=== PATIENT | female | born 1985 | race Caucasian/White ===

== ENCOUNTER → 2022-08-23 13:41 | Outpatient (BNVA) | payer OTHER, SELFPAY | PROVIDERS: PCP Internal Medicine; Visit Provider Student in an Organized Health Care Education/Training Program | DX: M79.7 Fibromyalgia (principal); M47.817 Spondylosis without myelopathy or radiculopathy, lumbosacral region | CPT/HCPCS: 99202 ==

== ENCOUNTER 2023-09-11 08:52 | Outpatient (AMB) | payer OTHER, SELFPAY ==
--- NOTE | 2023-09-11 08:56 | MHC.PC.OV ---
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 Patient also states it has been a while since she got diabetes checked. Patient states that shes been kind of hard of hearing lately and would like her ears checked. [employer] Required: No Accompanied by: Self / Same As Patient Allergies gabapentin [From NEURONTIN] Allergy (Unknown, Unverified 09/13/22 14:11) ANAPHYLAXIS midazolam [From VERSED] Allergy (Unknown, Unverified 09/13/22 14:11) ANAPHYLAXIS ketorolac [From Toradol] Adverse Reaction (Intermediate, Verified 09/13/22 14:11) Hives latex Adverse Reaction (Intermediate, Verified 09/13/22 14:11) Rash Sulfa (Sulfonamide Antibiotics) Adverse Reaction (Intermediate, Verified 09/11/23 09:24) Rash Tobacco use date assessed: 09/11/23 Dental Screening Dental Screen Date: 09/11/23 Did you have a dental visit in the last 12 months?: Yes Did you have a dental problem in the last 6 months where you did not have access to dental care?: No Was dental information given to patient?: Patient has dentist HPI HPI Comments History of Present Illness Details 37-year-old female presents to [facility]. She was last evaluated by her former PCP, [facility], in February 2023. She notes she has not had routine blood work done in over a year. She has past medical history significant for diabetes, hypertension, fibromyalgia, DJD of spine, IBS, bipolar, anxiety, depression, vitamin B deficiency, vitamin-D deficiency, and epilepsy. She has vagus nerve stimulator implanted in her left upper chest for epilepsy. She is followed by neurology at [facility] and requests a referral to [facility] neurology. She is also followed by [facility] GI and requests a referral to [facility] GI related to IBS. She notes that she is followed by a psychiatrist and therapist at [facility]. She sees her psychiatrist every three months and her therapist weekly. Her psychiatrists manages her psychotropic medications. She was followed by [facility] Rheumatology at [facility]. She has not seen a specialist for her DJD. She notes that she generally makes healthy dietary changes and walks daily for exercise. She states she lost 18 lb in the past 3 months. She wants to be referred to weight management. She notes that she was on metformin but experienced diarrhea, therefore, the medication was discontinued. [facility] Medical History (Updated 09/11/23 @ 12:01 by Preeti Souza CNP) Memory loss due to medical condition Hypertension High cholesterol C. difficile colitis Neuroforaminal stenosis of lumbar spine Hidradenitis suppurativa Degenerative joint disease of spine Bipolar disorder Depression Anxiety Type 2 diabetes mellitus Epilepsy Fibromyalgia, primary Migraine Surgical History (Updated 09/11/23 @ 09:34 by Harper Shannon [facility]) Status post surgical removal of malignant neoplasm of skin Status post placement of VNS (vagus nerve stimulation) device History of eye surgery Hx of endoscopy History of laparoscopic appendectomy H/O wisdom tooth extraction Hx of tubal ligation Hx of tonsillectomy History of total hysterectomy with bilateral salpingo-oophorectomy (BSO) Hx of colonoscopy Hx laparoscopic cholecystectomy History of fundoplication Hx of section Family History (Updated 09/11/23 @ 09:35 by Harper Shannon [facility]) Paternal Grandmother Rheumatoid arthritis Thyroid cancer Maternal Grandmother Arthritis Myocardial infarction Ovarian cyst Thyroid disease Cancer Paternal Uncle Colon cancer Mother Ovarian cyst Father Diabetes Depression Hypertension High cholesterol Skin cancer Maternal Grandfather FH: prostate cancer Paternal Grandfather Bipolar 1 disorder Social History Housing: Other ([place]) Patient Tobacco Use Status: Former Tobacco user e-Cigarette/Vaping Use: Never Used service: No Current occupational status: disabled Cognitive needs: No Hearing needs: Yes Vision needs: No Questionnaire PHQ-9 Over the last 2 weeks, how often have you been bothered by any of the following problems? 1. Little interest or pleasure in doing things: several days 2. Feeling down, depressed, or hopeless: several days 3. Trouble falling or staying asleep, or sleeping too much: several days 4. Feeling tired or having little energy: several days 5. Poor appetite or overeating: several days 6. Feeling bad about yourself - or that you are a failure or have let yourself or your family down: several days 7. Trouble concentrating on things, such as reading the newspaper or watching television: several days 8. Moving or speaking so slowly that other people could have noticed. Or the opposite - being so fidgety or restless that you have been moving around a lot more than usual: several days 9. Thoughts that you would be better off or of hurting yourself in some way: several days Total score: 9 Depression Screening Interpretation: Positive Depression Screening Follow-up: Existing condition and In treatment Depression Screening Done: Yes [id number] - PHQ-9 Billing: Yes Source: Developed by Drs. Ronnie Pelayo, Isabella Yadav, Jose A Can and colleagues, with an educational darline from [employer]. Thrive Questionnaire Date Thrive assessed: 09/11/23 I am a: Patient What is your living situation today?: I have a steady place to live Within the past 12 months, did the food you bought not last and you didn't have the money to get more?: Never true Within the past 12 months, did you worry whether your food would run out before you got money to buy more?: Never true Do you have trouble paying for medicines?: No Do you have trouble getting transportation to medical appointments?: Yes Do you have trouble paying your heating and electricity bill?: No Do you have trouble taking care of your child, family member or friend?: No Do you have trouble with day-to-day activities such as bathing, preparing meals, shopping, managing finances, etc.?: No Are you currently unemployed and looking for a job?: No Are you interested in more education?: No Please select the resources that you would like help with: None CONCEPCION-7 AMB Questionnaire CONCEPCION-7 Date CONCEPCION - 7 assessed: 09/11/23 Feeling nervous, anxious, or on edge: 1 = Several days Not being able to stop or control worryin = Several days Worrying too much about different things: 1 = Several days Trouble relaxin = Several days Being so restless that it is hard to sit still: 1 = Several days Becoming easily annoyed or irritable: 1 = Several days Feeling afraid as if something awful might happen: 1 = Several days Total CONCEPCION-7 score (0-4 normal; 5-9 mild; 10-14 moderate; 15-21 severe): 7 Source: Developed by Drs. Ronnie Pelayo, Isabella Yadav, Jose A Can and colleagues, with an educational darline from [employer]. CONCEPCION-7 Assessment Billing CONCEPCION-7 Assessment Tool: CONCEPCION-7 Assessment 96072 Review of Systems Const Details: Const Denies chills, Denies fatigue, Denies fever(s), Denies headache(s) and Denies weakness ENT Denies dizziness and Denies headache(s) Card Denies chest pain, Denies lightheadedness, Denies dyspnea and Denies other (Palpitations) Resp Denies cough, Denies dyspnea, Denies wheezing and Denies other ( shortness of breath) GI Denies abdominal pain, Denies melena, Denies hematochezia, Denies change in bowel habits, Denies dyspepsia and Denies nausea Denies hematuria and Denies dysuria Musc Denies abnormal gait, Denies myalgias, Denies arthralgias, Denies numbness and Denies tingling Skin/Breast Denies rash, Denies unusual bruising and Denies wounds Neuro Denies abnormal gait, Denies dizziness, Denies headache(s), Denies memory loss, Denies numbness, Denies Sensory deficit (Neuro), Denies tingling and Denies weakness Psych Denies anxiety, Denies depression, Denies memory loss Endo Denies cold intolerance, Denies fatigue, Denies heat intolerance, Denies polydipsia and Denies polyuria Aller/Immun Denies wheezing Physical exam (Primary Care) Vital Signs: Last Vital Signs Temp 97.6 F 09/11/23 08:59 Pulse 99 09/11/23 08:59 Resp 13 09/11/23 08:59 BP 128/78 09/11/23 08:59 Pulse Ox 98 09/11/23 08:59 Oxygen Delivery Method Room Air 09/11/23 08:59 BMI result Body Mass Index 52.9 Tobacco/Smoking Status: Tobacco use Status Tobacco use date assessed 09/11/23 09/11/23 09:26 Patient Tobacco Use Status Former Tobacco user 09/11/23 08:58 e-Cigarette/Vaping Use Never Used 09/11/23 09:26 PHQ-9: PHQ-9 Score PHQ-9: Total score 9 09/11/23 09:43 Depression Screening Interpretation: Positive Depression Screening Follow-up: Existing condition and In treatment Thrive Assessment: Date of Thrive Assessment Date Thrive assessed 09/11/23 09/11/23 09:28 Const Other: General: no acute distress and well developed Nutritional Appearance: well nourished Orientation/consciousness: patient oriented x3 HENMT Head is normocephalic Impacted cerumen of both ears occluding the TMs Nasal turbinates and oropharynx are pink and moist Sinuses are nontender with palpation No auricular or cervical lymphadenopathy Eyes General: appearance normal, both eyes and all related structures Pupils: Equal, round and reactive pupils present EOM: EOMs intact bilaterally Resp Effort & Inspection: normal respiratory effort Auscultation: clear to auscultation bilaterally Cardio Rate: regular rate Rhythm: regular rhythm Heart sounds: S1 normal heart sound present, S2 normal heart sound present, no gallops, no murmurs and no rubs GI Palpation (GI): No Abdominal aortic bruit present, Soft to palpation, nontender, No hepatosplenomegaly present and No Rebound tenderness present Auscultation: normal bowel sounds General: Yes no CVA tenderness Back/Spine/Pelvis Back: no CVA tenderness Cervical Spine: cervical ROM normal and No Cervical spine tenderness Thoracic/Lumbar Spine: thoraco-lumbar ROM normal, No pain with thoraco-lumbar ROM, No thoracic spinal tenderness and No lumbar spinal tenderness Extrem General: Yes normal to inspection, No edema and No calf tenderness Skin General: warm and dry. Normal skin color. Normal skin turgor Lesions: Skin tags to upper chest, back, and anterior and posterior neck Rashes: no rashes Trauma: no lacerations or abrasions Wounds: no wounds Nails: normal Neuro General: patient oriented x3, gait normal and no focal neuro deficit Cranial nerves: Yes Equal, round and reactive pupils present Cognition (Neuro): normal cognition Gait exam (Neuro): Normal gait present Sensory Exam: No Sensory deficit (Neuro) Psych Appearance: grossly normal Affect: normal affect Attitude: cooperative Thought process: Normal thought process present Results AMB Hemoglobin A1c AMB Hemoglobin A1c 8.8 % Last Edit by Harper Shannon CMA on 09/11/23 09:37 Results Reviewed Results Reviewed: Laboratory Last Values Hgb A1c (Clinic) 8.8 % (4.0-6.0) H 09/11/23 09:36 Assessment and Plan Assessment & Plan (1) Hypertension: Code(s): I10 - Essential (primary) hypertension Qualifiers: Hypertension type: primary hypertension Qualified Code(s): I10 - Essential (primary) hypertension Plan: BP is 128/78, within goal of less than 130/70 Continue to take Lisinopril as prescribed Low sodium diet encouraged Will continue to monitor Follow up in 1 month or return soon with symptoms or concerns Verbalized understanding and agreed with the treatment plan (2) Type 2 diabetes mellitus: Code(s): E11.9 - Type 2 diabetes mellitus without complications Qualifiers: Diabetes mellitus usp insulin use: without usp use Diabetes mellitus complication status: without complication Qualified Code(s): E11.9 - Type 2 diabetes mellitus without complications Plan: A1c is 8.8% today, above goal of less than 7.0% Trulicity increased from 0.75 mg weekly to 1.5 mg weekly. Administer as prescribed Continue with Lantus 34 units every night ADA diet and routine exercise encouraged Advised to monitor fasting and random glucose daily, record readings, and bring to next appointment Follow-up in 1 month or return sooner with symptoms or concerns Verbalized understanding and agreed with treatment plan. (3) High cholesterol: Code(s): E78.00 - Pure hypercholesterolemia, unspecified Plan: Continue to take fenofibrate as prescribed Will check lipid panel and make changes to her care plan as needed Advised to limit foods high in saturated fat and avoid foods high trans fat Routine exercise encouraged Verbalized understanding and agreed with treatment plan. (4) Epilepsy: Code(s): G40.909 - Epilepsy, unspecified, not intractable, without status epilepticus Plan: She has vagus nerve stimulator implanted in her left upper chest for epilepsy. She is also on lacosamide 150 mg twice Daily She is followed by neurology at [facility] and requests a referral to Dr. Reynolds, [facility] neurology, whom she previously followed. Continue with current treatment regimen Referred to [facility]. Reynolds at [facility] Return with symptoms or concerns Verbalized understanding and agreed with treatment plan. (5) Migraine: Code(s): G43.909 - Migraine, unspecified, not intractable, without status migrainosus Plan: Reports history of migraine. On naratriptan Continue with current treatment regimen Referred to Dr. Reynolds, [facility] Return with symptoms or concerns Verbalized understanding and agreed with treatment plan. (6) Fibromyalgia, primary: Code(s): M79.7 - Fibromyalgia Plan: Reports history of fibromyalgia, was followed by [facility] Rhe[facility] She takes ibuprofen and cyclobenzaprine with some improvement Advised to continue with current treatment regimen Cold/Warm compresses encouraged Return with worsening or new symptoms Verbalized understanding and agreed with treatment plan. (7) Degenerative joint disease of spine: Code(s): M47.9 - Spondylosis, unspecified Qualifiers: Spinal osteoarthritis complication: without myelopathy or radiculopathy Spinal region: lumbosacral Qualified Code(s): M47.817 - Spondylosis without myelopathy or radiculopathy, lumbosacral region Plan: Reports history of DJD of spine with constant pain throughout her spine. She has never been evaluated by career placement specialist Cervical, thoracic, and lumbar spine tenderness to palpation She takes ibuprofen and cyclobenzaprine with some improvement Advised to continue with current treatment regimen Cold/Warm compresses encouraged Referred to [facility] [place] Return with worsening or new symptoms Verbalized understanding and agreed with treatment plan. (8) Pernicious anemia: Code(s): D51.0 - Vitamin B12 deficiency anemia due to intrinsic factor deficiency Plan: Reports history of pernicious anemia. She is on vitamin B12 1000 mcg injection monthly Continue with current regimen Will check vitamin B12 and folate levels and make changes to her care plan as needed Verbalized understanding and agreed with treatment plan. (9) Vitamin D deficiency: Code(s): E55.9 - Vitamin D deficiency, unspecified Plan: Reports history of vitamin-D deficiency. She is on vitamin D3 2000 units daily Continue with current regimen Will check vitamin D3 level and make changes to her care plan as needed Verbalized understanding and agreed with treatment plan. (10) Anxiety: Code(s): F41.9 - Anxiety disorder, unspecified Plan: CONCEPCION-7 in PHQ-9 scores revealed mild anxiety and depression Risperidone, lorazepam, clonazepam, and escitalopram as prescribed Routine exercise encouraged Continue follow-up with psychiatrist and therapist as planned Return with worsening or new symptoms Verbalized understanding and agreed with treatment plan (11) Depression: Code(s): F32.A - Depression, unspecified Plan: As above (12) Bipolar disorder: Code(s): F31.9 - Bipolar disorder, unspecified Plan: As above (13) Impacted cerumen of both ears: Code(s): H61.23 - Impacted cerumen, bilateral Plan: Impacted cerumen of both ears occluding the TMs Reports decreased hearing of both ears. This is likely due to cerumen impaction Advised to schedule appointment to have cerumen removed Verbalized understanding and agreed with the plan. (14) IBS (irritable bowel syndrome): Code(s): K58.9 - Irritable bowel syndrome without diarrhea Plan: She request a referral to [facility] GI related to history of IBS. No acute symptoms Continue with dicyclomine, loperamide, and omeprazole as prescribed Referred to [facility] [place] Return with symptoms or concerns Verbalized understanding and agreed with treatment plan. (15) Morbid obesity with BMI of 50.0-59.9, adult: Code(s): E66.01 - Morbid (severe) obesity due to excess calories; Z68.43 - Body mass index [BMI] 50.0-59.9, adult Plan: She notes that she generally makes healthy dietary changes and walks daily for exercise. She states she lost 18 lb in the past 3 months. She currently weighs 348 lb, BMI is 52.9 Healthy diet and routine exercise instructed and encouraged Referred to [facility] [place] management Return with symptoms or concerns Verbalized understanding and agreed with treatment plan. (16) Laboratory tests ordered as part of a complete physical exam (CPE): Code(s): Z00.00 - Encounter for general adult medical examination without abnormal findings Plan: Fasting labs ordered as part of a complete physical exam. Advised to fast for at least 10 hours before getting labs drawn. May drink water Verbalized understanding and agreed with treatment plan. Orders: Orders TSH reflex Free T4 Today Z00.00 - Encounter for general adult medical examination without abnormal findings UA CC w/rflx Micro + Cult Today Z00.00 - Encounter for general adult medical examination without abnormal findings AMB Hemoglobin A1c Today Z13.9 - Encounter for screening, unspecified Vitamin D 25-OH Total Today E55.9 - Vitamin D deficiency, unspecified Complete Blood Count Auto Diff Today Z00.00 - Encounter for general adult medical examination without abnormal findings Comprehensive Coleman. Panel Fast Today Z00.00 - Encounter for general adult medical examination without abnormal findings Lipid Panel Today Z00.00 - Encounter for general adult medical examination without abnormal findings Vitamin B12 and Folate Today D51.0 - Vitamin B12 deficiency anemia due to intrinsic factor deficiency Referrals Neurology Referral G40.909 - Epilepsy, unspecified, not intractable, without status epilepticus, G43.909 - Migraine, unspecified, not intractable, without status migrainosus Gastroenterology Referral K58.9 - Irritable bowel syndrome without diarrhea Neurosurgery Referral M47.9 - Spondylosis, unspecified Medications: New syringe with needle, safety As directed 100 ea 0RF dulaglutide (Trulicity) 1.5 mg (0.5 mL) subcut QWEEK 2 mL 3RF 4 weeks cyanocobalamin (vitamin B-12) 1,000 mcg IM Q4W 2 mL 0RF 30 days omeprazole 40 mg PO DAILY 90 caps 1RF 90 days pen needle, diabetic (BD Ultra-Fine Short Pen Needle) As directed 100 ea 3RF promethazine 10-20 MLby mouth every 6 hours as needed(nausea). 12.5 mg (10 mL) PO Q6H PRN 473 mL 0RF nausea and vomiting Coding Level of Care Code New Pt Level 5 (43659) Diagnoses Primary hypertension I10 Hypertension type: primary hypertension Type 2 diabetes mellitus without complication, without long-term current use of insulin E11.9 Diabetes mellitus long term care phlebotomist insulin use: without long term care phlebotomist use Diabetes mellitus complication status: without complication High cholesterol E78.00 Epilepsy G40.909 Migraine G43.909 Fibromyalgia, primary M79.7 Spondylosis of lumbosacral region without myelopathy or radiculopathy M47.817 Spinal osteoarthritis complication: without myelopathy or radiculopathy Spinal region: lumbosacral Pernicious anemia D51.0 Vitamin D deficiency E55.9 Anxiety F41.9 Depression F32.A Bipolar disorder F31.9 Impacted cerumen of both ears H61.23 IBS (irritable bowel syndrome) K58.9 Morbid obesity with BMI of 50.0-59.9, adult E66.01; Z68.43 Laboratory tests ordered as part of a complete physical exam (CPE) Z00.00 Additional Codes CONCEPCION-7 Assessment Billing - CONCEPCION-7 Assessment Tool: CONCEPCION-7 Assessment 21199 ([id number])
[2023-09-11 08:59] VITALS: BP 128/78; PULSE 99; RESP 13; TEMP 36.4; O2SAT 98; BMI 52.9
== END 2023-09-11 10:02 | disposition home or self-care (01) ==
PROVIDERS: PCP Nurse Practitioner Family; Visit Provider Nurse Practitioner Family
DX: I10 Essential (primary) hypertension (principal); E11.9 Type 2 diabetes mellitus without complications; G40.909 Epilepsy, unspecified, not intractable, without status epilepticus; F31.9 Bipolar disorder, unspecified; E78.00 Pure hypercholesterolemia, unspecified; G43.909 Migraine, unspecified, not intractable, without status migrainosus; M79.7 Fibromyalgia; M47.817 Spondylosis without myelopathy or radiculopathy, lumbosacral region; D51.0 Vitamin B12 deficiency anemia due to intrinsic factor deficiency; E55.9 Vitamin D deficiency, unspecified; F41.9 Anxiety disorder, unspecified; F32.A Depression, unspecified
CPT/HCPCS: 83036; 99205

== ENCOUNTER 2023-10-13 08:33 | Emergency (ER) | payer OTHER, SELFPAY ==
[2023-10-13 08:58] VITALS: BP 137/76; PULSE 87; RESP 16; TEMP 37; O2SAT 98; BMI 54.0
[2023-10-13 10:27] LABS: MANUAL DIFF FLAG NO
[2023-10-13 10:35] LABS: Basophils Absolute Auto 0.1 X10*3/uL (0.0-0.2); Basophils Percent Auto 0.8 % (0-2); Eosinophils Absolute Auto 0.3 X10*3/uL (0.0-0.4); Hematocrit 37.5 % (37.0-47.0); Hemoglobin 12.1 g/dl (12.0-16.0); Imm Gran Abs Auto 0.08 X10*3/uL (0.00-0.03); Imm Gran Pct Auto 0.9 % (0.0-0.4); Mean Corpuscular HGB Conc 32.3 g/dl (31.0-35.0); Mean Corpuscular Hemoglobin 27.6 pg (27.0-33.0); Mean Corpuscular Volume 85.4 fL (80.0-98.0); Mean Platelet Volume 9.9 fL (9.4-12.3); Monocytes Absolute Auto 0.5 X10*3/uL (0.1-1.2); Monocytes Percent Auto 5.8 % (2-11); Neutrophils Absolute Auto 5.5 x10*3/uL (2.0-8.3); Neutrophils Percent Auto 65.5 % (45-73); Platelet Count 264 X10*3/uL (160-400); Red Blood Count 4.39 X10*6/uL (4.20-5.50); Red Cell Distribution Width 13.5 % (11.0-16.0); White Blood Count 8.5 X10*3/uL (4.8-10.8)
[2023-10-13 10:47] LABS: Anion Gap 13 (12-20); Blood Urea Nitrogen 9 mg/dL (9-16); Calcium 10.2 mg/dL (8.4-10.2); Carbon Dioxide 25 mmol/L (22-29); Chloride 105 mmol/L (96-108); Creatinine Clr Calc Pharmacy 160.7; Estimated Glomerular Filt Rate > 60; Glucose Random 137 mg/dL (60-115); Potassium 4.3 mmol/L (3.3-5.1); Sodium 139 mmol/L (135-145)
[2023-10-13 11:20] VITALS: BP 132/49; PULSE 104; RESP 20; TEMP 36.4; O2SAT 94
--- NOTE | 2023-10-13 11:38 | ED_ITS ---
HPI - Abdominal Pain General Chief Complaint: Abdominal Pain Stated Complaint: IBS/Vomiting Time Seen by Provider: 10/13/23 11:29 Source: patient Mode of arrival: ambulatory Limitations: no limitations History of Present Illness HPI narrative: Patient states she has IBS and cdiff and needs to be admitted. No vomiting although she states that she cant tolerate her oral medications MD elicited complaint: abdominal pain Pertinent past history: other (colitis) Onset (ago): day(s) Pain Consistency: constant Severity: moderate Quality: cramping Related Data Home Medications Medication Instructions Recorded Confirmed cyclobenzaprine 10 mg tablet 10 mg PO TID 08/23/22 08/23/22 dicyclomine 20 mg tablet 20 mg PO TID 08/23/22 08/23/22 escitalopram oxalate 10 mg tablet 10 mg PO DAILY 08/23/22 08/23/22 (Lexapro) lacosamide 150 mg tablet 150 mg PO BID 08/23/22 08/23/22 loperamide 2 mg tablet 2 mg PO Q6H PRN 08/23/22 08/23/22 clonazepam 0.5 mg tablet 0.5 mg PO DAILY PRN 09/13/22 albuterol sulfate 90 mcg/actuation inhalation 09/11/23 aerosol inhaler (Ventolin HFA) cholecalciferol (vitamin D3) 50 50 mcg PO DAILY 09/11/23 mcg (2,000 unit) capsule fenofibrate nanocrystallized 145 mg PO 09/11/23 mg tablet ibuprofen 600 mg tablet 600 mg PO Q8H PRN 09/11/23 insulin glargine 100 unit/mL (3 34 unit subcut QPM 09/11/23 mL) subcutaneous pen (Lantus Solostar U-100 Insulin) lorazepam 1 mg tablet 1 mg PO DAILY PRN 09/11/23 melatonin 3 mg tablet 6 mg PO BEDTIME PRN 09/11/23 naratriptan 1 mg tablet 1 mg PO DAILY PRN 09/11/23 risperidone 3 mg tablet 3 mg PO BEDTIME 09/11/23 Previous Rx's Medication Instructions Recorded cyanocobalamin (vitamin B-12) 1,000 mcg IM Q4W 30 days #2 mL 09/11/23 1,000 mcg/mL injection solution dulaglutide 1.5 mg/0.5 mL 1.5 mg (0.5 mL) subcut QWEEK 4 09/11/23 subcutaneous pen injector weeks #2 mL (Trulicity) omeprazole 40 mg capsule,delayed 40 mg PO DAILY 90 days #90 caps 09/11/23 release pen needle, diabetic 31 gauge x #100 ea 09/11/23 5/16 (BD Ultra-Fine Short Pen Needle) promethazine 6.25 mg/5 mL oral 12.5 mg (10 mL) PO Q6H PRN nausea 09/11/23 syrup and vomiting #473 mL syringe with needle, safety 3 mL #100 ea 09/11/23 23 gauge x 1 lisinopril 40 mg tablet 40 mg PO DAILY 90 days #90 tabs 09/25/23 pregabalin 100 mg capsule 200 mg (2 x 100 mg) PO BID 30 days 09/25/23 #120 caps ondansetron 4 mg disintegrating 4 mg PO Q8H 4 days #12 tabs 10/13/23 tablet Allergies Allergy/AdvReac Type Severity Reaction Status Date / Time gabapentin [From NEURONTIN] Allergy Unknown ANAPHYLAXIS Unverified 09/13/22 14:11 midazolam [From VERSED] Allergy Unknown ANAPHYLAXIS Unverified 09/13/22 14:11 ketorolac [From Toradol] AdvReac Intermediate Hives Verified 09/13/22 14:11 latex AdvReac Intermediate Rash Verified 09/13/22 14:11 Sulfa (Sulfonamide AdvReac Intermediate Rash Verified 09/11/23 09:24 Antibiotics) Review of Systems Review of Systems Yes all other systems are reviewed and are negative Denies Sensory deficit (Neuro) PMFSH Past Medical History Medical History Memory loss due to medical condition Hypertension High cholesterol C. difficile colitis Neuroforaminal stenosis of lumbar spine Hidradenitis suppurativa Degenerative joint disease of spine Bipolar disorder Depression Anxiety Type 2 diabetes mellitus Epilepsy Fibromyalgia, primary Migraine Surgical History Status post surgical removal of malignant neoplasm of skin Status post placement of VNS (vagus nerve stimulation) device History of eye surgery Hx of endoscopy History of laparoscopic appendectomy H/O wisdom tooth extraction Hx of tubal ligation Hx of tonsillectomy History of total hysterectomy with bilateral salpingo-oophorectomy (BSO) Hx of colonoscopy Hx laparoscopic cholecystectomy History of fundoplication Hx of section Family History Family History Paternal Grandmother Rheumatoid arthritis Thyroid cancer Maternal Grandmother Arthritis Myocardial infarction Ovarian cyst Thyroid disease Cancer Paternal Uncle Colon cancer Mother Ovarian cyst Father Diabetes Depression Hypertension High cholesterol Skin cancer Maternal Grandfather FH: prostate cancer Paternal Grandfather Bipolar 1 disorder Social History Housing: Other (Trailer) Patient Tobacco Use Status: Former Tobacco user e-Cigarette/Vaping Use: Never Used Advance Directives: No service: No Current occupational status: disabled Cognitive needs: No Hearing needs: Yes Vision needs: No Physical Exam ED Vital Signs: Vital Signs - 24 hr 10/13/23 08:58 10/13/23 11:20 10/13/23 12:04 Temperature 98.6 F 97.6 F Pulse Rate 87 104 H 95 Respiratory Rate 16 20 15 Blood Pressure 137/76 132/49 L 155/94 H Pulse Oximetry 98 94 96 Oxygen Delivery Method Room Air Room Air Room Air BMI result Body Mass Index 54.0 Const Other: obese female in no acute distress Orientation/consciousness: oriented to person and patient oriented x3 Limitations: no limitations HENMT Head: Yes normal to inspection Ears: external ears normal General nose exam: Normal external nose present Mouth: Normal oral and palatal mucosa present and oropharynx normal Throat: Yes posterior oropharynx normal Eyes General: appearance normal, both eyes and all related structures Neck Neck: Yes normal visual inspection Chest Chest palpation & inspection: normal inspection of the chest Resp Auscultation: clear to auscultation bilaterally Cardio Jugular venous distension: no JVD Rate: regular rate Rhythm: regular rhythm Heart sounds: S1 normal heart sound present and S2 normal heart sound present GI Inspection: Yes normal to inspection Palpation (GI): Soft to palpation, nontender and No hepatosplenomegaly present Auscultation: normal bowel sounds General: Yes no CVA tenderness Back/Spine/Pelvis Back: no CVA tenderness Skin General skin exam: no rashes or lesions noted Neuro General: oriented to person and patient oriented x3 Cranial nerves: Yes CN's II-XII intact bilaterally Motor exam (neuro): 5/5 motor strength present throughout Sensory Exam: No Sensory deficit (Neuro) Extrem General: Yes normal to inspection Psych Appearance: grossly normal Course Reevaluation(s) Reevaluation #1: Patient states she cant produce a bowel movement. Will send home with orders for GI panel and cdiff and discharge on zofran. Labs at this point look normal and abdominal exam normal with normal vitals Time: 13:25 Medical Decision Making Differential Diagnosis Differential Diagnoses: The differential diagnosis associated with the presentation includes (IBS flair, cdiff colitis, viral colitis were all considered) Admission/Observation Consideration of admission/observation: Escalation of care including admission/observation considered (upon arrival patient was considered for admission) Lab Data MDM Lab Attestation statement: I reviewed the patient's lab results. 10/13/23 10:16 10/13/23 10:16 Labs: Lab Results 10/13/23 10/13/23 Range/Units 10:16 11:59 WBC 8.5 (4.8-10.8) X10*3/uL RBC 4.39 (4.20-5.50) X10*6/uL Hgb 12.1 (12.0-16.0) g/dl Hct 37.5 (37.0-47.0) % MCV 85.4 (80.0-98.0) fL MCH 27.6 (27.0-33.0) pg MCHC 32.3 (31.0-35.0) g/dl RDW 13.5 (11.0-16.0) % Plt Count 264 (160-400) X10*3/uL MPV 9.9 (9.4-12.3) fL Immature Gran % (Auto) 0.9 H (0.0-0.4) % Neut % (Auto) 65.5 (45-73) % Lymph % (Auto) 24.0 (20-40) % [place] % (Auto) 5.8 (2-11) % Eos % (Auto) 3.0 (0-4) % Baso % (Auto) 0.8 (0-2) % Lymph # (Auto) 2.0 (1.2-4.9) X10*3/uL [place] # (Auto) 0.5 (0.1-1.2) X10*3/uL Eos # (Auto) 0.3 (0.0-0.4) X10*3/uL Baso # (Auto) 0.1 (0.0-0.2) X10*3/uL Abs Immat Gran (auto) 0.08 H (0.00-0.03) X10*3/uL Absolute Neuts (auto) 5.5 (2.0-8.3) x10*3/uL Absolute Nucleated RBC 0.000 (0.0-0.012) X10*3/uL Nucleated RBC % (auto) 0.0 (0.0-0.2) /100WBC Sodium 139 (135-145) mmol/L Potassium 4.3 (3.3-5.1) mmol/L Chloride 105 (96-108) mmol/L Carbon Dioxide 25 (22-29) mmol/L Anion Gap 13 (12-20) BUN 9 (9-16) mg/dL Creatinine 0.77 (0.5-1.4) mg/dL Estim Creat Clear Calc 160.7 Estimated GFR > 60 Random Glucose 137 H (60-115) mg/dL Calcium 10.2 (8.4-10.2) mg/dL Total Bilirubin 0.3 (0.0-1.0) mg/dL Direct Bilirubin 0.1 (0.0-0.5) mg/dL AST 26 (5-31) U/L ALT 28 (0-31) U/L Alkaline Phosphatase 82 (39-117) U/L Total Protein 7.1 (6.5-8.0) g/dL Albumin 4.0 (3.5-5.0) g/dL Lipase 12 (8-78) U/L Urine Color Yellow Urine Appearance Turbid Urine pH 5.5 (5.0-9.0) Ur Specific [place] 1.015 (1.005-1.025) Urine Protein Negative (Neg-Trace) mg/dL Urine Glucose (UA) Negative (Negative) mg/dL Urine Ketones Negative (Negative) mg/dL Urine Blood Negative (Negative) Urine Nitrite Negative (Negative) Ur Leukocyte Esterase Small (1+) H (Negative) Urine RBC 3-5 H (0-2) /HPF Urine WBC 21-50 H (0-5) /HPF Ur Squamous Epith Cells >20 (0-2) /HPF Urine Bacteria 4+ (None Seen) Hyaline Casts 3-5 (0-2) /LPF Tests considered The following testing was considered but not selected: CT of abdomen was considered but patient has normal vitals soft abdomen, normal labs. Prescription Management I considered prescription management with: Antibiotic (at this time no evidence of bacterial infection) Social Determinants Patient?s care significantly limited by Social Determinants of Health including: Other Social Determinant of Health (psychiatric illness/ anxiety) Medications Administered Discontinued Medications Generic Name Dose Route Start Last Admin Trade Name Freq PRN Reason Stop Dose Admin Acetaminophen 975 mg 10/13/23 11:39 10/13/23 11:52 Acetaminophen 325 Mg Tablet PO 10/13/23 11:40 975 mg ONCE ONE Administration Lacosamide 150 mg 10/13/23 11:42 10/13/23 11:52 Lacosamide 100 Mg Tablet PO 10/13/23 11:43 150 mg ONCE ONE Administration Ondansetron HCl 4 mg 10/13/23 11:39 10/13/23 11:52 Ondansetron Odt 4 Mg Tab.Rapdis TRANSLINGU 10/13/23 11:40 4 mg ONCE ONE Administration Discharge Plan Discharge Clinical Impression: Diarrhea, Enteritis Patient Disposition: Home, Self-Care Instructions: Acute Diarrhea (ED), Enteritis (ED) Prescriptions: New ondansetron 4 mg tablet,disintegrating 4 mg PO Q8H 4 Days Qty: 12 0RF No Action lisinopril 40 mg tablet 40 mg PO DAILY 90 Days Qty: 90 1RF pregabalin 100 mg capsule 200 mg PO BID 30 Days Qty: 120 0RF fenofibrate nanocrystallized 145 mg tablet PO ibuprofen 600 mg tablet 600 mg PO Q8H PRN albuterol sulfate [Ventolin HFA] 90 mcg/actuation HFA aerosol inhaler inhalation cholecalciferol (vitamin D3) 50 mcg (2,000 unit) capsule 50 mcg PO DAILY risperidone 3 mg tablet 3 mg PO BEDTIME lorazepam 1 mg tablet 1 mg PO DAILY PRN melatonin 3 mg tablet 6 mg PO BEDTIME PRN naratriptan 1 mg tablet 1 mg PO DAILY PRN Trulicity 1.5 mg/0.5 mL pen injector 1.5 mg subcut QWEEK 28 Days Qty: 2 3RF cyanocobalamin (vitamin B-12) 1,000 mcg/mL solution 1,000 mcg IM Q4W 30 Days Qty: 2 0RF omeprazole 40 mg capsule,delayed release(DR/EC) 40 mg PO DAILY 90 Days Qty: 90 1RF (DME) pen needle, diabetic [BD Ultra-Fine Short Pen Needle] 31 gauge x 5/16 needle See Rx Instructions .ROUTE .MEDSUPPLY Qty: 100 3RF Rx Instructions: As directed promethazine 6.25 mg/5 mL syrup 12.5 mg PO Q6H PRN (Reason: nausea and vomiting) Qty: 473 0RF Rx Instructions: 10-20 MLby mouth every 6 hours as needed(nausea). (DME) syringe with needle, safety 3 mL 23 gauge x 1 syringe See Rx Instructions .Route Qty: 100 0RF Rx Instructions: As directed cyclobenzaprine 10 mg tablet 10 mg PO TID escitalopram oxalate [Lexapro] 10 mg tablet 10 mg PO DAILY lacosamide 150 mg tablet 150 mg PO BID dicyclomine 20 mg tablet 20 mg PO TID loperamide 2 mg tablet 2 mg PO Q6H PRN clonazepam 0.5 mg tablet 0.5 mg PO DAILY PRN insulin glargine [Lantus Solostar U-100 Insulin] 100 unit/mL (3 mL) insulin pen 34 unit subcut QPM
--- OUTSIDE RECORDS SUMMARY | 2023-10-13 11:41 | XMS_ITS | Continuity of Care Document ---
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 Name Role Phone Christopher RIDDLE, Tom Choudhury Primary Care Physician [phone] Encounter [facility] Date(s): 06/30/23 - 07/30/23 [facility] [address], [address], [address] [place] [id number] Attending Physician: Josemanuel Galvez Admitting Physician: AdmtrJosemanuel Referring Physician: Admtr, Ar8 Allergies, Adverse Reactions, Alerts Substance Reaction Severity Status gabapentin Agitation Persistent Moderate Active sulfa drugs rash C/O: itching Persistent Severe Active Toradol C/O: a rash Active Versed 1 dyspnea aggitation throat closes up Persistent Severe Active Latex itchiness Active 1Does fine with Ativan, Valium, Klonopin Immunizations Given and Recorded Vaccine Date Status Refusal Reason pneumococcal 23-valent vaccine 1 08/26/22 Recorded pneumococcal 23-valent vaccine 04/10/17 Given [id number] 12y+ bivalent booster vax 2 08/26/22 Recorded SARS-CoV-2 (COVID-19) mRNA BNT-162b2 vac 10/19/21 Recorded SARS-CoV-2 (COVID-19) mRNA BNT-162b2 vac 04/07/21 Recorded SARS-CoV-2 (COVID-19) mRNA BNT-162b2 vac 03/17/21 Recorded influenza virus vaccine, inactivated 08/12/21 [place] rded 1Result Comment: .5ML IM/LD Lot [id number] [employer] D Exp 08.16.2023 [facility] [phone] 2Result Comment: .3Ml IM/ LD Lot [id number] Exp 10.01.2022 [facility] [phone] Medications Albuterol (Eqv-ProAir HFA) Inhalation, Every 6 hours, 0 Refills, Maintenance, 04/10/23 13:27:00 EDT, Partial fill upon patientrequest if the prescription is for a schedule II opioid drug. Start Date: 04/10/23 Status: Ordered dicyclomine 20 mg oral tablet 1 tablet, By Mouth, 3 times a day, # 90 tablet, 0 Refills, Maintenance, 07/02/23 13:53:00 EDT, [facility] STORE [id number], 173, cm, 05/07/23 13:17:00 EDT, Height, 163.7, kg, 05/07/23 13:17:00 EDT, Dry Weight Start Date: 07/02/23 Status: Ordered escitalopram 10 mg oral tablet 1 tablet = 10 mg, By Mouth, Daily in AM, Maintenance, 11/25/22 17:21:00 EST, Tablet, Partial fill upon patient request if the prescription is for a schedule II opioid drug. Start Date: 11/25/22 Status: Ordered fenofibrate 145 mg oral tablet 1 tablet = 145 mg, By Mouth, Daily in AM, 0 Refills, Maintenance, 02/08/23 10:17:00 EDT, Partial fill upon patient request if the prescription is for a schedule II opioid drug. Start Date: 02/08/23 Status: Ordered Flexeril 10 mg oral tablet 1, tablet, By Mouth, 3 times a day, PRN, Refills 0, Maintenance, for spasm, 04/04/22 22:32:00 EDT, Partial fill upon patient request if the prescription is for a schedule II opioid drug. Start Date: 04/04/22 Status: Ordered hydrOXYzine hydrochloride 25 mg oral tablet 1 tablet = 25 mg, By Mouth, 2 times a day, PRN for anxiety, # 40 tablet, 0 Refills, Maintenance, 04/10/23 13:26:00 EDT, Tablet, Partial fill upon patient request if the prescription is for a scheduleII opioid drug. Start Date: 04/10/23 Status: Ordered lacosamide 150 mg oral tablet See Instructions, TAKE 1 TABLET BY MOUTH TWICE A DAY, # 60 tablet, 1 Refills, Maintenance, 06/11/2313:31:00 EDT, [facility]/pharmacy #[id number], 173, cm, 05/07/23 13:17:00 EDT, Height, 163.7, kg, 05/07/23 13:17:00 EDT, Dry Weight Start Date: 06/11/23 Status: Ordered Lantus 100 u/ml subcutaneous solution = 38 units, Daily at bedtime, 0 Refills, Maintenance, 07/07/21 1:40:00 EDT, Solution, Partial fill upon patient request if the prescription is for a schedule II opioid drug. Start Date: 07/07/21 Status: Ordered lisinopril 40 mg oral tablet 1 tablet = 40 mg, By Mouth, Daily, # 30 tablet, 0 Refills, Maintenance, 04/10/23 13:27:00 EDT, Tablet, Partial fill upon patient request if the prescription is for a schedule II opioid drug. Start Date: 04/10/23 Status: Ordered loperamide 2 mg oral capsule 1, capsule, By Mouth, Every 4 hours, PRN, # 60 capsule, Refills 0, Tot. Refills 0, Maintenance, NEEDED FOR LOOSE STOOLS, 04/21/23 15:34:00 EDT, Route to Pharmacy Electronically, [facility]/pharmacy #[id number], 173, cm, 04/10/23 13:09:00 EDT, Height, 165, kg, 0... Start Date: 04/21/23 Status: Ordered Lyrica 50 mg oral capsule 1 capsule = 50 mg, By Mouth, 2 times a day, 0 Refills, Maintenance, 05/07/23 13:20:00 EDT, Partial fill upon patient request if the prescription is for a schedule II opioid drug. Start Date: 05/07/23 Status: Ordered Risperidone = 0.5 mg, By Mouth, Daily at bedtime, 0 Refills, Maintenance, 03/08/23 11:49:00 EDT, Partial fill upon patient request if the prescription is for a schedule II opioid drug. Start Date: 03/08/23 Status: Ordered risperiDONE 2 mg oral tablet 2 mg, 1, tablet, By Mouth, Daily at bedtime Start Date: 11/25/22 Status: Ordered rizatriptan 10 mg oral tablet See Instructions, TAKE 1 TABLET BY MOUTH ONCE NEEDED FOR MIGRAINE HEADACHES, MAY REPEAT IN 2 HOURS IF RESPONSE UNSATISFACTORY, # 12 tablet, 0 Refills, Maintenance, 07/28/23 8:45:00 EDT, [id number], 173, cm, 05/07/23 13:17:00 EDT, Height, 163.7... Start Date: 07/28/23 Status: Ordered Trulicity Pen 0.75 mg/0.5 mL subcutaneous solution 0.5 mL = 0.75 mg, Subcutaneous Injection, Every week, friday, 0 Refills, Maintenance, 03/08/23 11:42:00 EDT, Solution, Partial fill upon patient request if the prescription is for a schedule II opioid drug. Start Date: 03/08/23 Status: Ordered Vimpat 150 mg oral tablet 1 tablet = 150 mg, By Mouth, 2 times a day, MassPat checked., # 60 tablet, 1 Refills, Maintenance, 04/09/23 7:29:00 EDT, Tablet, [id number], 173, cm, 03/21/23 13:36:00 EDT, Height, 161, kg, 03/21/23 13:36:00 EDT, Dry Weight Start Date: 04/09/23 Stop Date: 06/08/23 Status: Ordered Problem List Condition Confirmation Course Effective Dates Status Health St atus Informant Depression Confirmed Active Intractable diarrhea Confirmed Active Epileptic seizures Confirmed Active Morbid obesity Confirmed Active Seizure Confirmed Active Severe obesity Confirmed Active Social History Social History Type Response Smoking Status Former smoker, quit more than 30 days ago; Interested in cessation: Yes; Patient wants NRT during admission Yes; Type: Cigarettes; Total pack years: 8; Started at age: 18; entered on: 05/06/22 Sex Patient Care team information Care Team Personnel Name: Michelle Fox RN Position: S RN Member Role: Primary Care Nurse Name: Nyasia Cadet NP Position: S Associate Professional Member Role: Primary Care Nurse Address: Address: [address] [place] [id number] Name: Roni Hunt RN Position: S RN Member Role: Primary Care Nurse Name: Roya Jaramillo RN Position: S RN Member Role: Primary Care Nurse Name: My Fonseca NP Position: S Associate Professional Member Role: Lifetime Consulting Provider Address: Address: [address] [place] [address] [address] [facility] [place] [address]- [place] Name: Gomez Daugherty RN Position: [facility] RN Member Role: Primary Care Nurse Name: Paolo Patterson RN Position: [facility] RN Member Role: Primary Care Nurse Name: Clarisa Mederos RN Position: [facility] RN Member Role: Primary Care Nurse Name: Loreta Pitts RN Position: [facility] RN Member Role: Primary Care Nurse Name: Tom White MD Position: Reference Physician Member Role: PCP Address: Address: [address] [place] [address] [place] [address]- [place] Name: Philomena Benavides RN Position: [facility] RN Member Role: Primary Care Nurse Name: Cortney Benavides RN Position: [facility] RN Member Role: Primary Care Nurse Name: Gloria Mims RN Position: [facility] RN Member Role: Primary Care Nurse Name: Stefany Lewis RN Position: [facility] ED RN W/OE and Tasks Member Role: Primary Care Nurse Name: Chiquita Cuevas RN Position: [facility] RN Member Role: Primary Care Nurse Name: Stefany Hamilton RN Position: [facility] Size Tester Member Role: Primary Care Nurse Name: Dee Davila RN Position: [facility] RN Member Role: Primary Care Nurse Name: Natalie Lopez RN Position: [facility] RN Member Role: Primary Care Nurse Name: Juan Diego Anguiano RN Position: [facility] RN Member Role: Primary Care Nurse Address: Address: [address] [place] [id number]- [place] Name: Iwona Jones RN Position: [facility] RN Member Role: Primary Care Nurse Name: Angelika Villa RN Position: [facility] RN Member Role: Primary Care Nurse Name: Brandi Holman RN Position: [facility] OB RN Member Role: Primary Care Nurse Name: Candi Moore RN Position: [facility] SN RN Member Role: Primary Care Nurse Name: Stacy Yadav RN Position: [facility] Size Tester Member Role: Primary Care Nurse Name: Kenney Hodge RN Position: [facility] SN RN Member Role: Primary Care Nurse Name: Lexis Byers RN Position: [facility] RN Member Role: Primary Care Nurse Care Team Related Persons Name: RAMÓN HARRELL Address: [address] [place] [address] Name: RAMÓN CARTAGENA Address: [place] [address] Name: LING WEIR Address: home [address] [place] [address]
--- OUTSIDE RECORDS SUMMARY | 2023-10-13 11:41 | XMS_ITS | Continuity of Care Document ---
Author Name Unknown Organization [facility] Address [address] [facility], [address]r d Floor, [address] [place] [address]- Care Team Providers Care Manufacturing Shift Supervisor Name Role Phone Christopher RIDDLE, Tom Choudhury Primary Care Physician [phone] [place] [facility] [place]22 [place] 12/19/22 [facility] [address], 3[address] Floor, [address] [place] [id number]- Allergies, Adverse Reactions, Alerts Substance Reaction Severity [...] 08/26/22 Recorded pneumococcal 23-valent vaccine 04/10/17 Given [id number] 12y+ bivalent booster vax 2 08/26/22 Recorded SARS-CoV-2 (COVID-19) mRNA BNT-162b2 vac 10/19/21 Recorded SARS-CoV-2 (COVID-19) mRNA BNT-162b2 vac 04/07/21 Recorded SARS-CoV-2 (COVID-19) mRNA BNT-162b2 vac 03/17/21 Recorded influenza virus vaccine, inactivated 08/12/21 Gentry rded Not Given Vaccine Date Status Refusal Reason influenza virus vaccine, inactivated 08/23/20 Not Given Parent Or Guardian Refuses 1Result Comment: .5ML IM/LD Lot [id number] [employer] D Exp 08.16.2023 [facility] [phone] 2Result Comment: .3Ml IM/ LD Lot [id number] Exp 10.01.2022 [facility] [phone] Medications budesonide 3 mg oral delayed release capsule 3 capsule = 9 mg, By Mouth, Daily in AM, Home taper: 3 tabs daily for 3 weeks 2 tabs daily for 3 weeks 1 tab daily for 2 weeks then stop, 0 Refills, Maintenance, 11/27/22 13:53:00 EST, Partial fill upon patient request if the prescription is fo... Start Date: 11/27/22 Status: Ordered busPIRone 7.5 mg oral tablet 1 tablet = 7.5 mg, By Mouth, 2 times a day Start Date: 11/25/22 Status: Ordered carBAMazepine 200 mg oral tablet, extended release By Mouth, Daily, 0 Refills, Maintenance, 11/27/22 13:43:00 EST, ER Tablet, Partial fill upon patient request if the prescription is for a schedule II opioid drug. Start Date: 11/27/22 Status: Ordered carBAMazepine 400 mg oral tablet, extended release By Mouth, Daily at bedtime, Refills 0, Maintenance, 11/27/22 13:42:00 EST, Partial fill upon patient request if the prescription is for a schedule II opioid drug. Start Date: 11/27/22 Status: Ordered dicyclomine 20 mg oral tablet 1 tablet, By Mouth, 3 times a day, # 90 tablet, 0 Refills, Maintenance, 12/09/22 14:29:00 EST, [facility]/pharmacy #1234, 175, cm, 11/27/22 15:01:00 EST, Height, 163.5, kg, 11/24/22 14:49:00 EST, Dry Weight Start Date: 12/09/22 Status: Ordered escitalopram 10 mg oral tablet 1 tablet = 10 mg, By Mouth, Daily in AM, Maintenance, 11/25/22 17:21:00 EST, Tablet, Partial fill upon patient request if the prescription is for a schedule II opioid drug. Start Date: 11/25/22 Status: Ordered ethosuximide 250 mg oral capsule 2 capsule = 500 mg, By Mouth, Daily at bedtime, 0 Refills, Maintenance, 11/25/22 17:22:00 EST, Capsule, Partial fill upon patient request if the prescription is for a schedule II opioid drug. Start Date: 11/25/22 Status: Ordered Flexeril 10 mg oral tablet 1, tablet, By Mouth, 3 times a day, PRN, Refills 0, Maintenance, for spasm, 04/04/22 22:32:00 EDT, Partial fill upon patient request if the prescription is for a schedule II opioid drug. Start Date: 04/04/22 Status: Ordered ibuprofen 600 mg oral tablet 600 mg, 1, tablet, By Mouth, Every 8 hours, PRN, as needed for pain Start Date: 11/25/22 Status: Ordered Lantus 100 u/ml subcutaneous solution = 30 units, Sublingual, Daily at bedtime, 0 Refills, Maintenance, 07/07/21 1:40:00 EDT, Solution, Partial fill upon patient request if the prescription is for a schedule II opioid drug. Start Date: 07/07/21 Status: Ordered lisinopril 20 mg oral tablet 20 mg, 1, tablet, By Mouth, Daily, # 30 tablet, Refills 0, Tot. Refills 0, Maintenance, 11/27/22 13:43:00 EST, Route to Pharmacy Electronically, [facility] In[facility] 3, Partial fill upon patient request if the prescription is for a schedule II opioi... Start Date: 11/27/22 Status: Ordered loperamide 2 mg oral capsule 1, capsule, By Mouth, Every 4 hours, PRN, # 60 capsule, Refills 0, Tot. Refills 0, Maintenance, NEEDED FOR LOOSE STOOLS, 12/09/22 14:29:00 EST, Route to Pharmacy Electronically, [facility]/pharmacy #[id number], 175, cm, 11/27/22 15:01:00 EST, Height, 163.5, kg,... Start Date: 12/09/22 Status: Ordered LORazepam 2 mg oral tablet 1 tablet = 2 mg, By Mouth, Daily at bedtime, for 30 days, MassPat checked, # 30 tablet, 5 Refills, Acute 03/24/23 18:15:00 EDT, 09/25/22 18:15:00 EST, [facility]/pharmacy #1234, 175, cm, 09/15/22 17:17:00 EDT, Height, 160.2, kg, 09/15/22 17:17:00 EDT, Dry We... Start Date: 09/25/22 Stop Date: 03/24/23 Status: Ordered Melatonin 3 mg oral tablet 1-2 tablet, By Mouth, Daily at bedtime Start Date: 11/25/22 Status: Ordered naratriptan 1 mg oral tablet See Instructions, TAKE 1 TABLET BY MOUTH AT ONSET OF HEADACHE, MAY REPEAT ONCE IN 4 HOURS IF NEEDED, # 9 tablet, 1 Refills, Maintenance, 08/26/22 8:54:00 EDT, [facility]/pharmacy #1234, 173, cm, 05/06/22 13:26:00 EDT, Height, 146, kg, 05/06/22 13:26:00 EDT,... Start Date: 08/26/22 Status: Ordered ondansetron 4 mg oral tablet 1 tablet = 4 mg, By Mouth, Every 8 hours, PRN Nausea & Vomiting, # 10 tablet, 0 Refills, Maintenance, 11/27/22 13:45:00 EST, Tablet, [facility] 3, Partial fill upon patient request ifthe prescription is for a schedule II opioid drug., 175... Start Date: 11/27/22 Status: Ordered risperiDONE 2 mg oral tablet 2 mg, 1, tablet, By Mouth, Daily at bedtime Start Date: 11/25/22 Status: Ordered Vimpat 150 mg oral tablet 1 tablet = 150 mg, By Mouth, 2 times a day, MassPat checked., # 60 tablet, 5 Refills, Maintenance, 09/23/22 14:32:00 EST, Tablet, [facility]/pharmacy #1234, 175, cm, 09/15/22 17:17:00 EDT, Height, 160.2, kg, 09/15/22 17:17:00 EDT, Dry Weight Start Date: 09/23/22 Stop Date: 03/22/23 Status: Ordered Vitamin B12 1000 mcg oral tablet 1 tablet = 1,000 mcg, By Mouth, Daily, Maintenance, 11/25/22 17:15:00 EST, Tablet, Partial fill upon patient request if the prescription is for a schedule II opioid drug. Start Date: 11/25/22 Status: Ordered Vitamin D3 2000 intl units oral capsule 1 capsule = 50 mcg, By Mouth, Daily, 0 Refills, Maintenance, 08/19/21 17:16:00 EDT, Capsule, Partial fill upon patient request if the prescription is for a schedule II opioid drug. Start Date: 08/19/21 Status: Ordered Problem List Condition Confirmation Course [...] Team Personnel Name: Michelle Fox RN Position: [facility] RN Member Role: Primary Care Nurse Name: Nyasia Cadet NP Position: [facility] Associate Professional Member Role: Primary Care Nurse Address: Address: [address] [place] [address]- Name: Roni Hunt RN Position: [facility] RN Member Role: Primary Care Nurse Name: Roya Jaramillo RN Position: [facility] RN Member Role: Primary Care Nurse Name: Steve Rose RN Position: [facility] RN Member Role: Primary Care Nurse Name: Tamika Mcguire RN Position: [facility] AMB Nurse Member Role: Primary Care Nurse Name: Gomez Daugherty RN Position: [facility] RN Member Role: Primary Care Nurse Name: Paolo Patterson RN Position: [facility] RN Member Role: Primary Care Nurse Name: Clarisa Mederos RN Position: [facility] RN Member Role: Primary Care Nurse Name: Loreta Pitts RN Position: [facility] RN Member Role: Primary Care Nurse Name: Tom White MD Position: Reference Physician Member Role: PCP Address: Address: [address] [place] [address] [place] [address]- Name: Philomena Benavides RN Position: [facility] RN Member Role: Primary Care Nurse Name: Cortney Benavides RN Position: [facility] RN Member Role: Primary Care Nurse Name: Stefany Lewis RN Position: [facility] [place]E RN W/OE and Tasks Member Role: Primary Care Nurse Name: Chiquita Cuevas RN Position: [facility] RN Member Role: Primary Care Nurse Name: Stefany Hamilton RN Position: [facility] Hospital Square Shear Operator Member Role: Primary Care Nurse Name: Dee Davila RN Position: [facility] RN Member Role: Primary Care Nurse Name: Natalie Lopez RN Position: [facility] RN Member Role: Primary Care Nurse Name: Juan Diego Anguiano RN Position: [facility] RN Member Role: Primary Care Nurse Address: Address: [address] [place] [address]- Name: Iwona Jones RN Position: [facility] RN Member Role: Primary Care Nurse Name: Angelika Villa RN Position: [facility] RN Member Role: Primary Care Nurse Name: Brandi Holman RN Position: [facility] RN Member Role: Primary Care Nurse Name: Candi Moore RN Position: [facility] SN RN Member Role: Primary Care Nurse Name: Stacy Yadav RN Position: [facility] Square Shear Operator Member Role: Primary Care Nurse Name: Kenney Hodge RN Position: [facility] SN RN Member Role: Primary Care Nurse Name: Lexis Byers Position: [facility] RN Member Role: Primary Care Nurse Care Team Related Persons Name: RAMÓN HARRELL Address: home [address] [place] [address] Name: RAMÓN CARTAGENA Address: [place] [address] Name: LING WEIR Address: home [address] [place] [address]
--- OUTSIDE RECORDS SUMMARY | 2023-10-13 11:41 | XMS_ITS | Continuity of Care Document ---
Author Name Unknown Organization [facility] Kelly sherrie Address [address] [place] [address] [address] [place] [address]- Care Team Providers Care Supervisor Kennel Name Role Phone Christopher RIDDLE, Tom Choudhury Primary Care Physician [phone] Encounter [facility] [place] Date(s): 04/11/23 - 05/11/23 [facility] [address] [place], [place] [address] Attending Physician: Josemaneul Galvez Admitting Physician: AdmtrJosemanuel Referring Physician: Admtr, [...] 08/26/22 Recorded pneumococcal 23-valent vaccine 04/10/17 Given [id number] 12y+ bivalent booster vax 2 08/26/22 Recorded SARS-CoV-2 (COVID-19) mRNA BNT-162b2 vac 10/19/21 Recorded SARS-CoV-2 (COVID-19) mRNA BNT-162b2 vac 04/07/21 Recorded SARS-CoV-2 (COVID-19) mRNA BNT-162b2 vac 03/17/21 Recorded influenza virus vaccine, inactivated 08/12/21 Gentry rded Not Given Vaccine Date Status Refusal Reason influenza virus vaccine, inactivated 08/23/20 Not Given Parent Or Guardian Refuses 1Result Comment: .5ML IM/LD Lot [id number] [facility] D Exp 08.16.2023 [facility] [phone] 2Result Comment: .3Ml IM/ LD Lot [id number] Exp 10.01.2022 [facility] [phone] Medications Albuterol (Eqv-ProAir HFA) Inhalation, Every 6 hours, 0 Refills, Maintenance, 04/10/23 13:27:00 EDT, Partial fill upon patientrequest if the prescription is for a schedule II opioid drug. Start Date: 04/10/23 Status: Ordered Augmentin 875 mg-125 mg oral tablet 1 tablet, By Mouth, Every 12 hours, for 10 days, # 20 tablet, 0 Refills, Acute 05/17/23 16:51:00 EDT, 05/07/23 16:51:00 EDT, Tablet, [id number], Partial fill upon patient request if the prescription is for a schedule II opioid drug., 173, cm,... Start Date: 05/07/23 Stop Date: 05/17/23 Status: Ordered dicyclomine 20 mg oral tablet 1 tablet, By Mouth, 3 times a day, # 90 tablet, 0 Refills, Maintenance, 04/15/23 8:59:00 EDT, [facility] STORE [id number], 173, cm, 04/10/23 13:09:00 EDT, Height, 165, kg, 04/10/23 13:09:00 EDT, Dry Weight Start Date: 04/15/23 Status: Ordered doxycycline hyclate 100 mg oral tablet 1 tablet = 100 mg, By Mouth, 2 times a day, for 10 days, # 20 tablet, 0 Refills, Acute 05/17/23 16:51:00 EDT, 05/07/23 16:51:00 EDT, Tablet, [facility]/pharmacy #1234, Partial fill upon patient request if the prescription is for a schedule II opioid drug., 1... Start Date: 05/07/23 Stop Date: 05/17/23 Status: Ordered escitalopram 10 mg oral tablet [...] opioid drug. Start Date: 04/10/23 Status: Ordered ibuprofen 600 mg oral tablet 600 mg, 1, tablet, By Mouth, 4 times a day, # 30 tablet, Refills 0, Tot. Refills 0, Acute 05/16/23 17:03:00 EDT, 05/07/23 17:02:00 EDT, Route to Pharmacy Electronically, [facility]/pharmacy #[id number], Partial fill upon patient request if the prescription is for... Start Date: 05/07/23 Stop Date: 05/16/23 Status: Ordered Lantus 100 u/ml subcutaneous solution [...] 04/21/23 15:34:00 EDT, Route to Pharmacy Electronically, [facility]/pharmacy #[id number], 173, cm, 04/10/23 13:09:00 [...] at bedtime Start Date: 11/25/22 Status: Ordered Trulicity Pen 0.75 mg/0.5 mL [...] 1 Refills, Maintenance, 04/09/23 7:29:00 EDT, Tablet, [facility]/pharmacy #1234, 173, cm, 03/21/23 13:36:00 EDT, Height, [...] Team Personnel Name: Michelle Fox RN Position: [facility] RN Member Role: Primary Care Nurse Name: Nyasia Cadet NP Position: [facility] Associate Professional Member Role: Primary Care Nurse Address: Address: [address] [place] [address]- [place] Name: Roni Hunt RN Position: [facility] RN Member Role: Primary Care Nurse Name: Roya Jaramillo RN Position: [facility] RN Member Role: Primary Care Nurse Name: Tamika Mcguire RN Position: [facility] AMB Nurse Member Role: Primary Care Nurse Name: My Fonseca NP Position: [facility] Associate Professional Member Role: Lifetime Consulting Provider Address: Address: [address] [place], [place] [address] [place] [address]- Name: Gomez Daugherty RN Position: [facility] RN Member Role: Primary Care Nurse Name: Paolo Patterson RN Position: [facility] RN Member Role: Primary Care Nurse Name: Clarisa Mederos RN Position: [facility] RN Member Role: Primary Care Nurse Name: Loreta Pitts RN Position: [facility] RN Member Role: Primary Care Nurse Name: Tom White MD Position: Reference Physician Member Role: PCP Address: Address: [address] [place] [address] [place] [address]- Name: Philomena Benavieds RN Position: [facility] RN Member Role: Primary Care Nurse Name: Cortney Benavides RN Position: [facility] RN Member Role: Primary Care Nurse Name: Gloria Mims RN Position: [facility] RN Member Role: Primary Care Nurse Name: Stefany Lewis RN Position: [facility] ED RN W/OE and Tasks Member Role: Primary Care Nurse Name: Chiquita Cuevas RN Position: [facility] RN Member Role: Primary Care Nurse Name: Stefany Hamilton RN Position: [facility] Sanding Machine Operator Member Role: Primary Care Nurse Name: Dee Davila RN Position: [facility] RN Member Role: Primary Care Nurse Name: Natalie Lopez RN Position: [facility] RN Member Role: Primary Care Nurse Name: Juan Diego Anguiano RN Position: [facility] RN Member Role: Primary Care Nurse Address: Address: [address] [place], [place] [address] [place] [address]- Name: Iwona Jones RN Position: [facility] RN Member Role: Primary Care Nurse Name: Angelika Villa RN Position: [facility] RN Member Role: Primary Care Nurse Name: Brandi Holman RN Position: [facility] OB RN Member Role: Primary Care Nurse Name: Candi Moore RN Position: [facility] SN RN Member Role: Primary Care Nurse Name: Stacy Yadav RN Position: [facility] Hospital Sanding Machine Operator Member Role: Primary Care Nurse Name: Kenney Hodge RN Position: [facility] SN RN Member Role: Primary Care Nurse Name: Lexis Byers RN Position: [facility] RN Member Role: Primary Care Nurse Care Team Related Persons Name: RAMÓN HARRELL Address: home [address] [place] [address] Name: RAMÓN CARTAGENA Address: [place] [address] Name: LING WEIR Address: home [address] [place] [address]
--- OUTSIDE RECORDS SUMMARY | 2023-10-13 11:41 | XMS_ITS | Continuity of Care Document ---
Author Name Unknown Organization [facility] Address [address] [facility], [address]r d Floor, [address] [place] [address]- Care Team Providers Care Supervisor Inspection And Testing Name Role Phone Christopher RIDDLE, Tom Choudhury Primary Care Physician Encounter [facility] [place] Date(s): 03/07/23 - 04/06/23 [facility] [address], [address], [address] [place] [id number] Allergies, Adverse Reactions, Alerts Substance Reaction Severity [...] 08/26/22 Recorded pneumococcal 23-valent vaccine 04/10/17 Given [id number] 12y+ bivalent booster vax 2 08/26/22 Recorded SARS-CoV-2 (COVID-19) mRNA BNT-162b2 vac 10/19/21 Recorded SARS-CoV-2 (COVID-19) mRNA BNT-162b2 vac 04/07/21 Recorded SARS-CoV-2 (COVID-19) mRNA BNT-162b2 vac 03/17/21 Recorded influenza virus vaccine, inactivated 08/12/21 Gentry rded Not Given Vaccine Date Status Refusal Reason influenza virus vaccine, inactivated 08/23/20 Not Given Parent Or Guardian Refuses 1Result Comment: .5ML IM/LD Lot [id number] [employer] D Exp 08.16.2023 [facility] [phone] 2Result Comment: .3Ml IM/ LD Lot [id number] Exp 10.01.2022 [facility] [phone] Medications budesonide 3 mg oral delayed release capsule See Instructions, TAKE 3 TABLETS DAILY X3 WEEKS THEN 2 TABS DAILY X3 WEEKS THEN 1 TAB DAILY X2 WEEKS THEN STOP, # 77 capsule, 2 Refills, Maintenance, 03/18/23 9:20:00 EDT, [facility] [id number], 173, cm, 03/12/23 12:51:00 EDT, Height, 161.8, kg, 03/12/23 12... Start Date: 03/18/23 Status: Ordered busPIRone 10 mg oral tablet 10 mg, 1, tablet, By Mouth, 3 times a day, Refills 0, Maintenance, 03/08/23 11:44:00 EDT, Partial fill upon patient request if the prescription is for a schedule II opioid drug. Start Date: 03/08/23 Status: Ordered dicyclomine 20 mg oral tablet 1 tablet, By Mouth, 3 times a day, # 90 tablet, 0 Refills, Maintenance, 02/24/23 8:38:00 EDT, [facility] STORE [id number], 173, cm, 01/27/23 8:03:00 EDT, Height, 164.8, kg, 02/11/23 10:22:00 EDT, Dry Weight Start Date: 02/24/23 Status: Ordered escitalopram 10 mg oral tablet [...] opioid drug. Start Date: 04/04/22 Status: Ordered Lantus 100 u/ml subcutaneous solution = 38 units, Daily at bedtime, 0 Refills, Maintenance, 07/07/21 1:40:00 EDT, Solution, Partial fill upon patient request if the prescription is for a schedule II opioid drug. Start Date: 07/07/21 Status: Ordered loperamide 2 mg oral capsule 1, capsule, By Mouth, Every 4 hours, PRN, # 60 capsule, Refills 0, Maintenance, NEEDED FOR LOOSESTOOLS, 02/24/23 15:54:00 EDT, Route to Pharmacy Electronically, [facility] [id number], 173, cm, 02/25/2312:35:00 EDT, Height, 164.8, kg, 02/11/23 10:22:00... Start Date: 02/24/23 Status: Ordered Lyrica 100 mg oral capsule 2 capsule = 200 mg, By Mouth, 2 times a day, 0 Refills, Maintenance, 02/08/23 10:37:00 EDT, Partialfill upon patient request if the prescription is for a schedule II opioid drug. Start Date: 02/08/23 Status: Ordered naratriptan 1 mg oral tablet See Instructions, TAKE 1 TABLET BY MOUTH AT ONSET OF HEADACHE, MAY REPEAT ONCE IN 4 HOURS IF NEEDED, # 9 tablet, 1 Refills, Maintenance, 08/26/22 8:54:00 EDT, [facility]/pharmacy #1234, 173, cm, 05/06/22 13:26:00 EDT, Height, 146, kg, 05/06/22 13:26:00 EDT,... Start Date: 08/26/22 Status: Ordered Risperidone = 0.5 mg, By [...] 5 Refills, Maintenance, 09/23/22 14:32:00 EST, Tablet, [facility], 175, cm, 09/15/22 17:17:00 EDT, Height, 160.2, kg, 09/15/22 17:17:00 EDT, Dry Weight Start Date: 09/23/22 Stop Date: 03/22/23 Status: Ordered Vitamin D3 50,000 intl units oral capsule 1 capsule = 1,250 mcg, By Mouth, Every Friday, 0 Refills, Maintenance, 02/08/23 10:18:00 EDT, Partial fill upon patient request if the prescription is for a schedule II opioid drug. Start Date: 02/08/23 Status: Ordered Problem List Condition Confirmation Course [...] Team Personnel Name: Michelle Fox RN Position: [facility] RN Member Role: Primary Care Nurse Name: Nyasia Cadet NP Position: [facility] Associate Professional Member Role: Primary Care Nurse Address: Address: [address] [place] [address]- Name: Roni Hunt RN Position: [facility] RN Member Role: Primary Care Nurse Name: Roya Jaramillo RN Position: [facility] RN Member Role: Primary Care Nurse Name: Tamika Mcguire RN Position: [facility] [place] Nurse Member Role: Primary Care Nurse Name: My Fonseca NP Position: S Associate Professional Member Role: Lifetime Consulting Provider Address: Address: [address] [place], [place] [address] [place] [address]- Name: Gomez Daugherty RN Position: [facility] RN Member Role: Primary Care Nurse Name: Paolo Patterson RN Position: [facility] RN Member Role: Primary Care Nurse Name: Clarisa Mederos RN Position: [facility] RN Member Role: Primary Care Nurse Name: Loreta Pitts RN Position: [facility] RN Member Role: Primary Care Nurse Name: Tom White MD Position: Reference Physician Member Role: PCP Address: Address: [address] [place] [address] [place] [address]- Name: Philomena Benavides RN Position: [facility] RN Member Role: Primary Care Nurse Name: Cortney Benavides RN Position: [facility] RN Member Role: Primary Care Nurse Name: Gloria Mims RN Position: [facility] RN Member Role: Primary Care Nurse Name: Stefany Lewis RN Position: [facility] ED RN W/OE and Tasks Member Role: Primary Care Nurse Name: Adia Cuevas RN Position: [facility] RN Member Role: Primary Care Nurse Name: Stefany Hamilton RN Position: [facility] Laborer Golf Course Member Role: Primary Care Nurse Name: Dee Davila RN Position: [facility] RN Member Role: Primary Care Nurse Name: Natalie Lopez RN Position: [facility] RN Member Role: Primary Care Nurse Name: Juan Diego Anguiano RN Position: [facility] RN Member Role: Primary Care Nurse Address: Address: [address] [place] [address]- Name: Iwona Jones RN Position: [facility] RN Member Role: Primary Care Nurse Name: Angelika Villa RN Position: [facility] RN Member Role: Primary Care Nurse Name: Brandi Holman RN Position: [facility] OB RN Member Role: Primary Care Nurse Name: Candi Moore RN Position: [facility] SN RN Member Role: Primary Care Nurse Name: Stacy Yadav RN Position: [facility] [employer]orer Golf Course Member Role: Primary Care Nurse Name: Kenney Hodge RN Position: [facility] SN RN Member Role: Primary Care Nurse Name: Lexis Byers RN Position: [facility] RN Member Role: Primary Care Nurse Care Team Related Persons Name: ADIA HARRELLBASSAM Address: home [address] [place] [address] Name: RAMÓN CARTAGENA Address: [place] [address] Name: LING WEIR Address: [address] [place] [address]
--- OUTSIDE RECORDS SUMMARY | 2023-10-13 11:42 | XMS_ITS | Continuity of Care Document ---
Author Name Unknown Organization [facility] Kelly sherrie Address [address] [place] [address] D[address] [place] [address]- Care Team Providers Care Senior Insight Manager Name Role Phone Christopher RIDDLE, Tom Choudhury Primary Care Physician [place] [facility] [place] [facility] [place]s): 12/11/22 - 05/11/23 [facility] [address] [place], [place] [address] Attending Physician: Carmen DC, Mary Cerda Allergies, Adverse Reactions, Alerts Substance Reaction Severity [...] 08/26/22 Recorded pneumococcal 23-valent vaccine 04/10/17 Given [id number] 12y+ bivalent booster vax 2 08/26/22 Recorded SARS-CoV-2 (COVID-19) mRNA BNT-162b2 vac 10/19/21 Recorded SARS-CoV-2 (COVID-19) mRNA BNT-162b2 vac 04/07/21 Recorded SARS-CoV-2 (COVID-19) mRNA BNT-162b2 vac 03/17/21 Recorded influenza virus vaccine, inactivated 08/12/21 Gentry rded Not Given Vaccine Date Status Refusal Reason influenza virus vaccine, inactivated 08/23/20 Not Given Parent Or Guardian Refuses 1Result Comment: .5ML IM/LD Lot [id number] [employer] D Exp 08.16.2023 [facility] [phone] 2Result Comment: .3Ml IM/ LD Lot [id number] Exp 10.01.2022 [facility] [phone] Medications Albuterol (Eqv-ProAir HFA) Inhalation, Every 6 hours, 0 Refills, Maintenance, 04/10/23 13:27:00 EDT, Partial fill upon patientrequest if the prescription is for a schedule II opioid drug. Start Date: 04/10/23 Status: Ordered Augmentin 875 mg-125 mg oral tablet 1 tablet, By Mouth, Every 12 hours, for 10 days, # 20 tablet, 0 Refills, Acute 05/17/23 16:51:00 EDT, 05/07/23 16:51:00 EDT, [id number] Partial fill upon patient request if the prescription is for a schedule II opioid drug., 173, cm,... Start Date: 05/07/23 Stop Date: 05/17/23 Status: Ordered dicyclomine 20 mg oral tablet 1 tablet, By Mouth, 3 times a day, # 90 tablet, 0 Refills, Maintenance, 04/15/23 8:59:00 EDT, [id number], 173, cm, 04/10/23 13:09:00 EDT, Height, 165, kg, 04/10/23 13:09:00 EDT, Dry Weight Start Date: 04/15/23 Status: Ordered doxycycline hyclate 100 mg oral tablet 1 tablet = 100 mg, By Mouth, 2 times a day, for 10 days, # 20 tablet, 0 Refills, Acute 05/17/23 16:51:00 EDT, 05/07/23 16:51:00 EDT, [facility], [id number] Partial fill upon patient request [...] 05/07/23 17:02:00 EDT, Route to Pharmacy Electronically, [facility][id number], Partial fill upon patient request if the [...] 04/21/23 15:34:00 EDT, Route to Pharmacy Electronically, [facility]1234, 173, cm, 04/10/23 13:09:00 EDT, Height, [...] 1 Refills, Maintenance, 04/09/23 7:29:00 EDT, Tablet, [facility] #1234, 173, cm, 03/21/23 13:36:00 EDT, Height, [...] Team Personnel Name: Michelle Fox RN [facility] RN Member Role: Primary Care Nurse Name: Nyasia Cadet NP Position: [facility] Associate Professional Member Role: Primary Care Nurse Address: Address: [address] [place] [address]- [place] Name: Roni Hunt RN Position: [facility] RN Member Role: Primary Care Nurse Name: Roya Jaramillo RN Position: [facility] RN Member Role: Primary Care Nurse Name: Tamika Mcguire RN Position: [facility] AMB Nurse Member Role: Primary Care Nurse Name: My Fonseca NP Position: [facility] Associate Professional Member Role: Lifetime Consulting Provider Address: Address: [address] [place], [place] [address] [place] [address]- [place] Name: Gomez Daugherty RN Position: [facility] RN Member Role: Primary Care Nurse Name: Paolo Patterson RN Position: [facility] RN Member Role: Primary Care Nurse Name: Clarisa Mederos RN Position: [facility] RN Member Role: Primary Care Nurse Name: Loreta Pitts RN Position: [facility] RN Member Role: Primary Care Nurse Name: Tom White MD Position: Reference Physician Member Role: PCP Address: Address: [address] [place] [address] [place] [address]- [place] Name: Philomena Benavides RN Position: [facility] RN Member Role: Primary Care Nurse Name: Cortney Benavides RN Position: [facility] RN Member Role: Primary Care Nurse Name: Gloria Mims RN Position: [facility] RN Member Role: Primary Care Nurse Name: Stefany Lewis RN Position: [facility] ED RN W/OE and Tasks Member Role: Primary Care Nurse Name: Chiquita Cuevas RN Position: [facility] RN Member Role: Primary Care Nurse Name: Stefany Hamilton RN Position: [facility] Ergonomics Consultant Member Role: Primary Care Nurse Name: Dee Davila RN Position: [facility] RN Member Role: Primary Care Nurse Name: Natalie Lopez RN Position: [facility] RN Member Role: Primary Care Nurse Name: Juan Diego Anguiano RN Position: [facility] RN Member Role: Primary Care Nurse Address: Address: [address] [place] [address]- [place] Name: Iwona Jones RN Position[facility] RN Member Role: Primary Care Nurse Name: Angelika Villa RN Position: [facility] RN Member Role: Primary Care Nurse Name: Brandi Holman RN Position: [facility] OB RN Member Role: Primary Care Nurse Name: Candi Moore RN Position: [facility] SN RN Member Role: Primary Care Nurse Name: Stacy Yadav RN Position: [facility] Hospital Ergonomics Consultant Member Role: Primary Care Nurse Name: Kenney Hodge RN Position: [facility] SN RN Member Role: Primary Care Nurse Name: Lexis Byers RN Position: [facility] RN Member Role: Primary Care Nurse Care Team Related Persons Name: RAMÓN HARRELL Address: home [address] [place] [address] Name: RAMÓN CARTAGENA Address: [place] [address] Name: LING WEIR Address: home [address] [address] [place] [address]
--- OUTSIDE RECORDS SUMMARY | 2023-10-13 11:42 | XMS_ITS | Continuity of Care Document ---
Author Name Unknown Organization [facility] Address [address] [place] [address] [address], [address] [place] [address]- Care Team Providers Care Special Machine Operator Name Role Phone Christopher RIDDLE, Tom Choudhury Primary Care Physician [place] [facility] [place]): 02/24/23 - 03/26/23 [facility] [address] [place] [address] Drive, [address] [place], [place] [address] Attending Physician: Admdany, Da8 Admitting Physician: Admtr, Ar8 Referring Physician: Admtr, Ar8 Allergies, Adverse Reactions, [...] 08/26/22 Recorded pneumococcal 23-valent vaccine 04/10/17 Given [id number] 12y+ bivalent booster vax 2 08/26/22 Recorded SARS-CoV-2 (COVID-19) mRNA BNT-162b2 vac 10/19/21 Recorded SARS-CoV-2 (COVID-19) mRNA BNT-162b2 vac 04/07/21 Recorded SARS-CoV-2 (COVID-19) mRNA BNT-162b2 vac 03/17/21 Recorded influenza virus vaccine, inactivated 08/12/21 Gentry rded Not Given Vaccine Date Status Refusal Reason influenza virus vaccine, inactivated 08/23/20 Not Given Parent Or Guardian Refuses 1Result Comment: .5ML IM/LD Lot [id number] [facility] D Exp 08.16.2023 [facility] [phone] 2Result Comment: .3Ml IM/ LD Lot [id number] Exp 10.01.2022 [facility] [phone] Medications budesonide 3 mg oral delayed release capsule See Instructions, TAKE 3 TABLETS DAILY X3 WEEKS THEN 2 TABS DAILY X3 WEEKS THEN 1 TAB DAILY X2 WEEKS THEN STOP, # 77 capsule, 2 Refills, Maintenance, 03/18/23 9:20:00 EDT, [id number], 173, cm, 03/12/23 12:51:00 EDT, Height, 161.8, [...] tablet, 0 Refills, Maintenance, 02/24/23 8:38:00 EDT, [facility], 173, cm, 01/27/23 8:03:00 EDT, Height, 164.8, [...] 02/24/23 15:54:00 EDT, Route to Pharmacy Electronically, [facility] ST[facility] 7[facility]27, 173, cm, 02/25/2312:35:00 EDT, Height, 164.8, kg, [...] tablet, 1 Refills, Maintenance, 08/26/22 8:54:00 EDT, [facility]acy #1234, 173, cm, 05/06/22 13:26:00 EDT, Height, [...] 5 Refills, Maintenance, 09/23/22 14:32:00 EST, Tablet, [facility]/pharmacy #1234, 175, cm, 09/15/22 17:17:00 EDT, Height, [...] Team Personnel Name: Michelle Fox RN Position: [facility] RN Member Role: Primary Care Nurse Name: Nyasia Cadet NP Position: [facility] Associate Professional Member Role: Primary Care Nurse Address: Address: [address] [place] [address] Name: Roni Hunt RN Position: [facility] RN Member Role: Primary Care Nurse Name: Roya Jaramillo RN Position: S RN Member Role: Primary Care Nurse Name: Tamika Mcguire RN Position: [facility] AMB Nurse Member Role: Primary Care Nurse Name: My Fonseca NP Position: [facility] Associate Professional Member Role: Lifetime Consulting Provider Address: Address: [address] [facility] [place] [address]- [place] Name: Gomez Daugherty RN Position: [facility] RN Member Role: Primary Care Nurse Name: Paolo Patterson RN Position: [facility] RN Member Role: Primary Care Nurse Name: Clarisa Mederos RN Position: [facility] RN Member Role: Primary Care Nurse Name: Loreta Pitts RN Position: [facility] RN Member Role: Primary Care Nurse Name: Tom White MD Position: Reference Physician Member Role: PCP Address: Address: [address] [place] [address] [place] [address]- [place] Name: Philomena Benavides RN Position: [facility] RN Member Role: Primary Care Nurse Name: Cortney Benavides RN Position: [facility] RN Member Role: Primary Care Nurse Name: Gloria Mims RN Position: [facility] RN Member Role: Primary Care Nurse Name: Stefany Lewis RN Position: [facility] ED RN W/OE and Tasks Member Role: Primary Care Nurse Name: Chiquita Cuevas RN Position: [facility] RN Member Role: Primary Care Nurse Name: Stefany Hamilton RN Position: [facility] Enrollment Clerk Member Role: Primary Care Nurse Name: Dee Davila RN Position: [facility] RN Member Role: Primary Care Nurse Name: Natalie Lopez RN Position: [facility] RN Member Role: Primary Care Nurse Name: Juan Diego Anguiano RN Position: [facility] RN Member Role: Primary Care Nurse Address: Address: [address] [place] [address]- Name: Iwona Jones RN Position: [facility] RN Member Role: Primary Care Nurse Name: Angelika Villa RN Position: [facility] RN Member Role: Primary Care Nurse Name: Brandi Holman RN Position: [facility] OB RN Member Role: Primary Care Nurse Name: Candi Moore RN Position: [facility] SN RN Member Role: Primary Care Nurse Name: Stacy Yadav RN Position: [facility] Enrollment Clerk Member Role: Primary Care Nurse Name: Kenney Hodge RN Position: [facility] SN RN Member Role: Primary Care Nurse Name: Lexis Byers RN Position: [facility] RN Member Role: Primary Care Nurse Care Team Related Persons Name: RAMÓN HARRELL Address: home [address] [place] [address] Name: RAMÓN CARTAGENA Address: [place] [address] Name: LING WEIR Address: home [address] [facility] [facility] [address] [place] [address]
--- OUTSIDE RECORDS SUMMARY | 2023-10-13 11:42 | XMS_ITS | Continuity of Care Document ---
Author Name Unknown Organization [facility] Address [address] [place], [place] [address]julio shin, [address] [place] [address]- Care Team Providers Care [employer]ric[employer] Supervisor Name Role Phone Christopher RIDDLE, Tom Choudhury Primary Care Physician [phone] [place] [facility] [place] 01/09/23 - 02/08/23 [facility] [address] [place] [address] Drive, [address] [place] [address]- Allergies, Adverse Reactions, Alerts Substance Reaction Severity [...] 08/26/22 Recorded pneumococcal 23-valent vaccine 04/10/17 Given [id number] 12y+ bivalent booster vax 2 08/26/22 Recorded SARS-CoV-2 (COVID-19) mRNA BNT-162b2 vac 10/19/21 Recorded SARS-CoV-2 (COVID-19) mRNA BNT-162b2 vac 04/07/21 Recorded SARS-CoV-2 (COVID-19) mRNA BNT-162b2 vac 03/17/21 Recorded influenza virus vaccine, inactivated 08/12/21 Gentry rded Not Given Vaccine Date Status Refusal Reason influenza virus vaccine, inactivated 08/23/20 Not Given Parent Or Guardian Refuses 1Result Comment: .5ML IM/LD Lot [id number] [facility] [employer] D Exp 08.16.2023 [facility] [phone] 2Result Comment: .3Ml IM/ LD Lot [id number] Exp 10.01.2022 [facility] [phone] Medications budesonide 3 mg oral delayed release capsule See Instructions, TAKE 3 TABLETS DAILY X3 WEEKS THEN 2 TABS DAILY X3 WEEKS THEN 1 TAB DAILY X2 WEEKS THEN STOP, # 77 capsule, 2 Refills, Maintenance, 12/24/22 8:57:00 EST, [facility] ST[facility] 34540, 175, cm, 12/22/22 3:33:00 EST, Height, 163.5, kg, 12/17/22 13:... Start Date: 12/24/22 Status: Ordered busPIRone 7.5 mg oral tablet 1 tablet = 7.5 mg, By Mouth, 2 times a day Start Date: 11/25/22 Status: Ordered dicyclomine 20 mg oral tablet 1 tablet, By Mouth, 3 times a day, # 90 tablet, 0 Refills, Maintenance, 12/09/22 14:29:00 EST, [facility]/pharmacy #1234, 175, cm, 11/27/22 15:01:00 EST, Height, 163.5, kg, 11/24/22 14:49:00 EST, Dry Weight Start Date: 12/09/22 Status: Ordered docusate sodium 100 mg oral capsule 100 mg, 1, capsule, By Mouth, 2 times a day, # 20 capsule, Refills 0, Tot. Refills 0, Maintenance, 01/07/23 16:27:00 EST, Route to Pharmacy Electronically, [facility], Partial fill uponpatient request if the prescription is for a schedu... Start Date: 01/07/23 Stop Date: 01/17/23 Status: Ordered escitalopram 10 mg oral tablet 1 tablet = 10 mg, By Mouth, Daily in AM, Maintenance, 11/25/22 17:21:00 EST, Tablet, Partial fill upon patient request if the prescription is for a schedule II opioid drug. Start Date: 11/25/22 Status: Ordered fenofibrate 145 mg oral tablet 1 tablet = 145 mg, By Mouth, Daily, 0 Refills, Maintenance, 02/08/23 10:17:00 EDT, Partial [...] 11/27/22 13:43:00 EST, Route to Pharmacy Electronically, [facility], Partial fill upon patient request if the prescription is for a schedule II opioi... Start Date: 11/27/22 Status: Ordered loperamide 2 mg oral capsule 1, capsule, By Mouth, Every 4 hours, PRN, # 60 capsule, Refills 0, Maintenance, NEEDED FOR LOOSESTOOLS, 01/21/23 16:35:00 EST, Route to Pharmacy Electronically, [facility]ORE [id number], 173, cm, 01/02/2317:14:00 EST, Height, 163.3, kg, 01/02/23 17:14:00... Start Date: 01/21/23 Status: Ordered LORazepam 2 mg oral tablet 1 tablet = 2 mg, By Mouth, Daily at bedtime, for 30 days, MassPat checked, # 30 tablet, 5 Refills, Acute 03/24/23 18:15:00 EDT, 09/25/22 18:15:00 EST, [facility]/pharmacy #1234, 175, cm, 09/15/22 17:17:00 EDT, Height, 160.2, kg, 09/15/22 17:17:00 EDT, Dry We... Start Date: 09/25/22 Stop Date: 03/24/23 Status: Ordered Lyrica 100 mg oral capsule 1 capsule = 100 mg, By Mouth, Daily, 0 Refills, Maintenance, 02/08/23 10:37:00 EDT, Partial fill upon patient request if the prescription is for a schedule II opioid drug. Start Date: 02/08/23 Status: Ordered Melatonin 3 mg oral tablet 1-2 tablet, By Mouth, Daily at bedtime Start Date: 11/25/22 Status: Ordered naratriptan 1 mg oral tablet See Instructions, TAKE 1 TABLET BY MOUTH AT ONSET OF HEADACHE, MAY REPEAT ONCE IN 4 HOURS IF NEEDED, # 9 tablet, 1 Refills, Maintenance, 08/26/22 8:54:00 EDT, [facility]/pharmacy #1234, 173, cm, 05/06/22 13:26:00 EDT, Height, 146, kg, 05/06/22 13:26:00 EDT,... Start Date: 08/26/22 Status: Ordered ondansetron 4 mg oral tablet 1 tablet = 4 mg, By Mouth, Every 8 hours, PRN Nausea & Vomiting, # 15 tablet, 0 Refills, Maintenance, 01/07/23 16:25:00 EST, Tablet, [facility] 3, Partial fill upon patient request ifthe prescription is for a schedule II opioid drug., 173... Start Date: 01/07/23 Stop Date: 01/12/23 Status: Ordered risperiDONE 2 mg oral tablet 2 mg, 1, tablet, By Mouth, Daily at bedtime Start Date: 11/25/22 Status: Ordered Vimpat 150 mg oral tablet 1 tablet = 150 mg, By Mouth, 2 times a day, MassPat checked., # 60 tablet, 5 Refills, Maintenance, 09/23/22 14:32:00 EST, Tablet, [facility]/pharmacy #1234, 175, cm, 09/15/22 17:17:00 EDT, [...] Start Date: 11/25/22 Status: Ordered Vitamin D3 50,000 intl units [...] Team Personnel Name: Michelle Fox RN Position: [facility] RN Member Role: Primary Care Nurse Name: Nyasia Cadet NP Position: [facility] Associate Professional Member Role: Primary Care Nurse Address: Address: [address] [place] [address]- Name: Roni Hunt RN Position: [facility] RN Member Role: Primary Care Nurse Name: Roya Jaramillo RN Position: [facility] RN Member Role: Primary Care Nurse Name: Steve Rose RN Position: [facility] RN Member Role: Primary Care Nurse Name: Tamika Mcguire RN Position: [facility] AMB Nurse Member Role: Primary Care Nurse Name: Gomez Daugherty RN Position: [facility] RN Member Role: Primary Care Nurse Name: Paolo Patterson RN Position: [facility] RN Member Role: Primary Care Nurse Name: Clarisa Mederos RN Position: [facility] RN Member Role: Primary Care Nurse Name: Loreta Pitts RN Position: [facility] RN Member Role: Primary Care Nurse Name: Tom White MD Position: Reference Physician Member Role: PCP Address: Address: [address] [place] [address] [place] [address]- Name: Philomena Benavides RN Position: [facility] RN Member Role: Primary Care Nurse Name: Cortney Benavides RN Position: [facility] RN Member Role: Primary Care Nurse Name: Stefany Lewis RN Position: [facility] ED RN W/OE and Tasks Member Role: Primary Care Nurse Name: Chiquita Cuevas RN Position: [facility] RN Member Role: Primary Care Nurse Name: Stefany Hamilton RN Position: [facility] Tunnel Inspector Member Role: Primary Care Nurse Name: Dee Davila RN Position: [facility] RN Member Role: Primary Care Nurse Name: Natalie Lopez RN Position: [facility] RN Member Role: Primary Care Nurse Name: Juan Diego Anguiano RN Position: [facility] RN Member Role: Primary Care Nurse Address: Address: [address] [place] [address]- Name: Iwona Jones RN Position: [facility] RN Member Role: Primary Care Nurse Name: Angelika Villa RN Position: [facility] RN Member Role: Primary Care Nurse Name: Brandi Holman RN Position: [facility] OB RN Member Role: Primary Care Nurse Name: Candi Moore RN Position: [facility] SN RN Member Role: Primary Care Nurse Name: Stacy Yadav RN Position: [facility] Tunnel Inspector Member Role: Primary Care Nurse Name: Kenney Hodge RN Position: [facility] SN RN Member Role: Primary Care Nurse Name: Lxeis Byers RN Position: [facility] RN Member Role: Primary Care Nurse Care Team Related Persons Name: RAMÓN HARRELL Address: home [address] [address] Name: RAMÓN CARTAGENA Address: [place] [address] Name: LING WEIR Address: home [address] [place] [address]
--- OUTSIDE RECORDS SUMMARY | 2023-10-13 11:42 | XMS_ITS | Continuity of Care Document ---
Author Name Unknown Organization [facility] Address [address] [facility], 3r d Floor, [address] [place] [address]- Care Team Providers Care Environmental Marketing Representative Name Role Phone Christopher RIDDLE, Tom Choudhury Primary [id number]): [facility] - 02/05/23 [facility] [address], 3[address] Floor, [address] [place] [address]- Attending Physician: Cecile Bledsoe NP Admitting Physician: Cecile Bledsoe NP Referring Physician: Tom White MD Allergies, Adverse Reactions, Alerts Substance Reaction Severity Status gabapentin Agitation Persistent Moderate Active Toradol C/O: a rash Active Versed 1 dyspnea aggitation throat closes up Persistent Severe Active Latex itchiness Active sulfa drugs rash C/O: itching Persistent Severe Active 1Does fine with Ativan, Valium, Klonopin Immunizations Given and Recorded Vaccine Date Status Refusal Reason pneumococcal 23-valent vaccine 1 08/26/22 Recorded pneumococcal 23-valent vaccine 04/10/17 Given [id number] 12y+ bivalent booster vax 2 08/26/22 Recorded SARS-CoV-2 (COVID-19) mRNA BNT-162b2 vac 10/19/21 Recorded SARS-CoV-2 (COVID-19) mRNA BNT-162b2 vac 04/07/21 Recorded SARS-CoV-2 (COVID-19) mRNA BNT-162b2 vac 03/17/21 Recorded influenza virus vaccine, inactivated 08/12/21 Gentry rded Not Given Vaccine Date Status Refusal Reason influenza virus vaccine, inactivated 08/23/20 Not Given Parent Or Guardian Refuses 1Result Comment: .5ML IM/LD Lot [id number] [facility] [employer] D Exp 08.16.2023 [facility] [phone] 2Result Comment: .3Ml IM/ LD Lot [id number] Exp 10.01.2022 [facility] [phone] Medications budesonide 3 mg oral delayed release capsule See Instructions, TAKE 3 TABLETS DAILY X3 WEEKS THEN 2 TABS DAILY X3 WEEKS THEN 1 TAB DAILY X2 WEEKS THEN STOP, # 77 capsule, 2 Refills, Maintenance, 12/24/22 8:57:00 EST, [facility] STORE [id number], 175, cm, 12/22/22 3:33:00 EST, Height, 163.5, kg, 12/17/22 13:... Start Date: 12/24/22 Status: Ordered busPIRone 7.5 mg oral tablet 1 tablet = 7.5 mg, By Mouth, 2 times a day Start Date: 11/25/22 Status: Ordered dicyclomine 20 mg oral tablet 1 tablet, By Mouth, 3 times a day, # 90 tablet, 0 Refills, Maintenance, 12/09/22 14:29:00 EST, [facility]/pharmacy #1234, 175, cm, 11/27/22 15:01:00 EST, Height, 163.5, kg, 11/24/22 14:49:00 EST, Dry Weight Start Date: 12/09/22 Status: Ordered docusate sodium 100 mg oral capsule 100 mg, 1, capsule, By Mouth, 2 times a day, # 20 capsule, Refills 0, Tot. Refills 0, Maintenance, 01/07/23 16:27:00 EST, Route to Pharmacy Electronically, [facility], Partial fill uponpatient request if the [...] 11/27/22 13:43:00 EST, Route to Pharmacy Electronically, [facility], Partial fill upon patient request if the prescription is for a schedule II opioi... Start Date: 11/27/22 Status: Ordered loperamide 2 mg oral capsule 1, capsule, By Mouth, Every 4 hours, PRN, # 60 capsule, Refills 0, Maintenance, NEEDED FOR LOOSESTOOLS, 01/21/23 16:35:00 EST, Route to Pharmacy Electronically, [facility] [id number], 173, cm, 01/02/2317:14:00 EST, Height, 163.3, kg, 01/02/23 17:14:00... Start Date: 01/21/23 Status: Ordered LORazepam 2 mg oral tablet 1 tablet = 2 mg, By Mouth, Daily at bedtime, for 30 days, MassPat checked, # 30 tablet, 5 Refills, Acute 03/24/23 18:15:00 EDT, 09/25/22 18:15:00 EST, [facility]/pharmacy #1234, 175, cm, 09/15/22 17:17:00 EDT, [...] tablet, 1 Refills, Maintenance, 08/26/22 8:54:00 EDT, [facility]/pharmacy #1234, 173, cm, 05/06/22 13:26:00 EDT, Height, 146, kg, 05/06/22 13:26:00 EDT,... Start Date: 08/26/22 Status: Ordered ondansetron 4 mg oral tablet 1 tablet = 4 mg, By Mouth, Every 8 hours, PRN Nausea & Vomiting, # 15 tablet, 0 Refills, Maintenance, 01/07/23 16:25:00 EST, Tablet, [facility], Partial fill upon patient request ifthe [...] 5 Refills, Maintenance, 09/23/22 14:32:00 EST, Tablet, [facility]/pharmacy #1234, 175, cm, 09/15/22 17:17:00 EDT, [...] Team Personnel Name: Michelle Fox RN Position: [facility] RN Member Role: Primary Care Nurse Name: Nyasia Cadet NP Position: [facility] Associate Professional Member Role: Primary Care Nurse Address: Address: [address] [place] [address]- [place] Name: Roni Hunt RN Position: [facility] RN Member Role: Primary Care Nurse Name: Roya Jaramillo RN Position: [facility] RN Member Role: Primary Care Nurse Name: Steve Rose RN Position: [facility] RN Member Role: Primary Care Nurse Name: Tamika Mcguire RN Position: [facility] AMB Nurse Member Role: Primary Care Nurse Name: Gomez Daugherty RN Position: [facility] RN Member Role: Primary Care Nurse Name: Paolo Patterson RN Position: [facility] RN Member Role: Primary Care Nurse Name: Clarisa Mederos RN Position: [facility] RN Member Role: Primary Care Nurse Name: Loreta Pitts RN Position: [facility] RN Member Role: Primary Care Nurse Name: Tom White MD Position: Reference Physician Member Role: PCP Address: Address: [address] [place] [address] [place] [address]- Name: Philomena Benavides RN Position: [facility] RN Member Role: Primary Care Nurse Name: Cortney Benavides RN Position: [facility] RN Member Role: Primary Care Nurse Name: Stefany Lewis RN Position: [facility] ED RN W/OE and Tasks Member Role: Primary Care Nurse Name: Chiquita Cuevas RN Position: [facility] RN Member Role: Primary Care Nurse Name: Stefany Hamilton RN Position: [facility] Hospital Synthetic Department Supervisor Member Role: Primary Care Nurse Name: Dee Davila RN Position: [facility] RN Member Role: Primary Care Nurse Name: Natalie Lopez RN Position: [facility] RN Member Role: Primary Care Nurse Name: Juan Diego Anguiano RN Position: [facility] RN Member Role: Primary Care Nurse Address: Address: [address] [place] [address]- [place] Name: Iwona Jones RN Position: [facility] RN Member Role: Primary Care Nurse Name: Angelika Villa RN Position: [facility] RN Member Role: Primary Care Nurse Name: Brandi Holman RN Position: [facility] OB RN Member Role: Primary Care Nurse Name: Candi Moore RN Position: [facility] SN RN Member Role: Primary Care Nurse Name: Stacy Yadav RN Position: [facility] Hospital Synthetic Department Supervisor Member Role: Primary Care Nurse Name: Kenney Hodge RN Position: [facility] SN RN Member Role: Primary Care Nurse Name: Lexis Byers RN Position: [facility] RN Member Role: Primary Care Nurse Care Team Related Persons Name: RAMÓN HARRELL Address: home [address] [place] [address] Name: RAMÓN CARTAGENA Address: [place] [address] Name: LING WEIR Address: home [address] [place] [address]
--- OUTSIDE RECORDS SUMMARY | 2023-10-13 11:42 | XMS_ITS | Continuity of Care Document ---
Author Name Unknown Organization [facility] Address [address] [place], [place] [address]julio shin, [address] [place] [address]- Care Team Providers Care Principal Web Developer Name Role Phone Christopher RIDDLE, Tom Choudhury Primary Care Physician [phone] Encounter [facility] Date(s): 01/24/23 - 03/26/23 [facility] [address] [place] [address] Drive, [address] [place], [place] [address] Attending Physician: [place] RIDDLE, Ronnie Redman Allergies, Adverse Reactions, Alerts Substance Reaction Severity Status gabapentin Agitation Persistent Moderate Active sulfa drugs rash C/O: itching Persistent Severe Active Toradol C/O: a rash Active Latex itchiness Active Versed 1 dyspnea aggitation throat closes up Persistent Severe Active 1Does fine with Ativan, Valium, Klonopin Immunizations Given and Recorded Vaccine Date Status Refusal Reason pneumococcal 23-valent vaccine 1 08/26/22 Recorded pneumococcal 23-valent vaccine 04/10/17 Given [id number] 12y+ bivalent booster vax 2 08/26/22 Recorded SARS-CoV-2 (COVID-19) mRNA BNT-162b2 vac 10/19/21 Recorded SARS-CoV-2 (COVID-19) mRNA BNT-162b2 vac 04/07/21 Recorded SARS-CoV-2 (COVID-19) mRNA BNT-162b2 vac 03/17/21 Recorded influenza virus vaccine, inactivated 08/12/21 Gentry rded Not Given Vaccine Date Status Refusal Reason influenza virus vaccine, inactivated 08/23/20 Not Given Parent Or Guardian Refuses 1Result Comment: .5ML IM/LD Lot [id number] [facility] [employer] D Exp 08.16.2023 [facility] [phone] 2Result Comment: .3Ml IM/ LD Lot [id number] Exp 10.01.2022 [facility] [phone] Medications budesonide 3 mg oral delayed release capsule See Instructions, TAKE 3 TABLETS DAILY X3 WEEKS THEN 2 TABS DAILY X3 WEEKS THEN 1 TAB DAILY X2 WEEKS THEN STOP, # 77 capsule, 2 Refills, Maintenance, 03/18/23 9:20:00 EDT, [facility] [id number], 173, cm, 03/12/23 12:51:00 EDT, Height, 161.8, [...] tablet, 0 Refills, Maintenance, 02/24/23 8:38:00 EDT, [facility] [id number], 173, cm, 01/27/23 8:03:00 EDT, Height, 164.8, [...] 02/24/23 15:54:00 EDT, Route to Pharmacy Electronically, [facility] STORE [id number], 173, cm, 02/25/2312:35:00 EDT, Height, 164.8, kg, [...] tablet, 1 Refills, Maintenance, 08/26/22 8:54:00 EDT, [facility]/pharmacy #1234, 173, cm, 05/06/22 13:26:00 EDT, [...] Team Personnel Name: Michelle Fox RN Position: [facility] RN Member Role: Primary Care Nurse Name: Nyasia Cadet NP Position: [facility] Associate Professional Member Role: Primary Care Nurse Address: Address: [address] [place] [address]- Name: Roni Hunt RN Position: S RN Member Role: Primary Care Nurse Name: Roya Jaramillo RN Position: S RN Member Role: Primary Care Nurse Name: Tamika Mcguire RN Position: [facility] [place] Nurse Member Role: Primary Care Nurse Name: My Fonseca NP Position: S Associate Professional Member Role: Lifetime Consulting Provider Address: Address: [address] [place] [address] [address] [facility] [place] [place] [address]- [place] Name: Gomez Daugherty RN Position: [facility] RN Member Role: Primary Care Nurse Name: Paolo Patterson RN Position: [facility] RN Member Role: Primary Care Nurse Name: Clarisa Mederos RN Position: [facility] RN Member Role: Primary Care Nurse Name: Loreta Pitts RN Position: [facility] RN Member Role: Primary Care Nurse Name: Tom White MD Position: Reference Physician Member Role: PCP Address: Address: [address] [place] [address] [place] [address]- [place] Name: Philomena Benavides RN Position: [facility] RN Member Role: Primary Care Nurse Name: Cortney Benavides RN Position: [facility] RN Member Role: Primary Care Nurse Name: Gloria Mims RN Position: [facility] RN Member Role: Primary Care Nurse Name: Stefany Lewis RN Position: [facility] ED RN W/OE and Tasks Member Role: Primary Care Nurse Name: Chiquita Cuevas RN Position: [facility] RN Member Role: Primary Care Nurse Name: Stefany Hamilton RN Position: [facility] Signals Intelligence Analysis Manager Member Role: Primary Care Nurse Name: Dee Davila RN Position: [facility] RN Member Role: Primary Care Nurse Name: Natalie Lopez RN Position: [facility] RN Member Role: Primary Care Nurse Name: Juan Diego Anguiano RN Position: [facility] RN Member Role: Primary Care Nurse Address: Address: [address] [place] [address]- [place] Name: Iwona Jones RN Position: [facility] RN Member Role: Primary Care Nurse Name: Angelika Villa RN Position: [facility] RN Member Role: Primary Care Nurse Name: Brandi Holman RN Position: [facility] OB RN Member Role: Primary Care Nurse Name: Candi Moore RN Position: [facility] SN RN Member Role: Primary Care Nurse Name: Stacy Yadav RN Position: [facility] Signals Intelligence Analysis Manager Member Role: Primary Care Nurse Name: Kenney Hodge RN Position: [facility] SN RN Member Role: Primary Care Nurse Name: Lexis Byers RN Position: [facility] RN Member Role: Primary Care Nurse Care Team Related Persons Name: JULIO CESAR RAMÓN Address: home [address] [place] [address] Name: RAMÓN CARTAGENA Address: [place] [address] Name: LING WIER Address: home [address] [place] [address]
--- OUTSIDE RECORDS SUMMARY | 2023-10-13 11:42 | XMS_ITS | Continuity of Care Document ---
Author Name Unknown Organization [facility] Address [address] [facility], 3r d Floor, [address] [place] [address]- Care Team Providers Care Public Information Coordinator Name Role Phone Christopher RIDDLE, Tom Choudhury Primary Care Physician [phone] Encounter [facility] Date(s): 01/06/23 - 02/05/23 [facility] [address], [address] Floor, [address] [place] [address] Attending Physician: Josemanuel Galvez Admitting Physician: AdmJosemanuel saenz Referring Physician: AdmtrJosemanuel Allergies, Adverse Reactions, Alerts Substance Reaction Severity [...] 08/26/22 Recorded pneumococcal 23-valent vaccine 04/10/17 Given [id number] 12y+ bivalent booster vax 2 08/26/22 Recorded SARS-CoV-2 (COVID-19) mRNA BNT-162b2 vac 10/19/21 Recorded SARS-CoV-2 (COVID-19) mRNA BNT-162b2 vac 04/07/21 Recorded SARS-CoV-2 (COVID-19) mRNA BNT-162b2 vac 03/17/21 Recorded influenza virus vaccine, inactivated 08/12/21 Gentry rded Not Given Vaccine Date Status Refusal Reason influenza virus vaccine, inactivated 08/23/20 Not Given Parent Or Guardian Refuses 1Result Comment: .5ML IM/LD Lot [id number] [facility] [employer] D Exp 08.16.2023 [facility] [phone] 2Result Comment: .3Ml IM/ LD Lot [id number] Exp 10.01.2022 [facility] [phone] Medications budesonide 3 mg oral delayed release capsule See Instructions, TAKE 3 TABLETS DAILY X3 WEEKS THEN 2 TABS DAILY X3 WEEKS THEN 1 TAB DAILY X2 WEEKS THEN STOP, # 77 capsule, 2 Refills, Maintenance, 12/24/22 8:57:00 EST, [facility] STORE [id number], 175, cm, 12/22/22 3:33:00 EST, Height, 163.5, kg, 12/17/22 13:... Start Date: 12/24/22 Status: Ordered busPIRone 7.5 mg oral tablet 1 tablet = 7.5 mg, By Mouth, 2 times a day Start Date: 11/25/22 Status: Ordered dicyclomine 20 mg oral tablet 1 tablet, By Mouth, 3 times a day, # 90 tablet, 0 Refills, Maintenance, 12/09/22 14:29:00 EST, [facility]/pharmacy #1234, 175, cm, 11/27/22 15:01:00 EST, Height, 163.5, kg, 11/24/22 14:49:00 EST, Dry Weight Start Date: 12/09/22 Status: Ordered docusate sodium 100 mg oral capsule 100 mg, 1, capsule, By Mouth, 2 times a day, # 20 capsule, Refills 0, Tot. Refills 0, Maintenance, 01/07/23 16:27:00 EST, Route to Pharmacy Electronically, [facility], Partial fill uponpatient request [...] 11/27/22 13:43:00 EST, Route to Pharmacy Electronically, [facility], Partial fill upon patient request if the prescription is for a schedule II opioi... Start Date: 11/27/22 Status: Ordered loperamide 2 mg oral capsule 1, capsule, By Mouth, Every 4 hours, PRN, # 60 capsule, Refills 0, Maintenance, NEEDED FOR LOOSESTOOLS, 01/21/23 16:35:00 EST, Route to Pharmacy Electronically, [facility] STORE [id number], 173, cm, 01/02/2317:14:00 EST, Height, 163.3, kg, 01/02/23 17:14:00... Start Date: 01/21/23 Status: Ordered LORazepam 2 mg oral tablet 1 tablet = 2 mg, By Mouth, Daily at bedtime, for 30 days, MassPat checked, # 30 tablet, 5 Refills, Acute 03/24/23 18:15:00 EDT, 09/25/22 18:15:00 EST, [facility]/pharmacy #1234, 175, cm, 09/15/22 17:17:00 EDT, Height, [...] tablet, 1 Refills, Maintenance, 08/26/22 8:54:00 EDT, [facility], 173, cm, 05/06/22 13:26:00 EDT, Height, 146, kg, 05/06/22 13:26:00 EDT,... Start Date: 08/26/22 Status: Ordered ondansetron 4 mg oral tablet 1 tablet = 4 mg, By Mouth, Every 8 hours, PRN Nausea & Vomiting, # 15 tablet, 0 Refills, Maintenance, 01/07/23 16:25:00 EST, Tablet, [facility], Partial fill upon patient [...] 5 Refills, Maintenance, 09/23/22 14:32:00 EST, Tablet, [facility]/pharmacy #1234, 175, cm, 09/15/22 17:17:00 EDT, Height, [...] Team Personnel Name: Michelle Fox RN Position: [facility] RN Member Role: Primary Care Nurse Name: Nyasia Cadet NP Position: [facility] Associate Professional Member Role: Primary Care Nurse Address: Address: [address] [place] [address]- [place] Name: Roni Hunt RN Position: [facility] RN Member Role: Primary Care Nurse Name: Roya Jaramillo RN Position: [facility] RN Member Role: Primary Care Nurse Name: Steve Rose RN Position: [facility] RN Member Role: Primary Care Nurse Name: Tamika Mcguire RN Position: [facility] AMB Nurse Member Role: Primary Care Nurse Name: Gomez Daugherty RN Position: [facility] RN Member Role: Primary Care Nurse Name: Paolo Patterson RN Position: [facility] RN Member Role: Primary Care Nurse Name: Clarisa Mederos RN Position: [facility] RN Member Role: Primary Care Nurse Name: Loreta Pitts RN Position: [facility] RN Member Role: Primary Care Nurse Name: Tom White MD Position: Reference Physician Member Role: PCP Address: Address: [address] [place] [address] [place] [address]- Name: Philomena Benavides RN Position: [facility] RN Member Role: Primary Care Nurse Name: Cortney Benavides RN Position: [facility] RN Member Role: Primary Care Nurse Name: Stefany Lewis RN Position: [facility] ED RN W/OE and Tasks Member Role: Primary Care Nurse Name: Chiquita Cuevas RN Position: [facility] RN Member Role: Primary Care Nurse Name: Stefany Hamilton RN Position: [facility] Hospital Intern Member Role: Primary Care Nurse Name: Dee Davila RN Position: [facility] RN Member Role: Primary Care Nurse Name: Natalie Lopez RN Position: [facility] RN Member Role: Primary Care Nurse Name: Juan Diego Anguiano RN Position: [facility] RN Member Role: Primary Care Nurse Address: Address: [address] [place] [address]- [place] Name: Iwona Jones RN Position: [facility] RN Member Role: Primary Care Nurse Name: Angelika Villa RN Position: [facility] RN Member Role: Primary Care Nurse Name: Brandi Holman RN Position: [facility] OB RN Member Role: Primary Care Nurse Name: Candi Moore RN Position: [facility] SN RN Member Role: Primary Care Nurse Name: Stacy Yadav RN Position: [facility] Hospital Intern Member Role: Primary Care Nurse Name: Naveen RN Hteekareginald Position: [facility] SN RN Member Role: Primary Care Nurse Name: Lexis Byers RN Position: [facility] RN Member Role: Primary Care Nurse Care Team Related Persons Name: RAMÓN HARRELL Address: [address] [place] [address] Name: RAMÓN CARTAGENA Address: [place] [address] Name: LING WEIR Address: home [address] [place] [address]
--- OUTSIDE RECORDS SUMMARY | 2023-10-13 11:42 | XMS_ITS | Continuity of Care Document ---
Author Name Unknown Organization [facility] ter Address [address] [place] [address]- Care Team Providers Care Textile Technologist Name Role Phone Kp RIDDLE, Marisela John Primary Care Physicia n [place] [facility] [place]12[place]23 - 03/12/[address] [address] Discharge Disposition: A-D/C Home Attending Physician: Osmany Garner MD Admitting Physician: Osmany Garner MD Referring Physician: sOmany Garner MD Allergies, Adverse Reactions, Alerts Substance Reaction [...] 08/26/22 Recorded pneumococcal 23-valent vaccine 04/10/17 Given [id number] 12y+ bivalent booster vax 2 08/26/22 Recorded SARS-CoV-2 (COVID-19) mRNA BNT-162b2 vac 10/19/21 Recorded SARS-CoV-2 (COVID-19) mRNA BNT-162b2 vac 04/07/21 Recorded SARS-CoV-2 (COVID-19) mRNA BNT-162b2 vac 03/17/21 Recorded influenza virus vaccine, inactivated 08/12/21 [place]entry rded Not Given Vaccine Date Status Refusal Reason influenza virus vaccine, inactivated 08/23/20 Not Given Parent Or Guardian Refuses 1Result Comment: .5ML IM/LD Lot [id number] [employer] D Exp 08.16.2023 [facility] [phone] 2Result Comment: .3Ml IM/ LD Lot [id number] Exp 10.01.2022 [facility] [phone] Medications Augmentin 875 mg-125 mg oral tablet 1 tablet, By Mouth, Every 12 hours, for 5 days, with food or milk, # 10 tablet, 0 Refills, Acute 03/17/23 14:28:00 EDT, 03/12/23 14:28:00 EDT, [facility]/pharmacy #1234, Partial fill upon patient request ifthe prescription is for a schedule II opioid drug.,... Start Date: 03/12/23 Stop Date: 03/17/23 Status: Ordered busPIRone 10 mg oral tablet [...] Refills, Maintenance, 02/24/23 8:38:00 EDT, [id number], 173, cm, 01/27/23 8:03:00 EDT, Height, 164.8, [...] 02/24/23 15:54:00 EDT, Route to Pharmacy Electronically, [id number], 173, cm, 02/25/2312:35:00 EDT, Height, 164.8, kg, 02/11/23 10:22:00... Start Date: 02/24/23 Status: Ordered LORazepam 2 mg oral tablet 1 tablet = 2 mg, By Mouth, Daily at bedtime, for 30 days, MassPat checked, # 30 tablet, 5 Refills, Acute 03/24/23 18:15:00 EDT, 09/25/22 18:15:00 EST, [facility]/pharmacy #1234, 175, cm, 09/15/22 17:17:00 EDT, [...] tablet, 1 Refills, Maintenance, 08/26/22 8:54:00 EDT, [facility]/pharmacy #1234, 173, cm, 05/06/22 13:26:00 EDT, Height, 146, kg, 05/06/22 13:26:00 EDT,... Start Date: 08/26/22 Status: Ordered oxyCODONE 5 mg oral tablet 5 mg, 1, tablet, By Mouth, Every 6 hours, PRN, # 7 tablet, Refills 0, Tot. Refills 0, Acute 03/19/23 17:00:00 EDT, for pain, 03/12/23 14:28:00 EDT, Route to Pharmacy Electronically, [facility]/pharmacy #1234, Partial fill upon patient request if the prescrip... Start Date: 03/12/23 Stop Date: 03/19/23 Status: Ordered Oxycodone 5mg Oral Tablet (PACU ONLY) 5 mg, Tablet, By Mouth, Once, in PACU ONLY, PRN for Pain , Moderate, Routine, 03/12/23 14:13:00 EDT Start Date: 03/12/23 Stop Date: 03/12/23 Status: Completed Risperidone = 0.5 mg, By Mouth, Daily [...] opioid drug. Start Date: 03/08/23 Status: Ordered Tylenol 325 mg oral tablet 650 mg, 2, tablet, By Mouth, Every 6 hours, PRN, not to exceed 4000 mg/day, # 120 tablet, Refills 0, Tot. Refills 0, Acute 03/19/23 17:00:00 EDT, for pain, 03/12/23 14:27:00 EDT, Route to Pharmacy Electronically, [facility]/pharmacy #1234, Partial fill upon... Start Date: 03/12/23 Stop Date: 03/19/23 Status: Ordered Vimpat 150 mg oral tablet 1 tablet = 150 mg, By Mouth, 2 times a day, MassPat checked., # 60 tablet, 5 Refills, Maintenance, 09/23/22 14:32:00 EST, Tablet, [facility]/pharmacy #1234, 175, cm, 09/15/22 17:17:00 EDT, [...] Seizure Confirmed Active Severe obesity Confirmed Active Vital Signs Most recent to oldest [Reference Range]: 1 2 3 Height 173 cm (03/12/23 12:51 PM) 173 cm (03/08/23 12:00 PM) 173 cm (01/02/23 5:14 PM) Weight 161.8 kg (03/12/23 12:51 PM) 163.5 kg (03/08/23 12:00 PM) 163.3 kg (01/02/23 5:14 PM) Oxygen Saturation [94-100 %] 95 % (03/12/23 3:30 PM) 93 % *L* (03/12/23 3:15 PM) 100 % (03/12/23 3:00 PM) Pulse Rate [55-90 bpm] 82 bpm (03/12/23 12:51 PM) Body Mass Index [18.5-24.99 kg/m2] 54.06 kg/m2 *>HHI* (03/12/23 12:51 PM) 54.63 kg/m2 *>HHI* (03/08/23 12:00 PM) 54.56 kg/m2 *>HHI* (01/02/23 5:14 PM) Blood Pressure [90-138/55-84 mm Hg] 114/94mm Hg (03/12/23 3:30 PM) 145/90mm Hg *H* (03/12/23 3:30 PM) 126/69mm Hg (03/12/23 3:15 PM) Respiratory Rate [16-30 br/min] 20 br/min (03/12/23 3:30 PM) 17 br/min (03/12/23 3:30 PM) 19 br/min (03/12/23 3:26 PM) Temperature [96.8-100.4 DegF] 98.2 DegF (03/12/23 3:30 PM) 98.2 DegF (03/12/23 2:45 PM) 98.4 DegF (03/12/23 12:51 PM) Mode of Delivery (Oxygen) Room air (03/12/23 3:30 PM) Room air (03/12/23 3:15 PM) Shovel mask (03/12/23 3:00 PM) Blood pressure sites Arm, left (03/12/23 3:30 PM) Arm, left (03/12/23 2:45 PM) Temperature Route Temporal (03/12/23 3:30 PM) Temporal (03/12/23 2:45 PM) Temporal (03/12/23 12:51 PM) Dry Weight 161.8 kg (03/12/23 12:51 PM) 163.5 kg (03/08/23 12:00 PM) 163.3 kg (01/02/23 5:14 PM) Weight Obtained Via Standing scale (03/12/23 12:51 PM) Patient/family stated (03/08/23 12:00 PM) Patient/family stated (01/02/23 5:14 PM) Dry Weight Obtained Via Patient/family s tated (03/08/23 12:00 PM) Patient/family stated (01/02/23 5:14 PM) Social History Social History Type Response Smoking Status Former smoker, quit more than 30 days ago; Interested in cessation: Yes; Patient wants NRT during admission Yes; Type: Cigarettes; Total pack years: 8; Started at age: 18; entered on: 05/06/22 Sex Note * Rosalva CORNELL, Charissa: PERFORM Event Display: Discharge/Transfer Note Hospital Authored Date: [id number] Nursing Discharge Note Entered On: 03/12/2023 15:54 EDT Performed On: 03/12/2023 15:53 EDT by Charissa Blackwell RN Nursing Discharge Note 2 Discharge Time : 03/12/2023 15:53 EDT Discharge Level of Care at Discharge : Home/Halfway/Foster Care Patient Left Unit Via : Wheelchair Patient Accompanied Off Unit with : Significant other DC Instructions Provided & Signed by Pt : Yes Patient Understands D/C Instructions : Yes Verbalized Understanding of D/C Plan By : Patient, Significant other Patient Instructions Discharge Signed : Yes Did Pt have Specialty Bed or Wound Vac : No Charissa Blackwell RN - 03/12/2023 15:54 EDT * Charissa Blackwell RN: PERFORM Event Display: Patient Education/Instruction Authored Date: [id number] Inpatient Adult Discharge Instructions [address] [address] Name: KIRILL WEIR : 1985 Visit: 03/12/2023 11:21:00 Current Date: 03/12/2023 15:13 Account: [id number] Inpatient Adult Discharge Instructions We would like to thank you for allowing us to assist you with your healthcare needs. The following includes patient education materials and information regarding your injury/illness. Our entire staffstrives to provide an excellent experience for our patients and their families. PLEASE ENSURE YOU FOLLOW-UP PER THE INSTRUCTIONS BELOW! ?? YOUR OPINION IS IMPORTANT TO US! Please complete the survey you may receive by mail or email. Your feedback will be used to make improvements to the healthcare experiences of our patients and their families. Surveys are administered by [employer] ?? If further treatment with your primary care physician or another doctor is recommended, it is important for you to keep the appointment. Call your primary care physician or return to the Emergency Department immediately if your condition worsens, fails to improve, or new symptoms develop. If you need to find a doctor, you can call [facility] for a referral at [phone] or toll free at [phone] or log in to [email or web address].. ?? You can view and manage your care through the patient portal or by using a health care erlinda of your choosing. [email or web address] is a website that allows you to securely view your medical information including your hospital discharge summary, office visit summaries, medications and follow-up visits. You can also request appointments, renew medications, and request access to your medical information using a health care erlinda of your choosing, or just ask a question. You can enroll at [email or web address] or register during your next office visit. You have been discharged from [facility], Patient Care Unit: [facility]. If you have any questions regarding these instructions after you leave, please call us and we will be happy to assist you. [facility] Your Care Team Attending Physician Osmany Garner MD Discharging Providers Pascual RIDDLE, Osmany Yun Reason for Your Visit LEFT UPPER EYELID BX CS DS Tests Performed Below is a partial list of the tests performed during your hospitalization. You may have had other tests and procedures not included in this list. Please discuss all test results with your provider. GLUCOSE POC Primary Care Provider pK RIDDLE, Marisela John Advance Directive . Discharge Vitals Temperature: 98.2 DegF Height: 173 cm Pulse Rate: 82 bpm Weight: 161.8 kg Respiratory Rate: 19 br/min Body Mass Index:??54.06 kg/m2??Critical Systolic Blood Pressure: 112 mm Hg Body surface area: 2.79 Diastolic Blood Pressure: 64 mm Hg ?? Oxygen Saturation: 100 % ?? Studies Pending All tests and labs ordered during this hospital stay have been completed unless listed below. Please discuss all pending results with your provider listed above in these instructions. ?? No incomplete studies found What to do next Instructions From Your Doctor Discharge Orders Instructions from your Care Team Can shower but avoid direct spray to the surgical site. ?? Head of bed elevated. ?? No icing the surgical site. ?? No strenuous activity. ?? Clean incisions gently/daily with warm soapy water and Qtip then apply THIN layer of Tobrex to the incision. ?? Follow up as instructed. ?? Prescriptions (Tylenol, oxycodone, Augmentin) sent to pharmacy on file. ? Scheduled Follow-Up Appointments Friday. 2022 10:30 AM EDT ?? With: Where: [facility] [address] [facility] 3rd Floor, [address] [place] [address]- Friday 2:00 PM EDT ?? With: Mary Morales NP Where: [facility] Plastic Surgery [address] [place] [address]- Friday 10:00 AM EDT ?? With: Mary Morales NP Where: [facility] Plastic Surgery [address] [place] [address]- Friday 9:40 AM EDT ?? With: Osmany Garner MD Where: [facility] Plastic Surgery [address] [place] [address]- You Need to Schedule the Following Appointments Follow Up with??Osmany Garner When?? Where: [address] [place] [address] [address] [place] [address]- Business (1) Follow Up with??Marisela Goodrich When??In 0 days Where: [address] [place] [address]- Business (1) Discharge Medications KIRILL WERI :1985 Visit Date:03/12/2023 Medications: Please continue your medications until treatment is completed or stopped by your provider. Medications not listed below should be discontinued. Discuss any questions related to medications with your provider. What How Much When Instructions Next Dose Changed Insulin Glargine (Lantus 100 u/ ml subcutaneous solution) 38 unit(s) Daily at Bedtime Unchanged Acetaminophen (Tylenol 325 mg oral tablet) 2 tab(s) Oral Every 6 hours as needed for for pain not to exceed 4000 mg/ day ?? Unchanged Amoxicillin-Clavulanate (Augmentin 875 mg-125 mg oral tablet) 1 tab(s) Oral Every 12 hours Duration: 5 Days with food or milk ?? Unchanged BusPIRone (busPIRone 10 mg oral tablet) 1 tab(s) Oral 3 times a day Unchanged Cholecalciferol (Vitamin D3 50,000 intl units oral capsule) 1 capsule Oral Every Friday Unchanged Cyclobenzaprine (Flexeril 10 mg oral tablet) 1 tab(s) Oral 3 times a day as needed for for spasm Unchanged Dicyclomine (dicyclomine 20 mg oral tablet) 1 tab(s) Oral 3 times a day Unchanged dulaglutide (Trulicity Pen 0.75 mg/ 0.5 mL subcutaneous solution) 0.5 Milliliter Subcutaneous Injection Every week friday ?? Unchanged Escitalopram (escitalopram 10 mg oral tablet) 1 tab(s) Oral Daily in the morning Unchanged Fenofibrate (fenofibrate 145 mg oral tablet) 1 tab(s) Oral Daily in the morning Unchanged Lacosamide (Vimpat 150 mg oral tablet) 1 tab(s) Oral Twice a day Duration: 30 Days MassPat checked. ?? Unchanged Loperamide (loperamide 2 mg oral capsule) 1 capsule Oral Every 4 hours as needed for NEEDED FOR LOOSE STOOLS Unchanged Lorazepam (LORazepam 2 mg oral tablet) 1 tab(s) Oral Daily at Bedtime Duration: 30 Days MassPat checked ?? Unchanged Naratriptan (naratriptan 1 mg oral tablet) See instructions TAKE 1 TABLET BY MOUTH AT ONSET OF HEADACHE, MAY REPEAT ONCE IN 4 HOURS IF NEEDED ?? Unchanged Oxycodone (oxyCODONE 5 mg oral tablet) 1 tab(s) Oral Every 6 hours as needed for for pain Unchanged Pregabalin (Lyrica 100 mg oral capsule) 2 capsule Oral Twice a day Unchanged Risperidone 0.5 Milligram Oral Daily at Bedtime Unchanged Risperidone (risperiDONE 2 mg oral tablet) 1 tab(s) Oral Daily at Bedtime Test Results Below is a partial list of the most recent Laboratory test results done prior to this discharge. You may have had other tests and procedures not included in this list. Please discuss all test resultswith your provider. GLUCOSE POC (03/12/2023) ???Glucose, POC - 92 mg/dL Allergies (NKA means No Known Allergies) Versed??(dyspnea, aggitation, throat closes up) gabapentin??(Agitation) sulfa drugs??(rash, C/O: itching) Latex??(itchiness) Toradol??(C/O: a rash) Problems Active Problems??(7) Biliary colic?? Depression?? Epileptic seizures?? Intractable diarrhea?? Morbid obesity?? Seizure?? Severe obesity?? Education Materials Below is the list of Educational Leaflet Providered with your Discharge Instructions. Surgery Medical Daystay Surgical Overnight Discharge Instructions?? Valuables and Belongings I fully understand and agree that [facility] accepts no responsibility for all my personal property including clothing, toilet articles, radios, jewelry, dentures, hearing aids, rings, money, or any other property that is in my possession or is brought to me after admission. I understand certain valuables may be placed in a hospital safe for a short period of time. I understand that the hospital is not liable for loss or damage due to accident, fire, or other natural occurrence while said property is in the safe. I accept full responsibility for any personal property that I keep with me, and will not hold the hospital responsible in case of loss or disappearance. I acknowledge that i have been encouraged to send valuables and belongings home. ?? Date for Pt to Sign Valuables/Belongings: 03/12/23 12:51:00 ?? Valuables & Belongings ?? Clothes Electronic devices Jewelry Monetary Items Personal devices Miscellaneous Medications (Valuables) Valuables at Bedside Jacket, Pants, Shirt, Shoes, Undergarments Cell phone ?? Purse ? Valuables Sent Home ? Valuables Sent to Security ? Other Discharge Information ? Pulmonary Rehab Status?? Pulmonary Rehab Discharge Status?? Respiratory Rate: 19 br/min ? Common Emergency Awareness Tips IS IT A STROKE? Act FAST and Check for these signs: FACE Does the face look uneven? ARM Does one arm drift down? SPEECH Does their speech sound strange? TIME Call at any sign of stroke ?? Heart Attack Signs Chest discomfort: Most heart attacks involve discomfort in the center of the chest and lasts more than a few minutes, or goes away and comes back. It can feel like uncomfortable pressure, squeezing, fullness or pain. Discomfort in upper body: Symptoms can include pain or discomfort in one or both arms, back, neck, jaw or stomach. Shortness of breath: With or without discomfort. Other signs: Breaking out in a cold sweat, nausea, or lightheaded. Remember, MINUTES DO MATTER. If you experience any of these heart attack warning signs, call to get immediate medical attention! ?? Smoking can increase your chances of developing chronic health problems and can cause harmful effects to other family members in your house. If you smoke, you are strongly encouraged to quit. Please call [facility] at [phone] or [phone] ([phone]) or log in to [email or web address] for referrals to smoking cessation programs. ?? 251 Suicide & Crisis Lifeline is available 09/06 if you or someone you know needs to find a reason to keep living. By calling 021 you'll be connected to a skilled, trained counselor at a crisis center in your area. INPATIENT DISCHARGE INSTRUCTIONS SIGNATURE PAGE KIRILL WEIR Location:[facility] Registration Date and Time:03/12/2023 11:21 EDT Primary Care Physician: Kp RIDDLE, Marisela John, I KIRILL WEIR, have received the above patient education materials/instructions and have verbalized understanding. If ambulance or transport services are being used I further acknowledge being given a choice of service. ?? If you need to contact me, please call me at this number: . Patient/Jewel Lathe Operator Name: Patient/Jewel Lathe Operator Signature: Relationship to Patient: Witness Name/Signature: Date: * Charissa Blackwell RN: PERFORM, SIGN, VERIFY Event Display: Patient Education Handout Authored Date: * Charissa Blackwell RN: PERFORM Event Display: Patient Education Leaflets Authored Date: Surgery Medical Daystay Surgical Overnight Discharge Instructions ?? 295 Medical Daystay/Surgical Overnight Discharge Instructions ? Since your coordination and judgment may be altered by medication and/or anesthesia, a responsible adult must drive you home from the hospital. ? If you have received medication for pain or sedation while under our care, you should not drive, operate machinery, drink alcohol, or sign any legal documents for 24 hours.?? You should have someone with you at home tonight. ? Remain at home the day of discharge.?? You may be up and about unless otherwise instructed by your physician. ? You may resume your daily prescription medication schedule.?? Any depressant medication should be avoided for 24 hours unless otherwise instructed by your surgeon or anesthesiologist. ? Call your physician for a follow-up appointment.? If you experience unusual or severe pain not relied by your pain medication, excessive bleedingor drainage, persistent nausea and vomiting, excessive swelling or redness, foul odor from incisionsite or fever over 100.6F, you need to call your physician. ? A follow-up phone call by a nurse will be made the day after your procedure.?? If you have stayed with us over night, you will not be receiving a follow-up phone call. ? Nausea and vomiting are a common side effect of prescription pain medication.?? We recommend that pills are not taken on an empty stomach.?? While taking any prescription pain medication you should not drive or drink alcohol. ? Patient Care team information Care Team Personnel Name: Michelle Fox RN Position: [facility] RN Member Role: Primary Care Nurse Name: Nyasia Cadet NP Position: [facility] Associate Professional Member Role: Primary Care Nurse Address: Address: [address] [place] [address]- Name: Roni Hunt RN Position: [facility] RN Member Role: Primary Care Nurse Name: Roya Jaramillo RN Position: [facility] RN Member Role: Primary Care Nurse Name: Steve Rose RN Position: [facility] RN Member Role: Primary Care Nurse Name: Tamika Mcguire RN Position: [facility] AMB Nurse Member Role: Primary Care Nurse Name: My Fonseca NP Position: [facility] Associate Professional Member Role: Lifetime Consulting Provider Address: Address: [address] [place] [address] [address] [facility] [place] [address]- Name: Gomez Daugherty RN Position: S RN Member Role: Primary Care Nurse Name: Paolo Patterson RN Position: S RN Member Role: Primary Care Nurse Name: Clarisa Mederos RN Position: S RN Member Role: Primary Care Nurse Name: Loreta Pitts RN Position: S RN Member Role: Primary Care Nurse Name: Philomena Benavides RN Position: S RN Member Role: Primary Care Nurse Name: Cortney Benavides RN Position: [facility] RN Member Role: Primary Care Nurse Name: Kp RIDDLE, Marisela John Position: Reference Physician Member Role: PCP Address: Address: [address] [place] [address]- [place] Name: Gloria Mims RN Position: [facility] RN Member Role: Primary Care Nurse Name: Stefany Lewis RN Position: [facility] ED RN W/OE and Tasks Member Role: Primary Care Nurse Name: hCiquita Cuevas RN Position: [facility] RN Member Role: Primary Care Nurse Name: Stefany Hamilton RN Position: [facility] Sales Agent Food Vending Service Member Role: Primary Care Nurse Name: Dee Davila RN Position: [facility] RN Member Role: Primary Care Nurse Name: Natalie Lopez RN Position: [facility] RN Member Role: Primary Care Nurse Name: Juan Diego Anguiano RN Position: [facility] RN Member Role: Primary Care Nurse Address: Address: [address] [place] [address]- [place] Name: Iwona Jones RN Position: [facility] RN Member Role: Primary Care Nurse Name: Angelika Villa RN Position: [facility] RN Member Role: Primary Care Nurse Name: Brandi Holman RN Position: [facility] OB RN Member Role: Primary Care Nurse Name: Candi Moore RN Position: [facility] SN RN Member Role: Primary Care Nurse Name: Stacy Yadav RN Position: [facility] Sales Agent Food Vending Service Member Role: Primary Care Nurse Name: Goran Hodge RNeekareginald Position: [facility] SN RN Member Role: Primary Care Nurse Name: Lexis Byers RN Position: [facility] RN Member Role: Primary Care Nurse Care Team Related Persons Name: RAMÓN HARRELL Address: home [address] [place] [address] Name: RAMÓN CARTAGENA Address: [place] [address] Name: LING WEIR Address: home [address] [place] [address]
--- OUTSIDE RECORDS SUMMARY | 2023-10-13 11:42 | XMS_ITS | Continuity of Care Document ---
Author Name Unknown Organization [facility] Address [address] [place] [address]- Care Team Providers Care Checker Loader Name Role Phone Jh RIDDLE, Alexandria Hendrix Primary Care Physic blaise Encounter [facility] [place] Date(s): 10/18/19 - 10/28/19 [facility] [address] [place] [address]- [facility] Attending Physician: Josemanuel Galvez Admitting Physician: AdmJosemanuel saenz Referring Physician: AdmJosemanuel saenz Allergies, Adverse Reactions, Alerts Substance Reaction Severity Status gabapentin Agitation Persistent Moderate Active sulfa drugs rash C/O: itching Persistent Severe Active Versed 1 dyspnea aggitation throat closes up Persistent Severe Active Latex itchiness Active 1Does fine with Ativan, Valium, Klonopin Immunizations Given and Recorded Vaccine Date Status Refusal Reason pneumococcal 23-valent vaccine 04/10/17 Given Medications carBAMazepine 100 mg oral tablet, extended release 100 mg, 1, tablet, By Mouth, Daily at bedtime, take with Carbamazepine 600mg for a total hs dose [id number], # 90 tablet, Refills 0, Tot. Refills 0, Maintenance, 07/27/19 15:39:13 EDT, Route to Pharmacy Electronically, [id number]... Start Date: 07/27/19 Stop Date: 10/25/19 Status: Ordered carBAMazepine 300 mg oral capsule, extended release 2 capsule = 600 mg, By Mouth, 2 times a day, take in addition to 100mg cap @night, # 360 capsule, 0Refills, Maintenance, 07/27/19 15:40:09 EDT, CR Capsule, Change to 90 Day Supply Start Date: 07/27/19 Stop Date: 10/25/19 Status: Ordered cyclobenzaprine 10 mg oral tablet 10 mg, 1, tablet, By Mouth, 3 times a day, PRN, # 30 tablet, Refills 0, Maintenance, for spasm, 01/18/19 11:14:20 EST Start Date: 01/18/19 Status: Ordered diazePAM 5 mg/5 mL oral solution 2 mL = 2 mg, By Mouth, 2 times a day, PRN as needed for anxiety, 0 Refills, Maintenance, 01/18/19 11:08:36 EST, Solution Start Date: 01/18/19 Status: Ordered fluconazole 150 mg oral tablet 1 tablet = 150 mg, By Mouth, Once, PRN As needed, Maintenance, 08/02/19 10:11:57 EDT, Tablet Start Date: 08/02/19 Status: Ordered Imitrex 50 mg oral tablet See Instructions, 1 tablet By Mouth at onset of headache. May repeat once in 2 hours. Not > 4/ week., # 9 tablet, 0 Refills, Maintenance, 10/22/19 16:07:58 EST, 178, cm, 10/15/19 18:31:25 EST, Height, 127, kg, 10/15/19 14:53:58 EST, Dry Weight Start Date: 10/22/19 Status: Ordered lacosamide 10 mg/mL oral solution 20 mL = 200 mg, By Mouth, 2 times a day, # 1,200 mL, 0 Refills, Maintenance, 03/26/19 12:03:02 EDT,Solution Start Date: 03/26/19 Status: Ordered lisinopril 10 mg oral tablet 10 mg, 1, tablet, By Mouth, Daily in AM, TAKE 1 TABLET BY MOUTH EVERY DAY Start Date: 04/06/18 Status: Ordered multivitamin Multiple Vitamins oral tablet, chewable 2 tablets, Chew, Daily, # 100 tablet, 0 Refills, Maintenance, 01/18/19 11:10:19 EST, Chew Tablet Start Date: 01/18/19 Status: Ordered Nicotine = 14 mg, Topically, Daily, 0 Refills, Maintenance, 06/22/19 18:31:20 EDT Start Date: 06/22/19 Status: Ordered oxyCODONE 5 mg oral tablet 5 mg, 1, tablet, By Mouth, Every 6 hours, PRN, Refills 0, Tot. Refills 0, Maintenance, for pain, 06/03/19 16:26:21 EDT, Partial fill upon patient request Start Date: 06/03/19 Status: Ordered Phenergan Liquid 5 mL, By Mouth, 4 times a day, PRN as needed for nausea/vomiting, 0 Refills, Maintenance, 01/18/19 11:05:53 EST Start Date: 01/18/19 Status: Ordered traZODone 50 mg oral tablet 100 mg, 2, tablet, By Mouth, Daily at bedtime Start Date: 04/06/18 Status: Ordered Vimpat 150 mg oral tablet 1 tablet = 150 mg, By Mouth, 2 times a day, MassPat checked, # 60 tablet, 0 Refills, Maintenance, 10/18/19 11:18:09 EST, Tablet Start Date: 10/18/19 Status: Ordered Vitamin B12 = 1,000 mcg, Intramuscular, Every 28 days, receives injection at PCP's office q month, Maintenance,10/29/16 12:36:17 Start Date: 10/29/16 Status: Ordered Vitamin D3 = 2,000 International_Units, By Mouth, Daily, 0 Refills, Maintenance, 11/18/16 12:23:35 Start Date: 11/18/16 Status: Ordered Zoloft 50 mg oral tablet 2 tablet = 100 mg, By Mouth, Daily at bedtime, 0 Refills, Maintenance, 06/22/19 18:30:22 EDT, Tablet Start Date: 06/22/19 Status: Ordered Problem List Condition Effective Dates Status Health Status Inform ant Epileptic seizures(Confirmed) Active Morbid obesity(Confirmed) Active Seizure(Confirmed) Active Social History Social History Type Response Smoking Status Former smoker, quit more than 30 days ago entered on: 08/02/19 Sex
--- OUTSIDE RECORDS SUMMARY | 2023-10-13 11:43 | XMS_ITS | Continuity of Care Document ---
Author Name Unknown Organization [facility] Address [address] [place], [place] [address]julio shin, [address] [place] [address]- Care Team Providers Care Furniture Duster Name Role Phone Christopher RIDDLE, Tom Choudhury Primary Care Physician Encounter [facility] [id number] Date(s): 01/22/23 - 01/29/23 [facility] [address] [place] [address] Drive, [address] [place] [address]- Attending Physician: Ronnie Boyle MD Allergies, Adverse Reactions, Alerts Substance Reaction [...] 08/26/22 Recorded pneumococcal 23-valent vaccine 04/10/17 Given [id number] 12y+ bivalent booster vax 2 08/26/22 Recorded SARS-CoV-2 (COVID-19) mRNA BNT-162b2 vac 10/19/21 Recorded SARS-CoV-2 (COVID-19) mRNA BNT-162b2 vac 04/07/21 Recorded SARS-CoV-2 (COVID-19) mRNA BNT-162b2 vac 03/17/21 Recorded influenza virus vaccine, inactivated 08/12/21 Gentry rded Not Given Vaccine Date Status Refusal Reason influenza virus vaccine, inactivated 08/23/20 Not Given Parent Or Guardian Refuses 1Result Comment: .5ML IM/LD Lot [id number] [employer] D Exp 08.16.2023 [facility] [phone] 2Result Comment: .3Ml IM/ LD Lot [id number] Exp 10.01.2022 [facility] [phone] Medications budesonide 3 mg oral delayed release capsule See Instructions, TAKE 3 TABLETS DAILY X3 WEEKS THEN 2 TABS DAILY X3 WEEKS THEN 1 TAB DAILY X2 WEEKS THEN STOP, # 77 capsule, 2 Refills, Maintenance, 12/24/22 8:57:00 EST, [facility] STORE [id number], 175, cm, 12/22/22 3:33:00 EST, Height, 163.5, kg, 12/17/22 13:... Start Date: 12/24/22 Status: Ordered busPIRone 7.5 mg oral tablet 1 tablet = 7.5 mg, By Mouth, 2 times a day Start Date: 11/25/22 Status: Ordered dicyclomine 20 mg oral tablet 1 tablet, By Mouth, 3 times a day, # 90 tablet, 0 Refills, Maintenance, 12/09/22 14:29:00 EST, [facility]/pharmacy #1234, 175, cm, 11/27/22 15:01:00 EST, Height, 163.5, kg, 11/24/22 14:49:00 EST, Dry Weight Start Date: 12/09/22 Status: Ordered docusate sodium 100 mg oral capsule 100 mg, 1, capsule, By Mouth, 2 times a day, # 20 capsule, Refills 0, Tot. Refills 0, Maintenance, 01/07/23 16:27:00 EST, Route to Pharmacy Electronically, [facility], Partial fill uponpatient request if the [...] 11/27/22 13:43:00 EST, Route to Pharmacy Electronically, [facility], Partial fill upon patient request if the prescription is for a schedule II opioi... Start Date: 11/27/22 Status: Ordered loperamide 2 mg oral capsule 1, capsule, By Mouth, Every 4 hours, PRN, # 60 capsule, Refills 0, Maintenance, NEEDED FOR LOOSESTOOLS, 01/21/23 16:35:00 EST, Route to Pharmacy Electronically, [facility] [id number], 173, cm, 01/02/2317:14:00 EST, Height, 163.3, kg, 01/02/23 17:14:00... Start Date: 01/21/23 Status: Ordered LORazepam 2 mg oral tablet 1 tablet = 2 mg, By Mouth, Daily at bedtime, for 30 days, MassPat checked, # 30 tablet, 5 Refills, Acute 03/24/23 18:15:00 EDT, 09/25/22 18:15:00 EST, [facility]/pharmacy #1234, 175, cm, 09/15/22 17:17:00 [...] tablet, 1 Refills, Maintenance, 08/26/22 8:54:00 EDT, [facility]/pharmacy #1234, 173, cm, 05/06/22 13:26:00 EDT, Height, 146, kg, 05/06/22 13:26:00 EDT,... Start Date: 08/26/22 Status: Ordered ondansetron 4 mg oral tablet 1 tablet = 4 mg, By Mouth, Every 8 hours, PRN Nausea & Vomiting, # 15 tablet, 0 Refills, Maintenance, 01/07/23 16:25:00 EST, Tablet, [facility], Partial fill upon patient request ifthe [...] 5 Refills, Maintenance, 09/23/22 14:32:00 EST, Tablet, [facility]/pharmacy #1234, 175, cm, 09/15/22 17:17:00 [...] Most recent to oldest [Reference Range]: 1 Height 173 cm (01/22/23 10:16 AM) Weight 156 kg (01/22/23 10:16 AM) Body Mass Index [18.5-24.99 kg/m2] 52.12 kg/m2 *>HHI* (01/22/23 10:16 AM) Social History Social History Type Response Smoking Status Former smoker, quit more than 30 days ago; Interested in cessation: Yes; Patient wants NRT during admission Yes; Type: Cigarettes; Total pack years: 8; Started at age: 18; entered on: 05/06/22 Sex Patient Care team information Care Team Personnel Name: Michelle Fox RN Position: [facility] RN Member Role: Primary Care Nurse Name: Nyasia Cadet NP Position: [facility] Associate Professional Member Role: Primary Care Nurse Address: Address: [address] [place] [address]- Name: Roni Hunt RN Position: [facility] RN Member Role: Primary Care Nurse Name: Roya Jaramillo RN Position: [facility] RN Member Role: Primary Care Nurse Name: Steve Rose RN Position: [facility] RN Member Role: Primary Care Nurse Name: Tamika Mcguire RN Position: [facility] AMB Nurse Member Role: Primary Care Nurse Name: Gomez Daugherty RN Position: [facility] RN Member Role: Primary Care Nurse Name: Paolo Patterson RN Position: [facility] RN Member Role: Primary Care Nurse Name: Clarisa Mederos RN Position: [facility] RN Member Role: Primary Care Nurse Name: Loreta Pitts RN Position: [facility] RN Member Role: Primary Care Nurse Name: Tom White MD Position: Reference Physician Member Role: PCP Address: Address: [address] [place] [address] [place] [address]- Name: Philomena Benavides RN Position: [facility] RN Member Role: Primary Care Nurse Name: Cortney Benavides RN Position: [facility] RN Member Role: Primary Care Nurse Name: Stefany Lewis RN Position: [facility] ED RN W/OE and Tasks Member Role: Primary Care Nurse Name: Chiquita Cuevas RN Position: [facility] RN Member Role: Primary Care Nurse Name: Stefany Hamilton RN Position: [facility] Hospital Chief Sustainability Officer Member Role: Primary Care Nurse Name: Dee Davila RN Position: [facility] RN Member Role: Primary Care Nurse Name: Natalie Lopez RN Position: [facility] RN Member Role: Primary Care Nurse Name: Juan Diego Anguiano RN Position: [facility] RN Member Role: Primary Care Nurse Address: Address: [address] [place] [address]- Name: Iwona Jones RN Position: [facility] RN Member Role: Primary Care Nurse Name: Angelika Villa RN Position: [facility] RN Member Role: Primary Care Nurse Name: Brandi Holman RN Position: [facility] RN Member Role: Primary Care Nurse Name: Candi Moore RN Position: [facility] SN RN Member Role: Primary Care Nurse Name: Stacy Yadav RN Position: [facility] Hospital Chief Sustainability Officer Member Role: Primary Care Nurse Name: Naveen RN [place] Position: [facility] SN RN Member Role: Primary Care Nurse Name: Lexis Byers RN Position: [facility] RN Member Role: Primary Care Nurse Care Team Related Persons Name: RAMÓN HARRELL Address: home [address] [address] Name: RAMÓN CARTAGENA Address: [place] [address] Name: LING WEIR Address: home [address] [place] [address]
--- OUTSIDE RECORDS SUMMARY | 2023-10-13 11:43 | XMS_ITS | Continuity of Care Document ---
Author Name Unknown Organization [facility] Address [address] [place], [place] [address]julio shin, [address] [place] [address]- Care Team Providers Care Insurance Solicitor Name Role Phone Christopher RIDDLE, Tom Choudhury Primary Care Physician [place] [facility] [place] 12/[place]/22 - 01/30/23 [facility] [address] [place] [address] Drive, [address] [place] [address]- Allergies, Adverse Reactions, Alerts Substance Reaction Severity [...] 08/26/22 Recorded pneumococcal 23-valent vaccine 04/10/17 Given [id number] 12y+ bivalent booster vax 2 08/26/22 Recorded SARS-CoV-2 (COVID-19) mRNA BNT-162b2 vac 10/19/21 Recorded SARS-CoV-2 (COVID-19) mRNA BNT-162b2 vac 04/07/21 Recorded SARS-CoV-2 (COVID-19) mRNA BNT-162b2 vac 03/17/21 Recorded influenza virus vaccine, inactivated 08/12/21 Gentry rded Not Given Vaccine Date Status Refusal Reason influenza virus vaccine, inactivated 08/23/20 Not Given Parent Or Guardian Refuses 1Result Comment: .5ML IM/LD Lot [id number] [facility] D Exp 08.16.2023 [facility] [phone] 2Result Comment: .3Ml IM/ LD Lot [id number] Exp 10.01.2022 [facility] [phone] Medications budesonide 3 mg oral delayed release capsule See Instructions, TAKE 3 TABLETS DAILY X3 WEEKS THEN 2 TABS DAILY X3 WEEKS THEN 1 TAB DAILY X2 WEEKS THEN STOP, # 77 capsule, 2 Refills, Maintenance, 12/24/22 8:57:00 EST, [facility] STORE [id number], 175, cm, 12/22/22 3:33:00 EST, Height, 163.5, kg, 12/17/22 13:... Start Date: 12/24/22 Status: Ordered busPIRone 7.5 mg oral tablet 1 tablet = 7.5 mg, By Mouth, 2 times a day Start Date: 11/25/22 Status: Ordered dicyclomine 20 mg oral tablet 1 tablet, By Mouth, 3 times a day, # 90 tablet, 0 Refills, Maintenance, 12/09/22 14:29:00 EST, [facility]/pharmacy #1234, 175, cm, 11/27/22 15:01:00 EST, Height, 163.5, kg, 11/24/22 14:49:00 EST, Dry Weight Start Date: 12/09/22 Status: Ordered docusate sodium 100 mg oral capsule 100 mg, 1, capsule, By Mouth, 2 times a day, # 20 capsule, Refills 0, Tot. Refills 0, Maintenance, 01/07/23 16:27:00 EST, Route to Pharmacy Electronically, [facility], Partial fill uponpatient request if [...] 11/27/22 13:43:00 EST, Route to Pharmacy Electronically, [facility], Partial fill upon patient request if the prescription is for a schedule II opioi... Start Date: 11/27/22 Status: Ordered loperamide 2 mg oral capsule 1, capsule, By Mouth, Every 4 hours, PRN, # 60 capsule, Refills 0, Maintenance, NEEDED FOR LOOSESTOOLS, 01/21/23 16:35:00 EST, Route to Pharmacy Electronically, [facility] STORE [id number], 173, cm, 01/02/2317:14:00 EST, Height, 163.3, kg, 01/02/23 17:14:00... Start Date: 01/21/23 Status: Ordered LORazepam 2 mg oral tablet 1 tablet = 2 mg, By Mouth, Daily at bedtime, for 30 days, MassPat checked, # 30 tablet, 5 Refills, Acute 03/24/23 18:15:00 EDT, 09/25/22 18:15:00 EST, [facility]/pharmacy #1234, 175, cm, 09/15/22 17:17:00 [...] 0 Refills, Maintenance, 01/07/23 16:25:00 EST, Tablet, [facility], Partial fill upon patient request ifthe [...] 5 Refills, Maintenance, 09/23/22 14:32:00 EST, Tablet, [facility]/pharmacy #1234, 175, cm, 09/15/22 17:17:00 [...] 8; Started at age: 18; entered on: 6/20/22 Sex Patient Care team information Care Team Personnel Name: Michelle Fox RN Position: [facility] RN Member Role: Primary Care Nurse Name: Nyasia Cadet NP Position: [facility] Associate Professional Member Role: Primary Care Nurse Address: Address: [address] [place] [address]- [place] Name: Roni Hunt RN Position: [facility] RN Member Role: Primary Care Nurse Name: Roya Jaramillo RN Position: [facility] RN Member Role: Primary Care Nurse Name: Steve Rose RN Position: [facility] RN Member Role: Primary Care Nurse Name: Tamika Mcguire RN Position: [facility] AMB Nurse Member Role: Primary Care Nurse Name: Gomez Daugherty RN Position: [facility] RN Member Role: Primary Care Nurse Name: Paolo Patterson RN Position: [facility] RN Member Role: Primary Care Nurse Name: Clarisa Mederos RN Position: [facility] RN Member Role: Primary Care Nurse Name: Loreta Pitts RN Position: [facility] RN Member Role: Primary Care Nurse Name: Tom White MD Position: Reference Physician Member Role: PCP Address: Address: [address] [place] [address]- [place] Name: Philomena Benavides RN Position: [facility] RN Member Role: Primary Care Nurse Name: Cortney Benavides RN Position: [facility] RN Member Role: Primary Care Nurse Name: Stefany Lewis RN Position: [facility] ED RN W/OE and Tasks Member Role: Primary Care Nurse Name: Chiquita Cuevas RN Position: [facility] RN Member Role: Primary Care Nurse Name: Stefany Hamilton RN Position: [facility] Neuropsychologist Member Role: Primary Care Nurse Name: Dee Davila RN Position: [facility] RN Member Role: Primary Care Nurse Name: Natalie Lopez RN Position: [facility] RN Member Role: Primary Care Nurse Name: Juan Diego Anguiano RN Position: [facility] RN Member Role: Primary Care Nurse Address: Address: [address] [place] [address]- [place] Name: Iwona Jones RN Position: [facility] RN Member Role: Primary Care Nurse Name: Angelika Villa RN Position: [facility] RN Member Role: Primary Care Nurse Name: Brandi Holman RN Position: [facility] RN Member Role: Primary Care Nurse Name: Candi Moore RN Position: [facility] SN RN Member Role: Primary Care Nurse Name: Stacy Yadav RN Position: [facility] Neuropsychologist Member Role: Primary Care Nurse Name: Naveen RNKenney Position: [facility] RN Member Role: Primary Care Nurse Name: Lexis Byers RN Position: [facility] RN Member Role: Primary Care Nurse Care Team Related Persons Name: RAMÓN HARRELL Address: [address] [place] [address] Name: RAMÓN CARTAGENA Address: [place] [address] Name: LING WEIR Address: home [address] [place] [address]
--- OUTSIDE RECORDS SUMMARY | 2023-10-13 11:43 | XMS_ITS | Continuity of Care Document ---
Author Name Unknown Organization [facility] Address [address] [place], [place] [address]julio shin, [address] [place] [address]- Care Team Providers Care Knot Cutter Name Role Phone Tom White MD Primary Care Physician [place] [facility] [id number] Date(s): 12/11/22 - 01/31/23 [facility] [address] [place] [address] Drive, [address] [place] [address]- Attending Physician: Ronnie Boyle MD Referring Physician: Tom White MD Allergies, Adverse [...] 08/26/22 Recorded pneumococcal 23-valent vaccine 04/10/17 Given [id number] 12y+ bivalent booster vax 2 08/26/22 Recorded SARS-CoV-2 (COVID-19) mRNA BNT-162b2 vac 10/19/21 Recorded SARS-CoV-2 (COVID-19) mRNA BNT-162b2 vac 04/07/21 Recorded SARS-CoV-2 (COVID-19) mRNA BNT-162b2 vac 03/17/21 Recorded influenza virus vaccine, inactivated 08/12/21 [place] rded Not Given Vaccine Date Status Refusal Reason influenza virus vaccine, inactivated 08/23/20 Not Given Parent Or Guardian Refuses 1Result Comment: .5ML IM/LD Lot [id number] [employer] D Exp 08.16.2023 [facility] [phone] 2Result Comment: .3Ml IM/ LD Lot [id number] Exp 10.01.2022 [facility] [phone] Medications budesonide 3 mg oral delayed release capsule See Instructions, TAKE 3 TABLETS DAILY X3 WEEKS THEN 2 TABS DAILY X3 WEEKS THEN 1 TAB DAILY X2 WEEKS THEN STOP, # 77 capsule, 2 Refills, Maintenance, 12/24/22 8:57:00 EST, [id number], 175, cm, 12/22/22 3:33:00 EST, Height, 163.5, kg, 12/17/22 13:... Start Date: 12/24/22 Status: Ordered busPIRone 7.5 mg oral tablet 1 tablet = 7.5 mg, By Mouth, 2 times a day Start Date: 11/25/22 Status: Ordered dicyclomine 20 mg oral tablet 1 tablet, By Mouth, 3 times a day, # 90 tablet, 0 Refills, Maintenance, 12/09/22 14:29:00 EST, [facility], 175, cm, 11/27/22 15:01:00 EST, Height, 163.5, kg, 11/24/22 14:49:00 EST, Dry Weight Start Date: 12/09/22 Status: Ordered docusate sodium 100 mg oral capsule 100 mg, 1, capsule, By Mouth, 2 times a day, # 20 capsule, Refills 0, Tot. Refills 0, Maintenance, 01/07/23 16:27:00 EST, Route to Pharmacy Electronically, [facility], Partial fill uponpatient request if [...] 11/27/22 13:43:00 EST, Route to Pharmacy Electronically, [facility], Partial fill upon patient request if the prescription is for a schedule II opioi... Start Date: 11/27/22 Status: Ordered loperamide 2 mg oral capsule 1, capsule, By Mouth, Every 4 hours, PRN, # 60 capsule, Refills 0, Maintenance, NEEDED FOR LOOSESTOOLS, 01/21/23 16:35:00 EST, Route to Pharmacy Electronically, [id number], 173, cm, 01/02/2317:14:00 EST, Height, 163.3, kg, 01/02/23 17:14:00... Start Date: 01/21/23 Status: Ordered LORazepam 2 mg oral tablet 1 tablet = 2 mg, By Mouth, Daily at bedtime, for 30 days, [facility] checked, # 30 tablet, 5 Refills, Acute 03/24/23 18:15:00 EDT, 09/25/22 18:15:00 EST, [facility], 175, cm, 09/15/22 17:17:00 EDT, [...] tablet, 1 Refills, Maintenance, 08/26/22 8:54:00 EDT, [facility], 173, cm, 05/06/22 13:26:00 EDT, Height, 146, kg, 05/06/22 13:26:00 EDT,... Start Date: 08/26/22 Status: Ordered ondansetron 4 mg oral tablet 1 tablet = 4 mg, By Mouth, Every 8 hours, PRN Nausea & Vomiting, # 15 tablet, 0 Refills, Maintenance, 01/07/23 16:25:00 EST, Tablet, [facility], Partial fill upon patient request [...] 5 Refills, Maintenance, 09/23/22 14:32:00 EST, Tablet, [facility], 175, cm, 09/15/22 17:17:00 EDT, Height, [...] Team Personnel Name: Michelle Fox RN Position: [facility] RN Member Role: Primary Care Nurse Name: Nyasia Cadet NP Position: [facility] Associate Professional Member Role: Primary Care Nurse Address: Address: [address] [place] [address]- [place] Name: Roni Hunt RN Position: [facility] RN Member Role: Primary Care Nurse Name: Roya Jaramillo RN Position: [facility] RN Member Role: Primary Care Nurse Name: Steve Rose RN Position: [facility] RN Member Role: Primary Care Nurse Name: Tamika Mcguire RN Position: [facility] AMB Nurse Member Role: Primary Care Nurse Name: Gomez Daugherty RN Position: [facility] RN Member Role: Primary Care Nurse Name: Paolo Patterson RN Position: [facility] RN Member Role: Primary Care Nurse Name: Clarisa Mederos RN Position: [facility] RN Member Role: Primary Care Nurse Name: Loreta Pitts RN Position: [facility] RN Member Role: Primary Care Nurse Name: Tom White MD Position: Reference Physician Member Role: PCP Address: Address: [address] [place] [address] [place] [address]- Name: Philomena Benavides RN Position: [facility] RN Member Role: Primary Care Nurse Name: Cortney Benavides RN Position: [facility] RN Member Role: Primary Care Nurse Name: Stefany Lewis RN Position: [facility] ED RN W/OE and Tasks Member Role: Primary Care Nurse Name: Chiquita Cuevas RN Position: [facility] RN Member Role: Primary Care Nurse Name: Stefany Hamilton RN Position: [facility] Hospital [place] Member Role: Primary Care Nurse Name: Dee Davila RN Position: [facility] RN Member Role: Primary Care Nurse Name: Natalie Lopez RN Position: [facility] RN Member Role: Primary Care Nurse Name: Juan Diego Anguiano RN Position: [facility] RN Member Role: Primary Care Nurse Address: Address: [address] [place] [address] [place] Name: Iwona Jones RN Position: [facility] RN Member Role: Primary Care Nurse Name: Angelika Villa RN Position: [facility] RN Member Role: Primary Care Nurse Name: Brandi Holman RN Position: [facility] RN Member Role: Primary Care Nurse Name: Candi Moore RN Position: [facility] SN RN Member Role: Primary Care Nurse Name: Stacy Yadav RN Position: [facility] [place] Member Role: Primary Care Nurse Name: Naveen RN [place] Position: [facility] SN RN Member Role: Primary Care Nurse Name: Lexis Byers RN Position: [facility] RN Member Role: Primary Care Nurse Care Team Related Persons Name: RAMÓN HARRELL Address: [address] [place] [address] Name: RAMÓN CARTAGENA Address: [place] [address] Name: LING WEIR Address: home [address] [place] [address]
--- OUTSIDE RECORDS SUMMARY | 2023-10-13 11:43 | XMS_ITS | Continuity of Care Document ---
Author Name Unknown Organization [facility] ter Address [address] [place] [id number] Care Team Providers Care Rn Enterostomal Name Role Phone Christopher RIDDLE, Tom Choudhury Primary Care Physician [phone] Encounter [facility] Date(s): 12/17/22 - 12/22/[address] [id number] Discharge Disposition: A-D/C Home Attending Physician: Sam Nobles MD Admitting Physician: Sam Nobles MD Referring Physician: Sam Nobles MD Allergies, Adverse Reactions, Alerts Substance Reaction [...] 08/26/22 Recorded pneumococcal 23-valent vaccine 04/10/17 Given [id number] 12y+ bivalent booster vax 2 08/26/22 Recorded SARS-CoV-2 (COVID-19) mRNA BNT-162b2 vac 10/19/21 Recorded SARS-CoV-2 (COVID-19) mRNA BNT-162b2 vac 04/07/21 Recorded SARS-CoV-2 (COVID-19) mRNA BNT-162b2 vac 03/17/21 Recorded influenza virus vaccine, inactivated 08/12/21 Gentry rded Not Given Vaccine Date Status Refusal Reason influenza virus vaccine, inactivated 08/23/20 Not Given Parent Or Guardian Refuses 1Result Comment: .5ML IM/LD Lot [id number] [employer] D Exp 9.30.2023 [facility] [phone] 2Result Comment: .3Ml IM/ LD Lot [id number] Exp 10.01.2022 [facility] [phone] Medications budesonide 3 mg oral delayed release [...] tablet, 0 Refills, Maintenance, 12/09/22 14:29:00 EST, [facility]/pharmacy #[id number], 175, cm, 11/27/22 15:01:00 EST, [...] opioid drug. Start Date: 04/04/22 Status: Ordered Flexeril 10 mg oral tablet 10 mg, Tablet, By Mouth, 3 times a day, PRN for Spasm, Routine, 12/19/22 11:31:00 EST Start Date: 12/19/22 Stop Date: 12/22/22 Status: Discontinued ibuprofen 600 mg oral tablet 600 mg, [...] 11/27/22 13:43:00 EST, Route to Pharmacy Electronically, [facility], Partial fill upon patient request if the prescription is for a schedule II opioi... Start Date: 11/27/22 Status: Ordered loperamide 2 mg oral capsule 1, capsule, By Mouth, Every 4 hours, PRN, # 60 capsule, Refills 0, Tot. Refills 0, Maintenance, NEEDED FOR LOOSE STOOLS, 12/09/22 14:29:00 EST, Route to Pharmacy Electronically, [facility]/pharmacy #[id number], 175, cm, 11/27/22 15:01:00 EST, Height, 163.5, kg,... Start Date: 12/09/22 Status: Ordered LORazepam 2 mg oral tablet 1 tablet = 2 mg, By Mouth, Daily at bedtime, for 30 days, MassPat checked, # 30 tablet, 5 Refills, Acute 03/24/23 18:15:00 EDT, 09/25/22 18:15:00 EST, [facility]/pharmacy #[id number], 175, cm, 09/15/22 17:17:00 EDT, [...] tablet, 1 Refills, Maintenance, 08/26/22 8:54:00 EDT, [facility]/pharmacy #[id number], 173, cm, 05/06/22 13:26:00 EDT, Height, 146, kg, 05/06/22 13:26:00 EDT,... Start Date: 08/26/22 Status: Ordered ondansetron 4 mg oral tablet 1 tablet = 4 mg, By Mouth, Every 8 hours, PRN Nausea & Vomiting, # 10 tablet, 0 Refills, Maintenance, 11/27/22 13:45:00 EST, Tablet, [facility] 3, Partial fill upon patient request ifthe [...] 5 Refills, Maintenance, 09/23/22 14:32:00 EST, Tablet, [facility]/pharmacy #[id number], 175, cm, 09/15/22 17:17:00 EDT, [...] oldest [Reference Range]: 1 2 3 Height 175 cm (12/22/22 3:33 AM) 175 cm (12/21/22 11:00 PM) 175 cm (12/21/22 7:00 PM) Weight 163.5 kg (12/17/22 12:50 PM) 163.8 kg (12/17/22 11:00 AM) Oxygen Saturation [94-100 %] 94 % (12/22/22 7:45 AM) 93 % *L* (12/22/22 3:33 AM) 100 % (12/21/22 11:00 PM) Pulse Rate [55-90 bpm] 88 bpm (12/22/22 7:45 AM) 92 bpm *H* (12/22/22 3:33 AM) 99 bpm *H* (12/21/22 11:00 PM) Body Mass Index [18.5-24.99 kg/m2] 53.39 kg/m2 *>HHI* (12/17/22 12:50 PM) Blood Pressure [90-138/55-84 mm Hg] 98/52mm Hg (12/22/22 7:45 AM) 131/51mm Hg (12/22/22 3:33 AM) 130/71mm Hg (12/21/22 11:00 PM) Respiratory Rate [16-30 br/min] 20 br/min (12/22/22 7:45 AM) 18 br/min (12/22/22 5:36 AM) 16 br/min (12/22/22 3:33 AM) Temperature [96.8-100.4 DegF] 97.3 DegF (12/22/22 7:45 AM) 98.2 DegF (12/22/22 3:33 AM) 97.5 DegF (12/21/22 11:00 PM) Mode of Delivery (Oxygen) Room air (12/22/22 7:45 AM) Room air (12/22/22 3:33 AM) Room air (12/21/22 11:00 PM) Blood pressure sites Arm, right (12/22/22 7:45 AM) Arm, left (12/22/22 3:33 AM) Arm, right (12/21/22 11:00 PM) Temperature Route Temporal (12/22/22 7:45 AM) Oral (12/22/22 3:33 AM) Oral (12/21/22 11:00 PM) Dry Weight 163.5 kg (12/17/22 12:50 PM) Weight Obtained Via Bed scale (12/17/22 11:00 AM) Social History Social History Type Response Smoking Status Former smoker, quit more than 30 days ago; Interested in cessation: Yes; Patient wants NRT during admission Yes; Type: Cigarettes; Total pack years: 8; Started at age: 18; entered on: 05/06/22 Sex Admission evaluation note * Getachew Dunlap: PERFORM Event Display: Admission Note Authored Date: Patient: ??KIRILL WEIR ? Age:??37 Years?Sex:??Female?:??1985?? Chief Complaint/Reason for Consultation VEEG elective History of Present Illness 37-year-old right-handed female with prior history of epilepsy since??the age of 9??where she was worked up at [facility] in??[facility]??and has been on medications since then??and was reportedly??diagnosed with epilepsy.?? She was on Depakote in??childhood.?? She had a reported??postictal??left-sided weakness??lasted for weeks.?? She is was also trialed on phenobarbital.?? She relates that her last??seizure??was a couple of nights ago??where she awakens and feels like she is drooling out one side of her face??with??stiffening of her body that lasts 30 seconds.?? She also has brief spells during the day which happen frequently where she feels like she dozes off??and then has a jerk??at??awakens her. ?? Patient relays that she has snoring at night??and sleeps through the night??with a negative??sleep study at [facility]??a couple of months ago. ?? Brain MRI was unrevealing a decade ago, Multiple VEEGs and AEEGs were either normal or captured multiple nocturnal seizures, unclear if partial or generalized onset, but given postictal Darrick's, likely partial onset.?From a 2012 VEEG report:?? The ictal semiology consisted of closed eyes, guttural or moaning or gasping sounds with??partial arousal with gasping or guttural sounds, with somenon-purposeful asymmetric arm and less obvious leg movements with mild head and body rocking, sometimes ending with her opening her eyes and getting up leaning on an elbow before quickly returning tosleep. ??The episodes were less than 30 seconds, and occurred multiple times an hour.? She was eventually stabilized on Depakote monotherapy??and was seizure free until 2003 when she may??had a relapse in her sleep. ??Over the years she???s had recurrent seizures and been on Keppra, Neurontin, Tegretol, vimpat, ethosuximide. ??A VNS was implanted, but she hasn???t felt it fire in years.?? The last interrogation was in 2016.?There is a plan to change her VNS battery??this . ?? In September,, lyrica was added for pain. ??Since then she???s had an increase in apparent myoclonic jerks during the day and an increase in nocturnal seizures, multiple a night.?? Last admissionshe was taken off of Lyrica??and concern that it was exacerbating??her??seizures??although the patient continue the med??and has been using it at??home for pain. ?? She has a??significant??psychiatric history. ??She has made more than one suicide attempt. ??A 2019Psychiatry consultation raised the possibility of??possible Munchausen/factitious??syndrome. ??She???s been treated for chronic C diff, but apparently was caught diluting her stool. Review of Systems No fever chills nausea vomiting or diarrhea. Objective Vital Signs?? Temperature: 97.7 DegF (12/17/22 12:50:00) Temperature Route: Temporal (12/17/22 12:50:00) Pulse Rate:??98 bpm??High (12/17/22 12:50:00) Respiratory Rate: 20 br/min (12/17/22 12:50:00) Systolic Blood Pressure: 138 mm Hg (12/17/22 12:50:00) Diastolic Blood Pressure: 78 mm Hg (12/17/22 12:50:00) Blood pressure sites: Arm, right (12/17/22 12:50:00) Mean Arterial Pressure: 98 mm Hg (12/17/22 12:50:00) Pulse Pressure: 60 mm Hg (12/17/22 12:50:00) Oxygen Saturation: 98 % (12/17/22 12:50:00) Mode of Delivery (Oxygen): Room air (12/17/22 12:50:00) Early Warning Score: 2 (12/17/22 13:14:39) ? Intake/Output? No Data Available ? Physical Exam Gen- NAD, obese CV- RRR no m/r/g lungs- CTA bilaterally abd- soft, NT, ND, positive BS extremities- no edema or ecchymosis ?? neuro- mentation- alert and oriented x person, place, time, and disposition. ??able to name simple objectssuch as watch and eyeglasses. ??able to follow simple and complex commands. ??no aphasia. ??good fund of knowledge. ??ST and LT memory intact. ?? eyes- PERRL, and mid gaze she has a slight esotropia of her right eye??which is chronic.?EOMI, no visual field deficits hearing- intact face- symmetric, sensation intact speech- clear, fluent shrug- symmetric tongue- midline ?? Motor- good muscle bulk and tone RUE- 5/5 ?? RLE- 5/5 LUE- 5/5 ?LLE- 5/5 ?? sensation-??intact to LT bilaterally ?? coordination- good fnf, heal to virgen, JANES ?? toes- mute ?? gait- symmetric ?? Assessment/Plan ??37-year-old right-handed female with prior history of epilepsy since??the age of 9??where she was worked up at [facility] in[facility]??and has been on medications since then??and was reportedly??diagnosed with epilepsy.?? She was on Depakote in??childhood.?? She had a reported??postictal??left-sided weakness??lasted for weeks.?? She is was also trialed on phenobarbital.?? She relates that her last??seizure??was a couple of nights ago??where she awakens and feels like she is drooling out one side of her face??with??stiffening of her body that lasts 30 seconds.?? She also has brief spells during the day which happen frequently where she feels like she dozes off??and then hasa jerks??awakens her. ?? possible epilepsy- failed multiple medications non-functioning VNS ?? plan VEEG telemetry check drug levels continue carbamazepine 600/700 vimpat 150mg BID ethosuxamide 500mg HS dr nobles will speak with Dr Avalos to see if VNS change , if so will need NPO and no motrin while here for bleeding risk ?? HTN- continue BP med ?? DM- on lantus ?? chronic pain on lyrica, patient relays she was not aware she was supposed to stop as it may exacerbate seizures,will continue for now tylenol PRN ?? chronic nausea- zofran PRN ? full code dispo: Friday d/w dr nobles Histories Allergies Allergies ?(Active and Proposed Allergies Only) Toradol? (Severity: Unknown severity, Onset: Unknown) ?Reactions: C/O: a rash Versed? (Severity: Persistent Severe, Onset: Unknown) ?Reactions: throat closes up, aggitation, dyspnea ?Comments: Does fine with Ativan, Valium, Klonopin Latex? (Severity: Unknown severity, Onset: Unknown) ?Reactions: itchiness sulfa drugs? (Severity: Persistent Severe, Onset: Unknown) ?Reactions: rash, C/O: itching gabapentin? (Severity: Persistent Moderate, Onset: Unknown) ?Reactions: Agitation ? Past Medical History/Problem List Active Problems??(7) Biliary colic Depression Epileptic seizures Intractable diarrhea Morbid obesity Seizure Severe obesity ? Past Surgical History Laparoscopic Toupet fundoplication: 01/25/19 Colonoscopy, flexible, proximal to splenic flexure; with biopsy, single or multiple: 07/15/18 Diagnostic endoscopy: 12/16/17 Colonoscopy: 12/16/17 Laparoscopic cholecystectomy: 12/16/16 Esophagogastroduodenoscopy: 12/15/16 BROCK ?? Social History Alcohol Details:??Use: Never. Employment/School Details:??Status: Retired. Home/Environment Details:??Living situation: Home/Independent. ??Lives with: Children, Spouse. Sexual Details:??Sexually involved in last 6 months: Yes. ??Gender identity: Identifies as female. Substance Abuse Details:??Use: Never. Tobacco Details:??Use: Former smoker, quit more than 30 days ago. ??Interested in cessation: Yes. ??Yes, Type: Cigarettes. ??Started at age: 18 Years. ??Previous treatment: Nicotine replacement. ??Cessation attempts: 3. ??Tobacco user in household: Yes. Details:??Use: Former smoker, quit more than 30 days ago. ??Interested in cessation: Yes. ??Yes, Type: Cigarettes. ??Total pack years: 8. ??Started at age: 18 Years. ? Family History Father: Anxiety; Depression; Diabetes mellitus; Hypertension ? Medications Home Medications Budesonide (budesonide 3 mg oral delayed release capsule)?3?capsule?9?Milligram?By Mouth?Daily in AM?Home taper:3 tabs daily for 3 weeks 2 tabs daily for 3 weeks 1 tab daily for 2 weeks then stop BusPIRone (busPIRone 7.5 mg oral tablet)?1?tab(s)?7.5?Milligram?By Mouth?2 times a day Carbamazepine (carBAMazepine 400 mg oral tablet, extended release)?By Mouth?Daily at bedtime Carbamazepine (carBAMazepine 200 mg oral tablet, extended release)?By Mouth?Daily Cholecalciferol (Vitamin D3 2000 intl units oral capsule)?1?capsule?50?Microgram?By Mouth?Daily Cyanocobalamin (Vitamin B12 1000 mcg oral tablet)?1?tab(s)?1,000?Microgram?By Mouth?Daily Cyclobenzaprine (Flexeril 10 mg oral tablet)?1?tablet?By Mouth?3 times a day?as needed?for spasm Dicyclomine (dicyclomine 20 mg oral tablet)?1?tab(s)?By Mouth?3 times a day Escitalopram (escitalopram 10 mg oral tablet)?1?tab(s)?10?Milligram?By Mouth?Daily in AM Ethosuximide (ethosuximide 250 mg oral capsule)?2?capsule?500?Milligram?By Mouth?Daily at bedtime Ibuprofen (ibuprofen 600 mg oral tablet)?600?Milligram?1?tablet?By Mouth?Every 8 hours?as needed?as needed for pain Insulin Glargine (Lantus 100 u/ml subcutaneous solution)?30?unit(s)?Sublingual?Daily atbedtime Lacosamide (Vimpat 150 mg oral tablet)?1?tab(s)?150?Milligram?By Mouth?2 times a day?for 30?Days?MassPat checked. Lisinopril (lisinopril 20 mg oral tablet)?20?Milligram?1?tablet?By Mouth?Daily Loperamide (loperamide 2 mg oral capsule)?1?capsule?By Mouth?Every 4 hours?as needed? NEEDED FOR LOOSE STOOLS Lorazepam (LORazepam 2 mg oral tablet)?1?tab(s)?2?Milligram?By Mouth?Daily at bedtime?for 30?Days?MassPat checked Melatonin (Melatonin 3 mg oral tablet)?1-2 tablet?By Mouth?Daily at bedtime Naratriptan (naratriptan 1 mg oral tablet)?See Instructions?TAKE 1 TABLET BY MOUTH AT ONSET OF HEADACHE, MAY REPEAT ONCE IN 4 HOURS IF NEEDED Ondansetron (ondansetron 4 mg oral tablet)?1?tab(s)?4?Milligram?By Mouth?Every 8 hours?as needed?Nausea & Vomiting Risperidone (risperiDONE 2 mg oral tablet)?2?Milligram?1?tablet?By Mouth?Daily atbedtime ? Inpatient Medications Medications (16) Active SCHEDULED: (12) BusPIRone (busPIRone 10 mg oral tablet) ??7.5 mg 0.75 tablet, By Mouth, 3 times a day Carbamazepine 100 mg XR Tablet (carBAMazepine 100 mg oral tablet, extended release) ??600 mg, By Mouth, Daily Carbamazepine 100 mg XR Tablet (carBAMazepine 400 mg oral tablet, extended release) ??700 mg, By Mouth, Daily at bedtime Cholecalciferol (cholecalciferol 1000 intl units oral tablet) ??50 mcg, By Mouth, Daily Dicyclomine 10 mg Capsule (dicyclomine 10 mg oral capsule) ??20 mg 2 capsule, By Mouth, 3 times a day Escitalopram 10 mg Tablet (escitalopram 10 mg oral tablet) ??10 mg, By Mouth, Daily in AM Insulin Glargine 100 units/mL Inj (Insulin Glargine Inj) ??30 units 0.3 mL, Sublingual, Daily at bedtime Lacosamide 50 mg Tablet (Lacosamide Tablet) ??150 mg, By Mouth, 2 times a day Lisinopril 20 mg Tablet (lisinopril 20 mg oral tablet) ??20 mg, By Mouth, Daily Melatonin 3 mg Tablet (Melatonin Tablet) ??3 mg, By Mouth, Daily at bedtime Risperidone 0.25 mg Tablet (risperiDONE 1 mg oral tablet) ??2.5 mg, By Mouth, Daily at bedtime Vitamin B-12 ??1000 mcg Tablet (cyanocobalamin 1000 mcg oral tablet) ??1,000 mcg, By Mouth, Daily CONTINUOUS: (0) PRN: (4) Cyclobenzaprine 10 mg Tablet (Flexeril 10 mg oral tablet) ??10 mg, By Mouth, 3 times a day Loperamide 2 mg Capsule (loperamide 2 mg oral capsule) ??2 mg, By Mouth, Every 4 hours Lorazepam 2 mg Inj Syringe (LORazepam Inj) ??2 mg, IV Push Slowly, Once Ondansetron 4 mg ODT (Ondansetron Inj) ??4 mg, By Mouth, Every 8 hours ? Results Recent Labs No labs resulted between 12/16/2022 00:00 and 12/17/2022 13:33? Abnormal Labs No lab data available. ? * Sam Nobles MD: PERFORM Event Display: Admission Note Authored Date: [id number] Attending PA/CIVIL ENGINEER Attestation:??I have seen and evaluated this patient in conjunction with the CIVIL ENGINEER/PA.??I have discussed the case and its management with the PA/CIVIL ENGINEER as documented in the PA/CIVIL ENGINEER note.? Hopefully we'll be able to clarify the types of spells she's having. Hospital Progress note * Sam Nobles MD: PERFORM Event Display: Progress Note Hospital Authored Date: [id number] INTRODUCTION: The patient is a 37 year old referred for a question of seizures. MEDICATIONS: Vimpat, tegretol, ethosuximide, others. CONDITION OF RECORDING: The patient underwent 5 days of digitally recorded video EEG monitoring beginning on 12/17/2022 at 3:02:14 PM and ending on at 08:41:09 AM, recorded with the patientawake, drowsy and asleep, reviewed with longitudinal and coronal bipolar montages, as well as average referential and anterior temporal montages with all electrodes applied in accordance with the International 10-20 System. Seizure and spike detection software was utilized throughout the recording.A single channel EKG lead was recorded as well to help identify artifact. The entire record was reviewed with special attention to button presses and diary entries. The patient was sleep deprived on the second night of recording. Any AEDs were tapered or stopped during the admission. INTERICTAL EEG DESCRIPTION: Cerebral electrical activity with the patient awake was characterized by a well organized background with an 8-9 Hz 10-20 uV posterior dominant reactive alpha rhythm. Diffuse or multifocal 25-50 uV theta and delta activity was admixed. Lower voltage frontal beta activitywas seen. Drowsiness was characterized by an increase in slow eye movements and a fragmentation of the alpha rhythm. Stage II sleep was recorded during which time synchronous and symmetric sleep spindles, vertex waves and K complexes were seen. There were apneic episodes up to 12 seconds with snoring arousals. Stage III sleep was seen with the expected increase in delta activity. REM was recordedas well. ICTAL EEG AND VIDEO DESCRIPTION: Day # 1: There were 2 button press events for patient feeling as if she had a seizure in sleep, neither with EEG or clinical correlate. Day # 2 : There was one button press for patient not responding. She was asleep, nurse called her name, she aroused slowly bur responded withing 15 seconds, no seizure seen. Day # 3 : No button press events, no seizures. Day # 4 : No button press events, no seizures. Day # 5 : No button press events, no seizures. IMPRESSION: The patient underwent 5 days of continuous intermodal customer service video EEG monitoring was recorded with the patient awake, drowsy and asleep, during which time no epileptiform activity, seizures or persistent focal asymmetries occurred. The 2 button presses for feeling as if she had a seizure had no EEG correlate. COMMENT: This study makes epileptic seizures as the cause of her spells very unlikely. There were apneic episodes up to 12 seconds with snoring arousals suggesting sleep apnea. * Sebastian Lew RN: PERFORM, SIGN, VERIFY, MODIFY, SIGN Event Display: Progress Note Hospital Authored Date: Patient: KIRILL WEIR Age: 37 years Sex: Female : 1985 Associated Diagnoses: None Author: Sebastian Lew RN Findings Problem Related to Alteration in Neurological : Alteration in Neurological Function/new 12/22/2022 8:00 EST Alteration in Neuro status Related to Seizure Goals & Outcomes, Neurological Pt will be Neurologically stable Interventions, Neurological Assess/monitor neurologic status, Assess/monitor VS per unit standards & prn, Call/Report variances in assessments to provider, Monitor for headaches, nausea, vomiting, Monitor speech fluency, aphasia, word finding difficulty, Physical assessment per unit standards Goals/Interventions, Neurological Yes Neurological, Problem Start 12/17/2022 14:00 Reviewed plan with, Neurological Patient Patient Progression, Neurological Pt progressing according to plan . Nursing Data Neurological Data. : Neurological Data. 12/22/2022 8:00 EST Level of Consciousness Full Consciousness Orientated to person, place, time Person, Place, Time, Event Facial Symmetry Intact Characteristics of Speech Clear and normal Pupil description, left Regular Pupil description, right Regular Pupil reaction, left Brisk Pupil reaction, right Brisk Pupil Size, Left 3 mm Pupil Size, Right 3 mm Strength LUE 5-Active movement against gravity & full resistance Strength RUE 5-Active movement against gravity & full resistance Strength LLE 5-Active movement against gravity & full resistance Strength RLE 5-Active movement against gravity & full resistance Tone LUE Normal Tone RUE Normal Tone LLE Normal Tone RLE Normal Sensation LUE Intact Sensation RUE Intact Sensation LLE Intact Sensation RLE Intact Movement LUE Spontaneous Movement RUE Spontaneous Movement LLE Spontaneous Movement RLE Spontaneous Response Eye Opening Spontaneously Motor Response-Adult Obeys commands Verbal Response-Adult Oriented and converses Marston Coma Score 15 Neuro WNL except Eyes and Movements Conjugate gaze: Move in same direction at same speed Memory Intact Swallow - Neuro Normal . Evaluation AO x 4, follows simple and complex commands, speech is clear, +PERRL EOM occassional dysconjugate gaze, pt states she has a lazy eye, visual woodson intact. PATEL strength 5/5, Lungs CTA on RA, +BS x 4 pt had x2 bowel movements this shift, she states she has irritable bowel syndrom. pt denies numbnessand tingling . pt is to be taken off of VEEG this morning for planned d/c, no apparent siezures noted so far this shift. bed locked, in lowest position, non slip footwear on, bed alarm on, call smith within reach, safety maintained. VEEG removed by tech. RN went over d/c instructions with pt both verbally and gave pt a written copy. Pt stated they understood and had on questions. PIV removed, tip intact. No s/s of infection. Pt brought down by staff by w/c where family was waiting. . * Marjorie Baca RN: PERFORM, SIGN, VERIFY Event Display: Progress Note Hospital Authored Date: Patient: KIRILL WEIR Age: 37 years Sex: Female : 1985 Associated Diagnoses: None Author: Marjorie Baca RN Findings Problem Related to Alteration in Neurological : Alteration in Neurological Function/new 12/22/2022 6:00 EST Alteration in Neuro status Related to Seizure Goals & Outcomes, Neurological Pt will be Neurologically stable Interventions, Neurological Assess/monitor facial symmetry and tongue deviation, Assess pt using NIHSS scale on admit & D/C, Bedside swallow eval on admission, Collaborate w/ provider to initiateStroke Protocol, Communicate oral intake orders/status to pt/s.o, Consult Speech Therapy as needed,DVT prophylaxis as ordered, Maintain oral suction at bedside, Review Speech Therapy recommendations for care, Teach aspiration precautions/diet modifications, Teach Pt/caregiver how to transfer position safely, Teach Pt/caregiver how to use adaptive equipment BH Goals/Interventions, Neurological Yes Neurological, Problem Start 12/17/2022 14:00 Reviewed plan with, Neurological Patient Patient Progression, Neurological Pt progressing according to plan . Evaluation P Sz I per care plan interventions Pt is alert to self place and time. Pti s stand by assist d/o seizure monitoring.. She c/o of having discomfort from chronic plain. Pt was medicated with flexril with good effect. No seizure activitynoted during the nifght. VSS and afebrile. SR -ST on tele monitor low 100s. Will anticipate discharge this am. Will conitnue to monitor. See cis for a complete assessment.. Note * Sebastian Lew RN: PERFORM Event Display: Discharge/Transfer Note Hospital Authored Date: Nursing Discharge Note Entered On: 12/22/2022 14:55 EST Performed On: 12/22/2022 14:54 EST by Sbeastian Lew RN Nursing Discharge Note 2 Discharge Time : 12/22/2022 11:08 EST Discharge Level of Care at Discharge : Home/Shelter/Foster Care Patient Left Unit Via : Wheelchair Patient Accompanied Off Unit with : Significant other DC Instructions Provided & Signed by Pt : Yes Patient Understands D/C Instructions : Yes Patient Instructions Discharge Signed : Yes Did Pt have Specialty Bed or Wound Vac : No Louann CORNELL, Sebastian - 12/22/2022 14:54 EST * Madelin DC, Maria Fernanda M: MODIFY, PERFORM, MODIFY, MODIFY, MODIFY Event Display: Discharge/Transfer Note Hospital Authored Date: Patient: ??KIRILL WEIR ? Age:??37 Years?Sex:??Female?:??1985?? Patient Information Discharge Location: [facility] Primary Care Physician: Tom White MD Admit Date/Time: 12/17/22 11:34 Discharge Disposition Discharge Disposition: Home: No Services Discharge Diagnosis Convulsions ?? _ Discharge Medications Budesonide (budesonide 3 mg oral delayed release capsule)?3?capsule?9?Milligram?By Mouth?Daily in AM?Home taper:3 tabs daily for 3 weeks 2 tabs daily for 3 weeks 1 tab daily for 2 weeks then stop BusPIRone (busPIRone 7.5 mg oral tablet)?1?tab(s)?7.5?Milligram?By Mouth?2 times a day Cholecalciferol (Vitamin D3 2000 intl units oral capsule)?1?capsule?50?Microgram?By Mouth?Daily Cyanocobalamin (Vitamin B12 1000 mcg oral tablet)?1?tab(s)?1,000?Microgram?By Mouth?Daily Cyclobenzaprine (Flexeril 10 mg oral tablet)?1?tablet?By Mouth?3 times a day?as needed?for spasm Dicyclomine (dicyclomine 20 mg oral tablet)?1?tab(s)?By Mouth?3 times a day Escitalopram (escitalopram 10 mg oral tablet)?1?tab(s)?10?Milligram?By Mouth?Daily in AM Ibuprofen (ibuprofen 600 mg oral tablet)?600?Milligram?1?tablet?By Mouth?Every 8 hours?as needed?as needed for pain Insulin Glargine (Lantus 100 u/ml subcutaneous solution)?30?unit(s)?Sublingual?Daily atbedtime Lacosamide (Vimpat 150 mg oral tablet)?1?tab(s)?150?Milligram?By Mouth?2 times a day?for 30?Days?MassPat checked. Lisinopril (lisinopril 20 mg oral tablet)?20?Milligram?1?tablet?By Mouth?Daily Loperamide (loperamide 2 mg oral capsule)?1?capsule?By Mouth?Every 4 hours?as needed? NEEDED FOR LOOSE STOOLS Lorazepam (LORazepam 2 mg oral tablet)?1?tab(s)?2?Milligram?By Mouth?Daily at bedtime?for 30?Days?MassPat checked Melatonin (Melatonin 3 mg oral tablet)?1-2 tablet?By Mouth?Daily at bedtime Naratriptan (naratriptan 1 mg oral tablet)?See Instructions?TAKE 1 TABLET BY MOUTH AT ONSET OF HEADACHE, MAY REPEAT ONCE IN 4 HOURS IF NEEDED Ondansetron (ondansetron 4 mg oral tablet)?1?tab(s)?4?Milligram?By Mouth?Every 8 hours?as needed?Nausea & Vomiting Risperidone (risperiDONE 2 mg oral tablet)?2?Milligram?1?tablet?By Mouth?Daily atbedtime ? Medications Discontinued Carbmazepine Ethosuximide ?? Allergies Allergies ?(Active and Proposed Allergies Only) Toradol? (Severity: Unknown severity, Onset: Unknown) ?Reactions: C/O: a rash Versed? (Severity: Persistent Severe, Onset: Unknown) ?Reactions: throat closes up, aggitation, dyspnea ?Comments: Does fine with Ativan, Valium, Klonopin Latex? (Severity: Unknown severity, Onset: Unknown) ?Reactions: itchiness sulfa drugs? (Severity: Persistent Severe, Onset: Unknown) ?Reactions: rash, C/O: itching gabapentin? (Severity: Persistent Moderate, Onset: Unknown) ?Reactions: Agitation ? Future Appointments Friday 1:30 PM EST ?? With: Daniel Sloan DO Where: [facility] [address] [facility] [address] [place] [address]- Friday 10:30 AM EST ?? With: Sam Nobles MD Where: [facility] [address] [facility] 3[address] Floor, [address] [place] [phone]- 2022 3:30 PM EST ?? With: Where: [facility] Friday 11:00 AM EDT ?? With: Mary Morales NP Where: [facility] Plastic Surgery [address] [place] [phone]- Friday 11:00 AM EDT ?? With: Mary Morales NP Where: [facility] Plastic Surgery [address] [place] [phone]- Hospital Course Patient presented for elective 5-day vEEG monitoring. During hospital course, vEEG was without??epileptiform??or??seizure activity and no persistent focal asymmetries noted.??Button press events werewithout??EEG correlate. Notably, had apneic episodes up to 12 seconds with snoring arousals suggestive of sleep apnea. ?? 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 Diff), who presented for elective 5- Day vEEG monitoring for nocturnal events. Notably, was worked up for epilepsy at age of 9??at [facility] in[facility] reportedly??diagnosed with epilepsy at that time.??She has been trialed on Depakote and probarbital, in addition to other AED medications.??Patient reports??her last??seizure??was a couple of nights??prior??where she??wakes and feels like she is drooling out one side of her face??with??stiffening of her body that lasts 30 seconds. She also has brief spells during the day which happen frequently where she feels like she dozes off??and then has a jerk that??awakens her. ? Assessment and Plan: ?? - Epilepsy vs PNES? - During hospital course, vEEG was without??epileptiform??or??seizure activity, and no persistent focal asymmetries were noted.??Button press events were without??EEG correlate. Notably, had apneic episodes up to 12 seconds with snoring arousals suggestive of sleep monitoring and evaluation advisor ea.? Plan: Carbamazepine and Ethosuximide have been discontinued, though she will continue on home??Vimpat 150mg BID. ? Plan for follow up with Dr. Nobles regarding VNS as well as set up for outpatient sleep study.? Chronic Medical Issues: ??- Hypertension Plan:??Please continue home??BP medications ?? - Diabetes Plan: ??Please continue home??Lantus ?Lifestyle modifications ?? - Chronic pain Plan: ??On??Lyrica at home and home??Robaxin ?? - Chronic nausea Plan:??Home PRN Zofran ?? Measurements?? Height: 175 cm (12/22/22) Weight: 163.5 kg (12/17/22) Dry Weight: 163.5 kg (12/17/22) Body Mass Index:??53.39 kg/m2??Critical (12/17/22) ? Vital Signs?? Temperature: 98.2 DegF (12/22/22 03:33:00) Temperature Route: Oral (12/22/22 03:33:00) Pulse Rate:??92 bpm??High (12/22/22 03:33:00) Respiratory Rate: 18 br/min (12/22/22 05:36:00) Systolic Blood Pressure: 131 mm Hg (12/22/22 03:33:00) Diastolic Blood Pressure:??51 mm Hg??Low (12/22/22 03:33:00) Blood pressure sites: Arm, left (12/22/22 03:33:00) Mean Arterial Pressure: 78 mm Hg (12/22/22 03:33:00) Pulse Pressure: 80 mm Hg (12/22/22 03:33:00) Oxygen Saturation:??93 %??Low (12/22/22 03:33:00) Mode of Delivery (Oxygen): Room air (12/22/22 03:33:00) Early Warning Score: 2 (12/22/22 06:46:28) ? Intake/Output? 12/17 11:34 12/22 07:00 12/21 07:00 12/20 07:00 12/19 07:00 ?? 12/22 07:06 02/05 07:06 02 06:59 02/04 06:59 / 06:59 Intake ? 5460 ?0 ? 2160 ? 1440 ?660 Output ?0 ?0 ?0 ?0 ?0 Net Total ? 5460 ?0 ? 2160 ? 1440 ?660 ? Urine Count ? 21 ?0 ?5 ?4 ?6 ? Precautions Seizure Precautions ? Genaro Coma Scale Marston Coma Score: 15 (12/21/22 22:10:00) Motor Response-Adult: Obeys commands (12/21/22 22:10:00) Response Eye Opening: Spontaneously (12/21/22 22:10:00) Verbal Response-Adult: Oriented and converses (12/21/22 22:10:00) ?? . Physical Exam General:?37-year-old female, who appears stated age. Calm and cooperative. Responds appropriately to questioning. Speech clear Integ: Skin is warm, dry and intact. No diaphoresis.?? HEENT: Amblyopia. Pupils 2mm, equally round, regular, and responsive to light. Extraocular eye movements intact. No nystagmus. Hearing grossly intact.?? Respiratory: Respirations even and unlabored. Cardiovascular: Heart sounds??with regular rate and rhythm GI: Abd obese and soft. Extremities: warm and perfused. Neurological: Mental status: A&O x3. Answers questions appropriately and follows commands. Cranial Nerves: II: Pupils 2mm equally round, regular and reactive to light III, IV, : EOM intact, no gaze preference or deviation. No nystagmus. VFF. V: Facial sensation intact to light touch in V1, V2, and V3 segments. VII: No facial weakness on activation VIII: Normal hearing to speech IX, X:??Normal palatal elevation, no uvular deviation.?? XI: Shoulder shrug intact bilaterally XII: Midline tongue protrusion Motor: Musculoskeletal development appropriate for age and gender. Moves extremities freely. No tremor. Nojerking movements. No increased tone or rigidity. Strength No pronator drift. Photography Assistant: L: 03/21 ? R: 03/21 Deltoids: L: 03/21 ? R:03/21 Biceps: ?? L: 03/21 ? R:03/21 Triceps: ?? L: 03/21 ? R:03/21 Knee extension: L: 03/21 ? R: 03/21 Dorsiflexion: ? L: 03/21 ? R: 03/21?? Sensory: Sensation intact to light touch in all limbs. No hemineglect, no extinction to double sided stimulation Coordination: Finger to nose without dysmetria Gait: Deferred. Pending Results COVID-19 (2019 Novel Coronavirus) PCR ordered on 12/17/2022 Home Health Face to Face ^HomeHealthFTF Results Discharge Labs CHEM GENERAL Potassium 4.4 mmol/L ()?? 12/17/2022 13:21 Glucose, POC 154 mg/dL (High)?? 12/22/2022 06:42 ?? TOXICOLOGY/TDM Carbamazepine Level 10.6 mg/L (High)?? 12/17/2022 13:21 Zarontin Level None Detected ()?? 12/17/2022 13:21 Lacosamide,Serum 2.6 (Low)?? 12/17/2022 13:21 ? VIROLOGY COVID-19 PCR Specimen Source NASAL ()?? 12/19/2022 01:56 COVID-19 PCR Result NEGATIVE ()?? 12/19/2022 01:56 ? Blood Glucose Trend Glucose, POC:??154 mg/dL??High (12/22/22 06:42:00) Glucose, POC:??147 mg/dL??High (12/21/22 20:58:00) Glucose, POC:??140 mg/dL??High (12/21/22 16:24:00) Glucose, POC:??142 mg/dL??High (12/21/22 11:49:00) ? Microbiology ?? COVID-19 (2019 Novel Coronavirus) PCR?? Completed?? Source: Nasal Body Site: Nose Collected Dt/Tm: 12/19/2022 02:55 Last Updated Dt/Tm: 12/19/2022 14:26 ? 30??minutes spent on discharge d/w Dr. Nobles * Louann CORNELL, Sebastian: PERFORM Event Display: Patient Education/Instruction Authored Date: [id number] Inpatient Adult Discharge Instructions [address] [address] Name: KIRILL WEIR : 1985 Visit: 12/17/2022 11:34:00 Current Date: 12/22/2022 10:39 Account: [id number] Inpatient Adult Discharge Instructions We would like [...] and their families. Surveys are administered by [employer] ?? If further treatment with your primary care physician or another doctor is recommended, it is important for you to keep the appointment. Call your primary care physician or return to the Emergency Department immediately if your condition worsens, fails to improve, or new symptoms develop. If you need to find a doctor, you can call [facility] [employer] for a referral at [phone] or toll free at [phone] [facility] [email or web address] ([phone]) or log in to [email or web address].. ?? You can view and manage your care through the patient portal or by using a [employer] care erlinda of your choosing. [employer] is a website that allows you to [...] office visit. You have been discharged from [facility], Patient Care Unit: D5A. If you have any questions regarding these instructions after you leave, please call us and we will be happy to assist you. [facility] Your Care Team Attending Physician Sam Nobles MD Discharging Providers Madelin DC, Maria Fernanda Edmondson Reason for Admission SEIZURES 5 DAY VEEG D5A Your Diagnosis Epileptic seizures Tests Performed Below is a partial list of the tests performed during your hospitalization. You may have had other tests and procedures not included in this list. Please discuss all test results with your provider. Carbamazepine Level COVID-19 (2019 Novel Coronavirus) PCR Ethosuximide Level GLUCOSE POC Lacosamide Level POTASSIUM Primary Care Provider Tom White MD Advance Directive Health Care Proxy on File Yes - Health Care Proxy Discharge Vitals Temperature: 97.3 DegF Height: 175 cm Pulse Rate: 88 bpm Weight: 163.5 kg Respiratory Rate: 20 br/min Body Mass Index:??53.39 kg/m2??Critical Systolic Blood Pressure: 98 mm Hg Body surface area: 2.82 Diastolic Blood Pressure:??52 mm Hg??Low ?? Oxygen Saturation: 94 % ?? Studies Pending All tests and labs ordered during this hospital stay have been completed unless listed below. Please discuss all pending results with your provider listed above in these instructions. ?? COVID-19 (2019 Novel Coronavirus) PCR What to do next Instructions From Your Doctor Discharge Orders Scheduled Follow-Up Appointments Friday 1:30 PM EST ?? With: Daniel Sloan DO Where: [facility] [address] [facility] [address] [place] [address]- Friday 10:30 AM EST ?? With: Sam Nobles MD Where: [facility] [address] [facility] [address], [address] [place] [address]- 2022 3:30 PM EST ?? With: Where: [facility] Friday 11:00 AM EDT ?? With: Mary Morales NP Where: [facility] Plastic Surgery [address] [place] [phone]- Friday 11:00 AM EDT ?? With: Mary Morales NP Where: [facility] Plastic Surgery [address] [place] [phone]- Discharge Medications KIRILL WEIR :1985 Visit Date:12/17/2022 Medications: Please continue your medications until treatment is completed or stopped by your provider. Medications not listed below should be discontinued. Discuss any questions related to medications with your provider. What How Much When Instructions Next Dose Unchanged Budesonide (budesonide 3 mg oral delayed release capsule) 3 capsule Oral Daily in the morning Home taper: 3 tabs daily for 3 weeks 2 tabs daily for 3 weeks 1 tab daily for 2 weeks then stop ?? as directed Unchanged BusPIRone (busPIRone 7.5 mg oral tablet) 1 tab(s) Oral Twice a day tomorrow 12/23/22 in the morning Unchanged Cholecalciferol (Vitamin D3 2000 intl units oral capsule) 1 capsule Oral Daily tomorrow 12/23/22 in the morning Unchanged Cyanocobalamin (Vitamin B12 1000 mcg oral tablet) 1 tab(s) Oral Daily tomorrow 12/23/22 in the morning Unchanged Cyclobenzaprine (Flexeril 10 mg oral tablet) 1 tab(s) Oral 3 times a day as needed for for spasm earliest next at noon today if needed Unchanged Dicyclomine (dicyclomine 20 mg oral tablet) 1 tab(s) Oral 3 times a day tomorrow 12/23/22 in the morning Unchanged Escitalopram (escitalopram 10 mg oral tablet) 1 tab(s) Oral Daily in the morning tomorrow 12/23/22 in the morning Unchanged Ibuprofen (ibuprofen 600 mg oral tablet) 1 tab(s) Oral Every 8 hours as needed for as needed for pain earliest next at noon today if needed Unchanged Insulin Glargine (Lantus 100 u/ ml subcutaneous solution) 30 unit(s) Sublingual Daily at Bedtime tonight as directed Unchanged Lacosamide (Vimpat 150 mg oral tablet) 1 tab(s) Oral Twice a day Duration: 30 Days MassPat checked. ?? as directed Unchanged Lisinopril (lisinopril 20 mg oral tablet) 1 tab(s) Oral Daily tomorrow 12/23/22 in the morning Unchanged Loperamide (loperamide 2 mg oral capsule) 1 capsule Oral Every 4 hours as needed for NEEDED FOR LOOSE STOOLS as directed, not given lately Unchanged Lorazepam (LORazepam 2 mg oral tablet) 1 tab(s) Oral Daily at Bedtime Duration: 30 Days MassPat checked ?? as directed Unchanged Melatonin (Melatonin 3 mg oral tablet) 1-2 tablet Oral Daily at Bedtime as directed Unchanged Naratriptan (naratriptan 1 mg oral tablet) See instructions TAKE 1 TABLET BY MOUTH AT ONSET OF HEADACHE, MAY REPEAT ONCE IN 4 HOURS IF NEEDED ?? as directed not given today Unchanged Ondansetron (ondansetron 4 mg oral tablet) 1 tab(s) Oral Every 8 hours as needed for Nausea & Vomiting as directed not given today Unchanged Risperidone (risperiDONE 2 mg oral tablet) 1 tab(s) Oral Daily at Bedtime as directed ?? What How Much When Comments Stop Taking Carbamazepine (carBAMazepine 200 mg oral tablet, extended release) Oral Daily Stop Taking Carbamazepine (carBAMazepine 400 mg oral tablet, extended release) Oral Daily at Bedtime Stop Taking Ethosuximide (ethosuximide 250 mg oral capsule) 2 capsule Oral Daily at Bedtime Test Results Below is a partial list of the most recent Laboratory test results done prior to this discharge. You may have had other tests and procedures not included in this list. Please discuss all test resultswith your provider. Carbamazepine Level (12/17/2022) ???Carbamazepine Level - 10.6 mg/L COVID-19 (2019 Novel Coronavirus) PCR (12/19/2022) ???COVID-19 PCR Specimen Source - NASAL???COVID-19 PCR Result - NEGATIVE Ethosuximide Level (12/17/2022) ???Zarontin Level - None Detected GLUCOSE POC (12/22/2022) ???Glucose, POC - 154 mg/dL Lacosamide Level (12/17/2022) ???Lacosamide,Serum - 2.6 POTASSIUM (12/17/2022) ???Potassium - 4.4 mmol/L Allergies (NKA means No Known Allergies) Versed??(dyspnea, aggitation, throat closes up) gabapentin??(Agitation) sulfa drugs??(rash, C/O: itching) Latex??(itchiness) Toradol??(C/O: a rash) Problems Active Problems??(7) Biliary colic?? Depression?? Epileptic seizures?? Intractable diarrhea?? Morbid obesity?? Seizure?? Severe obesity?? Education Materials Below is the list of Educational Leaflet Providered with your Discharge Instructions. Discharge Instructions for Epilepsy?? Valuables and Belongings I fully understand and agree that [facility] accepts no responsibility for all my personal [...] to send valuables and belongings home. ?? Review of Valuable and Belonging List: With patient Date for Pt to Sign Valuables/Belongings: 12/17/22 13:02:00 ?? Other Discharge Information ? Pulmonary Rehab Status?? Pulmonary Rehab Discharge Status?? Respiratory Rate: 20 br/min ? Common Emergency Awareness Tips IS [...] are strongly encouraged to quit. Please call [facility] [employer] at [phone] or [phone] ([phone]) or log in to [email or web address] for referrals to smoking cessation programs. ?? The National Suicide Prevention Hotline is available 09/06 if you or someone you know needs to find a reason to keep living. By calling 5-669-346-[employer] (7986) you'll be connected to a skilled, trained counselor at a crisis center in your area. INPATIENT DISCHARGE INSTRUCTIONS SIGNATURE TERELL KIRILL WEIR Location:[facility] Registration Date and Time:12/17/2022 11:34 EST Primary Care Physician: Christopher RIDDLE, Tom Choudhury, I CARMELLA, KIRILL, have received the above patient education materials/instructions and have verbalized understanding. If ambulance or transport services are being used I further acknowledge being given a choice of service. ?? If you need to contact me, please call me at this number: . Patient/Service Technician Copier Name: Patient/Service Technician Copier Signature: Relationship to Patient: Witness Name/Signature: Date: * Sebastian Lew RN: PERFORM Event Display: Patient Education Leaflets Authored Date: [id number] Discharge Instructions for Epilepsy ?? [id number] Discharge Instructions for Epilepsy You have been diagnosed with epilepsy, a disorder of recurring seizures. When you have a seizure,??an electrical disturbance??happens in your brain. There are different kinds of seizures, and each person may have one or many types of seizures. Here are some guidelines for you and your family. If you have a seizure Ask friends and family members to learn how to manage a seizure. Also tell them??to do the following if you have a seizure: ??? Clear the area to prevent injury. ??? Position you on a flat, carpeted surface, if possible. ??? Don???t try to restrain you. ??? Don???t put anything in your mouth. ??? Turn you onto your side if you start to vomit. ??? Keep track of the date and time the seizure started, how long it lasted, if you lost consciousness, a description of your body movements, what provoked the seizure (if known), and any injuries you suffered. Using a watch may help keep correct time of events.? Stay with you until you regain consciousness. ??? Call 911 if the seizure is longer than 5 minutes, if there are multiple seizures, or if you don't start to wake up after the seizure stops.? You'll will probably be confused and drowsy after the seizure. Rest until you feel recovered enoughto continue your pre-seizure activity. ?? Activities Following??are some things to consider: ??? Enjoy your normal activities. Most people with epilepsylead normal lives. ??? Don't do hazardous activities, such as mountain climbing or scuba diving. A seizure under these conditions could lead to a fatal accident. ??? Many other activities can be verydangerous if you were to have a seizure. If you are on a ladder or roof or operating heavy equipment or sharp tools, you could be seriously injured. Talk with your healthcare provider about any activities you are unsure of. ??? Don't swim alone or take part in other similar activities without others nearby. ??? Ask your healthcare provider about any restrictions on driving or other activities. ??? Check with your state department of public safety to learn whether there are any driving limits based on your condition. Each state has different laws on driving after seizures. ?? Other home care Other considerations: ??? Take your??medicine exactly as directed. Skipping doses can affect the way your body handles the medicine, which could cause you to have a seizure. ??? Don???t drink alcoholor use any??medicine without talking with your??provider??first. ??? Make sure all of your healthcare providers have a list of all your medicines.??Seizure medicines may interact with other medicines. ??? Ask your provider what to do if you take control pills. They may not work as well when taking seizure medicines. ? Think about how to keep small children safe if you are caring for them when you have a a seizure. ??? Wear a medical alert pendant or bracelet that alerts others to your condition. The ID should include any medicine allergies ??? Join a local support group. Ask your??provider??for names and phone numbers. ??? Talk with your provider if you are trying to become . Some medicines for treating epilepsy and seizures can cause defects when taken during . Folic acid may reduce the risk for some of these defects. Ask your provider if you should take folic acid or take other precautions. ?? Call 911 Tell your family members or friends to call 911 right away if you have: ??? Seizure that lasts morethan 5??minutes ??? Multiple seizures in a row ??? Not regained consciousness after the seizure stops ?? When to call your healthcare provider You or your family members or friends should call your??provider??right away if you have: ??? Seizures that are getting longer and worse ??? Seizures that are different from those you???ve had in thepast ??? Questions about missed medicines or medicine interactions ??? Seizures strong enough to cause injury ??? Medicine side effects ??? Skin rash ??? Fever of 100.4??F (38??C) or higher, or as directed by your provider ??? Symptoms get worse or you have new symptoms ?? Last Reviewed Date: 2021 ?? 6789-5617 [employer]. All rights reserved. This information is not intended as a substitute for professional medical care. Always follow your healthcare professional's instructions. ?? Patient Care team information Care Team Personnel Name: Michelle Fox RN Position: [facility] RN Member Role: Primary Care Nurse Name: Nyasia Cadet NP Position: [facility] Associate Professional Member Role: Primary Care Nurse Address: Address: [address] [place] [phone]- Name: Roni Hunt RN Position: [facility] RN Member Role: Primary Care Nurse Name: Roya Jaramillo RN Position: [facility] RN Member Role: Primary Care Nurse Name: Steve Rose RN Position: [facility] RN Member Role: Primary Care Nurse Name: Tamika Mcguire RN Position: [facility] AMB Nurse Member Role: Primary Care Nurse Name: Gomez Daugherty RN Position: [facility] RN Member Role: Primary Care Nurse Name: Paolo Patterson RN Position: [facility] RN Member Role: Primary Care Nurse Name: Clarisa Mederos RN Position: [facility] RN Member Role: Primary Care Nurse Name: Loreta Pitts RN Position: [facility] RN Member Role: Primary Care Nurse Name: Tom White MD Position: Reference Physician Member Role: PCP Address: Address: [address] [place] [address] [place] [address]- Name: Philomena Benavides RN Position: [facility] RN Member Role: Primary Care Nurse Name: Cortney Benavides RN Position: [facility] RN Member Role: Primary Care Nurse Name: Stefany Lewis RN Position: [facility] CYNDEE RN W/OE and Tasks Member Role: Primary Care Nurse Name: Chiquita Cuevas RN Position: [facility] RN Member Role: Primary Care Nurse Name: Stefany Hamilton RN Position: [facility] Welding Teacher Member Role: Primary Care Nurse Name: Dee Davila RN Position: [facility] RN Member Role: Primary Care Nurse Name: Natalie Lopez RN Position: [facility] RN Member Role: Primary Care Nurse Name: Juan Diego Virgen RN Position: [facility] RN Member Role: Primary Care Nurse Address: Address: [address] [place] [address]- Name: Iwona Jones RN Position: [facility] RN Member Role: Primary Care Nurse Name: Angelika Villa RN Position: [facility] RN Member Role: Primary Care Nurse Name: Brandi Holman RN Position: [facility] RN Member Role: Primary Care Nurse Name: Candi Moore RN Position: [facility] SN RN Member Role: Primary Care Nurse Name: Stacy Yadav RN Position: [facility] Welding Teacher Member Role: Primary Care Nurse Name: Kenney Hodge RN Position: [facility] SN RN Member Role: Primary Care Nurse Name: Lexis Byers Position: [facility] RN Member Role: Primary Care Nurse Care Team Related Persons Name: RAMÓN HARRELL Address: home [address] [address] Name: RAMÓN CARTAGENA Address: [place] [address] Name: LING WEIR Address: home [address] [place] [address]
--- OUTSIDE RECORDS SUMMARY | 2023-10-13 11:44 | XMS_ITS | Continuity of Care Document ---
Author Name Unknown Organization [facility] Address [address], [address] Floor, [address] [place] [address]- Care Team Providers Care Self Contained Behavior Unit Teacher Name Role Phone Christopher RIDDLE, Tom Choudhury Primary Care Physician [place] [facility] [place] 08/22/23 - 09/21/23 [facility] [address], [address], [address] [place] [address]- Allergies, Adverse Reactions, Alerts Substance Reaction Severity Status gabapentin Agitation Persistent Moderate Active Toradol C/O: a rash Active sulfa drugs rash C/O: itching Persistent Severe Active Versed 1 dyspnea aggitation throat closes up Persistent Severe Active Latex itchiness Active 1Does fine with Ativan, Valium, Klonopin Immunizations Given and Recorded Vaccine Date Status Refusal Reason pneumococcal 23-valent vaccine 1 08/26/22 Recorded pneumococcal 23-valent vaccine 04/10/17 Given [id number] 12y+ bivalent booster vax 2 08/26/22 Recorded SARS-CoV-2 (COVID-19) mRNA BNT-162b2 vac 10/19/21 Recorded SARS-CoV-2 (COVID-19) mRNA BNT-162b2 vac 04/07/21 Recorded SARS-CoV-2 (COVID-19) mRNA BNT-162b2 vac 03/17/21 Recorded influenza virus vaccine, inactivated 08/12/21 Gentry rded 1Result Comment: .5ML IM/LD Lot [id number] [facility] D Exp 08.16.2023 [facility] [phone] 2Result Comment: .3Ml IM/ LD Lot [id number] Exp 10.01.2022 [facility] [phone] Medications Albuterol (Eqv-ProAir HFA) Inhalation, Every 6 hours, 0 Refills, Maintenance, 04/10/23 13:27:00 EDT, Partial fill upon patientrequest if the prescription is for a schedule II opioid drug. Start Date: 04/10/23 Status: Ordered dicyclomine 20 mg oral tablet 1 tablet, By Mouth, 3 times a day, # 90 tablet, 0 Refills, Maintenance, 09/03/23 16:04:00 EDT, [id number], 173, cm, 05/07/23 13:17:00 EDT, Height, 163.7, kg, 05/07/23 13:17:00 EDT, Dry Weight Start Date: 09/03/23 Status: Ordered escitalopram 10 mg oral tablet [...] Status: Ordered lacosamide 150 mg oral tablet 1 tablet = 150 mg, By Mouth, 2 times a day, # 60 tablet, 5 Refills, Maintenance, 08/11/23 13:46:00 EDT, [facility]/pharmacy #1234, 173, cm, 05/07/23 13:17:00 EDT, Height, 163.7, kg, 05/07/23 13:17:00 EDT, Dry Weight Start Date: 08/11/23 Stop Date: 02/07/24 Status: Ordered Lantus 100 u/ml subcutaneous solution [...] 04/21/23 15:34:00 EDT, Route to Pharmacy Electronically, [facility]/pharmacy #1234, 173, cm, 04/10/23 13:09:00 EDT, [...] UNSATISFACTORY, # 12 tablet, 0 Refills, Maintenance, 09/15/23 9:00:00 EDT, [facility] STORE [id number], 173, cm, 05/07/23 13:17:00 EDT, Height, 163.7... Start Date: 09/15/23 Status: Ordered Trulicity Pen 0.75 mg/0.5 mL subcutaneous solution 0.5 mL = 0.75 mg, Subcutaneous Injection, Every week, friday, 0 Refills, Maintenance, 03/08/23 11:42:00 EDT, Solution, Partial fill upon patient request if the prescription is for a schedule II opioid drug. Start Date: 03/08/23 Status: Ordered Problem List Condition Confirmation Course [...] Team Personnel Name: Michelle Fox RN Position: [facility] RN Member Role: Primary Care Nurse Name: Nyasia Cadet NP Position: [facility] Associate Professional Member Role: Primary Care Nurse Address: Address: [address] [place] [address]- Name: Roni Hunt RN Position: S RN Member Role: Primary Care Nurse Name: Roya Jaramillo RN Position: S RN Member Role: Primary Care Nurse Name: My Fonseca NP Position: S Associate Professional Member Role: Lifetime Consulting Provider Address: Address: [address] [place], [place] [address] [place] [address]- Name: Gomez Daugherty RN Position: S RN Member Role: Primary Care Nurse Name: Paolo Patterson RN Position: S RN Member Role: Primary Care Nurse Name: Clarisa Mederos RN Position: S RN Member Role: Primary Care Nurse Name: Loreta Pitts RN Position: S RN Member Role: Primary Care Nurse Name: Tom White MD Position: Reference Physician Member Role: PCP Address: Address: [address] [place] [address] [place] [address]- [place] Name: Philomena Benavides NP Position: [facility] PCO Associate Professional Member Role: Primary Care Nurse Address: Address: [address] [place] [address]- [place] Name: Cortney Benavides RN Position: [facility] RN Member Role: Primary Care Nurse Name: Gloria Mims RN Position: [facility] RN Member Role: Primary Care Nurse Name: Stefany Lewis RN Position: [facility] ED RN W/OE and Tasks Member Role: Primary Care Nurse Name: Adia Cuevas RN Position: [facility] RN Member Role: Primary Care Nurse Name: Stefany Hamilton RN Position: [facility] Supervisor Bottle House Cleaners Member Role: Primary Care Nurse Name: Dee Davila RN Position: [facility] RN Member Role: Primary Care Nurse Name: Natalie Lopez RN Position: [facility] RN Member Role: Primary Care Nurse Name: Juan Diego Anguiano RN Position: [facility] RN Member Role: Primary Care Nurse Address: Address: [address] [place] [address]- [place] Name: Iwona Jones RN Position: [facility] RN Member Role: Primary Care Nurse Name: Angelika Villa RN Position: [facility] RN Member Role: Primary Care Nurse Name: Brandi Holman RN Position: [facility] OB RN Member Role: Primary Care Nurse Name: Candi Moore RN Position: [facility] SN RN Member Role: Primary Care Nurse Name: Stacy Yadav RN Position: [facility] Supervisor Bottle House Cleaners Member Role: Primary Care Nurse Name: Goran Hodge RNeekareginald Position: [facility] SN RN Member Role: Primary Care Nurse Name: Lexis Byers RN Position: [facility] RN Member Role: Primary Care Nurse Care Team Related Persons Name: JULIO CESAR ADIABASSAM Address: home [address] [place] [address] Name: RAMÓN CARTAGENA Address: home [place], [place] Name: LING WEIR Address: home [address] [place] [address]
--- OUTSIDE RECORDS SUMMARY | 2023-10-13 11:44 | XMS_ITS | Continuity of Care Document ---
Author Name Unknown Organization [facility] Address [address] [place], [place] [address]julio shin, [address] [place] [address]- Care Team Providers Care Sand Carrier Name Role Phone Christopher RIDDLE, Tom Choudhury Primary Care Physician [phone] Encounter [facility] Date(s): 12/26/22 - 01/25/23 [facility] [address] [place] [address] Drive, [address] [place] [address]- Allergies, Adverse Reactions, Alerts Substance Reaction Severity Status gabapentin Agitation Persistent Moderate Active sulfa drugs rash C/O: itching Persistent Severe Active Versed 1 dyspnea aggitation throat closes up Persistent Severe Active Latex itchiness Active Toradol C/O: a rash Active 1Does fine with Ativan, Valium, Klonopin Immunizations Given and Recorded Vaccine Date Status Refusal Reason pneumococcal 23-valent vaccine 1 08/26/22 Recorded pneumococcal 23-valent vaccine 04/10/17 Given [id number] 12y+ bivalent booster vax 2 08/26/22 Recorded SARS-CoV-2 (COVID-19) mRNA BNT-162b2 vac 10/19/21 Recorded SARS-CoV-2 (COVID-19) mRNA BNT-162b2 vac 04/07/21 Recorded SARS-CoV-2 (COVID-19) mRNA BNT-162b2 vac 03/17/21 Recorded influenza virus vaccine, inactivated 08/12/21 Gentry rded Not Given Vaccine Date Status Refusal Reason influenza virus vaccine, inactivated 08/23/20 Not Given Parent Or Guardian Refuses 1Result Comment: .5ML IM/LD Lot [id number] [facility] [employer] D Exp 08.16.2023 [facility] [phone] 2Result Comment: .3Ml IM/ LD Lot [id number] Exp 10.01.2022 [facility] [phone] Medications budesonide 3 mg oral delayed release capsule See Instructions, TAKE 3 TABLETS DAILY X3 WEEKS THEN 2 TABS DAILY X3 WEEKS THEN 1 TAB DAILY X2 WEEKS THEN STOP, # 77 capsule, 2 Refills, Maintenance, 12/24/22 8:57:00 EST, [facility] STORE [id number], 175, cm, 12/22/22 3:33:00 EST, Height, 163.5, kg, 12/17/22 13:... Start Date: 12/24/22 Status: Ordered busPIRone 7.5 mg oral tablet 1 tablet = 7.5 mg, By Mouth, 2 times a day Start Date: 11/25/22 Status: Ordered dicyclomine 20 mg oral tablet 1 tablet, By Mouth, 3 times a day, # 90 tablet, 0 Refills, Maintenance, 12/09/22 14:29:00 EST, [facility]/pharmacy #1234, 175, cm, 11/27/22 15:01:00 EST, Height, 163.5, kg, 11/24/22 14:49:00 EST, Dry Weight Start Date: 12/09/22 Status: Ordered docusate sodium 100 mg oral capsule 100 mg, 1, capsule, By Mouth, 2 times a day, # 20 capsule, Refills 0, Tot. Refills 0, Maintenance, 01/07/23 16:27:00 EST, Route to Pharmacy Electronically, [facility], Partial fill uponpatient request if [...] 11/27/22 13:43:00 EST, Route to Pharmacy Electronically, [facility] 3, Partial fill upon patient request if the prescription is for a schedule II opioi... Start Date: 11/27/22 Status: Ordered loperamide 2 mg oral capsule 1, capsule, By Mouth, Every 4 hours, PRN, # 60 capsule, Refills 0, Maintenance, NEEDED FOR LOOSESTOOLS, 01/21/23 16:35:00 EST, Route to Pharmacy Electronically, [facility] 430[facility], 173, cm, 01/02/2317:14:00 EST, Height, 163.3, kg, 01/02/23 17:14:00... Start Date: 01/21/23 Status: Ordered LORazepam 2 mg oral tablet 1 tablet = 2 mg, By Mouth, Daily at bedtime, for 30 days, MassPat checked, # 30 tablet, 5 Refills, Acute 03/24/23 18:15:00 EDT, 09/25/22 18:15:00 EST, [facility]/pharmacy #1234, 175, cm, 09/15/22 17:17:00 [...] 0 Refills, Maintenance, 01/07/23 16:25:00 EST, Tablet, [facility] 3, Partial fill upon patient request ifthe [...] 5 Refills, Maintenance, 09/23/22 14:32:00 EST, Tablet, [facility]/pharmacy #1234, 175, cm, 09/15/22 17:17:00 [...] Team Personnel Name: Michelle Fox RN Position: [facility] RN Member Role: Primary Care Nurse Name: Nyasia Cadet NP Position: [facility] Associate Professional Member Role: Primary Care Nurse Address: Address: [address] [place] [address]- [place] Name: Roni Hunt RN Position: [facility] RN Member Role: Primary Care Nurse Name: Roya Jaramillo RN Position: [facility] RN Member Role: Primary Care Nurse Name: Steve Rose RN Position: [facility] RN Member Role: Primary Care Nurse Name: Tamika Mcguire RN Position: [facility] AMB Nurse Member Role: Primary Care Nurse Name: Gomez Daugherty RN Position: [facility] RN Member Role: Primary Care Nurse Name: Paolo Patterson RN Position: [facility] RN Member Role: Primary Care Nurse Name: Clarisa Mederos RN Position: [facility] RN Member Role: Primary Care Nurse Name: Loreta Pitts RN Position: [facility] RN Member Role: Primary Care Nurse Name: Tom White MD Position: Reference Physician Member Role: PCP Address: Address: [address] [place] [address]- [place] Name: Philomena Benavides RN Position: [facility] RN Member Role: Primary Care Nurse Name: Cortney Benavides RN Position: [facility] RN Member Role: Primary Care Nurse Name: Stefany Lewis RN Position: [facility] ED RN W/OE and Tasks Member Role: Primary Care Nurse Name: Adia Cuevas RN Position: [facility] RN Member Role: Primary Care Nurse Name: Stefany Hamilton RN Position: [facility] Credit Processor Member Role: Primary Care Nurse Name: Dee Davila RN Position: [facility] RN Member Role: Primary Care Nurse Name: Natalie Lopez RN Position: [facility] RN Member Role: Primary Care Nurse Name: Juan Diego Anguiano RN Position: [facility] RN Member Role: Primary Care Nurse Address: Address: [address] [place] [address]- [place] Name: Iwona Jones RN Position: [facility] RN Member Role: Primary Care Nurse Name: Angelika Villa RN Position: [facility] RN Member Role: Primary Care Nurse Name: Brandi Holman RN Position: [facility] RN Member Role: Primary Care Nurse Name: Candi Moore RN Position: [facility] SN RN Member Role: Primary Care Nurse Name: Stacy Yadav RN Position: [facility] Credit Processor Member Role: Primary Care Nurse Name: Kenney Hodge RN Position: [facility] RN Member Role: Primary Care Nurse Care Team Related Persons Name: JULIO CESAR ADIABASSAM Address: home [address] [place] [address] Name: RAMÓN CARTAGENA Address: [place] [address] Name: LING WEIR Address: home [address] [place] [address]
--- OUTSIDE RECORDS SUMMARY | 2023-10-13 11:44 | XMS_ITS | Continuity of Care Document ---
Author Name Unknown Organization [facility] Address [address], [address], [address] [place] [address]- Care Team Providers Care Edge Trimmer Mechanic Name Role Phone Kp RIDDLE, Marisela John Primary Care Physicia n En[place] [facility] [place] Date(s): 02/10/23 - 03/12/23 [facility] [address], [address], [address] [place] [address]- Allergies, Adverse Reactions, Alerts Substance Reaction Severity [...] 08/26/22 Recorded pneumococcal 23-valent vaccine 04/10/17 Given [id number] 12y+ bivalent booster vax 2 08/26/22 Recorded SARS-CoV-2 (COVID-19) mRNA BNT-162b2 vac 10/19/21 Recorded SARS-CoV-2 (COVID-19) mRNA BNT-162b2 vac 04/07/21 Recorded SARS-CoV-2 (COVID-19) mRNA BNT-162b2 vac 03/17/21 Recorded influenza virus vaccine, inactivated 08/12/21 Gentry rded Not Given Vaccine Date Status Refusal Reason influenza virus vaccine, inactivated 08/23/20 Not Given Parent Or Guardian Refuses 1Result Comment: .5ML IM/LD Lot [id number] [facility] [employer] D Exp 08.16.2023 [facility] [phone] 2Result Comment: .3Ml IM/ LD Lot [id number] Exp 10.01.2022 [facility] [phone] Medications Augmentin 875 mg-125 mg oral tablet 1 tablet, By Mouth, Every 12 hours, for 5 days, with food or milk, # 10 tablet, 0 Refills, Acute 03/17/23 14:28:00 EDT, 03/12/23 14:28:00 EDT, [facility]/pharmacy #1234, Partial fill upon patient request [...] tablet, 0 Refills, Maintenance, 02/24/23 8:38:00 EDT, [facility] STORE [id number], 173, cm, 01/27/23 8:03:00 EDT, Height, 164.8, [...] 02/24/23 15:54:00 EDT, Route to Pharmacy Electronically, [facility] STORE [id number], 173, cm, 02/25/2312:35:00 EDT, Height, 164.8, kg, 02/11/23 10:22:00... Start Date: 02/24/23 Status: Ordered LORazepam 2 mg oral tablet 1 tablet = 2 mg, By Mouth, Daily at bedtime, for 30 days, MassPat checked, # 30 tablet, 5 Refills, Acute 03/24/23 18:15:00 EDT, 09/25/22 18:15:00 EST, [facility]/pharmacy #1234, 175, cm, 09/15/22 17:17:00 [...] tablet, 1 Refills, Maintenance, 08/26/22 8:54:00 EDT, [facility]/pharmacy #1234, 173, cm, 05/06/22 13:26:00 EDT, Height, 146, kg, 05/06/22 13:26:00 EDT,... Start Date: 08/26/22 Status: Ordered oxyCODONE 5 mg oral tablet 5 mg, 1, tablet, By Mouth, Every 6 hours, PRN, # 7 tablet, Refills 0, Tot. Refills 0, Acute 03/19/23 17:00:00 EDT, for pain, 03/12/23 14:28:00 EDT, Route to Pharmacy Electronically, [facility]/pharmacy #1234, Partial fill upon patient request if the prescrip... Start Date: 03/12/23 Stop Date: 03/19/23 Status: Ordered Risperidone = 0.5 mg, By [...] 03/12/23 14:27:00 EDT, Route to Pharmacy Electronically, [facility]/pharmacy #1234, Partial fill upon... Start Date: 03/12/23 Stop Date: 03/19/23 Status: Ordered Vimpat 150 mg oral tablet 1 tablet = 150 mg, By Mouth, 2 times a day, MassPat checked., # 60 tablet, 5 Refills, Maintenance, 09/23/22 14:32:00 EST, Tablet, [facility]/pharmacy #1234, 175, cm, 09/15/22 17:17:00 [...] Team Personnel Name: Michelle Fox RN Position: [facility] RN Member Role: Primary Care Nurse Name: Nyasia Cadet NP Position: [facility] Associate Professional Member Role: Primary Care Nurse Address: Address: [address] [place] [address]- Name: Roni Hunt RN Position: [facility] RN Member Role: Primary Care Nurse Name: Roya Jaramillo RN Position: [facility] RN Member Role: Primary Care Nurse Name: Steve Rose RN Position: [facility] RN Member Role: Primary Care Nurse Name: Tamika Mcguire RN Position: [facility] AMB Nurse Member Role: Primary Care Nurse Name: My Fonseca NP Position: [facility] Associate Professional Member Role: Lifetime Consulting Provider Address: Address: [address] [place], [place] [address] [place], [place] [address] Name: Gomez Daugherty RN Position: [facility] RN Member Role: Primary Care Nurse Name: Paolo Patterson RN Position: S RN Member Role: Primary Care Nurse Name: Clarisa Mederos RN Position: [facility] RN Member Role: Primary Care Nurse Name: Loreta Pitts RN Position: S RN Member Role: Primary Care Nurse Name: Philomena Benavides RN Position: S RN Member Role: Primary Care Nurse Name: Cortney Benavides RN Position: S RN Member Role: Primary Care Nurse Name: Marisela Goodrich MD Position: Reference Physician Member Role: PCP Address: Address: [address] [place] [address]- [place] Name: Gloria Mims RN Position: [facility] RN Member Role: Primary Care Nurse Name: Stefany Lewis RN Position: [facility] ED RN W/OE and Tasks Member Role: Primary Care Nurse Name: Adia Cuevas RN Position: [facility] RN Member Role: Primary Care Nurse Name: Stefany Hamilton RN Position: [facility] Secured Entrance Monitor Member Role: Primary Care Nurse Name: Dee Davila RN Position: [facility] RN Member Role: Primary Care Nurse Name: Natalie Lopez RN Position: [facility] RN Member Role: Primary Care Nurse Name: Juan Diego Anguiano RN Position: [facility] RN Member Role: Primary Care Nurse Address: Address: [address] [place] [address]- [place] Name: Iwona Jones RN Position: [facility] RN Member Role: Primary Care Nurse Name: Angelika Villa RN Position: [facility] RN Member Role: Primary Care Nurse Name: Brandi Holman RN Position: [facility] OB RN Member Role: Primary Care Nurse Name: Candi Moore RN Position: [facility] SN RN Member Role: Primary Care Nurse Name: Stacy Yadav RN Position: [facility] Secured Entrance Monitor Member Role: Primary Care Nurse Name: Kenney Hodge RN Position: [facility] SN RN Member Role: Primary Care Nurse Name: Lexis Byers RN Position: [facility] RN Member Role: Primary Care Nurse Care Team Related Persons Name: ADIA HARRELLBASSAM Address: home [address] [place] [address] Name: RAMÓN CARTAGENA Address: [place] [address] Name: LING WEIR Address: home [address] [place] [address]
--- OUTSIDE RECORDS SUMMARY | 2023-10-13 11:44 | XMS_ITS | Continuity of Care Document ---
Author Name Unknown Organization [facility] Address [address], [address] Floor, [address] [place] [id number]- Care Team Providers Care Health Associate Name Role Phone Christopher RIDDLE, Tom Choudhury Primary Care Physician [phone] Encounter [facility] Date(s): 10/28/22 - 11/27/22 [facility] [address], [address], [address] [place] [id number] Allergies, Adverse Reactions, Alerts Substance Reaction Severity [...] 08/26/22 Recorded pneumococcal 23-valent vaccine 04/10/17 Given [id number] 12y+ bivalent booster vax 2 08/26/22 Recorded SARS-CoV-2 (COVID-19) mRNA BNT-162b2 vac 10/19/21 Recorded SARS-CoV-2 (COVID-19) mRNA BNT-162b2 vac 04/07/21 Recorded SARS-CoV-2 (COVID-19) mRNA BNT-162b2 vac 03/17/21 Recorded influenza virus vaccine, inactivated 08/12/21 Gentry rded Not Given Vaccine Date Status Refusal Reason influenza virus vaccine, inactivated 08/23/20 Not Given Parent Or Guardian Refuses 1Result Comment: .5ML IM/LD Lot [id number] [facility] D Exp 08.16.2023 [facility] [phone] 2Result Comment: .3Ml IM/ LD Lot [id number] Exp 10.01.2022 [facility] Pharm[facility] [phone] Medications budesonide 3 mg oral delayed release [...] opioid drug. Start Date: 11/27/22 Status: Ordered cefdinir 300 mg oral capsule 1 capsule = 300 mg, By Mouth, Every 12 hours, for 1 days, # 2 capsule, 0 Refills, Acute 11/29/22 8:00:00 EST, 11/28/22 8:00:00 EST, Capsule, [facility], Partial fill upon patient request if the prescription is for a schedule II opioid . Start Date: 11/28/22 Stop Date: 11/29/22 Status: Ordered dicyclomine 20 mg oral tablet 1 tablet, By Mouth, 3 times a day, # 90 tablet, 0 Refills, Maintenance, 11/12/22 14:55:00 EST, [facility] STORE [id number], 173, cm, 10/13/22 7:56:00 EST, Height, 155, kg, 10/13/22 7:56:00 EST, Dry Weight Start Date: 11/12/22 Status: Ordered escitalopram 10 mg oral tablet [...] 11/27/22 13:43:00 EST, Route to Pharmacy Electronically, [facility], Partial fill upon patient request if the prescription is for a schedule II opioi... Start Date: 11/27/22 Status: Ordered loperamide 2 mg oral capsule 1, capsule, By Mouth, Every 4 hours, PRN, # 60 capsule, Refills 0, Maintenance, NEEDED FOR LOOSESTOOLS, 11/12/22 14:55:00 EST, Route to Pharmacy Electronically, [facility] STORE [id number], 173, cm, 227:56:00 EST, Height, 155, kg, 10/13/22 7:56:00 EST,... Start Date: 11/12/22 Status: Ordered LORazepam 2 mg oral tablet 1 tablet = 2 mg, By Mouth, Daily at bedtime, for 30 days, MassPat checked, # 30 tablet, 5 Refills, Acute 03/24/23 18:15:00 EDT, 09/25/22 18:15:00 EST, [facility]/pharmacy #[id number], 175, cm, 09/15/22 17:17:00 [...] tablet, 1 Refills, Maintenance, 08/26/22 8:54:00 EDT, [facility]/pharmacy #[id number], 173, cm, 05/06/22 13:26:00 EDT, Height, 146, kg, 05/06/22 13:26:00 EDT,... Start Date: 08/26/22 Status: Ordered ondansetron 4 mg oral tablet 1 tablet = 4 mg, By Mouth, Every 8 hours, PRN Nausea & Vomiting, # 10 tablet, 0 Refills, Maintenance, 11/27/22 13:45:00 EST, Tablet, [facility], Partial fill upon patient request ifthe prescription is for a schedule II opioid drug., 175... Start Date: 11/27/22 Status: Ordered oxyCODONE 5 mg oral tablet 5 mg, 1, tablet, By Mouth, Every 6 hours, PRN, for 3 days, # 12 tablet, Refills 0, Tot. Refills 0, Acute 11/30/22 13:44:00 EST, as needed for pain, 11/27/22 13:44:00 EST, Route to Pharmacy Electronically, [facility], Partial fill upon pa... Start Date: 11/27/22 Stop Date: 11/30/22 Status: Ordered risperiDONE 2 mg oral tablet [...] Team Personnel Name: Michelle Fox RN Position: [facility] RN Member Role: Primary Care Nurse Name: Nyasia Cadet NP Position: [facility] Associate Professional Member Role: Primary Care Nurse Address: Address: [address] [place] [id number] Name: Roni Hunt RN Position: [facility] RN Member Role: Primary Care Nurse Name: Roya Jaramillo RN Position: [facility] RN Member Role: Primary Care Nurse Name: Steve Rose RN Position: [facility] RN Member Role: Primary Care Nurse Name: Tamika Mcguire RN Position: [facility] AMB Nurse Member Role: Primary Care Nurse Name: Gomez Daugherty RN Position: [facility] RN Member Role: Primary Care Nurse Name: Paolo Patterson RN Position: [facility] RN Member Role: Primary Care Nurse Name: Clarisa Mederso RN Position: [facility] RN Member Role: Primary Care Nurse Name: Loreta Pitts RN Position: [facility] RN Member Role: Primary Care Nurse Name: Tom White MD Position: Reference Physician Member Role: PCP Address: Address: [address] [place] [address] [place] [address]- [place] Name: Philomena Benavides RN Position: [facility] RN Member Role: Primary Care Nurse Name: Cortney Benavides RN Position: [facility] RN Member Role: Primary Care Nurse Name: Stefany Lewis RN Position: [facility] ED RN W/OE and Tasks Member Role: Primary Care Nurse Name: Adia Cuevas RN Position: [facility] RN Member Role: Primary Care Nurse Name: Stefany Hamilton RN Position: [facility] Full Stack Developer Member Role: Primary Care Nurse Name: Dee Davila RN Position: [facility] RN Member Role: Primary Care Nurse Name: Natalie Lopez RN Position: [facility] RN Member Role: Primary Care Nurse Name: Juan Diego Anguiano RN Position: [facility] RN Member Role: Primary Care Nurse Address: Address: [address] [place] [address]- [place] Name: Iwona Jones RN Position: [facility] RN Member Role: Primary Care Nurse Name: Angelika Villa RN Position: [facility] RN Member Role: Primary Care Nurse Name: Brandi Holman RN Position: [facility] RN Member Role: Primary Care Nurse Name: Candi Moore RN Position: [facility] SN RN Member Role: Primary Care Nurse Name: Stacy Yadav RN Position: [facility] Full Stack Developer Member Role: Primary Care Nurse Name: Kenney Hodge RN Position: [facility] SN RN Member Role: Primary Care Nurse Name: Lexis Byers Position: [facility] RN Member Role: Primary Care Nurse Care Team Related Persons Name: ADIA HARRELLBASSAM Address: home [address] [place] [address] Name: RAMÓN CARTAGENA Address: [place] [address] Name: CARMELLALING LINK Address: home [address] [place] [address]
--- OUTSIDE RECORDS SUMMARY | 2023-10-13 11:44 | XMS_ITS | Continuity of Care Document ---
Author Name Unknown Organization [facility] Address [address] [place], [place] [address]julio shin, [address] [place] [address]- Care Team Providers Care Control Room Agent Name Role Phone Christopher RIDDLE, Tom Choudhury Primary Care Physician Encounter [facility] Date(s): 12/13/22 - 01/12/23 [facility] [address] [place] [address] Drive, [address] [place] [address]- Allergies, Adverse Reactions, Alerts Substance Reaction Severity [...] 08/26/22 Recorded pneumococcal 23-valent vaccine 04/10/17 Given [id number] 12y+ bivalent booster vax 2 08/26/22 Recorded SARS-CoV-2 (COVID-19) mRNA BNT-162b2 vac 10/19/21 Recorded SARS-CoV-2 (COVID-19) mRNA BNT-162b2 vac 04/07/21 Recorded SARS-CoV-2 (COVID-19) mRNA BNT-162b2 vac 03/17/21 Recorded influenza virus vaccine, inactivated 08/12/21 Gentry rded Not Given Vaccine Date Status Refusal Reason influenza virus vaccine, inactivated 08/23/20 Not Given Parent Or Guardian Refuses 1Result Comment: .5ML IM/LD Lot [id number] [facility] D Exp 08.16.2023 [facility] [phone] 2Result Comment: .3Ml IM/ LD Lot [id number] Exp 10.01.2022 [facility] Pharm[facility] [phone] Medications acetaminophen 325 mg oral tablet 975 mg, By Mouth, Every 6 hours, for 10 days, # 120 tablet, Refills 0, Tot. Refills 0, Acute 01/17/23 16:25:00 EST, 01/07/23 16:25:00 EST, Route to Pharmacy Electronically, [facility], Partial fill upon patient request if the prescriptio... Start Date: 01/07/23 Stop Date: 01/17/23 Status: Ordered budesonide 3 mg oral delayed release capsule See Instructions, TAKE 3 TABLETS DAILY X3 WEEKS THEN 2 TABS DAILY X3 WEEKS THEN 1 TAB DAILY X2 WEEKS THEN STOP, # 77 capsule, 2 Refills, Maintenance, 12/24/22 8:57:00 EST, [facility] STORE [id number], 175, cm, 12/22/22 3:33:00 EST, Height, 163.5, kg, 12/17/22 13:... Start Date: 12/24/22 Status: Ordered busPIRone 7.5 mg oral tablet 1 tablet = 7.5 mg, By Mouth, 2 times a day Start Date: 11/25/22 Status: Ordered dicyclomine 20 mg oral tablet 1 tablet, By Mouth, 3 times a day, # 90 tablet, 0 Refills, Maintenance, 12/09/22 14:29:00 EST, [facility]/pharmacy #1234, 175, cm, 11/27/22 15:01:00 EST, Height, 163.5, kg, 11/24/22 14:49:00 EST, Dry Weight Start Date: 12/09/22 Status: Ordered docusate sodium 100 mg oral capsule 100 mg, 1, capsule, By Mouth, 2 times a day, # 20 capsule, Refills 0, Tot. Refills 0, Maintenance, 01/07/23 16:27:00 EST, Route to Pharmacy Electronically, [facility], Partial fill uponpatient request [...] 11/27/22 13:43:00 EST, Route to Pharmacy Electronically, [facility], Partial fill upon patient request if the prescription is for a schedule II opioi... Start Date: 11/27/22 Status: Ordered loperamide 2 mg oral capsule 1, capsule, By Mouth, Every 4 hours, PRN, # 60 capsule, Refills 0, Tot. Refills 0, Maintenance, NEEDED FOR LOOSE STOOLS, 12/09/22 14:29:00 EST, Route to Pharmacy Electronically, [facility]/pharmacy #[id number], 175, cm, 11/27/22 15:01:00 EST, Height, 163.5, kg,... Start Date: 12/09/22 Status: Ordered LORazepam 2 mg oral tablet 1 tablet = 2 mg, By Mouth, Daily at bedtime, for 30 days, MassPat checked, # 30 tablet, 5 Refills, Acute 03/24/23 18:15:00 EDT, 09/25/22 18:15:00 EST, [facility]/pharmacy #1234, 175, cm, 09/15/22 17:17:00 EDT, Height, [...] tablet, 1 Refills, Maintenance, 08/26/22 8:54:00 EDT, [facility]/pharmacy #1234, 173, cm, 05/06/22 13:26:00 EDT, Height, 146, kg, 05/06/22 13:26:00 EDT,... Start Date: 08/26/22 Status: Ordered ondansetron 4 mg oral tablet 1 tablet = 4 mg, By Mouth, Every 8 hours, PRN Nausea & Vomiting, # 15 tablet, 0 Refills, Maintenance, 01/07/23 16:25:00 EST, Tablet, [facility], Partial fill upon patient request ifthe prescription is for a schedule II opioid drug., 173... Start Date: 01/07/23 Stop Date: 01/12/23 Status: Ordered oxyCODONE 5 mg oral tablet 5 mg, 1, tablet, By Mouth, Every 6 hours, PRN, for 7 days, # 28 tablet, Refills 0, Tot. Refills 0, Acute 01/14/23 16:27:00 EST, Pain , Moderate, 01/07/23 16:27:00 EST, Route to Pharmacy Electronically, [facility], Partial fill upon patie... Start Date: 01/07/23 Stop Date: 01/14/23 Status: Ordered risperiDONE 2 mg oral tablet 2 mg, 1, tablet, By Mouth, Daily at bedtime Start Date: 11/25/22 Status: Ordered Vimpat 150 mg oral tablet 1 tablet = 150 mg, By Mouth, 2 times a day, MassPat checked., # 60 tablet, 5 Refills, Maintenance, 09/23/22 14:32:00 EST, Tablet, [facility]/pharmacy #1234, 175, cm, 09/15/22 17:17:00 EDT, Height, [...] Team Personnel Name: Michelle Fox RN Position: [facility] RN Member Role: Primary Care Nurse Name: Nyasia Cadet NP Position: [facility] Associate Professional Member Role: Primary Care Nurse Address: Address: [address] [place] [address]- Name: Roni Hnut RN Position: [facility] RN Member Role: Primary Care Nurse Name: Roya Jaramillo RN Position: [facility] RN Member Role: Primary Care Nurse Name: Steve Rose RN Position: [facility] RN Member Role: Primary Care Nurse Name: Tamika Mcguire RN Position: [facility] AMB Nurse Member Role: Primary Care Nurse Name: Gomez Daugherty RN Position: [facility] RN Member Role: Primary Care Nurse Name: Paolo Patterson RN Position: [facility] RN Member Role: Primary Care Nurse Name: Clarisa Mederos RN Position: [facility] RN Member Role: Primary Care Nurse Name: Loreta Pitts RN Position: [facility] RN Member Role: Primary Care Nurse Name: Tom White MD Position: Reference Physician Member Role: PCP Address: Address: [address] [place] [address] [place] [address]- Name: Philomena Benavides RN Position: [facility] RN Member Role: Primary Care Nurse Name: Cortney Benavides RN Position: [facility] RN Member Role: Primary Care Nurse Name: Stefany Lewis RN Position: [facility] ED RN W/OE and Tasks Member Role: Primary Care Nurse Name: Chiquita Cuevas RN Position: [facility] RN Member Role: Primary Care Nurse Name: Stefany Hamilton RN Position: [facility] [employer] Review Nurse Member Role: Primary Care Nurse Name: Dee Davila RN Position: [facility] RN Member Role: Primary Care Nurse Name: Natalie Lopez RN Position: [facility] RN Member Role: Primary Care Nurse Name: Juan Diego Anguiano RN Position: [facility] RN Member Role: Primary Care Nurse Address: Address: [address] [place] [id number] Name: Iwona Jones RN Position: [facility] RN Member Role: Primary Care Nurse Name: Angelika Villa RN Position: [facility] RN Member Role: Primary Care Nurse Name: Brandi Holman RN Position: [facility] RN Member Role: Primary Care Nurse Name: Candi Moore RN Position: [facility] SN RN Member Role: Primary Care Nurse Name: Stacy Yadav RN Position: [facility] [employer] Review Nurse Member Role: Primary Care Nurse Name: Naveen CORNELL Hteekareginald Position: [facility] SN RN Member Role: Primary Care Nurse Name: Lexis Byers Position: [facility] RN Member Role: Primary Care Nurse Care Team Related Persons Name: XIOMARA HARRELLLUANN Address: home [address] [place] [address] Name: RAMÓN CARTAGENA Address: [place] [address] Name: LING WEIR Address: home [address] [place] [address]
--- OUTSIDE RECORDS SUMMARY | 2023-10-13 11:44 | XMS_ITS | Continuity of Care Document ---
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 Name Role Phone Christopher RIDDLE, Tom Choudhury Primary Care Physician Encounter [facility] [place] [facility] [place] [id number] Date(s): 01/07/23 - 01/07/[address] [address]- Discharge Disposition: A-D/C Home Attending Physician: Ronnie Boyle MD Admitting Physician: Ronnie Boyle MD Referring Physician: Ronnie Boyle MD Allergies, Adverse Reactions, [...] 08/26/22 Recorded pneumococcal 23-valent vaccine 04/10/17 Given [id number] 12y+ bivalent booster vax 2 08/26/22 Recorded SARS-CoV-2 (COVID-19) mRNA BNT-162b2 vac 10/19/21 Recorded SARS-CoV-2 (COVID-19) mRNA BNT-162b2 vac 04/07/21 Recorded SARS-CoV-2 (COVID-19) mRNA BNT-162b2 vac 03/17/21 Recorded influenza virus vaccine, inactivated 08/12/21 Gentry rded Not Given Vaccine Date Status Refusal Reason influenza virus vaccine, inactivated 08/23/20 Not Given Parent Or Guardian Refuses 1Result Comment: .5ML IM/LD Lot [id number] [employer] D Exp 9.30.2023 [facility] [phone] 2Result Comment: .3Ml IM/ LD Lot [id number] Exp 10.01.2022 [facility] [phone] Medications acetaminophen 325 mg oral tablet 975 mg, By Mouth, Every 6 hours, for 10 days, # 120 tablet, Refills 0, Tot. Refills 0, Acute 01/17/23 16:25:00 EST, 01/07/23 16:25:00 EST, Route to [facility] Electronically[facility] fill upon patient request if the prescriptio... Start Date: 01/07/23 Stop Date: 01/17/23 Status: Ordered budesonide 3 mg oral delayed release capsule See Instructions, TAKE 3 TABLETS DAILY X3 WEEKS THEN 2 TABS DAILY X3 WEEKS THEN 1 TAB DAILY X2 WEEKS THEN STOP, # 77 capsule, 2 Refills, Maintenance, 12/24/22 8:57:00 EST, [facility] STORE [id number], 175, cm, 12/22/22 3:33:00 EST, Height, 163.5, kg, 12/17/22 13:... Start Date: 12/24/22 Status: Ordered busPIRone 7.5 mg oral tablet 1 tablet = 7.5 mg, By Mouth, 2 times a day Start Date: 11/25/22 Status: Ordered dicyclomine 20 mg oral tablet 1 tablet, By Mouth, 3 times a day, # 90 tablet, 0 Refills, Maintenance, 12/09/22 14:29:00 EST, [facility]/pharmacy #1234, 175, cm, 11/27/22 15:01:00 EST, Height, 163.5, kg, 11/24/22 14:49:00 EST, Dry Weight Start Date: 12/09/22 Status: Ordered docusate sodium 100 mg oral capsule 100 mg, 1, capsule, By Mouth, 2 times a day, # 20 capsule, Refills 0, Tot. Refills 0, Maintenance, 01/07/23 16:27:00 EST, Route to Pharmacy Electronically, [facility], Partial fill uponpatient request if the prescription is for a schedu... Start Date: 01/07/23 Stop Date: 01/17/23 Status: Ordered escitalopram 10 mg oral tablet 1 tablet = 10 mg, By Mouth, Daily in AM, Maintenance, 11/25/22 17:21:00 EST, Tablet, Partial fill upon patient request if the prescription is for a schedule II opioid drug. Start Date: 11/25/22 Status: Ordered Fentanyl Inj (PACU ONLY) 25 mcg, Injection, IV Push Slowly, Every 5 minutes for 8 doses/times, in PACU ONLY, PRN for Pain , Moderate, Routine, 01/07/23 15:53:00 EST, Stop date Limited # of times Start Date: 01/07/23 Status: Ordered Flexeril 10 mg oral tablet [...] 11/27/22 13:43:00 EST, Route to Pharmacy Electronically, [facility], Partial fill upon patient request if the prescription is for a schedule II opioi... Start Date: 11/27/22 Status: Ordered loperamide 2 mg oral capsule 1, capsule, By Mouth, Every 4 hours, PRN, # 60 capsule, Refills 0, Tot. Refills 0, Maintenance, NEEDED FOR LOOSE STOOLS, 12/09/22 14:29:00 EST, Route to Pharmacy Electronically, [facility]/pharmacy #[id number], 175, cm, 11/27/22 15:01:00 EST, Height, 163.5, kg,... Start Date: 12/09/22 Status: Ordered LORazepam 2 mg oral tablet 1 tablet = 2 mg, By Mouth, Daily at bedtime, for 30 days, MassPat checked, # 30 tablet, 5 Refills, Acute 03/24/23 18:15:00 EDT, 09/25/22 18:15:00 EST, [facility]/pharmacy #1234, 175, cm, 09/15/22 17:17:00 [...] tablet, 1 Refills, Maintenance, 08/26/22 8:54:00 EDT, [facility]/pharmacy #1234, 173, cm, 05/06/22 13:26:00 EDT, Height, 146, kg, 05/06/22 13:26:00 EDT,... Start Date: 08/26/22 Status: Ordered ondansetron 4 mg oral tablet 1 tablet = 4 mg, By Mouth, Every 8 hours, PRN Nausea & Vomiting, # 15 tablet, 0 Refills, Maintenance, 01/07/23 16:25:00 EST, Tablet, [facility], Partial fill upon patient request ifthe [...] 01/07/23 16:27:00 EST, Route to Pharmacy Electronically, [facility], Partial fill upon patie... Start Date: 01/07/23 Stop Date: 01/14/23 Status: Ordered risperiDONE 2 mg oral tablet 2 mg, 1, tablet, By Mouth, Daily at bedtime Start Date: 11/25/22 Status: Ordered Vimpat 150 mg oral tablet 1 tablet = 150 mg, By Mouth, 2 times a day, MassPat checked., # 60 tablet, 5 Refills, Maintenance, 09/23/22 14:32:00 EST, Tablet, [facility]/pharmacy #1234, 175, cm, 09/15/22 17:17:00 [...] to oldest [Reference Range]: 1 2 3 Weight 156.1 kg (01/07/23 1:11 PM) Oxygen Saturation [94-100 %] 97 % (01/07/23 4:30 PM) 95 % (01/07/23 4:15 PM) 98 % (01/07/23 4:00 PM) Pulse Rate [55-90 bpm] 108 bpm *H* (01/07/23 1:11 PM) Blood Pressure [90-138/55-84 mm Hg] 142/94mm Hg *H* (01/07/23 4:30 PM) 148/86mm Hg *H* (01/07/23 4:15 PM) 132/82mm Hg (01/07/23 4:00 PM) Respiratory Rate [16-30 br/min] 37 br/min *H* (01/07/23 4:30 PM) 15 br/min *L* (01/07/23 4:15 PM) 16 br/min (01/07/23 4:01 PM) Temperature [96.8-100.4 DegF] 97.8 DegF (01/07/23 4:30 PM) 97.3 DegF (01/07/23 3:15 PM) 98.1 DegF (01/07/23 1:11 PM) Liters per Minute 6 L/min (01/07/23 3:15 PM) Mode of Delivery (Oxygen) Room air (01/07/23 4:30 PM) Room air (01/07/23 3:30 PM) Simple face mask (01/07/23 3:15 PM) Blood pressure sites Arm, left (01/07/23 4:30 PM) Arm, left (01/07/23 3:45 PM) Arm, left (01/07/23 3:15 PM) Temperature Route Temporal (01/07/23 4:30 PM) Temporal (01/07/23 3:15 PM) Temporal (01/07/23 1:11 PM) Weight Obtained Via Standing scale (01/07/23 1:11 PM) Social History Social History Type Response Smoking Status Former smoker, quit more than 30 days ago; Interested in cessation: Yes; Patient wants NRT during admission Yes; Type: Cigarettes; Total pack years: 8; Started at age: 18; entered on: 05/06/22 Sex Note * Nyasia Madden: PERFORM Event Display: Discharge/Transfer Note Hospital Authored Date: Nursing Discharge Note Entered On: 01/07/2023 17:13 EST Performed On: 01/07/2023 17:11 EST by Nyasia Madden Nursing Discharge Note 2 Discharge Time : 01/07/2023 16:45 EST Discharge Level of Care at Discharge : Home/Chcf/Foster Care Patient Left Unit Via : Wheelchair Patient Accompanied Off Unit with : Significant other DC Instructions Provided & Signed by Pt : Yes Patient Understands D/C Instructions : Yes Patient Instructions Discharge Signed : Yes Did Pt have Specialty Bed or Wound Vac : No Nyasia Mdaden - 01/07/2023 17:11 EST * Ronnie Boyle MD: SIGN Ronnie Boyle MD: SIGN, SIGN, VERIFY Event Display: Discharge/Transfer Note Hospital Authored Date: [id number] Patient: KIRILL WEIR Age: 37 years Sex: Female : 1985 Associated Diagnoses: None Author: Monse Tolentino Discharge Information Preoperative Diagnosis: LT VNS battery single lead, after intra-op interrogation a new discovery of high lead impedance was discovered Final Postoperative Diagnosis: LT VNS battery single lead, after intra- op interrogation a new discovery of high lead impedance was discovered Operation: replaced single lead battery with a new SENTIVA single lead battery; stored in pocket in-await for new VNS implant Patient is aware of diagnosis Discharge condition: good Functional Status: ambulatory Discharge Disposition Home: self care, family. Discharge Date 01/07/2023 Admission Date 01/07/2023 Hospital Course Ms. Weir is a 37 year old female with a PMHx significant for epilepsy s/p vagal nerve stimulator placement who was found to have an battery and underwent an elective VNS battery replacement on 01/07/[address] Boyle. Intra-operative interrogation revealed a new high lead impedance and surgery was otherwise unremarkable. The patient recovered in the PACU without complications. She is POD #1 and was educated regarding the new high lead impedance found on intra-operative interrogation, which results in a nonfunctioning system. She understands that she will need another surgery to replace the vagal nerve stimulator system. She has incisional pain and otherwise denies any additional chest pain, abdominal pain, weakness, fevers, or paresthesias. She is tolerating an oral diet, ambulating and voiding freely. Scripts for Tylenol, Colace, Zofran and oxycodone have been sent to [facility] electronically. Post op recovery and wound care were discussed, all questions answered. Temperature 97.3 (15:58) Systolic Blood Pressure 142 (16:28) Diastolic Blood Pressure 94 (16:28) Pulse 108 (16:28) SpO2 97 (16:28) Respiratory Rate 37 (16:28) General: Appears stated age, awake, alert and NAD HEENT: Normocephalic, trachea midline Respiratory: Breathing is even and nonlabored Extremities:?? Symmetric, no edema, no calf tenderness. Skin: no obvious rashes Neurologic: left anterior chest incision is covered with a clean, dry and intact bandage. No drainage or edema. Mental status: awake, alert oriented to location, date and self Speech is clear, fluent, and appropriate, follows simple and complex commands CN: no facial weakness hearing intact to voice Motor: normal bulk and tone Upper Extremities- Deltoid:? 5/5 right? 5/5 left Biceps:? 5/5 right? 5/5 left Triceps:? 5/5 right? 5/5 left Hand organizational effectiveness consultant:? 5/5 right? 5/5 left Lower Extremities- Hip Flexion:? 5/5 right? 5/5 left Knee Extension:? 5/5 right? 5/5 left Plantar flexion:?? 55 right? 5/5 left Dorsiflexion:? 5/5 right? 5/5 left EHL:? 5/5 right? 5/5 left Sensation: intact to light touch throughout upper and lower extremities no saddle anesthesia Discharge Plan Diet/Activity/Patient Education/Follow Up Follow Up with: Tom White; Ronnie Boyle 01/22/2023 10:30 AM. Discharge Disposition Discharge: home. MEDICATION LIST (Selected) Prescriptions Prescribed LORazepam 2 mg oral tablet: 1 tablet = 2 mg, By Mouth, Daily at bedtime, for 30 days, MassPat checked, # 30 tablet, 5 Refills, Acute 03/24/23 18:15:00 EDT, 09/25/22 18:15:00 EST, [facility], 175, cm, 09/15/22 17:17:00 EDT, Height, 160.2, kg, 09/15/22 17:17:00 EDT, Dry We... Vimpat 150 mg oral tablet: 1 tablet = 150 mg, By Mouth, 2 times a day, MassPat checked., # 60 tablet, 5 Refills, Maintenance, 09/23/22 14:32:00 EST, Tablet, [facility]/pharmacy #1234, 175, cm, 09/15/22 17:17:00 EDT, Height, 160.2, kg, 09/15/22 17:17:00 EDT, Dry Weight acetaminophen 325 mg oral tablet: 975 mg, By Mouth, Every 6 hours, for 10 days, # 120 tablet, Refills 0, Tot. Refills 0, Acute 01/17/23 16:25:00 EST, 01/07/23 16:25:00 EST, Route to Pharmacy Electronically, [facility], Partial fill upon patient request if the prescriptio... budesonide 3 mg oral delayed release capsule: See Instructions, TAKE 3 TABLETS DAILY X3 WEEKS THEN 2 TABS DAILY X3 WEEKS THEN 1 TAB DAILY X2 WEEKS THEN STOP, # 77 capsule, 2 Refills, Maintenance, 12/24/22 8:57:00 EST, [facility] STORE [id number], 175, cm, 12/22/22 3:33:00 EST, Height, 163.5, kg, 12/17/22 13:... dicyclomine 20 mg oral tablet: 1 tablet, By Mouth, 3 times a day, # 90 tablet, 0 Refills, Maintenance, 12/09/22 14:29:00 EST, [facility]/pharmacy #1234, 175, cm, 11/27/22 15:01:00 EST, Height, 163.5, kg, 11/24/22 14:49:00 EST, Dry Weight docusate sodium 100 mg oral capsule: 100 mg, 1, capsule, By Mouth, 2 times a day, # 20 capsule, Refills 0, Tot. Refills 0, Maintenance, 01/07/23 16:27:00 EST, Route to Pharmacy Electronically, [facility], Partial fill upon patient request if the prescription is for a schedu... lisinopril 20 mg oral tablet: 20 mg, 1, tablet, By Mouth, Daily, # 30 tablet, Refills 0, Tot. Refills 0, Maintenance, 11/27/22 13:43:00 EST, Route to Pharmacy Electronically, [facility], Partial fill upon patient request if the prescription is for a schedule II opioi... loperamide 2 mg oral capsule: 1, capsule, By Mouth, Every 4 hours, PRN, # 60 capsule, Refills 0, Tot. Refills 0, Maintenance, NEEDED FOR LOOSE STOOLS, 12/09/22 14:29:00 EST, [facility], cm, 11/27/22 15:01:00 EST, Height, 163.5, kg,... naratriptan 1 mg oral tablet: See Instructions, TAKE 1 TABLET BY MOUTH AT ONSET OF HEADACHE, MAY REPEAT ONCE IN 4 HOURS IF NEEDED, # 9 tablet, 1 Refills, Maintenance, 08/26/22 8:54:00 EDT, [facility]/pharmacy #1234, 173, cm, 05/06/22 13:26:00 EDT, Height, 146, kg, 05/06/22 13:26:00 EDT,... ondansetron 4 mg oral tablet: 1 tablet = 4 mg, By Mouth, Every 8 hours, PRN Nausea & Vomiting, # 15 tablet, 0 Refills, Maintenance, 01/07/23 16:25:00 EST, Tablet, [facility], Partial fill upon patient request if the prescription is for a schedule II opioid drug., 173... oxyCODONE 5 mg oral tablet: 5 mg, 1, tablet, By Mouth, Every 6 hours, PRN, for 7 days, # 28 tablet,Refills 0, Tot. Refills 0, Acute 01/14/23 16:27:00 EST, Pain , Moderate, 01/07/23 16:27:00 EST, Route to Pharmacy Electronically, [facility], Partial fill upon patie... Documented Medications Documented Flexeril 10 mg oral tablet: 1, tablet, By Mouth, 3 times a day, PRN, Refills 0, Maintenance, for spasm, 04/04/22 22:32:00 EDT, Partial fill upon patient request if the prescription is for a schedule II opioid drug. Lantus 100 u/ml subcutaneous solution: = 30 units, Sublingual, Daily at bedtime, 0 Refills, Maintenance, 07/07/21 1:40:00 EDT, Solution, Partial fill upon patient request if the prescription is for aschedule II opioid drug. Melatonin 3 mg oral tablet: 1-2 tablet, By Mouth, Daily at bedtime Vitamin B12 1000 mcg oral tablet: 1 tablet = 1,000 mcg, By Mouth, Daily, Maintenance, 11/25/22 17:15:00 EST, Tablet, Partial fill upon patient request if the prescription is for a schedule II opioid drug. Vitamin D3 2000 intl units oral capsule: 1 capsule = 50 mcg, By Mouth, Daily, 0 Refills, Maintenance, 08/19/21 17:16:00 EDT, Capsule, Partial fill upon patient request if the prescription is for a schedule II opioid drug. busPIRone 7.5 mg oral tablet: 1 tablet = 7.5 mg, By Mouth, 2 times a day escitalopram 10 mg oral tablet: 1 tablet = 10 mg, By Mouth, Daily in AM, Maintenance, 11/25/22 17:21:00 EST, Tablet, Partial fill upon patient request if the prescription is for a schedule II opioid drug. risperiDONE 2 mg oral tablet: 2 mg, 1, tablet, By Mouth, Daily at bedtime * Nyasia Madden: PERFORM, MODIFY Event Display: Patient Education/Instruction Authored Date: [id number] Inpatient Adult Discharge Instructions [address] [address] Name: KIRILL WEIR : 1985 Visit: 01/07/2023 12:31:00 Current Date: 01/07/2023 16:41 Account: [id number] Inpatient Adult Discharge Instructions We would like [...] and their families. Surveys are administered by [employer] ?? If further treatment with your primary care physician or another doctor is recommended, it is important for you to keep the appointment. Call your primary care physician or return to the Emergency Department immediately if your condition worsens, fails to improve, or new symptoms develop. If you need to find a doctor, you can call [facility] [employer] for a referral at [phone] or toll free at [phone] or log in to [email or web address].. ?? You can view and manage your care through the patient portal or by using a health care erlinda of your choosing. [employer] is a website that allows you to securely view your medical information including your hospital discharge summary, office visit summaries, medications and follow-up visits. You can also request appointments, renew medications, and request access to your medical information using a health care erlinda of your choosing, or just ask a question. You can enroll at [email or web address] or register during your next office visit. You have been discharged from [facility], Patient Care Unit: [facility]. If you have any questions regarding these instructions after you leave, please call us and we will be happy to assist you. [facility] Your Care Team Discharging Providers Monse Tolentino Reason for Admission BATTERY CHNG VGLNRV BATTERY DST COLE Tests Performed Below is a partial list of the tests performed during your hospitalization. You may have had other tests and procedures not included in this list. Please discuss all test results with your provider. GLUCOSE POC Primary Care Provider Tom White MD Advance Directive Health Care Proxy on File Yes - Health Care Proxy Discharge Vitals Temperature: 97.3 DegF Weight: 156.1 kg Pulse Rate:??108 bpm??High ?? Respiratory Rate:??37 br/min??High ?? Systolic Blood Pressure:??142 mm Hg??High ?? Diastolic Blood Pressure:??94 mm Hg??High ?? Oxygen Saturation: 97 % ?? Studies Pending All tests and labs ordered during this hospital stay have been completed unless listed below. Please discuss all pending results with your provider listed above in these instructions. ?? No incomplete studies found What to do next Instructions From Your Doctor Discharge Orders Scheduled Follow-Up Appointments Friday 10:30 AM EST ?? With: [place] RIDDLE, Ronnie Redman Where: [facility] [address] [place] [address] [place] [address] 2022 3:30 PM EST ?? With: Where: [facility] [place] Friday 11:00 AM EDT ?? With: Mary Morales NP Where: [facility] Plastic Surgery [address] [place] [address]- Friday 11:00 AM EDT ?? With: Mary Morales NP Where: [facility] Plastic Surgery [address] [place] [address]- You Need to Schedule the Following Appointments Follow Up with??Ronnie Boyle When??01/22/2023 10:30 AM EST Where: [address] [place] [address], [address] [place] [address]- Business (1) Follow Up with??Tom White When??In 0 days Where: [address] [place] [address]- Business (1) Discharge Medications KIRILL WEIR :1985 Visit Date:01/07/2023 Medications: Please continue your medications until treatment is completed or stopped by your provider. Medications not listed below should be discontinued. Discuss any questions related to medications with your provider. What How Much When Instructions Next Dose New Acetaminophen (acetaminophen 325 mg oral tablet) 975 Milligram Oral Every 6 hours Duration: 10 Days Pickup at [facility] 3 may take as needed not given in pacu New Docusate (docusate sodium 100 mg oral capsule) 1 capsule Oral Twice a day Duration: 10 Days Pickup at [place] [address] take with oxy New Oxycodone (oxyCODONE 5 mg oral tablet) 1 tab(s) Oral Every 6 hours as needed for Pain , Moderate Duration: 7 Days Pickup at [place] [address] may take as needed after 2144 Changed Ondansetron (ondansetron 4 mg oral tablet) 1 tab(s) Oral Every 8 hours as needed for Nausea & Vomiting Duration: 5 Days Pickup at [facility] 3 may take as needed for nausea Unchanged Budesonide (budesonide 3 mg oral delayed release capsule) See instructions TAKE 3 TABLETS DAILY X3 WEEKS THEN 2 TABS DAILY X3 WEEKS THEN 1 TAB DAILY X2 WEEKS THEN STOP ?? Unchanged BusPIRone (busPIRone 7.5 mg oral tablet) 1 tab(s) Oral Twice a day Unchanged Cholecalciferol (Vitamin D3 2000 intl units oral capsule) 1 capsule Oral Daily Unchanged Cyanocobalamin (Vitamin B12 1000 mcg oral tablet) 1 tab(s) Oral Daily Unchanged Cyclobenzaprine (Flexeril 10 mg oral tablet) 1 tab(s) Oral 3 times a day as needed for for spasm Unchanged Dicyclomine (dicyclomine 20 mg oral tablet) 1 tab(s) Oral 3 times a day Unchanged Escitalopram (escitalopram 10 mg oral tablet) 1 tab(s) Oral Daily in the morning Unchanged Insulin Glargine (Lantus 100 u/ ml subcutaneous solution) 30 unit(s) Sublingual Daily at Bedtime Unchanged Lacosamide (Vimpat 150 mg oral tablet) 1 tab(s) Oral Twice a day Duration: 30 Days MassPat checked. ?? Unchanged Lisinopril (lisinopril 20 mg oral tablet) 1 tab(s) Oral Daily Unchanged Loperamide (loperamide 2 mg oral capsule) 1 capsule Oral Every 4 hours as needed for NEEDED FOR LOOSE STOOLS Unchanged Lorazepam (LORazepam 2 mg oral tablet) 1 tab(s) Oral Daily at Bedtime Duration: 30 Days MassPat checked ?? Unchanged Melatonin (Melatonin 3 mg oral tablet) 1-2 tablet Oral Daily at Bedtime do not take tonight Unchanged Naratriptan (naratriptan 1 mg oral tablet) See instructions TAKE 1 TABLET BY MOUTH AT ONSET OF HEADACHE, MAY REPEAT ONCE IN 4 HOURS IF NEEDED ?? Unchanged Risperidone (risperiDONE 2 mg oral tablet) 1 tab(s) Oral Daily at Bedtime Pharmacy Information [facility] 3: [address], [place] [id number] [phone] ?? What How Much When Comments Stop Taking Ibuprofen (ibuprofen 600 mg oral tablet) 1 tab(s) Oral Every 8 hours as needed for as needed for pain Test Results Below is a partial list of the most recent Laboratory test results done prior to this discharge. You may have had other tests and procedures not included in this list. Please discuss all test resultswith your provider. GLUCOSE POC (01/07/2023) ???Glucose, POC - 106 mg/dL Allergies (NKA means No Known Allergies) [...] Belongings I fully understand and agree that [facility] accepts no responsibility for all my [...] of Valuable and Belonging List: With patient Disposition of Belongings: Other: PACU Date for Pt to Sign Valuables/Belongings: 01/07/23 13:11:00 ?? Valuables & Belongings ?? Clothes Electronic devices Jewelry Monetary Items Personal devices Miscellaneous Medications (Valuables) Valuables at Bedside Jacket, Pants, Shirt, Shoes, Undergarments Cell phone ?? Wallet ? Valuables Sent Home ? Valuables Sent to Security ? Other Discharge Information ? Pulmonary Rehab Status?? Pulmonary Rehab Discharge Status?? Respiratory Rate:??37 br/min??High ? Common Emergency Awareness Tips IS IT [...] are strongly encouraged to quit. Please call [facility] [employer] at [phone] or [phone]) or log in to [email or web address] for referrals to smoking cessation programs. ?? The National Suicide Prevention Hotline is available 09/06 if you or someone you know needs to find a reason to keep living. By calling 2-213-992-Sensum (3263) you'll be connected to a skilled, trained counselor at a crisis center in your area. INPATIENT DISCHARGE INSTRUCTIONS SIGNATURE PAGE KIRILL WEIR Location:[facility] Registration Date and Time:01/07/2023 12:31 EST Primary Care Physician: Christopher RIDDLE, Tom Choudhury, I KIRILL WEIR, have received the above patient education materials/instructions and have verbalized understanding. If ambulance or transport services are being used I further acknowledge being given a choice of service. ?? If you need to contact me, please call me at this number: . Patient/Staff Occupational Therapist Name: Patient/Staff Occupational Therapist Signature: Relationship to Patient: Witness Name/Signature: Date: * Monse Tolentino R: PERFORM, SIGN, VERIFY Event Display: Patient Education Handout Authored Date: [id number] * Nyasia Madden: PERFORM Event Display: Patient Education Leaflets Authored Date: [id number] Surgery Medical Daystay Surgical Overnight Discharge Instructions [...] Name: Michelle Fox RN Position: [facility] RN Member Role: Primary Care Nurse Name: Nyasia Cadet NP Position: [facility] [facility] Associate Professional Member Role: Primary Care Nurse Address: Address: [address] [place] [address]- Name: Roni Hunt RN Position: [facility] RN Member Role: Primary Care Nurse Name: Roya Jaramillo RN Position: [facility] RN Member Role: Primary Care Nurse Name: Steve Rose RN Position: [facility] RN Member Role: Primary Care Nurse Name: Tamika Mcguire RN Position: [facility] AMB Nurse Member Role: Primary Care Nurse Name: Gomez Daugherty RN Position: [facility] RN Member Role: Primary Care Nurse Name: Paolo Patterson RN Position: [facility] RN Member Role: Primary Care Nurse Name: Clarisa Mederos RN Position: [facility] RN Member Role: Primary Care Nurse Name: Loreta Pitts RN Position: [facility] RN Member Role: Primary Care Nurse Name: Tom White MD Position: Reference Physician Member Role: PCP Address: Address: [address] [place] [address] [place] [address]- Name: Philomena Benavides RN Position: [facility] RN Member Role: Primary Care Nurse Name: Cortney Benavides RN Position: [facility] RN Member Role: Primary Care Nurse Name: Stefany Lewis RN Position: [facility] ED RN W/OE and Tasks Member Role: Primary Care Nurse Name: Chiquita Cuevas RN Position: [facility] RN Member Role: Primary Care Nurse Name: Stefany Hamilton RN Position: [facility] Sounding Device Operator Member Role: Primary Care Nurse Name: Dee Davila RN Position: [facility] RN Member Role: Primary Care Nurse Name: Natalie Lopez RN Position: [facility] RN Member Role: Primary Care Nurse Name: Juan Diego Anguiano RN Position: [facility] RN Member Role: Primary Care Nurse Address: Address: [address] [place] [address]- Name: Iwona Jones RN Position: [facility] RN Member Role: Primary Care Nurse Name: Angelika Villa RN Position: [facility] RN Member Role: Primary Care Nurse Name: Brandi Holman RN Position: [facility] RN Member Role: Primary Care Nurse Name: Candi Moore RN Position: [facility] RN Member Role: Primary Care Nurse Name: Stacy Yadav RN Position: [facility] Sounding Device Operator Member Role: Primary Care Nurse Name: Kenney Hodge RN Position: [facility] SN RN Member Role: Primary Care Nurse Name: Lexis Byers Position: [facility] RN Member Role: Primary Care Nurse Care Team Related Persons Name: RAMÓN HARRELL Address: [address] [place] [address] Name: RAMÓN CARTAGENA Address: [place] [address] Name: LING WEIR Address: home [address] [place] [address]
--- OUTSIDE RECORDS SUMMARY | 2023-10-13 11:44 | XMS_ITS | Continuity of Care Document ---
Author Name Unknown Organization [facility] Kelly sherrie Address [address] [place] [address] [address] [place] [address]- Care Team Providers Care Annealing Furnace Operator Name Role Phone Christopher RIDDLE, Tom Choudhury Primary Care Physician Encounter [facility] [place] Date(s): 02/26/23 - 03/28/23 [facility] [address] [place] [address]- Allergies, Adverse Reactions, Alerts Substance Reaction Severity [...] 08/26/22 Recorded pneumococcal 23-valent vaccine 04/10/17 Given [id number] 12y+ bivalent booster vax 2 08/26/22 Recorded SARS-CoV-2 (COVID-19) mRNA BNT-162b2 vac 10/19/21 Recorded SARS-CoV-2 (COVID-19) mRNA BNT-162b2 vac 04/07/21 Recorded SARS-CoV-2 (COVID-19) mRNA BNT-162b2 vac 03/17/21 Recorded influenza virus vaccine, inactivated 08/12/21 Gentry rded Not Given Vaccine Date Status Refusal Reason influenza virus vaccine, inactivated 08/23/20 Not Given Parent Or Guardian Refuses 1Result Comment: .5ML IM/LD Lot [id number] [facility] D Exp 08.16.2023 [facility] [phone] 2Result Comment: .3Ml IM/ LD Lot [id number] Exp 10.01.2022 [facility] [phone] Medications budesonide 3 mg oral delayed release capsule See Instructions, TAKE 3 TABLETS DAILY X3 WEEKS THEN 2 TABS DAILY X3 WEEKS THEN 1 TAB DAILY X2 WEEKS THEN STOP, # 77 capsule, 2 Refills, Maintenance, 03/18/23 9:20:00 EDT, [facility] [id number], 173, cm, 03/12/23 12:51:00 EDT, Height, 161.8, [...] tablet, 0 Refills, Maintenance, 02/24/23 8:38:00 EDT, [facility] STORE [id number], 173, cm, 01/27/23 8:03:00 EDT, Height, 164.8, [...] 02/24/23 15:54:00 EDT, Route to Pharmacy Electronically, [facility] STORE [id number], 173, cm, 02/25/2312:35:00 EDT, Height, 164.8, kg, [...] tablet, 1 Refills, Maintenance, 08/26/22 8:54:00 EDT, [facility]/pharmacy #[id number], 173, cm, 05/06/22 13:26:00 EDT, [...] Confirmation Course Effective Dates Status Health St at Informant Depression Confirmed Active Intractable diarrhea Confirmed [...] Member Role: Primary Care Nurse Address: Address: [address] [place] [address]- Name: Roni Hunt RN Position: [facility] RN Member Role: Primary Care Nurse Name: Roya Jaramillo RN Position: [facility] RN Member Role: Primary Care Nurse Name: Tamika Mcguire RN Position: [facility] [place] Nurse Member Role: Primary Care Nurse Name: My Fonseca NP Position: [facility] Associate Professional Member Role: Lifetime Consulting Provider Address: Address: [address] [place], [place] [address] [place] [address]- Name: Gomez Daugherty RN Position: [facility] RN Member Role: Primary Care Nurse Name: Paolo Patterson RN Position: [facility] RN Member Role: Primary Care Nurse Name: Clarisa Mederos RN Position: [facility] RN Member Role: Primary Care Nurse Name: Loreta Pitts RN Position: [facility] RN Member Role: Primary Care Nurse Name: Tom White MD Position: Reference Physician Member Role: PCP Address: Address: [address] [place] [address] [place] [address]- Name: Philomena Benavides RN Position: [facility] RN Member Role: Primary Care Nurse Name: Cortney Benavides RN Position: [facility] RN Member Role: Primary Care Nurse Name: Gloria Mims RN Position: [facility] RN Member Role: Primary Care Nurse Name: Stefany Lewis RN Position: [facility] ED RN W/OE and Tasks Member Role: Primary Care Nurse Name: Adia Cuevas RN Position: [facility] RN Member Role: Primary Care Nurse Name: Stefany Hamilton RN Position: [facility] Golf Tournament Consultant Member Role: Primary Care Nurse Name: Dee Davila RN Position: [facility] RN Member Role: Primary Care Nurse Name: Natalie Lopez RN Position: [facility] RN Member Role: Primary Care Nurse Name: Juan Diego Anguiano RN Position: [facility] RN Member Role: Primary Care Nurse Address: Address: [address] [place] [id number]- Name: Iwona Jones RN Position: [facility] [...] Care Nurse Name: Stacy Yadav RN Position: [facility] Golf Tournament Consultant Member Role: Primary Care Nurse Name: Kenney Hodge RN Position: [facility] SN RN Member Role: Primary Care Nurse Name: Lexis Byers RN Position: [facility] RN Member Role: Primary Care Nurse Care Team Related Persons Name: ADIA HARRELLBASSAM Address: home [address] [place] [address] Name: RAMÓN CARTAGENA Address: [place] [address] Name: LING WEIR Address: [address] [place] [address]
--- OUTSIDE RECORDS SUMMARY | 2023-10-13 11:44 | XMS_ITS | Continuity of Care Document ---
Author Name Unknown Organization [facility] Address [address] [facility], [address] Floor, [address] [place] [address]- Care Team Providers Care Supply Chain Associate Name Role Phone Christopher RIDDLE, Tom Choudhury Primary Care Physician [place] [facility] [place] 01/25/23 [facility] [address], [address], [address] [place] [address]- Allergies, Adverse Reactions, Alerts Substance Reaction Severity [...] 08/26/22 Recorded pneumococcal 23-valent vaccine 04/10/17 Given [id number] 12y+ bivalent booster vax 2 08/26/22 Recorded SARS-CoV-2 (COVID-19) mRNA BNT-162b2 vac 10/19/21 Recorded SARS-CoV-2 (COVID-19) mRNA BNT-162b2 vac 04/07/21 Recorded SARS-CoV-2 (COVID-19) mRNA BNT-162b2 vac 03/17/21 Recorded influenza virus vaccine, inactivated 08/12/21 Gentry rded Not Given Vaccine Date Status Refusal Reason influenza virus vaccine, inactivated 08/23/20 Not Given Parent Or Guardian Refuses 1Result Comment: .5ML IM/LD Lot [id number] [facility] [employer] D Exp 08.16.2023 [facility] [phone] 2Result Comment: .3Ml IM/ LD Lot [id number] Exp 10.01.2022 [facility] [phone] Medications budesonide 3 mg oral delayed release capsule See Instructions, TAKE 3 TABLETS DAILY X3 WEEKS THEN 2 TABS DAILY X3 WEEKS THEN 1 TAB DAILY X2 WEEKS THEN STOP, # 77 capsule, 2 Refills, Maintenance, 12/24/22 8:57:00 EST, [facility] STORE [id number], 175, cm, 12/22/22 3:33:00 EST, Height, 163.5, kg, 12/17/22 13:... Start Date: 12/24/22 Status: Ordered busPIRone 7.5 mg oral tablet 1 tablet = 7.5 mg, By Mouth, 2 times a day Start Date: 11/25/22 Status: Ordered dicyclomine 20 mg oral tablet 1 tablet, By Mouth, 3 times a day, # 90 tablet, 0 Refills, Maintenance, 12/09/22 14:29:00 EST, [facility]/pharmacy #[id number], 175, cm, 11/27/22 15:01:00 EST, Height, 163.5, kg, 11/24/22 14:49:00 EST, Dry Weight Start Date: 12/09/22 Status: Ordered docusate sodium 100 mg oral capsule 100 mg, 1, capsule, By Mouth, 2 times a day, # 20 capsule, Refills 0, Tot. Refills 0, Maintenance, 01/07/23 16:27:00 EST, Route to Pharmacy Electronically, [facility], Partial fill uponpatient request [...] 11/27/22 13:43:00 EST, Route to Pharmacy Electronically, [facility], Partial fill upon patient request if the prescription is for a schedule II opioi... Start Date: 11/27/22 Status: Ordered loperamide 2 mg oral capsule 1, capsule, By Mouth, Every 4 hours, PRN, # 60 capsule, Refills 0, Maintenance, NEEDED FOR LOOSESTOOLS, 01/21/23 16:35:00 EST, Route to Pharmacy Electronically, [facility] STORE 66522, 173, cm, 01/02/2317:14:00 EST, Height, 163.3, kg, [...] 0 Refills, Maintenance, 01/07/23 16:25:00 EST, Tablet, [facility] 3, Partial fill upon patient request [...] Role: Primary Care Nurse Address: Address: [address] [place] [address]- [place] Name: Roni Hunt RN [facility] RN Member Role: Primary Care Nurse Name: Roya Jaramillo RN Position: [facility] RN Member Role: Primary Care Nurse Name: Steve Rose RN Position: [facility] RN Member Role: Primary Care Nurse Name: Tamika Mcguire RN Position: [facility] AMB Nurse Member Role: Primary Care Nurse Name: Gomez Daugherty RN [facility]: [facility] [...] Reference Physician Member Role: PCP Address: Address: [address] [place] [address]- [place] Name: Philomena Benavides RN Position: [facility] RN Member Role: Primary Care Nurse Name: Cortney Benavides RN Position: [facility] RN Member Role: Primary Care Nurse Name: Stefany Lewis RN Position: [facility] ED RN W/OE and Tasks Member Role: Primary Care Nurse Name: Adia Cuevas RN Position: [facility] RN Member Role: Primary Care Nurse Name: Stefany Hamilton RN Position: [facility] Pilot Member Role: Primary Care Nurse Name: Dee Davila RN Position: [facility] RN Member Role: Primary Care Nurse Name: Natalie Lopez RN Position: [facility] RN Member Role: Primary Care Nurse Name: Juan Diego Anguiano RN Position: [facility] RN Member Role: Primary Care Nurse Address: Address: [address] [place] [address]- [place] Name: Iwona Jones RN Position: [facility] RN Member Role: Primary Care Nurse Name: Angelika Villa RN Position: [facility] RN Member Role: Primary Care Nurse Name: Brandi Holman RN Position: [facility] RN Member Role: Primary Care Nurse Name: Candi Moore RN Position: [facility] SN RN Member Role: Primary Care Nurse Name: Stacy Yadav RN Position: [facility] Pilot Member Role: Primary Care Nurse Name: Kenney Hodge RN Position: [facility] RN Member Role: Primary Care Nurse Care Team Related Persons Name: JULIO CESAR ADIABASSAM Address: home [address] [place] [address] Name: RAMÓN CARTAGENA Address: [place] [address] Name: LING WEIR Address: home [address] [place] [address]"
--- OUTSIDE RECORDS SUMMARY | 2023-10-13 11:44 | XMS_ITS | Continuity of Care Document ---
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 Name Role Phone Christopher RIDDLE, Tom Choudhury Primary Care Physician [phone] Encounter [facility] [place] 11/22/22 - 11/27/[address] [id number]- Encounter Diagnosis Seizure(Final) - 11/22/22 Diarrhea(Final) - 11/22/22 Abdominal cramping(Final) - 11/22/22 Discharge Disposition: A-D/C Home Attending Physician: Casi Kincaid MD Admitting Physician: Gertrude Singh MD Referring Physician: Not on Staff, Referring MD Allergies, Adverse Reactions, Alerts Substance Reaction [...] 08/26/22 Recorded pneumococcal 23-valent vaccine 04/10/17 Given [id number] 12y+ bivalent booster vax 2 08/26/22 Recorded SARS-CoV-2 (COVID-19) mRNA BNT-162b2 vac 10/19/21 Recorded SARS-CoV-2 (COVID-19) mRNA BNT-162b2 vac 04/07/21 Recorded SARS-CoV-2 (COVID-19) mRNA BNT-162b2 vac 03/17/21 Recorded influenza virus vaccine, inactivated 08/12/21 Gentry rded Not Given Vaccine Date Status Refusal Reason influenza virus vaccine, inactivated 08/23/20 Not Given Parent Or Guardian Refuses 1Result Comment: .5ML IM/LD Lot [id number] [employer] D Exp 08.16.2023 [facility] [phone] 2Result Comment: .3Ml IM/ LD Lot [id number] Exp 10.01.2022 [facility] [phone] Medications budesonide 3 mg oral delayed release [...] 11/29/22 8:00:00 EST, 11/28/22 8:00:00 EST, Capsule, [facility], Partial fill upon patient request if the prescription is for a schedule II opioid drMerissa. Start Date: 11/28/22 Stop Date: 11/29/22 Status: Ordered dicyclomine 20 mg oral tablet 1 tablet, By Mouth, 3 times a day, # 90 tablet, 0 Refills, Maintenance, 11/12/22 14:55:00 EST, [id number], 173, cm, 10/13/22 7:56:00 EST, Height, 155, kg, 10/13/22 7:56:00 EST, Dry Weight Start Date: 11/12/22 Status: Ordered Dilaudid 2 mg oral tablet 2 mg, Tablet, By Mouth, Every 4 hours, PRN for Pain , Severe, Routine, 11/26/22 10:49:00 EST Start Date: 11/26/22 Stop Date: 11/28/22 Status: Discontinued escitalopram 10 mg oral tablet 1 tablet [...] 11/27/22 13:43:00 EST, Route to Pharmacy Electronically, [facility], Partial fill upon patient request if the prescription is for a schedule II opioi... Start Date: 11/27/22 Status: Ordered lisinopril 20 mg oral tablet 20 mg, Tablet, By Mouth, 11/27/22 9:00:00 EST Start Date: 11/27/22 Stop Date: 11/27/22 Status: Completed loperamide 2 mg oral capsule 1, capsule, By Mouth, Every 4 hours, PRN, # 60 capsule, Refills 0, Maintenance, NEEDED FOR LOOSESTOOLS, 11/12/22 14:55:00 EST, Route to Pharmacy Electronically, [facility]ORE [id number], 173, cm, 227:56:00 EST, Height, 155, kg, [...] 0 Refills, Maintenance, 11/27/22 13:45:00 EST, Tablet, [facility], Partial fill upon patient request ifthe prescription is for a schedule II opioid drug., 175... Start Date: 11/27/22 Status: Ordered oxyCODONE 5 mg oral tablet 5 mg, 1, tablet, By Mouth, Every 6 hours, PRN, for 3 days, # 12 tablet, Refills 0, Tot. Refills 0, Acute 11/30/22 13:44:00 EST, as needed for pain, 11/27/22 13:44:00 EST, Route to Pharmacy Electronically, [facility], Partial fill upon pa... Start Date: [...] Seizure Confirmed Active Severe obesity Confirmed Active Results Orders for Microbiology Reports Name Date Urine Culture (URINE CULTURE) 11/26/22 Microbiology Reports TEST:Urine Culture STATUS:Auth (Verified) BODY SITE: SOURCE:URINE COLLECTED DATE/TIME:11/26/22 11:26 AM Urine Culture SPECIMEN DESCRIPTION : URINE SPECIAL REQUESTS : NONE CULTURE : NO GROWTH REPORT STATUS : FINAL 11/27/2022 Vital Signs Most recent to oldest [Reference Range]: 1 2 3 Height 175 cm (11/27/22 11:00 AM) 175 cm (11/27/22 5:31 AM) 175 cm (11/26/22 10:16 PM) Weight 163.5 kg (11/24/22 2:49 PM) 159.5 kg (11/24/22 1:37 PM) 159.5 kg (11/24/22 8:03 AM) Oxygen Saturation [94-100 %] 94 % (11/27/22 11:00 AM) 95 % (11/27/22 5:31 AM) 91 % *L* (11/26/22 10:16 PM) Pulse Rate [55-90 bpm] 96 bpm *H* (11/27/22 11:00 AM) 98 bpm *H* (11/27/22 5:31 AM) 100 bpm *H* (11/26/22 10:16 PM) Body Mass Index [18.5-24.99 kg/m2] 53.39 kg/m2 *>HHI* (11/24/22 2:49 PM) 52.08 kg/m2 *>HHI* (11/24/22 1:37 PM) 52.08 kg/m2 *>HHI* (11/24/22 8:03 AM) Blood Pressure [90-138/55-84 mm Hg] 134/70mm Hg (11/27/22 11:00 AM) 111/93mm Hg (11/27/22 9:28 AM) 133/79mm Hg (11/27/22 5:31 AM) Respiratory Rate [16-30 br/min] 18 br/min (11/27/22 11:00 AM) 19 br/min (11/27/22 10:47 AM) 19 br/min (11/27/22 9:47 AM) Temperature [96.8-100.4 DegF] 98.1 DegF (11/27/22 11:00 AM) 97.2 DegF (11/27/22 5:31 AM) 98.3 DegF (11/26/22 10:16 PM) Liters per Minute 2 L/min (11/23/22 9:47 PM) 2 L/min (11/23/22 5:50 PM) 2 L/min (11/23/22 1:41 PM) Mode of Delivery (Oxygen) Room air (11/27/22 11:00 AM) Room air (11/27/22 5:31 AM) Room air (11/26/22 10:16 PM) Blood pressure sites Arm, left (11/27/22 11:00 AM) Arm, left (11/27/22 5:31 AM) Arm, right (11/26/22 10:16 PM) Temperature Route Oral (11/27/22 11:00 AM) Oral (11/27/22 5:31 AM) Oral (11/26/22 10:16 PM) Dry Weight 163.5 kg (11/24/22 2:49 PM) 159.5 kg (11/24/22 1:37 PM) 159.5 kg (11/24/22 8:03 AM) Social History Social History Type Response Smoking Status Former smoker, quit more than 30 days ago; Interested in cessation: Yes; Patient wants NRT during admission Yes; Type: Cigarettes; Total pack years: 8; Started at age: 18; entered on: 05/06/22 Sex Admission evaluation note [facility] Event Display: Admission Note Authored Date: [id number] Patient: ??SANDY WEIR ? Age:??37 Years?Sex:??Female?:??1985?? Chief Complaint/Reason for Consultation Diarrhea and increase in seizure frequency History of Present Illness Sandy is a 37-year-old right-handed female patient with known history of epilepsy that is managed by Dr. Tinsley from neurology, recurrent C. difficile infection, obesity, fibromyalgia, recent COVID-19 infection, microscopic colitis who presented to [facility] with complaints of increase in her seizure frequency as well as worsening diarrhea.?? Patient reports having 20 episodes ofseizures in the last 24 hours.?? Patient says that she is awake during these episodes and has had jerking/shaking of one extremity at the time.?? Reports compliance with her seizure medications.?? Patient reports having 10 episodes of diarrhea and now she has abdominal cramping no further diarrhea.?? Did have 1 episode of vomiting.?? Patient had COVID about a month ago and finished course of Paxlovid.?? Patient was seen by neurology earlier.?? Patient has been on Lyrica for pain since September 2022.?? Based on neurology note, patient has had increased myoclonic jerks since.?? Patient reports having increase significantly after.?? She is on Lyrica 100 twice daily.?? She has a VNS implanted as well.?? Also has psychiatric history.?? Based on neurology recommendation, patient might need video EEG in the morning.?? During my interview, patient is alert awake and oriented x4.?? Wants to be full code.?? When I arrived at bedside, patient is asking for multiple home medications to be resumed.?? List of medications, which is handwritten without dosage or frequency??while in the ER??was reviewed??with patient.?? She has Dilaudid written down??on the list??but??it does not appear on her PTAmeds or external fill history??and patient later??informs me that she has been getting it in the ERand wants it. ?? On review of vitals, noted to be afebrile, heart rate max 105, most recent blood pressure 120/61, few episodes of soft blood pressure, noted to have white count of 9.3, hemoglobin 13.4, platelets 324, sodium 139, potassium 4.6, glucose 151, LFT shows AST of 34, alk phos of 116, otherwise unremarkable, creatinine 0.7, initial glucose 151, lactate 2.1 which trended down to 1.4, carbamazepine level 9.1, ethosuximide level pending, urinalysis shows moderate bacteria with 12 WBCs, patient denies any urinary symptoms.?? She denies any cardiac or respiratory symptoms.?? She does have some abdominal cramping and rates her abdominal pain is 8/10 which is generalized, no more nausea.?? Patient hadEKG performed in the ER which showed normal sinus rhythm at rate of 91 with QTC of 435, nonspecificST changes Review of Systems General ROS:??negative for chills or fever, noted fatigue, no night sweats, no unexpained weight loss or weight gain Psychological ROS:negative for anxiety or depressive symptoms, no suicidal thoughts, appropriate insight into situation, mood appears appropriate for situation ENT ROS:??negative for nasal congestion, no sinus drainage, no nosebleeding, no sore throat, no dysphagia, no ear pain Hematological and Lymphatic ROS:??negative for bleeding problems, no history of blood clots, no recent increase in bruising, no noted swollen lymph nodes Endocrine ROS:??negative for polyuria/polydipsia?? Respiratory ROS:??negative for cough, no shortness of breath, no wheezing Cardiovascular ROS:??no chest pain, ??No dyspnea on exertion, ??No edema, no palpitations, no history of loss of consciousness, no orthopnea, no paroxysmal nocturnal dyspnea?? Gastrointestinal ROS:??negative for reflux, positive for nausea, vomiting, diarrhea and??abdominal pain, no black or bloody stools- also no history of constipation, heartburn or hematemesis Genito-Urinary ROS:??no dysuria, no trouble voiding, or hematuria Musculoskeletal ROS:??negative for worsening ongoing back pain, no worsening or chronic neck pain, no new or worsening joint pain, no calf swelling Neurological ROS:??no symptoms of confusion, no dizziness, no gait disturbance, no impaired coordination/balance, no memory loss, positive for increase in seizure frequency, no history of speech problems, no tremors , no visual changes. Objective Measurements?? Height: 175 cm (11/22/22) Weight: 159.5 kg (11/22/22) Dry Weight: 159.5 kg (11/22/22) Body Mass Index:??52.08 kg/m2??Critical (11/22/22) ? Vital Signs?? Temperature: 98.3 DegF (11/22/22 16:02:00) Temperature Route: Oral (11/22/22 18:15:00) Pulse Rate:??105 bpm??High (11/23/22 03:28:00) Respiratory Rate: 18 br/min (11/23/22 03:28:00) Systolic Blood Pressure: 120 mm Hg (11/23/22 03:28:00) Diastolic Blood Pressure: 61 mm Hg (11/23/22 03:28:00) Blood pressure sites: Arm, left (11/23/22 00:58:00) Mean Arterial Pressure: 80 mm Hg (11/22/22 18:15:00) Pulse Pressure: 55 mm Hg (11/22/22 18:15:00) Oxygen Saturation:??92 %??Low (11/23/22 03:28:00) Liters per Minute: 4 L/min (11/22/22 18:15:00) Mode of Delivery (Oxygen): Room air (11/23/22 00:58:00) Early Warning Score: 3 (11/23/22 05:35:55) ? Pain Scores 1 - 10 Pain Scale Score: 9 (13:58) ? Intake/Output? 11/22 20:04 11/23 07:00 11/22 07:00 11/21 07:00 11/20 07:00 ?? 11/23 05:51 11/23 05:51 11/23 06:59 11/22 06:59 11/21 06:59 Intake ?110 ?0 ?110 ?0 ?0 Output ?0 ?0 ?0 ?0 ?0 Net Total ?110 ?0 ?110 ?0 ?0 ? Genaro Coma Scale Genaro Coma Score: 15 (11/22/22 13:58:00) Motor Response-Adult: Obeys commands (11/22/22 13:58:00) Response Eye Opening: Spontaneously (11/22/22 13:58:00) Verbal Response-Adult: Oriented and converses (11/22/22 13:58:00) ? Physical Exam ?? General appearance- alert, cooperative, no distress, appears stated age, oriented to time, place and person,??morbidly obese Head- Normocephalic, without obvious abnormality, atraumatic Eyes-conjunctivae/corneas clear. PERRL, EOM's intact. Nose- Nares normal. Septum midline. Mucosa normal. No drainage or sinus tenderness. Throat-Lips, mucosa, and tongue normal. Neck- supple, symmetrical, trachea midline, no adenopathy, thyroid: not enlarged, symmetric, no tenderness/mass/nodules, no carotid bruit and no JVD Back- symmetric, no curvature.No CVA tenderness Lungs-??clear to auscultation bilaterally Chest wall- no tenderness, no skin rash or lesions or bruising, no crepitance Heart- regular rate and rhythm, S1, S2 normal, no click, rub or gallop Abdomen-??soft, generalized abdominal tenderness, no rebound, no guarding, no peritoneal signs,??bowel sounds normal. No masses,?? No organomegaly Extremities- extremities normal, atraumatic, no cyanosis or edema, warm and well perfused. Muscle tone is normal and equal bilaterally Pulses- 2+ and symmetric on dorsal pedal pulses, posterior tibial pulses, radial pulses Skin- Skin color, texture, turgor normal. No rashes or lesions Neurologic- Normal, nonfocal, no focal weakness ? Assessment/Plan ?? History of seizure disorder Increase in seizure frequency AED management??per neurology. ??Neurology on board Neurology considering video EEG this morning Reduced??Lyrica to 50 mg twice daily??at neurology recommendation Patient??requested to get??ethosuximide from home, not in formulary. ??Her will??bring it in the morning Seizure precautions Continue carbamazepine 600 in the morning and 700 at night Continue lacosamide 150 twice daily Continue Ativan 2 mg nightly??for seizures (based on patient's input) Ethosuximide levels pending Add on lacosamide levels as well Cardiac monitoring and continuous pulse ox monitoring in the interim ?? T2DM Hold Oral anti diabetics Start Insulin sliding scale medium dose with meals and bedtime Lantus 30 units nightly Hypoglycemia precautions Monitor POC Glucose closely and titrate insulin regimen accordingly ?? Hypertension Blood pressure been low normal in the ER,??will hold off on lisinopril ?? Increased abdominal cramping Diarrhea???improved Nausea??and vomiting???resolved ?Flare of microscopic colitis versus C. difficile infection Zofran as needed Encourage p.o. intake Lactate normal Lipase negative No leukocytosis or fever C. difficile and GI PCR pending,??empiric contact isolation in the interim If patient has another episode of diarrhea, will collect stool specimen If worsening symptoms,??will consider??abdominal imaging/GI consult Sparing use of opiates Continue home dose of Bentyl Holding Imodium till stool specimen is collected Will resume home dose of budesonide??when patient's ??brings??it??to the hospital Monitor temperature curve??and??trend white count ?? Anxiety/depression Continue home dose of psych meds??including Cymbalta ?? Morbid obesity Outpatient follow-up??with PCP ?? DVT prophylaxis???Heparin subcu ?? CODE STATUS???full code ?? Diet???cardiac/diabetic ?? Jaleesa Guardado MD [facility] Medicine Date-November 23, 2022.?? Patient seen at??02.45 AM ?? IMPORTANT: This document was created by voice recognition software. A conscious effort has been made to improve accuracy of the director telemetry. Any obvious errors or omissions should be clarified with the authorof this document. ?? Time spent providing and coordinating care for this patient???68 minutes, complexity high Histories Allergies Allergies ?(Active and Proposed Allergies [...] Colonoscopy: 12/16/17 Laparoscopic cholecystectomy: 12/16/16 Esophagogastroduodenoscopy: 12/15/16 ? Social History Alcohol Details:??Use: Never. Employment/School Details:??Status: [...] 8. ??Started at age: 18 Years. ? Psychosocial History ? Family History Father: Anxiety; Depression; Diabetes mellitus; Hypertension ? Travel History Travel Outside [facility]: No ?? Medications Home Medications Acetaminophen (acetaminophen 500 mg oral capsule)?2?capsule?1,000?Milligram?By Mouth?Every 6 hours?as needed?Pain Budesonide (budesonide 3 mg oral delayed release capsule)?3?capsule?9?Milligram?By Mouth?Daily in AM?for 8?week(s)?9 mg (3 tablets) for 3 weeks then6 mg (2 tablets for 3 weeks then3 mg (1 tablet) for 2 weeks then stop Carbamazepine (carBAMazepine 300 mg oral capsule, extended release)?2?capsule?By Mouth?2 times a day Carbamazepine (carBAMazepine 100 mg oral capsule, extended release)?1?capsule?By Mouth?Daily at bedtime Cholecalciferol (Vitamin D3 2000 intl units oral capsule)?1?capsule?50?Microgram?By Mouth?Daily Clonazepam (clonazePAM 0.5 mg oral tablet)?TAKE 1/2 TO 1 TABLET BY MOUTH EVERY DAY NEEDED FORANXIETY Cyanocobalamin?1,000?Microgram Cyclobenzaprine (Flexeril 10 mg oral tablet)?1?tablet?By Mouth?3 times a day?as needed?for spasm Dicyclomine (dicyclomine 20 mg oral tablet)?1?tab(s)?By Mouth?3 times a day Ethosuximide (Zarontin 250 mg oral capsule)?See Instructions?1 capsule By Mouth Daily x 1 week, then 2 qd Insulin Glargine (Lantus 100 u/ml subcutaneous solution)?See Instructions?36 units Subcutaneous Injection Daily at bedtime Lacosamide (Vimpat 150 mg oral tablet)?1?tab(s)?150?Milligram?By Mouth?2 times a day?for 30?Days?MassPat checked. Lisinopril?40?Milligram?By Mouth?Daily Loperamide (loperamide 2 mg oral capsule)?1?capsule?By Mouth?Every 4 hours?as needed? NEEDED FOR LOOSE STOOLS Lorazepam (LORazepam 2 mg oral tablet)?1?tab(s)?2?Milligram?By Mouth?Daily at bedtime?for 30?Days?MassPat checked Naratriptan (naratriptan 1 mg oral tablet)?See Instructions?TAKE 1 TABLET BY MOUTH AT ONSET OF HEADACHE, MAY REPEAT ONCE IN 4 HOURS IF NEEDED nirmatrelvir-ritonavir (Paxlovid 150 mg-100 mg oral tablet)?See Instructions?300mg nirmatrelvir (two 150mg tablets) with 100mg ritonavir (one tablet). ??All three tablets taken together twice daily for 5 days with or without food. Dispense 30 tablets Pregabalin (Lyrica 100 mg oral capsule)?1?capsule?100?Milligram?By Mouth?2 times a day ? Results Recent Labs BLOOD COUNT & DIFF WBC 9.3 k/mm3 ()?? 11/22/2022 14:05 RBC 4.69 m/mm3 ()?? 11/22/2022 14:05 Hgb 13.4 Gm/dL ()?? 11/22/2022 14:05 Hct 42.2 % ()?? 11/22/2022 14:05 MCV 90.0 femtoliters ()?? 11/22/2022 14:05 MCH 28.6 pg ()?? 11/22/2022 14:05 MCHC 31.8 g/dL (Low)?? 11/22/2022 14:05 Platelet Count 324 k/mm3 ()?? 11/22/2022 14:05 RDW-SD 45.1 femtoliters ()?? 11/22/2022 14:05 MPV 9.5 femtoliters ()?? 11/22/2022 14:05 Nucleated RBC (Automated) 0.0 #/100 WBC'S ()?? 11/22/2022 14:05 Abs. NRBC 0.0 k/mm3 ()?? 11/22/2022 14:05 Abs. Neut 6.0 k/mm3 ()?? 11/22/2022 14:05 Abs. Lymph 2.3 k/mm3 ()?? 11/22/2022 14:05 Abs. Robeson 0.6 k/mm3 ()?? 11/22/2022 14:05 Abs. Eo 0.2 k/mm3 ()?? 11/22/2022 14:05 Abs. Baso 0.1 k/mm3 ()?? 11/22/2022 14:05 Neut % 64.5 % ()?? 11/22/2022 14:05 Lymph % 24.5 % ()?? 11/22/2022 14:05 Robeson % 6.5 % ()?? 11/22/2022 14:05 Eos % 2.1 % ()?? 11/22/2022 14:05 Baso % 0.9 % ()?? 11/22/2022 14:05 Imm Gran 1.5 % ()?? 11/22/2022 14:05 Abs. Imm Gran 0.1 k/mm3 ()?? 11/22/2022 14:05 ?? CHEM GENERAL Sodium 139 mmol/L ()?? 11/22/2022 14:05 Potassium 4.6 mmol/L ()?? 11/22/2022 14:05 Chloride 100 mmol/L ()?? 11/22/2022 14:05 Bicarbonate Level 28 mmol/L ()?? 11/22/2022 14:05 Anion Gap 11 ()?? 11/22/2022 14:05 Glucose Level 151 mg/dL (High)?? 11/22/2022 14:05 BUN 15 mg/dL ()?? 11/22/2022 14:05 Creatinine-Blood 0.7 mg/dL ()?? 11/22/2022 14:05 Estimated GFR Creatinine 115 ML/MIN/1.73 M2 ()?? 11/22/2022 14:05 Calcium 9.7 mg/dL ()?? 11/22/2022 14:05 Protein, Total 7.0 Gm/dL ()?? 11/22/2022 14:05 Albumin 4.6 Gm/dL ()?? 11/22/2022 14:05 AG Ratio 1.9 ()?? 11/22/2022 14:05 Alkaline Phosphatase 116 units/L (High)?? 11/22/2022 14:05 Lipase 16 units/L ()?? 11/22/2022 14:05 AST (SGOT) 34 units/L (High)?? 11/22/2022 14:05 ALT (SGPT) 26 units/L ()?? 11/22/2022 14:05 Bilirubin, Total 0.2 mg/dL ()?? 11/22/2022 14:05 Lactate 1.4 mmol/L ()?? 11/23/2022 04:55 ?? HEME OTHER Hold Blue Top SPECIMEN DISCARDED AFTER 4 HOURS. ()?? 11/22/2022 14:05 ?? MISC. CHEMISTRY Hold Red Top SPECIMEN DISCARDED AFTER 1 WEEK ()?? 11/22/2022 15:26 Hold Gel Top SPECIMEN DISCARDED AFTER 1 WEEK ()?? 11/22/2022 15:26 ?? TOXICOLOGY/TDM Carbamazepine Level 9.1 mg/L ()?? 11/22/2022 14:59 ?? UA/URINALYSIS Appear/Color, Urine YELLOW ()?? 11/22/2022 22:00 Specific Boaz, Urine 1.030 ()?? 11/22/2022 22:00 pH, Urine 6.0 ()?? 11/22/2022 22:00 Albumin, Urine 1+ (Abnormal)?? 11/22/2022 22:00 Glucose, Urine NEGATIVE ()?? 11/22/2022 22:00 Ketones, Urine NEGATIVE ()?? 11/22/2022 22:00 Bilirubin, Urine NEGATIVE ()?? 11/22/2022 22:00 Hemoglobin, Urine NEGATIVE ()?? 11/22/2022 22:00 Nitrite, Urine NEGATIVE ()?? 11/22/2022 22:00 Leukocyte, Urine 1+ (Abnormal)?? 11/22/2022 22:00 Urobilinogen NORMAL mg/dL ()?? 11/22/2022 22:00 WBC's, Urine 12 /HPF (High)?? 11/22/2022 22:00 RBC's, Urine NONE SEEN /HPF ()?? 11/22/2022 22:00 Bacteria MODERATE HPF (Abnormal)?? 11/22/2022 22:00 Squamous Epith 81 /HPF (High)?? 11/22/2022 22:00 Mucus HEAVY /LPF ()?? 11/22/2022 22:00 Hold Urine Culture Testing available 48 hours from time of collection. ()?? 11/22/2022 22:00 ?? VIROLOGY COVID-19 POC Result NEGATIVE ()?? 11/22/2022 13:45 ? Abnormal Labs ?? BLOOD COUNT & DIFF ??Abs. Imm Gran ??0.1 k/mm3 () ??11/22/2022 14:05 ??Abs. NRBC ??0.0 k/mm3 () ??11/22/2022 14:05 ??Imm Gran ??1.5 % () ??11/22/2022 14:05 ??MCHC ??31.8 g/dL (Low) ??11/22/2022 14:05 ??Nucleated RBC (Automated) ??0.0 #/100 WBC'S () ??11/22/2022 14:05 ??RDW-SD ??45.1 femtoliters () ??11/22/2022 14:05 ? CHEM GENERAL ??AG Ratio ??1.9 () ??11/22/2022 14:05 ??AST (SGOT) ??34 units/L (High) ??11/22/2022 14:05 ??Alkaline Phosphatase ??116 units/L (High) ??11/22/2022 14:05 ??Estimated GFR Creatinine ??115 ML/MIN/1.73 M2 () ??11/22/2022 14:05 ??Glucose Level ??151 mg/dL (High) ??11/22/2022 14:05 ? HEME OTHER ??Hold Blue Top ??SPECIMEN DISCARDED AFTER 4 HOURS. () ??11/22/2022 14:05 ? MISC. CHEMISTRY ??Hold Gel Top ??SPECIMEN DISCARDED AFTER 1 WEEK () ??11/22/2022 15:26 ??Hold Red Top ??SPECIMEN DISCARDED AFTER 1 WEEK () ??11/22/2022 15:26 ? UA/URINALYSIS ??Albumin, Urine ??1+ (Abnormal) ??11/22/2022 22:00 ??Appear/Color, Urine ??YELLOW () ??11/22/2022 22:00 ??Bacteria ??MODERATE HPF (Abnormal) ??11/22/2022 22:00 ??Bilirubin, Urine ??NEGATIVE () ??11/22/2022 22:00 ??Glucose, Urine ??NEGATIVE () ??11/22/2022 22:00 ??Hemoglobin, Urine ??NEGATIVE () ??11/22/2022 22:00 ??Hold Urine Culture ??Testing available 48 hours from time of collection. () ??11/22/2022 22:00 ??Ketones, Urine ??NEGATIVE () ??11/22/2022 22:00 ??Leukocyte, Urine ??1+ (Abnormal) ??11/22/2022 22:00 ??Mucus ??HEAVY /LPF () ??11/22/2022 22:00 ??Nitrite, Urine ??NEGATIVE () ??11/22/2022 22:00 ??Squamous Epith ??81 /HPF (High) ??11/22/2022 22:00 ??Urobilinogen ??NORMAL mg/dL () ??11/22/2022 22:00 ??WBC's, Urine ??12 /HPF (High) ??11/22/2022 22:00 ? VIROLOGY ??COVID-19 POC Result ??NEGATIVE () ??11/22/2022 13:45 ? Note: Critical results are displayed in red. ? Blood Glucose Trend Glucose Level:??151 mg/dL??High (11/22/22 14:05:00) ? CBC, CBC w/Diff?? CBC?? Differential?? WBC: 9.3 k/mm3 (14:05) Abs. Neut: 6 k/mm3 (14:05) RBC: 4.69 m/mm3 (14:05) Abs. Lymph: 2.3 k/mm3 (14:05) Hct: 42.2 % (14:05) Abs. Robeson: 0.6 k/mm3 (14:05) RDW-SD: 45.1 femtoliters (14:05) Abs. Eo: 0.2 k/mm3 (14:05) Nucleated RBC (Automated): 0 #/100 WBC'S (14:05) Abs. Baso: 0.1 k/mm3 (14:05) Abs. NRBC: 0 k/mm3 (14:05) Neut %: 64.5 % (14:05) ?? Lymph %: 24.5 % (14:05) ?? Robeson %: 6.5 % (14:05) ?? Eos %: 2.1 % (14:05) ?? Baso %: 0.9 % (14:05) ?? Imm Gran: 1.5 % (14:05) ?? Abs. Imm Gran: 0.1 k/mm3 (14:05) ? BMP, Mg, and Phos Anion Gap: 11 (14:05) Bicarbonate Level: 28 mmol/L (14:05) BUN: 15 mg/dL (14:05) Calcium: 9.7 mg/dL (14:05) Chloride: 100 mmol/L (14:05) Creatinine-Blood: 0.7 mg/dL (14:05) Estimated GFR Creatinine: 115 ML/MIN/1.73 M2 (14:05) Glucose Level:??151 mg/dL??High (14:05) Potassium: 4.6 mmol/L (14:05) Sodium: 139 mmol/L (14:05) ?? Coagulation Profile?? No qualifying data available. ?? LFT Albumin: 4.6 Gm/dL (14:05) Alkaline Phosphatase:??116 units/L??High (14:05) ALT (SGPT): 26 units/L (14:05) AST (SGOT):??34 units/L??High (14:05) Bilirubin, Total: 0.2 mg/dL (14:05) ?? Urinalysis Albumin, Urine: 1+ Abnormal (22:00) Appear/Color, Urine: YELLOW (22:00) Bacteria: MODERATE Abnormal (22:00) Bilirubin, Urine: NEGATIVE (22:00) Glucose, Urine: NEGATIVE (22:00) Hemoglobin, Urine: NEGATIVE (22:00) Hold Urine Culture: Testing available 48 hours from time of collection. (22:00) Ketones, Urine: NEGATIVE (22:00) Leukocyte, Urine: 1+ Abnormal (22:00) Mucus: HEAVY (22:00) Nitrite, Urine: NEGATIVE (22:00) pH, Urine: 6 (22:00) RBC's, Urine: NONE SEEN (22:00) Specific Boaz, Urine: 1.03 (22:00) Squamous Epith:??81 /HPF??High (22:00) Urobilinogen: NORMAL (22:00) WBC's, Urine:??12 /HPF??High (22:00) ? Blood Gases?? No qualifying data available. ?? Uric/LDH?? No qualifying data available. ?? Hospital Progress note * Lexis Byers: PERFORM, SIGN, VERIFY Event Display: Progress Note Hospital Authored Date: [id number] Patient: SANDY WEIR Age: 37 years Sex: Female : 1985 Associated Diagnoses: None Author: Lexis Byers Findings Evaluation The patient is AAOX4. The patient is not in acute distress. The patient is able to make needs known. Safety check completed, hourly rounding in place, plan of care updated. See CIS for full biophysical assessment. Call smith is within reach.. Discharge Information Case Management Discharge Plan : Case Management Discharge Plan Data 11/26/2022 10:01 EST Discharge Level of Care at Discharge Home/Correction/Foster Care * Funmilayo Yadav RN: PERFORM, SIGN, VERIFY Event Display: Progress Note Hospital Authored Date: Patient: SANDY WEIR Age: 37 years Sex: Female : 1985 Associated Diagnoses: None Author: Funmilayo Yadav RN Findings Nursing Data Vital Signs : VITAL SIGNS SECTION 11/26/2022 22:16 EST Temperature 98.3 DegF Temperature Route Oral Pulse Rate 100 bpm H Respiratory Rate 16 br/min Systolic Blood Pressure 124 mm Hg Diastolic Blood Pressure 55 mm Hg Blood pressure sites Arm, right Mean Arterial Pressure 78 mm Hg Pulse Pressure 69 mm Hg Oxygen Saturation 91 % L Mode of Delivery (Oxygen) Room air . Narrative/Incidental Received patient alert and orientedx3 breathing freely on RA. C/o abdominal pain. JACK noted to Lt Hand same patent. Ambulates with a steady gait. Seizure precaution inplace. Reported having loose stool. Medicated as ordered.(See MAR). Hourly rounds in progress, bed in low position and call smith within reach. Care and observation continues.. Discharge Information Case Management Discharge Plan : Case Management Discharge Plan Data 11/26/2022 10:01 EST Discharge Level of Care at Discharge Home/Correction/Foster Care * Angélica Marcano: MODIFY Angélica Marcano: MODIFY, MODIFY Angélica Marcano: MODIFY, MODIFY Angélica Marcano: MODIFY, MODIFY Angélica Marcano: MODIFY, MODIFY Event Display: Progress Note Hospital Authored Date: [id number] Patient: ??SANDY WEIR ? Age:??37 Years?Sex:??Female?:??1985?? Subjective Patient seen and evaluated at bedside. Tearful this morning, reports restless night due to continued abdominal??cramping??and disruptive roommate. Abdominal pain radiates to ribs, improved with pain medications. Continues to have loose bowel movements. Reports decreased appetite. Reports no further seizure activity. Endorsing slight headache. Reports new burning with urination and foul smelling urination. Denies any fever, chills, blurry vision,??nausea, vomiting. Review of Systems Negative except for HPI as above. Past Medical History Active Problems??(7) Biliary colic Depression Epileptic seizures Intractable diarrhea Morbid obesity Seizure Severe obesity ? Objective Measurements?? Height: 175 cm (11/26/22) Weight: 163.5 kg (11/24/22) Dry Weight: 163.5 kg (11/24/22) Body Mass Index:??53.39 kg/m2??Critical (11/24/22) ? Vital Signs?? Temperature: 97.5 DegF (11/26/22 05:39:00) Temperature Route: Oral (11/26/22 05:39:00) Pulse Rate:??95 bpm??High (11/26/22 05:39:00) Respiratory Rate: 18 br/min (11/26/22 08:53:00) Systolic Blood Pressure: 124 mm Hg (11/26/22 05:39:00) Diastolic Blood Pressure: 76 mm Hg (11/26/22 05:39:00) Blood pressure sites: Arm, right (11/26/22 05:39:00) Mean Arterial Pressure: 92 mm Hg (11/26/22 05:39:00) Pulse Pressure: 48 mm Hg (11/26/22 05:39:00) Oxygen Saturation: 94 % (11/26/22 05:39:00) Mode of Delivery (Oxygen): Room air (11/26/22 05:39:00) Early Warning Score: 4 (11/26/22 08:53:54) ? Intake/Output? 11/22 20:04 11/26 07:00 11/25 07:00 11/24 07:00 11/23 07:00 ?? 11/26 11:15 11/26 11:15 11/26 06:59 11/25 06:59 11/24 06:59 Intake ? 1784 ?0 ? 1188 ?486 ?0 Output ?0 ?0 ?0 ?0 ?0 Net Total ? 1784 ?0 ? 1188 ?486 ?0 ? Urine Count ?7 ?0 ?6 ?1 ?0 ? Physical Exam Physical Exam General appearance- alert, cooperative,??appears tearful in mild??discomfort. Appears stated age, oriented to time, place and person,??morbidly obese. Head- Normocephalic, without obvious abnormality, atraumatic Eyes-conjunctivae/corneas clear. PERRL, EOM's intact. Neck- supple, symmetrical, trachea midline Back- symmetric, no curvature. Lungs-??clear to auscultation bilaterally Heart- regular rate and rhythm, S1, S2 normal, no click, rub or gallop Abdomen-??soft, nondistended, diffuse tenderness to light palpation, most??tender periumbilically. No masses. Abdominal striae noted. Extremities- extremities normal, atraumatic, no cyanosis or edema, warm and well perfused. Skin- Skin color, texture, turgor normal. No rashes or lesions Neurologic- Normal, nonfocal, no focal weakness _ Inpatient Medications Medications (26) Active SCHEDULED: (15) BusPIRone 10 mg Tablet (BuSpar 10 mg oral tablet) ??7.5 mg, By Mouth, 2 times a day Carbamazepine 100 mg XR Tablet (carBAMazepine 100 mg oral tablet, extended release) ??700 mg, By Mouth, Daily at bedtime Carbamazepine 100 mg XR Tablet (carBAMazepine 100 mg oral tablet, extended release) ??600 mg, By Mouth, Daily Ceftriaxone 1 Gm Inj (Ceftriaxone Inj) ??1 Gm, IVPB, Every 24 hours Dicyclomine 10 mg Capsule (dicyclomine 10 mg oral capsule) ??20 mg 2 capsule, By Mouth, 3 times a day Escitalopram 10 mg Tablet (Lexapro 10 mg oral tablet) ??10 mg, By Mouth, Daily Ethosuximide 250 mg capsule ??2 caps (500 mg), By Mouth, Every 24 hours Heparin 5000 units/mL Inj (1 mL) (Heparin Inj) ??5,000 units 1 mL, Subcutaneous Injection, 3 times a day Insulin Glargine 100 units/mL Inj (Insulin Glargine Inj) ??30 units 0.3 mL, Subcutaneous Injection,Daily at bedtime Lacosamide 50 mg Tablet (Vimpat Tablet) ??150 mg, By Mouth, 2 times a day Lisinopril 20 mg Tablet (lisinopril 20 mg oral tablet) ??20 mg, By Mouth, Daily Lorazepam 1 mg Tablet (LORazepam 1 mg oral tablet) ??2 mg, By Mouth, Daily at bedtime NaCl 0.9% Flush 3ml (NaCL 0.9% Flush) ??3 mL, IV Push, Every 8 hours PredniSONE 20 mg Tablet (predniSONE 20 mg oral tablet) ??20 mg, By Mouth, Daily Risperidone 1 mg Tablet (risperiDONE 1 mg oral tablet) ??2 mg, By Mouth, Daily at bedtime CONTINUOUS: (0) PRN: (11) Acetaminophen 325 mg Tablet (Acetaminophen Tablet) ??650 mg, By Mouth, Every 4 hours Cyclobenzaprine 10 mg Tablet (Flexeril 10 mg oral tablet) ??10 mg, By Mouth, 3 times a day Dextromethorphan-Guaifenesin 20 mg-200 mg/10 mL Liqu UD (Robitussin DM Liquid) ??10 mL, By Mouth, Every 4 hours HYDROmorphone 2 mg Tablet (Dilaudid 2 mg oral tablet) ??2 mg, By Mouth, Every 4 hours Lorazepam 2 mg Inj Syringe (Ativan Inj) ??2 mg, IV Push Slowly, Every 6 hours Melatonin 3 mg Tablet (Melatonin Tablet) ??3 mg, By Mouth, Daily at bedtime NaCl 0.9% Flush 3ml (NaCL 0.9% Flush) ??3 mL, IV Push, Every 8 hours Ondansetron 2mg/mL Inj (2mL Vial) (Zofran Inj) ??4 mg, IV Push, Every 6 hours Polyethylene Glycol 17 Gm Powder (MiraLax Powder) ??17 Gm 1 pack/packet, By Mouth, Daily Senna 8.6 mg / Docusate 50 mg tablet (Docusate/Senna Tablet) ??1 tablet, By Mouth, 2 times a day Simethicone 80 mg Chewable Tablet (Simethicone Tablet) ??80 mg, Chew, 3 times a day ? Results Recent Labs CHEM GENERAL Sodium 139 mmol/L ()?? 11/26/2022 01:12 Potassium 4.5 mmol/L ()?? 11/26/2022 01:12 Chloride 97 mmol/L (Low)?? 11/26/2022 01:12 Bicarbonate Level 26 mmol/L ()?? 11/26/2022 01:12 Anion Gap 16 ()?? 11/26/2022 01:12 Glucose Level 123 mg/dL (High)?? 11/26/2022 01:12 Glucose, POC 143 mg/dL (High)?? 11/25/2022 20:45 BUN 15 mg/dL ()?? 11/26/2022 01:12 Creatinine-Blood 0.7 mg/dL ()?? 11/26/2022 01:12 Estimated GFR Creatinine 112 ML/MIN/1.73 M2 ()?? 11/26/2022 01:12 Calcium 9.9 mg/dL ()?? 11/26/2022 01:12 ?? HEME OTHER Hold Lavender Top SPECIMEN DISCARDED AFTER 24 HOURS. ()?? 11/26/2022 01:12 ? Microbiology ?? C. difficile Rapid Toxin Assay?? Completed?? Source: Stool Body Site: ? Assessment/Plan Diagnoses 37-year-old,??right handed female with PMH significant for??epilepsy (maintained on Carbamazepine 600am/700XR at bedtime, Vimpat 150mg BID, and Ethosuximide 500mg daily), depression with prior suicide attempt and ?Munchausen/factitious??syndrome, as well as??morbid??obesity, and colitis?? (previously treated for chronic C. diff, but apparently was also caught diluting her stool) who presented forevaluation of reports of increased nocturnal seizure??and new daytime myoclonic arm jerks. ?? History of seizure disorder Increase in seizure frequency Patient known to neurologist, Dr. Tinsley Neurology on board, thinking of possible nocturnal frontal lobe epilepsy with complaint of increasing nocturnal seizures in the past few months and new daytime myoclonic arm jerks.?? The worsening seemed concomitant with starting Lyrica for pain.?? Nonepipetic events in DD. video eeg initiated on 11/23 and 11/24 day : no seizure activity noted AED management??per neurology. ?? Continue carbamazepine 600 in the morning and 700 at night Continue lacosamide 150 twice daily Patient??has her ethosuximide brought in from home, requested pharmacy to initiate at home dose of 500 mg daily at 8 pm night d/c lyrica??per neuro, ??patient agreeable Continue Ativan 2 mg nightly??for seizures (based on patient's input) carbamazepine level is 9.1 high normal but other AED level pending d/c radiation monitor Consult Dr. Tinsley about switching from ethosuximide to depakote, appreciate recommendations ?? T2DM Hold Oral anti diabetics Insulin sliding scale medium dose with meals and bedtime Lantus 30 units nightly Hypoglycemia precautions Monitor POC Glucose closely and titrate insulin regimen accordingly ?? Hypertension Restart home med lisinopril at half dose??because JULIANNA is??resolved and BP remains fairly controlled ?? Increased abdominal cramping Diarrhea???improved Nausea??and vomiting???resolved ?Flare of microscopic colitis versus C. difficile infection diarrhea has resolved but reports abdominal cramps and ??mucous discharge per rectum >>patient says it's not normal and wondering if she is having a flare on?? tapering dose of budesonide, she tells me she has been on 3 mg daily (extended duration by herGastroenterologist) but she ran out of it. Budesonide is nonformulary here, I am giving her prednisone at 20 mg and she feels it is helping her. Continue prednisone 20mg GI??saw her here??and offered further investigation with colonoscopy however patient at this time would rather want continue her budesonide and follow-up with GI as outpatient Monitor temperature curve??and??trend white count ?? UTI Send new urinalysis and urine culture Begin empiric 3 day course of ceftriaxone Send urine test today ?? JULIANNA likely prerenal in the setting of diarrhea- resolved Was given IV hydration with resolution ?? Anxiety/depression Continue home dose of psych meds??including Cymbalta SW consult due to tearfulness in hospital ?? Morbid obesity Outpatient follow-up??with PCP ?? DVT prophylaxis???change from heparin to LVNX ?? CODE STATUS???full code ?? Diet???cardiac/diabetic ?? Discharge planning:??possibly tomorrow to home ?? Patient was seen and note written with assistance of Angélica Marcano MS3.? * Sanjiv RIDDLE, Casi: PERFORM Event Display: Progress Note Hospital Authored Date: Attending Attestation:??I have seen and examined this patient on date of service. ??I have discussed the case and its management with the resident and agree with the findings and plan as documented in the resident???s note. Note * Lexis Byers: PERFORM Event Display: Discharge/Transfer Note Hospital Authored Date: [id number] Nursing Discharge Note Entered On: 11/27/2022 16:46 EST Performed On: 11/27/2022 16:46 EST by Lexis Byers Nursing Discharge Note 2 Discharge Time : 11/27/2022 15:45 EST Discharge Level of Care at Discharge : Home/Correction/Foster Care Patient Left Unit Via : Wheelchair Patient Accompanied Off Unit with : Significant other, Responsible adult DC Instructions Provided & Signed by Pt : Yes Patient Understands D/C Instructions : Yes Patient Instructions Discharge Signed : Yes Did Pt have Specialty Bed or Wound Vac : No Lexis Byers - 11/27/2022 16:46 EST * Alcira RIDDLE, Keli John: PERFORM Event Display: Discharge/Transfer Note Hospital Authored Date: [id number] Patient: ??SANDY WEIR ? Age:??37 Years?Sex:??Female?:??1985?? Patient Information Discharge Location: S2 Primary Care Physician: Tom White MD Admit Date/Time: 11/22/22 20:04 Discharge Disposition Discharge Disposition: Home: No Services Discharge Diagnosis Abdominal cramping (R10.9) Diarrhea (R19.7) Myoclonic pattern (G25.3) Seizure (R56.9) Microscopic Colitis UTI Diabetes mellitus Hypertension Morbid Obesity _ Discharge Medications Budesonide (budesonide 3 mg [...] 200 mg oral tablet, extended release)?By Mouth?Daily Cefdinir (cefdinir 300 mg oral capsule)?1?capsule?300?Milligram?By Mouth?Every 12hours?for 1?Days Cholecalciferol (Vitamin D3 2000 intl units oral [...] tablet)?1?tab(s)?4?Milligram?By Mouth?Every 8 hours?as needed?Nausea & Vomiting Oxycodone (oxyCODONE 5 mg oral tablet)?5?Milligram?1?tablet?By Mouth?Every 6 hours?as needed?for 3?Days?as needed for pain Risperidone (risperiDONE 2 mg oral tablet)?2?Milligram?1?tablet?By Mouth?Daily atbedtime ?? Medications Started Zofran 4mg PRN Oxycodone 5mg for 3 days Cefdinir Medications Discontinued Lyrica- in setting of contributing to seizures ?? Doses Changed Lisinopril 40mg to 20mg PCP Follow-Up/Heads-Up 1. Lyrica was discontinued in setting of likely contributing to seizure activity. Follow up with neurology and video EEG outpatient as indicated. 2. Patient will follow-up with gastroenterology to evaluate cramps and reported rectal mucous discharge 3. Patient complained of burning on urination with UA suggestive of UTI, ??so completed a course ofantibiotics. Future Appointments Friday 1:30 PM EST ?? With: Daniel Sloan DO Where: [facility] [address] [facility] [address] [place] [address]- 2022 3:30 PM EST ?? With: Where: 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 (previously treated for chronic C. diff, but apparently was also caught diluting her stool) who presented forevaluation of reports of increased nocturnal seizure??and new daytime myoclonic arm jerks. ?? History of seizure disorder Increase in seizure frequency Patient known to neurologist, Dr. Tinsley. Considered??possible nocturnal frontal lobe epilepsy with complaint of increasing nocturnal seizures in the past few months and new daytime myoclonic arm jerks.?? The worsening seemed concomitant with timing of starting Lyrica for pain.?? Video??EEG initiated on 11/23 and 11/24 day noted no seizure activity. AED management??as per neurology: - Continue home AEDs (Carbamazepine 600am/700XR at bedtime, Vimpat 150mg BID, and Ethosuximide 500mg daily) - Lyrica discontinued in setting of likely contributing to seizures - Continue Ativan 2 mg nightly??for seizures (based on patient's input) - f/u with??Dr. Tinsley about switching from Ethosuximide to Depakote ?? ?Flare of microscopic colitis vs. IBS Patient came in with complaints of diarrhea??which have??resolved but reports abdominal cramps and mucous discharge per rectum. Patient says??this is??not normal and believes she is having a flare. On??tapering dose of budesonide, she??reports she has??been on 3 mg daily (extended duration by her [place] stroenterologist)?? GI??consulted patient and??offered further investigation with colonoscopy, however patient rather wanted to continue her budesonide and follow-up with GI as outpatient - Follow up with gastroenterology outpatient - Oxy 5mg q6 PRN for pain, consider other medications for pain control outpatient - Zofran PRN for nausea and vomiting ?? UTI Patient complained of burning with urination and frequency. Urinalysis showed concerning for UTI. Was given??empiric??2 day course of ceftriaxone. - Complete course of antibiotics tomorrow with Cefdinir, stop date 11/28 ?? T2DM - Resume oral antidiabetic medication upon discharge ?? Hypertension Lisinopril dose was changed from 40mg to 20mg in setting of JULIANNA and normotension. - Resume lisinopril at half dose, up-titrate as necessary according to blood pressure readings ?? JULIANNA likely prerenal in the setting of diarrhea- resolved Was given IV hydration with resolution ?? Chronic Conditions Anxiety/depression- Continue home dose of psych meds,??including Escitalopram Morbid obesity- Outpatient follow-up??with PCP Increased abdominal cramping- improved Diarrhea???improved Nausea??and vomiting???resolved ? DVT prophylaxis???LVNX CODE STATUS???full code Diet???cardiac/diabetic ? Patient was seen??with attending physician, Dr. Kincaid ?? Objective . Physical Exam General: no acute distress, awake, alert HEENT: NCAT, EOM grossly intact, trachea midline CV: RRR Pulm: nonlabored breathing bilaterally Abd: soft, nontender, nondistended, no rebound or guarding Ext: moving all extremities spontaneously, no lower extremity edema Vasc: palpable radial and pedal pulses bilaterally Skin: no rash on limited exam, warm and well-perfused Neuro: answers questions appropriately, 5/5 strength in all extremities, sensation grossly intact, CN II-XII grossly intact Psych: appropriate Consultants Jignesh??MD Mynor- [employer] Sam Tinsley MD- Neurologist Patient Education Titles Recurrent Seizure (Adult)?? Follow-Up Appointments Added Follow Up ?Time Frame ?Comments Christopher RIDDLE, Tom Choudhury?1 week: call to discuss follow up visit Results Imaging(s) ?Video Monitoring EEG ?? 11/23/2022 13:58 ?The patient underwent 32 hours of continuous chcf video EEG monitoring was recorded with the patient awake, drowsy and asleep, during which time no epileptiform activity, seizures orpersistent focal asymmetries occurred. The two button press events for hand symptoms had no EEG correlate. EEG CLASSIFICATION: Normal EEG. ? Microbiology(s) ?Urine Culture ?? 11/26/2022 11:26 ?Micro Cultures: (33 cultures) ?? Culture/Event_id: Urine Culture/[id number] Collect date: 11/26/22 11:26 Result Status: Auth (Verified) Result Date: 11/27/22 12:36 ?? SPECIMEN DESCRIPTION : URINE ?? SPECIAL REQUESTS : NONE ?? CULTURE : NO GROWTH ?? REPORT STATUS : FINAL 11/27/2022 ? _ * Casi Kincaid MD: PERFORM Event Display: Discharge/Transfer Note Hospital Authored Date: Attending Attestation:??I have seen and examined this patient on date of discharge. ??I have discussed the case and its management with the resident and agree with the findings and plan as documentedin the resident???s note. * Lexis Byers: PERFORM Event Display: Patient Education/Instruction Authored Date: [id number] Inpatient Adult Discharge Instructions [address] [id number] Name: SANDY WEIR : 1985 Visit: 11/22/2022 20:04:00 Current Date: 11/27/2022 15:06 Account: [id number] Inpatient Adult Discharge Instructions We would like [...] and their families. Surveys are administered by [employer]. ?? If further treatment with your primary care physician or another doctor is recommended, it is important for you to keep the appointment. Call your primary care physician or return to the Emergency Department immediately if your condition worsens, fails to improve, or new symptoms develop. If you need to find a doctor, you can call [facility] [employer] for a referral at [phone] or toll free at [email or web address] ([phone]) or log in to [email or web address].. ?? You can view and manage your care through the patient portal or by using a health care erlinda of your choosing. [employer] is a website that allows you to securely view your medical information including your hospital discharge summary, office visit summaries, medications and follow-up visits. You can also request appointments, renew medications, and request access to your medical information using a health care erlinda of your choosing, or just ask a question. You can enroll at [email or web address] or register during your next office visit. You have been discharged from [facility], Patient Care Unit: S2. If you have any questions regarding these instructions after you leave, please call us and we will be happy to assist you. [facility] Your Care Team Attending Physician Sanjiv RIDDLE, Casi Consulting Providers Laureano RIDDLE, Sam Discharging Providers Alcira RIDDLE, Keli John Reason for Admission SEIZURES DIARRHEA Your Diagnosis Seizure Diarrhea Abdominal cramping Seizure Myoclonic pattern Tests Performed Below is a partial list of the tests performed during your hospitalization. You may have had other tests and procedures not included in this list. Please discuss all test results with your provider. Albumin Level Basic Metabolic Panel BUN C. difficile Rapid Toxin Assay Calcium Level Carbamazepine Level CBC CBC w/ Differential Comprehensive Metabolic Panel COVID-19 RNA POC Creatinine CRP Electrolytes ESR Ethosuximide Level FREE T4 GI Profile, Stool, PCR Glucose Level GLUCOSE POC Hold Blue Top Tube HOLD GEL TUBE HOLD LAVENDER TUBE HOLD RED TUBE Lacosamide Level Lactic Acid Level Lipase Magnesium Level Phosphorus Level Serum Qualitative TSH with T4 Reflex (Adults Only) Urinalysis w/hold for Urine Culture Primary Care Provider Tom White MD Advance Directive Health Care Proxy on File Yes - Health Care Proxy No qualifying data available. Discharge Vitals Temperature: 97.2 DegF Height: 175 cm Pulse Rate:??98 bpm??High Weight: 163.5 kg Respiratory Rate: 19 br/min Body Mass Index:??53.39 kg/m2??Critical Systolic Blood Pressure: 111 mm Hg Body surface area: 2.82 Diastolic Blood Pressure:??93 mm Hg??High ?? Oxygen Saturation: 95 % ?? Studies Pending All tests and labs ordered during this hospital stay have been completed unless listed below. Please discuss all pending results with your provider listed above in these instructions. ?? Add On Lab Order COVID-19 (2019 Novel Coronavirus) PCR Ova and Parasite Exam What to do next Instructions From Your Doctor keep up with neurology appointment seek medical attention if recurring seizures/seizure like activity follow up with GI for microscopic colitis and regarding continuation and or adjustment of budesonide dosing Discharge Orders Scheduled Follow-Up Appointments Friday 1:30 PM EST ?? With: Daniel Sloan DO Where: [facility] [address] [facility] [address] [place] [address] 2022 3:30 PM EST ?? With: Where: [facility] You Need to Schedule the Following Appointments Follow Up with??Tom White MD When??Within 1 week: call to discuss follow up visit Where: [address] [place] [address] [place] [address]- Discharge Medications SANDY WEIR :1985 Visit Date:11/22/2022 Medications: Please continue your medications until treatment is completed or stopped by your provider. Medications not listed below should be discontinued. Discuss any questions related to medications with your provider. What How Much When Instructions Next Dose New Cefdinir (cefdinir 300 mg oral capsule) 1 capsule Oral Every 12 hours Duration: 1 Days Pickup at [place] [address] Tonight at 9 pm New Ondansetron (ondansetron 4 mg oral tablet) 1 tab(s) Oral Every 8 hours as needed for Nausea & Vomiting Pickup at [place] [address] As needed New Oxycodone (oxyCODONE 5 mg oral tablet) 1 tab(s) Oral Every 6 hours as needed for as needed for pain Duration: 3 Days Pickup at [place] [address] As needed Changed Budesonide (budesonide 3 mg oral delayed release capsule) 3 capsule Oral Daily in the morning Home taper: 3 tabs daily for 3 weeks 2 tabs daily for 3 weeks 1 tab daily for 2 weeks then stop ?? Tomorrow morning Changed Carbamazepine (carBAMazepine 200 mg oral tablet, extended release) Oral Daily Tomorrow morning Changed Carbamazepine (carBAMazepine 400 mg oral tablet, extended release) Oral Daily at Bedtime At bedtime Changed Cyanocobalamin (Vitamin B12 1000 mcg oral tablet) 1 tab(s) Oral Daily Tomorrow morning Changed Ethosuximide (ethosuximide 250 mg oral capsule) 2 capsule Oral Daily at Bedtime At bedtime Changed Insulin Glargine (Lantus 100 u/ ml subcutaneous solution) 30 unit(s) Sublingual Daily at Bedtime At bedtime Changed Lisinopril (lisinopril 20 mg oral tablet) 1 tab(s) Oral Daily Pickup at [place] [id number] Tomorrow morning Unchanged BusPIRone (busPIRone 7.5 mg oral tablet) 1 tab(s) Oral Twice a day Tonight at 9 pm Unchanged Cholecalciferol (Vitamin D3 2000 intl units oral capsule) 1 capsule Oral Daily Tomorrow morning Unchanged Cyclobenzaprine (Flexeril 10 mg oral tablet) 1 tab(s) Oral 3 times a day as needed for for spasm As needed Unchanged Dicyclomine (dicyclomine 20 mg oral tablet) 1 tab(s) Oral 3 times a day Tonight at 9 pm Unchanged Escitalopram (escitalopram 10 mg oral tablet) 1 tab(s) Oral Daily in the morning Tomorrow morning Unchanged Ibuprofen (ibuprofen 600 mg oral tablet) 1 tab(s) Oral Every 8 hours as needed for as needed for pain As needed Unchanged Lacosamide (Vimpat 150 mg oral tablet) 1 tab(s) Oral Twice a day Duration: 30 Days MassPat checked. ?? Tonight at 9 pm Unchanged Loperamide (loperamide 2 mg oral capsule) 1 capsule Oral Every 4 hours as needed for NEEDED FOR LOOSE STOOLS As needed Unchanged Lorazepam (LORazepam 2 mg oral tablet) 1 tab(s) Oral Daily at Bedtime Duration: 30 Days MassPat checked ?? At bedtime Unchanged Melatonin (Melatonin 3 mg oral tablet) 1-2 tablet Oral Daily at Bedtime At bedtime Unchanged Naratriptan (naratriptan 1 mg oral tablet) See instructions TAKE 1 TABLET BY MOUTH AT ONSET OF HEADACHE, MAY REPEAT ONCE IN 4 HOURS IF NEEDED ?? See instructions Unchanged Risperidone (risperiDONE 2 mg oral tablet) 1 tab(s) Oral Daily at Bedtime At bedtime [facility] Information [facility]: [address], [place] [id number] [phone] ?? What How Much When Comments Stop Taking Pregabalin (Lyrica 100 mg oral capsule) 1 capsule Oral Twice a day Test Results Below is a partial list of the most recent Laboratory test results done prior to this discharge. You may have had other tests and procedures not included in this list. Please discuss all test resultswith your provider. Albumin Level (11/24/2022) ???Albumin - 4.2 Gm/dL Basic Metabolic Panel (11/26/2022) ???Sodium - 139 mmol/L???Potassium - 4.5 mmol/L???Chloride - 97 mmol/L???Bicarbonate Level - 26 mmol/L???Anion Gap - 16???Glucose Level - 123 mg/dL???BUN - 15 mg/dL???Creatinine-Blood - 0.7 mg/dL???Estimated GFR Creatinine - 112 ML/MIN/1.73 M2???Calcium - 9.9 mg/dL BUN (11/24/2022) ???BUN - 19 mg/dL C. difficile Rapid Toxin Assay (11/22/2022) ???C.difficile Toxin - Negative. C.Difficile bacterial antigen and toxin not detected. A Calcium Level (11/24/2022) ???Calcium - 9.7 mg/dL Carbamazepine Level (11/22/2022) ???Carbamazepine Level - 9.1 mg/L CBC (11/26/2022) ???WBC - 12.2 k/mm3???RBC - 4.24 m/mm3???Hgb - 12.3 Gm/dL???Hct - 38.4 %???MCV - 90.6 femtoliters???MCH - 29.0 pg???MCHC - 32.0 g/dL???Platelet Count - 277 k/mm3???RDW-SD - 46.3 femtoliters???MPV - 9.6 femtoliters???Nucleated RBC (Automated) - 0.0 #/100 WBC'S???Abs. NRBC - 0.0 k/mm3 CBC w/ Differential (11/23/2022) ???WBC - 11.1 k/mm3???RBC - 4.25 m/mm3???Hgb - 12.2 Gm/dL???Hct - 39.2 %???MCV - 92.2 femtoliters???MCH - 28.7 pg???MCHC - 31.1 g/dL???Platelet Count - 320 k/mm3???RDW-SD - 49.0 femtoliters???MPV - 9.5 femtoliters???Nucleated RBC (Automated) - 0.0 #/100 WBC'S???Abs. NRBC - 0.0 k/mm3???Abs. Neut - 7.0 k/mm3???Abs. Lymph - 2.7 k/mm3???Abs. Robeson - 0.8 k/mm3???Abs. Eo - 0.3 k/mm3???Abs. Baso - 0.1 k/mm3???Neut % - 63.4 %???Lymph % - 24.4 %???Robeson % - 7.0 %???Eos % - 2.5 %???Baso % - 1.0 %???Imm Gran - 1.7 %???Abs. Imm Gran - 0.2 k/mm3 Comprehensive Metabolic Panel (11/23/2022) ???Sodium - 137 mmol/L???Potassium - 5.1 mmol/L???Chloride - 97 mmol/L???Bicarbonate Level - 31 mmol/L???Anion Gap - 9???Glucose Level - 160 mg/dL???BUN - 16 mg/dL???Creatinine-Blood - 1.1 mg/dL???Estimated GFR Creatinine - 68 ML/MIN/1.73 M2???Calcium - 9.4 mg/dL???Protein, Total - 6.5 Gm/dL???Albumin - 4.2 Gm/dL???AG Ratio - 1.8???Alkaline Phosphatase - 108 units/L???AST (SGOT) - 28 units/L???ALT (SGPT) - 23 units/L???Bilirubin, Total - 0.2 mg/dL COVID-19 RNA POC (11/22/2022) ???COVID-19 POC Result - NEGATIVE Creatinine (11/24/2022) ???Creatinine-Blood - 0.7 mg/dL???Estimated GFR Creatinine - 108 ML/MIN/1.73 M2 CRP (11/23/2022) ???C-Reactive Protein - 4.4 mg/dL Electrolytes (11/24/2022) ???Sodium - 136 mmol/L???Potassium - 5.0 mmol/L???Chloride - 98 mmol/L???Bicarbonate Level - 26 mmol/L???Anion Gap - 12 ESR (11/23/2022) ???Sed Rate - 47 mm/hr Ethosuximide Level (11/22/2022) ???Zarontin Level - None Detected FREE T4 (11/23/2022) ???Free T4 - 0.93 ng/dL GI Profile, Stool, PCR (11/22/2022) ???GI PCR, Campylobacter - NEGATIVE???GI PCR, Plesiomonas shigelloides - NEGATIVE???GI PCR, Salmonella - NEGATIVE???GI PCR, Vibrio - NEGATIVE???GI PCR, Vibrio cholerae - NEGATIVE???GI PCR, Yersinia enterocolitica - NEGATIVE???GI PCR, Enteroaggregative E coli - NEGATIVE???GI PCR, Enteropathogenic E coli - NEGATIVE???GI PCR, Enterotoxigenic E coli - NEGATIVE???GI PCR, Gqbwc-khqof-ybrhjqhud E coli -NEGATIVE???GI PCR, Shigella/Enteroinvasive E coli - NEGATIVE???GI PCR, Cryptosporidium - NEGATIVE???GI PCR, Cyclospora cayetanensis - NEGATIVE???GI PCR, Entamoeba histolytica - NEGATIVE???GI PCR, Giardia lamblia - NEGATIVE???GI PCR, Adenovirus F 40/41 - NEGATIVE???GI PCR, Astrovirus - NEGATIVE???GIPCR, Norovirus GI/GII - NEGATIVE???GI PCR, Rotavirus A - NEGATIVE???GI PCR, Sapovirus - NEGATIVE Glucose Level (11/24/2022) ???Glucose Level - 150 mg/dL GLUCOSE POC (11/26/2022) ???Glucose, POC - 148 mg/dL Hold Blue Top Tube (11/22/2022) ???Hold Blue Top - SPECIMEN DISCARDED AFTER 4 HOURS. HOLD GEL TUBE (11/22/2022) ???Hold Gel Top - SPECIMEN DISCARDED AFTER 1 WEEK HOLD LAVENDER TUBE (11/26/2022) ???Hold Lavender Top - SPECIMEN DISCARDED AFTER 24 HOURS. HOLD RED TUBE (11/22/2022) ???Hold Red Top - SPECIMEN DISCARDED AFTER 1 WEEK Lacosamide Level (11/22/2022) ???Lacosamide,Serum - 3.0 Lactic Acid Level (11/23/2022) ???Lactate - 1.4 mmol/L Lipase (11/22/2022) ???Lipase - 16 units/L Magnesium Level (11/23/2022) ???Magnesium - 2.0 mg/dL Phosphorus Level (11/24/2022) ???Phosphorus - 4.2 mg/dL Serum Qualitative (11/26/2022) ??? Serum Qual - NEGATIVE TSH with T4 Reflex (Adults Only) (11/23/2022) ???TSH - 4.10 uIU/mL Urinalysis w/hold for Urine Culture (11/26/2022) ???Appear/Color, Urine - YELLOW???Specific Bo[place], Urine - 1.029???pH, Urine - 5.5???Albumin, Urine - TRACE???Glucose, Urine - NEGATIVE???Ketones, Urine - NEGATIVE???Bilirubin, Urine - NEGATIVE???Hemoglobin, Urine - NEGATIVE???Nitrite, Urine - NEGATIVE???Leukocyte, Urine - NEGATIVE???Urobilinogen - NORMAL???WBC's, Urine - 2 /HPF???RBC's, Urine - NONE SEEN???Squamous Epith - 14 /HPF???Mucus - MODERATE???Hold Urine Culture - Testing available 48 hours from time of collection. Allergies (NKA means No Known Allergies) Versed??(dyspnea, aggitation, throat closes up) gabapentin??(Agitation) sulfa drugs??(rash, C/O: itching) Latex??(itchiness) Toradol??(C/O: a rash) Problems Active Problems??(7) Biliary colic?? Depression?? Epileptic seizures?? Intractable diarrhea?? Morbid obesity?? Seizure?? Severe obesity?? Education Materials Below is the list of Educational Leaflet Providered with your Discharge Instructions. Recurrent Seizure (Adult)?? Valuables and Belongings I fully understand and agree that [facility] accepts no responsibility for all my personal [...] patient Date for Pt to Sign Valuables/Belongings: 11/24/22 14:59:00 ?? Other Discharge Information ? Case Management Discharge Plan?? Discharge Plan?? Discharge Level of Care at Discharge: Home/Correction/Foster Care ?? Pulmonary Rehab Status?? Pulmonary Rehab Discharge Status?? [...] are strongly encouraged to quit. Please call [facility] at [phone] or [phone] ([phone]) or log in to [email or web address] for referrals to smoking cessation programs. ?? The National Suicide Prevention Hotline is available 09/06 if you or someone you know needs to find a reason to keep living. By calling 1-059-655-[employer] (4857) you'll be connected to a skilled, trained counselor at a crisis center in your area. INPATIENT DISCHARGE INSTRUCTIONS SIGNATURE PAGE SANDY WEIR Location:[facility] Registration Date and Time:11/22/2022 20:04 [facility] Primary Care Physician: Christopher RIDDLE, Tom Choudhury, I SANDY WEIR, have received the above patient education materials/instructions and have verbalized understanding. If ambulance or transport services are being used I further acknowledge being given a choice of service. ?? If you need to contact me, please call me at this number: . Patient/Claim Attorney Name: Patient/Claim Attorney Signature: Relationship to Patient: Witness Name/Signature: Date: * Sola Baxter MD: PERFORM Event Display: Patient Education Leaflets Authored Date: [id number] Recurrent Seizure (Adult) ?? [id number] Recurrent Seizure (Adult) You have had another seizure today. A common cause of seizures that keep happening (recurrent seizures) is missing doses of seizure medicine. But sometimes seizures are hard to control even when you take the medicine correctly. If this is the case for you, your healthcare provider may need to increase your dosage. Or you may need to add or change to another medicine. Home care Follow these tips when caring for yourself at home. ??? Seizures aren???t predictable. So don't do anything that might cause danger to you or other people if you have another seizure. Until the seizures are under good control, take these safety steps:o Don???t drive, ride a motorcycle, or ride a bike. o Don???t operate dangerous equipment such as power tools. o Take showers instead of baths. o Don???t swim or climb ladders, trees, or roofs. ??? Tell your close friends and relatives about your seizure. Teach them what to do for you if it happensagain. ??? If medicine was prescribed to prevent seizures, take it exactly as directed. Missing doses will increase the risk of having another seizure. ??? If you miss a dose, take the missed dose assoon as you remember. If it's almost time for your next dose, skip the missed dose. Restart the medicine at your next scheduled time. Don???t take extra medicine to make up for the missed dose. ??? Wear a Medic-Alert bracelet to let emergency staff know about your condition. ??? Follow a regular sleep schedule so that you get at least 6 to 8 hours of restful sleep every night. This is especially important when you're sick with a cold or flu or another type of infection. ??? Alcohol and illegal drugs can cause you to have more seizures. Ask your provider if you are allowed to drink any alcohol at all. For future seizures, if you're alone: ??? If you feel a seizure coming on, lie down on a bed or on the floor with something soft under your head. This will keep you from falling. Lie on your left side, not on your back. This will let fluid drain out of your mouth and prevent choking. Be sure you are clear of any objects that might injure you during the seizure. Call for help if there is time. For future seizures, if someone is with you: ??? The person should help you get into a safe position and call for help. The person shouldn???t try to force anything in your mouth once the seizure begins. This could harm your teeth or jaw. ?? Follow-up care Follow up with your healthcare provider. Keep a seizure calendar to record how often you have a seizure. If you're being started on anti-seizure medicine, ask your provider if you need additional control. Seizure medicine can affect how well control pills work, and you could become . Some women who take seizure medicine also need certain vitamins. Tell your provider if you plan on getting or if you become . Don't drink alcohol until your provider tells you it???s OK. Each state has different laws that say when someone with seizures is allowed to drive. Some states require that a seizure disorder to be reported to the state. They don't allow you to drive until your seizures are controlled. Talk with your provider to see if this applies to you. ?? Important Don't drive until you've followed up with your healthcare provider and you've been cleared to drive. ?? When to get medical care Call your healthcare provider right away??if any of these occur: ??? Seizures happen more often or last longer than normal ??? A seizure lasts more than 5 minutes ??? You don???t wake up between seizures ??? Confusion that lasts more than 30 minutes after a seizure ??? Injury during a seizure ??? Fever of 100.4??F (38.0??C) or higher, or as advised by your provider ??? Unusual grouchiness, drowsiness, or confusion ??? Stiff or painful neck ??? Headache that gets worse? Last Reviewed Date: 2022 ?? 7194-4264 [employer]. All rights reserved. This information is not intended as a substitute for professional medical care. Always follow your healthcare professional's instructions. ?? Patient Care team information Care Team Personnel Name: Michelle Fox RN Position: [facility] RN Member Role: Primary Care Nurse Name: Nyasia Cadet NP Position: [facility] Associate Professional Member Role: Primary Care Nurse Address: Address: [address] [place] [address] Name: Roni Hunt RN Position: [facility] RN Member Role: Primary Care Nurse Name: Roya Jaramillo RN Position: [facility] RN Member Role: Primary Care Nurse Name: Steve oRse RN Position: [facility] RN Member Role: [...] Physician Member Role: PCP Address: Address: [address] [place] [address]- [place] Name: Philomena Benavides RN Position: [facility] RN Member Role: Primary Care Nurse Name: Cortney Benavides RN Position: [facility] RN Member Role: Primary Care Nurse Name: Stefany Lewis RN Position: [facility] ED RN W/OE and Tasks Member Role: Primary Care Nurse Name: Adia Cuevas RN Position: [facility] RN Member Role: Primary Care Nurse Name: Stefany Hamilton RN Position: [facility] Senior Reservoir Engineer Member Role: Primary Care Nurse Name: Dee Davila RN Position: [facility] RN Member Role: Primary Care Nurse Name: Natalie Lopez RN Position: [facility] RN Member Role: Primary Care Nurse Name: Juan Diego Anguiano RN Position: [facility] RN Member Role: Primary Care Nurse Address: Address: [address] [place] [address]- Name: Iwona Jones RN Position: [facility] RN Member Role: Primary Care Nurse Name: Angelika Villa RN Position: [facility] RN Member Role: Primary Care Nurse Name: Brandi Holman RN Position: [facility] RN Member Role: Primary Care Nurse Name: Candi Moore RN Position: [facility] SN RN Member Role: Primary Care Nurse Name: Stacy Yadav RN Position: [facility] Senior Reservoir Engineer Member Role: Primary Care Nurse Name: Kenney Hodge RN Position: [facility] SN RN Member Role: Primary Care Nurse Name: Lexis Byers Position: [facility] RN Member Role: Primary Care Nurse Name: Kaylin CONROY Attending Position: [facility] ED Medicine MD Name: Pawel Chun Position: [facility] ED [facility] Member Role: Milk Bottling Machine Operator Name: Isreal Parker Position: [facility] ED [facility] Member Role: Milk Bottling Machine Operator Name: Kristy Akhtar RN Position: [facility] ED RN W/OE and Tasks Member Role: Patient Care Provider Care Team Related Persons Name: ADIA HARRELLBASSAM Address: home [address] [place] [address] Name: RAMÓN CARTAGENA Address: home [place], [place] Name: LING WEIR Address: home [address] [place] [address]
--- OUTSIDE RECORDS SUMMARY | 2023-10-13 11:45 | XMS_ITS | Continuity of Care Document ---
Author Name Unknown Organization [facility] Address [address] [place] [address]- Care Team Providers Care Lead Presser Name Role Phone Christopher RIDDLE, Tom Choudhury Primary Care Physician [id number] Date(s): 10/18/22 - 11/17/22 [facility] [address] [place] [id number]- [place] Allergies, Adverse Reactions, Alerts Substance Reaction Severity [...] 08/26/22 Recorded pneumococcal 23-valent vaccine 04/10/17 Given [id number] 12y+ bivalent booster vax 2 08/26/22 Recorded SARS-CoV-2 (COVID-19) mRNA BNT-162b2 vac 10/19/21 Recorded SARS-CoV-2 (COVID-19) mRNA BNT-162b2 vac 04/07/21 Recorded SARS-CoV-2 (COVID-19) mRNA BNT-162b2 vac 03/17/21 Recorded influenza virus vaccine, inactivated 08/12/21 Gentry rded Not Given Vaccine Date Status Refusal Reason influenza virus vaccine, inactivated 08/23/20 Not Given Parent Or Guardian Refuses 1Result Comment: .5ML IM/LD Lot [id number] [facility] D Exp 08.16.2023 [facility] [phone] 2Result Comment: .3Ml IM/ LD Lot [id number] Exp 10.01.2022 [facility] [phone] Medications acetaminophen 500 mg oral capsule 2 capsule = 1,000 mg, By Mouth, Every 6 hours, PRN Pain, # 24 capsule, 0 Refills, Maintenance, 10/13/22 7:38:00 EST, [facility] #[id number], Partial fill upon patient request if the prescription is for aschedule II opioid drug., 173, cm, 10/13/22 4:44:00... Start Date: 10/13/22 Status: Ordered budesonide 3 mg oral delayed release capsule 3 capsule = 9 mg, By Mouth, Daily in AM, for 8 week(s), 9 mg (3 tablets) for 3 weeks then 6 mg (2 tablets for 3 weeks then 3 mg (1 tablet) for 2 weeks then stop, # 168 capsule, 0 Refills, Acute 11/26/22 7:52:00 EST, 10/01/22 7:52:00 EST, CR Capsule,... Start Date: 10/01/22 Stop Date: 11/26/22 Status: Ordered carBAMazepine 100 mg oral capsule, extended release 1 capsule, By Mouth, Daily at bedtime, # 30 capsule, 11 Refills, [facility], 173, cm, 05/06/2213:26:00 EDT, Height, 146, kg, 05/06/22 13:26:00 EDT, Dry Weight Start Date: 07/01/22 Status: Ordered carBAMazepine 300 mg oral capsule, extended release 2 capsule, By Mouth, 2 times a day, # 120 capsule, 11 Refills, [facility], 173, cm, 05/06/22 13:26:00 EDT, Height, 146, kg, 05/06/22 13:26:00 EDT, Dry Weight Start Date: 07/01/22 Status: Ordered clonazePAM 0.5 mg oral tablet TAKE 1/2 TO 1 TABLET BY MOUTH EVERY DAY NEEDED FOR ANXIETY Start Date: 08/19/21 Status: Ordered Cyanocobalamin = 1,000 mcg, 0 Refills, Maintenance, 09/27/22 17:07:00 EST, Partial fill upon patient request if the prescription is for a schedule II opioid drug. Start Date: 09/27/22 Status: Ordered dicyclomine 20 mg oral tablet 1 tablet, By Mouth, 3 times a day, # 90 tablet, 0 Refills, Maintenance, 10/18/22 16:12:00 EST, [facility], 173, cm, 10/13/22 7:56:00 EST, Height, 155, kg, 10/13/22 7:56:00 EST, Dry Weight Start Date: 10/18/22 Status: Ordered dicyclomine 20 mg oral tablet 1 tablet, By Mouth, 3 times a day, # 90 tablet, 0 Refills, Maintenance, 11/12/22 14:55:00 EST, [facility], 173, cm, 10/13/22 7:56:00 EST, Height, 155, kg, 10/13/22 7:56:00 EST, Dry Weight Start Date: 11/12/22 Status: Ordered Flexeril 10 mg oral tablet 1, tablet, By Mouth, 3 times a day, PRN, # 30 tablet, Refills 0, Maintenance, for spasm, 04/04/22 22:32:00 EDT, Partial fill upon patient request if the prescription is for a schedule II opioid drug. Start Date: 04/04/22 Status: Ordered Lantus 100 u/ml subcutaneous solution See Instructions, 36 units Subcutaneous Injection Daily at bedtime, 0 Refills, Maintenance, 07/07/21 1:40:00 EDT, Solution, Partial fill upon patient request if the prescription is for a schedule II opioid drug. Start Date: 07/07/21 Status: Ordered Lisinopril = 40 mg, By Mouth, Daily, 0 Refills, Maintenance, 09/27/22 17:09:00 EST, Partial fill upon patient request if the prescription is for a schedule II opioid drug. Start Date: 09/27/22 Status: Ordered loperamide 2 mg oral capsule 1, capsule, By Mouth, Every 4 hours, PRN, # 60 capsule, Refills 0, Maintenance, NEEDED FOR LOOSESTOOLS, 09/05/22 16:04:00 EDT, Route to [facility]acy Electronically, [id number], 173, cm, 05/06/2213:26:00 EDT, Height, 146, kg, 05/06/22 13:26:00 ED... Start Date: 09/05/22 Status: Ordered loperamide 2 mg oral capsule 1, capsule, By Mouth, Every 4 hours, PRN, # 60 capsule, Refills 0, Maintenance, NEEDED FOR LOOSESTOOLS, 11/12/22 14:55:00 EST, Route to Pharmacy Electronically, [facility] 240[facility], 173, cm, 227:56:00 EST, Height, 155, kg, 10/13/22 7:56:00 EST,... Start Date: 11/12/22 Status: Ordered LORazepam 2 mg oral tablet 1 tablet = 2 mg, By Mouth, Daily at bedtime, for 30 days, MassPat checked, # 30 tablet, 5 Refills, Acute 03/24/23 18:15:00 EDT, 09/25/22 18:15:00 EST, [facility]/pharmacy #1234, 175, cm, 09/15/22 17:17:00 EDT, Height, 160.2, kg, 09/15/22 17:17:00 EDT, Dry We... Start Date: 09/25/22 Stop Date: 03/24/23 Status: Ordered Lyrica 100 mg oral capsule 1 capsule = 100 mg, By Mouth, 2 times a day, # 60 capsule, 0 Refills, Maintenance, 09/27/22 17:10:00 EST, Capsule, Partial fill upon patient request if the prescription is for a schedule II opioid drug. Start Date: 09/27/22 Status: Ordered naratriptan 1 mg oral tablet See Instructions, TAKE 1 TABLET BY MOUTH AT ONSET OF HEADACHE, MAY REPEAT ONCE IN 4 HOURS IF NEEDED, # 9 tablet, 1 Refills, Maintenance, 08/26/22 8:54:00 EDT, [facility]/pharmacy #1234, 173, cm, 05/06/22 13:26:00 EDT, Height, 146, kg, 05/06/22 13:26:00 EDT,... Start Date: 08/26/22 Status: Ordered Paxlovid 150 mg-100 mg oral tablet See Instructions, 300mg nirmatrelvir (two 150mg tablets) with 100mg ritonavir (one tablet). All three tablets taken together twice daily for 5 days with or without food. Dispense 30 tablets, # 30 tablet, 0 Refills, Maintenance, 10/13/22 7:35:00 EST,... Start Date: 10/13/22 Status: Ordered Vimpat 150 mg oral tablet 1 tablet = 150 mg, By Mouth, 2 times a day, MassPat checked., # 60 tablet, 5 Refills, Maintenance, 09/23/22 14:32:00 EST, Tablet, [facility]/pharmacy #1234, 175, cm, 09/15/22 17:17:00 EDT, Height, 160.2, kg, 09/15/22 17:17:00 EDT, Dry Weight Start Date: 09/23/22 Stop Date: 03/22/23 Status: Ordered Vitamin D3 2000 intl units oral capsule 1 capsule = 50 mcg, By Mouth, Daily, # 60 capsule, 0 Refills, Maintenance, 08/19/21 17:16:00 EDT, Capsule, Partial fill upon patient request if the prescription is for a schedule II opioid drug. Start Date: 08/19/21 Status: Ordered Zarontin 250 mg oral capsule See Instructions, 1 capsule By Mouth Daily x 1 week, then 2 qd, # 60 tablet, 11 Refills, Maintenance, 02/07/22 15:14:00 EDT, Capsule, [facility]/pharmacy #1234, 175, cm, 01/25/22 8:53:00 EST, Height, 160.7,kg, 01/23/22 16:32:00 EST, Dry Weight Start Date: 02/07/22 Status: Ordered Problem List Condition Confirmation Course [...] Member Role: Primary Care Nurse Address: Address: [address] [place] [id number] Name: Roya Jaramillo RN Position: [facility] [...] Reference Physician Member Role: PCP Address: Address: [address] [place] [address] [place] [address]- [place] Name: Philomena Benavides RN Position: [facility] [...] Care Nurse Name: Stefany Hamilton RN Position: [facility] Front Elevator Operator Member Role: Primary Care Nurse Name: Dee Davila RN Position: [facility] RN Member Role: Primary Care Nurse Name: Natalie Lopez RN Position: [facility] RN Member Role: Primary Care Nurse Name: Juan Diego Anguiano RN Position: [facility] RN Member Role: Primary Care Nurse Address: Address: [address] [place] [address]- [place] Name: Iwona Jones RN Position: [facility] RN Member Role: Primary Care Nurse Name: Angelika Villa RN Position: [facility] RN Member Role: Primary Care Nurse Name: Brandi Holman RN Position: [facility] RN Member Role: Primary Care Nurse Name: Candi Moore RN Position: [facility] SN RN Member Role: Primary Care Nurse Name: Stacy Yadav RN Position: [facility] Front Elevator Operator Member Role: Primary Care Nurse Name: Naveen RNKenney Position: [facility] SN RN Member Role: Primary Care Nurse Care Team Related Persons Name: XIOMARA HARRELLLUANN Address: home [address] [place] [address] Name: RAMÓN CARTAGENA Address: home [place], [place] Name: LING WEIR Address: home [address] [place] [address]
--- OUTSIDE RECORDS SUMMARY | 2023-10-13 11:45 | XMS_ITS | Continuity of Care Document ---
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 Construction Teacher Name Role Phone Christopher RIDDLE, Tom Choudhury Primary Care Physician Encounter [facility] [place] Date(s): 12/12/22 - 01/18/[address] [address] Attending Physician: Ronnie Boyle MD Admitting Physician: Ronnie Boyle MD Allergies, Adverse Reactions, [...] 08/26/22 Recorded pneumococcal 23-valent vaccine 04/10/17 Given [id number] 12y+ bivalent booster vax 2 08/26/22 Recorded SARS-CoV-2 (COVID-19) mRNA BNT-162b2 vac 10/19/21 Recorded SARS-CoV-2 (COVID-19) mRNA BNT-162b2 vac 04/07/21 Recorded SARS-CoV-2 (COVID-19) mRNA BNT-162b2 vac 03/17/21 Recorded influenza virus vaccine, inactivated 08/12/21 Gentry rded Not Given Vaccine Date Status Refusal Reason influenza virus vaccine, inactivated 08/23/20 Not Given Parent Or Guardian Refuses 1Result Comment: .5ML IM/LD Lot [id number] [facility] [employer] D Exp 08.16.2023 [facility] [phone] 2Result Comment: .3Ml IM/ LD Lot [id number] Exp 10.01.2022 [facility] [phone] Medications budesonide 3 mg oral delayed release capsule See Instructions, TAKE 3 TABLETS DAILY X3 WEEKS THEN 2 TABS DAILY X3 WEEKS THEN 1 TAB DAILY X2 WEEKS THEN STOP, # 77 capsule, 2 Refills, Maintenance, 12/24/22 8:57:00 EST, [facility] STORE 01864, 175, cm, 12/22/22 3:33:00 EST, Height, 163.5, kg, 12/17/22 13:... Start Date: 12/24/22 Status: Ordered busPIRone 7.5 mg oral tablet 1 tablet = 7.5 mg, By Mouth, 2 times a day Start Date: 11/25/22 Status: Ordered dicyclomine 20 mg oral tablet 1 tablet, By Mouth, 3 times a day, # 90 tablet, 0 Refills, Maintenance, 12/09/22 14:29:00 EST, [facility]/pharmacy #1234, 175, cm, 11/27/22 15:01:00 EST, Height, 163.5, kg, 11/24/22 14:49:00 EST, Dry Weight Start Date: 12/09/22 Status: Ordered docusate sodium 100 mg oral capsule 100 mg, 1, capsule, By Mouth, 2 times a day, # 20 capsule, Refills 0, Tot. Refills 0, Maintenance, 01/07/23 16:27:00 EST, Route to Pharmacy Electronically, [facility], Partial fill uponpatient request [...] 11/27/22 13:43:00 EST, Route to Pharmacy Electronically, [facility], Partial fill upon patient request if the prescription is for a schedule II opioi... Start Date: 11/27/22 Status: Ordered loperamide 2 mg oral capsule 1, capsule, By Mouth, Every 4 hours, PRN, # 60 capsule, Refills 0, Tot. Refills 0, Maintenance, NEEDED FOR LOOSE STOOLS, 12/09/22 14:29:00 EST, Route to Pharmacy Electronically, [facility]/pharmacy #1234, 175, cm, 11/27/22 15:01:00 EST, Height, 163.5, kg,... Start Date: 12/09/22 Status: Ordered LORazepam 2 mg oral tablet 1 tablet = 2 mg, By Mouth, Daily at bedtime, for 30 days, MassPat checked, # 30 tablet, 5 Refills, Acute 03/24/23 18:15:00 EDT, 09/25/22 18:15:00 EST, [facility]/pharmacy #1234, 175, cm, 09/15/22 17:17:00 EDT, [...] tablet, 1 Refills, Maintenance, 08/26/22 8:54:00 EDT, [facility]/pharmacy #1234, 173, cm, 05/06/22 13:26:00 EDT, Height, 146, kg, 05/06/22 13:26:00 EDT,... Start Date: 08/26/22 Status: Ordered ondansetron 4 mg oral tablet 1 tablet = 4 mg, By Mouth, Every 8 hours, PRN Nausea & Vomiting, # 15 tablet, 0 Refills, Maintenance, 01/07/23 16:25:00 EST, Tablet, [facility], Partial fill upon patient request ifthe [...] 5 Refills, Maintenance, 09/23/22 14:32:00 EST, Tablet, [facility]/pharmacy #1234, 175, cm, 09/15/22 17:17:00 EDT, [...] Team Personnel Name: Michelle Fox RN Position: [facility] RN Member Role: Primary Care Nurse Name: Nyasia Cadet NP Position: [facility] Associate Professional Member Role: Primary Care Nurse Address: Address: [address] [place] [address]- [place] Name: Roni Hunt RN Position: [facility] RN Member Role: Primary Care Nurse Name: Roya Jaramillo RN Position: [facility] RN Member Role: Primary Care Nurse Name: Steve Rose RN Position: [facility] RN Member Role: Primary Care Nurse Name: Tamika Mcguire RN Position: [facility] AMB Nurse Member Role: Primary Care Nurse Name: Gomez Daugherty RN Position: [facility] RN Member Role: Primary Care Nurse Name: Paolo Patterson RN Position: [facility] RN Member Role: Primary Care Nurse Name: Clarisa Mederos RN Position: [facility] RN Member Role: Primary Care Nurse Name: Loreta Pitts RN Position: [facility] RN Member Role: Primary Care Nurse Name: Tom White MD Position: Reference Physician Member Role: PCP Address: Address: [address] [place] [address] [place] [address]- Name: Philomena Benavides RN Position: [facility] RN Member Role: Primary Care Nurse Name: Cortney Benavides RN Position: [facility] RN Member Role: Primary Care Nurse Name: Stefany Lewis RN Position: [facility] ED RN W/OE and Tasks Member Role: Primary Care Nurse Name: Chiquita Cuevas RN Position: [facility] RN Member Role: Primary Care Nurse Name: Stefany Hamilton RN Position: [facility] Hospital Market Investigator Member Role: Primary Care Nurse Name: Dee Davila RN Position: [facility] RN Member Role: Primary Care Nurse Name: Natalie Lopez RN Position: [facility] RN Member Role: Primary Care Nurse Name: Juan Diego Anguiano RN Position: [facility] RN Member Role: Primary Care Nurse Address: Address: [address] [place] [address]- [place] Name: Iwona Jones RN Position: [facility] RN Member Role: Primary Care Nurse Name: Angelika Villa RN Position: [facility] RN Member Role: Primary Care Nurse Name: Brandi Holman RN Position: [facility] RN Member Role: Primary Care Nurse Name: Candi Moore RN Position: [facility] SN RN Member Role: Primary Care Nurse Name: Stacy Yadav RN Position: [facility] Market Investigator Member Role: Primary Care Nurse Name: Naveen RN [place] Position: [facility] SN RN Member Role: Primary Care Nurse Name: Lexis Byers Position: [facility] RN Member Role: Primary Care Nurse Care Team Related Persons Name: RAMÓN HARRELL Address: home [address] [place] [address] Name: RAMÓN CARTAGENA Address: [place] [address] Name: LING WEIR Address: home [address] [place] [address]
--- OUTSIDE RECORDS SUMMARY | 2023-10-13 11:45 | XMS_ITS | Continuity of Care Document ---
Author Name Unknown Organization [facility] Address [address] [place] [address]- Care Team Providers Care Control Systems Specialist Name Role Phone Christopher RIDDLE, Tom Choudhury Primary Care Physician [phone] Encounter [facility] [place](s): 01/30/23 - 03/01/23 [facility] [address] [place], [place] [address] Attending Physician: Josemanuel Galvez Admitting Physician: AdmJosemanuel saenz Referring Physician: Admtr, Da8 Allergies, Adverse Reactions, Alerts Substance Reaction Severity [...] 08/26/22 Recorded pneumococcal 23-valent vaccine 04/10/17 Given [id number] 12y+ bivalent booster vax 2 08/26/22 Recorded SARS-CoV-2 (COVID-19) mRNA BNT-162b2 vac 10/19/21 Recorded SARS-CoV-2 (COVID-19) mRNA BNT-162b2 vac 04/07/21 Recorded SARS-CoV-2 (COVID-19) mRNA BNT-162b2 vac 03/17/21 Recorded influenza virus vaccine, inactivated 08/12/21 Gentry rded Not Given Vaccine Date Status Refusal Reason influenza virus vaccine, inactivated 08/23/20 Not Given Parent Or Guardian Refuses 1Result Comment: .5ML IM/LD Lot [id number] [facility] D Exp 08.16.2023 [facility] [phone] 2Result Comment: .3Ml IM/ LD Lot [id number] Exp 10.01.2022 [facility] [phone] Medications budesonide 3 mg oral delayed release capsule See Instructions, TAKE 3 TABLETS DAILY X3 WEEKS THEN 2 TABS DAILY X3 WEEKS THEN 1 TAB DAILY X2 WEEKS THEN STOP, # 77 capsule, 2 Refills, Maintenance, 12/24/22 8:57:00 EST, [facility], 175, cm, 12/22/22 3:33:00 EST, Height, 163.5, kg, 12/17/22 13:... Start Date: 12/24/22 Status: Ordered busPIRone 7.5 mg oral tablet 1 tablet = 7.5 mg, By Mouth, 2 times a day Start Date: 11/25/22 Status: Ordered dicyclomine 20 mg oral tablet 1 tablet, By Mouth, 3 times a day, # 90 tablet, 0 Refills, Maintenance, 02/24/23 8:38:00 EDT, [facility] 92435, 173, cm, 01/27/23 8:03:00 EDT, Height, 164.8, kg, 02/11/23 10:22:00 EDT, Dry Weight Start Date: 02/24/23 Status: Ordered docusate sodium 100 mg oral capsule 100 mg, 1, capsule, By Mouth, 2 times a day, # 20 capsule, Refills 0, Tot. Refills 0, Maintenance, 01/07/23 16:27:00 EST, Route to Pharmacy Electronically, [facility], Partial fill uponpatient request [...] 11/27/22 13:43:00 EST, Route to Pharmacy Electronically, [facility], Partial fill upon patient request if the prescription is for a schedule II opioi... Start Date: 11/27/22 Status: Ordered loperamide 2 mg oral capsule 1, capsule, By Mouth, Every 4 hours, PRN, # 60 capsule, Refills 0, Maintenance, NEEDED FOR LOOSESTOOLS, 02/24/23 15:54:00 EDT, Route to Pharmacy Electronically, [facility]ORE 55864, 173, cm, 02/25/2312:35:00 EDT, Height, 164.8, kg, 02/11/23 10:22:00... Start Date: 02/24/23 Status: Ordered LORazepam 2 mg oral tablet 1 tablet = 2 mg, By Mouth, Daily at bedtime, for 30 days, MassPat checked, # 30 tablet, 5 Refills, Acute 03/24/23 18:15:00 EDT, 09/25/22 18:15:00 EST, [facility]/pharmacy #1234, 175, cm, 09/15/22 17:17:00 [...] tablet, 1 Refills, Maintenance, 08/26/22 8:54:00 EDT, [facility] #1234, 173, cm, 05/06/22 13:26:00 EDT, Height, 146, kg, 05/06/22 13:26:00 EDT,... Start Date: 08/26/22 Status: Ordered ondansetron 4 mg oral tablet 1 tablet = 4 mg, By Mouth, Every 8 hours, PRN Nausea & Vomiting, # 15 tablet, 0 Refills, Maintenance, 01/07/23 16:25:00 EST, Tablet, [facility], Partial fill upon patient request [...] 5 Refills, Maintenance, 09/23/22 14:32:00 EST, Tablet, [facility] #1234, 175, cm, 09/15/22 17:17:00 [...] Team Personnel Name: Michelle Fox RN Position: [facility] RN Member Role: Primary Care Nurse Name: Nyasia Cadet NP Position: [facility] Associate Professional Member Role: Primary Care Nurse Address: Address: [address] [place] [address]- Name: Roni Hunt RN Position: [facility] RN Member Role: Primary Care Nurse Name: Roya Jaramillo RN Position: [facility] RN Member Role: Primary Care Nurse Name: Steve Rose RN Position: [facility] RN Member Role: Primary Care Nurse Name: Tamika Mcguire RN Position: [facility] AMB Nurse Member Role: Primary Care Nurse Name: My Fonseca NP Position: [facility] Associate Professional Member Role: Lifetime Consulting Provider Address: Address: [address] [place], [place] [address] [place] [address]- Name: Gomez Daugherty RN Position: [facility] RN Member Role: Primary Care Nurse Name: Paolo Patterson RN Position: [facility] RN Member Role: Primary Care Nurse Name: Clarisa Mederos RN Position: [facility] RN Member Role: Primary Care Nurse Name: Loreta Pitts RN Position: [facility] RN Member Role: Primary Care Nurse Name: Tom White MD Position: Reference Physician Member Role: PCP Address: Address: [address] [place] [address] [place] [address]- Name: Philomena Benavides RN Position: [facility] RN Member Role: Primary Care Nurse Name: Cortney Benavides RN Position: [facility] RN Member Role: Primary Care Nurse Name: Gloria Mims RN Position: [facility] RN Member Role: Primary Care Nurse Name: Stefany Lewis RN Position: [facility] ED RN W/OE and Tasks Member Role: Primary Care Nurse Name: Chiquita Cuevas RN Position: [facility] RN Member Role: Primary Care Nurse Name: Stefany Hamilton RN Position: [facility] Pattern Finisher Member Role: Primary Care Nurse Name: Dee Davila RN Position: [facility] RN Member Role: Primary Care Nurse Name: Natalie Lopez RN Position: [facility] RN Member Role: Primary Care Nurse Name: Juan Diego Anguiano RN Position: [facility] RN Member Role: Primary Care Nurse Address: Address: [address] [place] [id number] Name: Iwona Jones RN Position: [facility] RN Member Role: Primary Care Nurse Name: Angelika Villa RN Position: [facility] RN Member Role: Primary Care Nurse Name: Brandi Holman RN Position: [facility] OB RN Member Role: Primary Care Nurse Name: Candi Moore RN Position: [facility] SN RN Member Role: Primary Care Nurse Name: Stacy Yadav RN Position: [facility] Pattern Finisher Member Role: Primary Care Nurse Name: Kenney Hodge RN Position: [facility] SN RN Member Role: Primary Care Nurse Name: Lexis Byers RN Position: [facility] RN Member Role: Primary Care Nurse Care Team Related Persons Name: RAMÓN HARRELL Address: home [address] [place] [address] Name: RAMÓN CARTAGENA Address: [place] [address] Name: LING WEIR Address: home [address] [place] [address]
--- OUTSIDE RECORDS SUMMARY | 2023-10-13 11:45 | XMS_ITS | Continuity of Care Document ---
Author Name Unknown Organization [facility] ter Address [address] [place] [id number] Care Team Providers Care Catering Administrative Assistant Name Role Phone Christopher RIDDLE, Tom Choudhury Primary Care Physician Encounter [facility] R [id number] Date(s): 02/13/23 - 02/15/[address] [address] Discharge Disposition: A-D/C Home Attending Physician: Ellie Cat MD Admitting Physician: Ronnie Boyle MD Referring [...] 08/26/22 Recorded pneumococcal 23-valent vaccine 04/10/17 Given [id number] 12y+ bivalent booster vax 2 08/26/22 Recorded SARS-CoV-2 (COVID-19) mRNA BNT-162b2 vac 10/19/21 Recorded SARS-CoV-2 (COVID-19) mRNA BNT-162b2 vac 04/07/21 Recorded SARS-CoV-2 (COVID-19) mRNA BNT-162b2 vac 03/17/21 Recorded influenza virus vaccine, inactivated 08/12/21 [place] rded Not Given Vaccine Date Status Refusal Reason influenza virus vaccine, inactivated 08/23/20 Not Given Parent Or Guardian Refuses 1Result Comment: .5ML IM/LD Lot [id number] [employer] D Exp 08.16.2023 [facility] [phone] 2Result Comment: .3Ml IM/ LD Lot [id number] Exp 10.01.2022 [facility] [phone] Medications budesonide 3 mg oral delayed release capsule See Instructions, TAKE 3 TABLETS DAILY X3 WEEKS THEN 2 TABS DAILY X3 WEEKS THEN 1 TAB DAILY X2 WEEKS THEN STOP, # 77 capsule, 2 Refills, Maintenance, 12/24/22 8:57:00 EST, [facility] STORE [id number], 175, cm, 12/22/22 3:33:00 EST, Height, 163.5, kg, 12/17/22 13:... Start Date: 12/24/22 Status: Ordered busPIRone 7.5 mg oral tablet 1 tablet = 7.5 mg, By Mouth, 2 times a day Start Date: 11/25/22 Status: Ordered cefpodoxime 200 mg oral tablet 1 tablet = 200 mg, By Mouth, Every 12 hours, for 4 days, # 8 tablet, 0 Refills, Acute 02/19/23 13:53:00 EDT, 02/15/23 13:53:00 EDT, Tablet, [facility], Partial fill upon patient requestif the prescription is for a schedule II opioid madeline... Start Date: 02/15/23 Stop Date: 02/19/23 Status: Ordered dicyclomine 20 mg oral tablet 1 tablet, By Mouth, 3 times a day, # 90 tablet, 0 Refills, Maintenance, 12/09/22 14:29:00 EST, [facility]/pharmacy #[id number], 175, cm, 11/27/22 15:01:00 EST, Height, 163.5, kg, 11/24/22 14:49:00 EST, Dry Weight Start Date: 12/09/22 Status: Ordered docusate sodium 100 mg oral capsule 100 mg, 1, capsule, By Mouth, 2 times a day, # 20 capsule, Refills 0, Tot. Refills 0, Maintenance, 01/07/23 16:27:00 EST, Route to Pharmacy Electronically, [facility], Partial fill uponpatient request if the [...] 11/27/22 13:43:00 EST, Route to Pharmacy Electronically, [facility], Partial fill upon patient request if the prescription is for a schedule II opioi... Start Date: 11/27/22 Status: Ordered loperamide 2 mg oral capsule 1, capsule, By Mouth, Every 4 hours, PRN, # 60 capsule, Refills 0, Tot. Refills 0, Maintenance, NEEDED FOR LOOSE STOOLS, 02/10/23 9:19:00 EDT, Route to Pharmacy Electronically, [facility]/pharmacy #[id number],173, cm, 01/27/23 8:03:00 EDT, Height, 163.3, kg, 0... Start Date: 02/10/23 Status: Ordered LORazepam 2 mg oral tablet 1 tablet = 2 mg, By Mouth, Daily at bedtime, for 30 days, MassPat checked, # 30 tablet, 5 Refills, Acute 03/24/23 18:15:00 EDT, 09/25/22 18:15:00 EST, [facility]/pharmacy #[id number], 175, cm, 09/15/22 [...] tablet, 1 Refills, Maintenance, 08/26/22 8:54:00 EDT, [facility]/pharmacy #[id number], 173, cm, 05/06/22 13:26:00 EDT, Height, 146, kg, 05/06/22 13:26:00 EDT,... Start Date: 08/26/22 Status: Ordered ondansetron 4 mg oral tablet 1 tablet = 4 mg, By Mouth, Every 8 hours, PRN Nausea & Vomiting, # 15 tablet, 0 Refills, Maintenance, 01/07/23 16:25:00 EST, Tablet, [facility], Partial fill upon patient request ifthe prescription is for a schedule II opioid drug., 173... Start Date: 01/07/23 Stop Date: 01/12/23 Status: Ordered oxyCODONE 5 mg oral tablet 10 mg, Tablet, By Mouth, Every 4 hours, PRN for Pain , Severe, Routine, 02/11/23 18:41:00 EDT Start Date: 02/11/23 Stop Date: 02/16/23 Status: Discontinued risperiDONE 2 mg oral tablet 2 mg, 1, tablet, By Mouth, Daily at bedtime Start Date: 11/25/22 Status: Ordered Vimpat 150 mg oral tablet 1 tablet = 150 mg, By Mouth, 2 times a day, MassPat checked., # 60 tablet, 5 Refills, Maintenance, 09/23/22 14:32:00 EST, Tablet, [facility]/pharmacy #[id number], 175, cm, 09/15/22 [...] Confirmed Active Severe obesity Confirmed Active Results Radiology Reports * Exam Date Time Procedure Performing Provider Status 02/13/23 4:31 PM Chest 2 Views Frontal and Lat Susanne Shepard; Auth (Verified) Notes: (Chest 2 Views Frontal and Lat) Reason For Exam: F/u on previous XR, r/o pneumonia, atelactasis;Shortness of Breath RESULT: Chest 2 Views Frontal and Lat Chest 2 Views Frontal and Lat Reason: Shortness of Breath; F u on previous XR, r o pneumonia, atelactasis; Clinical Question(s): Pneumonia COMPARISON: 02/12/2023 FINDINGS: LINES AND TUBES: Device projects at the left chest with leads extending towards the left neck. LUNGS AND PLEURA: Diffuse prominence of the interstitium, slightly increased in the upper lungs. Asymmetric opacity in the left lower lobe has resolved, likely atelectasis. Trace right pleural fluid. No left pleural effusion. No pneumothorax. HEART, MEDIASTINUM AND SHAILESH: Cardiomegaly. Enlarged central pulmonary arteries. BONES AND SOFT TISSUES: No acute abnormality. IMPRESSION: Mild interstitial pulmonary edema, slightly increased. Trace right pleural effusion. WSN: [id number] Ordering Physician: Rohith Stephens Dictated By: Soni More MD Dictated Date/Time: 02/13/23 4:43 pm Reviewed By: Soni More MD Signed By: Soni More MD Signed Date/Time: 02/13/23 4:43 pm Transcribed By: DEION Transcribed Date/Time: 02/13/23 4:41 pm * Exam Date Time Procedure Performing Provider Status 02/12/23 10:32 PM Chest Portable Jose A Grove; Auth (V erified) Notes: (Chest Portable) Reason For Exam: Shortness of Breath RESULT: Chest Portable Chest Portable Reason: Shortness of Breath; Clinical Question(s): Other: COMPARISON: 01/22/2023 and 10/13/2022 FINDINGS: LINES AND TUBES: Left vagal nerve stimulator reidentified. LUNGS AND PLEURA: Increased density in the left lung base could be related to technique but underlying left basilar airspace disease cannot be excluded. Right lung is clear. HEART, MEDIASTINUM AND SHAILESH: Similar to the prior study. BONES AND SOFT TISSUES: No acute abnormality. IMPRESSION: Increased density in the left lung base could be artifactual due to technique but if there is concern for a left lower lobe consolidation, consider a lateral view. WSN: [id number] Ordering Physician: Maria Fernanda Vilchis Dictated By: Felipe Bautista MD Dictated Date/Time: 02/12/23 10:40 p Reviewed By: Felipe Bautista MD Signed By: Felipe Bautista MD Signed Date/Time: 02/12/23 10:40 pm Transcribed By: DEION Transcribed Date/Time: 02/12/23 10:39 pm Vital Signs Most recent to oldest [Reference Range]: 1 2 3 Weight 169.2 kg (02/14/23 6:00 PM) 164.8 kg (02/11/23 10:05 AM) Oxygen Saturation [94-100 %] 95 % (02/15/23 8:00 AM) 96 % (02/15/23 4:00 AM) 92 % *L* (02/15/23 12:00 AM) Pulse Rate [55-90 bpm] 87 bpm (02/15/23 8:00 AM) 77 bpm (02/15/23 4:00 AM) 77 bpm (02/15/23 12:00 AM) Blood Pressure [90-138/55-84 mm Hg] 140/82mm Hg *H* (02/15/23 8:00 AM) 159/90mm Hg *H* (02/15/23 4:00 AM) 157/83mm Hg *H* (02/15/23 12:00 AM) Respiratory Rate [16-30 br/min] 19 br/min (02/15/23 12:45 PM) 20 br/min (02/15/23 11:04 AM) 18 br/min (02/15/23 8:00 AM) Temperature [96.8-100.4 DegF] 97.5 DegF (02/15/23 8:00 AM) 98.2 DegF (02/15/23 4:00 AM) 97.7 DegF (02/15/23 12:00 AM) Liters per Minute 2 L/min (02/14/23 8:00 PM) 2 L/min (02/14/23 6:00 PM) 2 L/min (02/14/23 3:43 PM) Mode of Delivery (Oxygen) Room air (02/15/23 8:00 AM) Room air (02/15/23 4:00 AM) Room air (02/15/23 12:00 AM) Blood pressure sites Arm, left (02/15/23 8:00 AM) Arm, right (02/15/23 4:00 AM) Arm, right (02/15/23 12:00 AM) Temperature Route Oral (02/15/23 8:00 AM) Oral (02/15/23 4:00 AM) Oral (02/15/23 12:00 AM) Dry Weight 164.8 kg (02/11/23 10:05 AM) Weight Obtained Via Bed scale (02/14/23 6:00 PM) Standing scale (02/11/23 10:05 AM) Dry Weight Obtained Via Standing scale (02/11/23 10:05 AM) Social History Social History Type Response Smoking Status Former smoker, quit more than 30 days ago; Interested in cessation: Yes; Patient wants NRT during admission Yes; Type: Cigarettes; Total pack years: 8; Started at age: 18; entered on: 05/06/22 Sex History and physical note * Event Display: History and Physical Hospital Authored Date: Admission evaluation note * Angelo RIDDLE, [facility]: MODIFY, PERFORM, MODIFY, MODIFY, MODIFY, MODIFY, MODIFY Event Display: Admission Note Authored Date: Patient: ??KIRILL WEIR ? Age:??37 Years?Sex:??Female?:??1985?? Chief Complaint/Reason for Consultation Transfer from neurosurgery due to hypoxia, pain control, nausea dehydration and JLUIANNA, Low BP History of Present Illness Patient is a 37 year old female with PMH of epilepsy who is initially admitted for for VNS battery change. 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 diff, but apparently was also caught diluting her stool). ?? She underwent left VNS implant placed by Dr Boyle in 2016.??Originally found to have battery failure this November.??At the time of battery replacement, it was found that she had high impedance and had a whole system failure. ??She underwent VNA implant and battery replacement on 02/12 and her procedure was longer than expected. Post-surgery she was c/o spasms around neck due to vagal nerve irritation. ?? She is POD#1. Overnight she was not feeling well and was diaphoretic due to pain. Noticed to have low O2 on examination. EKGs obtained and revealed no acute ischemic abnormality. She was found to have JULIANNA with creatinine of 2.4 (baseline 0.7-.9). She was dehydrated on exam. Also was desaturatingto 70s on room air.??She had episode of vomiting this morning and remains on oxygen at 3 liters. Per nursing, there was attempt to wean O2 and patient desat to low 80s, upper 70s.??. XR done overnight shows increased density in the left lung base that could be artifactual vs left lower lobe consolidation. ?? When I saw her she is resting comfortably in bed, on oxygen via NC. At this time she denies any chest pain or shortness of breath. She has pain around neck.??She does say that she has suspected history of BIBIANA and was being further worked up for that and she does desat at night. She is to be admitted for acute hypoxic respiratory failure, JULIANNA, dehydration and pain control. Review of Systems General: No fever, chills or rigors, night sweats. HEENT: +neck pain, No headache, no blurred vision, no sorethroat Cardiac: No Chest pain, chest pressure, No palpitations, No light headedness, Orthopnea. Respiratory:??+Short of breath, no cough, Pleuritic chest pain, Wheezing. Abdomen: No diarrhea or constipation, +nausea or abdominal pain Nervous system: No headache, blurred vision, tingling or numbness or any weakness Genito urinary: No Urinary frequency, urgency or dysuria Musculoskeletal/ Extremities: No Bilateral Leg edema , no weakness, swelling or pain Skin: no rash , denies itching.?? Endocrine: No reports of sweating. No cold or heat intolerance. No polyuria or polydipsia. Allergic: No fever, itching, runny nose, sneezing Objective Measurements?? Weight: 164.8 kg (02/11/23) Dry Weight: 164.8 kg (02/11/23) ? Vital Signs?? Temperature: 98.1 DegF (02/13/23 07:38:00) Temperature Route: Oral (02/13/23 07:38:00) Pulse Rate:??104 bpm??High (02/13/23 07:38:00) Respiratory Rate: 18 br/min (02/13/23 09:34:00) Systolic Blood Pressure:??89 mm Hg??Low (02/13/23 07:38:00) Diastolic Blood Pressure:??36 mm Hg??Low (02/13/23 07:38:00) Blood pressure sites: Arm, right (02/13/23 07:38:00) Mean Arterial Pressure: 54 mm Hg (02/13/23 07:38:00) Pulse Pressure: 53 mm Hg (02/13/23 07:38:00) Oxygen Saturation:??90 %??Low (02/13/23 07:38:00) Liters per Minute: 2 L/min (02/13/23 07:38:00) Mode of Delivery (Oxygen): Nasal cannula (02/13/23 07:38:00) Early Warning Score: 7 (02/13/23 09:35:25) ? Physical Exam General: middle aged morbidly obese, sitting comfortably in bed, AAOx3. She is pleasant Neck: surgical dressing is intact, no JVD HEENT: oral membranes dry Heart: regular rhythm, S1 and S2 heard, no MRGs Lungs: diminished bilaterally elysia in bases but clear breath sounds,??Patient not in respiratory distress Abdomen: soft, non-tender, non-distended, +BS in all quadrants. No organomegaly Extremities: Warm, no edema b/l. Neuro: speaking in full sentences, CN 2-12 grossly intact Psych: appropriate mood, calm, cooperative Assessment/Plan Diagnoses ?? Patient is a 37 year old female with PMH of epilepsy who is initially admitted for for VNS battery change. 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 diff, but apparently was also caught diluting her stool). She is s/p VNA implant and battery replacement on 02/12. Transferred to medicine team due to hypoxia, pain control, nausea dehydration and JULIANNA. ?? Acute hypoxic respiratory failure Likely due to post-op atelactasis vs Pneumonia Underlying BIBIANA Repeat XR with lateral views to r/o pneumonia. I have added Pro-shazia to the labs Hold antibiotics at this time She needs aggressive incentive spirometry as her surgery was longer than expected she is morbidly obese Wean off oxygen as tolerated I will hold CTA at this time since she has JULIANNA and low output D-dimer ordered CPAP at night We will keep an eye on her blood pressure, last one /38 ?? Acute kidney injury Dehydration creatinine of 2.4 (baseline 0.7-.9) Reportedly low output At this time will hold any contrast studies??unless absolutely needed Will hydrate with LR 100 cc/hr Repeat labs pending Nuerosurgery consulted nephrology ?? History of epilepsy S/p VNA implant and battery change on 02/12 doing well post op but has spasm like pain in neck continue Lacosamide 150 mg BID Pain management as per neurosurgery. Pain is better this morning when I saw her Currently on oxycodone, Dilaudid??and Pregabalin ?? Leukocytosis likely reactive to surgery No fevers Repeat CXR to r/o pneumonia Hold off antibiotics at this time ?? Hx depression with prior suicide attempt Continue home meds: BuSpar 7.5 mg BID Escitalopram 10 mg in the morning Risperidone??2 mg at bedtime Valium 5 mg TID as needed for anxiety ?? Insulin dependent type II DM Lantus 30 units with sliding scale POC glucose check ?? Essential HTN BP on lower side Hold Lisinopril ?? IBS Dicyclomine 10 mg 20 mg,??3 times a day ?? CODE: Full code Diet: diabetic Med rec: completed DVT prophylaxis: SubQ lovenox ?? Total admission time:??82 minutes which included chart review of vitals, lab/radiology data, in person examination, coordination of care and note writing. Histories Allergies Allergies ?(Active and Proposed Allergies Only) Toradol? (Severity: Unknown severity, Onset: Unknown) ?Reactions: C/O: a rash Latex? (Severity: Unknown severity, Onset: Unknown) ?Reactions: itchiness Versed? (Severity: Persistent Severe, Onset: Unknown) ?Reactions: throat closes up, aggitation, dyspnea ?Comments: Does fine with Ativan, Valium, Klonopin sulfa drugs? (Severity: Persistent Severe, Onset: Unknown) [...] Budesonide (budesonide 3 mg oral delayed release capsule)?See Instructions?TAKE 3 TABLETS DAILY X3 WEEKS THEN 2 TABS DAILY X3 WEEKS THEN 1 TAB DAILY X2 WEEKS THEN STOP BusPIRone (busPIRone 7.5 mg oral tablet)?1?tab(s)?7.5?Milligram?By Mouth?2 times a day Cholecalciferol (Vitamin D3 50,000 intl units oral capsule)?1?capsule?1,250?Microgram?By Mouth?Every Friday Cyanocobalamin (Vitamin B12 1000 mcg oral tablet)?1?tab(s)?1,000?Microgram?By Mouth?Daily Cyclobenzaprine (Flexeril 10 mg oral tablet)?1?tablet?By Mouth?3 times a day?as needed?for spasm Dicyclomine (dicyclomine 20 mg oral tablet)?1?tab(s)?By Mouth?3 times a day Docusate (docusate sodium 100 mg oral capsule)?100?Milligram?1?capsule?By Mouth?2times a day?for 10?Days Escitalopram (escitalopram 10 mg oral tablet)?1?tab(s)?10?Milligram?By Mouth?Daily in AM Fenofibrate (fenofibrate 145 mg oral tablet)?1?tab(s)?145?Milligram?By Mouth?Daily Insulin Glargine (Lantus 100 u/ml subcutaneous solution)?30?unit(s)?Sublingual?Daily [...] oral tablet)?1?tab(s)?4?Milligram?By Mouth?Every 8 hours?as needed?Nausea & Vomiting?for 5?Days Pregabalin (Lyrica 100 mg oral capsule)?1?capsule?100?Milligram?By Mouth?Daily Risperidone (risperiDONE 2 mg oral tablet)?2?Milligram?1?tablet?By Mouth?Daily atbedtime ? Inpatient Medications Medications (25) Active SCHEDULED: (14) BusPIRone 10 mg Tablet (busPIRone 10 mg oral tablet) ??7.5 mg, By Mouth, 2 times a day CeFAZolin 3 Gm / 100 mL NS (premix) (ceFAZolin Inj) ??3 Gm 100 mL, IVPB, Once Dicyclomine 10 mg Capsule (dicyclomine 10 mg oral capsule) ??20 mg 2 capsule, By Mouth, 3 times a day Docusate Sodium 100 mg Capsule (Colace Capsule) ??100 mg 1 capsule, By Mouth, 2 times a day Escitalopram 10 mg Tablet (escitalopram 10 mg oral tablet) ??10 mg, By Mouth, Daily in AM Heparin 5000 units/mL Inj (1 mL) (Heparin Inj) ??5,000 units 1 mL, Subcutaneous Injection, 3 times a day Insulin Glargine 100 units/mL Inj (Insulin Glargine Inj) ??30 units 0.3 mL, Sublingual, Daily at bedtime Insulin Lispro 100 units/mL Inj (3mL) (Insulin LISPRO Sliding Scale) ??2-10 units, Subcutaneous Injection, 3 times a day before meals Lacosamide 50 mg Tablet (Lacosamide Tablet) ??150 mg, By Mouth, 2 times a day Lisinopril 20 mg Tablet (lisinopril 20 mg oral tablet) ??20 mg, By Mouth, Daily Melatonin 3 mg Tablet (Melatonin Tablet) ??3 mg, By Mouth, Daily at bedtime Pregabalin 50 mg Capsule (Lyrica 50 mg oral capsule) ??100 mg, By Mouth, Daily Risperidone 1 mg Tablet (risperiDONE 1 mg oral tablet) ??2 mg, By Mouth, Daily at bedtime Senna 8.6 mg / Docusate 50 mg tablet (Docusate/Senna Tablet) ??2 tablet, By Mouth, Daily CONTINUOUS: (1) Lactated Ringers (1000 mL) Cont IV 1000 mL (LR 1000 mL) ??1,000 mL, IV Infusion, 30 mL/hr PRN: (10) Acetaminophen 325 mg Tablet (Tylenol Tablet) ??975 mg, By Mouth, Every 6 hours Bisacodyl 10 mg Suppository (Bisacodyl Supp) ??10 mg 1 supp, Rectally, Daily Chloraseptic Lozenge ??1 lozenge, By Mouth, Every 3 hours Chloraseptic Throat Hiram (Chloraseptic Hiram) ??1 sprays, By Mouth, Every 4 hours Diazepam 5 mg Tablet (Valium 5 mg oral tablet) ??5 mg, By Mouth, 3 times a day HYDROmorphone 1 mg/mL Inj Syringe (Dilaudid Inj) ??1 mg 1 mL, IV Push Slowly, Every 3 hours Magnesium Hydroxide 8% Susp UD (Milk of Magnesia Liquid) ??30 mL, By Mouth, Daily Ondansetron 2mg/mL Inj (2mL Vial) (Ondansetron Inj) ??4 mg, IV Push, Every 6 hours Ondansetron 4 mg ODT (ondansetron 8 mg oral tablet, disintegrating) ??8 mg, By Mouth, Every 6 hours OxyCODONE 5 mg IR Tablet (oxyCODONE 5 mg oral tablet) ??10 mg, By Mouth, Every 4 hours ? Results Recent Labs BLOOD COUNT & DIFF WBC 18.2 k/mm3 (High)?? 02/12/2023 21:18 RBC 4.14 m/mm3 (Low)?? 02/12/2023 21:18 Hgb 11.6 Gm/dL (Low)?? 02/12/2023 21:18 Hct 38.0 % ()?? 02/12/2023 21:18 MCV 91.8 femtoliters ()?? 02/12/2023 21:18 MCH 28.0 pg ()?? 02/12/2023 21:18 MCHC 30.5 g/dL (Low)?? 02/12/2023 21:18 Platelet Count 383 k/mm3 ()?? 02/12/2023 21:18 RDW-SD 52.8 femtoliters (High)?? 02/12/2023 21:18 MPV 9.7 femtoliters ()?? 02/12/2023 21:18 Nucleated RBC (Automated) 0.0 #/100 WBC'S ()?? 02/12/2023 21:18 Abs. NRBC 0.0 k/mm3 ()?? 02/12/2023 21:18 ?? CHEM GENERAL Sodium 136 mmol/L ()?? 02/12/2023 21:18 Potassium 5.1 mmol/L ()?? 02/12/2023 21:18 Chloride 96 mmol/L (Low)?? 02/12/2023 21:18 Bicarbonate Level 29 mmol/L ()?? 02/12/2023 21:18 Anion Gap 11 ()?? 02/12/2023 21:18 Glucose, POC 153 mg/dL (High)?? 02/13/2023 07:34 BUN 24 mg/dL (High)?? 02/12/2023 21:18 Creatinine-Blood 2.4 mg/dL (High)?? 02/12/2023 21:18 Estimated GFR Creatinine 27 ML/MIN/1.73 M2 ()?? 02/12/2023 21:18 Calcium 9.3 mg/dL ()?? 02/12/2023 21:18 Magnesium 2.3 mg/dL ()?? 02/12/2023 21:18 Lactate 1.6 mmol/L ()?? 02/13/2023 00:31 ? Note * Lynnette Maharaj RN: PERFORM Event Display: Discharge/Transfer Note Hospital Authored Date: [id number] Nursing Discharge Note Entered On: 02/15/2023 14:47 EDT Performed On: 02/15/2023 14:46 EDT by Lynnette Maharaj RN Nursing Discharge Note 2 Discharge Time : 02/15/2023 14:40 EDT Discharge Level of Care at Discharge : Home/Intermediate/Foster Care Patient Left Unit Via : Wheelchair Patient Accompanied Off Unit with : Significant other DC Instructions Provided & Signed by Pt : Yes Patient Understands D/C Instructions : Yes Patient Instructions Discharge Signed : Yes Did Pt have Specialty Bed or Wound Vac : No Lynnette Maharaj RN - 02/15/2023 14:46 EDT * Stephania RIDDLE, Ellie: PERFORM, MODIFY Event Display: Discharge/Transfer Note Hospital Authored Date: [id number] Patient: ??KIRILL WEIR ? Age:??37 Years?Sex:??Female?:??1985?? Patient Information Discharge Location: [facility] Primary Care Physician: Tom White MD Admit Date/Time: 02/13/23 14:57 Discharge Disposition Discharge Disposition: Home: No Services Discharge Diagnosis Acute hypoxemic respiratory failure (J96.01) Hyperkalemia (E87.5) ?? _ Discharge Medications Budesonide (budesonide 3 mg oral delayed release capsule)?See Instructions?TAKE 3 TABLETS DAILY X3 WEEKS THEN 2 TABS DAILY X3 WEEKS THEN 1 TAB DAILY X2 WEEKS THEN STOP BusPIRone (busPIRone 7.5 mg oral tablet)?1?tab(s)?7.5?Milligram?By Mouth?2 times a day Cefpodoxime (cefpodoxime 200 mg oral tablet)?1?tab(s)?200?Milligram?By Mouth?Every 12 hours?for 4?Days Cholecalciferol (Vitamin D3 50,000 intl units oral capsule)?1?capsule?1,250?Microgram?By Mouth?Every Friday Cyanocobalamin (Vitamin B12 1000 mcg oral tablet)?1?tab(s)?1,000?Microgram?By Mouth?Daily Cyclobenzaprine (Flexeril 10 mg oral tablet)?1?tablet?By Mouth?3 times a day?as needed?for spasm Dicyclomine (dicyclomine 20 mg oral tablet)?1?tab(s)?By Mouth?3 times a day Docusate (docusate sodium 100 mg oral capsule)?100?Milligram?1?capsule?By Mouth?2times a day?for 10?Days Escitalopram (escitalopram 10 mg oral tablet)?1?tab(s)?10?Milligram?By Mouth?Daily in AM Fenofibrate (fenofibrate 145 mg oral tablet)?1?tab(s)?145?Milligram?By Mouth?Daily Insulin Glargine (Lantus 100 u/ml subcutaneous solution)?30?unit(s)?Sublingual?Daily [...] oral tablet)?1?tab(s)?4?Milligram?By Mouth?Every 8 hours?as needed?Nausea & Vomiting?for 5?Days Pregabalin (Lyrica 100 mg oral capsule)?1?capsule?100?Milligram?By Mouth?Daily Risperidone (risperiDONE 2 mg oral tablet)?2?Milligram?1?tablet?By Mouth?Daily atbedtime ? 72 Hour Antibiotic History Active Antibiotics Calendar Day Last Administered First Administered Ceftriaxone??1 Gm, 100 mL/hr, IVPB, Every 24 hours ?2 02/14/2023 18:52 02/14/2023 18:52 ? Medications Started cefpodoxime PCP Follow-Up/Heads-Up - Repeated blood work - Follow-up on discharge. - Please review list of medications. Future Appointments Friday 10:00 AM EDT ?? With: Where: [facility] Neurology [address] [facility] 3rd Floor, [address] [place] [id number]- Friday 2:30 PM EDT ?? With: [place] RIDDLE, Ronnie Redman Where: [facility] Neurosurgery [address] [place] [address] Drive [address] [place] [address]- Friday 1:30 PM EDT ?? With: Where: [facility] Friday 2:00 PM EDT ?? With: Carmen DC, Mary Cerda Where: [facility] Plastic Surgery [address] [place] [address] - Friday 10:00 AM EDT ?? With: Carmen DC, Mary Prashant Where: [facility] Plastic Surgery [address] [place] [id number]- Hospital Course 37 YOF with pertinent PMH of epilepsy, Insulin dependent type II DM, HTN, depression with prior suicide attempt, suspected Munchausen/factitious syndrome, morbid obesity, and colitis (previously treated for chronic C. diff, but apparently was also caught diluting her stool). She is s/p VNA implant and battery replacement on 02/12. Transferred to medicine team due to hypoxia, pain control, nausea dehydration and JULIANNA. ?? Hypoxia most likely multifactorial in nature including possible obesity hypoventilation, BIBIANA and possible atelectasis however noted to have elevated procalcitonin and leukocytosis, treatment for possible pneumonia was started. X- ray was also concerning for mild interstitial pulmonary edema and trace right pleural effusion. Improvement in hypoxia with antibiotics and incentive spirometry. Supplemental O2 was??titrated off. ?? Acute kidney injury is most likely prerenal, nephrology consult was requested. All contrast studieswere held. IV hydration was continued and subsequent improvement in renal function was seen. Also noted to have hypokalemia which responded well to Lokelma. ?? The remaining of her medications were continued as such. Please see progress note for detailed course of hospitalization. ?? Given she was close to her baseline mentation, decision was taken to discharge home. She is recommended to continue taking antibiotics to complete the course. She needs to follow the primary care physician repeat set of blood work including renal function, electrolytes. Also recommended to obtain sleep study as an outpatient. ?? Patient expresses understanding agrees with plan. ?? Objective . Physical Exam General: middle aged morbidly obese, sitting comfortably in bed, AAOx3. She is pleasant Neck: surgical dressing is intact, no JVD Heart: regular rhythm, S1 and S2 heard, no MRGs Lungs: diminished bilaterally elysia in bases but clear breath sounds,??Patient not in respiratory distress Abdomen: soft, non-tender, non-distended, +BS in all quadrants. No organomegaly Extremities: Warm, no edema b/l. Neuro: speaking in full sentences, CN 2-12 grossly intact Psych: appropriate mood, calm, cooperative Surgical Procedures Placement Vagus Nerve Stimulator 02/11/2023 12:24 Pending Results Add On Lab Order ordered on 02/13/2023 Add On Lab Order ordered on 02/13/2023 Add On Lab Order ordered on 02/14/2023 Basic Metabolic Panel ordered on 02/14/2023 CBC ordered on 02/14/2023 Magnesium Level ordered on 02/14/2023 Phosphorus Level ordered on 02/14/2023 Patient Education Titles Neurosurgery-Lumbar Discharge Instructions?? Follow-Up Appointments Added Follow Up ?Time Frame ?Comments Christopher RIDDLE, Tom Choudhury Patient Instructions ??? Please follow-up with primary care physician for repeat set of blood including renal function, electrolytes??and??reviewing list of medications. ??? Please??consider obtaining sleep study as an outpatient ?Please present to the emergency department if you have any of the following symptoms includingbut not limited to,??worsening shortness of breath, increasing fevers. Post Discharge Care Discharge ?02/15/23 13:55:00 EDT Home Health Face to Face ^HomeHealthFTF Results Discharge Labs BLOOD COUNT & DIFF WBC 8.3 k/mm3 ()?? 02/15/2023 05:42 RBC 3.67 m/mm3 (Low)?? 02/15/2023 05:42 Hgb 10.0 Gm/dL (Low)?? 02/15/2023 05:42 Hct 33.3 % (Low)?? 02/15/2023 05:42 MCV 90.7 femtoliters ()?? 02/15/2023 05:42 MCH 27.2 pg ()?? 02/15/2023 05:42 MCHC 30.0 g/dL (Low)?? 02/15/2023 05:42 Platelet Count 231 k/mm3 ()?? 02/15/2023 05:42 RDW-SD 50.1 femtoliters (High)?? 02/15/2023 05:42 MPV 10.4 femtoliters ()?? 02/15/2023 05:42 Nucleated RBC (Automated) 0.4 #/100 WBC'S ()?? 02/15/2023 05:42 Abs. NRBC 0.0 k/mm3 ()?? 02/15/2023 05:42 ?? CHEM GENERAL Sodium 142 mmol/L ()?? 02/15/2023 05:42 Potassium 5.1 mmol/L ()?? 02/15/2023 05:42 Chloride 106 mmol/L ()?? 02/15/2023 05:42 Bicarbonate Level 28 mmol/L ()?? 02/15/2023 05:42 Anion Gap 8 ()?? 02/15/2023 05:42 Glucose Level 129 mg/dL (High)?? 02/15/2023 05:42 Glucose, POC 120 mg/dL (High)?? 02/15/2023 12:02 BUN 19 mg/dL ()?? 02/15/2023 05:42 Creatinine-Blood 0.7 mg/dL ()?? 02/15/2023 05:42 Estimated GFR Creatinine 106 ML/MIN/1.73 M2 ()?? 02/15/2023 05:42 Calcium 8.9 mg/dL ()?? 02/15/2023 05:42 Phosphorus 1.7 mg/dL (Low)?? 02/15/2023 05:42 Magnesium 2.1 mg/dL ()?? 02/15/2023 05:42 Lactate 1.6 mmol/L ()?? 02/13/2023 00:31 ?? MISC. CHEMISTRY Procalcitonin 0.34 ng/mL ()?? 02/13/2023 09:09 ? VIROLOGY COVID-19 PCR Specimen Source NASAL ()?? 02/13/2023 10:00 COVID-19 PCR Result NEGATIVE ()?? 02/13/2023 10:00 ? 31??minutes spent on discharge * Chiquis CORNELL, Calista: PERFORM Event Display: Patient Education/Instruction Authored Date: [id number] Inpatient Adult Discharge Instructions [address] [address] Name: KIRILL WEIR : 1985 Visit: 02/13/2023 14:57:00 Current Date: 02/15/2023 14:24 Account: [id number] Inpatient Adult Discharge Instructions We would like [...] and their families. Surveys are administered by [employer]. ?? If further treatment with your primary care physician or another doctor is recommended, it is important for you to keep the appointment. Call your primary care physician or return to the Emergency Department immediately if your condition worsens, fails to improve, or new symptoms develop. If you need to find a doctor, you can call [facility] [employer] for a referral at [phone] or toll free at [phone]) or log in to [email or web address].. ?? You can view and manage your care through the patient portal or by using a health care erlinda of your choosing. [employer] is a website that allows you to securely view your medical information including your hospital discharge summary, office visit summaries, medications and follow-up visits. You can also request appointments, renew medications, and request access to your medical information using a health care erlinda of your choosing, or just ask a question. You can enroll at [email or web address] or register during your next office visit. You have been discharged from [facility], Patient Care Unit: D6B. If you have any questions regarding these instructions after you leave, please call us and we will be happy to assist you. [facility] Your Care Team Attending Physician Stephania RIDDLE, Ellie Consulting Providers Tyson Varner MD Discharging Providers Stephania RIDDLE, Ellie Reason for Admission VNS LEAD FAILURE PLACEMENVAGUS NERV STIM OVN COLE Your Diagnosis Acute hypoxemic respiratory failure Hyperkalemia Tests Performed Below is a partial list of the tests performed during your hospitalization. You may have had other tests and procedures not included in this list. Please discuss all test results with your provider. Basic Metabolic Panel BUN Calcium Level CBC COVID-19 (NOVEL CORONAVIRUS) PCR Creatinine Electrolytes GLUCOSE POC Lactate Level Magnesium Level Phosphorus Level Potassium Level PROCALCITONIN, SERUM CXR Portable XR Chest 2 Views Frontal and Lat Primary Care Provider Tom White MD Advance Directive Health Care Proxy on File Yes - Health Care Proxy Discharge Vitals Temperature: 97.5 DegF Weight: 169.2 kg Pulse Rate: 87 bpm ?? Respiratory Rate: 20 br/min ?? Systolic Blood Pressure:??140 mm Hg??High ?? Diastolic Blood Pressure: 82 mm Hg ?? Oxygen Saturation: 95 % ?? Studies Pending All tests and labs ordered during this hospital stay have been completed unless listed below. Please discuss all pending results with your provider listed above in these instructions. ?? Add On Lab Order Basic Metabolic Panel CBC Magnesium Level Phosphorus Level What to do next Instructions From Your Doctor ??? Please follow-up with primary care physician for repeat set of blood including renal function, electrolytes??and??reviewing list of medications. ??? Please??consider obtaining sleep study as an outpatient ?Please present to the emergency department if you have any of the following symptoms includingbut not limited to,??worsening shortness of breath, increasing fevers. Discharge Orders Scheduled Follow-Up Appointments Friday 10:00 AM EDT ?? With: Where: [facility] Neurology [address], [address] [place], [place] - Friday 2:30 PM EDT ?? With: Ronnie Boyle MD Where: [facility] Neurosurgery [address] [place] [address] Drive [address] [place], [place] - Friday 1:30 PM EDT ?? With: Where: [facility] Friday 2:00 PM EDT ?? With: Mary Morales NP Where: [facility] Plastic Surgery [address] [place] [address] - Friday 10:00 AM EDT ?? With: Mary Morales NP Where: [facility] Plastic Surgery [address] [place] [id number]- You Need to Schedule the Following Appointments Follow Up with??Christopher RIDDLE, Tom Choudhury When?? Where: [address] [place] [address] MEENU Luis [id number]- Discharge Medications KIRILL WEIR :1985 Visit Date:02/13/2023 Medications: Please continue your medications until treatment is completed or stopped by your provider. Medications not listed below should be discontinued. Discuss any questions related to medications with your provider. What How Much When Instructions Next Dose New Cefpodoxime (cefpodoxime 200 mg oral tablet) 1 tab(s) Oral Every 12 hours Duration: 4 Days [facility] [address] 02/16/23 Unchanged Budesonide (budesonide 3 mg oral delayed release capsule) See instructions TAKE 3 TABLETS DAILY X3 WEEKS THEN 2 TABS DAILY X3 WEEKS THEN 1 TAB DAILY X2 WEEKS THEN STOP ?? 02/16/23 Unchanged BusPIRone (busPIRone 7.5 mg oral tablet) 1 tab(s) Oral Twice a day 9pm tonight Unchanged Cholecalciferol (Vitamin D3 50,000 intl units oral capsule) 1 capsule Oral Every Friday every friday Unchanged Cyanocobalamin (Vitamin B12 1000 mcg oral tablet) 1 tab(s) Oral Daily 02/16/23 Unchanged Cyclobenzaprine (Flexeril 10 mg oral tablet) 1 tab(s) Oral 3 times a day as needed for for spasm as needed Unchanged Dicyclomine (dicyclomine 20 mg oral tablet) 1 tab(s) Oral 3 times a day 3pm, 9pm??today Unchanged Docusate (docusate sodium 100 mg oral capsule) 1 capsule Oral Twice a day Duration: 10 Days 9pm tonight Unchanged Escitalopram (escitalopram 10 mg oral tablet) 1 tab(s) Oral Daily in the morning 02/16/23 Unchanged Fenofibrate (fenofibrate 145 mg oral tablet) 1 tab(s) Oral Daily 02/16/23 Unchanged Insulin Glargine (Lantus 100 u/ ml subcutaneous solution) 30 unit(s) Sublingual Daily at Bedtime 9pm tonight Unchanged Lacosamide (Vimpat 150 mg oral tablet) 1 tab(s) Oral Twice a day Duration: 30 Days [employer] checked. ?? 9pm tonight Unchanged Lisinopril (lisinopril 20 mg oral tablet) 1 tab(s) Oral Daily 02/16/23 Unchanged Loperamide (loperamide 2 mg oral capsule) 1 capsule Oral Every 4 hours as needed for NEEDED FOR LOOSE STOOLS as needed Unchanged Lorazepam (LORazepam 2 mg oral tablet) 1 tab(s) Oral Daily at Bedtime Duration: 30 Days [employer] checked ?? 9pm tonight Unchanged Melatonin (Melatonin 3 mg oral tablet) 1-2 tablet Oral Daily at Bedtime 9pm tonight Unchanged Naratriptan (naratriptan 1 mg oral tablet) See instructions TAKE 1 TABLET BY MOUTH AT ONSET OF HEADACHE, MAY REPEAT ONCE IN 4 HOURS IF NEEDED ?? as needed Unchanged Ondansetron (ondansetron 4 mg oral tablet) 1 tab(s) Oral Every 8 hours as needed for Nausea & Vomiting Duration: 5 Days as needed Unchanged Pregabalin (Lyrica 100 mg oral capsule) 1 capsule Oral Daily 02/16/23 Unchanged Risperidone (risperiDONE 2 mg oral tablet) 1 tab(s) Oral Daily at Bedtime 9pm tonight Pharmacy Information [facility] [address]: [address] [place], [place] [id number] [phone] Test Results Below is a partial list of the most recent Laboratory test results done prior to this discharge. You may have had other tests and procedures not included in this list. Please discuss all test resultswith your provider. Basic Metabolic Panel (02/15/2023) ???Sodium - 142 mmol/L???Potassium - 5.1 mmol/L???Chloride - 106 mmol/L???Bicarbonate Level - 28 mmol/L???Anion Gap - 8???Glucose Level - 129 mg/dL???BUN - 19 mg/dL???Creatinine-Blood - 0.7 mg/dL???Estimated GFR Creatinine - 106 ML/MIN/1.73 M2???Calcium - 8.9 mg/dL BUN (02/12/2023) ???BUN - 24 mg/dL Calcium Level (02/12/2023) ???Calcium - 9.3 mg/dL CBC (02/15/2023) ???WBC - 8.3 k/mm3???RBC - 3.67 m/mm3???Hgb - 10.0 Gm/dL???Hct - 33.3 %???MCV - 90.7 femtoliters???MCH - 27.2 pg???MCHC - 30.0 g/dL???Platelet Count - 231 k/mm3???RDW-SD - 50.1 femtoliters???MPV - 10.4 femtoliters???Nucleated RBC (Automated) - 0.4 #/100 WBC'S???Abs. NRBC - 0.0 k/mm3 COVID-19 (NOVEL CORONAVIRUS) PCR (02/13/2023) ???COVID-19 PCR Specimen Source - NASAL???COVID-19 PCR Result - NEGATIVE Creatinine (02/12/2023) ???Creatinine-Blood - 2.4 mg/dL???Estimated GFR Creatinine - 27 ML/MIN/1.73 M2 Electrolytes (02/12/2023) ???Sodium - 136 mmol/L???Potassium - 5.1 mmol/L???Chloride - 96 mmol/L???Bicarbonate Level - 29 mmol/L???Anion Gap - 11 GLUCOSE POC (02/15/2023) ???Glucose, POC - 120 mg/dL Lactate Level (02/13/2023) ???Lactate - 1.6 mmol/L Magnesium Level (02/15/2023) ???Magnesium - 2.1 mg/dL Phosphorus Level (02/15/2023) ???Phosphorus - 1.7 mg/dL Potassium Level (02/14/2023) ???Potassium - 5.1 mmol/L PROCALCITONIN, SERUM (02/13/2023) ???Procalcitonin - 0.34 ng/mL Allergies (NKA means No Known Allergies) Versed??(dyspnea, aggitation, throat closes up) gabapentin??(Agitation) sulfa drugs??(rash, C/O: itching) Latex??(itchiness) Toradol??(C/O: a rash) Problems Active Problems??(7) Biliary colic?? Depression?? Epileptic seizures?? Intractable diarrhea?? Morbid obesity?? Seizure?? Severe obesity?? Education Materials Below is the list of Educational Leaflet Providered with your Discharge Instructions. Neurosurgery-Lumbar Discharge Instructions?? Valuables and Belongings I fully understand and agree that [facility] accepts no responsibility for all my [...] List: With patient Disposition of Belongings: Other: pacu closet Date for Pt to Sign Valuables/Belongings: 02/14/23 18:30:00 ?? Other Discharge Information ?? Wound Assessment?? Wound Assessment?? Wound Location I: Chest, left anterior ? Pulmonary Rehab Status?? Pulmonary Rehab Discharge [...] are strongly encouraged to quit. Please call [facility] [employer] at [phone] or [phone]) or log in to [email or web address] for referrals to smoking cessation programs. ?? The National Suicide Prevention Hotline is available 09/06 if you or someone you know needs to find a reason to keep living. By calling 6-911-891-Hiveoo (0664) you'll be connected to a skilled, trained counselor at a crisis center in your area. INPATIENT DISCHARGE INSTRUCTIONS SIGNATURE PAGE KIRILL WEIR Location:[facility] Registration Date and Time:02/13/2023 14:57 EDT Primary Care Physician: Christopher RIDDLE, Tom Choudhury, I KIRILL WEIR, have received the above patient education materials/instructions and have verbalized understanding. If ambulance or transport services are being used I further acknowledge being given a choice of service. ?? If you need to contact me, please call me at this number: . 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 205 Neurosurgery Discharge Instructions ?? Postoperative instructions vary due to many different types of surgery.?? Your specific needs may require modifications to these instructions by your surgeon. ?? Diet ??? You should resume your usual diet at home unless instructed otherwise ?? Medications ??? You will be provided with a medication reconciliation when you leave the hospital explaining which medications you should continue and which you should stop ??? You may be discharged home with prescriptions with new medications which should be explained to you prior to discharge ?? Bowel Regimen ??? Narcotic pain medications commonly cause constipation ??? You should use an rwql-[id number]-qkicylk stool softener, such as Colace or Senna, for as long as you are experiencing constipation ??? You should use an rlja-qri-cspeyzj oral laxative or rectal suppository if you do not have a bowel movement within 3 days after your surgery ?? Incision and Wound Care ??? You should remove your dressing on the 3rd postoperative day ??? You do not need to apply any other dressing or bandage ??? Do not apply creams, lotions, or ointments to the incision ??? If you have steri-strips, these will fall off on their own ??? * Remove after 2 weeks if they have not fallen off yet ??? If you have shanna/sutures, these will be removed at your follow up appointment ??? Yo u should call the office if you experience any of the following: ??? Redness, swelling, or increasing pain/tenderness of the surgical incision site ??? Discharge of pus, blood, or other fluid from the surgical incision site ??? Wound separation ??? Temperature greater than 101.5 F ?? Bathing ??? Do not shower or get your incision wet until the 3rd postoperative day ??? Do not soak the incision in a bath, pool or any other body of water for 4 weeks ??? You should gently pat the incision dry with a towel immediately after bathing ? Activity ??? Do not drive for 2 weeks unless instructed otherwise ??? Do not drive while taking narcotic pain medication or muscle relaxants ??? Do not lift more than 15 to 20 lbs until seen again by your surgeon ??? Do not perform any strenuous activities, exercises or movements until instructed otherwise ??? Do not resume sexual activity until you feel comfortable.?? Do not perform activities or positions that place stress on the operated area ??? _ ??? Call your primary care physician for all questions and problems not related to your surgery, such as chronic medical conditions, e.g., diabetes, hypertension, etc. ??? Call [facility] neurosurgery for any questions or problems related to your surgery??? _ [facility] Neurosurgery [address] [place] [address] , [address], [place], [place] [phone] _ ? * [employer] , CIS S: TRANSCRIBE Soni More MD: VERIFY Event Display: Result: Authored Date: Chest 2 Views Frontal and Lat Reason: Shortness of Breath; F u on previous XR, r o pneumonia, atelactasis; Clinical Question(s): Pneumonia COMPARISON: 02/12/2023 FINDINGS: LINES AND TUBES: Device projects at the left chest with leads extending towards the left neck. LUNGS AND PLEURA: Diffuse prominence of the interstitium, slightly increased in the upper lungs. Asymmetric opacity in the left lower lobe has resolved, likely atelectasis. Trace right pleural fluid. No left pleural effusion. No pneumothorax. HEART, MEDIASTINUM AND SHAILESH: Cardiomegaly. Enlarged central pulmonary arteries. BONES AND SOFT TISSUES: No acute abnormality. IMPRESSION: Mild interstitial pulmonary edema, slightly increased. Trace right pleural effusion. WSN: [id number] Ordering Physician: Rohith Stephens Dictated By: Soni More MD Dictated Date/Time: 02/13/23 4:43 pm Reviewed By: Soni More MD Signed By: Soni More MD Signed Date/Time: 02/13/23 4:43 pm Transcribed By: DEION Transcribed Date/Time: 02/13/23 4:41 pm * Event Display: Adult Preadmission Health Questionnaire Authored Date: * Event Display: Adult Preadmission Health Questionnaire Authored Date: EKG study * Event Display: ECG 12-Lead Authored Date: Please click on pdf link to open report * Event Display: ECG 12-Lead Authored Date: Ventricular Rate: 113 BPM Atrial Rate: 113 BPM P-R Interval: 134 ms QRS Duration: 76 ms Q-T Interval: 362 ms QTC Calculation(Bazett): 496 ms P Bowler: 60 degrees R Bowler: 55 degrees T Bowler: -12 degrees Sinus tachycardia Nonspecific ST and T wave abnormality Abnormal ECG When compared with ECG of 12-FEB-2023 20:22, Nonspecific T wave abnormality has replaced inverted T waves in Inferior leads Nonspecific T wave abnormality has replaced inverted T waves in Anterior leads Confirmed by GENEVIEVE COLIN ([id number]) on 02/14/2023 7:45:05 AM Orient: GENEVIEVE COLIN * Event Display: ECG 12-Lead Authored Date: Please click on pdf link to open report * Event Display: ECG 12-Lead Authored Date: Ventricular Rate: 110 BPM Atrial Rate: 110 BPM P-R Interval: 132 ms QRS Duration: 84 ms Q-T Interval: 370 ms QTC Calculation(Bazett): 500 ms P Bowler: 64 degrees R Bowler: 56 degrees T Bowler: -11 degrees Critical Test Result: Long QTc Sinus tachycardia Possible Left atrial enlargement ST and T wave abnormality, consider inferior ischemia ST and T wave abnormality, consider anterior ischemia Abnormal ECG When compared with ECG of 27-JAN-2023 07:56, ST now depressed in Lateral leads T wave inversion now evident in Anterior leads Confirmed by GENEVIEVE COLIN ([id number]) on 02/13/2023 1:54:50 PM Orient: GENEVIEVE COLIN Hospital Progress note * Lynnette Maharaj RN: PERFORM, SIGN, VERIFY Event Display: Progress Note Hospital Authored Date: Patient: KIRILL WEIR Age: 37 years Sex: Female : 1985 Associated Diagnoses: None Author: Lynnette Maharaj RN Findings Problem Related to Alteration in Comfort : Alteration in Comfort/new 02/15/2023 14:00 EDT Alteration in Comfort Related to Surgery Goals & Outcomes: Comfort Pt will report acceptable level of comfort & pain control, Pt will state importance of adhering to pain strategy regime, Pt will demonstrate necessary skills to manage pain, Non-verbal indicators will indicate comfort/pain control, Resolved problem, Goals/Outcomes met Interventions Implemented: Comfort Assess pain using appropriate pain scale/tools, Assess aggravating factors & prevent them accordingly, Assess alleviating factors & promote them accordingly Goals/Interventions, Comfort Yes Comfort, Problem Start 02/12/2023 21:00 Reviewed plan with, Comfort Patient Patient Progression, Comfort Pt progressing according to plan Comfort, Problem Ongoing Yes . Alteration in Neurological : Alteration in Neurological Function/new 02/15/2023 14:00 EDT Alteration in Neuro status Related to Neurology Procedure Goals & Outcomes, Neurological Lab studies/diagnostic tests within pt specific limits, Pt is safe with transfers & activities, Pt will be discharged without infection, Pt will be hemodynamically stable, Pt will be Neurologically stable, Pt will become pain free with appropriate intervention, Pt will maintain intact skin integrity, Pt will remain free from injury, Pt will resume/maintain ad equate cardiac output, Pt will state importance of adhering to medication regime, Pt/caregiver willreceive psychosocial support as needed, Pt/caregiver will state understanding of rehab plan, Pt/caregiver will state strategies to reduce risk factors, Pt/caregiver will state understanding aspiration precautions, Pt/caregiver will state understanding dietary modifications, Pt/caregiver will state understanding of disease process, Pt/caregiver will state understanding of plan/goals of care, Pt/caregiver will state understanding of the D/C plan Interventions, Neurological Assess/monitor for abnormal posturing, Assess/monitor neurologic status, Assess/monitor VS per unit standards & prn, Call/Report variances in assessments to provider, Maintain normothermia, report temp >101.5 F, Maintain patient safety if unsteady gait, Maintain strict intake & output, Monitor Fluid & Electrolytes, Serum Osmolarity, Monitor for headaches, nausea, vomiting, Monitor speech fluency, aphasia, word finding difficulty, Physical assessment per unit standards, Provide emotional support to Pt/caregiver, Minimize neuro stimulation Goals/Interventions, Neurological Yes Neurological, Problem Start 02/11/2023 17:34 Reviewed plan with, Neurological Patient Patient Progression, Neurological Pt progressing according to plan . Nursing Data Vital Signs : VITAL SIGNS SECTION 02/15/2023 8:00 EDT Temperature 97.5 DegF Temperature Route Oral Pulse Rate 87 bpm Respiratory Rate 18 br/min Systolic Blood Pressure 140 mm Hg H Diastolic Blood Pressure 82 mm Hg Blood pressure sites Arm, left Pulse Pressure 58 mm Hg Oxygen Saturation 95 % Mode of Delivery (Oxygen) Room air . Evaluation (Patient is A&O X4 - see biophysical for full assessment. Patient given Lokelma thisAM for potassium - see CIS. Patient is on a renal diet, tolerating well. No acute changes this shift. IV removed. Patient was discharged home without services - belongings sent with patient upon discharge.) Discharge Information Case Management Discharge Plan : Case Management Discharge Plan Data 02/15/2023 14:46 EDT Discharge Level of Care at Discharge Home/Intermediate/Foster Care * Tyson Varner MD: PERFORM, SIGN, VERIFY Event Display: Progress Note Hospital Authored Date: [id number] Patient: KIRILL WEIR Age: 37 years Sex: Female : 1985 Associated Diagnoses: None Author: Tyson Varner MD No new renal issues developed overnight. Review of Systems Review of Systems Constitutional: no complaints. Respiratory: no shortness of breath. Cardiovascular: no peripheral edema, no chest pain. Gastrointestinal: no abdominal pain. Physical Examination Vitals Vitals : VITAL SIGNS SECTION 02/15/2023 4:00 EDT Temperature 98.2 DegF Temperature Route Oral Pulse Rate 77 bpm Respiratory Rate 17 br/min Systolic Blood Pressure 159 mm Hg H Diastolic Blood Pressure 90 mm Hg H Blood pressure sites Arm, right Pulse Pressure 69 mm Hg Oxygen Saturation 96 % Mode of Delivery (Oxygen) Room air . General Appearance No apparent distress. HEENT Moist mucous membranes. Respiratory Lungs: no rhonchi. Cardiac No pericardial rub. Abdomen/GI Soft. Non-tender. Extremities Normal. Neurologic Alert. Results Review General results Most recent results All : ALL RESULT SECTIONS 02/15/2023 5:42 EDT Sodium 142 mmol/L Potassium 5.1 mmol/L Chloride 106 mmol/L Bicarbonate Level 28 mmol/L Anion Gap 8 Glucose Level 129 mg/dL H BUN 19 mg/dL Creatinine-Blood 0.7 mg/dL 02/14/2023 4:39 EDT Creatinine-Blood 2.4 mg/dL H 02/13/2023 9:09 EDT Creatinine-Blood 3.6 mg/dL H 02/12/2023 21:18 EDT Creatinine-Blood 2.4 mg/dL H Impression and Plan Ms. Weir is a 37-year-old female with a history of epilepsy, DM2, Fibromyalgia, Bipolar disorder, IBS, Migraines, and morbid obesity who presented to [facility] on 02/11 for VNS implant replacement complicated by acute kidney injury likely on the basis of hypoperfusion injury. At this point her currentmedical issues include 1. Acute kidney injury secondary to hypoperfusion-the patient remains nonoliguric with a rapid improvement in her renal function as noted by today's serum creatinine. At this point I do not feel the patient requires any significant additional renal intervention other than serial renal function measu res and determination of her serum potassium. I would ignore her minimal potassium elevation today and repeat tomorrow to ensure that there is no additional need for binder therapy. * Ada Newby RN: PERFORM, SIGN, VERIFY Event Display: Progress Note Hospital Authored Date: Patient: KIRILL WEIR Age: 37 years Sex: Female : 1985 Associated Diagnoses: None Author: Ada Newby RN Findings Narrative/Incidental Patiemt arrived on unit at 1819. Patient alert and oriented. Oriented to room and safety measures. 2 RN skin assessment completed with Prachi CORNELL. Slight redness noted under left breast and bilateral groin area. No open areas. Patient on 2L O2. No distress noted. Safety measures maintained.. Portable XR Chest Views * BHSPowerscribe , CIS S: TRANSCRIBE Felipe Bautista MD: VERIFY Event Display: Result: Authored Date: Chest Portable Reason: Shortness of Breath; Clinical Question(s): Other: COMPARISON: 01/22/2023 and 10/13/2022 FINDINGS: LINES AND TUBES: Left vagal nerve stimulator reidentified. LUNGS AND PLEURA: Increased density in the left lung base could be related to technique but underlying left basilar airspace disease cannot be excluded. Right lung is clear. HEART, MEDIASTINUM AND SHAILESH: Similar to the prior study. BONES AND SOFT TISSUES: No acute abnormality. IMPRESSION: Increased density in the left lung base could be artifactual due to technique but if there is concern for a left lower lobe consolidation, consider a lateral view. WSN: [id number] Ordering Physician: Maria Fernanda Vilchis Dictated By: Felipe Bautista MD Dictated Date/Time: 02/12/23 10:40 p Reviewed By: Felipe Bautista MD Signed By: Felipe Bautista MD Signed Date/Time: 02/12/23 10:40 pm Transcribed By: DEION Transcribed Date/Time: 02/12/23 10:39 pm Patient Care team information Care Team Personnel Name: Michelle Fox RN Position: S RN Member Role: Primary Care Nurse Name: Nyasia Cadet NP Position: [facility] Associate Professional Member Role: Primary Care Nurse Address: Address: [address] [place] [phone]- Name: Roni Hunt RN Position: S RN Member Role: Primary Care Nurse Name: Roya Jaramillo RN Position: S RN Member Role: Primary Care Nurse Name: Steve Rose RN Position: S RN Member Role: Primary Care Nurse Name: Tamika Mcguire RN Position: [facility] AMB Nurse Member Role: Primary Care Nurse Name: My Fonseca NP Position: [facility] Associate Professional Member Role: Lifetime Consulting Provider Address: Address: [address] [place] [address] [facility] [place] [address]- Name: Gomez Daugherty RN Position: S RN Member Role: Primary Care Nurse Name: Paolo Patterson RN Position: S RN Member Role: Primary Care Nurse Name: Clarisa Mederos RN Position: S RN Member Role: Primary Care Nurse Name: Loreta Pitts RN Position: S RN Member Role: Primary Care Nurse Name: Tom White MD Position: Reference Physician Member Role: PCP Address: Address: [address] [place] [address] [place] [address]- Name: Philomena Benavides RN Position: S RN Member Role: Primary Care Nurse Name: Cortney Benavides RN Position: S RN Member Role: Primary Care Nurse Name: Gloria Mims RN Position: [facility] RN Member Role: Primary Care Nurse Name: Stefany Lewis RN Position: [facility] ED RN W/OE and Tasks Member Role: Primary Care Nurse Name: Chiquita Cuevas RN Position: [facility] RN Member Role: Primary Care Nurse Name: Stefany Hamilton RN Position: [facility] Laser Beam Cutter Member Role: Primary Care Nurse Name: Dee Davila RN Position: [facility] RN Member Role: Primary Care Nurse Name: Natalie Lopez RN Position: [facility] RN Member Role: Primary Care Nurse Name: Juan Diego Anguiano RN Position: [facility] RN Member Role: Primary Care Nurse Address: Address: [address] [place] [id number] Name: Iwona Jones RN Position: [facility] RN Member Role: Primary Care Nurse Name: Angelika Villa RN Position: [facility] RN Member Role: Primary Care Nurse Name: Brandi Holman RN Position: [facility] OB RN Member Role: Primary Care Nurse Name: Candi Moore RN Position: [facility] SN RN Member Role: Primary Care Nurse Name: Stacy Yadav RN Position: [facility] Laser Beam Cutter Member Role: Primary Care Nurse Name: Naveen RN [place] Position: [facility] SN RN Member Role: Primary Care Nurse Name: Lexis Byers RN Position: [facility] RN Member Role: Primary Care Nurse Care Team Related Persons Name: XIOMARA HARRELLLUANN Address: home [address] [place] [address] Name: RAMÓN CARTAGENA Address: [place] [address] Name: LING WEIR Address: home [address] [place] [address]
--- OUTSIDE RECORDS SUMMARY | 2023-10-13 11:45 | XMS_ITS | Continuity of Care Document ---
Author Name Unknown Organization [facility] Address [address], [address] Floor, [address] [place] [address]- Care Team Providers Care Offal Trimmer Name Role Phone Christopher RIDDLE, Tom Choudhury Primary Care Physician Encounter [facility] Date(s): 09/25/22 - 10/25/22 [facility] [address], [address], [address] [place] [id number] Allergies, Adverse Reactions, Alerts Substance Reaction [...] 08/26/22 Recorded pneumococcal 23-valent vaccine 04/10/17 Given [id number] 12y+ bivalent booster vax 2 08/26/22 Recorded SARS-CoV-2 (COVID-19) mRNA BNT-162b2 vac 10/19/21 Recorded SARS-CoV-2 (COVID-19) mRNA BNT-162b2 vac 04/07/21 Recorded SARS-CoV-2 (COVID-19) mRNA BNT-162b2 vac 03/17/21 Recorded influenza virus vaccine, inactivated 08/12/21 Gentry rded Not Given Vaccine Date Status Refusal Reason influenza virus vaccine, inactivated 08/23/20 Not Given Parent Or Guardian Refuses 1Result Comment: .5ML IM/LD Lot [id number] [employer] D Exp 08.16.2023 [facility] [phone] 2Result Comment: .3Ml IM/ LD Lot [id number] Exp 10.01.2022 [facility] [phone] Medications acetaminophen 500 mg oral capsule 2 capsule = 1,000 mg, By Mouth, Every 6 hours, PRN Pain, # 24 capsule, 0 Refills, Maintenance, 10/13/22 7:38:00 EST, [facility]/pharmacy #1234, Partial fill upon patient request [...] at bedtime, # 30 capsule, 11 Refills, [facility] ST[facility] [id number], 173, cm, 05/06/2213:26:00 EDT, Height, 146, kg, 05/06/22 13:26:00 EDT, Dry Weight Start Date: 07/01/22 Status: Ordered carBAMazepine 300 mg oral capsule, extended release 2 capsule, By Mouth, 2 times a day, # 120 capsule, 11 Refills, [facility] ST[facility] 12032, 173, cm, 05/06/22 13:26:00 EDT, Height, 146, [...] tablet, 0 Refills, Maintenance, 10/18/22 16:12:00 EST, [facility] STORE [id number], 173, cm, 10/13/22 7:56:00 EST, Height, 155, kg, 10/13/22 7:56:00 EST, Dry Weight Start Date: 10/18/22 Status: Ordered Flexeril 10 mg oral tablet [...] 09/05/22 16:04:00 EDT, Route to Pharmacy Electronically, [facility] 13290, 173, cm, 05/06/2213:26:00 EDT, Height, 146, kg, 05/06/22 13:26:00 ED... Start Date: 09/05/22 Status: Ordered LORazepam 2 mg oral tablet 1 tablet = 2 mg, By Mouth, Daily at bedtime, for 30 days, MassPat checked, # 30 tablet, 5 Refills, Acute 03/24/23 18:15:00 EDT, 09/25/22 18:15:00 EST, [facility]/pharmacy #1234, 175, cm, 09/15/22 [...] tablet, 1 Refills, Maintenance, 08/26/22 8:54:00 EDT, [facility]/pharmacy #1234, 173, cm, 05/06/22 [...] 5 Refills, Maintenance, 09/23/22 14:32:00 EST, Tablet, [facility]/pharmacy #1234, 175, cm, 09/15/22 [...] 11 Refills, Maintenance, 02/07/22 15:14:00 EDT, Capsule, [facility], 175, cm, 01/25/22 8:53:00 EST, Height, [...] Personnel Name: Michelle Fox RN Position: [facility] RN Member Role: Primary Care Nurse Name: Nyasia Cadet NP Position: [facility] Associate Professional Member Role: Primary Care Nurse Address: Address: [address] [place] [address]- Name: Roya Jaramillo RN Position: [facility] RN Member Role: Primary Care Nurse Name: Steve Rose RN Position: [facility] RN Member Role: Primary Care Nurse Name: Tamika Mcguire RN Position: [facility] AMB Nurse Member Role: Primary Care Nurse Name: Gomez Daugherty RN Position: [facility] RN Member Role: Primary Care Nurse Name: Paolo Patterson RN Position: [facility] RN Member Role: Primary Care Nurse Name: Clarisa Mederos RN Position: [facility] RN Member Role: Primary Care Nurse Name: Loreta Pitts RN Position: [facility] RN Member Role: Primary Care Nurse Name: Tom White MD Position: Reference Physician Member Role: PCP Address: Address: [address] [place] [address] [place] [address]- Name: Philomena Benavides RN Position: [facility] RN Member Role: Primary Care Nurse Name: Cortney Benavides RN Position: [facility] RN Member Role: Primary Care Nurse Name: Stefany Lewis RN Position: [facility] ED RN W/OE and Tasks Member Role: Primary Care Nurse Name: Chiquita Cuevas RN Position: [facility] RN Member Role: Primary Care Nurse Name: Stefany Hamilton RN Position: [facility] Lime Burner Member Role: Primary Care Nurse Name: Dee Davila RN Position: [facility] RN Member Role: Primary Care Nurse Name: Natalie Lopez RN Position: [facility] RN Member Role: Primary Care Nurse Name: Juan Diego Anguiano RN Position: [facility] RN Member Role: Primary Care Nurse Address: Address: [address] [place] [id number] Name: Iwona Jones RN Position: [facility] RN Member Role: Primary Care Nurse Name: Angelika Villa RN Position: [facility] RN Member Role: Primary Care Nurse Name: Brandi Holman RN Position: [facility] RN Member Role: Primary Care Nurse Name: Candi Moore RN Position: [facility] SN RN Member Role: Primary Care Nurse Name: Stacy Yadav RN Position: [facility] Lime Burner Member Role: Primary Care Nurse Name: Kenney Hodge RN Position: [facility] SN RN Member Role: Primary Care Nurse Care Team Related Persons Name: RAMÓN HARRELL Address: home [address] [place] [address] Name: RAMÓN CARTAGENA Address: [place] [address] Name: LING WEIR Address: home [address] [place] [address]
--- OUTSIDE RECORDS SUMMARY | 2023-10-13 11:45 | XMS_ITS | Continuity of Care Document ---
Author Name Unknown Organization [facility] Address [address] [facility], [address] Floor, [address] [place] [id number]- Care Team Providers Care Water Quality Control Engineer Name Role Phone Christopher RIDDLE, Tom Choudhury Primary Care Physician [facility] [place]s[facility] 11/28/22 - 12/28/22 [facility] [address], [address], [address] [place] [id number] Allergies, Adverse Reactions, Alerts [...] 08/26/22 Recorded pneumococcal 23-valent vaccine 04/10/17 Given [id number] 12y+ bivalent booster vax 2 08/26/22 Recorded SARS-CoV-2 (COVID-19) mRNA BNT-162b2 vac 10/19/21 Recorded SARS-CoV-2 (COVID-19) mRNA BNT-162b2 vac 04/07/21 Recorded SARS-CoV-2 (COVID-19) mRNA BNT-162b2 vac 03/17/21 Recorded influenza virus vaccine, inactivated 08/12/21 Gentry rded Not Given Vaccine Date Status Refusal Reason influenza virus vaccine, inactivated 08/23/20 Not Given Parent Or Guardian Refuses 1Result Comment: .5ML IM/LD Lot [id number] [employer] D Exp 08.16.2023 [facility] [phone] 2Result Comment: .3Ml IM/ LD Lot [id number] Exp 10.01.2022 [facility] [phone] Medications budesonide 3 mg oral delayed release capsule See Instructions, TAKE 3 TABLETS DAILY X3 WEEKS THEN 2 TABS DAILY X3 WEEKS THEN 1 TAB DAILY X2 WEEKS THEN STOP, # 77 capsule, 2 Refills, Maintenance, 12/24/22 8:57:00 EST, [facility] STORE 19802, 175, cm, 12/22/22 3:33:00 EST, Height, 163.5, kg, 12/17/22 13:... Start Date: 12/24/22 Status: Ordered busPIRone 7.5 mg oral tablet 1 tablet = 7.5 mg, By Mouth, 2 times a day Start Date: 11/25/22 Status: Ordered dicyclomine 20 mg oral tablet 1 tablet, By Mouth, 3 times a day, # 90 tablet, 0 Refills, Maintenance, 12/09/22 14:29:00 EST, [facility]/pharmacy #1234, 175, cm, 11/27/22 15:01:00 EST, Height, [...] 11/27/22 13:43:00 EST, Route to Pharmacy Electronically, [facility], Partial fill upon patient request if the prescription is for a schedule II opioi... Start Date: 11/27/22 Status: Ordered loperamide 2 mg oral capsule 1, capsule, By Mouth, Every 4 hours, PRN, # 60 capsule, Refills 0, Tot. Refills 0, Maintenance, NEEDED FOR LOOSE STOOLS, 12/09/22 14:29:00 EST, Route to Pharmacy Electronically, [facility]/pharmacy #1234, 175, cm, 11/27/22 15:01:00 EST, Height, 163.5, kg,... Start Date: 12/09/22 Status: Ordered LORazepam 2 mg oral tablet 1 tablet = 2 mg, By Mouth, Daily at bedtime, for 30 days, MassPat checked, # 30 tablet, 5 Refills, Acute 03/24/23 18:15:00 EDT, 09/25/22 18:15:00 EST, [facility]/pharmacy #1234, 175, cm, 09/15/22 17:17:00 EDT, Height, [...] tablet, 1 Refills, Maintenance, 08/26/22 8:54:00 EDT, [facility]/pharmacy #1234, 173, cm, 05/06/22 13:26:00 EDT, Height, 146, kg, 05/06/22 13:26:00 EDT,... Start Date: 08/26/22 Status: Ordered ondansetron 4 mg oral tablet 1 tablet = 4 mg, By Mouth, Every 8 hours, PRN Nausea & Vomiting, # 10 tablet, 0 Refills, Maintenance, 11/27/22 13:45:00 EST, Tablet, [facility], Partial fill upon [...] 5 Refills, Maintenance, 09/23/22 14:32:00 EST, Tablet, [facility]/pharmacy #1234, 175, cm, 09/15/22 17:17:00 EDT, Height, [...] List Condition Confirmation Course Effective Dates Status [facility] Depression Confirmed Active Intractable diarrhea [...] Team Personnel Name: Michelle Fox RN Position: [facility] RN Member Role: Primary Care Nurse Name: Nyasia Cadet NP Position: [facility] Associate Professional Member Role: Primary Care Nurse Address: Address: [address] [place] [phone]- [place] Name: Roni Hunt RN Position: [facility] RN Member Role: Primary Care Nurse Name: Roya Jaramillo RN Position: [facility] RN Member Role: Primary Care Nurse Name: Steve Rose RN Position: [facility] RN Member Role: Primary Care Nurse Name: Tamika Mcguire RN Position: [facility] AMB Nurse Member Role: Primary Care Nurse Name: Gomez Daugherty RN Position: [facility] RN Member Role: Primary Care Nurse Name: Paolo Patterson RN Position: [facility] RN Member Role: Primary Care Nurse Name: Clarisa Mederos RN Position: [facility] RN Member Role: Primary Care Nurse Name: Loreta Pitts RN Position: [facility] RN Member Role: Primary Care Nurse Name: Tom White MD Position: Reference Physician Member Role: PCP Address: Address: [address] [place] [address]- Name: Philomena Benavides RN Position: [facility] RN Member Role: Primary Care Nurse Name: Cortney Benavides RN Position: [facility] RN Member Role: Primary Care Nurse Name: Stefany Lewis RN Position: [facility] ED RN W/OE and Tasks Member Role: Primary Care Nurse Name: Adia Cuevas RN Position: [facility] RN Member Role: Primary Care Nurse Name: Stefany Hamilton RN Position: [facility] Social Welfare Research Worker Member Role: Primary Care Nurse Name: Dee Davila RN Position: [facility] RN Member Role: Primary Care Nurse Name: Natalie Lopez RN Position: [facility] RN Member Role: Primary Care Nurse Name: Juan Diego Anguiano RN Position: [facility] RN Member Role: Primary Care Nurse Address: Address: [address] [place] [phone]- [place] Name: Iwona Jones RN Position: [facility] RN Member Role: Primary Care Nurse Name: Angelika Villa RN Position: [facility] RN Member Role: Primary Care Nurse Name: Brandi Holman RN Position: [facility] RN Member Role: Primary Care Nurse Name: Candi Moore RN Position: [facility] RN Member Role: Primary Care Nurse Name: Stacy Yadav RN Position: [facility] Social Welfare Research Worker Member Role: Primary Care Nurse Name: Kenney Hodge RN Position: [facility] SN RN Member Role: Primary Care Nurse Name: Lexis Byers Position: [facility] RN Member Role: Primary Care Nurse Care Team Related Persons Name: JULIO CESAR ADIABASSAM Address: home [address] [place] [address] Name: RAMÓN CARTAGENA Address: home [place], [place] Name: LING WEIR Address: home [address] [place] [address] [address] [place] [address]
--- OUTSIDE RECORDS SUMMARY | 2023-10-13 11:45 | XMS_ITS | Continuity of Care Document ---
Author Name Unknown Organization [facility] Address [address] [place] [address]- Care Team Providers Care Parking Assistant Name Role Phone Christopher RIDDLE, Tom Choudhury Primary Care Physician Encounter [facility] Date(s): 01/26/23 - 03/01/23 [facility] [address], [place] [address] Attending Physician: Danilo Solorio MD Admitting Physician: Danilo Solorio MD Referring Physician: Ronnie Boyle MD Allergies, [...] 08/26/22 Recorded pneumococcal 23-valent vaccine 04/10/17 Given [id number] 12y+ bivalent booster vax 2 08/26/22 Recorded SARS-CoV-2 (COVID-19) mRNA BNT-162b2 vac 10/19/21 Recorded SARS-CoV-2 (COVID-19) mRNA BNT-162b2 vac 04/07/21 Recorded SARS-CoV-2 (COVID-19) mRNA BNT-162b2 vac 03/17/21 Recorded influenza virus vaccine, inactivated 08/12/21 Gentry rded Not Given Vaccine Date Status Refusal Reason influenza virus vaccine, inactivated 08/23/20 Not Given Parent Or Guardian Refuses 1Result Comment: .5ML IM/LD Lot [id number] [facility] D Exp 9.30.2023 [facility] [phone] 2Result Comment: .3Ml IM/ LD Lot [id number] Exp 10.01.2022 [facility] [phone] Medications budesonide 3 mg oral delayed release capsule See Instructions, TAKE 3 TABLETS DAILY X3 WEEKS THEN 2 TABS DAILY X3 WEEKS THEN 1 TAB DAILY X2 WEEKS THEN STOP, # 77 capsule, 2 Refills, Maintenance, 12/24/22 8:57:00 EST, [email or web address] STORE 44186, 175, cm, 12/22/22 3:33:00 EST, Height, 163.5, kg, 12/17/22 13:... Start Date: 12/24/22 Status: Ordered busPIRone 7.5 mg oral tablet 1 tablet = 7.5 mg, By Mouth, 2 times a day Start Date: 11/25/22 Status: Ordered dicyclomine 20 mg oral tablet 1 tablet, By Mouth, 3 times a day, # 90 tablet, 0 Refills, Maintenance, 02/24/23 8:38:00 EDT, [facility] STORE 64742, 173, cm, 01/27/23 8:03:00 EDT, Height, 164.8, kg, 02/11/23 10:22:00 EDT, Dry Weight Start Date: 02/24/23 Status: Ordered docusate sodium 100 mg oral capsule 100 mg, 1, capsule, By Mouth, 2 times a day, # 20 capsule, Refills 0, Tot. Refills 0, Maintenance, 01/07/23 16:27:00 EST, Route to Pharmacy Electronically, [facility], Partial fill uponpatient [...] 11/27/22 13:43:00 EST, Route to Pharmacy Electronically, [facility] 3, Partial fill upon patient request if the prescription is for a schedule II opioi... Start Date: 11/27/22 Status: Ordered loperamide 2 mg oral capsule 1, capsule, By Mouth, Every 4 hours, PRN, # 60 capsule, Refills 0, Maintenance, NEEDED FOR LOOSESTOOLS, 02/24/23 15:54:00 EDT, Route to Pharmacy Electronically, [facility] STORE 84851, 173, cm, 02/25/2312:35:00 EDT, Height, 164.8, kg, 02/11/23 10:22:00... Start Date: 02/24/23 Status: Ordered LORazepam 2 mg oral tablet 1 tablet = 2 mg, By Mouth, Daily at bedtime, for 30 days, MassPat checked, # 30 tablet, 5 Refills, Acute 03/24/23 18:15:00 EDT, 09/25/22 18:15:00 EST, [facility]/pharmacy #1234, 175, cm, 09/15/22 17:17:00 EDT, Height, [...] tablet, 1 Refills, Maintenance, 08/26/22 8:54:00 EDT, [facility]/pharmacy #1234, 173, cm, 05/06/22 13:26:00 EDT, Height, 146, kg, 05/06/22 13:26:00 EDT,... Start Date: 08/26/22 Status: Ordered ondansetron 4 mg oral tablet 1 tablet = 4 mg, By Mouth, Every 8 hours, PRN Nausea & Vomiting, # 15 tablet, 0 Refills, Maintenance, 01/07/23 16:25:00 EST, Tablet, [facility] 3, Partial fill upon patient request ifthe [...] 5 Refills, Maintenance, 09/23/22 14:32:00 EST, Tablet, [facility]/pharmacy #1234, 175, cm, 09/15/22 17:17:00 EDT, Height, [...] Team Personnel Name: Michelle Fox RN Position: [facility] RN Member Role: Primary Care Nurse Name: Nyasia Cadet NP Position: [facility] Associate Professional Member Role: Primary Care Nurse Address: Address: [address] [place] [address]- Name: Roni Hunt RN Position: [facility] RN Member Role: Primary Care Nurse Name: Roya aJramillo RN Position: [facility] RN Member Role: Primary Care Nurse Name: Steve Rose RN Position: [facility] RN Member Role: Primary Care Nurse Name: Tamika Mcguire RN Position: [facility] [place]O Nurse Member Role: Primary Care Nurse Name: My Fonseca NP Position: [facility] Associate Professional Member Role: Lifetime Consulting Provider Address: Address: [address] [place], [place] [address] [place] [address]- Name: Gomez Daugherty RN Position: S RN Member Role: Primary Care Nurse Name: Paolo Patterson RN Position: [facility] RN Member Role: Primary Care Nurse Name: Clarisa Mederos RN Position: S RN Member Role: Primary Care Nurse Name: Loreta Pitts RN Position: [facility] RN Member Role: Primary Care Nurse Name: Tom White MD Position: Reference Physician Member Role: PCP Address: Address: [address] [place] [address] [place] [address]- Name: Philomena Benavides RN Position: [facility] RN Member Role: Primary Care Nurse Name: Cortney Benavides RN Position: [facility] RN Member Role: Primary Care Nurse Name: Gloria Mims RN Position: [facility] RN Member Role: Primary Care Nurse Name: Stefany Lewis RN Position: [facility] ED RN W/OE and Tasks Member Role: Primary Care Nurse Name: Chiquita Cuevas RN Position: [facility] RN Member Role: Primary Care Nurse Name: Stefany Hamilton RN Position: [facility] Protein Specialist Member Role: Primary Care Nurse Name: Dee Davila RN Position: [facility] RN Member Role: Primary Care Nurse Name: Natalie Lopez RN Position: [facility] RN Member Role: Primary Care Nurse Name: Juan Diego Anguiano RN Position: [facility] RN Member Role: Primary Care Nurse Address: Address: [address] [place] [address] Name: Iwona Jones RN Position: [facility] RN Member Role: Primary Care Nurse Name: Angelika Villa RN Position: [facility] RN Member Role: Primary Care Nurse Name: Brandi Holman RN Position: [facility] OB RN Member Role: Primary Care Nurse Name: Candi Moore RN Position: [facility] SN RN Member Role: Primary Care Nurse Name: Stacy Yadav RN Position: [facility] Protein Specialist Member Role: Primary Care Nurse Name: Kenney Hodge RN Position: [facility] SN RN Member Role: Primary Care Nurse Name: Lexis Byers RN Position: [facility] RN Member Role: Primary Care Nurse Care Team Related Persons Name: XIOMARA HARRELLLUANN Address: home [address] [place] [address] Name: RAMÓN CARTAGENA Address: [place] [address] Name: LING WEIR Address: home [address] [place] [address]
--- OUTSIDE RECORDS SUMMARY | 2023-10-13 11:46 | XMS_ITS | Continuity of Care Document ---
Author Name Unknown Organization [facility] Kelly sherrie Address [address] [place] [address] [address] [place] [address]- Care Team Providers Care Customer Service Attendant Name Role Phone Christopher RIDDLE, Tom Choudhury Primary Care Physician [phone] Encounter [facility] Date(s): 06/09/23 - 07/09/23 [facility] [address] [place], [place] [address] Attending Physician: Josemanuel Galvez Admitting Physician: AdmJosemanuel saenz Referring Physician: Admtr, Ar8 Allergies, Adverse Reactions, [...] 08/26/22 Recorded pneumococcal 23-valent vaccine 04/10/17 Given [id number] 12y+ bivalent booster vax 2 08/26/22 Recorded SARS-CoV-2 (COVID-19) mRNA BNT-162b2 vac 10/19/21 Recorded SARS-CoV-2 (COVID-19) mRNA BNT-162b2 vac 04/07/21 Recorded SARS-CoV-2 (COVID-19) mRNA BNT-162b2 vac 03/17/21 Recorded influenza virus vaccine, inactivated 08/12/21 Gentry rded 1Result Comment: .5ML IM/LD Lot [id number] [facility] D Exp 08.16.2023 [facility] [phone] 2Result Comment: .3Ml IM/ LD Lot [id number] Exp 10.01.2022 [facility] [phone] Medications Albuterol (Eqv-ProAir HFA) Inhalation, Every 6 hours, 0 Refills, Maintenance, 04/10/23 13:27:00 EDT, Partial fill upon patientrequest if the prescription is for a schedule II opioid drug. Start Date: 04/10/23 Status: Ordered dicyclomine 20 mg oral tablet 1 tablet, By Mouth, 3 times a day, # 90 tablet, 0 Refills, Maintenance, 07/02/23 13:53:00 EDT, [facility] STORE 48491, 173, cm, 05/07/23 13:17:00 EDT, Height, 163.7, [...] 60 tablet, 1 Refills, Maintenance, 06/11/2313:31:00 EDT, [facility]/pharmacy #1234, 173, cm, 05/07/23 13:17:00 EDT, [...] 04/21/23 15:34:00 EDT, Route to Pharmacy Electronically, [facility]/pharmacy #1234, 173, cm, 04/10/23 13:09:00 EDT, [...] UNSATISFACTORY, # 12 tablet, 0 Refills, Maintenance, 06/23/23 9:54:00 EDT, [facility], 173, cm, 05/07/23 13:17:00 EDT, Height, 163.7... Start Date: 06/23/23 Status: Ordered Trulicity Pen 0.75 mg/0.5 mL [...] Member Role: Primary Care Nurse Address: Address: [address] [place] [address] Name: Roni Hunt RN Position: S RN Member Role: Primary Care Nurse Name: Roya Jaramillo RN Position: S RN Member Role: Primary Care Nurse Name: My Fonseca NP Position: S Associate Professional Member Role: Lifetime Consulting Provider Address: Address: [address] [place] [address] [address] [facility] [place] [address]- [place] Name: Gomez Daugherty RN Position: [facility] RN Member Role: Primary Care Nurse Name: Paolo Patterson RN Position: [facility] RN Member Role: Primary Care Nurse Name: Clarisa Mederos RN Position: [facility] RN Member Role: Primary Care Nurse Name: Loreta Pitts RN Position: [facility] RN Member Role: Primary Care Nurse Name: Tom White MD Position: Reference Physician Member Role: PCP Address: Address: [address] [place] [address] [place] [address]- [place] Name: Philomena Benavides RN Position: [facility] RN Member Role: Primary Care Nurse Name: Cortney Benavides RN Position: [facility] RN Member Role: Primary Care Nurse Name: Gloria Mims RN Position: [facility] RN Member Role: Primary Care Nurse Name: Stefany Lewis RN Position: [facility] ED RN W/OE and Tasks Member Role: Primary Care Nurse Name: Chiquita Cuevas RN Position: [facility] RN Member Role: Primary Care Nurse Name: Stefany Hamilton RN Position: [facility] Senior Technical Manager Member Role: Primary Care Nurse Name: Dee Davila RN Position: [facility] RN Member Role: Primary Care Nurse Name: Natalie Lopez RN Position: [facility] RN Member Role: Primary Care Nurse Name: Juan Diego Anguiano RN Position: [facility] RN Member Role: Primary Care Nurse Address: Address: [address] [place] [address]- Name: Iwona Jones RN Position: [facility] RN Member Role: Primary Care Nurse Name: Angelika Villa RN Position: [facility] RN Member Role: Primary Care Nurse Name: Brandi Holman RN Position: [facility] OB RN Member Role: Primary Care Nurse Name: Candi Moore RN Position: [facility] SN RN Member Role: Primary Care Nurse Name: Stacy Yadav RN Position: [facility] Senior Technical Manager Member Role: Primary Care Nurse Name: Kenney Hodge RN Position: [facility] SN RN Member Role: Primary Care Nurse Name: Lexis Byers RN Position: [facility] RN Member Role: Primary Care Nurse Care Team Related Persons Name: RAMÓN HARRELL Address: home [address] [place] [address] Name: RAMÓN CARTAGENA Address: [place] [address] Name: LING WEIR Address: home [address] [place] [address]
--- OUTSIDE RECORDS SUMMARY | 2023-10-13 11:46 | XMS_ITS | Continuity of Care Document ---
Author Name Unknown Organization [facility] Address [address] [place] [address] [address] [place] [address]- Care Team Providers Care Telephone Technician Name Role Phone Christopher RIDDLE, Tom Choudhury Primary Care Physician Encounter [facility] ACCT R [id number] Date(s): 04/21/23 - 05/21/23 [facility] [address] [place], [place] [address] Attending Physician: Josemanuel Galvez Admitting [...] 08/26/22 Recorded pneumococcal 23-valent vaccine 04/10/17 Given [id number] 12y+ bivalent booster vax 2 08/26/22 Recorded SARS-CoV-2 (COVID-19) mRNA BNT-162b2 vac 10/19/21 Recorded SARS-CoV-2 (COVID-19) mRNA BNT-162b2 vac 04/07/21 Recorded SARS-CoV-2 (COVID-19) mRNA BNT-162b2 vac 03/17/21 Recorded influenza virus vaccine, inactivated 08/12/21 Gentry rded Not Given Vaccine Date Status Refusal Reason influenza virus vaccine, inactivated 08/23/20 Not Given Parent Or Guardian Refuses 1Result Comment: .5ML IM/LD Lot [id number] [facility] D Exp 08.16.2023 [facility] [phone] 2Result Comment: .3Ml IM/ LD Lot [id number] Exp 10.01.2022 [facility] [phone] Medications Albuterol (Eqv-ProAir HFA) Inhalation, Every 6 hours, 0 Refills, Maintenance, 04/10/23 13:27:00 EDT, Partial fill upon patientrequest if the prescription is for a schedule II opioid drug. Start Date: 04/10/23 Status: Ordered dicyclomine 20 mg oral tablet 1 tablet, By Mouth, 3 times a day, # 90 tablet, 0 Refills, Maintenance, 05/15/23 10:31:00 EDT, [facility] STORE 84853, 173, cm, 05/07/23 13:17:00 EDT, Height, 163.7, kg, 05/07/23 13:17:00 EDT, Dry Weight Start Date: 05/15/23 Status: Ordered escitalopram 10 mg oral tablet [...] opioid drug. Start Date: 04/10/23 Status: Ordered Lantus 100 u/ml subcutaneous solution [...] 04/21/23 15:34:00 EDT, Route to Pharmacy Electronically, [facility]/pharmacy #1234, 173, cm, 04/10/23 13:09:00 EDT, [...] Name: Michelle Fox RN Position: [facility] RN Member Role: Primary Care Nurse Name: Nyasia Cadet NP Position: [facility] Associate Professional Member Role: Primary Care Nurse Address: Address: [address] [place] [address]- Name: Roni Hunt RN Position: [facility] RN Member Role: Primary Care Nurse Name: Roya Jaramillo RN Position: [facility] RN Member Role: Primary Care Nurse Name: Tamika Mcguire RN Position: [facility] TE[place]OO Nurse Member Role: Primary Care Nurse Name: My Fonseca NP Position: [facility] Associate Professional Member Role: Lifetime Consulting Provider Address: Address: [address] [place] [address] [address] [facility] [place] [address]- Name: Gomez Daugherty RN Position: S RN Member Role: Primary Care Nurse Name: Paolo Patterson RN Position: [facility] RN Member Role: Primary Care Nurse Name: Clarisa Mederos RN Position: [facility] RN Member Role: Primary Care Nurse Name: Loreta Pitts RN Position: [facility] RN Member Role: Primary Care Nurse Name: Tom White MD Position: Reference Physician Member Role: PCP Address: Address: [address] [place] [address] [place] [address]- Name: Philomena Benavides RN Position: [facility] RN Member Role: Primary Care Nurse Name: Cortney Benavides RN Position: [facility] RN Member Role: Primary Care Nurse Name: Gloria Mims RN Position: [facility] RN Member Role: Primary Care Nurse Name: Stefany Lewis RN Position: [facility] ED RN W/OE and Tasks Member Role: Primary Care Nurse Name: Chiquita Cuevas RN Position: [facility] RN Member Role: Primary Care Nurse Name: Stefany Hamilton RN Position: [facility] Cafe Aide Member Role: Primary Care Nurse Name: Dee Davila RN Position: [facility] RN Member Role: Primary Care Nurse Name: Natalie Lopez RN Position: [facility] RN Member Role: Primary Care Nurse Name: Juan Diego Anguiano RN Position: [facility] RN Member Role: Primary Care Nurse Address: Address: [address] [place] [address] Name: Iwona Jones RN Position: [facility] RN Member Role: Primary Care Nurse Name: Angelika Villa RN Position: [facility] RN Member Role: Primary Care Nurse Name: Brandi Holman RN Position: [facility] OB RN Member Role: Primary Care Nurse Name: Candi Moore RN Position: [facility] SN RN Member Role: Primary Care Nurse Name: Stacy Yadav RN Position: [facility] Cafe Aide Member Role: Primary Care Nurse Name: Kenney Hodge RN Position: [facility] SN RN Member Role: Primary Care Nurse Name: Lexis Byers RN Position: [facility] RN Member Role: Primary Care Nurse Care Team Related Persons Name: XIOMARA HARRELLLUANN Address: home [address] [place] [address] Name: RAMÓN CARTAGENA Address: [place] [address] Name: LING WEIR Address: home [address] [place] [address]
--- OUTSIDE RECORDS SUMMARY | 2023-10-13 11:46 | XMS_ITS | Continuity of Care Document ---
Author Name Unknown Organization [facility] Address [address] [facility], [address] d Floor, [address] [place] [address]- Care Team Providers Care Elementary Librarian Name Role Phone Christopher RIDDLE, Tom Choudhury Primary Care Physician [phone] Encounter [facility] Date(s): 09/23/22 - 10/23/22 [facility] [address], [address], [address] [place] [address] Allergies, Adverse Reactions, Alerts Substance Reaction Severity [...] 08/26/22 Recorded pneumococcal 23-valent vaccine 04/10/17 Given [id number] 12y+ bivalent booster vax 2 08/26/22 Recorded SARS-CoV-2 (COVID-19) mRNA BNT-162b2 vac 10/19/21 Recorded SARS-CoV-2 (COVID-19) mRNA BNT-162b2 vac 04/07/21 Recorded SARS-CoV-2 (COVID-19) mRNA BNT-162b2 vac 03/17/21 Recorded influenza virus vaccine, inactivated 08/12/21 Gentry rded Not Given Vaccine Date Status Refusal Reason influenza virus vaccine, inactivated 08/23/20 Not Given Parent Or Guardian Refuses 1Result Comment: .5ML IM/LD Lot [id number] [facility] D Exp 08.16.2023 [facility] [phone] 2Result Comment: .3Ml IM/ LD Lot [id number] Exp 10.01.2022 [facility] [phone] Medications acetaminophen 500 mg oral capsule 2 capsule = 1,000 mg, By Mouth, Every 6 hours, PRN Pain, # 24 capsule, 0 Refills, Maintenance, 10/13/22 7:38:00 EST, [facility]/pharmacy #1234, Partial fill upon patient request [...] at bedtime, # 30 capsule, 11 Refills, [facility] STORE 45358, 173, cm, 05/06/2213:26:00 EDT, Height, 146, kg, 05/06/22 13:26:00 EDT, Dry Weight Start Date: 07/01/22 Status: Ordered carBAMazepine 300 mg oral capsule, extended release 2 capsule, By Mouth, 2 times a day, # 120 capsule, 11 Refills, [facility] STORE 06552, 173, cm, 05/06/22 13:26:00 EDT, Height, 146, [...] tablet, 0 Refills, Maintenance, 10/18/22 16:12:00 EST, [facility] STORE 34508, 173, cm, 10/13/22 7:56:00 EST, Height, 155, [...] 09/05/22 16:04:00 EDT, Route to Pharmacy Electronically, [facility] STORE 80884, 173, cm, 05/06/2213:26:00 EDT, Height, 146, kg, 05/06/22 13:26:00 ED... Start Date: 09/05/22 Status: Ordered LORazepam 2 mg oral tablet 1 tablet = 2 mg, By Mouth, Daily at bedtime, for 30 days, MassPat checked, # 30 tablet, 5 Refills, Acute 03/24/23 18:15:00 EDT, 09/25/22 18:15:00 EST, [facility]/pharmacy #1234, 175, cm, 09/15/22 17:17:00 EDT, [...] tablet, 1 Refills, Maintenance, 08/26/22 8:54:00 EDT, [facility]/pharmacy #1234, 173, cm, 05/06/22 13:26:00 EDT, [...] 5 Refills, Maintenance, 09/23/22 14:32:00 EST, Tablet, [facility]/pharmacy #1234, 175, cm, 09/15/22 17:17:00 EDT, [...] Team Personnel Name: Michelle Fox RN Position: [facility] RN Member Role: Primary Care Nurse Name: Nyasia Cadet NP Position: [facility] Associate Professional Member Role: Primary Care Nurse Address: Address: [address] [place] [address]- Name: Roya Jaramillo RN Position: [facility] RN Member Role: Primary Care Nurse Name: Steve Rose RN Position: [facility] RN Member Role: Primary Care Nurse Name: Tamika Mcguire RN Position: [facility] AMB Nurse Member Role: Primary Care Nurse Name: Gomez Daugherty RN Position: [facility] RN Member Role: Primary Care Nurse Name: Paolo Patterson RN Position: [facility] RN Member Role: Primary Care Nurse Name: Clarisa Mederos RN Position: [facility] RN Member Role: Primary Care Nurse Name: Loreta Pitts RN Position: [facility] RN Member Role: Primary Care Nurse Name: Tom White MD Position: Reference Physician Member Role: PCP Address: Address: [address] [place] [address] [place] [address]- Name: Philomena Benavides RN Position: [facility] RN Member Role: Primary Care Nurse Name: Cortney Benavides RN Position: [facility] RN Member Role: Primary Care Nurse Name: Stefany Lewis RN Position: [facility] ED RN W/OE and Tasks Member Role: Primary Care Nurse Name: Chiquita Cuevas RN Position: [facility] RN Member Role: Primary Care Nurse Name: Stefany Hamilton RN Position: [facility] Motor Generator Set Operator Member Role: Primary Care Nurse Name: Dee Davila RN Position: [facility] RN Member Role: Primary Care Nurse Name: Natalie Lopez RN Position: [facility] RN Member Role: Primary Care Nurse Name: Juan Diego Anguiano RN Position: [facility] RN Member Role: Primary Care Nurse Address: Address: [address] [place] [address] Name: Iwona Jones RN Position: [facility] RN Member Role: Primary Care Nurse Name: Angelika Villa RN Position: [facility] RN Member Role: Primary Care Nurse Name: Brandi [place] RN Position: [facility] RN Member Role: Primary Care Nurse Name: Candi Moore RN Position: [facility] SN RN Member Role: Primary Care Nurse Name: Stacy Yadav RN Position: [facility] Motor Generator Set Operator Member Role: Primary Care Nurse Name: Kenney Hodge RN Position: [facility] SN RN Member Role: Primary Care Nurse Care Team Related Persons Name: RAMÓN HARRELL Address: home [address] [place] [address] Name: RAMÓN CARTAGENA Address: [place] [address] Name: LING WEIR Address: home [address] [place] [address]
--- OUTSIDE RECORDS SUMMARY | 2023-10-13 11:46 | XMS_ITS | Continuity of Care Document ---
Author Name Unknown Organization [facility] Address [address], [address] Floor, [address] [place] [id number]- Care Team Providers Care System Administration Manager Name Role Phone Christopher RIDDLE, Tom Choudhury Primary Care Physician Encounter [facility] [place](s): 01/22/23 - 02/21/23 [facility] [address], [address], [address] [place] [address] Allergies, Adverse Reactions, Alerts Substance Reaction Severity [...] 08/26/22 Recorded pneumococcal 23-valent vaccine 04/10/17 Given [id number] 12y+ bivalent booster vax 2 08/26/22 Recorded SARS-CoV-2 (COVID-19) mRNA BNT-162b2 vac 10/19/21 Recorded SARS-CoV-2 (COVID-19) mRNA BNT-162b2 vac 04/07/21 Recorded SARS-CoV-2 (COVID-19) mRNA BNT-162b2 vac 03/17/21 Recorded influenza virus vaccine, inactivated 08/12/21 Gentry rded Not Given Vaccine Date Status Refusal Reason influenza virus vaccine, inactivated 08/23/20 Not Given Parent Or Guardian Refuses 1Result Comment: .5ML IM/LD Lot [id number] [employer] D Exp 08.16.2023 [facility] [phone] 2Result Comment: .3Ml IM/ LD Lot [id number] Exp 10.01.2022 [facility] [phone] Medications budesonide 3 mg oral delayed release capsule See Instructions, TAKE 3 TABLETS DAILY X3 WEEKS THEN 2 TABS DAILY X3 WEEKS THEN 1 TAB DAILY X2 WEEKS THEN STOP, # 77 capsule, 2 Refills, Maintenance, 12/24/22 8:57:00 EST, [facility] STORE [id number], 175, cm, 12/22/22 3:33:00 EST, Height, 163.5, kg, 12/17/22 13:... Start Date: 12/24/22 Status: Ordered busPIRone 7.5 mg oral tablet 1 tablet = 7.5 mg, By Mouth, 2 times a day Start Date: 11/25/22 Status: Ordered dicyclomine 20 mg oral tablet 1 tablet, By Mouth, 3 times a day, # 90 tablet, 0 Refills, Maintenance, 12/09/22 14:29:00 EST, [facility]/pharmacy #1234, 175, cm, 11/27/22 15:01:00 EST, Height, 163.5, kg, 11/24/22 14:49:00 EST, Dry Weight Start Date: 12/09/22 Status: Ordered docusate sodium 100 mg oral capsule 100 mg, 1, capsule, By Mouth, 2 times a day, # 20 capsule, Refills 0, Tot. Refills 0, Maintenance, 01/07/23 16:27:00 EST, Route to Pharmacy Electronically, [facility], Partial fill uponpatient request [...] 11/27/22 13:43:00 EST, Route to Pharmacy Electronically, [facility] 3, Partial fill upon patient request if the prescription is for a schedule II opioi... Start Date: 11/27/22 Status: Ordered loperamide 2 mg oral capsule 1, capsule, By Mouth, Every 4 hours, PRN, # 60 capsule, Refills 0, Tot. Refills 0, Maintenance, NEEDED FOR LOOSE STOOLS, 02/10/23 9:19:00 EDT, Route to Pharmacy Electronically, [facility]/pharmacy #[id number],173, cm, 01/27/23 8:03:00 EDT, Height, 163.3, kg, 0... Start Date: 02/10/23 Status: Ordered LORazepam 2 mg oral tablet 1 tablet = 2 mg, By Mouth, Daily at bedtime, for 30 days, MassPat checked, # 30 tablet, 5 Refills, Acute 03/24/23 18:15:00 EDT, 09/25/22 18:15:00 EST, [facility]/pharmacy #1234, 175, cm, 09/15/22 [...] tablet, 1 Refills, Maintenance, 08/26/22 8:54:00 EDT, [facility]/pharmacy #1234, 173, cm, 05/06/22 13:26:00 EDT, Height, 146, kg, 05/06/22 13:26:00 EDT,... Start Date: 08/26/22 Status: Ordered ondansetron 4 mg oral tablet 1 tablet = 4 mg, By Mouth, Every 8 hours, PRN Nausea & Vomiting, # 15 tablet, 0 Refills, Maintenance, 01/07/23 16:25:00 EST, Tablet, [facility] 3, Partial fill upon patient request ifthe [...] 5 Refills, Maintenance, 09/23/22 14:32:00 EST, Tablet, [facility]/pharmacy #1234, 175, cm, 09/15/22 [...] Team Personnel Name: Michelle Fox RN Position: [facility] RN Member Role: Primary Care Nurse Name: Nyasia Cadet NP Position: [facility] Associate Professional Member Role: Primary Care Nurse Address: Address: [address] [place] [address]- Name: Roni Hunt RN Position: [facility] RN Member Role: Primary Care Nurse Name: Roya Jaramillo RN Position: [facility] RN Member Role: Primary Care Nurse Name: Steve Rose RN Position: [facility] RN Member Role: Primary Care Nurse Name: Tamika Mcguire RN Position: [facility] AMB Nurse Member Role: Primary Care Nurse Name: My Fonseca NP Position: [facility] Associate Professional Member Role: Lifetime Consulting Provider Address: Address: [address] [place] [address] [facility] [place] [address]- Name: Gomez Daugherty RN Position: [facility] RN Member Role: Primary Care Nurse Name: Paolo Patterson RN Position: S RN Member Role: Primary Care Nurse Name: Clarisa Mederos RN Position: [facility] RN Member Role: Primary Care Nurse Name: Loreta Pitts RN Position: [facility] RN Member Role: Primary Care Nurse Name: Tom White MD Position: Reference Physician Member Role: PCP Address: Address: [address] [place] [address] [place] [address]- Name: Philomena Benavides RN Position: S RN Member Role: Primary Care Nurse Name: Cortney Benavides RN Position: S RN Member Role: Primary Care Nurse Name: Gloria Mims RN Position: [facility] RN Member Role: Primary Care Nurse Name: Stefany Lewis RN Position: [facility] ED RN W/OE and Tasks Member Role: Primary Care Nurse Name: Chiquita Cuevas RN Position: [facility] RN Member Role: Primary Care Nurse Name: Stefany Hamilton RN Position: [facility] Door Clamper Member Role: Primary Care Nurse Name: Dee Davila RN Position: [facility] RN Member Role: Primary Care Nurse Name: Natalie Lopez RN Position: [facility] RN Member Role: Primary Care Nurse Name: Juan Diego Anguiano RN Position: [facility] RN Member Role: Primary Care Nurse Address: Address: [address] [place] [id number] Name: Iwona Jones RN Position: [facility] RN Member Role: Primary Care Nurse Name: Angelika Villa RN Position: [facility] RN Member Role: Primary Care Nurse Name: Brandi Holman RN Position: [facility] OB RN Member Role: Primary Care Nurse Name: Candi Moore RN Position: [facility] SN RN Member Role: Primary Care Nurse Name: Stacy Yadav RN Position: [facility] Door Clamper Member Role: Primary Care Nurse Name: Naveen RN [place] Position: [facility] SN RN Member Role: Primary Care Nurse Name: Lexis Byers RN Position: [facility] RN Member Role: Primary Care Nurse Care Team Related Persons Name: XIOMARA HARRELLLUANN Address: home [address] [place] [address] Name: RAMÓN CARTAGENA Address: [place] [address] Name: LING WEIR Address: home [address] [place] [address]
--- OUTSIDE RECORDS SUMMARY | 2023-10-13 11:46 | XMS_ITS | Continuity of Care Document ---
Author Name Unknown Organization [facility] Address [address] [place], [place] [address]julio shin, [address] [place] [address]- Care Team Providers Care Psychic Reader Name Role Phone Christopher RIDDLE, Tom Choudhury Primary Care Physician [place] [facility] [place] 12/09[place]22 - 01/08/23 [facility] [address] [place] [address] Drive, [address] [place] [address]- Allergies, Adverse Reactions, Alerts Substance Reaction Severity [...] 08/26/22 Recorded pneumococcal 23-valent vaccine 04/10/17 Given [id number] 12y+ bivalent booster vax 2 08/26/22 Recorded SARS-CoV-2 (COVID-19) mRNA BNT-162b2 vac 10/19/21 Recorded SARS-CoV-2 (COVID-19) mRNA BNT-162b2 vac 04/07/21 Recorded SARS-CoV-2 (COVID-19) mRNA BNT-162b2 vac 03/17/21 Recorded influenza virus vaccine, inactivated 08/12/21 Gentry rded Not Given Vaccine Date Status Refusal Reason influenza virus vaccine, inactivated 08/23/20 Not Given Parent Or Guardian Refuses 1Result Comment: .5ML IM/LD Lot [id number] [employer] D Exp 08.16.2023 [facility] [phone] 2Result Comment: .3Ml IM/ LD Lot [id number] Exp 10.01.2022 [facility] [phone] Medications acetaminophen 325 mg oral tablet 975 mg, By Mouth, Every 6 hours, for 10 days, # 120 tablet, Refills 0, Tot. Refills 0, Acute 01/17/23 16:25:00 EST, 01/07/23 16:25:00 EST, Route to Pharmacy Electronically, [facility], Partial fill upon patient request if the prescriptio... Start Date: 01/07/23 Stop Date: 01/17/23 Status: Ordered budesonide 3 mg oral delayed release capsule See Instructions, TAKE 3 TABLETS DAILY X3 WEEKS THEN 2 TABS DAILY X3 WEEKS THEN 1 TAB DAILY X2 WEEKS THEN STOP, # 77 capsule, 2 Refills, Maintenance, 12/24/22 8:57:00 EST, [facility] STORE [id number], 175, cm, 12/22/22 3:33:00 EST, Height, 163.5, kg, 12/17/22 13:... Start Date: 12/24/22 Status: Ordered busPIRone 7.5 mg oral tablet 1 tablet = 7.5 mg, By Mouth, 2 times a day Start Date: 11/25/22 Status: Ordered dicyclomine 20 mg oral tablet 1 tablet, By Mouth, 3 times a day, # 90 tablet, 0 Refills, Maintenance, 12/09/22 14:29:00 EST, [facility]/pharmacy #1234, 175, cm, 11/27/22 15:01:00 EST, Height, 163.5, kg, 11/24/22 14:49:00 EST, Dry Weight Start Date: 12/09/22 Status: Ordered docusate sodium 100 mg oral capsule 100 mg, 1, capsule, By Mouth, 2 times a day, # 20 capsule, Refills 0, Tot. Refills 0, Maintenance, 01/07/23 16:27:00 EST, Route to Pharmacy Electronically, [facility], Partial fill uponpatient request [...] 11/27/22 13:43:00 EST, Route to Pharmacy Electronically, [facility] 3, Partial fill upon patient request if the prescription is for a schedule II opioi... Start Date: 11/27/22 Status: Ordered loperamide 2 mg oral capsule 1, capsule, By Mouth, Every 4 hours, PRN, # 60 capsule, Refills 0, Tot. Refills 0, Maintenance, NEEDED FOR LOOSE STOOLS, 12/09/22 14:29:00 EST, Route to Pharmacy Electronically, [facility]/pharmacy #1234, 175, cm, 11/27/22 15:01:00 EST, Height, 163.5, kg,... Start Date: 12/09/22 Status: Ordered LORazepam 2 mg oral tablet 1 tablet = 2 mg, By Mouth, Daily at bedtime, for 30 days, MassPat checked, # 30 tablet, 5 Refills, Acute 03/24/23 18:15:00 EDT, 09/25/22 18:15:00 EST, [facility]/pharmacy #1234, 175, cm, 09/15/22 17:17:00 EDT, Height, [...] tablet, 1 Refills, Maintenance, 08/26/22 8:54:00 EDT, [facility]/pharmacy #1234, 173, cm, 05/06/22 13:26:00 EDT, Height, 146, kg, 05/06/22 13:26:00 EDT,... Start Date: 08/26/22 Status: Ordered ondansetron 4 mg oral tablet 1 tablet = 4 mg, By Mouth, Every 8 hours, PRN Nausea & Vomiting, # 15 tablet, 0 Refills, Maintenance, 01/07/23 16:25:00 EST, Tablet, [facility] 3, Partial fill upon patient [...] 01/07/23 16:27:00 EST, Route to Pharmacy Electronically, [facility], Partial fill upon patie... Start Date: 01/07/23 Stop Date: 01/14/23 Status: Ordered risperiDONE 2 mg oral tablet 2 mg, 1, tablet, By Mouth, Daily at bedtime Start Date: 11/25/22 Status: Ordered Vimpat 150 mg oral tablet 1 tablet = 150 mg, By Mouth, 2 times a day, MassPat checked., # 60 tablet, 5 Refills, Maintenance, 09/23/22 14:32:00 EST, Tablet, [facility]/pharmacy #1234, 175, cm, 09/15/22 17:17:00 EDT, Height, [...] Team Personnel Name: Michelle Fox RN Position: [facility] RN Member Role: Primary Care Nurse Name: Nyasia Cadet NP Position: [facility] Associate Professional Member Role: Primary Care Nurse Address: Address: [address] [place] [id number]- Name: Roni Hunt RN Position: [facility] RN Member Role: Primary Care Nurse Name: Roya Jaramillo RN Position: [facility] RN Member Role: Primary Care Nurse Name: Steve Rose RN Position: [facility] RN Member Role: Primary Care Nurse Name: Tamika Mcguire RN Position: [facility] AMB Nurse Member Role: Primary Care Nurse Name: Gomez Daugherty RN Position: [facility] RN Member Role: Primary Care Nurse Name: Paolo Patterson RN Position: [facility] RN Member Role: Primary Care Nurse Name: Clarisa Mederos RN Position: [facility] RN Member Role: Primary Care Nurse Name: Loreta Pitts RN Position: [facility] RN Member Role: Primary Care Nurse Name: Tom White MD Position: Reference Physician Member Role: PCP Address: Address: [address] [place] [address] [place] [address]- Name: Philomena Benavides RN Position: [facility] RN Member Role: Primary Care Nurse Name: Cortney Benavides RN Position: [facility] RN Member Role: Primary Care Nurse Name: Stefany Lewis RN Position: [facility] ED RN W/OE and Tasks Member Role: Primary Care Nurse Name: Chiquita Cuevas RN Position: [facility] RN Member Role: Primary Care Nurse Name: Stefany Hamilton RN Position: [facility] Diver Tender Member Role: Primary Care Nurse Name: Dee Davila RN Position: [facility] RN Member Role: Primary Care Nurse Name: Natalie Lopez RN Position: [facility] RN Member Role: Primary Care Nurse Name: Juan Diego Anguiano RN Position: [facility] RN Member Role: Primary Care Nurse Address: Address: [address] [place] [id number] Name: Iwona Jones RN Position: [facility] RN Member Role: Primary Care Nurse Name: Angelika Villa RN Position: [facility] RN Member Role: Primary Care Nurse Name: Brandi Holman RN Position: [facility] RN Member Role: Primary Care Nurse Name: Candi Moore RN Position: [facility] SN RN Member Role: Primary Care Nurse Name: Stacy Yadav RN Position: [facility] Diver Tender Member Role: Primary Care Nurse Name: Naveen CORNELL Hteekareginald Position: [facility] SN RN Member Role: Primary Care Nurse Name: Lexis Byers Position: [facility] RN Member Role: Primary Care Nurse Care Team Related Persons Name: XIOMARA HARRELLLUANN Address: home [address] [address] Name: RAMÓN CARTAGENA Address: [place] [address] Name: LING WEIR Address: home [address] [place] [address]
--- OUTSIDE RECORDS SUMMARY | 2023-10-13 11:46 | XMS_ITS | Continuity of Care Document ---
Author Name Unknown Organization [facility] Kelly sherrie Address [address] [place] [address] [address] [place] [address]- Care Team Providers Care Switchboard Wirer Name Role Phone Christopher RIDDLE, Tom Choudhury Primary Care Physician Encounter [facility] [place] Date(s): 01/09/23 - 02/08/23 [facility] [address] [place] [address]- Allergies, Adverse Reactions, Alerts Substance Reaction Severity [...] 08/26/22 Recorded pneumococcal 23-valent vaccine 04/10/17 Given [id number] 12y+ bivalent booster vax 2 08/26/22 Recorded SARS-CoV-2 (COVID-19) mRNA BNT-162b2 vac 10/19/21 Recorded SARS-CoV-2 (COVID-19) mRNA BNT-162b2 vac 04/07/21 Recorded SARS-CoV-2 (COVID-19) mRNA BNT-162b2 vac 03/17/21 Recorded influenza virus vaccine, inactivated 08/12/21 Gentry rded Not Given Vaccine Date Status Refusal Reason influenza virus vaccine, inactivated 08/23/20 Not Given Parent Or Guardian Refuses 1Result Comment: .5ML IM/LD Lot [id number] [employer] D Exp 08.16.2023 [facility] [phone] 2Result Comment: .3Ml IM/ LD Lot [id number] Exp 10.01.2022 [facility] [phone] Medications budesonide 3 mg oral delayed release capsule See Instructions, TAKE 3 TABLETS DAILY X3 WEEKS THEN 2 TABS DAILY X3 WEEKS THEN 1 TAB DAILY X2 WEEKS THEN STOP, # 77 capsule, 2 Refills, Maintenance, 12/24/22 8:57:00 EST, [facility] STORE [id number], 175, cm, 12/22/22 3:33:00 EST, Height, 163.5, kg, 12/17/22 13:... Start Date: 12/24/22 Status: Ordered busPIRone 7.5 mg oral tablet 1 tablet = 7.5 mg, By Mouth, 2 times a day Start Date: 11/25/22 Status: Ordered dicyclomine 20 mg oral tablet 1 tablet, By Mouth, 3 times a day, # 90 tablet, 0 Refills, Maintenance, 12/09/22 14:29:00 EST, [facility]/pharmacy #1234, 175, cm, 11/27/22 15:01:00 EST, Height, 163.5, kg, 11/24/22 14:49:00 EST, Dry Weight Start Date: 12/09/22 Status: Ordered docusate sodium 100 mg oral capsule 100 mg, 1, capsule, By Mouth, 2 times a day, # 20 capsule, Refills 0, Tot. Refills 0, Maintenance, 01/07/23 16:27:00 EST, Route to Pharmacy Electronically, [facility], Partial fill uponpatient request [...] 11/27/22 13:43:00 EST, Route to Pharmacy Electronically, [facility] 3, Partial fill upon patient request if the prescription is for a schedule II opioi... Start Date: 11/27/22 Status: Ordered loperamide 2 mg oral capsule 1, capsule, By Mouth, Every 4 hours, PRN, # 60 capsule, Refills 0, Maintenance, NEEDED FOR LOOSESTOOLS, 01/21/23 16:35:00 EST, Route to Pharmacy Electronically, [facility] [id number], 173, cm, 01/02/2317:14:00 EST, Height, 163.3, kg, 01/02/23 17:14:00... Start Date: 01/21/23 Status: Ordered LORazepam 2 mg oral tablet 1 tablet = 2 mg, By Mouth, Daily at bedtime, for 30 days, MassPat checked, # 30 tablet, 5 Refills, Acute 03/24/23 18:15:00 EDT, 09/25/22 18:15:00 EST, [facility]/pharmacy #1234, 175, cm, 09/15/22 17:17:00 EDT, [...] 1 Refills, Maintenance, 08/26/22 8:54:00 EDT, [facility] #1234, 173, cm, 05/06/22 13:26:00 EDT, Height, 146, kg, 05/06/22 13:26:00 EDT,... Start Date: 08/26/22 Status: Ordered ondansetron 4 mg oral tablet 1 tablet = 4 mg, By Mouth, Every 8 hours, PRN Nausea & Vomiting, # 15 tablet, 0 Refills, Maintenance, 01/07/23 16:25:00 EST, Tablet, [facility] 3, Partial fill upon patient request ifthe [...] Refills, Maintenance, 09/23/22 14:32:00 EST, Tablet, [facility] #1234, 175, cm, 09/15/22 17:17:00 EDT, [...] RN Position: [facility] RN Member Role: Primary Care Nurse Name: Nyasia Cadet NP Position: [facility] Associate Professional Member Role: Primary Care Nurse Address: Address: [address] [place] [id number]- Name: Roni Hunt RN Position: [facility] RN Member Role: Primary Care Nurse Name: Roya Jaramillo RN Position: [facility] RN Member Role: Primary Care Nurse Name: Steve Rose RN Position: [facility] RN Member Role: Primary Care Nurse Name: Tamika Mcguire RN Position: [facility] AMB Nurse Member Role: Primary Care Nurse Name: Gomez Daugherty RN Position: [facility] RN Member Role: Primary Care Nurse Name: Paolo Patterson RN Position: [facility] RN Member Role: Primary Care Nurse Name: Clarisa Mederos RN Position: [facility] RN Member Role: Primary Care Nurse Name: Loreta Pitts RN Position: [facility] RN Member Role: Primary Care Nurse Name: Tom White MD Position: Reference Physician Member Role: PCP Address: Address: [address] [place] [address] [place] [address]- Name: Philomena Benavides RN Position: [facility] RN Member Role: Primary Care Nurse Name: Cortney Benavides RN Position: [facility] RN Member Role: Primary Care Nurse Name: Stefany Lewis RN Position: [facility] ED RN W/OE and Tasks Member Role: Primary Care Nurse Name: Chiquita Cuevas RN Position: [facility] RN Member Role: Primary Care Nurse Name: Stefany Hamilton RN Position: [facility] Manager Pulmonary Member Role: Primary Care Nurse Name: Dee Davila RN Position: [facility] RN Member Role: Primary Care Nurse Name: Natalie Lopez RN Position: [facility] RN Member Role: Primary Care Nurse Name: Juan Diego Anguiano RN Position: [facility] RN Member Role: Primary Care Nurse Address: Address: [address] [place] [id number]- Name: Iwona Jones RN Position: [facility] RN Member Role: Primary Care Nurse Name: Angelika Villa RN Position: [facility] RN Member Role: Primary Care Nurse Name: Brandi Holman RN Position: [facility] OB RN Member Role: Primary Care Nurse Name: Candi Moore RN Position: [facility] SN RN Member Role: Primary Care Nurse Name: Stacy Yadav RN Position: [facility] Manager Pulmonary Member Role: Primary Care Nurse Name: Kenney Hodge RN Position: [facility] SN RN Member Role: Primary Care Nurse Name: Lexis Byers RN Position: [facility] RN Member Role: Primary Care Nurse Care Team Related Persons Name: RAMÓN HARRELL Address: home [address] [place] [address] Name: RAMÓN CARTAGENA Address: [place] [address] Name: LING WEIR Address: home [address] [place] [address]
--- OUTSIDE RECORDS SUMMARY | 2023-10-13 11:46 | XMS_ITS | Continuity of Care Document ---
Author Name Unknown Organization [facility] Address [address] [facility], 3r d Floor, [address] [place] [phone]- Care Team Providers Care Business Banker Name Role Phone Christopher RIDDLE, Tom Choudhury Primary Care Physician Encounter [facility] Date(s): 04/08/23 - 07/30/23 [facility] [address], 3rd Floor, [address] [place] [id number] Attending Physician: Kristy Mena NP Admitting Physician: Kristy Mena NP Allergies, Adverse Reactions, Alerts Substance Reaction Severity [...] 08/26/22 Recorded pneumococcal 23-valent vaccine 04/10/17 Given [id number] 12y+ bivalent booster vax 2 08/26/22 Recorded SARS-CoV-2 (COVID-19) mRNA BNT-162b2 vac 10/19/21 Recorded SARS-CoV-2 (COVID-19) mRNA BNT-162b2 vac 04/07/21 Recorded SARS-CoV-2 (COVID-19) mRNA BNT-162b2 vac 03/17/21 Recorded influenza virus vaccine, inactivated 08/12/21 Gentry rded 1Result Comment: .5ML IM/LD Lot [id number] [facility] D Exp 08.16.2023 [facility] [phone] 2Result Comment: .3Ml IM/ LD Lot [id number] Exp 10.01.2022 [facility] [phone] Medications Albuterol (Eqv-ProAir HFA) Inhalation, Every 6 hours, 0 Refills, Maintenance, 04/10/23 13:27:00 EDT, Partial fill upon patientrequest if the prescription is for a schedule II opioid drug. Start Date: 04/10/23 Status: Ordered dicyclomine 20 mg oral tablet 1 tablet, By Mouth, 3 times a day, # 90 tablet, 0 Refills, Maintenance, 07/02/23 13:53:00 EDT, [facility] [id number], 173, cm, 05/07/23 13:17:00 EDT, Height, 163.7, [...] 60 tablet, 1 Refills, Maintenance, 06/11/2313:31:00 EDT, [facility]/pharmacy #[id number], 173, cm, 05/07/23 13:17:00 EDT, [...] 04/21/23 15:34:00 EDT, Route to Pharmacy Electronically, [facility]/pharmacy #[id number], 173, cm, 04/10/23 13:09:00 EDT, [...] Refills, Maintenance, 07/28/23 8:45:00 EDT, [id number], 173, cm, 05/07/23 13:17:00 EDT, Height, 163.7... [...] Member Role: Primary Care Nurse Address: Address: [address] [place] [id number] Name: Roni Hunt RN Position: S RN Member Role: Primary Care Nurse Name: Roya Jaramillo RN Position: S RN Member Role: Primary Care Nurse Name: My Fonseca NP Position: S Associate Professional Member Role: Lifetime Consulting Provider Address: Address: [address] [place] [address] [address] [facility] [place] [address]- [place] Name: Gomez Daugherty RN Position: [facility] RN Member Role: Primary Care Nurse Name: Paolo Patterson RN Position: [facility] RN Member Role: Primary Care Nurse Name: Clarisa Mederos RN Position: [facility] RN Member Role: Primary Care Nurse Name: Loreta Pitts RN Position: [facility] RN Member Role: Primary Care Nurse Name: Tom White MD Position: Reference Physician Member Role: PCP Address: Address: [address] [place] [address] [place] [address]- [place] Name: Philomena Benavides RN Position: [facility] RN Member Role: Primary Care Nurse Name: Cortney Benavides RN Position: [facility] RN Member Role: Primary Care Nurse Name: Gloria Mims RN Position: [facility] RN Member Role: Primary Care Nurse Name: Stefany Lewis RN Position: [facility] ED RN W/OE and Tasks Member Role: Primary Care Nurse Name: Chiquita Cuevas RN Position: [facility] RN Member Role: Primary Care Nurse Name: Stefany Hamilton RN Position: [facility] Aircraft Mechanic Electrical And [employer] Member Role: Primary Care Nurse Name: Dee Davila RN Position: [facility] RN Member Role: Primary Care Nurse Name: Natalie Lopez RN Position: [facility] RN Member Role: Primary Care Nurse Name: Juan Diego Anguiano RN Position: [facility] RN Member Role: Primary Care Nurse Address: Address: [address] [place] [address]- [place] Name: Iwona Jones RN Position: [facility] RN Member Role: Primary Care Nurse Name: Angelika Villa RN Position: [facility] RN Member Role: Primary Care Nurse Name: Brandi Holman RN Position: [facility] OB RN Member Role: Primary Care Nurse Name: Candi Moore RN Position: [facility] SN RN Member Role: Primary Care Nurse Name: Stacy Yadav RN Position: [facility] Aircraft Mechanic Electrical [employer] Member Role: Primary Care Nurse Name: Kenney Hodge RN Position: [facility] SN RN Member Role: Primary Care Nurse Name: Lexis Byers RN Position: [facility] RN Member Role: Primary Care Nurse Care Team Related Persons Name: RAMÓN HARRELL Address: home [address] [place] [address] Name: RAMÓN CARTAGENA Address: [place] [address] Name: LING WEIR Address: home [address] [place] [address]
--- OUTSIDE RECORDS SUMMARY | 2023-10-13 11:46 | XMS_ITS | Continuity of Care Document ---
Author Name Unknown Organization [facility] Kelly sherrie Address [address] [place] [address] [address] [place] [address]- Care Team Providers Care Coding Educator Name Role Phone Tom White MD Primary Care Physician Encounter [facility] Date(s): 11/19/22 - 11/26/22 [facility] [address] [place], [place] [address] Attending Physician: Osmany Garner MD Referring Physician: Tom White MD Allergies, [...] 08/26/22 Recorded pneumococcal 23-valent vaccine 04/10/17 Given [id number] 12y+ bivalent booster vax 2 08/26/22 Recorded SARS-CoV-2 (COVID-19) mRNA BNT-162b2 vac 10/19/21 Recorded SARS-CoV-2 (COVID-19) mRNA BNT-162b2 vac 04/07/21 Recorded SARS-CoV-2 (COVID-19) mRNA BNT-162b2 vac 03/17/21 Recorded influenza virus vaccine, inactivated 08/12/21 Gentry rded Not Given Vaccine Date Status Refusal Reason influenza virus vaccine, inactivated 08/23/20 Not Given Parent Or Guardian Refuses 1Result Comment: .5ML IM/LD Lot [id number] [facility] D Exp 9.30.2023 [facility] [phone] 2Result Comment: .3Ml IM/ LD Lot [id number] Exp 10.01.2022 [facility] [phone] Medications busPIRone 7.5 mg oral tablet 1 tablet = 7.5 mg, By Mouth, 2 times a day Start Date: 11/25/22 Status: Ordered carBAMazepine 100 mg oral capsule, extended release 1 capsule, By Mouth, Daily at bedtime, # 30 capsule, 11 Refills, [facility], 173, cm, 05/06/2213:26:00 EDT, Height, 146, kg, 05/06/22 13:26:00 EDT, Dry Weight Start Date: 07/01/22 Status: Ordered carBAMazepine 300 mg oral capsule, extended release 2 capsule, By Mouth, 2 times a day, # 120 capsule, 11 Refills, [facility], 173, cm, 05/06/22 13:26:00 EDT, Height, 146, kg, 05/06/22 13:26:00 EDT, Dry Weight Start Date: 07/01/22 Status: Ordered dicyclomine 20 mg oral tablet 1 tablet, By Mouth, 3 times a day, # 90 tablet, 0 Refills, Maintenance, 11/12/22 14:55:00 EST, [facility], 173, cm, 10/13/22 7:56:00 EST, Height, 155, [...] tablet = 40 mg, By Mouth, Daily, Maintenance, 11/25/22 17:17:00 EST, Tablet, Partial fill upon patient request if the prescription is for a schedule II opioid drug. Start Date: 11/25/22 Status: Ordered loperamide 2 mg oral capsule 1, capsule, By Mouth, Every 4 hours, PRN, # 60 capsule, Refills 0, Maintenance, NEEDED FOR LOOSESTOOLS, 11/12/22 14:55:00 EST, Route to Pharmacy Electronically, [facility] STORE [id number], 173, cm, 227:56:00 EST, Height, 155, kg, 10/13/22 7:56:00 EST,... Start Date: 11/12/22 Status: Ordered LORazepam 2 mg oral tablet 1 tablet = 2 mg, By Mouth, Daily at bedtime, for 30 days, MassPat checked, # 30 tablet, 5 Refills, Acute 03/24/23 18:15:00 EDT, 09/25/22 18:15:00 EST, [facility]/pharmacy #1234, 175, cm, 09/15/22 17:17:00 EDT, Height, 160.2, kg, 09/15/22 17:17:00 EDT, Dry We... Start Date: 09/25/22 Stop Date: 03/24/23 Status: Ordered Lyrica 100 mg oral capsule 1 capsule = 100 mg, By Mouth, 2 times a day, 0 Refills, Maintenance, 09/27/22 17:10:00 EST, Capsule, Partial fill upon patient request if the prescription is for a schedule II opioid drug. Start Date: 09/27/22 Status: Ordered Melatonin 3 mg oral tablet 1-2 tablet, By Mouth, Daily at bedtime Start Date: 11/25/22 Status: Ordered naratriptan 1 mg oral tablet See Instructions, TAKE 1 TABLET BY MOUTH AT ONSET OF HEADACHE, MAY REPEAT ONCE IN 4 HOURS IF NEEDED, # 9 tablet, 1 Refills, Maintenance, 08/26/22 8:54:00 EDT, [facility]/pharmacy #1234, 173, cm, 05/06/22 13:26:00 EDT, Height, 146, kg, 05/06/22 13:26:00 EDT,... Start Date: 08/26/22 Status: Ordered risperiDONE 2 mg oral tablet 2 mg, 1, tablet, By Mouth, Daily at bedtime Start Date: 11/25/22 Status: Ordered Vimpat 150 mg oral tablet 1 tablet = 150 mg, By Mouth, 2 times a day, MassPat checked., # 60 tablet, 5 Refills, Maintenance, 09/23/22 14:32:00 EST, Tablet, [facility]/pharmacy #1234, 175, cm, 09/15/22 17:17:00 EDT, [...] oldest [Reference Range]: 1 Height 173 cm (11/19/22 2:12 PM) Weight 154.54 kg (11/19/22 2:12 PM) Body Mass Index [18.5-24.99 kg/m2] 51.64 kg/m2 *>HHI* (11/19/22 2:12 PM) Temperature [96.8-100.4 DegF] 98.4 DegF (11/19/22 2:12 PM) Temperature Route Temporal (11/19/22 2:12 PM) Weight Obtained Via Standing scale (11/19/22 2:12 PM) Social History Social History Type Response Smoking Status Former smoker, quit more than 30 days ago; Interested in cessation: Yes; Patient wants NRT during admission Yes; Type: Cigarettes; Total pack years: 8; Started at age: 18; entered on: 05/06/22 Sex Patient Care team information Care Team Personnel Name: Michelle Fox RN Position: [facility] RN Member Role: Primary Care Nurse Name: Nyasia Cadet NP Position: [facility] Associate Professional Member Role: Primary Care Nurse Address: Address: [address] [place] [address]- Name: Roni Hunt RN Position: [facility] RN Member Role: Primary Care Nurse Name: Roya Jaramillo RN Position: [facility] RN Member Role: Primary Care Nurse Name: Steve Rose RN Position: [facility] RN Member Role: Primary Care Nurse Name: Tamika Mcguire RN Position: [facility] AMB Nurse Member Role: Primary Care Nurse Name: Gomez Daugherty RN Position: [facility] RN Member Role: Primary Care Nurse Name: Paolo Patterson RN Position: [facility] RN Member Role: Primary Care Nurse Name: Clarisa Mederos RN Position: [facility] RN Member Role: Primary Care Nurse Name: Loreta Pitts RN Position: [facility] RN Member Role: Primary Care Nurse Name: Tom White MD Position: Reference Physician Member Role: PCP Address: Address: [address] [place] [address] [place] [address]- Name: Philomena Benavides RN Position: [facility] RN Member Role: Primary Care Nurse Name: Cortney Benavides RN Position: S RN Member Role: Primary Care Nurse Name: Stefany Lewis RN Position: [facility] ED RN W/OE and Tasks Member Role: Primary Care Nurse Name: Chiquita Cuevas RN Position: [facility] RN Member Role: Primary Care Nurse Name: Stefany Hamilton RN Position: [facility] Spikemaking Supervisor Member Role: Primary Care Nurse Name: Dee Davila RN Position: [facility] RN Member Role: Primary Care Nurse Name: Natalie Lopez RN Position: [facility] RN Member Role: Primary Care Nurse Name: Juan Diego Anguiano RN Position: [facility] RN Member Role: Primary Care Nurse Address: Address: [address] [place] [address] Name: Iwona Jones RN Position: [facility] RN Member Role: Primary Care Nurse Name: Angelika Villa RN Position: [facility] RN Member Role: Primary Care Nurse Name: Brandi Holman RN Position: [facility] RN Member Role: Primary Care Nurse Name: Candi Moore RN Position: [facility] SN RN Member Role: Primary Care Nurse Name: Stacy Yadav RN Position: [facility] Spikemaking Supervisor Member Role: Primary Care Nurse Name: Naveen CORNELL Hteekahermilou Position: [facility] SN RN Member Role: Primary Care Nurse Care Team Related Persons Name: RAMÓN HARRELL Address: home [address] [place] [address] Name: RAMÓN CARTAGENA Address: [place] [address] Name: LING WEIR Address: home [address] [place] [address]
--- OUTSIDE RECORDS SUMMARY | 2023-10-13 11:47 | XMS_ITS | Continuity of Care Document ---
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 Name Role Phone Christopher RIDDLE, Tom Choudhury Primary Care Physician Encounter [facility] Date(s): 05/12/23 - 06/11/[address] [facility] [address], 3[address] Floor, [address] [place] [address]- Allergies, Adverse Reactions, Alerts Substance Reaction Severity Status gabapentin Agitation Persistent Moderate Active Toradol C/O: a rash Active Versed 1 dyspnea aggitation throat closes up Persistent Severe Active sulfa drugs rash C/O: itching Persistent Severe Active Latex itchiness Active 1Does fine with Ativan, Valium, Klonopin Immunizations Given and Recorded Vaccine Date Status Refusal Reason pneumococcal 23-valent vaccine 1 08/26/22 Recorded pneumococcal 23-valent vaccine 04/10/17 Given [id number] 12y+ bivalent booster vax 2 08/26/22 Recorded SARS-CoV-2 (COVID-19) mRNA BNT-162b2 vac 10/19/21 Recorded SARS-CoV-2 (COVID-19) mRNA BNT-162b2 vac 04/07/21 Recorded SARS-CoV-2 (COVID-19) mRNA BNT-162b2 vac 03/17/21 Recorded influenza virus vaccine, inactivated 08/12/21 Gentry rded Not Given Vaccine Date Status Refusal Reason influenza virus vaccine, inactivated 08/23/20 Not Given Parent Or Guardian Refuses 1Result Comment: .5ML IM/LD Lot [id number] [facility] D Exp 08.16.2023 [facility] [phone] 2Result Comment: .3Ml IM/ LD Lot [id number] Exp 10.01.2022 [facility] [phone] Medications Albuterol (Eqv-ProAir HFA) Inhalation, Every 6 hours, 0 Refills, Maintenance, 04/10/23 13:27:00 EDT, Partial fill upon patientrequest if the prescription is for a schedule II opioid drug. Start Date: 04/10/23 Status: Ordered dicyclomine 20 mg oral tablet 1 tablet, By Mouth, 3 times a day, # 90 tablet, 0 Refills, Maintenance, 06/09/23 9:38:00 EDT, [facility] 79227, 173, cm, 05/07/23 13:17:00 EDT, Height, 163.7, kg, 05/07/23 13:17:00 EDT, Dry Weight Start Date: 06/09/23 Status: Ordered escitalopram 10 mg oral tablet [...] 60 tablet, 1 Refills, Maintenance, 06/11/2313:31:00 EDT, [facility]/pharmacy #1234, 173, cm, 05/07/23 13:17:00 EDT, [...] 04/21/23 15:34:00 EDT, Route to Pharmacy Electronically, [facility]/pharmacy #1234, 173, cm, 04/10/23 13:09:00 EDT, [...] Status: Ordered rizatriptan 10 mg oral tablet 1 tablet = 10 mg, By Mouth, Once, PRN as needed for migraine headache, may repeat in 2 hours if response unsatisfactory, # 12 tablet, 0 Refills, Soft Stop, 05/23/23 15:21:00 EDT, Tablet, [facility], 173, cm, 05/07/23 13:17:00 EDT, Height, 163.... Start Date: 05/23/23 Status: Ordered Trulicity Pen 0.75 mg/0.5 mL [...] Team Personnel Name: Michelle Fox RN Position: [facility] RN Member Role: Primary Care Nurse Name: Nyasia Cadet NP Position: [facility] Associate Professional Member Role: Primary Care Nurse Address: Address: [address] [place] [address] Name: Roni Hunt RN Position: [facility] RN Member Role: Primary Care Nurse Name: Roya Jaramillo RN Position: [facility] RN Member Role: Primary Care Nurse Name: Tamika Mcguire RN Position: [facility] AMB Nurse Member Role: Primary Care Nurse Name: My Fonseca NP Position: [facility] Associate Professional Member Role: Lifetime Consulting Provider Address: Address: [address] [place], [place] [address]E [facility] [place] [address]- [place] Name: Gomez Daugherty RN Position: [facility] RN Member Role: Primary Care Nurse Name: Paolo Patterson RN Position: [facility] RN Member Role: Primary Care Nurse Name: Clarisa Mederos RN Position: [facility] RN Member Role: Primary Care Nurse Name: Loreta Pitts RN Position: [facility] RN Member Role: Primary Care Nurse Name: Tom White MD Position: Reference Physician Member Role: PCP Address: Address: [address] [place] [address] [place] [address]- [place] Name: Philomena Benavides RN Position: [facility] RN Member Role: Primary Care Nurse Name: Cortney Benavides RN Position: [facility] RN Member Role: Primary Care Nurse Name: Gloria Mims RN Position: [facility] RN Member Role: Primary Care Nurse Name: Stefany Lewis RN Position: [facility] ED RN W/OE and Tasks Member Role: Primary Care Nurse Name: Chiquita Cuevas RN Position: [facility] RN Member Role: Primary Care Nurse Name: Stefany Hamilton RN Position: [facility] Senior Analytical Chemist Member Role: Primary Care Nurse Name: Dee Davila RN Position: [facility] RN Member Role: Primary Care Nurse Name: Natalie Lopez RN Position: [facility] RN Member Role: Primary Care Nurse Name: Juan Diego Anguiano RN Position: [facility] RN Member Role: Primary Care Nurse Address: Address: [address] [place] [address]- [place] Name: Iwona Jones RN Position: [facility] RN Member Role: Primary Care Nurse Name: Angelika Villa RN Position: [facility] RN Member Role: Primary Care Nurse Name: Brandi Holman RN Position: [facility] OB RN Member Role: Primary Care Nurse Name: Candi Moore RN Position: [facility] SN RN Member Role: Primary Care Nurse Name: Stacy Yadav RN Position: [facility] Senior Analytical Chemist Member Role: Primary Care Nurse Name: Kenney Hodge RN Position: [facility] SN RN Member Role: Primary Care Nurse Name: Lexis Byers RN Position: [facility] RN Member Role: Primary Care Nurse Care Team Related Persons Name: RAMÓN HARRELL Address: home [address] [place] [address] Name: RAMÓN CARTAGENA Address: [place] [address] Name: LING WEIR Address: home [address] [place] [address]
--- OUTSIDE RECORDS SUMMARY | 2023-10-13 11:47 | XMS_ITS | Continuity of Care Document ---
Author Name Unknown Organization [facility] Neurosurger y Address [address] [place] [address] [address], [address] [place] [address]- Care Team Providers Care Plumbing Designer Name Role Phone Christopher RIDDLE, Tom Choudhury Primary Care Physician Encounter [facility] Date(s): 12/11/22 - 12/18/22 [facility] Neurosurgery [address] [place] [address] Drive, [address] [place], [place] [address] Attending Physician: Ronnie Boyle MD Referring Physician: Ronnie [...] 08/26/22 Recorded pneumococcal 23-valent vaccine 04/10/17 Given [id number] 12y+ bivalent booster vax 2 08/26/22 Recorded SARS-CoV-2 (COVID-19) mRNA BNT-162b2 vac 10/19/21 Recorded SARS-CoV-2 (COVID-19) mRNA BNT-162b2 vac 04/07/21 Recorded SARS-CoV-2 (COVID-19) mRNA BNT-162b2 vac 03/17/21 Recorded influenza virus vaccine, inactivated 08/12/21 Gentry rded Not Given Vaccine Date Status Refusal Reason influenza virus vaccine, inactivated 08/23/20 Not Given Parent Or Guardian Refuses 1Result Comment: .5ML IM/LD Lot [id number] [facility] D Exp 9.30.2023 [facility] [phone] 2Result Comment: .3Ml IM/ LD Lot [id number] Exp 10.01.2022 [facility] [phone] Medications budesonide 3 mg oral delayed release [...] 0 Refills, Maintenance, 12/09/22 14:29:00 EST, [facility]/pharmacy #1234, 175, cm, 11/27/22 15:01:00 EST, Height, [...] 11/27/22 13:43:00 EST, Route to Pharmacy Electronically, [facility], Partial fill upon patient request if the prescription is for a schedule II opioi... Start Date: 11/27/22 Status: Ordered loperamide 2 mg oral capsule 1, capsule, By Mouth, Every 4 hours, PRN, # 60 capsule, Refills 0, Tot. Refills 0, Maintenance, NEEDED FOR LOOSE STOOLS, 12/09/22 14:29:00 EST, Route to Pharmacy Electronically, [facility]/pharmacy #1234, 175, cm, 11/27/22 15:01:00 EST, Height, 163.5, kg,... Start Date: 12/09/22 Status: Ordered LORazepam 2 mg oral tablet 1 tablet = 2 mg, By Mouth, Daily at bedtime, for 30 days, MassPat checked, # 30 tablet, 5 Refills, Acute 03/24/23 18:15:00 EDT, 09/25/22 18:15:00 EST, [facility]/pharmacy #1234, 175, cm, 09/15/22 17:17:00 EDT, Height, [...] 1 Refills, Maintenance, 08/26/22 8:54:00 EDT, [facility]/pharmacy #1234, 173, cm, 05/06/22 13:26:00 EDT, Height, 146, kg, 05/06/22 13:26:00 EDT,... Start Date: 08/26/22 Status: Ordered ondansetron 4 mg oral tablet 1 tablet = 4 mg, By Mouth, Every 8 hours, PRN Nausea & Vomiting, # 10 tablet, 0 Refills, Maintenance, 11/27/22 13:45:00 EST, Tablet, [facility] 3, Partial fill upon patient request [...] Refills, Maintenance, 09/23/22 14:32:00 EST, Tablet, [facility]/pharmacy #1234, 175, cm, 09/15/22 17:17:00 EDT, Height, [...] recent to oldest [Reference Range]: 1 Height 175 cm (12/11/22 1:06 PM) Weight 163.5 kg (12/11/22 1:06 PM) Body Mass Index [18.5-24.99 kg/m2] 53.39 kg/m2 *>HHI* (12/11/22 1:06 PM) Social History Social History Type Response Smoking Status Former smoker, quit more than 30 days ago; Interested in cessation: Yes; Patient wants NRT during admission Yes; Type: Cigarettes; Total pack years: 8; Started at age: 18; entered on: 05/06/22 Sex Patient Care team information Care Team Personnel Name: Michelle Fox RN Position: [facility] RN Member Role: Primary Care Nurse Name: Nyasia Cadet NP Position: [facility] Associate Professional Member Role: Primary Care Nurse Address: Address: [address] [place] [address]- Name: Roni Hunt RN Position: [facility] RN Member Role: Primary Care Nurse Name: Roya Jaramillo RN Position: [facility] RN Member Role: Primary Care Nurse Name: Steve Rose RN Position: [facility] RN Member Role: Primary Care Nurse Name: Tamika Mcguire RN Position: [facility] AMB Nurse Member Role: Primary Care Nurse Name: Gomez Daugherty RN Position: [facility] RN Member Role: Primary Care Nurse Name: Paolo Patterson RN Position: [facility] RN Member Role: Primary Care Nurse Name: Clarisa Mederos RN Position: [facility] RN Member Role: Primary Care Nurse Name: Loreta Pitts RN Position: [facility] RN Member Role: Primary Care Nurse Name: Tom White MD Position: Reference Physician Member Role: PCP Address: Address: [address] [place] [address] [place] [address]- Name: Philomena Benavides RN Position: [facility] RN Member Role: Primary Care Nurse Name: Cortney Benavides RN Position: [facility] RN Member Role: Primary Care Nurse Name: Stefany Lewis RN Position: [facility] ED RN W/OE and Tasks Member Role: Primary Care Nurse Name: Chiquita Cuevas RN Position: [facility] RN Member Role: Primary Care Nurse Name: Stefany Hamilton RN Position: [facility] Billing Assistant Member Role: Primary Care Nurse Name: Dee Davila RN Position: [facility] RN Member Role: Primary Care Nurse Name: Natalie Lopez RN Position: [facility] RN Member Role: Primary Care Nurse Name: Juan Diego Anguiano RN Position: [facility] RN Member Role: Primary Care Nurse Address: Address: [address] [place] [address]- Name: Iwona Jones RN Position: [facility] RN Member Role: Primary Care Nurse Name: Angelika Villa RN Position: [facility] RN Member Role: Primary Care Nurse Name: Brandi Holman RN Position: [facility] RN Member Role: Primary Care Nurse Name: Candi Moore RN Position: [facility] SN RN Member Role: Primary Care Nurse Name: Stacy Yadav RN Position: [facility] Billing Assistant Member Role: Primary Care Nurse Name: Naveen RN [place] Position: [facility] SN RN Member Role: Primary Care Nurse Name: Lexis Byers Position: [facility] RN Member Role: Primary Care Nurse Care Team Related Persons Name: XIOMARA HARRELLLUANN Address: home [address] [place] [place] [address] Name: RAMÓN CARTAGENA Address: [place] [address] Name: LING WEIR Address: home [address] [place] [address]
--- OUTSIDE RECORDS SUMMARY | 2023-10-13 11:47 | XMS_ITS | Continuity of Care Document ---
Author Name Unknown Organization [facility] Plastic Kelly sherrie Address [address] [place] [address] [address] [place] [address]- Care Team Providers Care Action Finisher Name Role Phone Christopher RIDDLE, Tom Choudhury Primary Care Physician Encounter [facility] [place] Date(s): 03/21/23 - 03/28/23 [facility] [address] [place], [place] [address] Attending Physician: Carmen DC, Mary Cerda Allergies, [...] 08/26/22 Recorded pneumococcal 23-valent vaccine 04/10/17 Given [id number] 12y+ bivalent booster vax 2 08/26/22 Recorded SARS-CoV-2 (COVID-19) mRNA BNT-162b2 vac 10/19/21 Recorded SARS-CoV-2 (COVID-19) mRNA BNT-162b2 vac 04/07/21 Recorded SARS-CoV-2 (COVID-19) mRNA BNT-162b2 vac 03/17/21 Recorded influenza virus vaccine, inactivated 08/12/21 Gentry rded Not Given Vaccine Date Status Refusal Reason influenza virus vaccine, inactivated 08/23/20 Not Given Parent Or Guardian Refuses 1Result Comment: .5ML IM/LD Lot [id number] [employer] D Exp 08.16.2023 [facility] [phone] 2Result Comment: .3Ml IM/ LD Lot [id number] Exp 10.01.2022 [facility] [phone] Medications budesonide 3 mg oral delayed release capsule See Instructions, TAKE 3 TABLETS DAILY X3 WEEKS THEN 2 TABS DAILY X3 WEEKS THEN 1 TAB DAILY X2 WEEKS THEN STOP, # 77 capsule, 2 Refills, Maintenance, 03/18/23 9:20:00 EDT, [facility] 72773, 173, cm, 03/12/23 12:51:00 EDT, Height, 161.8, [...] tablet, 0 Refills, Maintenance, 02/24/23 8:38:00 EDT, [facility] STORE 90020, 173, cm, 01/27/23 8:03:00 EDT, Height, 164.8, [...] 02/24/23 15:54:00 EDT, Route to Pharmacy Electronically, [facility] STORE 01969, 173, cm, 02/25/2312:35:00 EDT, Height, 164.8, kg, [...] tablet, 1 Refills, Maintenance, 08/26/22 8:54:00 EDT, [facility]/pharmacy #1234, 173, cm, 05/06/22 13:26:00 [...] oldest [Reference Range]: 1 Height 173 cm (03/21/23 1:36 PM) Weight 161 kg (03/21/23 1:36 PM) Body Mass Index [18.5-24.99 kg/m2] 53.79 kg/m2 *>HHI* (03/21/23 1:36 PM) Dry Weight 161 kg (03/21/23 1:36 PM) Dry Weight Obtained Via Standing scale (03/21/23 1:36 PM) Social History Social History Type Response [...] Member Role: Primary Care Nurse Address: Address: [address] [place] [address]- [place] Name: Roni Hunt RN Position: [facility] RN Member Role: Primary Care Nurse Name: Roya Jaramillo RN Position: [facility] RN Member Role: Primary Care Nurse Name: Tamika Mcguire RN Position: [facility] AMB Nurse Member Role: Primary Care Nurse Name: My Fonseca NP Position: [facility] Associate Professional Member Role: Lifetime Consulting Provider Address: Address: [address] [place], [place] [address]E [facility] [place] [address]- Name: Gomez Daugherty RN Position: [facility] RN Member Role: Primary Care Nurse Name: Paolo Patterson RN Position: [facility] RN Member Role: Primary Care Nurse Name: Clarisa Mederos RN Position: [facility] RN Member Role: Primary Care Nurse Name: Loreta Pitts RN Position: [facility] RN Member Role: Primary Care Nurse Name: Tom White MD Position: Reference Physician Member Role: PCP Address: Address: [address] [place] [address] [place] [address]- Name: Philomena Benavides RN Position: [facility] RN Member Role: Primary Care Nurse Name: Cortney Benavides RN Position: [facility] RN Member Role: Primary Care Nurse Name: Gloria Mims RN Position: [facility] RN Member Role: Primary Care Nurse Name: Stefany Lewis RN Position: [facility] ED RN W/OE and Tasks Member Role: Primary Care Nurse Name: Adia Cuevas RN Position: [facility] RN Member Role: Primary Care Nurse Name: Stefany Hamilton RN Position: [facility] Hospital Rotary Peel Oven Tender Member Role: Primary Care Nurse Name: Dee Davila RN Position: [facility] RN Member Role: Primary Care Nurse Name: Natalie Lopez RN Position: [facility] RN Member Role: Primary Care Nurse Name: Juan Diego Anguiano RN Position: [facility] RN Member Role: Primary Care Nurse Address: Address: [address] [place] [address]- [place] Name: Iwona Jones RN Position: [facility] RN Member Role: Primary Care Nurse Name: Angelika Villa RN Position: [facility] RN Member Role: Primary Care Nurse Name: Brandi Holman RN Position: [facility] OB RN Member Role: Primary Care Nurse Name: Candi Moore RN Position: [facility] SN RN Member Role: Primary Care Nurse Name: Stacy Yadav RN Position: [facility] Rotary Peel Oven Tender Member Role: Primary Care Nurse Name: Kenney Hodge RN Position: [facility] RN Member Role: Primary Care Nurse Name: Lexis Byers RN Position: [facility] RN Member Role: Primary Care Nurse Care Team Related Persons Name: JULIO CESAR ADIABASSAM Address: home [address] [place] [address] Name: RAMÓN CARTAGENA Address: [place] [address] Name: LING WEIR Address: home [address] [place] [address]
--- OUTSIDE RECORDS SUMMARY | 2023-10-13 11:47 | XMS_ITS | Continuity of Care Document ---
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 Name Role Phone Christopher RIDDLE, Tom Choudhury Primary Care Physician [phone] Encounter [facility] Date(s): 03/11/23 - 07/09/23 [facility]astic [address] [place], [place] [address] Attending Physician: Osmany Garner MD Allergies, Adverse Reactions, Alerts Substance [...] 08/26/22 Recorded pneumococcal 23-valent vaccine 04/10/17 Given [id number] 12y+ bivalent booster vax 2 08/26/22 Recorded SARS-CoV-2 (COVID-19) mRNA BNT-162b2 vac 10/19/21 Recorded SARS-CoV-2 (COVID-19) mRNA BNT-162b2 vac 04/07/21 Recorded SARS-CoV-2 (COVID-19) mRNA BNT-162b2 vac 03/17/21 Recorded influenza virus vaccine, inactivated 08/12/21 Gentry rded 1Result Comment: .5ML IM/LD Lot [id number] [facility] [employer] D Exp 08.16.2023 [facility] [phone] 2Result Comment: .3Ml IM/ LD Lot [id number] Exp 10.01.2022 [facility] [phone] Medications Albuterol (Eqv-ProAir HFA) Inhalation, Every 6 hours, 0 Refills, Maintenance, 04/10/23 13:27:00 EDT, Partial fill upon patientrequest if the prescription is for a schedule II opioid drug. Start Date: 04/10/23 Status: Ordered dicyclomine 20 mg oral tablet 1 tablet, By Mouth, 3 times a day, # 90 tablet, 0 Refills, Maintenance, 07/02/23 13:53:00 EDT, [facility], 173, cm, 05/07/23 13:17:00 EDT, Height, 163.7, [...] 60 tablet, 1 Refills, Maintenance, 06/11/2313:31:00 EDT, [facility]/pharmacy #1234, 173, cm, 05/07/23 13:17:00 EDT, Height, [...] 04/21/23 15:34:00 EDT, Route to Pharmacy Electronically, [facility]/pharmacy #1234, 173, cm, 04/10/23 13:09:00 EDT, Height, [...] Refills, Maintenance, 06/23/23 9:54:00 EDT, [facility], 173, cm, 05/07/23 13:17:00 EDT, Height, 163.7... [...] Member Role: Primary Care Nurse Address: Address: [address] [place] [address]- Name: Roni Hunt RN Position: S RN Member Role: Primary Care Nurse Name: Roya Jaramillo RN Position: S RN Member Role: Primary Care Nurse Name: My Fonseca NP Position: S Associate Professional Member Role: Lifetime Consulting Provider Address: Address: [address] [place] [address] [address] [facility] [place] [address]- [place] Name: Gomez Daugherty RN Position: [facility] RN Member Role: Primary Care Nurse Name: Paolo Patterson RN Position: [facility] RN Member Role: Primary Care Nurse Name: Clarisa Mederos RN Position: [facility] RN Member Role: Primary Care Nurse Name: Loreta Pitts RN Position: [facility] RN Member Role: Primary Care Nurse Name: Tom White MD Position: Reference Physician Member Role: PCP Address: Address: [address] [place] [address] [place] [address]- [place] Name: Philomena Benavides RN Position: [facility] RN Member Role: Primary Care Nurse Name: Cortney Benavides RN Position: [facility] RN Member Role: Primary Care Nurse Name: Gloria Mims RN Position: [facility] RN Member Role: Primary Care Nurse Name: Stefany Lewis RN Position: [facility] ED RN W/OE and Tasks Member Role: Primary Care Nurse Name: Chiquita Cuevas RN Position: [facility] RN Member Role: Primary Care Nurse Name: Stefany Hamilton RN Position: [facility] Can Line Examiner Member Role: Primary Care Nurse Name: Dee Davila RN Position: [facility] RN Member Role: Primary Care Nurse Name: Natalie Lopez RN Position: [facility] RN Member Role: Primary Care Nurse Name: Juan Diego Anguiano RN Position: [facility] RN Member Role: Primary Care Nurse Address: Address: [address] [place] [address]- [place] Name: Iwona Jones RN Position: [facility] RN Member Role: Primary Care Nurse Name: Angelika Villa RN Position: [facility] RN Member Role: Primary Care Nurse Name: Brandi Holman RN Position: [facility] OB RN Member Role: Primary Care Nurse Name: Candi Moore RN Position: [facility] SN RN Member Role: Primary Care Nurse Name: Stacy Yadav RN Position: [facility] Can Line Examiner Member Role: Primary Care Nurse Name: Kenney Hodge RN Position: [facility] SN RN Member Role: Primary Care Nurse Name: Lexis Byers RN Position: [facility] RN Member Role: Primary Care Nurse Care Team Related Persons Name: RAMÓN HARRELL Address: [address] [place] [address] Name: RAMÓN CARTAGENA Address: [place] [address] Name: CARMELLA LING Address: home [address] [place] [address]
--- OUTSIDE RECORDS SUMMARY | 2023-10-13 11:47 | XMS_ITS | Continuity of Care Document ---
Author Name Unknown Organization [facility] Address [address] [facility], [address] Floor, [address] [place] [address]- Care Team Providers Care Manager Financial Systems Name Role Phone Christopher RIDDLE, Tom Choudhury Primary Care Physician [phone] [id number] Date[facility]s): 11/28/22 - 02/05/23 [facility] [address], 3[address] Floor, [address] [place] [address]- Attending Physician: Sam Tinsley MD Admitting Physician: Sam Tinsley MD Allergies, Adverse Reactions, Alerts Substance Reaction [...] 08/26/22 Recorded pneumococcal 23-valent vaccine 04/10/17 Given [id number] 12y+ bivalent booster vax 2 08/26/22 Recorded SARS-CoV-2 (COVID-19) mRNA BNT-162b2 vac 10/19/21 Recorded SARS-CoV-2 (COVID-19) mRNA BNT-162b2 vac 04/07/21 Recorded SARS-CoV-2 (COVID-19) mRNA BNT-162b2 vac 03/17/21 Recorded influenza virus vaccine, inactivated 08/12/21 Gentry rded Not Given Vaccine Date Status Refusal Reason influenza virus vaccine, inactivated 08/23/20 Not Given Parent Or Guardian Refuses 1Result Comment: .5ML IM/LD Lot [id number] [facility] D Exp 08.16.2023 [facility] [phone] 2Result Comment: .3Ml IM/ LD Lot [id number] Exp 10.01.2022 [facility] [phone] Medications budesonide 3 mg oral delayed release capsule See Instructions, TAKE 3 TABLETS DAILY X3 WEEKS THEN 2 TABS DAILY X3 WEEKS THEN 1 TAB DAILY X2 WEEKS THEN STOP, # 77 capsule, 2 Refills, Maintenance, 12/24/22 8:57:00 EST, [facility], 175, cm, 12/22/22 3:33:00 EST, Height, 163.5, kg, 12/17/22 13:... Start Date: 12/24/22 Status: Ordered busPIRone 7.5 mg oral tablet 1 tablet = 7.5 mg, By Mouth, 2 times a day Start Date: 11/25/22 Status: Ordered dicyclomine 20 mg oral tablet 1 tablet, By Mouth, 3 times a day, # 90 tablet, 0 Refills, Maintenance, 12/09/22 14:29:00 EST, [facility]/pharmacy #1234, 175, cm, 11/27/22 15:01:00 EST, Height, 163.5, kg, 11/24/22 14:49:00 EST, Dry Weight Start Date: 12/09/22 Status: Ordered docusate sodium 100 mg oral capsule 100 mg, 1, capsule, By Mouth, 2 times a day, # 20 capsule, Refills 0, Tot. Refills 0, Maintenance, 01/07/23 16:27:00 EST, Route to Pharmacy Electronically, [facility], Partial fill uponpatient request [...] 13:43:00 EST, Route to Pharmacy Electronically, [facility], Partial fill upon patient request if the prescription is for a schedule II opioi... Start Date: 11/27/22 Status: Ordered loperamide 2 mg oral capsule 1, capsule, By Mouth, Every 4 hours, PRN, # 60 capsule, Refills 0, Maintenance, NEEDED FOR LOOSESTOOLS, 01/21/23 16:35:00 EST, Route to Pharmacy Electronically, [facility] STORE 07002, 173, cm, 01/02/2317:14:00 EST, Height, 163.3, kg, 01/02/23 17:14:00... Start Date: 01/21/23 Status: Ordered LORazepam 2 mg oral tablet 1 tablet = 2 mg, By Mouth, Daily at bedtime, for 30 days, MassPat checked, # 30 tablet, 5 Refills, Acute 03/24/23 18:15:00 EDT, 09/25/22 18:15:00 EST, [facility]/pharmacy #1234, 175, cm, 09/15/22 17:17:00 EDT, Height, [...] Refills, Maintenance, 01/07/23 16:25:00 EST, Tablet, [facility] 3, Partial fill upon patient request [...] 5 Refills, Maintenance, 09/23/22 14:32:00 EST, Tablet, [facility]/pharmacy #1234, 175, cm, 09/15/22 17:17:00 EDT, Height, [...] oldest [Reference Range]: 1 Height 175 cm (12/31/22 9:02 AM) Weight 163.5 kg (12/31/22 9:02 AM) Social History Social History Type Response [...] Role: Primary Care Nurse Address: Address: [address] [place] [address]- Name: Roni Hunt RN Position: [facility] [...] Reference Physician Member Role: PCP Address: Address: [address] [place] [address]- Name: Philomena Benavides RN [facility] Care Nurse Name: Stefany Hamilton RN Position: [facility] Coiler Operator Member Role: Primary Care Nurse Name: Dee Davila RN Position: [facility] RN Member Role: Primary Care Nurse Name: Natalie Lopez RN Position: [facility] RN Member Role: Primary Care Nurse Name: Juan Diego Anguiano RN Position: [facility] RN Member Role: Primary Care Nurse Address: Address: [address] [place] [address]- Name: Iwona Jones RN [facility] Care Nurse Name: Stacy Yadav RN Position: [facility] Hospital Coiler Operator Member Role: Primary Care Nurse Name: Kenney Hodge RN Position: [facility] SN RN Member Role: Primary Care Nurse Name: Lexis Byers RN Position: [facility] RN Member Role: Primary Care Nurse Care Team Related Persons Name: RAMÓN HARRELL Address: home [address] [place] [address] Name: RAMÓN CARTAGENA Address: home [place], [place] Name: LING WEIR Address: home [address] [place] [address] [address] [place] [address]
--- OUTSIDE RECORDS SUMMARY | 2023-10-13 11:47 | XMS_ITS | Continuity of Care Document ---
Author Name Unknown Organization [facility] Address [address] [facility] [address], [address] d Floor, [address] [place] [address]- Care Team Providers Care Duck Farmer Name Role Phone Christopher RIDDLE, Tom Choudhury Primary Care Physician Encounter [facility] Date(s): 03/07/23 - 04/06/23 [facility] [address], 3[address] Floor, [address] [place] [id number] Allergies, Adverse Reactions, Alerts Substance [...] 08/26/22 Recorded pneumococcal 23-valent vaccine 04/10/17 Given [id number] 12y+ bivalent booster vax 2 08/26/22 Recorded SARS-CoV-2 (COVID-19) mRNA BNT-162b2 vac 10/19/21 Recorded SARS-CoV-2 (COVID-19) mRNA BNT-162b2 vac 04/07/21 Recorded SARS-CoV-2 (COVID-19) mRNA BNT-162b2 vac 03/17/21 Recorded influenza virus vaccine, inactivated 08/12/21 Gentry rded Not Given Vaccine Date Status Refusal Reason influenza virus vaccine, inactivated 08/23/20 Not Given Parent Or Guardian Refuses 1Result Comment: .5ML IM/LD Lot [id number] [employer] D Exp 08.16.2023 [facility] [phone] 2Result Comment: .3Ml IM/ LD Lot [id number] Exp 10.01.2022 [facility] [phone] Medications budesonide 3 mg oral delayed release capsule See Instructions, TAKE 3 TABLETS DAILY X3 WEEKS THEN 2 TABS DAILY X3 WEEKS THEN 1 TAB DAILY X2 WEEKS THEN STOP, # 77 capsule, 2 Refills, Maintenance, 03/18/23 9:20:00 EDT, [facility] [id number], 173, cm, 03/12/23 12:51:00 EDT, Height, 161.8, [...] 02/24/23 8:38:00 EDT, [facility] [id number], 173, cm, 01/27/23 8:03:00 EDT, Height, 164.8, [...] to Pharmacy Electronically, [facility] [id number], 173, cm, 02/25/2312:35:00 EDT, Height, 164.8, kg, [...] Team Personnel Name: Michelle Fox RN Position: [facility] RN Member Role: Primary Care Nurse Name: Nyasia Cadet NP Position: [facility] Associate Professional Member Role: Primary Care Nurse Address: Address: [address] [place] [address]- Name: Roni Hunt RN Position: [facility] RN Member Role: Primary Care Nurse Name: Roya Jaramillo RN Position: [facility] RN Member Role: Primary Care Nurse Name: Tamika Mcguire RN Position: [facility] [place] Nurse Member Role: Primary Care Nurse Name: My Fonseca NP Position: S Associate Professional Member Role: Lifetime Consulting Provider Address: Address: [address] [place], [place] [address] [place] [place] [address]- Name: Gomez Daugherty RN Position: [facility] RN Member Role: Primary Care Nurse Name: Paolo Patterson RN Position: [facility] RN Member Role: Primary Care Nurse Name: Clarisa Mederos RN Position: [facility] RN Member Role: Primary Care Nurse Name: Loreta Pitts RN Position: [facility] RN Member Role: Primary Care Nurse Name: Tom White MD Position: Reference Physician Member Role: PCP Address: Address: [address] [place] [address] [place] [address]- Name: Philomena Benavides RN Position: [facility] RN Member Role: Primary Care Nurse Name: Cortney Benavides RN Position: [facility] RN Member Role: Primary Care Nurse Name: Gloria Mims RN Position: [facility] RN Member Role: Primary Care Nurse Name: Stefany Lewis RN Position: [facility] ED RN W/OE and Tasks Member Role: Primary Care Nurse Name: Adia Cuevas RN Position: [facility] RN Member Role: Primary Care Nurse Name: Stefany Hamilton RN Position: [facility] Supervisor Paper Machine Member Role: Primary Care Nurse Name: Dee Davila RN Position: [facility] RN Member Role: Primary Care Nurse Name: Natalie Lopez RN Position: [facility] RN Member Role: Primary Care Nurse Name: Juan Diego Anguiano RN Position: [facility] RN Member Role: Primary Care Nurse Address: Address: [address] [place] [address]- Name: Iwona Jones RN Position: [facility] RN Member Role: Primary Care Nurse Name: Angelika Villa RN Position: [facility] RN Member Role: Primary Care Nurse Name: Brandi Holman RN Position: [facility] OB RN Member Role: Primary Care Nurse Name: Candi Moore RN Position: [facility] SN RN Member Role: Primary Care Nurse Name: Stacy Yadav RN Position: [facility] Supervisor Paper Machine Member Role: Primary Care Nurse Name: Kenney Hodge RN Position: [facility] SN RN Member Role: Primary Care Nurse Name: Lexis Byers RN Position: [facility] RN Member Role: Primary Care Nurse Care Team Related Persons Name: ADIA HARRELLBASSAM Address: home [address] [place] [address] Name: RAMÓN CARTAGENA Address: [place] [address] Name: LING WEIR Address: [address] [place] [address]
--- OUTSIDE RECORDS SUMMARY | 2023-10-13 11:47 | XMS_ITS | Continuity of Care Document ---
Author Name Unknown Organization [facility] Address [address] [facility], 3r d Floor, [address] [place] [address]- Care Team Providers Care Payroll And Benefits Manager Name Role Phone Christopher RIDDLE, Tom Choudhury Primary Care Physician Encounter [facility] [place] Date(s): 02/17/23 - 04/16/23 [facility] [address], [address] Floor, [address] [place] [address] Attending Physician: Not on Staff, Attending MD Allergies, Adverse Reactions, Alerts Substance Reaction [...] 08/26/22 Recorded pneumococcal 23-valent vaccine 04/10/17 Given [id number] 12y+ bivalent booster vax 2 08/26/22 Recorded SARS-CoV-2 (COVID-19) mRNA BNT-162b2 vac 10/19/21 Recorded SARS-CoV-2 (COVID-19) mRNA BNT-162b2 vac 04/07/21 Recorded SARS-CoV-2 (COVID-19) mRNA BNT-162b2 vac 03/17/21 Recorded influenza virus vaccine, inactivated 08/12/21 Gentry rded Not Given Vaccine Date Status Refusal Reason influenza virus vaccine, inactivated 08/23/20 Not Given Parent Or Guardian Refuses 1Result Comment: .5ML IM/LD Lot [id number] [employer] D Exp 08.16.2023 [facility] [phone] 2Result Comment: .3Ml IM/ LD Lot [id number] Exp 10.01.2022 [facility] [phone] Medications Albuterol (Eqv-ProAir HFA) Inhalation, Every 6 hours, 0 Refills, Maintenance, 04/10/23 13:27:00 EDT, Partial fill upon patientrequest if the prescription is for a schedule II opioid drug. Start Date: 04/10/23 Status: Ordered dicyclomine 20 mg oral tablet 1 tablet, By Mouth, 3 times a day, # 90 tablet, 0 Refills, Maintenance, 04/15/23 8:59:00 EDT, [facility] STORE [id number], 173, cm, 04/10/23 13:09:00 EDT, Height, 165, kg, 04/10/23 13:09:00 EDT, Dry Weight Start Date: 04/15/23 Status: Ordered escitalopram 10 mg oral tablet [...] 15:54:00 EDT, Route to Pharmacy Electronically, [facility] ST[facility] [id number], 173, cm, 02/25/2312:35:00 EDT, Height, 164.8, kg, 02/11/23 10:22:00... Start Date: 02/24/23 Status: Ordered ondansetron 4 mg oral tablet 1 tablet = 4 mg, By Mouth, Every 8 hours, PRN Nausea & Vomiting, # 10 tablet, 0 Refills, Acute 04/17/23 18:00:00 EDT, 04/10/23 17:40:00 EDT, Tablet, [facility]/pharmacy #[id number], Partial fill upon patient request if the prescription is for a schedule II opioid... Start Date: 04/10/23 Stop Date: 04/17/23 Status: Ordered Risperidone = 0.5 mg, By [...] Member Role: Primary Care Nurse Address: Address: [address] [place] [address]- Name: Roni Hunt RN Position: [facility] RN Member Role: Primary Care Nurse Name: Roya Jaramillo RN Position: S RN Member Role: Primary Care Nurse Name: Tamika Mcguire RN Position: [facility] AMB Nurse Member Role: Primary Care Nurse Name: My Fonseca NP Position: [facility] Associate Professional Member Role: Lifetime Consulting Provider Address: Address: [address] [place], [place] [address]E [facility] [place] [address]- Name: Gomez Daugherty RN Position: S RN Member Role: Primary Care Nurse Name: Paolo Patterson RN Position: S RN Member Role: Primary Care Nurse Name: Clarisa Mederos RN Position: S RN Member Role: Primary Care Nurse Name: Loreta Pitts RN Position: S RN Member Role: Primary Care Nurse Name: Tom White MD Position: Reference Physician Member Role: PCP Address: Address: [address] [place] [address]- [place] Name: Philomena Benavides RN Position: [facility] RN Member Role: Primary Care Nurse Name: Cortney Benavides RN Position: [facility] RN Member Role: Primary Care Nurse Name: Gloria Mims RN Position: [facility] RN Member Role: Primary Care Nurse Name: Stefany Lewis RN Position: [facility] ED RN W/OE and Tasks Member Role: Primary Care Nurse Name: Chiquita Cuevas RN Position: [facility] RN Member Role: Primary Care Nurse Name: Stefany Hamilton RN Position: [facility] Poultry Tender Member Role: Primary Care Nurse Name: Dee Davila RN Position: [facility] RN Member Role: Primary Care Nurse Name: Natalie Lopez RN Position: [facility] RN Member Role: Primary Care Nurse Name: Juan Diego Anguiano RN Position: [facility] RN Member Role: Primary Care Nurse Address: Address: [address] [place] [address]- Name: Iwona Jones RN Position: [facility] RN Member Role: Primary Care Nurse Name: Angelika Villa RN Position: [facility] RN Member Role: Primary Care Nurse Name: Brandi Holman RN Position: [facility] OB RN Member Role: Primary Care Nurse Name: Candi Moore RN Position: [facility] SN RN Member Role: Primary Care Nurse Name: Stacy Yadav RN Position: [facility] Poultry Tender Member Role: Primary Care Nurse Name: Naveen RN [place] Position: [facility] SN RN Member Role: Primary Care Nurse Name: Lexis Byers RN Position: [facility] RN Member Role: Primary Care Nurse Care Team Related Persons Name: RAMÓN HARRELL Address: home [address] [place] [address] Name: RAMÓN CARTAGENA Address: [place] [address] Name: LING WEIR Address: home [address] [place] [address]
--- OUTSIDE RECORDS SUMMARY | 2023-10-13 11:47 | XMS_ITS | Continuity of Care Document ---
Author Name Unknown Organization [facility] Address [address] [facility], [address]r d Floor, [address] [place] [address]- Care Team Providers Care Support Services Coordinator Name Role Phone Christopher RIDDLE, Tom Choudhury Primary Care Physician [phone] Encounter [facility] Date(s): 12/23/22 - 01/22/23 [facility] [address], 3[address], [address] [place] [address]- Allergies, Adverse Reactions, Alerts Substance Reaction Severity [...] 08/26/22 Recorded pneumococcal 23-valent vaccine 04/10/17 Given [id number] 12y+ bivalent booster vax 2 08/26/22 Recorded SARS-CoV-2 (COVID-19) mRNA BNT-162b2 vac 10/19/21 Recorded SARS-CoV-2 (COVID-19) mRNA BNT-162b2 vac 04/07/21 Recorded SARS-CoV-2 (COVID-19) mRNA BNT-162b2 vac 03/17/21 Recorded influenza virus vaccine, inactivated 08/12/21 Gentry rded Not Given Vaccine Date Status Refusal Reason influenza virus vaccine, inactivated 08/23/20 Not Given Parent Or Guardian Refuses 1Result Comment: .5ML IM/LD Lot [id number] [facility] D Exp 08.16.2023 [facility] [phone] 2Result Comment: .3Ml IM/ LD Lot [id number] Exp 10.01.2022 [facility] [phone] Medications budesonide 3 mg oral delayed release capsule See Instructions, TAKE 3 TABLETS DAILY X3 WEEKS THEN 2 TABS DAILY X3 WEEKS THEN 1 TAB DAILY X2 WEEKS THEN STOP, # 77 capsule, 2 Refills, Maintenance, 12/24/22 8:57:00 EST, [facility] STORE [id number], 175, cm, 12/22/22 3:33:00 EST, Height, 163.5, [...] Route to Pharmacy Electronically, [facility], Partial fill upon patient request if the prescription is for a schedule II opioi... Start Date: 11/27/22 Status: Ordered loperamide 2 mg oral capsule 1, capsule, By Mouth, Every 4 hours, PRN, # 60 capsule, Refills 0, Maintenance, NEEDED FOR LOOSESTOOLS, 01/21/23 16:35:00 EST, Route to Pharmacy Electronically, [facility] STORE [id number], 173, cm, 01/02/2317:14:00 EST, Height, 163.3, kg, [...] 01/07/23 16:25:00 EST, Tablet, [facility] 3, Partial fill upon patient request [...] Team Personnel Name: Michelle Fox RN Position: [facility] RN Member Role: Primary Care Nurse Name: Nyasia Cadet NP Position: [facility] Associate Professional Member Role: Primary Care Nurse Address: Address: [address] [place] [address]- [place] Name: Roni Hunt RN Position: [facility] RN Member Role: Primary Care Nurse Name: Roya Jaramillo RN Position: [facility] RN Member Role: Primary Care Nurse Name: Steve Rose RN Position: [facility] RN Member Role: Primary Care Nurse Name: Tamika Mcguire RN Position: [facility] AMB Nurse Member Role: Primary Care Nurse Name: Gomez Daugherty RN Position: [facility] RN Member Role: Primary Care Nurse Name: Paolo Patterson RN Position: [facility] RN Member Role: Primary Care Nurse Name: Clarisa Mederos RN Position: [facility] RN Member Role: Primary Care Nurse Name: Loreta Ptits RN Position: [facility] RN Member Role: Primary Care Nurse Name: Tom White MD Position: Reference Physician Member Role: PCP Address: Address: [address] [place] [address]- [place] Name: Philomena Benavides RN Position: [facility] RN Member Role: Primary Care Nurse Name: Cortney Benavides RN Position: [facility] RN Member Role: Primary Care Nurse Name: Stefany Lewis RN Position: [facility] ED RN W/OE and Tasks Member Role: Primary Care Nurse Name: Adia Cuevas RN Position: [facility] RN Member Role: Primary Care Nurse Name: Stefany Hamilton RN Position: [facility] Thermal Cutter Helper Member Role: Primary Care Nurse Name: Dee Davila RN Position: [facility] RN Member Role: Primary Care Nurse Name: Natalie Lopez RN Position: [facility] RN Member Role: Primary Care Nurse Name: Juan Diego Anguiano RN Position: [facility] RN Member Role: Primary Care Nurse Address: Address: [address] [place] [address]- [place] Name: Iwona Jones RN Position: [facility] RN Member Role: Primary Care Nurse Name: Angelika Villa RN Position: [facility] RN Member Role: Primary Care Nurse Name: Brandi Holman RN Position: [facility] RN Member Role: Primary Care Nurse Name: Candi Moore RN Position: [facility] SN RN Member Role: Primary Care Nurse Name: Stacy Yadav RN Position: [facility] Thermal Cutter Helper Member Role: Primary Care Nurse Name: Kenney [place] RN Position: [facility] RN Member Role: Primary Care Nurse Care Team Related Persons Name: JULIO CESAR ADIABASSAM Address: home [address] [place] [address] Name: RAMÓN CARTAGENA Address: [place] [address] Name: LING WEIR Address: home [address] [place] [address]
[2023-10-13 11:51] LABS: Alanine Aminotransferase 28 U/L (0-31); Alkaline Phosphatase 82 U/L (39-117); Aspartate Amino Transferase 26 U/L (5-31); Bilirubin Direct 0.1 mg/dL (0.0-0.5); Bilirubin Total 0.3 mg/dL (0.0-1.0); Lipase 12 U/L (8-78); Total Protein 7.1 g/dL (6.5-8.0)
[2023-10-13] MEDS: Lacosamide 100 MG TABLET 150 MG PO (11:52)
[2023-10-13] MEDS: Ondansetron ODT 4 MG TAB.RAPDIS TRANSLINGU (11:52)
[2023-10-13] MEDS: Acetaminophen 325 MG TABLET 975 MG PO (11:52)
[2023-10-13 12:04] VITALS: BP 155/94; PULSE 95; RESP 15; O2SAT 96
[2023-10-13 12:07] LABS: Appearance Urine Turbid; Color Urine Yellow; Glucose Urine UA Negative (Negative); Leukocyte Esterase Urine Small (1+) (Negative); Nitrite Urine Negative (Negative); PH 5.5 (5.0-9.0); Specific Gravity - Urine 1.015 (1.005-1.025); UMIC TRIGGER UACC YES; Urine Blood Negative (Negative); Urine Ketones Negative (Negative); Urine Protein Negative (Neg-Trace)
[2023-10-13 12:19] LABS: Bacteria Urine 4+ (None Seen); Squamous Epithelial Cell Urine >20 /HPF (0-2); UACC Culture Trigger YES; WBC Urine 21-50 /HPF (0-5)
--- NOTE | 2023-10-13 12:30 | PC.NURSE ---
reporting unable to have bowel movement. i'm cramping like I have to go .
== END 2023-10-13 13:52 | disposition home or self-care (01) ==
PROVIDERS: Nurse Practitioner Family; Emergency Provider Emergency Medicine; PCP Nurse Practitioner Family
DX: K52.9 Noninfective gastroenteritis and colitis, unspecified (principal); E11.9 Type 2 diabetes mellitus without complications; I10 Essential (primary) hypertension; E78.00 Pure hypercholesterolemia, unspecified; E66.9 Obesity, unspecified; Z68.43 Body mass index [BMI] 50.0-59.9, adult; Z79.4 Long term (current) use of insulin; Z79.899 Other long term (current) drug therapy; Z87.891 Personal history of nicotine dependence
CPT/HCPCS: 36415; 80048; 80076; 81001; 83690; 85025; 87086; 99283

== ENCOUNTER 2023-10-22 08:53 | Outpatient (REF) | payer OTHER, SELFPAY ==
[2023-10-22 11:17] LABS: MANUAL DIFF FLAG NO
[2023-10-22 11:22] LABS: Basophils Absolute Auto 0.1 X10*3/uL (0.0-0.2); Eosinophils Absolute Auto 0.3 X10*3/uL (0.0-0.4); Eosinophils Percent Auto 2.8 % (0-4); Hematocrit 38.5 % (37.0-47.0); Hemoglobin 12.5 g/dl (12.0-16.0); Imm Gran Abs Auto 0.19 X10*3/uL (0.00-0.03); Imm Gran Pct Auto 2.1 % (0.0-0.4); Lymphocytes Absolute Auto 2.2 X10*3/uL (1.2-4.9); Lymphocytes Percent Auto 23.9 % (20-40); Mean Corpuscular HGB Conc 32.5 g/dl (31.0-35.0); Mean Corpuscular Volume 86.3 fL (80.0-98.0); Mean Platelet Volume 10.3 fL (9.4-12.3); Monocytes Absolute Auto 0.5 X10*3/uL (0.1-1.2); Neutrophils Absolute Auto 5.8 x10*3/uL (2.0-8.3); Neutrophils Percent Auto 64.2 % (45-73); Platelet Count 332 X10*3/uL (160-400); Red Blood Count 4.46 X10*6/uL (4.20-5.50)
[2023-10-22 11:46] LABS: Alanine Aminotransferase 31 U/L (0-31); Albumin Level 4.2 g/dL (3.5-5.0); Alkaline Phosphatase 88 U/L (39-117); Anion Gap 14 (12-20); Aspartate Amino Transferase 24 U/L (5-31); Bilirubin Total 0.4 mg/dL (0.0-1.0); Blood Urea Nitrogen 18 mg/dL (9-16); Calcium 10.7 mg/dL (8.4-10.2); Carbon Dioxide 25 mmol/L (22-29); Chloride 103 mmol/L (96-108); Cholesterol 167 mg/dL (<200); Estimated Glomerular Filt Rate > 60; Glucose Fasting 170 mg/dL (60-99); HDL Cholesterol 28 mg/dL (>40); LDL Cholesterol Calculated 73 mg/dL (<100); Potassium 4.2 mmol/L (3.3-5.1); Sodium 138 mmol/L (135-145); Total Protein 7.4 g/dL (6.5-8.0); Triglycerides 330 mg/dL (<150)
[2023-10-22 11:53] LABS: TSH reflex Free T4 1.11 uIU/mL (0.32-4.0); Vitamin D 25-OH Total 33.1 ng/mL (>30)
[2023-10-22 12:09] LABS: Folate 6.5 ng/mL (> or = 4.0); Vitamin B12 704 pg/mL (200-900)
== END 2023-10-22 08:54 | disposition home or self-care (01) ==
LOC: HO.WFDLDS 08:53
PROVIDERS: Visit Provider Nurse Practitioner Family
DX: Z00.00 Encounter for general adult medical examination without abnormal findings (principal); D51.0 Vitamin B12 deficiency anemia due to intrinsic factor deficiency; E55.9 Vitamin D deficiency, unspecified
CPT/HCPCS: 36415; 80053; 80061; 82306; 82607; 82746; 84443; 85025

== ENCOUNTER 2023-10-31 15:13 | Outpatient (AMB) | payer OTHER, SELFPAY ==
--- NOTE | 2023-10-31 15:25 | A.OFFPC_ITS ---
Vital Signs 10/31/23 15:26 10/31/23 16:07 Height 5 ft 8 in Weight 349 lb 6 oz BMI 53.1 BP 136/74 120/66 Blood Pressure Location Rt brachial Rt brachial Position Sitting Sitting Respiration 13 Pulse 114 H Pulse Source Pulse Oximeter Temp 97.7 F Temp Source Temporal Artery Scan Pulse Oximetry (%) 98 Oxygen Delivery Method Room Air Intake Visit Reasons: 1 mos DM, HTN, labs review Intake Note: Last A1c was 8.8 on 09/11/23. 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 Bar And Segment Required: No Accompanied by: Self / Same As Patient Allergies gabapentin [From NEURONTIN] Allergy (Unknown, Verified 10/31/23 15:55) ANAPHYLAXIS midazolam [From VERSED] Allergy (Unknown, Verified 10/31/23 15:55) ANAPHYLAXIS ketorolac [From Toradol] Adverse Reaction (Intermediate, Verified 10/31/23 15:55) Hives latex Adverse Reaction (Intermediate, Verified 10/31/23 15:55) Rash Sulfa (Sulfonamide Antibiotics) Adverse Reaction (Intermediate, Verified 10/31/23 15:55) Rash Medication List - Last Reconciled 10/31/23 by Preeti Souza CNP albuterol sulfate 90 mcg/actuation (Ventolin HFA) inhalation cholecalciferol (vitamin D3) 50 mcg PO DAILY clonazepam 0.5 mg PO DAILY PRN cyanocobalamin (vitamin B-12) 1,000 mcg IM Q4W 30 days cyclobenzaprine 10 mg PO TID PRN dicyclomine 20 mg PO TID dulaglutide (Trulicity) 1.5 mg (0.5 mL) subcut QWEEK 4 weeks escitalopram oxalate (Lexapro) 10 mg PO DAILY fenofibrate nanocrystallized mg PO hydroxyzine HCl 50 mg PO BID PRN ibuprofen 600 mg PO Q8H PRN insulin glargine (Lantus Solostar U-100 Insulin) 34 units subcut QPM lacosamide 150 mg PO BID lisinopril 40 mg PO DAILY 90 days loperamide 2 mg PO Q6H PRN lorazepam 1 mg PO DAILY PRN melatonin 6 mg PO BEDTIME PRN naratriptan 1 mg PO DAILY PRN omeprazole 40 mg PO DAILY 90 days ondansetron 4 mg PO Q8H 4 days pen needle, diabetic (BD Ultra-Fine Short Pen Needle) As directed pregabalin 200 mg (2 x 100 mg) PO BID 30 days promethazine 12.5 mg (10 mL) PO Q6H PRN risperidone 3 mg PO BEDTIME syringe with needle, safety As directed Tobacco use date assessed: 09/11/23 Dental Screening Dental Screen Date: 10/31/23 Did you have a dental visit in the last 12 months?: Yes Did you have a dental problem in the last 6 months where you did not have access to dental care?: No Was dental information given to patient?: Patient has dentist HPI HPI Comments History of Present Illness Details 38-year-old female presents for diabetes and hypertension follow-up Her last A1c was 8.8% in June. She was advised to monitor blood glucose, record readings, and bring to this visit She reports fasting glucose between 145-165 and random glucose in the 170s She admits to taking her medications as prescribed without adverse reactions No acute symptoms at this time [facility] Medical History Memory loss due to medical condition Hypertension High cholesterol C. difficile colitis Neuroforaminal stenosis of lumbar spine Hidradenitis suppurativa Degenerative joint disease of spine Bipolar disorder Depression Anxiety Type 2 diabetes mellitus Epilepsy Fibromyalgia, primary Migraine Surgical History Status post surgical removal of malignant neoplasm of skin Status post placement of VNS (vagus nerve stimulation) device History of eye surgery Hx of endoscopy History of laparoscopic appendectomy H/O wisdom tooth extraction Hx of tubal ligation Hx of tonsillectomy History of total hysterectomy with bilateral salpingo-oophorectomy (BSO) Hx of colonoscopy Hx laparoscopic cholecystectomy History of fundoplication Hx of section Family History Paternal Grandmother Rheumatoid arthritis Thyroid cancer Maternal Grandmother Arthritis Myocardial infarction Ovarian cyst Thyroid disease Cancer Paternal Uncle Colon cancer Mother Ovarian cyst Father Diabetes Depression Hypertension High cholesterol Skin cancer Maternal Grandfather FH: prostate cancer Paternal Grandfather Bipolar 1 disorder Social History Housing: Other (Trailer) Patient Tobacco Use Status: Former Tobacco user e-Cigarette/Vaping Use: Never Used service: No Current occupational status: disabled Cognitive needs: No Hearing needs: No Vision needs: No Questionnaire Thrive Questionnaire Date Thrive assessed: 09/11/23 CONCEPCION-7 AMB Questionnaire CONCEPCION-7 Date CONCEPCION - 7 assessed: 09/11/23 Source: Developed by Drs. Ronnie Pelayo, Isabella Yadav, Jose A Can and colleagues, with an educational darline from [employer]. Review of Systems Const Details: Const Denies chills, Denies fatigue, Denies fever(s), Denies headache(s) and Denies weakness ENT Denies dizziness and Denies headache(s) Card Denies chest pain, Denies lightheadedness, Denies dyspnea and Denies other (Palpitations) Resp Denies cough, Denies dyspnea, Denies wheezing and Denies other ( shortness of breath) GI Denies abdominal pain, Denies melena, Denies hematochezia, Denies change in bowel habits, Denies dyspepsia and Denies nausea Denies hematuria and Denies dysuria Musc Denies abnormal gait, Denies myalgias, Denies arthralgias, Denies numbness and Denies tingling Skin/Breast Denies rash, Denies unusual bruising and Denies wounds Neuro Denies abnormal gait, Denies dizziness, Denies headache(s), Denies memory loss, Denies numbness, Denies Sensory deficit (Neuro), Denies tingling and Denies weakness Psych Denies anxiety, Denies depression, Denies memory loss Endo Denies cold intolerance, Denies fatigue, Denies heat intolerance, Denies polydipsia and Denies polyuria Aller/Immun Denies wheezing Physical exam (Primary Care) Vital Signs: Last Vital Signs Temp 97.7 F 10/31/23 15:26 Pulse 114 H 10/31/23 15:26 Resp 13 10/31/23 15:26 BP 136/74 10/31/23 15:26 Pulse Ox 98 10/31/23 15:26 Oxygen Delivery Method Room Air 10/31/23 15:26 BMI result Body Mass Index 53.1 Tobacco/Smoking Status: Tobacco use Status Tobacco use date assessed 09/11/23 10/31/23 15:25 Patient Tobacco Use Status Former Tobacco user 10/31/23 15:25 e-Cigarette/Vaping Use Never Used 10/31/23 15:25 Thrive Assessment: Date of Thrive Assessment Date Thrive assessed 09/11/23 10/31/23 15:25 Const Other: General: no acute distress and well developed Nutritional Appearance: well nourished Orientation/consciousness: patient oriented x3 HENMT Head: Yes normocephalic and Yes atraumatic Eyes General: appearance normal, both eyes and all related structures Pupils: Equal, round and reactive pupils present EOM: EOMs intact bilaterally Resp Effort & Inspection: normal respiratory effort Auscultation: clear to auscultation bilaterally Cardio Rate: regular rate Rhythm: regular rhythm Heart sounds: S1 normal heart sound present, S2 normal heart sound present, no gallops, no murmurs and no rubs GI Palpation (GI): No Abdominal aortic bruit present, Soft to palpation, nontender, No hepatosplenomegaly present and No Rebound tenderness present Auscultation: normal bowel sounds General: Yes no CVA tenderness Back/Spine/Pelvis Back: no CVA tenderness Cervical Spine: cervical ROM normal and No Cervical spine tenderness Thoracic/Lumbar Spine: thoraco-lumbar ROM normal, No pain with thoraco-lumbar ROM, No thoracic spinal tenderness and No lumbar spinal tenderness Extrem General: Yes normal to inspection, No edema and No calf tenderness Skin General: warm and dry. Normal skin color. Normal skin turgor Neuro General: patient oriented x3, gait normal and no focal neuro deficit Cranial nerves: Yes Equal, round and reactive pupils present Cognition (Neuro): normal cognition Gait exam (Neuro): Normal gait present Sensory Exam: No Sensory deficit (Neuro) Psych Appearance: grossly normal Affect: normal affect Attitude: cooperative Thought process: Normal thought process present Assessment and Plan Assessment & Plan (1) Type 2 diabetes mellitus: Code(s): E11.9 - Type 2 diabetes mellitus without complications Qualifiers: Diabetes mellitus [facility] insulin use: without [facility] use Diabetes mellitus complication status: without complication Qualified Code(s): E11.9 - Type 2 diabetes mellitus without complications Plan: Her last A1c was 8.8% in June She reports fasting glucose between 145-165 and random glucose in the 170s Continue current treatment regimen ADA diet and routine exercise encouraged Will recheck A1c next month Recent LDL was 73. Will recheck this as well Will check urine microalbumin/creatinine ratio Advised to get fasting blood work done before her next visit Follow-up next month. May perform an extended physical exam if time allows Return sooner with symptoms or concerns Verbalized understanding and agreed with treatment plan (2) Hypertension: Code(s): I10 - Essential (primary) hypertension Qualifiers: Hypertension type: primary hypertension Qualified Code(s): I10 - Essential (primary) hypertension Plan: Resting blood pressure is 120/66, within goal of less than 130/80 Continue current treatment regimen Low-sodium diet encouraged Will continue to monitor Verbalized understanding and agreed with the treatment plan (3) Dyslipidemia: Code(s): E78.5 - Hyperlipidemia, unspecified Plan: Recent triglyceride level is elevated, 330. HDL is low, 28 Continue to take fenofibrate as prescribed She notes that she has been making healthy dietary choices Healthy diet and routine exercise encouraged Will recheck lipid panel. Advised to get fasting blood work done before next visit She will follow-up in 1 month Verbalized understanding and agreed with treatment plan Orders: Orders Microalbumin, Random (w Creat) Today E11.9 - Type 2 diabetes mellitus without complications Lipid Panel Today E11.9 - Type 2 diabetes mellitus without complications Referrals Medical Weight Management Referral E66.01 - Morbid (severe) obesity due to excess calories, Z68.43 - Body mass index [BMI] 50.0-59.9, adult Coding Level of Care Code Est Pt Level 3 (22069) Diagnoses Type 2 diabetes mellitus without complication, without long-term current use of insulin E11.9 Diabetes mellitus terminal operator insulin use: without [facility] use Diabetes mellitus complication status: without complication Primary hypertension I10 Hypertension type: primary hypertension Dyslipidemia E78.5
[2023-10-31 15:26] VITALS: BP 136/74; PULSE 114; RESP 13; TEMP 36.5; O2SAT 98; BMI 53.1
[2023-10-31 16:07] VITALS: BP 120/66
== END 2023-10-31 16:27 | disposition home or self-care (01) ==
PROVIDERS: PCP Nurse Practitioner Family; Visit Provider Nurse Practitioner Family
DX: E11.9 Type 2 diabetes mellitus without complications (principal); I10 Essential (primary) hypertension; E78.5 Hyperlipidemia, unspecified
CPT/HCPCS: 99213

== ENCOUNTER 2023-11-18 14:30 | Outpatient (AMB) | payer OTHER, SELFPAY ==
[2023-11-18 14:35] VITALS: BP 118/72; PULSE 121; TEMP 36; O2SAT 95; BMI 53.7
--- NOTE | 2023-11-18 14:35 | A.OFFVIS_ITS ---
Intake Vital Signs 11/18/23 14:35 Height 5 ft 8 in Weight 353 lb 2.888 oz BMI 53.7 BP 118/72 Blood Pressure Location Lt brachial Position Sitting Pulse 121 H Pulse Source Pulse Oximeter Temp 96.8 F Temp Source Skin Pulse Oximetry (%) 95 Oxygen Delivery Method Room Air Intake Visit Reasons: FM Intake Note: Patient presents today for fibro flare and medication management. Requesting Flexeril and Lyrica refills. 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 Accompanied by: Self / Same As Patient Allergies gabapentin [From NEURONTIN] Allergy (Unknown, Verified 11/18/23 14:43) ANAPHYLAXIS midazolam [From VERSED] Allergy (Unknown, Verified 11/18/23 14:43) ANAPHYLAXIS ketorolac [From Toradol] Adverse Reaction (Intermediate, Verified 11/18/23 14:43) Hives latex Adverse Reaction (Intermediate, Verified 11/18/23 14:43) Rash Sulfa (Sulfonamide Antibiotics) Adverse Reaction (Intermediate, Verified 11/18/23 14:43) Rash Medication List - Last Reconciled 11/18/23 by Preeti Cr MD albuterol sulfate 90 mcg/actuation (Ventolin HFA) inhalation cholecalciferol (vitamin D3) 50 mcg PO DAILY clonazepam 0.5 mg PO DAILY PRN cyanocobalamin (vitamin B-12) 1,000 mcg IM Q4W 90 days cyclobenzaprine 10 mg PO TID PRN dicyclomine 20 mg PO TID dulaglutide (Trulicity) 1.5 mg (0.5 mL) subcut QWEEK 4 weeks escitalopram oxalate (Lexapro) 10 mg PO DAILY fenofibrate nanocrystallized mg PO hydroxyzine HCl 50 mg PO BID PRN ibuprofen 600 mg PO Q8H PRN insulin glargine (Lantus Solostar U-100 Insulin) 34 units subcut QPM lacosamide 150 mg PO BID lisinopril 40 mg PO DAILY 90 days loperamide 2 mg PO Q6H PRN lorazepam 1 mg PO DAILY PRN melatonin 6 mg PO BEDTIME PRN naratriptan 1 mg PO DAILY PRN omeprazole 40 mg PO DAILY 90 days ondansetron 4 mg PO Q8H 4 days pen needle, diabetic (BD Ultra-Fine Short Pen Needle) As directed pregabalin 200 mg (2 x 100 mg) PO BID 30 days promethazine 12.5 mg (10 mL) PO Q6H PRN risperidone 3 mg PO BEDTIME syringe with needle, safety As directed HPI HPI Comments History of Present Illness Details 38-year-old female with fibromyalgia returns for follow-up. States that she has been doing about the same overall. She is on pregabalin 200 mg Twice daily which helps sometimes. She also takes Flexeril as needed for muscle spasms. 2 months ago she had a sleep study which confirmed obstructive sleep apnea and now she is waiting for the CPAP machine. She does regular low-impact exercises which helped. Feels worse when she stops exercising. She has been complaining of bilateral knee pain. She takes ibuprofen 600 mg daily for her knee pain. [facility]LY [facility], [facility] Medical History Memory loss due to medical condition Hypertension High cholesterol C. difficile colitis Neuroforaminal stenosis of lumbar spine Hidradenitis suppurativa Degenerative joint disease of spine Bipolar disorder Depression Anxiety Type 2 diabetes mellitus Epilepsy Fibromyalgia, primary Migraine Surgical History Status post surgical removal of malignant neoplasm of skin Status post placement of VNS (vagus nerve stimulation) device History of eye surgery Hx of endoscopy History of laparoscopic appendectomy H/O wisdom tooth extraction Hx of tubal ligation Hx of tonsillectomy History of total hysterectomy with bilateral salpingo-oophorectomy (BSO) Hx of colonoscopy Hx laparoscopic cholecystectomy History of fundoplication Hx of section Family History Paternal Grandmother Rheumatoid arthritis Thyroid cancer Maternal Grandmother Arthritis Myocardial infarction Ovarian cyst Thyroid disease Cancer Paternal Uncle Colon cancer Mother Ovarian cyst Father Diabetes Depression Hypertension High cholesterol Skin cancer Maternal Grandfather FH: prostate cancer Paternal Grandfather Bipolar 1 disorder Social History Housing: Other (Trailer) Patient Tobacco Use Status: Former Tobacco user e-Cigarette/Vaping Use: Never Used service: No Current occupational status: disabled Cognitive needs: No Hearing needs: No Vision needs: No Review of Systems Const Reports fatigue and Reports weakness Musc Reports back pain, Reports myalgias, Reports joint swelling and Reports stiffness Neuro Details: Muscle spasm Reports weakness Psych Reports abnormal sleep pattern, Reports anxiety and Reports depression Endo Reports fatigue Physical Exam Vital Signs: Last Vital Signs Temp 96.8 F 11/18/23 14:35 Pulse 121 H 11/18/23 14:35 BP 118/72 11/18/23 14:35 Pulse Ox 95 11/18/23 14:35 Oxygen Delivery Method Room Air 11/18/23 14:35 BMI result Body Mass Index 53.7 Const General: cooperative Nutritional Appearance: obese morbidly obese Orientation/consciousness: patient oriented x3 Limitations: no limitations HEENT Head: Yes normocephalic and Yes atraumatic Resp Effort & Inspection: normal respiratory effort and able to speak in complete sentences Neuro General: patient oriented x3 Extrem Other: Normal nail fold capillaroscopy Numerous fibromyalgia tender points Bilateral lower back tenderness to palpation No active synovitis Normal nailfold capillaroscopy Psych Affect: Anxious affect present Results Reviewed Results Reviewed: Labs from 2009 BOBY 1-160 speckled RF negative ESR 11 Lyme screen negative Assessment & Plan Assessment & Plan (1) Fibromyalgia, primary: Code(s): M79.7 - Fibromyalgia Plan: this is a 38-year-old female with fibromyalgia who presents for follow-up. Patient follows up regularly with a psychiatrist and a psychotherapist. She was recently diagnosed with sleep apnea and is in the process of getting a CPAP machine. She exercises regularly. She is on pregabalin 200 mg Twice daily which is helpful but inconsistently. She also takes Flexeril as needed for muscle spasm. All are prescribed by PCP She is doing fairly well overall. Hopefully will her symptoms will improve once she is on CPAP regularly No need for follow-up with me. Follow-up with PCP. (2) Lumbar degenerative disc disease: Code(s): M51.36 - Other intervertebral disc degeneration, lumbar region Plan: Referred to PT (3) Bilateral primary osteoarthritis of knee: Code(s): M17.0 - Bilateral primary osteoarthritis of knee Plan: Referred to PT Patient takes 600 mg of ibuprofen daily. Advised patient to try to substitute the ibuprofen with Tylenol Arthritis and Voltaren gel. Use ibuprofen only as needed Plan I spent 27 minutes reviewing patient's chart, evaluating patient, placing orders, counseling patient and documenting in the chart Orders: Orders PT Evaluation and Treatment Today M17.0 - Bilateral primary osteoarthritis of knee, M47.9 - Spondylosis, unspecified, M51.36 - Other intervertebral disc degeneration, lumbar region Coding Level of Care Code Est Pt Level 4 (18055) Diagnoses Fibromyalgia, primary M79.7 Lumbar degenerative disc disease M51.36 Bilateral primary osteoarthritis of knee M17.0
== END 2023-11-18 14:53 | disposition home or self-care (01) ==
PROVIDERS: PCP Nurse Practitioner Family; Visit Provider Student in an Organized Health Care Education/Training Program
DX: M79.7 Fibromyalgia (principal); M51.36 Other intervertebral disc degeneration, lumbar region; M17.0 Bilateral primary osteoarthritis of knee
CPT/HCPCS: 99214

== ENCOUNTER → 2023-11-18 14:30 | Outpatient (BNVA) | payer OTHER, SELFPAY | PROVIDERS: PCP Nurse Practitioner Family; Visit Provider Student in an Organized Health Care Education/Training Program | DX: M79.7 Fibromyalgia (principal); M51.36 Other intervertebral disc degeneration, lumbar region; M17.0 Bilateral primary osteoarthritis of knee; Z79.899 Other long term (current) drug therapy | CPT/HCPCS: 99212 ==

== ENCOUNTER → 2023-12-12 17:19 | Outpatient (AMB) | payer OTHER, SELFPAY ==
[2023-12-12 17:20] VITALS: BP 116/76; PULSE 95; RESP 14; TEMP 36.2; O2SAT 98; BMI 54.4
--- NOTE | 2023-12-12 17:20 | MHC.PC.OV ---
Vital Signs 12/12/23 17:20 Height 5 ft 8 in Weight 357 lb 8 oz BMI 54.4 BP 116/76 Blood Pressure Location Rt brachial Position Sitting Respiration 14 Pulse 95 Pulse Source Pulse Oximeter Temp 97.1 F Temp Source Temporal Artery Scan Pulse Oximetry (%) 98 Oxygen Delivery Method Room Air Intake Visit Reasons: 1 Month DM /CPE Acidizer Required: No Accompanied by: Self / Same As Patient Allergies gabapentin [From NEURONTIN] Allergy (Unknown, Verified 12/12/23 17:33) ANAPHYLAXIS midazolam [From VERSED] Allergy (Unknown, Verified 12/12/23 17:33) ANAPHYLAXIS ketorolac [From Toradol] Adverse Reaction (Intermediate, Verified 12/12/23 17:33) Hives latex Adverse Reaction (Intermediate, Verified 12/12/23 17:33) Rash Sulfa (Sulfonamide Antibiotics) Adverse Reaction (Intermediate, Verified 12/12/23 17:33) Rash Medication List - Last Reconciled 12/12/23 by Preeti Souza CNP albuterol sulfate 90 mcg/actuation (Ventolin HFA) inhalation cholecalciferol (vitamin D3) 50 mcg PO DAILY 90 days clonazepam 0.5 mg PO DAILY PRN cyanocobalamin (vitamin B-12) 1,000 mcg IM Q4W 90 days cyclobenzaprine 10 mg PO TID PRN dicyclomine 20 mg PO TID escitalopram oxalate (Lexapro) 10 mg PO DAILY fenofibrate nanocrystallized mg PO hydroxyzine HCl 50 mg PO BID PRN ibuprofen 600 mg PO Q8H PRN insulin glargine (Lantus Solostar U-100 Insulin) 34 units subcut QPM lacosamide 150 mg PO BID lisinopril 40 mg PO DAILY 90 days loperamide 2 mg PO Q6H PRN lorazepam 1 mg PO DAILY PRN melatonin 6 mg PO BEDTIME PRN naratriptan 1 mg PO DAILY PRN omeprazole 40 mg PO DAILY 90 days ondansetron 4 mg PO Q8H 4 days pen needle, diabetic (BD Ultra-Fine Short Pen Needle) As directed pregabalin 200 mg (2 x 100 mg) PO BID 30 days promethazine 12.5 mg (10 mL) PO Q6H PRN risperidone 3 mg PO BEDTIME syringe with needle, safety As directed tirzepatide (Mounjaro) 2.5 mg (0.5 mL) subcut QWEEK 4 weeks Tobacco use date assessed: 12/12/23 Dental Screening Dental Screen Date: 12/12/23 Did you have a dental visit in the last 12 months?: Yes Did you have a dental problem in the last 6 months where you did not have access to dental care?: No Was dental information given to patient?: Patient has dentist HPI HPI Comments History of Present Illness Details 38 y/o female presents for an extended physical exam and diabetes follow up She admits to taking her medications as prescribed w/o adverse reactions Reports chronic low back and right knee pain She states that her health plan refused the mounjaro that was recently substituted for trulicity. She currently takes Lantus for her diabetes She took metformin in the past but stopped taking the medication due to diarrhea. However, she is willing to start taking Metformin again she her health plain is not covering the GLP-1 recently prescribed. She notes she had hysterectomy 3 years ago and no longer performs pap smear tests No family history of breast cancer [facility] Medical History Osteoarthritis Memory loss due to medical condition Hypertension High cholesterol C. difficile colitis Neuroforaminal stenosis of lumbar spine Hidradenitis suppurativa Degenerative joint disease of spine Bipolar disorder Depression Anxiety Type 2 diabetes mellitus Epilepsy Fibromyalgia, primary Migraine Surgical History Status post surgical removal of malignant neoplasm of skin Status post placement of VNS (vagus nerve stimulation) device History of eye surgery Hx of endoscopy History of laparoscopic appendectomy H/O wisdom tooth extraction Hx of tubal ligation Hx of tonsillectomy History of total hysterectomy with bilateral salpingo-oophorectomy (BSO) Hx of colonoscopy Hx laparoscopic cholecystectomy History of fundoplication Hx of section Family History (Updated 12/12/23 @ 17:26 by Gely Colindres MA) Paternal Grandmother Rheumatoid arthritis Thyroid cancer Maternal Grandmother Arthritis Myocardial infarction Ovarian cyst Thyroid disease Cancer Paternal Uncle Colon cancer Mother Ovarian cyst Father Diabetes Depression Hypertension High cholesterol Skin cancer Maternal Grandfather FH: prostate cancer Paternal Grandfather Bipolar 1 disorder Social History Housing: Other (Trailer) Patient Tobacco Use Status: Former Tobacco user e-Cigarette/Vaping Use: Never Used service: No Current occupational status: disabled Cognitive needs: No Hearing needs: No Vision needs: Yes Questionnaire PHQ-9 Over the last 2 weeks, how often have you been bothered by any of the following problems? 1. Little interest or pleasure in doing things: several days 2. Feeling down, depressed, or hopeless: not at all 3. Trouble falling or staying asleep, or sleeping too much: not at all 4. Feeling tired or having little energy: several days 5. Poor appetite or overeating: not at all 6. Feeling bad about yourself - or that you are a failure or have let yourself or your family down: not at all 7. Trouble concentrating on things, such as reading the newspaper or watching television: more than half the days 8. Moving or speaking so slowly that other people could have noticed. Or the opposite - being so fidgety or restless that you have been moving around a lot more than usual: not at all 9. Thoughts that you would be better off or of hurting yourself in some way: not at all Total score: 4 Depression Screening Interpretation: Negative Depression Screening Done: Yes 75417 - PHQ-9 Billing: Yes Source: Developed by Drs. Ronnie Pelayo, Isabella Yadav, Jose A Can and colleagues, with an educational darline from [employer]. Thrive Questionnaire Date Thrive assessed: 12/12/23 I am a: Patient What is your living situation today?: I have a steady place to live Within the past 12 months, did the food you bought not last and you didn't have the money to get more?: Never true Within the past 12 months, did you worry whether your food would run out before you got money to buy more?: Never true Do you have trouble paying for medicines?: No Do you have trouble getting transportation to medical appointments?: No Do you have trouble paying your heating and electricity bill?: No Do you have trouble taking care of your child, family member or friend?: No Do you have trouble with day-to-day activities such as bathing, preparing meals, shopping, managing finances, etc.?: No Are you currently unemployed and looking for a job?: No Are you interested in more education?: No Please select the resources that you would like help with: None Currently or been in a relationship where the following occur: no concerns reported THRIVE Score: 0 AUDIT C Alcohol Use Questionnaire (AUDIT-C) 1. How often do you have a drink containing alcohol?: Never 3. How often do you have six or more drinks on one occasion?: Never Total Score: 0 CONCEPCION-7 AMB Questionnaire CONCEPCION-7 Date CONCEPCION - 7 assessed: 12/12/23 Feeling nervous, anxious, or on edge: 3 = Nearly every day Not being able to stop or control worryin = More than half the days Worrying too much about different things: 3 = Nearly every day Trouble relaxin = Nearly every day Being so restless that it is hard to sit still: 0 = Not at all Becoming easily annoyed or irritable: 2 = More than half the days Feeling afraid as if something awful might happen: 1 = Several days Total CONCEPCION-7 score (0-4 normal; 5-9 mild; 10-14 moderate; 15-21 severe): 14 Source: Developed by Drs. Ronnie Pelayo, Isabella Yadav, Jose A Can and colleagues, with an educational darline from [employer]. CONCEPCION-7 Assessment Billing CONCEPCION-7 Assessment Tool: CONCEPCION-7 Assessment 10673 ACT Questionnaire In the past 4 weeks, how much of the time did your asthma keep you from getting as much done at work, school or at home?: None of the time During the past 4 weeks, how often have you had shortness of breath?: Not at all During the past 4 weeks, how often did your asthma symptoms wake you up at night or earlier than usual in the morning?: Not at all During the past 4 weeks, how often have you had to use your rescue inhaler or nebulizer medication?: Not at all How would you rate your asthma control during the past 4 weeks?: Well controlled ACT Interpretation: Positive Score: 24 Review of Systems Const Details: Denies chills, Denies fatigue, Denies fever(s), Denies headache(s) and Denies weakness HEENT Denies change in vision, Denies dizziness, Denies headache(s), Denies hearing loss, Denies nasal congestion, Denies sinus pain, Denies sinus pressure and Denies sore throat Card Denies chest pain, Denies lightheadedness, Denies dyspnea and Denies other (palpitations) Resp Denies cough, Denies dyspnea and Denies wheezing GI Denies abdominal pain, Denies melena, Denies hematochezia, Denies change in bowel habits, Denies dyspepsia and Denies nausea Denies hematuria and Denies dysuria Musc Reports as per HPI Skin/Breast Denies rash, Denies unusual bruising and Denies wounds Neuro Denies abnormal gait, Denies dizziness, Denies headache(s), Denies memory loss, Denies numbness, Denies Sensory deficit (Neuro), Denies tingling and Denies weakness Psych Denies anxiety, Denies depression and Denies memory loss Endo Denies cold intolerance, Denies fatigue, Denies heat intolerance, Denies polydipsia and Denies polyuria Harshad/Lymph Denies easy bleeding and Denies easy bruising Aller/Immun Denies wheezing Physical exam (Primary Care) Vital Signs: Last Vital Signs Temp 97.1 F 12/12/23 17:20 Pulse 95 12/12/23 17:20 Resp 14 12/12/23 17:20 BP 116/76 12/12/23 17:20 Pulse Ox 98 12/12/23 17:20 Oxygen Delivery Method Room Air 12/12/23 17:20 BMI result Body Mass Index 54.4 Tobacco/Smoking Status: Tobacco use Status Tobacco use date assessed 12/12/23 12/12/23 17:31 Patient Tobacco Use Status Former Tobacco user 12/12/23 17:23 e-Cigarette/Vaping Use Never Used 12/12/23 17:23 PHQ-9: PHQ-9 Score PHQ-9: Total score 4 12/15/23 09:53 Depression Screening Interpretation: Negative Thrive Assessment: Date of Thrive Assessment Date Thrive assessed 12/12/23 12/12/23 17:31 Currently or been in a relationship where the following occur: no concerns reported Const Other: General: no acute distress, well developed, alert and awake Nutritional Appearance: well nourished Orientation/consciousness: patient oriented x3 HENMT Head: Yes normocephalic and Yes atraumatic Ears: hearing grossly normal bilaterally and TM's normal bilaterally General nose exam: Normal external nose present and Normal nares present Mouth: Normal oral and palatal mucosa present and moist mucous membranes Teeth and gingiva: dentition normal Throat: Yes oropharynx normal Eyes Pupils: Equal, round and reactive pupils present and Pupil accommodation reflex normal EOM: EOMs intact bilaterally Neck Neck: Yes normal visual inspection, Yes no lymphadenopathy and Yes trachea midline Thyroid: Thyroid normal Carotids: no bruits Lymphatic: no lymphadenopathy noted Chest Chest palpation & inspection: normal inspection of the chest Resp Effort & Inspection: normal respiratory effort Auscultation: clear to auscultation bilaterally Cardio Rate: regular rate Rhythm: regular rhythm Heart sounds: S1 normal heart sound present, S2 normal heart sound present, no gallops, no murmurs and no rubs Bruits: no abdominal aortic bruits and no carotid bruits GI Palpation (GI): No Abdominal aortic bruit present, Soft to palpation, nontender, No hepatosplenomegaly present and No Rebound tenderness present Auscultation: normal bowel sounds General: Yes no CVA tenderness Back/Spine/Pelvis Back: no CVA tenderness Cervical Spine: cervical ROM normal and No Cervical spine tenderness Thoracic/Lumbar Spine: thoraco-lumbar ROM normal, No pain with thoraco-lumbar ROM, No thoracic spinal tenderness and lumbar spinal tenderness Skin General: warm and dry. Normal skin color. Normal skin turgor Lesions: no lesions Rashes: no rashes Trauma: no lacerations or abrasions Wounds: no wounds Nails: normal Neuro General: patient oriented x3, gait normal and CN's II-XI intact bilaterally Cranial nerves: Yes Equal, round and reactive pupils present Cognition (Neuro): normal cognition Gait exam (Neuro): Normal gait present Motor exam (neuro): 5/5 motor strength present throughout Sensory Exam: No Sensory deficit (Neuro) Deep tendon reflexes (DTR's): Right patellar reflex intensity grade: 2+ and Left patellar reflex intensity grade: 2+ Extrem General: Yes normal to inspection, No edema and No calf tenderness Psych Appearance: grossly normal Affect: normal affect Attitude: cooperative Thought process: Normal thought process present Results AMB Hemoglobin A1c AMB Hemoglobin A1c 8.4 % Last Edit by Gely Colindres MA on 12/12/23 17:57 Results Reviewed Results Reviewed: Laboratory Last Values Hgb A1c (Clinic) 8.4 % (4.0-6.0) H 12/12/23 17:53 Assessment and Plan Assessment & Plan (1) Normal physical examination, routine: Code(s): Z00.00 - Encounter for general adult medical examination without abnormal findings Plan: No significant physical restriction or limitation noted Continue current treatment regimen Follow up in 1 month for DM Return sooner with symptoms or concerns Verbalized understanding and agreed with the plan (2) Bilateral primary osteoarthritis of knee: Code(s): M17.0 - Bilateral primary osteoarthritis of knee Plan: Reports chronic low back and right knee pain Lumbar spine tender to palpation Ibuprofen as prescribed Warm/cold compresses encouraged Follow up with worsening and new symptoms Verbalized understanding and agreed with the treatment plan (3) Lumbar degenerative disc disease: Code(s): M51.36 - Other intervertebral disc degeneration, lumbar region Plan: As above Sas referred to [facility] neuro spine; awaiting CT scan before appointment can be made. MRI was denied by her health plan (4) Type 2 diabetes mellitus: Code(s): E11.9 - Type 2 diabetes mellitus without complications Qualifiers: Diabetes mellitus complication status: without complication Diabetes mellitus retirement insulin use: without retirement use Qualified Code(s): E11.9 - Type 2 diabetes mellitus without complications Plan: A1c is 8.4% today, above goal of less than 7.0%. Previous A1c is 8.8% Her health plan has declined recently prescribed trulicity and mounjaro She reports h/o diarrhea with taking Metformin but willing to try Metformin again Metformin 500mg ER BID ordered. Take as prescribed Advise to check blood glucose three times daily, record readings and bring to next appointment ADA diet and routine exercise encourage Follow up in 1 month or return sooner with symptoms or concerns Verbalized understanding and agreed with the plan Orders: Orders AMB Hemoglobin A1c 12/12/23 E11.9 - Type 2 diabetes mellitus without complications Medications: New metformin ER 500 mg PO BID 30 days 60 tabs 3RF Coding Level of Care Code Est Pt Level 4 (58419) Diagnoses Normal physical examination, routine Z00.00 Bilateral primary osteoarthritis of knee M17.0 Lumbar degenerative disc disease M51.36 Type 2 diabetes mellitus without complication, without long-term current use of insulin E11.9 Diabetes mellitus complication status: without complication Diabetes mellitus buyer assistant insulin use: without buyer assistant use Additional Codes CONCEPCION-7 Assessment Billing - CONCEPCION-7 Assessment Tool: CONCEPCION-7 Assessment [id number] ([id number])
== END ==
PROVIDERS: PCP Nurse Practitioner Family; Visit Provider Nurse Practitioner Family
DX: E11.9 Type 2 diabetes mellitus without complications (principal)
CPT/HCPCS: 83036; 99214; 99395

== ENCOUNTER 2024-01-05 16:47 | Outpatient (AMB) | payer OTHER, SELFPAY ==
[2024-01-05 17:02] VITALS: BP 126/80; PULSE 102; RESP 13; TEMP 36.4; O2SAT 99; BMI 53.6
--- NOTE | 2024-01-05 17:02 | MHC.PC.OV ---
Vital Signs 01/05/24 17:02 Height 5 ft 8 in Weight 352 lb 8 oz BMI 53.6 BP 126/80 Blood Pressure Location Rt brachial Position Sitting Respiration 13 Pulse 102 H Pulse Source Pulse Oximeter Temp 97.6 F Temp Source Temporal Artery Scan Pulse Oximetry (%) 99 Oxygen Delivery Method Room Air Intake Visit Reasons: Follow up diabetes Intake Note: Patient has not received her new diabetes meter. Information Services Manager Required: No Accompanied by: Self / Same As Patient Allergies gabapentin [From NEURONTIN] Allergy (Unknown, Verified 01/05/24 17:21) ANAPHYLAXIS midazolam [From VERSED] Allergy (Unknown, Verified 01/05/24 17:21) ANAPHYLAXIS ketorolac [From Toradol] Adverse Reaction (Intermediate, Verified 01/05/24 17:21) Hives latex Adverse Reaction (Intermediate, Verified 01/05/24 17:21) Rash Sulfa (Sulfonamide Antibiotics) Adverse Reaction (Intermediate, Verified 01/05/24 17:21) Rash Medication List - Last Reconciled 01/05/24 by Preeti Souza CNP albuterol sulfate 90 mcg/actuation (Ventolin HFA) inhalation blood sugar diagnostic ([employer] Verio test strips) As directed blood-glucose meter (ZadyTouch Verio Flex Meter) POC testing TID cholecalciferol (vitamin D3) 50 mcg PO DAILY 90 days clonazepam 0.5 mg PO DAILY PRN cyanocobalamin (vitamin B-12) 1,000 mcg IM Q4W 90 days cyclobenzaprine 10 mg PO TID PRN dicyclomine 20 mg PO TID escitalopram oxalate (Lexapro) 10 mg PO DAILY fenofibrate nanocrystallized mg PO hydroxyzine HCl 50 mg PO BID PRN ibuprofen 600 mg PO Q8H PRN insulin glargine (Lantus Solostar U-100 Insulin) 34 units subcut QPM lacosamide 150 mg PO BID lancets (ZadyTouch Delica Plus Lancet) As directed lisinopril 40 mg PO DAILY 90 days loperamide 2 mg PO Q6H PRN lorazepam 1 mg PO DAILY PRN melatonin 6 mg PO BEDTIME PRN metformin ER 500 mg PO BID 30 days naratriptan 1 mg PO DAILY PRN omeprazole 40 mg PO DAILY 90 days ondansetron 4 mg PO Q8H 4 days pen needle, diabetic (BD Ultra-Fine Short Pen Needle) As directed pregabalin 200 mg (2 x 100 mg) PO BID 30 days promethazine 12.5 mg (10 mL) PO Q6H PRN risperidone 3 mg PO BEDTIME syringe with needle, safety As directed tirzepatide (Mounjaro) 2.5 mg (0.5 mL) subcut QWEEK 4 weeks Tobacco use date assessed: 12/12/23 Dental Screening Dental Screen Date: 01/05/24 Did you have a dental visit in the last 12 months?: Yes Did you have a dental problem in the last 6 months where you did not have access to dental care?: No Was dental information given to patient?: Patient has dentist HPI HPI Comments History of Present Illness Details 38-year-old female presents for diabetes follow-up Her recent A1c last month was 8.4% She was started on metformin 500 mg twice daily because her health plan would not cover Mounjaro. She is also on Lantus 34 units daily at night She admits to taking her medications as prescribed without adverse reactions. She initially had GI upset with metformin tolerating well She was advised to check her blood glucose daily, record readings, and bring to next appointment. She notes that she has not received her new glucometer and therefore has not been able to monitor her blood glucose as instructed. She notes that her health plan did not approve the glucometer that was ordered She notes that she has not heard from [facility] weight management clinic She offers no complaints and denies acute symptoms at this time [facility] Medical History Osteoarthritis Memory loss due to medical condition Hypertension High cholesterol C. difficile colitis Neuroforaminal stenosis of lumbar spine Hidradenitis suppurativa Degenerative joint disease of spine Bipolar disorder Depression Anxiety Type 2 diabetes mellitus Epilepsy Fibromyalgia, primary Migraine Surgical History Status post surgical removal of malignant neoplasm of skin Status post placement of VNS (vagus nerve stimulation) device History of eye surgery Hx of endoscopy History of laparoscopic appendectomy H/O wisdom tooth extraction Hx of tubal ligation Hx of tonsillectomy History of total hysterectomy with bilateral salpingo-oophorectomy (BSO) Hx of colonoscopy Hx laparoscopic cholecystectomy History of fundoplication Hx of section Family History Paternal Grandmother Rheumatoid arthritis Thyroid cancer Maternal Grandmother Arthritis Myocardial infarction Ovarian cyst Thyroid disease Cancer Paternal Uncle Colon cancer Mother Ovarian cyst Father Diabetes Depression Hypertension High cholesterol Skin cancer Maternal Grandfather FH: prostate cancer Paternal Grandfather Bipolar 1 disorder Social History Housing: Other (Trailer) Patient Tobacco Use Status: Former Tobacco user e-Cigarette/Vaping Use: Never Used service: No Current occupational status: disabled Cognitive needs: No Hearing needs: No Vision needs: Yes Questionnaire Thrive Questionnaire Date Thrive assessed: 12/12/23 CONCEPCION-7 AMB Questionnaire CONCEPCION-7 Date CONCEPCION - 7 assessed: 12/12/23 Source: Developed by Drs. Ronnie Pelayo, Isabella Yadav, Jose A Can and colleagues, with an educational darline from [employer]. Review of Systems Const Details: Const Denies chills, Denies fatigue, Denies fever(s), Denies headache(s) and Denies weakness ENT Denies dizziness and Denies headache(s) Card Denies chest pain, Denies lightheadedness, Denies dyspnea and Denies other (Palpitations) Resp Denies cough, Denies dyspnea, Denies wheezing and Denies other ( shortness of breath) GI Denies abdominal pain, Denies melena, Denies hematochezia, Denies change in bowel habits, Denies dyspepsia and Denies nausea Denies hematuria and Denies dysuria Musc Denies abnormal gait, Denies myalgias, Denies arthralgias, Denies numbness and Denies tingling Skin/Breast Denies rash, Denies unusual bruising and Denies wounds Neuro Denies abnormal gait, Denies dizziness, Denies headache(s), Denies memory loss, Denies numbness, Denies Sensory deficit (Neuro), Denies tingling and Denies weakness Psych Denies anxiety, Denies depression, Denies memory loss Endo Denies cold intolerance, Denies fatigue, Denies heat intolerance, Denies polydipsia and Denies polyuria Aller/Immun Denies wheezing Physical exam (Primary Care) Vital Signs: Last Vital Signs Temp 97.6 F 01/05/24 17:02 Pulse 102 H 01/05/24 17:02 Resp 13 01/05/24 17:02 BP 126/80 01/05/24 17:02 Pulse Ox 99 01/05/24 17:02 Oxygen Delivery Method Room Air 01/05/24 17:02 BMI result Body Mass Index 53.6 Tobacco/Smoking Status: Tobacco use Status Tobacco use date assessed 12/12/23 01/05/24 17:06 Patient Tobacco Use Status Former Tobacco user 01/05/24 17:06 e-Cigarette/Vaping Use Never Used 01/05/24 17:06 Thrive Assessment: Date of Thrive Assessment Date Thrive assessed 12/12/23 01/05/24 17:06 Const Other: General: no acute distress and well developed Nutritional Appearance: well nourished Orientation/consciousness: patient oriented x3 HENMT Head: Yes normocephalic and Yes atraumatic Eyes General: appearance normal, both eyes and all related structures Pupils: Equal, round and reactive pupils present EOM: EOMs intact bilaterally Resp Effort & Inspection: normal respiratory effort Auscultation: clear to auscultation bilaterally Cardio Rate: regular rate Rhythm: regular rhythm Heart sounds: S1 normal heart sound present, S2 normal heart sound present, no gallops, no murmurs and no rubs GI Palpation (GI): No Abdominal aortic bruit present, Soft to palpation, nontender, No hepatosplenomegaly present and No Rebound tenderness present Auscultation: normal bowel sounds General: Yes no CVA tenderness Back/Spine/Pelvis Back: no CVA tenderness Cervical Spine: cervical ROM normal and No Cervical spine tenderness Thoracic/Lumbar Spine: thoraco-lumbar ROM normal, No pain with thoraco-lumbar ROM, No thoracic spinal tenderness and No lumbar spinal tenderness Extrem General: Yes normal to inspection, No edema and No calf tenderness Skin General: warm and dry. Normal skin color. Normal skin turgor Lesions: no lesions Rashes: no rashes Trauma: no lacerations or abrasions Wounds: no wounds Nails: normal Neuro General: patient oriented x3, gait normal and no focal neuro deficit Cranial nerves: Yes Equal, round and reactive pupils present Cognition (Neuro): normal cognition Gait exam (Neuro): Normal gait present Sensory Exam: No Sensory deficit (Neuro) Psych Appearance: grossly normal Affect: normal affect Attitude: cooperative Thought process: Normal thought process present Assessment and Plan Assessment & Plan (1) Type 2 diabetes mellitus: Code(s): E11.9 - Type 2 diabetes mellitus without complications Qualifiers: 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 Will order glucometer once verified Advised to check fasting and random glucose daily, record readings, and bring to next appointment Upon review, [facility] weight management clinic never contacted the patient. A copy of the referral was given to the patient to contact them directly for an appointment Follow-up in 1 month for diabetes and hypertension Return sooner with symptoms or concerns Verbalized understanding and agreed with treatment plan Medications: Discontinued tirzepatide (Mounjaro) Discontinued Reason: Doctor's Order 2.5 mg (0.5 mL) subcut QWEEK 4 weeks 2 mL 3RF Coding Level of Care Code Est Pt Level 4 (47738) Diagnoses Type 2 diabetes mellitus without complication, without long-term current use of insulin E11.9 Diabetes mellitus assisted insulin use: without assisted use Diabetes mellitus complication status: without complication
== END 2024-01-05 17:34 | disposition home or self-care (01) ==
PROVIDERS: PCP Nurse Practitioner Family; Visit Provider Nurse Practitioner Family
DX: E11.9 Type 2 diabetes mellitus without complications (principal)
CPT/HCPCS: 99214

== ENCOUNTER 2024-01-12 15:25 | Outpatient (AMB) | payer OTHER, SELFPAY ==
[2024-01-12 15:33] VITALS: BP 136/80; PULSE 113; RESP 13; TEMP 36.2; O2SAT 98; BMI 53.7
--- NOTE | 2024-01-12 15:33 | MHC.PC.OV ---
Vital Signs 01/12/24 15:33 Height 5 ft 8 in Weight 353 lb BMI 53.7 BP 136/80 Blood Pressure Location Rt brachial Position Sitting Respiration 13 Pulse 113 H Pulse Source Pulse Oximeter Temp 97.1 F Temp Source Temporal Artery Scan Pulse Oximetry (%) 98 Oxygen Delivery Method Room Air Intake Visit Reasons: Pre OP/[facility] surgery on 01/28/2024 Account Management Assistant Required: No Accompanied by: Self / Same As Patient Allergies gabapentin [From NEURONTIN] Allergy (Unknown, Verified 01/12/24 15:42) ANAPHYLAXIS midazolam [From VERSED] Allergy (Unknown, Verified 01/12/24 15:42) ANAPHYLAXIS ketorolac [From Toradol] Adverse Reaction (Intermediate, Verified 01/12/24 15:42) Hives latex Adverse Reaction (Intermediate, Verified 01/12/24 15:42) Rash Sulfa (Sulfonamide Antibiotics) Adverse Reaction (Intermediate, Verified 01/12/24 15:42) Rash Medication List - Last Reconciled 01/12/24 by Preeti Souza CNP albuterol sulfate 90 mcg/actuation (Ventolin HFA) inhalation blood sugar diagnostic ([employer] Verio test strips) As directed blood-glucose meter ([employer] Verio Flex Meter) POC testing TID cholecalciferol (vitamin D3) 50 mcg PO DAILY 90 days clonazepam 0.5 mg PO DAILY PRN cyanocobalamin (vitamin B-12) 1,000 mcg IM Q4W 90 days cyclobenzaprine 10 mg PO TID PRN dicyclomine 20 mg PO TID escitalopram oxalate (Lexapro) 10 mg PO DAILY fenofibrate nanocrystallized mg PO hydroxyzine HCl 50 mg PO BID PRN ibuprofen 600 mg PO Q8H PRN insulin glargine (Lantus Solostar U-100 Insulin) 34 units (0.34 mL) subcut QPM 30 days lacosamide 150 mg PO BID lancets (Melon #usemelonTouch Delica Plus Lancet) As directed lisinopril 40 mg PO DAILY 90 days loperamide 2 mg PO Q6H PRN lorazepam 1 mg PO DAILY PRN melatonin 6 mg PO BEDTIME PRN metformin ER 500 mg PO BID 30 days naratriptan 1 mg PO DAILY PRN omeprazole 40 mg PO DAILY 90 days ondansetron 4 mg PO Q8H 4 days pen needle, diabetic (BD Ultra-Fine Short Pen Needle) As directed pregabalin 200 mg (2 x 100 mg) PO BID 30 days promethazine 12.5 mg (10 mL) PO Q6H PRN risperidone 3 mg PO BEDTIME syringe with needle, safety As directed Tobacco use date assessed: 12/12/23 Dental Screening Dental Screen Date: 01/12/24 Did you have a dental visit in the last 12 months?: Yes Did you have a dental problem in the last 6 months where you did not have access to dental care?: No Was dental information given to patient?: Patient has dentist HPI HPI Comments History of Present Illness Details 38-year-old female presents for a preop visit for bilateral eye surgery scheduled at [facility] on 01/28/2024 to correct strabismus She offers no complaints and denies acute symptoms at this time [facility] Medical History Osteoarthritis Memory loss due to medical condition Hypertension High cholesterol C. difficile colitis Neuroforaminal stenosis of lumbar spine Hidradenitis suppurativa Degenerative joint disease of spine Bipolar disorder Depression Anxiety Type 2 diabetes mellitus Epilepsy Fibromyalgia, primary Migraine Surgical History Status post surgical removal of malignant neoplasm of skin Status post placement of VNS (vagus nerve stimulation) device History of eye surgery Hx of endoscopy History of laparoscopic appendectomy H/O wisdom tooth extraction Hx of tubal ligation Hx of tonsillectomy History of total hysterectomy with bilateral salpingo-oophorectomy (BSO) Hx of colonoscopy Hx laparoscopic cholecystectomy History of fundoplication Hx of section Family History Paternal Grandmother Rheumatoid arthritis Thyroid cancer Maternal Grandmother Arthritis Myocardial infarction Ovarian cyst Thyroid disease Cancer Paternal Uncle Colon cancer Mother Ovarian cyst Father Diabetes Depression Hypertension High cholesterol Skin cancer Maternal Grandfather FH: prostate cancer Paternal Grandfather Bipolar 1 disorder Social History Housing: Other (Trailer) Patient Tobacco Use Status: Former Tobacco user e-Cigarette/Vaping Use: Never Used service: No Current occupational status: disabled Cognitive needs: No Hearing needs: No Vision needs: Yes Questionnaire Thrive Questionnaire Date Thrive assessed: 12/12/23 CONCEPCION-7 AMB Questionnaire CONCEPCION-7 Date CONCEPCION - 7 assessed: 12/12/23 Source: Developed by Drs. Ronnie Pelayo, Isabella Yadav, Jose A Can and colleagues, with an educational darline from [employer]. Review of Systems Const Details: Const Denies chills, Denies fatigue, Denies fever(s), Denies headache(s) and Denies weakness ENT Denies dizziness and Denies headache(s) Card Denies chest pain, Denies lightheadedness, Denies dyspnea and Denies other (Palpitations) Resp Denies cough, Denies dyspnea, Denies wheezing and Denies other ( shortness of breath) GI Denies abdominal pain, Denies melena, Denies hematochezia, Denies change in bowel habits, Denies dyspepsia and Denies nausea Denies hematuria and Denies dysuria Musc Denies abnormal gait, Denies myalgias, Denies arthralgias, Denies numbness and Denies tingling Skin/Breast Denies rash, Denies unusual bruising and Denies wounds Neuro Denies abnormal gait, Denies dizziness, Denies headache(s), Denies memory loss, Denies numbness, Denies Sensory deficit (Neuro), Denies tingling and Denies weakness Psych Denies anxiety, Denies depression, Denies memory loss Endo Denies cold intolerance, Denies fatigue, Denies heat intolerance, Denies polydipsia and Denies polyuria Aller/Immun Denies wheezing Physical exam (Primary Care) Vital Signs: Last Vital Signs Temp 97.1 F 01/12/24 15:33 Pulse 113 H 01/12/24 15:33 Resp 13 01/12/24 15:33 BP 136/80 01/12/24 15:33 Pulse Ox 98 01/12/24 15:33 Oxygen Delivery Method Room Air 01/12/24 15:33 BMI result Body Mass Index 53.7 Tobacco/Smoking Status: Tobacco use Status Tobacco use date assessed 12/12/23 01/05/24 17:06 Patient Tobacco Use Status Former Tobacco user 01/05/24 17:06 e-Cigarette/Vaping Use Never Used 01/05/24 17:06 Thrive Assessment: Date of Thrive Assessment Date Thrive assessed 12/12/23 01/05/24 17:06 Const Other: General: no acute distress and well developed Nutritional Appearance: well nourished Orientation/consciousness: patient oriented x3 HENMT Head: Yes normocephalic and Yes atraumatic Eyes General: appearance normal, both eyes and all related structures Pupils: Equal, round and reactive pupils present EOM: EOMs intact bilaterally Resp Effort & Inspection: normal respiratory effort Auscultation: clear to auscultation bilaterally Cardio Rate: regular rate Rhythm: regular rhythm Heart sounds: S1 normal heart sound present, S2 normal heart sound present, no gallops, no murmurs and no rubs GI Palpation (GI): No Abdominal aortic bruit present, Soft to palpation, nontender, No hepatosplenomegaly present and No Rebound tenderness present Auscultation: normal bowel sounds General: Yes no CVA tenderness Back/Spine/Pelvis Back: no CVA tenderness Cervical Spine: cervical ROM normal and No Cervical spine tenderness Thoracic/Lumbar Spine: thoraco-lumbar ROM normal, No pain with thoraco-lumbar ROM, No thoracic spinal tenderness and No lumbar spinal tenderness Extrem General: Yes normal to inspection, No edema and No calf tenderness Skin General: warm and dry. Normal skin color. Normal skin turgor Neuro General: patient oriented x3, gait normal and no focal neuro deficit Cranial nerves: Yes Equal, round and reactive pupils present Cognition (Neuro): normal cognition Gait exam (Neuro): Normal gait present Sensory Exam: No Sensory deficit (Neuro) Psych Appearance: grossly normal Affect: normal affect Attitude: cooperative Thought process: Normal thought process present Assessment and Plan Assessment & Plan (1) Visit for pre-operative examination: Code(s): Z01.818 - Encounter for other preprocedural examination Plan: Patient has surgery to correct strabismus of both eyes next month Vital signs stable Heart regular rate and rhythm Physical exam is benign. No focal neuro deficits No apparent medical contraindications for eye surgery Advised to follow-up with PCP as planned Verbalized understanding and agreed with the plan (2) Strabismus: Code(s): H50.9 - Unspecified strabismus Plan: As above Coding Level of Care Code Est Pt Level 3 (12501) Diagnoses Visit for pre-operative examination Z01.818 Strabismus H50.9
== END 2024-01-12 15:51 | disposition home or self-care (01) ==
PROVIDERS: PCP Nurse Practitioner Family; Visit Provider Nurse Practitioner Family
DX: H50.9 Unspecified strabismus (principal); Z01.818 Encounter for other preprocedural examination
CPT/HCPCS: 99213

== ENCOUNTER 2024-01-28 09:04 | Day surgery (SDC) | payer OTHER, SELFPAY ==
[2024-01-23 08:52] VITALS: BMI 53.7
--- NOTE | 2024-01-27 09:12 | P.CONAN_ITS ---
Documented by User: Karolyn Handley NP 01/27/24 09:17 HPI - Anesthesia Eval Consult details Narrative: 38yo F for bilateral/lateral Eye Muscle Recession/Resection, right superior rectus recession Medically cleared (Trulicity on external med rec, but patient states she has not taken for 1.5 months) [facility] Active Problems Active Problems: All Active Problems (Updated 01/12/24 @ 15:56 by Preeti Souza CNP) Strabismus (Acute) Visit for pre-operative examination (Acute) Normal physical examination, routine (Acute) Lumbar degenerative disc disease (Acute) Bilateral primary osteoarthritis of knee (Acute) Dyslipidemia (Acute) Morbid obesity with BMI of 50.0-59.9, adult (Acute) Migraine (Acute) Vitamin D deficiency (Acute) IBS (irritable bowel syndrome) (Acute) Impacted cerumen of both ears (Acute) Bipolar disorder (Acute) Depression (Acute) Anxiety (Acute) Epilepsy (Acute) High cholesterol (Acute) Type 2 diabetes mellitus (Acute) Hypertension (Acute) Pernicious anemia (Acute) Laboratory tests ordered as part of a complete physical exam (CPE) (Acute) Otitis media, right (Acute) Degenerative joint disease of spine (Acute) Fibromyalgia, primary (Acute) Past Medical History Medical History Sleep apnea Osteoarthritis Memory loss due to medical condition Hypertension High cholesterol C. difficile colitis Neuroforaminal stenosis of lumbar spine Hidradenitis suppurativa Degenerative joint disease of spine Bipolar disorder Depression Anxiety Type 2 diabetes mellitus Epilepsy Fibromyalgia, primary Migraine Family History Family History Paternal Grandmother Rheumatoid arthritis Thyroid cancer Maternal Grandmother Arthritis Myocardial infarction Ovarian cyst Thyroid disease Cancer Paternal Uncle Colon cancer Mother Ovarian cyst Father Diabetes Depression Hypertension High cholesterol Skin cancer Maternal Grandfather FH: prostate cancer Paternal Grandfather Bipolar 1 disorder Surgical History Surgical History Status post surgical removal of malignant neoplasm of skin Status post placement of VNS (vagus nerve stimulation) device History of eye surgery Hx of endoscopy History of laparoscopic appendectomy H/O wisdom tooth extraction Hx of tubal ligation Hx of tonsillectomy History of total hysterectomy with bilateral salpingo-oophorectomy (BSO) Hx of colonoscopy Hx laparoscopic cholecystectomy History of fundoplication Hx of section Social History Social History Housing: Other (Trailer) Patient Tobacco Use Status: Former Tobacco user Quit Date: 2 yrs ago e-Cigarette/Vaping Use: Never Used Use of substances other than those prescribed or required for medical reasons: No Are you DNR?: No Advance Directives: No Advance Directives Information Provided: Yes service: No Current occupational status: disabled Cognitive needs: No Hearing needs: No Vision needs: Yes Meds Allergies Allergy/AdvReac Type Severity Reaction Status Date / Time gabapentin [From NEURONTIN] Allergy Severe ANAPHYLAXIS Verified 01/28/24 10:27 midazolam [From VERSED] Allergy Severe ANAPHYLAXIS Verified 01/28/24 10:27 ketorolac [From Toradol] AdvReac Intermediate Hives Verified 01/28/24 10:27 latex AdvReac Intermediate Rash Verified 01/28/24 10:27 Sulfa (Sulfonamide AdvReac Intermediate Rash Verified 01/28/24 10:27 Antibiotics) Home Medications Medication Instructions Recorded Confirmed Last Taken Type dicyclomine 20 mg tablet 20 mg PO TID 08/23/22 01/23/24 Unknown History escitalopram oxalate 10 mg tablet 10 mg PO DAILY 08/23/22 01/23/24 Unknown History (Lexapro) lacosamide 150 mg tablet 150 mg PO BID 08/23/22 01/23/24 01/28/24 06:00 History loperamide 2 mg tablet 2 mg PO Q6H PRN loose stools 08/23/22 01/23/24 Unknown History clonazepam 0.5 mg tablet 0.5 mg PO DAILY PRN Anxiety 09/13/22 01/23/24 01/28/24 06:00 History albuterol sulfate 90 mcg/actuation 1 inh inhalation Q4H PRN Shortness 09/11/23 01/23/24 Unknown History aerosol inhaler (Ventolin HFA) Of Breath Or Wheezing fenofibrate nanocrystallized 145 45 mg PO DAILY 09/11/23 01/23/24 Unknown History mg tablet lorazepam 1 mg tablet 1 mg PO DAILY PRN Anxiety 09/11/23 01/23/24 Unknown History risperidone 3 mg tablet 3 mg PO BEDTIME 09/11/23 01/23/24 Unknown History hydroxyzine HCl 50 mg tablet 50 mg PO BID PRN Anxiety 10/31/23 01/23/24 Unknown History rizatriptan 10 mg tablet mg PO 01/28/24 01/28/24 Unknown History Exam Height,Weight and Vital Signs: Height 5 ft 8 in Weight 160.118 kg Pertinent Lab Results Pertinent Lab Results: Laboratory Tests 10/22/23 08:55 WBC 9.0 Hgb 12.5 Hct 38.5 Plt Count 332 D Sodium 138 Potassium 4.2 Chloride 103 Carbon Dioxide 25 BUN 18 H Creatinine 0.76 Assessment and Plan Assessment Anesthesia Assessment: Chart Reviewed Documented by User: Sandra Shen MD 01/28/24 12:11 PMFSH Past Medical History Medical History Sleep apnea Osteoarthritis Memory loss due to medical condition Hypertension High cholesterol C. difficile colitis Neuroforaminal stenosis of lumbar spine Hidradenitis suppurativa Degenerative joint disease of spine Bipolar disorder Depression Anxiety Type 2 diabetes mellitus Epilepsy Fibromyalgia, primary Migraine Family History Family History Paternal Grandmother Rheumatoid arthritis Thyroid cancer Maternal Grandmother Arthritis Myocardial infarction Ovarian cyst Thyroid disease Cancer Paternal Uncle Colon cancer Mother Ovarian cyst Father Diabetes Depression Hypertension High cholesterol Skin cancer Maternal Grandfather FH: prostate cancer Paternal Grandfather Bipolar 1 disorder Surgical History Surgical History Status post surgical removal of malignant neoplasm of skin Status post placement of VNS (vagus nerve stimulation) device History of eye surgery Hx of endoscopy History of laparoscopic appendectomy H/O wisdom tooth extraction Hx of tubal ligation Hx of tonsillectomy History of total hysterectomy with bilateral salpingo-oophorectomy (BSO) Hx of colonoscopy Hx laparoscopic cholecystectomy History of fundoplication Hx of section History of Problems with Anesthesia: No Social History Social History Housing: Other (Trailer) Patient Tobacco Use Status: Former Tobacco user Quit Date: 2 yrs ago e-Cigarette/Vaping Use: Never Used Use of substances other than those prescribed or required for medical reasons: No Are you DNR?: No Advance Directives: No Advance Directives Information Provided: Yes service: No Current occupational status: disabled Cognitive needs: No Hearing needs: No Vision needs: Yes Meds Allergies Allergy/AdvReac Type Severity Reaction Status Date / Time gabapentin [From NEURONTIN] Allergy Severe ANAPHYLAXIS Verified 01/28/24 10:27 midazolam [From VERSED] Allergy Severe ANAPHYLAXIS Verified 01/28/24 10:27 ketorolac [From Toradol] AdvReac Intermediate Hives Verified 01/28/24 10:27 latex AdvReac Intermediate Rash Verified 01/28/24 10:27 Sulfa (Sulfonamide AdvReac Intermediate Rash Verified 01/28/24 10:27 Antibiotics) Home Medications Medication Instructions Recorded Confirmed Last Taken Type dicyclomine 20 mg tablet 20 mg PO TID 08/23/22 01/23/24 Unknown History escitalopram oxalate 10 mg tablet 10 mg PO DAILY 08/23/22 01/23/24 Unknown History (Lexapro) lacosamide 150 mg tablet 150 mg PO BID 08/23/22 01/23/24 01/28/24 06:00 History loperamide 2 mg tablet 2 mg PO Q6H PRN loose stools 08/23/22 01/23/24 Unknown History clonazepam 0.5 mg tablet 0.5 mg PO DAILY PRN Anxiety 09/13/22 01/23/24 01/28/24 06:00 History albuterol sulfate 90 mcg/actuation 1 inh inhalation Q4H PRN Shortness 09/11/23 01/23/24 Unknown History aerosol inhaler (Ventolin HFA) Of Breath Or Wheezing fenofibrate nanocrystallized 145 45 mg PO DAILY 09/11/23 01/23/24 Unknown History mg tablet lorazepam 1 mg tablet 1 mg PO DAILY PRN Anxiety 09/11/23 01/23/24 Unknown History risperidone 3 mg tablet 3 mg PO BEDTIME 09/11/23 01/23/24 Unknown History hydroxyzine HCl 50 mg tablet 50 mg PO BID PRN Anxiety 10/31/23 01/23/24 Unknown History rizatriptan 10 mg tablet mg PO 01/28/24 01/28/24 Unknown History Exam Airway Mallampati Class: III TM Dist: >3cm Neck ROM: Full Loose/Missing/Broken Teeth: No Heart: RRR Lungs: CTA Assessment and Plan Assessment Anesthesia Assessment: Anesthesia Plan Discussed Final Anesthetic Review History of Problems with Anesthesia: No NPO: Yes ASA Class: III Final Preanesthetic Review: Meds/Allgs Chart Reviewed, Consent Obtained/Reviewed and Anes Risks/Benef Reviewed Patient Risk: Intermediate Procedure Risk: Low Anesthetic Plan Anesthetic Plan: GA Disposition: Standard PACU
[2024-01-28] VITALS (8 sets, daily range): BP systolic 112–147; BP diastolic 54–85; PULSE 94–122; RESP 16–21; TEMP 36.6–36.9; O2SAT 93–97; BMI 54.0
[2024-01-28] MEDS: Lactated Ringers 1,000 ML 100 ML IVCONT (10:23)
[2024-01-28 10:29] LABS: Glucose, Whole Blood 186 mg/dL (60-115)
--- NOTE | 2024-01-28 13:42 | P.OPHTHAL_ITS ---
Ophthalmology Operative Note Date of Service: 01/28/24 Narrative: Diagnosis exotropia. Procedure bilateral medial rectus resection of 6 mm and recession of right superior rectus muscle [address] Franco. Anesthesia general. Complications none. The patient was brought to the operative room placed under general anesthesia. The eyes were prepped and draped in the usual sterile ophthalmic fashion. A lid speculum was placed in the right eye and incisions made at bare sclera around the medial rectus muscle. The muscle was hooked and dissected free of its overlying fascial attachments. It was grasped at its insertion with a muscle clamp and a 6 mm resection was marked off with cautery. The resection point was secured with a double-armed Vicryl suture and the distal muscle resected. The resection point was drawn forward to the original insertion using the Vicryl suture. The incision was then extended superiorly and the superior rectus muscle was hooked and secured with a double- armed Vicryl suture. It was disinserted from the globe and reattached to a position 2 mm behind the original insertion. Conjunctiva was closed with interrupted Vicryl sutures. An identical 6 mm resection was then carried out on the left medial rectus muscle only. The patient was then awoken from general anesthesia and discharged to postoperative recovery in good condition.
[2024-01-28] MEDS: oxyCODONE HCl Immed Release 5 MG TABLET PO (13:59)
[2024-01-28] MEDS: ondansetron HCL 4 MG/2 ML VIAL IVPUSH (14:16)
[2024-01-28] MEDS: Ibuprofen 200 MG TABLET 600 MG PO (14:24)
== END 2024-01-28 15:18 | disposition home or self-care (01) ==
PROVIDERS: PCP Nurse Practitioner Family; Visit Provider Ophthalmology
PROC: (CPT 67311; principal; 2024-01-28 11:50)
DX: H50.112 Monocular exotropia, left eye (principal); H50.111 Monocular exotropia, right eye; G40.909 Epilepsy, unspecified, not intractable, without status epilepticus; R41.3 Other amnesia; I10 Essential (primary) hypertension; E78.00 Pure hypercholesterolemia, unspecified; M79.7 Fibromyalgia; M19.90 Unspecified osteoarthritis, unspecified site; M47.9 Spondylosis, unspecified; F41.1 Generalized anxiety disorder; E11.9 Type 2 diabetes mellitus without complications; G43.909 Migraine, unspecified, not intractable, without status migrainosus; F32.A Depression, unspecified; F41.9 Anxiety disorder, unspecified; Z79.1 Long term (current) use of non-steroidal anti-inflammatories (NSAID); Z79.4 Long term (current) use of insulin; Z79.84 Long term (current) use of oral hypoglycemic drugs; Z79.899 Other long term (current) drug therapy; Z88.2 Allergy status to sulfonamides; Z88.8 Allergy status to other drugs, medicaments and biological substances; Z91.040 Latex allergy status; Z90.49 Acquired absence of other specified parts of digestive tract; Z98.890 Other specified postprocedural states; Z87.891 Personal history of nicotine dependence
CPT/HCPCS: 67311; 67314; 82947; J0131; J1100; J1596; J1885; J2250; J2371; J2405; J2704; J3010

== ENCOUNTER 2024-03-19 16:47 | Outpatient (AMB) | payer OTHER, SELFPAY ==
[2024-03-19 16:55] VITALS: BP 146/80; PULSE 99; RESP 14; TEMP 36.4; O2SAT 97; BMI 54.0
--- NOTE | 2024-03-19 16:55 | A.OFFPC_ITS ---
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 Maker Required: No Accompanied by: Self / Same As Patient Allergies gabapentin [From NEURONTIN] Allergy (Severe, Verified 03/19/24 17:23) ANAPHYLAXIS midazolam [From VERSED] Allergy (Severe, Verified 03/19/24 17:23) ANAPHYLAXIS ketorolac [From Toradol] Adverse Reaction (Intermediate, Verified 03/19/24 17:23) Hives latex Adverse Reaction (Intermediate, Verified 03/19/24 17:23) Rash Sulfa (Sulfonamide Antibiotics) Adverse Reaction (Intermediate, Verified 03/19/24 17:23) Rash Medication List - Last Reconciled 03/19/24 by Preeti Souza CNP albuterol sulfate 90 mcg/actuation (Ventolin HFA) 1 inh inhalation Q4H PRN blood sugar diagnostic (FreeStyle Lite Strips) POS testing TID blood-glucose meter (FreeStyle Lite Meter kit) As directed cholecalciferol (vitamin D3) 50 mcg PO DAILY 90 days clonazepam 0.5 mg PO DAILY PRN cyanocobalamin (vitamin B-12) 1,000 mcg IM Q4W 90 days cyclobenzaprine 10 mg PO TID PRN dicyclomine 20 mg PO TID escitalopram oxalate (Lexapro) 10 mg PO DAILY fenofibrate nanocrystallized 145 mg PO DAILY 30 days hydroxyzine HCl 50 mg PO BID PRN ibuprofen 600 mg PO Q8H PRN insulin glargine (Lantus Solostar U-100 Insulin) 34 units (0.34 mL) subcut QPM 30 days lacosamide 150 mg PO BID lancets (FreeStyle Lancets) POC testing TID lisinopril 40 mg PO DAILY 90 days loperamide 2 mg PO Q6H PRN lorazepam 1 mg PO DAILY PRN metformin ER 1,000 mg (2 x 500 mg) PO BID 30 days omeprazole 40 mg PO DAILY 90 days ondansetron 4 mg PO Q8H 4 days pen needle, diabetic (BD Ultra-Fine Short Pen Needle) As directed pregabalin 200 mg (2 x 100 mg) PO BID 30 days promethazine 12.5 mg (10 mL) PO Q6H PRN risperidone 3 mg PO BEDTIME rizatriptan mg PO syringe with needle, safety As directed Tobacco use date assessed: 12/12/23 Dental Screening Dental Screen Date: 03/19/24 Did you have a dental visit in the last 12 months?: Yes Did you have a dental problem in the last 6 months where you did not have access to dental care?: No Was dental information given to patient?: Patient has dentist HPI HPI Comments History of Present Illness Details 38-year-old female presents for diabetes follow-up She is currently on metformin 1000 mg twice daily and Lantus 34 units every night. She was on Mounjaro until her health plan recently denied coverage She reports significant daily diarrhea after taking each dose of metformin Denies hypoglycemic episodes She also reports a small painful abscess in her right armpit which has been present for the 3-4 days and has been draining pink to clear liquid. No fever, chills, body aches, fatigue, weakness PFSH Medical History Sleep apnea Osteoarthritis Memory loss due to medical condition Hypertension High cholesterol C. difficile colitis Neuroforaminal stenosis of lumbar spine Hidradenitis suppurativa Degenerative joint disease of spine Bipolar disorder Depression Anxiety Type 2 diabetes mellitus Epilepsy Fibromyalgia, primary Migraine Surgical History Status post surgical removal of malignant neoplasm of skin Status post placement of VNS (vagus nerve stimulation) device History of eye surgery Hx of endoscopy History of laparoscopic appendectomy H/O wisdom tooth extraction Hx of tubal ligation Hx of tonsillectomy History of total hysterectomy with bilateral salpingo-oophorectomy (BSO) Hx of colonoscopy Hx laparoscopic cholecystectomy History of fundoplication Hx of section Family History Paternal Grandmother Rheumatoid arthritis Thyroid cancer Maternal Grandmother Arthritis Myocardial infarction Ovarian cyst Thyroid disease Cancer Paternal Uncle Colon cancer Mother Ovarian cyst Father Diabetes Depression Hypertension High cholesterol Skin cancer Maternal Grandfather FH: prostate cancer Paternal Grandfather Bipolar 1 disorder Social History (Updated 03/19/24 @ 17:09 by PHIL Victor) Household Members: Family Both parents involved: No Caregiver staying overnight: No Housing: Other (Trailer) Are you a primary primary care pediatrician to a significant other at home: No Do you presently have visiting nurse or other home services: No 75 years or older and lives alone: No Alcohol intake: never Patient Tobacco Use Status: Former Tobacco user Quit Date: 2 yrs ago e-Cigarette/Vaping Use: Never Used Use of substances other than those prescribed or required for medical reasons: No Currently Displaying Signs/Symptoms of Drug Intoxication Withdrawal: No Have you been hit, kicked, punched, or otherwise hurt by someone within the past year? If so, by whom?: No Do you feel safe in your current relationship?: No Is there a partner from a previous relationship who is making you feel unsafe now?: No Are you made to feel afraid or neglected: No service: No Current occupational status: disabled Cognitive needs: No Hearing needs: No Vision needs: Yes Questionnaire Thrive Questionnaire Date Thrive assessed: 12/12/23 CONCEPCION-7 AMB Questionnaire CONCEPCION-7 Date CONCEPCION - 7 assessed: 12/12/23 Source: Developed by Drs. Ronnie Pelayo, Isabella Yadav, Jose A Can and colleagues, with an educational darline from [employer]. Review of Systems Const Details: Const Denies chills, Denies fatigue, Denies fever(s), Denies headache(s) and Denies weakness ENT Denies dizziness and Denies headache(s) Card Denies chest pain, Denies lightheadedness, Denies dyspnea and Denies other (Palpitations) Resp Denies cough, Denies dyspnea, Denies wheezing and Denies other ( shortness of breath) GI Denies abdominal pain, Denies melena, Denies hematochezia, Denies change in bowel habits, Denies dyspepsia and Denies nausea Denies hematuria and Denies dysuria Musc Denies abnormal gait, Denies myalgias, Denies arthralgias, Denies numbness and Denies tingling Skin/Breast Reports abscess Denies rash, Denies unusual bruising and Denies wounds Neuro Denies abnormal gait, Denies dizziness, Denies headache(s), Denies memory loss, Denies numbness, Denies Sensory deficit (Neuro), Denies tingling and Denies weakness Psych Denies anxiety, Denies depression, Denies memory loss Endo Denies cold intolerance, Denies fatigue, Denies heat intolerance, Denies abel ydipsia and Denies polyuria Aller/Immun Denies wheezing Physical exam (Primary Care) Vital Signs: Last Vital Signs Temp 97.5 F 03/19/24 16:55 Pulse 99 03/19/24 16:55 Resp 14 03/19/24 16:55 BP 136/70 03/19/24 17:29 Pulse Ox 97 03/19/24 16:55 Oxygen Delivery Method Room Air 03/19/24 16:55 BMI result Body Mass Index 54.0 Tobacco/Smoking Status: Tobacco use Status Tobacco use date assessed 12/12/23 03/19/24 17:05 Patient Tobacco Use Status Former Tobacco user 03/19/24 17:09 e-Cigarette/Vaping Use Never Used 03/19/24 17:09 Thrive Assessment: Date of Thrive Assessment Date Thrive assessed 12/12/23 03/19/24 17:05 Const Other: General: no acute distress and well developed Nutritional Appearance: well nourished Orientation/consciousness: patient oriented x3 HENMT Head: Yes normocephalic and Yes atraumatic Eyes General: appearance normal, both eyes and all related structures Pupils: Equal, round and reactive pupils present EOM: EOMs intact bilaterally Resp Effort & Inspection: normal respiratory effort Auscultation: clear to auscultation bilaterally Cardio Rate: regular rate Rhythm: regular rhythm Heart sounds: S1 normal heart sound present, S2 normal heart sound present, no gallops, no murmurs and no rubs GI Palpation (GI): No Abdominal aortic bruit present, Soft to palpation, nontender, No hepatosplenomegaly present and No Rebound tenderness present Auscultation: normal bowel sounds General: Yes no CVA tenderness Back/Spine/Pelvis Back: no CVA tenderness Cervical Spine: cervical ROM normal and No Cervical spine tenderness Thoracic/Lumbar Spine: thoraco-lumbar ROM normal, No pain with thoraco-lumbar ROM, No thoracic spinal tenderness and No lumbar spinal tenderness Extrem General: Yes normal to inspection, No edema and No calf tenderness Skin General: warm and dry. Normal skin color. Normal skin turgor Lesion: Small, slightly red, tender abscess to the right axilla. No active drainage Neuro General: patient oriented x3, gait normal and no focal neuro deficit Cranial nerves: Yes Equal, round and reactive pupils present Cognition (Neuro): normal cognition Gait exam (Neuro): Normal gait present Sensory Exam: No Sensory deficit (Neuro) Psych Appearance: grossly normal Affect: normal affect Attitude: cooperative Thought process: Normal thought process present Results AMB Hemoglobin A1c AMB Hemoglobin A1c 8.9 % Last Edit by PHIL Victor on 03/19/24 17:1 2 Results Reviewed Results Reviewed: Laboratory Last Values Hgb A1c (Clinic) 8.9 % (4.0-6.0) H 03/19/24 17:11 Assessment and Plan Assessment & Plan (1) Type 2 diabetes mellitus: Code(s): E11.9 - Type 2 diabetes mellitus without complications Qualifiers: Diabetes mellitus complication status: without complication Diabetes mellitus labor relations specialist insulin use: without labor relations specialist use Qualified Code(s): E11.9 - Type 2 diabetes mellitus without complications Plan: A1c today is 8.9%, above goal of less than 7.0%. Previous A1c was 8.4% Will decrease metformin ER to 1000 mg daily due to diarrhea Glipizide 5 mg daily ordered. Advised to take as prescribed. Restricted on risks, benefits, and potential adverse reactions of the medication Continue to take Lantus 34 units every night Healthy diet and routine exercise encouraged Will recheck A1c in 3 months Encouraged to contact her health plan to determine coverage for Trulicity or Ozempic and inform PCP Return sooner with symptoms or concerns Verbalized understanding and agreed with treatment (2) Hypertension: Code(s): I10 - Essential (primary) hypertension Qualifiers: Hypertension type: primary hypertension Qualified Code(s): I10 - Essential (primary) hypertension Plan: Resting blood pressure is 136/70, above goal of less than 130/80 Continue to take lisinopril 40 mg daily Denies high sodium diet. Low-sodium diet encouraged Follow-up in 1 month or return sooner with worsening or new symptoms Verbalized understanding and agreed with treatment plan (3) Abscess: Code(s): L02.91 - Cutaneous abscess, unspecified Plan: Reports small, painful abscess with pink to clear drainage in her right armpit. No constitutional symptoms Small, slightly red, tender abscess to the right axilla. No active drainage Cephalexin 500 mg twice daily x7 days ordered. Advised to take as prescribed. Instructed on the benefits, risks, and potential adverse reactions of the medication Warm compresses encouraged Follow-up with worsening or new symptoms Verbalized understanding and agreed with treatment plan Orders: Orders AMB Hemoglobin A1c Today E11.9 - Type 2 diabetes mellitus without complications Medications: New glipizide 5 mg PO DAILY 30 days 30 tabs 3RF cephalexin 500 mg PO BID 7 days 14 tabs 0RF Changed From metformin ER 1,000 mg (2 x 500 mg) PO BID 30 days 120 tabs 3RF To metformin ER 1,000 mg (2 x 500 mg) PO ONCE 30 days 60 tabs 3RF Coding Level of Care Code Est Pt Level 4 (65133) Complex EM visit Add On G2211 Diagnoses Type 2 diabetes mellitus without complication, without long-term current use of insulin E11.9 Diabetes mellitus complication status: without complication Diabetes mellitus labor relations specialist insulin use: without halfway use Primary hypertension I10 Hypertension type: primary hypertension Abscess L02.91
[2024-03-19 17:29] VITALS: BP 136/70
== END 2024-03-19 18:13 | disposition home or self-care (01) ==
PROVIDERS: PCP Nurse Practitioner Family; Visit Provider Nurse Practitioner Family
DX: E11.9 Type 2 diabetes mellitus without complications (principal); I10 Essential (primary) hypertension; L02.91 Cutaneous abscess, unspecified
CPT/HCPCS: 83036; 99214; G2211

== ENCOUNTER 2024-04-23 16:31 | Outpatient (AMB) | payer OTHER, SELFPAY ==
--- NOTE | 2024-04-23 16:34 | MHC.PC.OV ---
Vital Signs 04/23/24 16:35 Height 5 ft 8 in Weight 251 lb 3 oz BMI 38.2 BP 126/74 Blood Pressure Location Rt brachial Position Sitting Respiration 14 Pulse 99 Pulse Source Pulse Oximeter Temp 97.6 F Temp Source Temporal Artery Scan Pulse Oximetry (%) 98 Oxygen Delivery Method Room Air Intake Visit Reasons: Requesting Ozempic Intake Note: Patient would like 3 legg cane ordered. Accompanied by: Self / Same As Patient Allergies gabapentin [From NEURONTIN] Allergy (Severe, Verified 04/23/24 17:21) ANAPHYLAXIS midazolam [From VERSED] Allergy (Severe, Verified 04/23/24 17:21) ANAPHYLAXIS ketorolac [From Toradol] Adverse Reaction (Intermediate, Verified 04/23/24 17:21) Hives latex Adverse Reaction (Intermediate, Verified 04/23/24 17:21) Rash Sulfa (Sulfonamide Antibiotics) Adverse Reaction (Intermediate, Verified 04/23/24 17:21) Rash Medication List - Last Reconciled 04/23/24 by Preeti Souza CNP albuterol sulfate 90 mcg/actuation (Ventolin HFA) 1 inh inhalation Q4H PRN blood sugar diagnostic (FreeStyle Lite Strips) POS testing TID blood-glucose meter (FreeStyle Lite Meter kit) As directed cephalexin 500 mg PO BID 7 days cholecalciferol (vitamin D3) 50 mcg PO DAILY 90 days clonazepam 0.5 mg PO DAILY PRN cyanocobalamin (vitamin B-12) 1,000 mcg IM Q4W 90 days cyclobenzaprine 10 mg PO TID PRN dicyclomine 20 mg PO TID escitalopram oxalate (Lexapro) 10 mg PO DAILY fenofibrate nanocrystallized 145 mg PO DAILY 30 days glipizide 5 mg PO DAILY 30 days hydroxyzine HCl 50 mg PO BID PRN ibuprofen 600 mg PO Q8H PRN insulin glargine (Lantus Solostar U-100 Insulin) 34 units (0.34 mL) subcut QPM 30 days lacosamide 150 mg PO BID lancets (FreeStyle Lancets) POC testing TID lisinopril 40 mg PO DAILY 90 days loperamide 2 mg PO Q6H PRN lorazepam 1 mg PO DAILY PRN metformin ER 1,000 mg (2 x 500 mg) PO ONCE 30 days omeprazole 40 mg PO DAILY 90 days ondansetron 4 mg PO Q8H 4 days pen needle, diabetic (BD Ultra-Fine Short Pen Needle) As directed pregabalin 200 mg (2 x 100 mg) PO BID 30 days promethazine 12.5 mg (10 mL) PO Q6H PRN risperidone 3 mg PO BEDTIME rizatriptan mg PO syringe with needle, safety As directed Tobacco use date assessed: 12/12/23 Dental Screening Dental Screen Date: 03/19/24 HPI HPI Comments History of Present Illness Details 38-year-old female presents with request for Ozempic to help with weight management and diabetes. She notes that she found though her health plan covers Ozempic. He request an order for three-prong cane to help with strength and mobility. She has OA of the right knee and his followed by [facility]. She notes that they are considering total knee replacement of the right knee. She currently ambulates with a walker when experiencing severe knee pain, unsteady gait, and long distances. She thinks using a three-prong cane would be better that a walker. No acute symptoms at this time. [facility] Medical History (Updated 04/23/24 @ 17:35 by Preeti Souza CNP) Sleep apnea Osteoarthritis Memory loss due to medical condition Hypertension High cholesterol C. difficile colitis Neuroforaminal stenosis of lumbar spine Hidradenitis suppurativa Degenerative joint disease of spine Bipolar disorder Depression Anxiety Type 2 diabetes mellitus Epilepsy Fibromyalgia, primary Migraine Surgical History Status post surgical removal of malignant neoplasm of skin Status post placement of VNS (vagus nerve stimulation) device History of eye surgery Hx of endoscopy History of laparoscopic appendectomy H/O wisdom tooth extraction Hx of tubal ligation Hx of tonsillectomy History of total hysterectomy with bilateral salpingo-oophorectomy (BSO) Hx of colonoscopy Hx laparoscopic cholecystectomy History of fundoplication Hx of section Family History Paternal Grandmother Rheumatoid arthritis Thyroid cancer Maternal Grandmother Arthritis Myocardial infarction Ovarian cyst Thyroid disease Cancer Paternal Uncle Colon cancer Mother Ovarian cyst Father Diabetes Depression Hypertension High cholesterol Skin cancer Maternal Grandfather FH: prostate cancer Paternal Grandfather Bipolar 1 disorder Social History Household Members: Family Both parents involved: No Caregiver staying overnight: No Housing: Other (Trailer) Are you a primary career based intervention coordinator to a significant other at home: No Do you presently have visiting nurse or other home services: No 75 years or older and lives alone: No Alcohol intake: never Patient Tobacco Use Status: Former Tobacco user e-Cigarette/Vaping Use: Never Used service: No Current occupational status: disabled Cognitive needs: No Hearing needs: No Vision needs: Yes Questionnaire Thrive Questionnaire Date Thrive assessed: 12/12/23 CONCEPCION-7 AMB Questionnaire CONCEPCION-7 Date CONCEPCION - 7 assessed: 12/12/23 Source: Developed by Drs. Ronnie Pelayo, Isabella Yadav, Jose A Can and colleagues, with an educational darline from [employer]. Review of Systems Const Details: Const Denies chills, Denies fatigue, Denies fever(s), Denies headache(s) and Denies weakness ENT Denies dizziness and Denies headache(s) Card Denies chest pain, Denies lightheadedness, Denies dyspnea and Denies other (Palpitations) Resp Denies cough, Denies dyspnea, Denies wheezing and Denies other ( shortness of breath) GI Denies abdominal pain, Denies melena, Denies hematochezia, Denies change in bowel habits, Denies dyspepsia and Denies nausea Denies hematuria and Denies dysuria Musc Denies abnormal gait, Denies myalgias, Denies arthralgias, Denies numbness and Denies tingling Skin/Breast Denies rash, Denies unusual bruising and Denies wounds Neuro Denies abnormal gait, Denies dizziness, Denies headache(s), Denies memory loss, Denies numbness, Denies Sensory deficit (Neuro), Denies tingling and Denies weakness Psych Denies anxiety, Denies depression, Denies memory loss Endo Denies cold intolerance, Denies fatigue, Denies heat intolerance, Denies polydipsia and Denies polyuria Aller/Immun Denies wheezing Physical exam (Primary Care) Vital Signs: Last Vital Signs Temp 97.6 F 04/23/24 16:35 Pulse 99 04/23/24 16:35 Resp 14 04/23/24 16:35 BP 126/74 04/23/24 16:35 Pulse Ox 98 04/23/24 16:35 Oxygen Delivery Method Room Air 04/23/24 16:35 BMI result Body Mass Index 38.2 Tobacco/Smoking Status: Tobacco use Status Tobacco use date assessed 12/12/23 04/23/24 16:40 Patient Tobacco Use Status Former Tobacco user 04/23/24 16:40 e-Cigarette/Vaping Use Never Used 04/23/24 16:40 Thrive Assessment: Date of Thrive Assessment Date Thrive assessed 12/12/23 04/23/24 16:40 Const Other: General: no acute distress and well developed Nutritional Appearance: well nourished Orientation/consciousness: patient oriented x3 HENMT Head: Yes normocephalic and Yes atraumatic Eyes General: appearance normal, both eyes and all related structures Pupils: Equal, round and reactive pupils present EOM: EOMs intact bilaterally Resp Effort & Inspection: normal respiratory effort Auscultation: clear to auscultation bilaterally Cardio Rate: regular rate Rhythm: regular rhythm Heart sounds: S1 normal heart sound present, S2 normal heart sound present, no gallops, no murmurs and no rubs GI Palpation (GI): No Abdominal aortic bruit present, Soft to palpation, nontender, No hepatosplenomegaly present and No Rebound tenderness present Auscultation: normal bowel sounds General: Yes no CVA tenderness Back/Spine/Pelvis Back: no CVA tenderness Cervical Spine: cervical ROM normal and No Cervical spine tenderness Thoracic/Lumbar Spine: thoraco-lumbar ROM normal, No pain with thoraco-lumbar ROM, No thoracic spinal tenderness and No lumbar spinal tenderness Extrem General: Yes normal to inspection, No edema and No calf tenderness Skin General: warm and dry. Normal skin color. Normal skin turgor Neuro General: patient oriented x3, gait normal and no focal neuro deficit Cranial nerves: Yes Equal, round and reactive pupils present Cognition (Neuro): normal cognition Gait exam (Neuro): Normal gait present Sensory Exam: No Sensory deficit (Neuro) Psych Appearance: grossly normal Affect: normal affect Attitude: cooperative Thought process: Normal thought process present Assessment and Plan Assessment & Plan (1) Type 2 diabetes mellitus: Code(s): E11.9 - Type 2 diabetes mellitus without complications Qualifiers: Diabetes mellitus mcfp insulin use: without mcfp use Diabetes mellitus complication status: without complication Qualified Code(s): E11.9 - Type 2 diabetes mellitus without complications Plan: Her last A1c last month was 8.9%, above goal of less than 7.0% She is on glipizide 5 mg daily, metformin 1000 mg daily and Lantus 34 units every night Will start Ozempic 0.25 mg every week. Advised to take as prescribed. Instructed on the risks, benefits, and potential adverse reactions of the medication Encouraged to check her fasting random blood glucose daily, record readings, and bring to next appointment. Encouraged to report symptoms of hypoglycemia or fasting glucose persistently below 60 Follow-up as planned or return with symptoms or concerns Verbalized understanding and agreed with treatment plan (2) Morbid obesity with BMI of 50.0-59.9, adult: Code(s): E66.01 - Morbid (severe) obesity due to excess calories; Z68.43 - Body mass index [BMI] 50.0-59.9, adult Plan: She currently weighs 251 lb, BMI is 38.2 Healthy diet and routine exercise encouraged Take Ozempic as prescribed Verbalized understanding and agreed with treatment (3) Osteoarthritis: Comment: Right knee Code(s): M19.90 - Unspecified osteoarthritis, unspecified site Plan: She has OA of the right knee and his followed by [facility]. She notes that they are considering total knee replacement of the right knee. She currently ambulates with a walker when experiencing severe right knee pain, unsteady gait, and long distances. She thinks using a three-prong cane would be better that a walker. Three-prong cane ordered with instructions of use Follow-up with Ortho as planned or return with symptoms or concerns Verbalized understanding and agreed with treatment plan Medications: New semaglutide (Ozempic) for 4 weeks 0.25 mg (0.368 mL) subcut QWEEK 4 weeks 1.472 mL 1RF miscellaneous medical supply 3-prong cane for stability 1 ea 0RF miscellaneous medical supply 3-prong cane for stability 1 ea 0RF Coding Level of Care Code Est Pt Level 4 (41856) Complex EM visit Add On G2211 Diagnoses Type 2 diabetes mellitus without complication, without long-term current use of insulin E11.9 Diabetes mellitus mcfp insulin use: without termite helper use Diabetes mellitus complication status: without complication Morbid obesity with BMI of 50.0-59.9, adult E66.01; Z68.43 Osteoarthritis M19.90
[2024-04-23 16:35] VITALS: BP 126/74; PULSE 99; RESP 14; TEMP 36.4; O2SAT 98; BMI 38.2
== END 2024-04-23 17:48 | disposition home or self-care (01) ==
PROVIDERS: PCP Nurse Practitioner Family; Visit Provider Nurse Practitioner Family
DX: E11.9 Type 2 diabetes mellitus without complications (principal); E66.01 Morbid (severe) obesity due to excess calories; Z68.43 Body mass index [BMI] 50.0-59.9, adult; M19.90 Unspecified osteoarthritis, unspecified site
CPT/HCPCS: 99214; G2211

== ENCOUNTER 2024-08-05 15:03 | Outpatient (AMB) | payer OTHER, SELFPAY ==
--- NOTE | 2024-08-05 15:05 | MHC.PC.OV ---
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: No Is last menstrual period known: No Post menopausal: No Patient : No Allergies gabapentin [From NEURONTIN] Allergy (Severe, Verified 08/05/24 15:09) ANAPHYLAXIS midazolam [From VERSED] Allergy (Severe, Verified 08/05/24 15:09) ANAPHYLAXIS ketorolac [From Toradol] Adverse Reaction (Intermediate, Verified 08/05/24 15:09) Hives latex Adverse Reaction (Intermediate, Verified 08/05/24 15:09) Rash Sulfa (Sulfonamide Antibiotics) Adverse Reaction (Intermediate, Verified 08/05/24 15:09) Rash Tobacco use date assessed: 08/05/24 Dental Screening Dental Screen Date: 08/05/24 Did you have a dental visit in the last 12 months?: Yes Did you have a dental problem in the last 6 months where you did not have access to dental care?: No Was dental information given to patient?: Patient has dentist HPI HPI Comments History of Present Illness Details 38-year-old female presents for diabetes follow-up She admits to taking her medications as prescribed without adverse reactions No acute symptoms at this time [facility] Medical History (Updated 04/23/24 @ 17:35 by Preeti Souza CNP) Sleep apnea Osteoarthritis Memory loss due to medical condition Hypertension High cholesterol C. difficile colitis Neuroforaminal stenosis of lumbar spine Hidradenitis suppurativa Degenerative joint disease of spine Bipolar disorder Depression Anxiety Type 2 diabetes mellitus Epilepsy Fibromyalgia, primary Migraine Surgical History Status post surgical removal of malignant neoplasm of skin Status post placement of VNS (vagus nerve stimulation) device History of eye surgery Hx of endoscopy History of laparoscopic appendectomy H/O wisdom tooth extraction Hx of tubal ligation Hx of tonsillectomy History of total hysterectomy with bilateral salpingo-oophorectomy (BSO) Hx of colonoscopy Hx laparoscopic cholecystectomy History of fundoplication Hx of section Family History Paternal Grandmother Rheumatoid arthritis Thyroid cancer Maternal Grandmother Arthritis Myocardial infarction Ovarian cyst Thyroid disease Cancer Paternal Uncle Colon cancer Mother Ovarian cyst Father Diabetes Depression Hypertension High cholesterol Skin cancer Maternal Grandfather FH: prostate cancer Paternal Grandfather Bipolar 1 disorder Social History Household Members: Family Both parents involved: No Caregiver staying overnight: No Housing: Other (Trailer) Are you a primary geriatric personal care aide to a significant other at home: No Do you presently have visiting nurse or other home services: No 75 years or older and lives alone: No Alcohol intake: never Patient Tobacco Use Status: Former Tobacco user e-Cigarette/Vaping Use: Never Used Second Hand Smoke Exposure: No service: No Current occupational status: disabled Cognitive needs: No Hearing needs: No Vision needs: Yes Questionnaire Thrive Questionnaire Date Thrive assessed: 12/12/23 CONCEPCION-7 AMB Questionnaire CONCEPCION-7 Date CONCEPCION - 7 assessed: 12/12/23 Source: Developed by Drs. Ronnie Pelayo, Isabella Yadav, Jose A Can and colleagues, with an educational darline from [employer] Review of Systems Const Details: Const Denies chills, Denies fatigue, Denies fever(s), Denies headache(s) and Denies weakness ENT Denies dizziness and Denies headache(s) Card Denies chest pain, Denies lightheadedness, Denies dyspnea and Denies other (Palpitations) Resp Denies cough, Denies dyspnea, Denies wheezing and Denies other ( shortness of breath) GI Denies abdominal pain, Denies melena, Denies hematochezia, Denies change in bowel habits, Denies dyspepsia and Denies nausea Denies hematuria and Denies dysuria Musc Denies abnormal gait, Denies myalgias, Denies arthralgias, Denies numbness and Denies tingling Skin/Breast Denies rash, Denies unusual bruising and Denies wounds Neuro Denies abnormal gait, Denies dizziness, Denies headache(s), Denies memory loss, Denies numbness, Denies Sensory deficit (Neuro), Denies tingling and Denies weakness Psych Denies anxiety, Denies depression, Denies memory loss Endo Denies cold intolerance, Denies fatigue, Denies heat intolerance, Denies polydipsia and Denies polyuria Aller/Immun Denies wheezing Physical exam (Primary Care) Vital Signs: Last Vital Signs Temp 97.7 F 08/05/24 15:16 Pulse 110 H 08/05/24 15:16 Resp 16 08/05/24 15:16 BP 130/76 08/05/24 15:16 Pulse Ox 94 08/05/24 15:16 Oxygen Delivery Method Room Air 08/05/24 15:16 BMI result Body Mass Index 54.0 Tobacco/Smoking Status: Tobacco use Status Tobacco use date assessed 08/05/24 08/05/24 15:17 Patient Tobacco Use Status Former Tobacco user 08/05/24 15:07 e-Cigarette/Vaping Use Never Used 08/05/24 15:07 Thrive Assessment: Date of Thrive Assessment Date Thrive assessed 12/12/23 08/05/24 15:07 Const Other: General: no acute distress and well developed Nutritional Appearance: well nourished Orientation/consciousness: patient oriented x3 HENMT Head: Yes normocephalic and Yes atraumatic Eyes General: appearance normal, both eyes and all related structures Pupils: Equal, round and reactive pupils present EOM: EOMs intact bilaterally Resp Effort & Inspection: normal respiratory effort Auscultation: clear to auscultation bilaterally Cardio Rate: regular rate Rhythm: regular rhythm Heart sounds: S1 normal heart sound present, S2 normal heart sound present, no gallops, no murmurs and no rubs GI Palpation (GI): No Abdominal aortic bruit present, Soft to palpation, nontender, No hepatosplenomegaly present and No Rebound tenderness present Auscultation: normal bowel sounds General: Yes no CVA tenderness Back/Spine/Pelvis Back: no CVA tenderness Cervical Spine: cervical ROM normal and No Cervical spine tenderness Thoracic/Lumbar Spine: thoraco-lumbar ROM normal, No pain with thoraco-lumbar ROM, No thoracic spinal tenderness and No lumbar spinal tenderness Extrem General: Yes normal to inspection, No edema and No calf tenderness Skin General: warm and dry. Normal skin color. Normal skin turgor Neuro General: patient oriented x3, gait normal and no focal neuro deficit Cranial nerves: Yes Equal, round and reactive pupils present Cognition (Neuro): normal cognition Gait exam (Neuro): Normal gait present Sensory Exam: No Sensory deficit (Neuro) Psych Appearance: grossly normal Affect: normal affect Attitude: cooperative Thought process: Normal thought process present Results AMB Hemoglobin A1c AMB Hemoglobin A1c 8.3 % Last Edit by Glory Hinson on 08/05/24 15:53 Results Reviewed Results Reviewed: Laboratory Last Values Hgb A1c (Clinic) 8.3 % (4.0-6.0) H 08/05/24 15:24 Assessment and Plan Assessment & Plan (1) Type 2 diabetes mellitus: Code(s): E11.9 - Type 2 diabetes mellitus without complications Qualifiers: Diabetes mellitus complication status: without complication Diabetes mellitus longterm insulin use: without longterm use Qualified Code(s): E11.9 - Type 2 diabetes mellitus without complications Plan: A1c today is 8.3%, above goal of less than 7.0%. Previous A1c was 8.9% Start Trulicity 0.75 mg every week Continue to take metformin ER 1000 mg daily and glipizide 5 mg daily ADA diet and routine exercise encouraged She has not had lipid panel blood work done since 11/05/2023. Encouraged to get outstanding lipid panel blood work and urine creatinine/microalbumin ratio lab work done Follow-up in 3 months or sooner with symptoms or concerns Verbalized understanding and agreed with the treatment plan (2) Hypertension: Code(s): I10 - Essential (primary) hypertension Qualifiers: Hypertension type: primary hypertension Qualified Code(s): I10 - Essential (primary) hypertension Plan: Blood pressure is 130/76, slightly above goal of less than 130/80 Continue to take lisinopril as prescribed Low-sodium diet encouraged Follow-up in 3 months Verbalized understanding and agreed with the treatment plan Orders: Orders AMB Hemoglobin A1c Today Z13.9 - Encounter for screening, unspecified Medications: New dulaglutide (Trulicity) 0.75 mg (0.5 mL) subcut QWEEK 2 mL 3RF Coding Level of Care Code Est Pt Level 4 (17103) Diagnoses Type 2 diabetes mellitus without complication, without long-term current use of insulin E11.9 Diabetes mellitus complication status: without complication Diabetes mellitus director long term care insulin use: without longterm use Primary hypertension I10 Hypertension type: primary hypertension
[2024-08-05 15:16] VITALS: BP 130/76; PULSE 110; RESP 16; TEMP 36.5; O2SAT 94; BMI 54.0
== END 2024-08-05 15:33 | disposition home or self-care (01) ==
PROVIDERS: PCP Nurse Practitioner Family; Visit Provider Nurse Practitioner Family
DX: E11.9 Type 2 diabetes mellitus without complications (principal); I10 Essential (primary) hypertension; Z13.9 Encounter for screening, unspecified

== ENCOUNTER → 2024-08-05 15:03 | Outpatient (BNVA) | payer OTHER, SELFPAY | PROVIDERS: PCP Nurse Practitioner Family; Visit Provider Nurse Practitioner Family | DX: E11.9 Type 2 diabetes mellitus without complications (principal); I10 Essential (primary) hypertension; Z79.85 Long-term (current) use of injectable non-insulin antidiabetic drugs | CPT/HCPCS: 83036; 99212 ==

== ENCOUNTER 2024-08-21 09:59 | Outpatient (REF) | payer OTHER, SELFPAY ==
[2024-08-21 11:06] LABS: Appearance Urine Hazy; Color Urine Yellow; Glucose Urine UA Negative (Negative); Leukocyte Esterase Urine Negative (Negative); Nitrite Urine Negative (Negative); PH 5.5 (5.0-9.0); Specific Gravity - Urine >= 1.030 (1.005-1.025); Urine Blood Negative (Negative); Urine Ketones Trace mg/dL (Negative); Urine Protein Negative (Neg-Trace)
[2024-08-21 11:54] LABS: Cholesterol 174 mg/dL (<200); HDL Cholesterol 35 mg/dL (>40); Triglycerides 626 mg/dL (<150)
[2024-08-21 12:13] LABS: Creatinine Urine 250.06 mg/dL; Microalbum/Creatinine Ratio Ur 11.9 ug/mg cr (<30)
[2024-08-21 13:07] LABS: Estimated Average Glucose 174 mg/dL; Hemoglobin A1c % 7.7 % (<6.0); Total Hemoglobin (HGBA1C) 3245.2294 umol/L
== END 2024-08-21 10:00 | disposition home or self-care (01) ==
LOC: HO.LAB 09:59
PROVIDERS: PCP Nurse Practitioner Family; Referring Provider Nurse Practitioner Family; Visit Provider Registered Nurse
DX: Z00.00 Encounter for general adult medical examination without abnormal findings (principal); E11.9 Type 2 diabetes mellitus without complications; Z79.899 Other long term (current) drug therapy
CPT/HCPCS: 36415; 80061; 81003; 82043; 82570; 83036

== ENCOUNTER 2024-09-23 12:55 | Outpatient (AMB) | payer OTHER, SELFPAY ==
--- NOTE | 2024-09-23 12:57 | A.OFFPC_ITS ---
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 Is last menstrual period known: No Post menopausal: No Patient : No Allergies gabapentin [From NEURONTIN] Allergy (Severe, Verified 09/23/24 13:10) ANAPHYLAXIS midazolam [From VERSED] Allergy (Severe, Verified 09/23/24 13:10) ANAPHYLAXIS ketorolac [From Toradol] Adverse Reaction (Intermediate, Verified 09/23/24 13:10) Hives latex Adverse Reaction (Intermediate, Verified 09/23/24 13:10) Rash Sulfa (Sulfonamide Antibiotics) Adverse Reaction (Intermediate, Verified 09/23/24 13:10) Rash Medication List - Last Reconciled 09/23/24 by Preeti Souza CNP blood sugar diagnostic (FreeStyle Lite Strips) POS testing TID blood-glucose meter (FreeStyle Lite Meter kit) As directed cholecalciferol (vitamin D3) 50 mcg PO DAILY 90 days cyanocobalamin (vitamin B-12) 1,000 mcg IM Q4W 90 days cyclobenzaprine 10 mg PO TID PRN dicyclomine 20 mg PO TID dulaglutide (Trulicity) 0.75 mg (0.5 mL) subcut QWEEK escitalopram oxalate (Lexapro) 10 mg PO DAILY fenofibrate 160 mg PO DAILY 30 days glipizide 5 mg PO DAILY 90 days hydroxyzine HCl 50 mg PO BID PRN ibuprofen 600 mg PO Q8H PRN insulin glargine (Lantus Solostar U-100 Insulin) 34 units (0.34 mL) subcut QPM 30 days lacosamide 150 mg PO BID lancets (FreeStyle Lancets) POC testing TID lisinopril 40 mg PO DAILY 90 days loperamide 2 mg PO Q6H PRN lorazepam 1 mg PO DAILY PRN metformin ER 1,000 mg (2 x 500 mg) PO ONCE 30 days miscellaneous medical supply 3-prong cane for stability omega [id number]-fish oil 1,000 mg (120 mg-180 mg) (Fish Oil) 2 caps PO DAILY 30 days omeprazole 40 mg PO DAILY 90 days ondansetron 4 mg PO Q8H 4 days oxcarbazepine 600 mg PO BID pen needle, diabetic (BD Ultra-Fine Short Pen Needle) As directed promethazine 12.5 mg (10 mL) PO Q6H PRN risperidone 3 mg PO BEDTIME rizatriptan mg PO syringe with needle, safety As directed Tobacco use date assessed: 09/23/24 Dental Screening Dental Screen Date: 09/23/24 Did you have a dental visit in the last 12 months?: Yes Did you have a dental problem in the last 6 months where you did not have access to dental care?: No Was dental information given to patient?: Patient has dentist HPI HPI Comments History of Present Illness Details 38-year-old female presents for an ED [facility] follow-up visit. She was evaluated and treated at [facility] ED on 09/05/2024 for palpitations and chest pain x1 month. An external EKG showed evidence of prolonged QTC. Repeat EKG showed resolution of her QTC prolongation. Chest x- ray did not show any evidence of acute abnormality. D-dimer was negative. Labs were reassuring except for and elevated troponin at 12. Repeat troponin was flat at 10. Her condition was deemed likely costochondritis. She was advised to take OTC NSAIDs and Tylenol as needed. She has history of present sleep apnea and admits to using her CPAP machine every night. She has been on CPAP for over a year. Her last follow-up with sleep medicine was about 2 years ago. She notes that her palpitations have not resolved. She reports continued intermittent palpitations lasting about 20 seconds every 1-2 hours. Her last symptoms was about an hour ago. She denies associated anxiety symptoms. She denies drinking caffeinated beverages. She has not experienced chest pain since she was discharged from the hospital. She reports dyspnea on exertion at baseline. PENDING SALE TO [facility] Medical History (Updated 09/23/24 @ 14:35 by Preeti Souza CNP) Sleep apnea Osteoarthritis Memory loss due to medical condition Hypertension High cholesterol C. difficile colitis Neuroforaminal stenosis of lumbar spine Hidradenitis suppurativa Degenerative joint disease of spine Bipolar disorder Depression Anxiety Type 2 diabetes mellitus Epilepsy Fibromyalgia, primary Migraine Surgical History Status post surgical removal of malignant neoplasm of skin Status post placement of VNS (vagus nerve stimulation) device History of eye surgery Hx of endoscopy History of laparoscopic appendectomy H/O wisdom tooth extraction Hx of tubal ligation Hx of tonsillectomy History of total hysterectomy with bilateral salpingo-oophorectomy (BSO) Hx of colonoscopy Hx laparoscopic cholecystectomy History of fundoplication Hx of section Family History Paternal Grandmother Rheumatoid arthritis Thyroid cancer Maternal Grandmother Arthritis Myocardial infarction Ovarian cyst Thyroid disease Cancer Paternal Uncle Colon cancer Mother Ovarian cyst Father Diabetes Depression Hypertension High cholesterol Skin cancer Maternal Grandfather FH: prostate cancer Paternal Grandfather Bipolar 1 disorder Social History Household Members: Family Both parents involved: No Caregiver staying overnight: No Housing: Other (Trailer) Are you a primary healthcare science specialist to a significant other at home: No Do you presently have visiting nurse or other home services: No 75 years or older and lives alone: No Alcohol intake: never Patient Tobacco Use Status: Former Tobacco user e-Cigarette/Vaping Use: Never Used Second Hand Smoke Exposure: No Patient : No service: No Current occupational status: disabled Cognitive needs: No Hearing needs: No Vision needs: Yes Questionnaire Thrive Questionnaire Date Thrive assessed: 12/12/23 I am a: Patient What is your living situation today?: I have a steady place to live Within the past 12 months, did the food you bought not last and you didn't have the money to get more?: Never true Within the past 12 months, did you worry whether your food would run out before you got money to buy more?: I choose not to answer this question Do you have trouble paying for medicines?: I choose not to answer this question Do you have trouble getting transportation to medical appointments?: I choose not to answer this question Do you have trouble paying your heating and electricity bill?: I choose not to answer this question Do you have trouble taking care of your child, family member or friend?: I choose not to answer this question Do you have trouble with day-to-day activities such as bathing, preparing meals, shopping, managing finances, etc.?: I choose not to answer this question Are you currently unemployed and looking for a job?: I choose not to answer this question Are you interested in more education?: I choose not to answer this question Please select the resources that you would like help with: None Currently or been in a relationship where the following occur: No concerns reported THRIVE Score: 0 AUDIT C Alcohol Use Questionnaire (AUDIT-C) 1. How often do you have a drink containing alcohol?: Never Total Score: 0 CONCEPCION-7 AMB Questionnaire CONCEPCION-7 Date CONCEPCION - 7 assessed: 12/12/23 Feeling nervous, anxious, or on edge: 1 = Several days Not being able to stop or control worryin = Not at all Worrying too much about different things: 1 = Several days Trouble relaxin = Several days Being so restless that it is hard to sit still: 0 = Not at all Becoming easily annoyed or irritable: 1 = Several days Feeling afraid as if something awful might happen: 0 = Not at all Total CONCEPCION-7 score (0-4 normal; 5-9 mild; 10-14 moderate; 15-21 severe): 4 Source: Developed by Drs. Ronnie Pelayo, Isabella Yadav, Jose A Can and colleagues, with an educational darline from [employer]. Review of Systems Const Details: Const Denies chills, Denies fatigue, Denies fever(s), Denies headache(s) and Denies weakness ENT Denies dizziness and Denies headache(s) Card Denies chest pain, Denies lightheadedness, Reports dyspnea on exertion, Resp Denies cough, Reports dyspnea on exertion, Denies wheezing and Denies other ( shortness of breath) GI Denies abdominal pain, Denies melena, Denies hematochezia, Denies change in bowel habits, Denies dyspepsia and Denies nausea Denies hematuria and Denies dysuria Musc Denies abnormal gait, Denies myalgias, Denies arthralgias, Denies numbness and Denies tingling Skin/Breast Denies rash, Denies unusual bruising and Denies wounds Neuro Denies abnormal gait, Denies dizziness, Denies headache(s), Denies memory loss, Denies numbness, Denies Sensory deficit (Neuro), Denies tingling and Denies weakness Psych Denies anxiety, Denies depression, Denies memory loss Endo Denies cold intolerance, Denies fatigue, Denies heat intolerance, Denies polydipsia and Denies polyuria Aller/Immun Denies wheezing Physical exam (Primary Care) Vital Signs: Last Vital Signs Temp 98.4 F 09/23/24 13:03 Pulse 114 H 09/23/24 13:03 Resp 20 09/23/24 13:03 BP 138/70 09/23/24 13:03 Pulse Ox 96 09/23/24 13:03 Oxygen Delivery Method Room Air 09/23/24 13:03 BMI result Body Mass Index 54.0 Tobacco/Smoking Status: Tobacco use Status Tobacco use date assessed 09/23/24 09/23/24 13:06 Patient Tobacco Use Status Former Tobacco user 09/23/24 12:59 e-Cigarette/Vaping Use Never Used 09/23/24 12:59 Thrive Assessment: Date of Thrive Assessment Date Thrive assessed 12/12/23 09/23/24 12:59 Currently or been in a relationship where the following occur: No concerns reported Const Other: General: no acute distress and well developed Nutritional Appearance: well nourished Orientation/consciousness: patient oriented x3 [facility] Head: Yes normocephalic and Yes atraumatic Eyes General: appearance normal, both eyes and all related structures Pupils: Equal, round and reactive pupils present EOM: EOMs intact bilaterally Resp Effort & Inspection: normal respiratory effort Auscultation: clear to auscultation bilaterally Cardio Rate: regular rate Rhythm: regular rhythm Heart sounds: S1 normal heart sound present, S2 normal heart sound present, no gallops, no murmurs and no rubs GI Palpation (GI): No Abdominal aortic bruit present, Soft to palpation, nontender, No hepatosplenomegaly present and No Rebound tenderness present Auscultation: normal bowel sounds General: Yes no CVA tenderness Back/Spine/Pelvis Back: no CVA tenderness Extrem General: Yes normal to inspection, No edema and No calf tenderness Skin General: warm and dry. Normal skin color. Normal skin turgor Neuro General: patient oriented x3, gait normal and no focal neuro deficit Cranial nerves: Yes Equal, round and reactive pupils present Cognition (Neuro): normal cognition Gait exam (Neuro): Normal gait present Sensory Exam: No Sensory deficit (Neuro) Psych Appearance: grossly normal Affect: normal affect Attitude: cooperative Thought process: Normal thought process present Office Procedures EKG Details: NSR [id number], Complete Coding Level of Care Code Est Pt Level 4 (59062) Diagnoses Palpitations R00.2 Hospital discharge follow-up Z09 CPT Codes EKG - CPT: 08367-[id number], Complete ([id number]) Assessment & Plan Assessment & Plan (1) Palpitations: Code(s): R00.2 - Palpitations Category: Medical Plan: Patient was recently evaluated and treated in the ED for chest pain and palpitations. Labs and imaging were reassuring. She reports continued intermittent palpitations lasting about 20 seconds every 1-2 hours. Her last symptoms was about an hour ago. No anxiety. No chest pain order symptoms. EKG in the office today with normal sinus rhythm. Vital signs stable. Will order a Holter monitor test and make changes as needed. She has history of sleep apnea on CPAP but has not had a sleep study in a while. Encouraged to follow-up with sleep medicine for follow-up visit. Follow-up with PCP as planned or return sooner with worsening or new symptoms. Verbalized understanding and agreed with treatment plan. (2) Hospital discharge follow-up: Code(s): Z09 - Encounter for follow-up examination after completed treatment for conditions other than malignant neoplasm Category: Medical Plan: Plan as above Orders: Orders ECG holter monitor 24 hour Today R00.2 - Palpitations AMB EKG-In Office Today R00.2 - Palpitations
[2024-09-23 13:03] VITALS: BP 138/70; PULSE 114; RESP 20; TEMP 36.9; O2SAT 96; BMI 54.0
[2024-09-23 13:25] VITALS: PULSE 112
== END 2024-09-23 14:35 | disposition home or self-care (01) ==
LOC: HO.HMCFM 12:56
PROVIDERS: PCP Nurse Practitioner Family; Visit Provider Nurse Practitioner Family
DX: R00.2 Palpitations (principal); Z09 Encounter for follow-up examination after completed treatment for conditions other than malignant neoplasm

== ENCOUNTER → 2024-09-23 12:55 | Outpatient (BNVA) | payer OTHER, SELFPAY | PROVIDERS: PCP Nurse Practitioner Family; Visit Provider Nurse Practitioner Family | DX: Z09 Encounter for follow-up examination after completed treatment for conditions other than malignant neoplasm (principal); R00.2 Palpitations | CPT/HCPCS: 93005; 99212 ==

== ENCOUNTER 2024-11-11 10:33 | Outpatient (REF) | payer OTHER, SELFPAY ==
[2024-11-11 14:50] LABS: Cholesterol 173 mg/dL (<200); HDL Cholesterol 32 mg/dL (>40); Triglycerides 455 mg/dL (<150)
[2024-11-12 10:03] LABS: LDL Cholesterol Direct 86 mg/dL (<100)
== END 2024-11-11 10:34 | disposition home or self-care (01) ==
LOC: HO.WFDLDS 10:33
PROVIDERS: Visit Provider Nurse Practitioner Family
DX: E78.5 Hyperlipidemia, unspecified (principal)
CPT/HCPCS: 36415; 80061; 83721

== ENCOUNTER 2024-11-12 08:14 | Outpatient (AMB) | payer OTHER, SELFPAY ==
--- NOTE | 2024-11-12 08:18 | A.OFFPC_ITS ---
Vital Signs 11/12/24 08:25 11/12/24 08:44 Height 5 ft 8 in Weight 358 lb 2 oz BMI 54.4 BP 131/58 L 120/70 Blood Pressure Location Rt brachial Lt brachial Position Sitting Sitting Respiration 16 Pulse 86 Pulse Source Pulse Oximeter Temp 97.5 F Temp Source Oral Pulse Oximetry (%) 95 Oxygen Delivery Method Room Air Intake Visit Reasons: 3 mos HTN, DM Intake Note: patient here for follow up on HTN and DM Change Over Required: No Is last menstrual period known: No Post menopausal: No Patient : No Allergies gabapentin [From NEURONTIN] Allergy (Severe, Verified 11/12/24 08:32) ANAPHYLAXIS midazolam [From VERSED] Allergy (Severe, Verified 11/12/24 08:32) ANAPHYLAXIS ketorolac [From Toradol] Adverse Reaction (Intermediate, Verified 11/12/24 08:32) Hives latex Adverse Reaction (Intermediate, Verified 11/12/24 08:32) Rash Sulfa (Sulfonamide Antibiotics) Adverse Reaction (Intermediate, Verified 11/12/24 08:32) Rash Medication List - Last Reconciled 11/12/24 by Preeti Souza CNP blood sugar diagnostic (FreeStyle Lite Strips) POS testing TID blood-glucose meter (FreeStyle Lite Meter kit) As directed cholecalciferol (vitamin D3) 50 mcg PO DAILY 90 days cyanocobalamin (vitamin B-12) 1,000 mcg IM Q4W 90 days cyclobenzaprine 10 mg PO TID PRN dicyclomine 20 mg PO TID dulaglutide (Trulicity) 0.75 mg (0.5 mL) subcut QWEEK escitalopram oxalate (Lexapro) 10 mg PO DAILY fenofibrate 160 mg PO DAILY 30 days glipizide 5 mg PO DAILY 90 days hydroxyzine HCl 50 mg PO BID PRN ibuprofen 600 mg PO Q8H PRN insulin glargine (Lantus Solostar U-100 Insulin) 34 units (0.34 mL) subcut QPM 30 days lacosamide 150 mg PO BID lancets (FreeStyle Lancets) POC testing TID lisinopril 40 mg PO DAILY 90 days loperamide 2 mg PO Q6H PRN lorazepam 1 mg PO DAILY PRN metformin ER 1,000 mg (2 x 500 mg) PO ONCE 90 days miscellaneous medical supply 3-prong cane for stability omega 1-dpm-hmt-fish oil 1,000 (120-180) mg (Fish Oil) 2 caps PO DAILY 30 days omeprazole 40 mg PO DAILY 90 days ondansetron 4 mg PO Q8H 4 days oxcarbazepine 600 mg PO BID pen needle, diabetic (BD Ultra-Fine Short Pen Needle) As directed promethazine 12.5 mg (10 mL) PO Q6H PRN risperidone 3 mg PO BEDTIME rizatriptan mg PO syringe with needle, safety As directed Tobacco use date assessed: 11/12/24 Dental Screening Dental Screen Date: 11/12/24 Did you have a dental visit in the last 12 months?: Yes Did you have a dental problem in the last 6 months where you did not have access to dental care?: No Was dental information given to patient?: Patient has dentist HPI HPI Comments History of Present Illness Details 39-year-old female presents for hyperten donita and diabetes follow-up. She admits to taking her medications as prescribed without adverse reactions. She started going to the gym and has been exercising 3 days a week. She makes healthy dietary choices. She offers no complaints and denies acute symptoms at this time. [facility] Medical History (Updated 09/23/24 @ 14:35 by Preeit Souza CNP) Sleep apnea Osteoarthritis Memory loss due to medical condition Hypertension High cholesterol C. difficile colitis Neuroforaminal stenosis of lumbar spine Hidradenitis suppurativa Degenerative joint disease of spine Bipolar disorder Depression Anxiety Type 2 diabetes mellitus Epilepsy Fibromyalgia, primary Migraine Surgical History Status post surgical removal of malignant neoplasm of skin Status post placement of VNS (vagus nerve stimulation) device History of eye surgery Hx of endoscopy History of laparoscopic appendectomy H/O wisdom tooth extraction Hx of tubal ligation Hx of tonsillectomy History of total hysterectomy with bilateral salpingo-oophorectomy (BSO) Hx of colonoscopy Hx laparoscopic cholecystectomy History of fundoplication Hx of section Family History Paternal Grandmother Rheumatoid arthritis Thyroid cancer Maternal Grandmother Arthritis Myocardial infarction Ovarian cyst Thyroid disease Cancer Paternal Uncle Colon cancer Mother Ovarian cyst Father Diabetes Depression Hypertension High cholesterol Skin cancer Maternal Grandfather FH: prostate cancer Paternal Grandfather Bipolar 1 disorder Social History Household Members: Family Both parents involved: No Caregiver staying overnight: No Housing: Other (Trailer) Are you a primary intensive care medicine specialist to a significant other at home: No Do you presently have visiting nurse or other home services: No 75 years or older and lives alone: No Alcohol intake: never Patient Tobacco Use Status: Former Tobacco user e-Cigarette/Vaping Use: Never Used Second Hand Smoke Exposure: No Patient : No service: No Current occupational status: disabled Cognitive needs: No Hearing needs: No Vision needs: Yes Questionnaire Thrive Questionnaire Date Thrive assessed: 09/23/24 I am a: Patient What is your living situation today?: I have a steady place to live Within the past 12 months, did the food you bought not last and you didn't have the money to get more?: Never true Within the past 12 months, did you worry whether your food would run out before you got money to buy more?: I choose not to answer this question Do you have trouble paying for medicines?: I choose not to answer this question Do you have trouble getting transportation to medical appointments?: I choose not to answer this question Do you have trouble paying your heating and electricity bill?: I choose not to answer this question Do you have trouble taking care of your child, family member or friend?: I choose not to answer this question Do you have trouble with day-to-day activities such as bathing, preparing meals, shopping, managing finances, etc.?: I choose not to answer this question Are you currently unemployed and looking for a job?: I choose not to answer this question Are you interested in more education?: I choose not to answer this question Please select the resources that you would like help with: None Currently or been in a relationship where the following occur: No concerns reported THRIVE Score: 0 CONCEPCION-7 AMB Questionnaire CONCEPCION-7 Date CONCEPCION - 7 assessed: 12/12/23 Source: Developed by Drs. Ronnie Pelayo, Isabella Yadav, Jose A Can and colleagues, with an educational darline from [employer]. Review of Systems Const Details: Const Denies chills, Denies fatigue, Denies fever(s), Denies headache(s) and Denies weakness ENT Denies dizziness and Denies headache(s) Card Denies chest pain, Denies lightheadedness, Denies dyspnea and Denies other (Palpitations) Resp Denies cough, Denies dyspnea, Denies wheezing and Denies other ( shortness of breath) GI Denies abdominal pain, Denies melena, Denies hematochezia, Denies change in bowel habits, Denies dyspepsia and Denies nausea Denies hematuria and Denies dysuria Musc Denies abnormal gait, Denies myalgias, Denies arthralgias, Denies numbness and Denies tingling Skin/Breast Denies rash, Denies unusual bruising and Denies wounds Neuro Denies abnormal gait, Denies dizziness, Denies headache(s), Denies memory loss, Denies numbness, Denies Sensory deficit (Neuro), Denies tingling and Denies weakness Psych Denies anxiety, Denies depression, Denies memory loss Endo Denies cold intolerance, Denies fatigue, Denies heat intolerance, Denies polydipsia and Denies polyuria Aller/Immun Denies wheezing Physical exam (Primary Care) Vital Signs: Last Vital Signs Temp 97.5 F 11/12/24 08:25 Pulse 86 11/12/24 08:25 Resp 16 11/12/24 08:25 BP 131/58 L 11/12/24 08:25 Pulse Ox 95 11/12/24 08:25 Oxygen Delivery Method Room Air 11/12/24 08:25 BMI result Body Mass Index 54.4 Tobacco/Smoking Status: Tobacco use Status Tobacco use date assessed 11/12/24 11/12/24 08:28 Patient Tobacco Use Status Former Tobacco user 11/12/24 08:19 e-Cigarette/Vaping Use Never Used 11/12/24 08:19 Thrive Assessment: Date of Thrive Assessment Date Thrive assessed 09/23/24 11/12/24 08:19 Currently or been in a relationship where the following occur: No concerns reported Const Other: General: no acute distress and well developed Nutritional Appearance: well nourished Orientation/consciousness: patient oriented x3 HENMT Head: Yes normocephalic and Yes atraumatic Eyes General: appearance normal, both eyes and all related structures Pupils: Equal, round and reactive pupils present EOM: EOMs intact bilaterally Resp Effort & Inspection: normal respiratory effort Auscultation: clear to auscultation bilaterally Cardio Rate: regular rate Rhythm: regular rhythm Heart sounds: S1 normal heart sound present, S2 normal heart sound present, no gallops, no murmurs and no rubs GI Palpation (GI): No Abdominal aortic bruit present, Soft to palpation, nontender, No hepatosplenomegaly present and No Rebound tenderness present Auscultation: normal bowel sounds General: Yes no CVA tenderness Back/Spine/Pelvis Back: no CVA tenderness Cervical Spine: cervical ROM normal and No Cervical spine tenderness Thoracic/Lumbar Spine: thoraco-lumbar ROM normal, No pain with thoraco-lumbar ROM, No thoracic spinal tenderness and No lumbar spinal tenderness Extrem General: Yes normal to inspection, No edema and No calf tenderness Skin General: warm and dry. Normal skin color. Normal skin turgor Neuro General: patient oriented x3, gait normal and no focal neuro deficit Cranial nerves: Yes Equal, round and reactive pupils present Cognition (Neuro): normal cognition Gait exam (Neuro): Normal gait present Sensory Exam: No Sensory deficit (Neuro) Psych Appearance: grossly normal Affect: normal affect Attitude: cooperative Thought process: Normal thought process present Coding Level of Care Code Est Pt Level 4 (06600) Diagnoses Primary hypertension I10 Hypertension type: primary hypertension Type 2 diabetes mellitus without complication, without long-term current use of insulin E11.9 Diabetes mellitus assisted insulin use: without bed bug exterminator use Diabetes mellitus complication status: without complication Dyslipidemia E78.5 Vitamin D deficiency E55.9 Laboratory tests ordered as part of a complete physical exam (CPE) Z00.00 Assessment & Plan Assessment & Plan (1) Hypertension: Code(s): I10 - Essential (primary) hypertension Category: Medical Qualifiers: Hypertension type: primary hypertension Qualified Code(s): I10 - Essential (primary) hypertension Plan: Resting blood pressure is 120/70, within goal of less than 130/80. Continue current treatment regimen. Low-sodium diet encouraged. Advised to get fasting lab work done before next visit. Follow-up in 2 months for an extended physical exam and diabetes or sooner with symptoms or concerns. Verbalized understanding and agreed with treatment plan. (2) Type 2 diabetes mellitus: Code(s): E11.9 - Type 2 diabetes mellitus without complications Category: Medical Qualifiers: Diabetes mellitus assisted insulin use: without assisted use Diabetes mellitus complication status: without complication Qualified Code(s): E11.9 - Type 2 diabetes mellitus without complications Plan: Recent A1c on 08/21/2024 was 7.7%, slightly above goal of less than 7.0% Continue current treatment regimen. ADA diet and routine exercise encouraged. Will recheck A1c in 2 months. Verbalized understanding and agreed with treatment plan. (3) Dyslipidemia: Code(s): E78.5 - Hyperlipidemia, unspecified Category: Medical Plan: Recent triglyceride level with significant improvement, for 55; previous level was 626. HDL level is low, 32. LDL direct is pending. Continue current treatment regimen. Advised to limit foods high in saturated fat and avoid foods high in trans fat. Routine exercise encouraged. Perform fasting lipid panel blood work 2-3 days before her next visit. Verbalized understanding and agreed with plan. (4) Vitamin D deficiency: Code(s): E55.9 - Vitamin D deficiency, unspecified Category: Medical Plan: Continue current treatment regimen. Will check vitamin-D level and make changes as needed. Verbalized understanding and agreed with the plan. (5) Laboratory tests ordered as part of a complete physical exam (CPE): Code(s): Z00.00 - Encounter for general adult medical examination without abnormal findings Category: Medical Plan: Fasting labs ordered as part of a complete physical exam. Advised to fast for at least 10 hours before getting labs drawn. May drink water Verbalized understanding and agreed with treatment plan. Orders: Orders Complete Blood Count Auto Diff 2 Months Z00.00 - Encounter for general adult medical examination without abnormal findings Lipid Panel 2 Months Z00.00 - Encounter for general adult medical examination without abnormal findings Vitamin D 25-OH Total 2 Months E55.9 - Vitamin D deficiency, unspecified Comprehensive [place]. Panel Fast 2 Months Z00.00 - Encounter for general adult medical examination without abnormal findings TSH reflex Free T4 2 Months Z00.00 - Encounter for general adult medical examination without abnormal findings
[2024-11-12 08:25] VITALS: BP 131/58; PULSE 86; RESP 16; TEMP 36.4; O2SAT 95; BMI 54.4
[2024-11-12 08:44] VITALS: BP 120/70
== END 2024-11-12 09:07 | disposition home or self-care (01) ==
PROVIDERS: PCP Nurse Practitioner Family; Visit Provider Nurse Practitioner Family
DX: I10 Essential (primary) hypertension (principal); E11.9 Type 2 diabetes mellitus without complications; E78.5 Hyperlipidemia, unspecified; E55.9 Vitamin D deficiency, unspecified; Z00.00 Encounter for general adult medical examination without abnormal findings

== ENCOUNTER → 2024-11-12 08:14 | Outpatient (BNVA) | payer OTHER, SELFPAY | PROVIDERS: PCP Nurse Practitioner Family; Visit Provider Nurse Practitioner Family | DX: I10 Essential (primary) hypertension (principal); E11.9 Type 2 diabetes mellitus without complications; E78.5 Hyperlipidemia, unspecified; E55.9 Vitamin D deficiency, unspecified | CPT/HCPCS: 99212 ==

== ENCOUNTER 2024-12-03 12:51 | Outpatient (AMB) | payer OTHER, SELFPAY ==
--- NOTE | 2024-12-03 12:53 | A.OFFPC_ITS ---
Vital Signs 12/03/24 12:58 Height 5 ft 8 in Weight 353 lb BMI 53.7 BP 134/74 Blood Pressure Location Rt brachial Position Sitting Respiration 14 Pulse 93 Pulse Source Pulse Oximeter Pulse Oximetry (%) 94 Oxygen Delivery Method Room Air Intake Visit Reasons: EDF, pt of [place] Intake Note: ER discharge follow up Art Psychotherapist Or Therapist Required: No Allergies gabapentin [From NEURONTIN] Allergy (Severe, Verified 12/03/24 13:15) ANAPHYLAXIS midazolam [From VERSED] Allergy (Severe, Verified 12/03/24 13:15) ANAPHYLAXIS ketorolac [From Toradol] Adverse Reaction (Intermediate, Verified 12/03/24 13:15) Hives latex Adverse Reaction (Intermediate, Verified 12/03/24 13:15) Rash Sulfa (Sulfonamide Antibiotics) Adverse Reaction (Intermediate, Verified 12/03/24 13:15) Rash Medication List - Last Reconciled 12/03/24 by Rosalia Gan, TICKET BROKER- albuterol sulfate 90 mcg/actuation 2 puffs inhalation Q6H PRN blood sugar diagnostic (FreeStyle Lite Strips) POS testing TID blood-glucose meter (FreeStyle Lite Meter kit) As directed cholecalciferol (vitamin D3) 50 mcg PO DAILY 90 days cyanocobalamin (vitamin B-12) 1,000 mcg IM Q4W 90 days cyclobenzaprine 10 mg PO TID PRN dicyclomine 20 mg PO TID dulaglutide (Trulicity) 0.75 mg (0.5 mL) subcut QWEEK escitalopram oxalate (Lexapro) 10 mg PO DAILY fenofibrate 160 mg PO DAILY 30 days glipizide 5 mg PO DAILY 90 days hydroxyzine HCl 50 mg PO BID PRN ibuprofen 600 mg PO Q8H PRN insulin glargine (Lantus Solostar U-100 Insulin) 34 units (0.34 mL) subcut QPM 30 days lacosamide 150 mg PO BID lancets (FreeStyle Lancets) POC testing TID lisinopril 40 mg PO DAILY 90 days loperamide 2 mg PO Q6H PRN lorazepam 1 mg PO DAILY PRN metformin ER 1,000 mg (2 x 500 mg) PO ONCE 90 days miscellaneous medical supply 3-prong cane for stability omega 4-qne-qut-fish oil 1,000 (120-180) mg (Fish Oil) 2 caps PO DAILY 30 days omeprazole 40 mg PO DAILY 90 days ondansetron 4 mg PO Q8H 4 days oxcarbazepine 600 mg PO BID pen needle, diabetic (BD Ultra-Fine Short Pen Needle) As directed promethazine 12.5 mg (10 mL) PO Q6H PRN risperidone 3 mg PO BEDTIME rizatriptan mg PO syringe with needle, safety As directed Tobacco use date assessed: 11/12/24 Dental Screening Dental Screen Date: 11/12/24 HPI HPI Comments History of Present Illness Details [age] old female major depressive disorder, Bipolar, seizures, obesity, biliary colic, DM2, HLD, presents today for hospital discharge follow up. She was seen at the emergency room 11/18/2024. The hospital is [facility]. She presented with chest tightness. The workup did not reveal any acute findings. ACS, NSTEMI, PE in airway disease were all ruled out. Her troponins were flat. Her EKG was normal. Her random glucose was 200, mild elevation in WBCs of 12.9, chest x-ray showed no acute abnormality no findings of edema History of Present Illness The patient is a 39-year-old female presenting with asthma, characterized by chest tightness and wheezing exacerbated by physical activity. Symptoms have persisted for an extended period and episodes of heart palpitations have been alarming, prompting ER visits. Patient reports fatigue relieved by Albuterol which was provided during an ER visit. Albuterol usage reduces palpitations and chest tightness but needs it frequently. No current specialist care for pulmonary issues has been established. Additionally, the patient experiences significant allergy symptoms and reports reliance on Benadryl for relief. Patient notes aggravated symptoms with cold weather. An A1c test result has indicated substantial improvement since last assessment. Social History - Actively attempting weight loss throug h increased activity, although experiencing difficulty due to asthma symptoms. - Regular use of Benadryl for allergies. 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 Physical Exam Awake alert NAD RRR, 2/6 murmur RSB LS clear and dim throughout Results - A1c: 7.3 done in office today Plan - Refer patient to pulmonology for compr ehensive pulmonary function testing. - Initiate oral Cetirizine for allergy m anagement. - Prescribe Qvar inhaler for maintenance of asthma; instruct on use of spacer and mouth rinsing post-use. - Provide refill for Albuterol inhaler f or acute asthma symptom management. sparing use. - Schedule an echocardiogram to evaluate the heart murmur. - Administer flu and tetanus vaccination s. Patient was informed and verbally consented to the use of an ambient scribe for clinic note documentation during this visit. Discussion Notes I discussed with the patient the likely diagnosis of asthma contributing to their breathing difficulties and outlined the use of Qvar as a long-term inhaled steroid strategy. Risks, such as oral candidiasis, were explained, emphasizing the importance of mouth rinsing post-inhalation. I reviewed allergy symptoms possibly exacerbating asthma, prescribing Cetirizine and educating the patient on its utility for allergy-related symptom control. We established a pulmonology referral to further assess and refine asthma management. Discussed implications and necessity of echocardiogram for the heart murmur detected. Advised the patient to monitor symptoms and seek emergency care if Albuterol is ineffective during severe asthma exacerbations. Reviewed and commended the significant progress in diabetes management as evident by improved A1c. Patient was agreeable and expressed understanding of the treatment plan, follow-ups, and preventative measures. Total time spent caring for the patient today was 45 minutes. This includes time spent before the visit reviewing the chart, time spent during the visit, and time spent after the visit on documentation, reviewing laboratory results, diagnostic imaging, medications, performing a medically necessary evaluation, counseling on diagnoses, care coordination, ordering appropriate tests, ordering appropriate medications, review of tests performed by other providers, reporting test results with the patient, communication with other healthcare providers. [facility] Medical History (Updated 12/03/24 @ 13:18 by Rosalia Gan [facility]) Sleep apnea Osteoarthritis Memory loss due to medical condition Hypertension High cholesterol C. difficile colitis Neuroforaminal stenosis of lumbar spine Hidradenitis suppurativa Degenerative joint disease of spine Bipolar disorder Depression Anxiety Type 2 diabetes mellitus Epilepsy Fibromyalgia, primary Migraine Surgical History Status post surgical removal of malignant neoplasm of skin Status post placement of VNS (vagus nerve stimulation) device History of eye surgery Hx of endoscopy History of laparoscopic appendectomy H/O wisdom tooth extraction Hx of tubal ligation Hx of tonsillectomy History of total hysterectomy with bilateral salpingo-oophorectomy (BSO) Hx of colonoscopy Hx laparoscopic cholecystectomy History of fundoplication Hx of section Family History Paternal Grandmother Rheumatoid arthritis Thyroid cancer Maternal Grandmother Arthritis Myocardial infarction Ovarian cyst Thyroid disease Cancer Paternal Uncle Colon cancer Mother Ovarian cyst Father Diabetes Depression Hypertension High cholesterol Skin cancer Maternal Grandfather FH: prostate cancer Paternal Grandfather Bipolar 1 disorder Social History Household Members: Family Both parents involved: No Caregiver staying overnight: No Housing: Other (Trailer) Are you a primary child care development specialist to a significant other at home: No Do you presently have visiting nurse or other home services: No 75 years or older and lives alone: No Alcohol intake: never Patient Tobacco Use Status: Former Tobacco user e-Cigarette/Vaping Use: Never Used Second Hand Smoke Exposure: No service: No Current occupational status: disabled Cognitive needs: No Hearing needs: No Vision needs: Yes Questionnaire PHQ-9 Over the last 2 weeks, how often have you been bothered by any of the following problems? 1. Little interest or pleasure in doing things: not at all 2. Feeling down, depressed, or hopeless: not at all 3. Trouble falling or staying asleep, or sleeping too much: not at all 4. Feeling tired or having little energy: several days 5. Poor appetite or overeating: not at all 6. Feeling bad about yourself - or that you are a failure or have let yourself or your family down: not at all 7. Trouble concentrating on things, such as reading the newspaper or watching television: not at all 8. Moving or speaking so slowly that other people could have noticed. Or the opposite - being so fidgety or restless that you have been moving around a lot more than usual: not at all 9. Thoughts that you would be better off or of hurting yourself in some way: not at all Total score: 1 69017 - PHQ-9 Billing: Yes Source: Developed by Drs. Ronnie Pelayo, Isabella Yadav, Jose A Can and colleagues, with an educational darline from [employer]. Thrive Questionnaire Date Thrive assessed: 12/03/24 I am a: Patient What is your living situation today?: I have a steady place to live Within the past 12 months, did the food you bought not last and you didn't have the money to get more?: I choose not to answer this question Within the past 12 months, did you worry whether your food would run out before you got money to buy more?: I choose not to answer this question Do you have trouble paying for medicines?: I choose not to answer this question Do you have trouble getting transportation to medical appointments?: I choose not to answer this question Do you have trouble paying your heating and electricity bill?: I choose not to answer this question Do you have trouble taking care of your child, family member or friend?: I choose not to answer this question Do you have trouble with day-to-day activities such as bathing, preparing meals, shopping, managing finances, etc.?: I choose not to answer this question Are you currently unemployed and looking for a job?: I choose not to answer this question Are you interested in more education?: I choose not to answer this question Please select the resources that you would like help with: None Currently or been in a relationship where the following occur: No concerns reported THRIVE Score: 0 AUDIT C Alcohol Use Questionnaire (AUDIT-C) 1. How often do you have a drink containing alcohol?: Never Total Score: 0 CONCEPCION-7 AMB Questionnaire CONCEPCION-7 Date CONCEPCION - 7 assessed: 12/03/24 Feeling nervous, anxious, or on edge: 1 = Several days Not being able to stop or control worryin = Several days Worrying too much about different things: 1 = Several days Trouble relaxin = Not at all Being so restless that it is hard to sit still: 0 = Not at all Becoming easily annoyed or irritable: 0 = Not at all Feeling afraid as if something awful might happen: 0 = Not at all Total CONCEPCION-7 score (0-4 normal; 5-9 mild; 10-14 moderate; 15-21 severe): 3 Source: Developed by Drs. Ronnie Pelayo, Isabella Yadav, Jose A Can and colleagues, with an educational darline from [employer]. CONCEPCION-7 Assessment Billing CONCEPCION-7 Assessment Tool: CONCEPCION-7 Assessment 55143 Physical exam (Primary Care) Vital Signs: Last Vital Signs Pulse 93 12/03/24 12:58 Resp 14 12/03/24 12:58 BP 134/74 12/03/24 12:58 Pulse Ox 94 12/03/24 12:58 Oxygen Delivery Method Room Air 12/03/24 12:58 BMI result Body Mass Index 53.7 Tobacco/Smoking Status: Tobacco use Status Tobacco use date assessed 11/12/24 12/03/24 12:56 Patient Tobacco Use Status Former Tobacco user 12/03/24 12:56 e-Cigarette/Vaping Use Never Used 12/03/24 12:56 PHQ-9: PHQ-9 Score PHQ-9: Total score 1 12/03/24 16:38 Thrive Assessment: Date of Thrive Assessment Date Thrive assessed 12/03/24 12/03/24 12:56 Currently or been in a relationship where the following occur: No concerns reported Office Procedures Flu Questionnaire Does the patient have a severe egg allergy?: No Does the patient have severe life threatening allergies?: No Does the patient have a fever or illness today?: No Has the patient ever had Guillain-Tipton Syndrome?: No Has the patient ever had any past reaction to a flu shot?: No Results AMB Hemoglobin A1c AMB Hemoglobin A1c 7.3 % Last Edit by Jeanna Koenig MA on 12/03/24 13:16 Immunizations Fluarix Triv [id number] (PF) 45 mcg (15 mcg x 3)/0.5 mL IM syringe Performing Provider: CAMRYN Greenfield Performing [facility] [facility] Administered by: Rochelle Kothari CMA on 12/03/24 15:48 Dose Route Admin Location Dispensed Lot Number Expiration Date NDC Hone Operator 0.5 mL IM Right Deltoid 0.5 mL [id number] 05/16/25 90680-010-16 [employer] VIS Given Date VIS Provided VIS Publication Date 12/03/24 Single Vaccine 21 Eligibility Eligibility Date Funding Source Not [facility] Eligible 12/03/24 Private Boostrix Tdap 2.5 Lf unit-8 mcg-5 Lf/0.5 mL intramuscular syringe Performing Provider: CAMRYN Greenfield Performing Location: [facility] Administered by: Rochelle Kothari CMA on 12/03/24 15:48 Dose Route Admin Location Dispensed Lot Number Expiration Date NDC Hone Operator 0.5 mL IM Right Deltoid 0.5 mL [id number] 12/08/26 [id number] [employer] VIS Given Date VIS Provided VIS Publication Date 12/03/24 Single Vaccine 21 Eligibility Eligibility Date Funding Source Not [facility] Eligible 12/03/24 Private Results Reviewed Results Reviewed: Laboratory Last Values Hgb A1c (Clinic) 7.3 % (4.0-6.0) H 12/03/24 13:16 Coding Level of Care Code Est Pt Level 5 (58601) Complex EM visit Add On G2211 Diagnoses Hospital discharge follow-up Z09 Palpitations R00.2 Morbid obesity with BMI of 50.0-59.9, adult E66.01; Z68.43 Environmental allergies Z91.09 SOB (shortness of breath) R06.02 Heart murmur on physical examination R01.1 Influenza vaccination administered at current visit Z23 Need for Tdap vaccination Z23 Additional Codes CONCEPCION-7 Assessment Billing - CONCEPCION-7 Assessment Tool: CONCEPCION-7 Assessment 93206 ([id number]) PHQ-9 - 44363 - PHQ-9 Billing: Yes ([id number]) Assessment & Plan Assessment & Plan (1) Hospital discharge follow-up: Code(s): Z09 - Encounter for follow-up examination after completed treatment for conditions other than malignant neoplasm Category: Medical (2) Palpitations: Code(s): R00.2 - Palpitations Category: Medical (3) Morbid obesity with BMI of 50.0-59.9, adult: Code(s): E66.01 - Morbid (severe) obesity due to excess calories; Z68.43 - Body mass index [BMI] 50.0-59.9, adult Category: Medical (4) Environmental allergies: Code(s): Z91.09 - Other allergy status, other than to drugs and biological substances Category: Medical (5) SOB (shortness of breath): Code(s): R06.02 - Shortness of breath Category: Medical (6) Heart murmur on physical examination: Code(s): R01.1 - Cardiac murmur, unspecified Category: Medical (7) Influenza vaccination administered at current visit: Code(s): Z23 - Encounter for immunization (8) Need for Tdap vaccination: Code(s): Z23 - Encounter for immunization Plan . Orders: Orders PFT pulmonary function test Today R06.02 - Shortness of breath, Z91.09 - Other allergy status, other than to drugs and biological substances CA echo transthoracic complete Today R01.1 - Cardiac murmur, unspecified TDaP Immunization Today Z23 - Encounter for immunization AMB Hemoglobin A1c Today Z13.9 - Encounter for screening, unspecified Influenza [id number] Immunization Today Z23 - Encounter for immunization Referrals Pulmonology Referral R06.02 - Shortness of breath, Z91.09 - Other allergy status, other than to drugs and biological substances Medications: New cetirizine (Allergy Relief (cetirizine)) 10 mg PO DAILY 90 tabs 0RF beclomethasone dipropionate 40 mcg/actuation (Qvar RediHaler) 1 inh inhalation BID 30 days 10.6 grams 0RF albuterol sulfate 90 mcg/actuation 2 puffs inhalation Q6H PRN 6.7 grams 0RF bronchospasm Patient Instructions: Patient Instructions - Take Cetirizine once daily as prescribed for allergies. - Use Qvar inhaler twice daily; rinse mouth after each use. - Use Albuterol for acute asthma symptoms, but aim to decrease frequency with new regimen. - Attend pulmonology appointment for further evaluation of asthma. - Follow up on echocardiogram per cardiology recommendations. - Maintain scheduled appointment for diabetes management follow-up. 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 - Return for any worsening symptoms or if Albuterol fails to improve breathing difficulties. - Expect soreness post-tetanus vaccination.
[2024-12-03 12:58] VITALS: BP 134/74; PULSE 93; RESP 14; O2SAT 94; BMI 53.7
== END 2024-12-03 13:37 | disposition home or self-care (01) ==
PROVIDERS: PCP Nurse Practitioner Family; Visit Provider Nurse Practitioner Family
DX: R00.2 Palpitations (principal); Z09 Encounter for follow-up examination after completed treatment for conditions other than malignant neoplasm; E66.01 Morbid (severe) obesity due to excess calories; Z68.43 Body mass index [BMI] 50.0-59.9, adult; Z91.09 Other allergy status, other than to drugs and biological substances; R06.02 Shortness of breath; R01.1 Cardiac murmur, unspecified; Z23 Encounter for immunization

== ENCOUNTER → 2024-12-03 12:51 | Outpatient (BNVA) | payer OTHER, SELFPAY | PROVIDERS: PCP Nurse Practitioner Family; Visit Provider Nurse Practitioner Family | DX: Z09 Encounter for follow-up examination after completed treatment for conditions other than malignant neoplasm (principal); Z23 Encounter for immunization; R00.2 Palpitations; E66.01 Morbid (severe) obesity due to excess calories; Z68.43 Body mass index [BMI] 50.0-59.9, adult; R06.02 Shortness of breath; R00.1 Bradycardia, unspecified; Z91.09 Other allergy status, other than to drugs and biological substances | CPT/HCPCS: 83036; 90471; 90472; 90656; 90715; 96127; 99212 ==

== ENCOUNTER 2024-12-14 09:00 | Outpatient (AMB) | payer OTHER, SELFPAY ==
[2024-12-14 09:05] VITALS: BP 146/68; PULSE 96; O2SAT 98; BMI 53.5
--- NOTE | 2024-12-14 09:05 | MHC.OFFVIS ---
Vital Signs 12/14/24 09:05 Height 5 ft 8 in Weight 352 lb BMI 53.5 BP 146/68 H Blood Pressure Location Rt brachial Position Sitting Pulse 96 Pulse Source Pulse Oximeter Pulse Oximetry (%) 98 Oxygen Delivery Method Room Air Intake Visit Reasons: SOB/ Allergies Postpartum Nurse Required: No Allergies gabapentin [From NEURONTIN] Allergy (Severe, Verified 12/14/24 09:05) ANAPHYLAXIS midazolam [From VERSED] Allergy (Severe, Verified 12/14/24 09:05) ANAPHYLAXIS ketorolac [From Toradol] Adverse Reaction (Intermediate, Verified 12/14/24 09:05) Hives latex Adverse Reaction (Intermediate, Verified 12/14/24 09:05) Rash Sulfa (Sulfonamide Antibiotics) Adverse Reaction (Intermediate, Verified 12/14/24 09:05) Rash Medication List - Last Reconciled 12/14/24 by Bettina Guerra, FIL[employer] DEVELOPER albuterol sulfate 90 mcg/actuation 2 puffs inhalation Q6H PRN blood sugar diagnostic (FreeStyle Lite Strips) POS testing TID blood-glucose meter (FreeStyle Lite Meter kit) As directed cetirizine (Allergy Relief (cetirizine)) 10 mg PO DAILY cholecalciferol (vitamin D3) 50 mcg PO DAILY 90 days cyanocobalamin (vitamin B-12) 1,000 mcg IM Q4W 90 days cyclobenzaprine 10 mg PO TID PRN dicyclomine 20 mg PO TID dulaglutide (Trulicity) 0.75 mg (0.5 mL) subcut QWEEK escitalopram oxalate (Lexapro) 10 mg PO DAILY fenofibrate 160 mg PO DAILY 30 days glipizide 5 mg PO DAILY 90 days hydroxyzine HCl 50 mg PO BID PRN ibuprofen 600 mg PO Q8H PRN insulin glargine (Lantus Solostar U-100 Insulin) 34 units (0.34 mL) subcut QPM 30 days lacosamide 150 mg PO BID lancets (FreeStyle Lancets) POC testing TID lisinopril 40 mg PO DAILY 90 days loperamide 2 mg PO Q6H PRN lorazepam 1 mg PO DAILY PRN metformin ER 1,000 mg (2 x 500 mg) PO ONCE 90 days miscellaneous medical supply 3-prong cane for stability mometasone 100 mcg/actuation (Asmanex HFA) 1 inh inhalation BID omega 0-[id number]-hmc-fish oil 1,000 (120-180) mg (Fish Oil) 2 caps PO DAILY 30 days omeprazole 40 mg PO DAILY 90 days ondansetron 4 mg PO Q8H 4 days oxcarbazepine 600 mg PO BID pen needle, diabetic (BD Ultra-Fine Short Pen Needle) As directed promethazine 12.5 mg (10 mL) PO Q6H PRN risperidone 3 mg PO BEDTIME rizatriptan mg PO syringe with needle, safety As directed HPI HPI SOB/ Allergies: Details: Sandy is a pleasant 39 year old female, former smoker, quit 3+ years ago with less than 10 pack year history with underlying BIBIANA on CPAP, major depressive disorder, Bipolar, seizures, obesity, DM2, and HLD. She was referred by PCP for pulmonary evaluation. She reports progressively worsening dyspnea on exertion, wheezing and chest tightness over the last few years. She also notes allergies and post nasal drip contributing to cough. Over the last few days cough has been productive with green sputum. She reports prior h/o recurrent bronchitis. She was recently prescribed ICS and albuterol MDI which she has been using with moderate effect. She has a PFT and echo scheduled. She was seen at [facility] ED on multiple occasions for these symptoms, last on 11/18/2024. During evaluation no acute findings. Her troponins and Ddimer negative and EKG/CXR was unremarkable. She reports prior dx of exercise induced asthma many years ago. She reports seasonal allergies, no recent allergy testing. She has two cats at home. She has been using zyrtec with suboptimal effect, previously used benadryl and flonase. She denies any occupational exposures. She denies any pertinent family history. [facility] Medical History (Updated 12/03/24 @ 13:18 by THOMAS Greenfield-) Sleep apnea Osteoarthritis Memory loss due to medical condition Hypertension High cholesterol C. difficile colitis Neuroforaminal stenosis of lumbar spine Hidradenitis suppurativa Degenerative joint disease of spine Bipolar disorder Depression Anxiety Type 2 diabetes mellitus Epilepsy Fibromyalgia, primary Migraine Surgical History Status post surgical removal of malignant neoplasm of skin Status post placement of VNS (vagus nerve stimulation) device History of eye surgery Hx of endoscopy History of laparoscopic appendectomy H/O wisdom tooth extraction Hx of tubal ligation Hx of tonsillectomy History of total hysterectomy with bilateral salpingo-oophorectomy (BSO) Hx of colonoscopy Hx laparoscopic cholecystectomy History of fundoplication Hx of section Family History Paternal Grandmother Rheumatoid arthritis Thyroid cancer Maternal Grandmother Arthritis Myocardial infarction Ovarian cyst Thyroid disease Cancer Paternal Uncle Colon cancer Mother Ovarian cyst Father Diabetes Depression Hypertension High cholesterol Skin cancer Maternal Grandfather FH: prostate cancer Paternal Grandfather Bipolar 1 disorder Social History Household Members: Family Housing: Other (Trailer) Are you a primary life care planner to a significant other at home: No Do you presently have visiting nurse or other home services: No Alcohol intake: never Patient Tobacco Use Status: Former Tobacco user e-Cigarette/Vaping Use: Never Used Second Hand Smoke Exposure: No service: No Current occupational status: disabled Cognitive needs: No Hearing needs: No Vision needs: Yes Review of Systems Const Denies chills, Denies excessive sweating, Denies fever(s), Denies headache(s) and Denies night sweats Eyes Denies dry eyes and Reports itchy eyes ENT Reports Normal hearing present, Denies headache(s), Reports post nasal drip and Denies sore throat Card Denies chest pain, Denies chest pain at rest, Denies chest pain with activity, Denies claudication, Denies leg edema, Reports dyspnea on exertion, Denies orthopnea and Denies paroxysmal nocturnal dyspnea Resp Reports change in phlegm color, Denies chest congestion, Reports cough, Denies excessive phlegm production, Denies pain on inspiration, Denies pain with cough, Reports dyspnea on exertion, Denies stridor and Reports wheezing Musc Denies myalgias Neuro Reports Normal hearing present and Denies headache(s) Endo Denies excessive sweating Harshad/Lymph Denies lymphadenopathy Aller/Immun Reports itchy eyes, Reports seasonal rhinorrhea and Reports wheezing Physical Exam Vital Signs: Last Vital Signs Pulse 96 12/14/24 09:05 BP 146/68 H 12/14/24 09:05 Pulse Ox 98 12/14/24 09:05 Oxygen Delivery Method Room Air 12/14/24 09:05 BMI result Body Mass Index 53.5 Const General: cooperative, healthy appearing, comfortable, no acute distress, well developed and alert Nutritional Appearance: obese Orientation/consciousness: patient oriented x3 Limitations: no limitations HEENT Head: Yes normal to inspection, Yes normocephalic and Yes atraumatic Ears: hearing grossly normal bilaterally and external ears normal Eyes General: appearance normal, both eyes and all related structures Eyelids: Yes eyelids normal Sclerae: sclerae normal EOM: EOMs intact bilaterally Neck Neck: Yes normal visual inspection and Yes no lymphadenopathy Lymphatic: no lymphadenopathy noted Chest Chest palpation & inspection: normal inspection of the chest Resp Effort & Inspection: normal respiratory effort, able to speak in complete sentences, no audible wheezes, no cough, no stridor, not tachypneic, no tripod positioning and no use of accessory muscles Auscultation: clear to auscultation bilaterally Cardio Jugular venous distension: no JVD Rate: regular rate Rhythm: regular rhythm Skin Other: warm, dry General skin exam: no rashes or lesions noted Neuro General: patient oriented x3 Cranial nerves: Yes Normal hearing present Cognition (Neuro): normal cognition Gait exam (Neuro): Normal gait present Extrem General: Yes normal to inspection, Yes capillary refill normal, Yes no clubbing, cyanosis or edema and Yes no pedal edema Psych Appearance: grossly normal and well kempt Speech and movement: Normal speech and movement present and Clear speech present Affect: normal affect Attitude: cooperative Thought process: Normal thought process present Thought content: Normal thought content present Insight: Good insight present (Psych) Judgement: Good judgement present (Psych) Assessment & Plan Assessment & Plan (1) SOB (shortness of breath): Code(s): R06.02 - Shortness of breath Category: Medical (2) Environmental allergies: Code(s): Z91.09 - Other allergy status, other than to drugs and biological substances Category: Medical (3) Personal history of tobacco use: Code(s): Z87.891 - Personal history of nicotine dependence Category: Social Hx Plan Sandy presents for pulmonary evaluation for worsening dyspnea, likely multifactorial with pulmonary and obesity/deconditioning etiologies. She is working towards weight loss. She has a PFT scheduled and will send for RAST to assess for an allergic component. PCP also ordered echo. Advised to continue Asmanex and albuterol MDI as she recently received these prescriptions. Will also add Flonase. Patient previously had imaging at [facility], will attempt to obtain chest CT images. At this time she reports bronchitic symptoms, will treat with doxycycline. She is aware to call if symptoms do not improve. All questions were answered and patient is in agreement of plan. Will follow up in 4-6 weeks or sooner if needed. Orders: Orders Resp Allergy Profile Region I Today Z91.09 - Other allergy status, other than to drugs and biological substances Immunoglobulin E Today Z91.09 - Other allergy status, other than to drugs and biological substances Complete Blood Count Auto Diff Today Z91.09 - Other allergy status, other than to drugs and biological substances Medications: New doxycycline hyclate 100 mg PO BID 14 caps 0RF fluticasone propionate 50 mcg/actuation (Flonase Allergy Relief) administer into each nostril 2 sprays intranasal DAILY 16 grams 2RF Coding Level of Care Code New Pt Level 4 (01595) Diagnoses SOB (shortness of breath) R06.02 Environmental allergies Z91.09 Personal history of tobacco use Z87.891
--- OUTSIDE RECORDS SUMMARY | 2024-12-14 09:23 | XMS_ITS | Clinical Summary ---
Author Organization [facility] it Address [address] [place] [address] Care Team Providers Care Sports Management Internship Name Role Phone Marisela Goodrich MD Primary Care Pr ovider Allergies Active Allergy Reactions Criticality Noted Date Comments Gabapentin Weakness 11/30/2010 Ketorolac 09/18/2020 Other Reaction(s): Hives/Urticaria Latex 04/24/2018 Other Reaction(s): Rash/Dermatitis Midazolam 02/19/2012 Stop breathing Medications Medication Sig Dispensed Refills Start Date End Date Status cholecalciferol (VITAMIN D-3) 50 mcg (2,000 unit) capsule Take 1 capsule (2,000 Units total) by mouth 1 (one) time each day. 11/07/2023 Active dulaglutide (Trulicity) 0.75 mg/0.5 mL pen injector injection Inject 0.75 mg into the skin once a week. 08/18/2023 Active pregabalin (LYRICA) 100 mg capsule Take 2 Capsules by mouth 2 times daily. 09/23/2023 Active fenofibrate (TRICOR) 145 mg tablet Take 1 tablet (145 mg total) by mouth 1 (one) time each day. 08/11/2023 Active ibuprofen (ADVIL,MOTRIN) 600 mg tablet Take 1 Tablet by mouth every 8 hours as needed for Pain. 07/30/2023 Active cyclobenzaprine (FLEXERIL) 10 mg tablet Take 1 Tablet by mouth 3 times daily as needed for Muscle spasms. Medication may cause drowsiness, do not drive/operate machinery while taking 07/30/2023 Active insulin glargine (Lantus Solostar U-100 Insulin) 100 unit/mL (3 mL) injection pen Inject 34 Units into the skin at bedtime. 07/02/2023 Active albuterol HFA (PROAIR HFA ; PROVENTIL HFA ; VENTOLIN HFA) 90 mcg/actuation inhaler Inhale 2 Puffs into the lungs every 4 hours as needed for Cough, Wheezing or Shortness of Breath. 06/20/2023 Active lisinopril (PRINIVIL,ZESTRIL) 40 mg tablet Take 1 tablet (40 mg total) by mouth 1 (one) time each day. 03/28/2023 Active insulin syringe-needle U-100 0.5 mL 31 gauge x 5/16 syringe Insulin Pen Needle (B-D ULTRAFINE III SHORT PEN) 31G X 8 MM Misc Use to inject insulin once nightly at bedtime 03/19/2023 Active risperiDONE (RisperDAL) 2 mg tablet Take 1 tablet (2 mg total) by mouth 1 (one) time each day. 02/26/2023 Active busPIRone (BUSPAR) 7.5 mg tablet Take 1 tablet (7.5 mg total) by mouth 2 (two) times a day. 02/26/[address] (ENTOCORT EC) 3 mg 24 hr capsule Take by mouth. 02/26/2023 Active blood-glucose meter kit glucose monitoring kit (FREESTYLE) monitoring kit Use to check sugar daily 01/28/2023 Active FREESTYLE LANCETS MISC Use to check bood sugar bid as needed 01/28/2023 Active ergocalciferol (VITAMIN D-2) 1,250 mcg (50,000 unit) capsule Take 1 Capsule by mouth once a week. 01/27/2023 Active cyanocobalamin (VITAMIN B-12) 1,000 mcg tablet Take 1 tablet (1,000 mcg total) by mouth 1 (one) time each day. 12/09/2022 Active cyanocobalamin (VITAMIN B-12) 1,000 mcg/mL injection Inject 1 mL into the muscle every 30 days. 10/07/2022 Active melatonin 3 mg tablet TAKE 1 OR 2 TABLETS BY MOUTH DAILY AT BEDTIME 10/09/2022 Active escitalopram (LEXAPRO) 10 mg tablet Take 1 tablet (10 mg total) by mouth 1 (one) time each day. Active syringe with needle, safety (BD Safety-Alvaro Detachable Needl) 3 mL 23 gauge x 1 syringe Inject 1 Syringe into the skin daily. 09/06/2022 Active promethazine (PHENERGAN) 6.25 mg/5 mL syrup TAKE 10-20 ML BY MOUTH EVERY 6 HOURS NEEDED (NAUSEA). 08/13/2021 Active naratriptan (AMERGE) 1 mg tablet Take 1 Tab by mouth daily as needed (migraine). May repeat in 4 hrs 02/18/2020 Active lacosamide (VIMPAT) 150 mg tablet tablet Take 1 Tab by mouth every morning. 02/18/2020 Active blood glucose control high,low (FreeStyle Control) solution Use to check machine weekly 12/19/2020 Active blood sugar diagnostic (FreeStyle Lite Strips) test strip Use to check blood sugar bid as needed 01/28/2023 Active Active Problems Problem Noted Date Diagnosed Date Anxiety 11/12/2024 Fibromyalgia 11/12/2024 Morbid obesity with BMI of 40.0-44.9, adult 10/18 Bipolar disorder 02/26/2023 Hyperlipidemia 02/26/2023 Poorly controlled diabetes mellitus 09/24/2022 Nocturnal hypoxemia 04/08/2022 Overview (11/12/2024): [facility] diagnostic polysomnogram 03/14/2022 weight 320; BMI 49. AHI 4. Average oxygen saturation 90% with oxygen lashaun 80%. Nocturnal hypoxemia without sleep apnea diagnosed. PLMD also noted. PLMD (periodic limb movement disorder) Mild episode of recurrent major depressive disor nash 03/28/2021 Migraine headache 03/28/2020 Overview (11/12/2024): Onset childhood age 9. C. difficile colitis 06/30/2019 Overview (11/12/2024): 04/03; 03/05 07/05; 01/2021; GI and ID involved; 8 wks po vanco; to start vanco with any abx tx Morbid obesity 05/21/2019 Functional abdominal pain syndrome 04/07/2019 Overview (11/12/2024): See note from Dr. Davenport 04/02/2019 Neural foraminal stenosis of lumbar spine 2015 Chronic diarrhea 06/19/2016 Overview (11/12/2024): Onset approximately age [age] years old. Colonoscopy 07/03/2016; microscopic inflammation with eosinophils. See note Dr. 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 Throat symptoms eventually were diagnosed as part of the epilepsy syndrome. Manometry 05/04 w/ weak esophagus common in reflux; reflux study borderline nl; +sx correlation; stay on PPI; Dr. Adams 10/13/18 EGD w/ Grade B esophagitis Immunizations Name Administration Dates Next Due Influenza Quadravalent, MDCK , 0.5ml, preservative free (Flucelvax) 6mo and older 09/22/2018 Influenza Quadravalent, MDCK , 0.5ml, with preservative (Flucelvax) 6mo and older 09/29/2017 Influenza trivalent, with pr eservative (Fluzone; Afluria) 6mo and older 08/15/2020,09/18/2016,07/27/2015,08/18,08/14/2012,09/13/2011,09/05/2010 Pfizer (ages 12 & older) Biv alent, COVID-19 08/26/2022 Pneumococcal polysaccharide 23 valent (Pneumovax 23) 2yo and older 02/15/2014 Tdap Tetanus diptheria acell ular pertussis (Boostrix; Adacel) 7yo and older 04/09/2010 Surgical History Surgery Date Site/Laterality Comments SECTION 2007 PROCEDURE: [place] DELIVERY ONLY; COMMENT: x 1 WISDOM TOOTH EXTRACTION age 14 PROCEDURE: HISTORICAL WISDOM TEETH EXTRACTION OTHER SURGICAL HISTORY age 5 PROCEDURE: [place] STRABISMUS RECESSION/RESCJ 1 HRZNTL MUSC TUBAL LIGATION 02/08/2013 PROCEDURE: HISTORICAL TUBAL LIGATION; COMMENT: laporoscopic tubal banding with falope rings OTHER SURGICAL HISTORY 2014 PROCEDURE: LAPAROSCOPY, APPENDECTOMY; COMMENT: Frantz Acuna TONSILLECTOMY 01/2016 PROCEDURE: HISTORICAL TONSILLECTOMY; COMMENT: Dr. Alcala COLONOSCOPY 07/03/2016 PROCEDURE: HISTORICAL COLONOSCOPY; COMMENT: Microscopic inflammation with eosinophils but not indicative of microscopic colitis. OTHER SURGICAL HISTORY 10/2016 PROCEDURE: NERVE STIMULATOR FOR TX NV; COMMENT: vagal nerve; Dr. Boyle CHOLECYSTECTOMY 11/2016 PROCEDURE: HISTORICAL CHOLECYSTECTOMY; COMMENT: Jessica Dietz, laparoscopic ABDOMINAL SURGERY 01/25/2019 PROCEDURE: HISTORICAL ABDOMINAL SURGERY; COMMENT: Fundoplication; Dr. Joshi COLONOSCOPY 06/2018 PROCEDURE: HISTORICAL COLONOSCOPY; COMMENT: [facility]; visually normal, biopsies negative for microscopic colitis. COLONOSCOPY 11/2017 PROCEDURE: HISTORICAL COLONOSCOPY; COMMENT: [facility]; random biopsies negative for microscopic colitis, one diminutive tubular adenoma in the sigmoid colon. ROBOTIC ASSISTED HYSTERECTOMY 12/20/2019 PROCEDURE: HISTORICAL ROBOTIC HYSTERECTOMY WITH OR WITHOUT BSO; COMMENT: [facility] total hysterectomy with bilateral salpingectomy UPPER GASTROINTESTINAL ENDOSCOPY 02/25/2012 PROCEDURE: [place] UPPER GI ENDOSCOPY PERFORMED; COMMENT: Normal on PPI rx. UPPER GASTROINTESTINAL ENDOSCOPY 12/15/2016 PROCEDURE: [place] [facility]PPER [facility]FOR[facility], biopsy of a normal-appearing EG junction was negative for Vasquez's esophagus. Medical History Medical History Date Comments Joint pain DX:Joint pain Asthma DX:Asthma; COMME NT: exercise induced; URI Depression DX:Depression; C OMMENT: as a teenager Anemia DX:Anemia Seizure (CMS/HCC) age 10 DX:Seizure (HC C); COMMENT: nocturnal complex partial; [facility]. Hensley [facility] IBS (irritable bowel syndrome) D X:IBS (irritable bowel syndrome); COMMENT: intermittent Obesity 05/01/2010 DX:Obesity Gastric reflux 05/01/2010 DX:Gastric reflu x Anxiety DX:Anxiety Fibromyalgia DX:Fibromyalgia Vitamin B12 deficiency 04/08/2016 DX:Vitami n B12 deficiency Chronic diarrhea 06/19/2016 DX:Chronic diar cynthia; COMMENT: Onset approximately age [age] years old. Migraine headache 03/28/2020 DX:Migraine sandra abel; COMMENT: Onset childhood age 9. Family History Medical History Relation Name Comments Colon cancer Father's side great uncle, d ied at about age 60 Arthritis Maternal Grandmother Arthritis Paternal Grandmother said to have RA Relation Name Status Comments Father Alive dm, depression Father's side Maternal Grandfather prostat e ca Maternal Grandmother Alive ca, marcelo ast lump, ovarian cyst, heart problem, thyroid dz, ID age unknown Mother Alive ovarian cyst Paternal Grandfather bi suzie r Paternal Grandmother Alive thyroid ca, arthritis, RA Son Nasir Alive Nasir; 2007; a utistic Social History Tobacco Use Types Packs/Day Years Used Date Smoking Tobacco: Every Day Cigarettes Last attempted to quit: 01/14/2019 Smokeless Tobacco: Never Alcohol Use Standard Drinks/Week Comments No 0 (1 standard drink = 0.6 oz pur e alcohol) Sex and Gender Information Value Date Recorded Sex Assigned at Not on file Gender Identity Not on file Sexual Orientation Not on file Obstetrics History Last Filed Vital Signs Vital Sign Reading Time Taken Comments Blood Pressure 139/89 02/26/2023 1:17 PM EDT Pulse 93 02/26/2023 3:00 PM EDT Temperature - - Respiratory Rate - - Oxygen Saturation - - Inhaled Oxygen Concentration - - Weight 161 kg (354 lb) 02/26/2023 1:17 PM EDT Height 172.7 cm (5' 8 ) 02/26/2023 1:17 PM EDT Body Mass Index 53.83 02/26/2023 1:17 PM EDT Plan of Treatment Health Maintenance Due Date Last Done Comments Diabetes: Annual Foot Exam 1994 Diabetes: Annual Retina Eye Exam 1994 Hepatitis B Vaccines (1 of 3 - 19+ 3-dose series) 2003 Pneumococcal Vaccine: Pediatrics (0 to 5 Years) and At-Risk Patients (6 to 64 Years) (2 of 2 - PCV) 02/15/2015 02/15/2014 Breast Cancer Screening 10/14/2019 10/14/2017 DTaP,Tdap,and Td Vaccines (2 - Td or Tdap) 04/09/2020 04/09/2010 Depression Screening 10/19/2022 HIV Screening 10/19/2022 Hepatitis C Screening 10/19/2022 Social Influencers of Health Screening 10/19/2022 Diabetes: Blood Sugar Control Test (HGBA1C) 07/30/2023 01/27/2023 Diabetes: Annual Urine Albumin-Creatinine Ratio (uACR) 01/28/2024 01/27/2023 Diabetes: Annual GFR (Glomerular Filtration Rate) 02/27/2024 02/26/2023 Hypertension/CHF/CAD Annual BMP Blood Test 02/27/2024 02/26/2023 COVID-19 Vaccine ( season) 2024 08/26/2022, 10/19/2021, 04/07/2021, Additional history exists Influenza Vaccine (#1) 2024 , 09/22/2018, 09/29/2017, Additional history exists Colorectal Cancer Screening: Colonoscopy 01/17/2026 01/17/2021 Cholesterol Screening (Lipid Panel) 01/28/2028 01/27/2023 HIB Vaccines Aged Out No longer eligi ble based on patient's age to complete this topic HPV Vaccines Aged Out No longer eligi ble based on patient's age to complete this topic Hepatitis A Vaccines Aged Out No long er eligible based on patient's age to complete this topic IPV Vaccines Aged Out No longer eligi ble based on patient's age to complete this topic MMR Vaccines Aged Out No longer eligi ble based on patient's age to complete this topic Meningococcal ACWY Vaccine Aged Out N o longer eligible based on patient's age to complete this topic RSV Immunization Patients Under 20 months Aged Out No longer eligible based on patient's age to complete this topic Varicella Vaccines Aged Out No longer eligible based on patient's age to complete this topic Procedures Procedure Name Priority Date/Time Associated Diagnosis Comments HM ANNUAL BMP BLOOD TEST Routine 02/26/2023 HM URINE ALBUMIN CREATININE RATIO Routine 01/27/2023 HEMOGLOBIN A1C Routine 01/27/2023 LIPID PANEL Routine 01/27/2023 COLONOSCOPY Routine 01/17/2021 DX MAMMO INCL CAD BI Routine 10/14/2017 10:00 AM EST Unspecified lump in unspecified breast from Last 3 Months or Most Recently Relevant to Health Maintenance Results * Annual BMP Blood Test (02/26/2023) Pathologist [facility] Annual BMP Blood Test abstracted Historical Provider [facility] * Urine Albumin Creatinine Ratio (01/27/2023) [facility] Urine Albumin Creatinine Ratio abstracted [facility] * (ABNORMAL) Hemoglobin A1c (01/27/2023) [facility] Hemoglobin A1C 8.4(A) 6.5 % Blood Venous blood specimen / Unknown Historical Provider LAB BLOOD ORDERAB LES * (ABNORMAL) Lipid panel (01/27/2023) [facility] LDL/HDL Ratio 5(A) 0 - 4 Triglycerides 509(A) 0 - 150 mg/dL Cholesterol 173 0 - 200 mg/dL HDL 36(A) 40 mg/dL Blood Venous blood specimen / Unknown Historical Provider LAB BLOOD ORDERAB LES * Colonoscopy (01/17/2021) Pathologist [facility] Colonoscopy no interpretation , abstracted Anatomical Region Laterality Modality Other Historical Provider [facility] * DX MAMMO INCL CAD BI (10/14/2017 10:00 AM EST) Anatomical Region Laterality Modality Mammography 09/29/2017 1:35 PM EST Narrative 10/14/2017 4:22 PM EST This is a summary report. The complete report is available in the patient's medical record. If you cannot access the medical record, please contact the sending organization for a detailed fax or copy. Bilateral mammogram. 31 years old female complaining on pain in the left breast laterally to the nipple. No family history for breast cancer. Routine images of both breast were obtained with a marker placed over the area of palpable abnormality on the left. Additional spot compression views of the left breast in CC and MLO projections as well as straight lateral view were obtained. Breast tissue is of mixed density. No focal abnormalities are identified in the vicinity of the marker. Limited ultrasound of the left breast. Patient pointed the area of palpable abnormality at 6:00 in the anterior left breast. This area was evaluated. No cystic or solid masses or acoustic shadowing identified. Also the area marked during the palm mammographic exam was evaluated. No cystic or solid masses or acoustic shadowing identified. Conclusions: No mammographic evidence for malignancy. No focal abnormalities in the area of concern pointed by the patient. Management of palpable abnormality as well as decision about surgical consultation and biopsy should be based on clinical grounds. Follow-up mammogram is recommended at the age of 40 if not otherwise clinically indicated. BI-RADS 1, negative. Procedure Note Emma Mooney MD - 12/19/2023 This is a summary report. The complete report is available in thepatient's medical record. If you cannot access the medical record, pleasecontact the sending organization for a detailed fax or copy. Bilateral mammogram. 31 years old female complaining on pain in the left breast laterally tothe nipple. No family history for breast cancer. Routine images of both breast were obtained with a marker placed over thearea of palpable abnormality on the left. Additional spot compressionviews of the left breast in CC and MLO projections as well as straightlateral view were obtained. Breast tissue is of mixed density. No focalabnormalities are identified in the vicinity of the marker. Limited ultrasound of the left breast. Patient pointed the area ofpalpable abnormality at 6:00 in the anterior left breast. This area wasevaluated. No cystic or solid masses or acoustic shadowing identified.Also the area marked during the palm mammographic exam was evaluated. Nocystic or solid masses or acoustic shadowing identified. Conclusions: No mammographic evidence for malignancy. No focalabnormalities in the area of concern pointed by the patient. Management ofpalpable abnormality as well as decision about surgical consultation andbiopsy should be based on clinical grounds. Follow-up mammogram isrecommended at the age of 40 if not otherwise clinically indicated. BI-RADS 1, negative. Marli DEL CASTILLO IMG BI PROCEDURES from Last 3 Months or Most Recently Relevant to Health Maintenance Care Teams Sports Management Internship Relationship Specialty Start Date End Date Marisela Goodrich MD PCP - General 10/07/22
--- OUTSIDE RECORDS SUMMARY | 2024-12-14 09:23 | XMS_ITS | Clinical Summary ---
Author Organization [facility] Facility Address [address] [address] Care Team Providers Care Lan Analyst Name Role Phone Tom White MD Primary Care Provider Social History Tobacco Use Types Packs/Day Years Used Date Smoking Tobacco: Never Assessed Comments Unknown Sex and Gender Information Value Date Recorded Sex Assigned at Not on file Legal Sex Female 2:30 PM EDT Gender Identity Not on file Sexual Orientation Not on file Plan of Treatment Health Maintenance Due Date Last Done Comments Hepatitis B Vaccine (1 of 3 - 19+ 3-dose series) 2003 Diabetes: Ophthalmology Exam 02/16/2023 Diabetes: Pedal Pulse Checked 02/16/2023 Diabetes: Sensory Foot Exam 02/16/2023 Diabetes: Visual Foot Exam 02/16/2023 Diabetes: Hemoglobin A1C 04/29/2023 01/27/2023 Pneumococcal Vaccine: Pediat rics (0 to 5 Years) and At-Risk Patients (6 to 64 Years) (3 of 3 - PCV) 08/26/2023 08/26/2022, 04/10/2017, 02/15/2014 Influenza Vaccine (#1) 2024 09/22/2018, 2016 Insurance [place]ID [place] Care Teams Lan Analyst Relationship Specialty Start Date End Date Tom White MD [address] [place] [address] PCP - [facility] 02/14/23
== END 2024-12-14 09:45 | disposition home or self-care (01) ==
PROVIDERS: PCP Nurse Practitioner Family; Referring Provider Nurse Practitioner Family; Visit Provider Nurse Practitioner Family
DX: R06.02 Shortness of breath (principal); Z91.09 Other allergy status, other than to drugs and biological substances; Z87.891 Personal history of nicotine dependence
CPT/HCPCS: 99204

== ENCOUNTER → 2024-12-14 09:00 | Outpatient (BNVA) | payer OTHER, SELFPAY | PROVIDERS: PCP Nurse Practitioner Family; Referring Provider Nurse Practitioner Family; Visit Provider Nurse Practitioner Family | DX: R06.02 Shortness of breath (principal); E66.9 Obesity, unspecified; G47.33 Obstructive sleep apnea (adult) (pediatric); Z91.09 Other allergy status, other than to drugs and biological substances; Z99.89 Dependence on other enabling machines and devices; Z87.891 Personal history of nicotine dependence | CPT/HCPCS: 99202 ==

== ENCOUNTER 2024-12-14 09:54 | Outpatient (REF) | payer OTHER, SELFPAY ==
--- OUTSIDE RECORDS SUMMARY | 2024-12-14 10:32 | XMS_ITS | Encounter Summary ---
Author Organization [facility] Address [address] [place] [address] Care Team Providers Care Engineering Document Control Clerk Name Role Phone Alexandria Peñaloza MD Primary Care Provider Unava Kristy Rush MD Primary Care Provider Un available Alexandria Peñaloza MD Primary Care Provider Unava ilTom Toscano Primary Care Provider [phone] Marisela Goodrich MD Primary Care Provider + Encounter Details Date Type Department Care Team Description 10/21/2016 Web Page Developer Report Medical Records [address] [place] [id number] Ronnie Boyle MD Social History Tobacco Use Types Packs/Day Years Used Date Smoking Tobacco: Former Cigarettes 0.3 7 Q uit: 03/04/2013 Smokeless Tobacco: Never Alcohol Use Standard Drinks/Week Comments No 0 (1 standard drink = 0.6 oz pur e alcohol) Sex Assigned at Date Recorded Female 07/19/2020 10:28 AM EDT Job Start Date Occupation Industry Not on file Not on file Not on file documented as of this encounter Plan of Treatment Not on file documented as of this encounter Visit Diagnoses Not on filedocumented in this encounter Care Teams Engineering Document Control Clerk Relationship Specialty Start Date End Date Alexnadria Peñaloza MD PCP - General 03/26/10 07/24/20 Kristy Castrejon MD PCP - General Internal Medicine 07/25/20 1 Alexandria Peñaloza MD PCP - General Internal Medicine 11/21/20 05/13/22 Tom White [address] [place] [address] PCP - General Internal Medicine 05/14/22 10/06/22 Marisela Goodrich MD [address] [place] [address] PCP - General Internal Medicine 10/07/22 documented as of this encounter
--- OUTSIDE RECORDS SUMMARY | 2024-12-14 10:32 | XMS_ITS | Encounter Summary ---
Author Organization [facility] Address [address] [place] [address] Care Team Providers Care Control Room Operator Name Role Phone Alexandrai Peñaloza MD Primary Care Provider Unava Kristy Rush MD Primary Care Provider Un available Alexandria Peñaloza MD Primary Care Provider Unava Tom Booker Primary Care Provider [phone] Marisela Goodrich MD Primary Care Provider + Encounter Details Date Type Department Care Team Description 12/17/2018 Orders Only Medical Records [address] [place] [id number] Kristy Castrejon MD Social History Tobacco Use Types Packs/Day Years Used Date Smoking Tobacco: Every Day Cigarettes 0.3 7 Last attempted to quit: 03/04/2013 Smokeless Tobacco: Never Alcohol Use Standard Drinks/Week Comments No 0 (1 standard drink = 0.6 oz pur e alcohol) Sex Assigned at Date Recorded Female 07/19/2020 10:28 AM EDT Job Start Date Occupation Industry Not on file Not on file Not on file documented as of this encounter Plan of Treatment Not on file documented as of this encounter Procedures Procedure Name Priority Date/Time Associated Diagnosis Comments OUTSIDE SLEEP STUDY Routine 12/14/2018 documented in this encounter Results * OUTSIDE SLEEP STUDY (12/14/2018) Kristy Castrejon MD PULMONOLOGY documented in this encounter Visit Diagnoses Not on filedocumented in this encounter Care Teams Control Room Operator Relationship Specialty Start Date End Date Alexandria Peñaloza MD PCP - General 03/26/10 07/24/20 Kristy Castrejon MD PCP - General Internal Medicine 07/25/20 1 Alexandria Peñaloza MD PCP - General Internal Medicine 11/21/20 05/13/22 Tom White [address] [place], [place] [id number] PCP - General Internal Medicine 05/14/22 10/06/22 Marisela Goodrich MD [address] [place] [address] PCP - General Internal Medicine 10/07/22 documented as of this encounter
--- OUTSIDE RECORDS SUMMARY | 2024-12-14 10:32 | XMS_ITS | Encounter Summary ---
Author Organization [facility] Address [address] [place] [address] Care Team Providers Care Home Health Travel Ot Name Role Phone Alexandria Peñaloza MD Primary Care Provider Unava Kristy Rush MD Primary Care Provider Un available Alexandria Peñaloza MD Primary Care Provider Unava ilTom Toscano Primary Care Provider [phone] Marisela Goodrich MD Primary Care Provider + Encounter Details Date Type Department Care Team Description 05/23/2016 [facility] Medical Records [address] [place] [id number] Sam Tinsley MD Social History Tobacco Use Types Packs/Day Years Used Date Smoking Tobacco: Every Day Cigarettes 0.3 7 Last attempted to quit: 01/14/2019 Smokeless Tobacco: Never Comments:Patch Alcohol Use Standard Drinks/Week Comments No 0 [...] on filedocumented in this encounter Care Teams Home Health Travel Ot Relationship Specialty Start Date End Date Alexandria Peñaloza MD PCP - General 03/26/10 07/24/20 Kristy Castrejon MD PCP - General Internal Medicine 07/25/20 1 Alexandria Peñaloza MD PCP - General Internal Medicine 11/21/20 05/13/22 Tom White [address] [place] [address] PCP - General Internal Medicine 05/14/22 10/06/22 Marisela Goodrich MD [address] [place] [address] PCP - General Internal Medicine 10/07/22 documented as of this encounter
--- OUTSIDE RECORDS SUMMARY | 2024-12-14 10:32 | XMS_ITS | Encounter Summary ---
Author Organization [facility] Address [address] [place] [address] Care Team Providers Care Medical Scientist Name Role Phone Alexandria Peñaloza MD Primary Care Provider Unava Kristy Rush MD Primary Care Provider Un available Alexandria Peñaloza MD Primary Care Provider Unava ilable Tom White Primary Care Provider [phone] Marisela Goodrich MD Primary Care Provider + Reason for Referral * EXTERNAL (Urgent) - Authorized/Booked Specialty Diagnoses / Procedures Referred By Contac t Referred To Contact Neurosurgery Procedures REFERRAL TO NEUROSURGERY Alexandria Peñaloza MD [address] [place] [address] Callie Mahmood [address] [place] [id number] Referral ID Status Reason Start Date Expiration Date V isits Requested Visits Authorized SEE NOTE Authorized/B ooked 10/16/2016 01/15/2017 1 1 Reason for Visit * Reason Onset Date Comments Patient Relations Specialist Feedback 10/16/2016 Dr. Avalos Encounter Details Date Type Department Care Team Description 10/16/2016 Telephone Medicine/Pediatrics - [address] [phone] Alexandria Peñaloza MD Patient Relations Specialist Feedback (Dr. Avalos) Social History Tobacco Use Types Packs/Day Years [...] on file documented as of this encounter Miscellaneous Notes * Telephone Encounter - Seema Dailey - 10/16/2016 8:55 AM EST Please review this patients new referral request. The referral has been pended. Please complete thefollowing: If approved> sign order If denied>please give instructions and route to your practice nursing pool. Practice nurse should inform referrals and the patient if denied. * Telephone Encounter - Johanny Esposito - 10/16/2016 8:44 AM EST What insurance does the patient have today? - [id number] Effective 08/17/09: [employer] will not retro referral requests over 90 days. If request is for this please instruct patient to call the 800# on their insurance card to appeal. Do not submit a request. Referrals cannot be processed if the insurance is not accurate. If the insurance listed above in red is NO BILLING INFORMATION FOUND FOR THIS ENCOUTNER The patients correct insurance must be obtained and registered in [facility] or their referral can not be processed. Is this a retro request? NO. If yes for what date of service do you need the retro referral? Who is calling to request this referral? alex If the caller is not the patient, what is their name? N/A Ask the patient WHO referred them to this specialty: Not an initial visit; it is for follow up/continuation of care. Patients PCP is CM FIRST and LAST NAME of SPECIALIST PATIENT is seeing: callie mahmood - [phone] What specialty is this? Neuro surgery DIAGNOSIS Patient is being seen for (Not a body part or a procedure): epilepsy v and a replacement Have you seen this SPECIALIST for this PROBLEM/DX before?NO If YES, when: Have you checked REVIEW or the APPT DESK to see if this referral has already been done or has visits left? YES Is this visit:Initial Visit Address of Specialist: [address] [place] [address] [place] [address] Phone # of Specialist:[phone] Fax #: (if applicable):[phone] Does patient have an appointment scheduled?: YES Date of appointment- (including a retro-request): 10/21/2016 Is this appointment related to: Surgery documented in this encounter Plan of Treatment Not on file documented as of this encounter Visit Diagnoses Not on filedocumented in this encounter Care Teams Medical Scientist Relationship Specialty Start Date End Date Alexandria Peñaloza MD PCP - General 03/26/10 07/24/20 Kristy Castrejon MD PCP - General Internal Medicine 07/25/20 1 Alexandria Peñaloza MD PCP - General Internal Medicine 11/21/20 05/13/22 Tom White [address] [place] [address] PCP - General Internal Medicine 05/14/22 10/06/22 Marisela Goodrich MD [address] [place] [address] PCP - General Internal Medicine 10/07/22 documented as of this encounter
--- OUTSIDE RECORDS SUMMARY | 2024-12-14 10:32 | XMS_ITS | Encounter Summary ---
Author Organization [facility] Address [address] [place] [address] Care Team Providers Care Substation Operator Conversion Name Role Phone Alexandria Peñaloza MD Primary Care Provider UnaKristy Negro MD Primary Care Provider Un available Alexandria Peñaloza MD Primary Care Provider Unava Tom Booker Primary Care Provider [phone] Marisela Goodrich MD Primary Care Provider + Encounter Details Date Type Department Care Team Description 04/25/2016 [facility] Medical Records [address] [place] [address] Abstract, Provider Pneumonia of left lower lobe due to infectious organism Social History Tobacco Use Types Packs/Day Years [...] Procedure Name Priority Date/Time Associated Diagnosis Comments CHEST X-RAY, TWO VIEWS Routine 03/10/2016 Pneumonia of left lower lobe due to infectious organism documented in this encounter Results * CHEST X-RAY, TWO VIEWS (03/10/2016) Alexandria Peñaloza MD RADIOLOGY documented in this encounter Visit Diagnoses Diagnosis Pneumonia of left lower lobe due to infectious organism documented in this encounter Care Teams Substation Operator Conversion Relationship Specialty Start Date End Date Alexandria Peñaloza MD PCP - General 03/26/10 07/24/20 Kristy Castrejon MD PCP - General Internal Medicine 07/25/20 1 Alexandria Peñaloza MD PCP - General Internal Medicine 11/21/20 05/13/22 Tom White [address] [place], [place] [id number] PCP - General Internal Medicine 05/14/22 10/06/22 Marisela Goodrich MD [address] [place] [address] PCP - General Internal Medicine 10/07/22 documented as of this encounter
--- OUTSIDE RECORDS SUMMARY | 2024-12-14 10:32 | XMS_ITS | Encounter Summary ---
Author Organization [facility] Address [address] [place] [address] Care Team Providers Care Hi Lift Operator Name Role Phone Alexandria Peñaloza MD Primary Care Provider Unava Kristy Rush MD Primary Care Provider Un available Alexandria Peñaloza MD Primary Care Provider Unava Tom Booker Primary Care Provider [phone] Marisela Goodrich MD Primary Care Provider + Encounter Details Date Type Department Care Team Description 01/25/2019 Hospital Medical Records [address] [place] [address] Reji Joshi MD Social History Tobacco Use Types Packs/Day [...] on filedocumented in this encounter Care Teams Hi Lift Operator Relationship Specialty Start Date End Date Alexandria Peñaloza MD PCP - General 03/26/10 07/24/20 Kristy Castrejon MD PCP - General Internal Medicine 07/25/20 1 Alexandria Peñaloza MD PCP - General Internal Medicine 11/21/20 05/13/22 Tom White [address] [place] [address] PCP - General Internal Medicine 05/14/22 10/06/22 Marisela Goodrich MD [address] [place] [address] PCP - General Internal Medicine 10/07/22 documented as of this encounter
--- OUTSIDE RECORDS SUMMARY | 2024-12-14 10:32 | XMS_ITS | Encounter Summary ---
Author Organization [facility] Address [address] [place] [address] Care Team Providers Care Av Specialist Name Role Phone Alexandria Peñaloza MD Primary Care Provider Unava Kristy Rush MD Primary Care Provider Un available Alexandria Peñaloza MD Primary Care Provider Unava Tom Booker Primary Care Provider [phone] Marisela Goodrich MD Primary Care Provider + Encounter Details Date Type Department Care Team Description 06/16/2020 Aircraft Quality Control Inspector Report Medical Records [address] [place] [address] Reji Hensley [address] [place] [address] Social History Tobacco Use Types Packs/Day Years [...] on filedocumented in this encounter Care Teams Av Specialist Relationship Specialty Start Date End Date Alexandria Peñaloza MD PCP - General 03/26/10 07/24/20 Kristy Castrejon MD PCP - General Internal Medicine 07/25/20 1 Alexandria Peñaloza MD PCP - General Internal Medicine 11/21/20 05/13/22 Tom White [address] [place] [address] PCP - General Internal Medicine 05/14/22 10/06/22 Marisela Goodrich MD [address] [place] [address] PCP - General Internal Medicine 10/07/22 documented as of this encounter
--- OUTSIDE RECORDS SUMMARY | 2024-12-14 10:32 | XMS_ITS | Encounter Summary ---
Author Organization [facility] Address [address] [place] [address] Care Team Providers Care Guitar Instructor Name Role Phone Alexandria Peñaloza MD Primary Care Provider Unava Kristy Rush MD Primary Care Provider Un available Alexandria Peñaloza MD Primary Care Provider Unava Tom Booker Primary Care Provider [phone] Marisela Goodrich MD Primary Care Provider + Encounter Details Date Type Department Care Team Description 09/18/2015 Pt. Non Urgent Medic al Question Medicine/Pediatrics - [address] [phone] Milagros Ríos FNP Social History Tobacco Use Types Packs/Day Years [...] on file documented as of this encounter Progress Notes * Gale Mendoza L.P.NMendoza - 09/19/2015 8:35 AM ESTFrom: Sandy Santana To: THOMAS Thapa Sent: 09/18/2015 10:50 PM EST Subject: Regards to a eye appointment I had Sal Tejeda, I had a eye appointment last Friday. My eyes are so chronically dry. He looked in them and I'm producing no tears. He said with the onset of this, and some symptoms I didn't really think much abouthe wanted me checked for diabetes to rule it out. If I come up with no diabetes, he thinks I could have some auto immune thing that attacks mucous membranes in your body (eyes mouth joins) anyways hewanted me to tell you and he should of faxed something to you. :) I'll go do my blood work before my next appointment with you:) Sandy documented in this encounter Plan of Treatment Not on file documented as of this encounter Visit Diagnoses Not on filedocumented in this encounter Care Teams Guitar Instructor Relationship Specialty Start Date End Date Alexandria Peñaloza MD PCP - General 03/26/10 07/24/20 Kristy Castrejon MD PCP - General Internal Medicine 07/25/20 1 Alexandria Peñaloza MD PCP - General Internal Medicine 11/21/20 05/13/22 Tom White [address] [place] [address] PCP - General Internal Medicine 05/14/22 10/06/22 Marisela Goodrich MD [address] [place] [address] PCP - General Internal Medicine 10/07/22 documented as of this encounter
--- OUTSIDE RECORDS SUMMARY | 2024-12-14 10:32 | XMS_ITS | Encounter Summary ---
Author Organization [facility] Address [address] [place] [address] Care Team Providers Care Fabrication Engineer Name Role Phone Kristy Castrejon MD Primary Care Provider Un available Alexandria Peñaloza MD Primary Care Provider Soniava Tom Booker Primary Care Provider [phone] Marisela Goodrich MD Primary Care Provider + Reason for Visit * Reason Onset Date Comments Appointment-Internal Referral 08/14/2020 De Encounter Details Date Type Department Care Team Description 08/14/2020 Telephone Dermatology - [address] [phone] Kristy Castrejon MD Appointment-Internal Referral (Derm) Social History Tobacco Use Types Packs/Day Years [...] file Not on file Not on file COVID-19 Exposure Response Date Recorded In the last month, have you been in contact with someone who was confirmed or suspected to have Coronavirus / COVID-19? No / Unsure 07/28/2020 4:22 PM EDT documented as of this encounter Miscellaneous Notes * Telephone Encounter - Mandy Bledsoe - 08/14/2020 2:39 PM EDT Referral to Derm: FYI to referring. No response from patient. All attempts exhausted to reach patient to book. documented in this encounter Plan of Treatment Not on file documented as of this encounter Visit Diagnoses Not on filedocumented in this encounter Care Teams Fabrication Engineer Relationship Specialty Start Date End Date Kristy Castrejon MD PCP - General Internal Medicine 07/25/20 1 Alexandria Peñaloza MD PCP - General Internal Medicine 11/21/20 05/13/22 Tom White [address] [place] [address] PCP - General Internal Medicine 05/14/22 10/06/22 Marisela Goodrich MD [address] [place] [address] PCP - General Internal Medicine 10/07/22 documented as of this encounter
--- OUTSIDE RECORDS SUMMARY | 2024-12-14 10:32 | XMS_ITS | Encounter Summary ---
Author Organization [facility] Address [address] [place] [address] Care Team Providers Care Dispatcher Electric Power Name Role Phone Alexandria Peñaloza MD Primary Care Provider Unava Kristy Rush MD Primary Care Provider Un available Alexandria Peñaloza MD Primary Care Provider Unava Tom Booker Primary Care Provider [phone] Marisela Goodrich MD Primary Care Provider + Encounter Details Date Type Department Care Team Description 05/23/2016 Hospital Medical Records [address] [place] [address] India Yates MD Social History Tobacco Use Types Packs/Day [...] on filedocumented in this encounter Care Teams Dispatcher Electric Power Relationship Specialty Start Date End Date Alexandria Peñaloza MD PCP - General 03/26/10 07/24/20 Kristy Castrejon MD PCP - General Internal Medicine 07/25/20 1 Alexandria Peñaloza MD PCP - General Internal Medicine 11/21/20 05/13/22 Tom White [address] [place] [address] PCP - General Internal Medicine 05/14/22 10/06/22 Marisela Goodrich MD [address] [place] [address] PCP - General Internal Medicine 10/07/22 documented as of this encounter
--- OUTSIDE RECORDS SUMMARY | 2024-12-14 10:32 | XMS_ITS | Encounter Summary ---
Author Organization [facility] Address [address] [place] [address] Care Team Providers Care Car Electronics Installer Name Role Phone Alexandria Peñaloza MD Primary Care Provider Unava Kristy Rush MD Primary Care Provider Un available Alexandria Peñaloza MD Primary Care Provider Unava Tom Booker Primary Care Provider [phone] Marisela Goodrich MD Primary Care Provider + Encounter Details Date Type Department Care Team Description 07/22/2018 Hospital Medical Records [address] [place] [address] Reji Joshi MD Social History Tobacco Use [...] on filedocumented in this encounter Care Teams Car Electronics Installer Relationship Specialty Start Date End Date Alexandria Peñaloza MD PCP - General 03/26/10 07/24/20 Kristy Castrejon MD PCP - General Internal Medicine 07/25/20 1 Alexandria Peñaloza MD PCP - General Internal Medicine 11/21/20 05/13/22 Tom White [address] [place] [address] PCP - General Internal Medicine 05/14/22 10/06/22 Marisela Goodrich MD [address] [place] [address] PCP - General Internal Medicine 10/07/22 documented as of this encounter
--- OUTSIDE RECORDS SUMMARY | 2024-12-14 10:32 | XMS_ITS | Encounter Summary ---
Author Organization [facility] Address [address] [place] [address] Care Team Providers Care Oil Well Fishing Tool Technician Name Role Phone Alexandria Peñaloza MD Primary Care Provider Unava Kristy Rush MD Primary Care Provider Un available Alexandria Peñaloza MD Primary Care Provider Unava Tom Booker Primary Care Provider [phone] Marisela Goodrich MD Primary Care Provider + Encounter Details Date Type Department Care Team Description 04/10/2016 MATRIX DRIER TENDER/Mass[employer] Report Medical Records [address] [place] [address] Abstract, Provider Social History Tobacco Use Types Packs/Day [...] on filedocumented in this encounter Care Teams Oil Well Fishing Tool Technician Relationship Specialty Start Date End Date Alexandria Peñaloza MD PCP - General 03/26/10 07/24/20 Kristy Castrejon MD PCP - General Internal Medicine 07/25/20 1 Alexandria Peñaloza MD PCP - General Internal Medicine 11/21/20 05/13/22 Tom Wihte [address] [place] [address] PCP - General Internal Medicine 05/14/22 10/06/22 Marisela Goodrich MD [address] [place] [address] PCP - General Internal Medicine 10/07/22 documented as of this encounter
--- OUTSIDE RECORDS SUMMARY | 2024-12-14 10:32 | XMS_ITS | Encounter Summary ---
Author Organization [facility] Address [address] [place] [address] Care Team Providers Care Milk Route Supervisor Name Role Phone Alexandria Peñaloza MD Primary Care Provider Unava Kristy Rush MD Primary Care Provider Un available Alexandria Peñaloza MD Primary Care Provider Unava ilTom Toscano Primary Care Provider [phone] Marisela Goodrich MD Primary Care Provider + Encounter Details Date Type Department Care Team Description 01/12/2016 Taxi Driver Supervisor Report Medical Records [address] [place] [address] Yesenia Alcala Social History Tobacco Use Types Packs/Day Years [...] on filedocumented in this encounter Care Teams Milk Route Supervisor Relationship Specialty Start Date End Date Alexandria Peñaloza MD PCP - General 03/26/10 07/24/20 Kristy Castrejon MD PCP - General Internal Medicine 07/25/20 1 Alexandria Peñaloza MD PCP - General Internal Medicine 11/21/20 05/13/22 Tom White [address] [place] [address] PCP - General Internal Medicine 05/14/22 10/06/22 Marisela Goodrich MD [address] [place] [address] PCP - General Internal Medicine 10/07/22 documented as of this encounter
--- OUTSIDE RECORDS SUMMARY | 2024-12-14 10:32 | XMS_ITS | Encounter Summary ---
Author Organization [facility] Address [address] [place] [address] Care Team Providers Care Dinkey Engine Firer/Fireman Name Role Phone Alexandria Peñaloza MD Primary Care Provider Unava Kristy Rush MD Primary Care Provider Un available Alexandria Peñaloza MD Primary Care Provider Unava ilTom Toscano Primary Care Provider [phone] Marisela Goodrich MD Primary Care Provider + Encounter Details Date Type Department Care Team Description 01/19/2016 Pt. Non Urgent Medic al Question Medicine/Pediatrics - [address] [phone] Sandy Villa PA-C Social History Tobacco Use Types Packs/Day Years [...] this encounter Progress Notes * Gale Mendoza L.P.N. - 01/19/2016 10:04 AM ESTFrom: Sandy Santana To: Sanyd Villa PA-C Sent: 01/19/2016 9:07 AM EST Subject: Question I have two questions. How come in the past my BOBY is positive? Also what is making me have a hard time over the years with my vitamin D documented in this encounter Plan of Treatment Not on file documented as of this encounter Visit Diagnoses Not on filedocumented in this encounter Care Teams Dinkey Engine Firer/Fireman Relationship Specialty Start Date End Date Alexandria Peñaloza MD PCP - General 03/26/10 07/24/20 Kristy Castrejon MD PCP - General Internal Medicine 07/25/20 1 Alexandria Peñaloza MD PCP - General Internal Medicine 11/21/20 05/13/22 Tom White [address] [place] [address] PCP - General Internal Medicine 05/14/22 10/06/22 Marisela Goodrich MD [address] [place] [address] PCP - General Internal Medicine 10/07/22 documented as of this encounter
--- OUTSIDE RECORDS SUMMARY | 2024-12-14 10:33 | XMS_ITS | Encounter Summary ---
Author Organization [facility] Address [address] [place] [address] Care Team Providers Care Relay Operator Name Role Phone Alexandria Peñaloza MD Primary Care Provider UnaKristy Negro MD Primary Care Provider Un available Alexandria Peñaloza MD Primary Care Provider Unava Tom Booker Primary Care Provider [phone] Marisela Goodrich MD Primary Care Provider + Encounter Details Date Type Department Care Team Description 02/15/2020 Walk In Clinic Visit Medical Records [address] [place] [address] Reji Hensley [address] [place] [address] Social History Tobacco Use Types Packs/Day Years [...] on filedocumented in this encounter Care Teams Relay Operator Relationship Specialty Start Date End Date Alexandria Peñaloza MD PCP - General 03/26/10 07/24/20 Kristy Castrejon MD PCP - General Internal Medicine 07/25/20 1 Alexandria Peñaloza MD PCP - General Internal Medicine 11/21/20 05/13/22 Tom White [address] [place] [address] PCP - General Internal Medicine 05/14/22 10/06/22 Marisela Goodrich MD [address] [place] [address] PCP - General Internal Medicine 10/07/22 documented as of this encounter
--- OUTSIDE RECORDS SUMMARY | 2024-12-14 10:33 | XMS_ITS | Encounter Summary ---
Author Organization [facility] Address [address] [place] [address] Care Team Providers Care Bus Cleaner Name Role Phone Alexandria Peñaloza MD Primary Care Provider Unava Kristy Rush MD Primary Care Provider Un available Alexandria Peñaloza MD Primary Care Provider Unava Tom Booker Primary Care Provider [phone] Marisela Goodrich MD Primary Care Provider + Encounter Details Date Type Department Care Team Description 06/24/2011 Designer Writer Report Medical Records [address] [place] [address] Sam Tinsley MD Social History Tobacco Use Types Packs/Day Years Used Date Smoking Tobacco: Every Day Cigarettes 0.2 7 Smokeless Tobacco: Never Comments:4 cigs a day Alcohol Use Standard Drinks/Week Comments No 0 [...] on filedocumented in this encounter Care Teams Bus Cleaner Relationship Specialty Start Date End Date Alexandria Peñaloza MD PCP - General 03/26/10 07/24/20 Kristy Castrejon MD PCP - General Internal Medicine 07/25/20 1 Alexandria Peñaloza MD PCP - General Internal Medicine 11/21/20 05/13/22 Tom White [address] [place] [address] PCP - General Internal Medicine 05/14/22 10/06/22 Marisela Goodrich MD [address] [place] [address] PCP - General Internal Medicine 10/07/22 documented as of this encounter
--- OUTSIDE RECORDS SUMMARY | 2024-12-14 10:33 | XMS_ITS | Encounter Summary ---
Author Organization [facility] Address [address] [place] [address] Care Team Providers Care Child Development Associate Teacher Name Role Phone Alexandria Peñaloza MD Primary Care Provider UnaKristy Negro MD Primary Care Provider Un available Alexandria Peñaloza MD Primary Care Provider Soniava Tom Booker Primary Care Provider [phone] Marisela Goodrich MD Primary Care Provider + Encounter Details Date Type Department Care Team Description 10/02/2011 Oracle Sql Developer Report Medical Records [address] [place] [address] Mushtaq Cerda MD Social History Tobacco Use Types Packs/Day [...] on filedocumented in this encounter Care Teams Child Development Associate Teacher Relationship Specialty Start Date End Date Alexandria Peñaloza MD PCP - General 03/26/10 07/24/20 Kristy Castrejon MD PCP - General Internal Medicine 07/25/20 1 Alexandria Peñaloza MD PCP - General Internal Medicine 11/21/20 05/13/22 Tom White [address] [place] [address] PCP - General Internal Medicine 05/14/22 10/06/22 Marisela Goodrich MD [address] [place] [address] PCP - General Internal Medicine 10/07/22 documented as of this encounter
--- OUTSIDE RECORDS SUMMARY | 2024-12-14 10:33 | XMS_ITS | Encounter Summary ---
Author Organization [facility] Address [address] [place] [address] Care Team Providers Care Retail Client Manager Name Role Phone Alexandria Peñaloza MD Primary Care Provider Unava Kristy Rush MD Primary Care Provider Un available Alexandria Peñaloza MD Primary Care Provider Unava Tom Booker Primary Care Provider [phone] Marisela Goodrich MD Primary Care Provider + Encounter Details Date Type Department Care Team Description 04/09/2018 Hospital Medical Records [address] [place] [address] Ayesha Weaver MD Social History Tobacco Use Types Packs/Day [...] on filedocumented in this encounter Care Teams Retail Client Manager Relationship Specialty Start Date End Date Alexandria Peñaloza MD PCP - General 03/26/10 07/24/20 Kristy Castrejon MD PCP - General Internal Medicine 07/25/20 1 Alexandria Peñaloza MD PCP - General Internal Medicine 11/21/20 05/13/22 Tom White [address] [place] [address] PCP - General Internal Medicine 05/14/22 10/06/22 Marisela Goodrich MD [address] [place] [address] PCP - General Internal Medicine 10/07/22 documented as of this encounter
--- OUTSIDE RECORDS SUMMARY | 2024-12-14 10:33 | XMS_ITS | Encounter Summary ---
Author Organization [facility] Address [address] [place] [address] Care Team Providers Care Coremaker Supervisor Name Role Phone Tom White Primary Care Provider [phone] Marisela Goodrich MD Primary Care Provider + Reason for Visit * Reason Onset Date Comments Prior Authorization 06/26/2022 Encounter Details Date Type Department Care Team Description 06/26/2022 Telephone Medicine/Pediatrics - [address] [address] Tatum Thomas PA-C Prior Authorization Social History Tobacco Use Types Packs/Day Years [...] encounter Miscellaneous Notes * Telephone Encounter - Park Wynn M.A. - 06/27/2022 10:49 AM EDT Pregabalin approved till 06/27/2023 Pharmacy notified * Telephone Encounter - Park Wynn M.A. - 06/27/2022 9:17 AM EDT Prior auth done for continuation of therapy for pregabalin Dx code:Fibromyalgia ?? Past Rx tried and failed: Medication:gabapentin 100mg bid Date:07/23/2012 Duloxetine 30mg - 03/14/2021 Amitriptyline 50mg 06/30/2017-11/29/2017 ?? * Telephone Encounter - Calista Huynhmarj - 06/26/2022 2:29 PM EDT \Prior Authorization for Medication-do not complete and send this encounter unless you have the faxfrom the pharmacy. Is this a Cover My Meds request: Yes -- [place] Code [id number] Name of Medication pregabalin (LYRICA) Dose of Medication 75 MG capsule What is the RX # from the faxed refill? How does patient take this med? TAKE 1 CAPSULE BY MOUTH TWICE A DAY What Pharmacy did the fax come from: [facility] Pharmacy fax #: [phone] [employer] Information from fax: What Prescription Plan does the patient have? [facility] BIN/PCN if applicable: Cardholder ID: Person Code: Relationship Code: Help desk phone: documented in this encounter Plan of Treatment Not on file documented as of this encounter Visit Diagnoses Not on filedocumented in this encounter Care Teams Coremaker Supervisor Relationship Specialty Start Date End Date Tom White [address] [place] [address] PCP - General Internal Medicine 05/14/22 10/06/22 Marisela Goodrich MD [address] [place] [address] PCP - General Internal Medicine 10/07/22 documented as of this encounter
--- OUTSIDE RECORDS SUMMARY | 2024-12-14 10:33 | XMS_ITS | Encounter Summary ---
Author Organization [facility] Address [address] [place] [address] Care Team Providers Care Welfare Project Manager Name Role Phone Alexandria Peñaloza MD Primary Care Provider Unava Kristy Rush MD Primary Care Provider Un available Alexandria Peñaloza MD Primary Care Provider Unava ilTom Toscano Primary Care Provider [phone] Marisela Goodrich MD Primary Care Provider + Encounter Details Date Type Department Care Team Description 08/15/2016 Exercise Science Instructor Report Medical Records [address] [place] [address] Stephen Reynolds MD Social History Tobacco Use Types Packs/Day [...] on filedocumented in this encounter Care Teams Welfare Project Manager Relationship Specialty Start Date End Date Alexandria Peñaloza MD PCP - General 03/26/10 07/24/20 Kristy Castrejon MD PCP - General Internal Medicine 07/25/20 1 Alexandria Peñaloza MD PCP - General Internal Medicine 11/21/20 05/13/22 Tom White [address] [place] [address] PCP - General Internal Medicine 05/14/22 10/06/22 Marisela Goodrich MD [address] [place] [address] PCP - General Internal Medicine 10/07/22 documented as of this encounter
--- OUTSIDE RECORDS SUMMARY | 2024-12-14 10:33 | XMS_ITS | Encounter Summary ---
Author Organization [facility] Address [address] [place] [address] Care Team Providers Care Decision Unit Rn Name Role Phone Tom White Primary Care Provider [phone] Marisela Goodrich MD Primary Care Provider + Encounter Details Date Type Department Care Team Description 08/23/2022 Supervisor Wet End Report Medical Records [address] [place] [address] Tom White [address] [place] [address] Social History Tobacco Use Types Packs/Day Years [...] on filedocumented in this encounter Care Teams Decision Unit Rn Relationship Specialty Start Date End Date Tom White [address] [place] [address] PCP - General Internal Medicine 05/14/22 10/06/22 Marisela Goodrich MD [address] [place] [address] PCP - General Internal Medicine 10/07/22 documented as of this encounter
--- OUTSIDE RECORDS SUMMARY | 2024-12-14 10:33 | XMS_ITS | Encounter Summary ---
Author Organization [facility] Address [address] [place] [address] Care Team Providers Care Fiber Analyst Name Role Phone Alexandria Peñaloza MD Primary Care Provider Kristy Milan MD Primary Care Provider Un available Alexandria Peñaloza MD Primary Care Provider Soniava Tom Booker Primary Care Provider [phone] Marisela Goodrich MD Primary Care Provider + Encounter Details Date Type Department Care Team Description 04/16/2018 [facility] Medical Records [address] [place] [address] Social History Tobacco Use Types Packs/Day Years [...] on filedocumented in this encounter Care Teams Fiber Analyst Relationship Specialty Start Date End Date Alexandria Peñaloza MD PCP - General 03/26/10 07/24/20 Kristy Castrejon MD PCP - General Internal Medicine 07/25/20 1 Alexandria Peñaloza MD PCP - General Internal Medicine 11/21/20 05/13/22 Tom White [address] [place] [address] PCP - General Internal Medicine 05/14/22 10/06/22 Marisela Goodrich MD [address] [place] [address] PCP - General Internal Medicine 10/07/22 documented as of this encounter
--- OUTSIDE RECORDS SUMMARY | 2024-12-14 10:33 | XMS_ITS | Encounter Summary ---
Author Organization [facility] Address [address] [place] [address] Care Team Providers Care Senior Project Manager Name Role Phone Alexandria Peñaloza MD Primary Care Provider Unava Kristy Rush MD Primary Care Provider Un available Alexandria Peñaloza MD Primary Care Provider Unava ilTom Toscano Primary Care Provider [phone] Marisela Goodrich MD Primary Care Provider + Encounter Details Date Type Department Care Team Description 09/30/2016 Livestock Feeder Report Medical Records [address] [place] [address] Stephen Reynolds MD Social History Tobacco Use [...] on filedocumented in this encounter Care Teams Senior Project Manager Relationship Specialty Start Date End Date Alexandria Peñaloza MD PCP - General 03/26/10 07/24/20 Kristy Castrejon MD PCP - General Internal Medicine 07/25/20 1 Alexandria Peñaloza MD PCP - General Internal Medicine 11/21/20 05/13/22 Tom White [address] [place] [address] PCP - General Internal Medicine 05/14/22 10/06/22 Marisela Goodrich MD [address] [place] [address] PCP - General Internal Medicine 10/07/22 documented as of this encounter
--- OUTSIDE RECORDS SUMMARY | 2024-12-14 10:33 | XMS_ITS | Encounter Summary ---
Author Organization [facility] Address [address] [place] [address] Care Team Providers Care Cp Bleacher Operator Name Role Phone Alexandria Peñaloza MD Primary Care Provider Unava Kristy Rush MD Primary Care Provider Un available Alexandria Peñaloza MD Primary Care Provider Unava ilable Tom White Primary Care Provider [phone] Marisela Goodrich MD Primary Care Provider + Reason for Referral * EXTERNAL (Routine) - Authorized/Booked Specialty Diagnoses / Procedures Referred By Contpark t Referred To Contact Gastroenterology Procedures REFERRAL TO GASTROENTEROLOGY Alexandria Peñaloza MD [address] [place] [address] DesiletsRobel MD [address] [facility] 3rd Floor [address] [place] [address] Referral ID Status Reason Start Date Expiration Date V isits Requested Visits Authorized SEE NOTE Authorized/B ooked 08/15/2017 11/18/2017 1 1 Reason for Visit * Reason Onset Date Comments Sheet Metal Pattern Cutter Feedback 08/15/2017 Dr. Fran Buchanan Encounter Details Date Type Department Care Team Description 08/15/2017 Telephone Medicine/Pediatrics - [address] [phone] Alexandria Peñaloza MD Sheet Metal Pattern Cutter Feedback (Dr. Fran Buchanan) Social History Tobacco Use Types Packs/Day Years [...] encounter Miscellaneous Notes * Telephone Encounter - Alexandria Peñaloza MD - 08/15/2017 8:33 AM EDT Chart reviewed. Had CN w/ evidence of microscopic colitis by Dr. Connell. Pt's SSRI was changed as possible culprit. Referral signed. * Telephone Encounter - Marcus Shepardnett - 08/15/2017 8:29 AM EDT Request came in through my chart. Please review this patients new referral request. The referral has been pended. Please complete thefollowing: If approved> sign order If denied>please give instructions and route to your practice nursing pool. Practice nurse should inform referrals and the patient if denied. documented in this encounter Plan of Treatment Not on file documented as of this encounter Visit Diagnoses Not on filedocumented in this encounter Care Teams Cp Bleacher Operator Relationship Specialty Start Date End Date Alexandria Peñaloza MD PCP - General 03/26/10 07/24/20 Kristy Castrejon MD PCP - General Internal Medicine 07/25/20 1 Alexandria Peñaloza MD PCP - General Internal Medicine 11/21/20 05/13/22 Tom White [address] [place] [address] PCP - General Internal Medicine 05/14/22 10/06/22 Marisela Goodrich MD [address] [place] [address] PCP - General Internal Medicine 10/07/22 documented as of this encounter
--- OUTSIDE RECORDS SUMMARY | 2024-12-14 10:33 | XMS_ITS | Encounter Summary ---
Author Organization [facility] Address [address] [place] [address] Care Team Providers Care Quartz Mounter Name Role Phone Alexandria Peñaloza MD Primary Care Provider Unava Kristy Rush MD Primary Care Provider Un available Alexandria Peñaloza MD Primary Care Provider Unava Tom Booker Primary Care Provider [phone] Marisela Goodrich MD Primary Care Provider + Encounter Details Date Type Department Care Team Description 10/02/2016 [facility] Medical Records [address] [place] [address] Sandy Harrington Social History Tobacco Use Types Packs/Day Years [...] on filedocumented in this encounter Care Teams Quartz Mounter Relationship Specialty Start Date End Date Alexandria Peñaloza MD PCP - General 03/26/10 07/24/20 Kristy Castrejon MD PCP - General Internal Medicine 07/25/20 1 Alexandria Peñaloza MD PCP - General Internal Medicine 11/21/20 05/13/22 Tom White [address] [place] [address] PCP - General Internal Medicine 05/14/22 10/06/22 Marisela Goodrich MD [address] [place] [address] PCP - General Internal Medicine 10/07/22 documented as of this encounter
--- OUTSIDE RECORDS SUMMARY | 2024-12-14 10:33 | XMS_ITS | Encounter Summary ---
Author Organization [facility] Address [address] [place] [address] Care Team Providers Care Medical Collections Representative Name Role Phone Alexandria Peñaloza MD Primary Care Provider Kristy Milan MD Primary Care Provider Un available Alexandria Peñaloza MD Primary Care Provider Soniava Tmo Booker Primary Care Provider [phone] Marisela Goodrich MD Primary Care Provider + Encounter Details Date Type Department Care Team Description 04/15/2018 [facility] Medical Records [address] [place] [address] Social History Tobacco Use Types Packs/Day Years [...] filedocumented in this encounter Care Teams Medical Collections Representative Relationship Specialty Start Date End Date Alexandria Peñaloza MD PCP - General 03/26/10 07/24/20 Kristy Castrejon MD PCP - General Internal Medicine 07/25/20 1 Alexandria Peñaloza MD PCP - General Internal Medicine 11/21/20 05/13/22 Tom White [address] [place] [address] PCP - General Internal Medicine 05/14/22 10/06/22 Marisela Goodrich MD [address] [place] [address] PCP - General Internal Medicine 10/07/22 documented as of this encounter
--- OUTSIDE RECORDS SUMMARY | 2024-12-14 10:33 | XMS_ITS | Encounter Summary ---
Author Organization [facility] Address [address] [place] [address] Care Team Providers Care Pearl Maker Name Role Phone Alexandria Peñaloza MD Primary Care Provider Unava Kristy Rush MD Primary Care Provider Un available Alexandria Peñaloza MD Primary Care Provider Unava Tom Booker Primary Care Provider [phone] Marisela Goodrich MD Primary Care Provider + Encounter Details Date Type Department Care Team Description 12/27/2019 Release of Information Medical Records [address] [place] [address] Abstract, Provider Social History Tobacco Use Types Packs/Day Years Used Date Smoking Tobacco: Former Cigarettes 0.3 7 Q uit: 01/14/2019 Smokeless Tobacco: Never Comments:Patch Alcohol Use [...] on filedocumented in this encounter Care Teams Pearl Maker Relationship Specialty Start Date End Date Alexandria Peñaloza MD PCP - General 03/26/10 07/24/20 Kristy Castrejon MD PCP - General Internal Medicine 07/25/20 1 Alexandria Peñaloza MD PCP - General Internal Medicine 11/21/20 05/13/22 Tom White [address] [place] [address] PCP - General Internal Medicine 05/14/22 10/06/22 Marisela Goodrich MD [address] [place] [address] PCP - General Internal Medicine 10/07/22 documented as of this encounter
--- OUTSIDE RECORDS SUMMARY | 2024-12-14 10:33 | XMS_ITS | Encounter Summary ---
Author Organization [facility] Address [address] [place] [address] Care Team Providers Care Camper Assembler Name Role Phone Alexandria Peñaloza MD Primary Care Provider Unava Kristy Rush MD Primary Care Provider Un available Alexandria Peñaloza MD Primary Care Provider Unava ilTom Toscano Primary Care Provider [phone] Marisela Goodrich MD Primary Care Provider + Encounter Details Date Type Department Care Team Description 05/23/2011 Cooperative Manager Report Medical Records [address] [place] [address] Reji Hensley [address] [place] [address] Social History Tobacco Use Types Packs/Day Years [...] on filedocumented in this encounter Care Teams Camper Assembler Relationship Specialty Start Date End Date Alexandria Peñaloza MD PCP - General 03/26/10 07/24/20 Kristy Castrejon MD PCP - General Internal Medicine 07/25/20 1 Alexandria Peñaloza MD PCP - General Internal Medicine 11/21/20 05/13/22 Tom White [address] [place] [address] PCP - General Internal Medicine 05/14/22 10/06/22 Marisela Goodrich MD [address] [place] [address] PCP - General Internal Medicine 10/07/22 documented as of this encounter
--- OUTSIDE RECORDS SUMMARY | 2024-12-14 10:33 | XMS_ITS | Encounter Summary ---
Author Organization [facility] Address [address] [place] [address] Care Team Providers Care Cpr Instructor Name Role Phone Tom White Primary Care Provider Marisela Goodrich MD Primary Care Provider + Encounter Details Date Type Department Care Team Description 05/27/2022 [facility] Medical Records [address] [place] [address] Abstract, Provider Social History Tobacco Use Types [...] on filedocumented in this encounter Care Teams Cpr Instructor Relationship Specialty Start Date End Date Tom White [address] [place] [address] PCP - General Internal Medicine 05/14/22 10/06/22 Marisela Goodrich MD [address] [place], [place] [phone] PCP - General Internal Medicine 10/07/22 documented as of this encounter
--- OUTSIDE RECORDS SUMMARY | 2024-12-14 10:33 | XMS_ITS | Encounter Summary ---
Author Organization [facility] Address [address] [place] [address] Care Team Providers Care Lard Maker Name Role Phone Tom White Primary Care Provider [phone] Marisela Goodrich MD Primary Care Provider + Encounter Details Date Type Department Care Team Description 09/05/2022 Refill Medicine/Pediatrics - [address] [address] Tatum Thomas PA-C Social History Tobacco Use Types Packs/Day [...] encounter Miscellaneous Notes * Telephone Encounter - Tom White - 09/05/2022 2:37 PM EDT For now I renewed the prescription. I will evaluate her next month. * Telephone Encounter - Holly Prieto M.A. - 09/05/2022 1:12 PM EDT LRF 05/22/22 for 30 day supply w/ 2 refill PERRY 05/22/22 - Tiffanie Thomas NOV 09/24/22 - DR. White- NEW to PCP- will you review if this refill is appropriate to refill untilyou see this patient? 09/02/2022 08/26/2022 1 Lacosamide 150 Mg Tablet 60 30 Wi Krystian [id number] [facility] 0/5 1.20 LME Medicaid [place] 08/19/2022 04/01/2022 1 Lorazepam 2 Mg Tablet 30 30 Jalyn Woj [id number] [facility] 4/4 2.00 LME Medicaid [place] 08/05/2022 06/07/2022 1 Lacosamide 150 Mg Tablet 60 30 Wi Krystian [id number] [facility] 2/5 1.20 LME [place] 08/01/2022 05/22/2022 1 Pregabalin 75 Mg Capsule 60 30 Al Fru [id number] [facility] 2/2 1.00 LME [place] 07/16/2022 07/16/2022 1 Clonazepam 0.5 Mg Tablet 15 30 Sh Dev [id number] [facility] 0/0 0.50 L[place] 07/12/2022 04/01/2022 1 Lorazepam 2 Mg Tablet 30 30 Jalyn Woj [id number] [facility] 3/4 2.00 L[place] 07/06/2022 06/07/2022 1 Lacosamide 150 Mg Tablet 60 30 Wi Krystian [id number] [facility] 1/5 1.20 LME [place] 06/27/2022 05/22/2022 1 Pregabalin 75 Mg Capsule 60 30 Al Fru [id number] [facility] 1/2 1.00 L[place] 06/11/2022 04/01/2022 1 Lorazepam 2 Mg Tablet 30 30 Jalyn Woj [id number] [facility] 2/4 2.00 LME Medicaid [place] 06/07/2022 06/07/2022 1 Lacosamide 150 Mg Tablet 60 30 Wi Krystian [id number] [facility] (14[facility] 0/5 1.20 LME Medicaid [place] 05/22/2022 05/22/2022 1 Oxycodone-Acetaminophen 5-325 14 14 Al Fru [id number] [facility] 0/0 7.50 MME Medicaid [place] 05/22/2022 05/22/2022 1 Pregabalin 75 Mg Capsule 60 30 Al Fru [id number] [facility] 0/2 1.00 LME [place] 05/10/2022 04/01/2022 1 Lorazepam 2 Mg Tablet 30 30 Jalyn Woj [id number] [facility] 1/ 2.00 LME Medicaid [place] 05/05/2022 04/24/2022 1 Clonazepam 0.5 Mg Tablet 15 30 Sh Dev [id number] [facility] (14[facility] 0/0 0.50 LME Medicaid [place] 05/03/2022 11/19/2021 1 Lacosamide 150 Mg Tablet 60 30 Jalyn Woj [id number] [facility] (14[facility]) 03/21 1.20 LME Medicaid [place] documented in this encounter Plan of Treatment Not on file documented as of this encounter Visit Diagnoses Not on filedocumented in this encounter Care Teams Lard Maker Relationship Specialty Start Date End Date Tom White [address] [place] [address] PCP - General Internal Medicine 05/14/22 10/06/22 Marisela Goodrich MD [address] [place] [address] PCP - General Internal Medicine 10/07/22 documented as of this encounter
--- OUTSIDE RECORDS SUMMARY | 2024-12-14 10:33 | XMS_ITS | Encounter Summary ---
Author Organization [facility] Address [address] [place] [address] Care Team Providers Care Social Service Agency Director Name Role Phone Alexandria Peñaloza MD Primary Care Provider Kristy Milan MD Primary Care Provider Un available Alexandria Peñaloza MD Primary Care Provider Soniava Tom Booker Primary Care Provider [phone] Marisela Goodrich MD Primary Care Provider + Encounter Details Date Type Department Care Team Description 04/06/2018 [facility] Medical Records [address] [place] [address] Social History Tobacco Use Types Packs/Day Years [...] on filedocumented in this encounter Care Teams Social Service Agency Director Relationship Specialty Start Date End Date Alexandria Peñaloza MD PCP - General 03/26/10 07/24/20 Kristy Castrejon MD PCP - General Internal Medicine 07/25/20 1 Alexandria Peñaloza MD PCP - General Internal Medicine 11/21/20 05/13/22 Tom White [address] [place] [address] PCP - General Internal Medicine 05/14/22 10/06/22 Marisela Goodrich MD [address] [place] [address] PCP - General Internal Medicine 10/07/22 documented as of this encounter
--- OUTSIDE RECORDS SUMMARY | 2024-12-14 10:33 | XMS_ITS | Encounter Summary ---
Author Organization [facility] Address [address] [place] [address] Care Team Providers Care Room Service Supervisor Name Role Phone Tom White Primary Care Provider [phone] Marisela Goodrich MD Primary Care Provider + Reason for Visit * Reason Comments E-prescribe Rx Request Encounter Details Date Type Department Care Team Description 05/19/2022 Refill Medicine/Pediatrics - [address] [address] Alexandria Peñaloza MD E-prescribe Rx Request Social History Tobacco Use Types Packs/Day Years [...] encounter Miscellaneous Notes * Telephone Encounter - Gale Mendoza L.P.N. - 05/21/2022 12:29 PM EDT See 03/20/2022 UTD please review and sign * Telephone Encounter - Haylie Callaway - 05/21/2022 11:43 AM EDT Patient would like script to be: E-PRESCRIBED/FAXED TO PHARMACY WHEN WAS THE PATIENT'S LAST APPOINTMENT IN ADULT MEDICINE? 03/20/[address] Peñaloza WHEN WAS THE LAST TIME THE PATIENT SAW THEIR PCP? Does patient have an upcoming appointment? Yes 09/24/22 with new PCP (THE MEDICATION REQUESTED IS ON THE MED LIST ABOVE) All of the medications requested were on the CURRENT MEDS list Did you check the Pharmacy information above?: YES Patient wants: 30 -day supply Is this a mail order prescription request ? NO If the refill is from a FAXED refill request what is the RX # listed on the fax? N/A Patients current insurance carrier is: Payor: [employer] FFS / Plan: [employer] / Product Type: MEDICAID RISK documented in this encounter Plan of Treatment Not on file documented as of this encounter Visit Diagnoses Diagnosis Acute nasopharyngitis Acute nasopharyngitis (common cold) Exercise-induced asthma Exercise induced bronchospasm documented in this encounter Care Teams Room Service Supervisor Relationship Specialty Start Date End Date Tom White [address] [place] [id number] PCP - General Internal Medicine 05/14/22 10/06/22 Marisela Goodrich MD [address] [place], [place] [phone] PCP - General Internal Medicine 10/07/22 documented as of this encounter
--- OUTSIDE RECORDS SUMMARY | 2024-12-14 10:33 | XMS_ITS | Encounter Summary ---
Author Organization [facility] Address [address] [place] [address] Care Team Providers Care Distribution Agent Name Role Phone Tom White Primary Care Provider [phone] Marisela Goodrich MD Primary Care Provider + Reason for Visit * Reason Onset Date Comments Mychart Rx Refill 09/06/2022 Encounter Details Date Type Department Care Team Description 09/06/2022 Refill Medicine/Pediatrics - [address] [phone] Aye Ortega PA-C [address] [place] [address] Mychart Rx Refill Social History Tobacco Use Types Packs/Day Years [...] encounter Miscellaneous Notes * Telephone Encounter - Ruthy Fry M.A. - 09/06/2022 2:18 PM EDT Lab Results Component Value Date NA 141 11/01/2021 K 4.0 11/01/2021 CO2 25 11/01/2021 CL 109 11/01/2021 BUN 10 11/01/2021 CREAT 0.69 11/01/2021 GLU 132 11/01/2021 CA 8.6 11/01/2021 GFR > 60 11/01/2021 Pending appt 09/24/22 documented in this encounter Plan of Treatment Not on file documented as of this encounter Visit Diagnoses Not on filedocumented in this encounter Care Teams Distribution Agent Relationship Specialty Start Date End Date Tom White [address] [place] [address] PCP - General Internal Medicine 05/14/22 10/06/22 Marisela Goodrich MD [address] [place] [address] PCP - General Internal Medicine 10/07/22 documented as of this encounter
--- OUTSIDE RECORDS SUMMARY | 2024-12-14 10:33 | XMS_ITS | Clinical Summary ---
Author Organization [facility] it Address [address] [place] [address] Care Team Providers Care Risk Management Intern Name Role Phone Marisela Goodrich MD Primary [...] 09/24/2022 Nocturnal hypoxemia 04/08/2022 Overview (11/12/2024): [facility] diagnostic polysomnogram 03/14/2022 weight 320; BMI 49. [...] Surgery Date Site/Laterality Comments SECTION 2007 PROCEDURE: [place] DELIVERY ONLY; COMMENT: x 1 WISDOM TOOTH EXTRACTION age 14 PROCEDURE: HISTORICAL WISDOM TEETH EXTRACTION OTHER SURGICAL HISTORY age 5 PROCEDURE: [place] STRABISMUS RECESSION/RESCJ 1 HRZNTL MUSC TUBAL LIGATION [...] Joshi COLONOSCOPY 06/2018 PROCEDURE: HISTORICAL COLONOSCOPY; COMMENT: [facility]; visually normal, biopsies negative for microscopic colitis. COLONOSCOPY 11/2017 PROCEDURE: HISTORICAL COLONOSCOPY; COMMENT: [facility]; random biopsies negative for microscopic colitis, one diminutive tubular adenoma in the sigmoid colon. ROBOTIC ASSISTED HYSTERECTOMY 12/20/2019 PROCEDURE: HISTORICAL ROBOTIC HYSTERECTOMY WITH OR WITHOUT BSO; COMMENT: [facility] total hysterectomy with bilateral salpingectomy UPPER GASTROINTESTINAL ENDOSCOPY 02/25/2012 PROCEDURE: [place] UPPER GI ENDOSCOPY PERFORMED; COMMENT: Normal on PPI rx. UPPER GASTROINTESTINAL ENDOSCOPY 12/15/2016 PROCEDURE: [place] UPPER GI ENDOSCOPY PERFORMED; [facility] small hiatal her[facility], biopsy of a normal-appearing EG junction was negative for Vasquez's esophagus. Medical History Medical History Date Comments Joint pain DX:Joint pain Asthma DX:Asthma; COMME NT: exercise induced; URI Depression DX:Depression; C OMMENT: as a teenager Anemia DX:Anemia Seizure (CMS/HCC) age 10 DX:Seizure (HC C); COMMENT: nocturnal complex partial; [facility] Hensley [facility] IBS (irritable bowel syndrome) D X:IBS (irritable [...] lump, ovarian cyst, heart problem, thyroid dz, [place] age unknown Mother Alive ovarian cyst Paternal [...] * Annual BMP Blood Test (02/26/2023) Pathologist [facility] Annual BMP Blood Test abstracted Historical Provider [facility] * Urine Albumin Creatinine Ratio (01/27/2023) [facility] Urine Albumin Creatinine Ratio abstracted [facility] * (ABNORMAL) Hemoglobin A1c (01/27/2023) [facility] Hemoglobin A1C 8.4(A) 6.5 % Blood Venous blood specimen / Unknown Historical Provider LAB BLOOD ORDERAB LES * (ABNORMAL) Lipid panel (01/27/2023) [facility] LDL/HDL Ratio 5(A) 0 - 4 Triglycerides 509(A) 0 - 150 mg/dL Cholesterol 173 0 - 200 mg/dL HDL 36(A) 40 mg/dL Blood Venous blood specimen / Unknown Historical Provider LAB BLOOD ORDERAB LES * Colonoscopy (01/17/2021) Pathologist [facility] Colonoscopy no interpretation , abstracted Anatomical Region Laterality Modality Other Historical Provider [facility] * DX MAMMO INCL CAD BI [...] Recently Relevant to Health Maintenance Care Teams Risk Management Intern Relationship Specialty Start Date End Date Marisela Goodrich MD PCP - General 10/07/22
--- OUTSIDE RECORDS SUMMARY | 2024-12-14 10:33 | XMS_ITS | Encounter Summary ---
Author Organization [facility] Address [address] [place] [address] Care Team Providers Care Correctional Facility Psychiatrist Name Role Phone Tom White Primary Care Provider [phone] Marisela Goodrich MD Primary Care Provider + Reason for Visit * Reason Onset Date Comments Mychart Rx Refill 09/05/2022 Encounter Details Date Type Department Care Team Description 09/05/2022 Refill Medicine/Pediatrics - [address] [address] Aye Ortega PA-C [address] [place] [address] Mychart Rx Refill Social History Tobacco Use [...] Encounter - Ruthy Fry M.A. - 09/06/2022 2:16 PM EDT Lab Results Component Value Date NA 141 11/01/2021 K 4.0 11/01/2021 CO2 25 11/01/2021 CL 109 11/01/2021 BUN 10 11/01/2021 CREAT 0.69 11/01/2021 GLU 132 11/01/2021 CA 8.6 11/01/2021 GFR > 60 11/01/2021 Pending first appt with pcp 09/24/[address] Peñaloza 03/20/22 documented in this encounter Plan of Treatment Not on file documented as of this encounter Visit Diagnoses Not on filedocumented in this encounter Care Teams Correctional Facility Psychiatrist Relationship Specialty Start Date End Date Tom White [address] [place] [address] PCP - General Internal Medicine 05/14/22 10/06/22 Marisela Goodrich MD [address] [place] [address] PCP - General Internal Medicine 10/07/22 documented as of this encounter
--- OUTSIDE RECORDS SUMMARY | 2024-12-14 10:33 | XMS_ITS | Encounter Summary ---
Author Organization [facility] Address [address] [place] [address] Care Team Providers Care Loan Consultant Name Role Phone Alexandria Peñaloza MD Primary Care Provider Unava Kristy Rush MD Primary Care Provider Un available Alexandria Peñaloza MD Primary Care Provider Unava ilable Tom White Primary Care Provider [phone] Marisela Goodrich MD Primary Care Provider + Reason for Visit * Reason Onset Date Comments External Sleep Study Request 11/24/2019 Cecelia e sleep study Encounter Details Date Type Department Care Team Description 11/24/2019 Telephone Medicine/Pediatrics - [address] [address] Kristy Castrejon MD External Sleep Study Request (Home sleep study) Social History Tobacco Use Types Packs/Day Years [...] encounter Miscellaneous Notes * Telephone Encounter - Sarika Ariza - 11/24/2019 1:44 PM EST [facility] auth # [id number] 11/20/19- 02/19/20 [id number] Order, benefits faxed to Sleep Medicine Notification letter sent. documented in this encounter Plan of Treatment Not on file documented as of this encounter Visit Diagnoses Not on filedocumented in this encounter Care Teams Loan Consultant Relationship Specialty Start Date End Date Alexandria Peñaloza MD PCP - General 03/26/10 07/24/20 Kristy Castrejon MD PCP - General Internal Medicine 07/25/20 1 Alexandria Peñaloza MD PCP - General Internal Medicine 11/21/20 05/13/22 Tom White [address] [place] [address] PCP - General Internal Medicine 05/14/22 10/06/22 Marisela Goodrich MD [address] [place] [address] PCP - General Internal Medicine 10/07/22 documented as of this encounter
--- OUTSIDE RECORDS SUMMARY | 2024-12-14 10:33 | XMS_ITS | Encounter Summary ---
Author Organization [facility] Address [address] [place] [address] Care Team Providers Care Operating Systems Programmer Name Role Phone Alexandria Peñaloza MD Primary Care Provider Unava Kristy Rush MD Primary Care Provider Un available Alexandria Peñaloza MD Primary Care Provider Unava Tom Booker Primary Care Provider Marisela Goodrich MD Primary Care Provider + Encounter Details Date Type Department Care Team Description 08/27/2011 Orders Only Medicine/Pediatrics - [address] [phone] Alexandria Peñaloza MD Social History Tobacco Use Types Packs/Day [...] on filedocumented in this encounter Care Teams Operating Systems Programmer Relationship Specialty Start Date End Date Alexandria Peñaloza MD PCP - General 03/26/10 07/24/20 Kristy Castrejon MD PCP - General Internal Medicine 07/25/20 1 Alexandria Peñaloza MD PCP - General Internal Medicine 11/21/20 05/13/22 Tom White [address] [place] [address] PCP - General Internal Medicine 05/14/22 10/06/22 Marisela Goodrich MD [address] [place] [address] PCP - General Internal Medicine 10/07/22 documented as of this encounter
--- OUTSIDE RECORDS SUMMARY | 2024-12-14 10:33 | XMS_ITS | Encounter Summary ---
Author Organization [facility] Address [address] [place] [address] Care Team Providers Care Life Skills Coordinator Name Role Phone Alexandria Peñaloza MD Primary Care Provider Unava Kristy Rush MD Primary Care Provider Un available Alexandria Peñaloza MD Primary Care Provider Unava ilable Tom White Primary Care Provider [phone] Marisela Goodrich MD Primary Care Provider + Reason for Visit * Reason Onset Date Comments Call From Pharmacy 12/22/2019 Encounter Details Date Type Department Care Team Description 12/22/2019 Telephone OBN - [address] [address] Robel Mares MD Call From Pharmacy Social History Tobacco Use Types Packs/Day Years [...] encounter Miscellaneous Notes * Telephone Encounter - Luanne Kowalski R.N. - 12/22/2019 11:49 AM EST Message sent to provider * Telephone Encounter - Shyann Campo - 12/22/2019 11:44 AM EST pts pharmacy [facility] [place] calling states the pt is using their pharmacy for the first time and filling a rx written by dr mares for oxycodone 10mg - the pharmacy states they found that thept is already on vicodin that was filled elsewhere and just received a two week supply on dec 14 from her regular doctor dr alexandria peñaloza - please call to advise documented in this encounter Plan of Treatment Not on file documented as of this encounter Visit Diagnoses Not on filedocumented in this encounter Care Teams Life Skills Coordinator Relationship Specialty Start Date End Date Alexandria Peñaloza MD PCP - General 03/26/10 07/24/20 Kristy Castrejon MD PCP - General Internal Medicine 07/25/20 1 Alexandria Peñaloza MD PCP - General Internal Medicine 11/21/20 05/13/22 Tom White [address] [place] [address] PCP - General Internal Medicine 05/14/22 10/06/22 Marisela Goodrich MD [address] [place] [address] PCP - General Internal Medicine 10/07/22 documented as of this encounter
--- OUTSIDE RECORDS SUMMARY | 2024-12-14 10:33 | XMS_ITS | Encounter Summary ---
Author Organization [facility] Address [address] [place] [address] Care Team Providers Care Bicycle Ii Assembler Name Role Phone Tom White Primary Care Provider [phone] Marisela Goodrich MD Primary Care Provider + Reason for Visit * Reason Comments E-prescribe Rx Request Encounter Details Date Type Department Care Team Description 09/05/2022 Refill Medicine/Pediatrics - [address] [address] Tatum Thomas PA-C E-prescribe Rx Request Social History Tobacco Use [...] Telephone Encounter - Ruthy Fry M.A. - 09/10/2022 2:16 PM EDT Refused duplicate refill was sent 09/05/22 documented in this encounter Plan of Treatment Not on file documented as of this encounter Visit Diagnoses Not on filedocumented in this encounter Care Teams Bicycle Ii Assembler Relationship Specialty Start Date End Date Tom White [address] [place] [address] PCP - General Internal Medicine 05/14/22 10/06/22 Marisela Goodrich MD [address] [place] [address] PCP - General Internal Medicine 10/07/22 documented as of this encounter
--- OUTSIDE RECORDS SUMMARY | 2024-12-14 10:33 | XMS_ITS | Encounter Summary ---
Author Organization [facility] Address [address] [place] [address] Care Team Providers Care Team Assembler Name Role Phone Alexandria Peñaloza MD Primary Care Provider UnaKristy Negro MD Primary Care Provider Un available Alexandria Peñaloza MD Primary Care Provider Soniava Tom Booker Primary Care Provider Marisela Goodrich MD Primary Care Provider + Encounter Details Date Type Department Care Team Description 10/16/2011 Periodicals Library Assistant Report Medical Records [address] [place] [address] Mushtaq Cerda MD Social History Tobacco Use [...] on filedocumented in this encounter Care Teams Team Assembler Relationship Specialty Start Date End Date Alexandria Peñaloza MD PCP - General 03/26/10 07/24/20 Kristy Castrejon MD PCP - General Internal Medicine 07/25/20 1 Alexandria Peñaloza MD PCP - General Internal Medicine 11/21/20 05/13/22 Tom White [address] [place] [address] PCP - General Internal Medicine 05/14/22 10/06/22 Marisela Goodrich MD [address] [place] [address] PCP - General Internal Medicine 10/07/22 documented as of this encounter
--- OUTSIDE RECORDS SUMMARY | 2024-12-14 10:33 | XMS_ITS | Encounter Summary ---
Author Organization [facility] Address [address] [place] [address] Care Team Providers Care Cd Mixer Name Role Phone Alexandria Peñaloza MD Primary Care Provider Tom Jane Primary Care Provider [phone] Marisela Goodrich MD Primary Care Provider + Encounter Details Date Type Department Care Team Description 12/20/2021 Telephone Adult Medicine - [address] [address] Aye Ortega PA-C [address] [place] [address] Social History Tobacco Use Types Packs/Day Years [...] encounter Miscellaneous Notes * Telephone Encounter - Gayle Shell M.A. - 12/20/2021 2:24 PM EST ----- Message from Román Mason sent at 12/18/2021 4:13 PM EST ----- Please review documented in this encounter Plan of Treatment Not on file documented as of this encounter Visit Diagnoses Not on filedocumented in this encounter Care Teams Cd Mixer Relationship Specialty Start Date End Date Alexandria Peñaloza MD PCP - General Internal Medicine 11/21/20 05/13/22 Tom White [address] [place] [address] PCP - General Internal Medicine 05/14/22 10/06/22 Marisela Goodrich MD [address] [place], [place] [id number] PCP - General Internal Medicine 10/07/22 documented as of this encounter
--- OUTSIDE RECORDS SUMMARY | 2024-12-14 10:33 | XMS_ITS | Encounter Summary ---
Author Organization [facility] Address [address] [place] [address] Care Team Providers Care Nuclear Plant Instrument Technician Name Role Phone Alexandria Peñaloza MD Primary Care Provider Unava Kristy Rush MD Primary Care Provider Un available Alexandria Peñaloza MD Primary Care Provider Unava Tom Booker Primary Care Provider [phone] Marisela Goodrich MD Primary Care Provider + Encounter Details Date Type Department Care Team Description 10/06/2016 [facility] Medical Records [address] [place] [address] Social History Tobacco Use Types Packs/Day Years [...] on filedocumented in this encounter Care Teams Nuclear Plant Instrument Technician Relationship Specialty Start Date End Date Alexandria Peñaloza MD PCP - General 03/26/10 07/24/20 Kristy Castrejon MD PCP - General Internal Medicine 07/25/20 1 Alexandria Peñaloza MD PCP - General Internal Medicine 11/21/20 05/13/22 Tom White [address] [place] [address] PCP - General Internal Medicine 05/14/22 10/06/22 Marisela Goodrich MD [address] [place] [address] PCP - General Internal Medicine 10/07/22 documented as of this encounter
--- OUTSIDE RECORDS SUMMARY | 2024-12-14 10:33 | XMS_ITS | Encounter Summary ---
Author Organization [facility] Address [address] [place] [address] Care Team Providers Care Press Box Custodian Name Role Phone Alexandria Peñaloza MD Primary Care Provider Unava Kristy Rush MD Primary Care Provider Un available Alexandria Peñaloza MD Primary Care Provider Unava ilable Tom White Primary Care Provider [phone] Marisela Goodrich MD Primary Care Provider + Reason for Visit * Reason Comments E-prescribe Rx Request Encounter Details Date Type Department Care Team Description 04/24/2018 Refill Medicine/Pediatrics - [address] [address] Geoffrey Camarillo PA-C E-prescribe Rx Request Social History Tobacco [...] encounter Miscellaneous Notes * Telephone Encounter - Sandy Villa PA-C - 04/24/2018 10:22 AM EDT There is no prescription attached to this encounter * Telephone Encounter - Bright Cruz R.N. - 04/24/2018 9:19 AM EDT Last ov 02/10/18 Order pended * Telephone Encounter - Beverly Hilda - 04/24/2018 8:19 AM EDT Patient would like script to be: E-PRESCRIBED/FAXED TO PHARMACY WHEN WAS THE PATIENT'S LAST APPOINTMENT IN ADULT MEDICINE? [id number] WHEN WAS THE LAST TIME THE PATIENT SAW THEIR PCP? [id number] Does patient have an upcoming appointment? Yes [id number] (THE MEDICATION REQUESTED IS ON THE MED LIST ABOVE) All of the medications requested were on the CURRENT MEDS list Did you check the Pharmacy information above?: YES Patient wants: 30 -day supply Is this a mail order prescription request ? NO Patients current insurance carrier is: [facility] / Plan: [facility] / Product Type: MEDICAID RISK documented in this encounter Plan of Treatment Not on file documented as of this encounter Visit Diagnoses Not on filedocumented in this encounter Care Teams Press Box Custodian Relationship Specialty Start Date End Date Alexandria Peñaloza MD PCP - General 03/26/10 07/24/20 Kristy Castrejon MD PCP - General Internal Medicine 07/25/20 1 Alexandria Peñaloza MD PCP - General Internal Medicine 11/21/20 05/13/22 Tom White [address] [place] [address] PCP - General Internal Medicine 05/14/22 10/06/22 Marisela Goodrich MD [address] [place] [address] PCP - General Internal Medicine 10/07/22 documented as of this encounter
--- OUTSIDE RECORDS SUMMARY | 2024-12-14 10:33 | XMS_ITS | Encounter Summary ---
Author Organization [facility] Address [address] [place] [address] Care Team Providers Care Hat And Cap Drying Room Attendant Name Role Phone Alexandria Peñaloza MD Primary Care Provider Kristy Milan MD Primary Care Provider Un available Alexandria Peñaloza MD Primary Care Provider Soniava Tom Booker Primary Care Provider [phone] Marisela Goodrich MD Primary Care Provider + Encounter Details Date Type Department Care Team Description 04/11/2018 [facility] Medical Records [address] [place] [address] Social History Tobacco Use Types Packs/Day Years [...] on filedocumented in this encounter Care Teams Hat And Cap Drying Room Attendant Relationship Specialty Start Date End Date Alexandria Peñaloza MD PCP - General 03/26/10 07/24/20 Kristy Castrejon MD PCP - General Internal Medicine 07/25/20 1 Alexandria Peñaloza MD PCP - General Internal Medicine 11/21/20 05/13/22 Tom White [address] [place] [address] PCP - General Internal Medicine 05/14/22 10/06/22 Marisela Goodrich MD [address] [place] [address] PCP - General Internal Medicine 10/07/22 documented as of this encounter
--- OUTSIDE RECORDS SUMMARY | 2024-12-14 10:33 | XMS_ITS | Encounter Summary ---
Author Organization [facility] Address [address] [place] [address] Care Team Providers Care Art Critic Name Role Phone Alexandria Peñaloza MD Primary Care Provider Unava Kristy Rush MD Primary Care Provider Un available Alexandria Peñaloza MD Primary Care Provider Unava Tom Booker Primary Care Provider [phone] Marisela Goodrich MD Primary Care Provider + Encounter Details Date Type Department Care Team Description 12/20/2019 [facility] Medical Records [address] [place] [address] Robel Marks MD Social History Tobacco Use Types Packs/Day [...] on filedocumented in this encounter Care Teams Art Critic Relationship Specialty Start Date End Date Alexandria Peñaloza MD PCP - General 03/26/10 07/24/20 Kristy Castrejon MD PCP - General Internal Medicine 07/25/20 1 Alexandria Peñaloza MD PCP - General Internal Medicine 11/21/20 05/13/22 Tom White [address] [place] [address] PCP - General Internal Medicine 05/14/22 10/06/22 Marisela Goodrich MD [address] [place] [address] PCP - General Internal Medicine 10/07/22 documented as of this encounter
--- OUTSIDE RECORDS SUMMARY | 2024-12-14 10:33 | XMS_ITS | Encounter Summary ---
Author Organization [facility] Address [address] [place] [address] Care Team Providers Care Clinical Project Manager Name Role Phone Alexandria Peñaloza MD Primary Care Provider Unava Kristy Rush MD Primary Care Provider Un available Alexandria Peñaloza MD Primary Care Provider Unava Tom Booker Primary Care Provider Marisela Goodrich MD Primary Care Provider + Encounter Details Date Type Department Care Team Description 10/24/2019 [facility] Medical Records [address] [place] [address] Joleen Ewing, STONE LATHE OPERATOR Social History Tobacco Use Types Packs/Day Years [...] on filedocumented in this encounter Care Teams Clinical Project Manager Relationship Specialty Start Date End Date Alexandria Peñaloza MD PCP - General 03/26/10 07/24/20 Kristy Castrejon MD PCP - General Internal Medicine 07/25/20 1 Alexandria Peñaloza MD PCP - General Internal Medicine 11/21/20 05/13/22 Tom White [address] [place] [address] PCP - General Internal Medicine 05/14/22 10/06/22 Marisela Goodrich MD [address] [place] [address] PCP - General Internal Medicine 10/07/22 documented as of this encounter
--- OUTSIDE RECORDS SUMMARY | 2024-12-14 10:33 | XMS_ITS | Encounter Summary ---
Author Organization [facility] Address [address] [place] [address] Care Team Providers Care Clinical Data Analyst Name Role Phone Alexandria Peñaloza MD Primary Care Provider Tom Jane Primary Care Provider [phone] Marisela Goodrich MD Primary Care Provider + Reason for Visit * Reason Onset Date Comments radiology 11/23/2021 Encounter Details Date Type Department Care Team Description 11/23/2021 Telephone MRI - [place] [address] [place] [address] Aye Ortega PA-C [address] [place] [address] radiology Social History Tobacco Use Types Packs/Day Years [...] have Coronavirus / COVID-19? No / Unsure 11/19/2021 3:41 PM EST documented as of this encounter Miscellaneous Notes * Telephone Encounter - Jessica Davey - 11/23/2021 1:12 PM EST Good afternoon, I just spoke with patient. She has Patrick nerve stimulator and will need to be scanned at [facility] on open mri machine due to her BMI. Can you please place external order? Thank you, Lindsay Mri department ext [phone] documented in this encounter Plan of Treatment Not on file documented as of this encounter Visit Diagnoses Not on filedocumented in this encounter Care Teams Clinical Data Analyst Relationship Specialty Start Date End Date Alexandria Peñaloza MD PCP - General Internal Medicine 11/21/20 05/13/22 Tom White [address] [place] [address] PCP - General Internal Medicine 05/14/22 10/06/22 Marisela Goodrich MD [address] [place] [address] PCP - General Internal Medicine 10/07/22 documented as of this encounter
--- OUTSIDE RECORDS SUMMARY | 2024-12-14 10:34 | XMS_ITS | Encounter Summary ---
Author Organization [facility] Address [address] [place] [address] Care Team Providers Care Manager Wastewater Name Role Phone Alexandria Peñaloza MD Primary Care Provider Unava Kristy Rush MD Primary Care Provider Un available Alexandria Peñaloza MD Primary Care Provider Unava Tom Booker Primary Care Provider [phone] Marisela Goodrich MD Primary Care Provider + Encounter Details Date Type Department Care Team Description 07/04/2019 [facility] Medical Records [address] [place] [id number] [place] [address] Social History Tobacco Use Types Packs/Day Years [...] on filedocumented in this encounter Care Teams Manager Wastewater Relationship Specialty Start Date End Date Alexandria Peñaloza MD PCP - General 03/26/10 07/24/20 Kristy Castrejon MD PCP - General Internal Medicine 07/25/20 1 Alexandria Peñaloza MD PCP - General Internal Medicine 11/21/20 05/13/22 Tom White [address] [place] [address] PCP - General Internal Medicine 05/14/22 10/06/22 Marisela Goodrich MD [address] [place] [address] PCP - General Internal Medicine 10/07/22 documented as of this encounter
--- OUTSIDE RECORDS SUMMARY | 2024-12-14 10:34 | XMS_ITS | Encounter Summary ---
Author Organization [facility] Address [address] [place] [address] Care Team Providers Care Cpas Name Role Phone Alexandria Peñaloza MD Primary Care Provider Unava Kristy Rush MD Primary Care Provider Un available Alexandria Peñaloza MD Primary Care Provider Unava Tom Booker Primary Care Provider [phone] Marisela Goodrich MD Primary Care Provider + Encounter Details Date Type Department Care Team Description 07/03/2015 Orders Only Medicine/Pediatrics - [address] [phone] Marli Vanessa PA-C Other B-complex deficiencies (Primary Dx) Social History Tobacco Use Types Packs/Day Years [...] on file documented as of this encounter Results * (ABNORMAL) VITAMIN B-12, ASSAY (07/03/2015 5:08 PM EDT) VITAMIN B12 > 2000(H) 211 - 946 pg/mL 07/04/2015 11:03 AM EDT [facility] 07/03/2015 5:08 PM EDT 07/03/2015 5:08 PM EDT Marli Vanessa PA-C [facility] [address] [facility] documented in this encounter Visit Diagnoses Diagnosis Other B-complex deficiencies- Primary documented in this encounter Care Teams Cpas Relationship Specialty Start Date End Date Alexandria Peñaloza MD PCP - General 03/26/10 07/24/20 Kristy Castrejon MD PCP - General Internal Medicine 07/25/20 Alexandria Peñaloza MD PCP - General Internal Medicine 11/21/20 05/13/22 Tom White [address] [place] [address] PCP - General Internal Medicine 05/14/22 10/06/22 Marisela Goodrich MD [address] [place] [address] PCP - General Internal Medicine 10/07/22 documented as of this encounter
--- OUTSIDE RECORDS SUMMARY | 2024-12-14 10:34 | XMS_ITS | Encounter Summary ---
Author Organization [facility] Address [address] [place] [address] Care Team Providers Care Speech And Language Specialist Name Role Phone Alexandria Peñaloza MD Primary Care Provider Unava Kristy Rush MD Primary Care Provider Un available Alexandria Peñaloza MD Primary Care Provider Soniava Tom Booker Primary Care Provider [phone] Marisela Goodrich MD Primary Care Provider + Encounter Details Date Type Department Care Team Description 08/21/2019 Release of Information Medical Records [address] [place] [address] Abstract, Provider Social History Tobacco Use Types Packs/Day Years Used Date Smoking Tobacco: Former Cigarettes 0.3 7 Q uit: 01/14/2019 Smokeless Tobacco: Never Alcohol Use Standard [...] on filedocumented in this encounter Care Teams Speech And Language Specialist Relationship Specialty Start Date End Date Alexandria Peñaloza MD PCP - General 03/26/10 07/24/20 Kristy Castrejon MD PCP - General Internal Medicine 07/25/20 1 Alexandria Peñaloza MD PCP - General Internal Medicine 11/21/20 05/13/22 Tom White [address] [place] [address] PCP - General Internal Medicine 05/14/22 10/06/22 Marisela Goodrich MD [address] [place] [address] PCP - General Internal Medicine 10/07/22 documented as of this encounter
--- OUTSIDE RECORDS SUMMARY | 2024-12-14 10:34 | XMS_ITS | Encounter Summary ---
Author Organization [facility] Address [address] [place] [address] Care Team Providers Care Anchorer Name Role Phone Alexandria Peñaloza MD Primary Care Provider Unava Kristy Rush MD Primary Care Provider Un available Alexandria Peñaloza MD Primary Care Provider Unava ilTom Toscano Primary Care Provider [phone] Marisela Goodrich MD Primary Care Provider + Encounter Details Date Type Department Care Team Description 01/29/2017 Data Governance Consultant Report Medical Records [address] [place] [id number] Stephen Reynolds MD Social History Tobacco Use [...] on filedocumented in this encounter Care Teams Anchorer Relationship Specialty Start Date End Date Alexandria Peñaloza MD PCP - General 03/26/10 07/24/20 Kristy Castrejon MD PCP - General Internal Medicine 07/25/20 1 Alexandria Peñaloza MD PCP - General Internal Medicine 11/21/20 05/13/22 Tom White [address] [place] [address] PCP - General Internal Medicine 05/14/22 10/06/22 Marisela Goodrich MD [address] [place] [address] PCP - General Internal Medicine 10/07/22 documented as of this encounter
--- OUTSIDE RECORDS SUMMARY | 2024-12-14 10:34 | XMS_ITS | Encounter Summary ---
Author Organization [facility] Address [address] [place] [address] Care Team Providers Care Tire Fabric Impregnating Range Tender Name Role Phone Alexandria Peñaloza MD Primary Care Provider Unava Kristy Rush MD Primary Care Provider Un available Alexandria Peñaolza MD Primary Care Provider Unava Tom Booker Primary Care Provider [phone] Marisela Goodrich MD Primary Care Provider + Encounter Details Date Type Department Care Team Description 08/31/2019 [facility] Medical Records [address] [place] [id number] [place] [address] Social History Tobacco Use Types Packs/Day Years [...] on filedocumented in this encounter Care Teams Tire Fabric Impregnating Range Tender Relationship Specialty Start Date End Date Alexandria Peñaloza MD PCP - General 03/26/10 07/24/20 Kristy Castrejon MD PCP - General Internal Medicine 07/25/20 1 Alexandria Peñaloza MD PCP - General Internal Medicine 11/21/20 05/13/22 Tom White [address] [place] [address] PCP - General Internal Medicine 05/14/22 10/06/22 Marisela Goodrich MD [address] [place] [address] PCP - General Internal Medicine 10/07/22 documented as of this encounter
--- OUTSIDE RECORDS SUMMARY | 2024-12-14 10:34 | XMS_ITS | Encounter Summary ---
Author Organization [facility] Address [address] [place] [address] Care Team Providers Care Business Account Executive Name Role Phone Alexandria Peñaloza MD Primary Care Provider Unava Kristy Rush MD Primary Care Provider Un available Alexandria Peñaloza MD Primary Care Provider Unava ilTom Toscano Primary Care Provider [phone] Marisela Goodrich MD Primary Care Provider + Encounter Details Date Type Department Care Team Description 06/21/2019 Chief Of Planning Report Medical Records [address] [place] [address] João Bahena MD Social History Tobacco Use Types Packs/Day [...] on filedocumented in this encounter Care Teams Business Account Executive Relationship Specialty Start Date End Date Alexandria Peñaloza MD PCP - General 03/26/10 07/24/20 Kristy Castrejon MD PCP - General Internal Medicine 07/25/20 1 Alexandria Peñaloza MD PCP - General Internal Medicine 11/21/20 05/13/22 Tom White [address] [place] [address] PCP - General Internal Medicine 05/14/22 10/06/22 Marisela Goodrich MD [address] [place] [address] PCP - General Internal Medicine 10/07/22 documented as of this encounter
--- OUTSIDE RECORDS SUMMARY | 2024-12-14 10:34 | XMS_ITS | Encounter Summary ---
Author Organization [facility] Address [address] [place] [address] Care Team Providers Care Insurance Claims Clerk Name Role Phone Alexandria Peñaloza MD Primary Care Provider Unava Kristy Rush MD Primary Care Provider Un available Alexandria Peñaloza MD Primary Care Provider Unava Tom Booker Primary Care Provider [phone] Marisela Goodrich MD Primary Care Provider + Reason for Visit * Reason Onset Date Comments medication problems 09/14/2019 Encounter Details Date Type Department Care Team Description 09/14/2019 Telephone Medicine/Pediatrics - [address] [address] Alexandria Peñaloza MD medication problems Social History Tobacco Use Types Packs/Day Years [...] Telephone Encounter - Alexandria Peñaloza MD - 09/14/2019 4:54 PM EDT I will try straight promethazine liquid. Don't know if it will be covered. Rx sent. Other option would be a suppository if does not tolerate tabs. (pt cancelled hosp f/u today) * Telephone Encounter - Gale Mendoza L.P.N. - 09/14/2019 4:00 PM EDT Please advise * Telephone Encounter - Danica Matthews - 09/14/2019 3:50 PM EDT Who is calling? [facility] Name of the medication promethazine-phenylephrine 6.25-5 MG/5ML syrup What is the specific problem or interaction? Alternative requested, not available If the patient is having a problem with taking the med - how long has the problem been going on? N/A documented in this encounter Plan of Treatment Not on file documented as of this encounter Visit Diagnoses Not on filedocumented in this encounter Care Teams Insurance Claims Clerk Relationship Specialty Start Date End Date Alexandria Peñaloza MD PCP - General 03/26/10 07/24/20 Kristy Castrejon MD PCP - General Internal Medicine 07/25/20 1 Alexandria Peñaloza MD PCP - General Internal Medicine 11/21/20 05/13/22 Tom White [address] [place] [address] PCP - General Internal Medicine 05/14/22 10/06/22 Marisela Goodrich MD [address] [place], [place] [id number] PCP - General Internal Medicine 10/07/22 documented as of this encounter
--- OUTSIDE RECORDS SUMMARY | 2024-12-14 10:34 | XMS_ITS | Encounter Summary ---
Author Organization [facility] Address [address] [place] [address] Care Team Providers Care Human Resources Director Name Role Phone Alexandria Peñaloza MD Primary Care Provider Unava Kristy Rush MD Primary Care Provider Un available Alexandria Peñaloza MD Primary Care Provider Unava ilable Tom White Primary Care Provider [phone] Marisela Goodrich MD Primary Care Provider + Reason for Visit * Reason Comments E-prescribe Rx Request Encounter Details Date Type Department Care Team Description 03/23/2014 Refill Medicine/Pediatrics - [address] [phone] Alexandria Peñaloza MD E-prescribe Rx Request Social [...] encounter Miscellaneous Notes * Telephone Encounter - Ligia Garcia M.A. - 03/23/2014 2:18 PM EDT Pt has ov scheduled 05/13/14 * Telephone Encounter - Noemi [place] - 03/23/2014 1:46 PM EDT Patient would like script to be: E-PRESCRIBED/FAXED TO PHARMACY WHEN WAS THE PATIENT'S LAST APPOINTMENT IN ADULT MEDICINE? 03/15/14 WHEN WAS THE LAST TIME THE PATIENT SAW THEIR PCP? 11/15/13 Does patient have an upcoming appointment? Yes 05/13/14 (THE MEDICATION REQUESTED IS ON THE MED LIST ABOVE) All of the medications requested were on the CURRENT MEDS list Did you check the Pharmacy information above?: YES Patient wants: 30 -day supply Is this a mail order prescription request ? NO Patients current insurance carrier is: Pay[place] Plan: MEDICAID [facility] Product Type: MEDICAIDFEE-FOR-SERVICE documented in this encounter Plan of Treatment Not on file documented as of this encounter Visit Diagnoses Not on filedocumented in this encounter Care Teams Human Resources Director Relationship Specialty Start Date End Date Alexandria Peñaloza MD PCP - General 03/26/10 07/24/20 Kristy Castrejon MD PCP - General Internal Medicine 07/25/20 1 Alexandria Peñaloza MD PCP - General Internal Medicine 11/21/20 05/13/22 Tom White [address] [place] [address] PCP - General Internal Medicine 05/14/22 10/06/22 Marisela Goodrich MD [address] [place] [id number] PCP - General Internal Medicine 10/07/22 documented as of this encounter
--- OUTSIDE RECORDS SUMMARY | 2024-12-14 10:34 | XMS_ITS | Encounter Summary ---
Author Organization [facility] Address [address] [place] [address] Care Team Providers Care Staff Pharmacist Name Role Phone Alexandria Peñaloza MD Primary Care Provider Unava Kristy Rush MD Primary Care Provider Un available Alexandria Peñaloza MD Primary Care Provider Unava Tom Booker Primary Care Provider [phone] Marisela Goodrich MD Primary Care Provider + Encounter Details Date Type Department Care Team Description 09/02/2019 [facility] Medical Records [address] [place] [id number] Beatriz Farrell NP Social History Tobacco Use Types Packs/Day Years [...] on filedocumented in this encounter Care Teams Staff Pharmacist Relationship Specialty Start Date End Date Alexandria Peñaloza MD PCP - General 03/26/10 07/24/20 Kristy Castrejon MD PCP - General Internal Medicine 07/25/20 1 Alexandria Peñaloza MD PCP - General Internal Medicine 11/21/20 05/13/22 Tom White [address] [place] [address] PCP - General Internal Medicine 05/14/22 10/06/22 Marisela Goodrich MD [address] [place] [address] PCP - General Internal Medicine 10/07/22 documented as of this encounter
--- OUTSIDE RECORDS SUMMARY | 2024-12-14 10:34 | XMS_ITS | Encounter Summary ---
Author Organization [facility] Address [address] [place] [address] Care Team Providers Care Grades 1 Through 5 Teacher Name Role Phone Alexandria Peñaloza MD Primary Care Provider Unava Kristy Rush MD Primary Care Provider Un available Alexandria Peñaloza MD Primary Care Provider Unava ilable Tom White Primary Care Provider [phone] Marisela Goodrich MD Primary Care Provider + Reason for Referral * EXTERNAL (Routine) - Authorized/Booked Specialty Diagnoses / Procedures Referred By Contact Referred To Contact Obstetrics/Gynecology / Obstetrics & Gynecology Procedures REFERRAL TO OBSTETRICS & GYNECOLOGY Alexandria Peñaloza MD [address] [place] [address] [facility] [address] [place] [id number] Referral ID Status Reason Start Date Expiration Date V isits Requested Visits Authorized SEE NOTE Authorized/B ooked 04/18/2017 07/25/2017 1 1 Reason for Visit * Reason Onset Date Comments Automobile Appraiser Feedback 04/18/2017 MYKEL ORANTES Encounter Details Date Type Department Care Team Description 04/18/2017 Telephone Medicine/Pediatrics - [address] [phone] Alexandria Peñaloza MD Automobile Appraiser Feedback (MYKEL ORANTES) Social History Tobacco Use Types Packs/Day Years [...] encounter Miscellaneous Notes * Telephone Encounter - Dary Torrez - 04/24/2017 11:44 AM EDT Pts call came into [facility] pt services. Explained to pt about her [place] health coverage and that she is now assigned to the [facility] via the PCC plan. Pt understands and will call today to get coverage fixed-switching to one of the plans we take. Pt will call back on with new ins info as takes 2 business days to change plans. * Telephone Encounter - Radha Yoder - 04/18/2017 4:40 PM EDT Please review this patients new referral request. The referral has been pended. Please complete thefollowing: If approved> sign order If denied>please give instructions and route to your practice nursing pool. Practice nurse should inform referrals and the patient if denied. * Telephone Encounter - Kendra Samuels - 04/18/2017 4:23 PM EDT What insurance does the patient have today? Payor[place] / Plan: MEDICAID [place] / Product Type:MEDICAID [id number] Effective 08/17/09: BCBS will not retro referral [...] insurance must be obtained and registered in [facility] or their referral can not be processed. Is this a retro request? NO. If yes for what date of service do you need the retro referral? N/A Who is calling to request this referral? MYKEL CORRIGAN SORTING MACHINE ATTENDANT If the caller is not the patient, what is their name? N/A Ask the patient WHO referred them to this specialty: Patient self referred FIRST and LAST NAME of SPECIALIST PATIENT is seeing: MYKEL CORRIGAN OBGYFeroz What specialty is this? OBGYN DIAGNOSIS Patient is being seen for (Not a body part or a procedure): CHECK IUD Have you seen this SPECIALIST for this PROBLEM/DX before?NO If YES, when: Have you checked REVIEW or the APPT DESK to see if this referral has already been done or has visits left? YES Is this visit:Initial Visit Address of Specialist:[address] [place] [address] Phone # of Specialist:[phone] Fax #: (if applicable):[phone] Does patient have an appointment scheduled?: YES Date of appointment- (including a retro-request): 04/21/17 Is this appointment related to: Not MVA, WC or Surgery related documented in this encounter Plan of Treatment Not on file documented as of this encounter Visit Diagnoses Not on filedocumented in this encounter Care Teams Grades 1 Through 5 Teacher Relationship Specialty Start Date End Date Alexandria Peñaloza MD PCP - General 03/26/10 07/24/20 Kristy Castrejon MD PCP - General Internal Medicine 07/25/20 1 Alexandria Peñaloza MD PCP - General Internal Medicine 11/21/20 05/13/22 Tom White [address] [place] [address] PCP - General Internal Medicine 05/14/22 10/06/22 Marisela Goodrich MD [address] [place] [address] PCP - General Internal Medicine 10/07/22 documented as of this encounter
--- OUTSIDE RECORDS SUMMARY | 2024-12-14 10:34 | XMS_ITS | Encounter Summary ---
Author Organization [facility] Address [address] [place] [address] Care Team Providers Care Dieing Out Machine Operator Name Role Phone Alexandria Peñaloza MD Primary Care Provider Unava Kristy Rush MD Primary Care Provider Un available Alexandria Peñaloza MD Primary Care Provider Soniava Tom Booker Primary Care Provider [phone] Marisela Goodrich MD Primary Care Provider + Encounter Details Date Type Department Care Team Description 06/04/2017 [facility] Medical Records [address] [place] [id number] Abstract, Provider Social History Tobacco Use Types [...] on filedocumented in this encounter Care Teams Dieing Out Machine Operator Relationship Specialty Start Date End Date Alexandria Peñaloza MD PCP - General 03/26/10 07/24/20 Kristy Castrejon MD PCP - General Internal Medicine 07/25/20 1 Alexandria Peñaloza MD PCP - General Internal Medicine 11/21/20 05/13/22 Tom White [address] [place] [address] PCP - General Internal Medicine 05/14/22 10/06/22 Marisela Goodrich MD [address] [place] [address] PCP - General Internal Medicine 10/07/22 documented as of this encounter
--- OUTSIDE RECORDS SUMMARY | 2024-12-14 10:34 | XMS_ITS | Encounter Summary ---
Author Organization [facility] Address [address] [place] [address] Care Team Providers Care Milk Condenser Name Role Phone Alexandria Peñaloza MD Primary Care Provider Unava Kristy Rush MD Primary Care Provider Un available Alexandria Peñaloza MD Primary Care Provider Soniava Tom Booker Primary Care Provider [phone] Marisela Goodrich MD Primary Care Provider + Encounter Details Date Type Department Care Team Description 06/30/2017 [facility] Medical Records [address] [place] [id number] Abstract, Provider Social History Tobacco Use Types [...] filedocumented in this encounter Care Teams Milk Condenser Relationship Specialty Start Date End Date Alexandria Peñaloza MD PCP - General 03/26/10 07/24/20 Kristy Castrejon MD PCP - General Internal Medicine 07/25/20 1 Alexandria Peñaloza MD PCP - General Internal Medicine 11/21/20 05/13/22 Tom White [address] [place] [address] PCP - General Internal Medicine 05/14/22 10/06/22 Marisela Goodrich MD [address] [place] [address] PCP - General Internal Medicine 10/07/22 documented as of this encounter
--- OUTSIDE RECORDS SUMMARY | 2024-12-14 10:34 | XMS_ITS | Encounter Summary ---
Author Organization [facility] Address [address] [place] [address] Care Team Providers Care Credit Adjuster Name Role Phone Alexandria Peñaloza MD Primary Care Provider Unava Kristy Rush MD Primary Care Provider Un available Alexandria Peñaloza MD Primary Care Provider Unava Tom Booker Primary Care Provider [phone] Marisela Goodrich MD Primary Care Provider + Reason for Visit * Reason Onset Date Comments REFERRAL 07/31/2017 Encounter Details Date Type Department Care Team Description 07/31/2017 Telephone Physiatry - [address] [address] Brad Coombs DO REFERRAL Social History Tobacco Use Types Packs/Day Years [...] Miscellaneous Notes * Telephone Encounter - Ruthy Painting - 07/31/2017 10:10 AM EDT Patient is referred to: physiatry. Reason for referral: lumbar radiculitis and paresthesias; ? Injection; DDD an stenosis FYI Patient has a back stimulator and needs to get her MRI done. The stimulator will be shut off for the MRI, then she needs to have it put back on. I spoke with the patient and her MRI at [facility] is still not scheduled. Patient also states she might go to [facility] for this referral. Patient will get back to us if she wants to schedule an appointment documented in this encounter Plan of Treatment Not on file documented as of this encounter Visit Diagnoses Not on filedocumented in this encounter Care Teams Credit Adjuster Relationship Specialty Start Date End Date Alexandria Peñaloza MD PCP - General 03/26/10 07/24/20 Kristy Castrejon MD PCP - General Internal Medicine 07/25/20 1 Alexandria Peñaloza MD PCP - General Internal Medicine 11/21/20 05/13/22 Tom White [address] [place] [address] PCP - General Internal Medicine 05/14/22 10/06/22 Marisela Goodrich MD [address] [place] [address] PCP - General Internal Medicine 10/07/22 documented as of this encounter
--- OUTSIDE RECORDS SUMMARY | 2024-12-14 10:34 | XMS_ITS | Encounter Summary ---
Author Organization [facility] Address [address] [place] [address] Care Team Providers Care Car Sales Consultant Name Role Phone Alexandria Peñaloza MD Primary Care Provider Kristy Milan MD Primary Care Provider Un available Alexandria Peñaloza MD Primary Care Provider Soniava Tom Booker Primary Care Provider Marisela Goodrich MD Primary Care Provider + Encounter Details Date Type Department Care Team Description 08/03/2019 [facility] Medical Records [address] [place] [address] Social History Tobacco Use Types Packs/Day Years [...] filedocumented in this encounter Care Teams Car Sales Consultant Relationship Specialty Start Date End Date Alexandria Peñaloza MD PCP - General 03/26/10 07/24/20 Kristy Castrejon MD PCP - General Internal Medicine 07/25/20 1 Alexandria Peñaloza MD PCP - General Internal Medicine 11/21/20 05/13/22 Tom White [address] [place] [address] PCP - General Internal Medicine 05/14/22 10/06/22 Marisela Goodrich MD [address] [place] [address] PCP - General Internal Medicine 10/07/22 documented as of this encounter
--- OUTSIDE RECORDS SUMMARY | 2024-12-14 10:34 | XMS_ITS | Encounter Summary ---
Author Organization [facility] Address [address] [place] [address] Care Team Providers Care Environmental Monitoring Specialist Name Role Phone Alexandria Peñaloza MD Primary Care Provider Tom Jane Primary Care Provider [phone] Marisela Goodrich MD Primary Care Provider + Reason for Visit * Reason Onset Date Comments URI Symptoms 09/05/2021 sinus infection 09/05/2021 Wheezing 09/05/2021 Encounter Details Date Type Department Care Team Description 09/05/2021 Telephone Medicine/Pediatrics - [address] [phone] Alexandria Peñaloza MD URI Symptoms; sinus infection; Wheezing Social History Tobacco Use Types Packs/Day Years [...] encounter Miscellaneous Notes * Telephone Encounter - Mary Baker Rn - 09/05/2021 11:27 AM EDT Spoke to pt. feeling sick for a week, was seen in the er , At [facility] on Friday09/02/21 covid and flu testing was negative, rsv neg Using her inhaler, and prednisone, 40 mg daily today last day , Today is Day 8 , feeling worse, coughing fits and wheezing, to the point where she vomits, Doing steamy showers, vicks , tried otc, prior to the er, exhausted When she takes deep breath it feels as if her chest is rattling Chest xray was done , no pneumonia , coughing non stop telehealth appt booked , Triaged with advice, if symptoms worsen or increase sob to return to the er pt agreed Notes to be printed for provider * Telephone Encounter - Milagros Chino - 09/05/2021 11:17 AM EDT Symptoms patient is presenting: wheezing, congestion, cough, sinus pressure waqs at [facility] 3 daysago - no relief from prednisone or albuterol For ALL patients calling to schedule any appointment (routine, sick visit, follow up, consult, etc.) in the outpatient setting please ask the following questions: ?? Do you have fever of higher than 101, sore throat with difficulty swallowing or severe shortnessof breath? NO If YES to any of these above symptoms, send a message to triage and do not book. Red dot. If no, an audio or video visit should be booked. ?? Have you had close contact with someone with Coronavirus in the last 14 days? NO ?? Have you traveled abroad? NO ?? Have you traveled recently to another state outside of [place], [place], [place], [place], [place], [place], [place]? NO o If yes, did you quarantine for 14 days or have a negative covid test? NO If yes to any of the above, patient is not to be scheduled in office until after 14 day quarantine or negative covid test. If pain or injury related was it due to an accident at work or from a motor vehicle accident? NO If yes, gather 3rd democrat insurance information Date of accident/Injury: How long has patient had these symptoms?: 7 days PCP: Alexandria Peñaloza Payor: KARMA emere FFS / Plan: [employer] / Product Type: MEDICAID RISK documented in this encounter Plan of Treatment Not on file documented as of this encounter Visit Diagnoses Not on filedocumented in this encounter Care Teams Environmental Monitoring Specialist Relationship Specialty Start Date End Date Alexandria Peñaloza MD PCP - General Internal Medicine 11/21/20 05/13/22 Tom White [address] [place] [address] PCP - General Internal Medicine 05/14/22 10/06/22 Marisela Goodrich MD [address] [place] [address] PCP - General Internal Medicine 10/07/22 documented as of this encounter
--- OUTSIDE RECORDS SUMMARY | 2024-12-14 10:34 | XMS_ITS | Encounter Summary ---
Author Organization [facility] Address [address] [place] [address] Care Team Providers Care Railroad Signal Operator Name Role Phone Alexandria Peñaloza MD Primary Care Provider Unava Kristy Rush MD Primary Care Provider Un available Alexandria Peñaloza MD Primary Care Provider Unava Tom Booker Primary Care Provider [phone] Marisela Goodrich MD Primary Care Provider + Encounter Details Date Type Department Care Team Description 06/26/2019 [facility] Medical Records [address] [place] [address] João Bahena MD Social History Tobacco Use [...] on filedocumented in this encounter Care Teams Railroad Signal Operator Relationship Specialty Start Date End Date Alexandria Peñaloza MD PCP - General 03/26/10 07/24/20 Kristy Castrejon MD PCP - General Internal Medicine 07/25/20 1 Alexandria Peñaloza MD PCP - General Internal Medicine 11/21/20 05/13/22 Tom White [address] [place] [address] PCP - General Internal Medicine 05/14/22 10/06/22 Marisela Goodrich MD [address] [place] [address] PCP - General Internal Medicine 10/07/22 documented as of this encounter
--- OUTSIDE RECORDS SUMMARY | 2024-12-14 10:34 | XMS_ITS | Encounter Summary ---
Author Organization [facility] Address [address] [place] [address] Care Team Providers Care Tannery Gummer Name Role Phone Alexandria Peñaloza MD Primary Care Provider Unava Kristy Rush MD Primary Care Provider Un available Alexandria Peñaloza MD Primary Care Provider Unava Tom Booker Primary Care Provider [phone] Marisela Goodrich MD Primary Care Provider + Encounter Details Date Type Department Care Team Description 09/08/2019 Refill Medicine/Pediatrics - [address] [address] Alexandria Peñaloza MD Social History Tobacco Use [...] encounter Miscellaneous Notes * Telephone Encounter - Missy Boyer M.A. - 09/09/2019 5:11 PM EDT Rx put in PPU. * Telephone Encounter - Ligia Garcia M.A. - 09/09/2019 10:02 AM EDT Pt scheduled for PC 01/2020. MyChart message to patient to schedule follow up appointment sooner. No CSC for Valium. Last RX 07/07/19 #10. 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 Last RX B12 07/21/19 #1 5R. That request refused and noted in MyChart message to patient. CSC reviewed. Last RX Oxy 08/03/19. Pt due for refill. [facility] printed - to provider. Does not needto be scanned. Lab Results Component Value Date URBENZO NONE DETECTED 04/14/2019 UROPIATES NONE DETECTED 04/14/2019 URBARBITUATE NONE DETECTED 04/14/2019 PAINAMPHETAM NONE DETECTED 04/14/2019 URAMPHETAMIN NEGATIVE 11/06/2017 PAINCOCAINE NONE DETECTED 04/14/2019 URCOCAINE NEGATIVE 11/06/2017 PAINCANNABIN NONE DETECTED 04/14/2019 URMARIJUANA NEGATIVE 11/06/2017 * Telephone Encounter - Ligia Garcia M.A. - 09/09/2019 9:59 AM EDTFrom: Sandy Santana To: Alexandria Peñaloza MD Sent: 09/08/2019 11:34 PM EDT Subject: Medication Renewal Request Original authorizing provider: MD Sandy Dozier would like a refill of the following medications: diazepam (VALIUM) 2 MG tablet [Alexandria Peñaloza MD] cyanocobalamin 1000 MCG/ML injection [Alexandria Peñaloza MD] oxycodone (ROXICODONE) 5 MG immediate release tablet [Alexandria Peñaloza MD] promethazine-phenylephrine 6.25-5 MG/5ML syrup [Alexandria Peñaloza MD] Preferred pharmacy: [id number] Comment: documented in this encounter Plan of Treatment Not on file documented as of this encounter Visit Diagnoses Diagnosis Fibromyalgia Mylagia and myositis, unspecified Vitamin B12 deficiency Other B-complex deficiencies documented in this encounter Care Teams Tannery Gummer Relationship Specialty Start Date End Date Alexandria Peñaloza MD PCP - General 03/26/10 07/24/20 Kristy Castrejon MD PCP - General Internal Medicine 07/25/20 Alexandria Peñaloza MD PCP - General Internal Medicine 11/21/20 05/13/22 Tom White [address] [place] [id number] PCP - General Internal Medicine 05/14/22 10/06/22 Marisela Goodrich MD [address] [place] [address] PCP - General Internal Medicine 10/07/22 documented as of this encounter
--- OUTSIDE RECORDS SUMMARY | 2024-12-14 10:34 | XMS_ITS | Encounter Summary ---
Author Organization [facility] Address [address] [place] [address] Care Team Providers Care Land Surveying Survey Worker Name Role Phone Alexandria Peñaloza MD Primary Care Provider Unava Kristy Rush MD Primary Care Provider Un available Alexandria Peñaloza MD Primary Care Provider Unava Tom Booker Primary Care Provider [phone] Marisela Goodrich MD Primary Care Provider + Encounter Details Date Type Department Care Team Description 04/08/2017 Hospital Medical Records [address] [place] [address] Amberly Mayo Social History Tobacco Use Types Packs/Day Years [...] on filedocumented in this encounter Care Teams Land Surveying Survey Worker Relationship Specialty Start Date End Date Alexandria Peñaloza MD PCP - General 03/26/10 07/24/20 Kristy Castrejon MD PCP - General Internal Medicine 07/25/20 1 Alexandria Peñaloza MD PCP - General Internal Medicine 11/21/20 05/13/22 Tom White [address] [place] [address] PCP - General Internal Medicine 05/14/22 10/06/22 Marisela Goodrich MD [address] [place] [address] PCP - General Internal Medicine 10/07/22 documented as of this encounter
--- OUTSIDE RECORDS SUMMARY | 2024-12-14 10:34 | XMS_ITS | Encounter Summary ---
Author Organization [facility] Address [address] [place] [address] Care Team Providers Care Account Consultant Name Role Phone Alexandria Peñaloza MD Primary Care Provider Unava Kristy Rush MD Primary Care Provider Un available Alexandria Peñaloza MD Primary Care Provider Unava Tom Booker Primary Care Provider [phone] Marislea Goodrich MD Primary Care Provider + Encounter Details Date Type Department Care Team Description 06/21/2015 Pt. Non Urgent Medic al Question Physiatry - [address] [address] Brad Coombs DO Social History Tobacco Use Types Packs/Day Years [...] as of this encounter Progress Notes * Erik Lester M.A. - 06/22/2015 10:24 AM EDTFrom: Sandy Santana To: Brad Coombs DO Sent: 06/21/2015 6:42 PM EDT Subject: mri results questions? Could the numbness and burning I've experienced be my fibromyalgia? Also, the other component of mypain is my spine, what does the results of the MRI mean? I have a follow up with you in July, do you want me to still keep that appointment? what should, and can I do for my back pain Sandy Santana documented in this encounter Plan of Treatment Not on file documented as of this encounter Visit Diagnoses Not on filedocumented in this encounter Care Teams Account Consultant Relationship Specialty Start Date End Date Alexandria Peñaloza MD PCP - General 03/26/10 07/24/20 Kristy Castrejon MD PCP - General Internal Medicine 07/25/20 1 Alexandria Peñaloza MD PCP - General Internal Medicine 11/21/20 05/13/22 Tom White [address] [place] [address] PCP - General Internal Medicine 05/14/22 10/06/22 Marisela Goodrich MD [address] [place] [address] PCP - General Internal Medicine 10/07/22 documented as of this encounter
--- OUTSIDE RECORDS SUMMARY | 2024-12-14 10:34 | XMS_ITS | Encounter Summary ---
Author Organization [facility] Address [address] [place] [address] Care Team Providers Care Terminologist Name Role Phone Alexandria Peñaloza MD Primary Care Provider Unava Kristy Rush MD Primary Care Provider Un available Alexandria Peñaloza MD Primary Care Provider Soniava Tom Booker Primary Care Provider Marisela Goodrich MD Primary Care Provider + Encounter Details Date Type Department Care Team Description 04/08/2017 Priming Mixture Carrier Report Medical Records [address] [place] [address] Marcus Cisneros Social History Tobacco Use Types Packs/Day Years [...] on filedocumented in this encounter Care Teams Terminologist Relationship Specialty Start Date End Date Alexandria Peñaloza MD PCP - General 03/26/10 07/24/20 Kristy Castrejon MD PCP - General Internal Medicine 07/25/20 1 Alexandria Peñaloza MD PCP - General Internal Medicine 11/21/20 05/13/22 Tom White [address] [place] [address] PCP - General Internal Medicine 05/14/22 10/06/22 Marisela Goodrich MD [address] [place] [address] PCP - General Internal Medicine 10/07/22 documented as of this encounter
--- OUTSIDE RECORDS SUMMARY | 2024-12-14 10:34 | XMS_ITS | Encounter Summary ---
Author Organization [facility] Address [address] [place] [address] Care Team Providers Care Product Specialist Name Role Phone Alexandria Peñaloza MD Primary Care Provider Unava Kristy Rush MD Primary Care Provider Un available Alexandria Peñaloza MD Primary Care Provider Unava Tom Booker Primary Care Provider Marisela Goodrich MD Primary Care Provider + Reason for Visit * Reason Onset Date Comments E-prescribe Rx Request 01/08/2017 Encounter Details Date Type Department Care Team Description 01/08/2017 Refill Medicine/Pediatrics - [address] [phone] Alexandria Peñaloza MD E-prescribe Rx Request Social [...] Telephone Encounter - Luanne Kowalski R.N. - 01/08/2017 1:29 PM EST Letter sent to schedule annual exam * Telephone Encounter - Mavis Oh - 01/08/2017 1:17 PM EST Patient would like script to be: E-PRESCRIBED/FAXED TO PHARMACY WHEN WAS THE PATIENT'S LAST APPOINTMENT IN ADULT MEDICINE? 10/30/2016 WHEN WAS THE LAST TIME THE PATIENT SAW THEIR PCP? Does patient have an upcoming appointment? Yes 02/10/2017 (THE MEDICATION REQUESTED IS ON THE MED LIST ABOVE) All of the medications requested were on the CURRENT MEDS list Did you check the Pharmacy information above?: NO Patient wants: 30 -day supply Is this a mail order prescription request ? NO Patients current insurance carrier is: Payor: [place] / Plan: MEDICAID P[place] / Product Type: MEDICAID [id number] documented in this encounter Plan of Treatment Not on file documented as of this encounter Visit Diagnoses Diagnosis Menorrhagia with regular cycle- Primary Excessive or frequent menstruation documented in this encounter Care Teams Product Specialist Relationship Specialty Start Date End Date Alexandria Peñaloza MD PCP - General 03/26/10 07/24/20 Kristy Castrejon MD PCP - General Internal Medicine 07/25/20 1 Alexandria Peñaloza MD PCP - General Internal Medicine 11/21/20 05/13/22 Tom White [address] [place] [address] PCP - General Internal Medicine 05/14/22 10/06/22 Marisela Goodrich MD [address] [place] [address] PCP - General Internal Medicine 10/07/22 documented as of this encounter
--- OUTSIDE RECORDS SUMMARY | 2024-12-14 10:34 | XMS_ITS | Encounter Summary ---
Author Organization [facility] Address [address] [place] [address] Care Team Providers Care Noise Tester Name Role Phone Alexandria Peñaloza MD Primary Care Provider Tom Jane Primary Care Provider Marisela Goodrich MD Primary Care Provider + Encounter Details Date Type Department Care Team Description 07/09/2021 [facility] Medical Records [address] [place] [address] Abstract, Provider Social History Tobacco Use Types [...] have Coronavirus / COVID-19? No / Unsure 06/18/2021 1:15 PM EDT documented as of this encounter Plan of Treatment Not on file documented as of this encounter Visit Diagnoses Not on filedocumented in this encounter Care Teams Noise Tester Relationship Specialty Start Date End Date Alexandria Peñaloza MD PCP - General Internal Medicine 11/21/20 05/13/22 Tom White [address] [place], [place] [id number] PCP - General Internal Medicine 05/14/22 10/06/22 Marisela Goodrich MD [address] [place] [address] PCP - General Internal Medicine 10/07/22 documented as of this encounter
--- OUTSIDE RECORDS SUMMARY | 2024-12-14 10:34 | XMS_ITS | Encounter Summary ---
Author Organization [facility] Address [address] [place] [address] Care Team Providers Care Computer Forensics Technician Name Role Phone Alexandria Peñaloza MD Primary Care Provider Unava Kristy Rush MD Primary Care Provider Un available Alexandria Peñaloza MD Primary Care Provider Unava Tom Booker Primary Care Provider [phone] Marisela Goodrich MD Primary Care Provider + Encounter Details Date Type Department Care Team Description 05/04/2014 [facility] Medical Records [address] [place] [address] Sam Leary, DANTE Social History Tobacco Use Types Packs/Day Years [...] on filedocumented in this encounter Care Teams Computer Forensics Technician Relationship Specialty Start Date End Date Alexandria Peñaloza MD PCP - General 03/26/10 07/24/20 Kristy Castrejon MD PCP - General Internal Medicine 07/25/20 1 Alexandria Peñaloza MD PCP - General Internal Medicine 11/21/20 05/13/22 Tom White [address] [place] [address] PCP - General Internal Medicine 05/14/22 10/06/22 Marisela Goodrich MD [address] [place] [address] PCP - General Internal Medicine 10/07/22 documented as of this encounter
--- OUTSIDE RECORDS SUMMARY | 2024-12-14 10:35 | XMS_ITS | Encounter Summary ---
Author Organization [facility] Address [address] [place] [address] Care Team Providers Care Mobile Ui/Ux Designer Name Role Phone Alexandria Peñaloza MD Primary Care Provider Unava Kristy Rush MD Primary Care Provider Un available Alexandria Peñaloza MD Primary Care Provider Unava ilTom Toscano Primary Care Provider [phone] Marisela Goodrich MD Primary Care Provider + Encounter Details Date Type Department Care Team Description 05/05/2012 Coke Drawer Hand Report Medical Records [address] [place] [address] Reji Hensley [address] [place] [address] Social History Tobacco Use Types Packs/Day Years Used Date Smoking Tobacco: Every Day Cigarettes 0.5 7 Smokeless Tobacco: Never Comments:4 cigs a [...] on filedocumented in this encounter Care Teams Mobile Ui/Ux Designer Relationship Specialty Start Date End Date Alexandria Peñaloza MD PCP - General 03/26/10 07/24/20 Kristy Castrejon MD PCP - General Internal Medicine 07/25/20 1 Alexandria Peñaloza MD PCP - General Internal Medicine 11/21/20 05/13/22 Tom White [address] [place] [address] PCP - General Internal Medicine 05/14/22 10/06/22 Marisela Goodrich MD [address] [place] [address] PCP - General Internal Medicine 10/07/22 documented as of this encounter
--- OUTSIDE RECORDS SUMMARY | 2024-12-14 10:35 | XMS_ITS | Encounter Summary ---
Author Organization [facility] Address [address] [place] [address] Care Team Providers Care Transcript Evaluator Name Role Phone Alexandria Peñaloza MD Primary Care Provider Unava Kristy Rush MD Primary Care Provider Un available Alexandria Peñaloza MD Primary Care Provider Unava Tom Booker Primary Care Provider [phone] Marisela Goodrich MD Primary Care Provider + Encounter Details Date Type Department Care Team Description 03/17/2013 Orders Only Medicine/Pediatrics - [address] [phone] Marli Vanessa PA-C Other malaise and fatigue (Primary Dx) Social History Tobacco Use Types Packs/Day Years Used Date Smoking Tobacco: Former Cigarettes 0.3 7 Q uit: 03/04/2013 Smokeless Tobacco: Never Comments:4 cigs a day [...] as of this encounter Visit Diagnoses Diagnosis Other malaise and fatigue- Primary documented in this encounter Care Teams Transcript Evaluator Relationship Specialty Start Date End Date Alexandria Peñaloza MD PCP - General 03/26/10 07/24/20 Kristy Castrejon MD PCP - General Internal Medicine 07/25/20 1 Alexandria Peñaloza MD PCP - General Internal Medicine 11/21/20 05/13/22 Tom White [address] [place] [address] PCP - General Internal Medicine 05/14/22 10/06/22 Marisela Goodrich MD [address] [place] [address] PCP - General Internal Medicine 10/07/22 documented as of this encounter
--- OUTSIDE RECORDS SUMMARY | 2024-12-14 10:35 | XMS_ITS | Encounter Summary ---
Author Organization [facility] Address [address] [place] [address] Care Team Providers Care Wire Mill Operator Name Role Phone Alexandria Peñaloza MD Primary Care Provider Unava Kristy Rush MD Primary Care Provider Un available Alexandria Peñaloza MD Primary Care Provider Unava ilable Tom White Primary Care Provider [phone] Marisela Goodrich MD Primary Care Provider + Encounter Details Date Type Department Care Team Description 03/21/2015 Juke Box Servicer Report Medical Records [address] [place] [address] Peter Matias MD Social History Tobacco Use Types Packs/Day [...] on filedocumented in this encounter Care Teams Wire Mill Operator Relationship Specialty Start Date End Date Alexandria Peñaloza MD PCP - General 03/26/10 07/24/20 Kristy Castrejon MD PCP - General Internal Medicine 07/25/20 1 Alexandria Peñaloza MD PCP - General Internal Medicine 11/21/20 05/13/22 Tom White [address] [place] [address] PCP - General Internal Medicine 05/14/22 10/06/22 Marisela Goodrich MD [address] [place] [address] PCP - General Internal Medicine 10/07/22 documented as of this encounter
--- OUTSIDE RECORDS SUMMARY | 2024-12-14 10:35 | XMS_ITS | Encounter Summary ---
Author Organization [facility] Address [address] [place] [address] Care Team Providers Care Food Sales Clerk Name Role Phone Marisela Goodrich MD Primary Care Provider + Encounter Details Date Type Department Care Team Description 12/27/2022 Refill Medicine/Pediatrics - [address] [address] Alexandria Peñaloza MD Social History Tobacco Use [...] encounter Miscellaneous Notes * Telephone Encounter - Holly Prieto M.A. - 01/01/2023 9:05 AM EST Labs pending to date, sent f/u [facility] message requesting a response. * Telephone Encounter - Robbie Hogan M.A. - 12/28/2022 8:46 PM EST [facility] message to pt- needs to have labs done Last ov 09/24/22 next ov 01/27/23 with pcp - please advise if you will prescribe phenergan prior to meeting pt Lab Results Component Value Date HGBA1C 6.2 11/01/2021 HGBA1C 5.7 02/06/2021 HGBA1C 5.4 11/03/2018 HGBA1C 5.7 09/29/2015 documented in this encounter Plan of Treatment Not on file documented as of this encounter Visit Diagnoses Not on filedocumented in this encounter Care Teams Food Sales Clerk Relationship Specialty Start Date End Date Marisela Goodrich MD [address] [place] [address] PCP - General Internal Medicine 10/07/22 documented as of this encounter
--- OUTSIDE RECORDS SUMMARY | 2024-12-14 10:35 | XMS_ITS | Encounter Summary ---
Author Organization [facility] Address [address] [place] [address] Care Team Providers Care Cannoneer Name Role Phone Alexandria Peñaloza MD Primary Care Provider Unava Kristy Rush MD Primary Care Provider Un available Alexandria Peñaloza MD Primary Care Provider Unava Tom Booker Primary Care Provider [phone] Marisela Goodrich MD Primary Care Provider + Encounter Details Date Type Department Care Team Description 04/28/2013 Completion Supervisor Report Medical Records [address] [place] [address] Sam Tinsley MD Social History Tobacco Use [...] on filedocumented in this encounter Care Teams Cannoneer Relationship Specialty Start Date End Date Alexandria Peñaloza MD PCP - General 03/26/10 07/24/20 Kristy Castrejon MD PCP - General Internal Medicine 07/25/20 1 Alexandria Peñaloza MD PCP - General Internal Medicine 11/21/20 05/13/22 Tom White [address] [place] [address] PCP - General Internal Medicine 05/14/22 10/06/22 Marisela Goodrich MD [address] [place] [address] PCP - General Internal Medicine 10/07/22 documented as of this encounter
--- OUTSIDE RECORDS SUMMARY | 2024-12-14 10:35 | XMS_ITS | Encounter Summary ---
Author Organization [facility] Address [address] [place] [address] Care Team Providers Care Equipment Validation Engineer Name Role Phone Alexandria Peñaloza MD Primary Care Provider Unava Kristy Rush MD Primary Care Provider Un available Alexandria Peñaloza MD Primary Care Provider Unava Tom Booker Primary Care Provider [phone] Marisela Goodrich MD Primary Care Provider + Encounter Details Date Type Department Care Team Description [facility]/10[facility]2019 [facility] [address] [place] [address] Md Adis Social History Tobacco Use Types Packs/Day Years [...] on filedocumented in this encounter Care Teams Equipment Validation Engineer Relationship Specialty Start Date End Date Alexandria Peñaloza MD PCP - General 03/26/10 07/24/20 Krisyt Castrejon MD PCP - General Internal Medicine 07/25/20 1 Alexandria Peñaloza MD PCP - General Internal Medicine 11/21/20 05/13/22 Tom White [address] [place] [address] PCP - General Internal Medicine 05/14/22 10/06/22 Marisela Goodrich MD [address] [place] [address] PCP - General Internal Medicine 10/07/22 documented as of this encounter
--- OUTSIDE RECORDS SUMMARY | 2024-12-14 10:35 | XMS_ITS | Encounter Summary ---
Author Organization [facility] Address [address] [place] [address] Care Team Providers Care Mines Inspector Name Role Phone Alexandria Peñaloza MD Primary Care Provider Unava Kristy Rush MD Primary Care Provider Un available Alexandria Peñaloza MD Primary Care Provider Unava Tom Booker Primary Care Provider [phone] Marisela Goodrich MD Primary Care Provider + Encounter Details Date Type Department Care Team Description 04/06/2015 MANAGER PUBLIC/[facility] Report Medical Records [address] [place] [address] Abstract, Provider Social History Tobacco Use Types [...] on filedocumented in this encounter Care Teams Mines Inspector Relationship Specialty Start Date End Date Alexandria Peñaloza MD PCP - General 03/26/10 07/24/20 Kristy Castrejon MD PCP - General Internal Medicine 07/25/20 1 Alexandria Peñaloza MD PCP - General Internal Medicine 11/21/20 05/13/22 Tom White [address] [place] [address] PCP - General Internal Medicine 05/14/22 10/06/22 Marisela Goodrich MD [address] [place] [address] PCP - General Internal Medicine 10/07/22 documented as of this encounter
--- OUTSIDE RECORDS SUMMARY | 2024-12-14 10:35 | XMS_ITS | Encounter Summary ---
Author Organization [facility] Address [address] [place] [address] Care Team Providers Care Industrial Designer Name Role Phone Alexandria Peñaloza MD Primary Care Provider Unava Kristy Rush MD Primary Care Provider Un available Alexandria Peñaloza MD Primary Care Provider Unava Tom Booker Primary Care Provider [phone] Marisela Goodrich MD Primary Care Provider + Encounter Details Date Type Department Care Team Description 03/18/2013 Orders Only Medicine/Pediatrics - [address] [id number] Marli Vanessa PA-C Other malaise and fatigue [...] Primary documented in this encounter Care Teams Industrial Designer Relationship Specialty Start Date End Date Alexandria Peñaloza MD PCP - General 03/26/10 07/24/20 Kristy Castrejon MD PCP - General Internal Medicine 07/25/20 1 Alexandria Peñaloza MD PCP - General Internal Medicine 11/21/20 05/13/22 Tom White [address] [place] [address] PCP - General Internal Medicine 05/14/22 10/06/22 Marisela Goodrich MD [address] [place] [address] PCP - General Internal Medicine 10/07/22 documented as of this encounter
--- OUTSIDE RECORDS SUMMARY | 2024-12-14 10:35 | XMS_ITS | Encounter Summary ---
Author Organization [facility] Address [address] [place] [address] Care Team Providers Care Avionics System Engineer Name Role Phone Marisela Goodrich MD Primary Care Provider + Encounter Details Date Type Department Care Team Description 01/28/2023 Pt. Non Urgent Medical Question Adult Medicine [address] [address] Tom White [address] [place] [id number] Social History Tobacco Use Types Packs/Day Years [...] Exposure Response Date Recorded In the last 10 days, have yo u been in contact with someone who was confirmed or suspected to have Coronavirus/COVID-19? No / Unsure 01/27/2023 12:45 PM EDT documented as of this encounter Miscellaneous Notes * Telephone Encounter - Isabella Titus - 01/28/2023 11:12 AM EDTFrom: Sandy Santana To: Feroz White Sent: 01/28/2023 11:06 AM EDT Subject: Questions My white cells are high. You said it was due to smoking. I quit 6 months ago. What else could it be? Also if my diabetes is doing bad should I go to insulin every meal? Or is there another option. Or is there oral meds I could do? I also need a new glucose monitor. My current one is broken. Thank you very much.Sandy Santana documented in this encounter Plan of Treatment Not on file documented as of this encounter Visit Diagnoses Not on filedocumented in this encounter Care Teams Avionics System Engineer Relationship Specialty Start Date End Date Marisela Goodrich MD [address] [place] [address] PCP - General Internal Medicine 10/07/22 documented as of this encounter
--- OUTSIDE RECORDS SUMMARY | 2024-12-14 10:35 | XMS_ITS | Encounter Summary ---
Author Organization [facility] Address [address] [place] [address] Care Team Providers Care Career Consultant Name Role Phone Alexandria Peñaloza MD Primary Care Provider Unava Kristy Rush MD Primary Care Provider Un available Alexandria Peñaloza MD Primary Care Provider Unava ilTom Toscano Primary Care Provider [phone] Marisela Goodrich MD Primary Care Provider + Encounter Details Date Type Department Care Team Description 04/12/2012 [facility] Medical Records [address] [place] [address] Yonny Agrawal MD Social History Tobacco Use Types Packs/Day [...] on filedocumented in this encounter Care Teams Career Consultant Relationship Specialty Start Date End Date Alexandria Peñaloza MD PCP - General 03/26/10 07/24/20 Kristy Castrejon MD PCP - General Internal Medicine 07/25/20 1 Alexandria Peñaloza MD PCP - General Internal Medicine 11/21/20 05/13/22 Tom White [address] [place] [address] PCP - General Internal Medicine 05/14/22 10/06/22 Marisela Goodrich MD [address] [place] [address] PCP - General Internal Medicine 10/07/22 documented as of this encounter
--- OUTSIDE RECORDS SUMMARY | 2024-12-14 10:35 | XMS_ITS | Encounter Summary ---
Author Organization [facility] Address [address] [place] [address] Care Team Providers Care Rectifying Operator Name Role Phone Alexandria Peñaloza MD Primary Care Provider Unava Kristy Rush MD Primary Care Provider Un available Alexandria Peñaloza MD Primary Care Provider Unava ilTom Toscano Primary Care Provider [phone] Marisela Goodrich MD Primary Care Provider + Encounter Details Date Type Department Care Team Description 04/18/2015 Hospital Medical Records [address] [place] [id number] Peter Matias MD Social History Tobacco Use [...] on filedocumented in this encounter Care Teams Rectifying Operator Relationship Specialty Start Date End Date Alexandria Peñaloza MD PCP - General 03/26/10 07/24/20 Kristy Castrejon MD PCP - General Internal Medicine 07/25/20 1 Alexandria Peñaloza MD PCP - General Internal Medicine 11/21/20 05/13/22 Tom White [address] [place] [address] PCP - General Internal Medicine 05/14/22 10/06/22 Marisela Goodrich MD [address] [place] [address] PCP - General Internal Medicine 10/07/22 documented as of this encounter
--- OUTSIDE RECORDS SUMMARY | 2024-12-14 10:35 | XMS_ITS | Encounter Summary ---
Author Organization [facility] Address [address] [place] [address] Care Team Providers Care Inspection Machine Tender Name Role Phone Alexandria Peñaloza MD Primary Care Provider Unava Kristy Rush MD Primary Care Provider Un available Alexandria Peñaloza MD Primary Care Provider Unava Tom Booker Primary Care Provider [phone] Marisela Goodrich MD Primary Care Provider + Encounter Details Date Type Department Care Team Description 02/17/2015 ENVIRONMENTAL SERVICES LEAD/[facility] Report Medical Records [address] [place] [address] Abstract, Provider Social History Tobacco Use Types [...] on filedocumented in this encounter Care Teams Inspection Machine Tender Relationship Specialty Start Date End Date Alexandria Peñaloza MD PCP - General 03/26/10 07/24/20 Kristy Castrejon MD PCP - General Internal Medicine 07/25/20 1 Alexandria Peñaloza MD PCP - General Internal Medicine 11/21/20 05/13/22 Tom White [address] [place] [address] PCP - General Internal Medicine 05/14/22 10/06/22 Marisela Goodrich MD [address] [place] [address] PCP - General Internal Medicine 10/07/22 documented as of this encounter
--- OUTSIDE RECORDS SUMMARY | 2024-12-14 10:35 | XMS_ITS | Encounter Summary ---
Author Organization [facility] Address [address] [place] [address] Care Team Providers Care Business School Dean Name Role Phone Alexandria Peñaloza MD Primary Care Provider Unava Kristy Rush MD Primary Care Provider Un available Alexandria Peñaloza MD Primary Care Provider Unava Tom Booker Primary Care Provider [phone] Marisela Goodrich MD Primary Care Provider + Encounter Details Date Type Department Care Team Description 10/13/2012 Irrigation Installation Specialist Report Medical Records [address] [place] [address] Reji Hensley [address] [place] [address] Social History Tobacco Use Types Packs/Day Years [...] filedocumented in this encounter Care Teams Business School Dean Relationship Specialty Start Date End Date Alexandria Peñaloza MD PCP - General 03/26/10 07/24/20 Kristy Castrejon MD PCP - General Internal Medicine 07/25/20 1 Alexandria Peñaloza MD PCP - General Internal Medicine 11/21/20 05/13/22 Tom White [address] [place] [address] PCP - General Internal Medicine 05/14/22 10/06/22 Marisela Goodrich MD [address] [place] [address] PCP - General Internal Medicine 10/07/22 documented as of this encounter
--- OUTSIDE RECORDS SUMMARY | 2024-12-14 10:35 | XMS_ITS | Encounter Summary ---
Author Organization [facility] Address [address] [place] [address] Care Team Providers Care Brim Stitcher Name Role Phone Alexandria Peñaloza MD Primary Care Provider Unava Kristy Rush MD Primary Care Provider Un available Alexandria Peñaloza MD Primary Care Provider Soniava Tom Booker Primary Care Provider [phone] Marisela Goodrich MD Primary Care Provider + Encounter Details Date Type Department Care Team Description 12/02/2014 Hereditary Cancer Qu iz Results Medical Records [address] [place] [id number] Abstract, Provider Social History Tobacco Use Types [...] on filedocumented in this encounter Care Teams Brim Stitcher Relationship Specialty Start Date End Date Alexandria Peñaloza MD PCP - General 03/26/10 07/24/20 Kristy Castrejon MD PCP - General Internal Medicine 07/25/20 1 Alexandria Peñaloza MD PCP - General Internal Medicine 11/21/20 05/13/22 Tom White [address] [place] [address] PCP - General Internal Medicine 05/14/22 10/06/22 Marisela Goodrich MD [address] [place] [address] PCP - General Internal Medicine 10/07/22 documented as of this encounter
--- OUTSIDE RECORDS SUMMARY | 2024-12-14 10:35 | XMS_ITS | Encounter Summary ---
Author Organization [facility] Address [address] [place] [address] Care Team Providers Care Diet Clerk Name Role Phone Marisela Goodrich MD Primary Care Provider + Encounter Details Date Type Department Care Team Description 01/07/2023 Hospital Medical Records [address] [place] [phone] Ronnie Boyle MD Social History Tobacco Use [...] on filedocumented in this encounter Care Teams Diet Clerk Relationship Specialty Start Date End Date Marisela Goodrich MD [address] [place] [address] PCP - General Internal Medicine 10/07/22 documented as of this encounter
--- OUTSIDE RECORDS SUMMARY | 2024-12-14 10:35 | XMS_ITS | Encounter Summary ---
Author Organization [facility] Address [address] [place] [address] Care Team Providers Care Check Writer Name Role Phone Alexandria Peñaloza MD Primary Care Provider Unava Kristy Rush MD Primary Care Provider Un available Alexandria Peñaloza MD Primary Care Provider Unava Tom Booker Primary Care Provider [phone] Marisela Goodrich MD Primary Care Provider + Encounter Details Date Type Department Care Team Description 11/07/2014 Refill Medicine/Pediatrics - [address] [id number] Alexandria Peñaloza MD Social History Tobacco Use [...] on filedocumented in this encounter Care Teams Check Writer Relationship Specialty Start Date End Date Alexandria Peñaloza MD PCP - General 03/26/10 07/24/20 Kristy Castrejon MD PCP - General Internal Medicine 07/25/20 1 Alexandria Peñaloza MD PCP - General Internal Medicine 11/21/20 05/13/22 Tom White [address] [place] [address] PCP - General Internal Medicine 05/14/22 10/06/22 Marisela Goodrich MD [address] [place] [address] PCP - General Internal Medicine 10/07/22 documented as of this encounter
--- OUTSIDE RECORDS SUMMARY | 2024-12-14 10:35 | XMS_ITS | Encounter Summary ---
Author Organization [facility] Address [address] [place] [address] Care Team Providers Care Bed And Breakfast Innkeeper Name Role Phone Alexandria Peñaloza MD Primary Care Provider Unava Kristy Rush MD Primary Care Provider Un available Alexandria Peñaloza MD Primary Care Provider Unava ilable Tom White Primary Care Provider [phone] Marisela Goodrich MD Primary Care Provider + Encounter Details Date Type Department Care Team Description 04/05/2013 Pt. Non Urgent Medic al Question Physiatry - [address] [address] Tsering Gruber PA-C Social History Tobacco Use Types Packs/Day [...] as of this encounter Progress Notes * Diane Bridges M.A. - 04/05/2013 1:51 PM EDTFrom: SANDY WEIR To: Tsering Gruber PA-C Sent: FriApril 05, 2013 1:34 PM Subject: Results of X-ray Sal Cagle, I was just wondering if the results of my X-ray have come back? Thank you, happy Friday! Sandy documented in this encounter Plan of Treatment Not on file documented as of this encounter Visit Diagnoses Not on filedocumented in this encounter Care Teams Bed And Breakfast Innkeeper Relationship Specialty Start Date End Date Alexandria Peñaloza MD PCP - General 03/26/10 07/24/20 Kristy Castrejon MD PCP - General Internal Medicine 07/25/20 Alexandria Peñaloza MD PCP - General Internal Medicine 11/21/20 05/13/22 Tom White [address] [place] [address] PCP - General Internal Medicine 05/14/22 10/06/22 Marisela Goodrich MD [address] [place] [address] PCP - General Internal Medicine 10/07/22 documented as of this encounter
--- OUTSIDE RECORDS SUMMARY | 2024-12-14 10:35 | XMS_ITS | Clinical Summary ---
Author Organization [facility] Address [address] [address] Care Team Providers Care Ordering Box Operator Name Role Phone Tom White MD Primary [...] Vaccine (#1) 2024 09/22/2018, 2016 Insurance [place] Care Teams Ordering Box Operator Relationship Specialty Start Date End Date Tom White MD [address] [place] [address] PCP - [facility] 02/14/23
--- OUTSIDE RECORDS SUMMARY | 2024-12-14 10:35 | XMS_ITS | Encounter Summary ---
Author Organization [facility] Address [address] [place] [address] Care Team Providers Care Presales Engineer Name Role Phone Marisela Goodrich MD Primary Care Provider + Reason for Visit * Reason Onset Date Comments hospital follow up 12/06/2022 Encounter Details Date Type Department Care Team Description 12/06/2022 Telephone Adult Medicine [address] [address] Marisela Goodrich MD [address] [place] [phone] hospital follow up Social History Tobacco Use Types Packs/Day Years [...] encounter Miscellaneous Notes * Telephone Encounter - Stefany Harvey - 12/20/2022 2:04 PM EST Called and left vm to return my call. * Telephone Encounter - Philomena Mcguire - 12/20/2022 1:15 PM EST Patient returned call * Telephone Encounter - Stefany Harvey - 12/20/2022 12:39 PM EST Called and left vm to return my call. * Telephone Encounter - Jess Bean - 12/20/2022 11:22 AM EST Patient never received VM. States sometimes her phone does not show missed calls. Admitted to [facility] for the same problem, looking to book, now for Hospital follow up, patient will be released on 12/22/22. Please return call today. * Telephone Encounter - Stefany Harvey - 12/09/2022 9:49 AM EST Called and left vm to return my call. * Telephone Encounter - Karolina Smith - 12/06/2022 11:29 AM EST ER follow-up appointment booked NO If ER or UC follow up, can be booked with APC or MD. If hospital admission follow up MUST be booked with a physician Appointment time: PM Provider visit is scheduled with: Hospital/UC center patient was treated at: [facility] Date of visit: 11/25/22 11/28/22 Was this only an ER/UC visit or was the patient admitted to the hospital? Admitted to hospitalAdmitted to hospital If patient was admitted what was the date of discharge? 11/28/22 Reason/diagnosis for visit or stay: ABDOMINAL PAIN AND SEIZURES Was visit or stay related to an injury? NO If yes, what was the date of injury (DOI)? N/A If yes, was the injury due to N/A Tests performed: Lab: YES X-ray: YES EKG: NO Other tests. If yes, what?; N/A documented in this encounter Plan of Treatment Not on file documented as of this encounter Visit Diagnoses Not on filedocumented in this encounter Care Teams Presales Engineer Relationship Specialty Start Date End Date Marisela Goodrich MD [address] [place] [address] PCP - General Internal Medicine 10/07/22 documented as of this encounter
--- OUTSIDE RECORDS SUMMARY | 2024-12-14 10:35 | XMS_ITS | Encounter Summary ---
Author Organization [facility] Address [address] [place] [address] Care Team Providers Care Framing Manager Name Role Phone Alexandria Peñaloza MD Primary Care Provider Unava Kristy Rush MD Primary Care Provider Un available Alexandria Peñaloza MD Primary Care Provider Unava ilable Tom White Primary Care Provider [phone] Marisela Goodrich MD Primary Care Provider + Encounter Details Date Type Department Care Team Description 05/09/2015 Army Senior Officer Report Medical Records [address] [place] [id number] Peter Matias MD Social History Tobacco Use [...] on filedocumented in this encounter Care Teams Framing Manager Relationship Specialty Start Date End Date Alexandria Peñaloza MD PCP - General 03/26/10 07/24/20 Kristy Castrejon MD PCP - General Internal Medicine 07/25/20 1 Alexandria Peñaloza MD PCP - General Internal Medicine 11/21/20 05/13/22 Tom White [address] [place] [address] PCP - General Internal Medicine 05/14/22 10/06/22 Marisela Goodrich MD [address] [place] [address] PCP - General Internal Medicine 10/07/22 documented as of this encounter
--- OUTSIDE RECORDS SUMMARY | 2024-12-14 10:36 | XMS_ITS | Encounter Summary ---
Author Organization [facility] Address [address] [place] [address] Care Team Providers Care Chief Of Anesthesiology Name Role Phone Alexandria Peñaloza MD Primary Care Provider Tom Jane Primary Care Provider [phone] Marisela Goodrich MD Primary Care Provider + Reason for Visit * Reason Onset Date Comments Prior Authorization 04/18/2021 Encounter Details Date Type Department Care Team Description 04/18/2021 Refill Adult Medicine [address] [address] Alexandria Peñaloza MD Prior Authorization Social History Tobacco Use Types [...] have Coronavirus / COVID-19? No / Unsure 04/17/2021 1:15 PM EDT documented as of this encounter Miscellaneous Notes * Telephone Encounter - Milagros Gatica - 04/18/2021 11:15 AM EDT Prior Authorization for Medication-do not complete and send this encounter unless you have the fax from the pharmacy. Is this a Cover My Meds request: [place] of Medication Preg[place]in Dose of Medication 25 mg capsules What is the RX # from the faxed refill? How does patient take this med? What Pharmacy did the fax come from: [facility] Pharmacy fax #: [phone] [employer] Information from fax: What Prescription Plan does the patient have? BIN/PCN if applicable: Cardholder ID: Person Code: Relationship Code: Help desk phone: documented in this encounter Plan of Treatment Not on file documented as of this encounter Visit Diagnoses Not on filedocumented in this encounter Care Teams Chief Of Anesthesiology Relationship Specialty Start Date End Date Alexandria Peñaloza MD PCP - General Internal Medicine 11/21/20 05/13/22 Tom White [address] [place] [address] PCP - General Internal Medicine 05/14/22 10/06/22 Marisela Goodrich MD [address] [place] [address] PCP - General Internal Medicine 10/07/22 documented as of this encounter
--- OUTSIDE RECORDS SUMMARY | 2024-12-14 10:36 | XMS_ITS | Clinical Summary ---
Author Organization [facility] Address [address] [place] [address] Care Team Providers Care Computer Assistant Name Role Phone Marisela Goodrich MD Primary Care Provider + Allergies Active Allergy Reactions Severity Noted Date Comments Latex Rash/Dermatitis 04/24/2018 Gabapentin Muscle weakness 11/30/2010 Toradol Hives/Urticaria 09/18/2020 Versed 02/19/2012 Stop breathing Medications Medication Sig Dispensed Refills Start Date End Date Status Lacosamide 150 MG TabIndications:Othe r intractable epilepsy without status epilepticus (HCC) Take 1 Tab by mouth every morning. 1 Tab 0 02/18/2020 Active naratriptan (AMERGE) 1 MG Tab Take 1 Tab by mouth daily as needed (migraine). May repeat in 4 hrs 1 Tab 0 02/18/2020 Active Blood Glucose Calibration (FREESTYLE CONTROL SOLUTION) Liquid Use to check machine weekly 1 Each 0 12/19/2020 Active promethazine (PHENERGAN) 6.25 MG/5ML syrup TAKE 10-20 ML BY MOUTH EVERY 6 HOURS NEEDED (NAUSEA). 300 mL 2 08/13/2021 Active SYRINGE-NEEDLE, DISP, 3 ML (SAFETY-PASCUAL 3CC SYR 23GX1 ) 23G X 1 3 ML Misc Inject 1 Syringe into the skin daily. 100 Each 0 09/06/2022 Active Melatonin 3 MG Tab TAKE 1 OR 2 TABLETS BY MOUTH DAILY AT BEDTIME 60 Tablet 2 10/09/2022 Active escitalopram (LEXAPRO) 10 MG tablet Take 1 Tablet by mouth daily. 0 Active cyanocobalamin 1000 MCG/ML injectionIndication s:Vitamin B12 deficiency Inject 1 mL into the muscle every 30 days. 1 mL 0 10/07/2022 Active vitamin B-12 (CYANOCOBALAMIN) 1000 MCG tablet Take 1 Tablet by mouth daily. 90 Tablet 1 12/09/2022 Active vitamin D (ERGOCALCIFEROL) 1.25 MG (57819 UT) capsule Take 1 Capsule by mouth once a week. 12 Capsule 0 01/27/2023 Active glucose monitoring kit (FREESTYLE) monitoring kit Use to check sugar daily 1 Kit 0 01/28/2023 Active Glucose Blood (FREESTYLE LITE) Strip Use to check blood sugar bid as needed 200 Strip 5 01/28/2023 Active FreeStyle Lancets Misc Use to check bood sugar bid as needed 200 Each 5 01/28/2023 Active risperidone (RISPERDAL) 2 MG tablet Take 1 Tablet by mouth daily. 30 Tablet 0 02/26/2023 Active busPIRone (BUSPAR) 7.5 MG tablet Take 1 Tablet by mouth 2 times daily. 0 02/26/2023 Active Budesonide 3 MG CAPSULE ENTERIC COATED PARTICLES Take by mouth. 90 Capsule 0 02/26/2023 Active Insulin Pen Needle (B-D ULTRAFINE III SHORT PEN) 31G X 8 MM Misc Use to inject insulin once nightly at bedtime 100 Each 1 03/19/2023 Active lisinopril (PRINIVIL,ZESTRIL) 40 MG tablet Take 1 Tablet by mouth daily. 90 Tablet 1 03/28/2023 Active ALBUTEROL SULFATE 108 (90 Base) MCG/ACT Aero Soln Inhale 2 Puffs into the lungs every 4 hours as needed for Cough, Wheezing or Shortness of Breath. 18 g 0 06/20/2023 Active Insulin Glargine (Lantus SoloStar) 100 UNIT/ML Solution Pen-injector Inject 34 Units into the skin at bedtime. 45 mL 1 07/02/2023 Active ibuprofen (ADVIL,MOTRIN) 600 MG tablet Take 1 Tablet by mouth every 8 hours as needed for Pain. 270 Tablet 0 07/30/2023 Active cyclobenzaprine (FLEXERIL) 10 MG tablet Take 1 Tablet by mouth 3 times daily as needed for Muscle spasms. Medication may cause drowsiness, do not drive/operate machinery while taking 270 Tablet 0 07/30/2023 Active Fenofibrate 145 MG Tab TAKE 1 TABLET BY MOUTH EVERY DAY 90 Tablet 1 08/11/2023 Active Dulaglutide 0.75 MG/0.5ML Solution Pen-injectorIndicat ions:Poorly controlled diabetes mellitus (HCC) Inject 0.75 mg into the skin once a week. 6 mL 1 08/18/2023 Active pregabalin (LYRICA) 100 MG capsule Take 2 Capsules by mouth 2 times daily. 120 Capsule 0 09/23/2023 Active Cholecalciferol (Vitamin D3) 50 MCG (1999 UT) Cap TAKE 1 CAPSULE BY MOUTH EVERY DAY 90 Capsule 1 11/07/2023 Active Active Problems Problem Noted Date Status post VNS (vagus nerve stimulator) placement 02/26/2023 Bipolar disorder 02/26/2023 Hyperlipidemia 02/26/2023 Poorly controlled diabetes mellitus 06/2022 Nocturnal hypoxemia without diagnosed OS A 04/08/2022 Overview: [facility] diagnostic polysomnogram 03/14/2022 weight 320; BMI 49. AHI 4. Average oxygen saturation 90% with oxygen lashaun 80%. Nocturnal hypoxemia without sleep apnea diagnosed. PLMD also noted. PLMD (periodic limb movement disorder) 0 04/08/2022 Mild episode of recurrent major depressi ve disorder 03/28/2021 Migraine headache 03/28/2020 Overview: Onset childhood age 9. Morbid obesity with BMI of 40.0-44.9, ad ult 10/05/2019 C. difficile colitis 06/30/2019 Overview: 04/03; 03/05 07/05; 01/2021; GI and ID involved; 8 wks po vanco; to start vanco with any abx tx Morbid obesity 05/21/2019 Functional abdominal pain syndrome 04/07 Overview: See note from Dr. 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 Colonoscopy 07/03/2016; microscopic inflammation with eosinophils. See note Dr. Davenport 04/02/2019; GI symptoms thought to be functional, no diagnosis of microscopic colitis Vitamin B12 deficiency 04/08/2016 DDD (degenerative disc disease), lumbar 03/31/2015 PCOS (polycystic ovarian syndrome) 02/24 Vitamin D deficiency 02/18/2014 Exercise-induced asthma 12/19/2013 Essential hypertension 03/17/2013 Sleep disorder related to another health condition 01/10/2012 Epilepsy 07/05/2010 Overview: Age 10 onset Hidradenitis suppurativa 06/20/2010 Gastric reflux 05/01/2010 Overview: EGD 02/25/2012, nl on PPI tx. Throat symptoms eventually were diagnosed as part of the epilepsy syndrome. Manometry 05/04 w/ weak esophagus common in reflux; reflux study borderline nl; +sx correlation; stay on PPI; Dr. Adams 10/13/18 EGD w/ Grade B esophagitis Fibromyalgia Anxiety Resolved Problems Problem Noted Date Resolved Date Diabetes type 2, controlled 03/23/202102/15 Borderline personality disorder 05/12/2020 03/14/2021 Pap smear abnormality of cervix with LGSIL 10/0510/05/2019 Overview: History: PAP 09/09/2019: LSIL: High Risk HPV DNA positive. Dyspareunia in female 10/05/2019 01/25/2020 Overview: Hysterectomy 12/20/2019 Low grade squamous intraepit h lesion on cytologic smear cervix (lgsil) 09/22/2019 01/25/2020 Overview: History: PAP 01/29/2013; Cytology negative PAP 02/19/2017: Cytology negative; High Risk HPV DNA positive; not Types 16/18/45 PAP 09/09/2019: LSIL; High Risk HPV DNA positive. Colposcopy 11/01/2019: small area of mild aectowhite epithelium at 12:00; biopsy not deemed warranted. Cervical appears clear. Hysterectomy 12/20/2019 IUD (intrauterine device) in place 06/17/2018 12/20/2019 Overview: On CT scan at [facility] Hysterectomy 12/20/2019 Vasquez's esophagus 12/25/2017 03/31/2020 Overview: Dr. Adams; needs repeat EGD in 1 yr Menorrhagia 02/24/2015 01/25/2020 Overview: Hysterectomy 12/20/2019 Tobacco use disorder 10/15/2010 02/15/2014 Obesity 05/01/2010 05/21/2019 Depression 05/01/2010 03/14/2021 Immunizations Name Administration Dates Next Due COVID-19 (Pfizer) 10/19/2021,04/07/2021,03/17/20 21 COVID-19 (Pfizer) Pt Reported 04/07/2021, 021 Covid-19 Bivalent (Pfizer) 08/26/2022 Influenza (> 6 Months) 08/15/2020,2015,07/27/2015,08/18,08/14/2012,09/13/2011,09/05/2010 Influenza Vaccine-preservati ve Free-quadrivalent 4 Years 09/22/2018 Influenza Vaccine-quadrivale nt 4 Years Plus 09/29/2017 Pneumoccoccal(Adult) Polysac charide PPSV23 02/15/2014 Tdap 04/09/2010 Family History Medical History Relation Name Comments CA Colon Father's side great uncle, d ied at about age 60 Arthritis Maternal Grandmother Arthritis Paternal Grandmother said to have RA Relation Name Status Comments Father Alive dm, depression Father's side Maternal Grandfather prostat e ca Maternal Grandmother Alive ca, marcelo ast lump, ovarian cyst, heart problem, thyroid dz, [place] age unknown Mother Alive ovarian cyst Paternal Grandfather bi suzie r Paternal Grandmother Alive thyroid ca, arthritis, RA Son Nasir Alive Nasir; 2007; a utistic Social History Tobacco Use Types Packs/Day Years Used Date Smoking Tobacco: Every Day Cigarettes 0.3 7 Last attempted to quit: 01/14/2019 Smokeless Tobacco: Never Tobacco Cessation:Ready to Q uit: Not Asked; Counseling Given: Not Answered Comments:Patch Alcohol Use Standard Drinks/Week Comments No 0 (1 standard drink = 0.6 oz pur e alcohol) Sex Assigned at Date Recorded Female 07/19/2020 10:28 AM EDT Job Start Date Occupation Industry Not on file Not on file Not on file Last Filed Vital Signs Vital Sign Reading Time Taken Comments Blood Pressure 139/89 02/26/2023 1:17 PM EDT Pulse 93 02/26/2023 3:00 PM EDT Temperature 36.5 ??C (97.7 ??F) 02/26/2023 1:17 PM ED T Respiratory Rate 14 02/26/2023 1:17 PM EDT Oxygen Saturation 98% 06/18/2021 1:37 PM EDT Inhaled Oxygen Concentration - - Weight 160.6 kg (354 lb) 02/26/2023 1:17 PM EDT Height 172.7 cm (5' 8 ) 02/26/2023 1:17 PM EDT Body Mass Index 53.83 02/26/2023 1:17 PM EDT Plan of Treatment Health Maintenance Due Date Last Done Comments DIABETES: ANNUAL FOOT EXAM 2002 DIABETES: ANNUAL EYE EXAM 12/01/2016 12/01/2015 DTAP/TDAP/TD (2 - Td or Tdap) 04/09/2020 04/09/2010 DIABETES: BLOOD SUGAR CONTRO L TEST (HGBA1C) 04/29/2023 01/27/2023, 01/27/2023, 11/01/2021, Additional history exists DIABETES/HEART DISEASE: TATUM AL CHOLESTEROL (LDL) 01/28/2024 01/27/2023, 01/27/2023, 01/27/2023, Additional history exists DIABETES: ANNUAL URINE PROTE IN TEST (MICROALBUMIN) 01/28/2024 01/27/2023, 01/27/2023, 11/01/2021, Additional history exists Covid-19 Vaccine (2022-12 4 season) 2024 08/26/2022, 10/19/2021, 04/07/2021, Additional history exists INFLUENZA (#1) 2024 08/18/2022, 07/19, 08/15/2020, Additional history exists BASELINE HEALTH EXAM 40-64 10/29/202402/15, 03/17/2013, 04/09/2010, Additional history exists MAMMOGRAM 2024 10/14/2017 BMI CHECK/ADVISE 11/17/2024 02/26/2023, 06/2022, 11/19/2021, Additional history exists DEPRESSION SCREENING/FOLLOWUP 11/17/2024, 10/31/2021, 10/31/2021, Additional history exists SOCIAL NEEDS SCREENING 11/17/2024 02/26/2023, 2021 COLON CANCER SCREENING 01/17/2026 , 07/15/2018, 12/16/2017, Additional history exists PNEUMOCOCCAL VACCINE FOR HIG H RISK PATIENTS Completed 08/26/2022, 10/02/2016, 02/15/2014 Care Teams Computer Assistant Relationship Specialty Start Date End Date Marisela Goodrich MD [address] [place] [phone] PCP - General Internal Medicine 10/07/22
--- OUTSIDE RECORDS SUMMARY | 2024-12-14 10:36 | XMS_ITS | Encounter Summary ---
Author Organization [facility] Address [address] [place] [address] Care Team Providers Care Pearl Fisherman Name Role Phone Marisela Goodrich MD Primary Care Provider + Reason for Visit * Reason Comments E-prescribe Rx Request Encounter Details Date Type Department Care Team Description 07/30/2023 Refill Medicine/Pediatrics - [place] [address] [place] [phone] Marisela Goodrich MD [address] [place] [phone] E-prescribe Rx Request Social History Tobacco Use [...] encounter Miscellaneous Notes * Telephone Encounter - aClista Hylton - 07/30/2023 4:47 PM EDT Patient would like script to be: E-PRESCRIBED/FAXED TO PHARMACY WHEN WAS THE PATIENT'S LAST APPOINTMENT IN ADULT MEDICINE? 02/26/23 WHEN WAS THE LAST TIME THE PATIENT SAW THEIR PCP? Same as above Does patient have an upcoming appointment? Yes 10/23/23 (THE MEDICATION REQUESTED IS ON THE MED LIST ABOVE) All of the medications requested were on the CURRENT MEDS list Did you check the Pharmacy information above?: YES Patient wants: 90 -day supply Is this a mail order prescription request ? NO If the refill is from a FAXED refill request what is the RX # listed on the fax? N/A Patients current insurance carrier is: Payor: [facility] FFS / Plan: [facility] / Product Type: MEDICAID RISK documented in this encounter Plan of Treatment Not on file documented as of this encounter Visit Diagnoses Not on filedocumented in this encounter Care Teams Pearl Fisherman Relationship Specialty Start Date End Date Marisela Goodrich MD [address] [place] [phone] PCP - General Internal Medicine 10/07/22 documented as of this encounter
--- OUTSIDE RECORDS SUMMARY | 2024-12-14 10:36 | XMS_ITS | Encounter Summary ---
Author Organization [facility] Address [address] [place] [address] Care Team Providers Care Biological Photographer Name Role Phone Alexandria Peñaloza MD Primary Care Provider Kristy Milan MD Primary Care Provider Un available Alexandria Peñaloza MD Primary Care Provider Soniava Tom Booker Primary Care Provider [phone] Marisela Goodrich MD Primary Care Provider + Encounter Details Date Type Department Care Team Description 03/15/2019 [facility] Medical Records [address] [place] [address] Social History Tobacco Use Types Packs/Day Years [...] on filedocumented in this encounter Care Teams Biological Photographer Relationship Specialty Start Date End Date Alexandria Peñaloza MD PCP - General 03/26/10 07/24/20 Kristy Castrejon MD PCP - General Internal Medicine 07/25/20 1 Alexandria Peñaloza MD PCP - General Internal Medicine 11/21/20 05/13/22 Tom White [address] [place] [address] PCP - General Internal Medicine 05/14/22 10/06/22 Marisela Goodrich MD [address] [place] [address] PCP - General Internal Medicine 10/07/22 documented as of this encounter
--- OUTSIDE RECORDS SUMMARY | 2024-12-14 10:36 | XMS_ITS | Encounter Summary ---
Author Organization [facility] Address [address] [place] [address] Care Team Providers Care Head Of Acquisitions Name Role Phone Alexandria Peñaloza MD Primary Care Provider Unava Kristy Rush MD Primary Care Provider Un available Alexandria Peñaloza MD Primary Care Provider Unava Tom Booker Primary Care Provider [phone] Marisela Goodrich MD Primary Care Provider + Reason for Visit * Reason Comments E-prescribe Rx Request Encounter Details Date Type Department Care Team Description 05/12/2019 Refill Medicine/Pediatrics - [address] [phone] Cristobal Mares PA-C E-prescribe Rx Request Social History Tobacco [...] encounter Miscellaneous Notes * Telephone Encounter - Robbie Hogan M.A. - 05/12/2019 2:04 PM EDT RX sent * Telephone Encounter - Ligia Garcia M.A. - 05/12/2019 12:02 PM EDT RX from 05/07/19 not received. Pended to print to hand fax today. * Telephone Encounter - Haylie Lazo - 05/12/2019 11:13 AM EDT Patient would like script to be: E-PRESCRIBED/FAXED TO PHARMACY WHEN WAS THE PATIENT'S LAST APPOINTMENT IN ADULT MEDICINE? 04/22/19 WHEN WAS THE LAST TIME THE PATIENT SAW THEIR PCP? 07/08/18 Does patient have an upcoming appointment? NO (THE MEDICATION REQUESTED IS ON THE MED [...] N/A Patients current insurance carrier is: Payor: [employer] FFS / Plan: [facility] / Product Type: MEDICAID RISK documented in this encounter Plan of Treatment Not on file documented as of this encounter Visit Diagnoses Not on filedocumented in this encounter Care Teams Head Of Acquisitions Relationship Specialty Start Date End Date Alexandria Peñaloza MD PCP - General 03/26/10 07/24/20 Kristy Castrejon MD PCP - General Internal Medicine 07/25/20 1 Alexandria Peñaloza MD PCP - General Internal Medicine 11/21/20 05/13/22 Tom White [address] [place] [address] PCP - General Internal Medicine 05/14/22 10/06/22 Marisela Goodrich MD [address] [place] [address] PCP - General Internal Medicine 10/07/22 documented as of this encounter
--- OUTSIDE RECORDS SUMMARY | 2024-12-14 10:36 | XMS_ITS | Encounter Summary ---
Author Organization [facility] Address [address] [place] [address] Care Team Providers Care Rag Sorter Name Role Phone Alexandria Peñaloza MD Primary Care Provider Tom Jane Primary Care Provider [phone] Marisela Goodrich MD Primary Care Provider + Encounter Details Date Type Department Care Team Description 06/11/2021 [facility] Medical Records [address] [place] [address] Social History Tobacco Use Types Packs/Day Years [...] on filedocumented in this encounter Care Teams Rag Sorter Relationship Specialty Start Date End Date Alexandria Peñaloza MD PCP - General Internal Medicine 11/21/20 05/13/22 Tom White [address] [place] [id number] PCP - General Internal Medicine 05/14/22 10/06/22 Marisela Goodrich MD [address] [place] [address] PCP - General Internal Medicine 10/07/22 documented as of this encounter
--- OUTSIDE RECORDS SUMMARY | 2024-12-14 10:36 | XMS_ITS | Encounter Summary ---
Author Organization [facility] Address [address] [place] [address] Care Team Providers Care Belt And Link Shop Supervisor Name Role Phone Alexandria Peñaloza MD Primary Care Provider Tom Jane Primary Care Provider [phone] Marisela Goodrich MD Primary Care Provider + Encounter Details Date Type Department Care Team Description 02/27/2021 Recruitment Director Report Medical Records [address] [place] [address] Nam Villela Social History Tobacco Use Types Packs/Day Years [...] have Coronavirus / COVID-19? No / Unsure 02/06/2021 4:22 PM EDT documented as of this encounter Plan of Treatment Not on file documented as of this encounter Visit Diagnoses Not on filedocumented in this encounter Care Teams Belt And Link Shop Supervisor Relationship Specialty Start Date End Date Alexandria Peñaloza MD PCP - General Internal Medicine 11/21/20 05/13/22 Tom White [address] [place] [address] [phone] PCP - General Internal Medicine 05/14/22 10/06/22 Marisela Goodrich MD [address] [place] [phone] PCP - General Internal Medicine 10/07/22 documented as of this encounter
--- OUTSIDE RECORDS SUMMARY | 2024-12-14 10:36 | XMS_ITS | Encounter Summary ---
Author Organization [facility] Address [address] [place] [address] Care Team Providers Care Illuminating Engineer Name Role Phone Marisela Goodrich MD Primary Care Provider + Reason for Visit * Reason Comments E-prescribe Rx Request Encounter Details Date Type Department Care Team Description 09/23/2023 Refill Adult Medicine [facility] [address] [place] [address] Marisela Goodrich MD [address] [place] [address] E-prescribe Rx Request Social History Tobacco Use [...] encounter Miscellaneous Notes * Telephone Encounter - Yesenia Denton PA-C - 09/23/2023 11:23 AM EST Signed, last note with PCP February 2023 reviewed Upcoming appt October with PCP * Telephone Encounter - Gary Novoa M.A. - 09/23/2023 11:02 AM EST Lab Results Component Value Date URBENZO NONE DETECTED 07/28/2020 UROPIATES NONE DETECTED 07/28/2020 UROXYCODONE NONE DETECTED 07/28/2020 URBARBITUATE NONE DETECTED 07/28/2020 PAINAMPHETAM NONE DETECTED 07/28/2020 PAINCOCAINE NONE DETECTED 07/28/2020 PAINCANNABIN NONE DETECTED 07/28/2020 PERRY w/PCP 02/26/2023 Next OV w/PCP 10/23/[address] Goodrich's absence, thank you. 09/15/2023 09/08/2023 1 Lorazepam 1 Mg Tablet 10 10 Sh Dev [id number] [facility] 1/2 1.00 [facility] [place] 09/08/2023 09/08/2023 1 Lorazepam 1 Mg Tablet 10 10 Sh Dev [id number] [facility] 0/2 1.00 [place] 09/08/2023 08/11/2023 1 Lacosamide 150 Mg Tablet 60 30 Wi Krystian [id number] [facility] ([facility] 1/ 1.20 [place] 08/18/2023 08/18/2023 1 Pregabalin 100 Mg Capsule 120 30 Oy Ogu [id number] [facility] (14[facility] 0/0 2.68 [place] 08/11/2023 08/11/2023 1 Lorazepam 1 Mg Tablet 10 10 Sh Dev [id number] [facility] (14[facility] 0/0 1.00 [place] 08/11/2023 08/11/2023 1 Lacosamide 150 Mg Tablet 60 30 Wi Krystian [id number] [facility] 0/5 1.20 [place] 07/17/2023 07/17/2023 1 Pregabalin 100 Mg Capsule 120 30 Oy Ogu [id number] [facility] ([facility] 0/0 2.68 [place] 07/12/2023 06/11/2023 1 Lacosamide 150 Mg Tablet 60 30 Be Radha [id number] [facility] (14[facility] 1/ 1.20 [place] 06/16/2023 06/16/2023 1 Pregabalin 100 Mg Capsule 120 30 Oy Ogu [id number] [facility] (14[facility]) 0/0 2.68 LME Medicaid [place] 06/11/2023 06/11/2023 1 Lacosamide 150 Mg Tablet 60 30 Be Radha [id number] [facility] (14[facility]) 0/ 1.20 LME Medicaid [place] 05/09/2023 04/09/2023 1 Lacosamide 150 Mg Tablet 60 30 Be Radha [id number] [facility] (14[facility] 11/17 1.20 LME [place] 05/07/2023 05/07/2023 1 Oxycodone Hcl (Ir) 5 Mg Tablet [address] [id number] [facility] (1450) 0/0 45.00 MME [place] 04/29/2023 02/26/2023 1 Pregabalin 100 Mg Capsule 180 45 Oy Ogu [id number] [facility] (14[facility]) 11/17 2.68 LME [place] 04/10/2023 04/09/2023 1 Lacosamide 150 Mg Tablet 60 30 Be Radha [id number] [facility] (14[facility]) 0 1.20 L[place] 04/10/2023 04/10/2023 1 Morphine Sulfate Ir 15 Mg Tab 7 2 Ch Gre [id number] [facility] (1450) 0/0 52.50 MME [place] * Telephone Encounter - Steve Diordor - 09/23/2023 9:55 AM EST Patient would like script to be: [...] N/A Patients current insurance carrier is: Payor: [facility] FFS / Plan: [facility] / Product Type: MEDICAID RISK documented in this encounter Plan of Treatment Not on file documented as of this encounter Visit Diagnoses Not on filedocumented in this encounter Care Teams Illuminating Engineer Relationship Specialty Start Date End Date Marisela Goodrich MD [address] [place] [phone] PCP - General Internal Medicine 10/07/22 documented as of this encounter
--- OUTSIDE RECORDS SUMMARY | 2024-12-14 10:36 | XMS_ITS | Encounter Summary ---
Author Organization [facility] Address [address] [place] [address] Care Team Providers Care Ship'S Electronic Warfare Officer Name Role Phone Alexandria Peñaloza MD Primary Care Provider Tom Jane Primary Care Provider [phone] Marisela Goodrich MD Primary Care Provider + Encounter Details Date Type Department Care Team Description 03/07/2021 [facility] Medical Records [address] [place] [address] Abstract, Provider Social History Tobacco Use Types [...] on filedocumented in this encounter Care Teams Ship'S Electronic Warfare Officer Relationship Specialty Start Date End Date Alexandria Peñaloza MD PCP - General Internal Medicine 11/21/20 05/13/22 Tom White [address] [place], [place] [phone] PCP - General Internal Medicine 05/14/22 10/06/22 Marisela Goodrich MD [address] [place] [phone] PCP - General Internal Medicine 10/07/22 documented as of this encounter
--- OUTSIDE RECORDS SUMMARY | 2024-12-14 10:36 | XMS_ITS | Encounter Summary ---
Author Organization [facility] Address [address] [place] [address] Care Team Providers Care Creative Services Designer Name Role Phone Alexandria Peñaloza MD Primary Care Provider Tom Jane Primary Care Provider [phone] Marisela Goodrich MD Primary Care Provider + Encounter Details Date Type Department Care Team Description 05/30/2021 Pt. Non Urgent Medic al Question Medicine/Pediatrics - [address] [phone] Alexandria Peñaloza MD Social History Tobacco Use [...] on filedocumented in this encounter Care Teams Creative Services Designer Relationship Specialty Start Date End Date Alexandria Peñaloza MD PCP - General Internal Medicine 11/21/20 05/13/22 Tom White [address] [place] [phone] PCP - General Internal Medicine 05/14/22 10/06/22 Marisela Goodrich MD [address] [place] [address] PCP - General Internal Medicine 10/07/22 documented as of this encounter
--- OUTSIDE RECORDS SUMMARY | 2024-12-14 10:36 | XMS_ITS | Encounter Summary ---
Author Organization [facility] Address [address] [place] [address] Care Team Providers Care Dance Teacher Name Role Phone Alexandria Peñaloza MD Primary Care Provider Unava Kristy Rush MD Primary Care Provider Un available Alexandria Peñaloza MD Primary Care Provider Unava ilTom Toscano Primary Care Provider [phone] Marisela Goodrich MD Primary Care Provider + Encounter Details Date Type Department Care Team Description 12/31/2013 Welder Production Line Gas Report Medical Records [address] [place] [address] Ba Maharaj MD Social History Tobacco Use Types Packs/Day [...] on filedocumented in this encounter Care Teams Dance Teacher Relationship Specialty Start Date End Date Alexandria Peñaloza MD PCP - General 03/26/10 07/24/20 Kristy Castrejon MD PCP - General Internal Medicine 07/25/20 1 Alexandria Peñaloza MD PCP - General Internal Medicine 11/21/20 05/13/22 Tom White [address] [place] [address] PCP - General Internal Medicine 05/14/22 10/06/22 Marisela Goodrich MD [address] [place] [address] PCP - General Internal Medicine 10/07/22 documented as of this encounter
--- OUTSIDE RECORDS SUMMARY | 2024-12-14 10:36 | XMS_ITS | Encounter Summary ---
Author Organization [facility] Address [address] [place] [address] Care Team Providers Care Electroplating Sales Representative Name Role Phone Marisela Goodrich MD Primary Care Provider + Encounter Details Date Type Department Care Team Description 11/05/2023 Orders Only Medical Records [address] [place] [address] Sam Tinsley MD Social History Tobacco Use [...] Associated Diagnosis Comments OUTSIDE SLEEP STUDY Routine 09/17/2023 documented in this encounter Results * OUTSIDE SLEEP STUDY (09/17/2023) Sam Tinsley MD PULMONOLOGY documented in this encounter Visit Diagnoses Not on filedocumented in this encounter Care Teams Electroplating Sales Representative Relationship Specialty Start Date End Date Marisela Goodrich MD [address] [place] [address] PCP - General Internal Medicine 10/07/22 documented as of this encounter
--- OUTSIDE RECORDS SUMMARY | 2024-12-14 10:36 | XMS_ITS | Encounter Summary ---
Author Organization [facility] Address [address] [place] [address] Care Team Providers Care Nurse'S Assistant Name Role Phone Alexandria Peñaloza MD Primary Care Provider Tom Jane Primary Care Provider [phone] Marisela Goodrich MD Primary Care Provider + Encounter Details Date Type Department Care Team Description 03/27/2021 Field Hockey And Lacrosse Coach Report Medical Records [address] [place] [address] Steve Mina MD Social History Tobacco Use Types Packs/Day [...] have Coronavirus / COVID-19? No / Unsure 03/23/2021 1:35 PM EDT documented as of this encounter Plan of Treatment Not on file documented as of this encounter Visit Diagnoses Not on filedocumented in this encounter Care Teams Nurse'S Assistant Relationship Specialty Start Date End Date Alexandria Peñaloza MD PCP - General Internal Medicine 11/21/20 05/13/22 Tom White [address] [place] [address] PCP - General Internal Medicine 05/14/22 10/06/22 Marisela Goodrich MD [address] [place] [address] PCP - General Internal Medicine 10/07/22 documented as of this encounter
--- OUTSIDE RECORDS SUMMARY | 2024-12-14 10:36 | XMS_ITS | Encounter Summary ---
Author Organization [facility] Address [address] [place] [address] Care Team Providers Care Decision Unit Rn Name Role Phone Alexandria Peñaloza MD Primary Care Provider Unava Kristy Rush MD Primary Care Provider Un available Alexandria Peñaloza MD Primary Care Provider Soniava Tom Booker Primary Care Provider [phone] Marisela Goodrich MD Primary Care Provider + Encounter Details Date Type Department Care Team Description 05/21/2019 [facility] Medical Records [address] [place] [address] Abstract, Provider Social History Tobacco Use Types [...] Rn Relationship Specialty Start Date End Date Alexandria Peñaloza MD PCP - General 03/26/10 07/24/20 Kristy Castrejon MD PCP - General Internal Medicine 07/25/20 1 Alexandria Peñaloza MD PCP - General Internal Medicine 11/21/20 05/13/22 Tom White [address] [place] [address] PCP - General Internal Medicine 05/14/22 10/06/22 Marisela Goodrich MD [address] [place] [address] PCP - General Internal Medicine 10/07/22 documented as of this encounter
--- OUTSIDE RECORDS SUMMARY | 2024-12-14 10:36 | XMS_ITS | Encounter Summary ---
Author Organization [facility] Address [address] [place] [address] Care Team Providers Care Gold Leaf Printer Name Role Phone Kristy Castrejon MD Primary Care Provider Un available Alexandria Peñaloza MD Primary Care Provider Tom Jane Primary Care Provider [phone] Marisela Goodrich MD Primary Care Provider + Encounter Details Date Type Department Care Team Description 10/09/2020 [facility] Medical Records [address] [place] [address] Abstract, Provider Social History Tobacco Use Types [...] have Coronavirus / COVID-19? No / Unsure 09/18/2020 2:49 PM EST documented as of this encounter Plan of Treatment Not on file documented as of this encounter Visit Diagnoses Not on filedocumented in this encounter Care Teams Gold Leaf Printer Relationship Specialty Start Date End Date Kristy Castrejon MD PCP - General Internal Medicine 07/25/20 1 Alexandria Peñaloza MD PCP - General Internal Medicine 11/21/20 05/13/22 Tom White [address] [place] [address] PCP - General Internal Medicine 05/14/22 10/06/22 Marisela Goodrich MD [address] [place] [address] PCP - General Internal Medicine 10/07/22 documented as of this encounter
--- OUTSIDE RECORDS SUMMARY | 2024-12-14 10:36 | XMS_ITS | Encounter Summary ---
Author Organization [facility] Address [address] [place] [address] Care Team Providers Care Near East Archeology Professor Name Role Phone Kristy Castrejon MD Primary Care Provider Un available Alexandria Peñaloza MD Primary Care Provider Tom Jane Primary Care Provider [phone] Marisela Goodrich MD Primary Care Provider + Encounter Details Date Type Department Care Team Description 09/10/2020 [facility] Medical Records [address] [place] [address] Robel Bullock NP Social History Tobacco Use Types Packs/Day [...] on filedocumented in this encounter Care Teams Near East Archeology Professor Relationship Specialty Start Date End Date Kristy Castrejon MD PCP - General Internal Medicine 07/25/20 1 Alexandria Peñaloza MD PCP - General Internal Medicine 11/21/20 05/13/22 Tom White [address] [place] [id number] PCP - General Internal Medicine 05/14/22 10/06/22 Marisela Goodrich MD [address] [place] [address] PCP - General Internal Medicine 10/07/22 documented as of this encounter
[2024-12-15 20:58] LABS: Class Alternaria alternata 0; Class Aspergillus fumigatus 0; Class Bermuda Grass 0; Class Birch 0; Class Cat Dander 0; Class Cladosporium herbarum 0; Class Cockroach 0; Class Common Ragweed 0; Class Cottonwood 0; Class Derm. pterony 3; Class Dermatophagoides farinae 3; Class Dog Dander 0; Class Elm 0; Class Maple Box Elder 0; Class Mountain Cedar 0; Class Mouse Urine Protein 0; Class Mugwort 0; Class Oak 0; Class Penicillium crysogenum 0; Class Rough Pigweed 0; Class Sheep Sorrel 0; Class Sycamore 0; Class Timothy Grass 0; Class Walnut Tree 0; Class White Ash 0; Class White Mulberry 0; D001 IgE D pteronyssinus 6.78 kU/L; D002 - IgE D farinae 5.65 kU/L; E001 - IgE Cat Dander <0.10 kU/L; E005 - IgE Dog Dander <0.10 kU/L; E072-IgE Mouse Urine <0.10 kU/L; G002 IgE Bermuda Grass <0.10 kU/L; G006 - IgE Timothy Grass <0.10 kU/L; I006-IgE Cockroach, German <0.10 kU/L; Immunoglobulin E 24 kU/L (<OR=114); M001 IgE Penicillium chrysogen <0.10 kU/L; M002 - IgE Cladosporium herbar <0.10 kU/L; M003 - IgE Aspergillus fumigat <0.10 kU/L; M006 - IgE Alternaria alternat <0.10 kU/L; T001 IgE Maple/Box Elder <0.10 kU/L; T003 IgE Common Silver Birch <0.10 kU/L; T006 - IgE Cedar, Mountain <0.10 kU/L; T007 - IgE Oak, White <0.10 kU/L; T008 IgE Elm, American <0.10 kU/L; T010 - IgE Walnut <0.10 kU/L; T011 - IgE Maple Leaf Sycamore <0.10 kU/L; T014 - IgE Cottonwood <0.10 kU/L; T015 - IgE Ash, White <0.10 kU/L; T070 - IgE White Mulberry <0.10 kU/L; W001 - IgE Ragweed, Short <0.10 kU/L; W006 - IgE Mugwort <0.10 kU/L; W014 IgE Pigweed, Common <0.10 kU/L; W018 IgE Sheep Sorrel <0.10 kU/L
== END 2024-12-14 09:55 | disposition home or self-care (01) ==
LOC: HO.WFDLDS 09:54
PROVIDERS: Visit Provider Nurse Practitioner Family
DX: Z91.09 Other allergy status, other than to drugs and biological substances (principal)
CPT/HCPCS: 36415; 82785; 86003

== ENCOUNTER 2024-12-15 11:23 | Outpatient (REF) | payer OTHER, SELFPAY ==
--- OUTSIDE RECORDS SUMMARY | 2024-12-15 13:43 | XMS_ITS | Encounter Summary ---
Author Organization [facility] Address [address] [place] [address] Care Team Providers Care Hand Stapler Name Role Phone Alexandria Peñaloza MD Primary Care Provider Unava Kristy Rush MD Primary Care Provider Un available Alexandria Peñaloza MD Primary Care Provider Unava Tom Booker Primary Care Provider [phone] Marisela Goodrich MD Primary Care Provider + Encounter Details Date Type Department Care Team Description 09/18/2015 Pt. Non Urgent Medic al Question Medicine/Pediatrics - [address] [phone] Milagros Ríos FNP Social History Tobacco Use [...] on filedocumented in this encounter Care Teams Hand Stapler Relationship Specialty Start Date End Date Alexandria Peñaloza MD PCP - General 03/26/10 07/24/20 Kristy Castrejon MD PCP - General Internal Medicine 07/25/20 1 Alexandria Peñaloza MD PCP - General Internal Medicine 11/21/20 05/13/22 Tom White [address] [place] [address] PCP - General Internal Medicine 05/14/22 10/06/22 Marisela Goodrich MD [address] [place] [address] PCP - General Internal Medicine 10/07/22 documented as of this encounter
--- OUTSIDE RECORDS SUMMARY | 2024-12-15 13:43 | XMS_ITS | Encounter Summary ---
Author Organization [facility] Address [address] [place] [address] Care Team Providers Care University Partnership Rep Name Role Phone Alexandria Peñaloza MD Primary Care Provider Unava Kristy Rush MD Primary Care Provider Un available Alexandria Peñaloza MD Primary Care Provider Unava Tom Booker Primary Care Provider [phone] Marisela Goodrich MD Primary Care Provider + Encounter Details Date Type Department Care Team Description 11/22/2018 Hospital Medical Records [address] [place] [address] Dany Rose Social History Tobacco Use Types Packs/Day Years [...] on filedocumented in this encounter Care Teams University Partnership Rep Relationship Specialty Start Date End Date Alexandria Peñaloza MD PCP - General 03/26/10 07/24/20 Kristy Castrejon MD PCP - General Internal Medicine 07/25/20 1 Alexandria Peñaloza MD PCP - General Internal Medicine 11/21/20 05/13/22 Tom White [address] [place] [address] PCP - General Internal Medicine 05/14/22 10/06/22 Marisela Goodrich MD [address] [place] [address] PCP - General Internal Medicine 10/07/22 documented as of this encounter
--- OUTSIDE RECORDS SUMMARY | 2024-12-15 13:43 | XMS_ITS | Encounter Summary ---
Author Organization [facility] Address [address] [place] [address] Care Team Providers Care Bag Sorter Name Role Phone Alexandria Peñaloza MD Primary Care Provider Unava Kristy Rush MD Primary Care Provider Un available Alexandria Peñaloza MD Primary Care Provider Unava Tom Booker Primary Care Provider [phone] Marisela Goodrich MD Primary Care Provider + Encounter Details Date Type Department Care Team Description 07/22/2018 Hospital Medical Records [address] [place] [address] Reji Joshi MD Social History Tobacco Use [...] on filedocumented in this encounter Care Teams Bag Sorter Relationship Specialty Start Date End Date Alexandria Peñaloza MD PCP - General 03/26/10 07/24/20 Kristy Castrejon MD PCP - General Internal Medicine 07/25/20 1 Alexandria Peñaloza MD PCP - General Internal Medicine 11/21/20 05/13/22 Tom White [address] [place] [address] PCP - General Internal Medicine 05/14/22 10/06/22 Marisela Goodrich MD [address] [place] [address] PCP - General Internal Medicine 10/07/22 documented as of this encounter
--- OUTSIDE RECORDS SUMMARY | 2024-12-15 13:43 | XMS_ITS | Encounter Summary ---
Author Organization [facility] Address [address] [place] [address] Care Team Providers Care Optical Sales Associate Name Role Phone Alexandria Peñaloza MD Primary Care Provider Unava Kristy Rush MD Primary Care Provider Un available Alexandria Peñaloza MD Primary Care Provider Unava Tom Booker Primary Care Provider Marisela Goodrich MD Primary Care Provider + Encounter Details Date Type Department Care Team Description 04/10/2016 MANAGER ETHICS/[employer] Report Medical Records [address] [place] [address] Abstract, Provider Social History Tobacco Use Types [...] on filedocumented in this encounter Care Teams Optical Sales Associate Relationship Specialty Start Date End Date Alexandria Peñaloza MD PCP - General 03/26/10 07/24/20 Kristy Castrejon MD PCP - General Internal Medicine 07/25/20 1 Alexandria Peñaloza MD PCP - General Internal Medicine 11/21/20 05/13/22 Tom White [address] [place] [address] PCP - General Internal Medicine 05/14/22 10/06/22 Marisela Goodrich MD [address] [place] [address] PCP - General Internal Medicine 10/07/22 documented as of this encounter
--- OUTSIDE RECORDS SUMMARY | 2024-12-15 13:43 | XMS_ITS | Encounter Summary ---
Author Organization [facility] Address [address] [place] [address] Care Team Providers Care Lead Engineer Name Role Phone Alexandria Peñaloza MD Primary Care Provider Unava Kristy Rush MD Primary Care Provider Un available Alexandria Peñaloza MD Primary Care Provider Unava Tom Booker Primary Care Provider [phone] Marisela Goodrich MD Primary Care Provider + Encounter Details Date Type Department Care Team Description 12/17/2018 Orders Only Medical Records [address] [place] [address] Kristy Castreojn MD Social History Tobacco Use Types Packs/Day [...] on filedocumented in this encounter Care Teams Lead Engineer Relationship Specialty Start Date End Date Alexandria Peñaloza MD PCP - General 03/26/10 07/24/20 Kristy Castrejon MD PCP - General Internal Medicine 07/25/20 1 Alexandria Peñaloza MD PCP - General Internal Medicine 11/21/20 05/13/22 Tom White [address] [place], [place] [id number] PCP - General Internal Medicine 05/14/22 10/06/22 Marisela Goodrich MD [address] [place] [address] PCP - General Internal Medicine 10/07/22 documented as of this encounter
--- OUTSIDE RECORDS SUMMARY | 2024-12-15 13:43 | XMS_ITS | Encounter Summary ---
Author Organization [facility] Address [address] [place] [address] Care Team Providers Care Assistant Professor Of Dietetics Name Role Phone Alexandria Peñaloza MD Primary Care Provider Unava Kristy Rush MD Primary Care Provider Un available Alexandria Peñaloza MD Primary Care Provider Unava Tom Booker Primary Care Provider [phone] Marisela Goodrich MD Primary Care Provider + Encounter Details Date Type Department Care Team Description 01/25/2019 Hospital Medical Records [address] [place] [address] Reji Joshi MD Social History Tobacco Use [...] on filedocumented in this encounter Care Teams Assistant Professor Of Dietetics Relationship Specialty Start Date End Date Alexandria Peñaloza MD PCP - General 03/26/10 07/24/20 Kristy Castrejon MD PCP - General Internal Medicine 07/25/20 1 Alexandria Peñaloza MD PCP - General Internal Medicine 11/21/20 05/13/22 Tom White [address] [place] [address] PCP - General Internal Medicine 05/14/22 10/06/22 Marisela Goodrich MD [address] [place] [address] PCP - General Internal Medicine 10/07/22 documented as of this encounter
--- OUTSIDE RECORDS SUMMARY | 2024-12-15 13:43 | XMS_ITS | Encounter Summary ---
Author Organization [facility] Address [address] [place] [address] Care Team Providers Care Spectral Scientist Name Role Phone Kristy Castrejon MD Primary Care Provider Un available Alexandria Peñaloza MD Primary Care Provider Soniava Tom Booker Primary Care Provider [phone] Marisela Goodrich MD Primary Care Provider + Encounter Details Date Type Department Care Team Description 08/25/2020 Refill Medicine/Pediatrics - [address] [phone] India Feldman PA-C Social History Tobacco Use Types Packs/Day [...] encounter Miscellaneous Notes * Telephone Encounter - Angélica Van M.A. - 08/25/2020 9:08 AM EDT Last OV 07/27/20 documented in this encounter Plan of Treatment Not on file documented as of this encounter Visit Diagnoses Not on filedocumented in this encounter Care Teams Spectral Scientist Relationship Specialty Start Date End Date Kristy Castrejon MD PCP - General Internal Medicine 07/25/20 Alexandria Peñaloza MD PCP - General Internal Medicine 11/21/20 05/13/22 Tom White [address] [place] [address] PCP - General Internal Medicine 05/14/22 10/06/22 Marisela Goodrich MD [address] [place] [address] PCP - General Internal Medicine 10/07/22 documented as of this encounter
--- OUTSIDE RECORDS SUMMARY | 2024-12-15 13:43 | XMS_ITS | Encounter Summary ---
Author Organization [facility] Address [address] [place] [address] Care Team Providers Care Seo Marketing Specialist Name Role Phone Alexandria Peñaloza MD Primary Care Provider Unava Kristy Rush MD Primary Care Provider Un available Alexandria Peñaloza MD Primary Care Provider Unava Tom Booker Primary Care Provider [phone] Marisela Goodrich MD Primary Care Provider + Encounter Details Date Type Department Care Team Description 11/24/2018 Hospital Medical Records [address] [place] [address] Preeti Álvarez Social History Tobacco Use Types Packs/Day Years [...] on filedocumented in this encounter Care Teams Seo Marketing Specialist Relationship Specialty Start Date End Date Alexandria Peñaloza MD PCP - General 03/26/10 07/24/20 Kristy Castrejon MD PCP - General Internal Medicine 07/25/20 1 Alexandria Peñaloza MD PCP - General Internal Medicine 11/21/20 05/13/22 Tom White [address] [place] [address] PCP - General Internal Medicine 05/14/22 10/06/22 Marisela Goodrich MD [address] [place] [address] PCP - General Internal Medicine 10/07/22 documented as of this encounter
--- OUTSIDE RECORDS SUMMARY | 2024-12-15 13:43 | XMS_ITS | Encounter Summary ---
Author Organization [facility] Address [address] [place] [address] Care Team Providers Care Stage Settings Painter Name Role Phone Alexandria Peñaloza MD Primary Care Provider Unava Kristy Rush MD Primary Care Provider Un available Alexandria Peñaloza MD Primary Care Provider Unava ilTom Toscano Primary Care Provider [phone] Marisela Goodrich MD Primary Care Provider + Encounter Details Date Type Department Care Team Description 01/12/2016 Sharepoint Designer Developer Report Medical Records [address] [place] [address] Yesenia Alcala Social History Tobacco Use Types [...] on filedocumented in this encounter Care Teams Stage Settings Painter Relationship Specialty Start Date End Date Alexandria Peñaloza MD PCP - General 03/26/10 07/24/20 Kristy Castrejon MD PCP - General Internal Medicine 07/25/20 1 Alexandria Peñaloza MD PCP - General Internal Medicine 11/21/20 05/13/22 Tom White [address] [place] [address] PCP - General Internal Medicine 05/14/22 10/06/22 Marisela Goodrich MD [address] [place] [address] PCP - General Internal Medicine 10/07/22 documented as of this encounter
--- OUTSIDE RECORDS SUMMARY | 2024-12-15 13:43 | XMS_ITS | Encounter Summary ---
Author Organization [facility] Address [address] [place] [address] Care Team Providers Care Liner Installer Name Role Phone Alexandria Peñaloza MD Primary Care Provider Unava Kristy Rush MD Primary Care Provider Un available Alexandria Peñaloza MD Primary Care Provider Unava Tom Booker Primary Care Provider [phone] Marisela Goodrich MD Primary Care Provider + Reason for Visit * Reason Onset Date Comments Prior Authorization 05/29/2016 Encounter Details Date Type Department Care Team Description 05/29/2016 Telephone Medicine/Pediatrics - [address] [phone] Alexandria Peñaloza MD Prior Authorization Social History [...] encounter Miscellaneous Notes * Telephone Encounter - Danica Farmer M.A. - 05/30/2016 9:46 AM EDT Telephone Information: Work Phone Not on file. Called and left message to call the office * Telephone Encounter - Mary Hernandez MD - 05/30/2016 8:26 AM EDT What specific information would you need to start the prior authorization. As noted taken previously without improved. * Telephone Encounter - Philomena Verduzco RN - 05/29/2016 12:58 PM EDT Patient has taken Imodium in the past with no improvement in sx. * Telephone Encounter - Mary Hernandez MD - 05/29/2016 12:13 PM EDT Can you call the patient and see if she has taken immodium in the past and if it has helped or not.She has to have failed it to have the PA started for xifaxin * Telephone Encounter - Danica Farmer M.A. - 05/29/2016 11:13 AM EDT Thank you. When you receive information that she has taken imodium . Please fax to [phone] so I may proceed with a prior authorization . If she has taken imodium then she has met criteria for medication Thank you Please reply back to p [id number] prior authorization pool Lacey Farmer C.M.A. [facility] Prior Authorizations Ext: [id number] * Telephone Encounter - Mary Hernandez MD - 05/29/2016 10:11 AM EDT Okay. Great she already takes this at home but we can send and have future documentation that she has tried this. * Telephone Encounter - Danica Farmer M.A. - 05/29/2016 10:00 AM EDT Rifaximin not covered by insurance.. Must have tried two medications on formulary and failed. . Covered formulary meds: loporamide, diphenoxylate/atropine, biled acid sequstrant, tricyclic antidepressent , SSRI, and antispasmodic. She must use 3 of the above. She have levsin and zoloft so she needs to try the imodium as number 3. Thank you Please reply back to p [phone] prior authorization pool Lacey Farmer C.M.A. [facility] Prior Authorizations Ext: [id number] * Telephone Encounter - Mavis Oh - 05/29/2016 9:11 AM EDT Pre Authorization for Medication Does the patient already have this medication?YES Is this a Cover My Meds request: [place] of Medication xifaxan 550 mg tablet Dose of Medication 500 mg How does patient take this med? Take 1 tab by mouth 3 times daily What other dosage or similar medication have you tried in the past for this problem Patients current medical insurance [facility] What Prescription Plan does the patient have? [facility] Pres[facility] Tel # from back of prescription ID card What is the patients Prescription Plan ID #? What [facility] [place]: [place] / Plan: MED[place]ID [place] / Product Type: MEDICAID [id number] documented in this encounter Plan of Treatment Not on file documented as of this encounter Visit Diagnoses Not on filedocumented in this encounter Care Teams Liner Installer Relationship Specialty Start Date End Date Alexandria Peñaloza MD PCP - General 03/26/10 07/24/20 Kristy Castrejon MD PCP - General Internal Medicine 07/25/20 1 Alexandria Peñaloza MD PCP - General Internal Medicine 11/21/20 05/13/22 Tom White [address] [place] [address] PCP - General Internal Medicine 05/14/22 10/06/22 Marisela Goodrich MD [address] [place] [address] PCP - General Internal Medicine 10/07/22 documented as of this encounter
--- OUTSIDE RECORDS SUMMARY | 2024-12-15 13:43 | XMS_ITS | Encounter Summary ---
Author Organization [facility] Address [address] [place] [address] Care Team Providers Care Taxation Accountant Name Role Phone Alexandria Peñaloza MD Primary Care Provider Unava Kristy Rush MD Primary Care Provider Un available Alexandria Peñaloza MD Primary Care Provider Unava Tom Booker Primary Care Provider [phone] Marisela Goodrich MD Primary Care Provider + Reason for Visit * Reason Onset Date Comments APPOINTMENT 07/23/2018 Encounter Details Date Type Department Care Team Description 07/23/2018 Telephone Medicine/Pediatrics - [address] [phone] Sandy Villa PA-C APPOINTMENT Social History Tobacco Use Types Packs/Day Years [...] Miscellaneous Notes * Telephone Encounter - Ligia Peñaloza RN - 07/23/2018 9:29 AM EDT In the ER was only given fluids Sent Home [facility] 07/08/1807/27 at 9:30 for 30 min * Telephone Encounter - Sandy Villa PA-C - 07/23/2018 8:28 AM EDT Please call patient regarding 15 minute appt scheduled on Friday for fibromyalgia follow up. Patient left by ambulance after seeing Dr. Peñaloza at her last visit. May have been admitted to hospital. Please rebook appropriately for ER follow or hospital follow up for 30 minute visit. Thank you documented in this encounter Plan of Treatment Not on file documented as of this encounter Visit Diagnoses Not on filedocumented in this encounter Care Teams Taxation Accountant Relationship Specialty Start Date End Date Alexandria Peñaloza MD PCP - General 03/26/10 07/24/20 Kristy Castrejon MD PCP - General Internal Medicine 07/25/20 1 Alexandria Peñaloza MD PCP - General Internal Medicine 11/21/20 05/13/22 Tom White [address] [place] [address] PCP - General Internal Medicine 05/14/22 10/06/22 Marisela Goodrich MD [address] [place] [address] PCP - General Internal Medicine 10/07/22 documented as of this encounter
--- OUTSIDE RECORDS SUMMARY | 2024-12-15 13:43 | XMS_ITS | Encounter Summary ---
Author Organization [facility] Address [address] [place] [address] Care Team Providers Care Carpenter Foreman Name Role Phone Alexandria Peñaloza MD Primary Care Provider Unava Kristy Rush MD Primary Care Provider Un available Alexandria Peñaloza MD Primary Care Provider Unava Tom Booker Primary Care Provider [phone] Marisela Goodrich MD Primary Care Provider + Reason for Visit * Reason Comments E-prescribe Rx Request Encounter Details Date Type Department Care Team Description 02/06/2019 Refill Medicine/Pediatrics - [address] [address] Alexandria Peñaloza MD E-prescribe Rx Request Social [...] Telephone Encounter - Alexandria Peñaloza MD - 02/08/2019 1:02 PM EDT Needs uds. Duplicate request on the Lyrica. If pt is still on omeprazole it needs to be changed to a different PPI; she just had abd surgery/fundiplication so meds may have changed. Needs appt. * Telephone Encounter - Ruthy Patel R.N. - 02/08/2019 11:30 AM EDT Last refills:lyrica 12/28/18 Citalopram 12/15/18 Lab Results Component Value Date URINEOXYCOD NEGATIVE 11/06/2017 URBENZO POSITIVE 11/06/2017 URAMPHETAMIN NEGATIVE 11/06/2017 URMARIJUANA NEGATIVE 11/06/2017 UROPIATES NEGATIVE 11/06/2017 URBARBITUATE NEGATIVE 11/06/2017 URCOCAINE NEGATIVE 11/06/2017 HYDROCODONE Negative 07/26/2016 Controlled substance contract and last issue date of medication reviewed. Patient is due for medication. * Telephone Encounter - Haylie Violet - 02/08/2019 8:11 AM EDT Patient would like script to be: E-PRESCRIBED/FAXED TO PHARMACY WHEN WAS THE PATIENT'S LAST APPOINTMENT IN ADULT MEDICINE? 12/07/18 WHEN WAS THE LAST TIME THE PATIENT SAW THEIR PCP? Same as above Does patient have an upcoming appointment? NO [...] N/A Patients current insurance carrier is: Payor: [employer] FFS / Plan: [facility] [employer] / Product Type: MEDICAID RISK documented in this encounter Plan of Treatment Scheduled Orders Name Type Priority Associated Diagnoses Orde r Schedule CHG DRUG SCREENING CANNABINOIDS NATURAL Lab Routine Encounter for long-term (current) use of medications Expected: 02/08/2019, Expires: 02/08/2020 CHG DRUG SCREENING COCAINE Lab Routine Encounter for long-term (current) use of medications Expected: 02/08/2019, Expires: 02/08/2020 CHG DRUG SCREEN QUANT AMPHETAMINES 3 OR 4 Lab Routine Encounter for long-term (current) use of medications Expected: 02/08/2019, Expires: 02/08/2020 CHG DRUG/SUBSTANCE DEFINITIVE QUAL/QUANT NOS 1-3 (BARBITUATES) Lab Routine Encounter for long-term (current) use of medications Expected: 02/08/2019, Expires: 02/08/2020 CHG DRUG SCREENING BENZODIAZEPINES 1-12 Lab Routine Encounter for long-term (current) use of medications Expected: 02/08/2019, Expires: 02/08/2020 documented as of this encounter Results * OXYCODONE, URINE (04/14/2019 3:57 PM EDT) URINE OXYCODONE NONE DETECTED ND 04/14/2019 7:21 PM EDT [facility] Comment: Assay cutoff 100 ng/mL Semi-quantitative assay for screening purposes only. Unconfirmed screening result should not be used for non-medical purposes. *ALTERNATE METHOD CONFIRMATION DONE UPON REQUEST ONLY* 04/14/2019 3:57 PM EDT 04/14/2019 3:57 PM EDT Alexandria Peñaloza MD LAB [facility] * DRUG OF ABUSE SCREEN (04/14/2019 3:57 PM EDT) BENZODIAZEPINE, URINE NONE DETECTED ND 04/14/2019 7:21 PM EDT [facility] Comment: Assay cutoff 200 ng/mL Semi-quantitative assay for screening purposes only. Unconfirmed screening result should not be used for non-medical purposes. *ALTERNATE METHOD CONFIRMATION DONE UPON REQUEST ONLY* OPIATES, URINE NONE DETECTED ND 04/14/2019 7:21 PM EDT [facility] Comment: Assay cutoff 300 ng/mL Semi-quantitative assay for screening purposes only. Unconfirmed screening result should not be used for non-medical purposes. *ALTERNATE METHOD CONFIRMATION DONE UPON REQUEST ONLY* BARBITURATES, URINE NONE DETECTED ND 04/14/2019 7:21 PM EDT [facility] Comment: Assay cutoff 200 ng/mL Semi-quantitative assay for screening purposes only. Unconfirmed screening result should not be used for non-medical purposes. *ALTERNATE METHOD CONFIRMATION DONE UPON REQUEST ONLY* PAIN AMPHETAMINES NONE DETECTED ND 04/14/2019 7:21 PM EDT [facility] Comment: Assay cutoff 1000 ng/mL Semi-quantitative assay for screening purposes only. Unconfirmed screening result should not be used for non-medical purposes. *POSITIVE RESULTS ARE AUTOMATICALLY SENT FOR ALTERNATE METHOD CONFIRMATION* PAIN COCAINE NONE DETECTED ND 04/14/2019 7:21 PM EDT [facility] Comment: Assay cutoff 300 ng/mL Semi-quantitative assay for screening purposes only. Unconfirmed screening result should not be used for non-medical purposes. *POSITIVE RESULTS ARE AUTOMATICALLY SENT FOR ALTERNATE METHOD CONFIRMATION* PAIN CANNABINOID NONE DETECTED ND 04/14/2019 7:21 PM EDT [facility] Comment: Assay cutoff 50 ng/mL Semi-quantitative assay for screening purposes only. Unconfirmed screening result should not be used for non-medical purposes. *POSITIVE RESULTS ARE AUTOMATICALLY SENT FOR ALTERNATE METHOD CONFIRMATION* 04/14/2019 3:57 PM EDT 04/14/2019 3:57 PM EDT Alexandria Peñaloza MD LAB [facility] * CHG DRUG SCREENING OPIATES 1 OR MORE (04/14/2019 3:57 PM EDT) Codeine GCMS Negative ng/mL 04/19/2019 12:57 PM EDT [facility] Morphine GCMS Negative ng/mL 04/19/2019 12:57 PM EDT [facility] Hydromorphone GCMS Negative ng/mL 2018 12:57 PM EDT [facility] Hydrocodone GCMS Negative ng/mL 04/19/20 12:57 PM EDT [facility] PAIN OPIATE CREAT 100 20 - 250 mg/dL 04/19/2019 12:57 PM EDT [facility] PAIN OPIATE ADULTERANT Negative 04/19/2019 12:57 PM EDT [facility] Comment: ? Confirmation (LC/MS/MS) Decision Limits ??Morphine ?25 ng/mL ??Codeine ? 25 ng/mL ??Hydrocodone ? 25 ng/mL ??Hydromorphone ? 25 ng/mL ??Oxycodone ? 25 ng/mL ??Oxymorphone ? 25 ng/mL ??Adulterant Decision Limit: ?? General Oxidants ? 200 ug/mL ??The adulterant assay tests for General Oxidants, ??including Chromates and Nitrites. ??Adulterants are ??substances either ingested or added directly to a ??urine specimen to prevent the detection of drug use. If applicable, any drug confirmation testing reported here was developed and the performance characteristics determined by [facility]. This confirmation testing has not been cleared or approved by the FDA. The laboratory is regulated under CLIA as qualified to perform high-complexity testing. This test is used for patient testing purposes. It should not be regarded as investigational or for research. Test performed at [facility], [facility] [place] [address] ??[address] ? [phone] Sam Caban MD ??- [employer] Oxycodone GCMS Negative ng/mL 04/19/2019 12:57 PM EDT [facility] Oxymorphone GCMS Negative ng/mL 04/19/20 19 12:57 PM EDT [facility] 04/14/2019 3:57 PM EDT 04/14/2019 3:57 PM EDT Alexandria Peñaloza MD LAB Performing Organization Address City/State/[facility] Co de Phone Number [facility] documented in this encounter Visit Diagnoses Diagnosis Encounter for long-term (current) use of medications- Primary Encounter for long-term (current) use of other medications documented in this encounter Care Teams Carpenter Foreman Relationship Specialty Start Date End Date Alexandria Peñaloza MD PCP - General 03/26/10 07/24/20 Kristy Castrejon MD PCP - General Internal Medicine 07/25/20 1 Alexandria Peñaloza MD PCP - General Internal Medicine 11/21/20 05/13/22 Tom White [address] [place] [address] PCP - General Internal Medicine 05/14/22 10/06/22 Marisela Goodrich MD [address] [place] [address] PCP - General Internal Medicine 10/07/22 documented as of this encounter
--- OUTSIDE RECORDS SUMMARY | 2024-12-15 13:43 | XMS_ITS | Encounter Summary ---
Author Organization [facility] Address [address] [place] [address] Care Team Providers Care Vocational Trainer Name Role Phone Alexandria Peñaloza MD Primary Care Provider UnaKristy Negro MD Primary Care Provider Un available Alexandria Peñaloza MD Primary Care Provider Unava Tom Booker Primary Care Provider [phone] Marisela Goodrich MD Primary Care Provider + Encounter Details Date Type Department Care Team Description 04/25/2016 [facility] Medical Records [address] [place] [id number] Abstract, Provider Pneumonia of left lower lobe [...] organism documented in this encounter Care Teams Vocational Trainer Relationship Specialty Start Date End Date Alexandria Peñaloza MD PCP - General 03/26/10 07/24/20 Kristy Castrejon MD PCP - General Internal Medicine 07/25/20 1 Alexandria Peñaloza MD PCP - General Internal Medicine 11/21/20 05/13/22 Tom White [address] [place], [place] [id number] PCP - General Internal Medicine 05/14/22 10/06/22 Marisela Goodrich MD [address] [place] [address] PCP - General Internal Medicine 10/07/22 documented as of this encounter
--- OUTSIDE RECORDS SUMMARY | 2024-12-15 13:43 | XMS_ITS | Encounter Summary ---
Author Organization [facility] Address [address] [place] [address] Care Team Providers Care Typing Bookkeeper Name Role Phone Alexandria Peñaloza MD Primary Care Provider Unava Kristy Rush MD Primary Care Provider Un available Alexandria Peñaloza MD Primary Care Provider Unava Tom Booker Primary Care Provider [phone] Marisela Goodrich MD Primary Care Provider + Encounter Details Date Type Department Care Team Description 05/23/2016 [facility] Medical Records [address] [place] [address] India Yates MD Social History Tobacco Use [...] on filedocumented in this encounter Care Teams Typing Bookkeeper Relationship Specialty Start Date End Date Alexandria Peñaloza MD PCP - General 03/26/10 07/24/20 Kristy Castrejon MD PCP - General Internal Medicine 07/25/20 1 Alexandria Peñaloza MD PCP - General Internal Medicine 11/21/20 05/13/22 Tom White [address] [place] [address] PCP - General Internal Medicine 05/14/22 10/06/22 Marisela Goodrich MD [address] [place] [address] PCP - General Internal Medicine 10/07/22 documented as of this encounter
--- OUTSIDE RECORDS SUMMARY | 2024-12-15 13:44 | XMS_ITS | Encounter Summary ---
Author Organization [facility] Address [address] [place] [address] Care Team Providers Care Production Operator Name Role Phone Tom White Primary Care Provider [phone] Marisela Goodrich MD Primary Care Provider + Reason for Visit * Reason Comments E-prescribe Rx Request Encounter Details Date Type Department Care Team Description 05/19/2022 Refill Medicine/Pediatrics - [address] [address] Alexandria Peñaloza MD E-prescribe Rx Request Social [...] N/A Patients current insurance carrier is: Payor: [employer] FFS / Plan: [employer] / Product Type: MEDICAID RISK documented in this encounter Plan of Treatment Not on file documented as of this encounter Visit Diagnoses Diagnosis Acute nasopharyngitis Acute nasopharyngitis (common cold) Exercise-induced asthma Exercise induced bronchospasm documented in this encounter Care Teams Production Operator Relationship Specialty Start Date End Date Tom White [address] [place] [phone] PCP - General Internal Medicine 05/14/22 10/06/22 Marisela Goodrich MD [address] [place], [place] [phone] PCP - General Internal Medicine 10/07/22 documented as of this encounter
--- OUTSIDE RECORDS SUMMARY | 2024-12-15 13:44 | XMS_ITS | Encounter Summary ---
Author Organization [facility] Address [address] [place] [address] Care Team Providers Care Pad Machine Offbearer Name Role Phone Alexandria Peñaloza MD Primary Care Provider Kristy Milan MD Primary Care Provider Un available Alexandria Peñaloza MD Primary Care Provider Soniava Tom Booker Primary Care Provider [phone] Marisela Goodrich MD Primary Care Provider + Encounter Details Date Type Department Care Team Description 04/14/2018 [facility] Medical Records [address] [place] [address] Social History Tobacco Use Types Packs/Day Years [...] on filedocumented in this encounter Care Teams Pad Machine Offbearer Relationship Specialty Start Date End Date Alexandria Peñaloza MD PCP - General 03/26/10 07/24/20 Kristy Castrejon MD PCP - General Internal Medicine 07/25/20 1 Alexandria Peñaloza MD PCP - General Internal Medicine 11/21/20 05/13/22 Tom White [address] [place] [address] PCP - General Internal Medicine 05/14/22 10/06/22 Marisela Goodrich MD [address] [place] [address] PCP - General Internal Medicine 10/07/22 documented as of this encounter
--- OUTSIDE RECORDS SUMMARY | 2024-12-15 13:44 | XMS_ITS | Encounter Summary ---
Author Organization [facility] Address [address] [place] [address] Care Team Providers Care Medical Office Worker Name Role Phone Alexandria Peñaloza MD Primary Care Provider UnaKristy Negro MD Primary Care Provider Un available Alexandria Peñaloza MD Primary Care Provider Unava Tom Booker Primary Care Provider [phone] Marisela Goodrich MD Primary Care Provider + Encounter Details Date Type Department Care Team Description 02/15/2020 [facility] Visit Medical Records [address] [place] [address] Reji Hensley [address] [place] [address] Social History Tobacco Use Types Packs/Day Years [...] filedocumented in this encounter Care Teams Medical Office Worker Relationship Specialty Start Date End Date Alexandria Peñaloza MD PCP - General 03/26/10 07/24/20 Kristy Castrejon MD PCP - General Internal Medicine 07/25/20 1 Alexandria Peñaloza MD PCP - General Internal Medicine 11/21/20 05/13/22 Tom White [address] [place] [address] PCP - General Internal Medicine 05/14/22 10/06/22 Marisela Goodrich MD [address] [place] [address] PCP - General Internal Medicine 10/07/22 documented as of this encounter
--- OUTSIDE RECORDS SUMMARY | 2024-12-15 13:44 | XMS_ITS | Encounter Summary ---
Author Organization [facility] Address [address] [place] [address] Care Team Providers Care Twister Tender Paper Name Role Phone Tom White Primary Care Provider Marisela Goodrich MD Primary Care Provider + Encounter Details Date Type Department Care Team Description 08/23/2022 Bee Keeper Report Medical Records [address] [place] [address] Tom White [address] [place] [address] Social History Tobacco Use Types Packs/Day Years [...] on filedocumented in this encounter Care Teams Twister Tender Paper Relationship Specialty Start Date End Date Tom White [address] [place] [address] PCP - General Internal Medicine 05/14/22 10/06/22 Marisela Goodrich MD [address] [place] [address] PCP - General Internal Medicine 10/07/22 documented as of this encounter
--- OUTSIDE RECORDS SUMMARY | 2024-12-15 13:44 | XMS_ITS | Encounter Summary ---
Author Organization [facility] Address [address] [place] [address] Care Team Providers Care Supercalender Operator Name Role Phone Alexandria Peñaloza MD Primary Care Provider Tom Jane Primary Care Provider [phone] Marisela Goodrich MD Primary Care Provider + Encounter Details Date Type Department Care Team Description 11/05/2021 Pt. Non Urgent Medic al Question Medicine/Pediatrics - [address] [address] Alexandria Peñaloza MD Social History Tobacco Use [...] encounter Miscellaneous Notes * Telephone Encounter - Román Mason - 11/05/2021 9:42 AM ESTFrom: Sandy Santana To: Joel Peñaloza Sent: 11/05/2021 5:46 AM EST Subject: Cholesterol So i do need medication or I do not? Also, I forgot to ask about my high blood pressure medicine I was on. I have not had that in a few months. documented in this encounter Plan of Treatment Not on file documented as of this encounter Visit Diagnoses Not on filedocumented in this encounter Care Teams Supercalender Operator Relationship Specialty Start Date End Date Alexandria Peñaloza MD PCP - General Internal Medicine 11/21/20 05/13/22 Tom White [address] [place] [address] PCP - General Internal Medicine 05/14/22 10/06/22 Marisela Goodrich MD [address] [place], [place] [phone] PCP - General Internal Medicine 10/07/22 documented as of this encounter
--- OUTSIDE RECORDS SUMMARY | 2024-12-15 13:44 | XMS_ITS | Encounter Summary ---
Author Organization [facility] Address [address] [place] [address] Care Team Providers Care Creative Art Director Name Role Phone Alexandria Peñaloza MD Primary Care Provider Unava Kristy Rush MD Primary Care Provider Un available Alexandria Peñaloza MD Primary Care Provider Unava Tom Booker Primary Care Provider [phone] Marisela Goodrich MD Primary Care Provider + Encounter Details Date Type Department Care Team Description 10/06/2016 [facility] Medical Records [address] [place] [address] Social History Tobacco Use Types Packs/Day Years [...] filedocumented in this encounter Care Teams Creative Art Director Relationship Specialty Start Date End Date Alexandria Peñaloza MD PCP - General 03/26/10 07/24/20 Kristy Castrejon MD PCP - General Internal Medicine 07/25/20 1 Alexandria Peñaloza MD PCP - General Internal Medicine 11/21/20 05/13/22 Tom White [address] [place] [address] PCP - General Internal Medicine 05/14/22 10/06/22 Marisela Goodrich MD [address] [place] [address] PCP - General Internal Medicine 10/07/22 documented as of this encounter
--- OUTSIDE RECORDS SUMMARY | 2024-12-15 13:44 | XMS_ITS | Encounter Summary ---
Author Organization [facility] Address [address] [place] [address] Care Team Providers Care Flight Test Mechanic Name Role Phone Tom White Primary Care Provider Marisela Goodrich MD Primary Care Provider + Reason for Visit * Reason Onset Date Comments Mychart Rx Refill 09/06/2022 Encounter Details Date Type Department Care Team Description 09/06/2022 Refill Medicine/Pediatrics - [address] [address] Aye Ortega PA-C [address] [place] [address] Mychart Rx Refill Social History Tobacco Use [...] on filedocumented in this encounter Care Teams Flight Test Mechanic Relationship Specialty Start Date End Date Tom White [address] [place] [address] PCP - General Internal Medicine 05/14/22 10/06/22 Marisela Goodrich MD [address] [place] [address] PCP - General Internal Medicine 10/07/22 documented as of this encounter
--- OUTSIDE RECORDS SUMMARY | 2024-12-15 13:44 | XMS_ITS | Encounter Summary ---
Author Organization [facility] Address [address] [place] [address] Care Team Providers Care Civil Laboratory Technician Name Role Phone Tom White Primary Care Provider [phone] Marisela Goodrich MD Primary Care Provider + Encounter Details Date Type Department Care Team Description 09/05/2022 Refill Medicine/Pediatrics - [address] [address] Tatum Thomas PA-C Social History Tobacco Use [...] 150 Mg Tablet 60 30 Wi Krystian [id number] [facility] 0/5 1.20 [facility] 08/19/2022 04/01/2022 1 Lorazepam 2 Mg Tablet 30 30 Jalyn Woj [id number] [facility] (14[facility] 4/4 2.00 [place] 08/05/2022 06/07/2022 1 Lacosamide 150 Mg Tablet 60 30 Wi Krystian [id number] [facility] (14[facility] 2/5 1.20 [place] 08/01/2022 05/22/2022 1 Pregabalin 75 Mg Capsule 60 30 Al Fru [id number] [facility] (1450) 2/2 1.00 [place] 07/16/2022 07/16/2022 1 Clonazepam 0.5 Mg Tablet 15 30 Sh Dev [id number] [facility] (1450) 0/0 0.50 [place] 07/12/2022 04/01/2022 1 Lorazepam 2 Mg Tablet 30 30 Jalyn Woj [id number] [facility] (14[facility]) 3/4 2.00 [place] 07/06/2022 06/07/2022 1 Lacosamide 150 Mg Tablet 60 30 Wi Krystian [id number] [facility] (1450[facility] 1/5 1.20 [place] 06/27/2022 05/22/2022 1 Pregabalin 75 Mg Capsule 60 30 Al Fru [id number] [facility] (1450) 1/2 1.00 [place] 06/11/2022 04/01/2022 1 Lorazepam 2 Mg Tablet 30 30 Jalyn Woj [id number] [facility] (1450[facility] 2/4 2.00 [place] 06/07/2022 06/07/2022 1 Lacosamide 150 Mg Tablet 60 30 Wi Krystian [id number] [facility] (1450) 0/5 1.20 L[place] 05/22/2022 05/22/2022 1 Oxycodone-Acetaminophen 5-325 14 14 Al Fru [id number] [facility] (1450[facility] 0/0 7.50 [place] 05/22/2022 05/22/2022 1 Pregabalin 75 Mg Capsule 60 30 Al Fru [id number] [facility] (1450[facility] 0/2 1.00 [place] 05/10/2022 04/01/2022 1 Lorazepam 2 Mg Tablet 30 30 Jalyn Woj [id number] [facility] (14[facility] 1/ 2.00 [place] 05/05/2022 04/24/2022 1 Clonazepam 0.5 Mg Tablet 15 30 Sh Dev [id number] [facility] (14[facility] 0/0 0.50 [place] 05/03/2022 11/19/2021 1 Lacosamide 150 Mg Tablet 60 30 Jalyn Woj [id number] [facility] (1450) 03/21 1.20 [place] documented in this encounter Plan of Treatment Not on file documented as of this encounter Visit Diagnoses Not on filedocumented in this encounter Care Teams Civil Laboratory Technician Relationship Specialty Start Date End Date Tom White [address] [place] [address] PCP - General Internal Medicine 05/14/22 10/06/22 Marisela Goodrich MD [address] [place] [address] PCP - General Internal Medicine 10/07/22 documented as of this encounter
--- OUTSIDE RECORDS SUMMARY | 2024-12-15 13:44 | XMS_ITS | Encounter Summary ---
Author Organization [facility] Address [address] [place] [address] Care Team Providers Care Financial Risk Manager Name Role Phone Alexandria Peñaloza MD Primary Care Provider Kristy Milan MD Primary Care Provider Un available Alexandria Peñaloza MD Primary Care Provider Soniava Tom Booker Primary Care Provider [phone] Marisela Goodrich MD Primary Care Provider + Encounter Details Date Type Department Care Team Description 04/11/2018 [facility] Medical Records [address] [place] [address] Social History Tobacco Use Types Packs/Day Years [...] on filedocumented in this encounter Care Teams Financial Risk Manager Relationship Specialty Start Date End Date Alexandria Peñaloza MD PCP - General 03/26/10 07/24/20 Kristy Castrejon MD PCP - General Internal Medicine 07/25/20 1 Alexandria Peñaloza MD PCP - General Internal Medicine 11/21/20 05/13/22 Tom White [address] [place] [address] PCP - General Internal Medicine 05/14/22 10/06/22 Marisela Goodrich MD [address] [place] [address] PCP - General Internal Medicine 10/07/22 documented as of this encounter
--- OUTSIDE RECORDS SUMMARY | 2024-12-15 13:44 | XMS_ITS | Encounter Summary ---
Author Organization [facility] Address [address] [place] [address] Care Team Providers Care Industrial Cafeteria Manager Name Role Phone Tom White Primary Care Provider [phone] Marisela Goodrich MD Primary Care Provider + Encounter Details Date Type Department Care Team Description 07/10/2022 Pt. Referral Request [facility] [address] [place] [address] Md Adis Social History Tobacco Use Types [...] on filedocumented in this encounter Care Teams Industrial Cafeteria Manager Relationship Specialty Start Date End Date Tom White [address] [place] [address] PCP - General Internal Medicine 05/14/22 10/06/22 Marisela Goodrich MD [address] [place] [address] PCP - General Internal Medicine 10/07/22 documented as of this encounter
--- OUTSIDE RECORDS SUMMARY | 2024-12-15 13:44 | XMS_ITS | Encounter Summary ---
Author Organization [facility] Address [address] [place] [address] Care Team Providers Care Auditing Clerk Name Role Phone Tom White Primary Care Provider [phone] Marisela Goodrich MD Primary Care Provider + Reason for Visit * Reason Onset Date Comments Prior Authorization 06/26/2022 Encounter Details Date Type Department Care Team Description 06/26/2022 Telephone Medicine/Pediatrics - [address] [address] Tatum Thomas PA-C Prior Authorization Social History [...] My Meds request: Yes -- Winkler Code [id number] Name of Medication pregabalin (LYRICA) Dose of Medication 75 MG capsule What is the RX # from the faxed refill? How does patient take this med? TAKE 1 CAPSULE BY MOUTH TWICE A DAY What Pharmacy did the fax come from: [facility] Pharmacy fax #: [phone] Third Libertarian Information from fax: What Prescription Plan does the patient have? [facility] BIN/PCN if applicable: Cardholder ID: Person Code: Relationship Code: Help desk phone: documented in this encounter Plan of Treatment Not on file documented as of this encounter Visit Diagnoses Not on filedocumented in this encounter Care Teams Auditing Clerk Relationship Specialty Start Date End Date Tom White [address] [place] [address] PCP - General Internal Medicine 05/14/22 10/06/22 Marisela Goodrich MD [address] [place] [address] PCP - General Internal Medicine 10/07/22 documented as of this encounter
--- OUTSIDE RECORDS SUMMARY | 2024-12-15 13:44 | XMS_ITS | Encounter Summary ---
Author Organization [facility] Address [address] [place] [address] Care Team Providers Care X Ray Service Engineer Name Role Phone Alexandria Peñaloza MD Primary Care Provider Unava Kristy Rush MD Primary Care Provider Un available Alexandria Peñaloza MD Primary Care Provider Unava Tom Booker Primary Care Provider [phone] Marisela Goodrich MD Primary Care Provider + Encounter Details Date Type Department Care Team Description 04/09/2018 Hospital Medical Records [address] [place] [address] Ayesha Weaver MD Social History Tobacco Use [...] on filedocumented in this encounter Care Teams X Ray Service Engineer Relationship Specialty Start Date End Date Alexandria Peñaloza MD PCP - General 03/26/10 07/24/20 Kristy Castrejon MD PCP - General Internal Medicine 07/25/20 1 Alexandria Peñaloza MD PCP - General Internal Medicine 11/21/20 05/13/22 Tom White [address] [place] [address] PCP - General Internal Medicine 05/14/22 10/06/22 Marisela Goodrich MD [address] [place] [address] PCP - General Internal Medicine 10/07/22 documented as of this encounter
--- OUTSIDE RECORDS SUMMARY | 2024-12-15 13:44 | XMS_ITS | Encounter Summary ---
Author Organization [facility] Address [address] [place] [address] Care Team Providers Care Drawer Waxer Name Role Phone Alexandria Peñaloza MD Primary Care Provider Unava Kristy Rush MD Primary Care Provider Un available Alexandria Peñaloza MD Primary Care Provider Unava ilable Tom White Primary Care Provider [phone] Marisela Goodrich MD Primary Care Provider + Encounter Details Date Type Department Care Team Description 04/27/2018 Hospital Medical Records [address] [place] [address] Fran [address] [place] [address], 3rd [address] [place] [address] Social History Tobacco Use Types Packs/Day Years [...] on filedocumented in this encounter Care Teams Drawer Waxer Relationship Specialty Start Date End Date Alexandria Peñaloza MD PCP - General 03/26/10 07/24/20 Kristy Castrejon MD PCP - General Internal Medicine 07/25/20 Alexandria Peñaloza MD PCP - General Internal Medicine 11/21/20 05/13/22 Tom White [address] [place] [address] PCP - General Internal Medicine 05/14/22 10/06/22 Marisela Goodrich MD [address] [place] [address] PCP - General Internal Medicine 10/07/22 documented as of this encounter
--- OUTSIDE RECORDS SUMMARY | 2024-12-15 13:44 | XMS_ITS | Encounter Summary ---
Author Organization [facility] Address [address] [place] [address] Care Team Providers Care Solar Systems Designer Name Role Phone Alexandria Peñaloza MD Primary Care Provider Unava Kristy Rush MD Primary Care Provider Un available Alexandria Peñaloza MD Primary Care Provider Unava ilable Tom White Primary Care Provider [phone] Marisela Goodrich MD Primary Care Provider + Reason for Visit * Reason Onset Date Comments Call From Pharmacy 12/22/2019 Encounter Details Date Type Department Care Team Description 12/22/2019 Telephone OBN - [address] [address] Robel Mares MD Call From Pharmacy Social [...] - 12/22/2019 11:44 AM EST pts pharmacy [facility] in [place] is calling states the pt is using [...] on filedocumented in this encounter Care Teams Solar Systems Designer Relationship Specialty Start Date End Date Alexandria Peñaloza MD PCP - General 03/26/10 07/24/20 Kristy Castrejon MD PCP - General Internal Medicine 07/25/20 1 Alexandria Peñaloza MD PCP - General Internal Medicine 11/21/20 05/13/22 Tom White [address] [place] [address] PCP - General Internal Medicine 05/14/22 10/06/22 Marisela Goodrich MD [address] [place] [address] PCP - General Internal Medicine 10/07/22 documented as of this encounter
--- OUTSIDE RECORDS SUMMARY | 2024-12-15 13:44 | XMS_ITS | Encounter Summary ---
Author Organization [facility] Address [address] [place] [address] Care Team Providers Care Tin Cutter Name Role Phone Tom White Primary Care Provider [phone] Marisela Goodrich MD Primary Care Provider + Reason for Visit * Reason Comments E-prescribe Rx Request Encounter Details Date Type Department Care Team Description 08/01/2022 Refill Medicine/Pediatrics - [address] [address] Tatum Thomas PA-C E-prescribe Rx Request Social [...] encounter Miscellaneous Notes * Telephone Encounter - Virgie Pardo M.A. - 08/02/2022 4:10 PM EDT Last office visit 05/22/22 Next office visit 09/24/22 with new PCP Lab Results Component Value Date [id number] 18 01/17/2016 * Telephone Encounter - Rohit Segura - 08/02/2022 3:42 PM EDT Patient would like script to be: E-PRESCRIBED/FAXED TO PHARMACY ?? WHEN WAS THE PATIENT'S LAST APPOINTMENT IN ADULT MEDICINE? 05/22/22 ?? WHEN WAS THE LAST TIME THE PATIENT SAW THEIR PCP? Hasnt seen new pcp yet ?? Does patient have an upcoming appointment? Yes 09/24/22 ?? (THE MEDICATION REQUESTED IS ON THE MED LIST ABOVE) All of the medications requested were on the CURRENT MEDS list ?? Did you check the Pharmacy information above?: YES ?? Patient wants: 30 -day supply ?? Is this a mail order prescription request ? NO ?? If the refill is from a FAXED refill request what is the RX # listed on the fax? N/A ?? Patients current insurance carrier is: Payor: [facility] / Plan: [facility] / Product Type: MEDICAID RISK ?? documented in this encounter Plan of Treatment Not on file documented as of this encounter Visit Diagnoses Not on filedocumented in this encounter Care Teams Tin Cutter Relationship Specialty Start Date End Date Tom White [address] [place], [place] [id number] PCP - General Internal Medicine 05/14/22 10/06/22 Marisela Goodrich MD [address] [place], [place] [id number] PCP - General Internal Medicine 10/07/22 documented as of this encounter
--- OUTSIDE RECORDS SUMMARY | 2024-12-15 13:44 | XMS_ITS | Encounter Summary ---
Author Organization [facility] Address [address] [place] [address] Care Team Providers Care Dray Driver Name Role Phone Alexandria Peñaloza MD Primary Care Provider Unava Kristy Rush MD Primary Care Provider Un available Alexandria Peñaloza MD Primary Care Provider Unava Tom Booker Primary Care Provider [phone] Marisela Goodrich MD Primary Care Provider + Encounter Details Date Type Department Care Team Description 10/02/2016 [facility] Medical Records [address] [place] [address] Sandy Harrington Social History Tobacco Use Types [...] on filedocumented in this encounter Care Teams Dray Driver Relationship Specialty Start Date End Date Alexandria Peñaloza MD PCP - General 03/26/10 07/24/20 Kristy Castrejon MD PCP - General Internal Medicine 07/25/20 1 Alexandria Peñaloza MD PCP - General Internal Medicine 11/21/20 05/13/22 Tom White [address] [place] [address] PCP - General Internal Medicine 05/14/22 10/06/22 Marisela Goodrich MD [address] [place] [address] PCP - General Internal Medicine 10/07/22 documented as of this encounter
--- OUTSIDE RECORDS SUMMARY | 2024-12-15 13:44 | XMS_ITS | Encounter Summary ---
Author Organization [facility] Address [address] [place] [address] Care Team Providers Care Sugar Cane Planter Machine Operator Name Role Phone Alexandria Peñaloza MD Primary Care Provider Unava Kristy Rush MD Primary Care Provider Un available Alexandria Peñaloza MD Primary Care Provider Unava ilTom Toscano Primary Care Provider [phone] Marisela Goodrich MD Primary Care Provider + Encounter Details Date Type Department Care Team Description 08/15/2016 Mattress Filling Machine Tender Report Medical Records [address] [place] [address] Stephen Reynolds MD Social History Tobacco Use [...] on filedocumented in this encounter Care Teams Sugar Cane Planter Machine Operator Relationship Specialty Start Date End Date Alexandria Peñaloza MD PCP - General 03/26/10 07/24/20 Kristy Castrejon MD PCP - General Internal Medicine 07/25/20 1 Alexandria Peñaloza MD PCP - General Internal Medicine 11/21/20 05/13/22 Tom White [address] [place] [address] PCP - General Internal Medicine 05/14/22 10/06/22 Marisela Goodrich MD [address] [place] [address] PCP - General Internal Medicine 10/07/22 documented as of this encounter
--- OUTSIDE RECORDS SUMMARY | 2024-12-15 13:44 | XMS_ITS | Encounter Summary ---
Author Organization [facility] Address [address] [place] [address] Care Team Providers Care Metal Sander And Finisher Name Role Phone Alexandria Peñaloza MD Primary Care Provider Tom Jane Primary Care Provider [phone] Marisela Goodrich MD Primary Care Provider + Reason for Visit * Reason Onset Date Comments radiology 11/23/2021 Encounter Details Date Type Department Care Team Description 11/23/2021 Telephone MRI - [place] [address] [place] [address] Aye Ortega PA-C [address] [place] [address] radiology Social History Tobacco Use Types Packs/Day [...] and will need to be scanned at [facility] on open mri machine due to her BMI. Can you please place external order? Thank you, [facility] Mri department ext [phone] documented in this encounter Plan of Treatment Not on file documented as of this encounter Visit Diagnoses Not on filedocumented in this encounter Care Teams Metal Sander And Finisher Relationship Specialty Start Date End Date Alexandria Peñaloza MD PCP - General Internal Medicine 11/21/20 05/13/22 Tom White [address] [place] [address] PCP - General Internal Medicine 05/14/22 10/06/22 Marisela Goodrich MD [address] [place] [address] PCP - General Internal Medicine 10/07/22 documented as of this encounter
--- OUTSIDE RECORDS SUMMARY | 2024-12-15 13:44 | XMS_ITS | Encounter Summary ---
Author Organization [facility] Address [address] [place] [address] Care Team Providers Care Machine Straw Hat Presser Name Role Phone Alexandria Peñaloza MD Primary Care Provider Unava Kristy Rush MD Primary Care Provider Un available Alexandria Peñaloza MD Primary Care Provider Unava ilable Tom White Primary Care Provider [phone] Marisela Goodrich MD Primary Care Provider + Reason for Referral * EXTERNAL (Urgent) - Authorized/Booked Specialty Diagnoses / Procedures Referred By Contac t Referred To Contact Neurosurgery Procedures REFERRAL TO NEUROSURGERY Alexandria Peñaloza MD [address] [place] [address] Callie Mahmood [address] [place] [id number] Referral ID Status Reason Start Date Expiration Date V isits Requested Visits Authorized SEE NOTE Authorized/B ooked 10/16/2016 01/15/2017 1 1 Reason for Visit * Reason Onset Date Comments Escrow Agent Feedback 10/16/2016 Dr. Avalos Encounter Details Date Type Department Care Team Description 10/16/2016 Telephone Medicine/Pediatrics - [address] [phone] Alexandria Peñaloza MD Escrow Agent Feedback (Dr. Avalos) Social History Tobacco Use [...] insurance does the patient have today? - [id number] Effective 08/17/09: BCBS will not retro referral [...] insurance must be obtained and registered in [facility] or their referral can not be [...] SPECIALIST PATIENT is seeing: callie mahmood - [id number] What specialty is this? Neuro surgery DIAGNOSIS [...] Is this visit:Initial Visit Address of Specialist: [address] [place] [address] [place] [address] Phone # of Specialist:[phone] Fax #: (if applicable):[phone] Does patient have an appointment scheduled?: YES Date of appointment- (including a retro-request): 10/21/2016 Is this appointment related to: Surgery documented in this encounter Plan of Treatment Not on file documented as of this encounter Visit Diagnoses Not on filedocumented in this encounter Care Teams Machine Straw Hat Presser Relationship Specialty Start Date End Date Alexandria Peñaloza MD PCP - General 03/26/10 07/24/20 Kristy Castrejon MD PCP - General Internal Medicine 07/25/20 1 Alexandria Peñaloza MD PCP - General Internal Medicine 11/21/20 05/13/22 Tom White [address] [place] [address] PCP - General Internal Medicine 05/14/22 10/06/22 Marisela Goodrich MD [address] [place] [address] PCP - General Internal Medicine 10/07/22 documented as of this encounter
--- OUTSIDE RECORDS SUMMARY | 2024-12-15 13:44 | XMS_ITS | Encounter Summary ---
Author Organization [facility] Address [address] [place] [address] Care Team Providers Care Hogshead Packer Name Role Phone Alexandria Peñaloza MD Primary Care Provider Unava Kristy Rush MD Primary Care Provider Un available Alexandria Peñaloza MD Primary Care Provider Unava ilable Tom White Primary Care Provider Marisela Goodrich MD Primary Care Provider + Reason for Visit * Reason Comments E-prescribe Rx Request Encounter Details Date Type Department Care Team Description 04/24/2018 Refill Medicine/Pediatrics - [address] [phone] Geoffrey Camarillo PA-C E-prescribe Rx Request Social [...] THE PATIENT'S LAST APPOINTMENT IN ADULT MEDICINE? [id number] WHEN WAS THE LAST TIME THE PATIENT SAW THEIR PCP? [id number] Does patient have an upcoming appointment? Yes [id number] (THE MEDICATION REQUESTED IS ON THE MED LIST ABOVE) All of the medications requested were on the CURRENT MEDS list Did you check the Pharmacy information above?: YES Patient wants: 30 -day supply Is this a mail order prescription request ? NO Patients current insurance carrier is: Payor: [facility] / Plan: [facility] / Product Type: MEDICAID RISK documented in this encounter Plan of Treatment Not on file documented as of this encounter Visit Diagnoses Not on filedocumented in this encounter Care Teams Hogshead Packer Relationship Specialty Start Date End Date Alexandria Peñaloza MD PCP - General 03/26/10 07/24/20 Kristy Castrejon MD PCP - General Internal Medicine 07/25/20 1 Alexandria Peñaloza MD PCP - General Internal Medicine 11/21/20 05/13/22 Tom White [address] [place] [address] PCP - General Internal Medicine 05/14/22 10/06/22 Marisela Goodrich MD [address] [place] [address] PCP - General Internal Medicine 10/07/22 documented as of this encounter
--- OUTSIDE RECORDS SUMMARY | 2024-12-15 13:44 | XMS_ITS | Encounter Summary ---
Author Organization [facility] Address [address] [place] [address] Care Team Providers Care Bushwalking Guide Name Role Phone Tom White Primary Care Provider [phone] Marisela Goodrich MD Primary Care Provider + Reason for Visit * Reason Comments E-prescribe Rx Request Encounter Details Date Type Department Care Team Description 09/05/2022 Refill Medicine/Pediatrics - [address] [address] Tatum Thomas PA-C E-prescribe Rx Request Social [...] on filedocumented in this encounter Care Teams Bushwalking Guide Relationship Specialty Start Date End Date Tom White [address] [place] [address] PCP - General Internal Medicine 05/14/22 10/06/22 Marisela Goodrich MD [address] [place] [address] PCP - General Internal Medicine 10/07/22 documented as of this encounter
--- OUTSIDE RECORDS SUMMARY | 2024-12-15 13:44 | XMS_ITS | Encounter Summary ---
Author Organization [facility] Address [address] [place] [address] Care Team Providers Care Dean For Student Affairs Name Role Phone Alexandria Peñaloza MD Primary Care Provider Unava Kristy Rush MD Primary Care Provider Un available Alexandria Peñaloza MD Primary Care Provider Unava ilable Tom White Primary Care Provider [phone] Marisela Goodrich MD Primary Care Provider + Encounter Details Date Type Department Care Team Description 08/07/2016 Pt. Non Urgent Medic al Question Gastroenterology - [address] [address] Juanjose Connell MD Social History Tobacco Use Types Packs/Day [...] as of this encounter Progress Notes * Marita Alba M.A. - 08/07/2016 8:04 AM EDTFrom: Sandy Santana To: Juanjose Connell MD Sent: 08/07/2016 7:56 AM EDT Subject: Week followup on changing/discontinuing meds for colitis Dr. Connell, Good morning. I just wanted to update you. I have stopped ibuprofen, switched from Zoloft to lexapro, and am taking the heartburn medication you prescribed. I just wanted to let you know that even with these changes, i am still experiencing daily diarrhea. I am not sure what we should do now? Also,is it normal with many bouts of diarrhea to experience a lot of pain in my abdominal area? Sandy Santana documented in this encounter Plan of Treatment Not on file documented as of this encounter Visit Diagnoses Not on filedocumented in this encounter Care Teams Dean For Student Affairs Relationship Specialty Start Date End Date Alexandria Peñaloza MD PCP - General 03/26/10 07/24/20 Kristy Castrejon MD PCP - General Internal Medicine 07/25/20 1 Alexandria Peñaloza MD PCP - General Internal Medicine 11/21/20 05/13/22 Tom White [address] [place] [id number] PCP - General Internal Medicine 05/14/22 10/06/22 Marisela Goodrich MD [address] [place] [address] PCP - General Internal Medicine 10/07/22 documented as of this encounter
--- OUTSIDE RECORDS SUMMARY | 2024-12-15 13:44 | XMS_ITS | Encounter Summary ---
Author Organization [facility] Address [address] [place] [address] Care Team Providers Care Furnace Stock Inspector Name Role Phone Alexandria Peñaloza MD Primary Care Provider Unava Kristy Rush MD Primary Care Provider Un available Alexandria Peñaloza MD Primary Care Provider Unava ilTom Toscano Primary Care Provider [phone] Marisela Goodrich MD Primary Care Provider + Encounter Details Date Type Department Care Team Description 10/21/2016 Rehabilitation Center Manager Report Medical Records [address] [place] [address] Ronnie Boyle MD Social History Tobacco Use [...] on filedocumented in this encounter Care Teams Furnace Stock Inspector Relationship Specialty Start Date End Date Alexandria Peñaloza MD PCP - General 03/26/10 07/24/20 Kristy Castrejon MD PCP - General Internal Medicine 07/25/20 1 Alexandria Peñaloza MD PCP - General Internal Medicine 11/21/20 05/13/22 Tom White [address] [place] [address] PCP - General Internal Medicine 05/14/22 10/06/22 Marisela Goodrich MD [address] [place] [address] PCP - General Internal Medicine 10/07/22 documented as of this encounter
--- OUTSIDE RECORDS SUMMARY | 2024-12-15 13:44 | XMS_ITS | Encounter Summary ---
Author Organization [facility] Address [address] [place] [address] Care Team Providers Care Set Decorator Name Role Phone Alexandria Peñaloza MD Primary Care Provider Unava Kristy Rush MD Primary Care Provider Un available Alexandria Peñaloza MD Primary Care Provider Unava Tom Booker Primary Care Provider Marisela Goodrich MD Primary Care Provider + Encounter Details Date Type Department Care Team Description 12/20/2019 [facility] Medical Records [address] [place] [address] Robel Marks MD Social History Tobacco Use [...] on filedocumented in this encounter Care Teams Set Decorator Relationship Specialty Start Date End Date Alexandria Peñaloza MD PCP - General 03/26/10 07/24/20 Kristy Castrejon MD PCP - General Internal Medicine 07/25/20 1 Alexandria Peñaloza MD PCP - General Internal Medicine 11/21/20 05/13/22 Tom White [address] [place] [address] PCP - General Internal Medicine 05/14/22 10/06/22 Marisela Goodrich MD [address] [place] [address] PCP - General Internal Medicine 10/07/22 documented as of this encounter
--- OUTSIDE RECORDS SUMMARY | 2024-12-15 13:44 | XMS_ITS | Encounter Summary ---
Author Organization [facility] Address [address] [place] [address] Care Team Providers Care Professor Of Spanish Name Role Phone Alexandria Peñaloza MD Primary Care Provider Unava Kristy Rush MD Primary Care Provider Un available Alexandria Peñaloza MD Primary Care Provider Unava Tom Booker Primary Care Provider [phone] Marisela Goodrich MD Primary Care Provider + Encounter Details Date Type Department Care Team Description 12/27/2019 Release of Information Medical Records [address] [place] [address] Abstract, Provider Social History Tobacco Use Types [...] on filedocumented in this encounter Care Teams Professor Of Spanish Relationship Specialty Start Date End Date Alexandria Peñaloza MD PCP - General 03/26/10 07/24/20 Kristy Castrejon MD PCP - General Internal Medicine 07/25/20 1 Alexandria Peñaloza MD PCP - General Internal Medicine 11/21/20 05/13/22 Tom White [address] [place] [address] PCP - General Internal Medicine 05/14/22 10/06/22 Marisela Goodrich MD [address] [place] [address] PCP - General Internal Medicine 10/07/22 documented as of this encounter
--- OUTSIDE RECORDS SUMMARY | 2024-12-15 13:44 | XMS_ITS | Encounter Summary ---
Author Organization [facility] Address [address] [place] [address] Care Team Providers Care Service Station Attendant Name Role Phone Alexandria Peñaloza MD Primary Care Provider Unava Kristy Rush MD Primary Care Provider Un available Alexandria Peñaloza MD Primary Care Provider Unava Tom Booker Primary Care Provider [phone] Marisela Goodrich MD Primary Care Provider + Encounter Details Date Type Department Care Team Description 09/29/2011 Pt. Non Urgent Medic al Question Medicine/Pediatrics - [address] [phone] Alexandria Peñaloza MD Social History Tobacco Use [...] as of this encounter Progress Notes * Magnolia Briceno M.A. - 09/30/2011 8:32 AM ESTFrom: SANDY WEIR To: Alexandria Peñaloza MD Sent: Edna Sep 29, 2011 1:05 PM Subject: I would like some of my test results and xray resuts sent to my new kick press operator I am seeing Dr. Cer[facility]. I have had tests done over the past year, various xrays i would like all of my xray results, and any blood tests performed sent over to that have to do with checking for Rheumatoid Arthritis. Dr. Hebert in [place] also performed some blood tests, although they do not show much, they do show a little and anything ican show to Dr. Cerda is useful. [facility] [address] [place] [address] My appointment is this Fri, at 9am. Please let me know when these have been sent. Thank you so much! documented in this encounter Plan of Treatment Not on file documented as of this encounter Visit Diagnoses Not on filedocumented in this encounter Care Teams Service Station Attendant Relationship Specialty Start Date End Date Alexandria Peñaloza MD PCP - General 03/26/10 07/24/20 Kristy Castrejon MD PCP - General Internal Medicine 07/25/20 1 Alexandria Peñaolza MD PCP - General Internal Medicine 11/21/20 05/13/22 Tom White [address] [place] [address] PCP - General Internal Medicine 05/14/22 10/06/22 Marisela Goodrich MD [address] [place] [address] PCP - General Internal Medicine 10/07/22 documented as of this encounter
--- OUTSIDE RECORDS SUMMARY | 2024-12-15 13:44 | XMS_ITS | Clinical Summary ---
Author Organization [facility] it Address [address] [place] [address] Care Team Providers Care Occupational Therapy Program Director Name Role Phone Marisela Goodrich MD Primary [...] mellitus 09/24/2022 Nocturnal hypoxemia 04/08/2022 Overview (11/12/2024): [facility] diagnostic polysomnogram 03/14/2022 weight 320; BMI [...] Surgery Date Site/Laterality Comments SECTION 2007 PROCEDURE: [place] DELIVERY ONLY; COMMENT: x 1 WISDOM TOOTH EXTRACTION age 14 PROCEDURE: HISTORICAL WISDOM TEETH EXTRACTION OTHER SURGICAL HISTORY age 5 PROCEDURE: IA STRABISMUS RECESSION/RESCJ 1 HRZNTL MUSC TUBAL LIGATION [...] Joshi COLONOSCOPY 06/2018 PROCEDURE: HISTORICAL COLONOSCOPY; COMMENT: [facility]; visually normal, biopsies negative for microscopic colitis. COLONOSCOPY 11/2017 PROCEDURE: HISTORICAL COLONOSCOPY; COMMENT: [facility]; random biopsies negative for microscopic colitis, one diminutive tubular adenoma in the sigmoid colon. ROBOTIC ASSISTED HYSTERECTOMY 12/20/2019 PROCEDURE: HISTORICAL ROBOTIC HYSTERECTOMY WITH OR WITHOUT BSO; COMMENT: [facility] total hysterectomy with bilateral salpingectomy UPPER GASTROINTESTINAL ENDOSCOPY 02/25/2012 PROCEDURE: IA UPPER GI ENDOSCOPY PERFORMED; COMMENT: Normal on PPI rx. UPPER GASTROINTESTINAL ENDOSCOPY 12/15/2016 PROCEDURE: [place] UPPER GI ENDOSCOPY PERFORMED; [facility] her[facility], biopsy of a normal-appearing EG junction was negative for Vasquez's esophagus. Medical History Medical History Date Comments Joint pain DX:Joint pain Asthma DX:Asthma; COMME NT: exercise induced; URI Depression DX:Depression; C OMMENT: as a teenager Anemia DX:Anemia Seizure (CMS/HCC) age 10 DX:Seizure (HC C); COMMENT: nocturnal complex partial; [facility] Hensley [facility] IBS (irritable bowel syndrome) D X:IBS [...] lump, ovarian cyst, heart problem, thyroid dz, [place] age unknown Mother Alive ovarian cyst Paternal [...] BMP Blood Test (02/26/2023) Pathologist [facility] Annual BMP Blood Test abstracted Historical Provider [facility] * Urine Albumin Creatinine Ratio (01/27/2023) [facility] Urine Albumin Creatinine Ratio abstracted [facility] * (ABNORMAL) Hemoglobin A1c (01/27/2023) [facility] Hemoglobin A1C 8.4(A) 6.5 % Blood Venous blood specimen / Unknown Historical Provider LAB BLOOD ORDERAB LES * (ABNORMAL) Lipid panel (01/27/2023) [facility] LDL/HDL Ratio 5(A) 0 - 4 Triglycerides 509(A) 0 - 150 mg/dL Cholesterol 173 0 - 200 mg/dL HDL 36(A) 40 mg/dL Blood Venous blood specimen / Unknown Historical Provider LAB BLOOD ORDERAB LES * Colonoscopy (01/17/2021) Pathologist [facility] Colonoscopy no interpretation , abstracted Anatomical Region Laterality Modality Other Historical Provider [facility] * DX MAMMO INCL [...] Recently Relevant to Health Maintenance Care Teams Occupational Therapy Program Director Relationship Specialty Start Date End Date Marisela Goodrich MD PCP - General 10/07/22
--- OUTSIDE RECORDS SUMMARY | 2024-12-15 13:44 | XMS_ITS | Encounter Summary ---
Author Organization [facility] Address [address] [place] [address] Care Team Providers Care Dry Chain Offbearer Name Role Phone Tom White Primary Care Provider [phone] Marisela Goodrich MD Primary Care Provider + Encounter Details Date Type Department Care Team Description 09/05/2022 Refill Medicine/Pediatrics - [address] [phone] Tom White [address] [place] [address] Social History Tobacco Use Types Packs/Day Years [...] Encounter - Ruthy Fry M.A. - 09/06/2022 9:22 AM EDT Lab Results Component Value Date NA 141 11/01/2021 K 4.0 11/01/2021 CO2 25 11/01/2021 CL 109 11/01/2021 BUN 10 11/01/2021 CREAT 0.69 11/01/2021 GLU 132 11/01/2021 CA 8.6 11/01/2021 GFR > 60 11/01/2021 Last rx 06/24/22 #60 with 1 refill Pending appt with pcp 09/24/22 documented in this encounter Plan of Treatment Not on file documented as of this encounter Visit Diagnoses Not on filedocumented in this encounter Care Teams Dry Chain Offbearer Relationship Specialty Start Date End Date Tom White [address] [place] [address] PCP - General Internal Medicine 05/14/22 10/06/22 Marisela Goodrich MD [address] [place] [address] PCP - General Internal Medicine 10/07/22 documented as of this encounter
--- OUTSIDE RECORDS SUMMARY | 2024-12-15 13:44 | XMS_ITS | Encounter Summary ---
Author Organization [facility] Address [address] [place] [address] Care Team Providers Care Slate Worker Name Role Phone Tom White Primary Care Provider [phone] Marisela Goodrich MD Primary Care Provider + Encounter Details Date Type Department Care Team Description 06/24/2022 Refill Medicine/Pediatrics - [address] [phone] Kristy Castrejon MD Social History Tobacco Use [...] Telephone Encounter - Robbie Hogan M.A. - 06/24/2022 1:12 PM EDT Last ov 05/22/22 next ov 09/24/22 documented in this encounter Plan of Treatment Not on file documented as of this encounter Visit Diagnoses Not on filedocumented in this encounter Care Teams Slate Worker Relationship Specialty Start Date End Date Tom White [address] [place] [address] PCP - General Internal Medicine 05/14/22 10/06/22 Marisela Goodrich MD [address] [place] [address] PCP - General Internal Medicine 10/07/22 documented as of this encounter
--- OUTSIDE RECORDS SUMMARY | 2024-12-15 13:45 | XMS_ITS | Encounter Summary ---
Author Organization [facility] Address [address] [place] [address] Care Team Providers Care Seat Mender Name Role Phone Alexandria Peñaloza MD Primary Care Provider Unava Kristy Rush MD Primary Care Provider Un available Alexandria Peñaloza MD Primary Care Provider Unava ilable Tom White Primary Care Provider [phone] Marisela Goodrich MD Primary Care Provider + Reason for Visit * Reason Onset Date Comments Appointment Cancelled 10/02/2011 Encounter Details Date Type Department Care Team Description 10/02/2011 Telephone General Surgery [address] [place] [address] Prashant Ortiz MD [address] [place] [phone] Appointment Cancelled Social History Tobacco Use Types Packs/Day Years [...] encounter Miscellaneous Notes * Telephone Encounter - Diane Bridges M.A. - 10/02/2011 3:39 PM EST Noted * Telephone Encounter - Sonia Douglas - 10/02/2011 2:40 PM EST Patient cancled her appointment through [employer] stating she will call to reschedule this, right nowi am going through a lot of tests to see about why i have arthritis like pain and i cant even deal with this issue at the moment, i will call when that stuff is done in two weeks documented in this encounter Plan of Treatment Not on file documented as of this encounter Visit Diagnoses Not on filedocumented in this encounter Care Teams Seat Mender Relationship Specialty Start Date End Date Alexandria Peñaloza MD PCP - General 03/26/10 07/24/20 Kristy Castrejon MD PCP - General Internal Medicine 07/25/20 1 Alexandria Peñaloza MD PCP - General Internal Medicine 11/21/20 05/13/22 Tom White [address] [place] [address] PCP - General Internal Medicine 05/14/22 10/06/22 Marisela Goodrich MD [address] [place] [address] PCP - General Internal Medicine 10/07/22 documented as of this encounter
--- OUTSIDE RECORDS SUMMARY | 2024-12-15 13:45 | XMS_ITS | Encounter Summary ---
Author Organization [facility] Address [address] [place] [address] Care Team Providers Care Rn Maternity Name Role Phone Alexandria Peñaloza MD Primary Care Provider UnaKristy Negro MD Primary Care Provider Un available Alexandria Peñaloza MD Primary Care Provider Unava Tom Booker Primary Care Provider [phone] Marisela Goodrich MD Primary Care Provider + Encounter Details Date Type Department Care Team Description 12/31/2011 [facility] [address] [place] [address] Md Adis Social History Tobacco Use Types [...] on filedocumented in this encounter Care Teams Rn Maternity Relationship Specialty Start Date End Date Alexandria Peñaloza MD PCP - General 03/26/10 07/24/20 Kristy Castrejon MD PCP - General Internal Medicine 07/25/20 1 Alexandria Peñaloza MD PCP - General Internal Medicine 11/21/20 05/13/22 Tom White [address] [place] [address] PCP - General Internal Medicine 05/14/22 10/06/22 Marisela Goodrich MD [address] [place] [address] PCP - General Internal Medicine 10/07/22 documented as of this encounter
--- OUTSIDE RECORDS SUMMARY | 2024-12-15 13:45 | XMS_ITS | Encounter Summary ---
Author Organization [facility] Address [address] [place] [address] Care Team Providers Care Dredge Runner Name Role Phone Alexandria Peñaloza MD Primary Care Provider Tom Jane Primary Care Provider [phone] Marisela Goodrich MD Primary Care Provider + Reason for Visit * Reason Onset Date Comments medication problems 03/21/2022 Encounter Details Date Type Department Care Team Description 03/21/2022 Telephone Adult Medicine - [address] [address] Alexandria Peñaloza MD medication problems Social History [...] * Telephone Encounter - Román Mason - 03/21/2022 2:50 PM EDT SIG adjusted to most recent OV provider note. * Telephone Encounter - Yun Santizo R.N - 03/21/2022 2:42 PM EDT Called and spoke with pt, pt did not call, must have been pharmacy. Please call pharmacy and see what they need * Telephone Encounter - Tatum Thomas PA-C - 03/21/2022 1:01 PM EDT I do not know what seems to be of question here? * Telephone Encounter - Sandy Gan - 03/21/2022 10:30 AM EDT What is the name of the medication patient is having a problem with?: Insulin Glargine (Lantus SoloStar) 100 UNIT/ML Solution Pen-injector What is the problem?: correct signature and refax Is the patient calling about the problem? NO If the patient is not the caller who is? Is this a NEW medication?: YES How long has the patient been taking this medication? Who prescribed this medication for the patient? Alexandria Peñaloza Who is patients PCP?: Alexandria Peñaloza Payor: [employer] FFS / Plan: [facility] / Product Type: MEDICAID RISK documented in this encounter Plan of Treatment Not on file documented as of this encounter Visit Diagnoses Diagnosis Controlled type 2 diabetes mellitus without complication, with long-term current use of insulin (HCC) documented in this encounter Care Teams Dredge Runner Relationship Specialty Start Date End Date Alexandria Peñaloza MD PCP - General Internal Medicine 11/21/20 05/13/22 Tom White [address] [place] [address] PCP - General Internal Medicine 05/14/22 10/06/22 Marisela Goodrich MD [address] [place] [address] PCP - General Internal Medicine 10/07/22 documented as of this encounter
--- OUTSIDE RECORDS SUMMARY | 2024-12-15 13:45 | XMS_ITS | Encounter Summary ---
Author Organization [facility] Address [address] [place] [address] Care Team Providers Care Shaper And Presser Name Role Phone Alexandria Peñaloza MD Primary Care Provider UnaKristy Negro MD Primary Care Provider Un available Alexandria Peñaloza MD Primary Care Provider Soniava Tom Booker Primary Care Provider [phone] Marisela Goodrich MD Primary Care Provider + Encounter Details Date Type Department Care Team Description 10/02/2011 Tenon Machine Operator Report Medical Records [address] [place] [address] Mushtaq Cerda MD Social History Tobacco Use [...] on filedocumented in this encounter Care Teams Shaper And Presser Relationship Specialty Start Date End Date Aleaxndria Peñaloza MD PCP - General 03/26/10 07/24/20 Kristy Castrejon MD PCP - General Internal Medicine 07/25/20 1 Alexandria Peñaloza MD PCP - General Internal Medicine 11/21/20 05/13/22 Tom White [address] [place] [address] PCP - General Internal Medicine 05/14/22 10/06/22 Marisela Goodrich MD [address] [place] [address] PCP - General Internal Medicine 10/07/22 documented as of this encounter
--- OUTSIDE RECORDS SUMMARY | 2024-12-15 13:46 | XMS_ITS | Encounter Summary ---
Author Organization [facility] Address [address] [place] [address] Care Team Providers Care Insulation Worker Interior Surface Name Role Phone Alexandria Peñaloza MD Primary Care Provider Unava Kristy Rush MD Primary Care Provider Un available Alexandria Peñaloza MD Primary Care Provider Unava Tom Booker Primary Care Provider [phone] Marisela Goodrich MD Primary Care Provider + Encounter Details Date Type Department Care Team Description 10/23/2019 Hospital Medical Records [address] [place] [address] Milly Lawrence NP Social History Tobacco Use Types Packs/Day [...] on filedocumented in this encounter Care Teams Insulation Worker Interior Surface Relationship Specialty Start Date End Date Alexandria Peñaloza MD PCP - General 03/26/10 07/24/20 Kristy Castrejon MD PCP - General Internal Medicine 07/25/20 1 Alexandria Peñaloza MD PCP - General Internal Medicine 11/21/20 05/13/22 Tom White [address] [place] [address] PCP - General Internal Medicine 05/14/22 10/06/22 Marisela Goodrich MD [address] [place] [address] PCP - General Internal Medicine 10/07/22 documented as of this encounter
--- OUTSIDE RECORDS SUMMARY | 2024-12-15 13:46 | XMS_ITS | Encounter Summary ---
Author Organization [facility] Address [address] [place] [address] Care Team Providers Care High School Math Tutor Name Role Phone Alexandria Peñaloza MD Primary Care Provider Unava Kristy Rush MD Primary Care Provider Un available Alexandria Peñaloza MD Primary Care Provider Unava ilable Tom White Primary Care Provider [phone] Marisela Goodrich MD Primary Care Provider + Reason for Referral * EXTERNAL (Routine) - Authorized/Booked Specialty Diagnoses / Procedures Referred By Contpark t Referred To Contact Gastroenterology Procedures REFERRAL TO GASTROENTEROLOGY Alexandria Peñaloza MD [address] [place] [address] DesiletsRobel MD [address] [facility] 3rd Floor [address] [place] [address] Referral ID Status Reason Start Date Expiration Date V isits Requested Visits Authorized SEE NOTE Authorized/B ooked 08/15/2017 11/18/2017 1 1 Reason for Visit * Reason Onset Date Comments Instrument Person Feedback 08/15/2017 Dr. Fran Buchanan Encounter Details Date Type Department Care Team Description 08/15/2017 Telephone Medicine/Pediatrics - [address] [phone] Alexandria Peñaloza MD Instrument Person Feedback (Dr. Fran Buchanan) Social History Tobacco [...] on filedocumented in this encounter Care Teams High School Math Tutor Relationship Specialty Start Date End Date Alexandria Peñaloza MD PCP - General 03/26/10 07/24/20 Kristy Castrejon MD PCP - General Internal Medicine 07/25/20 1 Alexandria Peñaloza MD PCP - General Internal Medicine 11/21/20 05/13/22 Tom White [address] [place] [address] PCP - General Internal Medicine 05/14/22 10/06/22 Marisela Goodrich MD [address] [place] [address] PCP - General Internal Medicine 10/07/22 documented as of this encounter
--- OUTSIDE RECORDS SUMMARY | 2024-12-15 13:46 | XMS_ITS | Encounter Summary ---
Author Organization [facility] Address [address] [place] [address] Care Team Providers Care Shift Production Supervisor Name Role Phone Alexandria Peñaloza MD Primary Care Provider Unava Kristy Rush MD Primary Care Provider Un available Alexandria Peñaloza MD Primary Care Provider Unava Tom Booker Primary Care Provider [phone] Marisela Goodrich MD Primary Care Provider + Encounter Details Date Type Department Care Team Description 04/08/2017 Hospital Medical Records [address] [place] [address] Amberly Mayo Social History Tobacco Use Types [...] on filedocumented in this encounter Care Teams Shift Production Supervisor Relationship Specialty Start Date End Date Alexandria Peñaloza MD PCP - General 03/26/10 07/24/20 Kristy Castrejon MD PCP - General Internal Medicine 07/25/20 1 Alexandria Peñaloza MD PCP - General Internal Medicine 11/21/20 05/13/22 Tom White [address] [place] [address] PCP - General Internal Medicine 05/14/22 10/06/22 Marisela Goodrich MD [address] [place] [address] PCP - General Internal Medicine 10/07/22 documented as of this encounter
--- OUTSIDE RECORDS SUMMARY | 2024-12-15 13:46 | XMS_ITS | Encounter Summary ---
Author Organization [facility] Address [address] [place] [address] Care Team Providers Care Manager Operations And Procurement Name Role Phone Alexandria Peñaloza MD Primary Care Provider Unava Kristy Rush MD Primary Care Provider Un available Alexandria Peñaloza MD Primary Care Provider Unava Tom Booker Primary Care Provider [phone] Marisela Goodrich MD Primary Care Provider + Encounter Details Date Type Department Care Team Description 07/03/2015 Orders Only Medicine/Pediatrics - [address] [phone] Marli Vanessa PA-C Other B-complex deficiencies (Primary [...] Vanessa PA-C [facility] [address] [facility] documented in this encounter Visit Diagnoses Diagnosis Other B-complex deficiencies- Primary documented in this encounter Care Teams Manager Operations And Procurement Relationship Specialty Start Date End Date Alexandria Peñaloza MD PCP - General 03/26/10 07/24/20 Kristy Castrejon MD PCP - General Internal Medicine 07/25/20 Alexandria Peñaloza MD PCP - General Internal Medicine 11/21/20 05/13/22 Tom White [address] [place] [address] PCP - General Internal Medicine 05/14/22 10/06/22 Marisela Goodrich MD [address] [place] [address] PCP - General Internal Medicine 10/07/22 documented as of this encounter
--- OUTSIDE RECORDS SUMMARY | 2024-12-15 13:46 | XMS_ITS | Encounter Summary ---
Author Organization [facility] Address [address] [place] [address] Care Team Providers Care Engineering Associate Name Role Phone Alexandria Peñaloza MD Primary Care Provider Unava Kristy Rush MD Primary Care Provider Un available Alexandria Peñaloza MD Primary Care Provider Unava ilTom Toscano Primary Care Provider [phone] Marisela Goodrich MD Primary Care Provider + Encounter Details Date Type Department Care Team Description 06/21/2019 Sponsorship Manager Report Medical Records [address] [place] [address] João Bahena MD Social History Tobacco Use [...] filedocumented in this encounter Care Teams Engineering Associate Relationship Specialty Start Date End Date Alexandria Peñaloza MD PCP - General 03/26/10 07/24/20 Kristy Castrejon MD PCP - General Internal Medicine 07/25/20 1 Alexandria Peñaloza MD PCP - General Internal Medicine 11/21/20 05/13/22 Tom White [address] [place] [address] PCP - General Internal Medicine 05/14/22 10/06/22 Marisela Goodrich MD [address] [place] [address] PCP - General Internal Medicine 10/07/22 documented as of this encounter
--- OUTSIDE RECORDS SUMMARY | 2024-12-15 13:46 | XMS_ITS | Encounter Summary ---
Author Organization [facility] Address [address] [place] [address] Care Team Providers Care Steel Unloader Name Role Phone Alexandria Peñaloza MD Primary Care Provider Unava Kristy Rush MD Primary Care Provider Un available Alexandria Peñaloza MD Primary Care Provider Unava Tom Booker Primary Care Provider [phone] Marisela Goodrich MD Primary Care Provider + Encounter Details Date Type Department Care Team Description 09/08/2019 Refill Medicine/Pediatrics - [address] [phone] Alexandria Peñaloza MD Social History Tobacco Use [...] Will need to discuss at appt; not rodent exterminator but pt has been in and out [...] following medications: diazepam (VALIUM) 2 MG tablet [Alxeandria Peñaloza MD] cyanocobalamin 1000 MCG/ML injection [Alexandria Peñaloza MD] oxycodone (ROXICODONE) 5 MG immediate release tablet [Alexandria Peñaloza MD] promethazine-phenylephrine 6.25-5 MG/5ML syrup [Alexandria Peñaloza MD] Preferred pharmacy: [id number] Comment: documented in this encounter Plan of Treatment Not on file documented as of this encounter Visit Diagnoses Diagnosis Fibromyalgia Mylagia and myositis, unspecified Vitamin B12 deficiency Other B-complex deficiencies documented in this encounter Care Teams Steel Unloader Relationship Specialty Start Date End Date Alexandria Peñaloza MD PCP - General 03/26/10 07/24/20 Kristy Castrejon MD PCP - General Internal Medicine 07/25/20 Alexandria Peñaloza MD PCP - General Internal Medicine 11/21/20 05/13/22 Tom White [address] [place] [id number] PCP - General Internal Medicine 05/14/22 10/06/22 Marisela Goodrich MD [address] [place] [address] PCP - General Internal Medicine 10/07/22 documented as of this encounter
--- OUTSIDE RECORDS SUMMARY | 2024-12-15 13:46 | XMS_ITS | Encounter Summary ---
Author Organization [facility] Address [address] [place] [address] Care Team Providers Care Test Engineer Name Role Phone Alexandria Peñaloza MD Primary Care Provider Unava Kristy Rush MD Primary Care Provider Un available Alexandria Peñaloza MD Primary Care Provider Unava Tom Booker Primary Care Provider [phone] Marisela Goodrich MD Primary Care Provider + Reason for Visit * Reason Onset Date Comments Medication 05/29/2017 Encounter Details Date Type Department Care Team Description 05/29/2017 Telephone Medicine/Pediatrics - [address] [phone] Alexandria Peñaloza MD Medication Social History Tobacco Use Types Packs/Day Years [...] encounter Miscellaneous Notes * Telephone Encounter - Henrietta Campbell R.N. - 05/29/2017 1:[address] Peñaloza I am uncomfortable with patient having needles and syringes- do feel otherwise. Please route message or discuss this patient with me. * Telephone Encounter - Ligia Peñaloza RN - 05/29/2017 12:33 PM EDT Patient requested the medication (B12) because she now lives in [place] (in process of moving back to [place], no date given). Is also requesting needle and syringes to be able to give self B12. See message below from Danitza. Called patient back and gave below information, explaining she has not been taught to give herself the B12 that syringes/needles won't be ordered. Patient then asked why wasit ordered for her. Explained that it was ordered because she requested it. States she is behind [facility] and that she is an hour away. Please advise. * Telephone Encounter - Cristobal Mares PA-C - 05/29/2017 11:50 AM EDT I do not see record of synringes. I have never met this pt. I cannot confirm this. PCP may have more information. Do not feel comfortable rx this due to possible mis-management/injury. Thanks. * Telephone Encounter - Bright Cruz R.N. - 05/29/2017 9:54 AM EDT Pt reports previously came to office for injections; however she out of the area and the cyanocobalamin 1000 MCG/ML injection has been ordered for her to self inject and reports she is able to do this. Order for syringes pended * Telephone Encounter - Bright Cruz R.N. - 05/29/2017 9:34 AM EDT Message left for patient to call back [phone] re: question provider of syringes she needs as pharmacy does not have record of syringes * Telephone Encounter - Haylie Lazo - 05/29/2017 9:14 AM EDT Who is calling? The patient Name of the medication cyanocobalamin 1000 MCG/ML injection What is the specific problem or interaction? Pt states pharmacy does have this rx.But no needle. Ptrequesting we send needle request to pharmacy If the patient is having a problem with taking the med - how long has the problem been going on? N/A documented in this encounter Plan of Treatment Not on file documented as of this encounter Visit Diagnoses Not on filedocumented in this encounter Care Teams Test Engineer Relationship Specialty Start Date End Date Alexandria Peñaloza MD PCP - General 03/26/10 07/24/20 Kristy Castrejon MD PCP - General Internal Medicine 07/25/20 1 Alexandria Peñaloza MD PCP - General Internal Medicine 11/21/20 05/13/22 Tom White [address] [place] [address] PCP - General Internal Medicine 05/14/22 10/06/22 Marisela Goodrich MD [address] [place] [address] PCP - General Internal Medicine 10/07/22 documented as of this encounter
--- OUTSIDE RECORDS SUMMARY | 2024-12-15 13:46 | XMS_ITS | Encounter Summary ---
Author Organization [facility] Address [address] [place] [address] Care Team Providers Care Foxer Name Role Phone Alexandria Peñaloza MD Primary Care Provider Kristy Milan MD Primary Care Provider Un available Alexandria Peñaloza MD Primary Care Provider Soniava Tom Booker Primary Care Provider [phone] Marisela Goodrich MD Primary Care Provider + Encounter Details Date Type Department Care Team Description 08/03/2019 [facility] Medical Records [address] [place] [id number] Social History Tobacco Use Types Packs/Day Years [...] on filedocumented in this encounter Care Teams Foxer Relationship Specialty Start Date End Date Alexandria Peñaloza MD PCP - General 03/26/10 07/24/20 Kristy Castrejon MD PCP - General Internal Medicine 07/25/20 1 Alexandria Peñaloza MD PCP - General Internal Medicine 11/21/20 05/13/22 Tom White [address] [place] [address] PCP - General Internal Medicine 05/14/22 10/06/22 Marisela Goodrich MD [address] [place] [address] PCP - General Internal Medicine 10/07/22 documented as of this encounter
--- OUTSIDE RECORDS SUMMARY | 2024-12-15 13:46 | XMS_ITS | Encounter Summary ---
Author Organization [facility] Address [address] [place] [address] Care Team Providers Care Monument Setter Helper Name Role Phone Alexandria Peñaloza MD Primary Care Provider Unava Kristy Rush MD Primary Care Provider Un available Alexandria Peñaloza MD Primary Care Provider Unava Tom Booker Primary Care Provider [phone] Marisela Goodrich MD Primary Care Provider + Encounter Details Date Type Department Care Team Description 06/24/2011 Technician Assistant Report Medical Records [address] [place] [address] Sam Tinsley MD Social History Tobacco Use [...] on filedocumented in this encounter Care Teams Monument Setter Helper Relationship Specialty Start Date End Date Alexandria Peñaloza MD PCP - General 03/26/10 07/24/20 Kristy Castrejon MD PCP - General Internal Medicine 07/25/20 1 Alexandria Peñaloza MD PCP - General Internal Medicine 11/21/20 05/13/22 Tom White [address] [place] [address] PCP - General Internal Medicine 05/14/22 10/06/22 Marisela Goodrich MD [address] [place] [address] PCP - General Internal Medicine 10/07/22 documented as of this encounter
--- OUTSIDE RECORDS SUMMARY | 2024-12-15 13:46 | XMS_ITS | Encounter Summary ---
Author Organization [facility] Address [address] [place] [address] Care Team Providers Care Technical Services Consultant Name Role Phone Alexandria Peñaloza MD Primary Care Provider Unava Kristy Rush MD Primary Care Provider Un available Alexandria Peñaloza MD Primary Care Provider Unava Tom Booker Primary Care Provider [phone] Marisela Goodrich MD Primary Care Provider + Encounter Details Date Type Department Care Team Description 08/27/2011 Orders Only Medicine/Pediatrics - [address] [id number] Alexandria Peñaloza MD Social History Tobacco Use [...] on filedocumented in this encounter Care Teams Technical Services Consultant Relationship Specialty Start Date End Date Alexandria Peñaloza MD PCP - General 03/26/10 07/24/20 Kristy Castrejon MD PCP - General Internal Medicine 07/25/20 1 Alexandria Peñaloza MD PCP - General Internal Medicine 11/21/20 05/13/22 Tom White [address] [place] [address] PCP - General Internal Medicine 05/14/22 10/06/22 Marisela Goodrich MD [address] [place] [address] PCP - General Internal Medicine 10/07/22 documented as of this encounter
--- OUTSIDE RECORDS SUMMARY | 2024-12-15 13:46 | XMS_ITS | Encounter Summary ---
Author Organization [facility] Address [address] [place] [address] Care Team Providers Care White Sugar Supervisor Name Role Phone Alexandria Peñaloza MD Primary Care Provider Unava Kristy Rush MD Primary Care Provider Un available Alexandria Peñaloza MD Primary Care Provider Unava ilTom Toscano Primary Care Provider [phone] Marisela Goodrich MD Primary Care Provider + Encounter Details Date Type Department Care Team Description 01/29/2017 Chemical Engraver Report Medical Records [address] [place] [id number] Stephen Reynolds MD Social History Tobacco Use [...] on filedocumented in this encounter Care Teams White Sugar Supervisor Relationship Specialty Start Date End Date Alexandria Peñaloza MD PCP - General 03/26/10 07/24/20 Kristy Castrejon MD PCP - General Internal Medicine 07/25/20 1 Alexandria Peñaloza MD PCP - General Internal Medicine 11/21/20 05/13/22 Tom White [address] [place] [address] PCP - General Internal Medicine 05/14/22 10/06/22 Marisela Goodrich MD [address] [place] [address] PCP - General Internal Medicine 10/07/22 documented as of this encounter
--- OUTSIDE RECORDS SUMMARY | 2024-12-15 13:46 | XMS_ITS | Encounter Summary ---
Author Organization [facility] Address [address] [place] [address] Care Team Providers Care Mechatronics Engineer Name Role Phone Alexandria Peñaloza MD Primary Care Provider Unava Kristy Rush MD Primary Care Provider Un available Alexandria Peñaloza MD Primary Care Provider Unava Tom Booker Primary Care Provider [phone] Marisela Goodrich MD Primary Care Provider + Encounter Details Date Type Department Care Team Description 07/01/2017 Telephone Medicine/Pediatrics - [address] [id number] Alexandria Peñaloza MD Social History Tobacco Use [...] on filedocumented in this encounter Care Teams Mechatronics Engineer Relationship Specialty Start Date End Date Alexandria Peñaloza MD PCP - General 03/26/10 07/24/20 Kristy Castrejon MD PCP - General Internal Medicine 07/25/20 1 Alexandria Peñaloza MD PCP - General Internal Medicine 11/21/20 05/13/22 Tom White [address] [place] [address] PCP - General Internal Medicine 05/14/22 10/06/22 Marisela Goodrich MD [address] [place] [address] PCP - General Internal Medicine 10/07/22 documented as of this encounter
--- OUTSIDE RECORDS SUMMARY | 2024-12-15 13:46 | XMS_ITS | Encounter Summary ---
Author Organization [facility] Address [address] [place] [address] Care Team Providers Care Senior Quality Analyst Name Role Phone Alexandria Peñaloza MD Primary Care Provider Unava Kristy Rush MD Primary Care Provider Un available Alexandria Peñaloza MD Primary Care Provider Unava Tom Booker Primary Care Provider [phone] Marisela Goodrich MD Primary Care Provider + Encounter Details Date Type Department Care Team Description 10/24/2019 [facility] Medical Records [address] [place] [address] Joleen Ewing, DINING HOST Social History Tobacco Use Types Packs/Day Years [...] filedocumented in this encounter Care Teams Senior Quality Analyst Relationship Specialty Start Date End Date Alexandria Peñaloza MD PCP - General 03/26/10 07/24/20 Kristy Castrejon MD PCP - General Internal Medicine 07/25/20 1 Alexandria Peñaloza MD PCP - General Internal Medicine 11/21/20 05/13/22 Tom White [address] [place] [address] PCP - General Internal Medicine 05/14/22 10/06/22 Marisela Goodrich MD [address] [place] [address] PCP - General Internal Medicine 10/07/22 documented as of this encounter
--- OUTSIDE RECORDS SUMMARY | 2024-12-15 13:46 | XMS_ITS | Encounter Summary ---
Author Organization [facility] Address [address] [place] [address] Care Team Providers Care Plant Guide Name Role Phone Alexandria Peñaloza MD Primary Care Provider Unava Kristy Rush MD Primary Care Provider Un available Alexandria Peñaloza MD Primary Care Provider Soniava Tom Booker Primary Care Provider [phone] Marisela Goodrich MD Primary Care Provider + Encounter Details Date Type Department Care Team Description 06/04/2017 [facility] Medical Records [address] [place] [id number] Abstract, Provider Social History Tobacco Use Types [...] on filedocumented in this encounter Care Teams Plant Guide Relationship Specialty Start Date End Date Alexandria Peñaloza MD PCP - General 03/26/10 07/24/20 Kristy Castrejon MD PCP - General Internal Medicine 07/25/20 1 Alexandria Peñaloza MD PCP - General Internal Medicine 11/21/20 05/13/22 Tom White [address] [place] [address] PCP - General Internal Medicine 05/14/22 10/06/22 Marisela Goodrich MD [address] [place] [address] PCP - General Internal Medicine 10/07/22 documented as of this encounter
--- OUTSIDE RECORDS SUMMARY | 2024-12-15 13:46 | XMS_ITS | Encounter Summary ---
Author Organization [facility] Address [address] [place] [address] Care Team Providers Care Institutional Research Director Name Role Phone Alexandria Peñaloza MD Primary Care Provider Unava Kristy Rush MD Primary Care Provider Un available Alexandria Peñaloza MD Primary Care Provider Unava Tom Booker Primary Care Provider [phone] Marisela Goodrich MD Primary Care Provider + Encounter Details Date Type Department Care Team Description 04/11/2017 Hospital Medical Records [address] [place] [address] Ronaldo Bautista MD Social History Tobacco Use Types Packs/Day [...] on filedocumented in this encounter Care Teams Institutional Research Director Relationship Specialty Start Date End Date Alexandria Peñaloza MD PCP - General 03/26/10 07/24/20 Kristy Castrejon MD PCP - General Internal Medicine 07/25/20 1 Alexandria Peñaloza MD PCP - General Internal Medicine 11/21/20 05/13/22 Tom White [address] [place] [address] PCP - General Internal Medicine 05/14/22 10/06/22 Marisela Goodrich MD [address] [place] [address] PCP - General Internal Medicine 10/07/22 documented as of this encounter
--- OUTSIDE RECORDS SUMMARY | 2024-12-15 13:46 | XMS_ITS | Encounter Summary ---
Author Organization [facility] Address [address] [place] [address] Care Team Providers Care Electric Motorman Name Role Phone Alexandria Peñaloza MD Primary Care Provider Unava Kristy Rush MD Primary Care Provider Un available Alexandria Peñaloza MD Primary Care Provider Unava Tom Booker Primary Care Provider [phone] Marisela Goodrich MD Primary Care Provider + Encounter Details Date Type Department Care Team Description 07/04/2019 [facility] Medical Records [address] [place] [id number] [place] [address] Social History Tobacco Use Types Packs/Day Years [...] on filedocumented in this encounter Care Teams Electric Motorman Relationship Specialty Start Date End Date Alexandria Peñaloza MD PCP - General 03/26/10 07/24/20 Kristy Castrejon MD PCP - General Internal Medicine 07/25/20 1 Alexandria Peñaloza MD PCP - General Internal Medicine 11/21/20 05/13/22 Tom White [address] [place] [address] PCP - General Internal Medicine 05/14/22 10/06/22 Marisela Goodrich MD [address] [place] [address] PCP - General Internal Medicine 10/07/22 documented as of this encounter
--- OUTSIDE RECORDS SUMMARY | 2024-12-15 13:46 | XMS_ITS | Encounter Summary ---
Author Organization [facility] Address [address] [place] [address] Care Team Providers Care Television Mechanic Name Role Phone Alexandria Peñaloza MD Primary Care Provider Unava Kristy Rush MD Primary Care Provider Un available Alexandria Peñaloza MD Primary Care Provider Unava ilTom Toscano Primary Care Provider [phone] Marisela Goodrich MD Primary Care Provider + Encounter Details Date Type Department Care Team Description 01/23/2017 Wreath Maker Report Medical Records [address] [place] [phone] Stephen Reynolds MD Social History Tobacco Use [...] on filedocumented in this encounter Care Teams Television Mechanic Relationship Specialty Start Date End Date Alexandria Peñaloza MD PCP - General 03/26/10 07/24/20 Kristy Castrejon MD PCP - General Internal Medicine 07/25/20 1 Alexandria Peñaloza MD PCP - General Internal Medicine 11/21/20 05/13/22 Tom White [address] [place] [address] PCP - General Internal Medicine 05/14/22 10/06/22 Marisela Goodrich MD [address] [place] [address] PCP - General Internal Medicine 10/07/22 documented as of this encounter
--- OUTSIDE RECORDS SUMMARY | 2024-12-15 13:46 | XMS_ITS | Encounter Summary ---
Author Organization [facility] Address [address] [place] [address] Care Team Providers Care Vacuum Worker Name Role Phone Alexandria Peñaloza MD Primary Care Provider Unava Kristy Rush MD Primary Care Provider Un available Alexandria Peñaloza MD Primary Care Provider Unava ilTom Toscano Primary Care Provider [phone] Marisela Goodrich MD Primary Care Provider + Encounter Details Date Type Department Care Team Description 11/05/2016 Director Hydrogen Storage Engineering Report Medical Records [address] [place] [id number] Yoel Rogers Np Social History Tobacco Use Types Packs/Day Years [...] on filedocumented in this encounter Care Teams Vacuum Worker Relationship Specialty Start Date End Date Alexandria Peñaloza MD PCP - General 03/26/10 07/24/20 Kristy Castrejon MD PCP - General Internal Medicine 07/25/20 1 Alexandria Peñaloza MD PCP - General Internal Medicine 11/21/20 05/13/22 Tom White [address] [place] [address] PCP - General Internal Medicine 05/14/22 10/06/22 Marisela Goodrich MD [address] [place] [address] PCP - General Internal Medicine 10/07/22 documented as of this encounter
--- OUTSIDE RECORDS SUMMARY | 2024-12-15 13:46 | XMS_ITS | Encounter Summary ---
Author Organization [facility] Address [address] [place] [address] Care Team Providers Care Architectural Wood Model Maker Name Role Phone Alexandria Peñaloza MD Primary Care Provider Unava Kristy Rush MD Primary Care Provider Un available Alexandria Peñaloza MD Primary Care Provider Unava Tom Booker Primary Care Provider [phone] Marisela Goodrich MD Primary Care Provider + Encounter Details Date Type Department Care Team Description 09/01/2019 [facility] Medical Records [address] [place] [phone] Ayesha Weaver MD Social History Tobacco Use [...] on filedocumented in this encounter Care Teams Architectural Wood Model Maker Relationship Specialty Start Date End Date Alexandria Peñaloza MD PCP - General 03/26/10 07/24/20 Kristy Castrejon MD PCP - General Internal Medicine 07/25/20 1 Alexandria Peñaloza MD PCP - General Internal Medicine 11/21/20 05/13/22 Tom White [address] [place] [address] PCP - General Internal Medicine 05/14/22 10/06/22 Marisela Goodrich MD [address] [place] [address] PCP - General Internal Medicine 10/07/22 documented as of this encounter
--- OUTSIDE RECORDS SUMMARY | 2024-12-15 13:46 | XMS_ITS | Encounter Summary ---
Author Organization [facility] Address [address] [place] [address] Care Team Providers Care Infection Control Manager Name Role Phone Alexandria Peñaloza MD Primary Care Provider Unava Kristy Rush MD Primary Care Provider Un available Alexandria Peñaloza MD Primary Care Provider Unava Tom Booker Primary Care Provider [phone] Marisela Goodrich MD Primary Care Provider + Encounter Details Date Type Department Care Team Description 10/05/2019 Telephone [facility] - [email or web address] [id number] Robel Marks MD Social History Tobacco Use [...] encounter Miscellaneous Notes * Telephone Encounter - Monse Mo - 12/02/2019 3:12 PM EST Forward [facility] to Dr. Marks. AM * Telephone Encounter - Monse Mo - 12/01/2019 12:15 PM EST Total abdominal hysterectomy with bilateral salpingo-oophorectomy has been scheduled on 12/20/2019 at [facility] with Dr. Marks. Patient has been notified by phone and a letter has been sent to her. MD calendar has been updated and schedulers have been notified. AM * Telephone Encounter - Monse Mo - 12/01/2019 10:53 AM EST Sandy Santana has been referred by Dr. Marks to Dr. Peñaloza for preoperative consultation priorto undergoing surgery for total abdominal hysterectomy with bilateral salpingo-oophorectomy . The consulting physician has been asked to review Sandy Santana's medical issues and to provide an opinion concerning the patients medical risks associated with surgery as well as any necessary preoperative and perioperative interventions. * Telephone Encounter - Garcia Alvarez MA. - 11/26/2019 3:19 PM EST Pt aware of surgery date, is schedule for machine operator helper pre op on 12/13/19, awaiting call back from [facility] to schedule pcp clearance to set surgery complete info * Telephone Encounter - Monse Mo - 10/21/2019 11:33 AM EST Offer pt a surgical date of 12/20/2019. Pt accepted. Will forward info to [facility]. AM * Telephone Encounter - Robel Marks MD - 10/05/2019 5:43 PM EST NURSE INFORMATICIST SURGICAL BOOKING WORKSHEET 10/05/2019 Patient's Name: Sandy Santana : 1985 Payor information: Payor: [facility] [employer] FFS / Plan: [facility] / Product Type: MEDICAID RISK Allergies: Allergies Allergen Reactions ??? Latex Rash/Dermatitis ??? Neurontin [Gabapentin] Muscle weakness ??? Versed Stop breathing LMP: No LMP recorded. Patient is not currently having periods (Reason: IUD- uncertain date). Diagnosis: 1. Menorrhagia with irregular cycle 2. Dyspareunia in female 3. Morbid obesity (HCC) 4. 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 PCOS (polycystic ovarian syndrome) Surgery Procedure Planned: [place] total hysterectomy with bilateral salpingectomy Special Instructions/Equipment needed: [place] Type of Anesthesia: general Stay: Outpatient in a bed Location:[facility] Manual Qa Tester Needed? YES Time Needed: 3 hours Urgency: elective Medicaid Sterilization (within 30 days - 180 days) and/or Medicare HI-1 form signed, if needed? no Date signed? Patient has had a tubal ligation Medical Clearance? YES Pre Op DOCTOR PODIATRIC MEDICINE visit: YES Pap Needed at Pre Op Visit? NO No orders of the defined types were placed in this encounter. documented in this encounter Plan of Treatment Not on file documented as of this encounter Results * (ABNORMAL) BASIC METABOLIC PANEL (12/08/2019 3:59 PM EST) GLUCOSE 117(H) 70 - 100 mg/dL 12/08/2019 6:58 PM EST [facility] Comment:Reference range appl icable to fasting specimens only Blood Urea Nitrogen 14 5 - 25 mg/dL 12/08/2019 6:58 PM EST [facility] CREAT 0.76 0.5 - 1.1 mg/dL 12/08/2019 6:58 PM EST [facility] GLOMERULAR FILTRATION RATE > 60 12/08/2019 6:58 PM EST [facility] Comment: If patient is -Kyrgyz, multiply result by 1.21 Chronic Kidney Disease: < 60 ml/min/1.73 square meters Kidney Failure: < 15 ml/min/1.73 square meters NA 140 135 - 145 mEq/L 12/08/2019 6:58 PM EST [facility] K 4.3 3.5 - 5.5 mmol/L 12/08/2019 6:58 PM EST [facility] CL 107 96 - 110 mmol/L 12/08/2019 6:58 PM EST [facility] CARBON DIOXIDE (CO2) 29 21 - 32 mmol/L 12/08/2019 6:58 PM EST [facility] ANION GAP 4 3 - 11 12/08/2019 6:58 PM EST [facility] CALCIUM 9.4 8.5 - 10.5 mg/dL 12/08/2019 6:58 PM EST [facility] 12/08/2019 3:59 PM EST 12/08/2019 3:59 PM EST Robel Marks MD LAB [facility] * (ABNORMAL) CBC (AUTO DIFF PLATELET) (12/08/2019 3:59 PM EST) WHITE BLOOD COUNT 11.5(H) 4.8 - 10.8 x10-3/uL 12/08/2019 6:59 PM EST [facility] RED BLOOD COUNT 4.7 3.8 - 4.8 x10-6/uL 12/08/2019 6:59 PM EST [facility] Hemoglobin 13.7 11.5 - 16.0 g/dL 12/08/2019 6:59 PM EST [facility] Hematocrit 42.0 35 - 47 % 12/08/2019 6:59 PM EST [facility] MEAN CORPUSCULAR VOLUME 88.6 79 - 98 fL 12/08/2019 6:59 PM EST [facility] MEAN CORPUSCULAR HEMOGLOBIN 28.9 27 - 32 pg 12/08/2019 6:59 PM EST [facility] MEAN CORPUSCULAR HGB CONC 32.6 32 - 37 g/dL 12/08/2019 6:59 PM EST [facility] RED CELL DISTRIBUTION WIDTH 12.9 11 - 15 % 12/08/2019 6:59 PM EST [facility] PLT COUNT 328 130 - 400 x10-3/uL 12/08/2019 6:59 PM EST [facility] MEAN PLATELET VOLUME 9.7 7 - 11 fL 12/08/2019 6:59 PM EST [facility] NRBC % AUTO 0.0 <1 % 12/08/2019 6:59 PM EST [facility] NEUTROPHILS % 67.9 % 12/08/2019 6:59 PM EST [facility] LYMPH % 20.8 % 12/08/2019 6:59 PM EST [facility] MONO % 6.2 % 12/08/2019 6:59 PM EST [facility] EOS % 2.1 % 12/08/2019 6:59 PM EST [facility] BASO % 0.9 % 12/08/2019 6:59 PM EST [facility] IMMATURE GRANULOCYTES % 2.1 % 12/08/2019 6:59 PM EST [facility] NRBC # AUTO 0.00 <0.1 x10-3/uL 12/08/2019 6:59 PM EST [facility] NEUT # 7.83(H) 1.5 - 7.0 x10-3/uL 12/08/2019 6:59 PM EST [facility] LYMPH # 2.40 1 - 5.0 x10-3/uL 12/08/2019 6:59 PM EST [facility] MONO # 0.71 0.2 - 1.0 x10-3/uL 12/08/2019 6:59 PM EST [facility] EOS # 0.24 0 - 0.5 x10-3/uL 12/08/2019 6:59 PM EST [facility] BASO # 0.10 0 - 0.2 x10-3/uL 12/08/2019 6:59 PM EST [facility] IMMATURE GRANULOCYTES # 0.24(H) 0 - 0.03 x10-3/uL 12/08/2019 6:59 PM EST [facility] 12/08/2019 3:59 PM EST 12/08/2019 3:59 PM EST Robel Marks MD LAB [facility] documented in this encounter Visit Diagnoses Diagnosis Menorrhagia with irregular cycle- Primary Excessive or frequent menstruation Dyspareunia in female Morbid obesity (HCC) Morbid obesity 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) Papanicolaou smear of cervix with low grade squamous intraepithelial lesion (LGSIL) PCOS (polycystic ovarian syndrome) Polycystic ovaries Preoperative examination Preoperative examination, unspecified Screening for deficiency anemia Screening for other and unspecified deficiency anemia documented in this encounter Care Teams Infection Control Manager Relationship Specialty Start Date End Date Alexandria Peñaloza MD PCP - General 03/26/10 07/24/20 Kristy Castrejon MD PCP - General Internal Medicine 07/25/20 1 Alexandria Peñaloza MD PCP - General Internal Medicine 11/21/20 05/13/22 Tom White [address] [place] [address] PCP - General Internal Medicine 05/14/22 10/06/22 Marisela Goodrich MD [address] [place] [address] PCP - General Internal Medicine 10/07/22 documented as of this encounter
--- OUTSIDE RECORDS SUMMARY | 2024-12-15 13:46 | XMS_ITS | Encounter Summary ---
Author Organization [facility] Address [address] [place] [address] Care Team Providers Care Airplane Tester Name Role Phone Alexandria Peñaloza MD Primary Care Provider Unava Kristy Rush MD Primary Care Provider Un available Alexandria Peñaloza MD Primary Care Provider Unava ilTom Toscano Primary Care Provider [phone] Marisela Goodrich MD Primary Care Provider + Reason for Visit * Reason Onset Date Comments Prior Authorization 05/30/2014 esomeprazole (NEXIUM) 40 MG capsule Encounter Details Date Type Department Care Team Description 05/30/2014 Telephone Medicine/Pediatrics - [address] [phone] Alexandria Peñaloza MD Prior Authorization (esomeprazole (NEXIUM) 40 MG capsule) Social History Tobacco Use Types Packs/Day Years [...] encounter Miscellaneous Notes * Telephone Encounter - Noemi Sterling - 05/30/2014 11:34 AM EDT Pre Authorization for Medication Does the patient already have this medication?NO Name of Medication esomeprazole (NEXIUM) Dose of Medication 40 MG capsule How does patient take this med? Take 1 Cap by mouth every morning (before breakfast). What other dosage or similar medication have you tried in the past for this problem Patients current medical insurance [facility] p[facility] plan What Prescription Plan does the patient have? Prescription Plan Tel # from back of prescription ID card [phone] What is the patients Prescription Plan ID #? [id number] What Pharmacy does the patient use? [facility]: [place] / Plan: [place] / Product Type: MEDICAID [id number] documented in this encounter Plan of Treatment Not on file documented as of this encounter Visit Diagnoses Not on filedocumented in this encounter Care Teams Airplane Tester Relationship Specialty Start Date End Date Alexandria Peñaloza MD PCP - General 03/26/10 07/24/20 Kristy Castrejon MD PCP - General Internal Medicine 07/25/20 1 Alexandria Peñaloza MD PCP - General Internal Medicine 11/21/20 05/13/22 Tom White [address] [place] [address] PCP - General Internal Medicine 05/14/22 10/06/22 Marisela Goodrich MD [address] [place] [address] PCP - General Internal Medicine 10/07/22 documented as of this encounter
--- OUTSIDE RECORDS SUMMARY | 2024-12-15 13:46 | XMS_ITS | Encounter Summary ---
Author Organization [facility] Address [address] [place] [address] Care Team Providers Care Locomotive Oiler Name Role Phone Alexandria Peñaloza MD Primary Care Provider Unava Kristy Rush MD Primary Care Provider Un available Alexandria Peñaloza MD Primary Care Provider Soniava Tom Booker Primary Care Provider [phone] Marisela Goodrich MD Primary Care Provider + Encounter Details Date Type Department Care Team Description 07/17/2017 [facility] Medical Records [address] [place] [address] Abstract, Provider Social History Tobacco Use Types [...] on filedocumented in this encounter Care Teams Locomotive Oiler Relationship Specialty Start Date End Date Alexandria Peñaloza MD PCP - General 03/26/10 07/24/20 Kristy Castrejon MD PCP - General Internal Medicine 07/25/20 1 Alexandria Peñaloza MD PCP - General Internal Medicine 11/21/20 05/13/22 Tom White [address] [place] [address] PCP - General Internal Medicine 05/14/22 10/06/22 Marisela Goodrich MD [address] [place] [address] PCP - General Internal Medicine 10/07/22 documented as of this encounter
--- OUTSIDE RECORDS SUMMARY | 2024-12-15 13:46 | XMS_ITS | Encounter Summary ---
Author Organization [facility] Address [address] [place] [address] Care Team Providers Care Datawarehouse Developer Name Role Phone Alexnadria Peñaloza MD Primary Care Provider Tom Jane Primary Care Provider [phone] Marisela Goodrich MD Primary Care Provider + Encounter Details Date Type Department Care Team Description 09/08/2021 Pt. Non Urgent Medic al Question Medicine/Pediatrics - [address] [address] Kristy Castrejon MD Social History Tobacco Use [...] on filedocumented in this encounter Care Teams Datawarehouse Developer Relationship Specialty Start Date End Date Alexandria Peñaloza MD PCP - General Internal Medicine 11/21/20 05/13/22 Tom White [address] [place] [address] PCP - General Internal Medicine 05/14/22 10/06/22 Marisela Goodrich MD [address] [place] [address] PCP - General Internal Medicine 10/07/22 documented as of this encounter
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
--- OUTSIDE RECORDS SUMMARY | 2024-12-15 13:46 | XMS_ITS | Encounter Summary ---
Author Organization [facility] Address [address] [place] [address] Care Team Providers Care Copper Roller Handler Printing Name Role Phone Alexandria Peñaloza MD Primary Care Provider Kristy Milan MD Primary Care Provider Un available Alexandria Peñaloza MD Primary Care Provider Soniava Tom Booker Primary Care Provider [phone] Marisela Goodrich MD Primary Care Provider + Encounter Details Date Type Department Care Team Description 04/18/2017 [facility] Medical Records [address] [place] [phone] Social History Tobacco Use Types Packs/Day Years [...] on filedocumented in this encounter Care Teams Copper Roller Handler Printing Relationship Specialty Start Date End Date Alexandria Peñaloza MD PCP - General 03/26/10 07/24/20 Kristy Castrejon MD PCP - General Internal Medicine 07/25/20 1 Alexandria Peñaloza MD PCP - General Internal Medicine 11/21/20 05/13/22 Tom White [address] [place] [address] PCP - General Internal Medicine 05/14/22 10/06/22 Marisela Goodrich MD [address] [place] [address] PCP - General Internal Medicine 10/07/22 documented as of this encounter
--- OUTSIDE RECORDS SUMMARY | 2024-12-15 13:46 | XMS_ITS | Encounter Summary ---
Author Organization [facility] Address [address] [place] [address] Care Team Providers Care Professional Driver Name Role Phone Alexandria Peñaloza MD Primary Care Provider Unava Kristy Rush MD Primary Care Provider Un available Alexandria Peñaloza MD Primary Care Provider Unava Tom Booker Primary Care Provider [phone] Marisela Goodrich MD Primary Care Provider + Encounter Details Date Type Department Care Team Description 09/12/2019 Pt. Non Urgent Medical Question HIGH VALUE ASSOCIATE - [address] [address] [place], ANUM [address] [place] [address] Social History Tobacco Use Types Packs/Day Years [...] on filedocumented in this encounter Care Teams Professional Driver Relationship Specialty Start Date End Date Alexandria Peñaloza MD PCP - General 03/26/10 07/24/20 Kristy Castrejon MD PCP - General Internal Medicine 07/25/20 1 Alexandria Peñaloza MD PCP - General Internal Medicine 11/21/20 05/13/22 Tom White [address] [place] [address] PCP - General Internal Medicine 05/14/22 10/06/22 Marisela Goodrich MD [address] [place] [address] PCP - General Internal Medicine 10/07/22 documented as of this encounter
--- OUTSIDE RECORDS SUMMARY | 2024-12-15 13:46 | XMS_ITS | Encounter Summary ---
Author Organization [facility] Address [address] [place] [address] Care Team Providers Care Executive Secretary Social Welfare Name Role Phone Alexandria Peñaloza MD Primary Care Provider Unava Kristy Rush MD Primary Care Provider Un available Alexandria Peñaloza MD Primary Care Provider Unava Tom Booker Primary Care Provider [phone] Marisela Goodrich MD Primary Care Provider + Encounter Details Date Type Department Care Team Description 09/02/2019 [facility] Medical Records [address] [place] [address] Beatriz Farrell NP Social History Tobacco Use [...] on filedocumented in this encounter Care Teams Executive Secretary Social Welfare Relationship Specialty Start Date End Date Alexandria Peñaloza MD PCP - General 03/26/10 07/24/20 Kristy Castrejon MD PCP - General Internal Medicine 07/25/20 1 Alexandria Peñaloza MD PCP - General Internal Medicine 11/21/20 05/13/22 Tom White [address] [place] [address] PCP - General Internal Medicine 05/14/22 10/06/22 Marisela Goodrich MD [address] [place] [address] PCP - General Internal Medicine 10/07/22 documented as of this encounter
--- OUTSIDE RECORDS SUMMARY | 2024-12-15 13:46 | XMS_ITS | Encounter Summary ---
Author Organization [facility] Address [address] [place] [address] Care Team Providers Care Key Attendant Name Role Phone Alexandria Peñaloza MD Primary Care Provider Unava Kristy Rush MD Primary Care Provider Un available Alexandria Peñaloza MD Primary Care Provider Unava Tom Booker Primary Care Provider [phone] Marisela Goodrich MD Primary Care Provider + Encounter Details Date Type Department Care Team Description 06/14/2019 Telephone Medicine/Pediatrics - [address] [phone] Alexandria Peñaloza MD Social History Tobacco Use [...] on filedocumented in this encounter Care Teams Key Attendant Relationship Specialty Start Date End Date Alexandria Peñaloza MD PCP - General 03/26/10 07/24/20 Kristy Castrejon MD PCP - General Internal Medicine 07/25/20 1 Alexandria Peñaloza MD PCP - General Internal Medicine 11/21/20 05/13/22 Tom White [address] [place] [address] PCP - General Internal Medicine 05/14/22 10/06/22 Marisela Goodrich MD [address] [place] [address] PCP - General Internal Medicine 10/07/22 documented as of this encounter
--- OUTSIDE RECORDS SUMMARY | 2024-12-15 13:46 | XMS_ITS | Encounter Summary ---
Author Organization [facility] Address [address] [place] [address] Care Team Providers Care Director Of Blood Name Role Phone Alexandria Peñaloza MD Primary Care Provider Unava Kristy Rush MD Primary Care Provider Un available Alexandria Peñaloza MD Primary Care Provider Soniava Tom Booker Primary Care Provider [phone] Marisela Goodrich MD Primary Care Provider + Encounter Details Date Type Department Care Team Description 10/22/2019 Release of Information Medical Records [address] [place] [address] Abstract, Provider Social History Tobacco Use Types [...] on filedocumented in this encounter Care Teams Director Of Blood Relationship Specialty Start Date End Date Alexandria Peñaloza MD PCP - General 03/26/10 07/24/20 Kristy Castrejon MD PCP - General Internal Medicine 07/25/20 1 Alexandria Peñaloza MD PCP - General Internal Medicine 11/21/20 05/13/22 Tom White [address] [place] [address] PCP - General Internal Medicine 05/14/22 10/06/22 Marisela Goodrich MD [address] [place] [address] PCP - General Internal Medicine 10/07/22 documented as of this encounter
--- OUTSIDE RECORDS SUMMARY | 2024-12-15 13:46 | XMS_ITS | Encounter Summary ---
Author Organization [facility] Address [address] [place] [address] Care Team Providers Care Documentation Writer Name Role Phone Alexandria Peñaloza MD Primary Care Provider Unava Kristy Rush MD Primary Care Provider Un available Alexandria Peñaloza MD Primary Care Provider Soniava Tom Booker Primary Care Provider [phone] Marisela Goodrich MD Primary Care Provider + Encounter Details Date Type Department Care Team Description 06/30/2017 [facility] Medical Records [address] [place] [address] Abstract, Provider Social History Tobacco Use Types [...] on filedocumented in this encounter Care Teams Documentation Writer Relationship Specialty Start Date End Date Alexandria Peñaloza MD PCP - General 03/26/10 07/24/20 Kristy Castrejon MD PCP - General Internal Medicine 07/25/20 1 Alexandria Peñaloza MD PCP - General Internal Medicine 11/21/20 05/13/22 Tom White [address] [place] [address] PCP - General Internal Medicine 05/14/22 10/06/22 Marisela Goodrich MD [address] [place] [address] PCP - General Internal Medicine 10/07/22 documented as of this encounter
--- OUTSIDE RECORDS SUMMARY | 2024-12-15 13:46 | XMS_ITS | Encounter Summary ---
Author Organization [facility] Address [address] [place] [address] Care Team Providers Care Route Rider Supervisor Name Role Phone Alexandria Peñaloza MD Primary Care Provider Unava Kristy Rush MD Primary Care Provider Un available Alexandria Peñaloza MD Primary Care Provider Soniava Tom Booker Primary Care Provider [phone] Marisela Goodrich MD Primary Care Provider + Encounter Details Date Type Department Care Team Description 08/21/2019 Release of Information Medical Records [address] [place] [address] Abstract, Provider Social History Tobacco Use Types [...] on filedocumented in this encounter Care Teams Route Rider Supervisor Relationship Specialty Start Date End Date Alexandria Peñaloza MD PCP - General 03/26/10 07/24/20 Kristy Castrejon MD PCP - General Internal Medicine 07/25/20 1 Alexandria Peñaloza MD PCP - General Internal Medicine 11/21/20 05/13/22 Tom White [address] [place] [address] PCP - General Internal Medicine 05/14/22 10/06/22 Marisela Goodrich MD [address] [place] [address] PCP - General Internal Medicine 10/07/22 documented as of this encounter
--- OUTSIDE RECORDS SUMMARY | 2024-12-15 13:46 | XMS_ITS | Encounter Summary ---
Author Organization [facility] Address [address] [place] [address] Care Team Providers Care Law Office Receptionist Name Role Phone Alexandria Peñaloza MD Primary Care Provider Unava Kristy Rush MD Primary Care Provider Un available Alexandria Peñaloza MD Primary Care Provider Unava Tom Booker Primary Care Provider [phone] Marisela Goodrich MD Primary Care Provider + Encounter Details Date Type Department Care Team Description 11/05/2016 [facility] Medical Records [address] [place] [address] Ronnie Boyle MD Social History Tobacco Use [...] on filedocumented in this encounter Care Teams Law Office Receptionist Relationship Specialty Start Date End Date Alexandria Peñaloza MD PCP - General 03/26/10 07/24/20 Kristy Castrejon MD PCP - General Internal Medicine 07/25/20 1 Alexandria Peñaloza MD PCP - General Internal Medicine 11/21/20 05/13/22 Tom White [address] [place] [address] PCP - General Internal Medicine 05/14/22 10/06/22 Marisela Goodrich MD [address] [place] [address] PCP - General Internal Medicine 10/07/22 documented as of this encounter
--- OUTSIDE RECORDS SUMMARY | 2024-12-15 13:46 | XMS_ITS | Encounter Summary ---
Author Organization [facility] Address [address] [place] [address] Care Team Providers Care Production Material Handler Name Role Phone Alexandria Peñaloza MD Primary Care Provider Unava Kristy Rush MD Primary Care Provider Un available Alexandria Peñaloza MD Primary Care Provider Unava Tom Booker Primary Care Provider [phone] Marisela Goodrich MD Primary Care Provider + Encounter Details Date Type Department Care Team Description 12/16/2016 [facility] Medical Records [address] [place] [address] Savannah Enamorado DO Social History Tobacco Use Types Packs/Day [...] on filedocumented in this encounter Care Teams Production Material Handler Relationship Specialty Start Date End Date Alexandria Peñaloza MD PCP - General 03/26/10 07/24/20 Kristy Castrejon MD PCP - General Internal Medicine 07/25/20 1 Alexandria Peñaloza MD PCP - General Internal Medicine 11/21/20 05/13/22 Tom White [address] [place] [address] PCP - General Internal Medicine 05/14/22 10/06/22 Marisela Goodrich MD [address] [place] [address] PCP - General Internal Medicine 10/07/22 documented as of this encounter
--- OUTSIDE RECORDS SUMMARY | 2024-12-15 13:47 | XMS_ITS | Encounter Summary ---
Author Organization [facility] Address [address] [place] [address] Care Team Providers Care Powdered Sugar Supervisor Name Role Phone Alexandria Peñaloza MD Primary Care Provider Unava Kristy Rush MD Primary Care Provider Un available Alexandria Peñaloza MD Primary Care Provider Unava Tom Booker Primary Care Provider Marisela Goodrich MD Primary Care Provider + Encounter Details Date Type Department Care Team Description 02/17/2015 RUG CLEANER HAND/[facility] Report Medical Records [address] [place] [address] Abstract, Provider Social History Tobacco Use Types [...] on filedocumented in this encounter Care Teams Powdered Sugar Supervisor Relationship Specialty Start Date End Date Alexandria Peñaloza MD PCP - General 03/26/10 07/24/20 Kristy Castrejon MD PCP - General Internal Medicine 07/25/20 1 Alexandria Peñaloza MD PCP - General Internal Medicine 11/21/20 05/13/22 Tom White [address] [place] [address] PCP - General Internal Medicine 05/14/22 10/06/22 Marisela Goodrich MD [address] [place] [address] PCP - General Internal Medicine 10/07/22 documented as of this encounter
--- OUTSIDE RECORDS SUMMARY | 2024-12-15 13:47 | XMS_ITS | Encounter Summary ---
Author Organization [facility] Address [address] [place] [address] Care Team Providers Care Elementary Ell Teacher Name Role Phone Alexandria Peñaloza MD Primary Care Provider Unava Kristy Rush MD Primary Care Provider Un available Alexandria Peñaloza MD Primary Care Provider Unava Tom Booker Primary Care Provider [phone] Marisela Goodrich MD Primary Care Provider + Reason for Visit * Reason Comments E-prescribe Rx Request Encounter Details Date Type Department Care Team Description 05/12/2019 Refill Medicine/Pediatrics - [address] [address] Cristobal Mares PA-C E-prescribe Rx Request Social [...] EDT RX sent * Telephone Encounter - Lgiia Garcia M.A. - 05/12/2019 12:02 PM EDT [...] N/A Patients current insurance carrier is: Payor: [employer] FFS / Plan: [employer] [facility] / Product Type: MEDICAID RISK documented in this encounter Plan of Treatment Not on file documented as of this encounter Visit Diagnoses Not on filedocumented in this encounter Care Teams Elementary Ell Teacher Relationship Specialty Start Date End Date Alexandria Peñaloza MD PCP - General 03/26/10 07/24/20 Kristy Castrejon MD PCP - General Internal Medicine 07/25/20 1 Alexandria Peñaloza MD PCP - General Internal Medicine 11/21/20 05/13/22 Tom White [address] [place] [address] PCP - General Internal Medicine 05/14/22 10/06/22 Marisela Goodrich MD [address] [place] [address] PCP - General Internal Medicine 10/07/22 documented as of this encounter
--- OUTSIDE RECORDS SUMMARY | 2024-12-15 13:47 | XMS_ITS | Encounter Summary ---
Author Organization [facility] Address [address] [place] [address] Care Team Providers Care Correctional Food Service Supervisor Name Role Phone Alexandria Peñaloza MD Primary Care Provider Tom Jane Primary Care Provider [phone] Marisela Goodrich MD Primary Care Provider + Encounter Details Date Type Department Care Team Description 12/08/2020 [facility] Controlled Substance Contract Medical Records [address] [place] [address] Abstract, Provider Social History Tobacco Use Types [...] or suspected to have Coronavirus / COVID-19? Unable to assess 12/01/2020 7:22 AM EST documented as of this encounter Plan of Treatment Not on file documented as of this encounter Visit Diagnoses Not on filedocumented in this encounter Care Teams Correctional Food Service Supervisor Relationship Specialty Start Date End Date Alexandria Peñaloza MD PCP - General Internal Medicine 11/21/20 05/13/22 Tom White [address] [place], [place] [phone] PCP - General Internal Medicine 05/14/22 10/06/22 Marisela Goodrich MD [address] [place] [address] PCP - General Internal Medicine 10/07/22 documented as of this encounter
--- OUTSIDE RECORDS SUMMARY | 2024-12-15 13:47 | XMS_ITS | Encounter Summary ---
Author Organization [facility] Address [address] [place] [address] Care Team Providers Care Record Clerk Salesperson Name Role Phone Alexandria Peñaloza MD Primary Care Provider Unava Kristy Rush MD Primary Care Provider Un available Alexandria Peñaloza MD Primary Care Provider Unava Tom Booker Primary Care Provider [phone] Marisela Goodrich MD Primary Care Provider + Encounter Details Date Type Department Care Team Description 05/05/2012 Emergency Operator Report Medical Records [address] [place] [address] Reji Hensley [address] [place] [address] Social History Tobacco Use Types Packs/Day Years [...] on filedocumented in this encounter Care Teams Record Clerk Salesperson Relationship Specialty Start Date End Date Alexandria Peñaloza MD PCP - General 03/26/10 07/24/20 Kristy Castrejon MD PCP - General Internal Medicine 07/25/20 1 Alexandria Peñaloza MD PCP - General Internal Medicine 11/21/20 05/13/22 Tom White [address] [place] [address] PCP - General Internal Medicine 05/14/22 10/06/22 Marisela Goodrich MD [address] [place] [address] PCP - General Internal Medicine 10/07/22 documented as of this encounter
--- OUTSIDE RECORDS SUMMARY | 2024-12-15 13:47 | XMS_ITS | Encounter Summary ---
Author Organization [facility] Address [address] [place] [address] Care Team Providers Care Healthcare Risk Control Consultant Name Role Phone Alexandria Peñaloza MD Primary Care Provider Unava Kristy Rush MD Primary Care Provider Un available Alexandria Peñaloza MD Primary Care Provider Unava Tom Booker Primary Care Provider [phone] Marisela Goodrich MD Primary Care Provider + Encounter Details Date Type Department Care Team Description 05/10/2019 Pt. Non Urgent Medic al Question Medicine/Pediatrics - [address] [phone] Alexandria Peñaloza MD Social History Tobacco Use [...] Progress Notes * Gale Mendoza L.P.N. - 05/10/2019 11:56 AM EDTFrom: Sandy Santana To: Alexandria Peñaloza MD Sent: 05/10/2019 11:15 AM EDT Subject: Referral to [facility] neurology Dr. 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 I currently see someone through [facility] but I would like to go out to [facility] because I hear they are verygood. A referral got put in but it was to [facility] neurology for Doctor Rodolfo and I have seen him in the past and he is terrible. I do not want to go there again. If possible could you please put in a referral to me for [facility] I don't care who I see out there I know there's a lot of neurologist. If I need to make another appointment so we can discuss this further that is also okay. Thankyou so much for listening and helping me. Sincerely Sandy Santana documented in this encounter Plan of Treatment Not on file documented as of this encounter Visit Diagnoses Not on filedocumented in this encounter Care Teams Healthcare Risk Control Consultant Relationship Specialty Start Date End Date Alexandria Peñaloza MD PCP - General 03/26/10 07/24/20 Kristy Castrejon MD PCP - General Internal Medicine 07/25/20 1 Alexandria Peñaloza MD PCP - General Internal Medicine 11/21/20 05/13/22 Tom White [address] [place] [address] PCP - General Internal Medicine 05/14/22 10/06/22 Marisela Goodrich MD [address] [place] [address] PCP - General Internal Medicine 10/07/22 documented as of this encounter
--- OUTSIDE RECORDS SUMMARY | 2024-12-15 13:47 | XMS_ITS | Encounter Summary ---
Author Organization [facility] Address [address] [place] [address] Care Team Providers Care Family Services Specialist Name Role Phone Alexandria Peñaloza MD Primary Care Provider Unava Kristy Rush MD Primary Care Provider Un available Alexandria Peñaloza MD Primary Care Provider Unava Tom Booker Primary Care Provider [phone] Marisela Goodrich MD Primary Care Provider + Encounter Details Date Type Department Care Team Description 04/28/2013 Solar Sales Report Medical Records [address] [place] [address] Sam Tinsley MD Social History Tobacco Use [...] on filedocumented in this encounter Care Teams Family Services Specialist Relationship Specialty Start Date End Date Alexandria Peñaloza MD PCP - General 03/26/10 07/24/20 Kristy Castrejon MD PCP - General Internal Medicine 07/25/20 1 Alexandria Peñaloza MD PCP - General Internal Medicine 11/21/20 05/13/22 Tom White [address] [place] [address] PCP - General Internal Medicine 05/14/22 10/06/22 Marisela Goodrich MD [address] [place] [address] PCP - General Internal Medicine 10/07/22 documented as of this encounter
--- OUTSIDE RECORDS SUMMARY | 2024-12-15 13:47 | XMS_ITS | Encounter Summary ---
Author Organization [facility] Address [address] [place] [address] Care Team Providers Care Bingo Floater Name Role Phone Alexandria Peñaloza MD Primary Care Provider Tom Jane Primary Care Provider Marisela Goodrich MD Primary Care Provider + Encounter Details Date Type Department Care Team Description 03/07/2021 [facility] Medical Records [address] [place] [address] Abstract, Provider Social History Tobacco Use Types [...] on filedocumented in this encounter Care Teams Bingo Floater Relationship Specialty Start Date End Date Alexandria Peñaloza MD PCP - General Internal Medicine 11/21/20 05/13/22 Tom White [address] [place], [place] [phone] PCP - General Internal Medicine 05/14/22 10/06/22 Marisela Goodrich MD [address] [place] [address] PCP - General Internal Medicine 10/07/22 documented as of this encounter
--- OUTSIDE RECORDS SUMMARY | 2024-12-15 13:47 | XMS_ITS | Encounter Summary ---
Author Organization [facility] Address [address] [place] [address] Care Team Providers Care Delivery Driver/Supervisor Name Role Phone Kristy Castrejon MD Primary Care Provider Un available Alexandria Peñaloza MD Primary Care Provider Tom Jane Primary Care Provider [phone] Marisela Goodrich MD Primary Care Provider + Encounter Details Date Type Department Care Team Description 10/09/2020 [facility] Medical Records [address] [place] [address] Abstract, Provider Social History Tobacco Use Types [...] on filedocumented in this encounter Care Teams Delivery Driver/Supervisor Relationship Specialty Start Date End Date Kristy Castrejon MD PCP - General Internal Medicine 07/25/20 1 Alexandria Peñaloza MD PCP - General Internal Medicine 11/21/20 05/13/22 Tom White [address] [place] [address] PCP - General Internal Medicine 05/14/22 10/06/22 Marisela Goodrich MD [address] [place] [address] PCP - General Internal Medicine 10/07/22 documented as of this encounter
--- OUTSIDE RECORDS SUMMARY | 2024-12-15 13:47 | XMS_ITS | Encounter Summary ---
Author Organization [facility] Address [address] [place] [address] Care Team Providers Care Network Diagnostic Support Specialist Name Role Phone Alexandria Peñaloza MD Primary Care Provider Tom Jane Primary Care Provider [phone] Marisela Goodrich MD Primary Care Provider + Encounter Details Date Type Department Care Team Description 02/27/2021 Bat Carrier Report Medical Records [address] [place] [address] Nam Villela Social History Tobacco Use Types [...] on filedocumented in this encounter Care Teams Network Diagnostic Support Specialist Relationship Specialty Start Date End Date Alexandria Peñaloza MD PCP - General Internal Medicine 11/21/20 05/13/22 Tom White [address] [place] [id number] PCP - General Internal Medicine 05/14/22 10/06/22 Marisela Goodrich MD [address] [place] [address] PCP - General Internal Medicine 10/07/22 documented as of this encounter
--- OUTSIDE RECORDS SUMMARY | 2024-12-15 13:47 | XMS_ITS | Encounter Summary ---
Author Organization [facility] Address [address] [place] [address] Care Team Providers Care Oil Exploration Engineer Name Role Phone Alexandria Peñaloza MD Primary Care Provider Unava Kristy Rush MD Primary Care Provider Un available Alexandria Peñaloza MD Primary Care Provider Unava Tmo Booker Primary Care Provider [phone] Marisela Goodrich MD Primary Care Provider + Encounter Details Date Type Department Care Team Description 03/17/2013 Orders Only Medicine/Pediatrics - [address] [address] Marli Vanessa PA-C Other malaise and fatigue [...] Primary documented in this encounter Care Teams Oil Exploration Engineer Relationship Specialty Start Date End Date Alexandria Peñaloza MD PCP - General 03/26/10 07/24/20 Kristy Castrejon MD PCP - General Internal Medicine 07/25/20 1 Alexandria Peñaloza MD PCP - General Internal Medicine 11/21/20 05/13/22 Tom White [address] [place] [address] PCP - General Internal Medicine 05/14/22 10/06/22 Marisela Goodrich MD [address] [place] [address] PCP - General Internal Medicine 10/07/22 documented as of this encounter
--- OUTSIDE RECORDS SUMMARY | 2024-12-15 13:47 | XMS_ITS | Encounter Summary ---
Author Organization [facility] Address [address] [place] [address] Care Team Providers Care Recording Engineer Name Role Phone Alexandria Peñaloza MD Primary Care Provider Tom Jane Primary Care Provider [phone] Marisela Goodrich MD Primary Care Provider + Encounter Details Date Type Department Care Team Description 01/12/2021 Senior Business Broker Report Medical Records [address] [place] [id number] Abstract, Provider Social History Tobacco Use Types [...] on filedocumented in this encounter Care Teams Recording Engineer Relationship Specialty Start Date End Date Alexandria Peñaloza MD PCP - General Internal Medicine 11/21/20 05/13/22 Tom White [address] [place] [address] PCP - General Internal Medicine 05/14/22 10/06/22 Marisela Goodrich MD [address] [place] [address] PCP - General Internal Medicine 10/07/22 documented as of this encounter
--- OUTSIDE RECORDS SUMMARY | 2024-12-15 13:47 | XMS_ITS | Encounter Summary ---
Author Organization [facility] Address [address] [place] [address] Care Team Providers Care Wholesale Representative Name Role Phone Alexandria Peñaloza MD Primary Care Provider Unava Kristy Rush MD Primary Care Provider Un available Alexandria Peñaloza MD Primary Care Provider Unava ilable Tom White Primary Care Provider [phone] Marisela Goodrich MD Primary Care Provider + Encounter Details Date Type Department Care Team Description 03/21/2015 Quantitative Analyst Marketing Report Medical Records [address] [place] [address] Peter Matias MD Social History Tobacco Use [...] on filedocumented in this encounter Care Teams Wholesale Representative Relationship Specialty Start Date End Date Alexandria Peñaloza MD PCP - General 03/26/10 07/24/20 Kristy Castrejon MD PCP - General Internal Medicine 07/25/20 1 Alexandria Peñaloza MD PCP - General Internal Medicine 11/21/20 05/13/22 Tom White [address] [place] [address] PCP - General Internal Medicine 05/14/22 10/06/22 Marisela Goodrich MD [address] [place] [address] PCP - General Internal Medicine 10/07/22 documented as of this encounter
--- OUTSIDE RECORDS SUMMARY | 2024-12-15 13:47 | XMS_ITS | Encounter Summary ---
Author Organization [facility] Address [address] [place] [address] Care Team Providers Care Bead Wire Taper Name Role Phone Alexandria Peñaloza MD Primary Care Provider Unava Kristy Rush MD Primary Care Provider Un available Alexandria Peñaloza MD Primary Care Provider Unava Tom Booker Primary Care Provider [phone] Marisela Goodrich MD Primary Care Provider + Encounter Details Date Type Department Care Team Description 11/17/2017 [facility] [address] [place] [address] Md Adis Social History Tobacco Use Types [...] on filedocumented in this encounter Care Teams Bead Wire Taper Relationship Specialty Start Date End Date Alexandria Peñaloza MD PCP - General 03/26/10 07/24/20 Kristy Castrejon MD PCP - General Internal Medicine 07/25/20 1 Alexandria Peñaloza MD PCP - General Internal Medicine 11/21/20 05/13/22 Tom White [address] [place] [address] PCP - General Internal Medicine 05/14/22 10/06/22 Marisela Goodrich MD [address] [place] [address] PCP - General Internal Medicine 10/07/22 documented as of this encounter
--- OUTSIDE RECORDS SUMMARY | 2024-12-15 13:47 | XMS_ITS | Encounter Summary ---
Author Organization [facility] Address [address] [place] [address] Care Team Providers Care Kalsominer Name Role Phone Alexandria Peñaloza MD Primary Care Provider Unava Kristy Rush MD Primary Care Provider Un available Alexandria Peñaloza MD Primary Care Provider Unava Tom Booker Primary Care Provider [phone] Marisela Goodrich MD Primary Care Provider + Encounter Details Date Type Department Care Team Description 07/06/2012 Certified Forklift Operator Report Medical Records [address] [place] [address] Reji Hensley [address] [place] [address] Social History Tobacco Use Types Packs/Day Years [...] on filedocumented in this encounter Care Teams Kalsominer Relationship Specialty Start Date End Date Alexandria Peñaloza MD PCP - General 03/26/10 07/24/20 Kristy Castrejon MD PCP - General Internal Medicine 07/25/20 1 Alexandria Peñaloza MD PCP - General Internal Medicine 11/21/20 05/13/22 Tom White [address] [place] [address] PCP - General Internal Medicine 05/14/22 10/06/22 Marisela Goodrich MD [address] [place] [address] PCP - General Internal Medicine 10/07/22 documented as of this encounter
--- OUTSIDE RECORDS SUMMARY | 2024-12-15 13:47 | XMS_ITS | Encounter Summary ---
Author Organization [facility] Address [address] [place] [address] Care Team Providers Care Pmo Consultant Name Role Phone Alexandria Peñaloza MD Primary Care Provider Tom Jane Primary Care Provider [phone] Marisela Goodrich MD Primary Care Provider + Encounter Details Date Type Department Care Team Description 01/30/2021 Milk Tester Report Medical Records [address] [place] [address] Nam Villela Social History Tobacco Use Types [...] have Coronavirus / COVID-19? No / Unsure 02/02/2021 10:16 AM EDT documented as of this encounter Plan of Treatment Not on file documented as of this encounter Visit Diagnoses Not on filedocumented in this encounter Care Teams Pmo Consultant Relationship Specialty Start Date End Date Alexandria Peñaloza MD PCP - General Internal Medicine 11/21/20 05/13/22 Tom White [address] [place] [phone] PCP - General Internal Medicine 05/14/22 10/06/22 Marisela Goodrich MD [address] [place] [address] PCP - General Internal Medicine 10/07/22 documented as of this encounter
--- OUTSIDE RECORDS SUMMARY | 2024-12-15 13:47 | XMS_ITS | Encounter Summary ---
Author Organization [facility] Address [address] [place] [address] Care Team Providers Care Bulk Station Operator Name Role Phone Alexandria Peñaloza MD Primary Care Provider Unava Kristy Rush MD Primary Care Provider Un available Alexandria Peñaloza MD Primary Care Provider Soniava Tom Booker Primary Care Provider [phone] Marisela Goodrich MD Primary Care Provider + Encounter Details Date Type Department Care Team Description 05/21/2019 [facility] Medical Records [address] [place] [address] Abstract, Provider Social History Tobacco Use Types [...] on filedocumented in this encounter Care Teams Bulk Station Operator Relationship Specialty Start Date End Date Alexandria Peñaloza MD PCP - General 03/26/10 07/24/20 Kristy Castrejon MD PCP - General Internal Medicine 07/25/20 1 Alexandria Peñaloza MD PCP - General Internal Medicine 11/21/20 05/13/22 Tom White [address] [place] [address] PCP - General Internal Medicine 05/14/22 10/06/22 Marisela Goodrich MD [address] [place] [address] PCP - General Internal Medicine 10/07/22 documented as of this encounter
--- OUTSIDE RECORDS SUMMARY | 2024-12-15 13:47 | XMS_ITS | Encounter Summary ---
Author Organization [facility] Address [address] [place] [address] Care Team Providers Care Boat Joiner Helper Name Role Phone Alexandria Peñaloza MD Primary Care Provider Unava Kristy Rush MD Primary Care Provider Un available Alexandria Peñaloza MD Primary Care Provider Unava ilTom Toscano Primary Care Provider [phone] Marisela Goodrich MD Primary Care Provider + Encounter Details Date Type Department Care Team Description 12/31/2013 Inspector Repairer Report Medical Records [address] [place] [id number] Ba Maharaj MD Social History Tobacco Use [...] on filedocumented in this encounter Care Teams Boat Joiner Helper Relationship Specialty Start Date End Date Alexandria Peñaloza MD PCP - General 03/26/10 07/24/20 Kristy Castrejon MD PCP - General Internal Medicine 07/25/20 1 Alexandria Peñaloza MD PCP - General Internal Medicine 11/21/20 05/13/22 Tom White [address] [place] [address] PCP - General Internal Medicine 05/14/22 10/06/22 Marisela Goodrich MD [address] [place] [address] PCP - General Internal Medicine 10/07/22 documented as of this encounter
--- OUTSIDE RECORDS SUMMARY | 2024-12-15 13:47 | XMS_ITS | Encounter Summary ---
Author Organization [facility] Address [address] [place] [address] Care Team Providers Care Manufacturing Plant Manager Name Role Phone Alexandria Peñaloza MD Primary Care Provider Unava Kristy Rush MD Primary Care Provider Un available Alexandria Peñaloza MD Primary Care Provider Unava Tom Booker Primary Care Provider [phone] Marisela Goodrich MD Primary Care Provider + Reason for Visit * Reason Comments E-prescribe Rx Request Encounter Details Date Type Department Care Team Description 05/07/2019 Refill Medicine/Pediatrics - [address] [phone] Cristobal Mares PA-C E-prescribe Rx Request Social [...] Telephone Encounter - Ligia Garcia M.A. - 05/07/2019 11:16 AM EDT Pt has CSC for Oxy. Last Rx for this med 03/26/19. Last ov 04/22/19 * Telephone Encounter - Johanny Esposito - 05/07/2019 9:30 AM EDT Patient would like script to be: E-PRESCRIBED/FAXED TO PHARMACY WHEN WAS THE PATIENT'S LAST APPOINTMENT IN ADULT MEDICINE? [id number] WHEN WAS THE LAST TIME THE PATIENT SAW THEIR PCP? [phone] Does patient have an upcoming appointment? no (THE MEDICATION REQUESTED IS ON THE MED [...] N/A Patients current insurance carrier is: Payor: [employer] FFS / Plan: dooub [facility] / Product Type: MEDICAID RISK documented in this encounter Plan of Treatment Not on file documented as of this encounter Visit Diagnoses Not on filedocumented in this encounter Care Teams Manufacturing Plant Manager Relationship Specialty Start Date End Date Alexandria Peñaloza MD PCP - General 03/26/10 07/24/20 Kristy Castrejon MD PCP - General Internal Medicine 07/25/20 1 Alexandria Peñaloza MD PCP - General Internal Medicine 11/21/20 05/13/22 Tom White [address] [place] [address] PCP - General Internal Medicine 05/14/22 10/06/22 Marisela Goodrich MD [address] [place] [address] PCP - General Internal Medicine 10/07/22 documented as of this encounter
--- OUTSIDE RECORDS SUMMARY | 2024-12-15 13:47 | XMS_ITS | Clinical Summary ---
Author Organization [facility] Facility Address [address] [address] Care Team Providers Care Political Reporter Name Role Phone Tom White MD Primary [...] Vaccine (#1) 2024 09/22/2018, 2016 Insurance MEDICAID [place] Care Teams Political Reporter Relationship Specialty Start Date End Date Tom White MD [address] [place] [address] PCP - [facility] 02/14/23
--- OUTSIDE RECORDS SUMMARY | 2024-12-15 13:47 | XMS_ITS | Encounter Summary ---
Author Organization [facility] Address [address] [place] [address] Care Team Providers Care Interactive Art Director Name Role Phone Alexandria Peñaloza MD Primary Care Provider Unava Kristy Rush MD Primary Care Provider Un available Alexandria Peñaloza MD Primary Care Provider Unava Tom Booker Primary Care Provider [phone] Marisela Goodrich MD Primary Care Provider + Encounter Details Date Type Department Care Team Description 03/18/2013 Orders Only Medicine/Pediatrics - [address] [phone] Marli Vanessa PA-C Other malaise and fatigue [...] Primary documented in this encounter Care Teams Interactive Art Director Relationship Specialty Start Date End Date Alexandria Peñaloza MD PCP - General 03/26/10 07/24/20 Kristy Castrejon MD PCP - General Internal Medicine 07/25/20 1 Alexandria Peñaloza MD PCP - General Internal Medicine 11/21/20 05/13/22 Tom White [address] [place] [address] PCP - General Internal Medicine 05/14/22 10/06/22 Marisela Goodrich MD [address] [place] [address] PCP - General Internal Medicine 10/07/22 documented as of this encounter
--- OUTSIDE RECORDS SUMMARY | 2024-12-15 13:47 | XMS_ITS | Encounter Summary ---
Author Organization [facility] Address [address] [place] [address] Care Team Providers Care Insecticide Supervisor Name Role Phone Alexandria Peñaloza MD Primary Care Provider Tom Jane Primary Care Provider [phone] Marisela Goodrich MD Primary Care Provider + Reason for Visit * Reason Onset Date Comments Prior Authorization 04/18/2021 Encounter Details Date Type Department Care Team Description 04/18/2021 Refill Adult Medicine [address] [address] Alexandria Peñaloza MD Prior Authorization Social History [...] Is this a Cover My Meds request: [place] of Medication Pregablin Dose of Medication 25 mg capsules What is the RX # from the faxed refill? How does patient take this med? What Pharmacy did the fax come from: [facility] Pharmacy fax #: [phone] [employer] Party Information from fax: What Prescription Plan does the patient have? BIN/PCN if applicable: Cardholder ID: Person Code: Relationship Code: Help desk phone: documented in this encounter Plan of Treatment Not on file documented as of this encounter Visit Diagnoses Not on filedocumented in this encounter Care Teams Insecticide Supervisor Relationship Specialty Start Date End Date Alexandria Peñaloza MD PCP - General Internal Medicine 11/21/20 05/13/22 Tom White [address] [place] [address] PCP - General Internal Medicine 05/14/22 10/06/22 Marisela Goodrich MD [address] [place] [address] PCP - General Internal Medicine 10/07/22 documented as of this encounter
--- OUTSIDE RECORDS SUMMARY | 2024-12-15 13:47 | XMS_ITS | Encounter Summary ---
Author Organization [facility] Address [address] [place] [address] Care Team Providers Care Mineral Technologist Name Role Phone Alexandria Peñaloza MD Primary Care Provider Unava Kristy Rush MD Primary Care Provider Un available Alexandria Peñaloza MD Primary Care Provider Unava Tom Booker Primary Care Provider [phone] Marisela Goodrich MD Primary Care Provider + Reason for Referral * EXTERNAL (Routine) - Authorized/Booked Specialty Diagnoses / Procedures Referred By Caitie t Referred To Contact Neurology Procedures REFERRAL TO NEUROLOGY Alexandria Peñaloza MD [address] [place] [address] [facility] Referral ID Status Reason Start Date Expiration Date V isits Requested Visits Authorized SEE NOTE Authorized/B ooked 05/10/2019 08/11/2019 1 1 Reason for Visit * Reason Onset Date Comments Instructor Military Science Feedback 05/10/2019 [facility] General Angus rology Encounter Details Date Type Department Care Team Description 05/10/2019 Telephone Medicine/Pediatrics - [address] [phone] Alexandria Peñaloza MD Instructor Military Science Feedback ([facility] General Neurology) Social History Tobacco Use Types Packs/Day Years [...] encounter Miscellaneous Notes * Telephone Encounter - Martina Almonte - 05/10/2019 11:28 AM EDT Please review this patients new referral [...] on filedocumented in this encounter Care Teams Mineral Technologist Relationship Specialty Start Date End Date Alexandria Peñaloza MD PCP - General 03/26/10 07/24/20 Kristy Castrejon MD PCP - General Internal Medicine 07/25/20 1 Alexandria Peñaloza MD PCP - General Internal Medicine 11/21/20 05/13/22 Tom White [address] [place] [address] PCP - General Internal Medicine 05/14/22 10/06/22 Marisela Goodrich MD [address] [place] [address] PCP - General Internal Medicine 10/07/22 documented as of this encounter
--- OUTSIDE RECORDS SUMMARY | 2024-12-15 13:47 | XMS_ITS | Encounter Summary ---
Author Organization [facility] Address [address] [place] [address] Care Team Providers Care Power Wood Sawyer Name Role Phone Kristy Castrejon MD Primary Care Provider Un available Alexandria Peñaloza MD Primary Care Provider Unava Tom Booker Primary Care Provider [phone] Marisela Goodrich MD Primary Care Provider + Encounter Details Date Type Department Care Team Description 10/05/2020 Telephone OBGYN - [place] [address] [place] [address] Sandro Preciado MD [address] [place], [place] [phone] Social History Tobacco Use Types Packs/Day Years [...] * Telephone Encounter - Monse Mo - 10/05/2020 11:44 AM EST Faxed booking sheet to Aimee for cancellation. Peer Provider surgery is no longer needed. documented in this encounter Plan of Treatment Not on file documented as of this encounter Visit Diagnoses Not on filedocumented in this encounter Care Teams Power Wood Sawyer Relationship Specialty Start Date End Date Kristy Castrejon MD PCP - General Internal Medicine 07/25/20 1 Alexandria Peñaloza MD PCP - General Internal Medicine 11/21/20 05/13/22 Tom White [address] [place], [place] [phone] PCP - General Internal Medicine 05/14/22 10/06/22 Marisela Goodrich MD [address] [place] [address] PCP - General Internal Medicine 10/07/22 documented as of this encounter
--- OUTSIDE RECORDS SUMMARY | 2024-12-15 13:47 | XMS_ITS | Encounter Summary ---
Author Organization [facility] Address [address] [place] [address] Care Team Providers Care Crop Duster Helper Name Role Phone Alexandria Peñaloza MD Primary Care Provider Unava Kristy Rush MD Primary Care Provider Un available Alexandria Peñaloza MD Primary Care Provider Unava Tom Booker Primary Care Provider [phone] Marisela Goodrich MD Primary Care Provider + Encounter Details Date Type Department Care Team Description 03/24/2019 Hospital Medical Records [address] [place] [address] Jesus, Skylar [address] [place] [address] Social History Tobacco Use Types Packs/Day Years [...] on filedocumented in this encounter Care Teams Crop Duster Helper Relationship Specialty Start Date End Date Alexandria Peñaloza MD PCP - General 03/26/10 07/24/20 Kristy Castrejon MD PCP - General Internal Medicine 07/25/20 1 Alexandria Peñaloza MD PCP - General Internal Medicine 11/21/20 05/13/22 Tom White [address] [place] [address] PCP - General Internal Medicine 05/14/22 10/06/22 Marisela Goodrich MD [address] [place] [address] PCP - General Internal Medicine 10/07/22 documented as of this encounter
--- OUTSIDE RECORDS SUMMARY | 2024-12-15 13:47 | XMS_ITS | Encounter Summary ---
Author Organization [facility] Address [address] [place] [address] Care Team Providers Care Waste Duster Name Role Phone Marisela Goodrich MD Primary Care Provider + Encounter Details Date Type Department Care Team Description 03/17/2023 Refill Medicine/Pediatrics - [address] [phone] Alexandria Peñaloza MD Social History Tobacco Use [...] Recorded In the last 10 days, have ernestine haile been in contact with someone who was confirmed or suspected to have Coronavirus/COVID-19? No / Unsure 02/26/2023 12:40 PM EDT documented as of this encounter Plan of Treatment Not on file documented as of this encounter Visit Diagnoses Not on filedocumented in this encounter Care Teams Waste Duster Relationship Specialty Start Date End Date Marisela Goodrich MD [address] [place] [address] PCP - General Internal Medicine 10/07/22 documented as of this encounter
--- OUTSIDE RECORDS SUMMARY | 2024-12-15 13:47 | XMS_ITS | Encounter Summary ---
Author Organization [facility] Address [address] [place] [address] Care Team Providers Care Mail Processing Associate Name Role Phone Alexandria Peñaloza MD Primary Care Provider Tom Jane Primary Care Provider [phone] Marisela Goodrich MD Primary Care Provider + Encounter Details Date Type Department Care Team Description 01/18/2021 [facility] Medical Records [address] [place] [address] Devin Pereira MD Social History Tobacco Use Types Packs/Day [...] on filedocumented in this encounter Care Teams Mail Processing Associate Relationship Specialty Start Date End Date Alexandria Peñaloza MD PCP - General Internal Medicine 11/21/20 05/13/22 Tom White [address] [place] [address] PCP - General Internal Medicine 05/14/22 10/06/22 Marisela Goodrich MD [address] [place] [address] PCP - General Internal Medicine 10/07/22 documented as of this encounter
--- OUTSIDE RECORDS SUMMARY | 2024-12-15 13:47 | XMS_ITS | Encounter Summary ---
Author Organization [facility] Address [address] [place] [address] Care Team Providers Care Technical Services Coordinator Name Role Phone Alexandria Peñaloza MD Primary Care Provider Unava Kristy Rush MD Primary Care Provider Un available Alexandria Peñaloza MD Primary Care Provider Soniava Tom Booker Primary Care Provider [phone] Marisela Goodrich MD Primary Care Provider + Encounter Details Date Type Department Care Team Description 12/02/2014 Hereditary Cancer Qu iz Results Medical Records [address] [place] [address] Abstract, Provider Social History Tobacco Use Types [...] in this encounter Care Teams Technical Services Coordinator Relationship Specialty Start Date End Date Alexandria Peñaloza MD PCP - General 03/26/10 07/24/20 Kristy Castrejon MD PCP - General Internal Medicine 07/25/20 1 Alexandria Peñaloza MD PCP - General Internal Medicine 11/21/20 05/13/22 Tom White [address] [place] [address] PCP - General Internal Medicine 05/14/22 10/06/22 Marisela Goodrich MD [address] [place] [address] PCP - General Internal Medicine 10/07/22 documented as of this encounter
--- OUTSIDE RECORDS SUMMARY | 2024-12-15 13:47 | XMS_ITS | Encounter Summary ---
Author Organization [facility] Address [address] [place] [address] Care Team Providers Care Finisher Merchant Products Name Role Phone Alexandria Peñaloza MD Primary Care Provider Unava Kristy Rush MD Primary Care Provider Un available Alexandria Peñaloza MD Primary Care Provider Unava ilable Tom White Primary Care Provider [phone] Marisela Goodrich MD Primary Care Provider + Reason for Visit * Reason Onset Date Comments Surgery (Schedule) 11/23/2012 Encounter Details Date Type Department Care Team Description 11/23/2012 Telephone OBGYN - [address] [address] Easton [place] MD Surgery (Schedule) Social History Tobacco Use Types Packs/Day Years Used Date Smoking Tobacco: Every Day Cigarettes 0.3 7 Smokeless Tobacco: Never Comments:4 cigs a day Alcohol Use Standard Drinks/Week Comments No 0 (1 standard drink = 0.6 oz pur e alcohol) Sex Assigned at Date Recorded Female 07/19/2020 10:28 AM EDT Job Start Date Occupation Industry Not on file Not on file Not on file documented as of this encounter Miscellaneous Notes * Telephone Encounter - Alda Maldonado - 11/23/2012 9:46 AM EST Chief Complaint/problem: Patient is requesting to have her surgery scheduled How long has the patient had this problem? N/A Pt???s SECURITY DIRECTOR provider: Easton [place] MD Last menstrual period (LMP) or EDC (due date): N/A documented in this encounter Plan of Treatment Not on file documented as of this encounter Visit Diagnoses Not on filedocumented in this encounter Care Teams Finisher Merchant Products Relationship Specialty Start Date End Date Alexandria Peñaloza MD PCP - General 03/26/10 07/24/20 Kristy Castrejon MD PCP - General Internal Medicine 07/25/20 1 Alexandria Peñaloza MD PCP - General Internal Medicine 11/21/20 05/13/22 Tom White [address] [place] [address] PCP - General Internal Medicine 05/14/22 10/06/22 Marisela Goodrich MD [address] [place] [address] PCP - General Internal Medicine 10/07/22 documented as of this encounter
--- OUTSIDE RECORDS SUMMARY | 2024-12-15 13:47 | XMS_ITS | Encounter Summary ---
Author Organization [facility] Address [address] [place] [address] Care Team Providers Care State Editor Name Role Phone Marisela Goodrich MD Primary Care Provider + Encounter Details Date Type Department Care Team Description 12/27/2022 Refill Medicine/Pediatrics - [address] [phone] Alexandria Peñaloza MD Social History Tobacco Use [...] EST Labs pending to date, sent f/u Entrispheret message requesting a response. * Telephone Encounter - Robbie Hogan M.A. - 12/28/2022 8:46 PM EST Adventure[employer] message to pt- needs to have labs [...] on filedocumented in this encounter Care Teams State Editor Relationship Specialty Start Date End Date Marisela Goodrich MD [address] [place] [address] PCP - General Internal Medicine 10/07/22 documented as of this encounter
--- OUTSIDE RECORDS SUMMARY | 2024-12-15 13:47 | XMS_ITS | Encounter Summary ---
Author Organization [facility] Address [address] [place] [address] Care Team Providers Care Supervisory Cbp Officer Name Role Phone Alexandria Peñaloza MD Primary Care Provider Unava Kristy Rush MD Primary Care Provider Un available Alexandria Peñaloza MD Primary Care Provider Soniava Tom Booker Primary Care Provider [phone] Marisela Goodrich MD Primary Care Provider + Encounter Details Date Type Department Care Team Description 10/21/2017 Blend Technician Report Medical Records [address] [place] [address] Sam Tinsley MD Social History Tobacco Use [...] on filedocumented in this encounter Care Teams Supervisory Cbp Officer Relationship Specialty Start Date End Date Alexandria Peñaloza MD PCP - General 03/26/10 07/24/20 Kristy Castrejon MD PCP - General Internal Medicine 07/25/20 1 Alexandria Peñaloza MD PCP - General Internal Medicine 11/21/20 05/13/22 Tom White [address] [place] [address] PCP - General Internal Medicine 05/14/22 10/06/22 Marisela Goodrich MD [address] [place] [address] PCP - General Internal Medicine 10/07/22 documented as of this encounter
--- OUTSIDE RECORDS SUMMARY | 2024-12-15 13:47 | XMS_ITS | Encounter Summary ---
Author Organization [facility] Address [address] [place] [address] Care Team Providers Care Sanitation Manager Name Role Phone Marisela Goodrich MD Primary Care Provider + Reason for Visit * Reason Comments E-prescribe Rx Request Encounter Details Date Type Department Care Team Description 07/30/2023 Refill Medicine/Pediatrics - [place] [address] [place] [phone] Marisela Goodrich MD [address] [place] [address] E-prescribe Rx Request Social History Tobacco Use [...] encounter Miscellaneous Notes * Telephone Encounter - Calista Hylton - 07/30/2023 4:47 PM EDT Patient [...] N/A Patients current insurance carrier is: Payor: [facility] FFS / Plan: [facility] / Product Type: MEDICAID RISK documented in this encounter Plan of Treatment Not on file documented as of this encounter Visit Diagnoses Not on filedocumented in this encounter Care Teams Sanitation Manager Relationship Specialty Start Date End Date Marisela Goodrich MD [address] [place] [address] PCP - General Internal Medicine 10/07/22 documented as of this encounter
--- OUTSIDE RECORDS SUMMARY | 2024-12-15 13:47 | XMS_ITS | Encounter Summary ---
Author Organization [facility] Address [address] [place] [address] Care Team Providers Care Technical Sales Advisor Name Role Phone Marisela Goodrich MD Primary Care Provider + Encounter Details Date Type Department Care Team Description 01/22/2023 Senior Marketing Analyst Report Medical Records [address] [place] [address] Ronnie Boyle MD Social History Tobacco Use [...] filedocumented in this encounter Care Teams Technical Sales Advisor Relationship Specialty Start Date End Date Marisela Goodrich MD [address] [place] [address] PCP - General Internal Medicine 10/07/22 documented as of this encounter
--- OUTSIDE RECORDS SUMMARY | 2024-12-15 13:47 | XMS_ITS | Encounter Summary ---
Author Organization [facility] Address [address] [place] [address] Care Team Providers Care Vibration Technician Name Role Phone Alexandria Peñaloza MD Primary Care Provider Unava Kristy Rush MD Primary Care Provider Un available Alexandria Peñaloza MD Primary Care Provider Unava Tom Booker Primary Care Provider [phone] Marisela Goodrich MD Primary Care Provider + Reason for Visit * Reason Comments E-prescribe Rx Request Encounter Details Date Type Department Care Team Description 01/12/2013 Refill Medicine/Pediatrics - [address] [address] Marli Vanessa PA-C E-prescribe Rx Request Social History Tobacco [...] encounter Miscellaneous Notes * Telephone Encounter - Nicki Sierra M.A. - 01/12/2013 12:13 PM EST Last ov 08/14/12 next appt. 01/26/13 * Telephone Encounter - Kindra Lemus - 01/12/2013 11:28 AM EST WHEN WAS THE PATIENT'S LAST APPOINTMENT IN ADULT MEDICINE? 08/14/2012 WHEN WAS THE LAST TIME THE PATIENT SAW THEIR PCP? Same as above Does patient have an upcoming appointment? Yes 01/26/2013 (THE MEDICATION REQUESTED IS ON THE MED LIST ABOVE) All of the medications requested were on the CURRENT MEDS list Did you check the Pharmacy information above?: YES Patient wants: 30 -day supply Patient would like script to be: E-PRESCRIBED/FAXED TO PHARMACY Is this a mail order prescription request ? NO Indicate how soon the patient needs the script: BY THE END OF THE DAY Patients current insurance carrier is: [place] Plan: MEDICAID [facility] Product Type: MEDICAIDFEE-FOR-SERVICE documented in this encounter Plan of Treatment Not on file documented as of this encounter Visit Diagnoses Not on filedocumented in this encounter Care Teams Vibration Technician Relationship Specialty Start Date End Date Alexandria Peñaloza MD PCP - General 03/26/10 07/24/20 Kristy Castrejon MD PCP - General Internal Medicine 07/25/20 1 Alexandria Peñaloza MD PCP - General Internal Medicine 11/21/20 05/13/22 Tom White [address] [place] [address] PCP - General Internal Medicine 05/14/22 10/06/22 Marisela Goodrich MD [address] [place] [address] PCP - General Internal Medicine 10/07/22 documented as of this encounter
--- OUTSIDE RECORDS SUMMARY | 2024-12-15 13:47 | XMS_ITS | Encounter Summary ---
Author Organization [facility] Address [address] [place] [address] Care Team Providers Care Pulp Drier Name Role Phone Alexandria Peñaloza MD Primary Care Provider Unava Kristy Rush MD Primary Care Provider Un available Alexandria Peñaloza MD Primary Care Provider Unava Tom Booker Primary Care Provider [phone] Marisela Goodrich MD Primary Care Provider + Encounter Details Date Type Department Care Team Description 04/06/2015 KITCHENHAND/[facility] Report Medical Records [address] [place] [address] Abstract, Provider Social History Tobacco Use Types [...] on filedocumented in this encounter Care Teams Pulp Drier Relationship Specialty Start Date End Date Alexandria Peñaloza MD PCP - General 03/26/10 07/24/20 Kristy Castrejon MD PCP - General Internal Medicine 07/25/20 1 Alexandria Peñaloza MD PCP - General Internal Medicine 11/21/20 05/13/22 Tom White [address] [place] [address] PCP - General Internal Medicine 05/14/22 10/06/22 Marisela Goodrich MD [address] [place] [address] PCP - General Internal Medicine 10/07/22 documented as of this encounter
--- OUTSIDE RECORDS SUMMARY | 2024-12-15 13:47 | XMS_ITS | Encounter Summary ---
Author Organization [facility] Address [address] [place] [address] Care Team Providers Care English Faculty Member Name Role Phone Alexandria Peñaloza MD Primary Care Provider Unava Kristy Rush MD Primary Care Provider Un available Alexandria Peñaloza MD Primary Care Provider Unava Tom Booker Primary Care Provider [phone] Marisela Goodrich MD Primary Care Provider + Encounter Details Date Type Department Care Team Description [facility]/10[facility] [address] [place] [address] Md Adis Social History Tobacco Use Types [...] on filedocumented in this encounter Care Teams English Faculty Member Relationship Specialty Start Date End Date Alexandria Peñaloza MD PCP - General 03/26/10 07/24/20 Kristy Castrejon MD PCP - General Internal Medicine 07/25/20 1 Alexandria Peñaloza MD PCP - General Internal Medicine 11/21/20 05/13/22 Tom White [address] [place] [address] PCP - General Internal Medicine 05/14/22 10/06/22 Marisela Goodrich MD [address] [place] [address] PCP - General Internal Medicine 10/07/22 documented as of this encounter
--- OUTSIDE RECORDS SUMMARY | 2024-12-15 13:47 | XMS_ITS | Encounter Summary ---
Author Organization [facility] Address [address] [place] [address] Care Team Providers Care Policy Services Representative Name Role Phone Kristy Castrejon MD Primary Care Provider Un available Alexandria Peñaloza MD Primary Care Provider Soniava Tom Booker Primary Care Provider [phone] Marisela Goodrich MD Primary Care Provider + Encounter Details Date Type Department Care Team Description 09/22/2020 Refill Medicine/Pediatrics - [address] [address] Alexandria Peñaloza MD Social History Tobacco Use [...] encounter Miscellaneous Notes * Telephone Encounter - Blaine Vincent M.A. - 09/22/2020 1:12 PM EST Last ov 09/10/20 Controlled substance contract and last issue date of medication reviewed. Patient is due for medication. Lab Results Component Value Date URBENZO NONE DETECTED 07/28/2020 UROPIATES NONE DETECTED 07/28/2020 URBARBITUATE NONE DETECTED 07/28/2020 PAINAMPHETAM NONE DETECTED 07/28/2020 PAINCOCAINE NONE DETECTED 07/28/2020 PAINCANNABIN NONE DETECTED 07/28/2020 Sandy Santana, 34F Powered by [employer] Opioid Stewardship Module Ill[employer] Report Resources Date: 09/22/2020 Download CSV Download PDF Sandy Santana Risk Indicators STATE CLINICAL ALERTS (0) Explanation and Guidance This [employer] report is based on search criteria supplied and the data [facility] by the [facility]. For more information about any prescription, please contact the dispensing pharmacy or the prescriber. [employer] scores and reports are intended to aid, not replace, medical decision making. None of the information presented should be used as sole justification for providing or refusingto provide medications. The information on this report is not warranted as accurate or complete. Graphs INFORMATION GRAPH Narcotic Buprenorphine Sedative Stimulant Other All [id number] - Sandra Penan15 - Reji Hensley, Pa14 - Alexandria Armentae13 - Kristy Mac2 - Ari Love11 - Mary Gayle [place] [id number] - Sam Tinsley, 9 - Sandy Villa, 8 - Cristobal Mares7 - [facility] 6 - Geoffrey Camarillo V,5 - Marli Vanessa,4 - Rinku Romeo MD3 - Savannah Chowdhuryg2 - Milagros Schaeffer1 - Damon Thomas MDTimeline11/[id number] Buprenorphine mg 404800 [id number] Morphine MgEq (MME) [id number] Lorazepam MgEq (LME) [id number] *Per CDC guidance, the MME conversion factors prescribed or provided as part of the medication-assisted treatment for opioid use disorder should not be used to benchmark against dosage thresholds meant for opioids prescribed for pain. Buprenorphine products have no agreed upon morphine equivalency,and as partial opioid agonists, are not expected to be associated with overdose risk in the same dose-dependent manner as doses for full agonist opioids. MME = morphine milligram equivalents. LME = Lorazepam milligram equivalents. mg = dose in milligrams. Summary Summary Total Prescriptions: 79 Total Prescribers: 16 Total Pharmacies: 3 Narcotics* (excluding Buprenorphine) Current Qty: 0 Current MME/day: 0.00 30 Day Avg MME/day: 4.67 Sedatives* Current Qty: 8 Current LME/day: 3.33 30 Day Avg LME/day: 2.90 Buprenorphine* Current Qty: 0 Current mg/day: 0.00 30 Day Avg mg/day: 0.00 Rx Data PRESCRIPTIONS Total Prescriptions: 79 Total Private Pay: 2 Fill Date ID Written Drug Qty Days Prescriber Rx # Pharmacy Refill Daily Dose * Pymt Type [employer] 08/28/2020 1 08/28/2020 Lorazepam 2 Mg Tablet 30 30 [facility] W[id number] 0/1 2.00 [place] 08/28/2020 1 08/28/2020 Diazepam 2 Mg Tablet 20 30 Dinero Reu [id number] [facility] 0/1 0.13 [place] 08/27/2020 1 08/25/2020 Hydrocodone-Acetamin 5-325 Mg 28 14 [facility] [id number] [facility] ([facility] 0/0 10.00 [place] 08/25/2020 1 03/08/2020 Vimpat 150 Mg Tablet 60 30 Jalyn Woj [id number] [facility] ([facility] 4/5 1.20 [place] 07/31/2020 1 07/25/2020 Hydrocodone-Acetamin 5-325 Mg 28 14 [facility] [id number] [facility] ([facility] 0/0 10.00 [place] 07/28/2020 1 07/27/2020 Diazepam 2 Mg Tablet 20 20 [place] [id number] [facility] 0/0 0.20 [place] 07/13/2020 1 02/15/2020 Lorazepam 2 Mg Tablet 30 30 Jalyn Woj [id number] [facility] ([facility] 5/5 2.00 [place] 07/11/2020 1 03/08/2020 Vimpat 150 Mg Tablet 60 30 [facility]alyn Woj [id number] [facility] ([facility] 3/5 1.20 [place] 06/21/2020 1 06/21/2020 Hydrocodone-Acetamin 5-325 Mg 28 14 [facility] [id number] [facility] (14[facility] 0/0 10.00 MME [place] 06/21/2020 1 06/21/2020 Diazepam 2 Mg Tablet 14 14 [facility] [id number] [facility] (14[facility] 0/0 0.20 [place] 06/11/2020 1 02/15/2020 Lorazepam 2 Mg Tablet 30 30 Jalyn Woj [id number] [facility] (14[facility]) 4/5 2.00 [place] 05/29/2020 1 03/08/2020 Vimpat 150 Mg Tablet 60 30 [facility]yn Woj [id number] [facility] (14[facility] 2/5 1.20 [place] 05/22/2020 1 05/18/2020 Hydrocodone-Acetamin 5-325 Mg 28 14 [place] [id number] [facility] ([facility] 0/0 10.00 [place] 05/13/2020 1 02/15/2020 Lorazepam 2 Mg Tablet 30 30 [facility] [id number] [facility] ([facility] 3/5 2.00 [place] 05/12/2020 1 05/12/2020 Diazepam 2 Mg Tablet 14 14 [place] [id number] [facility] ([facility] 0/0 0.20 [place] 04/15/2020 1 02/15/2020 Lorazepam 2 Mg Tablet 30 30 [facility] Woj [id number] [facility] ([facility] 2/5 2.00 [place] 04/15/2020 1 04/13/2020 Hydrocodone-Acetamin 5-325 Mg 28 14 [place] [id number] [facility] ([facility] 0/0 10.00 [place] 04/14/2020 1 03/08/2020 Vimpat 150 Mg Tablet 60 30 [facility] Woj [id number] [facility] ([facility] 1/5 1.20 [place] 03/18/2020 1 03/15/2020 Hydrocodone-Acetamin 5-325 Mg 28 14 [facility] [id number] [facility] (14[facility]) 0/0 10.00 [place] 03/16/2020 1 03/08/2020 Vimpat 150 Mg Tablet 60 30 Jalyn Woj [id number] [facility] (14[facility] 0/5 1.20 [place] 03/15/2020 1 02/15/2020 Lorazepam 2 Mg Tablet 30 30 [facility]yn Woj [id number] [facility] ([facility] 1/5 2.00 [place] 02/16/2020 1 02/15/2020 Vimpat 150 Mg Tablet 30 30 [facility]alyn Woj [id number] [facility] ([facility] 0/5 0.60 [place] 02/15/2020 1 02/15/2020 Vimpat 200 Mg Tablet 30 30 Jalyn Woj [id number] [facility] ([facility] 0/5 0.80 [place] 02/15/2020 1 02/15/2020 Lorazepam 2 Mg Tablet 30 30 [facility] [id number] [facility] ([facility] 0/5 2.00 [place] 02/11/2020 1 02/03/2020 Hydrocodone-Acetamin 5-325 Mg 28 14 [facility] [id number] [facility] ([facility] 0/0 10.00 [place] 01/20/2020 1 01/20/2020 Codeine-Guaifen 10-100 Mg/5 Ml 150 10 [facility] [id number] [facility] (14[facility] 0/0 4.50 [place] Private [place] 01/20/2020 1 01/20/2020 Vimpat 150 Mg Tablet 60 30 [facility]alyn Woj [id number] [facility] ([facility] 0/0 1.20 [place] 01/14/2020 1 01/10/2020 Lorazepam 2 Mg Tablet 30 30 Jalyn Woj [id number] [facility] ([facility] 0/0 2.00 [place] 12/17/2019 1 12/17/2019 Diazepam 2 Mg Tablet 10 5 Ch Mil [id number] [facility] (14[facility] 0/0 0.40 [place] 12/17/2019 1 11/15/2019 Lorazepam 2 Mg Tablet 30 30 Jalyn Woj [id number] [facility] ([facility] 1/1 2.00 [place] 12/14/2019 1 12/14/2019 Hydrocodone-Acetamin 5-325 Mg 28 14 Ch Mil [id number] [facility] (14[facility] 0/0 10.00 [place] 12/08/2019 1 12/08/2019 Vimpat 150 Mg Tablet 60 30 Jalyn Woj [id number] [facility] ([facility] 0/0 1.20 [place] 11/19/2019 1 11/18/2019 Hydrocodone-Acetamin 5-325 Mg 28 14 [place] [id number] [facility] (14[facility] 0/0 10.00 [place] 11/15/2019 1 11/15/2019 Diazepam 2 Mg Tablet 10 5 [place] [id number] [facility] (14[facility]) 0/0 0.40 [place] 11/15/2019 1 11/15/2019 Lorazepam 2 Mg Tablet 30 30 Jalyn Woj [id number] [facility] ([facility]) 0/1 2.00 [place] 10/27/2019 1 10/27/2019 Hydrocodone-Acetamin 5-325 Mg 28 14 [place] [id number] [facility] (14[facility] 0/0 10.00 [place] 10/18/2019 1 10/18/2019 Vimpat 150 Mg Tablet 60 30 Jalyn Woj [id number] [facility] ([facility] 0/0 1.20 [place] 10/09/2019 1 04/19/2019 Lorazepam 2 Mg Tablet 30 30 Jalyn Woj [id number] [facility] ([facility]) 5/5 2.00 [place] 09/18/2019 1 09/09/2019 Diazepam 2 Mg Tablet 10 5 [place] [id number] [facility] (14[facility]) 0/0 0.40 [place] 09/18/2019 1 09/09/2019 Oxycodone Hcl 5 Mg Tablet 20 20 [place] [id number] [facility] (14[facility] 0/0 7.50 [place] 09/11/2019 1 03/22/2019 Vimpat 150 Mg Tablet 60 30 Wi Krystian [id number] [facility] (14[facility]) 4/5 1.20 [place] 09/10/2019 1 04/19/2019 Lorazepam 2 Mg Tablet 30 30 Jalyn Woj [id number] [facility] ([facility]) 4/5 2.00 [place] 08/14/2019 1 03/22/2019 Vimpat 150 Mg Tablet 60 30 Wi Krystian [id number] [facility] (14[facility]) 3/5 1.20 [place] 08/14/2019 1 04/19/2019 Lorazepam 2 Mg Tablet 30 30 Jalyn Woj [id number] [facility] ([facility]) 3/5 2.00 [place] 08/04/2019 1 08/03/2019 Oxycodone Hcl 5 Mg Tablet 20 20 Mil [id number] [facility] (1450) 0/0 7.50 [place] 07/07/2019 1 07/07/2019 Diazepam 2 Mg Tablet 10 5 Mil [id number] [facility] (14[facility]) 0/0 0.40 [place] 07/07/2019 1 04/19/2019 Lorazepam 2 Mg Tablet 30 30 Jalyn Woj [id number] [facility] (14[facility] 2/5 2.00 [place] 07/01/2019 1 07/01/2019 Oxycodone Hcl 5 Mg Tablet 30 10 [place] [id number] [facility] (14[facility]) 0/0 22.50 [place] 06/21/2019 1 03/22/2019 Vimpat 150 Mg Tablet 60 30 Wi Krystian [id number] [facility] ([facility] 2/5 1.20 [place] 06/04/2019 1 04/21/2019 Lyrica 25 Mg Capsule 21 14 Di Lav [id number] [facility] (14[facility] 0/0 0.25 [place] 05/27/2019 1 04/19/2019 Lorazepam 2 Mg Tablet 30 30 Jalyn Woj [id number] [facility] ([facility] 1/5 2.00 [place] 05/21/2019 1 05/21/2019 Oxycodone Hcl 5 Mg Tablet 20 20 Di Lav [id number] [facility] (14[facility] 0/0 7.50 [place] 05/18/2019 1 03/22/2019 Vimpat 150 Mg Tablet 60 30 Wi Krystian [id number] [facility] (14[facility] 1/5 1.20 [place] 05/12/2019 1 05/12/2019 Lyrica 75 Mg Capsule 30 30 Ti Bur [id number] [facility] (14[facility] 0/0 0.50 [place] 04/23/2019 1 04/19/2019 Lorazepam 2 Mg Tablet 30 30 Jalyn Woj [id number] [facility] ([facility] 0/5 2.00 [place] 04/19/2019 1 04/13/2019 Diazepam 2 Mg Tablet 10 5 Do Severiano [id number] [facility] (14[facility] 0/0 0.40 [place] 04/14/2019 1 04/13/2019 Oxycodone Hcl 5 Mg Tablet 20 20 Di Lav [id number] [facility] (14[facility] 0/0 7.50 [place] 04/13/2019 1 04/13/2019 Diazepam 2 Mg Tablet 10 5 Do Severiano [id number] [facility] (14[facility]) 0/0 0.40 [place] 03/26/2019 1 03/26/2019 Lyrica 75 Mg Capsule 30 30 Ti Bur [id number] [facility] (14[facility]) 0/0 0.50 [place] 03/26/2019 1 03/26/2019 Lorazepam 2 Mg Tablet 30 30 Ba Inc [id number] [place] (9210) 0/0 2.00 [place] 03/24/2019 1 03/22/2019 Vimpat 150 Mg Tablet 60 30 Wi Krystian [id number] [facility] (14[facility]) 0/5 1.20 [place] 02/25/2019 1 02/25/2019 Lyrica 75 Mg Capsule 30 30 As Hof [id number] [facility] (1450) 0/0 0.50 [place] 02/16/2019 1 02/16/2019 Diazepam 2 Mg Tablet 10 5 Ch Mil [id number] [facility] (1450) 0/0 0.40 [place] 02/08/2019 1 02/08/2019 Lyrica 50 Mg Capsule 30 30 Ch Mil [id number] [facility] (1450) 0/0 0.34 [place] 02/06/2019 1 02/03/2019 Oxycodone Hcl 5 Mg Tablet 10 3 Se [place] [id number] [facility] (1450) 0/0 25.00 [place] 02/05/2019 1 09/22/2018 Vimpat 150 Mg Tablet 60 30 Jalyn Woj [id number] [facility] (1450) 3/3 1.20 [place] 01/27/2019 1 01/26/2019 Oxycodone Hcl 5 Mg Tablet 12 3 Je Bar [id number] [facility] (14[facility]) 0/0 30.00 [place] 01/17/2019 1 01/17/2019 Oxycodone Hcl 5 Mg Tablet 20 20 Ke Arm [id number] [facility] (3429) 0/0 7.50 [place] 01/08/2019 1 12/28/2018 Vimpat 10 Mg/ml Solution 900 30 Jalyn Woj [id number] [facility] (1450) 0/5 1.20 [place] 12/28/2018 1 12/28/2018 Lyrica 50 Mg Capsule 30 30 Ch Mil [id number] [facility] (1450) 0/0 0.34 [place] 12/18/2018 1 12/17/2018 Diazepam 5 Mg/ml Oral Conc 120 30 Do Severiano [id number] [facility] (1450) 0/0 2.00 [place] 11/27/2018 1 09/22/2018 Vimpat 150 Mg Tablet 60 30 Jalyn Woj [id number] [facility] (1450) 2/3 1.20 [place] 11/27/2018 1 11/27/2018 Diazepam 2 Mg Tablet 10 5 Ch Mil [id number] [facility] (1450) 0/0 0.40 [place] 11/12/2018 1 11/09/2018 Lyrica 50 Mg Capsule 30 30 Do Severiano [id number] [facility] (1450) 0/0 0.34 [place] 11/09/2018 1 11/09/2018 Diazepam 2 Mg Tablet 20 10 Do Severiano [id number] [facility] (14[facility]) 0/0 0.40 [place] 11/03/2018 1 11/03/2018 Oxycodone Hcl 5 Mg Tablet 20 20 Do Severiano [id number] [facility] (14[facility]) 0/0 7.50 [place] 10/30/2018 1 2018 Lorazepam 1 Mg Tablet 12 4 As Hof [id number] [facility] (1450) 0/0 3.00 [place] 10/28/2018 1 09/22/2018 Vimpat 150 Mg Tablet 60 30 Jalyn Woj [id number] [facility] (1450) 1/3 1.20 [place] 10/23/2018 1 10/23/2018 Hydrocodone-Acetamin 5-325 Mg 12 3 Sc Mil [id number] [facility] (1450) 0/0 20.00 [place] *Per CDC guidance, the MME conversion factors prescribed or provided as part of the medication-assisted treatment for opioid use disorder should not be used to benchmark against dosage thresholds meant for opioids prescribed for pain. Buprenorphine products have no agreed upon morphine equivalency,and as partial opioid agonists, are not expected to be associated with overdose risk in the same dose-dependent manner as doses for full agonist opioids. MME = morphine milligram equivalents. LME = Lorazepam milligram equivalents. mg = dose in milligrams. Providers Total Providers: 16 Name Address [facility] Zip[employer] Phone Damon Thomas MD [address] [facility] [address] - [facility] [address] [facility] [phone] Savannah Castrejon MD [address] [facility] [address] - Cristobal Bunch Mares [address] [facility] [phone] Rinku Romeo MD [address] [facility] [address] - Sam Tinsley MD [address] [place] [address] - Jaiden Bates [address] [facility] [address] - Geoffrey Camarillo V, Pa V [address] [facility] [address] - Milagros Cook Pa-C [address] [facility] [address] - Jaiden Hammond-C [address] [facility] [address] - Mary Irene [address] [facility] [address] - Sandra Benito MD [address] [facility] [address] - Ari Crowley MD [address] [facility] [address] - Kristy Castrejon MD [address] [facility] [address] - Alexandria Peñaloza MD [address] [facility] [address] - Jaiden Celestin-C Division Of Neurology [facility] [address] - Pharmacies Total Pharmacies: 3 Name Address [facility] State Zipcode Phone [facility] [phone] [facility] [phone] [facility] PharmacyMinubo. [phone] [facility] [phone] [facility] We[employer]. [phone] [facility] [phone] documented in this encounter Plan of Treatment Not on file documented as of this encounter Visit Diagnoses Not on filedocumented in this encounter Care Teams Policy Services Representative Relationship Specialty Start Date End Date Kristy Castrejon MD PCP - General Internal Medicine 07/25/20 1 Alexandria Peñaloza MD PCP - General Internal Medicine 11/21/20 05/13/22 Tom White [address] [place] [address] PCP - General Internal Medicine 05/14/22 10/06/22 Marisela Goodrich MD [address] [place] [address] PCP - General Internal Medicine 10/07/22 documented as of this encounter
--- OUTSIDE RECORDS SUMMARY | 2024-12-15 13:47 | XMS_ITS | Encounter Summary ---
Author Organization [facility] Address [address] [place] [address] Care Team Providers Care Registration Clerk Name Role Phone Marisela Goodrich MD Primary Care Provider + Encounter Details Date Type Department Care Team Description 01/28/2023 Pt. Non Urgent Medical Question Adult Medicine [address] [address] Tom White [address] [place] [address] Social History Tobacco Use Types Packs/Day Years [...] on filedocumented in this encounter Care Teams Registration Clerk Relationship Specialty Start Date End Date Marisela Goodrich MD [address] [place] [address] PCP - General Internal Medicine 10/07/22 documented as of this encounter
--- OUTSIDE RECORDS SUMMARY | 2024-12-15 13:47 | XMS_ITS | Encounter Summary ---
Author Organization [facility] Address [address] [place] [address] Care Team Providers Care Leadership Coach Name Role Phone Marisela Goodrich MD Primary Care Provider + Encounter Details Date Type Department Care Team Description 01/07/2023 Hospital Medical Records [address] [place] [address] Social History Tobacco Use Types Packs/Day Years [...] on filedocumented in this encounter Care Teams Leadership Coach Relationship Specialty Start Date End Date Marisela Goodrich MD [address] [place] [address] PCP - General Internal Medicine 10/07/22 documented as of this encounter
--- OUTSIDE RECORDS SUMMARY | 2024-12-15 13:47 | XMS_ITS | Encounter Summary ---
Author Organization [facility] Address [address] [place] [address] Care Team Providers Care Actuarial Mathematician Name Role Phone Alexandria Peñaloza MD Primary Care Provider Unava Kristy Rush MD Primary Care Provider Un available Alexandria Peñaloza MD Primary Care Provider Soniava Tom Booker Primary Care Provider [phone] Marisela Goodrich MD Primary Care Provider + Encounter Details Date Type Department Care Team Description 12/25/2017 It Program Engagement Director Report Medical Records [address] [place] [id number] Abstract, Provider Social History Tobacco Use Types [...] on filedocumented in this encounter Care Teams Actuarial Mathematician Relationship Specialty Start Date End Date Alexandria Peñaloza MD PCP - General 03/26/10 07/24/20 Kristy Castrejon MD PCP - General Internal Medicine 07/25/20 1 Alexandria Peñaloza MD PCP - General Internal Medicine 11/21/20 05/13/22 Tom White [address] [place] [address] PCP - General Internal Medicine 05/14/22 10/06/22 Marisela Goodrich MD [address] [place] [address] PCP - General Internal Medicine 10/07/22 documented as of this encounter
--- OUTSIDE RECORDS SUMMARY | 2024-12-15 13:47 | XMS_ITS | Encounter Summary ---
Author Organization [facility] Address [address] [place] [address] Care Team Providers Care Electronics Processor Name Role Phone Marisela Goodrich MD Primary Care Provider + Encounter Details Date Type Department Care Team Description 03/27/2023 Refill Medicine/Pediatrics - [place] [address] [place] [phone] Marisela Goodrich MD [address] [place] [address] [phone] Social History Tobacco Use Types Packs/Day Years [...] on filedocumented in this encounter Care Teams Electronics Processor Relationship Specialty Start Date End Date Marisela Goodrich MD [address] [place] [address] PCP - General Internal Medicine 10/07/22 documented as of this encounter
--- OUTSIDE RECORDS SUMMARY | 2024-12-15 13:47 | XMS_ITS | Encounter Summary ---
Author Organization [facility] Address [address] [place] [address] Care Team Providers Care Pickle Cutter Name Role Phone Alexandria Peñaloza MD Primary Care Provider Unava Kristy Rush MD Primary Care Provider Un available Alexandria Peñaloza MD Primary Care Provider Unava ilTom Toscano Primary Care Provider [phone] Marisela Goodrich MD Primary Care Provider + Encounter Details Date Type Department Care Team Description 04/18/2015 Hospital Medical Records [address] [place] [id number] Peter Matias MD Social History Tobacco Use [...] on filedocumented in this encounter Care Teams Pickle Cutter Relationship Specialty Start Date End Date Alexandria Peñaloza MD PCP - General 03/26/10 07/24/20 Kristy Castrejon MD PCP - General Internal Medicine 07/25/20 1 Alexandria Peñaloza MD PCP - General Internal Medicine 11/21/20 05/13/22 Tom White [address] [place] [address] PCP - General Internal Medicine 05/14/22 10/06/22 Marisela Goodrich MD [address] [place] [address] PCP - General Internal Medicine 10/07/22 documented as of this encounter
--- OUTSIDE RECORDS SUMMARY | 2024-12-15 13:47 | XMS_ITS | Encounter Summary ---
Author Organization [facility] Address [address] [place] [address] Care Team Providers Care Instructional Support Services Director Name Role Phone Alexandria Peñaloza MD Primary Care Provider Unava Kristy Rush MD Primary Care Provider Un available Alexandria Peñaloza MD Primary Care Provider Unava Tom Booker Primary Care Provider [phone] Marisela Goodrich MD Primary Care Provider + Reason for Referral * EXTERNAL (Routine) - Authorized/Booked Specialty Diagnoses / Procedures Referred By Caitie frye Referred To Contact Mental Health Procedures REFERRAL TO BEHAVIORAL HEALTH Alexandria Peñaloza MD [address] [place] [address] Default, Provider Referral ID Status Reason Start Date Expiration Date V isits Requested Visits Authorized SEE NOTE Authorized/B ooked 11/21/2017 02/22/2018 1 1 Reason for Visit * Reason Onset Date Comments Veneer Sorter Feedback 11/18/2017 Sandy Irwin hton Encounter Details Date Type Department Care Team Description 11/18/2017 Telephone Medicine/Pediatrics - [address] [phone] Alexandria Peñaloza MD Veneer Sorter Feedback (Sandy Santana) Social History Tobacco Use Types Packs/Day Years [...] encounter Miscellaneous Notes * Telephone Encounter - Naida Min - 11/18/2017 8:27 AM EST My chart referral request to behavioral health Please review this patients new referral request. The referral has been pended. Please complete thefollowing: If approved> sign order If denied>please give instructions and route to your practice nursing pool. Practice nurse should inform referrals and the patient if denied. Thank you, Naida Referrals Coordinator [facility] Referrals Department documented in this encounter Plan of Treatment Not on file documented as of this encounter Visit Diagnoses Not on filedocumented in this encounter Care Teams Instructional Support Services Director Relationship Specialty Start Date End Date Alexandria Peñaloza MD PCP - General 03/26/10 07/24/20 Kristy Castrejon MD PCP - General Internal Medicine 07/25/20 1 Alexandria Peñaloza MD PCP - General Internal Medicine 11/21/20 05/13/22 Tom White [address] [place] [address] PCP - General Internal Medicine 05/14/22 10/06/22 Marisela Goodrich MD [address] [place] [address] PCP - General Internal Medicine 10/07/22 documented as of this encounter
[2024-12-15 14:37] LABS: MANUAL DIFF FLAG NO
[2024-12-15 14:43] LABS: Basophils Absolute Auto 0.1 X10*3/uL (0.0-0.2); Basophils Percent Auto 0.9 % (0-2); Eosinophils Absolute Auto 0.3 X10*3/uL (0.0-0.4); Eosinophils Percent Auto 2.8 % (0-4); Hemoglobin 12.3 g/dl (12.0-16.0); Imm Gran Abs Auto 0.17 X10*3/uL (0.00-0.03); Imm Gran Pct Auto 1.8 % (0.0-0.4); Lymphocytes Absolute Auto 2.6 X10*3/uL (1.2-4.9); Lymphocytes Percent Auto 28.2 % (20-40); Mean Corpuscular HGB Conc 33.2 g/dl (31.0-35.0); Mean Corpuscular Hemoglobin 28.3 pg (27.0-33.0); Mean Corpuscular Volume 85.1 fL (80.0-98.0); Monocytes Absolute Auto 0.5 X10*3/uL (0.1-1.2); Monocytes Percent Auto 5.5 % (2-11); Neutrophils Absolute Auto 5.6 x10*3/uL (2.0-8.3); Neutrophils Percent Auto 60.8 % (45-73); Platelet Count 337 X10*3/uL (160-400); Red Blood Count 4.35 X10*6/uL (4.20-5.50); Red Cell Distribution Width 13.4 % (11.0-16.0); White Blood Count 9.2 X10*3/uL (4.8-10.8)
[2024-12-16 19:38] LABS: Immunoglobulin E 28 kU/L (<OR=114)
== END 2024-12-15 11:24 | disposition home or self-care (01) ==
LOC: HO.WFDLDS 11:23
PROVIDERS: Visit Provider Nurse Practitioner Family
DX: Z91.09 Other allergy status, other than to drugs and biological substances (principal)
CPT/HCPCS: 36415; 82785; 85025

== ENCOUNTER → 2025-01-13 10:38 | Outpatient (REF) | payer OTHER, SELFPAY ==
--- NOTE | 2025-01-13 10:41 | CA_ITS ---
Transthoracic Echocardiogram Patient (Last, First, Middle): Sandy Santana, Gender: Female Date of : 1985 Age: 39 Procedure Date: 01/13/2025 Procedure Type: Transthoracic Echocardiogram Location: OP Height: 172.72 cm Weight: 161. kg BSA: 2.61 m2 Heart Rate: bpm BP: 146 / 68 mmHg Heat Treat Operator: TO Referring MD: Rosalia Gan [facility] Symptoms: R01.1 - Cardiac murmur, unspecified Study Quality: Fair/declined contrast ECG Rhythm: Sinus Conclusions: - The left ventricular systolic function is normal. The visually estimated ejection fraction is between 65-70%. - No obvious valvular pathology seen on this study. Findings Procedure Information The patient declines contrast. Left Ventricle Normal left ventricular cavity size. The left ventricular systolic function is normal. The visually estimated ejection fraction is between 65-70%. There is no evidence of regional wall motion abnormalities. Diastolic function is normal for age. There is mild septal asymmetric hypertrophy. Right Ventricle Mildly increased right ventricular cavity size. There is normal right ventricular systolic function. Atria Both atria are normal in size. Aortic Valve There is a normal trileaflet aortic valve. There is no aortic valve stenosis. There is no aortic valve regurgitation. Mitral Valve The mitral valve appears normal. There is no mitral valve regurgitation. There is no mitral valve stenosis. Pulmonic Valve The pulmonic valve is likely normal. Tricuspid Valve There is trace tricuspid valve regurgitation. There is no evidence of pulmonary hypertension. Great Vessels The asc aorta is normal in size. Venous The inferior vena cava was not well visualized. Pericardium/Pleural There is no evidence of pericardial effusion. Prior Study Comparison No significant change compared to prior study dated: 08/19/2016. Recommendations, Care & Conclusions No obvious valvular pathology seen on this study. Measurements 2D Linear Measurements IVSd: 1.18 0.6-0.9/0.6-1.0 cm LVIDd: 5.00 3.9-5.3/4.2-5.9 cm LVIDd Index: 1.92 2.4-3.2/2.2-3.1 cm/m2 LVIDs: 3.51 2.0-3.6 cm LVPWd: 0.86 0.7-1.1 cm LA Diam: 3.60 2.7-3.8/3.0-4.0 cm LAIDs Index: 1.38 1.5-2.3 cm/m2 LV Mass: 233.33 67-162/88-224 g LV Mass Index: 89.40 43-95/49-115 g/m2 LVOT Diam: 2.00 3.0+(-)1.3 cm Mitral Valve MV Pk E: 0.52 MV PK A: 0.36 MV Decel Time: 203.00 E/A: 1.50 E'Lateral: 10.10 E'Medial: 5.55 E/E' Med: 9.40 E/E' Lat: 5.20 PHT: 59.00 MVA PHT: 3.73 Decel Canadian: 2.58 Aortic Valve AoV Pk Fransico: 1.99 AoV Mn Fransico: 1.28 AoV VTI: 0.36 AoV Pk Grad: 16.00 Aov Mn Grad: 8.00 ALLAN Cont.VTI: 1.79 LVOT LVOT Pk Fransico: 1.06 LVOT Mn Fransico: 0.65 LVOT VTI: 0.21 LVOT Pk Grad: 4.00 LVOT Mn Grad: 2.00 LVOT Diam: 2.00 LVOT Area: 3.14 Diastolic Function MV Pk E: 0.52 MV Pk A: 0.36 E/A: 1.50 E'Medial: 5.55 E/E' Med: 9.40 E' Laterial: 10.10 E/E' Lat: 5.20 Right Ventricle TAPSE (mm): 25.90 TVS' Fransico: 12.00 Great Vessels Aorta Sinus of Valsalva: 3.14 2.0-3.[address] Ridge: 2.57 1.7-3.4 cm Ao Asc: 3.20 2.1-3.4 cm Updated in Other Vendor System with Status of Final Jose Marte MD electronically signed on 01/13/2025 2:50:34 PM with status of Final
--- OUTSIDE RECORDS SUMMARY | 2025-01-13 12:34 | XMS_ITS | Encounter Summary ---
Author Organization [facility] Address [address] [place] [address] Care Team Providers Care Cooking Casing And Drying Supervisor Name Role Phone Alexandria Peñaloza MD Primary Care Provider Unava Kristy Rush MD Primary Care Provider Un available Alexandria Peñaloza MD Primary Care Provider Unava Tom Booker Primary Care Provider [phone] Marisela Goodrich MD Primary Care Provider + Encounter Details Date Type Department Care Team Description 05/23/2016 Hospital Medical Records [address] [place] [id number] India Yates MD Social History Tobacco Use [...] on filedocumented in this encounter Care Teams Cooking Casing And Drying Supervisor Relationship Specialty Start Date End Date Alexandria Peñaloza MD PCP - General 03/26/10 07/24/20 Kristy Castrejon MD PCP - General Internal Medicine 07/25/20 1 Alexandria Peñaloza MD PCP - General Internal Medicine 11/21/20 05/13/22 Tom White [address] [place] [address] PCP - General Internal Medicine 05/14/22 10/06/22 Marisela Goodrich MD [address] [place] [address] PCP - General Internal Medicine 10/07/22 documented as of this encounter
--- OUTSIDE RECORDS SUMMARY | 2025-01-13 12:34 | XMS_ITS | Encounter Summary ---
Author Organization [facility] Address [address] [place] [address] Care Team Providers Care Computer Equipment Installer Name Role Phone Alexandria Peñaloza MD Primary Care Provider Unava Kristy Rush MD Primary Care Provider Un available Alexandria Peñaloza MD Primary Care Provider Unava Tom Booker Primary Care Provider [phone] Marisela Goodrich MD Primary Care Provider + Encounter Details Date Type Department Care Team Description 12/17/2018 Orders Only Medical Records [address] [place] [address] Kristy Castrejon MD Social History Tobacco Use [...] filedocumented in this encounter Care Teams Computer Equipment Installer Relationship Specialty Start Date End Date Alexandria Peñaloza MD PCP - General 03/26/10 07/24/20 Kristy Castrejon MD PCP - General Internal Medicine 07/25/20 1 Alexandria Peñaloza MD PCP - General Internal Medicine 11/21/20 05/13/22 Tom White [address] [place], [place] [id number] PCP - General Internal Medicine 05/14/22 10/06/22 Marisela Goodrich MD [address] [place] [address] PCP - General Internal Medicine 10/07/22 documented as of this encounter
--- OUTSIDE RECORDS SUMMARY | 2025-01-13 12:34 | XMS_ITS | Clinical Summary ---
Author Organization [facility] it Address [address] [place] [address] Care Team Providers Care Natural Resources Manager Name Role Phone Marisela Goodrich MD Primary Care Pr ovider Allergies Active Allergy Reactions Criticality Noted Date Comments Gabapentin Weakness 11/30/2010 Ketorolac 09/18/2020 Other Reaction(s): Hives/Urticaria Latex 04/24/2018 Other Reaction(s): Rash/Dermatitis Midazolam 02/19/2012 Stop breathing Medications cholecalciferol (VITAMIN D-3) 50 mcg (2,000 unit) capsule Take 1 capsule (2,000 Units total) by mouth 1 (one) time each day. 3 Active dulaglutide (Trulicity) 0.75 mg/0.5 mL pen injector injection Inject 0.75 mg into the skin once a week. 3 Active pregabalin (LYRICA) 100 mg capsule Take 2 Capsules by mouth 2 times daily. 3 Active fenofibrate (TRICOR) 145 mg tablet Take 1 tablet (145 mg total) by mouth 1 (one) time each day. 3 Active ibuprofen (ADVIL,MOTRIN) 600 mg tablet Take 1 Tablet by mouth every 8 hours as needed for Pain. 3 Active cyclobenzaprine (FLEXERIL) 10 mg tablet Take 1 Tablet by mouth 3 times daily as needed for Muscle spasms. Medication may cause drowsiness, do not drive/operate machinery while taking 3 Active insulin glargine (Lantus Solostar U-100 Insulin) 100 unit/mL (3 mL) injection pen Inject 34 Units into the skin at bedtime. 3 Active albuterol HFA (PROAIR HFA ; PROVENTIL HFA ; VENTOLIN HFA) 90 mcg/actuation inhaler Inhale 2 Puffs into the lungs every 4 hours as needed for Cough, Wheezing or Shortness of Breath. 3 Active lisinopril (PRINIVIL,ZESTR IL) 40 mg tablet Take 1 tablet (40 mg total) by mouth 1 (one) time each day. 3 Active insulin syringe-needle U-100 0.5 mL 31 gauge x 5/16 syringe Insulin Pen Needle (B-D ULTRAFINE III SHORT PEN) 31G X 8 MM Misc Use to inject insulin once nightly at bedtime 3 Active risperiDONE (RisperDAL) 2 mg tablet Take 1 tablet (2 mg total) by mouth 1 (one) time each day. 3 Active busPIRone (BUSPAR) 7.5 mg tablet Take 1 tablet (7.5 mg total) by mouth 2 (two) times a day. [address] (ENTOCORT EC) 3 mg 24 hr capsule Take by mouth. 3 Active blood-glucose meter kit glucose monitoring kit (FREESTYLE) monitoring kit Use to check sugar daily 3 Active FREESTYLE LANCETS MISC Use to check bood sugar bid as needed 3 Active ergocalciferol (VITAMIN D-2) 1,250 mcg (50,000 unit) capsule Take 1 Capsule by mouth once a week. 3 Active cyanocobalamin (VITAMIN B-12) 1,000 mcg tablet Take 1 tablet (1,000 mcg total) by mouth 1 (one) time each day. 3 Active cyanocobalamin (VITAMIN B-12) 1,000 mcg/mL injection Inject 1 mL into the muscle every 30 days. 2 Active melatonin 3 mg tablet TAKE 1 OR 2 TABLETS BY MOUTH DAILY AT BEDTIME 2 Active escitalopram (LEXAPRO) 10 mg tablet Take 1 tablet (10 mg total) by mouth 1 (one) time each day. Active syringe with needle, safety (BD Safety-Alvaro Detachable Needl) 3 mL 23 gauge x 1 syringe Inject 1 Syringe into the skin daily. 2 Active promethazine (PHENERGAN) 6.25 mg/5 mL syrup TAKE 10-20 ML BY MOUTH EVERY 6 HOURS NEEDED (NAUSEA). 1 Active naratriptan (AMERGE) 1 mg tablet Take 1 Tab by mouth daily as needed (migraine). May repeat in 4 hrs 0 Active lacosamide (VIMPAT) 150 mg tablet tablet Take 1 Tab by mouth every morning. 0 Active blood glucose control high,low (FreeStyle Control) solution Use to check machine weekly 1 Active blood sugar diagnostic (FreeStyle Lite Strips) test strip Use to check blood sugar bid as needed 3 Active Active Problems Problem Noted Date Diagnosed Date Anxiety 11/12/2024 Fibromyalgia 11/12/2024 Morbid obesity with BMI of 40.0-44.9, adult 10/18 Bipolar disorder 02/26/2023 Hyperlipidemia 02/26/2023 Poorly controlled diabetes mellitus 09/24/2022 Nocturnal hypoxemia 04/08/2022 Overview (11/12/2024): [facility] diagnostic polysomnogram 03/14/2022 weight 320; BMI 49. AHI 4. Average oxygen saturation 90% with oxygen lashaun 80%. Nocturnal hypoxemia without sleep apnea diagnosed. PLMD also noted. PLMD (periodic limb movement disorder) 2 Mild episode of recurrent major depressive disor [...] Surgery Date Site/Laterality Comments SECTION 2007 PROCEDURE: ND DELIVERY ONLY; COMMENT: x 1 WISDOM TOOTH EXTRACTION age 14 PROCEDURE: HISTORICAL WISDOM TEETH EXTRACTION OTHER SURGICAL HISTORY age 5 PROCEDURE: ND STRABISMUS RECESSION/RESCJ 1 HRZNTL MUSC TUBAL LIGATION [...] Joshi COLONOSCOPY 06/2018 PROCEDURE: HISTORICAL COLONOSCOPY; COMMENT: [facility]; visually normal, biopsies negative for microscopic colitis. COLONOSCOPY 11/2017 PROCEDURE: HISTORICAL COLONOSCOPY; COMMENT: [facility]; random biopsies negative for microscopic colitis, one diminutive tubular adenoma in the sigmoid colon. ROBOTIC ASSISTED HYSTERECTOMY 12/20/2019 PROCEDURE: HISTORICAL ROBOTIC HYSTERECTOMY WITH OR WITHOUT BSO; COMMENT: [facility] total hysterectomy with bilateral salpingectomy UPPER GASTROINTESTINAL ENDOSCOPY 02/25/2012 PROCEDURE: ND UPPER GI ENDOSCOPY PERFORMED; COMMENT: Normal on PPI rx. UPPER GASTROINTESTINAL ENDOSCOPY 12/15/2016 PROCEDURE: ND [facility]PPER GI [facility]FOR[facility] her[facility], biopsy of a normal-appearing EG junction was negative for Vasquez's esophagus. Medical History Medical History Date Comments Joint pain DX:Joint pain Asthma DX:Asthma; COMME NT: exercise induced; URI Depression DX:Depression; C OMMENT: as a teenager Anemia DX:Anemia Seizure (CMS/HCC) age 10 DX:Seizure (HC C); COMMENT: nocturnal complex partial; [facility]. H[facility] IBS (irritable bowel syndrome) D X:IBS [...] lump, ovarian cyst, heart problem, thyroid dz, [place] age unknown Mother Alive ovarian cyst Paternal Grandfather bi suzie r Paternal Grandmother Alive thyroid ca, arthritis, RA Son Nasir Alive Nasir; 2007; a utistic Social History Tobacco Use Types Packs/Day Years Used Date Smoking Tobacco: Every Day Cigarettes Last attempted to quit: 01/14/2019 Smokeless Tobacco: Never Alcohol Use Standard Drinks/Week Comments No 0 (1 standard drink = 0.6 oz pur e alcohol) Comments Unknown Sex and Gender Information Value Date Recorded Sex Assigned at Not on file Legal Sex Female 10:21 PM EST Gender Identity Not on file Sexual Orientation [...] patient's age to complete this topic Meningococcal B Vacine Aged Out No lo nger eligible based on patient's age to complete this topic RSV Immunization Patients Under 20 months Aged Out No longer eligible based on patient's age to complete this topic Varicella Vaccines Aged Out No longer eligible based on patient's age to complete this topic Procedures Procedure Name Priority Date/Time Associated Diagnosis Comments ANNUAL BMP BLOOD TEST Routine 02/26/2023 URINE ALBUMIN CREATININE RATIO Routine 01/27/2023 HEMOGLOBIN A1C Routine 01/27/2023 LIPID PANEL Routine 01/27/2023 COLONOSCOPY Routine 01/17/2021 DX MAMMO INCL CAD BI Routine 10/14/2017 10:00 AM EST Unspecified lump in unspecified breast from Last 3 Months or Most Recently Relevant to Health Maintenance Results * Annual BMP Blood Test (02/26/2023) Pathologist [facility] Annual BMP Blood Test abstracted Result [facility] HEALTH MAINTENANCE Final Result * Urine Albumin Creatinine Ratio (01/27/2023) Pathologist [facility] Urine Albumin Creatinine Ratio abstracted Result [facility] HEALTH MAINTENANCE Final Result * (ABNORMAL) Hemoglobin A1c (01/27/2023) Pathologist [facility] Hemoglobin A1C 8.4(A) <=6.5 % Blood Venous blood specimen / Unknown Result [facility] Provider LAB BLOOD ORDERABLES Mini l Result * (ABNORMAL) Lipid panel (01/27/2023) [facility] LDL/HDL Ratio 5(A) 0 - 4 Triglycerides 509(A) 0 - 150 mg/dL Cholesterol 173 0 - 200 mg/dL HDL 36(A) >=40 mg/dL Blood Venous blood specimen / Unknown Result [facility] Provider LAB BLOOD ORDERABLES Mini l Result * Colonoscopy (01/17/2021) Pathologist [facility] Colonoscopy no interpretation , abstracted Anatomical Region Laterality Modality Other [facility] Provider HEALTH MAINTENANCE Final Result * DX MAMMO INCL CAD BI (10/14/2017 [...] negative. Marli DEL CASTILLO IMG BI PROCEDURES Final Result from Last 3 Months or Most Recently Relevant to Health Maintenance Care Teams Natural Resources Manager Relationship Specialty Start Date End Date Marisela Goodrich MD PCP - General 10/07/22
--- OUTSIDE RECORDS SUMMARY | 2025-01-13 12:34 | XMS_ITS | Encounter Summary ---
Author Organization [facility] Address [address] [place] [address] Care Team Providers Care Sponge Diver Name Role Phone Alexandria Peñaloza MD Primary Care Provider Unava Kristy Rush MD Primary Care Provider Un available Alexandria Peñaloza MD Primary Care Provider Unava Tom Booker Primary Care Provider [phone] Marisela Goodrich MD Primary Care Provider + Encounter Details Date Type Department Care Team Description 09/01/2015 Orders Only Medicine/Pediatrics - [address] [id number] Milagros Ríos FNP Fibromyalgia (Primary Dx); Epilepsy without status epilepticus, not intractable; PCOS (polycystic ovarian syndrome); Morbid obesity; Chronic diarrhea Social History Tobacco Use Types Packs/Day Years [...] as of this encounter Results * (ABNORMAL) RBC SEDIMENTATION RATE, NON-AUTO (09/29/2015 4:24 PM EST) ESR 30(H) 0 - 20 mm/hr 09/29/2015 6:47 PM EST [facility] 09/29/2015 4:24 PM EST 09/29/2015 4:24 PM EST Milagros GUZMAN LAB Performing Organization Address [facility] Number [address] * (ABNORMAL) 25 HYDROXY INCLUDES FRACTIONS IF PERFORMED (09/29/2015 4:24 PM EST) Pathologist [facility] 25-HYDROXY VITAMIN D TOTAL 21(L) 30 - 80 ng/ml 10/02/2015 1:20 PM EST [facility] Comment: Vitamin D Reference Ranges ??Deficiency: ? <20 ng/mL ??Insufficiency: ?20-29 ng/mL ??Optimal: ?30-80 ng/mL ??High: ? >80 ng/mL 09/29/2015 4:24 PM EST 09/29/2015 4:24 PM EST Milagros GUZMAN [facility] Performing Organization Address [facility] de Phone Number [address] * THYROID PROFILE W/TSH (09/29/2015 4:24 PM EST) Pathologist [facility] TSH CASCADE 2.00 0.40 - 4.00 uIU/ml 09/29/2015 6:18 PM EST [facility] 09/29/2015 4:24 PM EST 09/29/2015 4:24 PM EST Milagros GUZMAN [facility] Performing Organization Address [facility] Co de Phone Number [address] * (ABNORMAL) AUTOMATED HEMOGRAM PLATELET COUNT (09/29/2015 4:24 PM EST) WBC 9.7 4.8 - 10.8 x10-3 09/29/2015 5:39 PM EST [facility] RBC 4.9(H) 3.8 - 4.8 x10-6 09/29/2015 5:39 PM EST [facility] HGB 13.8 11.5 - 16.0 g/dl 09/29/2015 5:39 PM EST [facility] HCT 42.0 35 - 47 % 09/29/2015 5:39 PM [facility] MCV 85.5 79 - 98 fl 09/29/2015 5:39 PM EST [facility] MCH 28.1 27 - 32 pg 09/29/2015 5:39 PM EST [facility] MCHC 32.9 32 - 37 g/dl 09/29/2015 5:39 PM EST [facility] RDW 13.7 11 - 15 % 09/29/2015 5:39 PM [facility] PLT COUNT 365 130 - 400 x10-3 09/29/2015 5:39 PM [facility] MEAN PLATELET VOLUME 9.9 7 - 11 fl 09/29/2015 5:39 PM [facility] 09/29/2015 4:24 PM EST 09/29/2015 4:24 PM EST Milagros GUZMAN [facility] Performing Organization Address City/[facility] Co de Phone Number [address] * HEMOGLOBIN A1C (09/29/2015 4:24 PM EST) Glycosylated Hemoglobin A1C 5.7 4.0 - 6.0 % 09/29/2015 5:58 PM [facility] Comment: HbA1C VALUES MAY NOT ACCURATELY REFLECT MEAN BLOOD GLUCOSE IN PATIENTS WITH HEMOGLOBIN VARIANTS SUCH HbF, HbS. 09/29/2015 4:24 PM EST 09/29/2015 4:24 PM EST Milagros ALMANZAP LAB Performing Organization Address [facility] Co de Phone Number [address] * FOLIC ACID (09/29/2015 4:24 PM EST) FOLATE 10.9 2.8 - 17.0 ng/ml 09/29/2015 7:59 PM EST [facility] 09/29/2015 4:24 PM EST 09/29/2015 4:24 PM EST Milagros ALMANZAP LAB [facility] * VITAMIN B-12, ASSAY (09/29/2015 4:24 PM EST) Pathologist [facility] VITAMIN B12 582 211 - 946 pg/mL 09/29/2015 6:18 PM EST [facility] 09/29/2015 4:2 4 PM EST 09/29/2015 4:24 PM EST Milagros Ríos PRACTICAL MINISTRIES PROFESSOR LAB Performing Organization Address City/[facility]/ZIP Co de Phone Number [address] * (ABNORMAL) COMPREHENSIVE METABOLIC PANEL (09/29/2015 4:24 PM EST) [facility] GLUCOSE 89 70 - 100 mg/dL 09/29/2015 6:18 PM [facility] Comment: Reference range applicable to fasting specimens only Based on recommendations from the ADA and AACE, the fasting glucose reference range has been changed to 70-100 mg/dL. ??This change is effective April 02, 2010 BUN 13 5 - 25 mg/dL 09/29/2015 6:18 PM [facility] CREAT 0.7 0.7 - 1.5 mg/dL 09/29/2015 6:18 PM [facility] BUN/CREAT RATIO 18.6 6.0 - 20.0 09/29/2015 6:18 PM [facility] GFR > 60 >60 09/29/2015 6:18 PM [facility] Comment: If patient is -Salvadorean, multiply result by 1.21 Chronic Kidney Disease: < 60 ml/min/1.73 square meters Kidney Failure: < 15 ml/min/1.73 square meters Sodium 142 133 - 145 mEq/L 09/29/2015 6:18 PM EST [facility] Potassium 4.7 3.5 - 5.5 mEq/L 09/29/2015 6:18 PM EST [facility] Chloride 101 96 - 108 mEq/L 09/29/2015 6:18 PM EST [facility] CO2 26.0 21.0 - 32.0 mEq/L 09/29/2015 6:18 PM EST [facility] CALCIUM 9.5 8.5 - 10.5 mg/dL 09/29/2015 6:18 PM EST [facility] TOTAL PROTEIN 7.7 6.0 - 8.3 gm/dL 09/29/2015 6:18 PM EST [facility] Albumin 4.8 3.2 - 5.6 gm/dL 09/29/2015 6:18 PM EST [facility] GLOBULIN 2.9 1.9 - 4.4 gm/dL 09/29/2015 6:18 PM EST [facility] A/G RATIO 1.7 1.1 - 2.3 09/29/2015 6:18 PM EST [facility] BILI,TOTAL 0.2 0.0 - 1.2 mg/dL 09/29/2015 6:18 PM EST [facility] AST (SGOT) 19 10 - 42 U/L 09/29/2015 6:18 PM EST [facility] ALT( SGPT) 18 10 - 60 U/L 09/29/2015 6:18 PM EST [facility] ALK PHOS 126(H) 42 - 121 U/L 09/29/2015 6:18 PM EST [facility] 09/29/2015 4:24 PM EST 09/29/2015 4:24 PM EST Milagros Ríos PRACTICAL MINISTRIES PROFESSOR LAB Performing Organization Address City/State/[facility] Co de Phone Number [facility] [address] [facility] documented in this encounter Visit Diagnoses Diagnosis Fibromyalgia- Primary Mylagia and myositis, unspecified Epilepsy without status epilepticus, not intractable (HCC) Unspecified epilepsy without mention of intractable epilepsy PCOS (polycystic ovarian syndrome) Polycystic ovaries Morbid obesity (HCC) Morbid obesity Chronic diarrhea Diarrhea documented in this encounter Care Teams Sponge Diver Relationship Specialty Start Date End Date Alexandria Peñaloza MD PCP - General 03/26/10 07/24/20 Kristy Castrejon MD PCP - General Internal Medicine 07/25/20 1 Alexandria Peñaloza MD PCP - General Internal Medicine 11/21/20 05/13/22 Tom White [address] [place], [place] [id number] PCP - General Internal Medicine 05/14/22 10/06/22 Marisela Goodrich MD [address] [place] [address] PCP - General Internal Medicine 10/07/22 documented as of this encounter
--- OUTSIDE RECORDS SUMMARY | 2025-01-13 12:34 | XMS_ITS | Encounter Summary ---
Author Organization [facility] Address [address] [place] [address] Care Team Providers Care Supplier Quality Manager Name Role Phone Alexandria Peñaloza MD Primary Care Provider Unava Kristy Rush MD Primary Care Provider Un available Alexandria Peñaloza MD Primary Care Provider Unava ilTom Toscano Primary Care Provider [phone] Marisela Goodrich MD Primary Care Provider + Encounter Details Date Type Department Care Team Description 09/30/2016 Shaker Plate Operator Report Medical Records [address] [place] [id number] Stephen Reynolds MD Social History Tobacco Use [...] on filedocumented in this encounter Care Teams Supplier Quality Manager Relationship Specialty Start Date End Date Alexandria Peñaloza MD PCP - General 03/26/10 07/24/20 Kristy Castrejon MD PCP - General Internal Medicine 07/25/20 1 Alexandria Peñaloza MD PCP - General Internal Medicine 11/21/20 05/13/22 Tom White [address] [place] [address] PCP - General Internal Medicine 05/14/22 10/06/22 Marisela Goodrich MD [address] [place] [address] PCP - General Internal Medicine 10/07/22 documented as of this encounter
--- OUTSIDE RECORDS SUMMARY | 2025-01-13 12:34 | XMS_ITS | Encounter Summary ---
Author Organization [facility] Address [address] [place] [address] Care Team Providers Care Breaker Mechanic Name Role Phone Alexandria Peñaloza MD Primary Care Provider Unava Kristy Rush MD Primary Care Provider Un available Alexandria Peñaloza MD Primary Care Provider Unava Tom Booker Primary Care Provider [phone] Marisela Goodrich MD Primary Care Provider + Encounter Details Date Type Department Care Team Description 01/25/2019 Hospital Medical Records [address] [place] [id number] Reji Joshi MD Social History Tobacco Use [...] on filedocumented in this encounter Care Teams Breaker Mechanic Relationship Specialty Start Date End Date Alexandria Peñaloza MD PCP - General 03/26/10 07/24/20 Kristy Castrejon MD PCP - General Internal Medicine 07/25/20 1 Alexandria Peñaloza MD PCP - General Internal Medicine 11/21/20 05/13/22 Tom White [address] [place] [address] PCP - General Internal Medicine 05/14/22 10/06/22 Marisela Goodrich MD [address] [place] [address] PCP - General Internal Medicine 10/07/22 documented as of this encounter
--- OUTSIDE RECORDS SUMMARY | 2025-01-13 12:34 | XMS_ITS | Encounter Summary ---
Author Organization [facility] Address [address] [place] [address] Care Team Providers Care Herpetologist Name Role Phone Alexandria Peñaloza MD Primary Care Provider Unava Kristy Rush MD Primary Care Provider Un available Alexandria Peñaloza MD Primary Care Provider Unava Tom Booker Primary Care Provider [phone] Marisela Goodrich MD Primary Care Provider + Reason for Visit * Reason Onset Date Comments Prior Authorization 05/29/2016 Encounter Details Date Type Department Care Team Description 05/29/2016 Telephone Medicine/Pediatrics - [address] [phone] Alexandria Peñaloza MD Prior Authorization Social History [...] has taken imodium . Please fax to [phone] so I may proceed with a prior authorization . If she has taken imodium then she has met criteria for medication Thank you [place] p [phone] prior authorization pool Lacey Farmer C.M.A. On License Of [facility] Prior Authorizations Ext: [phone] * Telephone Encounter [...] Thank you Please reply back to p [phone] prior authorization pool Lacey Farmer C.M.A. On License Of [facility] Prior Authorizations Ext: [phone] * Telephone Encounter - Mavis Oh - 05/29/2016 9:11 AM EDT Pre Authorization for Medication Does the patient already have this medication?YES Is this a Cover My Meds request: [place] of Medication xifaxan 550 mg tablet Dose of Medication 500 mg How does patient take this med? Take 1 tab by mouth 3 times daily What other dosage or similar medication have you tried in the past for this problem Patients current medical insurance [facility] What Prescription Plan does the [facility] have? [facility] Prescription [facility] Tel # from back of prescription ID card What is the patients Prescription Plan ID #? What [facility] [place]: [place] / Plan: MEDICAID [place] / Product Type: MEDICAID [id number] documented in this encounter Plan of Treatment Not on file documented as of this encounter Visit Diagnoses Not on filedocumented in this encounter Care Teams Herpetologist Relationship Specialty Start Date End Date Alexandria Peñaloza MD PCP - General 03/26/10 07/24/20 Kristy Castrejon MD PCP - General Internal Medicine 07/25/20 1 Alexandria Peñaloza MD PCP - General Internal Medicine 11/21/20 05/13/22 Tom White [address] [place] [address] PCP - General Internal Medicine 05/14/22 10/06/22 Marisela Goodrich MD [address] [place] [address] PCP - General Internal Medicine 10/07/22 documented as of this encounter
--- OUTSIDE RECORDS SUMMARY | 2025-01-13 12:34 | XMS_ITS | Encounter Summary ---
Author Organization [facility] Address [address] [place] [address] Care Team Providers Care Round Corner Cutter Operator Name Role Phone Alexandria Peñaloza MD Primary Care Provider Unava Kristy Rush MD Primary Care Provider Un available Alexandria Peñaloza MD Primary Care Provider Soniava Tom Booker Primary Care Provider [phone] Marisela Goodrich MD Primary Care Provider + Encounter Details Date Type Department Care Team Description 10/22/2016 [facility] Medical Records [address] [place] [address] Abstract, Provider Social History Tobacco Use Types [...] on filedocumented in this encounter Care Teams Round Corner Cutter Operator Relationship Specialty Start Date End Date Alexandria Peñaloza MD PCP - General 03/26/10 07/24/20 Kristy Castrejon MD PCP - General Internal Medicine 07/25/20 1 Alexandria Peñaloza MD PCP - General Internal Medicine 11/21/20 05/13/22 Tom White [address] [place] [address] PCP - General Internal Medicine 05/14/22 10/06/22 Marisela Goodrich MD [address] [place] [address] PCP - General Internal Medicine 10/07/22 documented as of this encounter
--- OUTSIDE RECORDS SUMMARY | 2025-01-13 12:34 | XMS_ITS | Encounter Summary ---
Author Organization [facility] Address [address] [place] [address] Care Team Providers Care Accounts Payable Technician Name Role Phone Kristy Castrejon MD Primary Care Provider Un available Alexandria Peñaloza MD Primary Care Provider Soniava Tom Booker Primary Care Provider [phone] Marisela Goodrich MD Primary Care Provider + Reason for Visit * Reason Onset Date Comments Appointment-Internal Referral 08/14/2020 De rm Encounter Details Date Type Department Care Team Description 08/14/2020 Telephone Dermatology - [address] [phone] Kristy Castrejon MD Appointment-Internal Referral (Derm) Social [...] on filedocumented in this encounter Care Teams Accounts Payable Technician Relationship Specialty Start Date End Date Kristy Castrejon MD PCP - General Internal Medicine 07/25/20 1 Alexandria Peñaloza MD PCP - General Internal Medicine 11/21/20 05/13/22 Tom White [address] [place] [address] PCP - General Internal Medicine 05/14/22 10/06/22 Marisela Goodrich MD [address] [place] [address] PCP - General Internal Medicine 10/07/22 documented as of this encounter
--- OUTSIDE RECORDS SUMMARY | 2025-01-13 12:34 | XMS_ITS | Encounter Summary ---
Author Organization [facility] Address [address] [place] [address] Care Team Providers Care Paleology Teacher Name Role Phone Alexandria Peñaloza MD Primary Care Provider UnaKristy Negro MD Primary Care Provider Un available Alexandria Peñaloza MD Primary Care Provider Soniava Tom Booker Primary Care Provider [phone] Marisela Goodrich MD Primary Care Provider + Encounter Details Date Type Department Care Team Description 05/24/2016 [facility] Medical Records [address] [place] [address] Abstract, Provider Social History Tobacco Use Types [...] on filedocumented in this encounter Care Teams Paleology Teacher Relationship Specialty Start Date End Date Alexandria Peñaloza MD PCP - General 03/26/10 07/24/20 Kristy Castrejon MD PCP - General Internal Medicine 07/25/20 1 Alexandria Peñaloza MD PCP - General Internal Medicine 11/21/20 05/13/22 Tom White [address] [place] [address] PCP - General Internal Medicine 05/14/22 10/06/22 Marisela Goodrich MD [address] [place] [address] PCP - General Internal Medicine 10/07/22 documented as of this encounter
--- OUTSIDE RECORDS SUMMARY | 2025-01-13 12:34 | XMS_ITS | Encounter Summary ---
Author Organization [facility] Address [address] [place] [address] Care Team Providers Care Slag Production Worker Name Role Phone Alexandria Peñaloza MD Primary Care Provider Unava Kristy Rush MD Primary Care Provider Un available Alexandria Peñaloza MD Primary Care Provider Unava ilTom Toscano Primary Care Provider [phone] Marisela Goodrich MD Primary Care Provider + Encounter Details Date Type Department Care Team Description 01/19/2016 Pt. Non Urgent Medic al Question Medicine/Pediatrics - [address] [phone] Sandy Villa PA-C Social History Tobacco Use [...] 01/19/2016 10:04 AM ESTFrom: Sandy Santana To: Sandy Villa PA-C Sent: 01/19/2016 9:07 AM EST Subject: Question I have two questions. How come in the past my BOBY is positive? Also what is making me have a hard time over the years with my vitamin D documented in this encounter Plan of Treatment Not on file documented as of this encounter Visit Diagnoses Not on filedocumented in this encounter Care Teams Slag Production Worker Relationship Specialty Start Date End Date Alexandria Peñaloza MD PCP - General 03/26/10 07/24/20 Kristy Castrejon MD PCP - General Internal Medicine 07/25/20 1 Alexandria Peñaloza MD PCP - General Internal Medicine 11/21/20 05/13/22 Tom White [address] [place] [address] PCP - General Internal Medicine 05/14/22 10/06/22 Marisela Goodrich MD [address] [place] [address] PCP - General Internal Medicine 10/07/22 documented as of this encounter
--- OUTSIDE RECORDS SUMMARY | 2025-01-13 12:34 | XMS_ITS | Encounter Summary ---
Author Organization [facility] Address [address] [place] [address] Care Team Providers Care Drop Man Name Role Phone Alexandria Peñaloza MD Primary Care Provider Unava Kristy Rush MD Primary Care Provider Un available Alexandria Peñaloza MD Primary Care Provider Unava ilable Tom White Primary Care Provider [phone] Marisela Goodrich MD Primary Care Provider + Encounter Details Date Type Department Care Team Description 05/14/2018 International Travel Consultant Report Medical Records [address] [place] [address] Fran Adams [address] [place] [address], [address] [place] [address] Social History Tobacco Use Types Packs/Day Years [...] on filedocumented in this encounter Care Teams Drop Man Relationship Specialty Start Date End Date Alexandria Peñaloza MD PCP - General 03/26/10 07/24/20 Kristy Castrejon MD PCP - General Internal Medicine 07/25/20 1 Alexandria Peñaloza MD PCP - General Internal Medicine 11/21/20 05/13/22 Tom White [address] [place] [address] PCP - General Internal Medicine 05/14/22 10/06/22 Marisela Goodrich MD [address] [place] [address] PCP - General Internal Medicine 10/07/22 documented as of this encounter
--- OUTSIDE RECORDS SUMMARY | 2025-01-13 12:34 | XMS_ITS | Encounter Summary ---
Author Organization [facility] Address [address] [place] [address] Care Team Providers Care Fisher Trawl Net Name Role Phone Alexandria Peñaloza MD Primary Care Provider Unava Kristy Rush MD Primary Care Provider Un available Alexandria Peñaloza MD Primary Care Provider Unava ilTom Toscano Primary Care Provider [phone] Marisela Goodrich MD Primary Care Provider + Encounter Details Date Type Department Care Team Description 10/21/2016 Lube Technician Report Medical Records [address] [place] [address] Ronnie Boyle MD Social History Tobacco Use [...] on filedocumented in this encounter Care Teams Fisher Trawl Net Relationship Specialty Start Date End Date Alexandria Peñaloza MD PCP - General 03/26/10 07/24/20 Kristy Castrejon MD PCP - General Internal Medicine 07/25/20 1 Alexandria Peñaloza MD PCP - General Internal Medicine 11/21/20 05/13/22 Tom White [address] [place] [address] PCP - General Internal Medicine 05/14/22 10/06/22 Marisela Goodrich MD [address] [place] [address] PCP - General Internal Medicine 10/07/22 documented as of this encounter
--- OUTSIDE RECORDS SUMMARY | 2025-01-13 12:34 | XMS_ITS | Encounter Summary ---
Author Organization [facility] Address [address] [place] [address] Care Team Providers Care Livestock Showman Name Role Phone Alexandria Peñaloza MD Primary Care Provider UnaKristy Negro MD Primary Care Provider Un available Alexandria Peñaloza MD Primary Care Provider Tom Jane Primary Care Provider [phone] Marisela Goodrich MD Primary Care Provider + Encounter Details Date Type Department Care Team Description 02/13/2016 Hospital Medical Records [address] [place] [address] Tom White [address] [place] [address] Social History Tobacco Use Types Packs/Day Years [...] on filedocumented in this encounter Care Teams Livestock Showman Relationship Specialty Start Date End Date Alexandria Peñaloza MD PCP - General 03/26/10 07/24/20 Kristy Castrejon MD PCP - General Internal Medicine 07/25/20 1 Alexandria Peñaloza MD PCP - General Internal Medicine 11/21/20 05/13/22 Tom White [address] [place] [address] PCP - General Internal Medicine 05/14/22 10/06/22 Marisela Goodrich MD [address] [place] [address] PCP - General Internal Medicine 10/07/22 documented as of this encounter
--- OUTSIDE RECORDS SUMMARY | 2025-01-13 12:34 | XMS_ITS | Encounter Summary ---
Author Organization [facility] Address [address] [place] [address] Care Team Providers Care Validation Specialist Name Role Phone Alexandria Peñaloza MD Primary Care Provider Unava Kristy Rush MD Primary Care Provider Un available Alexandria Peñaloza MD Primary Care Provider Unava ilable Tom White Primary Care Provider [phone] Marisela Goodrich MD Primary Care Provider + Encounter Details Date Type Department Care Team Description 06/12/2018 Data Collection Interviewer Report Medical Records [address] [place] [address] Fran Adams [address] [place] [address], [address] [place] [address] Social History Tobacco Use Types Packs/Day Years [...] on filedocumented in this encounter Care Teams Validation Specialist Relationship Specialty Start Date End Date Alexandria Peñaloza MD PCP - General 03/26/10 07/24/20 Kristy Castrejon MD PCP - General Internal Medicine 07/25/20 1 Alexandria Peñaloza MD PCP - General Internal Medicine 11/21/20 05/13/22 Tom White [address] [place] [address] PCP - General Internal Medicine 05/14/22 10/06/22 Marisela Goodrich MD [address] [place] [address] PCP - General Internal Medicine 10/07/22 documented as of this encounter
--- OUTSIDE RECORDS SUMMARY | 2025-01-13 12:34 | XMS_ITS | Encounter Summary ---
Author Organization [facility] Address [address] [place] [address] Care Team Providers Care Apparel Sales Associate Name Role Phone Alexandria Peñaloza MD Primary Care Provider Unava Kristy Rush MD Primary Care Provider Un available Alexandria Peñaloza MD Primary Care Provider Unava ilTom Toscano Primary Care Provider [phone] Mairsela Goodrich MD Primary Care Provider + Encounter Details Date Type Department Care Team Description 09/18/2015 Pt. Non Urgent Medic al Question Medicine/Pediatrics - [address] [phone] Milagros Ríos FNP Social History Tobacco Use [...] on filedocumented in this encounter Care Teams Apparel Sales Associate Relationship Specialty Start Date End Date Alexandria Peñaloza MD PCP - General 03/26/10 07/24/20 Kristy Castrejon MD PCP - General Internal Medicine 07/25/20 1 Alexandria Peñaloza MD PCP - General Internal Medicine 11/21/20 05/13/22 Tom White [address] [place] [address] PCP - General Internal Medicine 05/14/22 10/06/22 Marisela Goodrich MD [address] [place] [address] PCP - General Internal Medicine 10/07/22 documented as of this encounter
--- OUTSIDE RECORDS SUMMARY | 2025-01-13 12:34 | XMS_ITS | Encounter Summary ---
Author Organization [facility] Address [address] [place] [address] Care Team Providers Care Disability Program Navigator Name Role Phone Kristy Castrejon MD Primary Care Provider Un available Alexandria Peñaloza MD Primary Care Provider Soniava Tom Booker Primary Care Provider [phone] Marisela Goodrich MD Primary Care Provider + Encounter Details Date Type Department Care Team Description 08/25/2020 Refill Medicine/Pediatrics - [address] [phone] India Feldman PA-C Social History Tobacco Use [...] on filedocumented in this encounter Care Teams Disability Program Navigator Relationship Specialty Start Date End Date Kristy Castrejon MD PCP - General Internal Medicine 07/25/20 Alexandria Peñaloza MD PCP - General Internal Medicine 11/21/20 05/13/22 Tom White [address] [place] [address] PCP - General Internal Medicine 05/14/22 10/06/22 Marisela Goodrich MD [address] [place] [address] PCP - General Internal Medicine 10/07/22 documented as of this encounter
--- OUTSIDE RECORDS SUMMARY | 2025-01-13 12:34 | XMS_ITS | Encounter Summary ---
Author Organization [facility] Address [address] [place] [address] Care Team Providers Care Frame Table Operator Name Role Phone Alexandria Peñaloza MD Primary Care Provider UnaKristy Negro MD Primary Care Provider Un available Alexandria Peñaloza MD Primary Care Provider Unava Tom Booker Primary Care Provider [phone] Marisela Goodrich MD Primary Care Provider + Encounter Details Date Type Department Care Team Description 04/25/2016 [facility] Medical Records [address] [place] [address] Abstract, Provider Pneumonia of left lower lobe [...] organism documented in this encounter Care Teams Frame Table Operator Relationship Specialty Start Date End Date Alexandria Peñaloza MD PCP - General 03/26/10 07/24/20 Kristy Castrejon MD PCP - General Internal Medicine 07/25/20 1 Alexandria Peñaloza MD PCP - General Internal Medicine 11/21/20 05/13/22 Tom White [address] [place], [place] [id number] PCP - General Internal Medicine 05/14/22 10/06/22 Marisela Goodrich MD [address] [place] [address] PCP - General Internal Medicine 10/07/22 documented as of this encounter
--- OUTSIDE RECORDS SUMMARY | 2025-01-13 12:34 | XMS_ITS | Encounter Summary ---
Author Organization [facility] Address [address] [place] [address] Care Team Providers Care Digital Asset Manager Name Role Phone Alexandria Peñaloza MD Primary Care Provider Unava Kristy Rush MD Primary Care Provider Un available Alexandria Peñaloza MD Primary Care Provider Unava Tom Booker Primary Care Provider [phone] Marisela Goodrich MD Primary Care Provider + Encounter Details Date Type Department Care Team Description 10/06/2016 [facility] Medical Records [address] [place] [address] Social History Tobacco Use Types Packs/Day Years [...] on filedocumented in this encounter Care Teams Digital Asset Manager Relationship Specialty Start Date End Date Alexandria Peñaloza MD PCP - General 03/26/10 07/24/20 Kritsy Castrejon MD PCP - General Internal Medicine 07/25/20 1 Alexandria Peñaloza MD PCP - General Internal Medicine 11/21/20 05/13/22 Tom White [address] [place] [address] PCP - General Internal Medicine 05/14/22 10/06/22 Marisela Goodrich MD [address] [place] [address] PCP - General Internal Medicine 10/07/22 documented as of this encounter
--- OUTSIDE RECORDS SUMMARY | 2025-01-13 12:34 | XMS_ITS | Encounter Summary ---
Author Organization [facility] Address [address] [place] [address] Care Team Providers Care Building Drafter Name Role Phone Alexandria Peñaloza MD Primary Care Provider Unava Kristy Rush MD Primary Care Provider Un available Alexandria Peñaloza MD Primary Care Provider Unava Tom Booker Primary Care Provider [phone] Marisela Goodrich MD Primary Care Provider + Encounter Details Date Type Department Care Team Description 05/12/2020 [facility] Medical Records [address] [place] [address] Abstract, Provider Social History Tobacco Use Types [...] on filedocumented in this encounter Care Teams Building Drafter Relationship Specialty Start Date End Date Alexandria Peñaloza MD PCP - General 03/26/10 07/24/20 Kristy Castrejon MD PCP - General Internal Medicine 07/25/20 1 Alexandria Peñaloza MD PCP - General Internal Medicine 11/21/20 05/13/22 Tom White [address] [place] [address] PCP - General Internal Medicine 05/14/22 10/06/22 Marisela Goodrich MD [address] [place] [address] PCP - General Internal Medicine 10/07/22 documented as of this encounter
--- OUTSIDE RECORDS SUMMARY | 2025-01-13 12:34 | XMS_ITS | Encounter Summary ---
Author Organization [facility] Address [address] [place] [address] Care Team Providers Care Assembly Detailer Name Role Phone Alexandria Peñaloza MD Primary Care Provider Unava Kristy Rush MD Primary Care Provider Un available Alexandria Peñaloza MD Primary Care Provider Unava Tom Booker Primary Care Provider [phone] Marisela Goodrich MD Primary Care Provider + Reason for Visit * Reason Onset Date Comments Medication Review 12/15/2018 all meds in li quid form for upcoming surgery Encounter Details Date Type Department Care Team Description 12/15/2018 Telephone PHARMACY CLINIC [address] [place] [address] Alexandria Peñaloza MD Medication Review (all meds in liquid form for upcoming surgery) Social History Tobacco Use Types Packs/Day Years [...] encounter Miscellaneous Notes * Telephone Encounter - Geoffrey Camarillo PA-C - 12/15/2018 3:29 PM EST Scripts signed * Telephone Encounter - Gale Mendoza L.P.N. - 12/15/2018 11:44 AM EST rx set up please review and sign * Telephone Encounter - India Elizabeth Pharm.D - 12/15/2018 11:26 AM EST Now would be good just in case there are any issues. Thank you, India * Telephone Encounter - Gale Mendoza L.P.N. - 12/15/2018 10:37 AM EST D you want these done now in liquid form or for january ? * Telephone Encounter - India Elizabeth Pharm.D - 12/15/2018 9:22 AM EST Good morning, Patient is having esophgeal surgery on 01/25/19 and will not be able to take pill forms of her medications. I've researched her medications and almost all come in liquid form and should be covered by [facility] with no PA (per formulary medications are either tier1 or 2 with no exceptions). She will need the following scripts prior to her surgery: -Vitamin D3 (only comes in 5000 units for liquid) -Promethazine 6.25mg/5ml: 40 ml q 6 h prn (if acceptable to refill) -citalopram 10 mg/5 ml: 10 ml po qd -diazepam 5 mg/5ml: 2 ml po q 12 h prn (if ok to refill) -lyrica 20 mg/ml: 2.5 ml po qd -Omeprazole: First omeprazole as bicarb is on back order to compound omeprazole- First omeprazole 2mg/ml- 20 ml qd Trazodone does not come in a liquid form. Patient is ok with not taking this during her recovery. Please let me know what I can do to be of assistance. Thank you, India Elizabeth, PharmD. Transition of Care Pharmacist [facility] [address] [place], [place] [phone] [email or web address] documented in this encounter Plan of Treatment Not on file documented as of this encounter Visit Diagnoses Not on filedocumented in this encounter Care Teams Assembly Detailer Relationship Specialty Start Date End Date Alexandria Peñaloza MD PCP - General 03/26/10 07/24/20 Kristy Castrejon MD PCP - General Internal Medicine 07/25/20 1 Alexandria Peñaloza MD PCP - General Internal Medicine 11/21/20 05/13/22 Tom White [address] [place] [address] PCP - General Internal Medicine 05/14/22 10/06/22 Marisela Goodrich MD [address] [place] [address] PCP - General Internal Medicine 10/07/22 documented as of this encounter
--- OUTSIDE RECORDS SUMMARY | 2025-01-13 12:34 | XMS_ITS | Encounter Summary ---
Author Organization [facility] Address [address] [place] [address] Care Team Providers Care Community Relations Police Lieutenant Name Role Phone Alexandria Peñaloza MD Primary Care Provider Unava Kristy Rush MD Primary Care Provider Un available Alexandria Peñaloza MD Primary Care Provider Unava Tom Booker Primary Care Provider [phone] Marisela Goodrich MD Primary Care Provider + Encounter Details Date Type Department Care Team Description 02/07/2016 Hospital Medical Records [address] [place] [address] Yesenia Alcala Social History Tobacco Use Types [...] on filedocumented in this encounter Care Teams Community Relations Police Lieutenant Relationship Specialty Start Date End Date Alexandria Peñaloza MD PCP - General 03/26/10 07/24/20 Kristy Castrejon MD PCP - General Internal Medicine 07/25/20 1 Alexandria Peñaloza MD PCP - General Internal Medicine 11/21/20 05/13/22 Tom White [address] [place] [address] PCP - General Internal Medicine 05/14/22 10/06/22 Marisela Goodrich MD [address] [place] [address] PCP - General Internal Medicine 10/07/22 documented as of this encounter
--- OUTSIDE RECORDS SUMMARY | 2025-01-13 12:34 | XMS_ITS | Encounter Summary ---
Author Organization [facility] Address [address] [place] [address] Care Team Providers Care Ring Making Machine Operator Name Role Phone Alexandria Peñaloza MD Primary Care Provider Unava Kristy Rush MD Primary Care Provider Un available Alexandria Peñaloza MD Primary Care Provider Unava Tom Booker Primary Care Provider [phone] Marisela Goodrich MD Primary Care Provider + Encounter Details Date Type Department Care Team Description 07/22/2018 Hospital Medical Records [address] [place] [address] Reji Joshi MD Social History Tobacco Use [...] on filedocumented in this encounter Care Teams Ring Making Machine Operator Relationship Specialty Start Date End Date Alexandria Peñaloza MD PCP - General 03/26/10 07/24/20 Kristy Castrejon MD PCP - General Internal Medicine 07/25/20 1 Alexandria Peñaloza MD PCP - General Internal Medicine 11/21/20 05/13/22 Tom White [address] [place] [address] PCP - General Internal Medicine 05/14/22 10/06/22 Marisela Goodrich MD [address] [place] [address] PCP - General Internal Medicine 10/07/22 documented as of this encounter
--- OUTSIDE RECORDS SUMMARY | 2025-01-13 12:35 | XMS_ITS | Encounter Summary ---
Author Organization [facility] Address [address] [place] [address] Care Team Providers Care Senior Software Manager Name Role Phone Alexandria Peñaloza MD Primary Care Provider Unava Kristy Rush MD Primary Care Provider Un available Alexandria Peñaloza MD Primary Care Provider Unava ilable Tom White Primary Care Provider Marisela Goodrich MD Primary Care Provider + Reason for Visit * Reason Onset Date Comments Call From Pharmacy 12/22/2019 Encounter Details Date Type Department Care Team Description 12/22/2019 Telephone OBN - [address] [address] Robel Mares MD Call From Pharmacy Social [...] - 12/22/2019 11:44 AM EST pts pharmacy [facility] in [place] is calling states the pt is using [...] filedocumented in this encounter Care Teams Senior Software Manager Relationship Specialty Start Date End Date Alexandria Peñaloza MD PCP - General 03/26/10 07/24/20 Kristy Castrejon MD PCP - General Internal Medicine 07/25/20 1 Alexandria Peñaloza MD PCP - General Internal Medicine 11/21/20 05/13/22 Tom White [address] [place] [address] PCP - General Internal Medicine 05/14/22 10/06/22 Marisela Goodrich MD [address] [place] [address] PCP - General Internal Medicine 10/07/22 documented as of this encounter
--- OUTSIDE RECORDS SUMMARY | 2025-01-13 12:35 | XMS_ITS | Encounter Summary ---
Author Organization [facility] Address [address] [place] [address] Care Team Providers Care Procurement Internship Name Role Phone Alexandria Peñaloza MD Primary Care Provider Tom Jane Primary Care Provider [phone] Marisela Goodrich MD Primary Care Provider + Reason for Visit * Reason Onset Date Comments radiology 11/23/2021 Encounter Details Date Type Department Care Team Description 11/23/2021 Telephone MRI - Social Circle [address] [place] [address] Aye Ortega PA-C [address] [place] [address] radiology Social History Tobacco Use Types Packs/Day [...] and will need to be scanned at [facility] on open mri machine due to her BMI. Can you please place external order? Thank you, [facility] Mri department ext [phone] documented in this encounter Plan of Treatment Not on file documented as of this encounter Visit Diagnoses Not on filedocumented in this encounter Care Teams Procurement Internship Relationship Specialty Start Date End Date Alexandria Peñaloza MD PCP - General Internal Medicine 11/21/20 05/13/22 Tom White [address] [place] [address] PCP - General Internal Medicine 05/14/22 10/06/22 Marisela Goodrich MD [address] [place] [address] PCP - General Internal Medicine 10/07/22 documented as of this encounter
--- OUTSIDE RECORDS SUMMARY | 2025-01-13 12:35 | XMS_ITS | Encounter Summary ---
Author Organization [facility] Address [address] [place] [address] Care Team Providers Care Wood Tile Installer Name Role Phone Alexandria Peñaloza MD Primary Care Provider Unava Kristy Rush MD Primary Care Provider Un available Alexandria Peñaloza MD Primary Care Provider Unava ilTom Toscano Primary Care Provider [phone] Marisela Goodrich MD Primary Care Provider + Encounter Details Date Type Department Care Team Description 05/23/2011 Meal Room Hand Report Medical Records [address] [place] [address] Reji Hensley [address] [place] [address] Social History Tobacco Use Types Packs/Day Years [...] on filedocumented in this encounter Care Teams Wood Tile Installer Relationship Specialty Start Date End Date Alexandria Peñaloza MD PCP - General 03/26/10 07/24/20 Kristy Castrejon MD PCP - General Internal Medicine 07/25/20 1 Alexandria Peñaloza MD PCP - General Internal Medicine 11/21/20 05/13/22 Tom White [address] [place] [address] PCP - General Internal Medicine 05/14/22 10/06/22 Marisela Goodrich MD [address] [place] [address] PCP - General Internal Medicine 10/07/22 documented as of this encounter
--- OUTSIDE RECORDS SUMMARY | 2025-01-13 12:35 | XMS_ITS | Encounter Summary ---
Author Organization [facility] Address [address] [place] [address] Care Team Providers Care Methods Analyst Name Role Phone Alexandria Peñaloza MD Primary Care Provider Unava Kristy Rush MD Primary Care Provider Un available Alexandria Peñaloza MD Primary Care Provider Unava Tom Booker Primary Care Provider [phone] Marisela Goodrich MD Primary Care Provider + Encounter Details Date Type Department Care Team Description 12/20/2019 [facility] Medical Records [address] [place] [address] Robel Marks MD Social History Tobacco Use [...] on filedocumented in this encounter Care Teams Methods Analyst Relationship Specialty Start Date End Date Alexandria Peñaloza MD PCP - General 03/26/10 07/24/20 Kristy Castrejon MD PCP - General Internal Medicine 07/25/20 1 Alexandria Peñaloza MD PCP - General Internal Medicine 11/21/20 05/13/22 Tom White [address] [place] [address] PCP - General Internal Medicine 05/14/22 10/06/22 Marisela Goodrich MD [address] [place] [address] PCP - General Internal Medicine 10/07/22 documented as of this encounter
--- OUTSIDE RECORDS SUMMARY | 2025-01-13 12:35 | XMS_ITS | Encounter Summary ---
Author Organization [facility] Address [address] [place] [address] Care Team Providers Care Register Of Deeds Name Role Phone Alexandria Peñaloza MD Primary Care Provider UnaKristy Negro MD Primary Care Provider Un available Alexandria Peñaloza MD Primary Care Provider Soniava Tom Booker Primary Care Provider [phone] Marisela Goodrich MD Primary Care Provider + Encounter Details Date Type Department Care Team Description 07/30/2016 Controlled Substance Contract with Plan Medical Records [address] [place] [address] Abstract, Provider Social History Tobacco Use Types [...] on filedocumented in this encounter Care Teams Register Of Deeds Relationship Specialty Start Date End Date Alexandria Peñaloza MD PCP - General 03/26/10 07/24/20 Kristy Castrejon MD PCP - General Internal Medicine 07/25/20 1 Alexandria Peñaloza MD PCP - General Internal Medicine 11/21/20 05/13/22 Tom White [address] [place] [address] PCP - General Internal Medicine 05/14/22 10/06/22 Marisela Goodrich MD [address] [place] [address] PCP - General Internal Medicine 10/07/22 documented as of this encounter
--- OUTSIDE RECORDS SUMMARY | 2025-01-13 12:35 | XMS_ITS | Encounter Summary ---
Author Organization [facility] Address [address] [place] [address] Care Team Providers Care Lifestyle Coordinator Name Role Phone Tom White Primary Care Provider [phone] Marisela Goodrich MD Primary Care Provider + Reason for Visit * Reason Onset Date Comments Mychart Rx Refill 09/05/2022 Encounter Details Date Type Department Care Team Description 09/05/2022 Refill Medicine/Pediatrics - [address] [phone] Aye Ortega PA-C [address] [place] [address] Mychart Rx Refill Social History Tobacco Use [...] on filedocumented in this encounter Care Teams Lifestyle Coordinator Relationship Specialty Start Date End Date Tom White [address] [place] [address] PCP - General Internal Medicine 05/14/22 10/06/22 Marisela Goodrich MD [address] [place] [address] PCP - General Internal Medicine 10/07/22 documented as of this encounter
--- OUTSIDE RECORDS SUMMARY | 2025-01-13 12:35 | XMS_ITS | Encounter Summary ---
Author Organization [facility] Address [address] [place] [address] Care Team Providers Care Stock Crane Operator Name Role Phone Alexandria Peñaloza MD Primary Care Provider Unava Kristy Rush MD Primary Care Provider Un available Alexandria Peñaloza MD Primary Care Provider Unava ilTom Toscano Primary Care Provider [phone] Marisela Goodrich MD Primary Care Provider + Encounter Details Date Type Department Care Team Description 01/21/2011 Grip Assembler Report Medical Records [address] [place] [address] Reji Hensley [address] [place] [address] Social History Tobacco Use Types Packs/Day Years [...] on filedocumented in this encounter Care Teams Stock Crane Operator Relationship Specialty Start Date End Date Alexandria Peñaloza MD PCP - General 03/26/10 07/24/20 Kristy Castrejon MD PCP - General Internal Medicine 07/25/20 1 Alexandria Peñaloza MD PCP - General Internal Medicine 11/21/20 05/13/22 Tom White [address] [place] [address] PCP - General Internal Medicine 05/14/22 10/06/22 Marisela Goodrich MD [address] [place] [address] PCP - General Internal Medicine 10/07/22 documented as of this encounter
--- OUTSIDE RECORDS SUMMARY | 2025-01-13 12:35 | XMS_ITS | Encounter Summary ---
Author Organization [facility] Address [address] [place] [address] Care Team Providers Care Nuclear Design Engineer Name Role Phone Tom White Primary Care Provider [phone] Marisela Goodrich MD Primary Care Provider + Reason for Visit * Reason Onset Date Comments Mychart Rx Refill 09/06/2022 Encounter Details Date Type Department Care Team Description 09/06/2022 Refill Medicine/Pediatrics - [address] [address] Aye Ortega PA-C [address] [place] [address] Mychart Rx Refill Social History Tobacco Use [...] filedocumented in this encounter Care Teams Nuclear Design Engineer Relationship Specialty Start Date End Date Tom White [address] [place] [address] PCP - General Internal Medicine 05/14/22 10/06/22 Marisela Goodrich MD [address] [place] [address] PCP - General Internal Medicine 10/07/22 documented as of this encounter
--- OUTSIDE RECORDS SUMMARY | 2025-01-13 12:35 | XMS_ITS | Encounter Summary ---
Author Organization [facility] Address [address] [place] [address] Care Team Providers Care Mail Clerks Supervisor Name Role Phone Tom White Primary Care Provider [phone] Marisela Goodrich MD Primary Care Provider + Encounter Details Date Type Department Care Team Description 07/10/2022 Pt. Non Urgent Medic al Question Medicine/Pediatrics - [address] [address] Tatum Thomas PA-C Social History Tobacco Use [...] Telephone Encounter - Robbie Hogan M.A. 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 Could you please take care of that? Thank you documented in this encounter Plan of Treatment Not on file documented as of this encounter Visit Diagnoses Not on filedocumented in this encounter Care Teams Mail Clerks Supervisor Relationship Specialty Start Date End Date Tom Whiet [address] [place] [address] PCP - General Internal Medicine 05/14/22 10/06/22 Marisela Goodrich MD [address] [place] [address] PCP - General Internal Medicine 10/07/22 documented as of this encounter
--- OUTSIDE RECORDS SUMMARY | 2025-01-13 12:35 | XMS_ITS | Encounter Summary ---
Author Organization [facility] Address [address] [place] [address] Care Team Providers Care Hcc Coders Name Role Phone Alexandria Peñaloza MD Primary Care Provider Unava Kristy Rush MD Primary Care Provider Un available Alexandria Peñaloza MD Primary Care Provider Unava Tom Booker Primary Care Provider [phone] Marisela Goodrich MD Primary Care Provider + Encounter Details Date Type Department Care Team Description 02/15/2020 Foamite Mixer Report Medical Records [address] [place] [address] Reji Hensley [address] [place] [address] Social History Tobacco Use Types Packs/Day Years [...] on filedocumented in this encounter Care Teams Hcc Coders Relationship Specialty Start Date End Date Alexandria Peñaloza MD PCP - General 03/26/10 07/24/20 Kristy Castrejon MD PCP - General Internal Medicine 07/25/20 1 Alexandria Peñaloza MD PCP - General Internal Medicine 11/21/20 05/13/22 Tom White [address] [place] [address] PCP - General Internal Medicine 05/14/22 10/06/22 Marisela Goodrich MD [address] [place] [address] PCP - General Internal Medicine 10/07/22 documented as of this encounter
--- OUTSIDE RECORDS SUMMARY | 2025-01-13 12:35 | XMS_ITS | Encounter Summary ---
Author Organization [facility] Address [address] [place] [address] Care Team Providers Care Customer Loyalty Representative Name Role Phone Alexandria Peñaloza MD Primary Care Provider Unava Kristy Rush MD Primary Care Provider Un available Alexandria Peñaloza MD Primary Care Provider Soniava Tom Booker Primary Care Provider [phone] Marisela Goodrich MD Primary Care Provider + Encounter Details Date Type Department Care Team Description 08/19/2016 Hospital Medical Records [address] [place] [address] Marcus Gray Social History Tobacco Use Types Packs/Day Years [...] on filedocumented in this encounter Care Teams Customer Loyalty Representative Relationship Specialty Start Date End Date Alexandria Peñaloza MD PCP - General 03/26/10 07/24/20 Kristy Castrejon MD PCP - General Internal Medicine 07/25/20 1 Alexandria Peñaloza MD PCP - General Internal Medicine 11/21/20 05/13/22 Tom White [address] [place] [address] PCP - General Internal Medicine 05/14/22 10/06/22 Marisela Goodrich MD [address] [place] [address] PCP - General Internal Medicine 10/07/22 documented as of this encounter
--- OUTSIDE RECORDS SUMMARY | 2025-01-13 12:35 | XMS_ITS | Encounter Summary ---
Author Organization [facility] Address [address] [place] [address] Care Team Providers Care Animal Anatomist Name Role Phone Alexandria Peñaloza MD Primary Care Provider Unava Kristy Rush MD Primary Care Provider Un available Alexandria Peñaloza MD Primary Care Provider Unava Tom Booker Primary Care Provider [phone] Marisela Goodrich MD Primary Care Provider + Encounter Details Date Type Department Care Team Description 04/09/2018 Hospital Medical Records [address] [place] [address] Ayesha Weaver MD Social History Tobacco Use [...] on filedocumented in this encounter Care Teams Animal Anatomist Relationship Specialty Start Date End Date Alexandria Peñaloza MD PCP - General 03/26/10 07/24/20 Kristy Castrejon MD PCP - General Internal Medicine 07/25/20 1 Alexandria Peñaloza MD PCP - General Internal Medicine 11/21/20 05/13/22 Tom White [address] [place] [address] PCP - General Internal Medicine 05/14/22 10/06/22 Marisela Goodrich MD [address] [place] [address] PCP - General Internal Medicine 10/07/22 documented as of this encounter
--- OUTSIDE RECORDS SUMMARY | 2025-01-13 12:35 | XMS_ITS | Encounter Summary ---
Author Organization [facility] Address [address] [place] [address] Care Team Providers Care Java Android Developer Name Role Phone Alexandria Peñaloza MD Primary Care Provider Kristy Milan MD Primary Care Provider Un available Alexandria Peñaloza MD Primary Care Provider Soniava Tom Booker Primary Care Provider [phone] Marisela Goodrich MD Primary Care Provider + Encounter Details Date Type Department Care Team Description 04/06/2018 [facility] Medical Records [address] [place] [address] Social History Tobacco Use Types Packs/Day Years [...] on filedocumented in this encounter Care Teams Java Android Developer Relationship Specialty Start Date End Date Alexandria Peñaloza MD PCP - General 03/26/10 07/24/20 Kristy Castrejon MD PCP - General Internal Medicine 07/25/20 1 Alexandria Peñaloza MD PCP - General Internal Medicine 11/21/20 05/13/22 Tom White [address] [place] [address] PCP - General Internal Medicine 05/14/22 10/06/22 Marisela Goodrich MD [address] [place] [address] PCP - General Internal Medicine 10/07/22 documented as of this encounter
--- OUTSIDE RECORDS SUMMARY | 2025-01-13 12:35 | XMS_ITS | Encounter Summary ---
Author Organization [facility] Address [address] [place] [address] Care Team Providers Care Employment Director Name Role Phone Tom White Primary Care Provider [phone] Marisela Goodrich MD Primary Care Provider + Encounter Details Date Type Department Care Team Description 06/24/2022 Refill Medicine/Pediatrics - [address] [address] Kristy Castrejon MD Social History Tobacco Use [...] on filedocumented in this encounter Care Teams Employment Director Relationship Specialty Start Date End Date Tom White [address] [place] [address] PCP - General Internal Medicine 05/14/22 10/06/22 Marisela Goodrich MD [address] [place] [address] PCP - General Internal Medicine 10/07/22 documented as of this encounter
--- OUTSIDE RECORDS SUMMARY | 2025-01-13 12:35 | XMS_ITS | Encounter Summary ---
Author Organization [facility] Address [address] [place] [address] Care Team Providers Care Industrial Safety Engineer Name Role Phone Alexandria Peñaloza MD Primary Care Provider Kristy Milan MD Primary Care Provider Un available Alexandria Peñaloza MD Primary Care Provider Soniava Tom Booker Primary Care Provider [phone] Marisela Goodrich MD Primary Care Provider + Encounter Details Date Type Department Care Team Description 04/14/2018 [facility] Medical Records [address] [place] [address] Social History Tobacco Use Types Packs/Day Years [...] filedocumented in this encounter Care Teams Industrial Safety Engineer Relationship Specialty Start Date End Date Alexandria Peñaloza MD PCP - General 03/26/10 07/24/20 Kristy Castrejon MD PCP - General Internal Medicine 07/25/20 1 Alexandria Peñaloza MD PCP - General Internal Medicine 11/21/20 05/13/22 Tom White [address] [place] [address] PCP - General Internal Medicine 05/14/22 10/06/22 Marisela Goodrich MD [address] [place] [address] PCP - General Internal Medicine 10/07/22 documented as of this encounter
--- OUTSIDE RECORDS SUMMARY | 2025-01-13 12:35 | XMS_ITS | Encounter Summary ---
Author Organization [facility] Address [address] [place] [address] Care Team Providers Care Industrial Safety Engineer Name Role Phone Alexandria Peñaloza MD Primary Care Provider Unava Kristy Rush MD Primary Care Provider Un available Alexandria Peñaloza MD Primary Care Provider Unava ilable Tom White Primary Care Provider [phone] Marisela Goodrich MD Primary Care Provider + Encounter Details Date Type Department Care Team Description 08/07/2016 Pt. Non Urgent Medic al Question Gastroenterology - [address] [address] Juanjose Connell MD Social History Tobacco Use [...] General Internal Medicine 11/21/20 05/13/22 Tom White [address] [place] [id number] PCP - General Internal Medicine 05/14/22 10/06/22 Marisela Goodrich MD [address] [place] [address] PCP - General Internal Medicine 10/07/22 documented as of this encounter
--- OUTSIDE RECORDS SUMMARY | 2025-01-13 12:35 | XMS_ITS | Encounter Summary ---
Author Organization [facility] Address [address] [place] [address] Care Team Providers Care Woodworking Machine Offbearer Name Role Phone Alexandria Peñaloza MD Primary Care Provider Kristy Milan MD Primary Care Provider Un available Alexandria Peñaloza MD Primary Care Provider Soniava Tom Booker Primary Care Provider [phone] Marisela Goodrich MD Primary Care Provider + Encounter Details Date Type Department Care Team Description 04/16/2018 [facility] Medical Records [address] [place] [address] Social History Tobacco Use Types Packs/Day Years [...] on filedocumented in this encounter Care Teams Woodworking Machine Offbearer Relationship Specialty Start Date End Date Alexandria Peñaloza MD PCP - General 03/26/10 07/24/20 Kristy Castrejon MD PCP - General Internal Medicine 07/25/20 1 Alexandria Peñaloza MD PCP - General Internal Medicine 11/21/20 05/13/22 Tom White [address] [place] [address] PCP - General Internal Medicine 05/14/22 10/06/22 Marisela Goodrich MD [address] [place] [address] PCP - General Internal Medicine 10/07/22 documented as of this encounter
--- OUTSIDE RECORDS SUMMARY | 2025-01-13 12:35 | XMS_ITS | Encounter Summary ---
Author Organization [facility] Address [address] [place] [address] Care Team Providers Care Leverman Name Role Phone Alexandria Peñaloza MD Primary Care Provider Unava Kristy Rush MD Primary Care Provider Un available Alexandria Peñaloza MD Primary Care Provider Unava ilTom Toscano Primary Care Provider [phone] Marisela Goodrich MD Primary Care Provider + Encounter Details Date Type Department Care Team Description 12/22/2019 Orders Only Medical Records [address] [place] [address] Robel Marks MD Social History Tobacco Use [...] Name Priority Date/Time Associated Diagnosis Comments OUTSIDE PATHOLOGY Routine 12/20/2019 documented in this encounter Results * OUTSIDE PATHOLOGY (12/20/2019) Robel Marks MD OUTSIDE LAB documented in this encounter Visit Diagnoses Not on filedocumented in this encounter Care Teams Leverman Relationship Specialty Start Date End Date Alexandria Peñaloza MD PCP - General 03/26/10 07/24/20 Kristy Castrejon MD PCP - General Internal Medicine 07/25/20 1 Alexandria Peñaloza MD PCP - General Internal Medicine 11/21/20 05/13/22 Tom White [address] [place], [place] [phone] PCP - General Internal Medicine 05/14/22 10/06/22 Marisela Goodrich MD [address] [place], [place] [phone] PCP - General Internal Medicine 10/07/22 documented as of this encounter
--- OUTSIDE RECORDS SUMMARY | 2025-01-13 12:35 | XMS_ITS | Encounter Summary ---
Author Organization [facility] Address [address] [place] [address] Care Team Providers Care Clean Rice Broker Name Role Phone Alexandria Peñaloza MD Primary Care Provider Unava Kristy Rush MD Primary Care Provider Un available Alexandria Peñaloza MD Primary Care Provider Unava ilable Tom White Primary Care Provider [phone] Marisela Goodrich MD Primary Care Provider + Encounter Details Date Type Department Care Team Description 04/27/2018 Hospital Medical Records [address] [place] [address] Fran Adams [address] [place] [address], [address] [place] [address] Social History Tobacco Use Types Packs/Day Years [...] on filedocumented in this encounter Care Teams Clean Rice Broker Relationship Specialty Start Date End Date Alexandria Peñaloza MD PCP - General 03/26/10 07/24/20 Kristy Castrejon MD PCP - General Internal Medicine 07/25/20 Alexandria Peñaloza MD PCP - General Internal Medicine 11/21/20 05/13/22 Tom White [address] [place] [address] PCP - General Internal Medicine 05/14/22 10/06/22 Marisela Goodrich MD [address] [place] [address] PCP - General Internal Medicine 10/07/22 documented as of this encounter
--- OUTSIDE RECORDS SUMMARY | 2025-01-13 12:35 | XMS_ITS | Encounter Summary ---
Author Organization [facility] Address [address] [place] [address] Care Team Providers Care Bi Lead Name Role Phone Tom White Primary Care Provider [phone] Marisela Goodrich MD Primary Care Provider + Encounter Details Date Type Department Care Team Description 09/30/2022 [facility] Medical Records [address] [place] [address] Abstract, Provider Social History Tobacco Use Types [...] suspected to have Coronavirus/COVID-19? No / Unsure 09/24/2022 8:03 AM EST documented as of this encounter Plan of Treatment Not on file documented as of this encounter Visit Diagnoses Not on filedocumented in this encounter Care Teams Bi Lead Relationship Specialty Start Date End Date Tom White [address] [place] [address] PCP - General Internal Medicine 05/14/22 10/06/22 Marisela Goodrich MD [address] [place] [address] PCP - General Internal Medicine 10/07/22 documented as of this encounter
--- OUTSIDE RECORDS SUMMARY | 2025-01-13 12:35 | XMS_ITS | Encounter Summary ---
Author Organization [facility] Address [address] [place] [address] Care Team Providers Care Heat Treat Technician Name Role Phone Alexandria Peñaloza MD Primary Care Provider Unava Kristy Rush MD Primary Care Provider Un available Alexandria Peñaloza MD Primary Care Provider Unava ilable Tom White Primary Care Provider [phone] Marisela Goodrich MD Primary Care Provider + Reason for Visit * Reason Comments E-prescribe Rx Request Encounter Details Date Type Department Care Team Description 04/24/2018 Refill Medicine/Pediatrics - [address] [phone] Geoffrey Camarillo PA-C E-prescribe Rx Request Social [...] THE PATIENT'S LAST APPOINTMENT IN ADULT MEDICINE? [id number] WHEN WAS THE LAST TIME THE PATIENT SAW THEIR PCP? [id number] Does patient have an upcoming appointment? Yes [id number] (THE MEDICATION REQUESTED IS ON THE MED LIST ABOVE) All of the medications requested were on the CURRENT MEDS list Did you check the Pharmacy information above?: YES Patient wants: 30 -day supply Is this a mail order prescription request ? NO Patients current insurance carrier is: [facility] [place] [facility] / Plan: [facility] / Product Type: MEDICAID RISK documented in this encounter Plan of Treatment Not on file documented as of this encounter Visit Diagnoses Not on filedocumented in this encounter Care Teams Heat Treat Technician Relationship Specialty Start Date End Date Alexandria Peñaloza MD PCP - General 03/26/10 07/24/20 Kristy Castrejon MD PCP - General Internal Medicine 07/25/20 1 Alexandria Peñaloza MD PCP - General Internal Medicine 11/21/20 05/13/22 Tom White [address] [place] [address] PCP - General Internal Medicine 05/14/22 10/06/22 Marisela Goodrich MD [address] [place] [address] PCP - General Internal Medicine 10/07/22 documented as of this encounter
--- OUTSIDE RECORDS SUMMARY | 2025-01-13 12:35 | XMS_ITS | Encounter Summary ---
Author Organization [facility] Address [address] [place] [address] Care Team Providers Care Powder Worker Tnt Name Role Phone Alexandria Peñaloza MD Primary Care Provider Unava Kristy Rush MD Primary Care Provider Un available Alexandria Peñaloza MD Primary Care Provider Unava Tom Booker Primary Care Provider [phone] Marisela Goodrich MD Primary Care Provider + Encounter Details Date Type Department Care Team Description 11/24/2019 [facility] Medical Records [address] [place] [id number] Abstract, Provider Social History Tobacco Use Types [...] on filedocumented in this encounter Care Teams Powder Worker Tnt Relationship Specialty Start Date End Date Alexandria Peñaloza MD PCP - General 03/26/10 07/24/20 Kristy Castrejon MD PCP - General Internal Medicine 07/25/20 1 Alexandria Peñaloza MD PCP - General Internal Medicine 11/21/20 05/13/22 Tom White [address] [place] [address] PCP - General Internal Medicine 05/14/22 10/06/22 Marisela Goodrich MD [address] [place] [address] PCP - General Internal Medicine 10/07/22 documented as of this encounter
--- OUTSIDE RECORDS SUMMARY | 2025-01-13 12:35 | XMS_ITS | Encounter Summary ---
Author Organization [facility] Address [address] [place] [address] Care Team Providers Care Caravan Park And Camping Ground Manager Name Role Phone Alexandria Peñaloza MD Primary Care Provider Tom Jane Primary Care Provider [phone] Marisela Goodrich MD Primary Care Provider + Reason for Visit * Reason Onset Date Comments Prior Authorization 11/20/2021 MRI Lumbar S pine Encounter Details Date Type Department Care Team Description 11/20/2021 Telephone Adult Medicine [facility] [address] [place] [address] Aye Ortega PA-C [address] [place] [address] Prior Authorization (MRI Lumbar Spine) Social History Tobacco Use Types Packs/Day Years [...] encounter Miscellaneous Notes * Telephone Encounter - Guillermina Justyn - 11/20/2021 11:13 AM EST MRI Lumbar Spine pending with insurance Thank you, Guillermina Alejandra Prior Auth [phone] documented in this encounter Plan of Treatment Not on file documented as of this encounter Visit Diagnoses Not on filedocumented in this encounter Care Teams Caravan Park And Camping Ground Manager Relationship Specialty Start Date End Date Alexandria Peñaloza MD PCP - General Internal Medicine 11/21/20 05/13/22 Tom White [address] [place] [address] PCP - General Internal Medicine 05/14/22 10/06/22 Marisela Goodrich MD [address] [place] [address] PCP - General Internal Medicine 10/07/22 documented as of this encounter
--- OUTSIDE RECORDS SUMMARY | 2025-01-13 12:35 | XMS_ITS | Encounter Summary ---
Author Organization [facility] Address [address] [place] [address] Care Team Providers Care Rhia Name Role Phone Alexandria Peñaloza MD Primary Care Provider Unava Kristy Rush MD Primary Care Provider Un available Alexandria Peñaloza MD Primary Care Provider Unava Tom Booker Primary Care Provider [phone] Marisela Goodrich MD Primary Care Provider + Encounter Details Date Type Department Care Team Description 02/09/2020 [facility] Medical Records [address] [place] [phone] Abstract, Provider Social History Tobacco Use Types [...] on filedocumented in this encounter Care Teams Rhia Relationship Specialty Start Date End Date Alexandria Peñaloza MD PCP - General 03/26/10 07/24/20 Kristy Castrejon MD PCP - General Internal Medicine 07/25/20 1 Alexandria Peñaloza MD PCP - General Internal Medicine 11/21/20 05/13/22 Tom White [address] [place] [address] PCP - General Internal Medicine 05/14/22 10/06/22 Marisela Goodrich MD [address] [place] [address] PCP - General Internal Medicine 10/07/22 documented as of this encounter
--- OUTSIDE RECORDS SUMMARY | 2025-01-13 12:36 | XMS_ITS | Encounter Summary ---
Author Organization [facility] Address [address] [place] [address] Care Team Providers Care Artist Color Separation Name Role Phone Alexandria Peñaloza MD Primary Care Provider Tom Jane Primary Care Provider [phone] Marisela Goodrich MD Primary Care Provider + Encounter Details Date Type Department Care Team Description 09/08/2021 Pt. Non Urgent Medic al Question Medicine/Pediatrics - [address] [phone] Kristy Castrejon MD Social History Tobacco Use [...] on filedocumented in this encounter Care Teams Artist Color Separation Relationship Specialty Start Date End Date Alexandria Peñaloza MD PCP - General Internal Medicine 11/21/20 05/13/22 Tom White [address] [place] [address] PCP - General Internal Medicine 05/14/22 10/06/22 Marisela Goodrich MD [address] [place] [address] PCP - General Internal Medicine 10/07/22 documented as of this encounter
--- OUTSIDE RECORDS SUMMARY | 2025-01-13 12:36 | XMS_ITS | Encounter Summary ---
Author Organization [facility] Address [address] [place] [address] Care Team Providers Care Customer Experience Intern Name Role Phone Alexandria Peñaloza MD Primary Care Provider Unava Kristy Rush MD Primary Care Provider Un available Alexandria Peñaloza MD Primary Care Provider Unava Tom Booker Primary Care Provider [phone] Marisela Goodrich MD Primary Care Provider + Encounter Details Date Type Department Care Team Description 06/14/2019 Telephone Medicine/Pediatrics - [address] [phone] Alexandria Peñaloza MD Social History Tobacco Use [...] filedocumented in this encounter Care Teams Customer Experience Intern Relationship Specialty Start Date End Date Alexandria Peñaloza MD PCP - General 03/26/10 07/24/20 Kristy Castrejon MD PCP - General Internal Medicine 07/25/20 1 Alexandria Peñaloza MD PCP - General Internal Medicine 11/21/20 05/13/22 Tom White [address] [place] [address] PCP - General Internal Medicine 05/14/22 10/06/22 Marisela Goodrich MD [address] [place] [address] PCP - General Internal Medicine 10/07/22 documented as of this encounter
--- OUTSIDE RECORDS SUMMARY | 2025-01-13 12:36 | XMS_ITS | Encounter Summary ---
Author Organization [facility] Address [address] [place] [address] Care Team Providers Care Chief Of Planning Name Role Phone Alexandria Peñaloza MD Primary Care Provider Unava Kristy Rush MD Primary Care Provider Un available Alexandria Peñaloza MD Primary Care Provider Unava Tom Booker Primary Care Provider [phone] Marisela Goodrich MD Primary Care Provider + Encounter Details Date Type Department Care Team Description 11/05/2016 [facility] Medical Records [address] [place] [phone] Ronnie Boyle MD Social History Tobacco Use [...] in this encounter Care Teams Chief Of Planning Relationship Specialty Start Date End Date Alexandria Peñaloza MD PCP - General 03/26/10 07/24/20 Kristy Castrejon MD PCP - General Internal Medicine 07/25/20 1 Alexandria Peñaloza MD PCP - General Internal Medicine 11/21/20 05/13/22 Tom White [address] [place] [address] PCP - General Internal Medicine 05/14/22 10/06/22 Marisela Goodrich MD [address] [place] [address] PCP - General Internal Medicine 10/07/22 documented as of this encounter
--- OUTSIDE RECORDS SUMMARY | 2025-01-13 12:36 | XMS_ITS | Encounter Summary ---
Author Organization [facility] Address [address] [place] [address] Care Team Providers Care Architecture Department Chair Name Role Phone Alexandria Peñaloza MD Primary Care Provider Unava Kristy Rush MD Primary Care Provider Un available Alexandria Peñaloza MD Primary Care Provider Unava ilable Tom White Primary Care Provider [phone] Marisela Goodrich MD Primary Care Provider + Reason for Visit * Reason Onset Date Comments Appointment Cancelled 10/02/2011 Encounter Details Date Type Department Care Team Description 10/02/2011 Telephone General Surgery [address] [place] [address] Prashant Ortiz MD [address] [place] [address] [phone] Appointment Cancelled Social History Tobacco Use Types [...] PM EST Patient cancled her appointment through [employer] stating she will call to reschedule this, [...] on filedocumented in this encounter Care Teams Architecture Department Chair Relationship Specialty Start Date End Date Alexandria Peñaloza MD PCP - General 03/26/10 07/24/20 Kristy Castrejon MD PCP - General Internal Medicine 07/25/20 1 Alexandria Peñaloza MD PCP - General Internal Medicine 11/21/20 05/13/22 Tom White [address] [place] [address] PCP - General Internal Medicine 05/14/22 10/06/22 Marisela Goodrich MD [address] [place] [address] PCP - General Internal Medicine 10/07/22 documented as of this encounter
--- OUTSIDE RECORDS SUMMARY | 2025-01-13 12:36 | XMS_ITS | Encounter Summary ---
Author Organization [facility] Address [address] [place] [address] Care Team Providers Care Pt Escort Name Role Phone Alexandria Peñaloza MD Primary Care Provider Unava Kristy Rush MD Primary Care Provider Un available Alexandria Peñaloza MD Primary Care Provider Unava ilable Tom White Primary Care Provider [phone] Marisela Goodrich MD Primary Care Provider + Encounter Details Date Type Department Care Team Description 05/09/2015 Automobile Racer Report Medical Records [address] [place] [phone] Peter Matias MD Social History Tobacco Use [...] on filedocumented in this encounter Care Teams Pt Escort Relationship Specialty Start Date End Date Alexandria Peñaloza MD PCP - General 03/26/10 07/24/20 Kristy Castrejon MD PCP - General Internal Medicine 07/25/20 1 Alexandria Peñaloza MD PCP - General Internal Medicine 11/21/20 05/13/22 Tom White [address] [place] [address] PCP - General Internal Medicine 05/14/22 10/06/22 Marisela Goodrich MD [address] [place] [address] PCP - General Internal Medicine 10/07/22 documented as of this encounter
--- OUTSIDE RECORDS SUMMARY | 2025-01-13 12:36 | XMS_ITS | Encounter Summary ---
Author Organization [facility] Address [address] [place] [address] Care Team Providers Care Manager Merchandising Name Role Phone Alexandria Peñaloza MD Primary Care Provider Unava Kristy Rush MD Primary Care Provider Un available Alexandria Peñaloza MD Primary Care Provider Unava ilTom Toscano Primary Care Provider [phone] Marisela Goodrich MD Primary Care Provider + Encounter Details Date Type Department Care Team Description 01/23/2017 Health Technical Writer Report Medical Records [address] [place] [phone] Stephen Reynolds MD Social History Tobacco Use [...] filedocumented in this encounter Care Teams Manager Merchandising Relationship Specialty Start Date End Date Alexandria Peñaloza MD PCP - General 03/26/10 07/24/20 Kristy Castrejon MD PCP - General Internal Medicine 07/25/20 1 Alexandria Peñaloza MD PCP - General Internal Medicine 11/21/20 05/13/22 Tom White [address] [place] [address] PCP - General Internal Medicine 05/14/22 10/06/22 Marisela Goodrich MD [address] [place] [address] PCP - General Internal Medicine 10/07/22 documented as of this encounter
--- OUTSIDE RECORDS SUMMARY | 2025-01-13 12:36 | XMS_ITS | Encounter Summary ---
Author Organization [facility] Address [address] [place] [address] Care Team Providers Care Sports Specialist Name Role Phone Alexandria Peñaloza MD Primary Care Provider UnaKristy Negro MD Primary Care Provider Un available Alexandria Peñaloza MD Primary Care Provider Tom Jane Primary Care Provider [phone] Marisela Goodrich MD Primary Care Provider + Encounter Details Date Type Department Care Team Description 04/17/2015 Hospital Medical Records [address] [place] [address] Tom White [address] [place] [address] Social History Tobacco Use Types Packs/Day Years [...] on filedocumented in this encounter Care Teams Sports Specialist Relationship Specialty Start Date End Date Alexandria Peñaloza MD PCP - General 03/26/10 07/24/20 Kristy Castrejon MD PCP - General Internal Medicine 07/25/20 1 Alexandria Peñaloza MD PCP - General Internal Medicine 11/21/20 05/13/22 Tom White [address] [place] [address] PCP - General Internal Medicine 05/14/22 10/06/22 Marisela Goodrich MD [address] [place] [address] PCP - General Internal Medicine 10/07/22 documented as of this encounter
--- OUTSIDE RECORDS SUMMARY | 2025-01-13 12:36 | XMS_ITS | Encounter Summary ---
Author Organization [facility] Address [address] [place] [address] Care Team Providers Care Rug Weaver Name Role Phone Alexandria Peñaloza MD Primary Care Provider Unava Kristy Rush MD Primary Care Provider Un available Alexandria Peñaloza MD Primary Care Provider Soniava Tom Booker Primary Care Provider [phone] Marisela Goodrich MD Primary Care Provider + Encounter Details Date Type Department Care Team Description 04/08/2017 Sql Manager Report Medical Records [address] [place] [phone] Marcus Cisneros Social History Tobacco Use Types [...] on filedocumented in this encounter Care Teams Rug Weaver Relationship Specialty Start Date End Date Alexandria Peñaloza MD PCP - General 03/26/10 07/24/20 Kristy Castrejon MD PCP - General Internal Medicine 07/25/20 1 Alexandria Peñaloza MD PCP - General Internal Medicine 11/21/20 05/13/22 Tom White [address] [place] [address] PCP - General Internal Medicine 05/14/22 10/06/22 Marisela Goodrich MD [address] [place] [address] PCP - General Internal Medicine 10/07/22 documented as of this encounter
--- OUTSIDE RECORDS SUMMARY | 2025-01-13 12:36 | XMS_ITS | Encounter Summary ---
Author Organization [facility] Address [address] [place] [address] Care Team Providers Care Supervisor Tumbling And Rolling Name Role Phone Alexandria Peñaloza MD Primary Care Provider Unava Kristy Rush MD Primary Care Provider Un available Alexandria Peñaloza MD Primary Care Provider Unava Tom Booker Primary Care Provider [phone] Marisela Goodrich MD Primary Care Provider + Reason for Referral * EXTERNAL (Routine) - Authorized/Booked Specialty Diagnoses / Procedures Referred By Caitie frye Referred To Contact Mental Health Procedures REFERRAL TO BEHAVIORAL HEALTH Alexandria Peñaloza MD [address] [place] [address] Default, Provider Referral ID Status Reason Start Date Expiration Date V isits Requested Visits Authorized SEE NOTE Authorized/B ooked 11/21/2017 02/22/2018 1 1 Reason for Visit * Reason Onset Date Comments Route Delivery Driver Feedback 11/18/2017 Sandy Irwin hton Encounter Details Date Type Department Care Team Description 11/18/2017 Telephone Medicine/Pediatrics - [address] [phone] Alexandria Peñaloza MD Route Delivery Driver Feedback (Sandy Santana) Social History Tobacco Use [...] if denied. Thank you, Naida Referrals Coordinator [facility] Referrals Department documented in this encounter Plan of Treatment Not on file documented as of this encounter Visit Diagnoses Not on filedocumented in this encounter Care Teams Supervisor Tumbling And Rolling Relationship Specialty Start Date End Date Alexandria Peñaloza MD PCP - General 03/26/10 07/24/20 Kristy Castrejon MD PCP - General Internal Medicine 07/25/20 1 Alexandria Peñaloza MD PCP - General Internal Medicine 11/21/20 05/13/22 Tom White [address] [place] [address] PCP - General Internal Medicine 05/14/22 10/06/22 Marisela Goodrich MD [address] [place] [address] PCP - General Internal Medicine 10/07/22 documented as of this encounter
--- OUTSIDE RECORDS SUMMARY | 2025-01-13 12:36 | XMS_ITS | Encounter Summary ---
Author Organization [facility] Address [address] [place] [address] Care Team Providers Care Pesticide Use Medical Coordinator Name Role Phone Alexandria Peñaloza MD Primary Care Provider Unava Kristy Rush MD Primary Care Provider Un available Alexandria Peñaloza MD Primary Care Provider Unava ilTom Toscano Primary Care Provider [phone] Marisela Goodrich MD Primary Care Provider + Encounter Details Date Type Department Care Team Description 12/17/2011 Engineering Teacher Report Medical Records [address] [place] [address] Reji Hensley [address] [place] [address] Social History Tobacco Use Types Packs/Day Years [...] on filedocumented in this encounter Care Teams Pesticide Use Medical Coordinator Relationship Specialty Start Date End Date Alexandria Peñaloza MD PCP - General 03/26/10 07/24/20 Kristy Castrejon MD PCP - General Internal Medicine 07/25/20 1 Alexandria Peñaloza MD PCP - General Internal Medicine 11/21/20 05/13/22 Tom White [address] [place] [address] PCP - General Internal Medicine 05/14/22 10/06/22 Marisela Goodrich MD [address] [place] [address] PCP - General Internal Medicine 10/07/22 documented as of this encounter
--- OUTSIDE RECORDS SUMMARY | 2025-01-13 12:36 | XMS_ITS | Encounter Summary ---
Author Organization [facility] Address [address] [place] [address] Care Team Providers Care Integrated Marketing Intern Name Role Phone Alexandria Peñaloza MD Primary Care Provider Unava Kristy Rush MD Primary Care Provider Un available Alexandria Peñaloza MD Primary Care Provider Unava Tom Booker Primary Care Provider [phone] Marisela Goodrich MD Primary Care Provider + Encounter Details Date Type Department Care Team Description 06/24/2011 Trail Construction Worker Report Medical Records [address] [place] [phone] Sam Tinsley MD Social History Tobacco Use [...] on filedocumented in this encounter Care Teams Integrated Marketing Intern Relationship Specialty Start Date End Date Alexandria Peñaloza MD PCP - General 03/26/10 07/24/20 Kristy Castrejon MD PCP - General Internal Medicine 07/25/20 1 Alexandria Peñaloza MD PCP - General Internal Medicine 11/21/20 05/13/22 Tom White [address] [place] [address] PCP - General Internal Medicine 05/14/22 10/06/22 Marisela Goodrich MD [address] [place] [address] PCP - General Internal Medicine 10/07/22 documented as of this encounter
--- OUTSIDE RECORDS SUMMARY | 2025-01-13 12:36 | XMS_ITS | Encounter Summary ---
Author Organization [facility] Address [address] [place] [address] Care Team Providers Care Prosthetic Aides Teacher Name Role Phone Alexandria Peñaloza MD Primary Care Provider Unava Kristy Rush MD Primary Care Provider Un available Alexandria Peñaloza MD Primary Care Provider Unava Tom Booker Primary Care Provider [phone] Marisela Goodrich MD Primary Care Provider + Encounter Details Date Type Department Care Team Description 12/16/2016 Hospital Medical Records [address] [place] [phone] Savannah Enamorado DO Social History Tobacco Use [...] on filedocumented in this encounter Care Teams Prosthetic Aides Teacher Relationship Specialty Start Date End Date Alexandria Peñaloza MD PCP - General 03/26/10 07/24/20 Kristy Castrejon MD PCP - General Internal Medicine 07/25/20 1 Alexandria Peñaloza MD PCP - General Internal Medicine 11/21/20 05/13/22 Tmo White [address] [place] [address] PCP - General Internal Medicine 05/14/22 10/06/22 Marisela Goodrich MD [address] [place] [address] PCP - General Internal Medicine 10/07/22 documented as of this encounter
--- OUTSIDE RECORDS SUMMARY | 2025-01-13 12:36 | XMS_ITS | Encounter Summary ---
Author Organization [facility] Address [address] [place] [address] Care Team Providers Care Director Safety Council Name Role Phone Alexandria Peñaloza MD Primary Care Provider Unava Kristy Rush MD Primary Care Provider Un available Alexandria Peñaloza MD Primary Care Provider Unava ilable Tom White Primary Care Provider [phone] Marisela Goodrich MD Primary Care Provider + Reason for Visit * Reason Comments E-prescribe Rx Request Encounter Details Date Type Department Care Team Description 03/23/2014 Refill Medicine/Pediatrics - [address] [phone] Alexandria Peñaloza MD E-prescribe Rx Request Social [...] insurance carrier is: [place] Plan[place] Product Type: MEDICAIDFEE-FOR-SERVICE documented in this encounter Plan of Treatment Not on file documented as of this encounter Visit Diagnoses Not on filedocumented in this encounter Care Teams Director Safety Council Relationship Specialty Start Date End Date Alexandria Peñaloza MD PCP - General 03/26/10 07/24/20 Kristy Castrejon MD PCP - General Internal Medicine 07/25/20 1 Alexandria Peñaloza MD PCP - General Internal Medicine 11/21/20 05/13/22 Tom White [address] [place] [address] PCP - General Internal Medicine 05/14/22 10/06/22 Marisela Goodrich MD [address] [place] [address] [id number] PCP - General Internal Medicine 10/07/22 documented as of this encounter
--- OUTSIDE RECORDS SUMMARY | 2025-01-13 12:36 | XMS_ITS | Encounter Summary ---
Author Organization [facility] Address [address] [place] [address] Care Team Providers Care Mechanical Engineering Professor Name Role Phone Alexandria Peñaloza MD Primary Care Provider Unava Kristy Rush MD Primary Care Provider Un available Alexandria Peñaloza MD Primary Care Provider Unava Tom Booker Primary Care Provider [phone] Marisela Goodrich MD Primary Care Provider + Encounter Details Date Type Department Care Team Description 05/04/2014 [facility] Medical Records [address] [place] [phone] Sam Leary, DANTE Social History Tobacco Use [...] on filedocumented in this encounter Care Teams Mechanical Engineering Professor Relationship Specialty Start Date End Date Alexandria Peñaloza MD PCP - General 03/26/10 07/24/20 Kristy Castrejon MD PCP - General Internal Medicine 07/25/20 1 Alexandria Peñaloza MD PCP - General Internal Medicine 11/21/20 05/13/22 Tom White [address] [place] [address] PCP - General Internal Medicine 05/14/22 10/06/22 Marisela Goodrich MD [address] [place] [address] PCP - General Internal Medicine 10/07/22 documented as of this encounter
--- OUTSIDE RECORDS SUMMARY | 2025-01-13 12:36 | XMS_ITS | Encounter Summary ---
Author Organization [facility] Address [address] [place] [address] Care Team Providers Care Collar Turner Name Role Phone Alexandria Peñaloza MD Primary Care Provider Unava Kristy Rush MD Primary Care Provider Un available Alexandria Peñaloza MD Primary Care Provider Unava Tom Booker Primary Care Provider [phone] Marisela Goodrich MD Primary Care Provider + Encounter Details Date Type Department Care Team Description 09/01/2019 [facility] Medical Records [address] [place] [address] Ayesha Weaver MD Social History Tobacco Use [...] on filedocumented in this encounter Care Teams Collar Turner Relationship Specialty Start Date End Date Alexandria Peñaloza MD PCP - General 03/26/10 07/24/20 Kristy Castrejon MD PCP - General Internal Medicine 07/25/20 1 Alexandria Peñaloza MD PCP - General Internal Medicine 11/21/20 05/13/22 Tom White [address] [place] [address] PCP - General Internal Medicine 05/14/22 10/06/22 Marisela Goodrich MD [address] [place] [address] PCP - General Internal Medicine 10/07/22 documented as of this encounter
--- OUTSIDE RECORDS SUMMARY | 2025-01-13 12:36 | XMS_ITS | Encounter Summary ---
Author Organization [facility] Address [address] [place] [address] Care Team Providers Care Timber Girdler Name Role Phone Alexandria Peñaloza MD Primary Care Provider Unava Kristy Rush MD Primary Care Provider Un available Alexandria Peñaloza MD Primary Care Provider Unava Tom Booker Primary Care Provider [phone] Marisela Goodrich MD Primary Care Provider + Encounter Details Date Type Department Care Team Description 09/12/2019 Pt. Non Urgent Medical Question EXHIBITION DESIGNER - [address] [address] [place], ANUM [address] [place] [address] Social History Tobacco Use Types [...] on filedocumented in this encounter Care Teams Timber Girdler Relationship Specialty Start Date End Date Alexandria Peñaloza MD PCP - General 03/26/10 07/24/20 Kristy Castrejon MD PCP - General Internal Medicine 07/25/20 1 Alexandria Peñaloza MD PCP - General Internal Medicine 11/21/20 05/13/22 Tom White [address] [place] [address] PCP - General Internal Medicine 05/14/22 10/06/22 Marisela Goodrich MD [address] [place] [address] PCP - General Internal Medicine 10/07/22 documented as of this encounter
--- OUTSIDE RECORDS SUMMARY | 2025-01-13 12:36 | XMS_ITS | Encounter Summary ---
Author Organization [facility] Address [address] [place] [address] Care Team Providers Care Dining Service Inspector Name Role Phone Alexandria Peñaloza MD Primary Care Provider Unava Kristy Rush MD Primary Care Provider Un available Alexandria Peñaloza MD Primary Care Provider Soniava Tom Booker Primary Care Provider [phone] Marisela Goodrich MD Primary Care Provider + Encounter Details Date Type Department Care Team Description 10/22/2019 Release of Information Medical Records [address] [place] [address] Abstract, Provider Social History Tobacco Use Types [...] on filedocumented in this encounter Care Teams Dining Service Inspector Relationship Specialty Start Date End Date Alexandria Peñaloza MD PCP - General 03/26/10 07/24/20 Kristy Castrejon MD PCP - General Internal Medicine 07/25/20 1 Alexandria Peñaloza MD PCP - General Internal Medicine 11/21/20 05/13/22 Tom White [address] [place] [address] PCP - General Internal Medicine 05/14/22 10/06/22 Marisela Goodrich MD [address] [place] [address] PCP - General Internal Medicine 10/07/22 documented as of this encounter
--- OUTSIDE RECORDS SUMMARY | 2025-01-13 12:36 | XMS_ITS | Encounter Summary ---
Author Organization [facility] Address [address] [place] [address] Care Team Providers Care Bicycle Subassembler Name Role Phone Alexandria Peñaloza MD Primary Care Provider Tom Jane Primary Care Provider [phone] Marisela Goodrich MD Primary Care Provider + Encounter Details Date Type Department Care Team Description 07/09/2021 [facility] Medical Records [address] [place] [address] Abstract, Provider Social History Tobacco Use Types [...] filedocumented in this encounter Care Teams Bicycle Subassembler Relationship Specialty Start Date End Date Alexandria Peñaloza MD PCP - General Internal Medicine 11/21/20 05/13/22 Tom White [address] [place], [place] [id number] PCP - General Internal Medicine 05/14/22 10/06/22 Marisela Goodrich MD [address] [place] [address] PCP - General Internal Medicine 10/07/22 documented as of this encounter
--- OUTSIDE RECORDS SUMMARY | 2025-01-13 12:36 | XMS_ITS | Encounter Summary ---
Author Organization [facility] Address [address] [place] [address] Care Team Providers Care Political Theory Professor Name Role Phone Alexandria Peñaloza MD Primary Care Provider Kristy Milan MD Primary Care Provider Un available Alexandria Peñaloza MD Primary Care Provider Soniava Tom Booker Primary Care Provider [phone] Marisela Goodrich MD Primary Care Provider + Encounter Details Date Type Department Care Team Description 04/18/2017 [facility] Medical Records [address] [place] [address] Social History Tobacco Use Types Packs/Day Years [...] on filedocumented in this encounter Care Teams Political Theory Professor Relationship Specialty Start Date End Date Alexandria Peñaloza MD PCP - General 03/26/10 07/24/20 Kristy Castrejon MD PCP - General Internal Medicine 07/25/20 1 Alexandria Peñaloza MD PCP - General Internal Medicine 11/21/20 05/13/22 Tom White [address] [place] [address] PCP - General Internal Medicine 05/14/22 10/06/22 Marisela Goodrich MD [address] [place] [address] PCP - General Internal Medicine 10/07/22 documented as of this encounter
--- OUTSIDE RECORDS SUMMARY | 2025-01-13 12:36 | XMS_ITS | Encounter Summary ---
Author Organization [facility] Address [address] [place] [address] Care Team Providers Care Battery Container Finishing Hand Name Role Phone Alexandria Peñaloza MD Primary Care Provider Unava Kristy Rush MD Primary Care Provider Un available Alexandria Peñaloza MD Primary Care Provider Unava ilTom Toscano Primary Care Provider [phone] Marisela Goodrich MD Primary Care Provider + Encounter Details Date Type Department Care Team Description 09/02/2019 [facility] Medical Records [address] [place] [address] Juanjose Connell MD Social History Tobacco Use [...] on filedocumented in this encounter Care Teams Battery Container Finishing Hand Relationship Specialty Start Date End Date Alexandria Peñaloza MD PCP - General 03/26/10 07/24/20 Kristy Castrejon MD PCP - General Internal Medicine 07/25/20 1 Alexandria Peñaloza MD PCP - General Internal Medicine 11/21/20 05/13/22 Tom White [address] [place] [address] PCP - General Internal Medicine 05/14/22 10/06/22 Marisela Goodrich MD [address] [place] [address] PCP - General Internal Medicine 10/07/22 documented as of this encounter
--- OUTSIDE RECORDS SUMMARY | 2025-01-13 12:36 | XMS_ITS | Encounter Summary ---
Author Organization [facility] Address [address] [place] [address] Care Team Providers Care Dental Lab Technician Name Role Phone Alexandria Peñaloza MD Primary Care Provider Unava Kristy Rush MD Primary Care Provider Un available Alexandria Peñaloza MD Primary Care Provider Unava Tom Booker Primary Care Provider [phone] Marisela Goodrich MD Primary Care Provider + Encounter Details Date Type Department Care Team Description 09/02/2019 [facility] Medical Records [address] [place] [address] Beatriz Farrell NP Social History Tobacco Use [...] on filedocumented in this encounter Care Teams Dental Lab Technician Relationship Specialty Start Date End Date Alexandria Peñaloza MD PCP - General 03/26/10 07/24/20 Kristy Castrejon MD PCP - General Internal Medicine 07/25/20 1 Alexandria Peñaloza MD PCP - General Internal Medicine 11/21/20 05/13/22 Tom White [address] [place] [address] PCP - General Internal Medicine 05/14/22 10/06/22 Marisela Goodrich MD [address] [place] [address] PCP - General Internal Medicine 10/07/22 documented as of this encounter
--- OUTSIDE RECORDS SUMMARY | 2025-01-13 12:36 | XMS_ITS | Clinical Summary ---
Author Organization [facility] Address [address] [address] Care Team Providers Care Sports Psychologist Name Role Phone Tom White MD Primary [...] Vaccine (#1) 2024 09/22/2018, 2016 Insurance [place] Care Teams Sports Psychologist Relationship Specialty Start Date End Date Tom White MD [address] [place] [address] PCP - [facility] 02/14/23
--- OUTSIDE RECORDS SUMMARY | 2025-01-13 12:36 | XMS_ITS | Encounter Summary ---
Author Organization [facility] Address [address] [place] [address] Care Team Providers Care Superintendent Pressure Name Role Phone Alexandria Peñaloza MD Primary Care Provider Unava Kristy Rush MD Primary Care Provider Un available Alexandria Peñaloza MD Primary Care Provider Unava Tom Booker Primary Care Provider [phone] Marisela Goodrich MD Primary Care Provider + Encounter Details Date Type Department Care Team Description 08/13/[address] [facility] [address] [place] [address] Md Adis Social History Tobacco Use Types [...] on filedocumented in this encounter Care Teams Superintendent Pressure Relationship Specialty Start Date End Date Alexandria Peñaloza MD PCP - General 03/26/10 07/24/20 Kristy Castrejon MD PCP - General Internal Medicine 07/25/20 1 Alexandria Peñaloza MD PCP - General Internal Medicine 11/21/20 05/13/22 Tom White [address] [place] [address] PCP - General Internal Medicine 05/14/22 10/06/22 Marisela Goodrich MD [address] [place] [address] PCP - General Internal Medicine 10/07/22 documented as of this encounter
--- OUTSIDE RECORDS SUMMARY | 2025-01-13 12:36 | XMS_ITS | Encounter Summary ---
Author Organization [facility] Address [address] [place] [address] Care Team Providers Care Cutter Aluminum Sheet Name Role Phone Alexandria Peñaloza MD Primary Care Provider Unava Kristy Rush MD Primary Care Provider Un available Alexandria Peñaloza MD Primary Care Provider Unava Tom Booker Primary Care Provider [phone] Marisela Goodrich MD Primary Care Provider + Reason for Visit * Reason Onset Date Comments Colitis 03/12/2017 Encounter Details Date Type Department Care Team Description 03/12/2017 Telephone Medicine/Pediatrics - [address] [id number] Alexandria Peñaloza MD Colitis Social History Tobacco [...] on filedocumented in this encounter Care Teams Cutter Aluminum Sheet Relationship Specialty Start Date End Date Alexandria Peñaloza MD PCP - General 03/26/10 07/24/20 Kristy Castrejon MD PCP - General Internal Medicine 07/25/20 1 Alexandria Peñaloza MD PCP - General Internal Medicine 11/21/20 05/13/22 Tom White [address] [place] [address] PCP - General Internal Medicine 05/14/22 10/06/22 Marisela Goodrich MD [address] [place] [address] PCP - General Internal Medicine 10/07/22 documented as of this encounter
--- OUTSIDE RECORDS SUMMARY | 2025-01-13 12:36 | XMS_ITS | Encounter Summary ---
Author Organization [facility] Address [address] [place] [address] Care Team Providers Care Equipment Operator Warehouse Name Role Phone Alexandria Peñaloza MD Primary Care Provider UnaKristy Negro MD Primary Care Provider Un available Alexandria Peñaloza MD Primary Care Provider Soniava Tom Booker Primary Care Provider [phone] Marisela Goodrich MD Primary Care Provider + Encounter Details Date Type Department Care Team Description 10/02/2011 [facility] Report Medical Records [address] [place] [address] Mushtaq Cerda MD Social History Tobacco Use [...] filedocumented in this encounter Care Teams Equipment Operator Warehouse Relationship Specialty Start Date End Date Alexandria Peñaloza MD PCP - General 03/26/10 07/24/20 Kristy Castrejon MD PCP - General Internal Medicine 07/25/20 1 Alexandria Peñaloza MD PCP - General Internal Medicine 11/21/20 05/13/22 Tom White [address] [place] [address] PCP - General Internal Medicine 05/14/22 10/06/22 Marisela Goodrich MD [address] [place] [address] PCP - General Internal Medicine 10/07/22 documented as of this encounter
--- OUTSIDE RECORDS SUMMARY | 2025-01-13 12:36 | XMS_ITS | Encounter Summary ---
Author Organization [facility] Address [address] [place] [address] Care Team Providers Care Delivery Specialist Name Role Phone Alexandria Peñaloza MD Primary Care Provider Unava Kristy Rush MD Primary Care Provider Un available Alexandria Peñaloza MD Primary Care Provider Soniava Tom Booker Primary Care Provider [phone] Marisela Goodrich MD Primary Care Provider + Encounter Details Date Type Department Care Team Description 12/02/2014 Hereditary Cancer Qu iz Results Medical Records [address] [place] [address] Abstract, Provider Social History Tobacco Use Types [...] filedocumented in this encounter Care Teams Delivery Specialist Relationship Specialty Start Date End Date Alexandria Peñaloza MD PCP - General 03/26/10 07/24/20 Kristy Castrejon MD PCP - General Internal Medicine 07/25/20 1 Alexandria Peñaloza MD PCP - General Internal Medicine 11/21/20 05/13/22 Tom White [address] [place] [address] PCP - General Internal Medicine 05/14/22 10/06/22 Marisela Goodrich MD [address] [place] [address] PCP - General Internal Medicine 10/07/22 documented as of this encounter
--- OUTSIDE RECORDS SUMMARY | 2025-01-13 12:36 | XMS_ITS | Encounter Summary ---
Author Organization [facility] Address [address] [place] [address] Care Team Providers Care Slasher Tender Helper Name Role Phone Alexandria Peñaloza MD Primary Care Provider Unava Kristy Rush MD Primary Care Provider Un available Alexandria Peñaloza MD Primary Care Provider Unava Tom Booker Primary Care Provider [phone] Marisela Goodrich MD Primary Care Provider + Encounter Details Date Type Department Care Team Description 10/05/2019 Telephone [employer] - [employer] [id number] Robel Marks MD Social History Tobacco Use [...] salpingo-oophorectomy has been scheduled on 12/20/2019 at [facility] with Dr. Marks. 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 Pt accepted. Will forward info to [facility]. AM * Telephone Encounter - Robel Marks MD - 10/05/2019 5:43 PM EST WELL LOGGING OPERATOR MUD ANALYSIS SURGICAL BOOKING WORKSHEET 10/05/2019 Patient's Name: Sandy Santana : 1985 Payor information: Payor: [facility] [employer] [place] / Plan: [facility] / Product Type: MEDICAID [id number] Allergies: [...] Anesthesia: general Stay: Outpatient in a bed Location:[facility] Dobby Loom Fixer Needed? YES Time Needed: 3 hours Urgency: elective Medicaid Sterilization (within 30 days - 180 days) and/or Medicare HI-1 form signed, if needed? no Date signed? Patient has had a tubal ligation Medical Clearance? YES Pre Op PIGMENT PRESSER visit: YES Pap Needed at Pre Op [...] EST [facility] Comment: If patient is -[place], multiply result by 1.21 Chronic Kidney Disease: [...] anemia documented in this encounter Care Teams Slasher Tender Helper Relationship Specialty Start Date End Date Alexandria Peñaloza MD PCP - General 03/26/10 07/24/20 Kristy Castrejon MD PCP - General Internal Medicine 07/25/20 1 Alexandria Peñaloza MD PCP - General Internal Medicine 11/21/20 05/13/22 Tom White [address] [place] [address] PCP - General Internal Medicine 05/14/22 10/06/22 Marisela Goodrich MD [address] [place] [address] PCP - General Internal Medicine 10/07/22 documented as of this encounter
--- OUTSIDE RECORDS SUMMARY | 2025-01-13 12:36 | XMS_ITS | Encounter Summary ---
Author Organization [facility] Address [address] [place] [address] Care Team Providers Care Medical Records Custodian Name Role Phone Alexandria Peñaloza MD Primary Care Provider Unava Kristy Rush MD Primary Care Provider Un available Alexandria Peñaloza MD Primary Care Provider Soniava Tom Booker Primary Care Provider [phone] Marisela Goodrich MD Primary Care Provider + Encounter Details Date Type Department Care Team Description 07/17/2017 [facility] Medical Records [address] [place] [address] Abstract, Provider Social History Tobacco Use Types [...] filedocumented in this encounter Care Teams Medical Records Custodian Relationship Specialty Start Date End Date Alexandria Peñaloza MD PCP - General 03/26/10 07/24/20 Kristy Castrejon MD PCP - General Internal Medicine 07/25/20 1 Alexandria Peñaloza MD PCP - General Internal Medicine 11/21/20 05/13/22 Tom White [address] [place] [address] PCP - General Internal Medicine 05/14/22 10/06/22 Marisela Goodrich MD [address] [place] [address] PCP - General Internal Medicine 10/07/22 documented as of this encounter
--- OUTSIDE RECORDS SUMMARY | 2025-01-13 12:36 | XMS_ITS | Encounter Summary ---
Author Organization [facility] Address [address] [place] [address] Care Team Providers Care Manager Category Name Role Phone Alexandria Peñaloza MD Primary Care Provider Unava Kristy Rush MD Primary Care Provider Un available Alexandria Peñaloza MD Primary Care Provider Unava ilTom Toscano Primary Care Provider [phone] Marisela Goodrich MD Primary Care Provider + Encounter Details Date Type Department Care Team Description 11/21/2016 Precision Instrument Maker Report Medical Records [address] [place] [address] Stephen Reynolds MD Social History Tobacco Use [...] filedocumented in this encounter Care Teams Manager Category Relationship Specialty Start Date End Date Alexandria Peñaloza MD PCP - General 03/26/10 07/24/20 Kristy Castrejon MD PCP - General Internal Medicine 07/25/20 1 Alexandria Peñaloza MD PCP - General Internal Medicine 11/21/20 05/13/22 Tom White [address] [place] [address] PCP - General Internal Medicine 05/14/22 10/06/22 Marisela Goodrich MD [address] [place] [address] PCP - General Internal Medicine 10/07/22 documented as of this encounter
--- OUTSIDE RECORDS SUMMARY | 2025-01-13 12:36 | XMS_ITS | Encounter Summary ---
Author Organization [facility] Address [address] [place] [address] Care Team Providers Care Supervisor Inspection And Testing Name Role Phone Alexandria Peñaloza MD Primary Care Provider Tom Jane Primary Care Provider [phone] Marisela Goodrich MD Primary Care Provider + Encounter Details Date Type Department Care Team Description 12/17/2021 Orders Only Medical Records [address] [place] [address] Aye Ortega, ANIA [address] [place] [address] Social History Tobacco Use Types Packs/Day Years [...] Associated Diagnosis Comments OUTSIDE SLEEP STUDY Routine 12/11/2021 documented in this encounter Results * OUTSIDE SLEEP STUDY (12/11/2021) Aye Ortega PA-C PULMONOLOGY documented in this encounter Visit Diagnoses Not on filedocumented in this encounter Care Teams Supervisor Inspection And Testing Relationship Specialty Start Date End Date Alexandria Peñaloza MD PCP - General Internal Medicine 11/21/20 05/13/22 Tom White [address] [place] [address] PCP - General Internal Medicine 05/14/22 10/06/22 Marisela Goodrich MD [address] [place] [address] PCP - General Internal Medicine 10/07/22 documented as of this encounter
--- OUTSIDE RECORDS SUMMARY | 2025-01-13 12:36 | XMS_ITS | Encounter Summary ---
Author Organization [facility] Address [address] [place] [address] Care Team Providers Care Tubular Products Fabricator Name Role Phone Alexandria Peñaloza MD Primary Care Provider Kristy Milan MD Primary Care Provider Un available Alexandria Peñaloza MD Primary Care Provider Soniava Tom Booker Primary Care Provider [phone] Marisela Goodrich MD Primary Care Provider + Encounter Details Date Type Department Care Team Description 06/21/2019 [facility] Medical Records [address] [place] [address] Social History Tobacco Use Types Packs/Day Years [...] on filedocumented in this encounter Care Teams Tubular Products Fabricator Relationship Specialty Start Date End Date Alexandria Peñaloza MD PCP - General 03/26/10 07/24/20 Kristy Castrejon MD PCP - General Internal Medicine 07/25/20 1 Alexandria Peñaloza MD PCP - General Internal Medicine 11/21/20 05/13/22 Tom White [address] [place] [address] PCP - General Internal Medicine 05/14/22 10/06/22 Marisela Goodrich MD [address] [place] [address] PCP - General Internal Medicine 10/07/22 documented as of this encounter
--- OUTSIDE RECORDS SUMMARY | 2025-01-13 12:36 | XMS_ITS | Encounter Summary ---
Author Organization [facility] Address [address] [place] [address] Care Team Providers Care Customs Investigator Name Role Phone Alexandria Peñaloza MD Primary Care Provider Unava Kristy Rush MD Primary Care Provider Un available Alexandria Peñaloza MD Primary Care Provider Unava Tom Booker Primary Care Provider [phone] Marisela Goodrich MD Primary Care Provider + Encounter Details Date Type Department Care Team Description 07/01/2017 [place] Medicine/Pediatrics - [address] [phone] Alexandria Peñaloza MD Social History Tobacco Use [...] on filedocumented in this encounter Care Teams Customs Investigator Relationship Specialty Start Date End Date Alexandria Peñaloza MD PCP - General 03/26/10 07/24/20 Kristy Castrejon MD PCP - General Internal Medicine 07/25/20 1 Alexandria Peñaloza MD PCP - General Internal Medicine 11/21/20 05/13/22 Tom White [address] [place] [address] PCP - General Internal Medicine 05/14/22 10/06/22 Marisela Goodrich MD [address] [place] [address] PCP - General Internal Medicine 10/07/22 documented as of this encounter
--- OUTSIDE RECORDS SUMMARY | 2025-01-13 12:36 | XMS_ITS | Encounter Summary ---
Author Organization [facility] Address [address] [place] [address] Care Team Providers Care Barbering Teacher Name Role Phone Alexandria Peñaloza MD Primary Care Provider Unava Kristy Rush MD Primary Care Provider Un available Alexandria Peñaloza MD Primary Care Provider Unava ilTom Toscano Primary Care Provider [phone] Marisela Goodrich MD Primary Care Provider + Encounter Details Date Type Department Care Team Description 11/05/2016 Lead Programmer Report Medical Records [address] [place] [address] Yoel Rogers Np Social History Tobacco Use [...] on filedocumented in this encounter Care Teams Barbering Teacher Relationship Specialty Start Date End Date Alexandria Peñaloza MD PCP - General 03/26/10 07/24/20 Kristy Castrejon MD PCP - General Internal Medicine 07/25/20 1 Alexandria Peñaloza MD PCP - General Internal Medicine 11/21/20 05/13/22 Tom White [address] [place] [address] PCP - General Internal Medicine 05/14/22 10/06/22 Marisela Goodrich MD [address] [place] [address] PCP - General Internal Medicine 10/07/22 documented as of this encounter
--- OUTSIDE RECORDS SUMMARY | 2025-01-13 12:36 | XMS_ITS | Encounter Summary ---
Author Organization [facility] Address [address] [place] [address] Care Team Providers Care Hide And Skin Fleshing Machine Operator Name Role Phone Alexandria Peñaloza MD Primary Care Provider UnaKristy Negro MD Primary Care Provider Un available Alexandria Peñaloza MD Primary Care Provider Unava Tom Booker Primary Care Provider [phone] Marisela Goodrich MD Primary Care Provider + Encounter Details Date Type Department Care Team Description 12/31/2011 Pt. Referral [facility] [address] [place] [address] Md Adis Social History Tobacco Use Types [...] on filedocumented in this encounter Care Teams Hide And Skin Fleshing Machine Operator Relationship Specialty Start Date End Date Alexandria Peñaloza MD PCP - General 03/26/10 07/24/20 Kristy Castrejon MD PCP - General Internal Medicine 07/25/20 1 Alexandria Peñaloza MD PCP - General Internal Medicine 11/21/20 05/13/22 Tom White [address] [place] [address] PCP - General Internal Medicine 05/14/22 10/06/22 Marisela Goodrich MD [address] [place] [address] PCP - General Internal Medicine 10/07/22 documented as of this encounter
--- OUTSIDE RECORDS SUMMARY | 2025-01-13 12:36 | XMS_ITS | Encounter Summary ---
Author Organization [facility] Address [address] [place] [address] Care Team Providers Care Copyright Clerk Name Role Phone Alexandria Peñaloza MD Primary Care Provider Unava Kristy Rush MD Primary Care Provider Un available Alexandria Peñaloza MD Primary Care Provider Unava Tom Booker Primary Care Provider [phone] Marisela Goodrich MD Primary Care Provider + Encounter Details Date Type Department Care Team Description 08/31/2019 [facility] Medical Records [address] [place] [id number] [place] [address] Social History Tobacco Use Types Packs/Day Years [...] on filedocumented in this encounter Care Teams Copyright Clerk Relationship Specialty Start Date End Date Alexandria Peñaloza MD PCP - General 03/26/10 07/24/20 Kristy Castrejon MD PCP - General Internal Medicine 07/25/20 1 Alexandria Peñaloza MD PCP - General Internal Medicine 11/21/20 05/13/22 Tom White [address] [place] [address] PCP - General Internal Medicine 05/14/22 10/06/22 Marisela Goodrich MD [address] [place] [address] PCP - General Internal Medicine 10/07/22 documented as of this encounter
--- OUTSIDE RECORDS SUMMARY | 2025-01-13 12:36 | XMS_ITS | Encounter Summary ---
Author Organization [facility] Address [address] [place] [address] Care Team Providers Care Restaurant Host/Hostess Name Role Phone Alexandria Peñaloza MD Primary Care Provider Unava Kristy Rush MD Primary Care Provider Un available Alexandria Peñaloza MD Primary Care Provider Unava ilable Tom White Primary Care Provider [phone] Marisela Goodrich MD Primary Care Provider + Reason for Referral * EXTERNAL (Routine) - Authorized/Booked Specialty Diagnoses / Procedures Referred By Contact Referred To Contact Obstetrics/Gynecology / Obstetrics & Gynecology Procedures REFERRAL TO OBSTETRICS & GYNECOLOGY Alexandria Peñaloza MD [address] [place] [address] [facility] [address] [place] [address] Referral ID Status Reason Start Date Expiration Date V isits Requested Visits Authorized SEE NOTE Authorized/B ooked 04/18/2017 07/25/2017 1 1 Reason for Visit * Reason Onset Date Comments Commodity Broker Feedback 04/18/2017 MYKEL ORANTES Encounter Details Date Type Department Care Team Description 04/18/2017 Telephone Medicine/Pediatrics - [address] [phone] Alexandria Peñaloza MD Commodity Broker Feedback (MYKEL ORANTES) Social History Tobacco Use [...] 11:44 AM EDT Pts call came into [facility] pt services. Explained to pt about her [place] health coverage and that she is now assigned to the [facility] via the PCC plan. Pt understands [...] / Plan: MEDICAID PCC / Product Type:MEDICAID [id number] Effective 08/17/09: BCBS will not retro referral [...] insurance must be obtained and registered in [facility] or their referral can not be processed. Is this a retro request? NO. If yes for what date of service do you need the retro referral? N/A Who is calling to request this referral? MYKEL CORRIGAN HUB BANDER If the caller is not the patient, [...] YES Is this visit:Initial Visit Address of Specialist:[address] [place] [address] Phone # of Specialist:[phone] Fax #: (if applicable):[phone] Does patient have an appointment scheduled?: YES Date of appointment- (including a retro-request): 04/21/17 Is this appointment related to: Not MVA, WC or Surgery related documented in this encounter Plan of Treatment Not on file documented as of this encounter Visit Diagnoses Not on filedocumented in this encounter Care Teams Restaurant Host/Hostess Relationship Specialty Start Date End Date Alexandria Peñaloza MD PCP - General 03/26/10 07/24/20 Kristy Castrejon MD PCP - General Internal Medicine 07/25/20 1 Alexandria Peñaloza MD PCP - General Internal Medicine 11/21/20 05/13/22 Tom White [address] [place] [address] PCP - General Internal Medicine 05/14/22 10/06/22 Marisela Goodrich MD [address] [place] [address] PCP - General Internal Medicine 10/07/22 documented as of this encounter
--- OUTSIDE RECORDS SUMMARY | 2025-01-13 12:36 | XMS_ITS | Encounter Summary ---
Author Organization [facility] Address [address] [place] [address] Care Team Providers Care Pan Shaker Name Role Phone Alexandria Peñaloza MD Primary Care Provider Unava Kristy Rush MD Primary Care Provider Un available Alexandria Peñaloza MD Primary Care Provider Soniava Tom Booker Primary Care Provider [phone] Marisela Goodrich MD Primary Care Provider + Encounter Details Date Type Department Care Team Description 08/21/2019 Release of Information Medical Records [address] [place] [address] Abstract, Provider Social History Tobacco Use Types [...] on filedocumented in this encounter Care Teams Pan Shaker Relationship Specialty Start Date End Date Alexandria Peñaloza MD PCP - General 03/26/10 07/24/20 Kristy Castrejon MD PCP - General Internal Medicine 07/25/20 1 Alexandria Peñaloza MD PCP - General Internal Medicine 11/21/20 05/13/22 Tom White [address] [place] [address] PCP - General Internal Medicine 05/14/22 10/06/22 Marisela Goodrich MD [address] [place] [address] PCP - General Internal Medicine 10/07/22 documented as of this encounter
--- OUTSIDE RECORDS SUMMARY | 2025-01-13 12:36 | XMS_ITS | Encounter Summary ---
Author Organization [facility] Address [address] [place] [address] Care Team Providers Care Eeg Technologist Name Role Phone Alexandria Peñaloza MD Primary Care Provider Unava Kristy Rush MD Primary Care Provider Un available Alexandria Peñaloza MD Primary Care Provider Unava ilTom Toscano Primary Care Provider [phone] Marisela Goodrich MD Primary Care Provider + Encounter Details Date Type Department Care Team Description 01/29/2017 Chronometer Assembler Report Medical Records [address] [place] [address] Stephen Reynolds MD Social History Tobacco Use [...] on filedocumented in this encounter Care Teams Eeg Technologist Relationship Specialty Start Date End Date Alexandria Peñaloza MD PCP - General 03/26/10 07/24/20 Kristy Castrejon MD PCP - General Internal Medicine 07/25/20 1 Alexandria Peñaloza MD PCP - General Internal Medicine 11/21/20 05/13/22 Tom White [address] [place] [address] PCP - General Internal Medicine 05/14/22 10/06/22 Marisela Goodrich MD [address] [place] [address] PCP - General Internal Medicine 10/07/22 documented as of this encounter
--- OUTSIDE RECORDS SUMMARY | 2025-01-13 12:36 | XMS_ITS | Encounter Summary ---
Author Organization [facility] Address [address] [place] [address] Care Team Providers Care Counseling Center Manager Name Role Phone Alexandria Peñaloza MD Primary Care Provider UnaKristy Negro MD Primary Care Provider Un available Alexandria Peñaloza MD Primary Care Provider Soniava Tom Booker Primary Care Provider [phone] Marisela Goodrich MD Primary Care Provider + Encounter Details Date Type Department Care Team Description 10/16/2011 Auto Engine Mechanic Report Medical Records [address] [place] [address] Mushtaq Cerda MD Social History Tobacco Use [...] on filedocumented in this encounter Care Teams Counseling Center Manager Relationship Specialty Start Date End Date Alexandria Peñaloza MD PCP - General 03/26/10 07/24/20 Kristy Castrejon MD PCP - General Internal Medicine 07/25/20 1 Alexandria Peñaloza MD PCP - General Internal Medicine 11/21/20 05/13/22 Tom White [address] [place] [address] PCP - General Internal Medicine 05/14/22 10/06/22 Marisela Goodrich MD [address] [place] [address] PCP - General Internal Medicine 10/07/22 documented as of this encounter
--- OUTSIDE RECORDS SUMMARY | 2025-01-13 12:36 | XMS_ITS | Encounter Summary ---
Author Organization [facility] Address [address] [place] [address] Care Team Providers Care Powerhouse Electrician Name Role Phone Alexandria Peñaloza MD Primary Care Provider Unava Kristy Rush MD Primary Care Provider Un available Alexandria Peñaloza MD Primary Care Provider Soniava Tom Booker Primary Care Provider [phone] Marisela Goodrich MD Primary Care Provider + Encounter Details Date Type Department Care Team Description 06/30/2017 [facility] Medical Records [address] [place] [address] Abstract, Provider Social History Tobacco Use Types [...] on filedocumented in this encounter Care Teams Powerhouse Electrician Relationship Specialty Start Date End Date Alexandria Peñaloza MD PCP - General 03/26/10 07/24/20 Kristy Castrejon MD PCP - General Internal Medicine 07/25/20 1 Alexandria Peñaloza MD PCP - General Internal Medicine 11/21/20 05/13/22 Tom White [address] [place] [address] PCP - General Internal Medicine 05/14/22 10/06/22 Marisela Goodrich MD [address] [place] [address] PCP - General Internal Medicine 10/07/22 documented as of this encounter
--- OUTSIDE RECORDS SUMMARY | 2025-01-13 12:36 | XMS_ITS | Encounter Summary ---
Author Organization [facility] Address [address] [place] [address] Care Team Providers Care Workers' Compensation Claims Examiner Name Role Phone Alexandria Peñaloza MD Primary Care Provider Unava Kristy Rush MD Primary Care Provider Un available Alexandria Peñaloza MD Primary Care Provider Unava Tom Booker Primary Care Provider [phone] Marisela Goodrich MD Primary Care Provider + Encounter Details Date Type Department Care Team Description 06/30/2019 [facility] Medical Records [address] [place] [address] Isreal Fuller Social History Tobacco Use Types Packs/Day Years [...] on filedocumented in this encounter Care Teams Workers' Compensation Claims Examiner Relationship Specialty Start Date End Date Aelxandria Peñaloza MD PCP - General 03/26/10 07/24/20 Kristy Castrejon MD PCP - General Internal Medicine 07/25/20 1 Alexandria Peñaloza MD PCP - General Internal Medicine 11/21/20 05/13/22 Tom White [address] [place] [address] PCP - General Internal Medicine 05/14/22 10/06/22 Marisela oGodrich MD [address] [place] [address] PCP - General Internal Medicine 10/07/22 documented as of this encounter
--- OUTSIDE RECORDS SUMMARY | 2025-01-13 12:36 | XMS_ITS | Encounter Summary ---
Author Organization [facility] Address [address] [place] [address] Care Team Providers Care Nutritional Services Host Name Role Phone Alexandria Peñaloza MD Primary Care Provider Tom Jane Primary Care Provider [phone] Marisela Goodrich MD Primary Care Provider + Encounter Details Date Type Department Care Team Description 12/20/2021 Telephone Adult Medicine - [address] [address] Aye Ortega PA-C [address] [place] [address] Social History Tobacco Use Types Packs/Day Years [...] on filedocumented in this encounter Care Teams Nutritional Services Host Relationship Specialty Start Date End Date Alexandria Peñaloza MD PCP - General Internal Medicine 11/21/20 05/13/22 Tom White [address] [place] [address] PCP - General Internal Medicine 05/14/22 10/06/22 Marisela Goodrich MD [address] [place], [place] [phone] PCP - General Internal Medicine 10/07/22 documented as of this encounter
--- OUTSIDE RECORDS SUMMARY | 2025-01-13 12:37 | XMS_ITS | Encounter Summary ---
Author Organization [facility] Address [address] [place] [address] Care Team Providers Care Java Developer Consultant Name Role Phone Alexandria Peñaloza MD Primary Care Provider Unava Kristy Rush MD Primary Care Provider Un available Alexandria Peñaloza MD Primary Care Provider Unava Tom Booker Primary Care Provider [phone] Marisela Goodrich MD Primary Care Provider + Encounter Details Date Type Department Care Team Description 03/17/2013 Orders Only Medicine/Pediatrics - [address] [phone] Marli Vanessa PA-C Other malaise and fatigue [...] Primary documented in this encounter Care Teams Java Developer Consultant Relationship Specialty Start Date End Date Alexandria Peñaloza MD PCP - General 03/26/10 07/24/20 Kristy Castrejon MD PCP - General Internal Medicine 07/25/20 1 Alexandria Peñaloza MD PCP - General Internal Medicine 11/21/20 05/13/22 Tom White [address] [place] [address] PCP - General Internal Medicine 05/14/22 10/06/22 Marisela Goodrich MD [address] [place] [address] PCP - General Internal Medicine 10/07/22 documented as of this encounter
--- OUTSIDE RECORDS SUMMARY | 2025-01-13 12:37 | XMS_ITS | Encounter Summary ---
Author Organization [facility] Address [address] [place] [address] Care Team Providers Care Courier Delivery Driver Name Role Phone Alexandria Peñaloza MD Primary Care Provider Unava Kristy Rush MD Primary Care Provider Un available Alexandria Peñaloza MD Primary Care Provider Unava Tom Booker Primary Care Provider [phone] Marisela Goodrich MD Primary Care Provider + Reason for Referral * EXTERNAL (Routine) - Authorized/Booked Specialty Diagnoses / Procedures Referred By Caitie t Referred To Contact Neurology Procedures REFERRAL TO NEUROLOGY Alexandria Peñaloza MD [address] [place] [address] [facility] Referral ID Status Reason Start Date Expiration Date V isits Requested Visits Authorized SEE NOTE Authorized/B ooked 05/10/2019 08/11/2019 1 1 Reason for Visit * Reason Onset Date Comments Audit Clerk Feedback 05/10/2019 [facility] General Angus rology Encounter Details Date Type Department Care Team Description 05/10/2019 Telephone Medicine/Pediatrics - [address] [phone] Alexandria Peñaloza MD Audit Clerk Feedback ([facility] General Neurology) Social History Tobacco Use [...] on filedocumented in this encounter Care Teams Courier Delivery Driver Relationship Specialty Start Date End Date Alexandria Peñaloza MD PCP - General 03/26/10 07/24/20 Kristy Castrejon MD PCP - General Internal Medicine 07/25/20 1 Alexandria Peñaloza MD PCP - General Internal Medicine 11/21/20 05/13/22 Tom White [address] [place] [address] PCP - General Internal Medicine 05/14/22 10/06/22 Marisela Goodrich MD [address] [place] [address] PCP - General Internal Medicine 10/07/22 documented as of this encounter
--- OUTSIDE RECORDS SUMMARY | 2025-01-13 12:37 | XMS_ITS | Encounter Summary ---
Author Organization [facility] Address [address] [place] [address] Care Team Providers Care Military Lawyer Name Role Phone Alexandria Peñaloza MD Primary Care Provider Unava Kristy Rush MD Primary Care Provider Un available Alexandria Peñaloza MD Primary Care Provider Unava Tom Booker Primary Care Provider [phone] Marisela Goodrich MD Primary Care Provider + Encounter Details Date Type Department Care Team Description 07/06/2012 Integrated Circuits Inspector Report Medical Records [address] [place] [address] Reji Hensley [address] [place] [address] Social History Tobacco Use Types Packs/Day Years [...] on filedocumented in this encounter Care Teams Military Lawyer Relationship Specialty Start Date End Date Alexandria Peñaloza MD PCP - General 03/26/10 07/24/20 Kristy Castrejon MD PCP - General Internal Medicine 07/25/20 1 Alexandria Peñaloza MD PCP - General Internal Medicine 11/21/20 05/13/22 Tom White [address] [place] [address] PCP - General Internal Medicine 05/14/22 10/06/22 Marisela Goodrich MD [address] [place] [address] PCP - General Internal Medicine 10/07/22 documented as of this encounter
--- OUTSIDE RECORDS SUMMARY | 2025-01-13 12:37 | XMS_ITS | Encounter Summary ---
Author Organization [facility] Address [address] [place] [address] Care Team Providers Care Agency Sales Development Associate Name Role Phone Marisela Goodrich MD Primary Care Provider + Encounter Details Date Type Department Care Team Description 01/07/2023 Hospital Medical Records [address] [place] [address] Ronnie Boyle MD Social History Tobacco Use [...] on filedocumented in this encounter Care Teams Agency Sales Development Associate Relationship Specialty Start Date End Date Marisela Goodrich MD [address] [place] [address] PCP - General Internal Medicine 10/07/22 documented as of this encounter
--- OUTSIDE RECORDS SUMMARY | 2025-01-13 12:37 | XMS_ITS | Encounter Summary ---
Author Organization [facility] Address [address] [place] [address] Care Team Providers Care Water System Operator Name Role Phone Marisela Goodrich MD Primary Care Provider + Reason for Visit * Reason Comments E-prescribe Rx Request Encounter Details Date Type Department Care Team Description 07/30/2023 Refill Medicine/Pediatrics - [place] [address] [place] [phone] Marisela Goodrich MD [address] [place] [address] E-prescribe Rx Request Social History Tobacco Use [...] N/A Patients current insurance carrier is: Payor: [facility] FFS / Plan: [facility] / Product Type: MEDICAID RISK documented in this encounter Plan of Treatment Not on file documented as of this encounter Visit Diagnoses Not on filedocumented in this encounter Care Teams Water System Operator Relationship Specialty Start Date End Date Marisela Goodrich MD [address] [place] [address] PCP - General Internal Medicine 10/07/22 documented as of this encounter
--- OUTSIDE RECORDS SUMMARY | 2025-01-13 12:37 | XMS_ITS | Encounter Summary ---
Author Organization [facility] Address [address] [place] [address] Care Team Providers Care Manager Location Name Role Phone Alexandria Peñaloza MD Primary Care Provider Unava Kristy Rush MD Primary Care Provider Un available Alexandria Peñaloza MD Primary Care Provider Unava Tom Booker Primary Care Provider [phone] Marisela Goodrich MD Primary Care Provider + Encounter Details Date Type Department Care Team Description 03/24/2019 Hospital Medical Records [address] [place] [address] Jesus, Skylar [address] [place] [address] Social History Tobacco Use Types Packs/Day Years [...] filedocumented in this encounter Care Teams Manager Location Relationship Specialty Start Date End Date Alexandria Peñaloza MD PCP - General 03/26/10 07/24/20 Kristy Castrejon MD PCP - General Internal Medicine 07/25/20 1 Alexandria Peñaloza MD PCP - General Internal Medicine 11/21/20 05/13/22 Tom White [address] [place] [address] PCP - General Internal Medicine 05/14/22 10/06/22 Marisela Goodrich MD [address] [place] [address] PCP - General Internal Medicine 10/07/22 documented as of this encounter
--- OUTSIDE RECORDS SUMMARY | 2025-01-13 12:37 | XMS_ITS | Encounter Summary ---
Author Organization [facility] Address [address] [place] [address] Care Team Providers Care Edge Finisher Name Role Phone Marisela Goodrich MD Primary Care Provider + Encounter Details Date Type Department Care Team Description 01/22/2023 Business Unit Manager Report Medical Records [address] [place] [address] oRnnie Boyle MD Social History Tobacco Use Types [...] on filedocumented in this encounter Care Teams Edge Finisher Relationship Specialty Start Date End Date Marisela Goodrich MD [address] [place] [address] PCP - General Internal Medicine 10/07/22 documented as of this encounter
--- OUTSIDE RECORDS SUMMARY | 2025-01-13 12:37 | XMS_ITS | Encounter Summary ---
Author Organization [facility] Address [address] [place] [address] Care Team Providers Care Mud Jack Nozzleman Name Role Phone Alexandria Peñaloza MD Primary Care Provider Unava Kristy Rush MD Primary Care Provider Un available Alexandria Peñaloza MD Primary Care Provider Unava Tom Booker Primary Care Provider [phone] Marisela Goodrich MD Primary Care Provider + Encounter Details Date Type Department Care Team Description [facility]/10[facility] [address] [place] [address] Md Adis Social History Tobacco Use Types [...] on filedocumented in this encounter Care Teams Mud Jack Nozzleman Relationship Specialty Start Date End Date Alexandria Peñaloza MD PCP - General 03/26/10 07/24/20 Kristy Castrejon MD PCP - General Internal Medicine 07/25/20 1 Alexandria Peñaloza MD PCP - General Internal Medicine 11/21/20 05/13/22 Tom White [address] [place] [address] PCP - General Internal Medicine 05/14/22 10/06/22 Marisela Goodrich MD [address] [place] [address] PCP - General Internal Medicine 10/07/22 documented as of this encounter
--- OUTSIDE RECORDS SUMMARY | 2025-01-13 12:37 | XMS_ITS | Encounter Summary ---
Author Organization [facility] Address [address] [place] [address] Care Team Providers Care Furniture Assembly Supervisor Name Role Phone Alexandria Peñaloza MD Primary Care Provider Unava Kristy Rush MD Primary Care Provider Un available Alexandria Peñaloza MD Primary Care Provider Unava Tom Booker Primary Care Provider [phone] Marisela Goodrich MD Primary Care Provider + Encounter Details Date Type Department Care Team Description 11/17/2017 [facility] [address] [place] [address] Md Adis Social History Tobacco Use Types [...] on filedocumented in this encounter Care Teams Furniture Assembly Supervisor Relationship Specialty Start Date End Date Alexandria Peñaloza MD PCP - General 03/26/10 07/24/20 Kristy Castrejon MD PCP - General Internal Medicine 07/25/20 1 Alexandria Peñaloza MD PCP - General Internal Medicine 11/21/20 05/13/22 Tom White [address] [place] [address] PCP - General Internal Medicine 05/14/22 10/06/22 Marisela Goodrich MD [address] [place] [address] PCP - General Internal Medicine 10/07/22 documented as of this encounter
--- OUTSIDE RECORDS SUMMARY | 2025-01-13 12:37 | XMS_ITS | Encounter Summary ---
Author Organization [facility] Address [address] [place] [address] Care Team Providers Care Solar Installation Technician Name Role Phone Alexandria Peñaloza MD Primary Care Provider Tom Jane Primary Care Provider [phone] Marisela Goodrich MD Primary Care Provider + Encounter Details Date Type Department Care Team Description 02/27/2021 Tutor Report Medical Records [address] [place] [address] Nam Villela Social History Tobacco Use Types [...] filedocumented in this encounter Care Teams Solar Installation Technician Relationship Specialty Start Date End Date Alexandria Peñaloza MD PCP - General Internal Medicine 11/21/20 05/13/22 Tom White [address] [place] [id number] PCP - General Internal Medicine 05/14/22 10/06/22 Marisela Goodrich MD [address] [place] [address] PCP - General Internal Medicine 10/07/22 documented as of this encounter
--- OUTSIDE RECORDS SUMMARY | 2025-01-13 12:37 | XMS_ITS | Encounter Summary ---
Author Organization [facility] Address [address] [place] [address] Care Team Providers Care Freight Service Inspector Name Role Phone Marisela Goodrich MD Primary Care Provider + Encounter Details Date Type Department Care Team Description 12/27/2022 Refill Medicine/Pediatrics - [address] [phone] Alexandria Peñaloza MD Social History Tobacco Use [...] EST Labs pending to date, sent f/u [employer] message requesting a response. * Telephone Encounter - Robbie Hogan M.A. - 12/28/2022 8:46 PM EST [employer] message to pt- needs to have labs [...] on filedocumented in this encounter Care Teams Freight Service Inspector Relationship Specialty Start Date End Date Marisela Goodrich MD [address] [place] [address] PCP - General Internal Medicine 10/07/22 documented as of this encounter
--- OUTSIDE RECORDS SUMMARY | 2025-01-13 12:37 | XMS_ITS | Encounter Summary ---
Author Organization [facility] Address [address] [place] [address] Care Team Providers Care Pattern Maker Programer Name Role Phone Marisela Goodrich MD Primary Care Provider + Encounter Details Date Type Department Care Team Description 01/07/2023 Hospital Medical Records [address] [place] [address] Social History Tobacco Use Types Packs/Day Years [...] on filedocumented in this encounter Care Teams Pattern Maker Programer Relationship Specialty Start Date End Date Marisela Goodrich MD [address] [place] [address] PCP - General Internal Medicine 10/07/22 documented as of this encounter
--- OUTSIDE RECORDS SUMMARY | 2025-01-13 12:37 | XMS_ITS | Encounter Summary ---
Author Organization [facility] Address [address] [place] [address] Care Team Providers Care Billing Manager Name Role Phone Marisela Goodrich MD Primary Care Provider + Reason for Visit * Reason Comments E-prescribe Rx Request Encounter Details Date Type Department Care Team Description 09/23/2023 Refill Adult Medicine [facility] [address] [place] [address] Marisela Goodrich MD [address] [place] [address] E-prescribe Rx Request Social History Tobacco Use [...] 1 Mg Tablet 10 10 Sh Dev [id number] [facility] (14[facility]) 1/2 1.00 [facility] [place] 09/08/2023 09/08/2023 1 Lorazepam 1 Mg Tablet 10 10 Sh Dev [id number] [facility] (1450) 0/2 1.00 [place] 09/08/2023 08/11/2023 1 Lacosamide 150 Mg Tablet 60 30 Wi Krystian [id number] [facility] (1450) 1/ 1.20 [place] 08/18/2023 08/18/2023 1 Pregabalin 100 Mg Capsule 120 30 Oy Ogu [id number] [facility] (1450) 0/0 2.68 [place] 08/11/2023 08/11/2023 1 Lorazepam 1 Mg Tablet 10 10 Sh Dev [id number] [facility] (1450) 0/0 1.00 [place] 08/11/2023 08/11/2023 1 Lacosamide 150 Mg Tablet 60 30 Wi Krystian [id number] [facility] (1450) 0/5 1.20 [place] 07/17/2023 07/17/2023 1 Pregabalin 100 Mg Capsule 120 30 Oy Ogu [id number] [facility] (1450) 0/0 2.68 [place] 07/12/2023 06/11/2023 1 Lacosamide 150 Mg Tablet 60 30 Be Radha [id number] [facility] (1450) 1/ 1.20 [place] 06/16/2023 06/16/2023 1 Pregabalin 100 Mg Capsule 120 30 Oy Ogu [id number] [facility] (1450) 0/0 2.68 LME Medicaid [place] 06/11/2023 06/11/2023 1 Lacosamide 150 Mg Tablet 60 30 Be Radha [id number] [facility] (1450) 0/ 1.20 LME Medicaid [place] 05/09/2023 04/09/2023 1 Lacosamide 150 Mg Tablet 60 30 Be Radha [id number] [facility] (1450) 11/17 1.20 LME [place] 05/07/2023 05/07/2023 1 Oxycodone Hcl (Ir) 5 Mg Tablet [address] [id number] [facility] (1450) 0/0 45.00 MME [place] 04/29/2023 02/26/2023 1 Pregabalin 100 Mg Capsule 180 45 Oy Ogu [id number] [facility] (1450) 11/17 2.68 LME [place] 04/10/2023 04/09/2023 1 Lacosamide 150 Mg Tablet 60 30 Be Radha [id number] [facility] (1450) 0 1.20 L[place] 04/10/2023 04/10/2023 1 Morphine Sulfate Ir 15 Mg Tab 7 2 Ch Gre [id number] [facility] (1450) 0/0 52.50 MME [place] [...] N/A Patients current insurance carrier is: Payor: [facility] FFS / Plan: [facility] [employer] / Product Type: MEDICAID RISK documented in this encounter Plan of Treatment Not on file documented as of this encounter Visit Diagnoses Not on filedocumented in this encounter Care Teams Billing Manager Relationship Specialty Start Date End Date Marisela Goodrich MD [address] [place] [address] PCP - General Internal Medicine 10/07/22 documented as of this encounter
--- OUTSIDE RECORDS SUMMARY | 2025-01-13 12:37 | XMS_ITS | Encounter Summary ---
Author Organization [facility] Address [address] [place] [address] Care Team Providers Care Wallboard Worker Name Role Phone Alexandria Peñaloza MD Primary Care Provider Unava Kristy Rush MD Primary Care Provider Un available Alexandria Peñaloza MD Primary Care Provider Unava ilable Tom White Primary Care Provider [phone] Marisela Goodrich MD Primary Care Provider + Reason for Visit * Reason Onset Date Comments Surgery (Schedule) 11/23/2012 Encounter Details Date Type Department Care Team Description 11/23/2012 Telephone OBGYN - [address] [address] Easton Jackson MD Surgery (Schedule) Social History [...] the patient had this problem? N/A Pt???s COLLAR BASTER JUMPBASTING provider: Easton Jackson MD Last menstrual period (LMP) or EDC (due date): N/A documented in this encounter Plan of Treatment Not on file documented as of this encounter Visit Diagnoses Not on filedocumented in this encounter Care Teams Wallboard Worker Relationship Specialty Start Date End Date Alexandria Peñaloza MD PCP - General 03/26/10 07/24/20 Kristy Castrejon MD PCP - General Internal Medicine 07/25/20 1 Alexandria Peñaloza MD PCP - General Internal Medicine 11/21/20 05/13/22 Tom White [address] [place] [address] PCP - General Internal Medicine 05/14/22 10/06/22 Marisela Goodrich MD [address] [place] [address] PCP - General Internal Medicine 10/07/22 documented as of this encounter
--- OUTSIDE RECORDS SUMMARY | 2025-01-13 12:37 | XMS_ITS | Encounter Summary ---
Author Organization [facility] Address [address] [place] [address] Care Team Providers Care Adult Crossing Guard Name Role Phone Alexandria Peñaloza MD Primary Care Provider Unava Kristy Rush MD Primary Care Provider Un available Alexandria Peñaloza MD Primary Care Provider Unava Tom Booker Primary Care Provider [phone] aMrisela Goodrich MD Primary Care Provider + Encounter Details Date Type Department Care Team Description 04/29/2019 [facility] MyChart [address] [place] [address] Md Adis Social History Tobacco Use Types [...] Telephone Encounter - Gale Mendoza L.P.N. - 04/30/2019 10:19 AM EDT Please advise * Telephone Encounter - Easton Whitehead - 04/30/2019 10:16 AM EDTFrom: Sandy Santana Sent: 04/29/2019 2:53 PM EDT Subject: Medication Renewal Request Sandy Santana would like a refill of the following medications: Other - see comments for explanation Preferred pharmacy: [id number] - [place] - [address] [place] [address] AT Comment: I need a refill on my effector but can we bump up the dose? documented in this encounter Plan of Treatment Not on file documented as of this encounter Visit Diagnoses Not on filedocumented in this encounter Care Teams Adult Crossing Guard Relationship Specialty Start Date End Date Alexandria Peñaloza MD PCP - General 03/26/10 07/24/20 Kristy Castrejon MD PCP - General Internal Medicine 07/25/20 1 Alexandria Peñaloza MD PCP - General Internal Medicine 11/21/20 05/13/22 Tom White [address] [place] [address] PCP - General Internal Medicine 05/14/22 10/06/22 Marisela Goodrich MD [address] [place] [address] PCP - General Internal Medicine 10/07/22 documented as of this encounter
--- OUTSIDE RECORDS SUMMARY | 2025-01-13 12:37 | XMS_ITS | Encounter Summary ---
Author Organization [facility] Address [address] [place] [address] Care Team Providers Care Educational Resource Coordinator Name Role Phone Alexandria Peñaloza MD Primary Care Provider Tom Jane Primary Care Provider [phone] Marisela Goodrich MD Primary Care Provider + Encounter Details Date Type Department Care Team Description 05/01/2021 Welding Machine Operator Friction Report Medical Records [address] [place] [address] Basilio Choudhury MD Social History Tobacco Use Types Packs/Day [...] on filedocumented in this encounter Care Teams Educational Resource Coordinator Relationship Specialty Start Date End Date Alexandria Peñaloza MD PCP - General Internal Medicine 11/21/20 05/13/22 Tom White [address] [place] [address] PCP - General Internal Medicine 05/14/22 10/06/22 Marisela Goodrich MD [address] [place] [address] PCP - General Internal Medicine 10/07/22 documented as of this encounter
--- OUTSIDE RECORDS SUMMARY | 2025-01-13 12:37 | XMS_ITS | Encounter Summary ---
Author Organization [facility] Address [address] [place] [address] Care Team Providers Care Salt Grinder Name Role Phone Alexandria Peñaloza MD Primary Care Provider Tom Jane Primary Care Provider [phone] Marisela Goodrich MD Primary Care Provider + Encounter Details Date Type Department Care Team Description 06/11/2021 [facility] Medical Records [address] [place] [address] Social History Tobacco Use Types Packs/Day Years [...] on filedocumented in this encounter Care Teams Salt Grinder Relationship Specialty Start Date End Date Alexandria Peñaloza MD PCP - General Internal Medicine 11/21/20 05/13/22 Tom White [address] [place] [address] PCP - General Internal Medicine 05/14/22 10/06/22 Marisela Goodrich MD [address] [place] [address] PCP - General Internal Medicine 10/07/22 documented as of this encounter
--- OUTSIDE RECORDS SUMMARY | 2025-01-13 12:37 | XMS_ITS | Encounter Summary ---
Author Organization [facility] Address [address] [place] [address] Care Team Providers Care Line Installer Repairer Name Role Phone Marisela Goodrich MD Primary Care Provider + Encounter Details Date Type Department Care Team Description 01/28/2023 Pt. Non Urgent Medical Question Adult Medicine [address] [address] Tom White [address] [place] [address] Social History Tobacco Use Types Packs/Day Years [...] on filedocumented in this encounter Care Teams Line Installer Repairer Relationship Specialty Start Date End Date Marisela Goodrich MD [address] [place] [address] PCP - General Internal Medicine 10/07/22 documented as of this encounter
--- OUTSIDE RECORDS SUMMARY | 2025-01-13 12:37 | XMS_ITS | Encounter Summary ---
Author Organization [facility] Address [address] [place] [address] Care Team Providers Care Horizontal Resaw Operator Name Role Phone Alexandria Peñaloza MD Primary Care Provider Unava Kristy Rush MD Primary Care Provider Un available Alexandria Peñaloza MD Primary Care Provider Unava ilTom Toscano Primary Care Provider [phone] Marisela Goodrich MD Primary Care Provider + Encounter Details Date Type Department Care Team Description 10/13/2012 Ring Sewer Report Medical Records [address] [place] [address] Reji Hensley [address] [place] [address] Social History Tobacco Use Types Packs/Day Years [...] on filedocumented in this encounter Care Teams Horizontal Resaw Operator Relationship Specialty Start Date End Date Alexandria Peñaloza MD PCP - General 03/26/10 07/24/20 Kristy Castrejon MD PCP - General Internal Medicine 07/25/20 1 Alexandria Peñaloza MD PCP - General Internal Medicine 11/21/20 05/13/22 Tom White [address] [place] [address] PCP - General Internal Medicine 05/14/22 10/06/22 Marisela Goodrich MD [address] [place] [address] PCP - General Internal Medicine 10/07/22 documented as of this encounter
--- OUTSIDE RECORDS SUMMARY | 2025-01-13 12:37 | XMS_ITS | Encounter Summary ---
Author Organization [facility] Address [address] [place] [address] Care Team Providers Care Infirmary Attendant Name Role Phone Marisela Goodrich MD Primary Care Provider + Encounter Details Date Type Department Care Team Description 11/05/2023 Orders Only Medical Records [address] [place] [address] Sam Tinsley MD Social History Tobacco Use [...] on filedocumented in this encounter Care Teams Infirmary Attendant Relationship Specialty Start Date End Date Marisela Goodrich MD [address] [place] [address] PCP - General Internal Medicine 10/07/22 documented as of this encounter
--- OUTSIDE RECORDS SUMMARY | 2025-01-13 12:37 | XMS_ITS | Encounter Summary ---
Author Organization [facility] Address [address] [place] [address] Care Team Providers Care Associate Of Science In Nursing Name Role Phone Alexandria Peñaloza MD Primary Care Provider Unava Kristy Rush MD Primary Care Provider Un available Alexandria Peñaloza MD Primary Care Provider Unava Tom Booker Primary Care Provider [phone] Marisela Goodrich MD Primary Care Provider + Reason for Referral * EXTERNAL (Routine) - Authorized/Booked Specialty Diagnoses / Procedures Referred By Caitie frye Referred To Contact Neurology Procedures REFERRAL TO NEUROLOGY Alexandria Peñaloza MD [address] [place] [phone] [place] [address] [facility] [address], [address] [place] [address] Referral ID Status Reason Start Date Expiration Date V isits Requested Visits Authorized SEE NOTE Authorized/B ooked 04/26/2019 07/28/2019 1 1 Reason for Visit * Reason Onset Date Comments REFERRAL 04/26/2019 Encounter Details Date Type Department Care Team Description 04/26/2019 Telephone Adult Medicine - [facility] [address] [place], [place] [phone] Alexandria Peñaloza MD REFERRAL Social History Tobacco Use Types Packs/Day [...] Miscellaneous Notes * Telephone Encounter - Gale GomezP.N. - 04/26/2019 4:21 PM EDT Set up * Telephone Encounter - Kindra Lemus - 04/26/2019 4:01 PM EDT Please see office note from 04/22- * Telephone Encounter - Gale GomezP.N. - 04/26/2019 3:35 PM EDT Do we know his dx * Telephone Encounter - Emily Tony - 04/26/2019 3:26 PM EDT Requesting a Referral to [facility] Neurology. Thank you documented in this encounter Plan of Treatment Not on file documented as of this encounter Visit Diagnoses Not on filedocumented in this encounter Care Teams Associate Of Science In Nursing Relationship Specialty Start Date End Date Alexandria Peñaloza MD PCP - General 03/26/10 07/24/20 Kristy Castrejon MD PCP - General Internal Medicine 07/25/20 1 Alexandria Peñaloza MD PCP - General Internal Medicine 11/21/20 05/13/22 Tom White [address] [place] [address] PCP - General Internal Medicine 05/14/22 10/06/22 Marisela Goodrich MD [address] [place] [address] PCP - General Internal Medicine 10/07/22 documented as of this encounter
--- OUTSIDE RECORDS SUMMARY | 2025-01-13 12:37 | XMS_ITS | Encounter Summary ---
Author Organization [facility] Address [address] [place] [address] Care Team Providers Care Technical Assistance Consultant Name Role Phone Alexandria Peñaloza MD Primary Care Provider Tom Jane Primary Care Provider [phone] Marisela Goodrich MD Primary Care Provider + Encounter Details Date Type Department Care Team Description 03/07/2021 [facility] Medical Records [address] [place] [address] Abstract, Provider Social History Tobacco Use Types [...] filedocumented in this encounter Care Teams Technical Assistance Consultant Relationship Specialty Start Date End Date Alexandria Peñaloza MD PCP - General Internal Medicine 11/21/20 05/13/22 Tom White [address] [place], [place] [phone] PCP - General Internal Medicine 05/14/22 10/06/22 Marisela Goodrich MD [address] [place] [address] PCP - General Internal Medicine 10/07/22 documented as of this encounter
--- OUTSIDE RECORDS SUMMARY | 2025-01-13 12:37 | XMS_ITS | Encounter Summary ---
Author Organization [facility] Address [address] [place] [address] Care Team Providers Care Stone Setter Apprentice Name Role Phone Alexandria Peñaloza MD Primary Care Provider Unava Kristy Rush MD Primary Care Provider Un available Alexandria Peñaloza MD Primary Care Provider Unava ilTom Toscano Primary Care Provider Marisela Goodrich MD Primary Care Provider + Encounter Details Date Type Department Care Team Description 04/12/2012 [facility] Medical Records [address] [place] [address] Yonny Agrawal MD Social History Tobacco Use [...] on filedocumented in this encounter Care Teams Stone Setter Apprentice Relationship Specialty Start Date End Date Alexandria Peñaloza MD PCP - General 03/26/10 07/24/20 Kristy Castrejon MD PCP - General Internal Medicine 07/25/20 1 Alexandria Peñaloza MD PCP - General Internal Medicine 11/21/20 05/13/22 Tom White [address] [place] [address] PCP - General Internal Medicine 05/14/22 10/06/22 Marisela Goodrich MD [address] [place] [address] PCP - General Internal Medicine 10/07/22 documented as of this encounter
--- OUTSIDE RECORDS SUMMARY | 2025-01-13 12:37 | XMS_ITS | Encounter Summary ---
Author Organization [facility] Address [address] [place] [address] Care Team Providers Care Risk Analyst Name Role Phone Marisela Goodrich MD Primary Care Provider + Reason for Visit * Reason Onset Date Comments hospital follow up 12/06/2022 Encounter Details Date Type Department Care Team Description 12/06/2022 Telephone Adult Medicine [address] [address] Marisela Goodrich MD [address] [place] [address] hospital follow up Social History Tobacco Use [...] does not show missed calls. Admitted to [facility] for the same problem, looking to book, [...] with: Hospital/UC center patient was treated at: [facility] Date of visit: 11/25/22 11/28/22 [...] on filedocumented in this encounter Care Teams Risk Analyst Relationship Specialty Start Date End Date Marisela Goodrich MD [address] [place] [address] PCP - General Internal Medicine 10/07/22 documented as of this encounter
--- OUTSIDE RECORDS SUMMARY | 2025-01-13 12:38 | XMS_ITS | Encounter Summary ---
Author Organization [facility] Address [address] [place] [address] Care Team Providers Care Bee Keeper Name Role Phone Kristy Castrejon MD Primary Care Provider Un available Alexandria Peñaloza MD Primary Care Provider Soniava Tom Booker Primary Care Provider [phone] Marisela Goodrich MD Primary Care Provider + Encounter Details Date Type Department Care Team Description 10/26/2020 Wastewater Plant Operator Report Medical Records [address] [place] [address] Reji Hensley [address] [place] [address] Social History Tobacco Use Types Packs/Day Years [...] on filedocumented in this encounter Care Teams Bee Keeper Relationship Specialty Start Date End Date Kristy Castrejon MD PCP - General Internal Medicine 07/25/20 1 Alexandria Peñaloza MD PCP - General Internal Medicine 11/21/20 05/13/22 Tom White [address] [place] [address] PCP - General Internal Medicine 05/14/22 10/06/22 Marisela Goodrich MD [address] [place] [address] PCP - General Internal Medicine 10/07/22 documented as of this encounter
--- OUTSIDE RECORDS SUMMARY | 2025-01-13 12:38 | XMS_ITS | Encounter Summary ---
Author Organization [facility] Address [address] [place] [address] Care Team Providers Care Hospital Cook Name Role Phone Kristy Castrejon MD Primary Care Provider Un available Alexandria Peñaloza MD Primary Care Provider Unava Tom Booker Primary Care Provider [phone] Marisela Goodrich MD Primary Care Provider + Encounter Details Date Type Department Care Team Description 10/05/2020 Telephone OBGYN - [place] [address] [place] [address] Sandro Preciado MD [address] [place], [place] [phone] Social History Tobacco Use Types Packs/Day Years [...] on filedocumented in this encounter Care Teams Hospital Cook Relationship Specialty Start Date End Date Kristy Castrejon MD PCP - General Internal Medicine 07/25/20 1 Alexandria Peñaloza MD PCP - General Internal Medicine 11/21/20 05/13/22 Tom White [address] [place], [place] [phone] PCP - General Internal Medicine 05/14/22 10/06/22 Marisela Goodrich MD [address] [place] [address] PCP - General Internal Medicine 10/07/22 documented as of this encounter
--- OUTSIDE RECORDS SUMMARY | 2025-01-13 12:38 | XMS_ITS | Encounter Summary ---
Author Organization [facility] Address [address] [place] [address] Care Team Providers Care Legal Services Manager Name Role Phone Kristy Castrejon MD Primary Care Provider Un available Alexandria Peñaloza MD Primary Care Provider Tom Jane Primary Care Provider [phone] Marisela Goodrich MD Primary Care Provider + Encounter Details Date Type Department Care Team Description 10/09/2020 [facility] Medical Records [address] [place] [address] Abstract, Provider Social History Tobacco Use Types [...] on filedocumented in this encounter Care Teams Legal Services Manager Relationship Specialty Start Date End Date Kristy Castrejon MD PCP - General Internal Medicine 07/25/20 1 Alexandria Peñaloza MD PCP - General Internal Medicine 11/21/20 05/13/22 Tom White [address] [place] [address] PCP - General Internal Medicine 05/14/22 10/06/22 Marisela Goodrich MD [address] [place] [address] PCP - General Internal Medicine 10/07/22 documented as of this encounter
--- OUTSIDE RECORDS SUMMARY | 2025-01-13 12:38 | XMS_ITS | Encounter Summary ---
Author Organization [facility] Address [address] [place] [address] Care Team Providers Care Director [employer]ery [employer] Name Role Phone Kristy Castrejon MD Primary Care Provider Un available Alexandria Peñaloza MD Primary Care Provider Soniava Tom Booker Primary Care Provider [phone] Marisela Goodrich MD Primary Care Provider + Encounter Details Date Type Department Care Team Description 09/22/2020 Refill Medicine/Pediatrics - [address] [address] Alexandria Peñaloza MD Social History Tobacco Use [...] encounter Miscellaneous Notes * Telephone Encounter - Bliane Vincent M.A. - 09/22/2020 1:12 PM EST Last ov 09/10/20 Controlled substance contract and last issue date of medication reviewed. Patient is due for medication. Lab Results Component Value Date URBENZO NONE DETECTED 07/28/2020 UROPIATES NONE DETECTED 07/28/2020 URBARBITUATE NONE DETECTED 07/28/2020 PAINAMPHETAM NONE DETECTED 07/28/2020 PAINCOCAINE NONE DETECTED 07/28/2020 PAINCANNABIN NONE DETECTED 07/28/2020 Sandy Santana, 34F Powered by Ex[employer]bit Opioid Stewardship Module SparkWords Report Resources Date: 09/22/2020 Download CSV Download PDF Sandy Santana Risk Indicators STATE CLINICAL ALERTS (0) Explanation and Guidance This [employer]ights report is based on search criteria supplied and the data entered by the [facility]. For more information about any prescription, please contact the dispensing pharmacy or the prescriber. [employer] scores and reports are intended to aid, not replace, medical decision making. None of the information presented should be used as sole justification for providing or refusingto provide medications. The information on this report is not warranted as accurate or complete. Graphs INFORMATION GRAPH Narcotic Buprenorphine Sedative Stimulant Other All [id number] - Sandra Penan15 - Reji Hensley, Pa14 - Alexandria Armentae13 - Kristy Mac2 - Ari Love11 - Mary Gayle [place] [id number] - Sam Tinsley, 9 - Sandy Villa, 8 - Cristobal Mares7 - [facility] 6 - Geoffrey Camarillo V,5 - Marli Vanessa,4 - Rinku Romeo MD3 - Savannah Chowdhuryg2 - Milagros Schaeffer1 - Damon Thomas MDTimeline11/[id number] Buprenorphine mg 675152 Oxfskpim81/[id number] Morphine MgEq (MME) [id number] Lorazepam MgEq (LME) [id number] *Per CDC guidance, the MME conversion factors [...] Pharmacy Refill Daily Dose * Pymt Type 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 08/28/2020 1 08/28/2020 Lorazepam 2 Mg Tablet 30 30 [facility]alyn Woj [id number] [facility] 0/1 2.00 L[place] 08/28/2020 1 08/28/2020 Diazepam 2 Mg Tablet 20 30 Dinero Reu [id number] [facility] ([facility] 0/1 0.13 [place] 08/27/2020 1 08/25/2020 Hydrocodone-Acetamin 5-325 Mg 28 14 [facility] [id number] [facility] (1450) 0/0 10.00 [place] 08/25/2020 1 03/08/2020 Vimpat 150 Mg Tablet 60 30 Jalyn Woj [id number] [facility] ([facility] 4/5 1.20 [place] 07/31/2020 1 07/25/2020 Hydrocodone-Acetamin 5-325 Mg 28 14 [facility] [id number] [facility] (14[facility] 0/0 10.00 [place] 07/28/2020 1 07/27/2020 Diazepam 2 Mg Tablet 20 20 [place] [id number] [facility] ([facility] 0/0 0.20 [place] 07/13/2020 1 02/15/2020 Lorazepam 2 Mg Tablet 30 30 Jalyn Woj [id number] [facility] ([facility] 5/5 2.00 [place] 07/11/2020 1 03/08/2020 Vimpat 150 Mg Tablet 60 30 Jalyn Woj [id number] [facility] ([facility] 3/5 1.20 [place] 06/21/2020 1 06/21/2020 Hydrocodone-Acetamin 5-325 Mg 28 14 [facility] [id number] [facility] (1450) 0/0 10.00 [place] 06/21/2020 1 06/21/2020 Diazepam 2 Mg Tablet 14 14 [facility] [id number] [facility] (1450) 0/0 0.20 [place] 06/11/2020 1 02/15/2020 Lorazepam 2 Mg Tablet 30 30 Jalyn Woj [id number] [facility] (14[facility]) 4/5 2.00 [place] 05/29/2020 1 03/08/2020 Vimpat 150 Mg Tablet 60 30 Jalyn Woj [id number] [facility] (14[facility]) 2/5 1.20 [place] 05/22/2020 1 05/18/2020 Hydrocodone-Acetamin 5-325 Mg 28 14 [place] [id number] [facility] (14[facility] 0/0 10.00 [place] 05/13/2020 1 02/15/2020 Lorazepam 2 Mg Tablet 30 30 [facility] [id number] [facility] (14[facility] 3/5 2.00 [place] 05/12/2020 1 05/12/2020 Diazepam 2 Mg Tablet 14 14 [place] [id number] [facility] (14[facility] 0/0 0.20 [place] 04/15/2020 1 02/15/2020 Lorazepam 2 Mg Tablet 30 30 [facility]yn Woj [id number] [facility] (14[facility]) 2/5 2.00 [place] 04/15/2020 1 04/13/2020 Hydrocodone-Acetamin 5-325 Mg 28 14 [place] [id number] [facility] ([facility] 0/0 10.00 [place] 04/14/2020 1 03/08/2020 Vimpat 150 Mg Tablet 60 30 Jalyn Woj [id number] [facility] (14[facility] 1/5 1.20 [place] 03/18/2020 1 03/15/2020 Hydrocodone-Acetamin 5-325 Mg 28 14 [facility] [id number] [facility] (1450) 0/0 10.00 [place] 03/16/2020 1 03/08/2020 Vimpat 150 Mg Tablet 60 30 Jalyn Woj [id number] [facility] (14[facility]) 0/5 1.20 [place] 03/15/2020 1 02/15/2020 Lorazepam 2 Mg Tablet 30 30 Jalyn Woj [id number] [facility] ([facility] 1/5 2.00 [place] 02/16/2020 1 02/15/2020 Vimpat 150 Mg Tablet 30 30 Jalyn Woj [id number] [facility] ([facility] 0/5 0.60 [place] 02/15/2020 1 02/15/2020 Vimpat 200 Mg Tablet 30 30 Jalyn Woj [id number] [facility] ([facility] 0/5 0.80 [place] 02/15/2020 1 02/15/2020 Lorazepam 2 Mg Tablet 30 30 [facility]yn [facility]oj [id number] [facility] ([facility] 0/5 2.00 [place] 02/11/2020 1 02/03/2020 Hydrocodone-Acetamin 5-325 Mg 28 14 [facility] [id number] [facility] (14[facility] 0/0 10.00 [place] 01/20/2020 1 01/20/2020 Codeine-Guaifen 10-100 Mg/5 Ml 150 10 [facility] [id number] [facility] (1450) 0/0 4.50 MME [place] 01/20/2020 1 01/20/2020 Vimpat 150 Mg Tablet 60 30 Jalyn Woj [id number] [facility] (14[facility] 0/0 1.20 [place] 01/14/2020 1 01/10/2020 Lorazepam 2 Mg Tablet 30 30 Jalyn Woj [id number] [facility] ([facility] 0/0 2.00 [place] 12/17/2019 1 12/17/2019 Diazepam 2 Mg Tablet 10 5 Ch Mil [id number] [facility] (1450) 0/0 0.40 [place] 12/17/2019 1 11/15/2019 Lorazepam 2 Mg Tablet 30 30 Jalyn Woj [id number] [facility] ([facility] 1/1 2.00 [place] 12/14/2019 1 12/14/2019 Hydrocodone-Acetamin 5-325 Mg 28 14 Ch Mil [id number] [facility] (1450) 0/0 10.00 [place] 12/08/2019 1 12/08/2019 Vimpat 150 Mg Tablet 60 30 Jalyn Woj [id number] [facility] (14[facility]) 0/0 1.20 [place] 11/19/2019 1 11/18/2019 Hydrocodone-Acetamin 5-325 Mg 28 14 [place] [id number] [facility] (14[facility]) 0/0 10.00 [place] 11/15/2019 1 11/15/2019 Diazepam 2 Mg Tablet 10 5 [place] [id number] [facility] (1450) 0/0 0.40 [place] 11/15/2019 1 11/15/2019 Lorazepam 2 Mg Tablet 30 30 Jalyn Woj [id number] [facility] (14[facility]) 0/1 2.00 [place] 10/27/2019 1 10/27/2019 Hydrocodone-Acetamin 5-325 Mg 28 14 [place] [id number] [facility] (1450) 0/0 10.00 [place] 10/18/2019 1 10/18/2019 Vimpat 150 Mg Tablet 60 30 Jalyn Woj [id number] [facility] (1450) 0/0 1.20 [place] 10/09/2019 1 04/19/2019 Lorazepam 2 Mg Tablet 30 30 Jalyn Woj [id number] [facility] (1450) 5/5 2.00 [place] 09/18/2019 1 09/09/2019 Diazepam 2 Mg Tablet 10 5 [place] [id number] [facility] (1450) 0/0 0.40 [place] 09/18/2019 1 09/09/2019 Oxycodone Hcl 5 Mg Tablet 20 20 [place] [id number] [facility] (14[facility]) 0/0 7.50 [place] 09/11/2019 1 03/22/2019 Vimpat 150 Mg Tablet 60 30 Wi Krystian [id number] [facility] (1450) 4/5 1.20 [place] 09/10/2019 1 04/19/2019 Lorazepam 2 Mg Tablet 30 30 Jalyn Woj [id number] [facility] (14[facility]) 4/5 2.00 [place] 08/14/2019 1 03/22/2019 Vimpat 150 Mg Tablet 60 30 Wi Krystian [id number] [facility] (1450) 3/5 1.20 [place] 08/14/2019 1 04/19/2019 Lorazepam 2 Mg Tablet 30 30 Jalyn Woj [id number] [facility] (1450) 3/5 2.00 [place] 08/04/2019 1 08/03/2019 Oxycodone Hcl 5 Mg Tablet 20 20 Mil [id number] [facility] (1450) 0/0 7.50 [place] 07/07/2019 1 07/07/2019 Diazepam 2 Mg Tablet 10 5 Mil [id number] [facility] (1450) 0/0 0.40 [place] 07/07/2019 1 04/19/2019 Lorazepam 2 Mg Tablet 30 30 Jalyn Woj [id number] [facility] (14[facility]) 2/5 2.00 [place] 07/01/2019 1 07/01/2019 Oxycodone Hcl 5 Mg Tablet 30 10 [place] [id number] [facility] (14[facility]) 0/0 22.50 [place] 06/21/2019 1 03/22/2019 Vimpat 150 Mg Tablet 60 30 Wi Krystian [id number] [facility] (14[facility]) 2/5 1.20 [place] 06/04/2019 1 04/21/2019 Lyrica 25 Mg Capsule 21 14 Di Lav [id number] [facility] (1450) 0/0 0.25 [place] 05/27/2019 1 04/19/2019 Lorazepam 2 Mg Tablet 30 30 Jalyn Woj [id number] [facility] (14[facility]) 1/5 2.00 [place] 05/21/2019 1 05/21/2019 Oxycodone Hcl 5 Mg Tablet 20 20 Di Lav [id number] [facility] (14[facility]) 0/0 7.50 [place] 05/18/2019 1 03/22/2019 Vimpat 150 Mg Tablet 60 30 Wi Krystian [id number] [facility] (1450) 1/5 1.20 [place] 05/12/2019 1 05/12/2019 Lyrica 75 Mg Capsule 30 30 Ti Bur [id number] [facility] (1450) 0/0 0.50 [place] 04/23/2019 1 04/19/2019 Lorazepam 2 Mg Tablet 30 30 Jalyn Woj [id number] [facility] (14[facility]) 0/5 2.00 [place] 04/19/2019 1 04/13/2019 Diazepam 2 Mg Tablet 10 5 Do Severiano [id number] [facility] (1450) 0/0 0.40 [place] 04/14/2019 1 04/13/2019 Oxycodone Hcl 5 Mg Tablet 20 20 Di Lav [id number] [facility] (1450) 0/0 7.50 [place] 04/13/2019 1 04/13/2019 Diazepam 2 Mg Tablet 10 5 Do Severiano [id number] [facility] (1450) 0/0 0.40 [place] 03/26/2019 1 03/26/2019 Lyrica 75 Mg Capsule 30 30 Ti Bur [id number] [facility] (1450) 0/0 0.50 [place] 03/26/2019 1 03/26/2019 Lorazepam 2 Mg Tablet 30 30 Ba Inc [id number] [place] (9210) 0/0 2.00 [place] 03/24/2019 1 03/22/2019 Vimpat 150 Mg Tablet 60 30 Wi Krystian [id number] [facility] (1450) 0/5 1.20 [place] 02/25/2019 1 02/25/2019 Lyrica 75 Mg Capsule 30 30 As Hof [id number] [facility] (1450) 0/0 0.50 [place] 02/16/2019 1 02/16/2019 Diazepam 2 Mg Tablet 10 5 Ch Mil [id number] [facility] (1450) 0/0 0.40 [place] 02/08/2019 1 02/08/2019 Lyrica 50 Mg Capsule 30 30 Ch Mil [id number] [facility] (1450) 0/0 0.34 [place] 02/06/2019 1 02/03/2019 Oxycodone Hcl 5 Mg Tablet 10 3 Se Hailey [id number] [facility] (1450) 0/0 25.00 [place] 02/05/2019 1 09/22/2018 Vimpat 150 Mg Tablet 60 30 Jalyn Woj [id number] [facility] (1450) 3/3 1.20 [place] 01/27/2019 1 01/26/2019 Oxycodone Hcl 5 Mg Tablet 12 3 Je Bar [id number] [facility] (1450) 0/0 30.00 [place] 01/17/2019 1 01/17/2019 Oxycodone Hcl 5 Mg Tablet 20 20 Ke Arm [id number] [facility] (3429) 0/0 7.50 [place] 01/08/2019 1 12/28/2018 Vimpat 10 Mg/ml Solution 900 30 Jalyn Woj [id number] [facility] (1450) 0/5 1.20 [place] 12/28/2018 1 12/28/2018 Lyrica 50 Mg Capsule 30 30 Ch Mil [id number] [facility] (1450) 0/0 0.34 [place] 12/18/2018 1 12/17/2018 Diazepam 5 Mg/ml Oral Conc 120 30 Do Severiano [id number] [facility] (1450) 0/0 2.00 [place] 11/27/2018 1 09/22/2018 Vimpat 150 Mg Tablet 60 30 Jalyn Woj [id number] [facility] (1450) 2/3 1.20 [place] 11/27/2018 1 11/27/2018 Diazepam 2 Mg Tablet 10 5 Ch Mil [id number] [facility] (1450) 0/0 0.40 [place] 11/12/2018 1 11/09/2018 Lyrica 50 Mg Capsule 30 30 Do Severiano [id number] [facility] (1450) 0/0 0.34 [place] 11/09/2018 1 11/09/2018 Diazepam 2 Mg Tablet 20 10 Do Severiano [id number] [facility] (1450) 0/0 0.40 [place] 11/03/2018 1 11/03/2018 Oxycodone Hcl 5 Mg Tablet 20 20 Do Severiano [id number] [facility] (1450) 0/0 7.50 [place] 10/30/2018 1 2018 Lorazepam 1 Mg Tablet 12 4 As Hof [id number] [facility] (1450) 0/0 3.00 [place] 10/28/2018 1 09/22/2018 Vimpat 150 Mg Tablet 60 30 Jalyn Woj [id number] [facility] (1450) 1/3 1.20 [place] 10/23/2018 1 10/23/2018 Hydrocodone-Acetamin 5-325 Mg 12 3 Sc Mil [id number] [facility] (1450) 0/0 20.00 [place] [...] milligrams. Providers Total Providers: 16 Name Address [facility] Zipcomo Phone Damon Thomas MD [address] [facility] [address] - [facility] [address] [facility] [address] Savannah Castrejon MD [address] [facility] [phone] - Cristobal Bunch Mares [address] [facility] [phone] Rinku Romeo MD [address] [facility] [address] - Sam Tinsley MD [address] [place] [address] - Jaiden Bates [address] [facility] [address] - Geoffrey Camarillo V, Pa V [address] [facility] [phone] - Milagros Cook Pa-C [address] [facility] [address] - Jaiden Hammond-C [address] [facility] [address] - Mary Irene [address] [facility] [address] - Sandra Benito MD [address] [facility] [address] - Ari Crowley MD [address] [facility] [address] - Kristy Castrejon MD [address] [facility] [address] - Alexandria Peñaloza MD [address] [facility] [address] - Jaiden Celestin-C Division Of Neurology [facility] [address] - Pharmacies Total Pharmacies: 3 Name Address [facility] State Zipcode Phone [facility] [phone] [facility] [address] [facility] [employer]acy[employer]IVVER. [phone] [facility] [phone] [facility] [employer] [phone] [facility] [phone] documented in this encounter Plan of Treatment Not on file documented as of this encounter Visit Diagnoses Not on filedocumented in this encounter Care Teams Director [employer]ery [employer] Relationship Specialty Start Date End Date Kristy Castrejon MD PCP - General Internal Medicine 07/25/20 1 Alexandria Peñaloza MD PCP - General Internal Medicine 11/21/20 05/13/22 Tom White [address] [place] [address] PCP - General Internal Medicine 05/14/22 10/06/22 Marisela Goodrich MD [address] [place] [address] PCP - General Internal Medicine 10/07/22 documented as of this encounter
--- OUTSIDE RECORDS SUMMARY | 2025-01-13 12:38 | XMS_ITS | Encounter Summary ---
Author Organization [facility] Address [address] [place] [address] Care Team Providers Care News Library Director Name Role Phone Marisela Goodrich MD Primary Care Provider + Encounter Details Date Type Department Care Team Description 03/17/2023 Refill Medicine/Pediatrics - [address] [phone] Alexandria Peñaloza MD Social History Tobacco Use [...] on filedocumented in this encounter Care Teams News Library Director Relationship Specialty Start Date End Date Marisela Goodrich MD [address] [place] [address] PCP - General Internal Medicine 10/07/22 documented as of this encounter
--- OUTSIDE RECORDS SUMMARY | 2025-01-13 12:38 | XMS_ITS | Encounter Summary ---
Author Organization [facility] Address [address] [place] [address] Care Team Providers Care Sports Instructor Name Role Phone Alexandria Peñaloza MD Primary Care Provider Unava Kristy Rush MD Primary Care Provider Un available Alexandria Peñaloza MD Primary Care Provider Unava ilTom Toscano Primary Care Provider [phone] Marisela Goodrich MD Primary Care Provider + Encounter Details Date Type Department Care Team Description 12/31/2013 Bronze Chaser Report Medical Records [address] [place] [id number] Ba Maharaj MD Social History Tobacco Use [...] filedocumented in this encounter Care Teams Sports Instructor Relationship Specialty Start Date End Date Alexandria Peñaloza MD PCP - General 03/26/10 07/24/20 Kristy Castrejon MD PCP - General Internal Medicine 07/25/20 1 Alexandria Peñaloza MD PCP - General Internal Medicine 11/21/20 05/13/22 Tom White [address] [place] [address] PCP - General Internal Medicine 05/14/22 10/06/22 Marisela Goodrich MD [address] [place] [address] PCP - General Internal Medicine 10/07/22 documented as of this encounter
== END ==
LOC: HO.CARD 10:38
PROVIDERS: PCP Nurse Practitioner Family; Visit Provider Nurse Practitioner Family
DX: R01.1 Cardiac murmur, unspecified (principal)
CPT/HCPCS: 93306

== ENCOUNTER → 2025-01-13 10:41 | Outpatient (BNV) | payer OTHER, SELFPAY | PROVIDERS: PCP Nurse Practitioner Family; Visit Provider Internal Medicine | DX: R01.1 Cardiac murmur, unspecified (principal) | CPT/HCPCS: 93306 ==

== ENCOUNTER 2025-01-25 13:37 | Outpatient (AMB) | payer OTHER, SELFPAY ==
--- NOTE | 2025-01-25 13:43 | A.OFFVIS_ITS ---
Vital Signs 01/25/25 13:44 Height 5 ft 8 in Weight 350 lb BMI 53.2 BP 148/78 H Blood Pressure Location Rt brachial Position Sitting Pulse 104 H Pulse Source Pulse Oximeter Pulse Oximetry (%) 95 Oxygen Delivery Method Room Air Intake Visit Reasons: SOB/ Allergies Health Support Specialist Required: No Ship Design Teacher: Ship Design Teacher offered & declined Accompanied by: Self / Same As Patient Allergies gabapentin [From NEURONTIN] Allergy (Severe, Verified 01/25/25 13:47) ANAPHYLAXIS midazolam [From VERSED] Allergy (Severe, Verified 01/25/25 13:47) ANAPHYLAXIS ketorolac [From Toradol] Adverse Reaction (Intermediate, Verified 01/25/25 13:47) Hives latex Adverse Reaction (Intermediate, Verified 01/25/25 13:47) Rash Sulfa (Sulfonamide Antibiotics) Adverse Reaction (Intermediate, Verified 01/25/25 13:47) Rash Medication List - Last Reconciled 01/25/25 by Fely Fernandez LPN albuterol sulfate 90 mcg/actuation 2 puffs inhalation Q6H PRN blood sugar diagnostic (FreeStyle Lite Strips) POS testing TID blood-glucose meter (FreeStyle Lite Meter kit) As directed cetirizine (Allergy Relief (cetirizine)) 10 mg PO DAILY cholecalciferol (vitamin D3) 50 mcg PO DAILY 90 days cyanocobalamin (vitamin B-12) 1,000 mcg IM Q4W 90 days cyclobenzaprine 10 mg PO TID PRN dicyclomine 20 mg PO TID dulaglutide (Trulicity) 0.75 mg (0.5 mL) subcut QWEEK escitalopram oxalate (Lexapro) 10 mg PO DAILY fenofibrate 160 mg PO DAILY 30 days fluticasone propionate 50 mcg/actuation (Flonase Allergy Relief) 2 sprays intranasal DAILY 90 days glipizide 5 mg PO DAILY 90 days hydroxyzine HCl 50 mg PO BID PRN ibuprofen 600 mg PO Q8H PRN insulin glargine (Lantus Solostar U-100 Insulin) 34 units (0.34 mL) subcut QPM 3 0 days lacosamide 150 mg PO BID lancets (FreeStyle Lancets) POC testing TID lisinopril 40 mg PO DAILY 90 days loperamide 2 mg PO Q6H PRN lorazepam 1 mg PO DAILY PRN metformin ER 1,000 mg (2 x 500 mg) PO ONCE 90 days miscellaneous medical supply 3-prong cane for stability mometasone 100 mcg/actuation (Asmanex HFA) 1 inh inhalation BID omega 1-swk-jcp-fish oil 1,000 (120-180) mg (Fish Oil) 2 caps PO DAILY 30 days omeprazole 40 mg PO DAILY 90 days ondansetron 4 mg PO Q8H 4 days oxcarbazepine 600 mg PO BID pen needle, diabetic (BD Ultra-Fine Short Pen Needle) As directed promethazine 12.5 mg (10 mL) PO Q6H PRN risperidone 3 mg PO BEDTIME rizatriptan mg PO syringe with needle, safety As directed HPI HPI SOB/ Allergies: Details: Sandy is a pleasant 39 year old female, former smoker, quit 3+ years ago with less than 10 pack year history with underlying h/o exercise induced asthma, BIBIANA on CPAP, major depressive disorder, Bipolar, seizures, morbid obesity BMI 53, DM2, and HLD. She reported progressively worsening dyspnea on exertion, wheezing and chest tightness over the last few years, recently started on Asmanex and albuterol MDI with mild improvements. She also reported seasonal allergies and post nasal drip contributing to cough with suboptimal effect using zyrtec. At the last visit, she reported bronchitic symptoms, treated with doxycycline with resolution of cough. Today she presents to review labs. PFT scheduled for 02/09/25. Reviewed chest CT report from 12/17 which revealed scattered blebs otherwise unremarkable. She continues to report dyspnea on exertion with associated chest tightness, denies chest pain. Of note, patient ambulated from the waiting room to the exam room visibly dyspneic, oxygen saturation 95% , however tachycardic at 122, recovering with rest to 104. [facility] Medical History (Updated 01/25/25 @ 16:19 by Essence Perez NP) Sleep apnea Osteoarthritis Memory loss due to medical condition Hypertension High cholesterol C. difficile colitis Neuroforaminal stenosis of lumbar spine Hidradenitis suppurativa Degenerative joint disease of spine Bipolar disorder Depression Anxiety Type 2 diabetes mellitus Epilepsy Fibromyalgia, primary Migraine Surgical History Status post surgical removal of malignant neoplasm of skin Status post placement of VNS (vagus nerve stimulation) device History of eye surgery Hx of endoscopy History of laparoscopic appendectomy H/O wisdom tooth extraction Hx of tubal ligation Hx of tonsillectomy History of total hysterectomy with bilateral salpingo-oophorectomy (BSO) Hx of colonoscopy Hx laparoscopic cholecystectomy History of fundoplication Hx of section Family History Paternal Grandmother Rheumatoid arthritis Thyroid cancer Maternal Grandmother Arthritis Myocardial infarction Ovarian cyst Thyroid disease Cancer Paternal Uncle Colon cancer Mother Ovarian cyst Father Diabetes Depression Hypertension High cholesterol Skin cancer Maternal Grandfather FH: prostate cancer Paternal Grandfather Bipolar 1 disorder Social History Household Members: Family Both parents involved: No Caregiver staying overnight: No Housing: Other (Trailer) Are you a primary care manager cna to a significant other at home: No Do you presently have visiting nurse or other home services: No 75 years or older and lives alone: No Alcohol intake: never Patient Tobacco Use Status: Former Tobacco user e-Cigarette/Vaping Use: Never Used Second Hand Smoke Exposure: No service: No Current occupational status: disabled Cognitive needs: No Hearing needs: No Vision needs: Yes Physical Exam Vital Signs: Last Vital Signs Pulse 104 H 01/25/25 13:44 BP 148/78 H 01/25/25 13:44 Pulse Ox 95 01/25/25 13:44 Oxygen Delivery Method Room Air 01/25/25 13:44 BMI result Body Mass Index 53.2 Assessment & Plan Assessment & Plan (1) Asthma: Code(s): J45.909 - Unspecified asthma, uncomplicated Category: Medical (2) SOB (shortness of breath): Code(s): R06.02 - Shortness of breath Category: Medical (3) Environmental allergies: Code(s): Z91.09 - Other allergy status, other than to drugs and biological substances Category: Medical (4) Personal history of tobacco use: Code(s): Z87.891 - Personal history of nicotine dependence Category: Social Hx Plan Sandy reports suboptimal effect with Anoro will switch to Breo. Discussed importance of good oral hygiene to prevent thrush. Reviewed RAST which was positive for dust mites. Discussed ways to minimize allergen exposures. Will trial another Xzal. She has a PFT scheduled at the end of the time. Prior chest CT revealed blebs otherwise unremarkable, will obtain images. Patient tachycardic with minimal ambulation which may be related to underlying obesity and uncontrolled asthma. She is working towards weight loss however will send for further evaluation through cardiology. Previously she had a holter monitor ordered however this was never performed. All questions were answered and patient is in agreement of plan. Will follow up in 6-8 weeks or sooner if needed. Orders: Referrals Cardiology Referral R00.0 - Tachycardia, unspecified, R00.2 - Palpitations Medications: New levocetirizine (Xyzal) 5 mg PO DAILY 30 tabs 3RF fluticasone furoate-vilanterol 200-25 mcg/dose (Breo Ellipta) 1 inh inhalation DAILY 60 ea 6RF Discontinued mometasone 100 mcg/actuation (Asmanex HFA) Discontinued Reason: No Longer Medically Relevant 1 inh inhalation BID 13 grams 3RF Coding Level of Care Code Est Pt Level 4 (51024) Diagnoses Asthma J45.909 SOB (shortness of breath) R06.02 Environmental allergies Z91.09 Personal history of tobacco use Z87.891
[2025-01-25 13:44] VITALS: BP 148/78; PULSE 104; O2SAT 95; BMI 53.2
--- OUTSIDE RECORDS SUMMARY | 2025-01-25 16:32 | XMS_ITS | Encounter Summary ---
Author Organization [facility] Address [address] [place] [address] Care Team Providers Care Data Management Name Role Phone Alexandria Peñaloza MD Primary Care Provider Unava Kristy Rush MD Primary Care Provider Un available Alexandria Peñaloza MD Primary Care Provider Unava ilable Tom White Primary Care Provider [phone] Marisela Goodrich MD Primary Care Provider + Reason for Referral * EXTERNAL (Urgent) - Authorized/Booked Specialty Diagnoses / Procedures Referred By Contac t Referred To Contact Neurosurgery Procedures REFERRAL TO NEUROSURGERY Alexandria Peñaloza MD [address] [place] [id number] Callie Mahmood [address] [place] [id number] Referral ID Status Reason Start Date Expiration Date V isits Requested Visits Authorized SEE NOTE Authorized/B ooked 10/16/2016 01/15/2017 1 1 Reason for Visit * Reason Onset Date Comments Consumer Affairs Specialist Feedback 10/16/2016 Dr. Avalos Encounter Details Date Type Department Care Team Description 10/16/2016 Telephone Medicine/Pediatrics - [address] [phone] Alexandria Peñaloza MD Consumer Affairs Specialist Feedback (Dr. Avalos) Social History Tobacco [...] insurance does the patient have today? - [id number] Effective 08/17/09: BCBS will not retro referral [...] insurance must be obtained and registered in [facility] or their referral can not be [...] SPECIALIST PATIENT is seeing: callie mahmood - [id number] What specialty is this? Neuro surgery DIAGNOSIS [...] Is this visit:Initial Visit Address of Specialist: [address] [place] [address] [place] [address] Phone # of Specialist:[phone] Fax #: (if applicable):[phone] Does patient have an appointment scheduled?: YES Date of appointment- (including a retro-request): 10/21/2016 Is this appointment related to: Surgery documented in this encounter Plan of Treatment Not on file documented as of this encounter Visit Diagnoses Not on filedocumented in this encounter Care Teams Data Management Relationship Specialty Start Date End Date Alexandria Peñaloza MD PCP - General 03/26/10 07/24/20 Kristy Castrejon MD PCP - General Internal Medicine 07/25/20 1 Alexandria Peñaloza MD PCP - General Internal Medicine 11/21/20 05/13/22 Tom White [address] [place] [address] PCP - General Internal Medicine 05/14/22 10/06/22 Marisela Goodrich MD [address] [place] [address] PCP - General Internal Medicine 10/07/22 documented as of this encounter
--- OUTSIDE RECORDS SUMMARY | 2025-01-25 16:32 | XMS_ITS | Encounter Summary ---
Author Organization [facility] Address [address] [place] [address] Care Team Providers Care Welder Pipe Making Name Role Phone Alexandria Peñaloza MD Primary Care Provider Unava Kristy Rush MD Primary Care Provider Un available Alexandria Peñaloza MD Primary Care Provider Unava oTm Booker Primary Care Provider [phone] Marisela Goodrich MD Primary Care Provider + Reason for Visit * Reason Onset Date Comments Medication Review 12/15/2018 all meds in li quid form for upcoming surgery Encounter Details Date Type Department Care Team Description 12/15/2018 Telephone PHARMACY CLINIC [address] [place] [id number] Alexandria Peñaloza MD Medication Review (all meds [...] liquid form and should be covered by [facility] with no PA (per formulary medications are [...] Elizabeth, PharmD. Transition of Care Pharmacist [facility] [address] [place], [place] [phone] [email or web address] documented in this encounter Plan of Treatment Not on file documented as of this encounter Visit Diagnoses Not on filedocumented in this encounter Care Teams Welder Pipe Making Relationship Specialty Start Date End Date Alexandria Peñaloza MD PCP - General 03/26/10 07/24/20 Kristy Castrejon MD PCP - General Internal Medicine 07/25/20 1 Alexandria Peñaloza MD PCP - General Internal Medicine 11/21/20 05/13/22 Tom White [address] [place] [address] PCP - General Internal Medicine 05/14/22 10/06/22 Marisela Goodrich MD [address] [place] [address] PCP - General Internal Medicine 10/07/22 documented as of this encounter
--- OUTSIDE RECORDS SUMMARY | 2025-01-25 16:32 | XMS_ITS | Encounter Summary ---
Author Organization [facility] Address [address] [place] [address] Care Team Providers Care Supervisor Vendor Quality Name Role Phone Alexandria Peñaloza MD Primary Care Provider Unava Kristy Rush MD Primary Care Provider Un available Alexandria Peñaloza MD Primary Care Provider Soniava Tom Booker Primary Care Provider [phone] Marisela Goodrich MD Primary Care Provider + Encounter Details Date Type Department Care Team Description 04/20/2020 Transfer Records Medical Records [address] [place] [id number] Abstract, Provider Social History Tobacco Use Types [...] filedocumented in this encounter Care Teams Supervisor Vendor Quality Relationship Specialty Start Date End Date Alexandria Peñaloza MD PCP - General 03/26/10 07/24/20 Kristy Castrejon MD PCP - General Internal Medicine 07/25/20 1 Alexandria Peñaloza MD PCP - General Internal Medicine 11/21/20 05/13/22 Tom White [address] [place] [address] PCP - General Internal Medicine 05/14/22 10/06/22 Marisela Goodrich MD [address] [place] [address] PCP - General Internal Medicine 10/07/22 documented as of this encounter
--- OUTSIDE RECORDS SUMMARY | 2025-01-25 16:32 | XMS_ITS | Encounter Summary ---
Author Organization [facility] Address [address] [place] [address] Care Team Providers Care Senior Talent Acquisition Specialist Name Role Phone Alexandria Peñaloza MD Primary Care Provider Unava Kristy Rush MD Primary Care Provider Un available Alexandria Peñaloza MD Primary Care Provider Unava ilTom Toscano Primary Care Provider [phone] Marisela Goodrich MD Primary Care Provider + Encounter Details Date Type Department Care Team Description 09/18/2015 Pt. Non Urgent Medic al Question Medicine/Pediatrics - [address] [phone] Milagros Ríos FNP Social History Tobacco Use [...] filedocumented in this encounter Care Teams Senior Talent Acquisition Specialist Relationship Specialty Start Date End Date Alexandria Peñaloza MD PCP - General 03/26/10 07/24/20 Kristy Castrejon MD PCP - General Internal Medicine 07/25/20 1 Alexandria Peñaloza MD PCP - General Internal Medicine 11/21/20 05/13/22 Tom White [address] [place] [address] PCP - General Internal Medicine 05/14/22 10/06/22 Marisela Goodrich MD [address] [place] [address] PCP - General Internal Medicine 10/07/22 documented as of this encounter
--- OUTSIDE RECORDS SUMMARY | 2025-01-25 16:32 | XMS_ITS | Encounter Summary ---
Author Organization [facility] Address [address] [place] [address] Care Team Providers Care Contract Technician Name Role Phone Alexandria Peñaloza MD Primary Care Provider Unava Kristy Rush MD Primary Care Provider Un available Alexandria Peñaloza MD Primary Care Provider Unava Tom Booker Primary Care Provider [phone] Marisela Goodrich MD Primary Care Provider + Encounter Details Date Type Department Care Team Description 11/22/2018 Hospital Medical Records [address] [place] [address] Dany Rose Social History Tobacco Use Types [...] on filedocumented in this encounter Care Teams Contract Technician Relationship Specialty Start Date End Date Alexandria Peñaloza MD PCP - General 03/26/10 07/24/20 Kristy Castrejon MD PCP - General Internal Medicine 07/25/20 1 Alexandria Peñaloza MD PCP - General Internal Medicine 11/21/20 05/13/22 Tom White [address] [place] [address] PCP - General Internal Medicine 05/14/22 10/06/22 Marisela Goodrich MD [address] [place] [address] PCP - General Internal Medicine 10/07/22 documented as of this encounter
--- OUTSIDE RECORDS SUMMARY | 2025-01-25 16:32 | XMS_ITS | Encounter Summary ---
Author Organization [facility] Address [address] [place] [address] Care Team Providers Care Chief Investigator Name Role Phone Alexandria Peñaloza MD Primary Care Provider Unava Kristy Rush MD Primary Care Provider Un available Alexandria Peñaloza MD Primary Care Provider Unava Tom Booker Primary Care Provider [phone] Marisela Goodrich MD Primary Care Provider + Encounter Details Date Type Department Care Team Description 10/22/2016 [facility] Medical Records [address] [place] [id number] Abstract, Provider Social History Tobacco Use Types [...] filedocumented in this encounter Care Teams Chief Investigator Relationship Specialty Start Date End Date Alexandria Peñaloza MD PCP - General 03/26/10 07/24/20 Kristy Castrejon MD PCP - General Internal Medicine 07/25/20 1 Alexandria Peñaloza MD PCP - General Internal Medicine 11/21/20 05/13/22 Tom White [address] [place] [address] PCP - General Internal Medicine 05/14/22 10/06/22 Marisela Goodrich MD [address] [place] [address] PCP - General Internal Medicine 10/07/22 documented as of this encounter
--- OUTSIDE RECORDS SUMMARY | 2025-01-25 16:32 | XMS_ITS | Encounter Summary ---
Author Organization [facility] Address [address] [place] [address] Care Team Providers Care Process Safety Specialist Name Role Phone Alexandria Peñaloza MD Primary Care Provider Unava Kristy Rush MD Primary Care Provider Un available Alexandria Peñaloza MD Primary Care Provider Unava Tom Booker Primary Care Provider [phone] Marisela Goodrich MD Primary Care Provider + Encounter Details Date Type Department Care Team Description 04/10/2016 [facility] Report Medical Records [address] [place] [address] Abstract, Provider Social History Tobacco Use Types [...] on filedocumented in this encounter Care Teams Process Safety Specialist Relationship Specialty Start Date End Date Alexandria Peñaloza MD PCP - General 03/26/10 07/24/20 Kristy Castrejon MD PCP - General Internal Medicine 07/25/20 1 Alexandria Peñaloza MD PCP - General Internal Medicine 11/21/20 05/13/22 Tom White [address] [place] [address] PCP - General Internal Medicine 05/14/22 10/06/22 Marisela Goodrich MD [address] [place] [address] PCP - General Internal Medicine 10/07/22 documented as of this encounter
--- OUTSIDE RECORDS SUMMARY | 2025-01-25 16:32 | XMS_ITS | Clinical Summary ---
Author Organization [facility] it Address [address] [place] [address] Care Team Providers Care Digital Photographic Printer Name Role Phone Marisela Goodrich MD Primary [...] mellitus 09/24/2022 Nocturnal hypoxemia 04/08/2022 Overview (11/12/2024): [facility] diagnostic polysomnogram 03/14/2022 weight 320; [...] Surgery Date Site/Laterality Comments SECTION 2007 PROCEDURE: [facility] DELIVERY ONLY; COMMENT: x 1 WISDOM TOOTH EXTRACTION age 14 PROCEDURE: HISTORICAL WISDOM TEETH EXTRACTION OTHER SURGICAL HISTORY age 5 PROCEDURE: LA STRABISMUS RECESSION/RESCJ 1 HRZNTL MUSC TUBAL LIGATION [...] Joshi COLONOSCOPY 06/2018 PROCEDURE: HISTORICAL COLONOSCOPY; COMMENT: [facility]; visually normal, biopsies negative for microscopic colitis. COLONOSCOPY 11/2017 PROCEDURE: HISTORICAL COLONOSCOPY; COMMENT: [facility]; random biopsies negative for microscopic colitis, one diminutive tubular adenoma in the sigmoid colon. ROBOTIC ASSISTED HYSTERECTOMY 12/20/2019 PROCEDURE: HISTORICAL ROBOTIC HYSTERECTOMY WITH OR WITHOUT BSO; COMMENT: [facility] total hysterectomy with bilateral salpingectomy UPPER GASTROINTESTINAL ENDOSCOPY 02/25/2012 PROCEDURE: [facility] UPPER GI ENDOSCOPY PERFORMED; COMMENT: Normal on PPI rx. UPPER GASTROINTESTINAL ENDOSCOPY 12/15/2016 PROCEDURE: [facility] UPPER GI ENDOSCOPY [facility]FOR[facility] her[facility], biopsy of a normal-appearing EG junction was negative for Vasquez's esophagus. Medical History Medical History Date Comments Joint pain DX:Joint pain Asthma DX:Asthma; COMME NT: exercise induced; URI Depression DX:Depression; C OMMENT: as a teenager Anemia DX:Anemia Seizure (CMS/HCC) age 10 DX:Seizure (HC C); COMMENT: nocturnal complex partial; Dr. Hensley at [facility] IBS (irritable bowel syndrome) D X:IBS [...] lump, ovarian cyst, heart problem, thyroid dz, [place] age unknown Mother Alive ovarian cyst Paternal [...] * Annual BMP Blood Test (02/26/2023) Pathologist [facility] Annual BMP Blood Test abstracted Result [facility] HEALTH MAINTENANCE Final Result * Urine Albumin Creatinine Ratio (01/27/2023) Pathologist [facility] Urine Albumin Creatinine Ratio abstracted Result [facility] HEALTH MAINTENANCE Final Result * (ABNORMAL) Hemoglobin A1c (01/27/2023) Pathologist [facility] Hemoglobin A1C 8.4(A) <=6.5 % Blood Venous blood specimen / Unknown Result [facility] Provider LAB BLOOD ORDERABLES Mini l Result * (ABNORMAL) Lipid panel (01/27/2023) [facility] LDL/HDL Ratio 5(A) 0 - 4 Triglycerides 509(A) 0 - 150 mg/dL Cholesterol 173 0 - 200 mg/dL HDL 36(A) >=40 mg/dL Blood Venous blood specimen / Unknown Result [facility] Provider LAB BLOOD ORDERABLES Mini l Result * Colonoscopy (01/17/2021) Pathologist [facility] Colonoscopy no interpretation , abstracted Anatomical Region Laterality Modality Other [facility] Provider HEALTH MAINTENANCE Final Result * DX [...] Recently Relevant to Health Maintenance Care Teams Digital Photographic Printer Relationship Specialty Start Date End Date Marisela Goodrich MD PCP - General 10/07/22
--- OUTSIDE RECORDS SUMMARY | 2025-01-25 16:32 | XMS_ITS | Encounter Summary ---
Author Organization [facility] Address [address] [place] [address] Care Team Providers Care Residency Program Coordinator Name Role Phone Alexandria Peñaloza MD Primary Care Provider Unava Kristy Rush MD Primary Care Provider Un available Alexandria Peñaloza MD Primary Care Provider Unava Tom Booker Primary Care Provider [phone] Marisela Goodrich MD Primary Care Provider + Reason for Visit * Reason Onset Date Comments Prior Authorization 05/29/2016 Encounter Details Date Type Department Care Team Description 05/29/2016 Telephone Medicine/Pediatrics - [address] [phone] Alexandria Peñaloza MD Prior Authorization Social History [...] has taken imodium . Please fax to [phone] so I may proceed with a prior authorization . If she has taken imodium then she has met criteria for medication Thank you Please reply back to p [phone] prior authorization pool Lacey Farmer C.M.A. Formerly [facility] Prior Authorizations Ext: [phone] * Telephone [...] Thank you Please reply back to p [phone] prior authorization pool Lacey Farmer C.M.A. Formerly [facility] Prior Authorizations Ext: [phone] * Telephone Encounter - Mavis Oh - 05/29/2016 9:11 AM EDT Pre Authorization for Medication Does the patient already have this medication?YES Is this a Cover My Meds request: [place] of Medication xifaxan 550 mg tablet Dose of Medication 500 mg How does patient take this med? Take 1 tab by mouth 3 times daily What other dosage or similar medication have you tried in the past for this problem Patients current medical insurance [facility] What Prescription Plan does the [facility] have? [facility] Pres[facility] Tel # from back of prescription ID card What is the patients Prescription Plan ID #? [facility] [place]: [place] / Plan: MED[place]ID [place] / Product Type: MEDICAID [id number] documented in this encounter Plan of Treatment Not on file documented as of this encounter Visit Diagnoses Not on filedocumented in this encounter Care Teams Residency Program Coordinator Relationship Specialty Start Date End Date Alexandria Peñaloza MD PCP - General 03/26/10 07/24/20 Kristy Castrejon MD PCP - General Internal Medicine 07/25/20 1 Alexandria Peñaloza MD PCP - General Internal Medicine 11/21/20 05/13/22 Tom White [address] [place] [address] PCP - General Internal Medicine 05/14/22 10/06/22 Marisela Goodrich MD [address] [place] [address] PCP - General Internal Medicine 10/07/22 documented as of this encounter
--- OUTSIDE RECORDS SUMMARY | 2025-01-25 16:32 | XMS_ITS | Encounter Summary ---
Author Organization [facility] Address [address] [place] [address] Care Team Providers Care Feed Handler Name Role Phone Alexandria Peñaloza MD Primary Care Provider Unava Kristy Rush MD Primary Care Provider Un available Alexandria Peñaloza MD Primary Care Provider Unava ilTom Toscano Primary Care Provider [phone] Marisela Goodrich MD Primary Care Provider + Reason for Visit * Reason Comments E-prescribe Rx Request Encounter Details Date Type Department Care Team Description 12/17/2018 Refill Medicine/Pediatrics - [address] [phone] Geoffrey Camarillo PA-C E-prescribe Rx Request Social [...] encounter Miscellaneous Notes * Telephone Encounter - Cristobal Mares PA-C - 12/17/2018 4:40 PM EST Liquid just filled 2 days ago? * Telephone Encounter - Ligia Garcia M.A. - 12/17/2018 1:09 PM EST Pt has CSC for Oxy. Last ov 12/07/18. Last RX for this med 11/09/18. H/O Fibromyalgia * Telephone Encounter - Milagros Santoro - 12/17/2018 12:45 PM EST Patient would like script to be: E-PRESCRIBED/FAXED TO PHARMACY WHEN WAS THE PATIENT'S LAST APPOINTMENT IN ADULT MEDICINE? 12/07/18 WHEN WAS THE LAST TIME THE PATIENT SAW THEIR PCP? 07/08/18 Does patient have an upcoming appointment? no [...] N/A Patients current insurance carrier is: Payor: [employer] FFS / Plan: [employer] [facility] / Product Type: MEDICAID RISK documented in this encounter Plan of Treatment Not on file documented as of this encounter Visit Diagnoses Not on filedocumented in this encounter Care Teams Feed Handler Relationship Specialty Start Date End Date Alexandria Peñaloza MD PCP - General 03/26/10 07/24/20 Kristy Castrejon MD PCP - General Internal Medicine 07/25/20 1 Alexandria Peñaloza MD PCP - General Internal Medicine 11/21/20 05/13/22 Tom White [address] [place] [address] PCP - General Internal Medicine 05/14/22 10/06/22 Marisela Goodrich MD [address] [place] [address] PCP - General Internal Medicine 10/07/22 documented as of this encounter
--- OUTSIDE RECORDS SUMMARY | 2025-01-25 16:32 | XMS_ITS | Encounter Summary ---
Author Organization [facility] Address [address] [place] [address] Care Team Providers Care Lobster Man Name Role Phone Alexandria Peñaloza MD Primary Care Provider Unava Kristy Rush MD Primary Care Provider Un available Alexandria Peñaloza MD Primary Care Provider Unava Tom Booker Primary Care Provider [phone] Marisela Goodrich MD Primary Care Provider + Encounter Details Date Type Department Care Team Description 10/06/2016 Hospital Medical Records [address] [place] [address] Social History Tobacco Use Types Packs/Day Years [...] on filedocumented in this encounter Care Teams Lobster Man Relationship Specialty Start Date End Date Alexandria Peñaloza MD PCP - General 03/26/10 07/24/20 Kristy Castrejon MD PCP - General Internal Medicine 07/25/20 1 Alexandria Peñaloza MD PCP - General Internal Medicine 11/21/20 05/13/22 Tom White [address] [place] [address] PCP - General Internal Medicine 05/14/22 10/06/22 Marisela Goodrich MD [address] [place] [address] PCP - General Internal Medicine 10/07/22 documented as of this encounter
--- OUTSIDE RECORDS SUMMARY | 2025-01-25 16:32 | XMS_ITS | Encounter Summary ---
Author Organization [facility] Address [address] [place] [address] Care Team Providers Care Residential Collections Name Role Phone Alexandria Peñaloza MD Primary Care Provider Unava Kristy Rush MD Primary Care Provider Un available Alexandria Peñaloza MD Primary Care Provider Unava ilTom Toscano Primary Care Provider [phone] Marisela Goodrich MD Primary Care Provider + Encounter Details Date Type Department Care Team Description 11/24/2018 Hospital Medical Records [address] [place] [address] Preeti Álvarez Social History Tobacco Use Types [...] on filedocumented in this encounter Care Teams Residential Collections Relationship Specialty Start Date End Date Alexandria Peñaloza MD PCP - General 03/26/10 07/24/20 Kristy Castrejon MD PCP - General Internal Medicine 07/25/20 1 Alexandria Peñaloza MD PCP - General Internal Medicine 11/21/20 05/13/22 Tom White [address] [place] [address] PCP - General Internal Medicine 05/14/22 10/06/22 Marisela Goodrich MD [address] [place] [address] PCP - General Internal Medicine 10/07/22 documented as of this encounter
--- OUTSIDE RECORDS SUMMARY | 2025-01-25 16:32 | XMS_ITS | Encounter Summary ---
Author Organization [facility] Address [address] [place] [address] Care Team Providers Care Parts Department Manager Name Role Phone Alexandria Peñaloza MD Primary Care Provider UnaKristy Negro MD Primary Care Provider Un available Alexandria Peñaloza MD Primary Care Provider Soniava Tom Booker Primary Care Provider [phone] Marisela Goodrich MD Primary Care Provider + Encounter Details Date Type Department Care Team Description 05/24/2016 [facility] Medical Records [address] [place] [address] Abstract, Provider Social History Tobacco Use Types [...] on filedocumented in this encounter Care Teams Parts Department Manager Relationship Specialty Start Date End Date Alexandria Peñaloza MD PCP - General 03/26/10 07/24/20 Kristy Castrejon MD PCP - General Internal Medicine 07/25/20 1 Alexandria Peñaloza MD PCP - General Internal Medicine 11/21/20 05/13/22 Tom White [address] [place] [address] PCP - General Internal Medicine 05/14/22 10/06/22 Marisela Goodrich MD [address] [place] [address] PCP - General Internal Medicine 10/07/22 documented as of this encounter
--- OUTSIDE RECORDS SUMMARY | 2025-01-25 16:32 | XMS_ITS | Encounter Summary ---
Author Organization [facility] Address [address] [place] [address] Care Team Providers Care Database Engineer Name Role Phone Alexandria Peñaloza MD Primary Care Provider Unava Kristy Rush MD Primary Care Provider Un available Alexandria Peñaloza MD Primary Care Provider Unava ilable Tom White Primary Care Provider [phone] Marisela Goodrich MD Primary Care Provider + Encounter Details Date Type Department Care Team Description 05/14/2018 Advertising Material Distributor Report Medical Records [address] [place] [address] Fran Adams [address] [place] [address], [address] [place] [address] Social History Tobacco Use Types Packs/Day Years [...] on filedocumented in this encounter Care Teams Database Engineer Relationship Specialty Start Date End Date Alexandria Peñaloza MD PCP - General 03/26/10 07/24/20 Kristy Castrejon MD PCP - General Internal Medicine 07/25/20 1 Alexandria Peñaloza MD PCP - General Internal Medicine 11/21/20 05/13/22 Tom White [address] [place] [address] PCP - General Internal Medicine 05/14/22 10/06/22 Marisela Goodrich MD [address] [place] [address] PCP - General Internal Medicine 10/07/22 documented as of this encounter
--- OUTSIDE RECORDS SUMMARY | 2025-01-25 16:32 | XMS_ITS | Encounter Summary ---
Author Organization [facility] Address [address] [place] [address] Care Team Providers Care Produce Specialist Name Role Phone Alexandria Peñaloza MD Primary Care Provider Unava Kristy Rush MD Primary Care Provider Un available Alexandria Peñaloza MD Primary Care Provider Unava Tom Booker Primary Care Provider [phone] Marisela Goodrich MD Primary Care Provider + Encounter Details Date Type Department Care Team Description 07/22/2018 Hospital Medical Records [address] [place] [address] Reji Joshi MD Social History Tobacco Use [...] on filedocumented in this encounter Care Teams Produce Specialist Relationship Specialty Start Date End Date Alexandria Peñaloza MD PCP - General 03/26/10 07/24/20 Kristy Castrejon MD PCP - General Internal Medicine 07/25/20 1 Alexandria Peñaloza MD PCP - General Internal Medicine 11/21/20 05/13/22 Tom White [address] [place] [address] PCP - General Internal Medicine 05/14/22 10/06/22 Marisela Goodrich MD [address] [place] [address] PCP - General Internal Medicine 10/07/22 documented as of this encounter
--- OUTSIDE RECORDS SUMMARY | 2025-01-25 16:32 | XMS_ITS | Encounter Summary ---
Author Organization [facility] Address [address] [place] [address] Care Team Providers Care Materials Director Name Role Phone Kristy Castrejon MD Primary Care Provider Un available Alexandria Peñaloza MD Primary Care Provider Soniava Tom Booker Primary Care Provider [phone] Marisela Goodrich MD Primary Care Provider + Encounter Details Date Type Department Care Team Description 08/25/2020 Refill Medicine/Pediatrics - [address] [phone] India Feldman PA-C Social History Tobacco Use [...] on filedocumented in this encounter Care Teams Materials Director Relationship Specialty Start Date End Date Kristy Castrejon MD PCP - General Internal Medicine 07/25/20 Alexandria Peñaloza MD PCP - General Internal Medicine 11/21/20 05/13/22 Tom White [address] [place] [address] PCP - General Internal Medicine 05/14/22 10/06/22 Marisela Goodrich MD [address] [place] [address] PCP - General Internal Medicine 10/07/22 documented as of this encounter
--- OUTSIDE RECORDS SUMMARY | 2025-01-25 16:32 | XMS_ITS | Encounter Summary ---
Author Organization [facility] Address [address] [place] [address] Care Team Providers Care Mixing Machine Attendant Name Role Phone Alexandria Peñaloza MD Primary Care Provider Unava Kristy Rush MD Primary Care Provider Un available Alexandria Peñaloza MD Primary Care Provider Unava ilable Tom White Primary Care Provider [phone] Marisela Goodrich MD Primary Care Provider + Encounter Details Date Type Department Care Team Description 08/07/2016 Pt. Non Urgent Medic al Question Gastroenterology - [address] [address] Juanjose Connell MD Social History Tobacco Use [...] on filedocumented in this encounter Care Teams Mixing Machine Attendant Relationship Specialty Start Date End Date Alexandria Peñaloza MD PCP - General 03/26/10 07/24/20 Kristy Castrejon MD PCP - General Internal Medicine 07/25/20 1 Alexandria Peñaloza MD PCP - General Internal Medicine 11/21/20 05/13/22 Tom White [address] [place] [address] [id number] PCP - General Internal Medicine 05/14/22 10/06/22 Marisela Goodrich MD [address] [place] [address] PCP - General Internal Medicine 10/07/22 documented as of this encounter
--- OUTSIDE RECORDS SUMMARY | 2025-01-25 16:32 | XMS_ITS | Encounter Summary ---
Author Organization [facility] Address [address] [place] [address] Care Team Providers Care Regulatory Compliance Specialist Name Role Phone Alexandria Peñaloza MD Primary Care Provider Unava Kristy Rush MD Primary Care Provider Un available Alexandria Peñaloza MD Primary Care Provider Unava Tom Booker Primary Care Provider [phone] Marisela Goodrich MD Primary Care Provider + Encounter Details Date Type Department Care Team Description 02/07/2016 Hospital Medical Records [address] [place] [address] Yesenia Alcala Social History Tobacco Use Types [...] on filedocumented in this encounter Care Teams Regulatory Compliance Specialist Relationship Specialty Start Date End Date Alexandria Peñaloza MD PCP - General 03/26/10 07/24/20 Kristy Castrejon MD PCP - General Internal Medicine 07/25/20 1 Alexandria Peñaloza MD PCP - General Internal Medicine 11/21/20 05/13/22 Tom White [address] [place] [address] PCP - General Internal Medicine 05/14/22 10/06/22 Marisela Goodrich MD [address] [place] [address] PCP - General Internal Medicine 10/07/22 documented as of this encounter
--- OUTSIDE RECORDS SUMMARY | 2025-01-25 16:32 | XMS_ITS | Encounter Summary ---
Author Organization [facility] Address [address] [place] [address] Care Team Providers Care Mail Processing Equipment Mechanic Name Role Phone Alexandria Peñaloza MD Primary Care Provider Unava Kristy Rush MD Primary Care Provider Un available Alexandria Peñaloza MD Primary Care Provider Unava Tom Booker Primary Care Provider Marisela Goodrich MD Primary Care Provider + Encounter Details Date Type Department Care Team Description 08/19/2016 Hospital Medical Records [address] [place] [address] Social History Tobacco Use Types Packs/Day Years [...] in this encounter Care Teams Mail Processing Equipment Mechanic Relationship Specialty Start Date End Date Alexandria Peñaloza MD PCP - General 03/26/10 07/24/20 Kristy Castrejon MD PCP - General Internal Medicine 07/25/20 1 Alexandria Peñaloza MD PCP - General Internal Medicine 11/21/20 05/13/22 Tom White [address] [place] [address] PCP - General Internal Medicine 05/14/22 10/06/22 Marisela Goodrich MD [address] [place] [address] PCP - General Internal Medicine 10/07/22 documented as of this encounter
--- OUTSIDE RECORDS SUMMARY | 2025-01-25 16:33 | XMS_ITS | Encounter Summary ---
Author Organization [facility] Address [address] [place] [address] Care Team Providers Care Neuroscience Specialist Name Role Phone Alexandria Peñaloza MD Primary Care Provider Unava Kristy Rush MD Primary Care Provider Un available Alexandria Peñaloza MD Primary Care Provider Unava Tom Booker Primary Care Provider [phone] Marisela Goodrich MD Primary Care Provider + Encounter Details Date Type Department Care Team Description 06/30/2017 [facility] Medical Records [address] [place] [address] Abstract, Provider Social History Tobacco Use Types [...] on filedocumented in this encounter Care Teams Neuroscience Specialist Relationship Specialty Start Date End Date Alexandria Peñaloza MD PCP - General 03/26/10 07/24/20 Kristy Castrejon MD PCP - General Internal Medicine 07/25/20 1 Alexandria Peñaloza MD PCP - General Internal Medicine 11/21/20 05/13/22 Tom White [address] [place] [address] PCP - General Internal Medicine 05/14/22 10/06/22 Marisela Goodrich MD [address] [place] [address] PCP - General Internal Medicine 10/07/22 documented as of this encounter
--- OUTSIDE RECORDS SUMMARY | 2025-01-25 16:33 | XMS_ITS | Encounter Summary ---
Author Organization [facility] Address [address] [place] [address] Care Team Providers Care Business Office Technician Name Role Phone Alexandria Peñaloza MD Primary Care Provider Tom Jane Primary Care Provider [phone] Marisela Goodrich MD Primary Care Provider + Reason for Visit * Reason Onset Date Comments medication problems 03/21/2022 Encounter Details Date Type Department Care Team Description 03/21/2022 Telephone Adult Medicine - [address] [address] Alexandria Peñaloza MD medication problems Social History [...] Who is patients PCP?: Alexandria Peñaloza Payor: [employer] / Plan: [facility] / Product Type: MEDICAID RISK documented in this encounter Plan of Treatment Not on file documented as of this encounter Visit Diagnoses Diagnosis Controlled type 2 diabetes mellitus without complication, with long-term current use of insulin (HCC) documented in this encounter Care Teams Business Office Technician Relationship Specialty Start Date End Date Alexandria Peñaloza MD PCP - General Internal Medicine 11/21/20 05/13/22 Tom White [address] [place] [address] PCP - General Internal Medicine 05/14/22 10/06/22 Marisela Goodrich MD [address] [place] [address] PCP - General Internal Medicine 10/07/22 documented as of this encounter
--- OUTSIDE RECORDS SUMMARY | 2025-01-25 16:33 | XMS_ITS | Encounter Summary ---
Author Organization [facility] Address [address] [place] [address] Care Team Providers Care Electric Scoop Operator Name Role Phone Alexandria Peñaloza MD Primary Care Provider Unava Kristy Rush MD Primary Care Provider Un available Alexandria Peñaloza MD Primary Care Provider Unava ilTom Toscano Primary Care Provider [phone] Marisela Goodrich MD Primary Care Provider + Encounter Details Date Type Department Care Team Description 12/22/2019 Orders Only Medical Records [address] [place] [address] Robel Marks MD Social History Tobacco Use [...] filedocumented in this encounter Care Teams Electric Scoop Operator Relationship Specialty Start Date End Date Alexandria Peñaloza MD PCP - General 03/26/10 07/24/20 Kristy Castrejon MD PCP - General Internal Medicine 07/25/20 1 Alexandria Peñaloza MD PCP - General Internal Medicine 11/21/20 05/13/22 Tom White [address] [place], [place] [phone] PCP - General Internal Medicine 05/14/22 10/06/22 Marisela Goodrich MD [address] [place], [place] [phone] PCP - General Internal Medicine 10/07/22 documented as of this encounter
--- OUTSIDE RECORDS SUMMARY | 2025-01-25 16:33 | XMS_ITS | Encounter Summary ---
Author Organization [facility] Address [address] [place] [address] Care Team Providers Care Shelving Supervisor Name Role Phone Alexandria Peñaloza MD Primary Care Provider Unava Kristy Rush MD Primary Care Provider Un available Alexandria Peñaloza MD Primary Care Provider Soniava Tom Booker Primary Care Provider [phone] Marisela Goodrich MD Primary Care Provider + Encounter Details Date Type Department Care Team Description 10/22/2019 Release of Information Medical Records [address] [place] [address] Abstract, Provider Social History Tobacco Use Types [...] on filedocumented in this encounter Care Teams Shelving Supervisor Relationship Specialty Start Date End Date Alexandria Peñaloza MD PCP - General 03/26/10 07/24/20 Kristy Castrejon MD PCP - General Internal Medicine 07/25/20 1 Alexandria Peñaloza MD PCP - General Internal Medicine 11/21/20 05/13/22 Tom White [address] [place] [address] PCP - General Internal Medicine 05/14/22 10/06/22 Marisela Goodrich MD [address] [place] [address] PCP - General Internal Medicine 10/07/22 documented as of this encounter
--- OUTSIDE RECORDS SUMMARY | 2025-01-25 16:33 | XMS_ITS | Encounter Summary ---
Author Organization [facility] Address [address] [place] [address] Care Team Providers Care Maxillofacial Prosthodontist Name Role Phone Alexandria Peñaloza MD Primary Care Provider Unava Kristy Rush MD Primary Care Provider Un available Alexandria Peñaloza MD Primary Care Provider Unava ilable Tom White Primary Care Provider Marisela Goodrich MD Primary Care Provider + Reason for Visit * Reason Comments E-prescribe Rx Request Encounter Details Date Type Department Care Team Description 03/23/2014 Refill Medicine/Pediatrics - [address] [phone] Alexandria Peñaloza MD E-prescribe Rx Request Social [...] insurance carrier is: Pay[place] Plan: MEDICAID [facility] Product Type: MEDICAIDFEE-FOR-SERVICE documented in this encounter Plan of Treatment Not on file documented as of this encounter Visit Diagnoses Not on filedocumented in this encounter Care Teams Maxillofacial Prosthodontist Relationship Specialty Start Date End Date Alexandria Peñaloza MD PCP - General 03/26/10 07/24/20 Kristy Castrejon MD PCP - General Internal Medicine 07/25/20 1 Alexandria Peñaloza MD PCP - General Internal Medicine 11/21/20 05/13/22 Tom White [address] [place] [address] PCP - General Internal Medicine 05/14/22 10/06/22 Marisela Goodrich MD [address] [place] [address] [id number] PCP - General Internal Medicine 10/07/22 documented as of this encounter
--- OUTSIDE RECORDS SUMMARY | 2025-01-25 16:33 | XMS_ITS | Encounter Summary ---
Author Organization [facility] Address [address] [place] [address] Care Team Providers Care Payroll Accounting Manager Name Role Phone Alexandria Peñaloza MD Primary Care Provider Tom Jane Primary Care Provider [phone] Marisela Goodrich MD Primary Care Provider + Reason for Visit * Reason Onset Date Comments radiology 11/23/2021 Encounter Details Date Type Department Care Team Description 11/23/2021 Telephone MRI - [place] [address] [place] [address] Aye Ortega PA-C [address] [place] [address] radiology Social History Tobacco Use Types Packs/Day [...] and will need to be scanned at [facility] on open mri machine due to her BMI. Can you please place external order? Thank you, [facility] Mri department ext [phone] documented in this encounter Plan of Treatment Not on file documented as of this encounter Visit Diagnoses Not on filedocumented in this encounter Care Teams Payroll Accounting Manager Relationship Specialty Start Date End Date Alexandria Peñaloza MD PCP - General Internal Medicine 11/21/20 05/13/22 Tom White [address] [place] [address] PCP - General Internal Medicine 05/14/22 10/06/22 Marisela Goodrich MD [address] [place] [address] PCP - General Internal Medicine 10/07/22 documented as of this encounter
--- OUTSIDE RECORDS SUMMARY | 2025-01-25 16:33 | XMS_ITS | Encounter Summary ---
Author Organization [facility] Address [address] [place] [address] Care Team Providers Care Barrel Line Operator Name Role Phone Tom White Primary Care Provider [phone] Marisela Goodrich MD Primary Care Provider + Reason for Visit * Reason Comments E-prescribe Rx Request Encounter Details Date Type Department Care Team Description 08/01/2022 Refill Medicine/Pediatrics - [address] [address] Tatum Thomas PA-C E-prescribe Rx Request Social [...] ?? Patients current insurance carrier is: Payor: [facility] / Plan: [facility] / Product Type: MEDICAID RISK ?? documented in this encounter Plan of Treatment Not on file documented as of this encounter Visit Diagnoses Not on filedocumented in this encounter Care Teams Barrel Line Operator Relationship Specialty Start Date End Date Tom White [address] [place], [place] [phone] PCP - General Internal Medicine 05/14/22 10/06/22 Marisela Goodrich MD [address] [place], [place] [phone] PCP - General Internal Medicine 10/07/22 documented as of this encounter
--- OUTSIDE RECORDS SUMMARY | 2025-01-25 16:33 | XMS_ITS | Encounter Summary ---
Author Organization [facility] Address [address] [place] [address] Care Team Providers Care Pension Adviser Name Role Phone Alexandria Peñaloza MD Primary Care Provider Unava Kristy Rush MD Primary Care Provider Un available Alexandria Peñaloza MD Primary Care Provider Soniava Tom Booker Primary Care Provider [phone] Marisela Goodrich MD Primary Care Provider + Encounter Details Date Type Department Care Team Description 04/06/2018 Tape Editor Report Medical Records [address] [place] [address] Nam Davenport MD Social History Tobacco Use Types Packs/Day [...] on filedocumented in this encounter Care Teams Pension Adviser Relationship Specialty Start Date End Date Alexandria Peñaloza MD PCP - General 03/26/10 07/24/20 Kristy Castrejon MD PCP - General Internal Medicine 07/25/20 1 Alexandria Peñaloza MD PCP - General Internal Medicine 11/21/20 05/13/22 Tom White [address] [place] [address] PCP - General Internal Medicine 05/14/22 10/06/22 Marisela Goodrich MD [address] [place] [address] PCP - General Internal Medicine 10/07/22 documented as of this encounter
--- OUTSIDE RECORDS SUMMARY | 2025-01-25 16:33 | XMS_ITS | Encounter Summary ---
Author Organization [facility] Address [address] [place] [address] Care Team Providers Care Luggage Attendant Name Role Phone Tom White Primary Care Provider [phone] Marisela Goodrich MD Primary Care Provider + Encounter Details Date Type Department Care Team Description 07/10/2022 Pt. Referral Request [facility] [address] [place] [address] Md Adis Social History Tobacco Use Types [...] on filedocumented in this encounter Care Teams Luggage Attendant Relationship Specialty Start Date End Date Tom White [address] [place] [address] PCP - General Internal Medicine 05/14/22 10/06/22 Marisela Goodrich MD [address] [place] [address] PCP - General Internal Medicine 10/07/22 documented as of this encounter
--- OUTSIDE RECORDS SUMMARY | 2025-01-25 16:33 | XMS_ITS | Encounter Summary ---
Author Organization [facility] Address [address] [place] [address] Care Team Providers Care Logistics Lead Name Role Phone Alexandria Peñaloza MD Primary Care Provider Unava Kristy Rush MD Primary Care Provider Un available Alexandria Peñaloza MD Primary Care Provider Unava Tom Booker Primary Care Provider [phone] Marisela Goodrich MD Primary Care Provider + Encounter Details Date Type Department Care Team Description 04/11/2017 Hospital Medical Records [address] [place] [address] Ronaldo Bautista MD Social History Tobacco Use [...] on filedocumented in this encounter Care Teams Logistics Lead Relationship Specialty Start Date End Date Alexandria Peñaloza MD PCP - General 03/26/10 07/24/20 Kristy Castrejon MD PCP - General Internal Medicine 07/25/20 1 Alexandria Peñaloza MD PCP - General Internal Medicine 11/21/20 05/13/22 Tom White [address] [place] [address] PCP - General Internal Medicine 05/14/22 10/06/22 Marisela Goodrich MD [address] [place] [address] PCP - General Internal Medicine 10/07/22 documented as of this encounter
--- OUTSIDE RECORDS SUMMARY | 2025-01-25 16:33 | XMS_ITS | Encounter Summary ---
Author Organization [facility] Address [address] [place] [address] Care Team Providers Care Knockup Worker Name Role Phone Alexandria Peñaloza MD Primary Care Provider Unava Kristy Rush MD Primary Care Provider Un available Alexandria Peñaloza MD Primary Care Provider Unava Tom Booker Primary Care Provider [phone] Marisela Goodrich MD Primary Care Provider + Encounter Details Date Type Department Care Team Description 09/02/2019 [facility] Medical Records [address] [place] [address] Beatriz Farrell NP Social History Tobacco Use [...] on filedocumented in this encounter Care Teams Knockup Worker Relationship Specialty Start Date End Date Alexandria Peñaloza MD PCP - General 03/26/10 07/24/20 Kristy Castrejon MD PCP - General Internal Medicine 07/25/20 1 Alexandria Peñaloza MD PCP - General Internal Medicine 11/21/20 05/13/22 Tom White [address] [place] [address] PCP - General Internal Medicine 05/14/22 10/06/22 Marisela Goodrich MD [address] [place] [address] PCP - General Internal Medicine 10/07/22 documented as of this encounter
--- OUTSIDE RECORDS SUMMARY | 2025-01-25 16:33 | XMS_ITS | Encounter Summary ---
Author Organization [facility] Address [address] [place] [address] Care Team Providers Care Canadian Bacon Tier Name Role Phone Alexandria Peñaloza MD Primary Care Provider Unava Kristy Rush MD Primary Care Provider Un available Alexandria Peñaloza MD Primary Care Provider Unava ilTom Toscano Primary Care Provider [phone] Marisela Goodrich MD Primary Care Provider + Encounter Details Date Type Department Care Team Description 09/02/2019 [facility] Medical Records [address] [place] [address] Juanjose Connell MD Social History Tobacco Use [...] on filedocumented in this encounter Care Teams Canadian Bacon Tier Relationship Specialty Start Date End Date Alexandria Peñaloza MD PCP - General 03/26/10 07/24/20 Kristy Castrejon MD PCP - General Internal Medicine 07/25/20 1 Alexandria Peñaloza MD PCP - General Internal Medicine 11/21/20 05/13/22 Tom White [address] [place] [address] PCP - General Internal Medicine 05/14/22 10/06/22 Marisela Goodrich MD [address] [place] [address] PCP - General Internal Medicine 10/07/22 documented as of this encounter
--- OUTSIDE RECORDS SUMMARY | 2025-01-25 16:33 | XMS_ITS | Encounter Summary ---
Author Organization [facility] Address [address] [place] [address] Care Team Providers Care General Activities Therapist Name Role Phone Alexandria Peñaloza MD Primary Care Provider Unava Kristy Rush MD Primary Care Provider Un available Alexandria Peñaloza MD Primary Care Provider Unava ilable Tom White Primary Care Provider [phone] Marisela Goodrich MD Primary Care Provider + Reason for Visit * Reason Onset Date Comments External Sleep Study Request 11/24/2019 Cecelia e sleep study Encounter Details Date Type Department Care Team Description 11/24/2019 Telephone Medicine/Pediatrics - [address] [phone] Kristy Castrejon MD External Sleep Study Request [...] 11/24/2019 1:44 PM EST [facility] auth # [id number] 11/20/19- 02/19/20 [id number] Order, benefits faxed to Sleep Medicine Notification letter sent. documented in this encounter Plan of Treatment Not on file documented as of this encounter Visit Diagnoses Not on filedocumented in this encounter Care Teams General Activities Therapist Relationship Specialty Start Date End Date Alexandria Peñaloza MD PCP - General 03/26/10 07/24/20 Kristy Castrejon MD PCP - General Internal Medicine 07/25/20 1 Alexandria Peñaloza MD PCP - General Internal Medicine 11/21/20 05/13/22 Tom White [address] [place] [address] PCP - General Internal Medicine 05/14/22 10/06/22 Marisela Goodrich MD [address] [place] [address] PCP - General Internal Medicine 10/07/22 documented as of this encounter
--- OUTSIDE RECORDS SUMMARY | 2025-01-25 16:33 | XMS_ITS | Encounter Summary ---
Author Organization [facility] Address [address] [place] [address] Care Team Providers Care Farm Marketer Name Role Phone Alexandria Peñaloza MD Primary Care Provider Unava Kristy Rush MD Primary Care Provider Un available Alexandria Peñaloza MD Primary Care Provider Unava ilTom Toscano Primary Care Provider [phone] Marisela Goodrich MD Primary Care Provider + Encounter Details Date Type Department Care Team Description 08/15/2016 Local Company Truck Driver Report Medical Records [address] [place] [address] Stephen Reynolds MD Social History Tobacco Use [...] on filedocumented in this encounter Care Teams Farm Marketer Relationship Specialty Start Date End Date Alexandria Peñaloza MD PCP - General 03/26/10 07/24/20 Kristy Castrejon MD PCP - General Internal Medicine 07/25/20 1 Alexandria Peñaloza MD PCP - General Internal Medicine 11/21/20 05/13/22 Tom White [address] [place] [address] PCP - General Internal Medicine 05/14/22 10/06/22 Marisela Goodrich MD [address] [place] [address] PCP - General Internal Medicine 10/07/22 documented as of this encounter
--- OUTSIDE RECORDS SUMMARY | 2025-01-25 16:33 | XMS_ITS | Encounter Summary ---
Author Organization [facility] Address [address] [place] [address] Care Team Providers Care Ramp Attendant Name Role Phone Tom White Primary Care Provider [phone] Marisela Goodrich MD Primary Care Provider + Reason for Visit * Reason Onset Date Comments Mychart Rx Refill 09/05/2022 Encounter Details Date Type Department Care Team Description 09/05/2022 Refill Medicine/Pediatrics - [address] [address] Aye Ortega PA-C [address] [place] [address] Mychart Rx Refill Social History Tobacco Use [...] on filedocumented in this encounter Care Teams Ramp Attendant Relationship Specialty Start Date End Date Tom White [address] [place] [address] PCP - General Internal Medicine 05/14/22 10/06/22 Marisela Goodrich MD [address] [place] [address] PCP - General Internal Medicine 10/07/22 documented as of this encounter
--- OUTSIDE RECORDS SUMMARY | 2025-01-25 16:33 | XMS_ITS | Encounter Summary ---
Author Organization [facility] Address [address] [place] [address] Care Team Providers Care Pvc Monitor Name Role Phone Alexandria Peñaloza MD Primary Care Provider Kristy Milan MD Primary Care Provider Un available Alexandria Peñaloza MD Primary Care Provider Soniava Tom Booker Primary Care Provider [phone] Marisela Goodrich MD Primary Care Provider + Encounter Details Date Type Department Care Team Description 04/11/2018 [facility] Medical Records [address] [place] [address] Social History Tobacco Use Types Packs/Day Years [...] on filedocumented in this encounter Care Teams Pvc Monitor Relationship Specialty Start Date End Date Alexandria Peñaloza MD PCP - General 03/26/10 07/24/20 Kristy Castrejon MD PCP - General Internal Medicine 07/25/20 1 Alexandria Peñaloza MD PCP - General Internal Medicine 11/21/20 05/13/22 Tom White [address] [place] [address] PCP - General Internal Medicine 05/14/22 10/06/22 Marisela Goodrich MD [address] [place] [address] PCP - General Internal Medicine 10/07/22 documented as of this encounter
--- OUTSIDE RECORDS SUMMARY | 2025-01-25 16:33 | XMS_ITS | Encounter Summary ---
Author Organization [facility] Address [address] [place] [address] Care Team Providers Care Detail Maker And Fitter Name Role Phone Alexandria Peñaloza MD Primary Care Provider Unava Kristy Rush MD Primary Care Provider Un available Alexandria Peñaloza MD Primary Care Provider Soniava Tom Booker Primary Care Provider [phone] Marisela Goodrich MD Primary Care Provider + Encounter Details Date Type Department Care Team Description 04/08/2017 Electrician'S Assistant Report Medical Records [address] [place] [address] Marcus Cisneros Social History Tobacco Use Types [...] on filedocumented in this encounter Care Teams Detail Maker And Fitter Relationship Specialty Start Date End Date Alexandria Peñaloza MD PCP - General 03/26/10 07/24/20 Kristy Castrejon MD PCP - General Internal Medicine 07/25/20 1 Alexandria Peñaloza MD PCP - General Internal Medicine 11/21/20 05/13/22 Tom White [address] [place] [address] PCP - General Internal Medicine 05/14/22 10/06/22 Marisela Goodrich MD [address] [place] [address] PCP - General Internal Medicine 10/07/22 documented as of this encounter
--- OUTSIDE RECORDS SUMMARY | 2025-01-25 16:33 | XMS_ITS | Encounter Summary ---
Author Organization [facility] Address [address] [place] [address] Care Team Providers Care Electric Scoop Operator Name Role Phone Alexandria Peñaloza MD Primary Care Provider Unava Kristy Rush MD Primary Care Provider Un available Alexandria Peñaloza MD Primary Care Provider Unava ilTom Toscano Primary Care Provider Marisela Goodrich MD Primary Care Provider + Encounter Details Date Type Department Care Team Description 12/17/2011 Rental Sales Representative Report Medical Records [address] [place] [address] Reji Hensley [address] [place] [address] Social History Tobacco Use Types Packs/Day Years [...] Internal Medicine 11/21/20 05/13/22 Tom White [address] [place] [address] PCP - General Internal Medicine 05/14/22 10/06/22 Marisela Goodrich MD [address] [place] [address] PCP - General Internal Medicine 10/07/22 documented as of this encounter
--- OUTSIDE RECORDS SUMMARY | 2025-01-25 16:33 | XMS_ITS | Encounter Summary ---
Author Organization [facility] Address [address] [place] [address] Care Team Providers Care Airline Lounge Receptionist Name Role Phone Alexandria Peñaloza MD Primary Care Provider Tom Jane Primary Care Provider Marisela Goodrich MD Primary Care Provider + Encounter Details Date Type Department Care Team Description 02/27/2022 [facility] Medical Records [address] [place] [address] Abstract, Provider Social History Tobacco Use Types [...] on filedocumented in this encounter Care Teams Airline Lounge Receptionist Relationship Specialty Start Date End Date Alexandria Peñaloza MD PCP - General Internal Medicine 11/21/20 05/13/22 Tom White [address] [place] [address] PCP - General Internal Medicine 05/14/22 10/06/22 Marisela Goodrich MD [address] [place] [address] PCP - General Internal Medicine 10/07/22 documented as of this encounter
--- OUTSIDE RECORDS SUMMARY | 2025-01-25 16:33 | XMS_ITS | Encounter Summary ---
Author Organization [facility] Address [address] [place] [address] Care Team Providers Care Coffee Host Name Role Phone Alexandria Peñaloza MD Primary Care Provider UnaKristy Negro MD Primary Care Provider Un available Alexandria Peñaloza MD Primary Care Provider Soniava Tom Booker Primary Care Provider [phone] Marisela Goodrich MD Primary Care Provider + Encounter Details Date Type Department Care Team Description 04/14/2018 [facility] Medical Records [address] [place] [address] Social History Tobacco Use Types Packs/Day Years [...] on filedocumented in this encounter Care Teams Coffee Host Relationship Specialty Start Date End Date Alexandria Peñaloza MD PCP - General 03/26/10 07/24/20 Kristy Castrejon MD PCP - General Internal Medicine 07/25/20 1 Alexandria Peñaloza MD PCP - General Internal Medicine 11/21/20 05/13/22 Tom White [address] [place] [address] PCP - General Internal Medicine 05/14/22 10/06/22 Marisela Goodrich MD [address] [place] [address] PCP - General Internal Medicine 10/07/22 documented as of this encounter
--- OUTSIDE RECORDS SUMMARY | 2025-01-25 16:33 | XMS_ITS | Encounter Summary ---
Author Organization [facility] Address [address] [place] [address] Care Team Providers Care Printing Machine Operator Name Role Phone Alexandria Peñaloza MD Primary Care Provider Unava Kristy Rush MD Primary Care Provider Un available Alexandria Peñaloza MD Primary Care Provider Unava ilTom Toscano Primary Care Provider [phone] Marisela Goodrich MD Primary Care Provider + Encounter Details Date Type Department Care Team Description 11/21/2016 Receiving Operator Report Medical Records [address] [place] [address] Stephen Reynolds MD Social History Tobacco Use [...] on filedocumented in this encounter Care Teams Printing Machine Operator Relationship Specialty Start Date End Date Alexandria Peñaloza MD PCP - General 03/26/10 07/24/20 Kristy Castrejon MD PCP - General Internal Medicine 07/25/20 1 Alexandria Peñaloza MD PCP - General Internal Medicine 11/21/20 05/13/22 Tom White [address] [place] [address] PCP - General Internal Medicine 05/14/22 10/06/22 Marisela Goodrich MD [address] [place] [address] PCP - General Internal Medicine 10/07/22 documented as of this encounter
--- OUTSIDE RECORDS SUMMARY | 2025-01-25 16:33 | XMS_ITS | Encounter Summary ---
Author Organization [facility] Address [address] [place] [address] Care Team Providers Care Blockman Name Role Phone Alexandria Peñaloza MD Primary Care Provider Unava Kristy Rush MD Primary Care Provider Un available Alexandria Peñaloza MD Primary Care Provider Unava ilTom Toscano Primary Care Provider [phone] Marisela Goodrich MD Primary Care Provider + Encounter Details Date Type Department Care Team Description 01/21/2011 Senior Technical Support Engineer Report Medical Records [address] [place] [address] Reji Hensley [address] [place] [address] Social History Tobacco Use Types Packs/Day Years [...] on filedocumented in this encounter Care Teams Blockman Relationship Specialty Start Date End Date Alexandria Peñaloza MD PCP - General 03/26/10 07/24/20 Kristy Castrejon MD PCP - General Internal Medicine 07/25/20 1 Alexandria Peñaloza MD PCP - General Internal Medicine 11/21/20 05/13/22 Tom White [address] [place] [address] PCP - General Internal Medicine 05/14/22 10/06/22 Marisela Goodrich MD [address] [place] [address] PCP - General Internal Medicine 10/07/22 documented as of this encounter
--- OUTSIDE RECORDS SUMMARY | 2025-01-25 16:33 | XMS_ITS | Encounter Summary ---
Author Organization [facility] Address [address] [place] [address] Care Team Providers Care Service Establishment Attendant Name Role Phone Tom White Primary Care Provider [phone] Marisela Goodrich MD Primary Care Provider + Reason for Visit * Reason Onset Date Comments Prior Authorization 06/26/2022 Encounter Details Date Type Department Care Team Description 06/26/2022 Telephone Medicine/Pediatrics - [address] [address] Tatum Thomas PA-C Prior Authorization Social History [...] My Meds request: Yes -- Winkler Code [id number] Name of Medication pregabalin (LYRICA) Dose of Medication 75 MG capsule What is the RX # from the faxed refill? How does patient take this med? TAKE 1 CAPSULE BY MOUTH TWICE A DAY What Pharmacy did the fax come from: [facility] Pharmacy fax #: [phone] [employer] Party Information from fax: What Prescription Plan does the patient have? [facility] BIN/PCN if applicable: Cardholder ID: Person Code: Relationship Code: Help desk phone: documented in this encounter Plan of Treatment Not on file documented as of this encounter Visit Diagnoses Not on filedocumented in this encounter Care Teams Service Establishment Attendant Relationship Specialty Start Date End Date Tom White [address] [place] [address] PCP - General Internal Medicine 05/14/22 10/06/22 Marisela Goodrich MD [address] [place] [address] PCP - General Internal Medicine 10/07/22 documented as of this encounter
--- OUTSIDE RECORDS SUMMARY | 2025-01-25 16:33 | XMS_ITS | Encounter Summary ---
Author Organization [facility] Address [address] [place] [address] Care Team Providers Care Life Insurance Salesperson Name Role Phone Alexandria Peñaloza MD Primary Care Provider Unava Kristy Rush MD Primary Care Provider Un available Alexandria Peñaloza MD Primary Care Provider Unava Tom Booker Primary Care Provider [phone] Marisela Goodrich MD Primary Care Provider + Encounter Details Date Type Department Care Team Description 09/12/2019 Pt. Non Urgent Medical Question SIGN SHOP SUPERVISOR - [address] [address] [place], ANUM [address] [place] [address] Social History Tobacco Use Types [...] filedocumented in this encounter Care Teams Life Insurance Salesperson Relationship Specialty Start Date End Date Alexandria Peñaloza MD PCP - General 03/26/10 07/24/20 Kristy Castrejon MD PCP - General Internal Medicine 07/25/20 1 Alexandria Peñaloza MD PCP - General Internal Medicine 11/21/20 05/13/22 Tom White [address] [place] [address] PCP - General Internal Medicine 05/14/22 10/06/22 Marisela Goodrich MD [address] [place] [address] PCP - General Internal Medicine 10/07/22 documented as of this encounter
--- OUTSIDE RECORDS SUMMARY | 2025-01-25 16:33 | XMS_ITS | Encounter Summary ---
Author Organization [facility] Address [address] [place] [address] Care Team Providers Care Assistant Community Director Name Role Phone Alexandria Peñaloza MD Primary Care Provider Unava Kristy Rush MD Primary Care Provider Un available Alexandria Peñaloza MD Primary Care Provider Unava Tom Booker Primary Care Provider Marisela Goodrich MD Primary Care Provider + Encounter Details Date Type Department Care Team Description 10/24/2019 Hospital Medical Records [address] [place] [address] Joleen Ewing, OIL EXPERT Social History Tobacco Use Types Packs/Day Years [...] filedocumented in this encounter Care Teams Assistant Community Director Relationship Specialty Start Date End Date Alexandria Peñaloza MD PCP - General 03/26/10 07/24/20 Kristy Castrejon MD PCP - General Internal Medicine 07/25/20 1 Alexandria Peñaloza MD PCP - General Internal Medicine 11/21/20 05/13/22 Tom White [address] [place] [address] PCP - General Internal Medicine 05/14/22 10/06/22 Marisela Goodrich MD [address] [place] [address] PCP - General Internal Medicine 10/07/22 documented as of this encounter
--- OUTSIDE RECORDS SUMMARY | 2025-01-25 16:33 | XMS_ITS | Encounter Summary ---
Author Organization [facility] Address [address] [place] [address] Care Team Providers Care Scale Reclamation Tender Name Role Phone Alexandria Peñaloza MD Primary Care Provider Unava Kristy Rush MD Primary Care Provider Un available Alexandria Peñaloza MD Primary Care Provider Unava ilTom Toscano Primary Care Provider [phone] Marisela Goodrich MD Primary Care Provider + Reason for Visit * Reason Onset Date Comments Prior Authorization 05/30/2014 esomeprazole (NEXIUM) 40 MG capsule Encounter Details Date Type Department Care Team Description 05/30/2014 Telephone Medicine/Pediatrics - [address] [address] Alexandria Peñaloza MD Prior Authorization (esomeprazole (NEXIUM) [...] this problem Patients current medical insurance [facility] pcc plan What Prescription Plan does the patient have? Prescription Plan Tel # from back of prescription ID card [phone] What is the patients Prescription Plan ID #? [id number] What Pharmacy does the patient use? [facility]: [place]ID-[place] / Plan: MEDICAID PCC / Product Type: MEDICAID [id number] documented in this encounter Plan of Treatment Not on file documented as of this encounter Visit Diagnoses Not on filedocumented in this encounter Care Teams Scale Reclamation Tender Relationship Specialty Start Date End Date Alexandria Peñaloza MD PCP - General 03/26/10 07/24/20 Kristy Castrejon MD PCP - General Internal Medicine 07/25/20 1 Alexandria Peñaloza MD PCP - General Internal Medicine 11/21/20 05/13/22 Tom White [address] [place] [address] PCP - General Internal Medicine 05/14/22 10/06/22 Marisela Goodrich MD [address] [place] [address] PCP - General Internal Medicine 10/07/22 documented as of this encounter
--- OUTSIDE RECORDS SUMMARY | 2025-01-25 16:33 | XMS_ITS | Encounter Summary ---
Author Organization [facility] Address [address] [place] [address] Care Team Providers Care Photonics Engineering Technician Name Role Phone Tom White Primary Care Provider Marisela Goodrich MD Primary Care Provider + Encounter Details Date Type Department Care Team Description 06/24/2022 Refill Medicine/Pediatrics - [address] [address] Kristy Castrejon MD Social History Tobacco Use [...] on filedocumented in this encounter Care Teams Photonics Engineering Technician Relationship Specialty Start Date End Date Tom White [address] [place] [address] PCP - General Internal Medicine 05/14/22 10/06/22 Marisela Goodrich MD [address] [place] [address] PCP - General Internal Medicine 10/07/22 documented as of this encounter
--- OUTSIDE RECORDS SUMMARY | 2025-01-25 16:33 | XMS_ITS | Encounter Summary ---
Author Organization [facility] Address [address] [place] [address] Care Team Providers Care Ortho Tech Name Role Phone Alexandria Peñaloza MD Primary Care Provider Unava Kristy Rush MD Primary Care Provider Un available Alexandria Peñaloza MD Primary Care Provider Unava Tom Booker Primary Care Provider [phone] Marisela Goodrich MD Primary Care Provider + Encounter Details Date Type Department Care Team Description 08/31/2011 Pt. Referral Request [facility] [address] [place] [address] Md Adis Social History Tobacco Use Types [...] on filedocumented in this encounter Care Teams Ortho Tech Relationship Specialty Start Date End Date Alexandria Peñaloza MD PCP - General 03/26/10 07/24/20 Kristy Castrejon MD PCP - General Internal Medicine 07/25/20 1 Alexandria Peñaloza MD PCP - General Internal Medicine 11/21/20 05/13/22 Tom White [address] [place] [address] PCP - General Internal Medicine 05/14/22 10/06/22 Marisela Goodrich MD [address] [place] [address] PCP - General Internal Medicine 10/07/22 documented as of this encounter
--- OUTSIDE RECORDS SUMMARY | 2025-01-25 16:33 | XMS_ITS | Encounter Summary ---
Author Organization [facility] Address [address] [place] [address] Care Team Providers Care Drop Hammer Mechanic Name Role Phone Alexandria Peñaloza MD Primary Care Provider UnaKristy Negro MD Primary Care Provider Un available Alexandria Peñaloza MD Primary Care Provider Soniava Tom Booker Primary Care Provider Marisela Goodrich MD Primary Care Provider + Encounter Details Date Type Department Care Team Description 10/16/2011 Janitor Report Medical Records [address] [place] [address] Mushtaq Cerda MD Social History Tobacco Use [...] filedocumented in this encounter Care Teams Drop Hammer Mechanic Relationship Specialty Start Date End Date Alexandria Peñaloza MD PCP - General 03/26/10 07/24/20 Kristy Castrejon MD PCP - General Internal Medicine 07/25/20 1 Alexandria Peñaloza MD PCP - General Internal Medicine 11/21/20 05/13/22 Tom White [address] [place] [address] PCP - General Internal Medicine 05/14/22 10/06/22 Marisela Goodrich MD [address] [place] [address] PCP - General Internal Medicine 10/07/22 documented as of this encounter
--- OUTSIDE RECORDS SUMMARY | 2025-01-25 16:33 | XMS_ITS | Encounter Summary ---
Author Organization [facility] Address [address] [place] [address] Care Team Providers Care Aeronautical Products Sales Engineer Name Role Phone Alexandria Peñaloza MD Primary Care Provider Unava Kristy Rush MD Primary Care Provider Un available Alexandria Peñaloza MD Primary Care Provider Unava Tom Booker Primary Care Provider Marisela Goodrich MD Primary Care Provider + Encounter Details Date Type Department Care Team Description 05/04/2014 [facility] Medical Records [address] [place] [address] Sam Leary, DANTE Social History Tobacco Use [...] on filedocumented in this encounter Care Teams Aeronautical Products Sales Engineer Relationship Specialty Start Date End Date Alexandria Peñaloza MD PCP - General 03/26/10 07/24/20 Kristy Castrejon MD PCP - General Internal Medicine 07/25/20 1 Alexandria Peñaloza MD PCP - General Internal Medicine 11/21/20 05/13/22 Tom White [address] [place] [address] PCP - General Internal Medicine 05/14/22 10/06/22 Marisela Goodrich MD [address] [place] [address] PCP - General Internal Medicine 10/07/22 documented as of this encounter
--- OUTSIDE RECORDS SUMMARY | 2025-01-25 16:33 | XMS_ITS | Encounter Summary ---
Author Organization [facility] Address [address] [place] [address] Care Team Providers Care Title Clerk Name Role Phone Alexandria Peñaloza MD Primary Care Provider Tom Jane Primary Care Provider [phone] Marisela Goodrich MD Primary Care Provider + Encounter Details Date Type Department Care Team Description 12/17/2021 Orders Only Medical Records [address] [place] [address] Aye Ortega, ANIA [address] [place] [address] Social History Tobacco Use Types Packs/Day Years [...] on filedocumented in this encounter Care Teams Title Clerk Relationship Specialty Start Date End Date Alexandria Peñaloza MD PCP - General Internal Medicine 11/21/20 05/13/22 Tom White [address] [place] [address] PCP - General Internal Medicine 05/14/22 10/06/22 Marisela Goodrich MD [address] [place] [address] PCP - General Internal Medicine 10/07/22 documented as of this encounter
--- OUTSIDE RECORDS SUMMARY | 2025-01-25 16:33 | XMS_ITS | Encounter Summary ---
Author Organization [facility] Address [address] [place] [address] Care Team Providers Care Project Development Manager Name Role Phone Alexandria Peñaloza MD Primary Care Provider Tom Jane Primary Care Provider [phone] Marisela Goodrich MD Primary Care Provider + Encounter Details Date Type Department Care Team Description 11/05/2021 Pt. Non Urgent Medic al Question Medicine/Pediatrics - [address] [address] Alexandria Peñaloza MD Social History Tobacco Use [...] on filedocumented in this encounter Care Teams Project Development Manager Relationship Specialty Start Date End Date Alexandria Peñaloza MD PCP - General Internal Medicine 11/21/20 05/13/22 Tom White [address] [place] [address] PCP - General Internal Medicine 05/14/22 10/06/22 Marisela Goodrich MD [address] [place], [place] [phone] PCP - General Internal Medicine 10/07/22 documented as of this encounter
--- OUTSIDE RECORDS SUMMARY | 2025-01-25 16:33 | XMS_ITS | Encounter Summary ---
Author Organization [facility] Address [address] [place] [address] Care Team Providers Care Maxillofacial Surgeon Name Role Phone Tom White Primary Care Provider [phone] Marisela Goodrich MD Primary Care Provider + Encounter Details Date Type Department Care Team Description 07/10/2022 Pt. Non Urgent Medic al Question Medicine/Pediatrics - [address] [address] Tatum Thomas PA-C Social History Tobacco Use [...] M.A. - 07/10/2022 2:38 PM EDTFrom: Sandy [place] To: Adry Thomas Sent: 07/10/2022 1:13 PM EDT Subject: Regarding my referral to picker and sorter load and unload My medical records have still not been sent to Prashant Slater and I cannot make a appointment with him until my medical records are sent to him. Could you please take care of that? Thank you documented in this encounter Plan of Treatment Not on file documented as of this encounter Visit Diagnoses Not on filedocumented in this encounter Care Teams Maxillofacial Surgeon Relationship Specialty Start Date End Date Tom White [address] [place] [address] PCP - General Internal Medicine 05/14/22 10/06/22 Marisela Goodrich MD [address] [place] [address] PCP - General Internal Medicine 10/07/22 documented as of this encounter
--- OUTSIDE RECORDS SUMMARY | 2025-01-25 16:33 | XMS_ITS | Encounter Summary ---
Author Organization [facility] Address [address] [place] [address] Care Team Providers Care Sales Officer Name Role Phone Tom White Primary Care Provider [phone] Marisela Goodrich MD Primary Care Provider + Encounter Details Date Type Department Care Team Description 05/27/2022 [facility] Medical Records [address] [place] [address] Abstract, Provider Social History Tobacco Use Types [...] on filedocumented in this encounter Care Teams Sales Officer Relationship Specialty Start Date End Date Tom White [address] [place] [address] PCP - General Internal Medicine 05/14/22 10/06/22 Marisela Goodrich MD [address] [place], [place] [id number] PCP - General Internal Medicine 10/07/22 documented as of this encounter
--- OUTSIDE RECORDS SUMMARY | 2025-01-25 16:33 | XMS_ITS | Encounter Summary ---
Author Organization [facility] Address [address] [place] [address] Care Team Providers Care Painter And Decorator Apprentice Name Role Phone Alexandria Peñaloza MD Primary Care Provider Unava Kristy Rush MD Primary Care Provider Un available Alexandria Peñaloza MD Primary Care Provider Soniava Tom Booker Primary Care Provider [phone] Marisela Goodrich MD Primary Care Provider + Encounter Details Date Type Department Care Team Description 10/02/2011 Pipe Maker Report Medical Records [address] [place] [address] Mushtaq Cerda MD Social History Tobacco Use [...] on filedocumented in this encounter Care Teams Painter And Decorator Apprentice Relationship Specialty Start Date End Date Alexandria Peñaloza MD PCP - General 03/26/10 07/24/20 Kristy Castrejon MD PCP - General Internal Medicine 07/25/20 1 Alexandria Peñaloza MD PCP - General Internal Medicine 11/21/20 05/13/22 Tom White [address] [place] [address] PCP - General Internal Medicine 05/14/22 10/06/22 Marisela Goodrich MD [address] [place] [address] PCP - General Internal Medicine 10/07/22 documented as of this encounter
--- OUTSIDE RECORDS SUMMARY | 2025-01-25 16:33 | XMS_ITS | Encounter Summary ---
Author Organization [facility] Address [address] [place] [address] Care Team Providers Care Car Rental Deliverer Name Role Phone Alexandria Peñaloza MD Primary Care Provider Unava Kristy Rush MD Primary Care Provider Un available Alexandria Peñaloza MD Primary Care Provider Unava Tom Booker Primary Care Provider [phone] Marisela Goodrich MD Primary Care Provider + Reason for Visit * Reason Onset Date Comments REFERRAL 07/31/2017 Encounter Details Date Type Department Care Team Description 07/31/2017 Telephone Physiatry - [address] [address] Brad Coombs DO REFERRAL Social History Tobacco [...] with the patient and her MRI at [facility] is still not scheduled. Patient also states she might go to [facility] for this referral. Patient will get back to us if she wants to schedule an appointment documented in this encounter Plan of Treatment Not on file documented as of this encounter Visit Diagnoses Not on filedocumented in this encounter Care Teams Car Rental Deliverer Relationship Specialty Start Date End Date Alexandria Peñaloza MD PCP - General 03/26/10 07/24/20 Kristy Castrejon MD PCP - General Internal Medicine 07/25/20 1 Alexandria Peñaloza MD PCP - General Internal Medicine 11/21/20 05/13/22 Tom White [address] [place] [address] PCP - General Internal Medicine 05/14/22 10/06/22 Marisela Goodrich MD [address] [place] [address] PCP - General Internal Medicine 10/07/22 documented as of this encounter
--- OUTSIDE RECORDS SUMMARY | 2025-01-25 16:33 | XMS_ITS | Encounter Summary ---
Author Organization [facility] Address [address] [place] [address] Care Team Providers Care Cyber Reverse Engineer Name Role Phone Alexandria Peñaloza MD Primary Care Provider Unava Kristy Rush MD Primary Care Provider Un available Alexandria Peñaloza MD Primary Care Provider Unava Tom Booker Primary Care Provider [phone] Marisela Goodrich MD Primary Care Provider + Encounter Details Date Type Department Care Team Description 04/09/2018 Hospital Medical Records [address] [place] [address] Ayesha Weaver MD Social History Tobacco Use [...] on filedocumented in this encounter Care Teams Cyber Reverse Engineer Relationship Specialty Start Date End Date Alexandria Peñaloza MD PCP - General 03/26/10 07/24/20 Kristy Castrejon MD PCP - General Internal Medicine 07/25/20 1 Alexandria Peñaloza MD PCP - General Internal Medicine 11/21/20 05/13/22 Tom White [address] [place] [address] PCP - General Internal Medicine 05/14/22 10/06/22 Marisela Goodrich MD [address] [place] [address] PCP - General Internal Medicine 10/07/22 documented as of this encounter
--- OUTSIDE RECORDS SUMMARY | 2025-01-25 16:33 | XMS_ITS | Encounter Summary ---
Author Organization [facility] Address [address] [place] [address] Care Team Providers Care Bulk Plant Agent Name Role Phone Tom White Primary Care Provider [phone] Marisela Goodrich MD Primary Care Provider + Encounter Details Date Type Department Care Team Description 09/05/2022 Refill Medicine/Pediatrics - [address] [address] Tatum Thomas PA-C Social History Tobacco Use [...] 150 Mg Tablet 60 30 Wi Krystian [id number] [facility] (1450) 0/5 1.20 LME [place] 08/19/2022 04/01/2022 1 Lorazepam 2 Mg Tablet 30 30 Jalyn Woj [id number] [facility] (1450) 4/4 2.00 LME [place] 08/05/2022 06/07/2022 1 Lacosamide 150 Mg Tablet 60 30 Wi Krystian [id number] [facility] (1450) 2/5 1.20 L[place] 08/01/2022 05/22/2022 1 Pregabalin 75 Mg Capsule 60 30 Al Fru [id number] [facility] (1450) 2/2 1.00 L[place] 07/16/2022 07/16/2022 1 Clonazepam 0.5 Mg Tablet 15 30 Sh Dev [id number] [facility] (1450) 0/0 0.50 [place] 07/12/2022 04/01/2022 1 Lorazepam 2 Mg Tablet 30 30 Jalyn Woj [id number] [facility] (1450) 3/4 2.00 L[place] 07/06/2022 06/07/2022 1 Lacosamide 150 Mg Tablet 60 30 Wi Krystian [id number] [facility] (1450) 1/5 1.20 L[place] 06/27/2022 05/22/2022 1 Pregabalin 75 Mg Capsule 60 30 Al Fru [id number] [facility] (1450) 1/2 1.00 L[place] 06/11/2022 04/01/2022 1 Lorazepam 2 Mg Tablet 30 30 Jalyn Woj [id number] [facility] (1450) 2/4 2.00 LME Medicaid [place] 06/07/2022 06/07/2022 1 Lacosamide 150 Mg Tablet 60 30 Wi Krystian [id number] [facility] (1450) 0/5 1.20 LME Medicaid [place] 05/22/2022 05/22/2022 1 Oxycodone-Acetaminophen 5-325 14 14 Al Fru [id number] [facility] (1450) 0/0 7.50 MME [place] 05/22/2022 05/22/2022 1 Pregabalin 75 Mg Capsule 60 30 Al Fru [id number] [facility] (1450) 0/2 1.00 [place] 05/10/2022 04/01/2022 1 Lorazepam 2 Mg Tablet 30 30 Jalyn Woj [id number] [facility] (1450) 1/ 2.00 [place] 05/05/2022 04/24/2022 1 Clonazepam 0.5 Mg Tablet 15 30 Sh Dev [id number] [facility] (1450) 0/0 0.50 [place] 05/03/2022 11/19/2021 1 Lacosamide 150 Mg Tablet 60 30 Jalyn Woj [id number] [facility] (1450) 03/21 1.20 LME [place] documented in this encounter Plan of Treatment Not on file documented as of this encounter Visit Diagnoses Not on filedocumented in this encounter Care Teams Bulk Plant Agent Relationship Specialty Start Date End Date Tom White [address] [place] [address] PCP - General Internal Medicine 05/14/22 10/06/22 Marisela Goodrich MD [address] [place] [address] PCP - General Internal Medicine 10/07/22 documented as of this encounter
--- OUTSIDE RECORDS SUMMARY | 2025-01-25 16:33 | XMS_ITS | Encounter Summary ---
Author Organization [facility] Address [address] [place] [address] Care Team Providers Care Carroter Name Role Phone Tom White Primary Care Provider [phone] Marisela Goodrich MD Primary Care Provider + Encounter Details Date Type Department Care Team Description 09/30/2022 [facility] Medical Records [address] [place] [address] Abstract, Provider Social History Tobacco Use Types [...] on filedocumented in this encounter Care Teams Carroter Relationship Specialty Start Date End Date Tom White [address] [place] [address] PCP - General Internal Medicine 05/14/22 10/06/22 Marisela Goodrich MD [address] [place] [address] PCP - General Internal Medicine 10/07/22 documented as of this encounter
--- OUTSIDE RECORDS SUMMARY | 2025-01-25 16:33 | XMS_ITS | Encounter Summary ---
Author Organization [facility] Address [address] [place] [address] Care Team Providers Care Library Services Assistant Name Role Phone Alexandria Peñaloza MD Primary Care Provider Unava Kristy Rush MD Primary Care Provider Un available Alexandria Peñaloza MD Primary Care Provider Unava Tom Booker Primary Care Provider [phone] Marisela Goodrich MD Primary Care Provider + Encounter Details Date Type Department Care Team Description 06/02/2017 [facility] Medical Records [address] [place] [address] Abstract, Provider Social History Tobacco Use Types [...] on filedocumented in this encounter Care Teams Library Services Assistant Relationship Specialty Start Date End Date Alexandria Peñaloza MD PCP - General 03/26/10 07/24/20 Kristy Castrejon MD PCP - General Internal Medicine 07/25/20 1 Alexandria Peñaloza MD PCP - General Internal Medicine 11/21/20 05/13/22 Tom White [address] [place] [address] PCP - General Internal Medicine 05/14/22 10/06/22 Marisela Goodrich MD [address] [place] [address] PCP - General Internal Medicine 10/07/22 documented as of this encounter
--- OUTSIDE RECORDS SUMMARY | 2025-01-25 16:33 | XMS_ITS | Encounter Summary ---
Author Organization [facility] Address [address] [place] [address] Care Team Providers Care Gas Usage Meter Clerk Name Role Phone Alexandria Peñaloza MD Primary Care Provider Unava Kristy Rush MD Primary Care Provider Un available Alexandria Peñaloza MD Primary Care Provider Unava Tom Booker Primary Care Provider [phone] Marisela Goodrich MD Primary Care Provider + Reason for Visit * Reason Onset Date Comments Medication 05/29/2017 Encounter Details Date Type Department Care Team Description 05/29/2017 Telephone Medicine/Pediatrics - [address] [address] Alexandria Peñaloza MD Medication Social History Tobacco [...] medication (B12) because she now lives in [place] (in process of moving back to [place], no date given). Is also requesting needle [...] she requested it. States she is behind [employer] and that she is an hour away. [...] Message left for patient to call back [phone] re: question provider of syringes she needs [...] on filedocumented in this encounter Care Teams Gas Usage Meter Clerk Relationship Specialty Start Date End Date Alexandria Peñaloza MD PCP - General 03/26/10 07/24/20 Kristy Castrejon MD PCP - General Internal Medicine 07/25/20 1 Alexandria Peñaloza MD PCP - General Internal Medicine 11/21/20 05/13/22 Tom White [address] [place] [address] PCP - General Internal Medicine 05/14/22 10/06/22 Marisela Goodrich MD [address] [place] [address] PCP - General Internal Medicine 10/07/22 documented as of this encounter
--- OUTSIDE RECORDS SUMMARY | 2025-01-25 16:33 | XMS_ITS | Encounter Summary ---
Author Organization [facility] Address [address] [place] [address] Care Team Providers Care Quitline Counselor Name Role Phone Alexandria Peñaloza MD Primary Care Provider Unava Kristy Rush MD Primary Care Provider Un available Alexandria Peñaloza MD Primary Care Provider Unava ilTom Toscano Primary Care Provider [phone] Marisela Goodrich MD Primary Care Provider + Encounter Details Date Type Department Care Team Description 02/09/2020 [facility] Medical Records [address] [place] [address] Abstract, Provider Social History Tobacco Use Types [...] on filedocumented in this encounter Care Teams Quitline Counselor Relationship Specialty Start Date End Date Alexandria Peñaloza MD PCP - General 03/26/10 07/24/20 Kristy Castrejon MD PCP - General Internal Medicine 07/25/20 1 Alexandria Peñaloza MD PCP - General Internal Medicine 11/21/20 05/13/22 Tom White [address] [place] [address] PCP - General Internal Medicine 05/14/22 10/06/22 Marisela Goodrich MD [address] [place] [address] PCP - General Internal Medicine 10/07/22 documented as of this encounter
--- OUTSIDE RECORDS SUMMARY | 2025-01-25 16:33 | XMS_ITS | Encounter Summary ---
Author Organization [facility] Address [address] [place] [address] Care Team Providers Care First Officer And Flight Instructor Name Role Phone Alexandria Peñaloza MD Primary Care Provider Unava Kristy Rush MD Primary Care Provider Un available Alexandria Peñaloza MD Primary Care Provider Unava ilTom Toscano Primary Care Provider [phone] Marisela Goodrich MD Primary Care Provider + Encounter Details Date Type Department Care Team Description 05/23/2011 Structured Cabling Technician Report Medical Records [address] [place] [address] Reji Hensley [address] [place] [address] Social History Tobacco Use Types Packs/Day Years [...] on filedocumented in this encounter Care Teams First Officer And Flight Instructor Relationship Specialty Start Date End Date Alexandria Peñaloza MD PCP - General 03/26/10 07/24/20 Kristy Castrejon MD PCP - General Internal Medicine 07/25/20 1 Alexandria Peñaloza MD PCP - General Internal Medicine 11/21/20 05/13/22 Tom White [address] [place] [address] PCP - General Internal Medicine 05/14/22 10/06/22 Marisela Goodrich MD [address] [place] [address] PCP - General Internal Medicine 10/07/22 documented as of this encounter
--- OUTSIDE RECORDS SUMMARY | 2025-01-25 16:33 | XMS_ITS | Encounter Summary ---
Author Organization [facility] Address [address] [place] [address] Care Team Providers Care Social Work Supervisor Name Role Phone Tom White Primary Care Provider [phone] Marisela Goodrich MD Primary Care Provider + Reason for Visit * Reason Comments E-prescribe Rx Request Encounter Details Date Type Department Care Team Description 05/19/2022 Refill Medicine/Pediatrics - [address] [address] Alexandria Peñaloza MD E-prescribe Rx Request Social [...] N/A Patients current insurance carrier is: Payor: [employer] FFS / Plan: [employer] / Product Type: MEDICAID RISK documented in this encounter Plan of Treatment Not on file documented as of this encounter Visit Diagnoses Diagnosis Acute nasopharyngitis Acute nasopharyngitis (common cold) Exercise-induced asthma Exercise induced bronchospasm documented in this encounter Care Teams Social Work Supervisor Relationship Specialty Start Date End Date Tom White [address] [place] [address] [id number] PCP - General Internal Medicine 05/14/22 10/06/22 Marisela Goodrich MD [address] [place], [place] [phone] PCP - General Internal Medicine 10/07/22 documented as of this encounter
--- OUTSIDE RECORDS SUMMARY | 2025-01-25 16:33 | XMS_ITS | Encounter Summary ---
Author Organization [facility] Address [address] [place] [address] Care Team Providers Care Grader Tender Name Role Phone Alexandria Peñaloza MD Primary Care Provider Unava Kristy Rush MD Primary Care Provider Un available Alexandria Peñaloza MD Primary Care Provider Unava Tom Booker Primary Care Provider [phone] Marisela Goodrich MD Primary Care Provider + Encounter Details Date Type Department Care Team Description 07/06/2019 Hospital Medical Records [address] [place] [address] Beatriz Farrell NP Social History Tobacco Use [...] on filedocumented in this encounter Care Teams Grader Tender Relationship Specialty Start Date End Date Alexandria Peñaloza MD PCP - General 03/26/10 07/24/20 Kristy Castrejon MD PCP - General Internal Medicine 07/25/20 1 Alexandria Peñaloza MD PCP - General Internal Medicine 11/21/20 05/13/22 Tom White [address] [place] [address] PCP - General Internal Medicine 05/14/22 10/06/22 Marisela Goodrich MD [address] [place] [address] PCP - General Internal Medicine 10/07/22 documented as of this encounter
--- OUTSIDE RECORDS SUMMARY | 2025-01-25 16:33 | XMS_ITS | Encounter Summary ---
Author Organization [facility] Address [address] [place] [address] Care Team Providers Care Orthotics Assistant Name Role Phone Alexandria Peñaloza MD Primary Care Provider Unava Kristy Rush MD Primary Care Provider Un available Alexandria Peñaloza MD Primary Care Provider Unava ilable Tom White Primary Care Provider [phone] Marisela Goodrich MD Primary Care Provider + Reason for Referral * EXTERNAL (Routine) - Authorized/Booked Specialty Diagnoses / Procedures Referred By Contact Referred To Contact Obstetrics/Gynecology / Obstetrics & Gynecology Procedures REFERRAL TO OBSTETRICS & GYNECOLOGY Alexandria Peñaloza MD [address] [place] [address] [facility] [address] [place] [address] Referral ID Status Reason Start Date Expiration Date V isits Requested Visits Authorized SEE NOTE Authorized/B ooked 04/18/2017 07/25/2017 1 1 Reason for Visit * Reason Onset Date Comments Stock Counter Feedback 04/18/2017 MYKEL ORANTES Encounter Details Date Type Department Care Team Description 04/18/2017 Telephone Medicine/Pediatrics - [address] [phone] Alexandria Peñaloza MD Stock Counter Feedback (MYKEL ORANTES) Social History Tobacco Use [...] 11:44 AM EDT Pts call came into [facility] pt services. Explained to pt about her [place] health coverage and that she is now assigned to the [facility] via the PCC plan. Pt understands and [...] / Plan: MEDICAID PCC / Product Type:MEDICAID [id number] Effective 08/17/09: BCBS will not retro referral [...] insurance must be obtained and registered in [facility] or their referral can not be processed. Is this a retro request? NO. If yes for what date of service do you need the retro referral? N/A Who is calling to request this referral? MYKEL CORRIGAN FOREST PATHOLOGY PROFESSOR If the caller is not the patient, [...] YES Is this visit:Initial Visit Address of Specialist:[address] [place] [address] Phone # of Specialist:[phone] Fax #: (if applicable):[phone] Does patient have an appointment scheduled?: YES Date of appointment- (including a retro-request): 04/21/17 Is this appointment related to: Not MVA, WC or Surgery related documented in this encounter Plan of Treatment Not on file documented as of this encounter Visit Diagnoses Not on filedocumented in this encounter Care Teams Orthotics Assistant Relationship Specialty Start Date End Date Alexandria Peñaloza MD PCP - General 03/26/10 07/24/20 Kristy Castrejon MD PCP - General Internal Medicine 07/25/20 1 Alexandria Peñaloza MD PCP - General Internal Medicine 11/21/20 05/13/22 Tom White [address] [place] [address] PCP - General Internal Medicine 05/14/22 10/06/22 Marisela Goodrich MD [address] [place] [address] PCP - General Internal Medicine 10/07/22 documented as of this encounter
--- OUTSIDE RECORDS SUMMARY | 2025-01-25 16:33 | XMS_ITS | Encounter Summary ---
Author Organization [facility] Address [address] [place] [address] Care Team Providers Care Fruit Pitter Name Role Phone Alexandria Peñaloza MD Primary Care Provider Unava Kristy Rush MD Primary Care Provider Un available Alexandria Peñaloza MD Primary Care Provider Unava Tom Booker Primary Care Provider [phone] Marisela Goodrich MD Primary Care Provider + Reason for Visit * Reason Onset Date Comments medication problems 09/14/2019 Encounter Details Date Type Department Care Team Description 09/14/2019 Telephone Medicine/Pediatrics - [address] [phone] Alexandria Peñaloza MD medication problems Social History [...] on filedocumented in this encounter Care Teams Fruit Pitter Relationship Specialty Start Date End Date Alexandria Peñaloza MD PCP - General 03/26/10 07/24/20 Kristy Castrejon MD PCP - General Internal Medicine 07/25/20 1 Alexandria Peñaloza MD PCP - General Internal Medicine 11/21/20 05/13/22 Tom White [address] [place] [address] PCP - General Internal Medicine 05/14/22 10/06/22 Marisela Goodrich MD [address] [place], [place] [phone] PCP - General Internal Medicine 10/07/22 documented as of this encounter
--- OUTSIDE RECORDS SUMMARY | 2025-01-25 16:33 | XMS_ITS | Encounter Summary ---
Author Organization [facility] Address [address] [place] [address] Care Team Providers Care Logistics Operations Director Name Role Phone Alexandria Peñaloza MD Primary Care Provider Unava Kristy Rush MD Primary Care Provider Un available Alexandria Peñaloza MD Primary Care Provider Unava ilable Tom White Primary Care Provider [phone] Marisela Goodrich MD Primary Care Provider + Reason for Visit * Reason Comments E-prescribe Rx Request Encounter Details Date Type Department Care Team Description 04/24/2018 Refill Medicine/Pediatrics - [address] [phone] Geoffrey Camarillo PA-C E-prescribe Rx Request Social [...] THE PATIENT'S LAST APPOINTMENT IN ADULT MEDICINE? [id number] WHEN WAS THE LAST TIME THE PATIENT SAW THEIR PCP? [phone] Does patient have an upcoming appointment? Yes [id number] (THE MEDICATION REQUESTED IS ON THE MED LIST ABOVE) All of the medications requested were on the CURRENT MEDS list Did you check the Pharmacy information above?: YES Patient wants: 30 -day supply Is this a mail order prescription request ? NO Patients current insurance carrier is: [facility]or[facility] [employer] [facility] / Plan: [facility] / Product Type: MEDICAID RISK documented in this encounter Plan of Treatment Not on file documented as of this encounter Visit Diagnoses Not on filedocumented in this encounter Care Teams Logistics Operations Director Relationship Specialty Start Date End Date Alexandria Peñaloza MD PCP - General 03/26/10 07/24/20 Kristy Castrejon MD PCP - General Internal Medicine 07/25/20 1 Alexandria Peñaloza MD PCP - General Internal Medicine 11/21/20 05/13/22 Tom White [address] [place] [address] PCP - General Internal Medicine 05/14/22 10/06/22 Marisela Goodrich MD [address] [place] [address] PCP - General Internal Medicine 10/07/22 documented as of this encounter
--- OUTSIDE RECORDS SUMMARY | 2025-01-25 16:33 | XMS_ITS | Encounter Summary ---
Author Organization [facility] Address [address] [place] [address] Care Team Providers Care Band Sawing Machine Operator Name Role Phone Alexandria Peñaloza MD Primary Care Provider Unava Kristy Rush MD Primary Care Provider Un available Alexandria Peñaloza MD Primary Care Provider Unava ilable Tom White Primary Care Provider [phone] Marisela Goodrich MD Primary Care Provider + Reason for Visit * Reason Onset Date Comments Error 04/25/2017 Encounter Details Date Type Department Care Team Description 04/25/2017 Telephone Medicine/Pediatrics - [address] [phone] Alexandria Peñaloza MD Error Social History Tobacco Use Types Packs/Day Years [...] encounter Miscellaneous Notes * Telephone Encounter - Savannah García - 04/25/2017 9:10 AM EDT hgjg documented in this encounter Plan of Treatment Not on file documented as of this encounter Visit Diagnoses Not on filedocumented in this encounter Care Teams Band Sawing Machine Operator Relationship Specialty Start Date End Date Alexandria Peñaloza MD PCP - General 03/26/10 07/24/20 Kristy Castrejon MD PCP - General Internal Medicine 07/25/20 Alexandria Peñaloza MD PCP - General Internal Medicine 11/21/20 05/13/22 Tom White [address] [place] [address] PCP - General Internal Medicine 05/14/22 10/06/22 Marisela Goodrich MD [address] [place] [address] PCP - General Internal Medicine 10/07/22 documented as of this encounter
--- OUTSIDE RECORDS SUMMARY | 2025-01-25 16:33 | XMS_ITS | Encounter Summary ---
Author Organization [facility] Address [address] [place] [address] Care Team Providers Care Card Scraper Name Role Phone Alexandria Peñaloza MD Primary Care Provider Kristy Milan MD Primary Care Provider Un available Alexandria Peñaloza MD Primary Care Provider Soniava Tom Booker Primary Care Provider [phone] Marisela Goodrich MD Primary Care Provider + Encounter Details Date Type Department Care Team Description 04/18/2017 [facility] Medical Records [address] [place] [address] Social History Tobacco Use Types Packs/Day Years [...] on filedocumented in this encounter Care Teams Card Scraper Relationship Specialty Start Date End Date Alexandria Peñaloza MD PCP - General 03/26/10 07/24/20 Kristy Castrejon MD PCP - General Internal Medicine 07/25/20 1 Alexandria Peñaloza MD PCP - General Internal Medicine 11/21/20 05/13/22 Tom White [address] [place] [address] PCP - General Internal Medicine 05/14/22 10/06/22 Marisela Goodrich MD [address] [place] [address] PCP - General Internal Medicine 10/07/22 documented as of this encounter
--- OUTSIDE RECORDS SUMMARY | 2025-01-25 16:34 | XMS_ITS | Encounter Summary ---
Author Organization [facility] Address [address] [place] [address] Care Team Providers Care Product Introduction Manager Name Role Phone Alexandria Peñaloza MD Primary Care Provider Unava Kristy Rush MD Primary Care Provider Un available Alexandria Peñaloza MD Primary Care Provider Soniava Tom Booker Primary Care Provider [phone] Marisela Goodrich MD Primary Care Provider + Encounter Details Date Type Department Care Team Description 10/21/2017 Senior Application Programmer Report Medical Records [address] [place] [address] Sam Tinsley MD Social History Tobacco Use [...] on filedocumented in this encounter Care Teams Product Introduction Manager Relationship Specialty Start Date End Date Alexandria Peñaloza MD PCP - General 03/26/10 07/24/20 Kristy Castrejon MD PCP - General Internal Medicine 07/25/20 1 Alexandria Peñaloza MD PCP - General Internal Medicine 11/21/20 05/13/22 Tom White [address] [place] [address] PCP - General Internal Medicine 05/14/22 10/06/22 Marisela Goodrich MD [address] [place] [address] PCP - General Internal Medicine 10/07/22 documented as of this encounter
--- OUTSIDE RECORDS SUMMARY | 2025-01-25 16:34 | XMS_ITS | Encounter Summary ---
Author Organization [facility] Address [address] [place] [address] Care Team Providers Care Machine Rigger Name Role Phone Alexandria Peñaloza MD Primary Care Provider Unava Kristy Rush MD Primary Care Provider Un available Alexandria Peñaloza MD Primary Care Provider Unava ilable Tom White Primary Care Provider [phone] Marisela Goodrich MD Primary Care Provider + Encounter Details Date Type Department Care Team Description 04/05/2013 Pt. Non Urgent Medic al Question Physiatry - [address] [address] Tsering Gruber PA-C Social History Tobacco Use [...] filedocumented in this encounter Care Teams Machine Rigger Relationship Specialty Start Date End Date Alexandria Peñaloza MD PCP - General 03/26/10 07/24/20 Kristy Castrejon MD PCP - General Internal Medicine 07/25/20 Alexandria Peñaloza MD PCP - General Internal Medicine 11/21/20 05/13/22 Tom White [address] [place] [address] PCP - General Internal Medicine 05/14/22 10/06/22 Marisela Goodrich MD [address] [place] [address] PCP - General Internal Medicine 10/07/22 documented as of this encounter
--- OUTSIDE RECORDS SUMMARY | 2025-01-25 16:34 | XMS_ITS | Encounter Summary ---
Author Organization [facility] Address [address] [place] [address] Care Team Providers Care Bread Molder Name Role Phone Alexandria Peñaloza MD Primary Care Provider Tom Jane Primary Care Provider Marisela Goodrich MD Primary Care Provider + Encounter Details Date Type Department Care Team Description 05/30/2021 Pt. Non Urgent Medic al Question Medicine/Pediatrics - [address] [phone] Alexandria Peñaloza MD Social History Tobacco Use [...] on filedocumented in this encounter Care Teams Bread Molder Relationship Specialty Start Date End Date Alexandria Peñaloza MD PCP - General Internal Medicine 11/21/20 05/13/22 Tom White [address] [place] [address] PCP - General Internal Medicine 05/14/22 10/06/22 Marisela Goodrich MD [address] [place] [address] PCP - General Internal Medicine 10/07/22 documented as of this encounter
--- OUTSIDE RECORDS SUMMARY | 2025-01-25 16:34 | XMS_ITS | Encounter Summary ---
Author Organization [facility] Address [address] [place] [address] Care Team Providers Care Cyber Security Specialist Name Role Phone Alexandria Peñaloza MD Primary Care Provider UnaKristy Negro MD Primary Care Provider Un available Alexandria Peñaloza MD Primary Care Provider Tom Jane Primary Care Provider Marisela Goodrich MD Primary Care Provider + Encounter Details Date Type Department Care Team Description 04/17/2015 Hospital Medical Records [address] [place] [address] Tom White [address] [place] [address] Social History Tobacco Use Types Packs/Day Years [...] filedocumented in this encounter Care Teams Cyber Security Specialist Relationship Specialty Start Date End Date Alexandria Peñaloza MD PCP - General 03/26/10 07/24/20 Kristy Castrejon MD PCP - General Internal Medicine 07/25/20 1 Alexandria Peñaloza MD PCP - General Internal Medicine 11/21/20 05/13/22 Tom White [address] [place] [address] PCP - General Internal Medicine 05/14/22 10/06/22 Marisela Goodrich MD [address] [place] [address] PCP - General Internal Medicine 10/07/22 documented as of this encounter
--- OUTSIDE RECORDS SUMMARY | 2025-01-25 16:34 | XMS_ITS | Encounter Summary ---
Author Organization [facility] Address [address] [place] [address] Care Team Providers Care Mobile Electronics Installer Name Role Phone Alexandria Peñaloza MD Primary Care Provider Unava Kristy Rush MD Primary Care Provider Un available Alexandria Peñaloza MD Primary Care Provider Unava ilable Tom White Primary Care Provider [phone] Marisela Goodrich MD Primary Care Provider + Encounter Details Date Type Department Care Team Description 05/09/2015 Mortar Mixer Report Medical Records [address] [place] [address] Peter Matias MD Social History Tobacco Use [...] filedocumented in this encounter Care Teams Mobile Electronics Installer Relationship Specialty Start Date End Date Alexandria Peñaloza MD PCP - General 03/26/10 07/24/20 Kristy Castrejon MD PCP - General Internal Medicine 07/25/20 1 Alexandria Peñaloza MD PCP - General Internal Medicine 11/21/20 05/13/22 Tom White [address] [place] [address] PCP - General Internal Medicine 05/14/22 10/06/22 Marisela Goodrich MD [address] [place] [address] PCP - General Internal Medicine 10/07/22 documented as of this encounter
--- OUTSIDE RECORDS SUMMARY | 2025-01-25 16:34 | XMS_ITS | Encounter Summary ---
Author Organization [facility] Address [address] [place] [address] Care Team Providers Care Special Makeup Fx Artist Instructor Name Role Phone Alexandria Peñaloza MD Primary Care Provider Unava Kristy Rush MD Primary Care Provider Un available Alexandria Peñaloza MD Primary Care Provider Unava Tom Booker Primary Care Provider [phone] Marisela Goodrich MD Primary Care Provider + Encounter Details Date Type Department Care Team Description 03/18/2013 Orders Only Medicine/Pediatrics - [address] [phone] Marli Vanessa PA-C Other malaise and fatigue [...] as of this encounter Results * (ABNORMAL) 25 HYDROXY INCLUDES FRACTIONS IF PERFORMED (03/18/2013 1:39 PM EDT) 25-HYDROXY VITAMIN D TOTAL 14(L) 30 - 80 ng/ml 03/19/2013 2:35 PM EDT [facility] Comment: Vitamin D Reference Ranges ??Deficiency: ? <20 ng/mL ??Insufficiency: ?20-29 ng/mL ??Optimal: ?30-80 ng/mL ??High: ? >80 ng/mL 03/18/2013 1:39 PM EDT 03/18/2013 1:39 PM EDT Marli Vanessa PA-C LAB Performing Organization Address [facility] de Phone Number [address] * LYME POLYVALENT AB SCREEN (03/18/2013 1:39 PM EDT) Pathologist [facility] LYME DISEASE ANTIBODIES NEGATIVE NEGATIVE 03/19/2013 2:44 PM EDT [facility] 03/18/2013 1:39 PM EDT 03/18/2013 1:39 PM EDT Marli Vanessa PA-C LAB Performing Organization Address [facility] de Phone Number [address] documented in this encounter Visit Diagnoses Diagnosis Other malaise and fatigue- Primary documented in this encounter Care Teams Special Makeup Fx Artist Instructor Relationship Specialty Start Date End Date Alexandria Peñaloza MD PCP - General 03/26/10 07/24/20 Kristy Castrejon MD PCP - General Internal Medicine 07/25/20 1 Alexandria Peañloza MD PCP - General Internal Medicine 11/21/20 05/13/22 Tom White [address] [place] [address] PCP - General Internal Medicine 05/14/22 10/06/22 Marisela Goodrich MD [address] [place] [address] PCP - General Internal Medicine 10/07/22 documented as of this encounter
--- OUTSIDE RECORDS SUMMARY | 2025-01-25 16:34 | XMS_ITS | Encounter Summary ---
Author Organization [facility] Address [address] [place] [address] Care Team Providers Care Cpr Instructor Name Role Phone Alexandria Peñaloza MD Primary Care Provider Unava Kristy Rush MD Primary Care Provider Un available Alexandria Peñaloza MD Primary Care Provider Unava Tom Booker Primary Care Provider [phone] Marisela Goodrich MD Primary Care Provider + Encounter Details Date Type Department Care Team Description 12/16/2016 Hospital Medical Records [address] [place] [address] Savannah Enamorado DO Social History Tobacco Use [...] Internal Medicine 11/21/20 05/13/22 Tom White [address] [place] [address] PCP - General Internal Medicine 05/14/22 10/06/22 Marisela Goodrich MD [address] [place] [address] PCP - General Internal Medicine 10/07/22 documented as of this encounter
--- OUTSIDE RECORDS SUMMARY | 2025-01-25 16:34 | XMS_ITS | Encounter Summary ---
Author Organization [facility] Address [address] [place] [address] Care Team Providers Care Bookkeeping Manager Name Role Phone Alexandria Peñaloza MD Primary Care Provider UnaKristy Negro MD Primary Care Provider Un available Alexandria Peñaloza MD Primary Care Provider Soniava Tom Booker Primary Care Provider [phone] Marisela Goodrich MD Primary Care Provider + Encounter Details Date Type Department Care Team Description 06/23/2019 [facility] Medical Records [address] [place] [address] Social History Tobacco Use Types Packs/Day Years [...] on filedocumented in this encounter Care Teams Bookkeeping Manager Relationship Specialty Start Date End Date Alexandria Peñaloza MD PCP - General 03/26/10 07/24/20 Kristy Castrejon MD PCP - General Internal Medicine 07/25/20 1 Alexandria Peñaloza MD PCP - General Internal Medicine 11/21/20 05/13/22 Tom White [address] [place] [address] PCP - General Internal Medicine 05/14/22 10/06/22 Marisela Goodrich MD [address] [place] [address] PCP - General Internal Medicine 10/07/22 documented as of this encounter
--- OUTSIDE RECORDS SUMMARY | 2025-01-25 16:34 | XMS_ITS | Encounter Summary ---
Author Organization [facility] Address [address] [place] [address] Care Team Providers Care Tongue Binder Name Role Phone Alexandria Peñaloza MD Primary Care Provider Unava Kristy Rush MD Primary Care Provider Un available Alexandria Peñaloza MD Primary Care Provider Unava ilTom Toscano Primary Care Provider Marisela Goodrich MD Primary Care Provider + Encounter Details Date Type Department Care Team Description 07/06/2012 Aerologist Report Medical Records [address] [place] [address] Reji Hensley [address] [place] [address] Social History Tobacco Use Types Packs/Day Years [...] on filedocumented in this encounter Care Teams Tongue Binder Relationship Specialty Start Date End Date Alexandria Peñaloza MD PCP - General 03/26/10 07/24/20 Kristy Castrejon MD PCP - General Internal Medicine 07/25/20 1 Alexandria Peñaloza MD PCP - General Internal Medicine 11/21/20 05/13/22 Tom White [address] [place] [address] PCP - General Internal Medicine 05/14/22 10/06/22 Marisela Goodrich MD [address] [place] [address] PCP - General Internal Medicine 10/07/22 documented as of this encounter
--- OUTSIDE RECORDS SUMMARY | 2025-01-25 16:34 | XMS_ITS | Encounter Summary ---
Author Organization [facility] Address [address] [place] [address] Care Team Providers Care Reed Worker Name Role Phone Marisela Goodrich MD Primary Care Provider + Encounter Details Date Type Department Care Team Description 01/22/2023 Operating System Designer Report Medical Records [address] [place] [address] Ronnie Boyle MD Social History Tobacco Use [...] on filedocumented in this encounter Care Teams Reed Worker Relationship Specialty Start Date End Date Marisela Goodrich MD [address] [place] [address] PCP - General Internal Medicine 10/07/22 documented as of this encounter
--- OUTSIDE RECORDS SUMMARY | 2025-01-25 16:34 | XMS_ITS | Encounter Summary ---
Author Organization [facility] Address [address] [place] [address] Care Team Providers Care Technical Artist Name Role Phone Alexandria Peñaloza MD Primary Care Provider Unava Kristy Rush MD Primary Care Provider Un available Alexandria Peñaloza MD Primary Care Provider Unava Tom Booker Primary Care Provider [phone] Marisela Goodrich MD Primary Care Provider + Encounter Details Date Type Department Care Team Description 02/17/2015 TRANSFER MAN/[facility] Report Medical Records [address] [place] [address] Abstract, Provider Social History Tobacco Use Types [...] filedocumented in this encounter Care Teams Technical Artist Relationship Specialty Start Date End Date Alexandria Peñaloza MD PCP - General 03/26/10 07/24/20 Kristy Castrejon MD PCP - General Internal Medicine 07/25/20 1 Alexandria Peñaloza MD PCP - General Internal Medicine 11/21/20 05/13/22 Tom White [address] [place] [address] PCP - General Internal Medicine 05/14/22 10/06/22 Marisela Goodrich MD [address] [place] [address] PCP - General Internal Medicine 10/07/22 documented as of this encounter
--- OUTSIDE RECORDS SUMMARY | 2025-01-25 16:34 | XMS_ITS | Encounter Summary ---
Author Organization [facility] Address [address] [place] [address] Care Team Providers Care Salesperson Stereo Equipment Name Role Phone Alexandria Peñaloza MD Primary Care Provider Unava Kristy Rush MD Primary Care Provider Un available Alexandria Peñaloza MD Primary Care Provider Unava ilTom Toscano Primary Care Provider [phone] Marisela Goodrich MD Primary Care Provider + Encounter Details Date Type Department Care Team Description 11/05/2016 Cell Feed Department Supervisor Report Medical Records [address] [place] [address] Yoel Rogers Np Social History Tobacco Use [...] on filedocumented in this encounter Care Teams Salesperson Stereo Equipment Relationship Specialty Start Date End Date Alexandria Peñaloza MD PCP - General 03/26/10 07/24/20 Kristy Castrejon MD PCP - General Internal Medicine 07/25/20 1 Alexandria Peñaloza MD PCP - General Internal Medicine 11/21/20 05/13/22 Tom White [address] [place] [address] PCP - General Internal Medicine 05/14/22 10/06/22 Marisela Goodrich MD [address] [place] [address] PCP - General Internal Medicine 10/07/22 documented as of this encounter
--- OUTSIDE RECORDS SUMMARY | 2025-01-25 16:34 | XMS_ITS | Encounter Summary ---
Author Organization [facility] Address [address] [place] [address] Care Team Providers Care Med Spa Manager Name Role Phone Alexandria Peñaloza MD Primary Care Provider Unava Kristy Rush MD Primary Care Provider Un available Alexandria Peñaloza MD Primary Care Provider Unava Tom Booker Primary Care Provider [phone] Marisela Goodrich MD Primary Care Provider + Encounter Details Date Type Department Care Team Description 05/10/2019 Pt. Non Urgent Medic al Question Medicine/Pediatrics - [address] [phone] Alexandria Peñaloza MD Social History Tobacco Use [...] of this encounter Progress Notes * Gale GomezPMendozaNMendoza - 05/10/2019 11:56 AM EDTFrom: Sandy Santana To: Alexandria Peñaloza MD Sent: 05/10/2019 11:15 AM EDT Subject: Referral to [facility] neurology Dr. 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 I currently see someone through [facility] but I would like to go out to [place] because I hear they are verygood. A referral got put in but it was to [facility] neurology for Doctor Rodolfo and I have seen him in the past and he is terrible. I do not want to go there again. If possible could you please put in a referral to me for [place] I don't care who I see out [...] on filedocumented in this encounter Care Teams Med Spa Manager Relationship Specialty Start Date End Date Alexandria Peñaloza MD PCP - General 03/26/10 07/24/20 Kristy Castrejon MD PCP - General Internal Medicine 07/25/20 1 Alexandria Peñaloza MD PCP - General Internal Medicine 11/21/20 05/13/22 Tom White [address] [place] [address] PCP - General Internal Medicine 05/14/22 10/06/22 Marisela Goodrich MD [address] [place] [address] PCP - General Internal Medicine 10/07/22 documented as of this encounter
--- OUTSIDE RECORDS SUMMARY | 2025-01-25 16:34 | XMS_ITS | Encounter Summary ---
Author Organization [facility] Address [address] [place] [address] Care Team Providers Care Orthotist Name Role Phone Alexandria Peñaloza MD Primary Care Provider Unava Kristy Rush MD Primary Care Provider Un available Alexandria Peñaloza MD Primary Care Provider Unava Tom Booker Primary Care Provider [phone] Marisela Goodrich MD Primary Care Provider + Encounter Details Date Type Department Care Team Description 04/28/2013 Bander Hand Report Medical Records [address] [place] [address] Sam Tinsley MD Social History Tobacco Use [...] on filedocumented in this encounter Care Teams Orthotist Relationship Specialty Start Date End Date Alexandria Peñaloaz MD PCP - General 03/26/10 07/24/20 Kristy Castrejon MD PCP - General Internal Medicine 07/25/20 1 Alexandria Peñaloza MD PCP - General Internal Medicine 11/21/20 05/13/22 Tom White [address] [place] [address] PCP - General Internal Medicine 05/14/22 10/06/22 Marisela Goodrich MD [address] [place] [address] PCP - General Internal Medicine 10/07/22 documented as of this encounter
--- OUTSIDE RECORDS SUMMARY | 2025-01-25 16:34 | XMS_ITS | Encounter Summary ---
Author Organization [facility] Address [address] [place] [address] Care Team Providers Care Brick Setter Operator Name Role Phone Marisela Goodrich MD Primary Care Provider + Encounter Details Date Type Department Care Team Description 01/07/2023 Hospital Medical Records [address] [place] [address] Ronnie Boyle MD Social History Tobacco Use [...] on filedocumented in this encounter Care Teams Brick Setter Operator Relationship Specialty Start Date End Date Marisela Goodrich MD [address] [place] [address] PCP - General Internal Medicine 10/07/22 documented as of this encounter
--- OUTSIDE RECORDS SUMMARY | 2025-01-25 16:34 | XMS_ITS | Encounter Summary ---
Author Organization [facility] Address [address] [place] [address] Care Team Providers Care Pesticide Use Medical Coordinator Name Role Phone Alexandria Peñaloza MD Primary Care Provider Tom Jane Primary Care Provider [phone] Marisela Goodrich MD Primary Care Provider + Encounter Details Date Type Department Care Team Description 06/11/2021 [facility] Medical Records [address] [place] [address] Social History Tobacco Use Types Packs/Day Years [...] General Internal Medicine 11/21/20 05/13/22 Tom White [address] [place] [address] PCP - General Internal Medicine 05/14/22 10/06/22 Marisela Goodrich MD [address] [place] [address] PCP - General Internal Medicine 10/07/22 documented as of this encounter
--- OUTSIDE RECORDS SUMMARY | 2025-01-25 16:34 | XMS_ITS | Encounter Summary ---
Author Organization [facility] Address [address] [place] [address] Care Team Providers Care Tar And Ammonia Pump Operator Name Role Phone Alexandria Peñaloza MD Primary Care Provider Unava Kristy Rush MD Primary Care Provider Un available Alexandria Peñaloza MD Primary Care Provider Unava Tom Booker Primary Care Provider [phone] Marisela Goodrich MD Primary Care Provider + Encounter Details Date Type Department Care Team Description 03/18/2013 Orders Only Medicine/Pediatrics - [address] [phone] Marli Vanessa PA-C Other malaise and fatigue [...] Primary documented in this encounter Care Teams Tar And Ammonia Pump Operator Relationship Specialty Start Date End Date Alexandria Peñaloza MD PCP - General 03/26/10 07/24/20 Kristy Castrejon MD PCP - General Internal Medicine 07/25/20 1 Alexandria Peñaloza MD PCP - General Internal Medicine 11/21/20 05/13/22 Tom White [address] [place] [address] PCP - General Internal Medicine 05/14/22 10/06/22 Marisela Goodrich MD [address] [place] [address] PCP - General Internal Medicine 10/07/22 documented as of this encounter
--- OUTSIDE RECORDS SUMMARY | 2025-01-25 16:34 | XMS_ITS | Encounter Summary ---
Author Organization [facility] Address [address] [place] [address] Care Team Providers Care Records Officer Name Role Phone Marisela Goodrich MD Primary Care Provider + Encounter Details Date Type Department Care Team Description 12/27/2022 Refill Medicine/Pediatrics - [address] [phone] Alexandria Peñaloza MD Social History Tobacco Use [...] EST Labs pending to date, sent f/u [employer] message requesting a response. * Telephone Encounter - Robbie Hogan M.A. - 12/28/2022 8:46 PM EST [email or web address] message to pt- needs to have labs [...] on filedocumented in this encounter Care Teams Records Officer Relationship Specialty Start Date End Date Marisela Goodrich MD [address] [place] [address] PCP - General Internal Medicine 10/07/22 documented as of this encounter
--- OUTSIDE RECORDS SUMMARY | 2025-01-25 16:34 | XMS_ITS | Encounter Summary ---
Author Organization [facility] Address [address] [place] [address] Care Team Providers Care Rocket Engine Mechanic Name Role Phone Alexandria Peñaloza MD Primary Care Provider Unava Kristy Rush MD Primary Care Provider Un available Alexandria Peñaloza MD Primary Care Provider Unava Tom Booker Primary Care Provider [phone] Marisela Goodrich MD Primary Care Provider + Encounter Details Date Type Department Care Team Description [facility]/10[facility] [address] [place] [address] Md Adis Social History Tobacco Use Types [...] on filedocumented in this encounter Care Teams Rocket Engine Mechanic Relationship Specialty Start Date End Date Alexandria Peñaloza MD PCP - General 03/26/10 07/24/20 Kristy Castrejon MD PCP - General Internal Medicine 07/25/20 1 Alexandria Peñaloza MD PCP - General Internal Medicine 11/21/20 05/13/22 Tom White [address] [place] [address] PCP - General Internal Medicine 05/14/22 10/06/22 Marisela Goodrich MD [address] [place] [address] PCP - General Internal Medicine 10/07/22 documented as of this encounter
--- OUTSIDE RECORDS SUMMARY | 2025-01-25 16:34 | XMS_ITS | Clinical Summary ---
Author Organization [facility] Address [address] [address] Care Team Providers Care Skydiving Instructor Name Role Phone Tom White MD Primary [...] Vaccine (#1) 2024 09/22/2018, 2016 Insurance [place]ID [place] Care Teams Skydiving Instructor Relationship Specialty Start Date End Date Tom White MD [address] [place] [address] PCP - [facility] 02/14/23
--- OUTSIDE RECORDS SUMMARY | 2025-01-25 16:34 | XMS_ITS | Encounter Summary ---
Author Organization [facility] Address [address] [place] [address] Care Team Providers Care Manager General Name Role Phone Alexandria Peñaloza MD Primary Care Provider Unava Kristy Rush MD Primary Care Provider Un available Alexandria Peñaloza MD Primary Care Provider Unava Tom Booker Primary Care Provider [phone] Marisela Goodrich MD Primary Care Provider + Encounter Details Date Type Department Care Team Description 06/26/2019 [facility] Medical Records [address] [place] [address] João Bahena MD Social History Tobacco Use [...] filedocumented in this encounter Care Teams Manager General Relationship Specialty Start Date End Date Alexandria Peñaloza MD PCP - General 03/26/10 07/24/20 Kristy Castrejon MD PCP - General Internal Medicine 07/25/20 1 Alexandria Peñaloza MD PCP - General Internal Medicine 11/21/20 05/13/22 Tom White [address] [place] [address] PCP - General Internal Medicine 05/14/22 10/06/22 Marisela Goodrich MD [address] [place] [address] PCP - General Internal Medicine 10/07/22 documented as of this encounter
--- OUTSIDE RECORDS SUMMARY | 2025-01-25 16:34 | XMS_ITS | Encounter Summary ---
Author Organization [facility] Address [address] [place] [address] Care Team Providers Care Piano Sounding Board Matcher Name Role Phone Alexandria Peñaloza MD Primary Care Provider Unava Kristy Rush MD Primary Care Provider Un available Alexandria Peñaloza MD Primary Care Provider Unava Tom Booker Primary Care Provider Marisela Goodrich MD Primary Care Provider + Encounter Details Date Type Department Care Team Description 06/30/2019 [facility] Medical Records [address] [place] [address] Isreal Fuller Social History Tobacco Use Types [...] on filedocumented in this encounter Care Teams Piano Sounding Board Matcher Relationship Specialty Start Date End Date Alexandria Peñaloza MD PCP - General 03/26/10 07/24/20 Kristy Castrejon MD PCP - General Internal Medicine 07/25/20 1 Alexandria Peñaloza MD PCP - General Internal Medicine 11/21/20 05/13/22 Tom White [address] [place] [address] PCP - General Internal Medicine 05/14/22 10/06/22 Marisela Goodrich MD [address] [place] [address] PCP - General Internal Medicine 10/07/22 documented as of this encounter
--- OUTSIDE RECORDS SUMMARY | 2025-01-25 16:34 | XMS_ITS | Encounter Summary ---
Author Organization [facility] Address [address] [place] [address] Care Team Providers Care Optics Manufacturing Technician Name Role Phone Alexandria Peñaloza MD Primary Care Provider Kristy Milan MD Primary Care Provider Un available Alexandria Peñaloza MD Primary Care Provider Soniava Tom Booker Primary Care Provider Marisela Goodrich MD Primary Care Provider + Encounter Details Date Type Department Care Team Description 06/21/2019 [facility] Medical Records [address] [place] [address] Social History Tobacco Use Types Packs/Day Years [...] on filedocumented in this encounter Care Teams Optics Manufacturing Technician Relationship Specialty Start Date End Date Alexandria Peñaloza MD PCP - General 03/26/10 07/24/20 Kristy Castrejon MD PCP - General Internal Medicine 07/25/20 1 Alexandria Peñaloza MD PCP - General Internal Medicine 11/21/20 05/13/22 Tom White [address] [place] [address] PCP - General Internal Medicine 05/14/22 10/06/22 Marisela Goodrich MD [address] [place] [address] PCP - General Internal Medicine 10/07/22 documented as of this encounter
--- OUTSIDE RECORDS SUMMARY | 2025-01-25 16:34 | XMS_ITS | Encounter Summary ---
Author Organization [facility] Address [address] [place] [address] Care Team Providers Care Diesel Truck Mechanic Name Role Phone Alexandria Peñaloza MD Primary Care Provider Unava Kristy Rush MD Primary Care Provider Un available Alexandria Peñaloza MD Primary Care Provider Unava ilable Tom White Primary Care Provider [phone] Marisela Goodrich MD Primary Care Provider + Reason for Visit * Reason Onset Date Comments Surgery (Schedule) 11/23/2012 Encounter Details Date Type Department Care Team Description 11/23/2012 Telephone OBGYN - [address] [address] Easton Jackson MD Surgery (Schedule) Social History [...] the patient had this problem? N/A Pt???s SUPPLY MANAGER provider: Easton Jackson MD Last menstrual period (LMP) or EDC (due date): N/A documented in this encounter Plan of Treatment Not on file documented as of this encounter Visit Diagnoses Not on filedocumented in this encounter Care Teams Diesel Truck Mechanic Relationship Specialty Start Date End Date Alexandria Peñaloza MD PCP - General 03/26/10 07/24/20 Kristy Castrejon MD PCP - General Internal Medicine 07/25/20 1 Alexandria Peñaloza MD PCP - General Internal Medicine 11/21/20 05/13/22 Tom White [address] [place] [address] PCP - General Internal Medicine 05/14/22 10/06/22 Marisela Goodrich MD [address] [place] [address] PCP - General Internal Medicine 10/07/22 documented as of this encounter
--- OUTSIDE RECORDS SUMMARY | 2025-01-25 16:34 | XMS_ITS | Encounter Summary ---
Author Organization [facility] Address [address] [place] [address] Care Team Providers Care Transfusion Nurse Name Role Phone Alexandria Peñaloza MD Primary Care Provider Unava Kristy Rush MD Primary Care Provider Un available Alexandria Peñaloza MD Primary Care Provider Unava ilable Tom White Primary Care Provider [phone] Marisela Goodrich MD Primary Care Provider + Encounter Details Date Type Department Care Team Description 03/21/2015 Material Mixer Report Medical Records [address] [place] [address] Peter Matias MD Social History Tobacco Use [...] on filedocumented in this encounter Care Teams Transfusion Nurse Relationship Specialty Start Date End Date Alexandria Peñaloza MD PCP - General 03/26/10 07/24/20 Kristy Castrejon MD PCP - General Internal Medicine 07/25/20 1 Alexandria Peñaloza MD PCP - General Internal Medicine 11/21/20 05/13/22 Tom White [address] [place] [address] PCP - General Internal Medicine 05/14/22 10/06/22 Marisela Goodrich MD [address] [place] [address] PCP - General Internal Medicine 10/07/22 documented as of this encounter
--- OUTSIDE RECORDS SUMMARY | 2025-01-25 16:34 | XMS_ITS | Encounter Summary ---
Author Organization [facility] Address [address] [place] [address] Care Team Providers Care Online User Experience Strategist Name Role Phone Alexandria Peñaloza MD Primary Care Provider Unava Kristy Rush MD Primary Care Provider Un available Alexandria Peñaloza MD Primary Care Provider Unava Tom Booker Primary Care Provider [phone] Marisela Goodrich MD Primary Care Provider + Encounter Details Date Type Department Care Team Description 02/08/2013 [facility] Medical Records [address] [place] [address] Easton Jackson MD Social History Tobacco Use Types Packs/Day [...] on filedocumented in this encounter Care Teams Online User Experience Strategist Relationship Specialty Start Date End Date Alexandria Peñaloza MD PCP - General 03/26/10 07/24/20 Kristy Castrejon MD PCP - General Internal Medicine 07/25/20 1 Alexandria Peñaloza MD PCP - General Internal Medicine 11/21/20 05/13/22 Tom White [address] [place] [address] PCP - General Internal Medicine 05/14/22 10/06/22 Marisela Goodrich MD [address] [place] [address] PCP - General Internal Medicine 10/07/22 documented as of this encounter
--- OUTSIDE RECORDS SUMMARY | 2025-01-25 16:34 | XMS_ITS | Encounter Summary ---
Author Organization [facility] Address [address] [place] [address] Care Team Providers Care Machining Supervisor Name Role Phone Marisela Goodrich MD Primary Care Provider + Reason for Visit * Reason Onset Date Comments hospital follow up 12/06/2022 Encounter Details Date Type Department Care Team Description 12/06/2022 Telephone Adult Medicine [address] [address] Marisela Goodrich MD [address] [place] [address] hospital follow up Social History Tobacco Use [...] does not show missed calls. Admitted to [facility] for the same problem, looking to [...] with: Hospital/UC center patient was treated at: [facility] Date of visit: 11/25/22 11/28/22 Was this [...] on filedocumented in this encounter Care Teams Machining Supervisor Relationship Specialty Start Date End Date Marisela Goodrich MD [address] [place] [address] PCP - General Internal Medicine 10/07/22 documented as of this encounter
--- OUTSIDE RECORDS SUMMARY | 2025-01-25 16:34 | XMS_ITS | Encounter Summary ---
Author Organization [facility] Address [address] [place] [address] Care Team Providers Care Manager Intranet Name Role Phone Alexandria Peñaloza MD Primary Care Provider Unava Kristy Rush MD Primary Care Provider Un available Alexandria Peñaloza MD Primary Care Provider Unava ilTom Toscano Primary Care Provider [phone] Marisela Goodrich MD Primary Care Provider + Encounter Details Date Type Department Care Team Description 10/13/2012 Transmission Calibration Engineer Report Medical Records [address] [place] [address] Reji Hensley [address] [place] [address] Social History Tobacco Use Types Packs/Day Years [...] filedocumented in this encounter Care Teams Manager Intranet Relationship Specialty Start Date End Date Alexandria Peñaloza MD PCP - General 03/26/10 07/24/20 Kristy Castrejon MD PCP - General Internal Medicine 07/25/20 1 Alexandria Peñaloza MD PCP - General Internal Medicine 11/21/20 05/13/22 Tom White [address] [place] [address] PCP - General Internal Medicine 05/14/22 10/06/22 Marisela Goodrich MD [address] [place] [address] PCP - General Internal Medicine 10/07/22 documented as of this encounter
--- OUTSIDE RECORDS SUMMARY | 2025-01-25 16:34 | XMS_ITS | Encounter Summary ---
Author Organization [facility] Address [address] [place] [address] Care Team Providers Care Apprentice Lineman Third Step Name Role Phone Alexandria Peñaloza MD Primary Care Provider Unava Kristy Rush MD Primary Care Provider Un available Alexandria Peñaloza MD Primary Care Provider Unava Tom Booker Primary Care Provider [phone] Marisela Goodrich MD Primary Care Provider + Reason for Visit * Reason Comments E-prescribe Rx Request Encounter Details Date Type Department Care Team Description 05/07/2019 Refill Medicine/Pediatrics - [address] [phone] Cristobal Mares PA-C E-prescribe Rx Request Social [...] THE PATIENT'S LAST APPOINTMENT IN ADULT MEDICINE? [phone] WHEN WAS THE LAST TIME THE PATIENT SAW THEIR PCP? [phone] Does patient have an upcoming appointment? no [...] N/A Patients current insurance carrier is: Payor: [employer] / Plan: [employer] [facility] / Product Type: MEDICAID RISK documented in this encounter Plan of Treatment Not on file documented as of this encounter Visit Diagnoses Not on filedocumented in this encounter Care Teams Apprentice Lineman Third Step Relationship Specialty Start Date End Date Alexandria Peñaloza MD PCP - General 03/26/10 07/24/20 Kristy Castrejon MD PCP - General Internal Medicine 07/25/20 1 Alexandria Peñaloza MD PCP - General Internal Medicine 11/21/20 05/13/22 Tom White [address] [place] [address] PCP - General Internal Medicine 05/14/22 10/06/22 Marisela Goodrich MD [address] [place] [address] PCP - General Internal Medicine 10/07/22 documented as of this encounter
--- OUTSIDE RECORDS SUMMARY | 2025-01-25 16:34 | XMS_ITS | Encounter Summary ---
Author Organization [facility] Address [address] [place] [address] Care Team Providers Care Onion Topper Name Role Phone Alexandria Peñaloza MD Primary Care Provider Tom Jane Primary Care Provider [phone] Marisela Goodrich MD Primary Care Provider + Encounter Details Date Type Department Care Team Description 05/01/2021 Communications Administrator Report Medical Records [address] [place] [address] Basilio Choudhury MD Social History Tobacco Use [...] on filedocumented in this encounter Care Teams Onion Topper Relationship Specialty Start Date End Date Alexandria Peñaloza MD PCP - General Internal Medicine 11/21/20 05/13/22 Tom White [address] [place] [address] PCP - General Internal Medicine 05/14/22 10/06/22 Marisela Goodrich MD [address] [place] [address] PCP - General Internal Medicine 10/07/22 documented as of this encounter
--- OUTSIDE RECORDS SUMMARY | 2025-01-25 16:34 | XMS_ITS | Encounter Summary ---
Author Organization [facility] Address [address] [place] [address] Care Team Providers Care Plater Production Name Role Phone Alexandria Peñaloza MD Primary Care Provider Unava Kristy Rush MD Primary Care Provider Un available Alexandria Peñalzoa MD Primary Care Provider Unava Tom Booker Primary Care Provider Marisela Goodrich MD Primary Care Provider + Encounter Details Date Type Department Care Team Description [facility]/17[facility] [address] [place] [address] Md Adis Social History Tobacco Use Types [...] on filedocumented in this encounter Care Teams Plater Production Relationship Specialty Start Date End Date Alexandria Peñaloza MD PCP - General 03/26/10 07/24/20 Kristy Castrejon MD PCP - General Internal Medicine 07/25/20 1 Alexandria Peñaloza MD PCP - General Internal Medicine 11/21/20 05/13/22 Tom White [address] [place] [address] PCP - General Internal Medicine 05/14/22 10/06/22 Marisela Goodrich MD [address] [place] [address] PCP - General Internal Medicine 10/07/22 documented as of this encounter
--- OUTSIDE RECORDS SUMMARY | 2025-01-25 16:35 | XMS_ITS | Encounter Summary ---
Author Organization [facility] Address [address] [place] [address] Care Team Providers Care Dry Wall Plasterer Name Role Phone Alexandria Peñaloza MD Primary Care Provider Tom Jane Primary Care Provider [phone] Marisela Goodrich MD Primary Care Provider + Encounter Details Date Type Department Care Team Description 03/27/2021 Yarn Winder Report Medical Records [address] [place] [address] Steve Mina MD Social History Tobacco Use [...] filedocumented in this encounter Care Teams Dry Wall Plasterer Relationship Specialty Start Date End Date Alexandria Peñaloza MD PCP - General Internal Medicine 11/21/20 05/13/22 Tom White [address] [place] [address] PCP - General Internal Medicine 05/14/22 10/06/22 Marisela Goodrich MD [address] [place] [address] PCP - General Internal Medicine 10/07/22 documented as of this encounter
--- OUTSIDE RECORDS SUMMARY | 2025-01-25 16:35 | XMS_ITS | Encounter Summary ---
Author Organization [facility] Address [address] [place] [address] Care Team Providers Care Airport Traffic Controller Name Role Phone Alexandria Peñaloza MD Primary Care Provider Tom Jane Primary Care Provider [phone] Marisela Goodrich MD Primary Care Provider + Encounter Details Date Type Department Care Team Description 12/08/2020 [facility] Controlled Substance Contract Medical Records [address] [place] [address] Abstract, Provider Social History Tobacco Use Types [...] on filedocumented in this encounter Care Teams Airport Traffic Controller Relationship Specialty Start Date End Date Alexandria Peñaloza MD PCP - General Internal Medicine 11/21/20 05/13/22 Tom White [address] [place], [place] [phone] PCP - General Internal Medicine 05/14/22 10/06/22 Marisela Goodrich MD [address] [place] [address] PCP - General Internal Medicine 10/07/22 documented as of this encounter
--- OUTSIDE RECORDS SUMMARY | 2025-01-25 16:35 | XMS_ITS | Encounter Summary ---
Author Organization [facility] Address [address] [place] [address] Care Team Providers Care Chucking Machine Set Up Operator Name Role Phone Alexandria Peñaloza MD Primary Care Provider Tom Jane Primary Care Provider [phone] Marisela Goodrich MD Primary Care Provider + Encounter Details Date Type Department Care Team Description 01/30/2021 Learning Manager Report Medical Records [address] [place] [address] Nam Villela Social History Tobacco Use Types [...] on filedocumented in this encounter Care Teams Chucking Machine Set Up Operator Relationship Specialty Start Date End Date Alexandria Peñaloza MD PCP - General Internal Medicine 11/21/20 05/13/22 Tom White [address] [place] [id number] PCP - General Internal Medicine 05/14/22 10/06/22 Marisela Goodrich MD [address] [place] [address] PCP - General Internal Medicine 10/07/22 documented as of this encounter
--- OUTSIDE RECORDS SUMMARY | 2025-01-25 16:35 | XMS_ITS | Encounter Summary ---
Author Organization [facility] Address [address] [place] [address] Care Team Providers Care Mold Polisher Name Role Phone Alexandria Peñaloza MD Primary Care Provider Unava Kristy Rush MD Primary Care Provider Un available Alexandria Peñaloza MD Primary Care Provider Unava Tom Booker Primary Care Provider [phone] Marisela Goodrich MD Primary Care Provider + Reason for Referral * EXTERNAL (Routine) - Authorized/Booked Specialty Diagnoses / Procedures Referred By Caitie frye Referred To Contact Neurology Procedures REFERRAL TO NEUROLOGY Alexandria Peñaloza MD [address] [place] [id number] [place] [address] [facility] [address], [address] [place] [address] Referral ID Status Reason Start Date Expiration Date V isits Requested Visits Authorized SEE NOTE Authorized/B ooked 04/26/2019 07/28/2019 1 1 Reason for Visit * Reason Onset Date Comments REFERRAL 04/26/2019 Encounter Details Date Type Department Care Team Description 04/26/2019 Telephone Adult Medicine - [place] [address] [place], [place] [phone] Alexandria Peñaloza MD REFERRAL Social History Tobacco [...] 3:26 PM EDT Requesting a Referral to [facility] Neurology. Thank you documented in this encounter Plan of Treatment Not on file documented as of this encounter Visit Diagnoses Not on filedocumented in this encounter Care Teams Mold Polisher Relationship Specialty Start Date End Date Alexandria Peñaloza MD PCP - General 03/26/10 07/24/20 Kristy Castrejon MD PCP - General Internal Medicine 07/25/20 1 Alexandria Peñaloza MD PCP - General Internal Medicine 11/21/20 05/13/22 Tom White [address] [place] [address] PCP - General Internal Medicine 05/14/22 10/06/22 Marisela Goodrich MD [address] [place] [address] PCP - General Internal Medicine 10/07/22 documented as of this encounter
--- OUTSIDE RECORDS SUMMARY | 2025-01-25 16:35 | XMS_ITS | Clinical Summary ---
Author Organization [facility] Address [address] [place] [address] Care Team Providers Care Certified Rehabilitation Counselor Name Role Phone Marisela Goodrich MD Primary [...] 12/09/2022 Active vitamin D (ERGOCALCIFEROL) 1.25 MG (00852 UT) capsule Take 1 Capsule by mouth [...] hypoxemia without diagnosed OS A 04/08/2022 Overview: [facility] diagnostic polysomnogram 03/14/2022 weight 320; BMI 49. [...] lump, ovarian cyst, heart problem, thyroid dz, [place] age unknown Mother Alive ovarian cyst Paternal [...] PATIENTS Completed 08/26/2022, 10/02/2016, 02/15/2014 Care Teams Certified Rehabilitation Counselor Relationship Specialty Start Date End Date Marisela Goodrich MD [address] [place] [address] PCP - General Internal Medicine 10/07/22
--- OUTSIDE RECORDS SUMMARY | 2025-01-25 16:35 | XMS_ITS | Encounter Summary ---
Author Organization [facility] Address [address] [place] [address] Care Team Providers Care Air And Water Filler Name Role Phone Marisela Goodrich MD Primary Care Provider + Encounter Details Date Type Department Care Team Description 03/17/2023 Refill Medicine/Pediatrics - [address] [phone] Alexandria Peñaloza MD Social History Tobacco Use [...] on filedocumented in this encounter Care Teams Air And Water Filler Relationship Specialty Start Date End Date Marisela Goodrich MD [address] [place] [address] PCP - General Internal Medicine 10/07/22 documented as of this encounter
--- OUTSIDE RECORDS SUMMARY | 2025-01-25 16:35 | XMS_ITS | Encounter Summary ---
Author Organization [facility] Address [address] [place] [address] Care Team Providers Care Phys Asst Name Role Phone Alexandria Peñaloza MD Primary Care Provider UnaKristy Negro MD Primary Care Provider Un available Alexandria Peñaloza MD Primary Care Provider Soniava Tom Booker Primary Care Provider [phone] Marisela Goodrich MD Primary Care Provider + Encounter Details Date Type Department Care Team Description 03/15/2019 [facility] Medical Records [address] [place] [address] Social History Tobacco Use Types Packs/Day Years [...] on filedocumented in this encounter Care Teams Phys Asst Relationship Specialty Start Date End Date Alexandria Peñaloza MD PCP - General 03/26/10 07/24/20 Kristy Castrejon MD PCP - General Internal Medicine 07/25/20 1 Alexandria Peñaloza MD PCP - General Internal Medicine 11/21/20 05/13/22 Tom White [address] [place] [address] PCP - General Internal Medicine 05/14/22 10/06/22 Marisela Goodrich MD [address] [place] [address] PCP - General Internal Medicine 10/07/22 documented as of this encounter
--- OUTSIDE RECORDS SUMMARY | 2025-01-25 16:35 | XMS_ITS | Encounter Summary ---
Author Organization [facility] Address [address] [place] [address] Care Team Providers Care Hot Dimpling Machine Operator Name Role Phone Kristy Castrejon MD Primary Care Provider Un available Alexandria Peñaloza MD Primary Care Provider Soniava Tom Booker Primary Care Provider [phone] Marisela Goodrich MD Primary Care Provider + Encounter Details Date Type Department Care Team Description 09/22/2020 Refill Medicine/Pediatrics - [address] [address] Alexandria Peñaloza MD Social History Tobacco Use [...] DETECTED 07/28/2020 Sandy Santana, 34F Powered by [employer] Opioid Stewardship Module YieldBuild Report Resources Date: 09/22/2020 Download CSV Download PDF Sandy Santana Risk Indicators STATE CLINICAL ALERTS (0) Explanation and Guidance This [employer] Insights report is based on search criteria supplied and the data entered by the [facility]. For more information about any prescription, please contact the dispensing pharmacy or the prescriber. [employer] Insights scores and reports are intended to aid, not replace, medical decision making. None of the information presented should be used as sole justification for providing or refusingto provide medications. The information on this report is not warranted as accurate or complete. Graphs INFORMATION GRAPH Narcotic Buprenorphine Sedative Stimulant Other All [id number] - Sandra Penan15 - Reji Hensley, Pa14 - Alexandria Armentae13 - Kristy Mac2 - Ari Love11 - Mary Gayle [place] [id number] - Sam Tinsley, 9 - Sandy Villa, 8 - Cristobal Mares7 - [facility] 6 - Geoffrey Camarillo V,5 - Marli Vanessa,4 - Rinku Romeo MD3 - Savannah Chowdhuryg2 - Milagros Schaeffer1 - Damon Thomas MDTimeline11/[id number] Buprenorphine mg [id number] Oifxsvze83/[id number] Morphine MgEq (MME) [id number] Lorazepam MgEq (LME) [id number]/[id number] *Per CDC guidance, the MME conversion factors [...] Pharmacy Refill Daily Dose * Pymt Type COMPENSATOR WORKER 08/28/2020 1 08/28/2020 Lorazepam 2 Mg Tablet 30 30 Jalyn Woj [id number] [facility] ([facility]) 0/1 2.00 [place] 08/28/2020 1 08/28/2020 Diazepam 2 Mg Tablet 20 30 Dinero Reu [id number] [facility] (1450) 0/1 0.13 [place] 08/27/2020 1 08/25/2020 Hydrocodone-Acetamin 5-325 Mg 28 14 [facility] [phone] [facility] (1450) 0/0 10.00 [place] 08/25/2020 1 03/08/2020 Vimpat 150 Mg Tablet 60 30 Jalyn Woj [id number] [facility] (1450) 4/5 1.20 [place] 07/31/2020 1 07/25/2020 Hydrocodone-Acetamin 5-325 Mg 28 14 [facility] [id number] [facility] (1450) 0/0 10.00 [place] 07/28/2020 1 07/27/2020 Diazepam 2 Mg Tablet 20 20 [place] [id number] [facility] (1450) 0/0 0.20 [place] 07/13/2020 1 02/15/2020 Lorazepam 2 Mg Tablet 30 30 Jalyn Woj [id number] [facility] (1450) 5/5 2.00 [place] 07/11/2020 1 03/08/2020 Vimpat 150 Mg Tablet 60 30 Jalyn Woj [id number] [facility] (1450) 3/5 1.20 [place] 06/21/2020 1 06/21/2020 Hydrocodone-Acetamin 5-325 Mg 28 14 [facility] [id number] [facility] (1450) 0/0 10.00 [place] 06/21/2020 1 06/21/2020 Diazepam 2 Mg Tablet 14 14 [facility] 2426462 [facility] (1450) 0/0 0.20 [place] 06/11/2020 1 02/15/2020 Lorazepam 2 Mg Tablet 30 30 Jalyn Woj 1371582 [facility] (1450) 4/5 2.00 [place] 05/29/2020 1 03/08/2020 Vimpat 150 Mg Tablet 60 30 Jalyn Woj [id number] [facility] (1450) 2/5 1.20 [place] 05/22/2020 1 05/18/2020 Hydrocodone-Acetamin 5-325 Mg 28 14 [place] [id number] [facility] (1450) 0/0 10.00 [place] 05/13/2020 1 02/15/2020 Lorazepam 2 Mg Tablet 30 30 Jalyn Woj [id number] [facility] (1450) 3/5 2.00 [place] 05/12/2020 1 05/12/2020 Diazepam 2 Mg Tablet 14 14 [place] [id number] [facility] (1450) 0/0 0.20 [place] 04/15/2020 1 02/15/2020 Lorazepam 2 Mg Tablet 30 30 Jalyn Woj 3608072 [facility] (1450) 2/5 2.00 [place] 04/15/2020 1 04/13/2020 Hydrocodone-Acetamin 5-325 Mg 28 14 [place] [id number] [facility] (1450) 0/0 10.00 [place] 04/14/2020 1 03/08/2020 Vimpat 150 Mg Tablet 60 30 Jalyn Woj [id number] [facility] (1450) 1/5 1.20 [place] 03/18/2020 1 03/15/2020 Hydrocodone-Acetamin 5-325 Mg 28 14 [facility] [id number] [facility] (1450) 0/0 10.00 [place] 03/16/2020 1 03/08/2020 Vimpat 150 Mg Tablet 60 30 Jalyn Woj 1676050 [facility] (1450) 0/5 1.20 [place] 03/15/2020 1 02/15/2020 Lorazepam 2 Mg Tablet 30 30 Jalyn Woj [id number] [facility] (1450) 1/5 2.00 [place] 02/16/2020 1 02/15/2020 Vimpat 150 Mg Tablet 30 30 Jalyn Woj [id number] [facility] (1450) 0/5 0.60 [place] 02/15/2020 1 02/15/2020 Vimpat 200 Mg Tablet 30 30 Jalyn Woj [id number] [facility] (1450) 0/5 0.80 [place] 02/15/2020 1 02/15/2020 Lorazepam 2 Mg Tablet 30 30 Jalyn Woj [id number] [facility] (1450) 0/5 2.00 [place] 02/11/2020 1 02/03/2020 Hydrocodone-Acetamin 5-325 Mg 28 14 Sa O's [id number] [facility] (1450) 0/0 10.00 [place] 01/20/2020 1 01/20/2020 Codeine-Guaifen 10-100 Mg/5 Ml 150 10 Sa O's [id number] [facility] (1450) 0/0 4.50 [place] 01/20/2020 1 01/20/2020 Vimpat 150 Mg Tablet 60 30 Jalyn Woj 5588732 [facility] (1450) 0/0 1.20 [place] 01/14/2020 1 01/10/2020 Lorazepam 2 Mg Tablet 30 30 Jalyn Woj [id number] [facility] (1450) 0/0 2.00 [place] 12/17/2019 1 12/17/2019 Diazepam 2 Mg Tablet 10 5 Ch Mil [id number] [facility] (1450) 0/0 0.40 [place] 12/17/2019 1 11/15/2019 Lorazepam 2 Mg Tablet 30 30 Jalyn Woj [id number] [facility] (1450) 1/1 2.00 [place] 12/14/2019 1 12/14/2019 Hydrocodone-Acetamin 5-325 Mg 28 14 Ch Mil [id number] [facility] (1450) 0/0 10.00 [place] 12/08/2019 1 12/08/2019 Vimpat 150 Mg Tablet 60 30 Jalyn Woj [id number] [facility] (1450) 0/0 1.20 [place] 11/19/2019 1 11/18/2019 Hydrocodone-Acetamin 5-325 Mg 28 14 [place] [id number] [facility] (1450) 0/0 10.00 [place] 11/15/2019 1 11/15/2019 Diazepam 2 Mg Tablet 10 5 [place] [id number] [facility] (1450) 0/0 0.40 [place] 11/15/2019 1 11/15/2019 Lorazepam 2 Mg Tablet 30 30 Jalyn Woj [id number] [facility] (1450) 0/1 2.00 [place] 10/27/2019 1 10/27/2019 Hydrocodone-Acetamin 5-325 Mg 28 14 [place] [id number] [facility] (1450) 0/0 10.00 [place] 10/18/2019 1 10/18/2019 Vimpat 150 Mg Tablet 60 30 Jalyn Woj [id number] [facility] (1450) 0/0 1.20 [place] 10/09/2019 1 04/19/2019 Lorazepam 2 Mg Tablet 30 30 Jalyn Woj [id number] [facility] (1450) 5/5 2.00 [place] 09/18/2019 1 09/09/2019 Diazepam 2 Mg Tablet 10 5 [place] [id number] [facility] (1450) 0/0 0.40 [place] 09/18/2019 1 09/09/2019 Oxycodone Hcl 5 Mg Tablet 20 20 [place] [id number] [facility] (1450) 0/0 7.50 [place] 09/11/2019 1 03/22/2019 Vimpat 150 Mg Tablet 60 30 Wi Krystian [id number] [facility] (1450) 4/5 1.20 [place] 09/10/2019 1 04/19/2019 Lorazepam 2 Mg Tablet 30 30 Jalyn Woj [id number] [facility] (1450) 4/5 2.00 [place] 08/14/2019 1 03/22/2019 Vimpat 150 Mg Tablet 60 30 Wi Krystian [id number] [facility] (1450) 3/5 1.20 [place] 08/14/2019 1 04/19/2019 Lorazepam 2 Mg Tablet 30 30 Jalyn Woj [id number] [facility] (1450) 3/5 2.00 [place] 08/04/2019 1 08/03/2019 Oxycodone Hcl 5 Mg Tablet 20 20 Mil [id number] [facility] (1450) 0/0 7.50 [place] 07/07/2019 1 07/07/2019 Diazepam 2 Mg Tablet 10 5 Mil [id number] [facility] (1450) 0/0 0.40 [place] 07/07/2019 1 04/19/2019 Lorazepam 2 Mg Tablet 30 30 Jalyn Woj [id number] [facility] (1450) 2/5 2.00 [place] 07/01/2019 1 07/01/2019 Oxycodone Hcl 5 Mg Tablet 30 10 [place] [id number] [facility] (1450) 0/0 22.50 [place] 06/21/2019 1 03/22/2019 Vimpat 150 Mg Tablet 60 30 Wi Krystian [id number] [facility] (1450) 2/5 1.20 [place] 06/04/2019 1 04/21/2019 Lyrica 25 Mg Capsule 21 14 Di Lav [id number] [facility] (1450) 0/0 0.25 [place] 05/27/2019 1 04/19/2019 Lorazepam 2 Mg Tablet 30 30 Jalyn Woj [id number] [facility] (1450) 1/5 2.00 [place] 05/21/2019 1 05/21/2019 Oxycodone Hcl 5 Mg Tablet 20 20 Di Lav [id number] [facility] (1450) 0/0 7.50 [place] 05/18/2019 1 03/22/2019 Vimpat 150 Mg Tablet 60 30 Wi Krystian [id number] [facility] (1450) 1/5 1.20 [place] 05/12/2019 1 05/12/2019 Lyrica 75 Mg Capsule 30 30 Ti Bur [id number] [facility] (1450) 0/0 0.50 [place] 04/23/2019 1 04/19/2019 Lorazepam 2 Mg Tablet 30 30 Jalyn Woj [id number] [facility] (1450) 0/5 2.00 [place] 04/19/2019 1 04/13/2019 Diazepam 2 Mg Tablet 10 5 Do Severiano [id number] [facility] (1450) 0/0 0.40 [place] 04/14/2019 1 04/13/2019 Oxycodone Hcl 5 Mg Tablet 20 20 Di Lav [id number] [facility] (1450) 0/0 7.50 [place] 04/13/2019 1 04/13/2019 Diazepam 2 Mg Tablet 10 5 Do Severiano [id number] [facility] (1450) 0/0 0.40 [place] 03/26/2019 1 03/26/2019 Lyrica 75 Mg Capsule 30 30 Ti Bur [id number] [facility] (1450) 0/0 0.50 [place] 03/26/2019 1 03/26/2019 Lorazepam 2 Mg Tablet 30 30 Ba Inc [id number] [place] (9210) 0/0 2.00 [place] 03/24/2019 1 03/22/2019 Vimpat 150 Mg Tablet 60 30 Wi Krystian [id number] [facility] (1450) 0/5 1.20 [place] 02/25/2019 1 02/25/2019 Lyrica 75 Mg Capsule 30 30 As Hof [id number] [facility] (1450) 0/0 0.50 [place] 02/16/2019 1 02/16/2019 Diazepam 2 Mg Tablet 10 5 Ch Mil [id number] [facility] (1450) 0/0 0.40 [place] 02/08/2019 1 02/08/2019 Lyrica 50 Mg Capsule 30 30 Ch Mil [id number] [facility] (1450) 0/0 0.34 [place] 02/06/2019 1 02/03/2019 Oxycodone Hcl 5 Mg Tablet 10 3 Se [place] [id number] [facility] (1450) 0/0 25.00 [place] 02/05/2019 1 09/22/2018 Vimpat 150 Mg Tablet 60 30 Jalyn Woj [id number] [facility] (1450) 3/3 1.20 [place] 01/27/2019 1 01/26/2019 Oxycodone Hcl 5 Mg Tablet 12 3 Je Bar [id number] [facility] (1450) 0/0 30.00 [place] 01/17/2019 1 01/17/2019 Oxycodone Hcl 5 Mg Tablet 20 20 Ke Arm [id number] [facility] (3429) 0/0 7.50 [place] 01/08/2019 1 12/28/2018 Vimpat 10 Mg/ml Solution 900 30 Jalyn Woj [id number] [facility] (1450) 0/5 1.20 [place] 12/28/2018 1 12/28/2018 Lyrica 50 Mg Capsule 30 30 Ch Mil [id number] [facility] (1450) 0/0 0.34 [place] 12/18/2018 1 12/17/2018 Diazepam 5 Mg/ml Oral Conc 120 30 Do Severiano [id number] [facility] (1450) 0/0 2.00 [place] 11/27/2018 1 09/22/2018 Vimpat 150 Mg Tablet 60 30 Jalyn Woj [id number] [facility] (1450) 2/3 1.20 [place] 11/27/2018 1 11/27/2018 Diazepam 2 Mg Tablet 10 5 Ch Mil [id number] [facility] (1450) 0/0 0.40 [place] 11/12/2018 1 11/09/2018 Lyrica 50 Mg Capsule 30 30 Do Severiano [id number] [facility] (1450) 0/0 0.34 [place] 11/09/2018 1 11/09/2018 Diazepam 2 Mg Tablet 20 10 Do Severiano [id number] [facility] (1450) 0/0 0.40 [place] 11/03/2018 1 11/03/2018 Oxycodone Hcl 5 Mg Tablet 20 20 Do Severiano [id number] [facility] (1450) 0/0 7.50 [place] 10/30/2018 1 2018 Lorazepam 1 Mg Tablet 12 4 As Hof [id number] [facility] (1450) 0/0 3.00 [place] 10/28/2018 1 09/22/2018 Vimpat 150 Mg Tablet 60 30 Jalyn Woj [id number] [facility] (1450) 1/3 1.20 [place] 10/23/2018 1 10/23/2018 Hydrocodone-Acetamin 5-325 Mg 12 3 Sc Mil [id number] [facility] (1450) 0/0 20.00 [place] [...] milligrams. Providers Total Providers: 16 Name Address [facility] [place] Phone Damon Thomas MD [address] [facility] [address] - [facility] [address] [facility] [address] Savannah Castrejon MD [address] [facility] [address] - Cristobal Bunch Mares [address] [facility] [address] Rinku Romeo MD [address] [facility] [address] - Sam Tinsley MD [address] [place] [address] - Jaiden Bates [address] [facility] [address] - Geoffrey Camarillo V, Pa V [address] [facility] [address] - Milagros Cook Pa-C [address] [facility] [address] - Jaiden Hammond-C [address] [facility] [address] - Mary Irene [address] [facility] [address] - Sandra Benito MD [address] [facility] [address] - Ari Crowley MD [address] [facility] [address] - Kristy Castrejon MD [address] [facility] [address] - Alexandria Peñaloza MD [address] [facility] [address] - Jaiden Celestin-C Division Of Neurology [facility] [address] - Pharmacies Total Pharmacies: 3 Name Address [facility] State Zipcode Phone [facility] [phone] [facility] [address] [facility] [employer] [phone] [facility] [phone] [facility] [employer] [phone] [facility] [phone] documented in this encounter Plan of Treatment Not on file documented as of this encounter Visit Diagnoses Not on filedocumented in this encounter Care Teams Hot Dimpling Machine Operator Relationship Specialty Start Date End Date Kristy Castrejon MD PCP - General Internal Medicine 07/25/20 1 Alexandria Peñaloza MD PCP - General Internal Medicine 11/21/20 05/13/22 Tom White [address] [place] [address] PCP - General Internal Medicine 05/14/22 10/06/22 Marisela Goodrich MD [address] [place] [address] PCP - General Internal Medicine 10/07/22 documented as of this encounter
--- OUTSIDE RECORDS SUMMARY | 2025-01-25 16:35 | XMS_ITS | Encounter Summary ---
Author Organization [facility] Address [address] [place] [address] Care Team Providers Care Surgical Assist Name Role Phone Alexandria Peñaloza MD Primary Care Provider Unava Kristy Rush MD Primary Care Provider Un available Alexandria Peñaloza MD Primary Care Provider Unava ilTom Toscano Primary Care Provider [phone] Marisela Goodrich MD Primary Care Provider + Encounter Details Date Type Department Care Team Description 03/31/2019 [facility] Medical Records [address] [place] [address] Nam Davenport MD Social History Tobacco Use [...] on filedocumented in this encounter Care Teams Surgical Assist Relationship Specialty Start Date End Date Alexandria Peñaloza MD PCP - General 03/26/10 07/24/20 Kristy Castrejon MD PCP - General Internal Medicine 07/25/20 1 Alexandria Peñaloza MD PCP - General Internal Medicine 11/21/20 05/13/22 Tom White [address] [place] [address] PCP - General Internal Medicine 05/14/22 10/06/22 Marisela Goodrich MD [address] [place] [address] PCP - General Internal Medicine 10/07/22 documented as of this encounter
--- OUTSIDE RECORDS SUMMARY | 2025-01-25 16:35 | XMS_ITS | Encounter Summary ---
Author Organization [facility] Address [address] [place] [address] Care Team Providers Care Medical Research Scientist Name Role Phone Alexandria Peñaloza MD Primary Care Provider Tom Jane Primary Care Provider [phone] Marisela Goodrich MD Primary Care Provider + Encounter Details Date Type Department Care Team Description 01/12/2021 Commercial Real Estate Underwriter Report Medical Records [address] [place] [address] Abstract, Provider Social History Tobacco Use Types [...] filedocumented in this encounter Care Teams Medical Research Scientist Relationship Specialty Start Date End Date Alexandria Peñaloza MD PCP - General Internal Medicine 11/21/20 05/13/22 Tom White [address] [place] [address] PCP - General Internal Medicine 05/14/22 10/06/22 Marisela Goodrich MD [address] [place] [address] PCP - General Internal Medicine 10/07/22 documented as of this encounter
--- OUTSIDE RECORDS SUMMARY | 2025-01-25 16:35 | XMS_ITS | Encounter Summary ---
Author Organization [facility] Address [address] [place] [address] Care Team Providers Care Critical Care Physician Assistant Name Role Phone Alexandria Peñaloza MD Primary Care Provider UnaKristy Negro MD Primary Care Provider Un available Alexandria Peñaloza MD Primary Care Provider Soniava Tom Booker Primary Care Provider [phone] Marisela Goodrich MD Primary Care Provider + Encounter Details Date Type Department Care Team Description 03/26/2019 [facility] Medical Records [address] [place] [address] Social History Tobacco Use Types Packs/Day Years [...] on filedocumented in this encounter Care Teams Critical Care Physician Assistant Relationship Specialty Start Date End Date Alexandria Peñaloza MD PCP - General 03/26/10 07/24/20 Kristy Castrejon MD PCP - General Internal Medicine 07/25/20 1 Alexandria Peñaloza MD PCP - General Internal Medicine 11/21/20 05/13/22 Tom White [address] [place] [address] PCP - General Internal Medicine 05/14/22 10/06/22 Marisela Goodrich MD [address] [place] [address] PCP - General Internal Medicine 10/07/22 documented as of this encounter
--- OUTSIDE RECORDS SUMMARY | 2025-01-25 16:35 | XMS_ITS | Encounter Summary ---
Author Organization [facility] Address [address] [place] [address] Care Team Providers Care Financial Reporting Analyst Name Role Phone Marisela Goodrich MD Primary Care Provider + Reason for Visit * Reason Comments E-prescribe Rx Request Encounter Details Date Type Department Care Team Description 09/23/2023 Refill Adult Medicine [facility] [address] [place] [address] Marisela Goodrich MD [address] [place] [address] E-prescribe Rx Request Social History Tobacco Use [...] 1 Mg Tablet 10 10 Sh Dev [id number] [facility] (1450) 1/2 1.00 LME [place] 09/08/2023 09/08/2023 1 Lorazepam 1 Mg Tablet 10 10 Sh Dev [id number] [facility] (1450) 0/2 1.00 [place] 09/08/2023 08/11/2023 1 Lacosamide 150 Mg Tablet 60 30 Wi Krystian [id number] [facility] (1450) 1/ 1.20 [place] 08/18/2023 08/18/2023 1 Pregabalin 100 Mg Capsule 120 30 Oy Ogu [id number] [facility] (1450) 0/0 2.68 [place] 08/11/2023 08/11/2023 1 Lorazepam 1 Mg Tablet 10 10 Sh Dev [id number] [facility] (1450) 0/0 1.00 [place] 08/11/2023 08/11/2023 1 Lacosamide 150 Mg Tablet 60 30 Wi Krystian 7250281 [facility] (1450) 0/5 1.20 [place] 07/17/2023 07/17/2023 1 Pregabalin 100 Mg Capsule 120 30 Oy Ogu [id number] [facility] (1450) 0/0 2.68 [place] 07/12/2023 06/11/2023 1 Lacosamide 150 Mg Tablet 60 30 Be Radha [id number] [facility] (1450) 1/ 1.20 [place] 06/16/2023 06/16/2023 1 Pregabalin 100 Mg Capsule 120 30 Oy Ogu [id number] [facility] (1450) 0/0 2.68 [place] 06/11/2023 06/11/2023 1 Lacosamide 150 Mg Tablet 60 30 Be Radha [id number] [facility] (1450) 0/ 1.20 [place] 05/09/2023 04/09/2023 1 Lacosamide 150 Mg Tablet 60 30 Be Radha [id number] [facility] (1450) 11/17 1.20 [place] 05/07/2023 05/07/2023 1 Oxycodone Hcl (Ir) 5 Mg Tablet [address] [id number] [facility] (1450) 0/0 45.00 [place] 04/29/2023 02/26/2023 1 Pregabalin 100 Mg Capsule 180 45 Oy Ogu [id number] [facility] (1450) 11/17 2.68 [place] 04/10/2023 04/09/2023 1 Lacosamide 150 Mg Tablet 60 30 Be Radha [id number] [facility] (1450) 0 1.20 [place] 04/10/2023 04/10/2023 1 Morphine Sulfate Ir 15 Mg Tab 7 2 Ch Gre [id number] [facility] (1450) 0/0 52.50 [place] [...] Patients current insurance carrier is: Payor: [facility] FFS / Plan: [facility] / Product Type: MEDICAID RISK documented in this encounter Plan of Treatment Not on file documented as of this encounter Visit Diagnoses Not on filedocumented in this encounter Care Teams Financial Reporting Analyst Relationship Specialty Start Date End Date Marisela Goodrich MD [address] [place] [address] PCP - General Internal Medicine 10/07/22 documented as of this encounter
--- OUTSIDE RECORDS SUMMARY | 2025-01-25 16:35 | XMS_ITS | Encounter Summary ---
Author Organization [facility] Address [address] [place] [address] Care Team Providers Care Cut Out Machine Operator Name Role Phone Marisela Goodrich MD Primary Care Provider + Encounter Details Date Type Department Care Team Description 11/05/2023 Orders Only Medical Records [address] [place] [address] Sam Tinsley MD Social History Tobacco Use [...] on filedocumented in this encounter Care Teams Cut Out Machine Operator Relationship Specialty Start Date End Date Marisela Goodrich MD [address] [place] [address] PCP - General Internal Medicine 10/07/22 documented as of this encounter
--- OUTSIDE RECORDS SUMMARY | 2025-01-25 16:35 | XMS_ITS | Encounter Summary ---
Author Organization [facility] Address [address] [place] [address] Care Team Providers Care Director Adult Name Role Phone Marisela Goodrich MD Primary Care Provider + Encounter Details Date Type Department Care Team Description 03/27/2023 Refill Medicine/Pediatrics - [place] [address] [place] [address] Marisela Goodrich MD [address] [place] [address] [phone] Social History Tobacco Use Types Packs/Day Years [...] filedocumented in this encounter Care Teams Director Adult Relationship Specialty Start Date End Date Marisela Goodrich MD [address] [place] [address] PCP - General Internal Medicine 10/07/22 documented as of this encounter
== END 2025-01-25 14:11 | disposition home or self-care (01) ==
LOC: HO.HPSW 13:38
PROVIDERS: PCP Nurse Practitioner Family; Visit Provider Nurse Practitioner Family
DX: J45.909 Unspecified asthma, uncomplicated (principal); R06.02 Shortness of breath; Z91.09 Other allergy status, other than to drugs and biological substances; Z87.891 Personal history of nicotine dependence
CPT/HCPCS: 99214

== ENCOUNTER → 2025-01-25 13:37 | Outpatient (BNVA) | payer OTHER, SELFPAY | PROVIDERS: PCP Nurse Practitioner Family; Visit Provider Nurse Practitioner Family | DX: J45.909 Unspecified asthma, uncomplicated (principal); R06.02 Shortness of breath; Z91.09 Other allergy status, other than to drugs and biological substances; Z87.891 Personal history of nicotine dependence | CPT/HCPCS: 99212 ==

== ENCOUNTER 2025-04-02 09:50 | Outpatient (REF) | payer OTHER, SELFPAY ==
--- OUTSIDE RECORDS SUMMARY | 2025-04-02 09:52 | XMS_ITS | Encounter Summary ---
Author Organization [facility] Address [address] [place] [address] Care Team Providers Care Watershed Coordinator Name Role Phone Alexandria Peñaloza MD Primary Care Provider UnaKristy Negro MD Primary Care Provider Un available Alexandria Peñaloza MD Primary Care Provider Soniava Tom Booker Primary Care Provider [phone] Marisela Goodrich MD Primary Care Provider + Encounter Details Date Type Department Care Team Description 05/24/2016 [facility] Medical Records [address] [place] [address] Abstract, Provider Social History Tobacco Use Types [...] on filedocumented in this encounter Care Teams Watershed Coordinator Relationship Specialty Start Date End Date Alexandria Peñaloza MD PCP - General 03/26/10 07/24/20 Kristy Castrejon MD PCP - General Internal Medicine 07/25/20 1 Alexandria Peñaloza MD PCP - General Internal Medicine 11/21/20 05/13/22 Tom White [address] [place] [address] PCP - General Internal Medicine 05/14/22 10/06/22 Marisela Goodrich MD [address] [place] [address] PCP - General Internal Medicine 10/07/22 documented as of this encounter
--- OUTSIDE RECORDS SUMMARY | 2025-04-02 09:52 | XMS_ITS | Encounter Summary ---
Author Organization [facility] Address [address] [place] [address] Care Team Providers Care Cloth Carrier Name Role Phone Alexandria Peñaloza MD Primary Care Provider Unava Kristy Rush MD Primary Care Provider Un available Alexandria Peñaloza MD Primary Care Provider Unava Tom Booker Primary Care Provider [phone] Marisela Goodrich MD Primary Care Provider + Encounter Details Date Type Department Care Team Description 04/10/2016 CORNER CUTTER MACHINE OPERATOR/[facility] Report Medical Records [address] [place] [address] Abstract, Provider Social History Tobacco Use Types [...] on filedocumented in this encounter Care Teams Cloth Carrier Relationship Specialty Start Date End Date Alexandria Peñaloza MD PCP - General 03/26/10 07/24/20 Kristy Castrejon MD PCP - General Internal Medicine 07/25/20 1 Alexandria Peñaloza MD PCP - General Internal Medicine 11/21/20 05/13/22 Tom White [address] [place] [address] PCP - General Internal Medicine 05/14/22 10/06/22 Marisela Goodrich MD [address] [place] [address] PCP - General Internal Medicine 10/07/22 documented as of this encounter
--- OUTSIDE RECORDS SUMMARY | 2025-04-02 09:52 | XMS_ITS | Encounter Summary ---
Author Organization [facility] Address [address] [place] [address] Care Team Providers Care Blind Hooker Name Role Phone [place] Peñaloza MD Primary Care Provider Unava Kristy Rush MD Primary Care Provider Un available [place] Peñaloza MD Primary Care Provider Unava Tom Booker Primary Care Provider [phone] Marisela Goodrich MD Primary Care Provider + Encounter Details Date Type Department Care Team Description 05/23/2016 Hospital Medical Records [address] [place] [address] India Yates MD Social History Tobacco Use [...] on filedocumented in this encounter Care Teams Blind Hooker Relationship Specialty Start Date End Date [place] Peñaloza MD PCP - General 03/26/10 07/24/20 Kristy Castrejon MD PCP - General Internal Medicine 07/25/20 1 [place] Peñaloza MD PCP - General Internal Medicine 11/21/20 05/13/22 Tom White [address] [place] [address] PCP - General Internal Medicine 05/14/22 10/06/22 Marisela Goodrich MD [address] [place] [address] PCP - General Internal Medicine 10/07/22 documented as of this encounter
--- OUTSIDE RECORDS SUMMARY | 2025-04-02 09:52 | XMS_ITS | Encounter Summary ---
Author Organization [facility] Address [address] [place] [address] Care Team Providers Care Lab Animal Technologist Name Role Phone [place] Peñaloza MD Primary Care Provider Unava Kristy Rush MD Primary Care Provider Un available [place] Peñaloza MD Primary Care Provider Unava Tom Booker Primary Care Provider [phone] Marisela Goodrich MD Primary Care Provider + Reason for Visit * Reason Onset Date Comments Prior Authorization 05/29/2016 Encounter Details Date Type Department Care Team Description 05/29/2016 Telephone Medicine/Pediatrics - [address] [phone] [place] Peñaloza MD Prior Authorization Social History [...] has taken imodium . Please fax to [phone] so I may proceed with a prior authorization . If she has taken imodium then she has met criteria for medication Thank you [place] p [phone] prior authorization pool Lacey Farmer [facility] Prior Authorizations Ext: [phone] * [...] Thank you [place] p [phone] prior authorization pool Lacey Farmer C.M.[facility] Prior Authorizations Ext: [phone] * Telephone Encounter - Mavis Oh - 05/29/2016 9:11 AM EDT Pre Authorization for Medication Does the patient already have this medication?YES Is this a Cover My Meds request: Pheba of Medication xifaxan 550 mg tablet Dose of Medication 500 mg How does patient take this med? Take 1 tab by mouth 3 times daily What other dosage or similar medication have you tried in the past for this problem Patients current medical insurance [facility] What Prescription Plan does the patient have? [facility] Pres[facility] Tel # from back of prescription ID card What is the patients Prescription Plan ID #? What [facility] [place]: [place] / Plan: MEDICAID PCC / Product Type: MEDICAID [id number] documented in this encounter Plan of Treatment Not on file documented as of this encounter Visit Diagnoses Not on filedocumented in this encounter Care Teams Lab Animal Technologist Relationship Specialty Start Date End Date [place] Peñaloza MD PCP - General 03/26/10 07/24/20 Kristy Castrejon MD PCP - General Internal Medicine 07/25/20 1 [place] Peñaloza MD PCP - General Internal Medicine 11/21/20 05/13/22 Tom White [address] [place] [address] PCP - General Internal Medicine 05/14/22 10/06/22 Marisela Goodrich MD [address] [place] [address] PCP - General Internal Medicine 10/07/22 documented as of this encounter
--- OUTSIDE RECORDS SUMMARY | 2025-04-02 09:52 | XMS_ITS | Encounter Summary ---
Author Organization [facility] Address [address] [place] [address] Care Team Providers Care Access Coordinator Name Role Phone [place] Peñaloza MD Primary Care Provider Unava Kristy Rush MD Primary Care Provider Un available [place] Peñaloza MD Primary Care Provider Unava Tom Booker Primary Care Provider [phone] Marisela Goodrich MD Primary Care Provider + Encounter Details Date Type Department Care Team Description 04/25/2016 [facility] Medical Records [address] [place] [address] Abstract, Provider Pneumonia of left lower lobe [...] organism documented in this encounter Care Teams Access Coordinator Relationship Specialty Start Date End Date [place] Peñaloza MD PCP - General 03/26/10 07/24/20 Kristy Castrejon MD PCP - General Internal Medicine 07/25/20 1 [place] Peñaloza MD PCP - General Internal Medicine 11/21/20 05/13/22 Tom White [address] [place], [place] [id number] PCP - General Internal Medicine 05/14/22 10/06/22 Marisela Goodrich MD [address] [place] [address] PCP - General Internal Medicine 10/07/22 documented as of this encounter
--- OUTSIDE RECORDS SUMMARY | 2025-04-02 09:52 | XMS_ITS | Encounter Summary ---
Author Organization [facility] Address [address] [place] [address] Care Team Providers Care Emissions Technician Name Role Phone [place] Peñaloza MD Primary Care Provider UnaKristy Negro MD Primary Care Provider Un available [place] Peñaloza MD Primary Care Provider Tom Jane Primary Care Provider [phone] Marisela Goodrich MD Primary Care Provider + Encounter Details Date Type Department Care Team Description 02/13/2016 Hospital Medical Records [address] [place] [address] Tom White [address] [place] [address] Social History Tobacco Use Types Packs/Day Years [...] on filedocumented in this encounter Care Teams Emissions Technician Relationship Specialty Start Date End Date [place] Peñaloza MD PCP - General 03/26/10 07/24/20 Kristy Castrejon MD PCP - General Internal Medicine 07/25/20 1 [place] Peñaloza MD PCP - General Internal Medicine 11/21/20 05/13/22 Tom White [address] [place] [address] PCP - General Internal Medicine 05/14/22 10/06/22 Marisela Goodrich MD [address] [place] [address] PCP - General Internal Medicine 10/07/22 documented as of this encounter
--- OUTSIDE RECORDS SUMMARY | 2025-04-02 09:52 | XMS_ITS | Encounter Summary ---
Author Organization [facility] Address [address] [place] [address] Care Team Providers Care Camera Control Operator Name Role Phone [place] Peñaloza MD Primary Care Provider Unava Kristy Rush MD Primary Care Provider Un available [place] Peñaloza MD Primary Care Provider Unava ilTom Toscano Primary Care Provider [phone] Marisela Goodrich MD Primary Care Provider + Encounter Details Date Type Department Care Team Description 11/24/2018 Hospital Medical Records [address] [place] [id number] Preeti Álvarez Social History Tobacco Use Types [...] on filedocumented in this encounter Care Teams Camera Control Operator Relationship Specialty Start Date End Date [place] Peñaloza MD PCP - General 03/26/10 07/24/20 Kristy Castrejon MD PCP - General Internal Medicine 07/25/20 1 [place] Peñaloza MD PCP - General Internal Medicine 11/21/20 05/13/22 Tom White [address] [place] [address] PCP - General Internal Medicine 05/14/22 10/06/22 Marisela Goodrich MD [address] [place] [address] PCP - General Internal Medicine 10/07/22 documented as of this encounter
--- OUTSIDE RECORDS SUMMARY | 2025-04-02 09:53 | XMS_ITS | Encounter Summary ---
Author Organization [facility] Address [address] [place] [address] Care Team Providers Care Dustless Operator Name Role Phone [place] Peñaloza MD Primary Care Provider UnaKristy Negro MD Primary Care Provider Un available [place] Peñaloza MD Primary Care Provider Soniava Tom Booker Primary Care Provider [phone] Marisela Goodrich MD Primary Care Provider + Encounter Details Date Type Department Care Team Description 07/30/2016 Controlled Substance Contract with Plan Medical Records [address] [place] [address] Abstract, Provider Social History Tobacco Use Types [...] on filedocumented in this encounter Care Teams Dustless Operator Relationship Specialty Start Date End Date [place] Peñaloza MD PCP - General 03/26/10 07/24/20 Kristy Castrejon MD PCP - General Internal Medicine 07/25/20 1 [place] Peñaloza MD PCP - General Internal Medicine 11/21/20 05/13/22 Tom White [address] [place] [address] PCP - General Internal Medicine 05/14/22 10/06/22 Marisela Goodrich MD [address] [place] [address] PCP - General Internal Medicine 10/07/22 documented as of this encounter
--- OUTSIDE RECORDS SUMMARY | 2025-04-02 09:53 | XMS_ITS | Encounter Summary ---
Author Organization [facility] Address [address] [place] [address] Care Team Providers Care Talking Books Library Clerk Name Role Phone [place] Peñaloza MD Primary Care Provider Tom Jane Primary Care Provider [phone] Marisela Goodrich MD Primary Care Provider + Encounter Details Date Type Department Care Team Description 12/20/2021 Telephone Adult Medicine - [address] [address] Aye Ortega PA-C [address] [place] [address] Social History Tobacco Use Types Packs/Day Years [...] on filedocumented in this encounter Care Teams Talking Books Library Clerk Relationship Specialty Start Date End Date [place] Peñaloza MD PCP - General Internal Medicine 11/21/20 05/13/22 Tom White [address] [place] [address] PCP - General Internal Medicine 05/14/22 10/06/22 Marisela Goodrich MD [address] [place], [place] [phone] PCP - General Internal Medicine 10/07/22 documented as of this encounter
--- OUTSIDE RECORDS SUMMARY | 2025-04-02 09:53 | XMS_ITS | Encounter Summary ---
Author Organization [facility] Address [address] [place] [address] Care Team Providers Care Teller Name Role Phone [place] Peñaloza MD Primary Care Provider Unava Kristy Rush MD Primary Care Provider Un available [place] Peñaloza MD Primary Care Provider Unava ilTom Toscano Primary Care Provider [phone] Marisela Goodrich MD Primary Care Provider + Encounter Details Date Type Department Care Team Description 01/21/2011 Staff Psychologist Report Medical Records [address] [place] [address] Reji Hensley [address] [place] [address] Social History Tobacco Use Types Packs/Day Years [...] on filedocumented in this encounter Care Teams Teller Relationship Specialty Start Date End Date [place] Peñaloza MD PCP - General 03/26/10 07/24/20 Kristy Castrejon MD PCP - General Internal Medicine 07/25/20 1 [place] Peñaloza MD PCP - General Internal Medicine 11/21/20 05/13/22 Tom White [address] [place] [address] PCP - General Internal Medicine 05/14/22 10/06/22 Marisela Goodrich MD [address] [place] [address] PCP - General Internal Medicine 10/07/22 documented as of this encounter
--- OUTSIDE RECORDS SUMMARY | 2025-04-02 09:53 | XMS_ITS | Encounter Summary ---
Author Organization [facility] Address [address] [place] [address] Care Team Providers Care Driver Courier Name Role Phone [place] Peñaloza MD Primary Care Provider Unava Kristy Rush MD Primary Care Provider Un available [place] Peñaloza MD Primary Care Provider Unava ilTom Toscano Primary Care Provider [phone] Marisela Goodrich MD Primary Care Provider + Encounter Details Date Type Department Care Team Description 09/02/2019 [facility] Medical Records [address] [place] [address] Juanjose Connell MD Social History Tobacco Use [...] on filedocumented in this encounter Care Teams Driver Courier Relationship Specialty Start Date End Date [place] Peñaloza MD PCP - General 03/26/10 07/24/20 Kristy Castrejon MD PCP - General Internal Medicine 07/25/20 1 [place] Peñaloza MD PCP - General Internal Medicine 11/21/20 05/13/22 Tom White [address] [place] [address] PCP - General Internal Medicine 05/14/22 10/06/22 Marisela Goodrich MD [address] [place] [address] PCP - General Internal Medicine 10/07/22 documented as of this encounter
--- OUTSIDE RECORDS SUMMARY | 2025-04-02 09:53 | XMS_ITS | Encounter Summary ---
Author Organization [facility] Address [address] [place] [address] Care Team Providers Care Cathead Operator Name Role Phone [place] Peñaloza MD Primary Care Provider Tom Jane Primary Care Provider [phone] Marisela Goodrich MD Primary Care Provider + Reason for Visit * Reason Onset Date Comments radiology 11/23/2021 Encounter Details Date Type Department Care Team Description 11/23/2021 Telephone MRI - [facility] [address] [place] [address] Aye Ortega PA-C [address] [place] [address] radiology Social History Tobacco Use Types Packs/Day [...] and will need to be scanned at [facility] on open mri machine due to her BMI. Can you please place external order? Thank you, [facility] Mri department ext [phone] documented in this encounter Plan of Treatment Not on file documented as of this encounter Visit Diagnoses Not on filedocumented in this encounter Care Teams Cathead Operator Relationship Specialty Start Date End Date [place] Peñaloza MD PCP - General Internal Medicine 11/21/20 05/13/22 Tom White [address] [place] [address] PCP - General Internal Medicine 05/14/22 10/06/22 Marisela Goodrich MD [address] [place] [address] PCP - General Internal Medicine 10/07/22 documented as of this encounter
--- OUTSIDE RECORDS SUMMARY | 2025-04-02 09:53 | XMS_ITS | Encounter Summary ---
Author Organization [facility] Address [address] [place] [address] Care Team Providers Care Power Systems Engineer Name Role Phone [place] Peñaloza MD Primary Care Provider Unava Kristy Rush MD Primary Care Provider Un available [place] Peñaloza MD Primary Care Provider Unava ilTom Toscano Primary Care Provider [phone] Marisela Goodrich MD Primary Care Provider + Reason for Visit * Reason Onset Date Comments Medication 05/29/2017 Encounter Details Date Type Department Care Team Description 05/29/2017 Telephone Medicine/Pediatrics - [address] [phone] [place] Peñaloza MD Medication Social History Tobacco [...] medication (B12) because she now lives in [place] (in process of moving back to [place], no date given). Is also requesting needle [...] she requested it. States she is behind [employer] and that she is an hour away. [...] Message left for patient to call back [phone] re: question provider of syringes she needs [...] filedocumented in this encounter Care Teams Power Systems Engineer Relationship Specialty Start Date End Date [place] Peñaloza MD PCP - General 03/26/10 07/24/20 Kristy Castrejon MD PCP - General Internal Medicine 07/25/20 1 [place] Peñaloza MD PCP - General Internal Medicine 11/21/20 05/13/22 Tom White [address] [place] [address] PCP - General Internal Medicine 05/14/22 10/06/22 Marisela Goodrich MD [address] [place] [address] PCP - General Internal Medicine 10/07/22 documented as of this encounter
--- OUTSIDE RECORDS SUMMARY | 2025-04-02 09:53 | XMS_ITS | Encounter Summary ---
Author Organization [facility] Address [address] [place] [address] Care Team Providers Care Regional Sales Leader Name Role Phone [place] Peñaloza MD Primary Care Provider Unava Kristy Rush MD Primary Care Provider Un available [place] Peñaloza MD Primary Care Provider Unava ilTom Toscano Primary Care Provider [phone] Marisela Goodrich MD Primary Care Provider + Encounter Details Date Type Department Care Team Description 09/18/2015 Pt. Non Urgent Medic al Question Medicine/Pediatrics - [address] [phone] Milagros Ríos FNP Social History Tobacco Use [...] on filedocumented in this encounter Care Teams Regional Sales Leader Relationship Specialty Start Date End Date [place] Peñaloza MD PCP - General 03/26/10 07/24/20 Kristy Castrejon MD PCP - General Internal Medicine 07/25/20 1 [place] Peñaloza MD PCP - General Internal Medicine 11/21/20 05/13/22 Tom White [address] [place] [address] PCP - General Internal Medicine 05/14/22 10/06/22 Marisela Goodrich MD [address] [place] [address] PCP - General Internal Medicine 10/07/22 documented as of this encounter
--- OUTSIDE RECORDS SUMMARY | 2025-04-02 09:53 | XMS_ITS | Encounter Summary ---
Author Organization [facility] Address [address] [place] [address] Care Team Providers Care Content Designer Name Role Phone [place] Peñaloza MD Primary Care Provider Unava Kristy Rush MD Primary Care Provider Un available [place] Peñaloza MD Primary Care Provider Unava Tom Booker Primary Care Provider [phone] Marisela Goodrich MD Primary Care Provider + Encounter Details Date Type Department Care Team Description 10/06/2016 [facility] Medical Records [address] [place] [address] Social History Tobacco Use Types Packs/Day Years [...] on filedocumented in this encounter Care Teams Content Designer Relationship Specialty Start Date End Date [place] Peñaloza MD PCP - General 03/26/10 07/24/20 Kristy Castrejon MD PCP - General Internal Medicine 07/25/20 1 [place] Peñaloza MD PCP - General Internal Medicine 11/21/20 05/13/22 Tom White [address] [place] [address] PCP - General Internal Medicine 05/14/22 10/06/22 Marisela Goodrich MD [address] [place] [address] PCP - General Internal Medicine 10/07/22 documented as of this encounter
--- OUTSIDE RECORDS SUMMARY | 2025-04-02 09:53 | XMS_ITS | Encounter Summary ---
Author Organization [facility] Address [address] [place] [address] Care Team Providers Care Academic Program Specialist Name Role Phone [place] Peñaloza MD Primary Care Provider Unava Kristy Rush MD Primary Care Provider Un available [place] Peñaloza MD Primary Care Provider Unava Tom Booker Primary Care Provider [phone] Marisela Goodrich MD Primary Care Provider + Encounter Details Date Type Department Care Team Description 04/09/2018 Hospital Medical Records [address] [place] [id number] Ayesha Weaver MD Social History Tobacco Use [...] on filedocumented in this encounter Care Teams Academic Program Specialist Relationship Specialty Start Date End Date [place] Peñaloza MD PCP - General 03/26/10 07/24/20 Kristy Castrejon MD PCP - General Internal Medicine 07/25/20 1 [place] Peñaloza MD PCP - General Internal Medicine 11/21/20 05/13/22 Tom White [address] [place] [address] PCP - General Internal Medicine 05/14/22 10/06/22 Marisela Goodrich MD [address] [place] [address] PCP - General Internal Medicine 10/07/22 documented as of this encounter
--- OUTSIDE RECORDS SUMMARY | 2025-04-02 09:53 | XMS_ITS | Encounter Summary ---
Author Organization [facility] Address [address] [place] [address] Care Team Providers Care Manager Fleet Name Role Phone Alexandria Peñaloza MD Primary Care Provider Unava Kristy Rush MD Primary Care Provider Un available Alexandria Peñaloza MD Primary Care Provider Unava Tom Booker Primary Care Provider [phone] Marisela Goodrich MD Primary Care Provider + Encounter Details Date Type Department Care Team Description 09/01/2015 Orders Only Medicine/Pediatrics - [address] [phone] Milagros Ríos FNP Fibromyalgia (Primary Dx); Epilepsy [...] - 20 mm/hr 09/29/2015 6:47 PM EST [facility] 09/29/2015 4:24 PM EST 09/29/2015 4:24 PM EST Mil[facility]ros [facility] Performing Organization Address [facility] Number [address] * (ABNORMAL) 25 HYDROXY INCLUDES FRACTIONS IF PERFORMED (09/29/2015 4:24 PM EST) Pathologist [facility] 25-HYDROXY VITAMIN D TOTAL 21(L) 30 - 80 ng/ml 10/02/2015 1:20 PM EST [facility] Comment: Vitamin D Reference Ranges ??Deficiency: ? <20 ng/mL ??Insufficiency: ?20-29 ng/mL ??Optimal: ?30-80 ng/mL ??High: ? >80 ng/mL 09/29/2015 4:24 PM EST 09/29/2015 4:24 PM EST Milagros [facility] Performing Organization Address [facility] de Phone Number [address] * THYROID PROFILE W/TSH (09/29/2015 4:24 PM EST) Pathologist [facility] TSH CASCADE 2.00 0.40 - 4.00 uIU/ml 09/29/2015 6:18 PM EST [facility] 09/29/2015 4:24 PM EST 09/29/2015 4:24 PM EST Milagros [facility] Performing Organization Address [facility] Co de Phone Number [address] * (ABNORMAL) AUTOMATED HEMOGRAM PLATELET COUNT (09/29/2015 4:24 PM EST) WBC 9.7 4.8 - 10.8 x10-3 09/29/2015 5:39 PM EST [facility] RBC 4.9(H) 3.8 - 4.8 x10-6 09/29/2015 5:39 PM EST [facility] HGB 13.8 11.5 - 16.0 g/dl 09/29/2015 5:39 PM EST [facility] HCT 42.0 35 - 47 % 09/29/2015 5:39 PM [facility] MCV 85.5 79 - 98 fl 09/29/2015 5:39 PM EST [facility] MCH 28.1 27 - 32 pg 09/29/2015 5:39 PM EST [facility] MCHC 32.9 32 - 37 g/dl 09/29/2015 5:39 PM EST [facility] RDW 13.7 11 - 15 % 09/29/2015 5:39 PM [facility] PLT COUNT 365 130 - 400 x10-3 09/29/2015 5:39 PM [facility] MEAN PLATELET VOLUME 9.9 7 - 11 fl 09/29/2015 5:39 PM [facility] 09/29/2015 4:24 PM EST 09/29/2015 4:24 PM EST Milagros [facility]ZMAN [facility] Performing Organization Address City/[facility] Co de Phone Number [address] * HEMOGLOBIN A1C (09/29/2015 4:24 PM EST) Glycosylated Hemoglobin A1C 5.7 4.0 - 6.0 % 09/29/2015 5:58 PM [facility] Comment: HbA1C VALUES MAY NOT ACCURATELY REFLECT MEAN BLOOD GLUCOSE IN PATIENTS WITH HEMOGLOBIN VARIANTS SUCH HbF, HbS. 09/29/2015 4:24 PM EST 09/29/2015 4:24 PM EST Milagros ALMANZ[facility] Performing Organization Address [facility] Co de Phone Number [address] * FOLIC ACID (09/29/2015 4:24 PM EST) FOLATE 10.9 2.8 - 17.0 ng/ml 09/29/2015 7:59 PM EST [facility] 09/29/2015 4:24 PM EST 09/29/2015 4:24 PM EST Milagros ALMANZAP [facility] * VITAMIN B-12, ASSAY (09/29/2015 4:24 PM EST) Pathologist [facility] VITAMIN B12 582 211 - 946 pg/mL 09/29/2015 6:18 PM EST [facility] 09/29/2015 4:2 4 PM EST 09/29/2015 4:24 PM EST Milagros Ríos RAILROAD CAR CLEANING SUPERVISOR LAB Performing Organization Address City/[facility]/ZIP Co de Phone Number [address] * (ABNORMAL) COMPREHENSIVE METABOLIC PANEL (09/29/2015 4:24 PM EST) [facility] GLUCOSE 89 70 - 100 mg/dL 09/29/2015 6:18 PM [facility] Comment: Reference range applicable to fasting specimens only Based on recommendations from the ADA and AACE, the fasting glucose reference range has been changed to 70-100 mg/dL. ??This change is effective April 02, 2010 BUN 13 5 - 25 mg/dL 09/29/2015 6:18 PM [facility] CREAT 0.7 0.7 - 1.5 mg/dL 09/29/2015 6:18 PM [facility] BUN/CREAT RATIO 18.6 6.0 - 20.0 09/29/2015 6:18 PM [facility] GFR > 60 >60 09/29/2015 6:18 PM [facility] Comment: If patient is -[place], multiply result by 1.21 Chronic Kidney Disease: [...] 1.1 - 2.3 09/29/2015 6:18 PM EST [facility] BILI,TOTAL 0.2 0.0 - 1.2 mg/dL 09/29/2015 6:18 PM EST [facility] AST (SGOT) 19 10 - 42 U/L 09/29/2015 6:18 PM EST [facility] ALT( SGPT) 18 10 - 60 U/L 09/29/2015 6:18 PM EST [facility] ALK PHOS 126(H) 42 - 121 U/L 09/29/2015 6:18 PM EST [facility] 09/29/2015 4:24 PM EST 09/29/2015 4:24 PM EST Milagros Ríos RAILROAD CAR CLEANING SUPERVISOR LAB Performing Organization Address City/State/[facility] Co de Phone Number [facility] [address] [facility] documented in this encounter Visit Diagnoses Diagnosis Fibromyalgia- Primary Mylagia and myositis, unspecified Epilepsy without status epilepticus, not intractable (HCC) Unspecified epilepsy without mention of intractable epilepsy PCOS (polycystic ovarian syndrome) Polycystic ovaries Morbid obesity (HCC) Morbid obesity Chronic diarrhea Diarrhea documented in this encounter Care Teams Manager Fleet Relationship Specialty Start Date End Date Alexandria Peñaloza MD PCP - General 03/26/10 07/24/20 Kristy Castrejon MD PCP - General Internal Medicine 07/25/20 1 Alexandria Peñaloza MD PCP - General Internal Medicine 11/21/20 05/13/22 Tom White [address] [place], [place] [id number] PCP - General Internal Medicine 05/14/22 10/06/22 Marisela Goodrich MD [address] [place] [address] PCP - General Internal Medicine 10/07/22 documented as of this encounter
--- OUTSIDE RECORDS SUMMARY | 2025-04-02 09:53 | XMS_ITS | Encounter Summary ---
Author Organization [facility] Address [address] [place] [address] Care Team Providers Care Recycling Program Manager Name Role Phone Tom White Primary Care Provider [phone] Marisela Goodrich MD Primary Care Provider + Reason for Visit * Reason Onset Date Comments Prior Authorization 06/26/2022 Encounter Details Date Type Department Care Team Description 06/26/2022 Telephone Medicine/Pediatrics - [address] [address] Tatum Thomas PA-C Prior Authorization Social History [...] My Meds request: Yes -- [place] Code [id number] Name of Medication pregabalin (LYRICA) Dose of Medication 75 MG capsule What is the RX # from the faxed refill? How does patient take this med? TAKE 1 CAPSULE BY MOUTH TWICE A DAY What Pharmacy did the fax come from: [facility] Pharmacy fax #: [phone] [employer] Party Information from fax: What Prescription Plan does the patient have? [facility] BIN/PCN if applicable: Cardholder ID: Person Code: Relationship Code: Help desk phone: documented in this encounter Plan of Treatment Not on file documented as of this encounter Visit Diagnoses Not on filedocumented in this encounter Care Teams Recycling Program Manager Relationship Specialty Start Date End Date Tom White [address] [place] [address] PCP - General Internal Medicine 05/14/22 10/06/22 Marisela Goodrich MD [address] [place] [address] PCP - General Internal Medicine 10/07/22 documented as of this encounter
--- OUTSIDE RECORDS SUMMARY | 2025-04-02 09:53 | XMS_ITS | Encounter Summary ---
Author Organization [facility] Address [address] [place] [address] Care Team Providers Care Inspector Bullet Slugs Name Role Phone Alexandria Peñaloza MD Primary Care Provider UnaKrisyt Negro MD Primary Care Provider Un available Alexandria Peñaloza MD Primary Care Provider Soniava Tom Booker Primary Care Provider [phone] Marisela Goodrich MD Primary Care Provider + Encounter Details Date Type Department Care Team Description 10/16/2011 Altitude Chamber Technician Report Medical Records [address] [place] [address] Mushtaq Cerda MD Social History Tobacco Use [...] on filedocumented in this encounter Care Teams Inspector Bullet Slugs Relationship Specialty Start Date End Date Alexandria Peñaloza MD PCP - General 03/26/10 07/24/20 Kristy Castrejon MD PCP - General Internal Medicine 07/25/20 1 Alexandria Peñaloza MD PCP - General Internal Medicine 11/21/20 05/13/22 Tom White [address] [place] [address] PCP - General Internal Medicine 05/14/22 10/06/22 Marisela Goodrich MD [address] [place] [address] PCP - General Internal Medicine 10/07/22 documented as of this encounter
--- OUTSIDE RECORDS SUMMARY | 2025-04-02 09:53 | XMS_ITS | Encounter Summary ---
Author Organization [facility] Address [address] [place] [address] Care Team Providers Care Call Or Contact Centre Team Leader Name Role Phone Tom White Primary Care Provider [phone] Marisela Goodrich MD Primary Care Provider + Encounter Details Date Type Department Care Team Description 07/10/2022 Pt. Non Urgent Medic al Question Medicine/Pediatrics - [address] [address] Tatum Thomas PA-C Social History Tobacco Use [...] M.A. - 07/10/2022 2:38 PM EDTFrom: Sandy Max To: Adry Thomas Sent: 07/10/2022 1:13 PM EDT Subject: Regarding my referral to assistant sales center manager My medical records have still not been sent to Prashant Slater and I cannot make a appointment with him until my medical records are sent to him. Could you please take care of that? Thank you documented in this encounter Plan of Treatment Not on file documented as of this encounter Visit Diagnoses Not on filedocumented in this encounter Care Teams Call Or Contact Centre Team Leader Relationship Specialty Start Date End Date Tom White [address] [place] [address] PCP - General Internal Medicine 05/14/22 10/06/22 Marisela Goodrich MD [address] [place] [address] PCP - General Internal Medicine 10/07/22 documented as of this encounter
--- OUTSIDE RECORDS SUMMARY | 2025-04-02 09:53 | XMS_ITS | Encounter Summary ---
Author Organization [facility] Address [address] [place] [address] Care Team Providers Care Lithographic Stripper Name Role Phone Alexandria Peñaloza MD Primary Care Provider Unava Kristy Rush MD Primary Care Provider Un available Alexandria Peñaloza MD Primary Care Provider Unava Tom Booker Primary Care Provider [phone] Marisela Goodrich MD Primary Care Provider + Encounter Details Date Type Department Care Team Description 10/22/2016 [facility] Medical Records [address] [place] [id number] Abstract, Provider Social History Tobacco Use Types [...] on filedocumented in this encounter Care Teams Lithographic Stripper Relationship Specialty Start Date End Date Alexandria Peñaloza MD PCP - General 03/26/10 07/24/20 Kristy Castrejon MD PCP - General Internal Medicine 07/25/20 1 Alexandria Peñaloza MD PCP - General Internal Medicine 11/21/20 05/13/22 Tom White [address] [place] [address] PCP - General Internal Medicine 05/14/22 10/06/22 Marisela Goodrich MD [address] [place] [address] PCP - General Internal Medicine 10/07/22 documented as of this encounter
--- OUTSIDE RECORDS SUMMARY | 2025-04-02 09:53 | XMS_ITS | Encounter Summary ---
Author Organization [facility] Address [address] [place] [address] Care Team Providers Care Microstrategy Developer Name Role Phone Alexandria Peñaloza MD Primary Care Provider Unava Kristy Rush MD Primary Care Provider Un available Alexandria Peñaloza MD Primary Care Provider Unava Tom Booker Primary Care Provider Marisela Goodrich MD Primary Care Provider + Encounter Details Date Type Department Care Team Description 10/02/2016 [facility] Medical Records [address] [place] [address] Sandy Harrington Social History Tobacco Use Types [...] on filedocumented in this encounter Care Teams Microstrategy Developer Relationship Specialty Start Date End Date Alexandria Peñaloza MD PCP - General 03/26/10 07/24/20 Kristy Castrejon MD PCP - General Internal Medicine 07/25/20 1 Alexandria Peñaloza MD PCP - General Internal Medicine 11/21/20 05/13/22 Tom White [address] [place] [address] PCP - General Internal Medicine 05/14/22 10/06/22 Marisela Goodrich MD [address] [place] [address] PCP - General Internal Medicine 10/07/22 documented as of this encounter
--- OUTSIDE RECORDS SUMMARY | 2025-04-02 09:53 | XMS_ITS | Encounter Summary ---
Author Organization [facility] Address [address] [place] [address] Care Team Providers Care Feeder Catcher Name Role Phone Alexandria Peñaloza MD Primary Care Provider Unava Kristy Rush MD Primary Care Provider Un available Alexandria Peñaloza MD Primary Care Provider Unava ilable Tom White Primary Care Provider [phone] Marisela Goodrich MD Primary Care Provider + Encounter Details Date Type Department Care Team Description 04/27/2018 Hospital Medical Records [address] [place] [address] Fran Adams [address] [place] [address], [address] [address] Social History Tobacco Use Types Packs/Day Years [...] on filedocumented in this encounter Care Teams Feeder Catcher Relationship Specialty Start Date End Date Alexandria Peñaloza MD PCP - General 03/26/10 07/24/20 Kristy Castrejon MD PCP - General Internal Medicine 07/25/20 Alexandria Peñaloza MD PCP - General Internal Medicine 11/21/20 05/13/22 Tom White [address] [place] [address] PCP - General Internal Medicine 05/14/22 10/06/22 Marisela Goodrich MD [address] [place] [address] PCP - General Internal Medicine 10/07/22 documented as of this encounter
--- OUTSIDE RECORDS SUMMARY | 2025-04-02 09:53 | XMS_ITS | Encounter Summary ---
Author Organization [facility] Address [address] [place] [address] Care Team Providers Care Smasher Hand Name Role Phone Alexandria Peñaloza MD Primary Care Provider Unava Kristy Rush MD Primary Care Provider Un available Alexandria Peñaloza MD Primary Care Provider Unava Tom Booker Primary Care Provider [phone] Marisela Goodrich MD Primary Care Provider + Encounter Details Date Type Department Care Team Description 06/04/2017 [facility] Medical Records [address] [place] [address] Abstract, Provider Social History Tobacco Use Types [...] on filedocumented in this encounter Care Teams Smasher Hand Relationship Specialty Start Date End Date Alexandria Peñaloza MD PCP - General 03/26/10 07/24/20 Kristy Castrejon MD PCP - General Internal Medicine 07/25/20 1 Alexandria Peñaloza MD PCP - General Internal Medicine 11/21/20 05/13/22 Tom White [address] [place] [address] PCP - General Internal Medicine 05/14/22 10/06/22 Marisela Goodrich MD [address] [place] [address] PCP - General Internal Medicine 10/07/22 documented as of this encounter
--- OUTSIDE RECORDS SUMMARY | 2025-04-02 09:53 | XMS_ITS | Encounter Summary ---
Author Organization [facility] Address [address] [place] [address] Care Team Providers Care Television Cable Installer Name Role Phone Alexandria Peñaloza MD Primary Care Provider Unava Kristy Rush MD Primary Care Provider Un available Alexandria Peñaloza MD Primary Care Provider Unava Tom Booker Primary Care Provider [phone] Marisela Goodrich MD Primary Care Provider + Encounter Details Date Type Department Care Team Description 07/17/2017 [facility] Medical Records [address] [place] [address] Abstract, Provider Social History Tobacco Use Types [...] filedocumented in this encounter Care Teams Television Cable Installer Relationship Specialty Start Date End Date Alexandria Peñaloza MD PCP - General 03/26/10 07/24/20 Kristy Castrejon MD PCP - General Internal Medicine 07/25/20 1 Alexandria Peñaloza MD PCP - General Internal Medicine 11/21/20 05/13/22 Tom White [address] [place] [address] PCP - General Internal Medicine 05/14/22 10/06/22 Marisela Goodrich MD [address] [place] [address] PCP - General Internal Medicine 10/07/22 documented as of this encounter
--- OUTSIDE RECORDS SUMMARY | 2025-04-02 09:53 | XMS_ITS | Encounter Summary ---
Author Organization [facility] Address [address] [place] [address] Care Team Providers Care Hospital Liaison Name Role Phone Alexandria Peñaloza MD Primary Care Provider Unava Kristy Rush MD Primary Care Provider Un available Alexandria Peñaloza MD Primary Care Provider Unava ilTom Toscano Primary Care Provider [phone] Marisela Goodrich MD Primary Care Provider + Encounter Details Date Type Department Care Team Description 12/17/2011 Time Study Statistician Report Medical Records [address] [place] [address] Reji Hensley [address] [place] [address] Social History Tobacco Use Types Packs/Day Years [...] filedocumented in this encounter Care Teams Hospital Liaison Relationship Specialty Start Date End Date Alexandria Peñaloza MD PCP - General 03/26/10 07/24/20 Kristy Castrejon MD PCP - General Internal Medicine 07/25/20 1 Alexandria Peñaloza MD PCP - General Internal Medicine 11/21/20 05/13/22 Tom White [address] [place] [address] PCP - General Internal Medicine 05/14/22 10/06/22 Marisela Goodrich MD [address] [place] [address] PCP - General Internal Medicine 10/07/22 documented as of this encounter
--- OUTSIDE RECORDS SUMMARY | 2025-04-02 09:53 | XMS_ITS | Encounter Summary ---
Author Organization [facility] Address [address] [place] [address] Care Team Providers Care Oceanographer Geological Name Role Phone Kristy Castrejon MD Primary Care Provider Un available Alexandria Peñaloza MD Primary Care Provider Soniava Tom Booker Primary Care Provider [phone] Marisela Goodrich MD Primary Care Provider + Encounter Details Date Type Department Care Team Description 08/25/2020 Refill Medicine/Pediatrics - [address] [address] India Feldman PA-C Social History Tobacco Use [...] encounter Miscellaneous Notes * Telephone Encounter - Angéliac Van M.A. - 08/25/2020 9:08 AM EDT Last OV 07/27/20 documented in this encounter Plan of Treatment Not on file documented as of this encounter Visit Diagnoses Not on filedocumented in this encounter Care Teams Oceanographer Geological Relationship Specialty Start Date End Date Kristy Castrejon MD PCP - General Internal Medicine 07/25/20 Alexandria Peñaloza MD PCP - General Internal Medicine 11/21/20 05/13/22 Tom White [address] [place] [address] PCP - General Internal Medicine 05/14/22 10/06/22 Marisela Goodrich MD [address] [place] [address] PCP - General Internal Medicine 10/07/22 documented as of this encounter
--- OUTSIDE RECORDS SUMMARY | 2025-04-02 09:53 | XMS_ITS | Encounter Summary ---
Author Organization [facility] Address [address] [place] [address] Care Team Providers Care Telegraphic Instrument Supervisor Name Role Phone Alexandria Peñaloza MD Primary Care Provider Unava Kristy Rush MD Primary Care Provider Un available Alexandria Peñaloza MD Primary Care Provider Unava Tom Booker Primary Care Provider [phone] Marisela Goodrich MD Primary Care Provider + Reason for Visit * Reason Onset Date Comments REFERRAL 07/31/2017 Encounter Details Date Type Department Care Team Description 07/31/2017 Telephone Physiatry - [address] [address] Brad Coombs DO REFERRAL Social History Tobacco [...] with the patient and her MRI at [facility] is still not scheduled. Patient also states she might go to [facility] for this referral. Patient will get back to us if she wants to schedule an appointment documented in this encounter Plan of Treatment Not on file documented as of this encounter Visit Diagnoses Not on filedocumented in this encounter Care Teams Telegraphic Instrument Supervisor Relationship Specialty Start Date End Date Alexandria Peñaloza MD PCP - General 03/26/10 07/24/20 Kristy Castrejon MD PCP - General Internal Medicine 07/25/20 1 Alexandria Peñaloza MD PCP - General Internal Medicine 11/21/20 05/13/22 Tom White [address] [place] [address] PCP - General Internal Medicine 05/14/22 10/06/22 Marisela Goodrich MD [address] [place] [address] PCP - General Internal Medicine 10/07/22 documented as of this encounter
--- OUTSIDE RECORDS SUMMARY | 2025-04-02 09:53 | XMS_ITS | Encounter Summary ---
Author Organization [facility] Address [address] [place] [address] Care Team Providers Care Digital Marketing Project Manager Name Role Phone Tom White Primary Care Provider [phone] Marisela Goodrich MD Primary Care Provider + Reason for Visit * Reason Onset Date Comments Mychart Rx Refill 09/05/2022 Encounter Details Date Type Department Care Team Description 09/05/2022 Refill Medicine/Pediatrics - [address] [phone] Aye Ortega PA-C [address] [place] [address] Mychart Rx Refill Social History Tobacco Use [...] filedocumented in this encounter Care Teams Digital Marketing Project Manager Relationship Specialty Start Date End Date Tom White [address] [place] [address] PCP - General Internal Medicine 05/14/22 10/06/22 Marisela Godorich MD [address] [place] [address] PCP - General Internal Medicine 10/07/22 documented as of this encounter
--- OUTSIDE RECORDS SUMMARY | 2025-04-02 09:53 | XMS_ITS | Encounter Summary ---
Author Organization [facility] Address [address] [place] [address] Care Team Providers Care Mold Technician Name Role Phone Alexandria Peñaloza MD Primary Care Provider Kristy Milan MD Primary Care Provider Un available Alexandria Peñaloza MD Primary Care Provider Soniava Tom Booker Primary Care Provider Marisela Goodrich MD Primary Care Provider + Encounter Details Date Type Department Care Team Description 04/06/2018 [facility] Medical Records [address] [place] [address] Social History Tobacco Use Types Packs/Day Years [...] filedocumented in this encounter Care Teams Mold Technician Relationship Specialty Start Date End Date Alexandria Peñaloza MD PCP - General 03/26/10 07/24/20 Kristy Castrejon MD PCP - General Internal Medicine 07/25/20 1 Alexandria Peñaloza MD PCP - General Internal Medicine 11/21/20 05/13/22 Tom White [address] [place] [address] PCP - General Internal Medicine 05/14/22 10/06/22 Marisela Goodrich MD [address] [place] [address] PCP - General Internal Medicine 10/07/22 documented as of this encounter
--- OUTSIDE RECORDS SUMMARY | 2025-04-02 09:53 | XMS_ITS | Encounter Summary ---
Author Organization [facility] Address [address] [place] [address] Care Team Providers Care Barrel Polisher Inside Name Role Phone Alexandria Peñaloza MD Primary Care Provider Unava Kristy Rush MD Primary Care Provider Un available Alexandria Peñaloza MD Primary Care Provider Unava ilable Tom White Primary Care Provider [phone] Marisela Goodrich MD Primary Care Provider + Reason for Visit * Reason Onset Date Comments Appointment Cancelled 10/02/2011 Encounter Details Date Type Department Care Team Description 10/02/2011 Telephone General Surgery [address] [place] [address] Prashant Ortiz MD [address] [place] [address] [phone] Appointment Cancelled Social History Tobacco Use Types [...] PM EST Patient cancled her appointment through [facility] stating she will call to reschedule this, [...] filedocumented in this encounter Care Teams Barrel Polisher Inside Relationship Specialty Start Date End Date Alexandria Peñaloza MD PCP - General 03/26/10 07/24/20 Kristy Castrejon MD PCP - General Internal Medicine 07/25/20 1 Alexandria Peñaloza MD PCP - General Internal Medicine 11/21/20 05/13/22 Tom White [address] [place] [address] PCP - General Internal Medicine 05/14/22 10/06/22 Marisela Goodrich MD [address] [place] [address] PCP - General Internal Medicine 10/07/22 documented as of this encounter
--- OUTSIDE RECORDS SUMMARY | 2025-04-02 09:53 | XMS_ITS | Encounter Summary ---
Author Organization [facility] Address [address] [place] [address] Care Team Providers Care As400 Analyst Name Role Phone Tom White Primary Care Provider [phone] Marisela Goodrich MD Primary Care Provider + Reason for Visit * Reason Comments E-prescribe Rx Request Encounter Details Date Type Department Care Team Description 05/19/2022 Refill Medicine/Pediatrics - [address] [address] Alexandria Peñaloza MD E-prescribe Rx Request Social [...] N/A Patients current insurance carrier is: Payor: [employer] FFS / Plan: [employer] ALLIANCE / Product Type: MEDICAID RISK documented in this encounter Plan of Treatment Not on file documented as of this encounter Visit Diagnoses Diagnosis Acute nasopharyngitis Acute nasopharyngitis (common cold) Exercise-induced asthma Exercise induced bronchospasm documented in this encounter Care Teams As400 Analyst Relationship Specialty Start Date End Date Tom White [address] [place] [address] [phone] PCP - General Internal Medicine 05/14/22 10/06/22 Marisela Goodrich MD [address] [place], [place] [phone] PCP - General Internal Medicine 10/07/22 documented as of this encounter
--- OUTSIDE RECORDS SUMMARY | 2025-04-02 09:53 | XMS_ITS | Encounter Summary ---
Author Organization [facility] Address [address] [place] [address] Care Team Providers Care Resort Keeper Name Role Phone Alexandria Peñaloza MD Primary Care Provider Unava Kristy Rush MD Primary Care Provider Un available Alexandria Peñaloza MD Primary Care Provider Unava Tom Booker Primary Care Provider Marisela Goodrich MD Primary Care Provider + Encounter Details Date Type Department Care Team Description 07/22/2018 Hospital Medical Records [address] [place] [address] Reji Joshi MD Social History Tobacco Use [...] on filedocumented in this encounter Care Teams Resort Keeper Relationship Specialty Start Date End Date Alexandria Peñaloza MD PCP - General 03/26/10 07/24/20 Kristy Castrejon MD PCP - General Internal Medicine 07/25/20 1 Alexandria Peñaloza MD PCP - General Internal Medicine 11/21/20 05/13/22 Tom White [address] [place] [address] PCP - General Internal Medicine 05/14/22 10/06/22 Marisela Goodrich MD [address] [place] [address] PCP - General Internal Medicine 10/07/22 documented as of this encounter
--- OUTSIDE RECORDS SUMMARY | 2025-04-02 09:53 | XMS_ITS | Encounter Summary ---
Author Organization [facility] Address [address] [place] [address] Care Team Providers Care Wool Washer Name Role Phone Alexandria Peñaloza MD Primary Care Provider Unava Kristy Rush MD Primary Care Provider Un available Alexandria Peñaloza MD Primary Care Provider Unava Tom Booker Primary Care Provider [phone] Marisela Goodrich MD Primary Care Provider + Encounter Details Date Type Department Care Team Description 12/31/2011 [facility] [address] [place] [address] Md Adis Social History Tobacco Use Types [...] on filedocumented in this encounter Care Teams Wool Washer Relationship Specialty Start Date End Date Alexandria Peñaloza MD PCP - General 03/26/10 07/24/20 Kristy Castrejon MD PCP - General Internal Medicine 07/25/20 1 Alexandria Peñaloza MD PCP - General Internal Medicine 11/21/20 05/13/22 Tom White [address] [place] [address] PCP - General Internal Medicine 05/14/22 10/06/22 Marisela Goodrich MD [address] [place] [address] PCP - General Internal Medicine 10/07/22 documented as of this encounter
--- OUTSIDE RECORDS SUMMARY | 2025-04-02 09:53 | XMS_ITS | Encounter Summary ---
Author Organization [facility] Address [address] [place] [address] Care Team Providers Care Waitangi Tribunal Member Name Role Phone Alexandria Peñaloza MD Primary Care Provider Unava Kristy Rush MD Primary Care Provider Un available Alexandria Peñaloza MD Primary Care Provider Unava Tom Booker Primary Care Provider [phone] Marisela Goodrich MD Primary Care Provider + Encounter Details Date Type Department Care Team Description 08/31/2011 [facility] [address] [place] [address] Md Adis Social History Tobacco Use Types [...] on filedocumented in this encounter Care Teams Waitangi Tribunal Member Relationship Specialty Start Date End Date Alexandria Peñaloza MD PCP - General 03/26/10 07/24/20 Kristy Castrejon MD PCP - General Internal Medicine 07/25/20 1 Alexandria Peñaloza MD PCP - General Internal Medicine 11/21/20 05/13/22 Tom Wihte [address] [place] [address] PCP - General Internal Medicine 05/14/22 10/06/22 Marisela Goodrich MD [address] [place] [address] PCP - General Internal Medicine 10/07/22 documented as of this encounter
--- OUTSIDE RECORDS SUMMARY | 2025-04-02 09:53 | XMS_ITS | Encounter Summary ---
Author Organization [facility] Address [address] [place] [address] Care Team Providers Care Wireless Cellular Technician Name Role Phone Alexandria Peñaloza MD Primary Care Provider Unava Kristy Rush MD Primary Care Provider Un available Alexandria Peñaloza MD Primary Care Provider Soniava Tom Booker Primary Care Provider [phone] Marisela Goodrich MD Primary Care Provider + Encounter Details Date Type Department Care Team Description 10/22/2019 Release of Information Medical Records [address] [place] [address] Abstract, Provider Social History Tobacco Use Types [...] on filedocumented in this encounter Care Teams Wireless Cellular Technician Relationship Specialty Start Date End Date Alexandria Peñaloza MD PCP - General 03/26/10 07/24/20 Kristy Castrejon MD PCP - General Internal Medicine 07/25/20 1 Alexandria Peñaloza MD PCP - General Internal Medicine 11/21/20 05/13/22 Tom White [address] [place] [address] PCP - General Internal Medicine 05/14/22 10/06/22 Marisela Goodrich MD [address] [place] [address] PCP - General Internal Medicine 10/07/22 documented as of this encounter
--- OUTSIDE RECORDS SUMMARY | 2025-04-02 09:53 | XMS_ITS | Encounter Summary ---
Author Organization [facility] Address [address] [place] [address] Care Team Providers Care Wallpaper Printer Name Role Phone Alexandria Peñaloza MD Primary Care Provider Tom Jane Primary Care Provider [phone] Marisela Goodrich MD Primary Care Provider + Encounter Details Date Type Department Care Team Description 12/17/2021 Orders Only Medical Records [address] [place] [address] Aye Ortega, ANIA [address] [place] [address] Social History Tobacco Use Types Packs/Day Years [...] on filedocumented in this encounter Care Teams Wallpaper Printer Relationship Specialty Start Date End Date Alexandria Peñaloza MD PCP - General Internal Medicine 11/21/20 05/13/22 Tom White [address] [place] [address] PCP - General Internal Medicine 05/14/22 10/06/22 Marisela Goodrich MD [address] [place] [address] PCP - General Internal Medicine 10/07/22 documented as of this encounter
--- OUTSIDE RECORDS SUMMARY | 2025-04-02 09:53 | XMS_ITS | Encounter Summary ---
Author Organization [facility] Address [address] [place] [address] Care Team Providers Care Stone Polisher Name Role Phone Alexandria Peñaloza MD Primary Care Provider Unava Kristy Rush MD Primary Care Provider Un available Alexandria Peñaloza MD Primary Care Provider Unava Tom Booker Primary Care Provider [phone] Marisela Goodrich MD Primary Care Provider + Encounter Details Date Type Department Care Team Description 09/12/2019 Pt. Non Urgent Medical Question HAND LEATHER TRIMMER - [address] [address] [place], ANUM [address] [place] [address] Social History Tobacco Use Types [...] filedocumented in this encounter Care Teams Stone Polisher Relationship Specialty Start Date End Date Alexandria Peñaloza MD PCP - General 03/26/10 07/24/20 Kristy Castrejon MD PCP - General Internal Medicine 07/25/20 1 Alexandria Peñaloza MD PCP - General Internal Medicine 11/21/20 05/13/22 Tom White [address] [place] [address] PCP - General Internal Medicine 05/14/22 10/06/22 Marisela Goodrich MD [address] [place] [address] PCP - General Internal Medicine 10/07/22 documented as of this encounter
--- OUTSIDE RECORDS SUMMARY | 2025-04-02 09:53 | XMS_ITS | Encounter Summary ---
Author Organization [facility] [place] [facility] Address [address] [place] [address] Care Team Providers Care Timber Sprinkler Name Role Phone Alexandria Peñaloza MD Primary Care Provider UnaKristy Negro MD Primary Care Provider Un available Alexandria Peñaloza MD Primary Care Provider Unava Tom Bookre Primary Care Provider [phone] Marisela Goodrich MD Primary Care Provider + Encounter Details Date Type Department Care Team Description 02/15/2020 Walk In Clinic Visit Medical Records [address] [place] [address] Reji Hensley [address] [place] [address] Social History Tobacco Use Types Packs/Day Years [...] filedocumented in this encounter Care Teams Timber Sprinkler Relationship Specialty Start Date End Date Alexandria Peñaloza MD PCP - General 03/26/10 07/24/20 Kristy Castrejon MD PCP - General Internal Medicine 07/25/20 1 Alexandria Peñaloza MD PCP - General Internal Medicine 11/21/20 05/13/22 Tom White [address] [place] [address] PCP - General Internal Medicine 05/14/22 10/06/22 Marisela Goodrich MD [address] [place] [address] PCP - General Internal Medicine 10/07/22 documented as of this encounter
--- OUTSIDE RECORDS SUMMARY | 2025-04-02 09:53 | XMS_ITS | Encounter Summary ---
Author Organization [facility] Address [address] [place] [address] Care Team Providers Care Formal Waiter/Waitress Name Role Phone Tom White Primary Care Provider [phone] Marisela Goodrich MD Primary Care Provider + Encounter Details Date Type Department Care Team Description 09/05/2022 Refill Medicine/Pediatrics - [address] [address] Tatum Thomas PA-C Social History Tobacco Use [...] 150 Mg Tablet 60 30 Wi Krystian [id number] [facility] (1450) 0/5 1.20 LME [place] 08/19/2022 04/01/2022 1 Lorazepam 2 Mg Tablet 30 30 Jalyn Woj [id number] [facility] (1450) 4/4 2.00 LME [place] 08/05/2022 06/07/2022 1 Lacosamide 150 Mg Tablet 60 30 Wi Krystian [id number] [facility] (1450) 2/5 1.20 L[place] 08/01/2022 05/22/2022 1 Pregabalin 75 Mg Capsule 60 30 Al Fru [id number] [facility] (1450) 2/2 1.00 L[place] 07/16/2022 07/16/2022 1 Clonazepam 0.5 Mg Tablet 15 30 Sh Dev [id number] [facility] (1450) 0/0 0.50 [place] 07/12/2022 04/01/2022 1 Lorazepam 2 Mg Tablet 30 30 Jalyn Woj [id number] [facility] (1450) 3/4 2.00 [place] 07/06/2022 06/07/2022 1 Lacosamide 150 Mg Tablet 60 30 Wi Krystian [id number] [facility] (1450) 1/5 1.20 L[place] 06/27/2022 05/22/2022 1 Pregabalin 75 Mg Capsule 60 30 Al Fru [id number] [facility] (1450) 1/2 1.00 L[place] 06/11/2022 04/01/2022 1 Lorazepam 2 Mg Tablet 30 30 Jalyn Woj [id number] [facility] (1450) 2/4 2.00 LME [place] 06/07/2022 06/07/2022 1 Lacosamide 150 Mg Tablet 60 30 Wi Krystian [id number] [facility] (1450) 0/5 1.20 LME Medicaid [place] 05/22/2022 05/22/2022 1 Oxycodone-Acetaminophen 5-325 14 14 Al Fru [id number] [facility] (1450) 0/0 7.50 MME Medicaid [place] 05/22/2022 05/22/2022 1 Pregabalin 75 Mg Capsule 60 30 Al Fru [id number] [facility] (1450) 0/2 1.00 LME [place] 05/10/2022 04/01/2022 1 Lorazepam 2 Mg Tablet 30 30 Jalyn Woj [id number] [facility] (1450) 1/ 2.00 LME [place] 05/05/2022 04/24/2022 1 Clonazepam 0.5 Mg Tablet 15 30 Sh Dev [id number] [facility] (1450) 0/0 0.50 L[place] 05/03/2022 11/19/2021 1 Lacosamide 150 Mg Tablet 60 30 Jalyn Woj [id number] [facility] (1450) 03/21 1.20 LME [place] documented in this encounter Plan of Treatment Not on file documented as of this encounter Visit Diagnoses Not on filedocumented in this encounter Care Teams Formal Waiter/Waitress Relationship Specialty Start Date End Date Tom White [address] [place] [address] PCP - General Internal Medicine 05/14/22 10/06/22 Marisela Goodrich MD [address] [place] [address] PCP - General Internal Medicine 10/07/22 documented as of this encounter
--- OUTSIDE RECORDS SUMMARY | 2025-04-02 09:53 | XMS_ITS | Encounter Summary ---
Author Organization [facility] Address [address] [place] [address] Care Team Providers Care Film Crew Member Name Role Phone Tom White Primary Care Provider [phone] Marisela Goodrich MD Primary Care Provider + Reason for Visit * Reason Comments E-prescribe Rx Request Encounter Details Date Type Department Care Team Description 09/05/2022 Refill Medicine/Pediatrics - [address] [address] Tatum Thomas PA-C E-prescribe Rx Request Social [...] on filedocumented in this encounter Care Teams Film Crew Member Relationship Specialty Start Date End Date Tom White [address] [place] [address] PCP - General Internal Medicine 05/14/22 10/06/22 Marisela Goodrich MD [address] [place] [address] PCP - General Internal Medicine 10/07/22 documented as of this encounter
--- OUTSIDE RECORDS SUMMARY | 2025-04-02 09:53 | XMS_ITS | Encounter Summary ---
Author Organization [facility] Address [address] [place] [address] Care Team Providers Care Basin Finish Operator Tig Welder Name Role Phone Alexandria Peñaloza MD Primary Care Provider UnaKristy Negro MD Primary Care Provider Un available Alexandria Peñaloza MD Primary Care Provider Soniava Tom Booker Primary Care Provider [phone] Marisela Goodrich MD Primary Care Provider + Encounter Details Date Type Department Care Team Description 04/14/2018 [facility] Medical Records [address] [place] [address] Social History Tobacco Use Types Packs/Day Years [...] on filedocumented in this encounter Care Teams Basin Finish Operator Tig Welder Relationship Specialty Start Date End Date Alexandria Peñaloza MD PCP - General 03/26/10 07/24/20 Kristy Castrejon MD PCP - General Internal Medicine 07/25/20 1 Alexandria Peñaloza MD PCP - General Internal Medicine 11/21/20 05/13/22 Tom White [address] [place] [address] PCP - General Internal Medicine 05/14/22 10/06/22 Marisela Goodrich MD [address] [place] [address] PCP - General Internal Medicine 10/07/22 documented as of this encounter
--- OUTSIDE RECORDS SUMMARY | 2025-04-02 09:53 | XMS_ITS | Encounter Summary ---
Author Organization [facility] Address [address] [place] [address] Care Team Providers Care Electrician Radio Name Role Phone Alexandria Peñaloza MD Primary Care Provider Unava Kristy Rush MD Primary Care Provider Un available Alexandria Peñaloza MD Primary Care Provider Unava ilable Tom White Primary Care Provider [phone] Marisela Goodrich MD Primary Care Provider + Encounter Details Date Type Department Care Team Description 01/19/2016 Pt. Non Urgent Medic al Question Medicine/Pediatrics - [address] [phone] Sandy Villa PA-C Social History Tobacco Use [...] on filedocumented in this encounter Care Teams Electrician Radio Relationship Specialty Start Date End Date Alexandria Peñaloza MD PCP - General 03/26/10 07/24/20 Kristy Castrejon MD PCP - General Internal Medicine 07/25/20 1 Alexandria Peñaloza MD PCP - General Internal Medicine 11/21/20 05/13/22 Tom White [address] [place] [address] PCP - General Internal Medicine 05/14/22 10/06/22 Marisela Goodrich MD [address] [place] [address] PCP - General Internal Medicine 10/07/22 documented as of this encounter
--- OUTSIDE RECORDS SUMMARY | 2025-04-02 09:53 | XMS_ITS | Encounter Summary ---
Author Organization [facility] Address [address] [place] [address] Care Team Providers Care Wood Heel Fitter Machine Name Role Phone Alexandria Peñaloza MD Primary Care Provider Unava Kristy Rush MD Primary Care Provider Un available Alexandria Peñaloza MD Primary Care Provider Unava ilTom Toscano Primary Care Provider [phone] Marisela Goodrich MD Primary Care Provider + Encounter Details Date Type Department Care Team Description 10/05/2019 Telephone [employer] [id number] Robel Marks MD Social History Tobacco Use [...] salpingo-oophorectomy has been scheduled on 12/20/2019 at [facility] with Dr. Marks. Patient has been notified [...] aware of surgery date, is schedule for urology nurse pre op on 12/13/19, awaiting call back from [facility] to schedule pcp clearance to set surgery complete info * Telephone Encounter - Monse Mo - 10/21/2019 11:33 AM EST Offer pt a surgical date of 12/20/2019. Pt accepted. Will forward info to [facility]. AM * Telephone Encounter - Robel Marks MD - 10/05/2019 5:43 PM EST [employer] 10/05/2019 Patient's Name: Sandy Santana : 1985 Payor information: Payor: [facility] [employer] FFS / Plan: [facility] ALLIANCE / Product Type: MEDICAID RISK Allergies: [...] Anesthesia: general Stay: Outpatient in a bed Location:[facility] Internship Coordinator Needed? YES Time Needed: 3 hours Urgency: elective Medicaid Sterilization (within 30 days - 180 days) and/or Medicare HI-1 form signed, if needed? no Date signed? Patient has had a tubal ligation Medical Clearance? YES Pre Op TAG MAKER visit: YES Pap Needed at Pre Op [...] EST [facility]CH Comment: If patient is -Grenadian, multiply result by 1.21 Chronic Kidney Disease: [...] anemia documented in this encounter Care Teams Wood Heel Fitter Machine Relationship Specialty Start Date End Date Alexandria Peñaloza MD PCP - General 03/26/10 07/24/20 Kristy Castrejon MD PCP - General Internal Medicine 07/25/20 1 Alexandria Peñaloza MD PCP - General Internal Medicine 11/21/20 05/13/22 oTm White [address] [place] [address] PCP - General Internal Medicine 05/14/22 10/06/22 Marisela Goodrich MD [address] [place] [address] PCP - General Internal Medicine 10/07/22 documented as of this encounter
--- OUTSIDE RECORDS SUMMARY | 2025-04-02 09:53 | XMS_ITS | Encounter Summary ---
Author Organization [facility] Address [address] [place] [address] Care Team Providers Care Linoleum Installer Name Role Phone Alexandria Peñaloza MD Primary Care Provider Unava Kristy Rush MD Primary Care Provider Un available Alexandria Peñaloza MD Primary Care Provider Unava ilTom Toscano Primary Care Provider Marisela Goodrich MD Primary Care Provider + Encounter Details Date Type Department Care Team Description 05/23/2011 Lineman A Class Report Medical Records [address] [place] [address] Reji Hensley [address] [place] [address] Social History Tobacco Use Types Packs/Day Years [...] on filedocumented in this encounter Care Teams Linoleum Installer Relationship Specialty Start Date End Date Alexandria Peñaloza MD PCP - General 03/26/10 07/24/20 Kristy Castrejon MD PCP - General Internal Medicine 07/25/20 1 Alexandria Peñaloza MD PCP - General Internal Medicine 11/21/20 05/13/22 Tom White [address] [place] [address] PCP - General Internal Medicine 05/14/22 10/06/22 Marisela Goodrich MD [address] [place] [address] PCP - General Internal Medicine 10/07/22 documented as of this encounter
--- OUTSIDE RECORDS SUMMARY | 2025-04-02 09:53 | XMS_ITS | Encounter Summary ---
Author Organization [facility] Address [address] [place] [address] Care Team Providers Care Sorting Supervisor Name Role Phone Alexandria Peñaloza MD Primary Care Provider Unava Kristy Rush MD Primary Care Provider Un available Alexandria Peñaloza MD Primary Care Provider Unava ilable Tom White Primary Care Provider [phone] Marisela Goodrich MD Primary Care Provider + Reason for Visit * Reason Onset Date Comments Call From Pharmacy 12/22/2019 Encounter Details Date Type Department Care Team Description 12/22/2019 Telephone [facility] - [address] [address] Robel Mares MD Call From Pharmacy Social [...] - 12/22/2019 11:44 AM EST pts pharmacy [facility] [place] states the pt is using [...] on filedocumented in this encounter Care Teams Sorting Supervisor Relationship Specialty Start Date End Date Alexandria Peñaloza MD PCP - General 03/26/10 07/24/20 Kristy Castrejon MD PCP - General Internal Medicine 07/25/20 1 Alexandria Peñaloza MD PCP - General Internal Medicine 11/21/20 05/13/22 Tom White [address] [place] [address] PCP - General Internal Medicine 05/14/22 10/06/22 Marisela Goodrich MD [address] [place] [address] PCP - General Internal Medicine 10/07/22 documented as of this encounter
--- OUTSIDE RECORDS SUMMARY | 2025-04-02 09:53 | XMS_ITS | Encounter Summary ---
Author Organization [facility] Address [address] [place] [address] Care Team Providers Care Director Of Litigation Name Role Phone Alexandria Peñaloza MD Primary Care Provider Unava Kristy Rush MD Primary Care Provider Un available Alexandria Peñaloza MD Primary Care Provider Unava ilTom Toscano Primary Care Provider [phone] Marisela Goodrich MD Primary Care Provider + Encounter Details Date Type Department Care Team Description 09/30/2016 Brake Lining Maker Report Medical Records [address] [place] [address] Stephen Reynolds MD Social History Tobacco Use [...] in this encounter Care Teams Director Of Litigation Relationship Specialty Start Date End Date Alexandria Peñaloza MD PCP - General 03/26/10 07/24/20 Kristy Castrejon MD PCP - General Internal Medicine 07/25/20 1 Alexandria Peñaloza MD PCP - General Internal Medicine 11/21/20 05/13/22 Tom White [address] [place] [address] PCP - General Internal Medicine 05/14/22 10/06/22 Marisela Goodrich MD [address] [place] [address] PCP - General Internal Medicine 10/07/22 documented as of this encounter
--- OUTSIDE RECORDS SUMMARY | 2025-04-02 09:53 | XMS_ITS | Encounter Summary ---
Author Organization [facility] Address [address] [place] [address] Care Team Providers Care Medical Registrar Name Role Phone Alexandria Peñaloza MD Primary Care Provider Unava Kristy Rush MD Primary Care Provider Un available Alexandria Peñaloza MD Primary Care Provider Unava Tom Booker Primary Care Provider [phone] Marisela Goodrich MD Primary Care Provider + Encounter Details Date Type Department Care Team Description 02/15/2020 Stem Dryer Maintainer Report Medical Records [address] [place] [address] Reji Hensley [address] [place] [address] Social History Tobacco Use Types Packs/Day Years [...] filedocumented in this encounter Care Teams Medical Registrar Relationship Specialty Start Date End Date Alexandria Peñaloza MD PCP - General 03/26/10 07/24/20 Kristy Castrejon MD PCP - General Internal Medicine 07/25/20 1 Alexandria Peñaloza MD PCP - General Internal Medicine 11/21/20 05/13/22 Tom White [address] [place] [address] PCP - General Internal Medicine 05/14/22 10/06/22 Marisela Goodrcih MD [address] [place] [address] PCP - General Internal Medicine 10/07/22 documented as of this encounter
--- OUTSIDE RECORDS SUMMARY | 2025-04-02 09:53 | XMS_ITS | Encounter Summary ---
Author Organization [facility] Address [address] [place] [address] Care Team Providers Care Record Librarian Name Role Phone Alexandria Peñaloza MD Primary Care Provider Tom Jane Primary Care Provider [phone] Mairsela Goodrich MD Primary Care Provider + Reason for Visit * Reason Onset Date Comments Prior Authorization 11/20/2021 MRI Lumbar S pine Encounter Details Date Type Department Care Team Description 11/20/2021 Telephone Adult Medicine [facility] [address] [place] [address] Aye Ortega PA-C [address] [place] [address] Prior Authorization (MRI Lumbar Spine) Social History [...] insurance Thank you, Guillermina Alejandra Prior Auth [phone] documented in this encounter Plan of Treatment Not on file documented as of this encounter Visit Diagnoses Not on filedocumented in this encounter Care Teams Record Librarian Relationship Specialty Start Date End Date Alexandria Peñaloza MD PCP - General Internal Medicine 11/21/20 05/13/22 Tom White [address] [place] [address] PCP - General Internal Medicine 05/14/22 10/06/22 Marisela Goodrich MD [address] [place] [address] PCP - General Internal Medicine 10/07/22 documented as of this encounter
--- OUTSIDE RECORDS SUMMARY | 2025-04-02 09:53 | XMS_ITS | Encounter Summary ---
Author Organization [facility] Address [address] [place] [address] Care Team Providers Care Ortho Tech Name Role Phone Alexandria Peñaloza MD Primary Care Provider Unava Kristy Rush MD Primary Care Provider Un available Alexandria Peñaloza MD Primary Care Provider Unava ilTom Toscano Primary Care Provider [phone] Marisela Goodrich MD Primary Care Provider + Encounter Details Date Type Department Care Team Description 10/21/2016 Shop Laborer Report Medical Records [address] [place] [address] Ronnie Boyle MD Social History Tobacco Use [...] Internal Medicine 11/21/20 05/13/22 Tom White [address] [place] [address] PCP - General Internal Medicine 05/14/22 10/06/22 Marisela Goodrich MD [address] [place] [address] PCP - General Internal Medicine 10/07/22 documented as of this encounter
--- OUTSIDE RECORDS SUMMARY | 2025-04-02 09:53 | XMS_ITS | Encounter Summary ---
Author Organization [facility] Address [address] [place] [address] Care Team Providers Care Director Selection And Administration Name Role Phone Alexandria Peñaloza MD Primary Care Provider Unava Kristy Rush MD Primary Care Provider Un available Alexandria Peñaloza MD Primary Care Provider Unava Tom Booker Primary Care Provider [phone] Marisela Goodrich MD Primary Care Provider + Encounter Details Date Type Department Care Team Description 12/27/2019 Release of Information Medical Records [address] [place] [address] Abstract, Provider Social History Tobacco Use Types [...] filedocumented in this encounter Care Teams Director Selection And Administration Relationship Specialty Start Date End Date Alexandria Peñaloza MD PCP - General 03/26/10 07/24/20 Kristy Castrejon MD PCP - General Internal Medicine 07/25/20 1 Alexandria Peñaloza MD PCP - General Internal Medicine 11/21/20 05/13/22 Tom White [address] [place] [address] PCP - General Internal Medicine 05/14/22 10/06/22 Marisela Goodrich MD [address] [place] [address] PCP - General Internal Medicine 10/07/22 documented as of this encounter
--- OUTSIDE RECORDS SUMMARY | 2025-04-02 09:53 | XMS_ITS | Encounter Summary ---
Author Organization [facility] Address [address] [place] [address] Care Team Providers Care Granite Polisher Name Role Phone Alexandria Peñaloza MD Primary Care Provider Unava Kristy Rush MD Primary Care Provider Un available Alexandria Peñaloza MD Primary Care Provider Unava Tom Booker Primary Care Provider [phone] Marisela Goodrich MD Primary Care Provider + Encounter Details Date Type Department Care Team Description 12/20/2019 [facility] Medical Records [address] [place] [address] Robel Marks MD Social History Tobacco Use [...] on filedocumented in this encounter Care Teams Granite Polisher Relationship Specialty Start Date End Date Alexandria Peñaloza MD PCP - General 03/26/10 07/24/20 Kirsty Castrejon MD PCP - General Internal Medicine 07/25/20 1 Alexandria Peñaloza MD PCP - General Internal Medicine 11/21/20 05/13/22 Tom White [address] [place] [address] PCP - General Internal Medicine 05/14/22 10/06/22 Marisela Goodrich MD [address] [place] [address] PCP - General Internal Medicine 10/07/22 documented as of this encounter
--- OUTSIDE RECORDS SUMMARY | 2025-04-02 09:53 | XMS_ITS | Encounter Summary ---
Author Organization [facility] Address [address] [place] [address] Care Team Providers Care Manager Law Name Role Phone Alexandria Peñaloza MD Primary Care Provider Unava Kristy Rush MD Primary Care Provider Un available Alexandria Peñaloza MD Primary Care Provider Unava ilTom Toscano Primary Care Provider [phone] Marisela Goodrich MD Primary Care Provider + Reason for Visit * Reason Onset Date Comments Prior Authorization 05/30/2014 esomeprazole (NEXIUM) 40 MG capsule Encounter Details Date Type Department Care Team Description 05/30/2014 Telephone Medicine/Pediatrics - [address] [address] Alexandria Peñaloza MD Prior Authorization (esomeprazole (NEXIUM) [...] for this problem Patients current medical insurance [facility] pcc plan What Prescription Plan does the patient have? Prescription Plan Tel # from back of prescription ID card [phone] What is the patients Prescription Plan ID #? [id number] What Pharmacy does the patient use? [facility]: [place] / Plan: MEDICAID PCC / Product Type: MEDICAID [id number] documented in this encounter Plan of Treatment Not on file documented as of this encounter Visit Diagnoses Not on filedocumented in this encounter Care Teams Manager Law Relationship Specialty Start Date End Date Alexandria Peñaloza MD PCP - General 03/26/10 07/24/20 Kristy Castrejon MD PCP - General Internal Medicine 07/25/20 1 Alexandria Peñaloza MD PCP - General Internal Medicine 11/21/20 05/13/22 Tom White [address] [place] [address] PCP - General Internal Medicine 05/14/22 10/06/22 Marisela Goodrich MD [address] [place] [address] PCP - General Internal Medicine 10/07/22 documented as of this encounter
--- OUTSIDE RECORDS SUMMARY | 2025-04-02 09:53 | XMS_ITS | Encounter Summary ---
Author Organization [facility] Address [address] [place] [address] Care Team Providers Care Engineering Teacher Name Role Phone Alexandria Peñaloza MD Primary Care Provider Unava Kristy Rush MD Primary Care Provider Un available Alexandria Peñaloza MD Primary Care Provider Unava ilable Tom White Primary Care Provider [phone] Marisela Goodrich MD Primary Care Provider + Encounter Details Date Type Department Care Team Description 05/14/2018 Pleater Hand Report Medical Records [address] [place] [address] Fran Adams [address] [place] [address], [address] [place] [address] Social History Tobacco Use Types Packs/Day Years [...] filedocumented in this encounter Care Teams Engineering Teacher Relationship Specialty Start Date End Date Alexandria Peñaloza MD PCP - General 03/26/10 07/24/20 Kristy Castrejon MD PCP - General Internal Medicine 07/25/20 1 Alexandria Peñaloza MD PCP - General Internal Medicine 11/21/20 05/13/22 Tom White [address] [place] [address] PCP - General Internal Medicine 05/14/22 10/06/22 Marisela Goodrich MD [address] [place] [address] PCP - General Internal Medicine 10/07/22 documented as of this encounter
--- OUTSIDE RECORDS SUMMARY | 2025-04-02 09:53 | XMS_ITS | Encounter Summary ---
Author Organization [facility] Address [address] [place] [address] Care Team Providers Care Market Development Executive Name Role Phone Alexandria Peñaloza MD Primary Care Provider Unava Kristy Rush MD Primary Care Provider Un available Alexandria Peñaloza MD Primary Care Provider Unava ilable Tom White Primary Care Provider [phone] Marisela Goodrich MD Primary Care Provider + Encounter Details Date Type Department Care Team Description 08/07/2016 Pt. Non Urgent Medic al Question Gastroenterology - [address] [address] Juanjose Connell MD Social History Tobacco Use [...] on filedocumented in this encounter Care Teams Market Development Executive Relationship Specialty Start Date End Date Alexandria Peñaloza MD PCP - General 03/26/10 07/24/20 Kristy Castrejon MD PCP - General Internal Medicine 07/25/20 1 Alexandria Peñaloza MD PCP - General Internal Medicine 11/21/20 05/13/22 Tom White [address] [place] [id number] PCP - General Internal Medicine 05/14/22 10/06/22 Marisela Goodrich MD [address] [place] [address] PCP - General Internal Medicine 10/07/22 documented as of this encounter
--- OUTSIDE RECORDS SUMMARY | 2025-04-02 09:53 | XMS_ITS | Encounter Summary ---
Author Organization [facility] Address [address] [place] [address] Care Team Providers Care Account Receivable Clerk Name Role Phone Alexandria Peñaloza MD Primary Care Provider Unava Kristy Rush MD Primary Care Provider Un available Alexandria Peñaloza MD Primary Care Provider Unava Tom Booker Primary Care Provider [phone] Marisela Goodrich MD Primary Care Provider + Reason for Visit * Reason Onset Date Comments APPOINTMENT 07/23/2018 Encounter Details Date Type Department Care Team Description 07/23/2018 Telephone Medicine/Pediatrics - [address] [address] Sandy Villa PA-C APPOINTMENT Social History Tobacco [...] filedocumented in this encounter Care Teams Account Receivable Clerk Relationship Specialty Start Date End Date Alexandria Peñaloza MD PCP - General 03/26/10 07/24/20 Kristy Castrejon MD PCP - General Internal Medicine 07/25/20 1 Alexandria Peñaloza MD PCP - General Internal Medicine 11/21/20 05/13/22 Tom White [address] [place] [address] PCP - General Internal Medicine 05/14/22 10/06/22 Marisela Goodrich MD [address] [place] [address] PCP - General Internal Medicine 10/07/22 documented as of this encounter
--- OUTSIDE RECORDS SUMMARY | 2025-04-02 09:53 | XMS_ITS | Clinical Summary ---
Author Organization [facility] it Address [address] [place] [address] Care Team Providers Care Acute Coordinator Name Role Phone Marisela Goodrich MD Primary [...] Fibromyalgia 11/12/2024 Morbid obesity with BMI of 4 0.0-44.9, adult ([facility] V24, [facility] V28) 11/12/2024 Bipolar disorder ([facility] V24, [facility] V28) 02/15 Hyperlipidemia 02/26/2023 Poorly controlled diabetes m ellitus ([facility] V24, [facility] V28) 09/24/2022 Nocturnal hypoxemia 04/08/2022 Overview (11/12/2024): [facility] diagnostic polysomnogram 03/14/2022 weight 320; BMI 49. AHI 4. Average oxygen saturation 90% with oxygen lashaun 80%. Nocturnal hypoxemia without sleep apnea diagnosed. PLMD also noted. 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 C. difficile colitis 06/30/2019 Overview (11/12/2024): 04/03; 03/05 07/05; 01/2021; GI and ID involved; 8 wks po vanco; to start vanco with any abx tx Morbid obesity ([facility] V24, [facility] V28) 2018 Functional abdominal pain syndrome 04/07/2019 Overview (11/12/2024): [...] related to another health condition 01/10/2012 Epilepsy ([facility] V24, [facility] V28) 07/05/2010 Overview (11/12/2024): Age 10 onset Hidradenitis [...] Surgery Date Site/Laterality Comments SECTION 2007 PROCEDURE: [place] DELIVERY ONLY; COMMENT: x 1 WISDOM TOOTH EXTRACTION age 14 PROCEDURE: HISTORICAL WISDOM TEETH EXTRACTION OTHER SURGICAL HISTORY age 5 PROCEDURE: [place] STRABISMUS RECESSION/RESCJ 1 HRZNTL MUSC TUBAL LIGATION [...] Joshi COLONOSCOPY 06/2018 PROCEDURE: HISTORICAL COLONOSCOPY; COMMENT: [facility]; visually normal, biopsies negative for microscopic colitis. COLONOSCOPY 11/2017 PROCEDURE: HISTORICAL COLONOSCOPY; COMMENT: [facility]; random biopsies negative for microscopic colitis, one diminutive tubular adenoma in the sigmoid colon. ROBOTIC ASSISTED HYSTERECTOMY 12/20/2019 PROCEDURE: HISTORICAL ROBOTIC HYSTERECTOMY WITH OR WITHOUT BSO; COMMENT: [facility] total hysterectomy with bilateral salpingectomy UPPER GASTROINTESTINAL ENDOSCOPY 02/25/2012 PROCEDURE: [place] UPPER GI ENDOSCOPY PERFORMED; COMMENT: Normal on PPI rx. UPPER GASTROINTESTINAL ENDOSCOPY 12/15/2016 PROCEDURE: [place] UPPER GI ENDOSCOPY PERFORMED; COMMENT: Dr. Fei Mak; small hiatal hernia, biopsy of a normal-appearing EG junction was negative for Vasquez's esophagus. Medical History Medical History Date Comments Joint pain DX:Joint pain Asthma DX:Asthma; COMME NT: exercise induced; URI Depression DX:Depression; C OMMENT: as a teenager Anemia DX:Anemia Seizure (CMS/HCC V24, CMS/HCC V28) age 10 DX:Seizure (HCC); COMMENT: nocturnal complex partial; Dr. Hensley at [facility] IBS (irritable bowel syndrome) D X:IBS (irritable bowel syndrome); COMMENT: intermittent Obesity 05/01/2010 DX:Obesity Gastric reflux 05/01/2010 DX:Gastric reflu x Anxiety DX:Anxiety Fibromyalgia DX:Fibromyalgia Vitamin B12 deficiency 04/08/2016 DX:Vitami n B12 deficiency Chronic diarrhea 06/19/2016 DX:Chronic diar cynthia; COMMENT: Onset approximately age [age] years old. Migraine headache 03/28/2020 DX:Migraine he adache; COMMENT: Onset childhood age 9. Family History Medical History Relation Name Comments Colon cancer Father's side great uncle, d ied at about age 60 Arthritis Maternal Grandmother Arthritis Paternal Grandmother said to have RA Relation Name Status Comments Father Alive dm, depression Father's side Maternal Grandfather prostat e ca Maternal Grandmother Alive ca, marcelo ast lump, ovarian cyst, heart problem, thyroid dz, [place] age unknown Mother Alive ovarian cyst Paternal [...] 10/19/2021, 04/07/2021, Additional history exists Influenza Vaccine (Season Ended) 2025 08/15/2020, 09/22/2018, 09/29/2017, Additional history exists Colorectal Cancer [...] age to complete this topic Meningococcal B Vaccine Aged Out No l onger eligible based on patient's age to complete [...] * Annual BMP Blood Test (02/26/2023) Pathologist [facility] Annual BMP Blood Test abstracted [facility] Provider HEALTH MAINTENANCE Final Result * Urine Albumin Creatinine Ratio (01/27/2023) Pathologist [facility] Urine Albumin Creatinine Ratio abstracted Result [facility] Provider HEALTH MAINTENANCE Final Result * (ABNORMAL) Hemoglobin A1c (01/27/2023) Pathologist [facility] Hemoglobin A1C 8.4(A) <=6.5 % Blood Venous blood specimen / Unknown Result [facility] Provider LAB BLOOD ORDERABLES Mini l Result * (ABNORMAL) Lipid panel (01/27/2023) Pathologist [facility] LDL/HDL Ratio 5(A) 0 - 4 Triglycerides 509(A) 0 - 150 mg/dL Cholesterol 173 0 - 200 mg/dL HDL 36(A) >=40 mg/dL Blood Venous blood specimen / Unknown [facility] Provider LAB BLOOD ORDERABLES Mini l Result * Colonoscopy (01/17/2021) Colonoscopy no interpretation , abstracted Anatomical Region Laterality Modality Other us Historical Provider HEALTH MAINTENANCE Final Result * DX [...] Recently Relevant to Health Maintenance Care Teams Acute Coordinator Relationship Specialty Start Date End Date Marisela Goodrich MD PCP - General 10/07/22
--- OUTSIDE RECORDS SUMMARY | 2025-04-02 09:53 | XMS_ITS | Encounter Summary ---
Author Organization [facility] Address [address] [place] [address] Care Team Providers Care Deboning Team Leader Name Role Phone Tom White Primary Care Provider [phone] Marisela Goodrich MD Primary Care Provider + Reason for Visit * Reason Onset Date Comments Mychart Rx Refill 09/06/2022 Encounter Details Date Type Department Care Team Description 09/06/2022 Refill Medicine/Pediatrics - [address] [address] Aye Ortega PA-C [address] [place] [address] Mychart Rx Refill Social History Tobacco Use [...] on filedocumented in this encounter Care Teams Deboning Team Leader Relationship Specialty Start Date End Date Tom White [address] [place] [address] PCP - General Internal Medicine 05/14/22 10/06/22 Marisela Goodrich MD [address] [place] [address] PCP - General Internal Medicine 10/07/22 documented as of this encounter
--- OUTSIDE RECORDS SUMMARY | 2025-04-02 09:54 | XMS_ITS | Encounter Summary ---
Author Organization [facility] Address [address] [place] [address] Care Team Providers Care Portable Feed Mill Operator Name Role Phone Alexandria Peñaloza MD Primary Care Provider Unava Kristy Rush MD Primary Care Provider Un available Alexandria Peñaloza MD Primary Care Provider Unava Tom Booker Primary Care Provider [phone] Marisela Goodrich MD Primary Care Provider + Encounter Details Date Type Department Care Team Description 03/18/2013 Orders Only Medicine/Pediatrics - [address] [address] Marli Vanessa PA-C Other malaise and fatigue [...] Primary documented in this encounter Care Teams Portable Feed Mill Operator Relationship Specialty Start Date End Date Alexandria Peñaloza MD PCP - General 03/26/10 07/24/20 Kristy Castrejon MD PCP - General Internal Medicine 07/25/20 1 Alexandria Peñaloza MD PCP - General Internal Medicine 11/21/20 05/13/22 Tom White [address] [place] [address] PCP - General Internal Medicine 05/14/22 10/06/22 Marisela Goodrich MD [address] [place] [address] PCP - General Internal Medicine 10/07/22 documented as of this encounter
--- OUTSIDE RECORDS SUMMARY | 2025-04-02 09:54 | XMS_ITS | Encounter Summary ---
Author Organization [facility] Address [address] [place] [address] Care Team Providers Care Laboratory Immunologist Name Role Phone Alexandria Peñaloza MD Primary Care Provider Unava Kristy Rush MD Primary Care Provider Un available Alexandria Peñaloza MD Primary Care Provider Soniava Tom Booker Primary Care Provider [phone] Marisela Goodrich MD Primary Care Provider + Encounter Details Date Type Department Care Team Description 05/21/2019 [facility] Medical Records [address] [place] [address] Abstract, Provider Social History Tobacco Use Types [...] on filedocumented in this encounter Care Teams Laboratory Immunologist Relationship Specialty Start Date End Date Alexandria Peñaloza MD PCP - General 03/26/10 07/24/20 Kristy Castrejon MD PCP - General Internal Medicine 07/25/20 1 Alexandria Peñaloza MD PCP - General Internal Medicine 11/21/20 05/13/22 Tom White [address] [place] [address] PCP - General Internal Medicine 05/14/22 10/06/22 Marisela Goodrich MD [address] [place] [address] PCP - General Internal Medicine 10/07/22 documented as of this encounter
--- OUTSIDE RECORDS SUMMARY | 2025-04-02 09:54 | XMS_ITS | Encounter Summary ---
Author Organization [facility] Address [address] [place] [address] Care Team Providers Care Farm Adviser Name Role Phone Alexandria Peñaloza MD Primary Care Provider Unava Kristy Rush MD Primary Care Provider Un available Alexandria Peñaloza MD Primary Care Provider Unava ilable Tom White Primary Care Provider [phone] Marisela Goodrich MD Primary Care Provider + Reason for Referral * EXTERNAL (Routine) - Authorized/Booked Specialty Diagnoses / Procedures Referred By Contact Referred To Contact Obstetrics/Gynecology / Obstetrics & Gynecology Procedures REFERRAL TO OBSTETRICS & GYNECOLOGY Alexandria Peñaloza MD [address] [place] [address] [facility] [address] [place] [address] Referral ID Status Reason Start Date Expiration Date V isits Requested Visits Authorized SEE NOTE Authorized/B ooked 04/18/2017 07/25/2017 1 1 Reason for Visit * Reason Onset Date Comments Property Officer Feedback 04/18/2017 MYKEL ORANTES Encounter Details Date Type Department Care Team Description 04/18/2017 Telephone Medicine/Pediatrics - [address] [phone] Alexandria Peñaloza MD Property Officer Feedback (MYKEL ORANTES) Social History Tobacco Use [...] 11:44 AM EDT Pts call came into [facility] pt services. Explained to pt about her [place] health coverage and that she is now assigned to the [facility] via the PCC plan. Pt understands and [...] / Plan: MEDICAID PCC / Product Type:MEDICAID [id number] Effective 08/17/09: BCBS will not retro referral [...] insurance must be obtained and registered in [facility] or their referral can not be processed. Is this a retro request? NO. If yes for what date of service do you need the retro referral? N/A Who is calling to request this referral? MYKEL CORRIGAN COMPUTER INSTALLATION ENGINEER If the caller is not the patient, [...] YES Is this visit:Initial Visit Address of Specialist:[address] [place] [address] Phone # of Specialist:[phone] Fax #: (if applicable):[phone] Does patient have an appointment scheduled?: YES Date of appointment- (including a retro-request): 04/21/17 Is this appointment related to: Not MVA, WC or Surgery related documented in this encounter Plan of Treatment Not on file documented as of this encounter Visit Diagnoses Not on filedocumented in this encounter Care Teams Farm Adviser Relationship Specialty Start Date End Date Alexandria Peñaloza MD PCP - General 03/26/10 07/24/20 Kristy Castrejon MD PCP - General Internal Medicine 07/25/20 1 Alexandria Peñaloza MD PCP - General Internal Medicine 11/21/20 05/13/22 Tom White [address] [place] [address] PCP - General Internal Medicine 05/14/22 10/06/22 Marisela Goodrich MD [address] [place] [address] PCP - General Internal Medicine 10/07/22 documented as of this encounter
--- OUTSIDE RECORDS SUMMARY | 2025-04-02 09:54 | XMS_ITS | Encounter Summary ---
Author Organization [facility] Address [address] [place] [address] Care Team Providers Care Department Store Door Greeter Name Role Phone Alexandria Peñaloza MD Primary Care Provider Unava Kristy Rush MD Primary Care Provider Un available Alexandria Peñaloza MD Primary Care Provider Unava Tom Booker Primary Care Provider [phone] Marisela Goodrich MD Primary Care Provider + Encounter Details Date Type Department Care Team Description 11/05/2016 [facility] Medical Records [address] [place] [address] Ronnie Boyle MD Social History Tobacco Use [...] on filedocumented in this encounter Care Teams Department Store Door Greeter Relationship Specialty Start Date End Date Alexandria Peñaloza MD PCP - General 03/26/10 07/24/20 Kristy Castrejon MD PCP - General Internal Medicine 07/25/20 1 Alexandria Peñaloza MD PCP - General Internal Medicine 11/21/20 05/13/22 Tom White [address] [place] [address] PCP - General Internal Medicine 05/14/22 10/06/22 Marisela Goodrich MD [address] [place] [address] PCP - General Internal Medicine 10/07/22 documented as of this encounter
--- OUTSIDE RECORDS SUMMARY | 2025-04-02 09:54 | XMS_ITS | Encounter Summary ---
Author Organization [facility] Address [address] [place] [address] Care Team Providers Care Clinical Appeals Auditor Name Role Phone Alexandria Peñaloza MD Primary Care Provider Unava Kristy Rush MD Primary Care Provider Un available Alexandria Peñaloza MD Primary Care Provider Unava Tom Booker Primary Care Provider [phone] Marisela Goodrich MD Primary Care Provider + Reason for Referral * EXTERNAL (Routine) - Authorized/Booked Specialty Diagnoses / Procedures Referred By Contpark t Referred To Contact Neurology Procedures REFERRAL TO NEUROLOGY Alexandria Peñaloza MD [address] [place] [address] [facility] Referral ID Status Reason Start Date Expiration Date V isits Requested Visits Authorized SEE NOTE Authorized/B ooked 05/10/2019 08/11/2019 1 1 Reason for Visit * Reason Onset Date Comments Warp Dyeing Vat Tender Feedback 05/10/2019 [facility] General Angus rology Encounter Details Date Type Department Care Team Description 05/10/2019 Telephone Medicine/Pediatrics - [address] [phone] Alexandria Peñaloza MD Warp Dyeing Vat Tender Feedback ([facility] General Neurology) Social History Tobacco Use Types [...] filedocumented in this encounter Care Teams Clinical Appeals Auditor Relationship Specialty Start Date End Date Alexandria Peñaloza MD PCP - General 03/26/10 07/24/20 Kristy Castrejon MD PCP - General Internal Medicine 07/25/20 1 Alexandria Peñaloza MD PCP - General Internal Medicine 11/21/20 05/13/22 Tom White [address] [place] [address] PCP - General Internal Medicine 05/14/22 10/06/22 Marisela Goodrich MD [address] [place] [address] PCP - General Internal Medicine 10/07/22 documented as of this encounter
--- OUTSIDE RECORDS SUMMARY | 2025-04-02 09:54 | XMS_ITS | Encounter Summary ---
Author Organization [facility] Address [address] [place] [address] Care Team Providers Care Class C Truck Driver Name Role Phone Alexandria Peñaloza MD Primary Care Provider UnaKristy Negro MD Primary Care Provider Un available Alexandria Peñaloza MD Primary Care Provider Soniava Tom Booker Primary Care Provider [phone] Marisela Goodrich MD Primary Care Provider + Encounter Details Date Type Department Care Team Description 08/03/2019 [facility] Medical Records [address] [place] [address] Social History Tobacco Use Types Packs/Day Years [...] on filedocumented in this encounter Care Teams Class C Truck Driver Relationship Specialty Start Date End Date Alexandria Peñaloza MD PCP - General 03/26/10 07/24/20 Krisyt Castrejon MD PCP - General Internal Medicine 07/25/20 1 Alexandria Peñaloza MD PCP - General Internal Medicine 11/21/20 05/13/22 Tom White [address] [place] [address] PCP - General Internal Medicine 05/14/22 10/06/22 Marisela Goodrich MD [address] [place] [address] PCP - General Internal Medicine 10/07/22 documented as of this encounter
--- OUTSIDE RECORDS SUMMARY | 2025-04-02 09:54 | XMS_ITS | Encounter Summary ---
Author Organization [facility] Address [address] [place] [address] Care Team Providers Care Lumber Piler Name Role Phone Alexandria Peñaloza MD Primary Care Provider Tom Jane Primary Care Provider [phone] Marisela Goodrich MD Primary Care Provider + Reason for Visit * Reason Onset Date Comments URI Symptoms 09/05/2021 sinus infection 09/05/2021 Wheezing 09/05/2021 Encounter Details Date Type Department Care Team Description 09/05/2021 Telephone Medicine/Pediatrics - [address] [phone] Alexandria Peñaloza MD URI Symptoms; sinus infection; [...] wheezing, congestion, cough, sinus pressure waqs at [facility] 3 daysago - no relief from [...] traveled recently to another state outside of [place], [place], [place], [place], [place], [place], [place]? NO o If yes, did you quarantine [...] vehicle accident? NO If yes, gather 3rd alliance party insurance information Date of accident/Injury: How long has patient had these symptoms?: 7 days PCP: Alexandria Peñaloza Payor: KARMA Mercari FFS / Plan: [employer] / Product Type: MEDICAID RISK documented in this encounter Plan of Treatment Not on file documented as of this encounter Visit Diagnoses Not on filedocumented in this encounter Care Teams Lumber Piler Relationship Specialty Start Date End Date Alexandria Peñaloza MD PCP - General Internal Medicine 11/21/20 05/13/22 Tom White [address] [place] [address] PCP - General Internal Medicine 05/14/22 10/06/22 Marisela Goodrich MD [address] [place] [address] PCP - General Internal Medicine 10/07/22 documented as of this encounter
--- OUTSIDE RECORDS SUMMARY | 2025-04-02 09:54 | XMS_ITS | Encounter Summary ---
Author Organization [facility] Address [address] [place] [address] Care Team Providers Care Video Operator Name Role Phone Alexandria Peñaloza MD Primary Care Provider Unava Kristy Rush MD Primary Care Provider Un available Alexandria Peñaloza MD Primary Care Provider Unava ilTom Toscano Primary Care Provider [phone] Marisela Goodrich MD Primary Care Provider + Encounter Details Date Type Department Care Team Description 11/05/2016 Statistician Mathematical Report Medical Records [address] [place] [address] Yoel Rogers Np Social History Tobacco Use [...] on filedocumented in this encounter Care Teams Video Operator Relationship Specialty Start Date End Date Alexandria Peñaloza MD PCP - General 03/26/10 07/24/20 Kristy Castrejon MD PCP - General Internal Medicine 07/25/20 1 Alexandria Peñaloza MD PCP - General Internal Medicine 11/21/20 05/13/22 Tom White [address] [place] [address] PCP - General Internal Medicine 05/14/22 10/06/22 Marisela Goodrich MD [address] [place] [address] PCP - General Internal Medicine 10/07/22 documented as of this encounter
--- OUTSIDE RECORDS SUMMARY | 2025-04-02 09:54 | XMS_ITS | Encounter Summary ---
Author Organization [facility] Address [address] [place] [address] Care Team Providers Care Sales Host Name Role Phone Alexandria Peñaloza MD Primary Care Provider Unava Kristy Rush MD Primary Care Provider Un available Alexandria Peñaloza MD Primary Care Provider Unava ilTom Toscano Primary Care Provider [phone] Marisela Goodrich MD Primary Care Provider + Encounter Details Date Type Department Care Team Description 03/23/2012 Miner Helper Report Medical Records [address] [place] [address] Reji Hensley [address] [place] [address] Social History Tobacco Use Types Packs/Day Years [...] filedocumented in this encounter Care Teams Sales Host Relationship Specialty Start Date End Date Alexadnria Peñaloza MD PCP - General 03/26/10 07/24/20 Kristy Castrejon MD PCP - General Internal Medicine 07/25/20 1 Alexandria Peñaloza MD PCP - General Internal Medicine 11/21/20 05/13/22 Tom White [address] [place] [address] PCP - General Internal Medicine 05/14/22 10/06/22 Marisela Goodrich MD [address] [place] [address] PCP - General Internal Medicine 10/07/22 documented as of this encounter
--- OUTSIDE RECORDS SUMMARY | 2025-04-02 09:54 | XMS_ITS | Encounter Summary ---
Author Organization [facility] Address [address] [place] [address] Care Team Providers Care Rubber Boots And Shoes Repairer Name Role Phone Alexandria Peñaloza MD Primary Care Provider UnaKristy Negro MD Primary Care Provider Un available Alexandria Peñaloza MD Primary Care Provider Tom Jane Primary Care Provider [phone] Marisela Goodrich MD Primary Care Provider + Encounter Details Date Type Department Care Team Description 04/17/2015 Hospital Medical Records [address] [place] [address] Tom White [address] [place] [address] Social History Tobacco Use Types Packs/Day Years [...] on filedocumented in this encounter Care Teams Rubber Boots And Shoes Repairer Relationship Specialty Start Date End Date Alexandria Peñaloza MD PCP - General 03/26/10 07/24/20 Kristy Castrejon MD PCP - General Internal Medicine 07/25/20 1 Alexandria Peñaloza MD PCP - General Internal Medicine 11/21/20 05/13/22 Tom White [address] [place] [address] PCP - General Internal Medicine 05/14/22 10/06/22 Marisela Goodrich MD [address] [place] [address] PCP - General Internal Medicine 10/07/22 documented as of this encounter
--- OUTSIDE RECORDS SUMMARY | 2025-04-02 09:54 | XMS_ITS | Encounter Summary ---
Author Organization [facility] Address [address] [place] [address] Care Team Providers Care Trauma Registrar Name Role Phone Alexandria Peñaloza MD Primary Care Provider Unava Kristy Rush MD Primary Care Provider Un available Alexandria Peñaloza MD Primary Care Provider Unava Tom Booker Primary Care Provider [phone] Marisela Goodrich MD Primary Care Provider + Encounter Details Date Type Department Care Team Description 09/01/2019 [facility] Medical Records [address] [place] [address] Ayesha Weaver MD Social History Tobacco Use [...] on filedocumented in this encounter Care Teams Trauma Registrar Relationship Specialty Start Date End Date Alexandria Peñaloza MD PCP - General 03/26/10 07/24/20 Kristy Castrejon MD PCP - General Internal Medicine 07/25/20 1 Alexandria Peñaloza MD PCP - General Internal Medicine 11/21/20 05/13/22 Tom White [address] [place] [address] PCP - General Internal Medicine 05/14/22 10/06/22 Marisela Goodrich MD [address] [place] [address] PCP - General Internal Medicine 10/07/22 documented as of this encounter
--- OUTSIDE RECORDS SUMMARY | 2025-04-02 09:54 | XMS_ITS | Encounter Summary ---
Author Organization [facility] Address [address] [place] [address] Care Team Providers Care Postal Mail Carrier Name Role Phone Alexandria Peñaloza MD Primary Care Provider Tom Jane Primary Care Provider [phone] Marisela Goodrich MD Primary Care Provider + Encounter Details Date Type Department Care Team Description 07/30/2021 Registered Radiation Therapist Report Medical Records [address] [place] [address] Reji Hensley [address] [place] [address] Social History Tobacco Use Types Packs/Day Years [...] on filedocumented in this encounter Care Teams Postal Mail Carrier Relationship Specialty Start Date End Date Alexandria Peñaloza MD PCP - General Internal Medicine 11/21/20 05/13/22 Tom White [address] [place] [address] PCP - General Internal Medicine 05/14/22 10/06/22 Marisela Goodrich MD [address] [place] [address] PCP - General Internal Medicine 10/07/22 documented as of this encounter
--- OUTSIDE RECORDS SUMMARY | 2025-04-02 09:54 | XMS_ITS | Encounter Summary ---
Author Organization [facility] Address [address] [place] [address] Care Team Providers Care Supervisor Fish Bait Processing Name Role Phone Alexandria Peñaloza MD Primary Care Provider Unava Kristy Rush MD Primary Care Provider Un available Alexandria Peñaloza MD Primary Care Provider Unava ilTom Toscano Primary Care Provider [phone] Marisela Goodrich MD Primary Care Provider + Encounter Details Date Type Department Care Team Description 06/21/2019 Sound Recordist Report Medical Records [address] [place] [address] João Bahena MD Social History Tobacco Use [...] filedocumented in this encounter Care Teams Supervisor Fish Bait Processing Relationship Specialty Start Date End Date Alexandria Peñaloza MD PCP - General 03/26/10 07/24/20 Kristy Castrejon MD PCP - General Internal Medicine 07/25/20 1 Alexandria Peñaloza MD PCP - General Internal Medicine 11/21/20 05/13/22 Tom White [address] [place] [address] PCP - General Internal Medicine 05/14/22 10/06/22 Marisela Goodrich MD [address] [place] [address] PCP - General Internal Medicine 10/07/22 documented as of this encounter
--- OUTSIDE RECORDS SUMMARY | 2025-04-02 09:54 | XMS_ITS | Encounter Summary ---
Author Organization [facility] Address [address] [place] [address] Care Team Providers Care Medical Insurance Coder Name Role Phone Alexandria Peñaloza MD Primary Care Provider Unava Kristy Rush MD Primary Care Provider Un available Alexandria Peñaloza MD Primary Care Provider Unava Tom Booker Primary Care Provider [phone] Marisela Goodrich MD Primary Care Provider + Encounter Details Date Type Department Care Team Description 07/06/2019 Hospital Medical Records [address] [place] [address] Beatriz Farrell NP Social History Tobacco Use [...] filedocumented in this encounter Care Teams Medical Insurance Coder Relationship Specialty Start Date End Date Alexandria Peñaloza MD PCP - General 03/26/10 07/24/20 Kristy Castrejon MD PCP - General Internal Medicine 07/25/20 1 Alexandria Peñaloza MD PCP - General Internal Medicine 11/21/20 05/13/22 Tom White [address] [place] [address] PCP - General Internal Medicine 05/14/22 10/06/22 Marisela Goodrich MD [address] [place] [address] PCP - General Internal Medicine 10/07/22 documented as of this encounter
--- OUTSIDE RECORDS SUMMARY | 2025-04-02 09:54 | XMS_ITS | Encounter Summary ---
Author Organization [facility] Address [address] [place] [address] Care Team Providers Care Stretch Machine Operator Name Role Phone Alexandria Peñaloza MD Primary Care Provider Tom Jane Primary Care Provider [phone] Marisela Goodrich MD Primary Care Provider + Encounter Details Date Type Department Care Team Description 09/08/2021 Pt. Non Urgent Medic al Question Medicine/Pediatrics - [address] [phone] Kristy Castrejon MD Social History Tobacco Use [...] on filedocumented in this encounter Care Teams Stretch Machine Operator Relationship Specialty Start Date End Date Alexandria Peñaloza MD PCP - General Internal Medicine 11/21/20 05/13/22 Tom White [address] [place] [address] PCP - General Internal Medicine 05/14/22 10/06/22 Marisela Goodrich MD [address] [place] [address] PCP - General Internal Medicine 10/07/22 documented as of this encounter
--- OUTSIDE RECORDS SUMMARY | 2025-04-02 09:54 | XMS_ITS | Encounter Summary ---
Author Organization [facility] Address [address] [place] [address] Care Team Providers Care Coal Chemist Name Role Phone Alexandria Peñaloza MD Primary Care Provider Unava Kristy Rush MD Primary Care Provider Un available Alexandria Peñaloza MD Primary Care Provider Unava Tom Booker Primary Care Provider [phone] Marisela Goodrich MD Primary Care Provider + Encounter Details Date Type Department Care Team Description 06/21/2015 Pt. Non Urgent Medic al Question Physiatry - [address] [address] Brad Coombs DO Social History Tobacco Use [...] on filedocumented in this encounter Care Teams Coal Chemist Relationship Specialty Start Date End Date Alexandria Peñaloza MD PCP - General 03/26/10 07/24/20 Kristy Castrejon MD PCP - General Internal Medicine 07/25/20 1 Alexandria Peñaloza MD PCP - General Internal Medicine 11/21/20 05/13/22 Tom White [address] [place] [address] PCP - General Internal Medicine 05/14/22 10/06/22 Marisela Goodrich MD [address] [place] [address] PCP - General Internal Medicine 10/07/22 documented as of this encounter
--- OUTSIDE RECORDS SUMMARY | 2025-04-02 09:54 | XMS_ITS | Encounter Summary ---
Author Organization [facility] Address [address] [place] [address] Care Team Providers Care Sales Engagement Executive Name Role Phone Alexandria Peñaloza MD Primary Care Provider Unava Kristy Rush MD Primary Care Provider Un available Alexandria Peñaloza MD Primary Care Provider Soniava Tom Booker Primary Care Provider [phone] Marisela Goodrich MD Primary Care Provider + Encounter Details Date Type Department Care Team Description 08/21/2019 Release of Information Medical Records [address] [place] [address] Abstract, Provider Social History Tobacco Use Types [...] filedocumented in this encounter Care Teams Sales Engagement Executive Relationship Specialty Start Date End Date Alexandria Peñaloza MD PCP - General 03/26/10 07/24/20 Kristy Castrejon MD PCP - General Internal Medicine 07/25/20 1 Alexandria Peñaloza MD PCP - General Internal Medicine 11/21/20 05/13/22 Tom White [address] [place] [address] PCP - General Internal Medicine 05/14/22 10/06/22 Marisela Goodrich MD [address] [place] [address] PCP - General Internal Medicine 10/07/22 documented as of this encounter
--- OUTSIDE RECORDS SUMMARY | 2025-04-02 09:54 | XMS_ITS | Encounter Summary ---
Author Organization [facility] Address [address] [place] [address] Care Team Providers Care Seo Consultant Name Role Phone Alexandria Peñaloza MD Primary Care Provider Unava Kristy Rush MD Primary Care Provider Un available Alexandria Peñaloza MD Primary Care Provider Unava Tom Booker Primary Care Provider [phone] Marisela Goodrich MD Primary Care Provider + Encounter Details Date Type Department Care Team Description 04/11/2017 Hospital Medical Records [address] [place] [address] Ronaldo Bautista MD Social History Tobacco Use [...] filedocumented in this encounter Care Teams Seo Consultant Relationship Specialty Start Date End Date Alexandria Peñaloza MD PCP - General 03/26/10 07/24/20 Kristy Castrejon MD PCP - General Internal Medicine 07/25/20 1 Alexandria Peñaloza MD PCP - General Internal Medicine 11/21/20 05/13/22 Tom White [address] [place] [address] PCP - General Internal Medicine 05/14/22 10/06/22 Marisela Goodrich MD [address] [place] [address] PCP - General Internal Medicine 10/07/22 documented as of this encounter
--- OUTSIDE RECORDS SUMMARY | 2025-04-02 09:54 | XMS_ITS | Encounter Summary ---
Author Organization [facility] Address [address] [place] [address] Care Team Providers Care Psychiatric Np Name Role Phone Alexandria Peñaloza MD Primary Care Provider UnaKristy Negro MD Primary Care Provider Un available Alexandria Peñaloza MD Primary Care Provider Soniava Tom Booker Primary Care Provider [phone] Marisela Goodrich MD Primary Care Provider + Encounter Details Date Type Department Care Team Description 06/23/2019 [facility] Medical Records [address] [place] [address] Social History Tobacco Use Types Packs/Day Years [...] on filedocumented in this encounter Care Teams Psychiatric Np Relationship Specialty Start Date End Date Alexandria Peñaloza MD PCP - General 03/26/10 07/24/20 Kristy Castrejon MD PCP - General Internal Medicine 07/25/20 1 Alexandria Peñaloza MD PCP - General Internal Medicine 11/21/20 05/13/22 Tom White [address] [place] [address] PCP - General Internal Medicine 05/14/22 10/06/22 Marisela Goodrich MD [address] [place] [address] PCP - General Internal Medicine 10/07/22 documented as of this encounter
--- OUTSIDE RECORDS SUMMARY | 2025-04-02 09:54 | XMS_ITS | Encounter Summary ---
Author Organization [facility] Address [address] [place] [address] Care Team Providers Care Assistant Basketball Coach Name Role Phone Alexandria Peñaloza MD Primary Care Provider Unava Kristy Rush MD Primary Care Provider Un available Alexandria Peñaloza MD Primary Care Provider Unava Tom Booker Primary Care Provider [phone] Marisela Goodrich MD Primary Care Provider + Encounter Details Date Type Department Care Team Description 05/10/2019 Pt. Non Urgent Medic al Question Medicine/Pediatrics - [address] [address] Alexandria Peñaloza MD Social History Tobacco Use [...] 05/10/2019 11:15 AM EDT Subject: Referral to [facility] neurology Dr. 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 I currently see someone through [facility] but I would like to go out to [place] because I hear they are verygood. A referral got put in but it was to [facility] neurology for Doctor Rodolfo and I have seen him in the past and he is terrible. I do not want to go there again. If possible could you please put in a referral to me for [place] I don't care who I see out [...] filedocumented in this encounter Care Teams Assistant Basketball Coach Relationship Specialty Start Date End Date Alexandria Peñaloza MD PCP - General 03/26/10 07/24/20 Kristy Castrejon MD PCP - General Internal Medicine 07/25/20 1 Alexandria Peñaloza MD PCP - General Internal Medicine 11/21/20 05/13/22 Tom White [address] [place] [address] PCP - General Internal Medicine 05/14/22 10/06/22 Marisela Goodrich MD [address] [place] [address] PCP - General Internal Medicine 10/07/22 documented as of this encounter
--- OUTSIDE RECORDS SUMMARY | 2025-04-02 09:54 | XMS_ITS | Encounter Summary ---
Author Organization [facility] Address [address] [place] [address] Care Team Providers Care Halver Machine Operator Name Role Phone Alexandria Peñaloza MD Primary Care Provider Unava Kristy Rush MD Primary Care Provider Un available Alexandria Peñaloza MD Primary Care Provider Unava Tom Booker Primary Care Provider [phone] Marisela Goodrich MD Primary Care Provider + Reason for Visit * Reason Comments E-prescribe Rx Request Encounter Details Date Type Department Care Team Description 01/12/2013 Refill Medicine/Pediatrics - [address] [address] Marli Vanessa PA-C E-prescribe Rx Request Social [...] next appt. 01/26/13 * Telephone Encounter - iKndra Lemus - 01/12/2013 11:28 AM EST WHEN [...] insurance carrier is: Payor[place] Plan: MEDICAID [facility] Product Type: MEDICAIDFEE-FOR-SERVICE documented in this encounter Plan of Treatment Not on file documented as of this encounter Visit Diagnoses Not on filedocumented in this encounter Care Teams Halver Machine Operator Relationship Specialty Start Date End Date Alexandria Peñaloza MD PCP - General 03/26/10 07/24/20 Kristy Castrejon MD PCP - General Internal Medicine 07/25/20 1 Alexandria Peñaloza MD PCP - General Internal Medicine 11/21/20 05/13/22 Tom White [address] [place] [address] PCP - General Internal Medicine 05/14/22 10/06/22 Marisela Goodrich MD [address] [place] [address] PCP - General Internal Medicine 10/07/22 documented as of this encounter
--- OUTSIDE RECORDS SUMMARY | 2025-04-02 09:54 | XMS_ITS | Encounter Summary ---
Author Organization [facility] Address [address] [place] [address] Care Team Providers Care Tiller Worker Name Role Phone Alexandria Peñaloza MD Primary Care Provider Unava Kristy Rush MD Primary Care Provider Un available Alexandria Peñaloza MD Primary Care Provider Unava Tom Booker Primary Care Provider [phone] Marisela Goodrich MD Primary Care Provider + Encounter Details Date Type Department Care Team Description 07/04/2019 [facility] Medical Records [address] [place] [id number] [place] [address] Social History Tobacco Use Types Packs/Day Years [...] on filedocumented in this encounter Care Teams Tiller Worker Relationship Specialty Start Date End Date Alexandria Peñaloza MD PCP - General 03/26/10 07/24/20 Kristy Castrejon MD PCP - General Internal Medicine 07/25/20 1 Alexandria Peñaloza MD PCP - General Internal Medicine 11/21/20 05/13/22 Tom White [address] [place] [address] PCP - General Internal Medicine 05/14/22 10/06/22 Marisela Goodrich MD [address] [place] [address] PCP - General Internal Medicine 10/07/22 documented as of this encounter
--- OUTSIDE RECORDS SUMMARY | 2025-04-02 09:54 | XMS_ITS | Encounter Summary ---
Author Organization [facility] Address [address] [place] [address] Care Team Providers Care Director Hydrogen Storage Engineering Name Role Phone Alexandria Peñaloza MD Primary Care Provider Unava Kristy Rush MD Primary Care Provider Un available Alexandria Peñaloza MD Primary Care Provider Unava ilTom Toscano Primary Care Provider [phone] Marisela Goodrich MD Primary Care Provider + Encounter Details Date Type Department Care Team Description 01/23/2017 Coater Operator Report Medical Records [address] [place] [address] Stephen Reynolds MD Social History Tobacco Use [...] filedocumented in this encounter Care Teams Director Hydrogen Storage Engineering Relationship Specialty Start Date End Date Alexandria Peñaloza MD PCP - General 03/26/10 07/24/20 Kristy Castrejon MD PCP - General Internal Medicine 07/25/20 1 Alexandria Peñaloza MD PCP - General Internal Medicine 11/21/20 05/13/22 Tom White [address] [place] [address] PCP - General Internal Medicine 05/14/22 10/06/22 Marisela Goodrich MD [address] [place] [address] PCP - General Internal Medicine 10/07/22 documented as of this encounter
--- OUTSIDE RECORDS SUMMARY | 2025-04-02 09:54 | XMS_ITS | Encounter Summary ---
Author Organization [facility] Address [address] [place] [address] Care Team Providers Care Highway Patrol Pilot Name Role Phone Alexandria Peñaloza MD Primary Care Provider Unava Kristy Rush MD Primary Care Provider Un available Alexandria Peñaloza MD Primary Care Provider Unava ilTom Toscano Primary Care Provider [phone] Marisela Goodrich MD Primary Care Provider + Encounter Details Date Type Department Care Team Description 04/12/2012 [facility] Medical Records [address] [place] [address] Yonny Agrawal MD Social History Tobacco Use [...] on filedocumented in this encounter Care Teams Highway Patrol Pilot Relationship Specialty Start Date End Date Alexandria Peñaloza MD PCP - General 03/26/10 07/24/20 Kristy Castrejon MD PCP - General Internal Medicine 07/25/20 1 Alexandria Peñaloza MD PCP - General Internal Medicine 11/21/20 05/13/22 Tom White [address] [place] [address] PCP - General Internal Medicine 05/14/22 10/06/22 Marisela Goodrich MD [address] [place] [address] PCP - General Internal Medicine 10/07/22 documented as of this encounter
--- OUTSIDE RECORDS SUMMARY | 2025-04-02 09:54 | XMS_ITS | Encounter Summary ---
Author Organization [facility] Address [address] [place] [address] Care Team Providers Care Bender Machine Operator Name Role Phone Alexandria Peñaloza MD Primary Care Provider Unava Kristy Rush MD Primary Care Provider Un available Alexandria Peñaloza MD Primary Care Provider Soniava Tom Booker Primary Care Provider [phone] Marisela Goodrich MD Primary Care Provider + Encounter Details Date Type Department Care Team Description 12/02/2014 Hereditary Cancer Qu iz Results Medical Records [address] [place] [address] Abstract, Provider Social History Tobacco Use Types [...] on filedocumented in this encounter Care Teams Bender Machine Operator Relationship Specialty Start Date End Date Alexandria Peñaloza MD PCP - General 03/26/10 07/24/20 Kristy Castrejon MD PCP - General Internal Medicine 07/25/20 1 Alexandria Peñaloza MD PCP - General Internal Medicine 11/21/20 05/13/22 Tom White [address] [place] [address] PCP - General Internal Medicine 05/14/22 10/06/22 Marisela Goodrich MD [address] [place] [address] PCP - General Internal Medicine 10/07/22 documented as of this encounter
--- OUTSIDE RECORDS SUMMARY | 2025-04-02 09:54 | XMS_ITS | Encounter Summary ---
Author Organization [facility] Address [address] [place] [address] Care Team Providers Care Home Attendant Name Role Phone Alexandria Peñaloza MD Primary Care Provider Unava Kristy Rush MD Primary Care Provider Un available Alexandria Peñaloza MD Primary Care Provider Unava Tom Booker Primary Care Provider [phone] Marisela Goodrich MD Primary Care Provider + Encounter Details Date Type Department Care Team Description 03/18/2013 Orders Only Medicine/Pediatrics - [address] [address] Marli Vanessa PA-C Other malaise and fatigue [...] - 80 ng/ml 03/19/2013 2:35 PM EDT [facility] Comment: Vitamin D Reference Ranges ??Deficiency: ? <20 ng/mL ??Insufficiency: ?20-29 ng/mL ??Optimal: ?30-80 ng/mL ??High: ? >80 ng/mL 03/18/2013 1:39 PM EDT 03/18/2013 1:39 PM EDT Marli Vanessa PA-C LAB Performing Organization Address [facility] de Phone Number [address] * LYME POLYVALENT AB SCREEN (03/18/2013 1:39 PM EDT) Pathologist [facility] LYME DISEASE ANTIBODIES NEGATIVE NEGATIVE 03/19/2013 2:44 PM EDT [facility] 03/18/2013 1:39 PM EDT 03/18/2013 1:39 PM EDT Marli Vanessa PA-C LAB Performing Organization Address [facility] de Phone Number [address] documented in this encounter Visit Diagnoses Diagnosis Other malaise and fatigue- Primary documented in this encounter Care Teams Home Attendant Relationship Specialty Start Date End Date Alexandria Peñaloza MD PCP - General 03/26/10 07/24/20 Kristy Castrejon MD PCP - General Internal Medicine 07/25/20 1 Alexandria Peñaloza MD PCP - General Internal Medicine 11/21/20 05/13/22 Tom White [address] [place] [address] PCP - General Internal Medicine 05/14/22 10/06/22 Marisela Goodrich MD [address] [place] [address] PCP - General Internal Medicine 10/07/22 documented as of this encounter
--- OUTSIDE RECORDS SUMMARY | 2025-04-02 09:54 | XMS_ITS | Encounter Summary ---
Author Organization [facility] Address [address] [place] [address] Care Team Providers Care Drug Abuse Counselor Name Role Phone Alexandria Peñaloza MD Primary Care Provider Unava Kristy Rush MD Primary Care Provider Un available Alexandria Peñaloza MD Primary Care Provider Unava ilTom Toscano Primary Care Provider [phone] Marisela Goodrich MD Primary Care Provider + Encounter Details Date Type Department Care Team Description 07/06/2012 [place] Crane Operator Report Medical Records [address] [place] [address] Reji Hensley [address] [place] [address] Social History Tobacco Use Types Packs/Day Years [...] on filedocumented in this encounter Care Teams Drug Abuse Counselor Relationship Specialty Start Date End Date Alexandria Peñaloza MD PCP - General 03/26/10 07/24/20 Kristy Castrejon MD PCP - General Internal Medicine 07/25/20 1 Alexandria Peñaloza MD PCP - General Internal Medicine 11/21/20 05/13/22 Tom White [address] [place] [address] PCP - General Internal Medicine 05/14/22 10/06/22 Marisela Goodrich MD [address] [place] [address] PCP - General Internal Medicine 10/07/22 documented as of this encounter
--- OUTSIDE RECORDS SUMMARY | 2025-04-02 09:54 | XMS_ITS | Encounter Summary ---
Author Organization [facility] Address [address] [place] [address] Care Team Providers Care Inspector And Unloader Name Role Phone Alexandria Peñaloza MD Primary Care Provider Unava Kristy Rush MD Primary Care Provider Un available Alexandria Peñaloza MD Primary Care Provider Unava ilable Tom White Primary Care Provider [phone] Marisela Goodrich MD Primary Care Provider + Encounter Details Date Type Department Care Team Description 03/21/2015 Dictating Machine Transcriber Report Medical Records [address] [place] [address] Peter Matias MD Social History Tobacco Use [...] filedocumented in this encounter Care Teams Inspector And Unloader Relationship Specialty Start Date End Date Alexandria Peñaloza MD PCP - General 03/26/10 07/24/20 Kristy Castrejon MD PCP - General Internal Medicine 07/25/20 1 Alexandria Peñaloza MD PCP - General Internal Medicine 11/21/20 05/13/22 Tom White [address] [place] [address] PCP - General Internal Medicine 05/14/22 10/06/22 Marisela Goodrich MD [address] [place] [address] PCP - General Internal Medicine 10/07/22 documented as of this encounter
--- OUTSIDE RECORDS SUMMARY | 2025-04-02 09:54 | XMS_ITS | Clinical Summary ---
Author Organization [facility] Address [address] [address] Care Team Providers Care Turbine Subassembler Name Role Phone Tom White MD Primary [...] Diabetes: Hemoglobin A1C 04/29/2023 01/27/2023 Pneumococcal Vaccine: Peds ( 0 to 5 Years) and At-Risk Patients (6 to 49 Years) (3 of 3 - PCV) 08/26/2023 08/26/2022, 04/10/2017, 02/15/2014 Influenza Vaccine (Season Ended) 2025 09/22/20 18, 09/29/2017 Insurance Medicaid [place] Care Teams Turbine Subassembler Relationship Specialty Start Date End Date Tom White MD [address] [place] [address] PCP - [facility] 02/14/23
--- OUTSIDE RECORDS SUMMARY | 2025-04-02 09:54 | XMS_ITS | Encounter Summary ---
Author Organization [facility] Address [address] [place] [address] Care Team Providers Care Aircraft Line Assembler Name Role Phone Alexandria Peñaloza MD Primary Care Provider Unava Kristy Rush MD Primary Care Provider Un available Alexandria Peñaloza MD Primary Care Provider Unava Tom Booker Primary Care Provider [phone] Marisela Goodrich MD Primary Care Provider + Reason for Visit * Reason Comments E-prescribe Rx Request Encounter Details Date Type Department Care Team Description 05/12/2019 Refill Medicine/Pediatrics - [address] [address] Cristobal Mares PA-C E-prescribe Rx Request Social [...] N/A Patients current insurance carrier is: Payor: [employer] FFS / Plan: FOLUP [facility] / Product Type: MEDICAID RISK documented in this encounter Plan of Treatment Not on file documented as of this encounter Visit Diagnoses Not on filedocumented in this encounter Care Teams Aircraft Line Assembler Relationship Specialty Start Date End Date Alexandria Peñaloza MD PCP - General 03/26/10 07/24/20 Kristy Castrejon MD PCP - General Internal Medicine 07/25/20 1 Alexandria Peñaloza MD PCP - General Internal Medicine 11/21/20 05/13/22 Tom White [address] [place] [address] PCP - General Internal Medicine 05/14/22 10/06/22 Marisela Goodrich MD [address] [place] [address] PCP - General Internal Medicine 10/07/22 documented as of this encounter
--- OUTSIDE RECORDS SUMMARY | 2025-04-02 09:54 | XMS_ITS | Encounter Summary ---
Author Organization [facility] Address [address] [place] [address] Care Team Providers Care Professional Shopper Name Role Phone Marisela Goodrich MD Primary Care Provider + Encounter Details Date Type Department Care Team Description 01/28/2023 Pt. Non Urgent Medical Question Adult Medicine [address] [address] Tom White [address] [place] [address] Social History Tobacco Use Types Packs/Day Years [...] filedocumented in this encounter Care Teams Professional Shopper Relationship Specialty Start Date End Date Marisela Goodrich MD [address] [place] [address] PCP - General Internal Medicine 10/07/22 documented as of this encounter
--- OUTSIDE RECORDS SUMMARY | 2025-04-02 09:54 | XMS_ITS | Encounter Summary ---
Author Organization [facility] Address [address] [place] [address] Care Team Providers Care Business English Instructor Name Role Phone Alexandria Peñaloza MD Primary Care Provider Kristy Milan MD Primary Care Provider Un available Alexandria Peñaloza MD Primary Care Provider Soniava Tom Booker Primary Care Provider [phone] Marisela Goodrich MD Primary Care Provider + Encounter Details Date Type Department Care Team Description 06/21/2019 [facility] Medical Records [address] [place] [address] Social History Tobacco Use Types Packs/Day Years [...] filedocumented in this encounter Care Teams Business English Instructor Relationship Specialty Start Date End Date Alexandria Peñaloza MD PCP - General 03/26/10 07/24/20 Kristy Castrejon MD PCP - General Internal Medicine 07/25/20 1 Alexandria Peñaloza MD PCP - General Internal Medicine 11/21/20 05/13/22 Tom White [address] [place] [address] PCP - General Internal Medicine 05/14/22 10/06/22 Marisela Goodrich MD [address] [place] [address] PCP - General Internal Medicine 10/07/22 documented as of this encounter
--- OUTSIDE RECORDS SUMMARY | 2025-04-02 09:54 | XMS_ITS | Encounter Summary ---
Author Organization [facility] Address [address] [place] [address] Care Team Providers Care Flake Miller Wheat And Oats Name Role Phone Alexandria Peñaloza MD Primary Care Provider Tom Jane Primary Care Provider [phone] Marisela Goodrich MD Primary Care Provider + Encounter Details Date Type Department Care Team Description 06/11/2021 [facility] Medical Records [address] [place] [address] Social History Tobacco Use Types Packs/Day Years [...] on filedocumented in this encounter Care Teams Flake Miller Wheat And Oats Relationship Specialty Start Date End Date Alexandria Peñaloza MD PCP - General Internal Medicine 11/21/20 05/13/22 Tom White [address] [place] [address] PCP - General Internal Medicine 05/14/22 10/06/22 Marisela Goodrich MD [address] [place] [address] PCP - General Internal Medicine 10/07/22 documented as of this encounter
--- OUTSIDE RECORDS SUMMARY | 2025-04-02 09:54 | XMS_ITS | Encounter Summary ---
Author Organization [facility] Address [address] [place] [address] Care Team Providers Care Circle Shear Operator Name Role Phone Alexandria Peñaloza MD Primary Care Provider Unava Kristy Rush MD Primary Care Provider Un available Alexandria Peñaloza MD Primary Care Provider Unava Tom Booker Primary Care Provider [phone] Marisela Goodrich MD Primary Care Provider + Encounter Details Date Type Department Care Team Description 02/08/2013 [facility] Medical Records [address] [place] [address] Easton Jackson MD Social History Tobacco Use [...] on filedocumented in this encounter Care Teams Circle Shear Operator Relationship Specialty Start Date End Date Alexandria Peñaloza MD PCP - General 03/26/10 07/24/20 Kristy Castrejon MD PCP - General Internal Medicine 07/25/20 1 Alexandria Peñaloza MD PCP - General Internal Medicine 11/21/20 05/13/22 Tom White [address] [place] [address] PCP - General Internal Medicine 05/14/22 10/06/22 Marisela Goodrich MD [address] [place] [address] PCP - General Internal Medicine 10/07/22 documented as of this encounter
--- OUTSIDE RECORDS SUMMARY | 2025-04-02 09:54 | XMS_ITS | Encounter Summary ---
Author Organization [facility] Address [address] [place] [address] Care Team Providers Care Electrician Outside Name Role Phone Marisela Goodrich MD Primary Care Provider + Encounter Details Date Type Department Care Team Description 02/15/2023 [facility] Medical Records [address] [place] [address] Social History Tobacco Use Types Packs/Day Years [...] filedocumented in this encounter Care Teams Electrician Outside Relationship Specialty Start Date End Date Marisela Goodrich MD [address] [place] [address] PCP - General Internal Medicine 10/07/22 documented as of this encounter
--- OUTSIDE RECORDS SUMMARY | 2025-04-02 09:54 | XMS_ITS | Encounter Summary ---
Author Organization [facility] Address [address] [place] [address] Care Team Providers Care Fashion Consultant Selling Name Role Phone Alexandria Peñaloza MD Primary Care Provider Unava Kristy Rush MD Primary Care Provider Un available Alexandria Peñaloza MD Primary Care Provider Unava Tom Booker Primary Care Provider [phone] Marisela Goodrich MD Primary Care Provider + Encounter Details Date Type Department Care Team Description 09/02/2019 [facility] Medical Records [address] [place] [address] Beatriz Farrell NP Social History Tobacco Use [...] on filedocumented in this encounter Care Teams Fashion Consultant Selling Relationship Specialty Start Date End Date Alexandria Peñaloza MD PCP - General 03/26/10 07/24/20 Kristy Castrejon MD PCP - General Internal Medicine 07/25/20 1 Alexandria Peñaloza MD PCP - General Internal Medicine 11/21/20 05/13/22 Tom White [address] [place] [address] PCP - General Internal Medicine 05/14/22 10/06/22 Marisela Goodrich MD [address] [place] [address] PCP - General Internal Medicine 10/07/22 documented as of this encounter
--- OUTSIDE RECORDS SUMMARY | 2025-04-02 09:54 | XMS_ITS | Encounter Summary ---
Author Organization [facility] Address [address] [place] [address] Care Team Providers Care Software Developer Manager Name Role Phone Alexandria Peñaloza MD Primary Care Provider Unava Kristy Rush MD Primary Care Provider Un available Alexandria ePñaloza MD Primary Care Provider Unava ilTom Toscano Primary Care Provider [phone] Marisela Goodrich MD Primary Care Provider + Encounter Details Date Type Department Care Team Description 10/13/2012 Door Patcher Report Medical Records [address] [place] [address] Reji Hensley [address] [place] [address] Social History Tobacco Use Types Packs/Day Years [...] on filedocumented in this encounter Care Teams Software Developer Manager Relationship Specialty Start Date End Date Alexandria Peñaloza MD PCP - General 03/26/10 07/24/20 Kristy Castrejon MD PCP - General Internal Medicine 07/25/20 1 Alexandria Peñaloza MD PCP - General Internal Medicine 11/21/20 05/13/22 Tom White [address] [place] [address] PCP - General Internal Medicine 05/14/22 10/06/22 Marisela Goodrich MD [address] [place] [address] PCP - General Internal Medicine 10/07/22 documented as of this encounter
--- OUTSIDE RECORDS SUMMARY | 2025-04-02 09:54 | XMS_ITS | Encounter Summary ---
Author Organization [facility] Address [address] [place] [address] Care Team Providers Care Fountain Waitress/Waiter Name Role Phone Alexandria Peñaloza MD Primary Care Provider Unava Kristy Rush MD Primary Care Provider Un available Alexandria Peñaloza MD Primary Care Provider Unava Tom Booker Primary Care Provider [phone] Marisela Goodrich MD Primary Care Provider + Encounter Details Date Type Department Care Team Description 04/06/2015 SCREW MACHINE SETTER/MassPat Report Medical Records [address] [place] [address] Abstract, Provider Social History Tobacco Use Types [...] on filedocumented in this encounter Care Teams Fountain Waitress/Waiter Relationship Specialty Start Date End Date Alexandria Peñaloza MD PCP - General 03/26/10 07/24/20 Kristy Castrejon MD PCP - General Internal Medicine 07/25/20 1 Alexandria Peñaloza MD PCP - General Internal Medicine 11/21/20 05/13/22 Tom White [address] [place] [address] PCP - General Internal Medicine 05/14/22 10/06/22 Marisela Goodrich MD [address] [place] [address] PCP - General Internal Medicine 10/07/22 documented as of this encounter
--- OUTSIDE RECORDS SUMMARY | 2025-04-02 09:54 | XMS_ITS | Encounter Summary ---
Author Organization [facility] Address [address] [place] [address] Care Team Providers Care Senior Quality Analyst Name Role Phone Marisela Goodrich MD Primary Care Provider + Encounter Details Date Type Department Care Team Description 12/27/2022 Refill Medicine/Pediatrics - [address] [address] Alexandria Peñaloza MD Social History Tobacco Use [...] EST Labs pending to date, sent f/u Plinkt message requesting a response. * Telephone Encounter - Robbie Hogan M.A. - 12/28/2022 8:46 PM EST No Paper Just Vaporhart message to pt- needs to have labs [...] Start Date End Date Marisela Goodrich MD [address] [place] [address] PCP - General Internal Medicine 10/07/22 documented as of this encounter
--- OUTSIDE RECORDS SUMMARY | 2025-04-02 09:54 | XMS_ITS | Encounter Summary ---
Author Organization [facility] Address [address] [place] [address] Care Team Providers Care Material Control Associate Name Role Phone Marisela Goodrich MD Primary Care Provider + Encounter Details Date Type Department Care Team Description 01/22/2023 Anatomic Pathology Manager Report Medical Records [address] [place] [address] Ronnie Boyle MD Social History Tobacco Use [...] on filedocumented in this encounter Care Teams Material Control Associate Relationship Specialty Start Date End Date Marisela Goodrich MD [address] [place] [address] PCP - General Internal Medicine 10/07/22 documented as of this encounter
--- OUTSIDE RECORDS SUMMARY | 2025-04-02 09:54 | XMS_ITS | Encounter Summary ---
Author Organization [facility] Address [address] [place] [address] Care Team Providers Care Mobile Heavy Equipment Operator Name Role Phone Alexandria Peñaloza MD Primary Care Provider Unava Kristy Rush MD Primary Care Provider Un available Alexandria Peñaloza MD Primary Care Provider Unava Tom Booker Primary Care Provider [phone] Marisela Goodrich MD Primary Care Provider + Reason for Visit * Reason Onset Date Comments Colitis 03/12/2017 Encounter Details Date Type Department Care Team Description 03/12/2017 Telephone Medicine/Pediatrics - [address] [phone] Alexandria Peñaloza MD Colitis Social History Tobacco [...] filedocumented in this encounter Care Teams Mobile Heavy Equipment Operator Relationship Specialty Start Date End Date Alexandria Peñaloza MD PCP - General 03/26/10 07/24/20 Kristy Castrejon MD PCP - General Internal Medicine 07/25/20 1 Alexandria Peñaloza MD PCP - General Internal Medicine 11/21/20 05/13/22 Tom White [address] [place] [address] PCP - General Internal Medicine 05/14/22 10/06/22 Marisela Goodrich MD [address] [place] [address] PCP - General Internal Medicine 10/07/22 documented as of this encounter
--- OUTSIDE RECORDS SUMMARY | 2025-04-02 09:55 | XMS_ITS | Encounter Summary ---
Author Organization [facility] Address [address] [place] [address] Care Team Providers Care Binder Cutter Name Role Phone Kristy Castrejon MD Primary Care Provider Un available Alexandria Peñaloza MD Primary Care Provider Unava Tom Booker Primary Care Provider [phone] Marisela Goodrich MD Primary Care Provider + Encounter Details Date Type Department Care Team Description 10/05/2020 Telephone OBGYN - [place] [address] [place] [address] Sandro Preciado MD [address] [place], [place] [phone] Social History Tobacco Use Types Packs/Day Years [...] on filedocumented in this encounter Care Teams Binder Cutter Relationship Specialty Start Date End Date Kristy Castrejon MD PCP - General Internal Medicine 07/25/20 1 Alexandria Peñaloza MD PCP - General Internal Medicine 11/21/20 05/13/22 Tom White [address] [place], [place] [id number] PCP - General Internal Medicine 05/14/22 10/06/22 Marisela Goodrich MD [address] [place] [address] PCP - General Internal Medicine 10/07/22 documented as of this encounter
--- OUTSIDE RECORDS SUMMARY | 2025-04-02 09:55 | XMS_ITS | Encounter Summary ---
Author Organization [facility] Address [address] [place] [address] Care Team Providers Care Train Dispatcher Name Role Phone Alexandria Peñaloza MD Primary Care Provider Kristy Milan MD Primary Care Provider Un available Alexandria Peñaloza MD Primary Care Provider Soniava Tom Booker Primary Care Provider [phone] Marisela Goodrich MD Primary Care Provider + Encounter Details Date Type Department Care Team Description 03/18/2019 [facility] Medical Records [address] [place] [id number] Social History Tobacco Use Types Packs/Day Years [...] on filedocumented in this encounter Care Teams Train Dispatcher Relationship Specialty Start Date End Date Alexandria Peñaloza MD PCP - General 03/26/10 07/24/20 Kristy Castrejon MD PCP - General Internal Medicine 07/25/20 1 Alexandria Peñaloza MD PCP - General Internal Medicine 11/21/20 05/13/22 Tom White [address] [place] [address] PCP - General Internal Medicine 05/14/22 10/06/22 Marisela Goodrich MD [address] [place] [address] PCP - General Internal Medicine 10/07/22 documented as of this encounter
--- OUTSIDE RECORDS SUMMARY | 2025-04-02 09:55 | XMS_ITS | Encounter Summary ---
Author Organization [facility] Address [address] [place] [address] Care Team Providers Care End Polisher Name Role Phone Alexandria Peñaloza MD Primary Care Provider Tom Jane Primary Care Provider [phone] Marisela Goodrich MD Primary Care Provider + Reason for Visit * Reason Onset Date Comments Prior Authorization 04/18/2021 Encounter Details Date Type Department Care Team Description 04/18/2021 Refill Adult Medicine [address] [address] Alexandria Pñealoza MD Prior Authorization Social History Tobacco Use [...] Is this a Cover My Meds request: [place] of Medication Pregablin Dose of Medication 25 mg capsules What is the RX # from the faxed refill? How does patient take this med? What Pharmacy [facility] the fax come from[facility] fax #: [phone] [employer] Information from fax: What Prescription Plan does the patient have? BIN/PCN if applicable: Cardholder ID: Person Code: Relationship Code: Help desk phone: documented in this encounter Plan of Treatment Not on file documented as of this encounter Visit Diagnoses Not on filedocumented in this encounter Care Teams End Polisher Relationship Specialty Start Date End Date Alexandria Peñaloza MD PCP - General Internal Medicine 11/21/20 05/13/22 Tom White [address] [place] [address] PCP - General Internal Medicine 05/14/22 10/06/22 Marisela Goodrich MD [address] [place] [address] PCP - General Internal Medicine 10/07/22 documented as of this encounter
--- OUTSIDE RECORDS SUMMARY | 2025-04-02 09:55 | XMS_ITS | Encounter Summary ---
Author Organization [facility] Address [address] [place] [address] Care Team Providers Care Laundry Marker Supervisor Name Role Phone Alexandria Peñaloza MD Primary Care Provider UnaKristy Negro MD Primary Care Provider Un available Alexandria Peñaloza MD Primary Care Provider Soniava Tom Booker Primary Care Provider [phone] Marisela Goodrich MD Primary Care Provider + Encounter Details Date Type Department Care Team Description 03/26/2019 [facility] Medical Records [address] [place] [phone] Social History Tobacco Use Types Packs/Day Years [...] on filedocumented in this encounter Care Teams Laundry Marker Supervisor Relationship Specialty Start Date End Date Alexandria Peñaloza MD PCP - General 03/26/10 07/24/20 Kristy Castrejon MD PCP - General Internal Medicine 07/25/20 1 Alexandria Peñaloza MD PCP - General Internal Medicine 11/21/20 05/13/22 Tom White [address] [place] [address] PCP - General Internal Medicine 05/14/22 10/06/22 Marisela Goodrich MD [address] [place] [address] PCP - General Internal Medicine 10/07/22 documented as of this encounter
--- OUTSIDE RECORDS SUMMARY | 2025-04-02 09:55 | XMS_ITS | Clinical Summary ---
Author Organization [facility] Address [address] [place] [address] Care Team Providers Care Product Safety Consultant Name Role Phone Marisela Goodrich MD Primary [...] 12/09/2022 Active vitamin D (ERGOCALCIFEROL) 1.25 MG (66614 UT) capsule Take 1 Capsule by mouth [...] hypoxemia without diagnosed OS A 04/08/2022 Overview: [facility] diagnostic polysomnogram 03/14/2022 weight 320; [...] lump, ovarian cyst, heart problem, thyroid dz, CT age unknown Mother Alive ovarian cyst Paternal [...] 2024 08/26/2022, 10/19/2021, 04/07/2021, Additional history exists BASELINE HEALTH EXAM 40-64 10/29/202402/15, 03/17/2013, 04/09/2010, Additional history exists MAMMOGRAM 2024 10/14/2017 BMI CHECK/ADVISE 11/17/2024 02/26/2023, 06/2022, 11/19/2021, Additional history exists DEPRESSION SCREENING/FOLLOWUP 11/17/2024, 10/31/2021, 10/31/2021, Additional history exists SOCIAL NEEDS SCREENING 11/17/2024 02/26/2023, 2021 INFLUENZA (Season Ended) 2025 022, 08/12/2021, 08/15/2020, Additional history exists COLON CANCER SCREENING 01/17/2026 , 07/15/2018, 12/16/2017, Additional history exists PNEUMOCOCCAL VACCINE FOR HIG H RISK PATIENTS Completed 08/26/2022, 10/02/2016, 02/15/2014 Care Teams Product Safety Consultant Relationship Specialty Start Date End Date Marisela Goodrich MD [address] [place] [id number] PCP - General Internal Medicine 10/07/22
--- OUTSIDE RECORDS SUMMARY | 2025-04-02 09:55 | XMS_ITS | Encounter Summary ---
Author Organization [facility] Address [address] [place] [address] Care Team Providers Care Coal Hauler Name Role Phone Marisela Goodrich MD Primary Care Provider + Encounter Details Date Type Department Care Team Description 03/17/2023 Refill Medicine/Pediatrics - [address] [phone] Alexandria Peñaloza MD Social History Tobacco Use [...] filedocumented in this encounter Care Teams Coal Hauler Relationship Specialty Start Date End Date Marisela Goodrich MD [address] [place] [address] PCP - General Internal Medicine 10/07/22 documented as of this encounter
--- OUTSIDE RECORDS SUMMARY | 2025-04-02 09:55 | XMS_ITS | Encounter Summary ---
Author Organization [facility] Address [address] [place] [address] Care Team Providers Care Land Acquisition Analyst Name Role Phone Marisela Goodrich MD Primary Care Provider + Encounter Details Date Type Department Care Team Description 11/05/2023 Orders Only Medical Records [address] [place] [phone] Sam Tinsley MD Social History Tobacco Use [...] filedocumented in this encounter Care Teams Land Acquisition Analyst Relationship Specialty Start Date End Date Marisela Goodrich MD [address] [place] [address] PCP - General Internal Medicine 10/07/22 documented as of this encounter
--- OUTSIDE RECORDS SUMMARY | 2025-04-02 09:55 | XMS_ITS | Encounter Summary ---
Author Organization [facility] Address [address] [place] [address] Care Team Providers Care Car Unloader Name Role Phone Alexandria Peñaloza MD Primary Care Provider Unava Kristy Rush MD Primary Care Provider Un available Alexandria Peñaloza MD Primary Care Provider Unava Tom Booker Primary Care Provider [phone] Marisela Goodrich MD Primary Care Provider + Reason for Referral * EXTERNAL (Routine) - Authorized/Booked Specialty Diagnoses / Procedures Referred By Caitie t Referred To Contact Neurology Procedures REFERRAL TO NEUROLOGY Alexandria Peñaloza MD [address] [place] [id number] [place] [address] [facility] [address], [address] [place] [address] Referral ID Status Reason Start Date Expiration Date V isits Requested Visits Authorized SEE NOTE Authorized/B ooked 04/26/2019 07/28/2019 1 1 Reason for Visit * Reason Onset Date Comments REFERRAL 04/26/2019 Encounter Details Date Type Department Care Team Description 04/26/2019 Telephone Adult Medicine - [place] [address] [place], [place] [phone] Alexandria Peñaloza MD REFERRAL Social History Tobacco [...] 3:26 PM EDT Requesting a Referral to [facility] Neurology. Thank you documented in this encounter Plan of Treatment Not on file documented as of this encounter Visit Diagnoses Not on filedocumented in this encounter Care Teams Car Unloader Relationship Specialty Start Date End Date Alexandria Peñaloza MD PCP - General 03/26/10 07/24/20 Kristy Castrejon MD PCP - General Internal Medicine 07/25/20 1 Alexandria Peñaloza MD PCP - General Internal Medicine 11/21/20 05/13/22 Tom White [address] [place] [address] PCP - General Internal Medicine 05/14/22 10/06/22 Marisela Goodrich MD [address] [place] [address] PCP - General Internal Medicine 10/07/22 documented as of this encounter
--- OUTSIDE RECORDS SUMMARY | 2025-04-02 09:55 | XMS_ITS | Encounter Summary ---
Author Organization [facility] Address [address] [place] [address] Care Team Providers Care Signal Maintainer Name Role Phone Alexandria Peñaloza MD Primary Care Provider UnaKristy Negro MD Primary Care Provider Un available Alexandria Peñaloza MD Primary Care Provider Soniava Tom Booker Primary Care Provider [phone] Marisela Goodrich MD Primary Care Provider + Encounter Details Date Type Department Care Team Description 03/15/2019 [facility] Medical Records [address] [place] [phone] Social History Tobacco Use Types Packs/Day Years [...] on filedocumented in this encounter Care Teams Signal Maintainer Relationship Specialty Start Date End Date Alexandria Peñaloza MD PCP - General 03/26/10 07/24/20 Kristy Castrejon MD PCP - General Internal Medicine 07/25/20 1 Alexandria Peñaloza MD PCP - General Internal Medicine 11/21/20 05/13/22 Tom White [address] [place] [address] PCP - General Internal Medicine 05/14/22 10/06/22 Marisela Goodrich MD [address] [place] [address] PCP - General Internal Medicine 10/07/22 documented as of this encounter
--- OUTSIDE RECORDS SUMMARY | 2025-04-02 09:55 | XMS_ITS | Encounter Summary ---
Author Organization [facility] Address [address] [place] [address] Care Team Providers Care Community Relations Officer Name Role Phone Alexandria Peñaloza MD Primary Care Provider Tom Jane Primary Care Provider [phone] Marisela Goodrich MD Primary Care Provider + Encounter Details Date Type Department Care Team Description 01/30/2021 Product Safety Professional Report Medical Records [address] [place] [address] Nam Villela Social History Tobacco Use Types [...] in this encounter Care Teams Community Relations Officer Relationship Specialty Start Date End Date Alexandria Peñaloza MD PCP - General Internal Medicine 11/21/20 05/13/22 Tom White [address] [place] [id number] PCP - General Internal Medicine 05/14/22 10/06/22 Marisela Goodrich MD [address] [place] [address] PCP - General Internal Medicine 10/07/22 documented as of this encounter
--- OUTSIDE RECORDS SUMMARY | 2025-04-02 09:55 | XMS_ITS | Encounter Summary ---
Author Organization [facility] Address [address] [place] [address] Care Team Providers Care Global Compensation Analyst Name Role Phone Alexandria Peñaloza MD Primary Care Provider Unava Kristy Rush MD Primary Care Provider Un available Alexandria Peñaloza MD Primary Care Provider Unava ilTom Toscano Primary Care Provider [phone] Marisela Goodrich MD Primary Care Provider + Encounter Details Date Type Department Care Team Description 03/31/2019 [facility] Medical Records [address] [place] [phone] Nam Davenport MD Social History Tobacco Use [...] on filedocumented in this encounter Care Teams Global Compensation Analyst Relationship Specialty Start Date End Date Alexandria Peñaloza MD PCP - General 03/26/10 07/24/20 Kristy Castrejon MD PCP - General Internal Medicine 07/25/20 1 Alexandria Peñaloza MD PCP - General Internal Medicine 11/21/20 05/13/22 Tom White [address] [place] [address] PCP - General Internal Medicine 05/14/22 10/06/22 Marisela Goodrich MD [address] [place] [address] PCP - General Internal Medicine 10/07/22 documented as of this encounter
--- OUTSIDE RECORDS SUMMARY | 2025-04-02 09:55 | XMS_ITS | Encounter Summary ---
Author Organization [facility] Address [address] [place] [address] Care Team Providers Care Director Of Strategic Sales Name Role Phone Alexandria Peñaloza MD Primary Care Provider Tom Jane Primary Care Provider [phone] Marisela Goodrich MD Primary Care Provider + Encounter Details Date Type Department Care Team Description 02/27/2021 Computer Service Technician Report Medical Records [address] [place] [address] Nam Villela Social History Tobacco Use Types [...] in this encounter Care Teams Director Of Strategic Sales Relationship Specialty Start Date End Date Alexandria Peñaloza MD PCP - General Internal Medicine 11/21/20 05/13/22 Tom White [address] [place] [phone] PCP - General Internal Medicine 05/14/22 10/06/22 Marisela Goodrich MD [address] [place] [phone] PCP - General Internal Medicine 10/07/22 documented as of this encounter
--- OUTSIDE RECORDS SUMMARY | 2025-04-02 09:55 | XMS_ITS | Encounter Summary ---
Author Organization [facility] Address [address] [place] [address] Care Team Providers Care Professor Of Graphic Design Name Role Phone Alexandria Peñaloza MD Primary Care Provider Unava Kristy Rush MD Primary Care Provider Un available Alexandria Peñaloza MD Primary Care Provider Unava ilTom Toscano Primary Care Provider [phone] Marisela Goodrich MD Primary Care Provider + Encounter Details Date Type Department Care Team Description 12/31/2013 Health And Safety Tech Report Medical Records [address] [place] [phone] Ba Maharaj MD Social History Tobacco Use [...] in this encounter Care Teams Professor Of Graphic Design Relationship Specialty Start Date End Date Alexandria Peñaloza MD PCP - General 03/26/10 07/24/20 Kristy Castrejon MD PCP - General Internal Medicine 07/25/20 1 Alexandria Peñaloza MD PCP - General Internal Medicine 11/21/20 05/13/22 Tom White [address] [place] [address] PCP - General Internal Medicine 05/14/22 10/06/22 Marisela Goodrich MD [address] [place] [address] PCP - General Internal Medicine 10/07/22 documented as of this encounter
--- OUTSIDE RECORDS SUMMARY | 2025-04-02 09:55 | XMS_ITS | Encounter Summary ---
Author Organization [facility] Address [address] [place] [address] Care Team Providers Care Heel Builder Name Role Phone Marisela Goodrich MD Primary Care Provider + Encounter Details Date Type Department Care Team Description 03/27/2023 Refill Medicine/Pediatrics - [place] [address] [place] [phone] Marisela Goodrich MD [address] [place] [address] [phone] Social History Tobacco Use Types Packs/Day Years [...] on filedocumented in this encounter Care Teams Heel Builder Relationship Specialty Start Date End Date Marisela Goodrich MD [address] [place] [address] PCP - General Internal Medicine 10/07/22 documented as of this encounter
[2025-04-02 10:04] LABS: MANUAL DIFF FLAG NO
[2025-04-02 11:03] LABS: Basophils Absolute Auto 0.1 X10*3/uL (0.0-0.2); Eosinophils Absolute Auto 0.3 X10*3/uL (0.0-0.4); Eosinophils Percent Auto 2.8 % (0-4); Hematocrit 37.8 % (37.0-47.0); Hemoglobin 12.4 g/dl (12.0-16.0); Imm Gran Abs Auto 0.14 X10*3/uL (0.00-0.03); Imm Gran Pct Auto 1.4 % (0.0-0.4); Lymphocytes Absolute Auto 2.6 X10*3/uL (1.2-4.9); Lymphocytes Percent Auto 25.1 % (20-40); Mean Corpuscular HGB Conc 32.8 g/dl (31.0-35.0); Mean Corpuscular Hemoglobin 27.4 pg (27.0-33.0); Mean Corpuscular Volume 83.4 fL (80.0-98.0); Mean Platelet Volume 9.4 fL (9.4-12.3); Monocytes Absolute Auto 0.5 X10*3/uL (0.1-1.2); Monocytes Percent Auto 5.1 % (2-11); Neutrophils Absolute Auto 6.6 x10*3/uL (2.0-8.3); Neutrophils Percent Auto 64.6 % (45-73); Platelet Count 320 X10*3/uL (160-400); Red Blood Count 4.53 X10*6/uL (4.20-5.50); Red Cell Distribution Width 13.5 % (11.0-16.0); White Blood Count 10.2 X10*3/uL (4.8-10.8)
[2025-04-02 11:47] LABS: Alanine Aminotransferase 25 U/L (0-31); Albumin Level 4.4 g/dL (3.5-5.0); Alkaline Phosphatase 83 U/L (39-117); Anion Gap 15 (12-20); Aspartate Amino Transferase 23 U/L (5-31); Bilirubin Total 0.3 mg/dL (0.0-1.0); Blood Urea Nitrogen 12 mg/dL (9-16); Calcium 10.3 mg/dL (8.4-10.2); Carbon Dioxide 24 mmol/L (22-29); Chloride 104 mmol/L (96-108); Cholesterol 160 mg/dL (<200); Estimated Glomerular Filt Rate > 60; Glucose Fasting 206 mg/dL (60-99); HDL Cholesterol 30 mg/dL (>40); Potassium 4.3 mmol/L (3.3-5.1); Sodium 139 mmol/L (135-145); Total Protein 7.6 g/dL (6.5-8.0); Triglycerides 435 mg/dL (<150)
[2025-04-02 12:07] LABS: TSH reflex Free T4 1.43 uIU/mL (0.32-4.0); Vitamin D 25-OH Total 28.5 ng/mL (>30)
== END 2025-04-02 09:51 | disposition home or self-care (01) ==
LOC: HO.LAB 09:50
PROVIDERS: PCP Nurse Practitioner Family; Visit Provider Nurse Practitioner Family
DX: Z00.00 Encounter for general adult medical examination without abnormal findings (principal); E55.9 Vitamin D deficiency, unspecified
CPT/HCPCS: 36415; 80053; 80061; 82306; 84443; 85025

== ENCOUNTER 2025-04-25 15:19 | Outpatient (AMB) | payer OTHER, SELFPAY ==
--- NOTE | 2025-04-25 15:21 | A.OFFPC_ITS ---
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 Required: No Is last menstrual period known: No Post menopausal: No Patient : No Allergies gabapentin [From NEURONTIN] Allergy (Severe, Verified 04/25/25 15:54) ANAPHYLAXIS midazolam [From VERSED] Allergy (Severe, Verified 04/25/25 15:54) ANAPHYLAXIS ketorolac [From Toradol] Adverse Reaction (Intermediate, Verified 04/25/25 15:54) Hives latex Adverse Reaction (Intermediate, Verified 04/25/25 15:54) Rash Sulfa (Sulfonamide Antibiotics) Adverse Reaction (Intermediate, Verified 04/25/25 15:54) Rash Medication List - Last Reconciled 04/25/25 by Preeti Souza CNP albuterol sulfate 90 mcg/actuation 2 puffs inhalation Q6H PRN blood sugar diagnostic (FreeStyle Lite Strips) POS testing TID blood-glucose meter (FreeStyle Lite Meter kit) As directed buspirone 5 mg PO TID PRN cholecalciferol (vitamin D3) 50 mcg PO DAILY 90 days cyanocobalamin (vitamin B-12) 1,000 mcg IM Q4W 90 days cyclobenzaprine 10 mg PO TID PRN dicyclomine 20 mg PO TID dulaglutide (Trulicity) 0.75 mg (0.5 mL) subcut QWEEK escitalopram oxalate (Lexapro) 10 mg PO DAILY fenofibrate 160 mg PO DAILY 30 days fluticasone furoate-vilanterol 200-25 mcg/dose (Breo Ellipta) 1 inh inhalation DAILY fluticasone propionate 50 mcg/actuation (Flonase Allergy Relief) 2 sprays intranasal DAILY 90 days glipizide 5 mg PO DAILY 90 days hydroxyzine HCl 50 mg PO BID PRN ibuprofen 600 mg PO Q8H PRN insulin glargine (Lantus Solostar U-100 Insulin) 34 units (0.34 mL) subcut QPM 90 days lacosamide 150 mg PO BID lancets (FreeStyle Lancets) POC testing TID levocetirizine (Xyzal) 5 mg PO DAILY lisinopril 40 mg PO DAILY 90 days loperamide 2 mg PO Q6H PRN lorazepam 1 mg PO DAILY PRN metformin ER 1,000 mg (2 x 500 mg) PO ONCE 90 days miscellaneous medical supply 3-prong cane for stability omega 0-qly-xat-fish oil 1,000 (120-180) mg (Fish Oil) 2 caps PO DAILY 30 days omeprazole 40 mg PO DAILY 90 days ondansetron 4 mg PO Q8H 4 days oxcarbazepine 600 mg PO BID pen needle, diabetic (BD Ultra-Fine Short Pen Needle) As directed promethazine 12.5 mg (10 mL) PO Q6H PRN risperidone 3 mg PO BEDTIME rizatriptan mg PO syringe with needle, safety As directed Tobacco use date assessed: 04/25/25 Dental Screening Dental Screen Date: 04/25/25 Did you have a dental visit in the last 12 months?: Yes Did you have a dental problem in the last 6 months where you did not have access to dental care?: No Was dental information given to patient?: Patient has dentist HPI HPI Comments History of Present Illness Details 39-year-old female presents for hyperten donita, diabetes, and review of recent lab results. She admits to taking her medications as prescribed without adverse reactions. She denies acute symptoms at this time. [facility] Medical History (Updated 01/25/25 @ 16:19 by Essence Perez NP) Sleep apnea Osteoarthritis Memory loss due to medical condition Hypertension High cholesterol C. difficile colitis Neuroforaminal stenosis of lumbar spine Hidradenitis suppurativa Degenerative joint disease of spine Bipolar disorder Depression Anxiety Type 2 diabetes mellitus Epilepsy Fibromyalgia, primary Migraine Surgical History Status post surgical removal of malignant neoplasm of skin Status post placement of VNS (vagus nerve stimulation) device History of eye surgery Hx of endoscopy History of laparoscopic appendectomy H/O wisdom tooth extraction Hx of tubal ligation Hx of tonsillectomy History of total hysterectomy with bilateral salpingo-oophorectomy (BSO) Hx of colonoscopy Hx laparoscopic cholecystectomy History of fundoplication Hx of section Family History Paternal Grandmother Rheumatoid arthritis Thyroid cancer Maternal Grandmother Arthritis Myocardial infarction Ovarian cyst Thyroid disease Cancer Paternal Uncle Colon cancer Mother Ovarian cyst Father Diabetes Depression Hypertension High cholesterol Skin cancer Maternal Grandfather FH: prostate cancer Paternal Grandfather Bipolar 1 disorder Social History Household Members: Family Both parents involved: No Caregiver staying overnight: No Housing: Other (Trailer) Are you a primary patient care to a significant other at home: No Do you presently have visiting nurse or other home services: No 75 years or older and lives alone: No Alcohol intake: never Patient Tobacco Use Status: Former Tobacco user e-Cigarette/Vaping Use: Never Used Second Hand Smoke Exposure: No Patient : No service: No Current occupational status: disabled Current occupational exposures/hazards: No Cognitive needs: No Hearing needs: No Vision needs: Yes Questionnaire Thrive Questionnaire Date Thrive assessed: 12/03/24 I am a: Patient What is your living situation today?: I have a steady place to live Within the past 12 months, did the food you bought not last and you didn't have the money to get more?: I choose not to answer this question Within the past 12 months, did you worry whether your food would run out before you got money to buy more?: I choose not to answer this question Do you have trouble paying for medicines?: I choose not to answer this question Do you have trouble getting transportation to medical appointments?: I choose not to answer this question Do you have trouble paying your heating and electricity bill?: I choose not to answer this question Do you have trouble taking care of your child, family member or friend?: I choose not to answer this question Do you have trouble with day-to-day activities such as bathing, preparing meals, shopping, managing finances, etc.?: I choose not to answer this question Are you currently unemployed and looking for a job?: I choose not to answer this question Are you interested in more education?: I choose not to answer this question Please select the resources that you would like help with: None Currently or been in a relationship where the following occur: No concerns reported THRIVE Score: 0 CONCEPCION-7 AMB Questionnaire CONCEPCION-7 Date CONCEPCION - 7 assessed: 12/03/24 Source: Developed by Drs. Ronnie Pelayo, Isabella Yadav, Jose A Can and colleagues, with an educational darline from [employer]. Review of Systems Const Details: Const Denies chills, Denies fatigue, Denies fever(s), Denies headache(s) and Denies weakness ENT Denies dizziness and Denies headache(s) Card Denies chest pain, Denies lightheadedness, Denies dyspnea and Denies other (Palpitations) Resp Denies cough, Denies dyspnea, Denies wheezing and Denies other ( shortness of breath) GI Denies abdominal pain, Denies melena, Denies hematochezia, Denies change in bowel habits, Denies dyspepsia and Denies nausea Denies hematuria and Denies dysuria Musc Denies abnormal gait, Denies myalgias, Denies arthralgias, Denies numbness and Denies tingling Skin/Breast Denies rash, Denies unusual bruising and Denies wounds Neuro Denies abnormal gait, Denies dizziness, Denies headache(s), Denies memory loss, Denies numbness, Denies Sensory deficit (Neuro), Denies tingling and Denies weakness Psych Denies anxiety, Denies depression, Denies memory loss Endo Denies cold intolerance, Denies fatigue, Denies heat intolerance, Denies polydipsia and Denies polyuria Aller/Immun Denies wheezing Physical exam (Primary Care) Vital Signs: Last Vital Signs Temp 98.3 F 04/25/25 15:27 Pulse 93 04/25/25 15:27 Resp 16 04/25/25 15:27 BP 167/77 H 04/25/25 15:27 Pulse Ox 96 04/25/25 15:27 Oxygen Delivery Method Room Air 04/25/25 15:27 BMI result Body Mass Index 53.6 Tobacco/Smoking Status: Tobacco use Status Tobacco use date assessed 04/25/25 04/25/25 15:30 Patient Tobacco Use Status Former Tobacco user 04/25/25 15:21 e-Cigarette/Vaping Use Never Used 04/25/25 15:21 Thrive Assessment: Date of Thrive Assessment Date Thrive assessed 12/03/24 04/25/25 15:21 Currently or been in a relationship where the following occur: No concerns reported Const Other: General: no acute distress and well developed Nutritional Appearance: well nourished Orientation/consciousness: patient oriented x3 HENMT Head: Yes normocephalic and Yes atraumatic Eyes General: appearance normal, both eyes and all related structures Pupils: Equal, round and reactive pupils present EOM: EOMs intact bilaterally Resp Effort & Inspection: normal respiratory effort Auscultation: clear to auscultation bilaterally Cardio Rate: regular rate Rhythm: regular rhythm Heart sounds: S1 normal heart sound present, S2 normal heart sound present, no gallops, no murmurs and no rubs GI Palpation (GI): No Abdominal aortic bruit present, Soft to palpation, nontender, No hepatosplenomegaly present and No Rebound tenderness present Auscultation: normal bowel sounds General: Yes no CVA tenderness Back/Spine/Pelvis Back: no CVA tenderness Cervical Spine: cervical ROM normal and No Cervical spine tenderness Thoracic/Lumbar Spine: thoraco-lumbar ROM normal, No pain with thoraco-lumbar ROM, No thoracic spinal tenderness and No lumbar spinal tenderness Extrem General: Yes normal to inspection, No edema and No calf tenderness Skin General: warm and dry. Normal skin color. Normal skin turgor Neuro General: patient oriented x3, gait normal and no focal neuro deficit Cranial nerves: Yes Equal, round and reactive pupils present Cognition (Neuro): normal cognition Gait exam (Neuro): Normal gait present Sensory Exam: No Sensory deficit (Neuro) Psych Appearance: grossly normal Affect: normal affect Attitude: cooperative Thought process: Normal thought process present Results AMB Hemoglobin A1c AMB Hemoglobin A1c 7.4 % Last Edit by Glory Hinson MA on 04/25/25 16:12 Coding Level of Care Code Est Pt Level 4 (17266) Diagnoses Primary hypertension I10 Hypertension type: primary hypertension Type 2 diabetes mellitus without complication, without long-term current use of insulin E11.9 Diabetes mellitus terminologist insulin use: without skilled nursing use Diabetes mellitus complication status: without complication High cholesterol E78.00 Vitamin D deficiency E55.9 Assessment & Plan Assessment & Plan (1) Hypertension: Code(s): I10 - Essential (primary) hypertension Category: Medical Qualifiers: Hypertension type: primary hypertension Qualified Code(s): I10 - Essential (primary) hypertension Plan: Resting blood pressure is 130/78, slightly above goal of less than 130/80. Continue current treatment regimen. Low-sodium diet encouraged. Follow-up in 2 months or sooner with symptoms or concerns. Verbalized understanding and agreed with the plan. (2) Type 2 diabetes mellitus: Code(s): E11.9 - Type 2 diabetes mellitus without complications Category: Medical Qualifiers: Diabetes mellitus terminologist insulin use: without skilled nursing use Diabetes mellitus complication status: without complication Qualified Code(s): E11.9 - Type 2 diabetes mellitus without complications Plan: A1c today is 7.4%, above goal of less than 7.0%. Previous A1c was 7.3%. Will increase Trulicity to 1.5 mg weekly; advised to administer as prescribed. Continue to take glipizide 5 mg daily and metformin 1000 mg daily. ADA diet and routine exercise encouraged. Will recheck A1c in 3 months. Verbalized understanding and agreed with the plan. (3) High cholesterol: Code(s): E78.00 - Pure hypercholesterolemia, unspecified Category: Medical Plan: Recent triglycerides level is significantly elevated, 435 from 455, HDL level is low. Will discontinue fenofibrate 160 mg daily at this time. Gemfibrozil 600 mg twice daily ordered; advised to take as prescribed. Continue to take fish oil. Advised to limit foods high in saturated fat and avoid foods high trans fat. Routine exercise encouraged. Fast for 10-12 hours, may drink water, and perform lipid panel blood work 2-3 days before next visit. Follow-up in 2 months. Verbalized understanding and agreed with the plan. (4) Vitamin D deficiency: Code(s): E55.9 - Vitamin D deficiency, unspecified Category: Medical Plan: Recent vitamin-D level is slightly low, 28.5. Encouraged to continue to take vitamin D3 50 mcg daily. Informed that the sun is a good source of vitamin D. Will recheck vitamin-D level in 2 months. Verbalized understanding and agreed with the plan. Orders: Orders AMB Hemoglobin A1c Today Z13.9 - Encounter for screening, unspecified Lipid Panel 2 Months E78.00 - Pure hypercholesterolemia, unspecified Vitamin D 25-OH Total 2 Months E55.9 - Vitamin D deficiency, unspecified Medications: New gemfibrozil 600 mg PO BID 30 days 60 tabs 3RF dulaglutide (Trulicity) 1.5 mg (0.5 mL) subcut QWEEK 2 mL 3RF Changed From metformin ER 1,000 mg (2 x 500 mg) PO ONCE 90 days 180 tabs 0RF To metformin ER 1,000 mg (2 x 500 mg) PO .QD 90 days 180 tabs 1RF Discontinued fenofibrate Discontinued Reason: Doctor's Order 160 mg PO DAILY 30 days 90 tabs 0RF dulaglutide (Trulicity) Discontinued Reason: Doctor's Order 0.75 mg (0.5 mL) subcut QWEEK 2 mL 0RF
[2025-04-25 15:27] VITALS: BP 167/77; PULSE 93; RESP 16; TEMP 36.8; O2SAT 96; BMI 53.6
[2025-04-25 16:03] VITALS: BP 130/78
--- OUTSIDE RECORDS SUMMARY | 2025-04-25 17:03 | XMS_ITS | Clinical Summary ---
Author Organization [facility] Facility Address [address] [address] Care Team Providers Care Title Clerk Automobile Name Role Phone Tom White MD Primary [...] Ended) 2025 09/22/20 18, 09/29/2017 Insurance Medicaid [place] Care Teams Title Clerk Automobile Relationship Specialty Start Date End Date Tom White MD [address] [place] [address] PCP - [facility] 02/14/23
== END 2025-04-25 16:21 | disposition home or self-care (01) ==
LOC: HO.HMCFM 15:20
PROVIDERS: PCP Nurse Practitioner Family; Visit Provider Nurse Practitioner Family
DX: I10 Essential (primary) hypertension (principal); E11.9 Type 2 diabetes mellitus without complications; E78.00 Pure hypercholesterolemia, unspecified; E55.9 Vitamin D deficiency, unspecified; Z13.9 Encounter for screening, unspecified

== ENCOUNTER → 2025-04-25 15:19 | Outpatient (BNVA) | payer OTHER, SELFPAY | PROVIDERS: PCP Nurse Practitioner Family; Visit Provider Nurse Practitioner Family | DX: I10 Essential (primary) hypertension (principal); E11.9 Type 2 diabetes mellitus without complications; E78.00 Pure hypercholesterolemia, unspecified; E55.9 Vitamin D deficiency, unspecified; Z79.84 Long term (current) use of oral hypoglycemic drugs | CPT/HCPCS: 83036; 99212 ==

== ENCOUNTER 2025-07-04 10:15 | Outpatient (REF) | payer OTHER, SELFPAY ==
--- OUTSIDE RECORDS SUMMARY | 2025-07-04 11:14 | XMS_ITS | Clinical Summary ---
Author Organization [facility] Facility Address [address] [address] Care Team Providers Care Market Research Assistant Name Role Phone Tom White MD Primary [...] 08/26/2023 08/26/2022, 04/10/2017, 02/15/2014 Influenza Vaccine (#1) 2025 09/22/2018, 2016 Insurance Medicaid [place] Care Teams Market Research Assistant Relationship Specialty Start Date End Date Tom White MD [address] [place] [address] PCP - [facility] 02/14/23
--- OUTSIDE RECORDS SUMMARY | 2025-07-04 11:14 | XMS_ITS ---
Demographics Address [address] [place] [address] [address] [place] [address] Preferred Language Unknown Marital Status Unknown Rastafarian Affiliation Unknown Race Unknown Ethnic Group Unknown Author Name [facility] Organization Unknown Care Team Organization Name Specialty Phone Email Start Date End Da te [facility] KAREN LEACH Primary Care [email or web address] 03/24/2023 4 [facility] Tom White Primary Care 02/18/202306/17 4 [facility] John Onofre Primary Care 09/24/2022 4
--- OUTSIDE RECORDS SUMMARY | 2025-07-04 11:14 | XMS_ITS | Clinical Summary ---
Author Organization [facility] it Address [address] [place] [address] Care Team Providers Care Lockstitch Pocket Setter Name Role Phone Marisela Goodrich MD Primary [...] obesity with BMI of 4 0.0-44.9, adult ([facility] V24, [facility] V28) 11/12/2024 Bipolar disorder ([facility] V24, [facility] V28) 02/15 Hyperlipidemia 02/26/2023 Poorly controlled diabetes m ellitus ([facility] V24, [facility] V28) 09/24/2022 Nocturnal hypoxemia 04/08/2022 Overview (11/12/2024): [facility] diagnostic polysomnogram 03/14/2022 weight 320; BMI 49. AHI 4. Average oxygen saturation 90% with oxygen lashaun 80%. Nocturnal hypoxemia without sleep apnea diagnosed. PLMD also noted. PLMD (periodic limb movement disorder) 2 Mild episode of recurrent ma arjun depressive disorder ([facility] V24) 03/28/2021 Migraine headache 03/28/2020 Overview (11/12/2024): Onset childhood age 9. C. difficile colitis 06/30/2019 Overview (11/12/2024): 04/03; 03/05 07/05; 01/2021; GI and ID involved; 8 wks po vanco; to start vanco with any abx tx Morbid obesity ([facility] V24, [facility] V28) 2018 Functional abdominal pain syndrome 04/07/2019 [...] related to another health condition 01/10/2012 Epilepsy ([facility] V24, [facility] V28) 07/05/2010 Overview (11/12/2024): Age 10 onset [...] Surgery Date Site/Laterality Comments SECTION 2007 PROCEDURE: PA DELIVERY ONLY; COMMENT: x 1 WISDOM TOOTH EXTRACTION age 14 PROCEDURE: HISTORICAL WISDOM TEETH EXTRACTION OTHER SURGICAL HISTORY age 5 PROCEDURE: PA STRABISMUS RECESSION/RESCJ 1 HRZNTL MUSC TUBAL LIGATION [...] Joshi COLONOSCOPY 06/2018 PROCEDURE: HISTORICAL COLONOSCOPY; COMMENT: [facility]; visually normal, biopsies negative for microscopic colitis. COLONOSCOPY 11/2017 PROCEDURE: HISTORICAL COLONOSCOPY; COMMENT: [facility]; random biopsies negative for microscopic colitis, one diminutive tubular adenoma in the sigmoid colon. ROBOTIC ASSISTED HYSTERECTOMY 12/20/2019 PROCEDURE: HISTORICAL ROBOTIC HYSTERECTOMY WITH OR WITHOUT BSO; COMMENT: [facility] total hysterectomy with bilateral salpingectomy UPPER GASTROINTESTINAL ENDOSCOPY 02/25/2012 PROCEDURE: PA UPPER GI ENDOSCOPY PERFORMED; COMMENT: Normal on PPI rx. UPPER GASTROINTESTINAL ENDOSCOPY 12/15/2016 PROCEDURE: PA UPPER GI ENDOSCOPY PERFORMED; COMMENT: Dr. Fei [...] COMMENT: nocturnal complex partial; Dr. Hensley at [facility] IBS (irritable bowel syndrome) D X:IBS [...] lump, ovarian cyst, heart problem, thyroid dz, [place] age unknown Mother Alive ovarian cyst Paternal [...] and At-Risk Patients (6 to 49 Years) (2 of 2 - PCV) 02/15/2015 02/15/2014 Breast Cancer Screening 10/14/2019 10/14/2017 DTaP,Tdap,and Td Vaccines (2 - Td or Tdap) 04/09/2020 04/09/2010 HIV Screening 10/19/2022 Hepatitis C Screening 10/19/2022 Social Influencers of Health Screening 10/19/2022 Diabetes: Blood Sugar Control Test (HGBA1C) 07/30/2023 01/27/2023 Diabetes: Annual Urine Albumin-Creatinine Ratio (uACR) 01/28/2024 01/27/2023 Diabetes: Annual GFR (Glomerular Filtration Rate) 02/27/2024 02/26/2023 Hypertension/CHF/CAD Annual BMP Blood Test 02/27/2024 02/26/2023 COVID-19 Vaccine ( season) 2024 08/26/2022, 10/19/2021, 04/07/2021, Additional history exists Depression Screening 11/17/2024 Influenza Vaccine (#1) 2025 0, 09/22/2018, 09/29/2017, Additional history exists Colorectal Cancer [...] * Annual BMP Blood Test (02/26/2023) Pathologist [facility] Annual BMP Blood Test abstracted [facility] Provider HEALTH MAINTENANCE Final Result * Urine Albumin Creatinine Ratio (01/27/2023) Pathologist [facility] Urine Albumin Creatinine Ratio abstracted Result [facility] Provider HEALTH MAINTENANCE Final Result * (ABNORMAL) Hemoglobin A1c (01/27/2023) Pathologist [facility] Hemoglobin A1C 8.4(A) <=6.5 % Blood Venous blood specimen / Unknown Result [facility] Provider LAB BLOOD ORDERABLES Mini l Result * (ABNORMAL) Lipid panel (01/27/2023) Pathologist [facility] LDL/HDL Ratio 5(A) 0 - 4 Triglycerides [...] Recently Relevant to Health Maintenance Care Teams Lockstitch Pocket Setter Relationship Specialty Start Date End Date Marisela Goodrich MD PCP - General 10/07/22
--- OUTSIDE RECORDS SUMMARY | 2025-07-04 11:14 | XMS_ITS | Clinical Summary ---
Author Organization [facility] Address [facility] [email or web address] [address] [address] Phone Care Team Providers Care Endoscopy Support Specialist Name Role Phone Alexandria Peñaloza MD Primary Care Provider + Allergies Active Allergy Reactions Criticality Noted Date Comments Gabapentin Dizziness 09/14/2021 Ketorolac Hives,Itching,Rash,S wel ling Low 09/11/2019 Latex Hives,Itching,Rash Low 04/24/2018 Midazolam Anaphylaxis,Shortnes s Of Breath High 09/11/2000 Stop breathing Sulfa (Sulfonamide Antibiotics) Anaphylaxis High 09/14/2021 Medications FREESTYLE LANCETS MISC 1 Stick. 12/19/2020 Active blood-glucose meter kit Use to check sugar daily 12/19/2020 Active insulin pen needles, disposable, 31 gauge x 5/16 Ndle 1 Device. 06/18/2021 Active ALBUTEROL INHL Activ e PROAIR HFA 90 mcg/actuation inhaler 09/02/2021 Active ARIPiprazole (ABILIFY) 5 MG tablet Take 5 mg by mouth. 09/06/2021 Active carBAMazepine (CARBATROL) 300 mg 12 hr capsule Take 600 mg by mouth. Active cholecalciferol (VITAMIN D3) 2,000 unit capsule 09/10/2021 Active cyanocobalamin (VITAMIN B-12) 1,000 mcg/mL injection Inject 1,000 mcg into the muscle. 05/30/2021 Active diphenhydrAMINE (BENADRYL ALLERGY) 25 mg tablet Active DULoxetine (CYMBALTA) 30 MG capsule 09/07/2021 Active DULoxetine (CYMBALTA) 60 MG capsule Active HYDROcodone-acet aminophen (NORCO) 5-325 mg per tablet Take 1 tablet by mouth. 08/15/2021 Active hydrocortisone 1 % lotion Active insulin glargine (LANTUS SOLOSTAR U-100 INSULIN) 100 unit/mL (3 mL) InPn injection pen Inject 10-30 Units under the skin. 06/19/2021 Active VIMPAT 150 mg Tab 08/16/2021 Active lisinopril (PRINIVIL,ZESTRI L) 20 MG tablet Take 1 tablet by mouth daily. 07/17/2021 Active loperamide HCl (LOPERAMIDE ORAL) Active LORazepam (ATIVAN) 2 MG tablet 08/23/2021 Active methocarbamoL (ROBAXIN) 750 MG tablet TAKE 1 TABLET BY MOUTH 3 TIMES DAILY NEEDED FOR (MUSCLE SPASM). 08/08/2021 Active naratriptan (AMERGE) 2.5 MG tablet 08/30/2021 Active nicotine (NICODERM CQ) 14 mg/24 hr 08/24/2021 Active nystatin cream 08/24/2021 Acti ve ondansetron (ZOFRAN) 4 MG tablet 07/30/2021 Active BD INSULIN PEN NEEDLE UF SHORT 31 gauge x 5/16 Ndle 08/29/2021 Active pregabalin (LYRICA) 50 MG capsule Take 50 mg by mouth. 09/07/2021 Active promethazine (PHENERGAN) 6.25 mg/5 mL syrup TAKE 10-20 ML BY MOUTH EVERY 6 HOURS NEEDED (NAUSEA). 08/13/2021 Active vancomycin (VANCOCIN) 125 MG capsule 07/19/2021 Active Active Problems Problem Noted Date Diagnosed Date C. difficile diarrhea 09/18/2021 Irritable bowel syndrome with diarrhea Social History Tobacco Use Types Packs/Day Years Used Date Smoking Tobacco: Some Days Smokeless Tobacco: Never Education Answer Date Recorded Are you interested in more education? Not on jonatan e 03/15/2023 Are you concerned about learning? Not on file 03/15/2023 No 03/15/2023 No 03/15/2023 Digital Access Answer Date Recorded No 04/13/2023 No 04/13/2023 No 04/13/2023 Reliable internet access at home? Not on file 04/13/2023 Device with a working camera? Not on file Comments Unknown Sex and Gender Information Value Date Recorded Sex Assigned at Female 06/27/2021 9:56 AM EDT Legal Sex Female 9:42 AM EDT Gender Identity Female 06/27/2021 9:56 AM EDT Sexual Orientation Bisexual 08/01/2021 11 :19 AM EDT Last Filed Vital Signs Vital Sign Reading Time Taken Comments Blood Pressure 136/86 09/14/2021 7:53 AM EDT Pulse 120 09/14/2021 7:53 AM EDT Temperature 36.5 C (97.7 F) 09/14/2021 7:53 AM EDT Respiratory Rate - - Oxygen Saturation 97% 09/14/2021 7:53 AM EDT Inhaled Oxygen Concentration - - Weight 147.4 kg (325 lb) 09/14/2021 7:53 AM EDT Height 172.7 cm (5' 8 ) 09/14/2021 7:53 AM EDT Body Mass Index 49.42 09/14/2021 7:53 AM EDT Plan of Treatment Health Maintenance Due Date Last Done Comments CARBAMAZEPINE (TEGRETOL) LEVEL 1984 CREATININE LEVEL 1984 POTASSIUM LEVEL 1984 DEPRESSION SCREENING 1996 SMOKING Hx and SMOKELESS TOBACCO SCREENING 1997 HEPATITIS C SCREENING 2002 HIV ONE-TIME SCREENING (18-6 5 YEARS) 2002 PAP SMEAR 2005 PNEUMOCOCCAL VACCINES (0-49 years) (2 of 2 - PCV) 10/02/2017 10/02/2016, 02/15/2014 Adult Td,Tdap Booster 04/09/2020 04/09/2010 COVID-19 VACCINE (3 - 2023-2 5 season) 2024 04/07/2021, 03/17/2021 MAMMOGRAM 2024 HEPATITIS A VACCINES Aged Out No long er eligible based on patient's age to complete this topic HIB VACCINES Aged Out No longer eligi ble based on patient's age to complete this topic MENINGOCOCCAL VACCINES (ACWY) Aged Out No longer eligible based on patient's age to complete this topic MENINGOCOCCAL VACCINES (B) Aged Out N o longer eligible based on patient's age to complete this topic Medical Devices Not on file Insurance [employer] [facility] [employer] [facility] [employer] [facility] ., [id number] [place], [place] [address] ., [address] [address] [employer] Care Teams Endoscopy Support Specialist Relationship Specialty Start Date End Date Alexandria Peñaloza MD [address] [place] [address] PCP - General Pediatrics 06/27/21 Additional Source Comments The information contained in this document represents components of the legal health record. It is not the complete legal health record.[facility]
[2025-07-04 14:34] LABS: Cholesterol 161 mg/dL (<200); HDL Cholesterol 29 mg/dL (>40); Triglycerides 248 mg/dL (<150)
== END 2025-07-04 10:16 | disposition home or self-care (01) ==
LOC: HO.WFDLDS 10:15
PROVIDERS: Visit Provider Nurse Practitioner Family
DX: E55.9 Vitamin D deficiency, unspecified (principal); E78.00 Pure hypercholesterolemia, unspecified
CPT/HCPCS: 36415; 80061; 82306

== ENCOUNTER 2025-08-22 12:48 | Outpatient (AMB) | payer OTHER, SELFPAY ==
--- NOTE | 2025-08-22 13:05 | MHC.OFFVIS ---
Intake Visit Reasons: 6m Allergies gabapentin (From NEURONTIN) Allergy (Severe, Verified 08/22/25 13:06) ANAPHYLAXIS midazolam (From VERSED) Allergy (Severe, Verified 08/22/25 13:06) ANAPHYLAXIS ketorolac (From Toradol) Adverse Reaction (Intermediate, Verified 08/22/25 13:06) Hives latex Adverse Reaction (Intermediate, Verified 08/22/25 13:06) Rash Sulfa (Sulfonamide Antibiotics) Adverse Reaction (Intermediate, Verified 08/22/25 13:06) Rash Medication List - Last Reconciled 08/22/25 by India Baeza CNP albuterol sulfate 90 mcg/actuation 2 puffs inhalation Q6H PRN blood sugar diagnostic (FreeStyle Lite Strips) POS testing TID blood-glucose meter (FreeStyle Lite Meter kit) As directed buspirone 5 mg PO TID PRN cholecalciferol (vitamin D3) 50 mcg PO DAILY 90 days cyanocobalamin (vitamin B-12) 1,000 mcg IM Q4W 90 days cyclobenzaprine 10 mg PO TID PRN dicyclomine 20 mg PO TID dulaglutide (Trulicity) 1.5 mg (0.5 mL) subcut QWEEK fluticasone furoate-vilanterol 200-25 mcg/dose (Breo Ellipta) 1 inh inhalation DAILY fluticasone propionate 50 mcg/actuation (Flonase Allergy Relief) 2 sprays intranasal DAILY 90 days gemfibrozil 600 mg PO BID 30 days glipizide 5 mg PO DAILY 90 days hydroxyzine HCl 50 mg PO BID PRN ibuprofen 600 mg PO Q8H PRN insulin glargine (Lantus Solostar U-100 Insulin) 34 units (0.34 mL) subcut QPM 90 days lacosamide 150 mg PO BID lancets (FreeStyle Lancets) POC testing TID levocetirizine 5 mg PO DAILY lisinopril 40 mg PO DAILY 90 days loperamide 2 mg PO Q6H PRN lorazepam 1 mg PO DAILY PRN metformin ER 1,000 mg (2 x 500 mg) PO .QD 90 days miscellaneous medical supply 3-prong cane for stability omega 5-wjj-fsg-fish oil 1,000 (120-180) mg (Fish Oil) 2 caps PO DAILY 30 days omeprazole 40 mg PO DAILY 90 days ondansetron 4 mg PO DAILY PRN 30 days oxcarbazepine 600 mg PO BID 90 days pen needle, diabetic As directed risperidone 3 mg PO BEDTIME rizatriptan mg PO syringe with needle, safety As directed HPI Comments Details: 40-year-old woman who was born premature in [place] with chronic intractable refractory epilepsy, 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 Her VNS battery was replaced recently and it was restarted. Seizures were happening less frequently now, about 3 a month. Seizures: no aura, whole body stiffness, grunting, little bit shaking or jerking, for 30 sed to a minute, followed by crying. Over the years she has taken multiple meds for control (carbamazepine, depakote, phenobarbital, neurontin, lyrica). She was doing okay. She was taking oxcarbazepine and Vimpat twice a day. No medication side effects. No seizure-like spells. Migraines have been okay, can be triggered by changes in the weather. Rizatriptan as needed helps. Going for some walks.?Sleep was okay. Mood was okay. [facility] Medical History (Updated 08/22/25 @ 13:09 by India Baeza CNP) Sleep apnea Osteoarthritis Memory loss due to medical condition Hypertension High cholesterol C. difficile colitis Neuroforaminal stenosis of lumbar spine Hidradenitis suppurativa Degenerative joint disease of spine Bipolar disorder Depression Anxiety Type 2 diabetes mellitus Epilepsy Fibromyalgia, primary Migraine Surgical History (Updated 08/22/25 @ 13:10 by India Baeza CNP) Status post surgical removal of malignant neoplasm of skin Status post placement of VNS (vagus nerve stimulation) device History of eye surgery Hx of endoscopy History of laparoscopic appendectomy H/O wisdom tooth extraction Hx of tubal ligation Hx of tonsillectomy History of total hysterectomy with bilateral salpingo-oophorectomy (BSO) Hx of colonoscopy Hx laparoscopic cholecystectomy History of fundoplication Hx of section Family History Paternal Grandmother Rheumatoid arthritis Thyroid cancer Maternal Grandmother Arthritis Myocardial infarction Ovarian cyst Thyroid disease Cancer Paternal Uncle Colon cancer Mother Ovarian cyst Father Diabetes Depression Hypertension High cholesterol Skin cancer Maternal Grandfather FH: prostate cancer Paternal Grandfather Bipolar 1 disorder Social History Household Members: Family Housing: Other (Trailer) Are you a primary transitional care nurse to a significant other at home: No Do you presently have visiting nurse or other home services: No Alcohol intake: never Patient Tobacco Use Status: Former Tobacco user e-Cigarette/Vaping Use: Never Used Second Hand Smoke Exposure: No service: No Current occupational status: disabled Current occupational exposures/hazards: No Cognitive needs: No Hearing needs: No Vision needs: Yes Review of Systems Const Denies chills, Denies daytime sleepiness, Reports difficulty sleeping, Denies fatigue, Denies fever(s), Denies frequent falls, Reports headache(s), Denies increased appetite, Denies poor appetite, Denies snoring, Denies weakness, Denies weight gain and Denies weight loss Eyes Denies loss of vision ENT Denies vertigo, Denies dizziness and Reports headache(s) Card Denies chest pain at rest, Denies chest pain with activity, Denies syncope, Denies leg edema and Denies palpitations Resp Denies snoring GI Denies constipation, Reports heartburn, Denies diarrhea and Denies nausea Denies urinary frequency, Denies urinary incontinence and Denies urinary urgency Musc Reports abnormal gait (balance difficulty), Denies numbness and Denies tingling Skin/Breast Denies dry skin and Denies rash Neuro Reports abnormal gait (balance difficulty), Denies vertigo, Denies dizziness, Denies syncope, Denies frequent falls, Reports headache(s), Denies lack of coordination, Denies loss of vision, Denies memory loss, Denies numbness, Denies restless legs, Denies seizure-like activity, Denies tingling, Denies paresthesias, Denies tremor(s) and Denies weakness Psych Denies anxiety, Reports depression, Denies auditory hallucinations, Denies memory loss, Denies visual hallucinations and Denies suicidal ideation Endo Denies fatigue and Denies palpitations Physical Exam Const Other: General Appearance:? normal, in no acute distress. Skin:? no rashes, no significant birthmarks. Heart:? S1, S2 normal, no murmurs. Lungs:? clear anteriorly and posteriorly. Extremities:? no edema. Psych:? alert, oriented, cognitive function intact, cooperative with exam. Neuro Other: Mental Status:?Normal attention, orientation, memory and affect.? Cranial Nerves:?Pupils are equal, round and reactive to light. External occular muscles are intact. Visual woodson are full. Face is symmetrical. Facial sensations are normal. Tongue is midline. Palate elevates symmetrically. Shoulder shrugging is normal. Hearing to bedside conversation is normal. Sensory Exam:?....? Coordination:?No ataxia,?no titubation.? Gait Exam: Cautious. Extrapyramidal System:?No tremor, rigidity with normal facial expressions.? Pronator Drift:?Not present.? Involuntary Movements:?No tremors seen.? Speech:?Normal.? Results Reviewed Results Reviewed: CPAP titration at [facility] in Sep 2023: CPAP at 13cm, or Bipap 20/15 rec Amb EEG at [facility] in 2004: bifrontal sharps and two focal electrographic seizures AMb EEG at [facility] in 2012: Frontal lobe seizures MRI brain WO at [facility] in 2012: normal (reported) Assessment & Plan Assessment & Plan (1) Epilepsy: Code(s): G40.909 - Epilepsy, unspecified, not intractable, without status epilepticus Category: Medical Qualifiers: Epilepsy type: unspecified Intractability: not intractable Status epilepticus: without status epilepticus Qualified Code(s): G40.909 - Epilepsy, unspecified, not intractable, without status epilepticus Plan: Continue oxcarbazepine 600mg 1 tablet twice a day. Continue Vimpat 150mg 1 tablet twice a day. (2) Migraine: Code(s): G43.909 - Migraine, unspecified, not intractable, without status migrainosus Category: Medical Qualifiers: Migraine type: unspecified Status migrainosus presence: without status migrainosus Intractability: not intractable Qualified Code(s): G43.909 - Migraine, unspecified, not intractable, without status migrainosus Plan: Continue rizatriptan 10mg 1 tablet as needed for migraine. Continue ondasetron 4mg 1 tablet as needed for nausea/vomiting. (3) Status post placement of VNS (vagus nerve stimulation) device: Comment: VNS implanted at [facility] by Dr. Avalos on Nov 05, 2016. Battery changed in Dec 2022 Code(s): Z96.89 - Presence of other specified functional implants Category: Surgical Plan Meds tried: Carbamazepine, Depakote, Phenobarbital, Neurontin, Lyrica, Vimpat Meds tried for migraines: sumatriptan, rizatriptan VNS implanted at [facility] by Dr. Avalos on Nov 05, 2016. Battery changed in Dec 2022 Coding Level of Care Code Est Pt Level 4 (40606) Diagnoses Nonintractable epilepsy without status epilepticus, unspecified epilepsy type G40.909 Epilepsy type: unspecified Intractability: not intractable Status epilepticus: without status epilepticus Migraine without status migrainosus, not intractable, unspecified migraine type G43.909 Migraine type: unspecified Status migrainosus presence: without status migrainosus Intractability: not intractable Status post placement of VNS (vagus nerve stimulation) device Z96.89
--- OUTSIDE RECORDS SUMMARY | 2025-08-22 15:10 | XMS_ITS | Clinical Summary ---
Author Organization [facility] Facility Address [address] [address] Care Team Providers Care Meat Blender Name Role Phone Tom White MD Primary [...] Vaccine (#1) 2025 09/22/2018, 2016 Insurance Medicaid [place] Care Teams Meat Blender Relationship Specialty Start Date End Date Tom White MD [address] [place] [address] PCP - [facility] 02/14/23
--- OUTSIDE RECORDS SUMMARY | 2025-08-22 15:10 | XMS_ITS | Clinical Summary ---
Author Organization [facility] it Address [address] [place] [address] Care Team Providers Care Mathematics Instructor Name Role Phone Marisela Goodrich MD Primary [...] obesity with BMI of 4 0.0-44.9, adult ([facility] V24, [facility] V28) 11/12/2024 Bipolar disorder ([facility] V24, [facility] V28) 02/15 Hyperlipidemia 02/26/2023 Poorly controlled diabetes m ellitus ([facility] V24, [facility] V28) 09/24/2022 Nocturnal hypoxemia 04/08/2022 Overview (11/12/2024): [facility] diagnostic polysomnogram 03/14/2022 weight 320; BMI 49. AHI 4. Average oxygen saturation 90% with oxygen lashaun 80%. Nocturnal hypoxemia without sleep apnea diagnosed. PLMD also noted. PLMD (periodic limb movement disorder) 2 Mild episode of recurrent ma arjun depressive disorder ([facility] V24) 03/28/2021 Migraine headache 03/28/2020 Overview (11/12/2024): Onset childhood age 9. C. difficile colitis 06/30/2019 Overview (11/12/2024): 04/03; 03/05 07/05; 01/2021; GI and ID involved; 8 wks po vanco; to start vanco with any abx tx Morbid obesity ([facility] V24, [facility] V28) 2018 Functional abdominal pain syndrome [...] related to another health condition 01/10/2012 Epilepsy ([facility] V24, [facility] V28) 07/05/2010 Overview (11/12/2024): Age 10 onset Hidradenitis suppurativa 06/20/2010 Gastric reflux 05/01/2010 Overview (11/12/2024): EGD 02/25/2012, nl on PPI tx. Throat symptoms eventually were diagnosed as part of the epilepsy syndrome. Manometry 05/04 w/ weak esophagus common in reflux; reflux study borderline nl; +sx correlation; stay on PPI; Dr. Adams 10/13/18 EGD w/ Grade B esophagitis Immunizations Immunization Administration Dates Next Due Influenza Quadravalent, MDCK [...] Surgery Date Site/Laterality Comments SECTION 2007 PROCEDURE: [facility] DELIVERY ONLY; COMMENT: x 1 WISDOM TOOTH EXTRACTION age 14 PROCEDURE: HISTORICAL WISDOM TEETH EXTRACTION OTHER SURGICAL HISTORY age 5 PROCEDURE: [facility] STRABISMUS RECESSION/RESCJ 1 HRZNTL MUSC TUBAL LIGATION [...] Joshi COLONOSCOPY 06/2018 PROCEDURE: HISTORICAL COLONOSCOPY; COMMENT: [facility]; visually normal, biopsies negative for microscopic colitis. COLONOSCOPY 11/2017 PROCEDURE: HISTORICAL COLONOSCOPY; COMMENT: [facility]; random biopsies negative for microscopic colitis, one diminutive tubular adenoma in the sigmoid colon. ROBOTIC ASSISTED HYSTERECTOMY 12/20/2019 PROCEDURE: HISTORICAL ROBOTIC HYSTERECTOMY WITH OR WITHOUT BSO; COMMENT: [facility] total hysterectomy with bilateral salpingectomy UPPER GASTROINTESTINAL ENDOSCOPY 02/25/2012 PROCEDURE: [facility] UPPER GI ENDOSCOPY PERFORMED; COMMENT: Normal on PPI rx. UPPER GASTROINTESTINAL ENDOSCOPY 12/15/2016 PROCEDURE: [facility] UPPER GI ENDOSCOPY PERFORMED; COMMENT: Dr. Fei [...] COMMENT: nocturnal complex partial; Dr. Hensley at [facility] IBS (irritable bowel syndrome) D X:IBS [...] of 3 - 19+ 3-dose series) 2003 HPV Vaccines (1 - 3-dose SCDM series) 2011 Pneumococcal Vaccine: Pediatrics (0 to 5 Years) [...] Hypertension/CHF/CAD Annual BMP Blood Test 02/27/2024 02/26/2023 Depression Screening 11/17/2024 COVID-19 Vaccine ( season) 2025 08/26/2022, 10/19/2021, 04/07/2021, Additional history exists Influenza Vaccine (#1) 2025 , 09/22/2018, 09/29/2017, Additional history exists Colorectal Cancer Screening: Colonoscopy 01/17/2026 01/17/2021 Cholesterol Screening (Lipid Panel) 01/28/2028 01/27/2023 RSV Immunization Adult Patients (1 - 1-dose 75+ series) 2059 HIB Vaccines Aged Out No longer eligi [...] * Annual BMP Blood Test (02/26/2023) Pathologist [facility] Annual BMP Blood Test abstracted [facility] Provider HEALTH MAINTENANCE Final Result * Urine Albumin Creatinine Ratio (01/27/2023) Pathologist [facility] Urine Albumin Creatinine Ratio abstracted [facility] Provider HEALTH MAINTENANCE Final Result * (ABNORMAL) Hemoglobin A1c (01/27/2023) [facility] Hemoglobin A1C 8.4(A) <=6.5 % Blood Venous blood specimen / Unknown [facility] Provider LAB BLOOD ORDERABLES Mini l Result * (ABNORMAL) Lipid panel (01/27/2023) [facility] LDL/HDL Ratio 5(A) 0 - 4 Triglycerides 509(A) 0 - 150 mg/dL Cholesterol 173 0 - 200 mg/dL HDL 36(A) >=40 mg/dL Blood Venous blood specimen / Unknown us Historical Provider LAB BLOOD ORDERABLES Mini l Result [...] Recently Relevant to Health Maintenance Care Teams Mathematics Instructor Relationship Specialty Start Date End Date Marisela Goodrich MD PCP - General 10/07/22
--- OUTSIDE RECORDS SUMMARY | 2025-08-22 15:10 | XMS_ITS | Clinical Summary ---
Author Organization [facility] Address [facility] [address] [address] Phone Care Team Providers Care Lacemaker Name Role Phone Alexandria Peñaloza MD Primary [...] HEPATITIS C SCREENING 2002 HIV ONE-TIME SCREENING (18-65 YEARS) 2002 PAP SMEAR 2005 PNEUMOCOCCAL VACCINES (0-49 years) (2 of 2 - PCV) 10/02/2017 10/02/2016, 02/15/2014 Adult Td,Tdap Booster 04/09/2020 04/09/2010 MAMMOGRAM 2024 INFLUENZA VACCINE (#1) 2025 , 08/15/2020, 08/31/2019, Additional history exists COVID-19 VACCINE (3 - season) 2025 04/07/2021, 03/17/2021 HEPATITIS A VACCINES Aged Out No long [...] topic Medical Devices Not on file Insurance [employer] [facility] [employer] [facility] [employer] ACO [facility] [place] [address] Care Teams Lacemaker Relationship Specialty Start Date End Date Alexandria Peñaloza MD [address] [place] [address] PCP - General Pediatrics 06/27/21 Additional Source Comments The information contained in this document represents components of the legal health record. It is not the complete legal health record.[facility]
== END 2025-08-22 13:16 | disposition home or self-care (01) ==
LOC: HO.HSM 12:49
PROVIDERS: Visit Provider Registered Nurse
DX: G40.909 Epilepsy, unspecified, not intractable, without status epilepticus (principal); G43.909 Migraine, unspecified, not intractable, without status migrainosus; Z96.89 Presence of other specified functional implants
CPT/HCPCS: 99214

== ENCOUNTER → 2025-08-22 12:48 | Outpatient (BNVA) | payer OTHER, SELFPAY | PROVIDERS: Visit Provider Registered Nurse | DX: G40.909 Epilepsy, unspecified, not intractable, without status epilepticus (principal); G43.909 Migraine, unspecified, not intractable, without status migrainosus; Z96.89 Presence of other specified functional implants; Z79.899 Other long term (current) drug therapy | CPT/HCPCS: 99212 ==

== ENCOUNTER 2025-09-30 12:05 | Outpatient (AMB) | payer OTHER, SELFPAY ==
--- NOTE | 2025-09-30 12:07 | A.OFFPC_ITS ---
Vital Signs 09/30/25 12:18 Height 5 ft 8 in Weight 341 lb 6 oz BMI 51.9 BP 124/72 Blood Pressure Location Rt brachial Position Sitting Respiration 13 Pulse 90 Pulse Source Pulse Oximeter Temp 97.5 F Temp Source Oral Pulse Oximetry (%) 96 Oxygen Delivery Method Room Air Intake Visit Reasons: f/u diabetes CLINT / from [facility] Intake Note: [facility]INT from [facility] to establish care and follow up on DM. Patient c/o clogged ear. Water Rights Specialist Required: No Allergies gabapentin (From NEURONTIN) Allergy (Severe, Verified 09/30/25 12:09) ANAPHYLAXIS midazolam (From VERSED) Allergy (Severe, Verified 09/30/25 12:09) ANAPHYLAXIS ketorolac (From Toradol) Adverse Reaction (Intermediate, Verified 09/30/25 12:09) Hives latex Adverse Reaction (Intermediate, Verified 09/30/25 12:09) Rash Sulfa (Sulfonamide Antibiotics) Adverse Reaction (Intermediate, Verified 09/30/25 12:09) Rash Medication List - Last Reconciled 09/30/25 by THOMAS Greenfield- albuterol sulfate 90 mcg/actuation 2 puffs inhalation Q6H PRN blood sugar diagnostic (FreeStyle Lite Strips) POS testing TID blood-glucose meter (FreeStyle Lite Meter kit) As directed buspirone 10 mg PO TID buspirone 10 mg PO TID cholecalciferol (vitamin D3) 50 mcg PO DAILY 90 days cyanocobalamin (vitamin B-12) 1,000 mcg IM Q4W 90 days cyclobenzaprine 10 mg PO TID PRN dicyclomine 20 mg PO TID dulaglutide (Trulicity) 1.5 mg (0.5 mL) subcut QWEEK fluticasone furoate-vilanterol 200-25 mcg/dose (Breo Ellipta) 1 inh inhalation DAILY fluticasone propionate 50 mcg/actuation (Flonase Allergy Relief) 2 sprays intranasal DAILY 90 days gemfibrozil 600 mg PO BID 30 days glipizide 5 mg PO DAILY 90 days hyoscyamine sulfate 0.25 mg PO BID ibuprofen 600 mg PO Q8H PRN insulin glargine (Lantus Solostar U-100 Insulin) 34 units (0.34 mL) subcut QPM 90 days lacosamide 150 mg PO BID lancets (FreeStyle Lancets) POC testing TID levocetirizine 5 mg PO DAILY lisinopril 40 mg PO DAILY 90 days loperamide 2 mg PO Q6H PRN lorazepam 1 mg PO DAILY PRN metformin ER 1,000 mg (2 x 500 mg) PO .QD 90 days miscellaneous medical supply 3-prong cane for stability omega 6-pyh-amj-fish oil 1,000 (120-180) mg (Fish Oil) 2 caps PO DAILY 30 days omeprazole 40 mg PO DAILY 90 days ondansetron 4 mg PO DAILY PRN 30 days oxcarbazepine 600 mg PO BID 90 days pen needle, diabetic As directed risperidone 3 mg PO BEDTIME rizatriptan mg PO syringe with needle, safety As directed venlafaxine ER 75 mg PO QAM Tobacco use date assessed: 09/30/25 Dental Screening Dental Screen Date: 09/30/25 Did you have a dental visit in the last 12 months?: Yes Did you have a dental problem in the last 6 months where you did not have access to dental care?: No Was dental information given to patient?: Patient has dentist HPI HPI Comments History of Present Illness Details 39 y/o F with major depressive disorder, Bipolar, seizures, obesity, biliary colic, DM2, HLD, seasonal allergies, BIB[place], H.S., DJD of spine,m Fibromyalgia, Migraines, Hx of CDiff, Hx of skin ca, Vit D def Status post surgical removal of malignant neoplasm of skin, placement of VNS (vagus nerve stimulation) device, eye surgery, endoscopy, laparoscopic appendectomy, wisdom tooth extraction, tubal ligation, tonsillectomy, total hysterectomy with bilateral salpingo-oophorectomy (BSO), colonoscopy, laparoscopic cholecystectomy, fundoplication, section Health Maintenance: Colon Mammo DEXA PAP Tdap 2024 Flu 09/30/25 DM Eye: Specialists: Pulm Cards first appt next week [facility] psych and counseling History of Present Illness The patient is a 39-year-old female presenting to [facility] care and for management of multiple chronic conditions, including an acute flare of chronic back pain. Lumbar spinal stenosis: - The patient has a history of back prob lems for years and is currently experiencing a flare-up for the past two days, describing the pain as awful. - A CT of the lumbar spine without contr ast on 04/07 showed diffuse degenerative changes, disc height loss and bulging, most pronounced at L3-L4, L4-L5, and L5- S1, with moderate to severe central canal stenosis at L3-L4 and moderate central canal stenosis at L4-L5. - Symptoms during flares include pain wi th bending and moving from a sitting to standing position. - Previous interventions include back in jections, prednisone, antidepressants for pain, and ibuprofen with a muscle relaxer for baseline pain. - She has a history of a bad reaction to Neurontin and is not currently followed by a store protection specialist. - Her former primary care physician had prescribed a small dose of pain medication for flares under a pain contract. Type 2 diabetes mellitus: - The patient has type 2 diabetes with a current A1c of 7.3, which is an improvement from a previous value of 8. - Her current medication regimen include s metformin 1000 mg daily, insulin Lantus 34 units in the evening, Trulicity 1.5 mg weekly, and glipizide. - She is trying to manage her diet and a ttempts to walk twice a day when her back pain allows. Anxiety: - The patient receives mental health car e from a psychiatrist and a therapist at [facility]. - She takes buspirone 10 mg three times a day for anxiety. - She was previously on escitalopram and is now taking venlafaxine. Seizure disorder: - Her seizure disorder is managed by josué berrios at [facility]. - She takes oxcarbazepine and lacosamide for her seizures. Palpitations: - The patient has a history of feeling f luttering sensations, though she has not experienced them for several months. - She has an upcoming appointment with c ardiology at [facility] for evaluation and had a prior echocardiogram for a murmur. Asthma: - The patient is followed by pulmonology . - Her breathing has improved, and she re ports her Breo inhaler is working amazingly well without side effects. Past Medical History - Type 2 diabetes mellitus - Hyperlipidemia - Vitamin D deficiency - Vitamin B12 deficiency - Seizure disorder - Hypertension - Lumbar spinal stenosis - Anxiety - Asthma - Allergic rhinitis - History of palpitations - History of heart murmur Review of Systems - Constitutional: Denies fever, chills. Reports pain. - Ears: Reports sensation of needing ear s cleaned. - Cardiovascular: Denies recent palpitat ions. - Respiratory: Denies any breathing issu es. - Musculoskeletal: Reports an acute flar e-up of chronic, severe back pain for the last two days, worsened by bending and moving from sitting to standing. - Psychiatric: Reports anxiety managed w ith medication. Physical Exam General: Well developed, well nourished, in no acute distress. Appears stated age. Head: Normocephalic, atraumatic. Ears require cleaning. Eyes: Pupils are equal, round and reactive to light and accommodation. Conjunctivae are clear. Vision grossly normal. Ears: cerumen impaction bilat cleared w/ lavage, tM intact and clear, pt tolerated Lungs: Clear to auscultation bilaterally. No rales, rhonchi or wheeze noted. Good air flow in all woodson. Heart: Regular rate and rhythm. 2/6 murmurs, click, rubs or gallops are noted. Musculoskeletal: Joints are nontender, without swelling, redness, or effusions. Unable to sit still for long periods reporting pain; slow sit to stand, holding onto Right back, guarded movements, limited exam d/t pain. Pulses: Peripheral pulses are equal and palpable bilaterally. Extremities: No clubbing, cyanosis nor edema is noted. Psych: Mood and affect appropriate. Results - Labs: HgbA1c is 7.3%. - Imaging: A CT of the lumbar spine perf ormed on 04/07/25 revealed degenerative changes with disc height loss and bulging, most pronounced at L3-L4, L4-L5, and L5-S1. There is moderate to severe central canal stenosis at L3-L4, moderate central canal stenosis at L4-L5, and neuroforaminal narrowing at multiple levels. Medical Decision Making The patient is a 39-year-old female with a complex medical history who presents to establish care and manage multiple chronic conditions, including an acute exacerbation of chronic low back pain. Her primary acute complaint is severe ba ck pain, consistent with her known history of multi-level lumbar spinal stenosis confirmed on a recent CT scan. She has tried multiple conservative treatments with limited success for flares. Given the severity and chronicity of her symptoms, a referral to a pain specialist is warranted for further evaluation and management, which may include additional imaging. In the interim, tramadol will be prescribed for breakthrough pain, with the understanding that it is a controlled substance and will require a prior authorization, which may delay access. Her type 2 diabetes is suboptimally controlled with an A1c of 7.3. To improve glycemic control and monitoring, a CGM will be ordered, as the patient is on insulin and would qualify. A nurse visit will be arranged for patient education, and a new glucometer will be provided for interim use. Her extensive medication list was reviewed and updated. Incidental findings of bilateral cerumen impaction will be addressed with in-office ear lavage, and a flu shot will be administered for health maintenance. The plan is for a follow- up visit in three months with preceding lab work to monitor her chronic conditions. Plan 1. Lumbar Spinal Stenosis - Patient is experiencing an acute flare of chronic back pain. - A referral will be placed to [facility] pain specialist for further evaluation and management. - For short-term pain relief, tramadol w ill be prescribed, to be taken as needed up to twice daily. This will not be a assisted Rx. - A prior authorization for tramadol sylvia l be submitted to the patient's insurance. - Patient may continue using cyclobenzap rine for muscle relaxation during flares. 2. Type 2 Diabetes Mellitus - Current A1c is 7.3, with a goal of les s than 7. - A continuous glucose monitor (CGM) sylvia l be ordered to improve glycemic monitoring. - The nursing team will verify insurance coverage and send the appropriate CGM device. - A nurse visit will be scheduled to pro vide education on the use of the new device. - A new glucometer and test strips will also be ordered for interim use. - Follow-up is scheduled in three months with repeat labs to be drawn one week prior. 3. Cerumen Impaction - The patient requested ear cleaning, an d bilateral cerumen impaction was noted on exam. - The nurse will perform an ear lavage i n the office today. 4. Health Maintenance - An influenza vaccine will be administe red in the office today. - The patient's extensive medication lis t was reviewed and updated. Patient Instructions - A referral has been sent to a spine sp ecialist. Their office will call you to schedule an appointment. - A prescription for tramadol has been s ent to your pharmacy for severe back pain. It may take up to a week for insurance to approve it. The pharmacy will call you when it is ready. You can take it as needed up to twice a day. - We are ordering a continuous glucose m onitor (CGM) for your diabetes. Once you receive the device, please send a message through the patient portal to schedule a training session with our nurse. - We will also order a new blood sugar m eter and test strips for you to use in the meantime. - You will receive a flu shot before you leave today. - The nurse will clean the wax from both of your ears today. - Please schedule a follow-up appointmen t in about three months. Have your lab work done one week before that visit. - If you need care or have questions bef ore your next appointment, please send a message through the patient portal rather than using the appointment request function. Consent The risks of taking tramadol, including the potential for misuse, abuse, and misappropriation, were discussed with the patient. The patient was instructed to take the medication only as needed for pain. The patient provided verbal consent to this treatment plan. Patient was informed and verbally consented to the use of an ambient scribe for clinic note documentation during this visit. Total time spent caring for the patient today was 45 minutes. This includes time spent before the visit reviewing the chart, time spent during the visit, and time spent after the visit on documentation, reviewing laboratory results, diagnostic imaging, medications, performing a medically necessary evaluation, counseling on diagnoses, care coordination, ordering appropriate tests, ordering appropriate medications, review of tests performed by other providers, reporting test results with the patient, communication with other healthcare providers. [facility] Medical History (Updated 09/30/25 @ 13:00 by Rosalia Gan [facility]) Anxiety Bipolar disorder C. difficile colitis Degenerative joint disease of spine Depression Epilepsy Fibromyalgia, primary Hidradenitis suppurativa High cholesterol Hypertension Memory loss due to medical condition Migraine Neuroforaminal stenosis of lumbar spine Osteoarthritis Sleep apnea Type 2 diabetes mellitus Surgical History (Updated 08/22/25 @ 13:10 by India Baeza [facility]) H/O wisdom tooth extraction History of eye surgery History of fundoplication History of laparoscopic appendectomy History of total hysterectomy with bilateral salpingo-oophorectomy (BSO) Hx laparoscopic cholecystectomy Hx of section Hx of colonoscopy Hx of endoscopy Hx of tonsillectomy Hx of tubal ligation Status post placement of VNS (vagus nerve stimulation) device Status post surgical removal of malignant neoplasm of skin Family History Paternal Grandmother Rheumatoid arthritis Thyroid cancer Maternal Grandmother Arthritis Myocardial infarction Ovarian cyst Thyroid disease Cancer Paternal Uncle Colon cancer Mother Ovarian cyst Father Diabetes Depression Hypertension High cholesterol Skin cancer Maternal Grandfather FH: prostate cancer Paternal Grandfather Bipolar 1 disorder Social History Household Members: Family Both parents involved: No Caregiver staying overnight: No Housing: Other Are you a primary adult live in caregiver to a significant other at home: No Do you presently have visiting nurse or other home services: No 75 years or older and lives alone: No Alcohol intake: never Patient Tobacco Use Status: Former Tobacco user e-Cigarette/Vaping Use: Never Used Second Hand Smoke Exposure: No service: No Current occupational status: disabled Current occupational exposures/hazards: No Cognitive needs: No Hearing needs: No Vision needs: Yes Questionnaire PHQ-9 Over the last 2 weeks, how often have you been bothered by any of the following problems? 1. Little interest or pleasure in doing things: several days 2. Feeling down, depressed, or hopeless: not at all 3. Trouble falling or staying asleep, or sleeping too much: several days 4. Feeling tired or having little energy: not at all 5. Poor appetite or overeating: not at all 6. Feeling bad about yourself - or that you are a failure or have let yourself or your family down: not at all 7. Trouble concentrating on things, such as reading the newspaper or watching television: not at all 8. Moving or speaking so slowly that other people could have noticed. Or the opposite - being so fidgety or restless that you have been moving around a lot more than usual: not at all 9. Thoughts that you would be better off or of hurting yourself in some way: not at all Total score: 2 Depression Screening Interpretation: Negative Depression Screening Done: Yes 62190 - PHQ-9 Billing: Yes Source: Developed by Drs. Ronnie Pelayo, Isabella Yadav, Jose A Can and colleagues, with an educational darline from [employer]. Thrive Questionnaire Date Thrive assessed: 09/30/25 I am a: Patient What is your living situation today?: I have a steady place to live Within the past 12 months, did the food you bought not last and you didn't have the money to get more?: I choose not to answer this question Within the past 12 months, did you worry whether your food would run out before you got money to buy more?: I choose not to answer this question Do you have trouble paying for medicines?: I choose not to answer this question Do you have trouble getting transportation to medical appointments?: I choose not to answer this question Do you have trouble paying your heating and electricity bill?: I choose not to answer this question Do you have trouble taking care of your child, family member or friend?: I choose not to answer this question Do you have trouble with day-to-day activities such as bathing, preparing meals, shopping, managing finances, etc.?: I choose not to answer this question Are you currently unemployed and looking for a job?: I choose not to answer this question Are you interested in more education?: I choose not to answer this question Please select the resources that you would like help with: None Currently or been in a relationship where the following occur: No concerns reported THRIVE Score: 0 CONCEPCION-7 AMB Questionnaire CONCEPCION-7 Date CONCEPCION - 7 assessed: 09/30/25 Feeling nervous, anxious, or on edge: 1 = Several days Not being able to stop or control worryin = Several days Worrying too much about different things: 1 = Several days Trouble relaxin = Several days Being so restless that it is hard to sit still: 1 = Several days Becoming easily annoyed or irritable: 1 = Several days Feeling afraid as if something awful might happen: 0 = Not at all Total CONCEPCION-7 score (0-4 normal; 5-9 mild; 10-14 moderate; 15-21 severe): 6 Source: Developed by Drs. Ronnie Pelayo, Isabella Yadav, Jose A Can and colleagues, with an educational darline from [employer]. CONCEPCION-7 Assessment Billing CONCEPCION-7 Assessment Tool: CONCEPCION-7 Assessment 70555 Physical exam (Primary Care) Vital Signs: Last Vital Signs Temp 97.5 F 09/30/25 12:18 Pulse 90 09/30/25 12:18 Resp 13 09/30/25 12:18 BP 124/72 09/30/25 12:18 Pulse Ox 96 09/30/25 12:18 Oxygen Delivery Method Room Air 09/30/25 12:18 BMI result Body Mass Index 51.9 BMI Assessment/Plan discussion: High BMI High, discussed plan: lifestyle Tobacco/Smoking Status: Tobacco use Status Tobacco use date assessed 09/30/25 09/30/25 12:09 Patient Tobacco Use Status Former Tobacco user 09/30/25 12:07 e-Cigarette/Vaping Use Never Used 09/30/25 12:07 PHQ-9: PHQ-9 Score PHQ-9: Total score 2 09/30/25 12:20 Depression Screening Interpretation: Negative Thrive Assessment: Date of Thrive Assessment Date Thrive assessed 09/30/25 09/30/25 12:07 Currently or been in a relationship where the following occur: No concerns reported Office Procedures Cerumen Removal From which ear canal was the cerumen removed: bilateral Removal: irrigation Notes: patient tolerated procedure well, no complications and ear canal clear [id number] Irrigation/Lavage Results AMB Hemoglobin A1c AMB Hemoglobin A1c 7.3 % Last Edit by Jeanna Fontanez MA on 09/30/25 12:28 Results Reviewed Results Reviewed: Laboratory Last Values Hgb A1c (Clinic) 7.3 % (4.0-6.0) H 09/30/25 12:22 Coding Level of Care Code Est Pt Level 5 (18222) Complex EM visit Add On G2211 Diagnoses Encounter to establish care Z76.89 Diabetes mellitus with complication, with long-term current use of insulin E11.8; Z79.4 Morbid obesity with BMI of 50.0-59.9, adult E66.01; Z68.43 Spinal stenosis of lumbar region without neurogenic claudication M48.061 Neurogenic claudication status: without neurogenic claudication Influenza vaccination administered at current visit Z23 Impacted cerumen of both ears H61.23 Primary hypertension I10 Hypertension type: primary hypertension Pernicious anemia D51.0 Vitamin D deficiency E55.9 Dyslipidemia E78.5 CPT Codes Office Procedure - CPT: 30646-Crq Irrigation/Lavage ([id number]) Additional Codes CONCEPCION-7 Assessment Billing - CONCEPCION-7 Assessment Tool: CONCEPCION-7 Assessment 87118 ([id number]) PHQ-9 - 80291 - PHQ-9 Billing: Yes ([id number]) Assessment & Plan Assessment & Plan (1) Encounter to establish care: Code(s): Z76.89 - Persons encountering health services in other specified circumstances (2) Diabetes mellitus with complication, with long-term current use of insulin: Comment: with BMI > 50 and HLD Code(s): E11.8 - Type 2 diabetes mellitus with unspecified complications; Z79.4 - correction (current) use of insulin Category: Medical (3) Morbid obesity with BMI of 50.0-59.9, adult: Code(s): E66.01 - Morbid (severe) obesity due to excess calories; Z68.43 - Body mass index [BMI] 50.0-59.9, adult Category: Medical (4) Lumbar canal stenosis: Code(s): M48.061 - Spinal stenosis, lumbar region without neurogenic claudication Category: Medical Qualifiers: Neurogenic claudication status: without neurogenic claudication Qualified Code(s): M48.061 - Spinal stenosis, lumbar region without neurogenic claudication (5) Influenza vaccination administered at current visit: Onset Date: ~09/30/25 Code(s): Z23 - Encounter for immunization Category: Medical (6) Impacted cerumen of both ears: Code(s): H61.23 - Impacted cerumen, bilateral Category: Medical (7) Hypertension: Code(s): I10 - Essential (primary) hypertension Category: Medical Qualifiers: Hypertension type: primary hypertension Qualified Code(s): I10 - Essential (primary) hypertension (8) Pernicious anemia: Code(s): D51.0 - Vitamin B12 deficiency anemia due to intrinsic factor deficiency Category: Medical (9) Vitamin D deficiency: Code(s): E55.9 - Vitamin D deficiency, unspecified Category: Medical (10) Dyslipidemia: Code(s): E78.5 - Hyperlipidemia, unspecified Category: Medical Plan . Orders: Orders Comprehensive Met. Panel 3 Months D51.0 - Vitamin B12 deficiency anemia due to intrinsic factor deficiency, E11.9 - Type 2 diabetes mellitus without complications, E55.9 - Vitamin D deficiency, unspecified, E78.5 - Hyper lipidemia, unspecified, I10 - Essential (primary) hypertension Lipid Panel 3 Months D51.0 - Vitamin B12 deficiency anemia due to intrinsic factor deficiency, E11.9 - Type 2 diabetes mellitus without complications, E55.9 - Vitamin D deficiency, unspecified, E78.5 - Hyperlipidemia, unspecified, I10 - Essential (primary) hypertension Microalbumin, Random (w Creat) 3 Months D51.0 - Vitamin B12 deficiency anemia due to intrinsic factor deficiency, E11.9 - Type 2 diabetes mellitus without complications, E55.9 - Vitamin D deficiency, unspecified, E78.5 - Hyperlipidemia, unspecified, I10 - Essential (primary) hypertension Vitamin B12 and Folate 3 Months D51.0 - Vitamin B12 deficiency anemia due to intrinsic factor deficiency, E11.9 - Type 2 diabetes mellitus without complications, E55.9 - Vitamin D deficiency, unspecified, E78.5 - Hyperlipidemia, unspecified, I10 - Essential (primary) hypertension Vitamin D 25-OH Total 3 Months D51.0 - Vitamin B12 deficiency anemia due to intrinsic factor deficiency, E11.9 - Type 2 diabetes mellitus without complications, E55.9 - Vitamin D deficiency, unspecified, E78.5 - Hyperlipidemia, unspecified, I10 - Essential (primary) hypertension AMB Hemoglobin A1c Today E11.9 - Type 2 diabetes mellitus without complications, Z13.9 - Encounter for screening, unspecified Hemoglobin A1c 3 Months D51.0 - Vitamin B12 deficiency anemia due to intrinsic factor deficiency, E11.9 - Type 2 diabetes mellitus without complications, E55.9 - Vitamin D deficiency, unspecified, E78.5 - Hyperlipidemia, unspecified, I10 - Essential (primary) hypertension Complete Blood Count no Diff 3 Months D51.0 - Vitamin B12 deficiency anemia due to intrinsic factor deficiency Referrals Pain Management Referral M48.061 - Spinal stenosis, lumbar region without neurogenic claudication Medications: New tramadol 25 mg PO BID PRN 30 tabs 0RF pain M48.061 - Spinal stenosis, lumbar region without neurogenic claudication
[2025-09-30 12:18] VITALS: BP 124/72; PULSE 90; RESP 13; TEMP 36.4; O2SAT 96; BMI 51.9
== END 2025-09-30 13:02 | disposition home or self-care (01) ==
LOC: HO.HMCFM 12:06
PROVIDERS: PCP Nurse Practitioner Family; Visit Provider Nurse Practitioner Family
DX: Z76.89 Persons encountering health services in other specified circumstances (principal); E11.8 Type 2 diabetes mellitus with unspecified complications; Z79.4 Long term (current) use of insulin; E66.01 Morbid (severe) obesity due to excess calories; Z68.43 Body mass index [BMI] 50.0-59.9, adult; M48.061 Spinal stenosis, lumbar region without neurogenic claudication; Z23 Encounter for immunization; H61.23 Impacted cerumen, bilateral; I10 Essential (primary) hypertension; D51.0 Vitamin B12 deficiency anemia due to intrinsic factor deficiency; E55.9 Vitamin D deficiency, unspecified; E11.9 Type 2 diabetes mellitus without complications; E78.5 Hyperlipidemia, unspecified; Z13.9 Encounter for screening, unspecified

== ENCOUNTER → 2025-09-30 12:05 | Outpatient (BNVA) | payer OTHER, SELFPAY | PROVIDERS: PCP Nurse Practitioner Family; Visit Provider Nurse Practitioner Family | DX: M48.061 Spinal stenosis, lumbar region without neurogenic claudication (principal); E11.9 Type 2 diabetes mellitus without complications; F41.9 Anxiety disorder, unspecified; G40.909 Epilepsy, unspecified, not intractable, without status epilepticus; R00.2 Palpitations; J45.909 Unspecified asthma, uncomplicated; E11.8 Type 2 diabetes mellitus with unspecified complications; E66.01 Morbid (severe) obesity due to excess calories; H61.23 Impacted cerumen, bilateral; I10 Essential (primary) hypertension; D51.0 Vitamin B12 deficiency anemia due to intrinsic factor deficiency; E55.9 Vitamin D deficiency, unspecified; E78.5 Hyperlipidemia, unspecified; Z23 Encounter for immunization; Z76.89 Persons encountering health services in other specified circumstances; Z79.4 Long term (current) use of insulin; Z68.43 Body mass index [BMI] 50.0-59.9, adult | CPT/HCPCS: 69209; 83036; 90471; 90656; 96127; 99212 ==

== ENCOUNTER 2025-10-21 15:09 | Outpatient (AMB) | payer OTHER, SELFPAY ==
[2025-10-21 15:14] VITALS: BP 142/73; PULSE 108; RESP 16; O2SAT 94; BMI 51.2
--- NOTE | 2025-10-21 15:14 | A.OFFVIS_ITS ---
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 She has a history of back pain for years without a known inciting injury, and a recent flare-up prompted an x-ray and CT scan, which revealed spinal stenosis. A CT scan from March of 2025 showed moderate to severe stenosis at L3-4. Her pain is located in the middle of her back, radiates outward, and is described variably as a stabbing sensation in the spine with surrounding muscle spasms. She reports daily pain, with intermittent severe flare-ups triggered by minimal activity such as walking. The pain does not radiate down her legs; however, she experiences discomfort and fatigue in her legs with walking, which sometimes improves with rest. She denies any numbness, tingling, or weakness in her legs. Does endorse forward flexion with walking to alleviate the fatigue in her legs. Her current pain management regimen includes ibuprofen 600 mg and Flexeril, which she finds effective for baseline pain but not for flare-ups. In the past, oxycodone was tried for flares, and a recent attempt to start tramadol was denied by her insurance. She has not had prior back injections and has not undergone physical therapy for her back in many years. The patient's medical history is also significant for fibromyalgia, epilepsy, and well-controlled bipolar disorder. She has diabetes, with recent blood glucose levels ranging from 150-200 mg/dL and an A1c of 7.1. She reports an allergy to gabapentin, which made her feel overdosed. She actively attends weekly therapy to cope with chronic pain. - Onset and Timing: The patient has had back pain for years, with recent worsening and severe flare-ups. - Character: Described as a stabbing pain in the spine, with the muscles around it locking up. - Location and Radiation: Pain is in the middle of the back and radiates outward. - Associated Symptoms: Discomfort and fatigue in the legs when walking, hip pain. - Exacerbating Factors: Walking, even short distances, can trigger a flare-up. - Relieving Factors: Sometimes improves with rest; the patient also frequently changes position or lies down to stretch her legs. - Functional Impairment: The patient is unable to walk for long distances and tends to hunch forward while walking. - Affect: The patient reports that having chronic pain is difficult and attends weekly therapy to work on reframing her thinking to help her cope mentally. - Analgesia: Current medications are ibuprofen 600 mg and Flexeril, which are effective for baseline pain but not for severe flare-ups. - Adverse Effects: The patient reports an allergy to gabapentin, stating it made her feel overdosed. - Activities of Daily Living: Her ability to walk for long distances is limited by her pain, and she often has to take breaks or use a cart. - Aberrant Drug-Related Behaviors: No aberrant drug-related behaviors were discussed. [facility] Medical History (Updated 10/24/25 @ 12:54 by Savannah Yanes APRN, KAROL) Sleep apnea Osteoarthritis Memory loss due to medical condition Hypertension High cholesterol C. difficile colitis Neuroforaminal stenosis of lumbar spine Hidradenitis suppurativa Degenerative joint disease of spine Bipolar disorder Depression Anxiety Type 2 diabetes mellitus Epilepsy Fibromyalgia, primary Migraine Surgical History (Updated 08/22/25 @ 13:10 by India Baeza CNP) Status post surgical removal of malignant neoplasm of skin Status post placement of VNS (vagus nerve stimulation) device History of eye surgery Hx of endoscopy History of laparoscopic appendectomy H/O wisdom tooth extraction Hx of tubal ligation Hx of tonsillectomy History of total hysterectomy with bilateral salpingo-oophorectomy (BSO) Hx of colonoscopy Hx laparoscopic cholecystectomy History of fundoplication Hx of section Family History Paternal Grandmother Rheumatoid arthritis Thyroid cancer Maternal Grandmother Arthritis Myocardial infarction Ovarian cyst Thyroid disease Cancer Paternal Uncle Colon cancer Mother Ovarian cyst Father Diabetes Depression Hypertension High cholesterol Skin cancer Maternal Grandfather FH: prostate cancer Paternal Grandfather Bipolar 1 disorder Social History Household Members: Family Both parents involved: No Caregiver staying overnight: No Housing: Other Are you a primary senior care specialist to a significant other at home: No Do you presently have visiting nurse or other home services: No 75 years or older and lives alone: No Alcohol intake: never Patient Tobacco Use Status: Former Tobacco user e-Cigarette/Vaping Use: Never Used Second Hand Smoke Exposure: No service: No Current occupational status: disabled Current occupational exposures/hazards: No Cognitive needs: No Hearing needs: No Vision needs: Yes Review of Systems Narrative - Musculoskeletal: Reports chronic mid-back pain, hip pain, and a history of knee arthritis. - Neurological: Reports fatigue in her legs with walking. - Neurological: Denies pain radiating down the legs, numbness, tingling, or weakness in the legs. - Psychiatric: Reports a history of well-controlled bipolar disorder and attends weekly therapy. Physical Exam Exam Exam: General: awake, alert, oriented. Answers questions appropriately. Fully engaged in examination. Skin: warm, dry, intact HEENT: Normocephalic. Hearing intact. Cardiac: External chest normal in appearance. Respiratory: No cough, audible wheezing or stridor. Abdomen: without gross distension. MS: No obvious swelling or deformities. Able to transition from sit to stand unassisted. Ambulates with bilaterally normal heel strike and toe off SLR neg bilaterally Tender to palpation midline lumbar vertebrae and paraspinal muscles Facet loading positive nontender over PSIS decreased lumbar ROM BLE strength 5/5 Neurological: Oriented to person, place, time and situation. Thought process intact. No gait abnormalities appreciated. Psychiatric: Appropriate mood and affect. Good judgment and insight. Vital Signs: Last Vital Signs Pulse 108 H 10/21/25 15:14 Resp 16 10/21/25 15:14 BP 142/73 H 10/21/25 15:14 Pulse Ox 94 10/21/25 15:14 Oxygen Delivery Method Room Air 10/21/25 15:14 BMI result Body Mass Index 51.2 Results Reviewed Results Reviewed: 03/2025 CT LS performed at [facility] Assessment & Plan Assessment & Plan (1) Degenerative joint disease of spine: Code(s): M47.9 - Spondylosis, unspecified Category: Medical Qualifiers: Spinal osteoarthritis complication: without myelopathy or radiculopathy Spinal region: lumbosacral Qualified Code(s): M47.817 - Spondylosis without myelopathy or radiculopathy, lumbosacral region (2) Lumbar degenerative disc disease: Code(s): M51.36 - Other intervertebral disc degeneration, lumbar region Category: Medical (3) Lumbar canal stenosis: Code(s): M48.061 - Spinal stenosis, lumbar region without neurogenic claudication Category: Medical Qualifiers: Neurogenic claudication status: without neurogenic claudication Q ualified Code(s): M48.061 - Spinal stenosis, lumbar region without neurogenic claudication (4) Chronic pain syndrome: Code(s): G89.4 - Chronic pain syndrome Category: Medical Plan The patient's chronic low back pain is consistent with her CT finding of moderate to severe lumbar spinal stenosis at L3-L4. Given that insurance will likely require a trial of conservative therapy, a referral for physical therapy will be placed. The patient will be referred to [facility] in [place] (d/t proximity to her home) for a course of treatment, likely twice a week for six weeks. The importance of adhering to a home exercise program was stressed. Upon completion of physical therapy, the patient will return for a follow-up visit. If she continues to experience significant pain, the next step will be a lumbar epidural steroid injection at L3-L4. It was explained that these injections are typically limited to twice a year, partly due to the risk of elevating blood sugar levels in patients with diabetes. If the steroid injection does not provide adequate relief, future options such as a neurosurgical consultation or an implantable device like a spinal cord stimulator may be considered. The plan is to avoid escalating oral pain medications at this time to prevent potential interference with her well-managed mental health treatment. Patient was informed and verbally consented to the use of an ambient scribe for clinic note documentation during this visit. Orders: Orders 2 PT Evaluation and Treatment 10/21/25 M47.817 - Spondylosis without myelopathy or radiculopathy, lumbosacral region, M48.061 - Spinal stenosis, lumbar region without neurogenic claudication, M51.36 - Other intervertebral disc degeneration, lumbar region Patient Instructions: - An order for physical therapy will be sent to [facility] in [place]. - Their office should call you to schedule an appointment. - If you do not hear from them in about two weeks, please call them to schedule. - You will likely go to therapy twice a week for six weeks. - Please be sure to do the home exercises and stretches your therapist gives you every day to get the most benefit. - Schedule a follow-up appointment in our office after you complete your course of physical therapy. - If your pain is still significant after therapy, we will discuss proceeding with a steroid injection in your back. Coding Level of Care Code New Pt Level 4 (70090) Complex visit Add On G2211 Diagnoses Spondylosis of lumbosacral region without myelopathy or radiculopathy M47.817 Spinal osteoarthritis complication: without myelopathy or radiculopathy Spinal region: lumbosacral Lumbar degenerative disc disease M51.36 Spinal stenosis of lumbar region without neurogenic claudication M48.061 Neurogenic claudication status: without neurogenic claudication Chronic pain syndrome G89.4
--- OUTSIDE RECORDS SUMMARY | 2025-10-21 19:10 | XMS_ITS | Clinical Summary ---
Author Organization [facility] Address [facility] [employer] [address] [address] Phone Care Team Providers Care Experimental Mechanic Electrical Name Role Phone Alexandria Peñaloza MD Primary [...] topic Medical Devices Not on file Insurance [employer] ALLANCE ACO [facility] ACO [facility] ONIEL [facility] ACO Care Teams Experimental Mechanic Electrical Relationship Specialty Start Date End Date Alexandria Peñaloza MD [address] [place] [address] PCP - General Pediatrics 06/27/21 Additional Source Comments The information contained in this document represents components of the legal health record. It is not the complete legal health record.[facility]
== END 2025-10-21 16:01 | disposition home or self-care (01) ==
LOC: HO.PMC 15:10
PROVIDERS: PCP Nurse Practitioner Family; Visit Provider Registered Nurse Emergency
DX: M47.817 Spondylosis without myelopathy or radiculopathy, lumbosacral region (principal); M51.369 Other intervertebral disc degeneration, lumbar region without mention of lumbar back pain or lower extremity pain; M48.061 Spinal stenosis, lumbar region without neurogenic claudication; G89.4 Chronic pain syndrome
CPT/HCPCS: 99204

== ENCOUNTER → 2025-10-21 15:09 | Outpatient (BNVA) | payer OTHER, SELFPAY | PROVIDERS: PCP Nurse Practitioner Family; Visit Provider Registered Nurse Emergency | DX: M47.817 Spondylosis without myelopathy or radiculopathy, lumbosacral region (principal); M51.369 Other intervertebral disc degeneration, lumbar region without mention of lumbar back pain or lower extremity pain; M48.061 Spinal stenosis, lumbar region without neurogenic claudication; G89.4 Chronic pain syndrome | CPT/HCPCS: 99202 ==